=== PATIENT | female | born 1960 | race Caucasian/White ===

== ENCOUNTER → 2020-03-08 | Outpatient (CLI) | payer MEDICAID, SELFPAY | LOC: M OUTALCOH 07:59 | PROVIDERS: ATTEND Psychiatry & Neurology Addiction Medicine | DX: F10.20 Alcohol dependence, uncomplicated (principal) ==

== ENCOUNTER 2020-03-28 05:15 | Inpatient (IN) | payer MEDICAID ==
[~2020-03-28] VITALS: Ht 154.9 cm; Wt 84.1 kg
[2020-03-28] VITALS (11 sets, daily range): BP systolic 101–125; BP diastolic 59–88
[2020-03-28] MEDS ORDERED: VITA100T28 PO (05:22)
[2020-03-28] MEDS ORDERED: SPIR-10 PO (05:22)
[2020-03-28] MEDS ORDERED: MUPI2OI (05:22)
[2020-03-28] MEDS ORDERED: LACT10SO (05:22)
[2020-03-28] MEDS ORDERED: POTA20TA6 PO (05:22)
[2020-03-28] MEDS ORDERED: FOLI1TAB11 PO (05:22)
[2020-03-28] MEDS ORDERED: FURO20TA2 PO (05:22)
[2020-03-28 05:53] LABS: BASO # 0.1 10^3/uL (0.0-0.2); BASO % 1.2 % (0.0-1.0); EOS # 0.1 10^3/uL (0.0-0.5); EOS % 1.8 % (0.0-3.0); HEMATOCRIT 34.7 % (36.0-47.0); HEMOGLOBIN 12.1 g/dl (12.0-15.5); LYMPH # 1.3 10^3/uL (1.5-5.0); LYMPH % 17.2 % (24.0-44.0); MEAN CORPUSCULAR HEMOGLOBIN 35.8 pg (27.0-33.0); MEAN CORPUSCULAR HGB CONC 34.9 g/dl (32.0-36.5); MEAN CORPUSCULAR VOLUME 102.7 fl (80.0-96.0); MONO # 1.2 10^3/uL (0.0-0.8); MONO % 15.4 % (0.0-5.0); PLATELET COUNT, AUTOMATED 126 10^3/uL (150-450); RED BLOOD COUNT 3.38 10^6/uL (4.00-5.40); WHITE BLOOD COUNT 7.8 10^3/uL (4.0-10.0)
[2020-03-28 06:04] LABS: INR 1.87; PROTHROMBIN TIME 21.3 SECONDS (11.8-14.0)
[2020-03-28 06:05] LABS: PARTIAL THROMBOPLASTIN TIME 44.4 SECONDS (25.0-38.4)
--- NOTE | 2020-03-28 06:44 | REP ---
Clinical: Cough and dyspnea. Comparison: None. Findings: Very subtle right basilar atelectasis and possible small right pleural effusion require correlation with auscultation. Remainder of lung larsen are well-aerated and clear. The mediastinum and cardiac silhouette are normal. No pneumothorax. Skeletal structures are intact. Impression: Subtle right basilar atelectasis and possible small right pleural effusion suspected. Electronically Signed by Harshal Vaughn MD 03/28/2020 06:36 A
[2020-03-28 06:58] LABS: ALBUMIN 2.5 GM/DL (3.2-5.2); ALT/SGPT 43 U/L (12-78); BILIRUBIN,DIRECT 2.6 MG/DL (0.0-0.2); BILIRUBIN,TOTAL 4.8 MG/DL (0.2-1.0); BLOOD UREA NITROGEN 8 MG/DL (7-18); CALCIUM LEVEL 8.2 MG/DL (8.5-10.1); CARBON DIOXIDE LEVEL 26 MEQ/L (21-32); CHLORIDE LEVEL 102 MEQ/L (98-107); CPK CREATINE PHOSPHOKINASE 92 U/L (26-192); CREATININE FOR GFR 0.59 MG/DL (0.55-1.30); GLOMERULAR FILTRATION RATE > 60.0 (>51); GLUCOSE, FASTING 95 MG/DL (70-100); MB/CK RELATIVE INDEX 2.17 (< OR =4); NT-PRO BNP 96 PG/ML (<125); POTASSIUM SERUM 3.9 MEQ/L (3.5-5.1); SODIUM LEVEL 133 MEQ/L (136-145); TOTAL PROTEIN 7.1 GM/DL (6.4-8.2); TROPONIN I 0.04 NG/ML (< 0.10)
[2020-03-28] MEDS ORDERED: NICOTINE 14 MG/24 HR TRANSDERMAL TD ONE (07:30)
[2020-03-28] MEDS ORDERED: MAGN64TASA PO (07:37)
[2020-03-28] MEDS ORDERED: LACT20EL PO (07:37)
[2020-03-28] MEDS ORDERED: FUROSEMIDE 40MG/4ML VIAL (J1940) IV ONE (07:45)
[2020-03-28] MEDS ORDERED: PHYTONADIONE 5 MG TAB PO ONE (08:30)
--- NOTE | 2020-03-28 08:32 | ECGEPIP ---
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
--- NOTE | 2020-03-28 08:33 | REP ---
Clinical: Abnormal liver function tests. Ascites. Technique: Real time lerma scale ultrasound examination using curved array transducer. Findings: The liver demonstrates a very subtle nodular contour along with mildly dilated main portal vein at approximately 14 mm diameter with normal hepatopetal flow. Moderate ascites noted. The spleen is enlarged and measures roughly 13 x 13 x 5.8 cm. Findings are most suggestive of underlying cirrhosis with portal venous hypertension. The pancreas is incompletely evaluated due to interposed bowel gas but visualized portions appear normal. The gallbladder demonstrates mild wall thickening which may be secondary to chronic ascites and cirrhosis. No cholelithiasis or biliary ductal dilatation is appreciated and the common bile duct measures 5.3 mm diameter. The bilateral kidneys are normal in reniform shape without hydronephrosis. Right kidney measures 11.7 x 5.8 x 4.5 cm. Left kidney measures 11.5 x 4.9 x 5.1 cm. Visualized abdominal aorta appears normal. Impression: 1. Findings suggesting cirrhosis and portal venous hypertension including splenomegaly and moderate ascites. Electronically Signed by Harshal Vaughn MD 03/28/2020 08:25 A
[2020-03-28 10:08] LABS: HEPATITIS B SURFACE ANTIGEN NEGATIVE (NEGATIVE)
[2020-03-28 10:36] LABS: HEPATITIS C VIRUS ABY INDEX 0.4 INDEX (<0.8)
[2020-03-28 10:37] LABS: HEPATITIS B CORE ANTIBODY IGM NEGATIVE (NEGATIVE)
[2020-03-28] MEDS: LACTULOSE 20 GM/30 ML SYRUP UD PO SCH ×2 (11:44→22:16)
[2020-03-28] MEDS: THIAMINE 100 MG TAB PO SCH (11:44)
[2020-03-28] MEDS: FOLIC ACID 1 MG TAB PO SCH (11:44)
[2020-03-28] MEDS: SPIRONOLACTONE 50 MG TAB PO SCH (11:44)
[2020-03-28 15:22] LABS: APPEARANCE, BODY FLUID CLEAR (CLEAR); ASCITES FL COLOR YELLOW (COLORLESS); SOURCE, BODY FLUID ASCITES
--- NOTE | 2020-03-28 15:45 | HPEPDOC ---
General Date of Admission Mar 28, 2020 at 09:06 Date of Service: Mar 28, 2020 Chief Complaint The patient is a 60-year-old female admitted with a reason for visit of Decompensation Of Cirrhosis Of Liver. Source: Patient History of Present Illness 60 year old female chronic alcoholic who has not seen any Physician in years started having swelling of the legs with pain in the left knee since december 2019. went to urgent care was managed for knee pain with Ibuprofens. Then noted increasing weight from January with swelling of the abdomen ultimately became really worse 2 weeks ago so went to [place] [facility] and from there was transferred to [facility] where she was admitted for 5 days diagnosed with cirrhosis of liver and had paracentesis done with removal of 7 liters last week. Was Discharged 5 days ago. however after coming home her abdominal swelling was back again and leg swelling worsened and she gained 10 lbs since discharge so narda to urgent care here in [place] yesterday and was instructed to come to the ED. She complained of pain in the abdomen which is stretching kind all over the abdomen about 3/10 in intensity, associated with pressure upward into the chest causing difficulty in breathing. She is also having 2 to 3 loose bowel movements from the lactulose. She was admitted for decompensated cirrhosis. Home Medications Scheduled Folic Acid (Folic Acid) 1 Mg Tablet, 1 MG PO DAILY, (Reported) Furosemide (Furosemide) 20 Mg Tablet, 20 MG PO DAILY, (Reported) Lactulose (Lactulose) 10 Gm/15 Ml Solution, 30 MG PO BID, (Reported) Magnesium Chloride (Mag64) 64 Mg Tablet.dr, 64 MG PO BID, (Reported) Potassium Chloride (Potassium Chloride) 20 Meq Tab.er.prt, 20 MEQ PO DAILY, (Reported) Spironolactone (Spironolactone) 25 Mg Tablet, 25 MG PO DAILY, (Reported) Thiamine Mononitrate (Vit B1) (Vitamin B-1) 100 Mg Tablet, 100 MG PO DAILY, (Reported) Allergies Coded Allergies: No Known Allergies (Unverified , 03/28/20) Past Medical History Medical History Alcoholic cirrhosis , Heavy alcohol use for years. Family History Significant Family History: Cancer (maternal uncle), Heart disease (father) Social History * Smoker: current smoker Alcohol: sober (for 11 days. ) Drugs: denies A-FIB/CHADSVASC A-FIB History Current/History of A-Fib/PAF?: No Review of Systems Constitutional: Reports: Fatigue; Denies: Chills, Fever, Night Sweats Eyes: Denies: Pain, Vision change ENT: Denies: Head Aches, Ear Pain, Dysphagia Skin: Denies: Rash, Lesions, Breakdown Pulmonary: Reports: Dyspnea Cardiovascular: Reports: Edema; Denies: Chest Pain, Palpitations, Orthopnea, Paroxysmal Noc. Dyspnea, Lt Headedness Gastrointestinal: Reports: Abdominal Pain, Diarrhea Genitourinary: Denies: Dysuria, Frequency, Incontinence, Retention Hematologic: Denies: Bruising, Bleeding Excessively Musculoskeletal: Reports: Back Pain, Joint Pain; Denies: Neck Pain, Muscle Pain, Spasms Physical Examination General Exam: Positive: Alert, Cooperative, No Acute Distress Eye Exam: Positive: PERRLA, Conjunctiva & lids normal, EOMI; Negative: Sclera icteric ENT Exam: Positive: Atraumatic, Mucous membr. moist/pink, Pharynx Normal Neck Exam: Positive: Supple; Negative: JVD, thyromegaly Chest Exam: Positive: Clear to auscultation, Normal air movement Heart Exam: Positive: Rate Normal, Regular Rhythm, Normal S1, Normal S2; Negative: Murmurs, Rubs Abdomen Exam: Positive: Normal bowel sounds, Soft, Other (massive ascites.); Negative: Hepatospenomegaly Extremity Exam: Positive: Edema Skin Exam: Positive: Nl turgor and temperature; Negative: Breakdown, Lesion Vital Signs Vital Signs Date Time Temp Pulse Resp B/P (MAP) Pulse Ox O2 Delivery O2 Flow Rate FiO2 03/28/20 15:06 110 18 100 Room Air 03/28/20 14:11 97.6 03/28/20 14:00 109/73 Laboratory Data Labs 24H Laboratory Tests 2 03/28/20 05:44: Immature Granulocyte % (Auto) 0.4, Neutrophils (%) (Auto) 64.0, Lymphocytes (%) (Auto) 17.2L, Monocytes (%) (Auto) 15.4H, Eosinophils (%) (Auto) 1.8, Basophils (%) (Auto) 1.2H, Neutrophils # (Auto) 5.0, Lymphocytes # (Auto) 1.3L, Monocytes # (Auto) 1.2H, Eosinophils # (Auto) 0.1, Basophils # (Auto) 0.1, Nucleated Red Blood Cells % (auto) 0.0, Prothrombin Time 21.3H, Prothromb Time International Ratio 1.87, Activated Partial Thromboplast Time 44.4H, Anion Gap 5L, Glomerular Filtration Rate > 60.0, Calcium Level 8.2L, Total Bilirubin 4.8H, Direct Bilirubin 2.6H, Aspartate Amino Transf (AST/SGOT) 115H, Alanine Aminotransferase (ALT/SGPT) 43, Alkaline Phosphatase 152H, Ammonia 15, Total Creatine Kinase 92, Creatine Kinase MB 2.0, Creatine Kinase MB Relative Index 2.17, Troponin I 0.04, PZ-Dqp-F-Type Natriuretic Peptide 96, Total Protein 7.1, Albumin 2.5L, Albumin/Globulin Ratio 0.5L, Hepatitis B Surface Antigen NEGATIVE, Hepatitis B Core IgM Antibody NEGATIVE, Hepatitis C Antibody Index 0.4 03/28/20 15:00: CBC/BMP Laboratory Tests 03/28/20 05:44 Microbiology Microbiology 03/28/20 Gram Stain, Received Pending 03/28/20 Body Fluid Culture, Received Pending Assessment/Plan 60 year old female chronic alcoholic who has not seen any Physician in years started having swelling of the legs with pain in the left knee since december 2019. went to urgent care was managed for knee pain with Ibuprofens. Then noted increasing weight from January with swelling of the abdomen ultimately became really worse 2 weeks ago so went to [place] [facility] and from there was transferred to [facility] where she was admitted for 5 days diagnosed with cirrhosis of liver and had paracentesis done with removal of 7 liters last week. Was Discharged 5 days ago. however after coming home her abdominal swelling was back again and leg swelling worsened and she gained 10 lbs since discharge so narda to urgent care here in [place] yesterday and was instructed to come to the ED. She complained of pain in the abdomen which is stretching kind all over the a bdomen about 3/10 in intensity, associated with pressure upward into the chest causing difficulty in breathing. She is also having 2 to 3 loose bowel movements from the lactulose. She was admitted for decompensated cirrhosis. Decompensated Cirrhosis with ascites, portal hypertension, coagulopathy Alcoholic MELD-S score is 23. will arrange for paracentesis today. US abdomen shows portal hypertension and moderate ascites. hepatitis panel negative. received lasix this am continue with spironolactone 50 and lasix 40 mg daily. continue with lactulose GI consult Coagulopathy related to cirrhosis will give FFP and vit k. Hyponatremia due to cirrhosis. Alcohol use disorder sober for 11 days. continue thiamine and folate. Plan / VTE VTE Prophylaxis Ordered?: Yes DELL PRECIADO MD Mar 28, 2020 15:45
[2020-03-28 16:02] LABS: SOURCE, BODY FLUID ALBUMIN ASCITES; SOURCE, BODY FLUID GLUCOSE ASCITES; SOURCE, BODY FLUID TOT PROTEIN ASCITES
--- NOTE | 2020-03-28 17:19 | REP ---
Ultrasound-guided paracentesis The procedure was performed under the direct supervision of Dr. Galan. The risks and benefits of the procedure were explained to the patient and informed consent was obtained. The largest pocket of fluid was localized in the left flank using ultrasound guidance. The skin was prepped and draped in a sterile fashion. 1% lidocaine was used as a local anesthetic. An 8-Polish multi side-hole catheter was inserted using trocar technique. 10,400 ml of yellow fluid was withdrawn with a sample sent to the lab for analysis. The patient tolerated the procedure well and there were no immediate complications. After the appropriate amount of monitored convalescence the patient was discharged from the department. Electronically Signed by HECTOR Garcia 03/28/2020 04:15 P Electronically Signed by Drew Galan MD 03/28/2020 05:08 P
[2020-03-28 17:58] LABS: INR 1.73
[2020-03-28] MEDS: PERCOCET 5MG/325MG TAB PO PRN (23:44)
[2020-03-29] VITALS (10 sets, daily range): BP systolic 105–138; BP diastolic 62–78
[2020-03-29 06:31] LABS: BASO # 0.1 10^3/uL (0.0-0.2); BASO % 0.8 % (0.0-1.0); EOS # 0.3 10^3/uL (0.0-0.5); EOS % 3.4 % (0.0-3.0); HEMOGLOBIN 11.4 g/dl (12.0-15.5); LYMPH # 1.8 10^3/uL (1.5-5.0); LYMPH % 23.4 % (24.0-44.0); MEAN CORPUSCULAR HEMOGLOBIN 36.2 pg (27.0-33.0); MEAN CORPUSCULAR HGB CONC 34.5 g/dl (32.0-36.5); MEAN CORPUSCULAR VOLUME 104.8 fl (80.0-96.0); MONO # 1.1 10^3/uL (0.0-0.8); MONO % 14.5 % (0.0-5.0); NEUTROPHILS # 4.4 10^3/uL (1.5-8.5); NEUTROPHILS % 57.5 % (36.0-66.0); PLATELET COUNT, AUTOMATED 119 10^3/uL (150-450); RED BLOOD COUNT 3.15 10^6/uL (4.00-5.40); WHITE BLOOD COUNT 7.6 10^3/uL (4.0-10.0)
[2020-03-29 06:43] LABS: INR 1.82; PROTHROMBIN TIME 20.8 SECONDS (11.8-14.0)
[2020-03-29 06:57] LABS: ALBUMIN 2.5 GM/DL (3.2-5.2); ALT/SGPT 33 U/L (12-78); BILIRUBIN,TOTAL 5.2 MG/DL (0.2-1.0); BLOOD UREA NITROGEN 9 MG/DL (7-18); CALCIUM LEVEL 8.2 MG/DL (8.5-10.1); CARBON DIOXIDE LEVEL 27 MEQ/L (21-32); CHLORIDE LEVEL 104 MEQ/L (98-107); CREATININE FOR GFR 0.53 MG/DL (0.55-1.30); GLOMERULAR FILTRATION RATE > 60.0 (>51); GLUCOSE, FASTING 86 MG/DL (70-100); POTASSIUM SERUM 3.8 MEQ/L (3.5-5.1); SODIUM LEVEL 136 MEQ/L (136-145); TOTAL PROTEIN 6.3 GM/DL (6.4-8.2)
[2020-03-29] MEDS ORDERED: FUROSEMIDE 40MG/4ML VIAL (J1940) IV SCH (09:00)
[2020-03-29] MEDS: THIAMINE 100 MG TAB PO SCH (10:12)
[2020-03-29] MEDS: FOLIC ACID 1 MG TAB PO SCH (10:12)
[2020-03-29] MEDS: LACTULOSE 20 GM/30 ML SYRUP UD PO SCH ×4 (10:12→21:40)
[2020-03-29] MEDS: NICOTINE 14 MG/24 HR TRANSDERMAL TD SCH (10:13)
[2020-03-29] MEDS: SPIRONOLACTONE 50 MG TAB PO SCH (10:13)
[2020-03-29] MEDS: SENOKOT S TAB PO SCH ×2 (11:32→21:42)
--- NOTE | 2020-03-29 13:32 | IPNPDOC ---
Text Note Date of Service The patient was seen on 03/29/20. NOTE Subjective: Feeling much better today. Sob is resolved. Had paracentesis yest erday > 10 liters removed. Started on albumin after paracentesis. Physical Exam Vitals: As below General Exam: Positive: Alert, Cooperative, No Acute Distress Eye Exam: Positive: PERRLA, Conjunctiva & lids normal, EOMI; Negative: Sclera icteric ENT Exam: Positive: Atraumatic, Mucous membr. moist/pink, Pharynx Normal Neck Exam: Positive: Supple; Negative: JVD, thyromegaly Chest Exam: Positive: Clear to auscultation, Normal air movement Heart Exam: Positive: Rate Normal, Regular Rhythm, Normal S1, Normal S2; Negative: Murmurs, Rubs Abdomen Exam: Positive: Normal bowel sounds, Soft, Other (massive ascites.); Negative: Hepatospenomegaly Extremity Exam: Positive: Edema Skin Exam: Positive: Nl turgor and temperature; Negative: Breakdown, Lesion Labs and Radiology: reviewed. Assessment and Plan: 60 year old female chronic alcoholic who has not seen any Physician in years started having swelling of the legs with pain in the left knee since december 2019. went to urgent care was managed for knee pain with Ibuprofens. Then noted increasing weight from January with swelling of the abdomen ultimately became really worse 2 weeks ago so went to [place] ED and from there was transferred to [facility] where she was admitted for 5 days diagnosed with cirrhosis of liver and had paracentesis done with removal of 7 liters last week. Was Discharged 5 days ago. however after coming home her abdominal swelling was back again and leg swelling worsened and she gained 10 lbs since discharge so narda to urgent care here in [place] yesterday and was instructed to come to the ED. She complained of pain in the abdomen which is stretching kind all over the abdomen about 3/10 in intensity, associated with pressure upward into the chest causing difficulty in breathing. She is also having 2 to 3 loose bowel movements from the lactulose. She was admitted for decompensated cirrhosis. Decompensated Cirrhosis with ascites, portal hypertension, coagulopathy Alcoholic MELD-S score is 23. US abdomen shows portal hypertension and moderate ascites. hepatitis panel negative. Paracentesis with > 10 l fluid removal on 03/28/20 continue albumin 25% continue lasix with spironolactone 50 Will probably need weekly paracentesis for now. Will have to set up for outpatient paracentesis continue with lactulose GI consult Coagulopathy related to cirrhosis INR remains at 1.8 not corrected after FFP and Vit K. Hyponatremia due to cirrhosis. Alcohol use disorder sober for 12 days. continue thiamine and folate. VS,Fishbone, I+O VS, Fishbone, I+O Laboratory Tests 03/29/20 06:03 Vital Signs Date Time Temp Pulse Resp B/P (MAP) Pulse Ox O2 Delivery O2 Flow Rate FiO2 03/29/20 13:10 97.2 80 16 125/76 99 Room Air I&O- Last 24 Hours up to 6 AM 03/29/20 06:00 Intake Total 1627.0 ml Output Total 975 ml Balance 652.0 ml DELL PRECIADO MD Mar 29, 2020 13:32
[2020-03-29] MEDS: FUROSEMIDE 40MG/4ML VIAL (J1940) IV SCH (17:28)
--- NOTE | 2020-03-29 19:07 | CR.PDOC ---
General Date of Consultation: Mar 29, 2020 Referring Provider: DELL HARDEN MD Attending Physician: ZION LECHUGA MD Consultation Primary physician/ hospitalist: Dr. Harden Reason for consult: Decompensated liver cirrhosis. HPI: 60 year old female patient with chronic heavy alcohol use, liver cirrhosis, recently moved from [place] to [place], not following with any Physician in years was admitted to [facility] for worsening swelling of the abdomen and legs. Patient reports she was recently in [facility] for tense abdominal distension for which she had paracentesis with removal of 7 liters (last week). She reports since coming home her abdominal swelling was back again and leg swelling worsened and she gained 10 lbs since discharge so was admitted for decompensated cirrhosis and had another therapeutic parecentesis in [facility]. Patient reports significant improvement in abdominal distention but still more than her baseline.. Patient just quit alcohol 11 days ago. Pertinent negative GI symptoms: Patient denies fever, sick contacts, recent travel, nausea, vomiting, diarrhea, loss of appetite, early satiety or unintentional weight loss. No history of hematemesis, melena or hematochezia. Review of Systems: GI: as stated above CVS: No chest pain, No palpitations, No leg swelling. RS: No Shortness of breath, No Wheezing, no cough MACHINE SEWER: No dizziness, No motor weakness, No sensory problems Hematology: No bruising, No gum bleeding, Musculoskeletal: No joint pain, ambulating well. Skin: No rash : No hematuria, No burning sensation of the urine ENT: No ear discharge/ pain, No dysphagia. Eyes: No photophobia. Jaundice Home medications: reviewed. Antithrombotic agents - None Medical h/o: As above. Surgical h/o: None on abdomen. Social h/o: Alcohol Heavy alcohol use, quit 11 days ago. , smoking Denies, IVDA/ drugs Denies Family h/o of GI cancers - None Prior Endoscopies: None Prior GI evaluations: Used to follow with [facility] in [place]. Exam: Vitals: reviewed General: Alert and oriented x 3, Mild distress from abdominal distention. HEENT: NO pallor, no icterus. Normal oropharynx, NO cervical lymph nodes. Chest: symmetric with bilateral clear air entry, CVS: S1, S2 heard, normal, no murmurs . Abdomen: Mild to moderate distension after therapeutic paracentesis, distended, no surgical scars, soft, non-tender, no palpable masses, normal bowel sounds heard. Rectal exam: Patient refused. Extremities: 3+ pitting pedal edema, pulses palpable. MACHINE SEWER: no focal motor or sensory deficits. Moves all extremities Skin: no rash. Labs: reviewed. Imaging: reviewed. Impression: - Decompensated liver cirrhosis ( CTP , MELD- NA ) Likely etiology alcohol, with uncontrolled tense ascites s/p therapeutic paracentesis today in [facility], No prior EGD, No prior encephalopathy. Recommendations: - Patient educated about the test results, possible differential diagnoses and All questions answered. - Complete alcohol cessation. Patient is recommended rehab and other resources available. Patient said she want to do it herself and she did not drink any for 11 days. - Low sodium diet ( < 2gm per day). - Titrate the diuretics suggest Lasix 40 mg twice daily and spironolactone 100 mg twice daily for now. - Close monitoring of the renal function Chem 7, Urine lytes and UA. - Nutrition supplements Thiamine, folic acid and high protein diet. - Patient educated to take high fiber diet to avoid constipation. If developing constipation to take OTC laxatives or fiber supplements. - Elective EGD for evaluation of varices. - Upon discharge please give follow upin GI clinic in 2 weeks.. Plan of care discussed with patient and primary team. Patient verbalized understanding and agreed with the plan. Vital Signs/I&O Vital Signs Date Time Temp Pulse Resp B/P (MAP) Pulse Ox O2 Delivery O2 Flow Rate FiO2 03/29/20 17:34 96.2 92 16 125/77 100 Room Air I&O- Last 24 Hours up to 6 AM 03/29/20 06:00 Intake Total 1627.0 ml Output Total 975 ml Balance 652.0 ml Laboratory Data Labs 24H Laboratory Tests 2 03/29/20 06:03: Immature Granulocyte % (Auto) 0.4, Neutrophils (%) (Auto) 57.5, Lymphocytes (%) (Auto) 23.4L, Monocytes (%) (Auto) 14.5H, Eosinophils (%) (Auto) 3.4H, Basophils (%) (Auto) 0.8, Neutrophils # (Auto) 4.4, Lymphocytes # (Auto) 1.8, Monocytes # (Auto) 1.1H, Eosinophils # (Auto) 0.3, Basophils # (Auto) 0.1, Nucleated Red Blood Cells % (auto) 0.0, Prothrombin Time 20.8H, Prothromb Time International Ratio 1.82, Anion Gap 5L, Glomerular Filtration Rate > 60.0, Calcium Level 8.2L, Total Bilirubin 5.2H, Aspartate Amino Transf (AST/SGOT) 76H, Alanine Aminotransferase (ALT/SGPT) 33, Alkaline Phosphatase 114, Total Protein 6.3L, Albumin 2.5L, Albumin/Globulin Ratio 0.7L CBC/BMP Laboratory Tests 03/29/20 06:03 Microbiology Microbiology 03/28/20 Gram Stain - Final, Resulted 03/28/20 Body Fluid Culture, Resulted Pending Allergies Coded Allergies: No Known Allergies (Unverified , 03/28/20) Home Medications Scheduled Docusate Sodium (Colace) 100 Mg Capsule, 100 MG PO BID for 30 Days, #60 Folic Acid (Folic Acid) 1 Mg Tablet, 1 MG PO DAILY, (Reported) Furosemide (Lasix) 40 Mg Tablet, 40 MG PO BID, #60 Please take at 8 am and 4 pm. Lactulose (Lactulose) 10 Gm/15 Ml Solution, 30 MG PO BID, (Reported) Spironolactone (Aldactone) 50 Mg Tablet, 100 MG PO DAILY, #30 Thiamine Mononitrate (Vit B1) (Vitamin B-1) 100 Mg Tablet, 100 MG PO DAILY, (Rep orted) ZION LECHUGA MD Mar 29, 2020 19:07
[2020-03-29] MEDS: PERCOCET 5MG/325MG TAB PO PRN (23:13)
[2020-03-30 01:03] VITALS: BP 101/56
[2020-03-30 05:20] VITALS: BP 107/71
[2020-03-30 06:00] VITALS: BP 100/57
[2020-03-30 06:10] LABS: BASO # 0.1 10^3/uL (0.0-0.2); BASO % 0.9 % (0.0-1.0); EOS # 0.1 10^3/uL (0.0-0.5); EOS % 2.1 % (0.0-3.0); HEMATOCRIT 31.6 % (36.0-47.0); HEMOGLOBIN 10.7 g/dl (12.0-15.5); LYMPH # 1.3 10^3/uL (1.5-5.0); LYMPH % 19.6 % (24.0-44.0); MEAN CORPUSCULAR HEMOGLOBIN 35.2 pg (27.0-33.0); MEAN CORPUSCULAR HGB CONC 33.9 g/dl (32.0-36.5); MEAN CORPUSCULAR VOLUME 103.9 fl (80.0-96.0); MONO # 0.9 10^3/uL (0.0-0.8); MONO % 12.9 % (0.0-5.0); NEUTROPHILS # 4.3 10^3/uL (1.5-8.5); NEUTROPHILS % 64.1 % (36.0-66.0); PLATELET COUNT, AUTOMATED 110 10^3/uL (150-450); RED BLOOD COUNT 3.04 10^6/uL (4.00-5.40); WHITE BLOOD COUNT 6.7 10^3/uL (4.0-10.0)
[2020-03-30 06:41] LABS: ALBUMIN 2.8 GM/DL (3.2-5.2); ALT/SGPT 31 U/L (12-78); BILIRUBIN,TOTAL 5.1 MG/DL (0.2-1.0); BLOOD UREA NITROGEN 11 MG/DL (7-18); CARBON DIOXIDE LEVEL 28 MEQ/L (21-32); CHLORIDE LEVEL 101 MEQ/L (98-107); CREATININE FOR GFR 0.64 MG/DL (0.55-1.30); GLOMERULAR FILTRATION RATE > 60.0 (>51); GLUCOSE, FASTING 101 MG/DL (70-100); POTASSIUM SERUM 3.3 MEQ/L (3.5-5.1); SODIUM LEVEL 137 MEQ/L (136-145); TOTAL PROTEIN 6.2 GM/DL (6.4-8.2)
[2020-03-30 07:32] VITALS: BP 94/64
[2020-03-30] MEDS ORDERED: COLA100C5 PO (07:54)
[2020-03-30] MEDS ORDERED: LASI40TA9 PO (07:54)
[2020-03-30] MEDS ORDERED: ALDA50TA2 PO (07:54)
[2020-03-30] MEDS ORDERED: SPIRONOLACTONE 50 MG TAB PO SCH (09:00)
[2020-03-30] MEDS: NICOTINE 14 MG/24 HR TRANSDERMAL TD SCH (09:00)
[2020-03-30] MEDS: LACTULOSE 20 GM/30 ML SYRUP UD PO SCH (09:32)
[2020-03-30] MEDS: FUROSEMIDE 40MG/4ML VIAL (J1940) IV SCH (09:33)
[2020-03-30] MEDS: FOLIC ACID 1 MG TAB PO SCH (09:35)
[2020-03-30] MEDS: THIAMINE 100 MG TAB PO SCH (09:35)
[2020-03-30] MEDS: SENOKOT S TAB PO SCH (09:35)
--- NOTE | 2020-03-31 06:55 | DS.PDOC ---
Discharge Summary General Date of Admission Mar 28, 2020 at 09:06 Date of Discharge 03/30/20 Discharge Summary PROCEDURES PERFORMED DURING STAY: Paracentesis with removal of 10.3 L DISCHARGE DIAGNOSES: Decompensated Alcoholic cirrhosis Coagulopathy related to cirrhosis Hyponatremia Alcohol use disorder COMPLICATIONS/CHIEF COMPLAINT: Decompensation Of Cirrhosis Of Liver. HOSPITAL COURSE: Labs and Radiology: reviewed. Assessment and Plan: 60 year old female chronic alcoholic who has not seen any Physician in years started having swelling of the legs with pain in the left knee since december 2019. went to urgent care was managed for knee pain with Ibuprofen. Then noted increasing weight from January with swelling of the abdomen ultimately became really worse 2 weeks ago so went to [place] ED and from there was transferred to [facility] where she was admitted for 5 days diagnosed with cirrhosis of liver and had paracentesis done with removal of 7 liters last week. Was Discharged 5 days ago. however after coming home her abdominal swelling was back again and leg swelling worsened and she gained 10 lbs since discharge so narda to urgent care here in [place] yesterday and was instructed to come to the ED. She complained of pain in the abdomen which is stretching kind all over the abdomen about 3/10 in intensity, associated with pressure upward into the chest causing difficulty in breathing. She is also having 2 to 3 loose bowel movements from the lactulose. She was admitted for decompensated cirrhosis. Decompensated Cirrhosis with ascites, portal hypertension, coagulopathy Alcoholic MELD-S score is 23. US abdomen shows portal hypertension and moderate ascites. hepatitis panel negative. Paracentesis with > 10 l fluid removal on 03/28/20 continue lasix with spironolactone 100 continue with lactulose Seen by GI, follow up set up. Coagulopathy related to cirrhosis INR remains at 1.8 not corrected after FFP and Vit K. Hyponatremia due to cirrhosis. Alcohol use disorder sober for 12 days. continue thiamine and folate. DISCHARGE MEDICATIONS: Please see below. ALLERGIES: Please see below. PHYSICAL EXAMINATION ON DISCHARGE: VITAL SIGNS: Please see below. General Exam: Positive: Alert, Cooperative, No Acute Distress Eye Exam: Positive: PERRLA, Conjunctiva & lids normal, EOMI; Negative: Sclera icteric ENT Exam: Positive: Atraumatic, Mucous membr. moist/pink, Pharynx Normal Neck Exam: Positive: Supple; Negative: JVD, thyromegaly Chest Exam: Positive: Clear to auscultation, Normal air movement Heart Exam: Positive: Rate Normal, Regular Rhythm, Normal S1, Normal S2; Negative: Murmurs, Rubs Abdomen Exam: Positive: Normal bowel sounds, Soft, Other (massive ascites.); Negative: Hepatospenomegaly Extremity Exam: Positive: Edema Skin Exam: Positive: Nl turgor and temperature; Negative: Breakdown, Lesion LABORATORY DATA: Please see below. ACTIVITY: [As tolerated]. DIET: 2 gm sodium, fluid restriction 1.5 liters. DISPOSITION: 01 Home, Self-Care. DISCHARGE INSTRUCTIONS: PMD in 1 week, Dr Pedraza in 2 weeks DISCHARGE CONDITION: [Stable]. TIME SPENT ON DISCHARGE: 35 minutes. Vital Signs/I&Os Vital Signs Date Time Temp Pulse Resp B/P (MAP) Pulse Ox O2 Delivery O2 Flow Rate FiO2 03/30/20 07:32 97.8 77 18 94/64 100 Room Air I&O- Last 24 Hours up to 6 AM 03/31/20 06:00 Intake Total 290.0 ml Output Total 0 ml Balance 290.0 ml Microbiology Microbiology 03/28/20 Gram Stain - Final, Complete 03/28/20 Body Fluid Culture - Final, Complete Discharge Medications Scheduled Docusate Sodium (Colace) 100 Mg Capsule, 100 MG PO BID Folic Acid (Folic Acid) 1 Mg Tablet, 1 MG PO DAILY, (Reported) Furosemide (Lasix) 40 Mg Tablet, 40 MG PO BID Please take at 8 am and 4 pm. Lactulose (Lactulose) 10 Gm/15 Ml Solution, 30 MG PO BID, (Reported) Spironolactone (Aldactone) 50 Mg Tablet, 100 MG PO DAILY Thiamine Mononitrate (Vit B1) (Vitamin B-1) 100 Mg Tablet, 100 MG PO DAILY, (Reported) Allergies Coded Allergies: No Known Allergies (Unverified , 03/28/20) DELL PRECIADO MD Mar 31, 2020 06:55
== END 2020-03-30 11:32 | disposition home or self-care (01) | DRG 280 ==
LOC: M ED 05:15 → M ED INP 09:06 → ENRESERV 09:25 → M MSPAV 10:40
PROVIDERS: ADMIT Internal Medicine Nephrology; ATTEND Internal Medicine Nephrology
PROC: 0W9G30Z Drainage of Peritoneal Cavity with Drainage Device, Percutaneous Approach (ICD-10-PCS; principal; 2020-03-28 14:00)
DX: K70.31 Alcoholic cirrhosis of liver with ascites (principal); D68.4 Acquired coagulation factor deficiency; K76.6 Portal hypertension; E87.1 Hypo-osmolality and hyponatremia; Z79.899 Other long term (current) drug therapy

== ENCOUNTER 2020-04-05 08:00 | Emergency (ER) | payer MEDICAID ==
[~2020-04-05] VITALS: Ht 154.9 cm; Wt 81.9 kg
[~2020-04-05 08:00] MED LIST: ALDA50TA2 PO; COLA100C5 PO; FOLI1TAB11 PO; FURO20TA2 PO; LACT10SO; LACT20EL PO; LASI40TA9 PO; MAGN64TASA PO; MUPI2OI; POTA20TA6 PO; SPIR-10 PO; VITA100T28 PO
[2020-04-05 09:13] LABS: BASO # 0.1 10^3/uL (0.0-0.2); BASO % 0.9 % (0.0-1.0); EOS # 0.3 10^3/uL (0.0-0.5); EOS % 3.9 % (0.0-3.0); HEMATOCRIT 36.8 % (36.0-47.0); HEMOGLOBIN 13.1 g/dl (12.0-15.5); LYMPH # 1.1 10^3/uL (1.5-5.0); LYMPH % 14.8 % (24.0-44.0); MEAN CORPUSCULAR HGB CONC 35.6 g/dl (32.0-36.5); MEAN CORPUSCULAR VOLUME 101.1 fl (80.0-96.0); MONO # 0.8 10^3/uL (0.0-0.8); MONO % 10.7 % (0.0-5.0); NEUTROPHILS # 5.3 10^3/uL (1.5-8.5); NEUTROPHILS % 69.2 % (36.0-66.0); PLATELET COUNT, AUTOMATED 121 10^3/uL (150-450); RED BLOOD COUNT 3.64 10^6/uL (4.00-5.40); WHITE BLOOD COUNT 7.7 10^3/uL (4.0-10.0)
[2020-04-05] MEDS ORDERED: FURO40TA2 PO (09:17)
[2020-04-05] MEDS ORDERED: SPIR50TA4 PO (09:17)
[2020-04-05] MEDS ORDERED: DOCU100C16 PO (09:18)
[2020-04-05 09:21] LABS: INR 1.95; PARTIAL THROMBOPLASTIN TIME 43.3 SECONDS (25.0-38.4)
[2020-04-05 09:24] LABS: ALBUMIN 2.9 GM/DL (3.2-5.2); ALT/SGPT 33 U/L (12-78); BILIRUBIN,DIRECT 2.3 MG/DL (0.0-0.2); BILIRUBIN,TOTAL 4.7 MG/DL (0.2-1.0); BLOOD UREA NITROGEN 8 MG/DL (7-18); CALCIUM LEVEL 8.6 MG/DL (8.5-10.1); CARBON DIOXIDE LEVEL 30 MEQ/L (21-32); CHLORIDE LEVEL 96 MEQ/L (98-107); CK-MB VALUE MASS 1.9 NG/ML (<3.6); CPK CREATINE PHOSPHOKINASE 65 U/L (26-192); CREATININE FOR GFR 0.74 MG/DL (0.55-1.30); GLOMERULAR FILTRATION RATE > 60.0 (>51); GLUCOSE, FASTING 98 MG/DL (70-100); LIPASE 427 U/L (73-393); MB/CK RELATIVE INDEX 2.92 (< OR =4); NT-PRO BNP 87 PG/ML (<125); POTASSIUM SERUM 3.2 MEQ/L (3.5-5.1); SODIUM LEVEL 134 MEQ/L (136-145); TOTAL PROTEIN 7.7 GM/DL (6.4-8.2); TROPONIN I 0.03 NG/ML (< 0.10)
[2020-04-05] MEDS ORDERED: SODIUM BICARBONATE 8.4% INJ 50MEQ 50 ML VIAL As Ordered ONE (11:31)
[2020-04-05] MEDS ORDERED: POTASSIUM CHLORIDE 10 MEQ SR TABLET PO ONE (14:00)
[2020-04-05 14:02] VITALS: BP 110/84
--- NOTE | 2020-04-05 15:12 | REP ---
Ultrasound-guided paracentesis The procedure was performed by HECTOR Alfredo, under the direct supervision of Dr. Conn. The risks and benefits of the procedure were explained to the patient and informed consent was obtained both verbally and written. Directly prior to the start of the procedure, a formal timeout was completed in the procedure room. Under ultrasound guidance, the largest pocket of fluid in the left flank was localized and skin was marked. The skin was then prepped and draped in a sterile fashion. 11 ml of buffered lidocaine was used as a local anesthetic. Using ultrasound guidance, an 8-Faroese multi side-hole catheter was inserted using trocar technique. 8,000 mL of dark yellow colored fluid was withdrawn and discarded. The patient tolerated the procedure well and there were no immediate complications. After the appropriate monitored convalescence the patient was discharged from the department. Reviewed by HECTOR Kearns 04/05/2020 01:14 P Electronically Signed by James Conn MD 04/05/2020 03:04 P
--- NOTE | 2020-04-05 21:19 | ECGEPIP ---
[facility] - ED Test Date: 2020-04-05 Pat Name: SANA LE Department: Room: - Gender: Female [employer]: : 1960 Requested By: NIKHIL Contreras PA-C Order Number: [id number] Reading MD: Rodrigo Sheth Measurements Intervals [place] Rate: 120 P: -49 OK: 234 QRS: -29 QRSD: 99 T: 52 QT: 400 QTc: 567 Interpretive Statements SINUS TACHYCARDIA WITH FIRST DEGREE AV BLOCK ANTERIOR MYOCARDIAL INFARCTION, PROBABLY OLD INFERIOR MYOCARDIAL INFARCTION, PROBABLY OLD SIMILAR TO 03/28/20 Electronically Signed on 04-05-2020 21:19:18 EDT by Rodrigo Sheth
--- NOTE | 2020-04-06 11:03 | REP ---
Chest x-ray: Two views. History: Abdomen pain. Comparison chest x-ray: March 28, 2020. Findings: Heart is not enlarged. The lungs are well inflated and clear. The pleural angles are sharp. The aorta somewhat tortuous. Pulmonary vasculature is not increased. Impression: No active cardiopulmonary disease. Electronically Signed by Drew Galan MD 04/05/2020 09:17 A
== END 2020-04-05 14:05 | disposition home or self-care (01) ==
LOC: M ED 08:00
DX: K70.31 Alcoholic cirrhosis of liver with ascites (principal); R00.0 Tachycardia, unspecified; E80.6 Other disorders of bilirubin metabolism; E87.6 Hypokalemia; F17.200 Nicotine dependence, unspecified, uncomplicated; F31.9 Bipolar disorder, unspecified; F41.9 Anxiety disorder, unspecified; Z79.899 Other long term (current) drug therapy

== ENCOUNTER → 2020-04-11 | Outpatient (CLI) | payer MEDICAID ==
[~2020-04-11] MED LIST changes: +DOCU100C16 PO; +FURO40TA2 PO; +SPIR50TA4 PO
[2020-04-11 09:55] LABS: BLOOD UREA NITROGEN 11 MG/DL (7-18); CALCIUM LEVEL 8.4 MG/DL (8.5-10.1); CARBON DIOXIDE LEVEL 28 MEQ/L (21-32); CHLORIDE LEVEL 96 MEQ/L (98-107); GLOMERULAR FILTRATION RATE > 60.0 (>51); GLUCOSE, FASTING 111 MG/DL (70-100); MAGNESIUM LEVEL 1.7 MG/DL (1.8-2.4); PHOSPHORUS LEVEL 2.9 MG/DL (2.5-4.9); SODIUM LEVEL 130 MEQ/L (136-145); SODIUM,RANDOM URINE < 10 MEQ/L
== END ==
LOC: M LAB 08:48
PROVIDERS: ATTEND Internal Medicine Gastroenterology
DX: K70.31 Alcoholic cirrhosis of liver with ascites (principal)

== ENCOUNTER → 2020-04-18 | Outpatient (CLI) | payer OTHER, MEDICAID ==
[~2020-04-18] MED LIST changes: +CIPR500S PO; +GABA-843 PO; +HYDR-3363 PO; +PANT40TA29 PO; +TORS20TA2 PO; +TRAZ-252 PO
[2020-04-18 13:24] VITALS: BP 108/73
[2020-04-18 14:04] LABS: SOURCE, BODY FLUID TOT PROTEIN ASCITES; TOTAL PROTEIN, BODY FLUID 0.9 G/DL (NOT ESTABLISHED)
[2020-04-18 14:10] LABS: APPEARANCE, BODY FLUID HAZY (CLEAR); ASCITES FL COLOR YELLOW (COLORLESS); SOURCE, BODY FLUID ASCITES
--- NOTE | 2020-04-19 09:15 | REP ---
Ultrasound-guided paracentesis The procedure was performed under the direct supervision of Dr. Conn. The risks and benefits of the procedure were explained to the patient and informed consent was obtained. The largest pocket of fluid was localized in the right flank using ultrasound guidance. The skin was prepped and draped in a sterile fashion. 1% lidocaine was used as a local anesthetic. An 8-Maltese multi side-hole catheter was inserted using trocar technique. 8100 ml of cloudy yellow fluid was withdrawn with a sample sent to the lab for analysis. The patient tolerated the procedure well and there were no immediate complications. After the appropriate amount of monitored convalescence the patient was discharged from the department. Electronically Signed by HECTOR Garcia 04/18/2020 02:09 P Electronically Signed by James Conn MD 04/19/2020 09:07 A
[2020-04-20 08:01] LABS: SOURCE, BODY FLUID ALBUMIN ASCITES
== END ==
LOC: M IRPRO 11:38
PROVIDERS: ATTEND Internal Medicine Gastroenterology
DX: K70.31 Alcoholic cirrhosis of liver with ascites (principal)
CPT/HCPCS: 49083; 82042; 84157; 87070; 87077; 87205; 89051; 96365; P9047

== ENCOUNTER → 2020-04-27 | Outpatient (CLI) | payer OTHER ==
[~2020-04-27] MED LIST changes: +SODIUM BICARBONATE 8.4% INJ 50MEQ 50 ML VIAL As Ordered ONE
[2020-04-27 11:35] VITALS: BP 108/75
--- NOTE | 2020-04-30 10:10 | REP ---
Ultrasound-guided paracentesis The procedure was performed by HECTOR Alfredo, under the direct supervision of Dr. Conn. The risks and benefits of the procedure were explained to the patient and informed consent was obtained both verbally and written. Directly prior to the start of the procedure, a formal timeout was completed in the procedure room. Under ultrasound guidance, the largest pocket of fluid in the left flank was localized and skin was marked. The skin was then prepped and draped in a sterile fashion. 11 ml of buffered lidocaine was used as a local anesthetic. Using ultrasound guidance, an 8-Kiswahili multi side-hole catheter was inserted using trocar technique. 1,600 mL of orange/yellow colored fluid was withdrawn and discarded. The patient tolerated the procedure well and there were no immediate complications. After the appropriate monitored convalescence the patient was discharged from the department. Reviewed by HECTOR Kearns 04/27/2020 02:36 P Electronically Signed by James Conn MD 04/30/2020 10:01 A
== END ==
LOC: M IRPRO 09:35
PROVIDERS: ATTEND Internal Medicine Gastroenterology
DX: K70.31 Alcoholic cirrhosis of liver with ascites (principal)

== ENCOUNTER → 2020-05-01 | Outpatient (CLI) | payer OTHER ==
[~2020-05-01] MED LIST changes: -SODIUM BICARBONATE 8.4% INJ 50MEQ 50 ML VIAL As Ordered ONE
[2020-05-01 13:56] LABS: BLOOD UREA NITROGEN 11 MG/DL (7-18); CALCIUM LEVEL 8.4 MG/DL (8.5-10.1); CARBON DIOXIDE LEVEL 32 MEQ/L (21-32); CHLORIDE LEVEL 98 MEQ/L (98-107); CREATININE FOR GFR 0.76 MG/DL (0.55-1.30); GLOMERULAR FILTRATION RATE > 60.0 (>51); GLUCOSE, FASTING 110 MG/DL (70-100); POTASSIUM SERUM 4.5 MEQ/L (3.5-5.1); SODIUM LEVEL 132 MEQ/L (136-145)
== END ==
LOC: M LAB 12:52
PROVIDERS: ATTEND Internal Medicine Gastroenterology
DX: K70.31 Alcoholic cirrhosis of liver with ascites (principal)

== ENCOUNTER → 2020-05-04 | Outpatient (CLI) | payer OTHER | LOC: M IRPRO 12:30 | PROVIDERS: ATTEND Internal Medicine Gastroenterology | DX: K70.31 Alcoholic cirrhosis of liver with ascites (principal) ==

== ENCOUNTER → 2020-05-14 | Outpatient (CLI) | payer OTHER ==
[~2020-05-14] MED LIST changes: +SODIUM BICARBONATE 8.4% INJ 50MEQ 50 ML VIAL As Ordered ONE
--- NOTE | 2020-07-04 08:56 | REP ---
ULTRASOUND-GUIDED PARACENTESIS: The procedure was performed under the direct supervision of Dr. Galan. The risks and benefits of the procedure were explained to the patient and informed consent was obtained. PROCEDURE: The largest pocket of fluid was localized in the right flank using ultrasound guidance. The skin was prepped and draped in a sterile fashion. 1% lidocaine was used as a local anesthetic. An 8-Chilean multi-side holed catheter was inserted using trocar technique. 3050 cc of yellow fluid was withdrawn and discarded. The patient tolerated the procedure well and there were no immediate complications. After the appropriate amount of monitored convalescence, the patient was discharged from the department. AMANUEL
== END ==
LOC: M RAD 14:00 → M IRPRO 14:00
PROVIDERS: ATTEND Internal Medicine Gastroenterology
DX: K70.31 Alcoholic cirrhosis of liver with ascites (principal)

== ENCOUNTER → 2020-05-21 | Outpatient (CLI) | payer OTHER ==
[~2020-05-21] MED LIST changes: +LIDOCAINE 1% MDV 20ML VIAL As Ordered ONE
--- NOTE | 2020-07-04 08:59 | REP ---
ULTRASOUND-GUIDED PARACENTESIS This procedure was done by HECTOR Alfredo under the direct supervision of Dr. Conn. The risks and benefits of the procedure were explained to the patient and informed consent was obtained. Prior to the start of this procedure, a formal time-out was obtained and consent was obtained yet again verbally as well. The largest pocket of fluid was localized in the left flank using ultrasound guidance. The skin was prepped and draped in a sterile fashion. 11 mL of buffered Lidocaine was used as a local anesthetic. Using ultrasound guidance, an 8-welsh multi-side hole catheter was inserted using trocar technique. 3000 mL of yellow fluid was withdrawn and discarded. The patient tolerated the procedure well and there were no immediate complications. After the appropriate amount of monitored convalescence, the patient was discharged from the department. AMANUEL
== END ==
LOC: M IRPRO 10:52 → M RAD 10:52
PROVIDERS: ATTEND Internal Medicine Gastroenterology
DX: K70.31 Alcoholic cirrhosis of liver with ascites (principal)

== ENCOUNTER → 2020-05-25 | Outpatient (CLI) | payer OTHER ==
[~2020-05-25] MED LIST changes: -LIDOCAINE 1% MDV 20ML VIAL As Ordered ONE; -SODIUM BICARBONATE 8.4% INJ 50MEQ 50 ML VIAL As Ordered ONE
[2020-07-12 22:07] LABS: BASO # 0.1 10^3/uL (0.0-0.2); BASO % 0.6 % (0.0-1.0); EOS % 0.3 % (0.0-3.0); HEMATOCRIT 35.9 % (36.0-47.0); HEMOGLOBIN 12.7 g/dl (12.0-15.5); LYMPH # 1.1 10^3/uL (1.5-5.0); LYMPH % 8.6 % (24.0-44.0); MEAN CORPUSCULAR HEMOGLOBIN 34.5 pg (27.0-33.0); MEAN CORPUSCULAR HGB CONC 35.4 g/dl (32.0-36.5); MEAN CORPUSCULAR VOLUME 97.6 fl (80.0-96.0); MONO # 1.2 10^3/uL (0.0-0.8); MONO % 9.3 % (0.0-5.0); NEUTROPHILS # 9.8 10^3/uL (1.5-8.5); PLATELET COUNT, AUTOMATED 196 10^3/uL (150-450); RED BLOOD COUNT 3.68 10^6/uL (4.00-5.40); WHITE BLOOD COUNT 12.5 10^3/uL (4.0-10.0)
[2020-07-22 23:32] LABS: ALBUMIN 2.1 GM/DL (3.2-5.2); ALT/SGPT 45 U/L (12-78); BILIRUBIN,DIRECT 2.4 MG/DL (0.0-0.2); BILIRUBIN,TOTAL 4.6 MG/DL (0.2-1.0); BLOOD UREA NITROGEN 15 MG/DL (7-18); CALCIUM LEVEL 8.3 MG/DL (8.5-10.1); CARBON DIOXIDE LEVEL 31 MEQ/L (21-32); CHLORIDE LEVEL 94 MEQ/L (98-107); CREATININE FOR GFR 0.84 MG/DL (0.55-1.30); GLOMERULAR FILTRATION RATE > 60.0 (>51); GLUCOSE, FASTING 115 MG/DL (70-100); POTASSIUM SERUM 4.7 MEQ/L (3.5-5.1); SODIUM LEVEL 129 MEQ/L (136-145); TOTAL PROTEIN 7.6 GM/DL (6.4-8.2)
== END ==
LOC: M LAB 11:30
PROVIDERS: ATTEND Internal Medicine Gastroenterology
DX: K70.31 Alcoholic cirrhosis of liver with ascites (principal); K74.60 Unspecified cirrhosis of liver

== ENCOUNTER → 2020-05-31 | Outpatient (CLI) | payer OTHER ==
[2020-05-31 15:12] VITALS: BP 114/73
[2020-05-31 16:32] LABS: SOURCE, BODY FLUID TOT PROTEIN ASCITES; TOTAL PROTEIN, BODY FLUID 0.9 G/DL (NOT ESTABLISHED)
[2020-05-31 17:05] LABS: APPEARANCE, BODY FLUID CLOUDY (CLEAR); ASCITES FL COLOR YELLOW (COLORLESS); SOURCE, BODY FLUID ASCITES
--- NOTE | 2020-07-04 09:00 | REP ---
ULTRASOUND-GUIDED PARACENTESIS The procedure was performed under the direct supervision of Dr. Galan. The risks and benefits of the procedure were explained to the patient and informed consent was obtained. The largest pocket of fluid was localized in the right flank using ultrasound guidance. The skin was prepped and draped in a sterile fashion. 1% Lidocaine was used as a local anesthetic. An 8-Telugu multi-side hole catheter was inserted using trocar technique. 5000 mL of yellow fluid was withdrawn with a sample sent to the lab for analysis. The patient tolerated the procedure well and there were no immediate complications. After the appropriate amount of monitored convalescence, the patient was discharged from the department. AMANUEL
== END ==
LOC: M IRPRO 13:48
PROVIDERS: ATTEND Internal Medicine Gastroenterology
DX: K70.31 Alcoholic cirrhosis of liver with ascites (principal)
CPT/HCPCS: 49083; 84157; 89051; 96365; P9047

== ENCOUNTER → 2020-06-07 | Outpatient (CLI) | payer OTHER ==
[2020-06-07 15:15] VITALS: BP 112/70
[2020-06-07 15:36] LABS: SOURCE, BODY FLUID ALBUMIN ASCITES
[2020-06-07 15:41] LABS: SOURCE, BODY FLUID TOT PROTEIN ASCITES; TOTAL PROTEIN, BODY FLUID 0.9 G/DL (NOT ESTABLISHED)
[2020-06-07 16:34] LABS: APPEARANCE, BODY FLUID CLOUDY (CLEAR); ASCITES FL COLOR YELLOW (COLORLESS); SOURCE, BODY FLUID ASCITES
--- NOTE | 2020-06-18 12:55 | REP ---
ULTRASOUND-GUIDED PARACENTESIS The procedure was performed under the direct supervision of Dr. Galan. The risks and benefits of the procedure were explained to the patient and informed consent was obtained. The largest pocket of fluid was localized in the right flank using ultrasound guidance. The skin was prepped and draped in a sterile fashion. 1% Lidocaine was used as a local anesthetic. An 8-Latvian multi-side hole catheter was inserted using trocar technique. 4600 mL of yellow fluid was withdrawn and discarded. The patient tolerated the procedure well and there were no immediate complications. After the appropriate amount of monitored convalescence, the patient was discharged from the department. AMANUEL
== END ==
LOC: M IRPRO 13:20
PROVIDERS: ATTEND Internal Medicine Gastroenterology
DX: K70.31 Alcoholic cirrhosis of liver with ascites (principal)
CPT/HCPCS: 49083; 82042; 84157; 89051; 96374; P9047

== ENCOUNTER → 2020-06-12 | Outpatient (CLI) | payer OTHER ==
--- NOTE | 2020-07-10 08:02 | REP ---
COMPLETE ABDOMINAL ULTRASOUND CLINICAL: Cirrhosis. TECHNIQUE: Real-time lerma scale and color Doppler evaluation using curved array transducer. COMPARISON: 03/28/2020 FINDINGS: A small right pleural effusion is identified. Small to moderate amount of ascites is appreciated. The liver demonstrates a nodular contour with coarsened echotexture and shrunken appearance consistent with cirrhosis. No focal hepatic lesion identified. Visualized portions of the pancreas are unremarkable. Color Doppler interrogation demonstrates normal flow direction and wave patterns to the portal and hepatic veins. Spleen is upper limits of normal in size without focal splenic lesion identified and measures 11 cm in maximal length. The bilateral kidneys are normal in reniform shape without hydronephrosis. Right kidney measures 10.9 x 5.4 x 4.6 cm. Left kidney measures 11.7 x 5.8 x 4.9 cm. Gallbladder demonstrates small gallstones and mild chronic wall thickening to 4 mm. IMPRESSION: * Cirrhosis with ascites. Normal flow direction and wave patterns to the hepatic vasculature. No focal hepatic lesion. * Pleural effusions and small to moderate ascites. MTDD
== END ==
LOC: M RAD 06:52
PROVIDERS: ATTEND Internal Medicine Gastroenterology
DX: K70.31 Alcoholic cirrhosis of liver with ascites (principal); J90 Pleural effusion, not elsewhere classified

== ENCOUNTER → 2020-06-14 | Outpatient (CLI) | payer OTHER ==
[~2020-06-14] MED LIST changes: +SODIUM BICARBONATE 8.4% INJ 50MEQ 50 ML VIAL As Ordered ONE
[2020-06-14 15:11] LABS: APPEARANCE, BODY FLUID CLOUDY (CLEAR); ASCITES FL COLOR YELLOW (COLORLESS); SOURCE, BODY FLUID ASCITES
[2020-06-14 15:15] VITALS: BP 103/65
[2020-06-14 16:06] LABS: SOURCE, BODY FLUID ALBUMIN ASCITES
[2020-06-14 16:10] LABS: SOURCE, BODY FLUID TOT PROTEIN ASCITES; TOTAL PROTEIN, BODY FLUID 0.9 G/DL (NOT ESTABLISHED)
--- NOTE | 2020-07-10 08:04 | REP ---
ULTRASOUND-GUIDED PARACENTESIS The procedure was performed by Yu Santiago [facility], under the direct supervision of Dr. Conn. The risks and benefits of the procedure were explained to the patient and informed consent was obtained prior to the procedure. Directly prior to the start of the procedure, a formal time-out was obtained. The largest pocket of fluid was localized in the right flank using ultrasound guidance. The skin was prepped and draped in a sterile fashion. 11 mL of buffered Lidocaine was used as a local anesthetic. Using ultrasound guidance, an 8-Nigerien multi-side hole catheter was inserted using trocar technique. 6250 mL of yellow fluid was withdrawn and 200 mL was sent to the laboratory for further analysis and the rest was discarded. The patient tolerated the procedure well, and there were no immediate complications. After the appropriate amount of monitored convalescence, the patient was discharged from the department. AMANUEL
== END ==
LOC: M IRPRO 13:25
PROVIDERS: ATTEND Internal Medicine Gastroenterology
DX: K70.31 Alcoholic cirrhosis of liver with ascites (principal)
CPT/HCPCS: 49083; 82042; 84157; 89051; 96365; P9047

== ENCOUNTER → 2020-06-21 | Outpatient (CLI) | payer OTHER ==
[~2020-06-21] MED LIST changes: -SODIUM BICARBONATE 8.4% INJ 50MEQ 50 ML VIAL As Ordered ONE
[2020-06-21 12:50] VITALS: BP 112/72
[2020-06-21 13:43] LABS: SOURCE, BODY FLUID ASCITES
[2020-06-21 13:44] LABS: ASCITES FL COLOR YELLOW (COLORLESS)
[2020-06-21 13:46] LABS: APPEARANCE, BODY FLUID HAZY (CLEAR)
[2020-06-21 13:52] LABS: SOURCE, BODY FLUID ALBUMIN ASCITES
[2020-06-21 13:57] LABS: SOURCE, BODY FLUID TOT PROTEIN ASCITES; TOTAL PROTEIN, BODY FLUID 0.9 G/DL (NOT ESTABLISHED)
--- NOTE | 2020-07-12 07:47 | REP ---
ULTRASOUND-GUIDED PARACENTESIS The procedure was performed under the direct supervision of Dr. Conn. The risks and benefits of the procedure were explained to the patient and informed consent was obtained. The largest pocket of fluid was localized in the right flank using ultrasound guidance. The skin was prepped and draped in a sterile fashion. 1% Lidocaine was used as a local anesthetic. An 8-Japanese multi-side hole catheter was inserted using trocar technique. 5000 mL of yellow fluid was withdrawn with a sample sent to the lab for analysis. The patient tolerated the procedure well, and there were no immediate complications. After the appropriate amount of monitored convalescence, the patient was discharged from the department. AMANUEL
== END ==
LOC: M IRPRO 11:22
PROVIDERS: ATTEND Internal Medicine Gastroenterology
DX: K70.31 Alcoholic cirrhosis of liver with ascites (principal)
CPT/HCPCS: 49083; 82042; 84157; 89051; 96365; P9047

== ENCOUNTER → 2020-06-28 | Outpatient (CLI) | payer OTHER ==
[2020-06-28 13:12] LABS: BASO % 0.6 % (0.0-1.0); EOS # 0.1 10^3/uL (0.0-0.5); EOS % 1.9 % (0.0-3.0); HEMATOCRIT 32.4 % (36.0-47.0); HEMOGLOBIN 11.5 g/dl (12.0-15.5); LYMPH # 0.9 10^3/uL (1.5-5.0); LYMPH % 12.2 % (24.0-44.0); MEAN CORPUSCULAR HEMOGLOBIN 35.1 pg (27.0-33.0); MEAN CORPUSCULAR HGB CONC 35.5 g/dl (32.0-36.5); MEAN CORPUSCULAR VOLUME 98.8 fl (80.0-96.0); MONO # 0.9 10^3/uL (0.0-0.8); MONO % 12.4 % (0.0-5.0); NEUTROPHILS # 5.2 10^3/uL (1.5-8.5); NEUTROPHILS % 72.1 % (36.0-66.0); PLATELET COUNT, AUTOMATED 137 10^3/uL (150-450); RED BLOOD COUNT 3.28 10^6/uL (4.00-5.40); WHITE BLOOD COUNT 7.2 10^3/uL (4.0-10.0)
[2020-06-28 13:27] LABS: ALBUMIN 2.6 GM/DL (3.2-5.2); ALT/SGPT 29 U/L (12-78); BILIRUBIN,DIRECT 1.7 MG/DL (0.0-0.2); BILIRUBIN,TOTAL 3.9 MG/DL (0.2-1.0); BLOOD UREA NITROGEN 17 MG/DL (7-18); CALCIUM LEVEL 8.1 MG/DL (8.5-10.1); CARBON DIOXIDE LEVEL 29 MEQ/L (21-32); CHLORIDE LEVEL 99 MEQ/L (98-107); CREATININE FOR GFR 0.94 MG/DL (0.55-1.30); GLOMERULAR FILTRATION RATE > 60.0 (>51); GLUCOSE, FASTING 104 MG/DL (70-100); POTASSIUM SERUM 3.7 MEQ/L (3.5-5.1); SODIUM LEVEL 135 MEQ/L (136-145); TOTAL PROTEIN 6.5 GM/DL (6.4-8.2)
[2020-06-28 13:31] LABS: CREATININE,RANDOM URINE 85.8 MG/DL
== END ==
LOC: M LAB 11:14
PROVIDERS: ATTEND Internal Medicine Gastroenterology
DX: K70.31 Alcoholic cirrhosis of liver with ascites (principal)

== ENCOUNTER → 2020-06-28 | Outpatient (CLI) | payer OTHER ==
[2020-06-28 12:42] VITALS: BP 100/72
[2020-06-28 12:49] LABS: APPEARANCE, BODY FLUID CLOUDY (CLEAR); ASCITES FL COLOR YELLOW (COLORLESS); SOURCE, BODY FLUID ASCITES
[2020-06-28 12:51] LABS: SOURCE, BODY FLUID ALBUMIN ASCITES; SOURCE, BODY FLUID TOT PROTEIN ASCITES; TOTAL PROTEIN, BODY FLUID 1.1 G/DL (NOT ESTABLISHED)
--- NOTE | 2020-07-12 07:48 | REP ---
ULTRASOUND GUIDED PARACENTESIS: The procedure was performed under the direct supervision of Dr. Galan. The risks and benefits of the procedure were explained to the patient and informed consent was obtained. The largest pocket of fluid was localized in the right upper quadrant using ultrasound guidance. The skin was prepped and draped in a sterile fashion. 1% Lidocaine was used as a local anesthetic. An 8 Armenian multi-side hole catheter was inserted using trocar technique. 5,200cc of cloudy yellow fluid was withdrawn and discarded. The patient tolerated the procedure well and there were no immediate complications. After the appropriate amount of monitored convalescence, the patient was discharged from the department. AMANUEL
== END ==
LOC: M IRPRO 11:33
PROVIDERS: ATTEND Internal Medicine Gastroenterology
DX: K70.31 Alcoholic cirrhosis of liver with ascites (principal)
CPT/HCPCS: 49083; 82042; 84157; 89051; 96365; P9047

== ENCOUNTER → 2020-07-05 | Outpatient (CLI) | payer OTHER ==
[~2020-07-05] MED LIST changes: +SODIUM BICARBONATE 8.4% INJ 50MEQ 50 ML VIAL As Ordered ONE
[2020-07-05 12:51] VITALS: BP 105/66
[2020-07-05 14:08] LABS: APPEARANCE, BODY FLUID CLEAR (CLEAR); ASCITES FL COLOR YELLOW (COLORLESS); SOURCE, BODY FLUID ASCITES
[2020-07-05 20:22] LABS: SOURCE, BODY FLUID ALBUMIN ASCITES; SOURCE, BODY FLUID TOT PROTEIN ASCITES
--- NOTE | 2020-07-12 07:50 | REP ---
ULTRASOUND-GUIDED PARACENTESIS This procedure was performed by HECTOR Alfredo, under the direct supervision of Dr. Conn. The risks and benefits of the procedure were explained to the patient and informed consent was obtained both verbally and written. Prior to the start of the procedure, a formal time-out was done in the procedure room. Using ultrasound guidance, the largest pocket of fluid was localized in the right flank. The skin was prepped and draped in a sterile fashion. 11 mL of buffered Lidocaine was used as a local anesthetic. A small skin ashley was made and using a trocar technique, an 8-Vietnamese multi-side hole catheter was inserted. 5000 mL of yellow fluid was withdrawn, 200 mL was sent to the lab, and the rest was discarded. The patient tolerated the procedure well, and there were no immediate complications. After the appropriate amount of monitored convalescence, the patient was discharged from the department. This exam has been dictated by HECTOR Alfredo and Dr. Conn. [facility]ENTERJuan
== END ==
LOC: M IRPRO 11:30
PROVIDERS: ATTEND Internal Medicine Gastroenterology
DX: K70.31 Alcoholic cirrhosis of liver with ascites (principal)
CPT/HCPCS: 49083; 82042; 84157; 89051; 96365; P9047

== ENCOUNTER → 2020-07-12 | Outpatient (CLI) | payer OTHER ==
[2020-07-12 13:23] VITALS: BP 97/59
[2020-07-12 14:31] LABS: APPEARANCE, BODY FLUID CLEAR (CLEAR); ASCITES FL COLOR YELLOW (COLORLESS); SOURCE, BODY FLUID ASCITES
[2020-07-12 14:33] LABS: SOURCE, BODY FLUID ALBUMIN ASCITES; SOURCE, BODY FLUID TOT PROTEIN ASCITES; TOTAL PROTEIN, BODY FLUID 1.3 G/DL (NOT ESTABLISHED)
--- NOTE | 2020-07-18 16:39 | REP ---
ULTRASOUND GUIDED PARACENTESIS This procedure was performed by Yu Santiago [facility], under the direct supervision of Dr. Conn. The risks and benefits of the procedure were explained to the patient, and an informed consent was obtained both verbally and written. Directly prior to the start of the procedure, a formal time out was done in the exam room. The largest pocket of fluid was localized in the right flank using ultrasound guidance. The skin was prepped and draped in a sterile fashion. 11 cc of buffered lidocaine was used as a local anesthetic. Using ultrasound guidance, an 8-Frisian multi-sidehole catheter was inserted using trocar technique. 5,000 mL of yellow fluid was withdrawn, 200 mL of this was sent to the lab for further analysis, and the rest was discarded. The patient tolerated the procedure well, and there were no immediate complications. After the appropriate amount of monitored convalescence, the patient was discharged from the department. AMANUEL
== END ==
LOC: M IRPRO 11:25
PROVIDERS: ATTEND Internal Medicine Gastroenterology
DX: K70.31 Alcoholic cirrhosis of liver with ascites (principal)
CPT/HCPCS: 49083; 82042; 84157; 89051; 96365; P9047

== ENCOUNTER → 2020-07-19 | Outpatient (CLI) | payer OTHER ==
[2020-07-19 11:21] LABS: SOURCE, BODY FLUID ASCITES
[2020-07-19 11:22] LABS: APPEARANCE, BODY FLUID CLOUDY (CLEAR); ASCITES FL COLOR YELLOW (COLORLESS)
[2020-07-19 11:28] VITALS: BP 100/58
[2020-07-19 11:42] LABS: SOURCE, BODY FLUID ALBUMIN ASCITES; SOURCE, BODY FLUID TOT PROTEIN ASCITES; TOTAL PROTEIN, BODY FLUID 1.3 G/DL (NOT ESTABLISHED)
--- NOTE | 2020-07-24 09:54 | REP ---
ULTRASOUND-GUIDED PARACENTESIS The procedure was performed by Yu Santiago [facility], under the direct supervision of Dr. Conn. The risks and benefits of the procedure were explained to the patient and an informed consent was obtained both verbally and written. Directly prior to the start of the procedure, a formal time-out was completed in the procedure room. The largest pocket of fluid was localized in the right flank using ultrasound guidance. The skin was prepped, and draped in a sterile fashion. 10 mL of buffered Lidocaine was used as a local anesthetic. Using ultrasound guidance, an 8-Sammarinese multi-side hole catheter was inserted using trocar technique. 8050 mL of yellow fluid was withdrawn, 200 mL was sent to the laboratory for further analysis, and the rest was discarded. The patient tolerated the procedure extremely well, and there were no immediate complications. After the appropriate amount of monitored convalescence, the patient was discharged from the department. Dr. Pedraza was called after the procedure at his request and given the total amount of fluid withdrawn. AMANUEL
== END ==
LOC: M IRPRO 09:44
PROVIDERS: ATTEND Internal Medicine Gastroenterology
DX: K70.31 Alcoholic cirrhosis of liver with ascites (principal)
CPT/HCPCS: 49083; 82042; 84157; 89051; 96365; P9047

== ENCOUNTER → 2020-07-26 | Outpatient (CLI) | payer OTHER ==
[2020-07-26 13:25] VITALS: BP 97/61
[2020-07-26 13:57] LABS: SOURCE, BODY FLUID ALBUMIN ASCITES; SOURCE, BODY FLUID TOT PROTEIN ASCITES; TOTAL PROTEIN, BODY FLUID 1.1 G/DL (NOT ESTABLISHED)
[2020-07-26 14:16] LABS: APPEARANCE, BODY FLUID CLOUDY (CLEAR); ASCITES FL COLOR YELLOW (COLORLESS); SOURCE, BODY FLUID ASCITES
--- NOTE | 2020-07-26 15:46 | REP ---
INDICATION: ASCITES The patient has a history of COMPARISON: None. TECHNIQUE: The procedure was performed by HECTOR Alfredo, under the direct supervision of Dr. Galan. The risks and benefits of the procedure were explained to the patient and informed consent was obtained both verbally and written. Directly prior to the start of the procedure a formal time-out was completed in the procedure room. The largest pocket of fluid was localized in the right flank using ultrasound guidance. The skin was prepped and draped in a sterile fashion. 11 mL of buffered lidocaine was used as a local anesthetic. An 8-Arabic multi side-hole catheter was inserted using trocar technique. Five 5,000 mL of dark yellow ascites fluid was removed, 200 mL was sent to the lab for further analysis, and the rest was discarded. The patient tolerated the procedure well and there were no immediate complications. After the appropriate amount of monitored convalescence, the patient was discharged from the department. FINDINGS: Uneventful ultrasound-guided paracentesis IMPRESSION: Ultrasound-guided paracentesis. <Electronically signed by Heron Galan > 07/26/20 0140
== END ==
LOC: M IRPRO 11:37
PROVIDERS: ATTEND Internal Medicine Gastroenterology
DX: K70.31 Alcoholic cirrhosis of liver with ascites (principal)
CPT/HCPCS: 49083; 82042; 84157; 89051; 96365; P9047

== ENCOUNTER → 2020-08-02 | Outpatient (CLI) | payer OTHER ==
[~2020-08-02] MED LIST changes: -CIPR500S PO; -TORS20TA2 PO; -TRAZ-252 PO
[2020-08-02 13:17] LABS: ASCITES FL COLOR YELLOW (COLORLESS); SOURCE, BODY FLUID ASCITES
[2020-08-02 13:18] LABS: APPEARANCE, BODY FLUID CLOUDY (CLEAR)
[2020-08-02 13:41] LABS: SOURCE, BODY FLUID ALBUMIN ASCITES; SOURCE, BODY FLUID TOT PROTEIN ASCITES; TOTAL PROTEIN, BODY FLUID 1.2 G/DL (NOT ESTABLISHED)
[2020-08-02 15:15] VITALS: BP 112/62
--- NOTE | 2020-08-03 12:28 | REP ---
INDICATION: ASCITES COMPARISON: None. TECHNIQUE: The procedure was performed by HECTOR Alfredo, under the direct supervision of Dr. Conn The risks and benefits of the procedure were explained to the patient and an informed consent was obtained both verbally and written. Directly prior to the start of the procedure a formal time-out was completed in the procedure room. The largest pocket of fluid was localized in the right flank using ultrasound guidance. The skin was prepped and draped in a sterile fashion. Eleven ML of buffered lidocaine was used as a local anesthetic. An 8-Icelandic multi side-hole catheter was inserted using trocar technique. FINDINGS: 5000 mL of yellow fluid was with a removed, a 1000 mL were sent to the lab for further analysis of the rest was discarded. The patient tolerated the procedure well and there were no immediate complications. After the appropriate amount of monitored convalescence, the patient was discharged from the department. IMPRESSION: Successful ultrasound-guided paracentesis. <Electronically signed by Yu Santiago > 08/02/20 2512 <Electronically signed by James Conn > 08/03/20 1221
== END ==
LOC: M IRPRO 11:45
PROVIDERS: ATTEND Internal Medicine Gastroenterology
DX: K70.31 Alcoholic cirrhosis of liver with ascites (principal)
CPT/HCPCS: 49083; 82042; 84157; 89051; 96365; P9047

== ENCOUNTER → 2020-08-09 | Outpatient (CLI) | payer OTHER ==
[~2020-08-09] MED LIST changes: -SODIUM BICARBONATE 8.4% INJ 50MEQ 50 ML VIAL As Ordered ONE; +TRAZ-252 PO
[2020-08-09 12:54] VITALS: BP 99/54
[2020-08-09 13:02] LABS: APPEARANCE, BODY FLUID CLOUDY (CLEAR); ASCITES FL COLOR YELLOW (COLORLESS); SOURCE, BODY FLUID ASCITES
[2020-08-09 13:27] LABS: SOURCE, BODY FLUID ALBUMIN ASCITES; SOURCE, BODY FLUID TOT PROTEIN ASCITES; TOTAL PROTEIN, BODY FLUID 1.3 G/DL (NOT ESTABLISHED)
--- NOTE | 2020-08-09 17:35 | REP ---
INDICATION: ASCITES PT AT FILE ROOM. COMPARISON: None. TECHNIQUE: The procedure was performed under the direct supervision of Dr. Conn. The risks and benefits of the procedure were explained to the patient and informed consent was obtained. The largest pocket of fluid was localized in the right flank using ultrasound guidance. The skin was prepped and draped in a sterile fashion. 1% lidocaine was used as a local anesthetic. An 8-German multi side-hole catheter was inserted using trocar technique. FINDINGS: 4950 cc of light zulma fluid was withdrawn with a sample sent to the lab for analysis. IMPRESSION: Technically successful ultrasound-guided paracentesis. <Electronically signed by Nathanael Garduno > 08/09/20 1635 <Electronically signed by James Conn > 08/09/20 3454
== END ==
LOC: M IRPRO 11:41
PROVIDERS: ATTEND Internal Medicine Gastroenterology
DX: K70.31 Alcoholic cirrhosis of liver with ascites (principal)
CPT/HCPCS: 49083; 82042; 84157; 89051; 96365; P9047

== ENCOUNTER → 2020-08-10 | Outpatient (CLI) | payer OTHER ==
[2020-08-10 08:33] LABS: HEMATOCRIT 28.6 % (36.0-47.0); HEMOGLOBIN 10.1 g/dl (12.0-15.5); MEAN CORPUSCULAR HEMOGLOBIN 32.2 pg (27.0-33.0); MEAN CORPUSCULAR HGB CONC 35.3 g/dl (32.0-36.5); MEAN CORPUSCULAR VOLUME 91.1 fl (80.0-96.0); PLATELET COUNT, AUTOMATED 118 10^3/uL (150-450); RED BLOOD COUNT 3.14 10^6/uL (4.00-5.40); WHITE BLOOD COUNT 8.6 10^3/uL (4.0-10.0)
[2020-08-10 09:12] LABS: ALBUMIN 3.8 GM/DL (3.2-5.2); BILIRUBIN,DIRECT 1.6 MG/DL (0.0-0.2); BILIRUBIN,TOTAL 4.7 MG/DL (0.2-1.0); CALCIUM LEVEL 9.1 MG/DL (8.5-10.1); CREATININE FOR GFR 1.49 MG/DL (0.55-1.30); GLOMERULAR FILTRATION RATE 38.3 (>51); POTASSIUM SERUM 5.3 MEQ/L (3.5-5.1); TOTAL PROTEIN 7.1 GM/DL (6.4-8.2)
== END ==
LOC: M LAB 07:08
PROVIDERS: ATTEND Internal Medicine Gastroenterology
DX: K70.31 Alcoholic cirrhosis of liver with ascites (principal)

== ENCOUNTER 2020-08-13 05:50 | Emergency (ER) | payer OTHER ==
[~2020-08-13] VITALS: Ht 154.9 cm; Wt 69.7 kg
[2020-08-13 06:07] VITALS: BP 91/56
== END 2020-08-13 07:19 | disposition left against medical advice (07) ==
LOC: M ED 05:50
DX: Z53.21 Procedure and treatment not carried out due to patient leaving prior to being seen by health care provider (principal)

== ENCOUNTER → 2020-08-14 | Outpatient (REF) | payer OTHER, MEDICAID | LOC: M LAB REF 12:07 | PROVIDERS: ATTEND Physician Assistant | DX: M54.9 Dorsalgia, unspecified (principal) ==

== ENCOUNTER → 2020-08-14 | Outpatient (POV) | payer OTHER ==
--- NOTE | 2020-08-15 12:01 | IRCOV ---
[facility] IR Consult Office Visit IR Consult Office Visit DATE: Aug 14, 2020 Patient agreed to this telephone consultation. I spent 30 minutes reviewing patient's records, imaging and talking to the patient. REASON FOR CONSULTATION/CHIEF COMPLAINT: Liver failure. Refractory ascites. HISTORY OF PRESENT ILLNESS: 60-year-old female with 40 year-long history of heavy alcohol use, cirrhosis and now refractory ascites presents for TIPS evaluation. Patient states she has now been off alcohol for 5 months. She receives one paracentesis per week yielding at least 5 L of fluid with albumin given at the same time. She states she recently stopped taking her Lasix and spironolactone because she was suffering with back pain and could not get up to go to the bathroom. She's currently not taking any diuretics. Recent increase in diuretics was associated with worsening renal function and therefore her diuretic dose was reduced by gastroenterology. Recently she suffered with hypotension and dizzy spells. She has history of hepatic encephalopathy and is currently on lactulose with which she is compliant. She has never been evaluated for a transplant as she was not off alcohol until more recently. She denies any history of hematemesis or melena. Patient is not very ambulatory. She is not independent outside the home. She does state she is able to walk around the house. She currently lives with her mother. ALLERGIES: Please see below. HOME MEDICATIONS: Please see below. PAST MEDICAL HISTORY: Alcohol-related cirrhosis. Alcohol dependency PAST SURGICAL HISTORY: No liver surgery. FAMILY HISTORY: Noncontributory SOCIAL HISTORY: 40 year-long alcohol abuse. Alcohol free for last 5 months. Current smoker 3-4 packs a week. Denies drugs. REVIEW OF SYSTEMS: Otherwise negative. PHYSICAL EXAMINATION: No video on patient side. LABORATORY DATA: 08/10/2020 hemoglobin 10.1 hematocrit 28.6 WBC 8.6 platelets 118 sodium 127 potassium 5.3 BUN 34 creatinine 1.49 GFR 38.3 fasting glucose 130 total bilirubin 4.7 direct bilirubin 1.6 AST 51 ALT 30 ALP 136 albumin 3.8 04/05/2020 INR 1.95 03/28/2020 ammonia 15 lipase 427 Na MELD score: 29 Imaging: I personally reviewed the ultrasound hepatic Doppler performed June 2020. Severely shrunken liver which is nodular in contour with large volume ascites. Main portal vein is patent. There is splenomegaly. ASSESSMENT/PLAN: 60-year-old female with alcohol-related cirrhosis now in advanced stage with Na MELD score of 29. She is not a good candidate for TIPS as this may worsen her prognosis. However, given age and absence from alcohol, she may now be considered for transplant evaluation and listed if eligible. Otherwise, her best option is conservative management with optimization of diuretics as best possible for this patient and in conjunction with nephrology if appropriate. Thank you for this referral. CC Dr. Pedraza, Allergies Coded Allergies: No Known Allergies (Unverified , 03/28/20) Home Medications Scheduled Folic Acid (Folic Acid), 1 MG PO DAILY, (Reported) Furosemide (Furosemide), 60 MG PO BID, (Reported) Gabapentin (Gabapentin), 300 MG PO BID, (Reported) Lactulose (Lactulose), 30 ML PO BID, (Reported) Pantoprazole Sodium (Pantoprazole Sodium), 40 MG PO DAILY, (Reported) Spironolactone (Spironolactone), 50 MG PO BID, (Reported) Thiamine Mononitrate (Vit B1) (Vitamin B-1), 100 MG PO DAILY, (Reported) Scheduled PRN Trazodone HCl (Trazodone HCl), 50 MG PO QPMP PRN for INSOMNIA, (Reported) Discontinued Medications Hydroxyzine HCl (Hydroxyzine HCl), 1 TAB PO QHS, (Reported) Discontinued Reason: Pt states not taking RIGOBERTO ALDRICH MD Aug 15, 2020 12:01
== END ==
LOC: M TMIRPOV 10:17
PROVIDERS: ATTEND Radiology Diagnostic Radiology
DX: K70.31 Alcoholic cirrhosis of liver with ascites (principal); F10.20 Alcohol dependence, uncomplicated; F17.210 Nicotine dependence, cigarettes, uncomplicated; Z79.899 Other long term (current) drug therapy

== ENCOUNTER → 2020-08-16 | Outpatient (CLI) | payer OTHER ==
[2020-08-16 12:06] LABS: BASO % 0.6 % (0.0-1.0); EOS # 0.1 10^3/uL (0.0-0.5); EOS % 0.9 % (0.0-3.0); HEMATOCRIT 32.5 % (36.0-47.0); HEMOGLOBIN 11.3 g/dl (12.0-15.5); LYMPH # 0.8 10^3/uL (1.5-5.0); LYMPH % 11.3 % (24.0-44.0); MEAN CORPUSCULAR HEMOGLOBIN 32.4 pg (27.0-33.0); MEAN CORPUSCULAR HGB CONC 34.8 g/dl (32.0-36.5); MEAN CORPUSCULAR VOLUME 93.1 fl (80.0-96.0); MONO # 0.8 10^3/uL (0.0-0.8); MONO % 11.6 % (0.0-5.0); NEUTROPHILS # 5.1 10^3/uL (1.5-8.5); NEUTROPHILS % 75.2 % (36.0-66.0); PLATELET COUNT, AUTOMATED 138 10^3/uL (150-450); RED BLOOD COUNT 3.49 10^6/uL (4.00-5.40); WHITE BLOOD COUNT 6.8 10^3/uL (4.0-10.0)
[2020-08-16 12:17] LABS: INR 1.6; PARTIAL THROMBOPLASTIN TIME 39.9 SECONDS (24.2-38.5); PROTHROMBIN TIME 19.4 SECONDS (12.5-14.3)
[2020-08-16 12:33] LABS: CALCIUM LEVEL 9.5 MG/DL (8.5-10.1); CREATININE FOR GFR 1.03 MG/DL (0.55-1.30); GLOMERULAR FILTRATION RATE 58.6 (>51)
[2020-08-16 12:57] VITALS: BP 104/64
[2020-08-16 13:07] LABS: ASCITES FL COLOR YELLOW (COLORLESS); SOURCE, BODY FLUID ASCITES
[2020-08-16 13:08] LABS: APPEARANCE, BODY FLUID CLOUDY (CLEAR)
[2020-08-16 13:56] LABS: SOURCE, BODY FLUID ALBUMIN ASCITES
[2020-08-16 14:01] LABS: SOURCE, BODY FLUID TOT PROTEIN ASCITES; TOTAL PROTEIN, BODY FLUID 1.4 G/DL (NOT ESTABLISHED)
--- NOTE | 2020-08-16 16:44 | REP ---
INDICATION: ASCITES COMPARISON: None. TECHNIQUE: The procedure was performed under the direct supervision of Dr. Conn. The risks and benefits of the procedure were explained to the patient and informed consent was obtained. The largest pocket of fluid was localized in the right flank using ultrasound guidance. The skin was prepped and draped in a sterile fashion. 1% lidocaine was used as a local anesthetic. An 8-Norwegian multi side-hole catheter was inserted using trocar technique. 4250 cc of cloudy yellow fluid was withdrawn with a sample sent to lab for analysis. The patient tolerated the procedure well and there were no immediate complications. After the appropriate amount of monitored convalescence, the patient was discharged from the department. FINDINGS: None IMPRESSION: Technically successful ultrasound-guided paracentesis. <Electronically signed by Nathanael Garduno > 08/16/20 1533 <Electronically signed by James Conn > 08/16/20 1640
== END ==
LOC: M IRPRO 11:12
PROVIDERS: ATTEND Internal Medicine Gastroenterology
DX: K70.31 Alcoholic cirrhosis of liver with ascites (principal); F17.218 Nicotine dependence, cigarettes, with other nicotine-induced disorders
CPT/HCPCS: 36415; 49083; 80048; 82042; 84157; 85025; 85610; 85730; 86850; 86900; 86901; 89051; 96365; P9047

== ENCOUNTER → 2020-08-23 | Outpatient (CLI) | payer OTHER ==
[~2020-08-23] MED LIST changes: +CIPR500S PO; +LIDOCAINE 1% MDV 20ML VIAL As Ordered ONE; +SODIUM BICARBONATE 8.4% INJ 50MEQ 50 ML VIAL As Ordered ONE; +TORS20TA2 PO
[2020-08-23 13:34] VITALS: BP 113/67
--- NOTE | 2020-08-23 14:08 | REP ---
INDICATION: ASCITES COMPARISON: None. TECHNIQUE: The procedure was performed by Dr. Newton under the personal supervision of Yu Santiago, [facility], under the direct supervision of Dr. Galan The risks and benefits of the procedure were explained to the patient and an informed consent was obtained both verbally and written. Directly prior to the start of the procedure a formal time-out was completed in the procedure room. The largest pocket of fluid was localized in the right flank using ultrasound guidance. The skin was prepped and draped in a sterile fashion. Eleven ML of buffered lidocaine was used as a local anesthetic. An 8-Sammarinese multi side-hole catheter was inserted using trocar technique. FINDINGS: 3100 mL solid yellow fluid was removed in total, 500 mL were sent to the laboratory for further analysis, and the rest was discarded. The patient tolerated the procedure well and there were no immediate complications. After the appropriate amount of monitored convalescence, the patient was discharged from the department. IMPRESSION: Ultrasound-guided paracentesis with removal of 3100 mL of ascites. <Electronically signed by Yu Santiago > 08/23/20 1400 <Electronically signed by Heron Galan > 08/23/20 1406
[2020-08-23 14:17] LABS: APPEARANCE, BODY FLUID CLOUDY (CLEAR); ASCITES FL COLOR YELLOW (COLORLESS); SOURCE, BODY FLUID ASCITES
[2020-08-23 14:39] LABS: SOURCE, BODY FLUID ALBUMIN ASCITES; SOURCE, BODY FLUID TOT PROTEIN ASCITES; TOTAL PROTEIN, BODY FLUID 1.4 G/DL (NOT ESTABLISHED)
== END ==
LOC: M IRPRO 11:40
PROVIDERS: ATTEND Internal Medicine Gastroenterology
DX: K70.31 Alcoholic cirrhosis of liver with ascites (principal); F10.10 Alcohol abuse, uncomplicated
CPT/HCPCS: 49083; 82042; 84157; 89051; 96365; P9047

== ENCOUNTER → 2020-08-30 | Outpatient (CLI) | payer OTHER ==
[~2020-08-30] MED LIST changes: -LIDOCAINE 1% MDV 20ML VIAL As Ordered ONE
[2020-08-30 12:50] VITALS: BP 108/73
[2020-08-30 13:49] LABS: APPEARANCE, BODY FLUID HAZY (CLEAR); ASCITES FL COLOR YELLOW (COLORLESS); SOURCE, BODY FLUID ASCITES
[2020-08-30 14:03] LABS: SOURCE, BODY FLUID ALBUMIN ASCITES; SOURCE, BODY FLUID TOT PROTEIN ASCITES; TOTAL PROTEIN, BODY FLUID 1.4 G/DL (NOT ESTABLISHED)
--- NOTE | 2020-08-30 18:24 | REP ---
INDICATION: ASCITES PT HAVING XRAY FIRST THEN IR The patient has a history of ascites COMPARISON: None. TECHNIQUE: The procedure was performed by HECTOR Alfredo, under the direct supervision of Dr. Conn The risks and benefits of the procedure were explained to the patient and an informed consent was obtained both verbally and written. Directly prior to the start of the procedure a formal time-out was completed in the procedure room. The largest pocket of fluid was localized in the right flank using ultrasound guidance. The skin was prepped and draped in a sterile fashion. Eleven ML of buffered lidocaine was used as a local anesthetic. An 8-Guatemalan multi side-hole catheter was inserted using trocar technique. FINDINGS: 5000 mL of solid yellow ascites was removed, 500 mL was sent to the laboratory for further analysis, and the rest was discarded. The patient tolerated the procedure well and there were no immediate complications. After the appropriate amount of monitored convalescence, the patient was discharged from the department. IMPRESSION: Ultrasound-guided paracentesis with removal of 5000 mL of ascites. <Electronically signed by Yu Santiago > 08/30/20 0090 <Electronically signed by James Conn > 08/30/20 [id number]
== END ==
LOC: M IRPRO 11:14
PROVIDERS: ATTEND Internal Medicine Gastroenterology
DX: K70.31 Alcoholic cirrhosis of liver with ascites (principal); Z79.899 Other long term (current) drug therapy
CPT/HCPCS: 49083; 82042; 84157; 89051; P9047

== ENCOUNTER → 2020-08-30 | Outpatient (CLI) | payer OTHER ==
[~2020-08-30] MED LIST changes: -SODIUM BICARBONATE 8.4% INJ 50MEQ 50 ML VIAL As Ordered ONE
--- NOTE | 2020-08-30 15:04 | REP ---
INDICATION: LOW BACK PAIN PT HAS IR APPT AT 12:30 COMPARISON: None. TECHNIQUE: AP, lateral, bilateral oblique, and coned-down views of the lumbar spine. FINDINGS: Mild chronic levoconvex scoliosis along with age-related osteopenia and advanced multilevel degenerative changes including endplate sclerosis, disc space narrowing, osteophytosis, and hypertrophic facet changes are appreciated. There is mild compression deformity at L2 and to a lesser extent L3 and L1 with mild loss of superior vertebral body height. Findings are of indeterminate age and acute versus old injury cannot be excluded/differentiated. There is 2 mm of chronic anterolisthesis at the L4-5 level. IMPRESSION: 1. Osteopenia and advanced multilevel degenerative spondylosis. 2. Possible acute mild compression fractures involving L2, L1, L3 require clinical and physical correlation. No prior examinations are available for comparison. <Electronically signed by Harshal Vaughn > 08/30/20 1500
== END ==
LOC: M RAD 11:19
PROVIDERS: ATTEND Physician Assistant
DX: M25.78 Osteophyte, vertebrae (principal); M54.5 Low back pain

== ENCOUNTER → 2020-09-05 | Outpatient (CLI) | payer OTHER ==
[~2020-09-05] MED LIST changes: +SODIUM BICARBONATE 8.4% INJ 50MEQ 50 ML VIAL As Ordered ONE
[2020-09-05 12:28] LABS: BASO % 0.6 % (0.0-1.0); EOS # 0.1 10^3/uL (0.0-0.5); EOS % 1.1 % (0.0-3.0); HEMATOCRIT 30.7 % (36.0-47.0); HEMOGLOBIN 10.8 g/dl (12.0-15.5); LYMPH # 0.9 10^3/uL (1.5-5.0); LYMPH % 12.1 % (24.0-44.0); MEAN CORPUSCULAR HEMOGLOBIN 31.9 pg (27.0-33.0); MEAN CORPUSCULAR HGB CONC 35.2 g/dl (32.0-36.5); MEAN CORPUSCULAR VOLUME 90.6 fl (80.0-96.0); MONO # 1.1 10^3/uL (0.0-0.8); MONO % 14.9 % (0.0-5.0); NEUTROPHILS # 5.1 10^3/uL (1.5-8.5); NEUTROPHILS % 70.7 % (36.0-66.0); PLATELET COUNT, AUTOMATED 141 10^3/uL (150-450); RED BLOOD COUNT 3.39 10^6/uL (4.00-5.40); WHITE BLOOD COUNT 7.3 10^3/uL (4.0-10.0)
[2020-09-05 12:42] LABS: INR 1.66
[2020-09-05 12:43] LABS: PARTIAL THROMBOPLASTIN TIME 40.3 SECONDS (24.2-38.5)
[2020-09-05 13:08] VITALS: BP 98/54
[2020-09-05 13:09] LABS: ALBUMIN 3.5 GM/DL (3.2-5.2); BILIRUBIN,DIRECT 1.7 MG/DL (0.0-0.2); BILIRUBIN,TOTAL 4.3 MG/DL (0.2-1.0); CALCIUM LEVEL 9.4 MG/DL (8.5-10.1); CREATININE FOR GFR 1.52 MG/DL (0.55-1.30); GLOMERULAR FILTRATION RATE 37.4 (>51); POTASSIUM SERUM 3.9 MEQ/L (3.5-5.1); TOTAL PROTEIN 6.8 GM/DL (6.4-8.2)
--- NOTE | 2020-09-05 17:02 | REP ---
INDICATION: ASCITES The patient has a history of ascites. COMPARISON: None. TECHNIQUE: The procedure was performed by HECTOR Alfredo, under the direct supervision of Dr. Conn The risks and benefits of the procedure were explained to the patient and an informed consent was obtained both verbally and written. Directly prior to the start of the procedure a formal time-out was completed in the procedure room. The largest pocket of fluid was localized in the right flank using ultrasound guidance. The skin was prepped and draped in a sterile fashion. Eleven ML of buffered lidocaine was used as a local anesthetic. An 8-Slovenian multi side-hole catheter was inserted using trocar technique. FINDINGS: 4500 mL of solid yellow ascites was removed and discarded. The patient tolerated the procedure well and there were no immediate complications. After the appropriate amount of monitored convalescence, the patient was discharged from the department. IMPRESSION: Ultrasound-guided paracentesis with removal of 4500 mL of solid yellow ascites. <Electronically signed by Yu Santiago > 09/05/20 1625 <Electronically signed by James Conn > 09/05/20 2210
== END ==
LOC: M IRPRO 10:54
PROVIDERS: ATTEND Internal Medicine Gastroenterology
DX: K70.31 Alcoholic cirrhosis of liver with ascites (principal); Z79.899 Other long term (current) drug therapy
CPT/HCPCS: 49083; 80048; 80076; 82570; 84300; 85025; 85610; 85730; P9047

== ENCOUNTER → 2020-09-13 | Outpatient (CLI) | payer OTHER ==
[~2020-09-13] MED LIST changes: +GABA600T4 PO; +ULTR50TA8 PO
[2020-09-13 13:17] VITALS: BP 106/69
[2020-09-13 14:01] LABS: APPEARANCE, BODY FLUID HAZY (CLEAR); ASCITES FL COLOR YELLOW (COLORLESS); SOURCE, BODY FLUID ASCITES
[2020-09-13 14:26] LABS: SOURCE, BODY FLUID ALBUMIN ASCITES; SOURCE, BODY FLUID TOT PROTEIN ASCITES; TOTAL PROTEIN, BODY FLUID 1.4 G/DL (NOT ESTABLISHED)
--- NOTE | 2020-09-13 16:16 | REP ---
INDICATION: ASCITES. COMPARISON: None. TECHNIQUE: The procedure was performed under the direct supervision of Dr. Conn. The risks and benefits of the procedure were explained to the patient and informed consent was obtained. The largest pocket of fluid was localized in the right lower quadrant using ultrasound guidance. The skin was prepped and draped in a sterile fashion. 1% lidocaine was used as a local anesthetic. An 8-Kazakh multi side-hole catheter was inserted using trocar technique. 4000 cc of yellow fluid was withdrawn with a sample sent to the lab for analysis. The patient tolerated the procedure well and there were no immediate complications. After the appropriate amount of monitored convalescence, the patient was discharged from the department. FINDINGS: None IMPRESSION: Ultrasound-guided paracentesis yielding 4000 cc of yellow fluid. <Electronically signed by Nathanael Garduno > 09/13/20 1447 <Electronically signed by Heron Galan > 09/13/20 1618
== END ==
LOC: M IRPRO 11:05
PROVIDERS: ATTEND Internal Medicine Gastroenterology
DX: K70.31 Alcoholic cirrhosis of liver with ascites (principal)
CPT/HCPCS: 49083; 82042; 84157; 89051; 96365; P9047

== ENCOUNTER → 2020-09-20 | Outpatient (CLI) | payer OTHER ==
[2020-09-20 13:30] VITALS: BP 101/59
--- NOTE | 2020-09-20 15:33 | REP ---
INDICATION: CIRRHOSIS COMPARISON: None. TECHNIQUE: The procedure was performed by Yu Santiago [facility], under the direct supervision of Dr. Dr. Galan The risks and benefits of the procedure were explained to the patient and an informed consent was obtained both verbally and written. Directly prior to the start of the procedure a formal time-out was completed in the procedure room. The largest pocket of fluid was localized in the right flank using ultrasound guidance. The skin was prepped and draped in a sterile fashion. Eleven ML of buffered lidocaine was used as a local anesthetic. An 8-Italian multi side-hole catheter was inserted using trocar technique. FINDINGS: 5000 mL of solid yellow ascites was removed and discarded. The patient tolerated the procedure well and there were no immediate complications. After the appropriate amount of monitored convalescence, the patient was discharged from the department. IMPRESSION: Ultrasound-guided paracentesis with removal of 5000 mL of ascites. <Electronically signed by Yu Santiago > 09/20/20 1433 <Electronically signed by Heron Galan > 09/20/20 [id number]
== END ==
LOC: M IRPRO 11:23
PROVIDERS: ATTEND Internal Medicine Gastroenterology
DX: K70.31 Alcoholic cirrhosis of liver with ascites (principal)
CPT/HCPCS: 49083; 96365; P9047

== ENCOUNTER → 2020-09-27 | Outpatient (CLI) | payer OTHER ==
[~2020-09-27] MED LIST changes: -SODIUM BICARBONATE 8.4% INJ 50MEQ 50 ML VIAL As Ordered ONE
[2020-09-27 13:26] VITALS: BP 110/70
--- NOTE | 2020-09-27 16:57 | REP ---
INDICATION: ASCITES COMPARISON: None. TECHNIQUE: The procedure was performed by HECTOR Alfredo, under the direct supervision of Dr. Galan The risks and benefits of the procedure were explained to the patient and an informed consent was obtained both verbally and written. Directly prior to the start of the procedure a formal time-out was completed in the procedure room. Originally the largest pocket of fluid on the left flank was localized with ultrasound guidance and the skin was prepped and draped in the usual sterile fashion. This tube kept getting stuck up against bowel, as well as clogged by mucous and thick pleural fluid. The largest pocket of fluid was then localized in the right flank using ultrasound guidance. The skin was prepped and draped in a sterile fashion. An 8-Malagasy multi side-hole catheter was inserted using trocar technique. Twenty ML of buffered lidocaine was used as a local anesthetic in total. FINDINGS: 6500 mL of yellow ascites was removed and withdrawn. The patient tolerated the procedure well and there were no immediate complications. After the appropriate amount of monitored convalescence, the patient was discharged from the department. IMPRESSION: Ultrasound-guided paracentesis with removal of 6500 mL of ascites. <Electronically signed by Yu Santiago > 09/27/20 1652 <Electronically signed by Heron Galan > 09/27/20 [id number]
== END ==
LOC: M IRPRO 11:28
PROVIDERS: ATTEND Internal Medicine Gastroenterology
DX: K74.60 Unspecified cirrhosis of liver (principal)
CPT/HCPCS: 49083; 96365; P9047

== ENCOUNTER → 2020-10-03 | Outpatient (CLI) | payer OTHER ==
--- NOTE | 2020-10-03 11:32 | REP ---
INDICATION: COMPRESSION FRACTURE OF LUMBAR SPINE PT HAS INF APPT AT 1230 COMPARISON: 08/30/2020 TECHNIQUE: AP, lateral, bilateral oblique, and coned-down views of the lumbar spine. FINDINGS: Osteopenia and multilevel degenerative changes are again appreciated and unchanged. Findings include osteophytosis, endplate sclerosis and facet arthropathy primarily involving the visualized lower thoracic spine as well as the L5-S1 level. Mild compression deformities involving L1, L2, and to a lesser extent L3 are again suggested and unchanged compared to recent prior examination. Correlation with physical examination is recommended to exclude subacute injuries. IMPRESSION: Osteopenia and multilevel degenerative changes Non-specific mild compression deformity at L1, L2, and L3 unchanged from prior examination which require further investigation. <Electronically signed by Harshal Vaughn > 10/03/20 1125
== END ==
LOC: M RAD 10:43
PROVIDERS: ATTEND Physician Assistant
DX: M48.56XD Collapsed vertebra, not elsewhere classified, lumbar region, subsequent encounter for fracture with routine healing (principal)

== ENCOUNTER → 2020-10-03 | Outpatient (CLI) | payer OTHER ==
[~2020-10-03] MED LIST changes: +SODIUM BICARBONATE 8.4% INJ 50MEQ 50 ML VIAL As Ordered ONE
[2020-10-03 12:43] LABS: CALCIUM LEVEL 8.6 MG/DL (8.5-10.1); CREATININE FOR GFR 1.64 MG/DL (0.55-1.30); GLOMERULAR FILTRATION RATE 34.3 (>51); MAGNESIUM LEVEL 2.1 MG/DL (1.8-2.4); PHOSPHORUS LEVEL 3.9 MG/DL (2.5-4.9); POTASSIUM SERUM 4.4 MEQ/L (3.5-5.1)
[2020-10-03 14:31] VITALS: BP 98/54
--- NOTE | 2020-10-03 17:09 | REP ---
INDICATION: ASCITES IR WILL DO LABS The patient has a history of ascites COMPARISON: None. TECHNIQUE: The procedure was performed by HECTOR Alfredo, under the direct supervision of Dr. Conn The risks and benefits of the procedure were explained to the patient and an informed consent was obtained both verbally and written. Directly prior to the start of the procedure a formal time-out was completed in the procedure room. The largest pocket of fluid was localized in the right flank using ultrasound guidance. The skin was prepped and draped in a sterile fashion. 11 ML of buffered lidocaine was used as a local anesthetic. An 8-Danish multi side-hole catheter was inserted using trocar technique. FINDINGS: 6800 mL of yellow ascites fluid was removed and discarded. The patient tolerated the procedure well and there were no immediate complications. After the appropriate amount of monitored convalescence, the patient was discharged from the department. IMPRESSION: Ultrasound-guided paracentesis with removal of 6800 mL of yellow ascites. <Electronically signed by Yu Santiago > 10/03/20 1704 <Electronically signed by James Conn > 10/03/20 1708
== END ==
LOC: M IRPRO 10:35
PROVIDERS: ATTEND Internal Medicine Gastroenterology
DX: K70.31 Alcoholic cirrhosis of liver with ascites (principal); Z79.899 Other long term (current) drug therapy
CPT/HCPCS: 49083; 80048; 83735; 84100; P9047

== ENCOUNTER → 2020-10-10 | Outpatient (CLI) | payer OTHER ==
[~2020-10-10] MED LIST changes: -SODIUM BICARBONATE 8.4% INJ 50MEQ 50 ML VIAL As Ordered ONE
[2020-10-10 13:16] LABS: CALCIUM LEVEL 8.8 MG/DL (8.5-10.1); CREATININE FOR GFR 1.44 MG/DL (0.55-1.30); GLOMERULAR FILTRATION RATE 39.8 (>51); MAGNESIUM LEVEL 2.1 MG/DL (1.8-2.4); PHOSPHORUS LEVEL 4.2 MG/DL (2.5-4.9); POTASSIUM SERUM 4.4 MEQ/L (3.5-5.1)
[2020-10-10 13:45] VITALS: BP 110/64
--- NOTE | 2020-10-11 21:19 | REP ---
INDICATION: ASCITES LAB 1ST IR 2ND. COMPARISON: None. TECHNIQUE: The procedure was performed under the direct supervision of Dr. Galan. The risks and benefits of the procedure were explained to the patient and informed consent was obtained. The risks and benefits of the procedure were explained to the patient and informed consent was obtained. The largest pocket of fluid was localized in the right upper quadrant using ultrasound guidance. The skin was prepped and draped in a sterile fashion. 1% lidocaine was used as a local anesthetic. An 8-German multi side-hole catheter was inserted using trocar technique. 6400 cc of yellow fluid was withdrawn and discarded. The patient tolerated the procedure well and there were no immediate complications. After the appropriate amount of monitored convalescence, the patient was discharged from the department. FINDINGS: None IMPRESSION: Ultrasound-guided paracentesis yielding 6400 cc of yellow fluid. <Electronically signed by Nathanael Garduno > 10/10/20 1621 <Electronically signed by Heron Galan > 10/11/20 [id number]
== END ==
LOC: M LAB 11:46 → M IRPRO 11:46
PROVIDERS: ATTEND Internal Medicine Gastroenterology
DX: K70.31 Alcoholic cirrhosis of liver with ascites (principal)
CPT/HCPCS: 49083; 80048; 83735; 84100; 96365; P9047

== ENCOUNTER → 2020-10-18 | Outpatient (CLI) | payer OTHER ==
[~2020-10-18] MED LIST changes: +LIDOCAINE 1% MDV 20ML VIAL As Ordered ONE; +SODIUM BICARBONATE 8.4% INJ 50MEQ 50 ML VIAL As Ordered ONE
[2020-10-18 12:22] LABS: CALCIUM LEVEL 8.2 MG/DL (8.5-10.1); CREATININE FOR GFR 1.68 MG/DL (0.55-1.30); GLOMERULAR FILTRATION RATE 33.3 (>51); PHOSPHORUS LEVEL 3.6 MG/DL (2.5-4.9); POTASSIUM SERUM 3.9 MEQ/L (3.5-5.1)
[2020-10-18 13:20] VITALS: BP 95/54
--- NOTE | 2020-10-18 17:00 | REP ---
INDICATION: ASCITES DRAW LABS The patient has a history of ascites COMPARISON: None. TECHNIQUE: The procedure was performed by HECTOR Alfredo, under the direct supervision of Dr. Conn The risks and benefits of the procedure were explained to the patient and an informed consent was obtained both verbally and written. Directly prior to the start of the procedure a formal time-out was completed in the procedure room. The largest pocket of fluid was localized in the right flank using ultrasound guidance. The skin was prepped and draped in a sterile fashion. Eleven ML of buffered lidocaine was used as a local anesthetic. An 8-Occitan multi side-hole catheter was inserted using trocar technique. FINDINGS: 7100 mL of yellow ascites was with move removed and withdrawn. The patient tolerated the procedure well and there were no immediate complications. After the appropriate amount of monitored convalescence, the patient was discharged from the department. IMPRESSION: Ultrasound-guided paracentesis with removal of 7100 mL of yellow ascites. <Electronically signed by Yu Santiago > 10/18/20 1344 <Electronically signed by James Conn > 10/18/20 [id number]
== END ==
LOC: M IRPRO 11:22
PROVIDERS: ATTEND Internal Medicine Gastroenterology
DX: K70.31 Alcoholic cirrhosis of liver with ascites (principal)
CPT/HCPCS: 49083; 80048; 83735; 84100; 96365; P9047

== ENCOUNTER → 2020-10-25 | Outpatient (CLI) | payer OTHER ==
[~2020-10-25] MED LIST changes: +GABA-282 PO; -GABA-843 PO; -LIDOCAINE 1% MDV 20ML VIAL As Ordered ONE
[2020-10-25 13:40] VITALS: BP 98/58
[2020-10-25 16:17] LABS: CALCIUM LEVEL 8.7 MG/DL (8.5-10.1); CREATININE FOR GFR 1.49 MG/DL (0.55-1.30); GLOMERULAR FILTRATION RATE 38.3 (>51); MAGNESIUM LEVEL 2.1 MG/DL (1.8-2.4); PHOSPHORUS LEVEL 3.4 MG/DL (2.5-4.9); POTASSIUM SERUM 4.7 MEQ/L (3.5-5.1)
--- NOTE | 2020-10-25 17:12 | REP ---
INDICATION: UNSPECIFIED CIRRHOSIS OF LIVER The patient has a history of ascites COMPARISON: None. TECHNIQUE: The procedure was performed by HECTOR Alfredo, under the direct supervision of Dr. Conn The risks and benefits of the procedure were explained to the patient and an informed consent was obtained both verbally and written. Directly prior to the start of the procedure a formal time-out was completed in the procedure room. The largest pocket of fluid was localized in the right flank using ultrasound guidance. The skin was prepped and draped in a sterile fashion. Eleven ML of buffered lidocaine was used as a local anesthetic. An 8-East Timorese multi side-hole catheter was inserted using trocar technique. FINDINGS: 6000 mL of yellow ascites was removed and discarded. The patient tolerated the procedure well and there were no immediate complications. After the appropriate amount of monitored convalescence, the patient was discharged from the department. IMPRESSION: Ultrasound-guided paracentesis with removal of 6000 mL of ascites. <Electronically signed by Yu Santiago > 10/25/20 1401 <Electronically signed by James Conn > 10/25/20 [id number]
== END ==
LOC: M IRPRO 11:21
PROVIDERS: ATTEND Internal Medicine Gastroenterology
DX: K70.31 Alcoholic cirrhosis of liver with ascites (principal)
CPT/HCPCS: 49083; 80048; 83735; 84100; 96365; P9047

== ENCOUNTER → 2020-10-30 | Outpatient (CLI) | payer OTHER ==
[~2020-10-30] MED LIST changes: +CIPR500T3 PO; +LIDOCAINE 1% MDV 20ML VIAL As Ordered ONE; +MIDO10TA PO; +NICO21PAT TD
[2020-10-30 14:37] LABS: CALCIUM LEVEL 9.2 MG/DL (8.5-10.1); CREATININE FOR GFR 1.48 MG/DL (0.55-1.30); GLOMERULAR FILTRATION RATE 38.6 (>51); MAGNESIUM LEVEL 2.1 MG/DL (1.8-2.4); PHOSPHORUS LEVEL 3.5 MG/DL (2.5-4.9); POTASSIUM SERUM 4.2 MEQ/L (3.5-5.1)
[2020-10-30 15:03] VITALS: BP 115/66
--- NOTE | 2020-10-30 17:02 | REP ---
INDICATION: UNSPECIFIED CIRRHOSIS OF LIVER The patient has a history of ascites COMPARISON: None. TECHNIQUE: The procedure was performed by HECTOR Alfredo, under the direct supervision of Dr. Conn The risks and benefits of the procedure were explained to the patient and an informed consent was obtained both verbally and written. Directly prior to the start of the procedure a formal time-out was completed in the procedure room. The largest pocket of fluid was localized in the right flank using ultrasound guidance. The skin was prepped and draped in a sterile fashion. Eleven ML of buffered lidocaine was used as a local anesthetic. An 8-C[place] Verdean multi side-hole catheter was inserted using trocar technique. FINDINGS: 7700 mL of solid yellow ascites was removed and discarded. The patient tolerated the procedure well and there were no immediate complications. After the appropriate amount of monitored convalescence, the patient was discharged from the department. IMPRESSION: Ultrasound-guided paracentesis with removal of 7700 mL of ascites. <Electronically signed by Yu Santiago > 10/30/20 1537 <Electronically signed by James Conn > 10/30/20 4510
== END ==
LOC: M IRPRO 13:14
PROVIDERS: ATTEND Internal Medicine Gastroenterology
DX: K70.31 Alcoholic cirrhosis of liver with ascites (principal)
CPT/HCPCS: 49083; 80048; 83735; 84100; 96365; P9047

== ENCOUNTER → 2020-11-06 | Outpatient (CLI) | payer OTHER ==
[~2020-11-06] MED LIST changes: -LIDOCAINE 1% MDV 20ML VIAL As Ordered ONE
[2020-11-06 15:04] VITALS: BP 101/69
[2020-11-06 16:16] LABS: CALCIUM LEVEL 9.2 MG/DL (8.5-10.1); CREATININE FOR GFR 1.76 MG/DL (0.55-1.30); GLOMERULAR FILTRATION RATE 31.6 (>51); MAGNESIUM LEVEL 2.3 MG/DL (1.8-2.4); PHOSPHORUS LEVEL 4.1 MG/DL (2.5-4.9); POTASSIUM SERUM 4.7 MEQ/L (3.5-5.1)
--- NOTE | 2020-11-07 08:40 | REP ---
INDICATION: ASCITES The patient has a history of ascites COMPARISON: None. TECHNIQUE: The procedure was performed by HECTOR Alfredo, under the direct supervision of Dr. Galan The risks and benefits of the procedure were explained to the patient and an informed consent was obtained both verbally and written. Directly prior to the start of the procedure a formal time-out was completed in the procedure room. The largest pocket of fluid was localized in the right flank using ultrasound guidance. The skin was prepped and draped in a sterile fashion. Eleven ML of buffered lidocaine was used as a local anesthetic. An 8-Japanese multi side-hole catheter was inserted using trocar technique. FINDINGS: 7000 mL of solid yellow ascites was removed and discarded. The patient tolerated the procedure well and there were no immediate complications. After the appropriate amount of monitored convalescence, the patient was discharged from the department. IMPRESSION: Ultrasound-guided paracentesis with removal of 7000 mL of ascites. <Electronically signed by Yu Santiago > 11/06/20 1725 <Electronically signed by Heron Galan > 11/07/20 6821
== END ==
LOC: M IRPRO 13:09
PROVIDERS: ATTEND Internal Medicine Gastroenterology
DX: R18.8 Other ascites (principal)
CPT/HCPCS: 49082; 80048; 83735; 84100; P9047

== ENCOUNTER → 2020-11-12 | Outpatient (CLI) | payer OTHER ==
[~2020-11-12] MED LIST changes: -MIDO10TA PO; -NICO21PAT TD
[2020-11-12 14:01] LABS: CREATININE FOR GFR 2.04 MG/DL (0.55-1.30); GLOMERULAR FILTRATION RATE 26.6 (>51); MAGNESIUM LEVEL 2.4 MG/DL (1.8-2.4); PHOSPHORUS LEVEL 4.6 MG/DL (2.5-4.9); POTASSIUM SERUM 5.8 MEQ/L (3.5-5.1)
[2020-11-12 15:25] VITALS: BP 91/58
--- NOTE | 2020-11-12 17:06 | REP ---
INDICATION: ASCITES The patient has a history of ascites COMPARISON: None. TECHNIQUE: The procedure was performed by HECTOR Alfredo, under the direct supervision of Dr. Galan The risks and benefits of the procedure were explained to the patient and an informed consent was obtained both verbally and written. Directly prior to the start of the procedure a formal time-out was completed in the procedure room. The largest pocket of fluid was localized in the right flank using ultrasound guidance. The skin was prepped and draped in a sterile fashion. Eleven ML of buffered lidocaine was used as a local anesthetic. An 8-Hungarian multi side-hole catheter was inserted using trocar technique. FINDINGS: 9300 mL of solid yellow ascites was removed and discarded. The patient tolerated the procedure well and there were no immediate complications. After the appropriate amount of monitored convalescence, the patient was discharged from the department. IMPRESSION: Ultrasound-guided paracentesis with removal of 9300 mL of ascites. <Electronically signed by Yu Santiago > 11/12/20 1640 <Electronically signed by Heron Galan > 11/12/20 2115
== END ==
LOC: M IRPRO 12:43
PROVIDERS: ATTEND Internal Medicine Gastroenterology
DX: K70.31 Alcoholic cirrhosis of liver with ascites (principal)
CPT/HCPCS: 49083; 80048; 83735; 84100; 96365; P9047

== ENCOUNTER 2020-11-14 21:29 | Emergency (ER) | payer OTHER ==
[~2020-11-14] VITALS: Ht 154.9 cm; Wt 69.9 kg
[~2020-11-14 21:29] MED LIST changes: -CIPR500T3 PO; -SODIUM BICARBONATE 8.4% INJ 50MEQ 50 ML VIAL As Ordered ONE
--- OUTSIDE RECORDS SUMMARY | 2020-11-14 21:39 | CCD ---
Author Organization Unknown Address [address] [place] [address] Phone [phone] Care Team Providers Care Independent Distributor Name Role Phone Wai Berrios Unavailable Unavailable Allergies Code Code System Name Reaction Severity Status Onset [id number] RxNorm Ramelteon Active 05/10/2020 Vitamin D3 Vomiting Moderate to Severe Active 09/05/20 Medications Name Status Start Date Stop Date calcium carbonate 600 mg (1,500 mg)-vitamin D3 400 unit tablet A ctive Not available cephalexin 500 mg capsule TAKE ONE CAPSULE BY MOUTH THREE TIMES A DAY Completed 09/05/2020 ciprofloxacin 500 mg tablet Completed 10/12 DOK 100 mg capsule TAKE ONE CAPSULE BY MOUTH TWICE A DAY Active N ot available famotidine 40 mg tablet TAKE ONE TABLET BY MOUTH EVERY MORNING ON AN EMPTY STOMCH BEFORE BREAKFAST Active Not available fluoxetine 20 mg capsule Take 1 capsule every day by oral route. Active Not available Fluzone Quad 60 mcg (15 mcg x 4)/0.5 mL intramuscular susp. INJECT INTO THE LEFT ARM DIRECTED Completed folic acid 1 mg tablet TAKE ONE TABLET BY MOUTH ONCE DAILY AFTER A MEAL Active Not available furosemide 20 mg tablet TAKE ONE TABLET BY MOUTH EVERY DAY Completed 12/2019 furosemide 40 mg tablet TAKE 1.5 tablet QAM and 1.5 tablet QPM Completed 10/30/2020 gabapentin 300 mg capsule Active Not av ailable hydroxyzine HCl 25 mg tablet Active Not available lactulose 10 gram/15 mL (15 mL) oral jorge ution Take 15 mL twice a day by oral route. Completed 10/30/2020 lactulose 10 gram/15 mL oral solution Active Not available lactulose 20 gram/30 mL oral solution TAKE 30ML BY MOUTH TWO TIMES A DAY Completed 12/2019 Mag 64 64 mg tablet,delayed release TAKE ONE TABLET BY MOUTH TWICE A DAY Active No t available pantoprazole 40 mg tablet,delayed release Active Not available potassium chloride ER 20 mEq tablet,exte nded release(part/cryst) TAKE ONE TABLET BY MOUTH EVERY DAY Active Not available Shingrix (PF) 50 mcg/0.5 mL intramuscular suspension, kit Comple cameron 10/30/2020 spironolactone 25 mg tablet TAKE ONE TABLET BY MOUTH EVERY DAY Completed 12/2019 spironolactone 50 mg tablet Active Not available thiamine HCl (vitamin B1) 100 mg tablet TAKE ONE TABLET BY MOUTH EVERY DAY Active Not available torsemide 10 mg tablet Active Not avail able torsemide 20 mg tablet Completed tramadol 50 mg tablet TAKE 1 TABLET BY MOUTH EVERY 12 HOURS NEEDED FOR 7 DAYS MAXIMUM DAILY DOSE 2 TABLETS Active Not available trazodone 50 mg tablet Active Not avail able venlafaxine 37.5 mg tablet Completed 10/30 zaleplon 5 mg capsule TAKE ONE CAPSULE BY MOUTH AT BEDTIME MAXIMUM DAILY DOSE 1 CAPSULE Completed 08/14/2020 Problems Name Status Onset Date Source 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 03/27/20 20 History Nicotine Dependence Active 03/27/2020 History Localized Edema Active 03/27/2020 History Ascites Due to Alcoholic Cirrhosis Active 03/27/2020 History Insomnia Active 04/09/2020 History Influenza Vaccine Needed Unknown 05/10/2020 History Procedure by Method Unknown 06/11/2020 History Osteopenia Active 09/10/2020 Compression Fracture of Lumbar Spine Active 09/10/2020 Major Depressive Disorder Active 10/09/2020 Procedures Date Name Performed by 08/29/2020 XR, Thoracic Spine [facility] [address] [place] [address] ([address]) 08/29/2020 XR, Lumbosacral Spine [facility] [address] [place] [address] (Work Place) 10/01/2020 XR, Lumbar Spine [facility] [address] [place] [address] (Work Place) 10/30/2020 [facility] [address] [place] [address] (Work Place) Notes: section, tubal, lump rem viola from left breast, polyp removed from vocal cords Results Lab Results Date Name Specimen Result Interpretation Description Value Range Status Address 10/25/2020 BMP, Serum or Plasma Normal Glucose, Fastin g 95 mg/dL 70-100 mg/dL [facility]: 83 0 [facility] [place] Blood Urea Nitrogen 34 mg/dL 7-18 mg /dL [facility]: 0 [facility] High Creatinine for GFR 1.49 mg/dL 0.55-1 .30 mg/dL [facility]: [address] [place] [address] Low Glomerular Filtration Rate 38.3 >5 1 [facility]: 8[address] [facility] [place] Low Sodium Level 127 mEq/L 136-145 mEq/L [facility]: [address] [place] [address] Normal Potassium Serum 4.7 mEq/L 3.5-5.1 mE q/L [facility]: 0 [facility] Low Chloride Level 95 mEq/L 98-107 mEq/L [facility]: 0 [facility] Normal Carbon Dioxide Level 24 mEq/L 21-32 mEq/L [facility]: 830 [facility] [place] Normal Anion Gap 8 mEq/L 8-16 mEq/L [facility]: 0 [facility] [place] Normal Calcium Level 8.7 mg/dL 8.5-10.1 mg/ dL [facility]: 830 [facility] [place] 10/25/2020 Phosphorus Level Normal Phosphorus Level 3 .4 mg/dL 2.5-4.9 mg/dL [facility]: 83 0 [facility] 10/25/2020 Magnesium, Serum or Plasma Normal Magnesium Level 2.1 mg/dL 1.8-2.4 mg/dL [facility]: 83 0 [facility] [place] 10/25/2020 Albumin 25% Albumin 25% tra nsfused product: albumin 25% count: 2 [facility]: 830 [facility] 10/18/2020 BMP, Serum or Plasma High Glucose, Fastin g 101 mg/dL 70-100 mg/dL [facility]: 83 0 [facility] High Blood Urea Nitrogen 28 mg/dL 7-18 mg /dL [facility]: 830 [facility] [place] High Creatinine for GFR 1.68 mg/dL 0.55-1 .30 mg/dL [facility]: 830 [facility] [place] Low Glomerular Filtration Rate 33.3 >5 1 [facility]: 830 [facility] [place] Low Sodium Level 134 mEq/L 136-145 mEq/L [facility]: 830 [facility] [place] Normal Potassium Serum 3.9 mEq/L 3.5-5.1 mE q/L [facility]: 830 [facility] [place] Normal Chloride Level 103 mEq/L 98-107 mEq/ L [facility]: 830 [facility] [place] Normal Carbon Dioxide Level 23 mEq/L 21-32 mEq/L [facility]: 830 [facility] [place] Normal Anion Gap 8 mEq/L 8-16 mEq/L [facility]: 830 [facility] [place] Low Calcium Level 8.2 mg/dL 8.5-10.1 mg/ dL [facility]: 830 [facility] 10/18/2020 Phosphorus Level Normal Phosphorus Level 3 .6 mg/dL 2.5-4.9 mg/dL [facility]: 83 0 [facility] 10/18/2020 Magnesium, Serum or Plasma Normal Magnesium Level 2.0 mg/dL 1.8-2.4 mg/dL [facility]: 83 0 [facility] 10/18/2020 Albumin 25% Albumin 25% tra nsfused product: albumin 25% count: 4 [facility] ical Center: 830 [facility] 10/03/2020 BMP, Serum or Plasma High Glucose, Fastin g 106 mg/dL 70-100 mg/dL [facility]: 83 0 [facility] [place] High Blood Urea Nitrogen 30 mg/dL 7-18 mg /dL [facility]: 830 [facility] [place] High Creatinine for GFR 1.64 mg/dL 0.55-1 .30 mg/dL [facility]: 830 [facility] [place] Low Glomerular Filtration Rate 34.3 >5 1 [facility]: 830 [facility] Low Sodium Level 128 mEq/L 136-145 mEq/L [facility]: 830 [facility] [place] Normal Potassium Serum 4.4 mEq/L 3.5-5.1 mE q/L [facility]: 830 [facility] [place] Normal Chloride Level 98 mEq/L 98-107 mEq/L [facility]: 830 [facility] [place] Normal Carbon Dioxide Level 23 mEq/L 21-32 mEq/L [facility]: 830 [facility] [place] Low Anion Gap 7 mEq/L 8-16 mEq/L [facility]: 830 [facility] [place] Normal Calcium Level 8.6 mg/dL 8.5-10.1 mg/ dL [facility]: 830 [facility] [place] 10/03/2020 Phosphorus Level Normal Phosphorus Level 3 .9 mg/dL 2.5-4.9 mg/dL [facility]: 83 0 [facility] 10/03/2020 Magnesium, Serum or Plasma Normal Magnesium Level 2.1 mg/dL 1.8-2.4 mg/dL [facility]: 83 0 [facility] [place] 10/03/2020 Albumin 25% Albumin 25% tra nsfused product: albumin 25% count: 4 [facility]: 830 [facility] 09/27/2020 Albumin 25% Albumin 25% tra nsfused product: albumin 25% count: 4 [facility]: 830 [facility] 09/20/2020 Albumin 25% Albumin 25% tra nsfused product: albumin 25% count: 4 [facility]: 830 [facility] 09/13/2020 Cell Count Ascites Fluid Normal Source, Bod y Fluid ascites [facility]: 830 [facility] [place] Normal Ascites fL Color yellow colorless Fi nal [facility]: 830 [facility] Normal Appearance, Body Fluid hazy clear [facility]: 830 [facility] High WBC Body Fluid 108 /uL 0-10 /uL Yu l [facility]: 830 [facility] [place] Normal RBC Body Fluid < 2 10 <2 10 [facility]: 830 [facility] High Bf Mononuclear Cell % 94.5 % 0-0 % [facility]: 830 [facility] [place] High Bf Polymorphonuclear Cell % 5.5 % 0 -0 % [facility]: 830 [facility] 09/13/2020 TP Body Fluid Normal Total Protein, Body Fl uid 1.4 g/dL not established g/dL [facility]: 83 0 [facility] [place] Normal Source, Body Fluid Tot Protein ascit es [facility]: 830 [facility] 09/13/2020 Albumin, Body Fluid Normal Albumin, Body Fl uid 0.7 g/dL not established g/dL [facility]: 83 0 [facility] Normal Source, Body Fluid Albumin ascites [facility]: 830 [facility] 09/13/2020 Albumin 25% Albumin 25% tra nsfused product: albumin 25% count: 4 [facility]: 830 [facility] 09/05/2020 CBC W/ Auto Diff Normal White Blood Count 7.3 10 4.0-10.0 10 [facility]: 830 [facility] [place] Low Red Blood Count 3.39 10 4.00-5.40 10 [facility]: 830 [facility] Low Hemoglobin 10.8 g/dL 12.0-15.5 g/dL [facility]: 830 [facility] Low Hematocrit 30.7 % 36.0-47.0 % [facility]: 0 [facility] Normal Mean Corpuscular Volume 90.6 fL 80.0 -96.0 fL [facility]: 830 [facility] [place] Normal Mean Corpuscular Hemoglobin 31.9 pg 27.0-33.0 pg [facility]: 830 [facility] [place] Normal Mean Corpuscular HGB Conc 35.2 g/dL 32.0-36.5 g/dL Final [facility]: 830 [facility] High Red Cell Distribution Width 18.1 % 1 1.5-14.5 % [facility]: [address] [place] [address] Low Platelet Count, Automated 141 10 150 -450 10 [facility]: 830 [facility] High Neutrophils % 70.7 % 36.0-66.0 % [facility]: 830 [facility] Low Lymph % 12.1 % 24.0-44.0 % Final [facility]: 830 [facility] High [place] % 14.9 % 0.0-5.0 % Final [facility]: [address] [place] [address] Normal Eos % 1.1 % 0.0-3.0 % [facility]: [address] [place] [address] Normal Baso % 0.6 % 0.0-1.0 % Final [facility]: 830 [facility] Normal Immature Granulocyte % 0.6 % 0-3.0 % [facility]: [address] [place] [address] Normal Nucleated Red Blood Cell % 0.0 % 0- 0 % [facility]: 830 [facility] Normal Neutrophils # 5.1 10 1.5-8.5 10 [facility]: 830 [facility] Low Lymph # 0.9 10 1.5-5.0 10 Final [facility]: 830 [facility] High [place] # 1.1 10 0.0-0.8 10 [facility]: 0 [facility] Normal Eos # 0.1 10 0.0-0.5 10 [facility]: 830 [facility] Normal Baso # 0.0 10 0.0-0.2 10 [facility]: [address] [place] [address] 09/05/2020 PT/PTT, Plasma High Prothrombin Time 20. 0 seconds 12.5-14.3 seconds [facility]: 83 0 [facility] Normal Inr 1.66 [facility]: 830 [facility] High Partial Thromboplastin Time 40.3 sec onds 24.2-38.5 seconds [facility]: 830 [facility] 09/05/2020 Creatinine, Urine Normal Creatinine,random Urine 142.0 mg/dL [facility]: 830 [facility] 09/05/2020 Sodium, Urine Normal Sodium,random Urine 12 mE q/L [facility]: 830 [facility] 09/05/2020 Hepatic Function Panel, Serum High AST/SG OT 50 U/L 7-37 U/L [facility]: 830 [facility] Normal ALT/SGPT 26 U/L 12-78 U/L [facility]: 830 [facility] High Alkaline Phosphatase 184 U/L 45-117 U/L [facility]: 830 [facility] High Bilirubin,total 4.3 mg/dL 0.2-1.0 mg /dL [facility]: 0 [facility] High Bilirubin,direct 1.7 mg/dL 0.0-0.2 m g/dL [facility]: 830 [facility] Normal Total Protein 6.8 gm/dL 6.4-8.2 gm/d L [facility]: 830 [facility] Normal Albumin 3.5 gm/dL 3.2-5.2 gm/dL Yu l [facility]: 830 [facility] Low Albumin/globulin Ratio 1.1 1.2-2. 2 [facility]: 830 [facility] 09/05/2020 BMP, Serum or Plasma High Glucose, Fastin g 109 mg/dL 70-100 mg/dL [facility]: 83 0 [facility] High Blood Urea Nitrogen 27 mg/dL 7-18 mg /dL [facility]: 830 [facility] High Creatinine for GFR 1.52 mg/dL 0.55-1 .30 mg/dL [facility]: [address] [place] [address] Low Glomerular Filtration Rate 37.4 >5 1 [facility]: [address] [place] [address] Low Sodium Level 130 mEq/L 136-145 mEq/L [facility]: [address] [place] [address] Normal Potassium Serum 3.9 mEq/L 3.5-5.1 mE q/L [facility]: 830 [facility] Low Chloride Level 93 mEq/L 98-107 mEq/L [facility]: [address] [place] [address] Normal Carbon Dioxide Level 29 mEq/L 21-32 mEq/L [facility]: [address] [place] [address] Normal Anion Gap 8 mEq/L 8-16 mEq/L [facility]: [address] [place] [address] Normal Calcium Level 9.4 mg/dL 8.5-10.1 mg/ dL [facility]: 0 [facility] 09/05/2020 Albumin 25% Albumin 25% tra nsfused product: albumin 25% count: 4 [facility] ical Center: [address] [place] [address] 08/30/2020 Cell Count Ascites Fluid Normal Source, Bod y Fluid ascites [facility]: [address] [place] [address] Normal Ascites fL Color yellow colorless Fi nal [facility]: 0 [facility] Normal Appearance, Body Fluid hazy clear [facility]: 830 [facility] High WBC Body Fluid 98 /uL 0-10 /uL [facility]: 830 [facility] Normal RBC Body Fluid < 2 10 <2 10 [facility]: 0 [facility] High Bf Mononuclear Cell % 96.9 % 0-0 % [facility]: [address] [place] [address] High Bf Polymorphonuclear Cell % 3.1 % 0 -0 % [facility]: 0 [facility] 08/30/2020 TP Body Fluid Normal Total Protein, Body Fl uid 1.4 g/dL not established g/dL [facility]: 83 0 [facility] Normal Source, Body Fluid Tot Protein ascit es [facility]: 830 [facility] 08/30/2020 Albumin, Body Fluid Normal Albumin, Body Fl uid 0.8 g/dL not established g/dL [facility]: 83 0 [facility] Normal Source, Body Fluid Albumin ascites Final [facility]: 830 [facility] 08/30/2020 Albumin 25% Albumin 25% tra nsfused product: albumin 25% count: 4 Final [facility] ical Center: 830 [facility] 08/23/2020 Cell Count Ascites Fluid Normal Source, Bod y Fluid ascites Final [facility]: 830 [facility] Normal Ascites fL Color yellow colorless Fi nal [facility]: 830 [facility] Normal Appearance, Body Fluid cloudy clear [facility]: 830 [facility] High WBC Body Fluid 160 /uL 0-10 /uL Yu l [facility]: 830 [facility] Normal RBC Body Fluid 2 10 <2 10 [facility]: 830 [facility] High Bf Mononuclear Cell % 96.3 % 0-0 % [facility]: 830 [facility] High Bf Polymorphonuclear Cell % 3.7 % 0 -0 % [facility]: 830 [facility] 08/23/2020 TP Body Fluid Normal Total Protein, Body Fl uid 1.4 g/dL not established g/dL [facility]: 83 0 [facility] Normal Source, Body Fluid Tot Protein ascit es [facility]: 830 [facility] 08/23/2020 Albumin, Body Fluid Normal Albumin, Body Fl uid 0.9 g/dL not established g/dL [facility]: 83 0 [facility] Normal Source, Body Fluid Albumin ascites [facility]: 830 [facility] 08/23/2020 Albumin 25% Albumin 25% tra nsfused product: albumin 25% count: 4 [facility]: [address] [place] [address] 08/16/2020 CBC W/ Auto Diff Normal White Blood Count 6.8 10 4.0-10.0 10 [facility]: [address] [place] [address] Low Red Blood Count 3.49 10 4.00-5.40 10 [facility]: [address] [place] [address] Low Hemoglobin 11.3 g/dL 12.0-15.5 g/dL [facility]: [address] [place] [address] Low Hematocrit 32.5 % 36.0-47.0 % [facility]: [address] [place] [address] Normal Mean Corpuscular Volume 93.1 fL 80.0 -96.0 fL [facility]: [address] [place] [address] Normal Mean Corpuscular Hemoglobin 32.4 pg 27.0-33.0 pg [facility]: [address] [place] [address] Normal Mean Corpuscular HGB Conc 34.8 g/dL 32.0-36.5 g/dL [facility]: [address] [place] [address] High Red Cell Distribution Width 18.4 % 1 1.5-14.5 % [facility]: [address] [place] [address] Low Platelet Count, Automated 138 10 150 -450 10 [facility]: [address] [place] [address] High Neutrophils % 75.2 % 36.0-66.0 % Fin [facility]: [address] [place] [address] Low Lymph % 11.3 % 24.0-44.0 % [facility]: [address] [place] [address] High [place] % 11.6 % 0.0-5.0 % [facility]: [address] [place] [address] Normal Eos % 0.9 % 0.0-3.0 % [facility]: [address] [place] [address] Normal Baso % 0.6 % 0.0-1.0 % [facility]: [address] [place] [address] Normal Immature Granulocyte % 0.4 % 0-3.0 % [facility]: 830 [facility] Normal Nucleated Red Blood Cell % 0.0 % 0- 0 % [facility]: 830 [facility] Normal Neutrophils # 5.1 10 1.5-8.5 10 Yu [facility]: 830 [facility] Low Lymph # 0.8 10 1.5-5.0 10 [facility]: 830 [facility] Normal [place] # 0.8 10 0.0-0.8 10 [facility]: 830 [facility] Normal Eos # 0.1 10 0.0-0.5 10 [facility]: 830 [facility] Normal Baso # 0.0 10 0.0-0.2 10 [facility]: 830 [facility] 08/16/2020 PT/PTT, Plasma High Prothrombin Time 19. 4 seconds 12.5-14.3 seconds [facility]: 83 0 [facility] Normal Inr 1.60 [facility]: 0 [facility] High Partial Thromboplastin Time 39.9 sec onds 24.2-38.5 seconds [facility]: 0 [facility] 08/16/2020 BMP, Serum or Plasma High Glucose, Fastin g 110 mg/dL 70-100 mg/dL [facility]: 83 0 [facility] High Blood Urea Nitrogen 29 mg/dL 7-18 mg /dL [facility]: 830 [facility] Normal Creatinine for GFR 1.03 mg/dL 0.55-1 .30 mg/dL [facility]: 0 [facility] Normal Glomerular Filtration Rate 58.6 >5 1 [facility]: 830 [facility] Low Sodium Level 128 mEq/L 136-145 mEq/L [facility]: 830 [facility] Normal Potassium Serum 5.0 mEq/L 3.5-5.1 mE q/L [facility]: 830 [facility] Low Chloride Level 97 mEq/L 98-107 mEq/L [facility]: 830 [facility] Normal Carbon Dioxide Level 25 mEq/L 21-32 mEq/L [facility]: 830 [facility] Low Anion Gap 6 mEq/L 8-16 mEq/L [facility]: 830 [facility] Normal Calcium Level 9.5 mg/dL 8.5-10.1 mg/ dL [facility]: 830 [facility] 08/16/2020 Type + Screen, Serum Normal Blood Type A posit preethi [facility]: 830 [facility] 08/16/2020 Ab Screen Gel Manual Normal Ab Screen Gel M anual negative [facility]: 830 [facility] 08/16/2020 Albumin, Body Fluid Normal Albumin, Body Fl uid 0.7 g/dL not established g/dL [facility]: 83 0 [facility] Normal Source, Body Fluid Albumin ascites [facility]: [address] [place] [facility] 08[facility]16[facility]2020 Cell Count Ascites Fluid Normal Source, Bod y Fluid ascites [facility]: 830 [place] [facility] Normal Ascites fL Color yellow colorless Fi nal [facility]: 830 [facility] Normal Appearance, Body Fluid cloudy clear [facility]: 830 [facility] High WBC Body Fluid 163 /uL 0-10 /uL Yu l [facility]: 830 [facility] Normal RBC Body Fluid < 2 10 <2 10 [facility]: 830 [facility] High Bf Mononuclear Cell % 97.6 % 0-0 % [facility]: 830 [facility] High Bf Polymorphonuclear Cell % 2.4 % 0 -0 % [facility]: 830 [facility] 08/16/2020 TP Body Fluid Normal Total Protein, Body Fl uid 1.4 g/dL not established g/dL [facility]: 83 0 [facility] [place] Normal Source, Body Fluid Tot Protein ascit es [facility]: 830 [facility] 08/16/2020 Albumin 25% Albumin 25% tra nsfused product: albumin 25% count: 4 [facility]: 830 [facility] 08/14/2020 Culture, Urine URINE,CLEAN CATCH No observation recorded. [facility]: 0 [facility] 08/10/2020 Cbc Normal White Blood Count 8.6 10 4.0-10. 0 10 Final [facility]: 830 [facility] Low Red Blood Count 3.14 10 4.00-5.40 10 [facility]: 0 [facility] Low Hemoglobin 10.1 g/dL 12.0-15.5 g/dL [facility]: 0 [facility] Low Hematocrit 28.6 % 36.0-47.0 % [facility]: 830 [facility] Normal Mean Corpuscular Volume 91.1 fL 80.0 -96.0 fL [facility]: 830 [facility] Normal Mean Corpuscular Hemoglobin 32.2 pg 27.0-33.0 pg [facility]: 0 [facility] Normal Mean Corpuscular HGB Conc 35.3 g/dL 32.0-36.5 g/dL [facility]: 0 [facility] High Red Cell Distribution Width 17.7 % 1 1.5-14.5 % [facility]: 0 [facility] Low Platelet Count, Automated 118 10 150 -450 10 [facility]: 0 [facility] Normal Nucleated Red Blood Cell % 0.0 % 0- 0 % [facility]: 0 [facility] 08/10/2020 Creatinine, Urine Normal Creatinine,random Urine 118.0 mg/dL [facility]: 0 [facility] 08/10/2020 Sodium, Urine Normal Sodium,random Urine 16 mE q/L [facility]: 830 [facility] 08/10/2020 Hepatic Function Panel, Serum High AST/SG OT 51 U/L 7-37 U/L [facility]: 830 [facility] Normal ALT/SGPT 30 U/L 12-78 U/L [facility]: 830 [facility] High Alkaline Phosphatase 136 U/L 45-117 U/L [facility]: 830 [facility] High Bilirubin,total 4.7 mg/dL 0.2-1.0 mg /dL [facility]: 830 [facility] High Bilirubin,direct 1.6 mg/dL 0.0-0.2 m g/dL [facility]: 0 [facility] Normal Total Protein 7.1 gm/dL 6.4-8.2 gm/d L [facility]: 0 [facility] Normal Albumin 3.8 gm/dL 3.2-5.2 gm/dL Yu l [facility]: 830 [facility] Normal Albumin/globulin Ratio 1.2 1.2-2. 2 [facility]: 0 [facility] 08/10/2020 BMP, Serum or Plasma High Glucose, Fastin g 130 mg/dL 70-100 mg/dL [facility]: 83 0 [facility] High Blood Urea Nitrogen 34 mg/dL 7-18 mg /dL [facility]: 0 [facility] High Creatinine for GFR 1.49 mg/dL 0.55-1 .30 mg/dL [facility]: 0 [facility] Low Glomerular Filtration Rate 38.3 >5 1 [facility]: 0 [facility] Low Sodium Level 127 mEq/L 136-145 mEq/L [facility]: [address] [place] [address] High Potassium Serum 5.3 mEq/L 3.5-5.1 mE q/L [facility]: 0 [facility] Low Chloride Level 93 mEq/L 98-107 mEq/L [facility]: 830 [facility] Normal Carbon Dioxide Level 28 mEq/L 21-32 mEq/L [facility]: 830 [facility] Low Anion Gap 6 mEq/L 8-16 mEq/L [facility]: 830 [facility] Normal Calcium Level 9.1 mg/dL 8.5-10.1 mg/ dL [facility]: 830 [facility] 08/09/2020 Cell Count Ascites Fluid Normal Source, Bod y Fluid ascites [facility]: 830 [facility] Normal Ascites fL Color yellow colorless Fi nal [facility]: 830 [facility] Normal Appearance, Body Fluid cloudy clear [facility]: 830 [facility] High WBC Body Fluid 152 /uL 0-10 /uL Yu l [facility]: 830 [facility] Normal RBC Body Fluid 3 10 <2 10 [facility]: 830 [facility] High Bf Mononuclear Cell % 96.7 % 0-0 % [facility]: 830 [facility] High Bf Polymorphonuclear Cell % 3.3 % 0 -0 % [facility]: 830 [facility] 08/09/2020 TP Body Fluid Normal Total Protein, Body Fl uid 1.3 g/dL not established g/dL [facility]: 83 0 [facility] Normal Source, Body Fluid Tot Protein ascit es [facility]: 830 [facility] 08/09/2020 Albumin, Body Fluid Normal Albumin, Body Fl uid 0.7 g/dL not established g/dL [facility]: 83 0 [facility] Normal Source, Body Fluid Albumin ascites [facility]: 830 [facility] 08/09/2020 Albumin 25% Albumin 25% tra nsfused product: albumin 25% count: 4 [facility] ical Center: 830 [facility] [facility] 08/02/2020 Cell Count Ascites Fluid Normal Source, Bod y Fluid ascites [facility]: 830 [facility] Normal Ascites fL Color yellow colorless Fi nal [facility]: 830 [facility] Normal Appearance, Body Fluid cloudy clear Final [facility]: 830 [facility] High WBC Body Fluid 149 /uL 0-10 /uL Yu l [facility]: 830 [facility] Normal RBC Body Fluid < 2 10 <2 10 Final [facility]: 830 [facility] High Bf Mononuclear Cell % 97.3 % 0-0 % [facility]: 830 [facility] High Bf Polymorphonuclear Cell % 2.7 % 0 -0 % [facility]: 830 [facility] 08/02/2020 TP Body Fluid Normal Total Protein, Body Fl uid 1.2 g/dL not established g/dL [facility]: 83 0 [facility] Normal Source, Body Fluid Tot Protein ascit es [facility]: 830 [facility] 08/02/2020 Albumin, Body Fluid Normal Albumin, Body Fl uid 0.7 g/dL not established g/dL [facility]: 83 0 [facility] Normal Source, Body Fluid Albumin ascites [facility]: 830 [facility] 08/02/2020 Albumin 25% Albumin 25% tra nsfused product: albumin 25% count: 4 Final [facility] ical Center: 830 [facility] [facility] Past Encounters 10/30/2020 Moderate Recurrent Major Depression; Compression Fracture of Lumbar Spine; Ascites Due to Alcoholic Cirrhosis; Chronic Alcoholism in Remission KIRA KirbyC: [address] [facility] [address] [address], Ph. 10/09/2020 Compression Fracture of Lumbar Spine; Ascites Due to Alcoholic Cirrhosis; Major Depressive Disorder MARYA GarciaC: [address] [facility] [address], [place] [address], Ph. 09/10/2020 Compression Fracture of Lumbar Spine; Osteopenia; Ascites Due to Alcoholic Cirrhosis; Nondependent Alcohol Abuse in Remission Wai BerriosOLIMPIA-C: [address], [place] [address], Ph. 08/14/2020 Backache; Acute Nontraumatic Kidney Injury Wai BerriosOLIMPIA-C: [address], [place] [address], Ph. Social History Tobacco Smoking Status Light Tobacco Smoker (1 PPW) Vaccine List Vaccine Type influenza, injectable, quadrivalent 08/17/2020 Plan of Care Reminders Provider Appointments None recorded. Lab None recorded. Referral None recorded. Procedures None recorded. Surgeries None recorded. Imaging None recorded. Vitals 10/30/2020 11:30AM TELEHEALTH 20 Height 61 in 10/09/2020 10:30AM TELEHEALTH 20 Height 61 in 09/10/2020 09:10AM ESTABLISHED [id number] Height Weight BMI Blood Pressure 61 in 148 lbs 16 oz 28.2 kg/m2 113/75 mm[Hg] 08/14/2020 04:00PM SAME DAY 20 Height Weight BMI Blood Pressure 61 in 152 lbs 16 oz 28.9 kg/m2 127/80 mm[Hg] 06/11/2020 Height Weight Blood Pressure 61 in 164 lbs 3.2 oz 108/71 mm[Hg] 05/10/2020 Height Weight Blood Pressure 61 in 162 lbs 4 oz 101/70 mm[Hg] 04/09/2020 Height Weight Blood Pressure 61 in 172 lbs 121/78 mm[Hg] 03/27/2020 Height Weight Blood Pressure 61 in 205 lbs 6.08 oz 131/80 mm[Hg]
--- OUTSIDE RECORDS SUMMARY | 2020-11-14 21:39 | CCD ---
Author Organization Unknown Address [address] [place] [address] Phone [phone] Care Team Providers Care Classification And Treatment Director Name Role Phone Wai Berrios Unavailable Unavailable Allergies Code Code System Name Reaction Severity Status Onset 486147 RxNorm Ramelteon Active 05/10/2020 Vitamin D3 Vomiting Moderate to Severe Active 09/05/20 Medications Name Status Start Date Stop Date calcium carbonate 600 mg (1,500 mg)-vitamin D3 400 unit tablet A ctive Not available cephalexin 500 mg capsule TAKE ONE CAPSULE BY MOUTH THREE TIMES A DAY Completed 09/05/2020 ciprofloxacin 500 mg tablet TAKE ONE TABLET BY MOUTH EVERY DAY TAKE AFTER LUNCH Active Not available DOK 100 mg capsule TAKE ONE CAPSULE BY MOUTH TWICE A DAY Active N ot available famotidine 40 mg tablet TAKE ONE TABLET BY MOUTH EVERY MORNING ON AN EMPTY STOMCH BEFORE BREAKFAST Active Not available Fluzone Quad 60 mcg (15 mcg x 4)/0.5 mL intramuscular susp. INJECT INTO THE LEFT ARM DIRECTED Completed folic acid 1 mg tablet Active Not avail able furosemide 20 mg tablet TAKE ONE TABLET BY MOUTH EVERY DAY Completed 12/2019 furosemide 40 mg tablet TAKE 1.5 tablet QAM and 1.5 tablet QPM Active Not available gabapentin 300 mg capsule Active Not av ailable hydroxyzine HCl 25 mg tablet Active Not available lactulose 10 gram/15 mL (15 mL) oral jorge ution Take 15 mL twice a day by oral route. Active N ot available lactulose 10 gram/15 mL oral solution TAKE 15ML BY MOUTH 1 TO 2 TIMES A DAY ADJUST DOSE TO GET AT LEAST 2 SOFT STOOLS PER DAY Active Not available lactulose 20 gram/30 mL oral solution TAKE 30ML BY MOUTH TWO TIMES A DAY Completed 12/2019 Mag 64 64 mg tablet,delayed release TAKE ONE TABLET BY MOUTH TWICE A DAY Active No t available pantoprazole 40 mg tablet,delayed releas e TAKE ONE TABLET BY MOUTH EVERY DAY 30 MINUTES BEFORE BREAKFAST Active Not available potassium chloride ER 20 mEq tablet,exte nded release(part/cryst) TAKE ONE TABLET BY MOUTH EVERY DAY Active Not available Shingrix (PF) 50 mcg/0.5 mL intramuscular suspension, kit Active Not available spironolactone 25 mg tablet TAKE ONE TABLET BY MOUTH EVERY DAY Completed 12/2019 spironolactone 50 mg tablet Active Not available thiamine HCl (vitamin B1) 100 mg tablet TAKE ONE TABLET BY MOUTH EVERY DAY Active Not available torsemide 10 mg tablet TAKE ONE TABLET BY MOUTH EVERY DAY Active Not available torsemide 20 mg tablet Active Not avail able tramadol 50 mg tablet TAKE ONE TABLET BY MOUTH EVERY 8 HOURS NEEDED FOR 7 DAYS MAXIMUM DAILY DOSE THREE TABLETS Active Not available trazodone 50 mg tablet Active Not avail able venlafaxine 37.5 mg tablet Take 1 tablet every day by oral route. Active Not available zaleplon 5 mg capsule TAKE ONE CAPSULE BY MOUTH AT BEDTIME MAXIMUM DAILY DOSE 1 CAPSULE Completed 08/14/2020 Problems Name Status Onset Date Source 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 03/27/20 History Nicotine Dependence Active 03/27/2020 History Localized Edema Active 03/27/2020 History Ascites Due to Alcoholic Cirrhosis Active 03/27/2020 History Insomnia Active 04/09/2020 History Influenza Vaccine Needed Active 05/10/2020 History Procedure by Method Unknown 06/11/2020 History Osteopenia Active 09/10/2020 Compression Fracture of Lumbar Spine Active 09/10/2020 Major Depressive Disorder Active 10/09/2020 Procedures Date Name Performed by 08/29/2020 XR, Thoracic Spine [facility] [address] [place] [id number] (Work [address]) 08/29/2020 XR, Lumbosacral Spine [facility] [address] [place] [id number] (Work Place) 10/01/2020 XR, Lumbar Spine [facility] [address] [place] [address] (Work Place) Notes: section, tubal, lump rem viola from left breast, polyp removed from vocal cords Results Lab Results Date Name Specimen Result Interpretation Description Value Range Status Address 10/03/2020 BMP, Serum or Plasma High Glucose, Fastin g 106 mg/dL 70-100 mg/dL Final [facility]: [address] 0 [facility] High Blood Urea Nitrogen 30 mg/dL 7-18 mg /dL [facility]: [address]30 [facility] High Creatinine for GFR 1.64 mg/dL 0.55-1 .30 mg/dL [facility]: 830 [facility] Low Glomerular Filtration Rate 34.3 >5 1 [facility]: 830 [facility] Low Sodium Level 128 mEq/L 136-145 mEq/L [facility]: 830 [facility] Normal Potassium Serum 4.4 mEq/L 3.5-5.1 mE q/L [facility]: 830 [facility] Normal Chloride Level 98 mEq/L 98-107 mEq/L [facility]: [address]30 [facility] Normal Carbon Dioxide Level 23 mEq/L 21-32 mEq/L [facility]: [address] [facility] Low Anion Gap 7 mEq/L 8-16 mEq/L [facility]: 830 [facility] Normal Calcium Level 8.6 mg/dL 8.5-10.1 mg/ dL [facility]: 830 [facility] 10/03/2020 Phosphorus Level Normal Phosphorus Level 3 .9 mg/dL 2.5-4.9 mg/dL [facility]: 83 0 [facility] 10/03/2020 Magnesium, Serum or Plasma Normal Magnesium Level 2.1 mg/dL 1.8-2.4 mg/dL [facility]: 83 0 [facility] 10/03/2020 Albumin 25% Albumin 25% tra nsfused product: albumin 25% count: 4 [facility]: [address] [facility] 09/27/2020 Albumin 25% Albumin 25% tra nsfused product: albumin 25% count: 4 [facility]: 830 [facility] 09/20/2020 Albumin 25% Albumin 25% tra nsfused product: albumin 25% count: 4 Final [facility] ical Center: 8[address] [facility] 09/13/2020 Cell Count Ascites Fluid Normal Source, Bod y Fluid ascites Final [facility]: [address] [facility] Normal Ascites fL Color yellow colorless Fi nal [facility]: 830 [facility] Normal Appearance, Body Fluid hazy clear [facility]: 830 [facility] High WBC Body Fluid 108 /uL 0-10 /uL Yu l [facility]: [address] [facility] Normal RBC Body Fluid < 2 10 <2 10 [facility]: [address] [facility] High Bf Mononuclear Cell % 94.5 % 0-0 % [facility]: 830 [facility] High Bf Polymorphonuclear Cell % 5.5 % 0 -0 % [facility]: 830 [facility] 09/13/2020 TP Body Fluid Normal Total Protein, Body Fl uid 1.4 g/dL not established g/dL [facility]: 83 0 [facility] Normal Source, Body Fluid Tot Protein ascit es [facility]: 830 [facility] 09/13/2020 Albumin, Body Fluid Normal Albumin, Body Fl uid 0.7 g/dL not established g/dL [facility]: 83 0 [facility] Normal Source, Body Fluid Albumin ascites [facility]: 830 [facility] 09/13/2020 Albumin 25% Albumin 25% tra nsfused product: albumin 25% count: 4 [facility] ical Center: [address] [facility] 09/05/2020 CBC W/ Auto Diff Normal White Blood Count 7.3 10 4.0-10.0 10 [facility]: 830 [facility] Low Red Blood Count 3.39 10 4.00-5.40 10 [facility]: 830 [facility] Low Hemoglobin 10.8 g/dL 12.0-15.5 g/dL [facility]: 830 [facility] Low Hematocrit 30.7 % 36.0-47.0 % [facility]: 830 [facility] Normal Mean Corpuscular Volume 90.6 fL 80.0 -96.0 fL Final [facility]: 0 [facility] Normal Mean Corpuscular Hemoglobin 31.9 pg 27.0-33.0 pg Final [facility]: [address] [place] [address] Normal Mean Corpuscular HGB Conc 35.2 g/dL 32.0-36.5 g/dL Final [facility]: [address] [place] [address] High Red Cell Distribution Width 18.1 % 1 1.5-14.5 % [facility]: [address] [place] [address] Low Platelet Count, Automated 141 10 150 -450 10 [facility]: 0 [facility] High Neutrophils % 70.7 % 36.0-66.0 % [facility]: [address] [facility] Low Lymph % 12.1 % 24.0-44.0 % Final [facility]: 8[address] [facility] High [place] % 14.9 % 0.0-5.0 % Final [facility]: [address] [facility] Normal Eos % 1.1 % 0.0-3.0 % [facility]: 0 [facility] Normal Baso % 0.6 % 0.0-1.0 % [facility]: [address] [facility] Normal Immature Granulocyte % 0.6 % 0-3.0 % [facility]: 0 [facility] Normal Nucleated Red Blood Cell % 0.0 % 0- 0 % [facility]: 830 [facility] Normal Neutrophils # 5.1 10 1.5-8.5 10 [facility]: [address] [facility] Low Lymph # 0.9 10 1.5-5.0 10 Final [facility]: [address] [facility] High [place] # 1.1 10 0.0-0.8 10 [facility]: [address] [facility] Normal Eos # 0.1 10 0.0-0.5 10 [facility]: 8[address] [facility] Normal Baso # 0.0 10 0.0-0.2 10 [facility]: [address] [facility] 09/05/2020 PT/PTT, Plasma High Prothrombin Time 20. 0 seconds 12.5-14.3 seconds [facility]: 83 0 [facility] Normal Inr 1.66 [facility]: 830 [facility] High Partial Thromboplastin Time 40.3 sec onds 24.2-38.5 seconds [facility]: 830 [facility] 09/05/2020 Creatinine, Urine Normal Creatinine,random Urine 142.0 mg/dL [facility]: 830 [facility] 09/05/2020 Sodium, Urine Normal Sodium,random Urine 12 mE q/L [facility]: 8[address] [facility] 09/05/2020 Hepatic Function Panel, Serum High AST/SG OT 50 U/L 7-37 U/L [facility]: 830 [facility] Normal ALT/SGPT 26 U/L 12-78 U/L [facility]: [address] [facility] High Alkaline Phosphatase 184 U/L 45-117 U/L [facility]: 830 [facility] High Bilirubin,total 4.3 mg/dL 0.2-1.0 mg /dL [facility]: 830 [facility] High Bilirubin,direct 1.7 mg/dL 0.0-0.2 m g/dL [facility]: 830 [facility] Normal Total Protein 6.8 gm/dL 6.4-8.2 gm/d L [facility]: 830 [facility] Normal Albumin 3.5 gm/dL 3.2-5.2 gm/dL Yu l [facility]: [address] [facility] Low Albumin/globulin Ratio 1.1 1.2-2. 2 [facility]: 830 [facility] 09/05/2020 BMP, Serum or Plasma High Glucose, Fastin g 109 mg/dL 70-100 mg/dL [facility]: 83 0 [facility] High Blood Urea Nitrogen 27 mg/dL 7-18 mg /dL [facility]: [address]30 [facility] High Creatinine for GFR 1.52 mg/dL 0.55-1 .30 mg/dL [facility]: [address] [facility] Low Glomerular Filtration Rate 37.4 >5 1 [facility]: [address] [facility] Low Sodium Level 130 mEq/L 136-145 mEq/L [facility]: 0 [facility] Normal Potassium Serum 3.9 mEq/L 3.5-5.1 mE q/L [facility]: 8[address] [facility] Low Chloride Level 93 mEq/L 98-107 mEq/L [facility]: 830 [facility] Normal Carbon Dioxide Level 29 mEq/L 21-32 mEq/L [facility] 830 [facility] Normal Anion Gap 8 mEq/L 8-16 mEq/L [facility]: 0 [facility] Normal Calcium Level 9.4 mg/dL 8.5-10.1 mg/ dL [facility]: 830 [facility] 09/05/2020 Albumin 25% Albumin 25% tra nsfused product: albumin 25% count: 4 [facility] Center: [address] [facility] 08/30/2020 Cell Count Ascites Fluid Normal Source, Bod y Fluid ascites [facility]: 830 [facility] Normal Ascites fL Color yellow colorless Fi nal [facility]: 0 [facility] Normal Appearance, Body Fluid hazy clear [facility]: 830 [facility] High WBC Body Fluid 98 /uL 0-10 /uL [facility]: 0 [facility] Normal RBC Body Fluid < 2 10 <2 10 [facility]: [address] [facility] High Bf Mononuclear Cell % 96.9 % 0-0 % [facility]: 830 [facility] High Bf Polymorphonuclear Cell % 3.1 % 0 -0 % [facility]: 830 [facility] 08/30/2020 TP Body Fluid Normal Total Protein, Body Fl uid 1.4 g/dL not established g/dL [facility]: 83 0 [facility] Normal Source, Body Fluid Tot Protein ascit es [facility]: 830 [facility] 08/30/2020 Albumin, Body Fluid Normal Albumin, Body Fl uid 0.8 g/dL not established g/dL [facility]: 83 0 [facility] Normal Source, Body Fluid Albumin ascites Final [facility]: 830 [facility] 08/30/2020 Albumin 25% Albumin 25% tra nsfused product: albumin 25% count: 4 [facility] Center: 8[address] [facility] 08/23/2020 Cell Count Ascites Fluid Normal Source, Bod y Fluid ascites [facility]: 830 [facility] Normal Ascites fL Color yellow colorless Fi nal [facility]: [address] [facility] Normal Appearance, Body Fluid cloudy clear [facility]: 830 [facility] High WBC Body Fluid 160 /uL 0-10 /uL Yu l [facility]: 8[address] [facility] Normal RBC Body Fluid 2 10 <2 10 [facility]: 830 [facility] High Bf Mononuclear Cell % 96.3 % 0-0 % [facility]: 830 [facility] High Bf Polymorphonuclear Cell % 3.7 % 0 -0 % [facility]: 830 [facility] 08/23/2020 TP Body Fluid Normal Total Protein, Body Fl uid 1.4 g/dL not established g/dL [facility]: 83 0 [facility] Normal Source, Body Fluid Tot Protein ascit es [facility]: 830 [facility] 08/23/2020 Albumin, Body Fluid Normal Albumin, Body Fl uid 0.9 g/dL not established g/dL [facility]: 83 0 [facility] Normal Source, Body Fluid Albumin ascites [facility]: 830 [facility] 08/23/2020 Albumin 25% Albumin 25% tra nsfused product: albumin 25% count: 4 [facility]: 8[address] [facility] 08/16/2020 CBC W/ Auto Diff Normal White Blood Count 6.8 10 4.0-10.0 10 [facility]: 830 [facility] Low Red Blood Count 3.49 10 4.00-5.40 10 [facility]: 8[address] [facility] Low Hemoglobin 11.3 g/dL 12.0-15.5 g/dL [facility]: 0 [facility] Low Hematocrit 32.5 % 36.0-47.0 % [facility]: 830 [facility] Normal Mean Corpuscular Volume 93.1 fL 80.0 -96.0 fL [facility]: 830 [facility] Normal Mean Corpuscular Hemoglobin 32.4 pg 27.0-33.0 pg [facility]: 830 [facility] Normal Mean Corpuscular HGB Conc 34.8 g/dL 32.0-36.5 g/dL [facility]: 830 [facility] High Red Cell Distribution Width 18.4 % 1 1.5-14.5 % [facility]: [address] [facility] Low Platelet Count, Automated 138 10 150 -450 10 [facility]: [address] [facility] High Neutrophils % 75.2 % 36.0-66.0 % [facility]: [address] [facility] Low Lymph % 11.3 % 24.0-44.0 % [facility]: [address] [facility] High [place] % 11.6 % 0.0-5.0 % [facility]: [address] [facility] Normal Eos % 0.9 % 0.0-3.0 % [facility]: [address] [facility] Normal Baso % 0.6 % 0.0-1.0 % [facility]: 0 [facility] Normal Immature Granulocyte % 0.4 % 0-3.0 % [facility]: 830 [facility] Normal Nucleated Red Blood Cell % 0.0 % 0- 0 % [facility]: 830 [facility] Normal Neutrophils # 5.1 10 1.5-8.5 10 Yu l [facility]: [address] [facility] Low Lymph # 0.8 10 1.5-5.0 10 [facility]: 0 [facility] Normal [place] # 0.8 10 0.0-0.8 10 [facility]: 0 [facility] Normal Eos # 0.1 10 0.0-0.5 10 [facility]: [address] [facility] Normal Baso # 0.0 10 0.0-0.2 10 [facility]: 0 [facility] 08/16/2020 PT/PTT, Plasma High Prothrombin Time 19. 4 seconds 12.5-14.3 seconds [facility]: 83 0 [facility] Normal Inr 1.60 [facility]: 0 [facility] High Partial Thromboplastin Time 39.9 sec onds 24.2-38.5 seconds [facility]: 0 [facility] 08/16/2020 BMP, Serum or Plasma High Glucose, Fastin g 110 mg/dL 70-100 mg/dL [facility]: 83 0 [facility] High Blood Urea Nitrogen 29 mg/dL 7-18 mg /dL [facility]: 0 [facility] Normal Creatinine for GFR 1.03 mg/dL 0.55-1 .30 mg/dL [facility]: 0 [facility] Normal Glomerular Filtration Rate 58.6 >5 1 [facility]: [address] [facility] Low Sodium Level 128 mEq/L 136-145 mEq/L [facility]: 830 [facility] Normal Potassium Serum 5.0 mEq/L 3.5-5.1 mE q/L [facility]: 830 [facility] Low Chloride Level 97 mEq/L 98-107 mEq/L [facility]: 830 [facility] Normal Carbon Dioxide Level 25 mEq/L 21-32 mEq/L [facility]: 8[address] [facility] Low Anion Gap 6 mEq/L 8-16 mEq/L [facility]: 830 [facility] Normal Calcium Level 9.5 mg/dL 8.5-10.1 mg/ dL [facility]: 830 [facility] 08/16/2020 Type + Screen, Serum Normal Blood Type A posit preethi [facility]: 830 [facility] 08/16/2020 Ab Screen Gel Manual Normal Ab Screen Gel M anual negative [facility]: 830 [facility] 08/16/2020 Albumin, Body Fluid Normal Albumin, Body Fl uid 0.7 g/dL not established g/dL [facility]: 83 0 [facility] Normal Source, Body Fluid Albumin ascites [facility]: 830 [facility] 08/16/2020 Cell Count Ascites Fluid Normal Source, Bod y Fluid ascites [facility]: 830 [facility] Normal Ascites fL Color yellow colorless Fi nal [facility]: 830 [facility] Normal Appearance, Body Fluid cloudy clear [facility]: 830 [facility] High WBC Body Fluid 163 /uL 0-10 /uL Yu l [facility]: 8[address] [facility] Normal RBC Body Fluid < 2 10 <2 10 [facility]: 830 [facility] High Bf Mononuclear Cell % 97.6 % 0-0 % [facility]: 830 [facility] High Bf Polymorphonuclear Cell % 2.4 % 0 -0 % [facility]: 830 [facility] 08/16/2020 TP Body Fluid Normal Total Protein, Body Fl uid 1.4 g/dL not established g/dL [facility]: 83 0 [facility] Normal Source, Body Fluid Tot Protein ascit es [facility]: 830 [facility] 08/16/2020 Albumin 25% Albumin 25% tra nsfused product: albumin 25% count: 4 [facility]: 830 [facility] 08/14/2020 Culture, Urine URINE,CLEAN CATCH No observation recorded. [facility]: [address] [facility] 08/10/2020 Cbc Normal White Blood Count 8.6 10 4.0-10. 0 10 [facility]: 830 [facility] Low Red Blood Count 3.14 10 4.00-5.40 10 [facility]: 830 [facility] Low Hemoglobin 10.1 g/dL 12.0-15.5 g/dL [facility]: 830 [facility] Low Hematocrit 28.6 % 36.0-47.0 % [facility]: 830 [facility] Normal Mean Corpuscular Volume 91.1 fL 80.0 -96.0 fL [facility]: 830 [facility] Normal Mean Corpuscular Hemoglobin 32.2 pg 27.0-33.0 pg [facility]: 830 [facility] Normal Mean Corpuscular HGB Conc 35.3 g/dL 32.0-36.5 g/dL [facility]: 830 [facility] High Red Cell Distribution Width 17.7 % 1 1.5-14.5 % [facility]: 0 [facility] Low Platelet Count, Automated 118 10 150 -450 10 [facility]: 830 [facility] Normal Nucleated Red Blood Cell % 0.0 % 0- 0 % [facility]: 830 [facility] 08/10/2020 Creatinine, Urine Normal Creatinine,random Urine 118.0 mg/dL [facility]: 830 [facility] 08/10/2020 Sodium, Urine Normal Sodium,random Urine 16 mE q/L [facility]: 830 [facility] 08/10/2020 Hepatic Function Panel, Serum High AST/SG OT 51 U/L 7-37 U/L [facility]: 830 [facility] Normal ALT/SGPT 30 U/L 12-78 U/L [facility]: 8[address] [facility] High Alkaline Phosphatase 136 U/L 45-117 U/L [facility]: 830 [facility] High Bilirubin,total 4.7 mg/dL 0.2-1.0 mg /dL [facility]: 830 [facility] High Bilirubin,direct 1.6 mg/dL 0.0-0.2 m g/dL [facility]: 830 [facility] Normal Total Protein 7.1 gm/dL 6.4-8.2 gm/d L [facility]: 830 [facility] Normal Albumin 3.8 gm/dL 3.2-5.2 gm/dL Yu l [facility]: 0 [facility] Normal Albumin/globulin Ratio 1.2 1.2-2. 2 [facility]: 830 [facility] 08/10/2020 BMP, Serum or Plasma High Glucose, Fastin g 130 mg/dL 70-100 mg/dL [facility]: 83 0 [facility] High Blood Urea Nitrogen 34 mg/dL 7-18 mg /dL [facility]: 0 [facility] High Creatinine for GFR 1.49 mg/dL 0.55-1 .30 mg/dL [facility]: 0 [facility] Low Glomerular Filtration Rate 38.3 >5 1 [facility]: 0 [facility] Low Sodium Level 127 mEq/L 136-145 mEq/L [facility]: 830 [facility] High Potassium Serum 5.3 mEq/L 3.5-5.1 mE q/L [facility]: 830 [facility] Low Chloride Level 93 mEq/L 98-107 mEq/L [facility]: 830 [facility] Normal Carbon Dioxide Level 28 mEq/L 21-32 mEq/L [facility]: 830 [facility] Low Anion Gap 6 mEq/L 8-16 mEq/L [facility]: 830 [facility] Normal Calcium Level 9.1 mg/dL 8.5-10.1 mg/ dL [facility]: 830 [facility] 08/09/2020 Cell Count Ascites Fluid Normal Source, Bod y Fluid ascites [facility]: 830 [facility] Normal Ascites fL Color yellow colorless Fi nal [facility]: 830 [facility] Normal Appearance, Body Fluid cloudy clear [facility]: 830 [facility] High WBC Body Fluid 152 /uL 0-10 /uL Yu l [facility]: 830 [facility] Normal RBC Body Fluid 3 10 <2 10 [facility]: 830 [facility] High Bf Mononuclear Cell % 96.7 % 0-0 % [facility]: 830 [facility] High Bf Polymorphonuclear Cell % 3.3 % 0 -0 % [facility]: 830 [facility] 08/09/2020 TP Body Fluid Normal Total Protein, Body Fl uid 1.3 g/dL not established g/dL [facility]: 83 0 [facility] Normal Source, Body Fluid Tot Protein ascit es [facility]: 830 [facility] 08/09/2020 Albumin, Body Fluid Normal Albumin, Body Fl uid 0.7 g/dL not established g/dL [facility]: 83 0 [facility] Normal Source, Body Fluid Albumin ascites [facility]: 830 [facility] 08/09/2020 Albumin 25% Albumin 25% tra nsfused product: albumin 25% count: 4 Final [facility] Center: 830 [facility] 08/02/2020 Cell Count Ascites Fluid Normal Source, Bod y Fluid ascites Final [facility]: 830 [facility] Normal Ascites fL Color yellow colorless Fi nal [facility]: 830 [facility] Normal Appearance, Body Fluid cloudy clear Final [facility]: 8[address] [facility] High WBC Body Fluid 149 /uL 0-10 /uL Yu l [facility]: 8[address] [facility] Normal RBC Body Fluid < 2 10 <2 10 [facility]: 830 [facility] High Bf Mononuclear Cell % 97.3 % 0-0 % [facility]: 830 [facility] High Bf Polymorphonuclear Cell % 2.7 % 0 -0 % [facility]: 830 [facility] 08/02/2020 TP Body Fluid Normal Total Protein, Body Fl uid 1.2 g/dL not established g/dL [facility]: 83 0 [facility] Normal Source, Body Fluid Tot Protein ascit es [facility]: 830 [facility] 08/02/2020 Albumin, Body Fluid Normal Albumin, Body Fl uid 0.7 g/dL not established g/dL [facility]: 83 0 [facility] Normal Source, Body Fluid Albumin ascites Final [facility]: 830 [facility] 08/02/2020 Albumin 25% Albumin 25% tra nsfused product: albumin 25% count: 4 Final [facility] ical Center: 830 [facility] Past Encounters 10/09/2020 Compression Fracture of Lumbar Spine; Ascites Due to Alcoholic Cirrhosis; Major Depressive Disorder Wai Berrios, RPA-C: [address] [facility], [facility] [address] [address], Ph. 09/10/2020 Compression Fracture of Lumbar Spine; Osteopenia; Ascites Due to Alcoholic Cirrhosis; Nondependent Alcohol Abuse in Remission Wai Martinez OLIMPIA Berrios-C: [address], [place] [address], Ph. 08/14/2020 Backache; Acute Nontraumatic Kidney Injury Wai BerriosOLIMPIA-C: [address], [place] [address], Ph. Social History Tobacco Smoking Status Light Tobacco Smoker (1 PPW) Vaccine List Vaccine Type influenza, injectable, quadrivalent 08/17/2020 Plan of Care Reminders Provider Appointments None recorded. Lab None recorded. Referral None recorded. Procedures None recorded. Surgeries None recorded. Imaging None recorded. Vitals 10/09/2020 10:30AM TELEHEALTH 20 Height 61 in 09/10/2020 09:10AM ESTABLISHED [id number] Height Weight BMI Blood Pressure 61 in [...]
--- OUTSIDE RECORDS SUMMARY | 2020-11-14 21:40 | CCD ---
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 Active Not available DOK 100 mg capsule [...] available lactulose 10 gram/15 mL oral solution Active [...] Not avail able tramadol 50 mg tablet Active Not availa ble trazodone 50 mg tablet Active Not avail able zaleplon 5 mg capsule TAKE ONE CAPSULE [...] Compression Fracture of Lumbar Spine Active 09/10/2020 Procedures Date Name Performed by 08/29/2020 XR, Thoracic Spine [facility] [address] [place] [id number] (Work Place) 08/29/2020 XR, Lumbosacral Spine [facility] [address] [place] [id number] (Work Place) Notes: section, tubal, lump rem viola from left breast, polyp removed from vocal cords Results Lab Results Date Name Specimen Result Interpretation Description Value Range Status Address 09/05/2020 CBC W/ Auto Diff Normal White Blood Count 7.3 10 4.0-10.0 10 [facility]: 0 [facility] Low Red Blood Count 3.39 10 4.00-5.40 10 [facility]: 0 [facility] Low Hemoglobin 10.8 g/dL 12.0-15.5 g/dL [facility]: 0 [facility] Low Hematocrit 30.7 % 36.0-47.0 % [facility]: [address] [place] [address] Normal Mean Corpuscular Volume 90.6 fL 80.0 -96.0 fL [facility]: [address] [place] [address] Normal Mean Corpuscular Hemoglobin 31.9 pg 27.0-33.0 pg Final [facility]: [address] [place] [address] Normal Mean Corpuscular HGB Conc 35.2 g/dL 32.0-36.5 g/dL [facility]: [address] [place] [address] High Red Cell Distribution Width 18.1 % 1 1.5-14.5 % [facility]: [address] [place] [address] Low Platelet Count, Automated 141 10 150 -450 10 [facility]: 0 [facility] High Neutrophils % 70.7 % 36.0-66.0 % [facility]: [address] [facility] Low Lymph % 12.1 % 24.0-44.0 % [facility]: [address] [facility] High [place] % 14.9 % 0.0-5.0 % [facility]: [address] [facility] Normal Eos % 1.1 % 0.0-3.0 % [facility]: 0 [facility] Normal Baso % 0.6 % 0.0-1.0 % [facility]: [address] [place] [address] Normal Immature Granulocyte % 0.6 % 0-3.0 % [facility]: 0 [facility] Normal Nucleated Red Blood Cell % 0.0 % 0- 0 % [facility]: [address] [facility] Normal Neutrophils # 5.1 10 1.5-8.5 10 [facility]: 0 [facility] Low Lymph # 0.9 10 1.5-5.0 10 [facility]: 0 [facility] High [place] # 1.1 10 0.0-0.8 10 [facility]: [address] [facility] Normal Eos # 0.1 10 0.0-0.5 10 [facility]: [address] [facility] Normal Baso # 0.0 10 0.0-0.2 10 [facility]: [address] [facility] 09/05/2020 PT/PTT, Plasma High Prothrombin Time 20. 0 seconds 12.5-14.3 seconds [facility]: 83 0 [facility] Normal Inr 1.66 [facility]: [address] [facility] High Partial Thromboplastin Time 40.3 sec onds 24.2-38.5 seconds [facility]: [address] [facility] 09/05/2020 Creatinine, Urine Normal Creatinine,random Urine 142.0 mg/dL [facility]: 0 [facility] 09/05/2020 Sodium, Urine Normal Sodium,random Urine 12 mE q/L [facility]: [address] [facility] 09/05/2020 Hepatic Function Panel, Serum High AST/SG OT 50 U/L 7-37 U/L [facility]: [address] [facility] Normal ALT/SGPT 26 U/L 12-78 U/L [facility]: [address] [facility] High Alkaline Phosphatase 184 U/L 45-117 U/L [facility]: 0 [facility] High Bilirubin,total 4.3 mg/dL 0.2-1.0 mg /dL [facility]: 0 [facility] High Bilirubin,direct 1.7 mg/dL 0.0-0.2 m g/dL [facility]: [address] [facility] Normal Total Protein 6.8 gm/dL 6.4-8.2 gm/d L [facility]: [address] [facility] Normal Albumin 3.5 gm/dL 3.2-5.2 gm/dL Yu l [facility]: [address] [facility] Low Albumin/globulin Ratio 1.1 1.2-2. 2 [facility]: 0 [facility] 09/05/2020 BMP, Serum or Plasma High Glucose, Fastin g 109 mg/dL 70-100 mg/dL [facility]: 83 0 [facility] High Blood Urea Nitrogen 27 mg/dL 7-18 mg /dL [facility]: [address] [facility] High Creatinine for GFR 1.52 mg/dL 0.55-1 .30 mg/dL [facility]: [address] [facility] Low Glomerular Filtration Rate 37.4 >5 1 [facility]: [address] [facility] Low Sodium Level 130 mEq/L 136-145 mEq/L [facility]: [address] [facility] Normal Potassium Serum 3.9 mEq/L 3.5-5.1 mE q/L [facility]: [address] [facility] Low Chloride Level 93 mEq/L 98-107 mEq/L [facility]: [address] [facility] Normal Carbon Dioxide Level 29 mEq/L 21-32 mEq/L [facility]: [address] [facility] Normal Anion Gap 8 mEq/L 8-16 mEq/L [facility]: [address] [facility] Normal Calcium Level 9.4 mg/dL 8.5-10.1 mg/ dL [facility]: [address] [facility] 09/05/2020 Albumin 25% Albumin 25% tra nsfused product: albumin 25% count: 4 [facility] ical Center: [address] [facility] 08/30/2020 Cell Count Ascites Fluid Normal Source, Bod y Fluid ascites [facility]: [address] [facility] Normal Ascites fL Color yellow colorless Fi nal [facility]: [address] [facility] Normal Appearance, Body Fluid hazy clear [facility]: [address] [facility] High WBC Body Fluid 98 /uL 0-10 /uL [facility]: [address] [facility] Normal RBC Body Fluid < 2 10 <2 10 [facility]: 0 [facility] High Bf Mononuclear Cell % 96.9 % 0-0 % [facility]: [address] [facility] High Bf Polymorphonuclear Cell % 3.1 % 0 -0 % [facility]: [address] [facility] 08/30/2020 TP Body Fluid Normal Total Protein, Body Fl uid 1.4 g/dL not established g/dL [facility]: 83 0 [facility] Normal Source, Body Fluid Tot Protein ascit es [facility]: [address] [facility] 08/30/2020 Albumin, Body Fluid Normal Albumin, Body Fl uid 0.8 g/dL not established g/dL [facility]: 83 0 [facility] Normal Source, Body Fluid Albumin ascites Final [facility]: [address] [facility] 08/30/2020 Albumin 25% Albumin 25% tra nsfused product: albumin 25% count: [address] [facility] ical Center: [address] [facility] 08/23/2020 Cell Count Ascites Fluid Normal Source, Bod y Fluid ascites Final [facility]: [address] [facility] Normal Ascites fL Color yellow colorless Fi nal [facility]: [address] [facility] Normal Appearance, Body Fluid cloudy clear [facility]: [address] [facility] High WBC Body Fluid 160 /uL 0-10 /uL Yu l [facility]: [address] [facility] Normal RBC Body Fluid 2 10 <2 10 [facility]: [address] [facility] High Bf Mononuclear Cell % 96.3 % 0-0 % [facility]: [address] [facility] High Bf Polymorphonuclear Cell % 3.7 % 0 -0 % [facility]: [address] [facility] 08/23/2020 TP Body Fluid Normal Total Protein, Body Fl uid 1.4 g/dL not established g/dL [facility]: 83 0 [facility] Normal Source, Body Fluid Tot Protein ascit es [facility]: [address] [facility] 08/23/2020 Albumin, Body Fluid Normal Albumin, Body Fl uid 0.9 g/dL not established g/dL [facility]: 83 0 [facility] Normal Source, Body Fluid Albumin ascites [facility]: [address] [facility] 08/23/2020 Albumin 25% Albumin 25% tra nsfused product: albumin 25% count: 4 [facility] ical Center: [address] [facility] 08/16/2020 CBC W/ Auto Diff Normal White Blood Count 6.8 10 4.0-10.0 10 [facility]: [address] [facility] Low Red Blood Count 3.49 10 4.00-5.40 10 [facility]: [address] [facility] Low Hemoglobin 11.3 g/dL 12.0-15.5 g/dL [facility]: 0 [facility] Low Hematocrit 32.5 % 36.0-47.0 % [facility]: [address] [facility] Normal Mean Corpuscular Volume 93.1 fL 80.0 -96.0 fL [facility]: [address] [facility] Normal Mean Corpuscular Hemoglobin 32.4 pg 27.0-33.0 pg [facility]: [address] [facility] Normal Mean Corpuscular HGB Conc 34.8 g/dL 32.0-36.5 g/dL [facility]: [address] [facility] High Red Cell Distribution Width 18.4 % 1 1.5-14.5 % [facility]: [address] [facility] Low Platelet Count, Automated 138 10 150 -450 10 [facility]: [address] [facility] High Neutrophils % 75.2 % 36.0-66.0 % [facility]: [address] [facility] Low Lymph % 11.3 % 24.0-44.0 % [facility]: [address] [facility] High [place] % 11.6 % 0.0-5.0 % [facility]: [address] [facility] Normal Eos % 0.9 % 0.0-3.0 % [facility]: [address] [facility] Normal Baso % 0.6 % 0.0-1.0 % [facility]: [address] [facility] Normal Immature Granulocyte % 0.4 % 0-3.0 % [facility]: [address] [facility] Normal Nucleated Red Blood Cell % 0.0 % 0- 0 % [facility]: [address] [facility] Normal Neutrophils # 5.1 10 1.5-8.5 10 [facility] [address] [facility] Low Lymph # 0.8 10 1.5-5.0 10 [facility]: [address] [facility] Normal [place] # 0.8 10 0.0-0.8 10 [facility]: [address] [facility] Normal Eos # 0.1 10 0.0-0.5 10 [facility]: [address] [facility] Normal Baso # 0.0 10 0.0-0.2 10 [facility]: [address] [facility] 08/16/2020 PT/PTT, Plasma High Prothrombin Time 19. 4 seconds 12.5-14.3 seconds [facility]: 83 0 [facility] Normal Inr 1.60 [facility]: 0 [facility] High Partial Thromboplastin Time 39.9 sec onds 24.2-38.5 seconds [facility]: [address] [facility] 08/16/2020 BMP, Serum or Plasma High Glucose, Fastin g 110 mg/dL 70-100 mg/dL [facility]: 83 0 [facility] High Blood Urea Nitrogen 29 mg/dL 7-18 mg /dL [facility]: 0 [facility] Normal Creatinine for GFR 1.03 mg/dL 0.55-1 .30 mg/dL [facility]: 0 [facility] Normal Glomerular Filtration Rate 58.6 >5 1 [facility]: [address] [facility] Low Sodium Level 128 mEq/L 136-145 mEq/L [facility]: [address] [facility] Normal Potassium Serum 5.0 mEq/L 3.5-5.1 mE q/L [facility]: [address] [facility] Low Chloride Level 97 mEq/L 98-107 mEq/L [facility]: [address] [facility] Normal Carbon Dioxide Level 25 mEq/L 21-32 mEq/L [facility]: [address] [facility] Low Anion Gap 6 mEq/L 8-16 mEq/L [facility]: [address] [facility] Normal Calcium Level 9.5 mg/dL 8.5-10.1 mg/ dL [facility]: [address] [facility] 08/16/2020 Type + Screen, Serum Normal Blood Type A posit preethi [facility]: [address] [facility] 08/16/2020 Ab Screen Gel Manual Normal Ab Screen Gel M anual negative [facility]: [address] [facility] 08/16/2020 Albumin, Body Fluid Normal Albumin, Body Fl uid 0.7 g/dL not established g/dL [facility]: 83 0 [facility] Normal Source, Body Fluid Albumin ascites [facility]: [address] [facility] 08/16/2020 Cell Count Ascites Fluid Normal Source, Bod y Fluid ascites [facility]: [address] [facility] Normal Ascites fL Color yellow colorless Fi nal [facility]: [address] [facility] Normal Appearance, Body Fluid cloudy clear [facility]: [address] [facility] High WBC Body Fluid 163 /uL 0-10 /uL Yu l [facility]: [address] [facility] Normal RBC Body Fluid < 2 10 <2 10 [facility]: [address] [facility] High Bf Mononuclear Cell % 97.6 % 0-0 % [facility]: [address] [facility] High Bf Polymorphonuclear Cell % 2.4 % 0 -0 % [facility]: [address] [facility] 08/16/2020 TP Body Fluid Normal Total Protein, Body Fl uid 1.4 g/dL not established g/dL [facility]: 83 0 [facility] Normal Source, Body Fluid Tot Protein ascit es [facility]: [address] [facility] 08/16/2020 Albumin 25% Albumin 25% tra nsfused product: albumin 25% count: 4 [facility]: [address] [facility] 08/14/2020 Culture, Urine URINE,CLEAN CATCH No observation recorded. [facility]: 0 [facility] 08/10/2020 Cbc Normal White Blood Count 8.6 10 4.0-10. 0 10 [facility]: 0 [facility] Low Red Blood Count 3.14 10 4.00-5.40 10 [facility]: [address] [facility] Low Hemoglobin 10.1 g/dL 12.0-15.5 g/dL [facility]: [address] [facility] Low Hematocrit 28.6 % 36.0-47.0 % [facility]: 0 [facility] Normal Mean Corpuscular Volume 91.1 fL 80.0 -96.0 fL [facility]: [address] [facility] Normal Mean Corpuscular Hemoglobin 32.2 pg 27.0-33.0 pg [facility]: [address] [facility] Normal Mean Corpuscular HGB Conc 35.3 g/dL 32.0-36.5 g/dL [facility]: [address] [facility] High Red Cell Distribution Width 17.7 % 1 1.5-14.5 % [facility]: 0 [facility] Low Platelet Count, Automated 118 10 150 -450 10 [facility]: 0 [facility] Normal Nucleated Red Blood Cell % 0.0 % 0- 0 % [facility]: [address] [facility] 08/10/2020 Creatinine, Urine Normal Creatinine,random Urine 118.0 mg/dL [facility]: 0 [facility] 08/10/2020 Sodium, Urine Normal Sodium,random Urine 16 mE q/L [facility]: [address] [facility] 08/10/2020 Hepatic Function Panel, Serum High AST/SG OT 51 U/L 7-37 U/L [facility]: [address] [facility] Normal ALT/SGPT 30 U/L 12-78 U/L [facility]: [address] [facility] High Alkaline Phosphatase 136 U/L 45-117 U/L [facility]: 0 [facility] High Bilirubin,total 4.7 mg/dL 0.2-1.0 mg /dL [facility]: 0 [facility] High Bilirubin,direct 1.6 mg/dL 0.0-0.2 m g/dL [facility]: 0 [facility] Normal Total Protein 7.1 gm/dL 6.4-8.2 gm/d L [facility]: 0 [facility] Normal Albumin 3.8 gm/dL 3.2-5.2 gm/dL Yu l [facility]: 0 [facility] Normal Albumin/globulin Ratio 1.2 1.2-2. 2 [facility]: 0 [facility] 08/10/2020 BMP, Serum or Plasma High Glucose, Fastin g 130 mg/dL 70-100 mg/dL [facility]: 83 0 [facility] High Blood Urea Nitrogen 34 mg/dL 7-18 mg /dL [facility]: 0 [facility] High Creatinine for GFR 1.49 mg/dL 0.55-1 .30 mg/dL [facility]: 0 [facility] Low Glomerular Filtration Rate 38.3 >5 1 [facility]: 0 [facility] Low Sodium Level 127 mEq/L 136-145 mEq/L [facility]: [address] [facility] High Potassium Serum 5.3 mEq/L 3.5-5.1 mE q/L [facility]: [address] [facility] Low Chloride Level 93 mEq/L 98-107 mEq/L [facility]: [address] [facility] Normal Carbon Dioxide Level 28 mEq/L 21-32 mEq/L [facility]: [address] [facility] Low Anion Gap 6 mEq/L 8-16 mEq/L [facility]: [address] [facility] Normal Calcium Level 9.1 mg/dL 8.5-10.1 mg/ dL [facility]: [address] [facility] 08/09/2020 Cell Count Ascites Fluid Normal Source, Bod y Fluid ascites Final [facility]: [address] [facility] Normal Ascites fL Color yellow colorless Fi nal [facility]: [address] [facility] Normal Appearance, Body Fluid cloudy clear [facility]: [address] [facility] High WBC Body Fluid 152 /uL 0-10 /uL Yu l [facility]: [address] [facility] Normal RBC Body Fluid 3 10 <2 10 [facility]: [address] [facility] High Bf Mononuclear Cell % 96.7 % 0-0 % [facility]: [address] [facility] High Bf Polymorphonuclear Cell % 3.3 % 0 -0 % [facility]: [address] [facility] 08/09/2020 TP Body Fluid Normal Total Protein, Body Fl uid 1.3 g/dL not established g/dL [facility]: 83 0 [facility] Normal Source, Body Fluid Tot Protein ascit es [facility]: [address] [facility] 08/09/2020 Albumin, Body Fluid Normal Albumin, Body Fl uid 0.7 g/dL not established g/dL [facility]: 83 0 [facility] Normal Source, Body Fluid Albumin ascites [facility]: [address] [facility] 08/09/2020 Albumin 25% Albumin 25% tra nsfused product: albumin 25% count: [address] [facility] ical Center: [address] [facility] 08/02/2020 Cell Count Ascites Fluid Normal Source, Bod y Fluid ascites Final [facility]: [address] [facility] Normal Ascites fL Color yellow colorless Fi nal [facility]: [address] [facility] Normal Appearance, Body Fluid cloudy clear Final [facility]: [address] [facility] High WBC Body Fluid 149 /uL 0-10 /uL Yu l [facility]: [address] [facility] Normal RBC Body Fluid < 2 10 <2 10 [facility]: [address] [facility] High Bf Mononuclear Cell % 97.3 % 0-0 % [facility]: [address] [facility] Bf Polymorphonuclear Cell % 2.7 % 0 -0 % [facility]: [address] [facility] 08/02/2020 TP Body Fluid Normal Total Protein, Body Fl uid 1.2 g/dL not established g/dL [facility]: 83 0 [facility] Normal Source, Body Fluid Tot Protein ascit es [facility]: [address] [facility] 08/02/2020 Albumin, Body Fluid Normal Albumin, Body Fl uid 0.7 g/dL not established g/dL [facility]: 83 0 [facility] Normal Source, Body Fluid Albumin ascites Final [facility]: [address] [facility] 08/02/2020 Albumin 25% Albumin 25% tra nsfused product: albumin 25% count: [address] [facility] ical Center: [address] [facility] Urinalysis, Dipstick Leukocytes neg [facility] Medical: [address], [place] Nitrite negative [facility] M edical: [address], [place] Urobilinogen positive [facility] Medical: [address] [place] Protein 0.15 [facility] Med ical: [address], [place] Ph 5.0 [facility] Medica l: [address], [place] Blood neg [facility] Medic al: [address], [place] Specific [place] 1.025 [facility] Medical: [address], [place] Ketone 0.5 [facility] Medi hemant: [address], [place] Bilirubin neg [facility] M edical: [address], [place] Glucose neg [facility] Med ical: [address], [place] Appearance cloudy [facility] Medical: [address], [place] Color zulma [facility] Medic al: [address] [facility] [address], [place] Past Encounters 09/10/2020 Compression Fracture of Lumbar Spine; Osteopenia; Ascites Due to Alcoholic Cirrhosis; Nondependent Alcohol Abuse in Remission Wai Berrios [facility]: [address] [facility] [address], [place] [address], Ph. 08/14/2020 Backache; Acute Nontraumatic Kidney Injury Wai Berrios [facility]: [address] [facility] [address], [place] [address], Ph. Social History Tobacco Smoking Status Light Tobacco Smoker (1 PPW) Vaccine List Vaccine Type influenza, injectable, quadrivalent 08/17/2020 Plan of Care Reminders Provider Appointments None recorded. Lab None recorded. Referral None recorded. Procedures None recorded. Surgeries None recorded. Imaging None recorded. Vitals 09/10/2020 09:10AM ESTABLISHED [id number] Height Weight BMI Blood Pressure 61 in [...]
--- OUTSIDE RECORDS SUMMARY | 2020-11-14 21:40 | CCD ---
Author Organization Unknown Address [address] [place] [address] Phone [phone] Care Team Providers Care Banking Consultant Name Role Phone Wai Berrios Unavailable Unavailable Allergies Code Code System Name Reaction Severity Status Onset [id number] RxNorm Ramelteon Active 05/10/2020 Medications Name Status Start Date Stop Date cephalexin 500 mg capsule TAKE ONE CAPSULE BY MOUTH THREE TIMES A DAY Active Not available Cipro 500 mg tablet Take 1 tablet [...] susp. INJECT INTO THE LEFT ARM DIRECTED Active No t available folic acid 1 mg tablet Take 1 tablet every day by oral route. Active Not available furosemide 20 mg tablet TAKE ONE TABLET BY MOUTH EVERY DAY Completed 12/2019 furosemide 40 mg tablet TAKE 1.5 tablet QAM and 1.5 tablet QPM Active Not available gabapentin 300 mg capsule Take 2 capsules every day by oral route at bedtime. Active Not available hydroxyzine HCl 25 mg tablet Active Not [...] available pantoprazole 40 mg tablet,delayed releas e Take 1 tablet every day by oral route in the morning. Active Not available potassium chloride ER 20 mEq tablet,exte nded release(part/cryst) TAKE ONE TABLET BY MOUTH EVERY DAY Active Not available Shingrix (PF) 50 mcg/0.5 mL intramuscular suspension, kit Active Not available spironolactone 25 mg tablet TAKE ONE TABLET BY MOUTH EVERY DAY Completed 12/2019 spironolactone 50 mg tablet Take 3 tablets twice a day by oral route. Active Not available thiamine HCl (vitamin B1) 100 mg tablet TAKE ONE TABLET BY MOUTH EVERY DAY Active Not available torsemide 20 mg tablet Active Not avail able trazodone 50 mg tablet Active Not avail [...] History Procedure by Method Unknown 06/11/2020 History Procedures Notes: section, tubal, lump rem viola from left breast, polyp removed from vocal cords Results Lab Results Date Name Specimen Result Interpretation Description Value Range Status Address 08/23/2020 Cell Count Ascites Fluid Normal Source, Bod y Fluid ascites Final [facility]: [address] [facility] Normal Ascites fL Color yellow colorless Fi nal [facility]: [address] [facility] Normal Appearance, Body Fluid cloudy clear [facility]: [address] [facility] High WBC Body Fluid 160 /uL 0-10 /uL Yu l [facility]: [address] [facility] Normal RBC Body Fluid 2 10 <2 10 [facility]: [address] [facility] High Bf Mononuclear Cell % 96.3 % 0-0 % [facility]: [address] [facility] High Bf Polymorphonuclear Cell % 3.7 % 0 -0 % [facility]: [address] [facility] 08/23/2020 TP Body Fluid Normal Total Protein, Body Fl uid 1.4 g/dL not established g/dL [facility]: [address] [facility] Normal Source, Body Fluid Tot Protein ascit es [facility]: [address] [facility] 08/23/2020 Albumin, Body Fluid Normal Albumin, Body Fl uid 0.9 g/dL not established g/dL [facility]: [address] [facility] Normal Source, Body Fluid Albumin ascites Final [facility]: [address] [facility] 08/23/2020 Albumin 25% Albumin 25% tra nsfused product: albumin 25% count: 4 [facility] ical Center: [address] [facility] 08/16/2020 CBC W/ Auto Diff Normal White Blood Count 6.8 10 4.0-10.0 10 [facility]: [address] [facility] Low Red Blood Count 3.49 10 4.00-5.40 10 [facility]: [address] [facility] Low Hemoglobin 11.3 g/dL 12.0-15.5 g/dL [facility]: [address] [facility] Low Hematocrit 32.5 % 36.0-47.0 % [facility]: [address] [facility] Normal Mean Corpuscular Volume 93.1 fL 80.0 -96.0 fL [facility]: [address] [facility] Normal Mean Corpuscular Hemoglobin 32.4 pg 27.0-33.0 pg [facility]: [address] [facility] Normal Mean Corpuscular HGB Conc 34.8 g/dL 32.0-36.5 g/dL [facility]: [address] [facility] High Red Cell Distribution Width 18.4 % 1 1.5-14.5 % [facility]: [address] [facility] Low Platelet Count, Automated 138 10 150 -450 10 [facility]: [address] [facility] High Neutrophils % 75.2 % 36.0-66.0 % [facility]: [address] [facility] Low Lymph % 11.3 % 24.0-44.0 % [facility]: [address] [facility] High Sullivan % 11.6 % 0.0-5.0 % [facility]: [address] [facility] Normal Eos % 0.9 % 0.0-3.0 % [facility]: [address] [facility] Normal Baso % 0.6 % 0.0-1.0 % [facility]: [address] [facility] Normal Immature Granulocyte % 0.4 % 0-3.0 % [facility]: [address] [facility] Normal Nucleated Red Blood Cell % 0.0 % 0- 0 % [facility]: [address] [facility] Normal Neutrophils # 5.1 10 1.5-8.5 10 Yu [facility]: [address] [facility] Low Lymph # 0.8 10 1.5-5.0 10 [facility]: [address] [facility] Normal Sullivan # 0.8 10 0.0-0.8 10 [facility]: [address] [facility] Normal Eos # 0.1 10 0.0-0.5 10 [facility]: [address] [facility] Normal Baso # 0.0 10 0.0-0.2 10 [facility]: [address] [facility] 08/16/2020 PT/PTT, Plasma High Prothrombin Time 19. 4 seconds 12.5-14.3 seconds [facility]: [address] [facility] Normal Inr 1.60 [facility]: 0 [facility] High Partial Thromboplastin Time 39.9 sec onds 24.2-38.5 seconds [facility]: [address] [facility] 08/16/2020 BMP, Serum or Plasma High Glucose, Fastin g 110 mg/dL 70-100 mg/dL [facility]: [address] [facility] High Blood Urea Nitrogen 29 mg/dL 7-18 mg /dL [facility]: 0 [facility] Normal Creatinine for GFR 1.03 mg/dL 0.55-1 .30 mg/dL [facility]: 0 [facility] Normal Glomerular Filtration Rate 58.6 >5 1 [facility]: [address] [facility] Low Sodium Level 128 mEq/L 136-145 mEq/L [facility]: [address] [facility] Normal Potassium Serum 5.0 mEq/L 3.5-5.1 mE q/L [facility]: [address] [facility] Low Chloride Level 97 mEq/L 98-107 mEq/L [facility]: [address] [facility] Normal Carbon Dioxide Level 25 mEq/L 21-32 mEq/L [facility]: [address] [facility] Low Anion Gap 6 mEq/L 8-16 mEq/L [facility]: [address] [facility] Normal Calcium Level 9.5 mg/dL 8.5-10.1 mg/ dL [facility]: [address] [facility] 08/16/2020 Type + Screen, Serum Normal Blood Type A posit preethi [facility]: [address] [facility] 08/16/2020 Ab Screen Gel Manual Normal Ab Screen Gel M anual negative [facility]: [address] [facility] 08/16/2020 Albumin, Body Fluid Normal Albumin, Body Fl uid 0.7 g/dL not established g/dL [facility]: [address] [facility] Normal Source, Body Fluid Albumin ascites [facility]: [address] [facility] 08/16/2020 Cell Count Ascites Fluid Normal Source, Bod y Fluid ascites [facility]: [address] [facility] Normal Ascites fL Color yellow colorless Fi nal [facility]: [address] [facility] Normal Appearance, Body Fluid cloudy clear [facility]: [address] [facility] High WBC Body Fluid 163 /uL 0-10 /uL Yu l [facility]: [address] [facility] Normal RBC Body Fluid < 2 10 <2 10 [facility]: [address] [facility] High Bf Mononuclear Cell % 97.6 % 0-0 % [facility]: [address] [facility] High Bf Polymorphonuclear Cell % 2.4 % 0 -0 % [facility]: [address] [facility] 08/16/2020 TP Body Fluid Normal Total Protein, Body Fl uid 1.4 g/dL not established g/dL [facility]: [address] [facility] Normal Source, Body Fluid Tot Protein ascit es [facility]: [address] [facility] 08/16/2020 Albumin 25% Albumin 25% tra nsfused product: albumin 25% count: 4 [facility] ica Center: [address] [facility] 08/14/2020 Culture, Urine URINE,CLEAN CATCH No observation recorded. [facility]: 0 [facility] 08/10/2020 Cbc Normal White Blood Count 8.6 10 4.0-10. 0 10 [facility]: 0 [facility] Low Red Blood Count 3.14 10 4.00-5.40 10 [facility]: [address] [facility] Low Hemoglobin 10.1 g/dL 12.0-15.5 g/dL [facility]: [address] [facility] Low Hematocrit 28.6 % 36.0-47.0 % [facility]: 0 [facility] Normal Mean Corpuscular Volume 91.1 fL 80.0 -96.0 fL [facility]: 0 [facility] Normal Mean Corpuscular Hemoglobin 32.2 pg 27.0-33.0 pg [facility]: [address] [facility] Normal Mean Corpuscular HGB Conc 35.3 g/dL 32.0-36.5 g/dL [facility]: 0 [facility] High Red Cell Distribution Width 17.7 % 1 1.5-14.5 % [facility]: 0 [facility] Low Platelet Count, Automated 118 10 150 -450 10 [facility]: 0 [facility] Normal Nucleated Red Blood Cell % 0.0 % 0- 0 % [facility]: 0 [facility] 08/10/2020 Creatinine, Urine Normal Creatinine,random Urine 118.0 mg/dL [facility]: [address] [facility] 08/10/2020 Sodium, Urine Normal Sodium,random Urine 16 mE q/L [facility]: [address] [facility] 08/10/2020 Hepatic Function Panel, Serum High AST/SG OT 51 U/L 7-37 U/L [facility]: [address] [facility] Normal ALT/SGPT 30 U/L 12-78 U/L [facility]: [address] [facility] High Alkaline Phosphatase 136 U/L 45-117 U/L [facility]: 0 [facility] High Bilirubin,total 4.7 mg/dL 0.2-1.0 mg /dL [facility]: 0 [facility] High Bilirubin,direct 1.6 mg/dL 0.0-0.2 m g/dL [facility]: [address] [facility] Normal Total Protein 7.1 gm/dL 6.4-8.2 gm/d L [facility]: [address] [facility] Normal Albumin 3.8 gm/dL 3.2-5.2 gm/dL Yu l [facility]: 0 [facility] Normal Albumin/globulin Ratio 1.2 1.2-2. 2 [facility]: 0 [facility] 08/10/2020 BMP, Serum or Plasma High Glucose, Fastin g 130 mg/dL 70-100 mg/dL [facility]: [address] [facility] High Blood Urea Nitrogen 34 mg/dL 7-18 mg /dL [facility]: 0 [facility] High Creatinine for GFR 1.49 mg/dL 0.55-1 .30 mg/dL [facility]: 0 [facility] Low Glomerular Filtration Rate 38.3 >5 1 [facility]: 0 [facility] Low Sodium Level 127 mEq/L 136-145 mEq/L [facility]: [address] [facility] High Potassium Serum 5.3 mEq/L 3.5-5.1 mE q/L [facility]: [address] [facility] Low Chloride Level 93 mEq/L 98-107 mEq/L [facility]: [address] [facility] Normal Carbon Dioxide Level 28 mEq/L 21-32 mEq/L [facility]: [address] [facility] Low Anion Gap 6 mEq/L 8-16 mEq/L [facility]: [address] [facility] Normal Calcium Level 9.1 mg/dL 8.5-10.1 mg/ dL [facility]: [address] [facility] 08/09/2020 Cell Count Ascites Fluid Normal Source, Bod y Fluid ascites [facility]: [address] [facility] Normal Ascites fL Color yellow colorless Fi nal [facility]: [address] [facility] Normal Appearance, Body Fluid cloudy clear [facility]: [address] [facility] High WBC Body Fluid 152 /uL 0-10 /uL Yu l [facility]: [address] [facility] Normal RBC Body Fluid 3 10 <2 10 [facility]: [address] [facility] High Bf Mononuclear Cell % 96.7 % 0-0 % [facility]: [address] [facility] High Bf Polymorphonuclear Cell % 3.3 % 0 -0 % [facility]: [address] [facility] 08/09/2020 TP Body Fluid Normal Total Protein, Body Fl uid 1.3 g/dL not established g/dL [facility]: [address] [facility] Normal Source, Body Fluid Tot Protein ascit es [facility]: [address] [facility] 08/09/2020 Albumin, Body Fluid Normal Albumin, Body Fl uid 0.7 g/dL not established g/dL [facility]: [address] [facility] Normal Source, Body Fluid Albumin ascites [facility]: [address] [facility] 08/09/2020 Albumin 25% Albumin 25% tra nsfused product: albumin 25% count: 4 Final [facility] ical Center: [address] [facility] 08/02/2020 Cell Count Ascites Fluid Normal Source, Bod y Fluid ascites Final [facility]: [address] [facility] Normal Ascites fL Color yellow colorless Fi nal [facility]: [address] [facility] Normal Appearance, Body Fluid cloudy clear Final [facility]: [address] [facility] High WBC Body Fluid 149 /uL 0-10 /uL Yu l [facility]: [address] [facility] Normal RBC Body Fluid < 2 10 <2 10 [facility]: [address] [facility] High Bf Mononuclear Cell % 97.3 % 0-0 % [facility]: [address] [facility] Bf Polymorphonuclear Cell % 2.7 % 0 -0 % [facility]: [address] [facility] 08/02/2020 TP Body Fluid Normal Total Protein, Body Fl uid 1.2 g/dL not established g/dL [facility]: [address] [facility] Normal Source, Body Fluid Tot Protein ascit es [facility]: [address] [facility] 08/02/2020 Albumin, Body Fluid Normal Albumin, Body Fl uid 0.7 g/dL not established g/dL [facility]: [address] [facility] Normal Source, Body Fluid Albumin ascites Final [facility]: [address] [facility] 08/02/2020 Albumin 25% Albumin 25% tra nsfused product: albumin 25% count: 4 Final [facility] ical Center: [address] [facility] Urinalysis, Dipstick Leukocytes neg [facility] Medical: [address], [place] Nitrite negative [facility] M edical: [address], [place] Urobilinogen positive [facility] Medical: [address], [place] Protein 0.15 [facility] Med ical: [address], [place] Ph 5.0 [facility] Medica l: [address], [place] Blood neg [facility] Medic al: [address], [place] Specific [place] 1.025 [facility] Medical: [address], [place] Ketone 0.5 [facility] Medi hemant: [address], [place] Bilirubin neg [facility] M edical: [address], [place] Glucose neg [facility] Med ical: [address], [place] Appearance cloudy [facility] Medical: [address], [place] Color zulma [facility] Medic al: [address], [place] Past Encounters 08/14/2020 Backache; Acute Nontraumatic Kidney Injury Wai Berrios, RPA-C[facility] [address] [facility] [address] [place] [address], Ph. Social History Tobacco Smoking Status Never Smoker Vaccine List None recorded. Plan of Care Reminders Provider Appointments None recorded. Lab None recorded. Referral None recorded. Procedures None recorded. Surgeries None recorded. Imaging None recorded. Vitals 08/14/2020 04:00PM SAME DAY 20 Height Weight [...]
--- OUTSIDE RECORDS SUMMARY | 2020-11-14 21:42 | CCD ---
Author Author [facility] Organization [facility] Address Unknown Phone Unavailable Care Team Providers Care Supervisor Pleating Name Role Phone STEVENS, W KAILA PA Unavailable Unavailable STEVENS, W KAILA PA Unavailable Unavailable STEVENS, W KAILA PA Unavailable Unavailable STEVENS, W KAILA PA Unavailable Unavailable STEVENS, W KAILA PA Unavailable Unavailable STEVENS, W KAILA PA Unavailable Unavailable STEVENS, W KAILA PA Unavailable Unavailable STEVENS, W KAILA PA Unavailable Unavailable STEVENS, W KAILA PA Unavailable Unavailable STEVENS, W KAILA PA Unavailable Unavailable STEVENS, W KAILA PA Unavailable Unavailable STEVENS, W KAILA PA Unavailable Unavailable STEVENS, W KAILA PA Unavailable Unavailable STEVENS, W KAILA PA Unavailable Unavailable STEVENS, W KAILA PA Unavailable Unavailable STEVENS, W KAILA PA Unavailable Unavailable STEVENS, W KAILA PA Unavailable Unavailable STEVENS, W KAILA PA Unavailable Unavailable STEVENS, W KAILA PA Unavailable Unavailable STEVENS, W KAILA PA Unavailable Unavailable STEVENS, W KAILA PA Unavailable Unavailable STEVENS, W KAILA PA Unavailable Unavailable STEVENS, W KAILA PA Unavailable Unavailable STEVENS, W KAILA PA Unavailable Unavailable STEVENS, W KAILA PA Unavailable Unavailable STEVENS, W KAILA PA Unavailable Unavailable STEVENS, W KAILA PA Unavailable Unavailable STEVENS, W KAILA PA Unavailable Unavailable STEVENS, W KAILA PA Unavailable Unavailable STEVENS, W KAILA PA Unavailable Unavailable STEVENS, W KAILA PA Unavailable Unavailable STEVENS, W KAILA PA Unavailable Unavailable STEVENS, W KAILA PA Unavailable Unavailable STEVENS, W KAILA PA Unavailable Unavailable STEVENS, W KAILA PA Unavailable Unavailable STEVENS, W KAILA PA Unavailable Unavailable STEVENS, W KAILA PA Unavailable Unavailable STEVENS, W KAILA PA Unavailable Unavailable STEVENS, W KAILA PA Unavailable Unavailable STEVENS, W KAILA PA Unavailable Unavailable STEVENS, W KAILA PA Unavailable Unavailable STEVENS, W KAILA PA Unavailable Unavailable STEVENS, W KAILA PA Unavailable Unavailable STEVENS, W KAILA PA Unavailable Unavailable STEVENS, W KAILA PA Unavailable Unavailable STEVENS, W KAILA PA Unavailable Unavailable Scordo, M Mag PA Unavailable Unavailable Scordo, M Mag PA Unavailable Unavailable Scordo, M Mag PA Unavailable Unavailable Scordo, M Mag PA Unavailable Unavailable Scordo, M Mag PA Unavailable Unavailable Scordo, M Mag PA Unavailable Unavailable Scordo, M Mag PA Unavailable Unavailable Scordo, M Mag PA Unavailable Unavailable Scordo, M Mag PA Unavailable Unavailable Scordo, M Mag PA Unavailable Unavailable Scordo, M Mag PA Unavailable Unavailable Scordo, M Mag PA Unavailable Unavailable Scordo, M Mag PA Unavailable Unavailable Scordo, M Mag PA Unavailable Unavailable Scordo, M Mag PA Unavailable Unavailable Scordo, M Mag PA Unavailable Unavailable Scordo, M Mag PA Unavailable Unavailable Scordo, M Mag PA Unavailable Unavailable Scordo, M Mag PA Unavailable Unavailable Scordo, M Mag PA Unavailable Unavailable Scordo, M Mag PA Unavailable Unavailable Scordo, M Mag PA Unavailable Unavailable Scordo, M Mag PA Unavailable Unavailable Scordo, M Mag PA Unavailable Unavailable Scordo, M Mag PA Unavailable Unavailable Scordo, M Mag PA Unavailable Unavailable Scordo, M Mag PA Unavailable Unavailable Scordo, M Mag PA Unavailable Unavailable Scordo, M Mag PA Unavailable Unavailable Scordo, M Mag PA Unavailable Unavailable Scordo, M Mag PA Unavailable Unavailable Scordo, M Mag PA Unavailable Unavailable Scordo, M Mag PA Unavailable Unavailable Scordo, M Mag PA Unavailable Unavailable Scordo, M Mag PA Unavailable Unavailable Scordo, M Mag PA Unavailable Unavailable Scordo, M Mag PA Unavailable Unavailable Scordo, M Mag PA Unavailable Unavailable Scordo, M Mag PA Unavailable Unavailable Scordo, M Mag PA Unavailable Unavailable Scordo, M Mag PA Unavailable Unavailable Scordo, Crys Hathaway PA Unavailable Unavailable Cougler, S Kiel CATTLE DEALER Unavailable Unavailable Cougler, S Kiel CATTLE DEALER Unavailable Unavailable Cougler, S Kiel CATTLE DEALER Unavailable Unavailable Cougler, S Kiel CATTLE DEALER Unavailable Unavailable Cougler, S Kiel CATTLE DEALER Unavailable Unavailable Cougler, S Kiel CATTLE DEALER Unavailable Unavailable Cougler, S Kiel CATTLE DEALER Unavailable Unavailable Cougler, S Kiel CATTLE DEALER Unavailable Unavailable Cougler, S Kiel CATTLE DEALER Unavailable Unavailable Cougler, S Kiel CATTLE DEALER Unavailable Unavailable Cougler, S Kiel CATTLE DEALER Unavailable Unavailable Cougler, S Kiel CATTLE DEALER Unavailable Unavailable Cougler, S Kiel CATTLE DEALER Unavailable Unavailable Cougler, S Kiel CATTLE DEALER Unavailable Unavailable Cougler, S Kiel CATTLE DEALER Unavailable Unavailable Cougler, S Kiel CATTLE DEALER Unavailable Unavailable Cougler, S Kiel CATTLE DEALER Unavailable Unavailable Cougler, S Kiel CATTLE DEALER Unavailable Unavailable Cougler, S Kiel CATTLE DEALER Unavailable Unavailable Cougler, S Kiel CATTLE DEALER Unavailable Unavailable Cougler, S Kiel CATTLE DEALER Unavailable Unavailable Cougler, S Kiel CATTLE DEALER Unavailable Unavailable Cougler, S Kiel CATTLE DEALER Unavailable Unavailable Cougler, S Kiel CATTLE DEALER Unavailable Unavailable Cougler, S Kiel CATTLE DEALER Unavailable Unavailable Cougler, S Kiel CATTLE DEALER Unavailable Unavailable Cougler, S Kiel CATTLE DEALER Unavailable Unavailable Cougler, S Kiel CATTLE DEALER Unavailable Unavailable Cougler, S Kiel CATTLE DEALER Unavailable Unavailable Cougler, S Kiel CATTLE DEALER Unavailable Unavailable Cougler, S Kiel CATTLE DEALER Unavailable Unavailable Cougler, S Kiel CATTLE DEALER Unavailable Unavailable Cougler, S Kiel CATTLE DEALER Unavailable Unavailable Cougler, S Kiel CATTLE DEALER Unavailable Unavailable Cougler, S Kiel CATTLE DEALER Unavailable Unavailable Cougler, S Kiel CATTLE DEALER Unavailable Unavailable Cougler, S Kiel CATTLE DEALER Unavailable Unavailable Cougler, S Kiel CATTLE DEALER Unavailable Unavailable Cougler, S Kiel CATTLE DEALER Unavailable Unavailable SONIYA CHENG MD Unavailable Unavailable SONIYA CHENG MD Unavailable Unavailable SONIYA CHENG MD Unavailable Unavailable SONIYA CHENG MD Unavailable Unavailable SONIYA CHENG MD Unavailable Unavailable SONIYA CHENG MD Unavailable Unavailable SONIYA CHENG MD Unavailable Unavailable SONIYA CHENG MD Unavailable Unavailable SONIYA CHENG MD Unavailable Unavailable SONIYA CHENG MD Unavailable Unavailable SONIYA CHENG MD Unavailable Unavailable CHENG, SONIYA MD Unavailable Unavailable CHENG, SONIYA MD Unavailable Unavailable CHENG, SONIYA MD Unavailable Unavailable CHENG, SONIYA MD Unavailable Unavailable CHENG, SONIYA MD Unavailable Unavailable CHENG, SONIYA MD Unavailable Unavailable Pendleton-Trim, J Bruce PA Unavailable Unavailable Khaliq, Hector MD Unavailable Unavailable Khaliq, Mahpara MD Unavailable Unavailable Khaliq, Mahpara MD Unavailable Unavailable Khaliq, Mahpara MD Unavailable Unavailable Khaliq, Mahpara MD Unavailable Unavailable Khaliq, Mahpara MD Unavailable Unavailable BERRIOS, JACKIE JOE RPA-C Unavailable Unavailable BERRIOS, JACKIE JOE RPA-C Unavailable Unavailable BERRIOS, JACKIE JOE RPA-C Unavailable Unavailable BERRIOS, JACKIE JOE RPA-C Unavailable Unavailable BERRIOS, JACKIE JOE RPA-C Unavailable Unavailable BERRIOS, JACKIE JOE RPA-C Unavailable Unavailable BERRIOS, JACKIE JOE RPA-C Unavailable Unavailable BERRIOS, JACKIE JOE RPA-C Unavailable Unavailable BERRIOS, JACKIE JOE RPA-C Unavailable Unavailable BERRIOS, JACKIE JOE RPA-C Unavailable Unavailable BERRIOS, JACKIE JOE RPA-C Unavailable Unavailable BERRIOS, JACKIE JOE RPA-C Unavailable Unavailable BERRIOS, JACKIE JOE RPA-C Unavailable Unavailable BERRIOS, JACKIE JOE RPA-C Unavailable Unavailable BERRIOS, JACKIE JOE RPA-C Unavailable Unavailable BERRIOS, JACKIE JOE RPA-C Unavailable Unavailable BERRIOS, JACKIE JOE RPA-C Unavailable Unavailable BERRIOS, JACKIE JOE RPA-C Unavailable Unavailable BERRIOS, JACKIE JOE RPA-C Unavailable Unavailable BERRIOS, JACKIE JOE RPA-C Unavailable Unavailable BERRIOS, JACKIE JOE RPA-C Unavailable Unavailable BERIROS, JACKIE JOE RPA-C Unavailable Unavailable BERRIOS, JACKIE JOE RPA-C Unavailable Unavailable BERRIOS, JACKIE JOE RPA-C Unavailable Unavailable BERRIOS, JACKIE JOE RPA-C Unavailable Unavailable BERRIOS, JACKIE JOE RPA-C Unavailable Unavailable BERRIOS, JACKIE JOE RPA-C Unavailable Unavailable BERRIOS, JACKIE JOE RPA-C Unavailable Unavailable BERRIOS, JACKIE JOE RPA-C Unavailable Unavailable BERRIOS, JACKIE JOE RPA-C Unavailable Unavailable BERRIOS, JACKIE JOE RPA-C Unavailable Unavailable BERRIOS, JACKIE JOE RPA-C Unavailable Unavailable BERRIOS, JACKIE JOE RPA-C Unavailable Unavailable BERRIOS, JACKIE JOE RPA-C Unavailable Unavailable BERRIOS, JACKIE JOE RPA-C Unavailable Unavailable BERRIOS, JACKIE JOE RPA-C Unavailable Unavailable BERRIOS, JACKIE JOE RPA-C Unavailable Unavailable BERRIOS, JACKIE JOE RPA-C Unavailable Unavailable BERRIOS, JACKIE JOE RPA-C Unavailable Unavailable Soniya Cheng MD Unavailable Unavailable BERRIOS, JACKIE JOE RPA-C Unavailable Unavailable BERRIOS, JACKIE JOE RPA-C Unavailable Unavailable BERRIOS, JACKIE JOE RPA-C Unavailable Unavailable BERRIOS, JACKIE JOE RPA-C Unavailable Unavailable BERRIOS, JACKIE JOE RPA-C Unavailable Unavailable BERRIOS, JACKIE JOE RPA-C Unavailable Unavailable BERRIOS, JACKIE JOE RPA-C Unavailable Unavailable BERRIOS, JACKIE JOE RPA-C Unavailable Unavailable BERRIOS, JACKIE JOE RPA-C Unavailable Unavailable BERRIOS, JACKIE JOE RPA-C Unavailable Unavailable BERRIOS, JACKIE JOE RPA-C Unavailable Unavailable BERRIOS, JACKIE JOE RPA-C Unavailable Unavailable BERRIOS, JACKIE JOE RPA-C Unavailable Unavailable BERRIOS, JACKIE JOE RPA-C Unavailable Unavailable BERRIOS, JACKIE JOE RPA-C Unavailable Unavailable BERRIOS, JACKIE JOE RPA-C Unavailable Unavailable BERRIOS, JACKIE JOE RPA-C Unavailable Unavailable BERRIOS, JACKIE JOE RPA-C Unavailable Unavailable BERRIOS, JACKIE JOE RPA-C Unavailable Unavailable BERRIOS, JACKIE JOE RPA-C Unavailable Unavailable BERRIOS, JACKIE JOE RPA-C Unavailable Unavailable BERRIOS, JACKIE JOE RPA-C Unavailable Unavailable BERRIOS, JACKIE JOE RPA-C Unavailable Unavailable BERRIOS, JACKIE JOE RPA-C Unavailable Unavailable BERRIOS, JACKIE JOE RPA-C Unavailable Unavailable BERRIOS, JACKIE JOE RPA-C Unavailable Unavailable BERRIOS, JACKIE JOE RPA-C Unavailable Unavailable BERRIOS, JACKIE JOE RPA-C Unavailable Unavailable BERRIOS, JACKIE JOE RPA-C Unavailable Unavailable BERRIOS, JACKIE JOE RPA-C Unavailable Unavailable BERRIOS, JACKIE JOE RPA-C Unavailable Unavailable BERRIOS, JACKIE JOE RPA-C Unavailable Unavailable BERRIOS, JACKIE JOE RPA-C Unavailable Unavailable BERRIOS, JACKIE JOE RPA-C Unavailable Unavailable BERRIOS, JACKIE JOE RPA-C Unavailable Unavailable BERRIOS, JACKIE JOE RPA-C Unavailable Unavailable BERRIOS, JACKIE JOE RPA-C Unavailable Unavailable BERRIOS, JACKIE JOE RPA-C Unavailable Unavailable BERRIOS, JACKIE JOE RPA-C Unavailable Unavailable Moussallem, Cristino Esquivel MD Unavailable Unavailab le Moussallem, Cristino Esquivel MD Unavailable Unavailab le Moussallem, Cristino Esquivel MD Unavailable Unavailab le Moussallem, Cristino Esquivel MD Unavailable Unavailab le Moussallem, Cristino Esquivel MD Unavailable Unavailab le Moussallem, Cristino Esquivel MD Unavailable Unavailab le Moussallem, Cristino Esquivel MD Unavailable Unavailab le Moussallem, Cristino Esquivel MD Unavailable Unavailab le Moussallem, Cristino Esquivel MD Unavailable Unavailab le Moussallem, Cristino Esquivel MD Unavailable Unavailab le Moussallem, Cristino Esquivel MD Unavailable Unavailab le Moussallem, Cristino Esquivel MD Unavailable Unavailab le Moussallem, Cristino Esquivel MD Unavailable Unavailab le Moussallem, Cristino Esquivel MD Unavailable Unavailab le Moussallem, Cristino Esquivel MD Unavailable Unavailab le Moussallem, Cristino Esquivel MD Unavailable Unavailab le Moussallem, Cristino Esquivel MD Unavailable Unavailab le Moussallem, Cristino Esquivel MD Unavailable Unavailab le Moussallem, Cristino Esquivel MD Unavailable Unavailab le Moussallem, Cristino Esquivel MD Unavailable Unavailab le Moussallem, Cristino Esquivel MD Unavailable Unavailab le Moussallem, Cristino Esquivel MD Unavailable Unavailab le Moussallem, Cristino Esquivel MD Unavailable Unavailab le Moussallem, Cristino Esquivel MD Unavailable Unavailab le Moussallem, Cristino Esquivel MD Unavailable Unavailab le Moussallem, Cristino Esquivel MD Unavailable Unavailab le Moussallem, Cristino Esquivel MD Unavailable Unavailab le Moussallem, Cristino Esquivel MD Unavailable Unavailab le Moussallem, Cristino Esquivel MD Unavailable Unavailab le Moussallem, Cristino Esquivel MD Unavailable Unavailab le Moussallem, Cristino Esquivel MD Unavailable Unavailab Cristino Rosenthal MD Unavailable Unavailab le PENDLETON, BRUCE PA Unavailable Unavailable PENDLETON, BRUCE PA Unavailable Unavailable PENDLETON, BRUCE PA Unavailable Unavailable PENDLETON, BRUCE PA Unavailable Unavailable Yesika LECHUGA MD Unavailable Unavailable Yesika LECHUGA MD Unavailable Unavailable Yesika LECHUGA MD Unavailable Unavailable Yesika LECHUGA MD Unavailable Unavailable Yesika LECHUGA MD Unavailable Unavailable Yesika LECHUGA MD Unavailable Unavailable Yesika LECHUGA MD Unavailable Unavailable Yesika LECHUGA MD Unavailable Unavailable Yesika LECHUGA MD Unavailable Unavailable Yesika LECHUGA MD Unavailable Unavailable Yesika LECHUGA MD Unavailable Unavailable Yesika LECHUGA MD Unavailable Unavailable Yesika LECHUGA MD Unavailable Unavailable Yesika LECHUGA MD Unavailable Unavailable Yesika LECHUGA MD Unavailable Unavailable Yesika LECHUGA MD Unavailable Unavailable Yesika LECHUGA MD Unavailable Unavailable Yesika LECHUGA MD Unavailable Unavailable Yesika LECHUGA MD Unavailable Unavailable Yesika LECHUGA MD Unavailable Unavailable Yesika LECHUGA MD Unavailable Unavailable Yesika LECHUGA MD Unavailable Unavailable Yesika LECHUGA MD Unavailable Unavailable Yesika LECHUGA MD Unavailable Unavailable Yesika LECHUGA MD Unavailable Unavailable Yesika LECHUGA MD Unavailable Unavailable Yesika LECHUGA MD Unavailable Unavailable Yesika LECHUGA MD Unavailable Unavailable eYsika LECHUGA MD Unavailable Unavailable Yesika LECHUGA MD Unavailable Unavailable Yesika LECHUGA MD Unavailable Unavailable Yesika LECHUGA MD Unavailable Unavailable Yesika LECHUGA MD Unavailable Unavailable Shakila Tavarez MD Unavailable Unavailable Shakila Tavarez MD Unavailable Unavailable [facility], RFROST BERRIOS DENISSE DIAZ Unavailable Unavailable Re-disclosure Warning The records that you are about to access may contain information from federally-assisted alcohol or drug abuse programs. If such information is present, then the following federally mandated warning applies: This information has been disclosed to you from records protected by federal confidentiality rules (42 CFR part 2). The federal rules prohibit you from making any further disclosure of this information unless further disclosure is expressly permitted by the written consent of the person to whom it pertains or as otherwise permitted by 42 CFR part 2. A general authorization for the release of medical or other information is NOT sufficient for this purpose. The Federal rules restrict any use of the information to criminally investigate or prosecute any alcohol or drug abuse patient.The records that you are about to access may contain highly sensitive health information, the redisclosure of which is protected by Article 27-F of the [facility] Public Health law. If you continue you may have access to information: Regarding HIV / AIDS; Provided by facilities licensed or operated by the [facility] Office of Mental Health; or Provided by the [facility] Office for People With Developmental Disabilities. If such information is present, then the following [facility] mandated warning applies: This information has been disclosed to you from confidential records which are protected by state law. State law prohibits you from making any further disclosure of this information without the specific written consent of the person to whom it pertains, or as otherwise permitted by law. Any unauthorized further disclosure in violation of state law may result in a fine or skilled nursing sentence or both. A general authorization for the release of medical or other information is NOT sufficient authorization for further disc losure. Allergies and Adverse Reactions Type Description Substance Reaction Status Data Source(s ) Allergy to substance Moderate to Severe [facility] Moderate to Severe [facility] All[facility] to substance Moderate to Severe [facility] Allergy to substance Allergy to [facility] Allergy to substance Allergy to substance ramelteon [facility] ([facility]) Allergy to substance Allergy to substance ramelteon [facility] ([facility]) Drug allergy RAMELTEON RAMELTEON diarrhea U [facility] Allergy to substance Allergy to substance ramelteon [place] ([facility]) Drug allergy Drug allergy No Known Allergies [facility] Drug allergy Drug allergy No Known Allergies [facility] Encounters Encounter Providers Location Date Indications Data Source(s ) Mag Scordo, PA-C: [address], [place] [address], Ph. Attender: Mag SALCEDO [facility] Medical 10/30/2020 12:00:00 AM EST [place] ([facility]) Joe Berrios RPA-C: [address], [place] [address], Ph. Attender: JOE BERRIOS RPA-C [facility] Medical 10/09/2020 12:00:00 AM EST [place] ([facility]) Joe Berrios RPA-C: [address], [place] [address], Ph. Attender: JOE BERRIOS RPA-C [facility] Medical 10/09/2020 12:00:00 AM EST [place] ([facility]) Joe Berrios RPA-C: [address], [place] [address], Ph. Attender: JOE BERRIOS RPA-C [facility] Medical 09/10/2020 12:00:00 AM EST [place] ([facility]) Joe Berrios RPA-C: [address], [place] [address], Ph. Attender: JOE BERRIOS RPA-C [facility] Medical 09/10/2020 12:00:00 AM EST [place] ([facility]) Joe Berrios RPA-C: [address], [place] [address], Ph. Attender: JOE BERRIOS RPA-C [facility] Medical 09/10/2020 12:00:00 AM EST [place] ([facility]) Joe Berrios, RPA-C: [address], [place] [address], Ph. Attender: JOE BERRIOS RPA-C [facility] Medical 08/14/2020 12:00:00 AM EST [place] ([facility]) Joe Berrios RPA-C: [address], [place] [address], Ph. Attender: JOE BERRIOS RPA-C [facility] Medical 08/14/2020 12:00:00 AM EST [place] ([facility]) Joe Berrios RPA-C: [address], [place] [address], Ph. Attender: JOE BERRIOS RPA-C [facility] Medical 08/14/2020 12:00:00 AM EST [place] ([facility]) Joe Berrios RPA-C: [address], [place] [address], Ph. Attender: JOE BERRIOS RPA-C [facility] Medical 08/14/2020 12:00:00 AM EST [place] ([facility]) Outpatient Attender: JOE BERRIOS RPA-C ALL 07/19/2020 12:00:32 AM EDT [facility] Outpatient Attender: JOSLYN MORRISON ALL 02/2020 05:29:02 PM EDT [facility] Outpatient Attender: JOSLYN MORRISON ALL 06/13 08:57:04 AM EDT [facility] Outpatient Attender: JOE BERRIOS RPA-C ALL 07/03/2020 08:57:02 AM EDT [facility] Outpatient Attender: JOSLYN MORRISON ALL 06/12 09:22:01 AM EDT [facility] Outpatient Attender: JOE BERRIOS RPA-C ALL 06/21/2020 12:00:44 AM EDT [facility] Outpatient Attender: JOE BERRIOS RPA-C ALL 06/11/2020 10:38:01 AM EDT [facility] Outpatient Attender: JOSLYN BERRIOS DENISSE JOE MORRISON ALL 05/12 12:39:01 PM EDT [facility] Outpatient Attender: JOE BERRIOS RPA-C ALL 05/11/2020 12:00:10 AM EDT [facility] Outpatient Attender: JOE BERRIOS RPA-C ALL 05/10/2020 02:36:02 PM EDT [facility] Outpatient Attender: JOSLYN BERRIOS DENISSE JOE MORRISON ALL 04/11 08:31:02 AM EDT [facility] Outpatient Attender: ZION Orellana/Naeem/Kerwin harris/Reinfabián 04/17/2020 11:40:00 AM EDT [facility] ([facility], ) Outpatient Attender: JOSLYN MORRISON ALL 10/2019 04:12:01 PM EDT [facility] Outpatient Attender: JOE BERRIOS RPA-C ALL 04/11/2020 04:11:59 PM EDT [facility] Outpatient Attender: JOE BERRIOS RPA-C ALL 04/09/2020 10:16:02 AM EDT [facility] Outpatient Attender: JOSLYN BERRIOS DENISSE JOE MORRISON ALL 03/13 05:23:01 PM EDT [facility] Outpatient Attender: JOE BERRIOS RPA-C ALL 04/06/2020 05:22:59 PM EDT [facility] Outpatient Attender: JOSLYN BERRIOS DENISSE JOE MORRISON ALL 03/13 08:59:00 AM EDT [facility] Outpatient Attender: JOE BERRIOS RPA-C ALL 03/27/2020 02:02:02 PM EDT [facility] Inpatient Attender: Soniya Spangler DAttender: SONIYA CHENG MDAttender: Hector Mcgee MDAdmitter: SONIYA CHENG MDConsultant: Burce Pendleton-Trim PAConsultant: BRUCE SALCEDO CPSCAORT-MSU3 03/17/2020 09:06:00 PM E DT - 03/22/2020 03:09:00 PM EDT ALCOHOLISM, ASCITES [facility] ALCOHOLISM, ASCITES Patient discharged. Preadmit Attender: Gwyn Tavarez MD CPSCAORT-ED 03/17/2020 08:47:00 PM EDT [facility] Emergency Attender: Kiel Marcos CATTLE DEALER ED-ED 03/17 04:07:00 PM EDT - 03/17/2020 07:34:00 PM EDT SOB, FLUID IN ABD, SPIDER BITE RT FOOT [facility] SOB, FLUID IN ABD, SPIDER BITE RT FOOT Patient discharged. Preadmit Attender: Alvin Garber MD [id number] 03/17/2020 12:00:00 AM EDT F10.20 [facility] F10.20 Outpatient 01/17/2020 10:54:32 AM EDT [facility] ([facility]) OutpatientOFFICE/OUTPATIENT VISIT, NEW 01/17/2020 Attender: KAILA SALCEDO 01/17/2020 09:49:17 AM EDT [facility] ([facility]) Immunizations Vaccine Date Status Description Data Source(s) New in 2012. IIV4 08/17/2020 12:00:00 AM EST completed 08/17/20 [facility]) New in 2012. IIV4 08/17/2020 12:00:00 AM EST completed 08/17/20 [facility]) New in 2012. IIV4 08/17/2020 12:00:00 AM EST completed 08/17/20 [facility]) Medications Medication Brand Name Start Date Product Form Dose Route Admi nistrative Instructions Pharmacy Instructions Status Indications Reaction Description Data Source(s) gabapentin 300 MG Oral Capsule Gabapentin 05/30/2020 12:00:00 AM EDT ORAL active [facility], ) Ciprofloxacin 500 MG Oral Tablet Ciprofloxacin HCL 05/30/2020 12:00 :00 AM EDT ORAL active [facility] ([facility], ) Ensure Active High Protein 05/24/2020 12:00:00 AM EDT active [facility] ([facility], ) pantoprazole 40 MG Delayed Release Oral Tablet Pantoprazole Sodium 04/24/2020 12:00:00 AM EDT active M [facility] ([facility], ) zaleplon 5 MG Oral Capsule Zaleplon 04/20/2020 12:00:00 AM EDT ORAL completed [facility] ([facility] [place], ) Famotidine 40 MG Oral Tablet Famotidine 04/17/2020 12:00:00 AM EDT completed [facility] ([facility] [place], ) ramelteon 8 MG Oral Tablet Ramelteon 04/17/2020 12:00:00 AM EDT completed [facility] ([facility] [place], ) Spironolactone 100 MG Oral Tablet spironolactone 100 m g tablet spironolactone 100 mg tablet 01/17/2020 12:00:00 AM EDT 1 comp leted , Take 1 tablet orally Every day 01/17/2020 [facility] ([facility]) Furosemide 40 MG Oral Tablet [Lasix] Lasix 40 mg tablet Lasi x 40 mg tablet 01/17/2020 12:00:00 AM EDT 1 completed , Take 1 tablet orally Every day 01/17/2020 [facility] ([facility]) 100 mg 01/17/2020 12:00:00 AM EDT tablet 30 TAKE ONE TABLET BY MOUTH EVERY DAY TAKE ONE TABLET BY MOUTH EVERY DAY SOLD: 01/17/2020 [facility] 40 mg 01/17/2020 12:00:00 AM EDT tablet 30 TAKE ONE TABLET BY MOUTH EVERY DAY TAKE ONE TABLET BY MOUTH EVERY DAY SOLD: 01/17/2020 [facility] Lactulose 667 MG/ML Oral Solution lactul ose 10 gram/15 mL (15 mL) oral solution Take 15 mL twice a day by oral route. lactulose 10 gram/15 mL (15 mL) oral solution Take 15 mL twice a day by oral route. 15 mL completed lactulose 667 MG/ML Oral Solution [place] ([facility]) Cephalexin 500 MG Oral Capsule cephalexi n 500 mg capsule TAKE ONE CAPSULE BY MOUTH THREE TIMES A DAY cephalexin 500 mg capsule TAKE ONE CAPSU LE BY MOUTH THREE TIMES A DAY completed ceph alexin 500 MG Oral Capsule [place] ([facility]) torsemide 20 MG Oral Tablet torsemide 20 mg tablet torsemide 20 mg ta blet completed torsemide 20 MG Oral Tablet [place] ([facility]) venlafaxine 37.5 MG Oral Tablet venlafaxine 37.5 mg ta blet venlafaxine 37.5 mg tablet completed venlafaxine 37. 5 MG Oral Tablet [place] ([facility]) zaleplon 5 MG Oral Capsule zaleplon 5 mg capsule TAKE ONE CAPSULE BY MOUTH AT BEDTIME MAXIMUM DAILY DOSE 1 CAPSULE zaleplon 5 mg capsule TAKE ONE CAPSULE B Y MOUTH AT BEDTIME MAXIMUM DAILY DOSE 1 CAPSULE completed zaleplon 5 MG Oral Capsule [place] ([facility]) Shingrix (PF) 50 mcg/0.5 mL intramuscular suspension, kit [id number] completed 0.[address] virus glycoprotein E, recombinant 0.1 MG/ML Injection [Shingrix] [place] ([facility]) Ciprofloxacin 500 MG Oral Tablet ciprofloxacin 500 mg tablet ciprofloxacin 500 mg tablet completed ciprofloxaci n 500 MG Oral Tablet [place] ([facility]) Spironolactone 25 MG Oral Tablet spirono lactone 25 mg tablet TAKE ONE TABLET BY MOUTH EVERY DAY spironolactone 25 mg tablet TAKE ONE TABLET BY MOUTH E VERY DAY completed spironolactone 25 MG Oral Tablet [place] ([facility]) Furosemide 40 MG Oral Tablet furosemide 40 mg tablet TAKE 1.5 tablet QAM and 1.5 tablet QPM furosemide 40 mg tablet TAKE 1.5 tablet QAM and 1.5 tablet QPM completed furosemide 40 MG Oral Tablet [place] ([facility]) Spironolactone 25 MG Oral Tablet spirono lactone 25 mg tablet TAKE ONE TABLET BY MOUTH EVERY DAY spironolactone 25 mg tablet TAKE ONE TABLET BY MOUTH E VERY DAY completed spironolactone 25 MG Oral Tablet [place] ([facility]) Lactulose 667 MG/ML Oral Solution lactul ose 20 gram/30 mL oral solution TAKE 30ML BY MOUTH TWO TIMES A DAY lactulose 20 gram/30 mL oral solution TA KE 30ML BY MOUTH TWO TIMES A DAY completed lactulose 667 MG/ML Oral Solution [place] ([facility]) Cephalexin 500 MG Oral Capsule cephalexi n 500 mg capsule TAKE ONE CAPSULE BY MOUTH THREE TIMES A DAY cephalexin 500 mg capsule TAKE ONE CAPSU LE BY MOUTH THREE TIMES A DAY completed ceph alexin 500 MG Oral Capsule [place] ([facility]) Fluzone Quad 60 mcg (15 mcg x 4)/0.5 mL intramuscular susp. INJECT INTO THE LEFT ARM DIRECTED [id number] [facility] Fluzone Quad 60 mcg (15 mcg x 4)/0.5 mL intramuscular susp. [place] ([facility]) Furosemide 20 MG Oral Tablet furosemide 20 mg tablet TAKE ONE TABLET BY MOUTH EVERY DAY furosemide 20 mg tablet TAKE ONE TABLET BY MOUTH EVERY DAY completed furosemide 20 MG Oral Tablet [place] ([facility]) Lactulose 667 MG/ML Oral Solution lactul ose 20 gram/30 mL oral solution TAKE 30ML BY MOUTH TWO TIMES A DAY lactulose 20 gram/30 mL oral solution TA KE 30ML BY MOUTH TWO TIMES A DAY completed lactulose 667 MG/ML Oral Solution [place] ([facility]) Cephalexin 500 MG Oral Capsule cephalexi n 500 mg capsule TAKE ONE CAPSULE BY MOUTH THREE TIMES A DAY cephalexin 500 mg capsule TAKE ONE CAPSU LE BY MOUTH THREE TIMES A DAY completed ceph alexin 500 MG Oral Capsule [place] ([facility]) Spironolactone 25 MG Oral Tablet spirono lactone 25 mg tablet TAKE ONE TABLET BY MOUTH EVERY DAY spironolactone 25 mg tablet TAKE ONE TABLET BY MOUTH E VERY DAY completed spironolactone 25 MG Oral Tablet [place] ([facility]) zaleplon 5 MG Oral Capsule zaleplon 5 mg capsule TAKE ONE CAPSULE BY MOUTH AT BEDTIME MAXIMUM DAILY DOSE 1 CAPSULE zaleplon 5 mg capsule TAKE ONE CAPSULE B Y MOUTH AT BEDTIME MAXIMUM DAILY DOSE 1 CAPSULE completed zaleplon 5 MG Oral Capsule [place] ([facility]) Lactulose 667 MG/ML Oral Solution lactul ose 20 gram/30 mL oral solution TAKE 30ML BY MOUTH TWO TIMES A DAY lactulose 20 gram/30 mL oral solution TA KE 30ML BY MOUTH TWO TIMES A DAY completed lactulose 667 MG/ML Oral Solution [place] ([facility]) zaleplon 5 MG Oral Capsule zaleplon 5 mg capsule TAKE ONE CAPSULE BY MOUTH AT BEDTIME MAXIMUM DAILY DOSE 1 CAPSULE zaleplon 5 mg capsule TAKE ONE CAPSULE B Y MOUTH AT BEDTIME MAXIMUM DAILY DOSE 1 CAPSULE completed zaleplon 5 MG Oral Capsule [place] ([facility]) Furosemide 20 MG Oral Tablet furosemide 20 mg tablet TAKE ONE TABLET BY MOUTH EVERY DAY furosemide 20 mg tablet TAKE ONE TABLET BY MOUTH EVERY DAY completed furosemide 20 MG Oral Tablet [place] ([facility]) Furosemide 20 MG Oral Tablet furosemide 20 mg tablet TAKE ONE TABLET BY MOUTH EVERY DAY furosemide 20 mg tablet TAKE ONE TABLET BY MOUTH EVERY DAY completed furosemide 20 MG Oral Tablet [place] ([facility]) Lactulose 667 MG/ML Oral Solution lactul ose 20 gram/30 mL oral solution TAKE 30ML BY MOUTH TWO TIMES A DAY lactulose 20 gram/30 mL oral solution TA KE 30ML BY MOUTH TWO TIMES A DAY completed lactulose 667 MG/ML Oral Solution [place] ([facility]) Fluzone Quad 60 mcg (15 mcg x 4)/0.5 mL intramuscular susp. INJECT INTO THE LEFT ARM DIRECTED [id number] [facility] Fluzone Quad 60 mcg (15 mcg x 4)/0.5 mL intramuscular susp. [place] ([facility]) Spironolactone 25 MG Oral Tablet spirono lactone 25 mg tablet TAKE ONE TABLET BY MOUTH EVERY DAY spironolactone 25 mg tablet TAKE ONE TABLET BY MOUTH E VERY DAY completed spironolactone 25 MG Oral Tablet [place] ([facility]) Furosemide 20 MG Oral Tablet furosemide 20 mg tablet TAKE ONE TABLET BY MOUTH EVERY DAY furosemide 20 mg tablet TAKE ONE TABLET BY MOUTH EVERY DAY completed furosemide 20 MG Oral Tablet [place] ([facility]) Fluzone Quad 60 mcg (15 mcg x 4)/0.5 mL intramuscular susp. INJECT INTO THE LEFT ARM DIRECTED [id number] [facility] Fluzone Quad 60 mcg (15 mcg x 4)/0.5 mL intramuscular susp. [place] ([facility]) zaleplon 5 MG Oral Capsule zaleplon 5 mg capsule TAKE ONE CAPSULE BY MOUTH AT BEDTIME MAXIMUM DAILY DOSE 1 CAPSULE zaleplon 5 mg capsule TAKE ONE CAPSULE B Y MOUTH AT BEDTIME MAXIMUM DAILY DOSE 1 CAPSULE completed zaleplon 5 MG Oral Capsule [place] ([facility]) Insurance Providers Payer name Policy type / Coverage type Policy ID Covered alliance party ID Covered alliance party's relationship to bañuelos Policy Bañuelos Plan Information ROSEMARIE [id number] SP [id number] ROSEMARIE [id number] SP [id number] EMEDNY [id number] SP [id number] [place] [id number] S [id number] EMEDNY [id number] SP [id number] ROSEMARIE [id number] SP [id number] MEDICAID [id number] S [id number] SELF PAY S MEDICAID [id number] S [id number] MEDICAID [id number] SP [id number] SELF PAY ONLY NONE SP NONE ID IDENTIFICATION [id number] Other In surance [id number] Problems, Conditions, and Diagnoses Code Display Name Description Problem Type Effective Dates Data Source(s) 878942548 Major depressive disorder Major Depressive Disorder Pr oblem 10/09/2020 12:00:00 AM EST [place] ([facility]) [id number] Major depressive disorder Major Depressive Disorder Pr oblem 10/09/2020 12:00:00 AM EST [place] ([facility]) [id number] Compression fracture of lumbar spine Com pression Fracture of Lumbar Spine Problem 09/10/2020 12:00:00 AM EST [place] ([facility]) [id number] Osteopenia Osteopenia Problem 09/10/2020 12:00:00 AM ES T [place] ([facility]) [id number] Compression fracture of lumbar spine Com pression Fracture of Lumbar Spine Problem 09/10/2020 12:00:00 AM EST [place] ([facility]) 439541629 Osteopenia Osteopenia Problem 09/10/2020 12:00:00 AM ES T [place] ([facility]) 655119695 Compression fracture of lumbar spine Com pression Fracture of Lumbar Spine Problem 09/10/2020 12:00:00 AM EST [place] ([facility]) 187223045 Osteopenia Osteopenia Problem 09/10/2020 12:00:00 AM JULIA Reyes [place] ([facility]) V70.0 Encounter for general adult medical exam ination with abnormal findings Encounter for general adult medical examination with abnormal findings 06/11/2020 10:37:39 AM EDT [facility] [id number] Procedure by method Procedure by Method Problem 0 06/11/2020 12:00:00 AM EDT - 08/14/2020 12:00:00 AM [place] ([facility]) [id number] Procedure by method Procedure by Method Problem 0 06/11/2020 12:00:00 AM EDT - 08/14/2020 12:00:00 AM EST [place] ([facility]) [id number] Procedure by method Procedure by Method Problem 0 06/11/2020 12:00:00 AM EDT - 08/14/2020 12:00:00 AM EST [place] ([facility]) [id number] Procedure by method Procedure by Method Problem 0 06/11/2020 12:00:00 AM EDT - 08/14/2020 12:00:00 AM EST [place] ([facility]) V05.9 Encounter for immunization Encounter for immunization 05/10/2020 02:34:40 PM EDT [facility] [id number] Influenza vaccine needed Influenza Vaccine Needed Pro blem 05/10/2020 12:00:00 AM EDT - 10/30/2020 12:00:00 AM EST [place] ([facility]) [id number] Influenza vaccine needed Influenza Vaccine Needed Pro blem 05/10/2020 12:00:00 AM EDT [place] ([facility]) [id number] Influenza vaccine needed Influenza Vaccine Needed Pro blem 05/10/2020 12:00:00 AM EDT [place] ([facility]) [id number] Influenza vaccine needed Influenza Vaccine Needed Pro blem 05/10/2020 12:00:00 AM EDT [place] ([facility]) 748624932 Insomnia, unspecified Insomnia, unspecified 04/09/2020 10:15:55 AM EDT [facility] 981299982 Insomnia Insomnia Problem 04/09/2020 12:00:00 AM ED T [place] ([facility]) 528917236 Insomnia Insomnia Problem 04/09/2020 12:00:00 AM ED T [place] ([facility]) 012395631 Insomnia Insomnia Problem 04/09/2020 12:00:00 AM ED T [place] ([facility]) 400933861 Insomnia Insomnia Problem 04/09/2020 12:00:00 AM ED T [place] ([facility]) 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, in remission Alcohol abuse, in remissio n 03/27/2020 02:00:55 PM EDT [facility] 782.3 Edema of lower extremity Edema of lower extremity 03/27/2020 02:00:55 PM EDT [facility] K70.31 Alcoholic cirrhosis of liver with ascite s Alcoholic cirrhosis of liver with ascites 03/27/2020 02:00:55 PM EDT [facility] 305.1 Tobacco user Tobacco user 03/27/2020 02:00:55 P M EDT [facility] [id number] Ascites due to alcoholic cirrhosis Ascit es Due to Alcoholic Cirrhosis Problem 03/27/2020 12:00:00 AM EDT [place] ([facility]) 877342701 Localized edema Localized Edema Problem 03/27/2020 12:0 0:00 AM EDT [place] ([facility]) 34392362 Nicotine dependence Nicotine Dependence Problem 0 03/27/2020 12:00:00 AM EDT [place] ([facility]) 316757388 Nondependent alcohol abuse in remission Nondependent Alcohol Abuse in Remission Problem 03/27/2020 12:00:00 AM EDT [place] ([facility]) [id number] Ascites due to alcoholic cirrhosis Ascit es Due to Alcoholic Cirrhosis Problem 03/27/2020 12:00:00 AM EDT [place] ([facility]) 901068053 Localized edema Localized Edema Problem 03/27/2020 12:0 0:00 AM EDT [place] ([facility]) 14991804 Nicotine dependence Nicotine Dependence Problem 0 03/27/2020 12:00:00 AM EDT [place] ([facility]) 148080063 Nondependent alcohol abuse in remission Nondependent Alcohol Abuse in Remission Problem 03/27/2020 12:00:00 AM EDT [place] ([facility]) [id number] Ascites due to alcoholic cirrhosis Ascit es Due to Alcoholic Cirrhosis Problem 03/27/2020 12:00:00 AM EDT [place] ([facility]) 876896145 Localized edema Localized Edema Problem 03/27/2020 12:0 0:00 AM EDT [place] ([facility]) 27596871 Nicotine dependence Nicotine Dependence Problem 0 03/27/2020 12:00:00 AM EDT [place] ([facility]) 559516219 Nondependent alcohol abuse in remission Nondependent Alcohol Abuse in Remission Problem 03/27/2020 12:00:00 AM EDT [place] ([facility]) [id number] Ascites due to alcoholic cirrhosis Ascit es Due to Alcoholic Cirrhosis Problem 03/27/2020 12:00:00 AM EDT [place] ([facility]) 308589536 Localized edema Localized Edema Problem 03/27/2020 12:0 0:00 AM EDT [place] ([facility]) 52540633 Nicotine dependence Nicotine Dependence Problem 0 03/27/2020 12:00:00 AM EDT [place] ([facility]) 446368482 Nondependent alcohol abuse in remission Nondependent Alcohol Abuse in Remission Problem 03/27/2020 12:00:00 AM EDT [place] ([facility]) R10.9 Unspecified abdominal pain Unspecified abdominal pain (R10.9) 01/17/2020 [id number] 01/17/2020 09:49:17 AM EDT [facility] ([facility]) K70.11 Alcoholic hepatitis with ascites Alcohol ic hepatitis with ascites (K70.11) 01/17/2020 [id number] 01/17/2020 09:49:17 AM EDT [facility] ([facility]) Y92.[address] or not applicable UNSPECIFIED PLACE OR NOT APPLICABLE Diagnosis 03/17/2020 09:06:00 PM EDT [facility] W57.XXXA Bitten or stung by nonvenomo us insect and other nonvenomous arthropods, initial encounter BIT/STUNG BY NONVENOM INSECT & OTH NONVENOM ARTHROPODS , INIT Diagnosis 03/17/2020 09:06:00 PM EDT [facility] K72.00 Acute and subacute hepatic failure witho ut coma ACUTE AND SUBACUTE HEPATIC FAILURE WITHOUT COMA Diagnosis 03/17/2020 09:06:00 PM EDT [facility] 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 K76.6 Portal hypertension PORTAL HYPERTENSION Diagnosis 0 03/17/2020 09:06:[address] [facility] F17.210 Nicotine dependence, cigarettes, uncompl icated NICOTINE DEPENDENCE, CIGARETTES, UNCOMPLICATED Diagnosis 03/17/2020 09:06:[address] [facility] S90.861A Insect bite (nonvenomous), right foot, i nitial encounter INSECT BITE (NONVENOMOUS), RIGHT FOOT, INITIAL ENCOUNTER Diagnosis 0 09:06:[address] [facility] F31.9 Bipolar disorder, unspecified BIPOLAR DISORDER, UNSPEC IFIED Diagnosis 03/17/2020 09:06:[address] [facility] K70.31 Alcoholic cirrhosis of liver with ascite s ALCOHOLIC CIRRHOSIS OF LIVER WITH ASCITES Diagnosis 03/17/2020 09:06:00 PM [facility] Surgeries/Procedures Procedure Description Date Indications Data Source(s) Drainage of Peritoneal Cavity, Percutaneous Approach, Diagnostic DRAINAGE OF PERITONEAL CAVITY, PERCUTANEOUS APPROACH, DIAGN 03/18/2020 12:00:[address] [facility] XRAY ABDOMEN 2 VIEW (FLAT and UPRIGHT) 01/17/202001/16 12:00:00 AM EDT [facility] ([facility]) Collected Date 01/17/2020 1024 01/17/2020 01/17/2020 12:00 :00 AM EDT [facility] ([facility]) CBCDIFF 01/17/2020 01/17/2020 12:00:00 AM EDT [facility] ([facility]) COMPREHENSIVE METABOLIC PANEL 01/17/2020 12:00:00 AM E DT [facility] ([facility]) Results ID Date Data Source [id number] 10/25/2020 01:19:00 PM EST [place] ([facility]) Name Value Range Interpretation Code Description Data Julia rce(s) Supporting Document(s) magnesium level 2.1 mg/dL 1.8-2.4 normal Magnesium Level [facility] ([facility]) ID Date Data Source [id number] 10/25/2020 01:19:00 PM EST [place] ([facility]) Name Value Range Interpretation Code Description Data Julia rce(s) Supporting Document(s) phosphorus level 3.4 mg/dL 2.5-4.9 normal Phosphorus Level AT [facility] ([facility]) ID Date Data Source [id number] 10/25/2020 01:19:00 PM EST [place] ([facility]) Name Value Range Interpretation Code Description Data Julia rce(s) Supporting Document(s) glucose, fasting 95 mg/dL 70-100 normal Glucose, Fasting AT [facility] ([facility]) blood urea nitrogen 34 mg/dL 7-18 Above high normal Blood Ure a Nitrogen [place] ([facility]) creatinine for GFR 1.49 mg/dL 0.55-1.30 Above high normal Creatinine for GFR [place] ([facility]) glomerular filtration rate >51 Below low normal Deidra merular Filtration Rate [place] ([facility]) potassium serum 4.7 mEq/L 3.5-5.1 normal Potassium Serum [facility] ([facility]) sodium level 127 mEq/L 136-145 Below low normal Sodium Level [facility] ([facility]) carbon dioxide level 24 mEq/L 21-32 normal Carbon Dioxide Level [place] ([facility]) chloride level 95 mEq/L 98-107 Below low normal Chloride Level [place] ([facility]) anion gap 8 mEq/L 8-16 normal Anion Gap [place] ([facility]) calcium level 8.7 mg/dL 8.5-10.1 normal Calcium Level [facility]) ID Date Data Source [id number] 10/25/2020 11:00:00 AM EST [place] ([facility]) Name Value Range Interpretation Code Description Data Julia rce(s) Supporting Document(s) albumin 25% transfused product: albumin 25% count: 2 Albumin 25% [place] ([facility]) ID Date Data Source [id number] 10/18/2020 11:24:00 AM EST [place] ([facility]) Name Value Range Interpretation Code Description Data Julia rce(s) Supporting Document(s) magnesium level 2.0 mg/dL 1.8-2.4 normal Magnesium Level [facility] ([facility]) ID Date Data Source [id number] 10/18/2020 11:24:00 AM EST [place] ([facility]) Name Value Range Interpretation Code Description Data Julia rce(s) Supporting Document(s) phosphorus level 3.6 mg/dL 2.5-4.9 normal Phosphorus Level AT [facility] ([facility]) ID Date Data Source [id number] 10/18/2020 11:24:00 AM EST [place] ([facility]) Name Value Range Interpretation Code Description Data Julia rce(s) Supporting Document(s) glucose, fasting 101 mg/dL 70-100 Above high normal Glucose, Fas ting [place] ([facility]) blood urea nitrogen 28 mg/dL 7-18 Above high normal Blood Ure a Nitrogen [place] ([facility]) creatinine for GFR 1.68 mg/dL 0.55-1.30 Above high normal Creatinine for GFR [place] ([facility]) glomerular filtration rate >51 Below low normal Deidra merular Filtration Rate [place] ([facility]) sodium level 134 mEq/L 136-145 Below low normal Sodium Level [facility] ([facility]) potassium serum 3.9 mEq/L 3.5-5.1 normal Potassium Serum [facility] ([facility]) chloride level 103 mEq/L 98-107 normal Chloride Level [place] ([facility]) carbon dioxide level 23 mEq/L 21-32 normal Carbon Dioxide Level [place] ([facility]) anion gap 8 mEq/L 8-16 normal Anion Gap [place] ([facility]) calcium level 8.2 mg/dL 8.5-10.1 Below low normal Calcium Level AT [facility] ([facility]) ID Date Data Source [id number] 10/18/2020 08:26:00 AM EST [place] ([facility]) Name Value Range Interpretation Code Description Data Julia rce(s) Supporting Document(s) albumin 25% transfused product: albumin 25% count: 4 Albumin 25% [place] ([facility]) ID Date Data Source [id number] 10/03/2020 10:51:00 AM EST [place] ([facility]) Name Value Range Interpretation Code Description Data Julia rce(s) Supporting Document(s) magnesium level 2.1 mg/dL 1.8-2.4 normal [facility] Data Source [id number] 10/03/2020 10:51:00 AM EST [place] ([facility]) Name Value Range Interpretation Code Description Data Julia rce(s) Supporting Document(s) phosphorus level 3.9 mg/dL 2.5-4.9 normal Phosphorus Level AT [facility] ([facility]) ID Date Data Source [id number] 10/03/2020 10:51:00 AM EST [place] ([facility]) Name Value Range Interpretation Code Description Data Julia rce(s) Supporting Document(s) glucose, fasting 106 mg/dL 70-100 Above high normal Glucose, Fas ting [place] ([facility]) blood urea nitrogen 30 mg/dL 7-18 Above high normal Blood Ure a Nitrogen [place] ([facility]) creatinine for GFR 1.64 mg/dL 0.55-1.30 Above high normal Creatinine for GFR [place] ([facility]) glomerular filtration rate >51 Below low normal Deidra merular Filtration Rate [place] ([facility]) sodium level 128 mEq/L 136-145 Below low normal Sodium Level [facility] ([facility]) potassium serum 4.4 mEq/L 3.5-5.1 normal Potassium Serum [facility] ([facility]) chloride level 98 mEq/L 98-107 normal Chloride Level [place] ([facility]) carbon dioxide level 23 mEq/L 21-32 normal Carbon Dioxide Level [place] ([facility]) anion gap 7 mEq/L 8-16 Below low normal Anion Gap [place] ( [facility]) calcium level 8.6 mg/dL 8.5-10.1 normal Calcium Level [place] ( [facility]) ID Date Data Source [id number] 10/03/2020 10:51:00 AM EST [place] ([facility]) Name Value Range Interpretation Code Description Data Julia rce(s) Supporting Document(s) magnesium level 2.1 mg/dL 1.8-2.4 normal [facility]esium Level [facility]) ID Date Data Source [id number] 10/03/2020 10:51:00 AM EST [place] ([facility]) Name Value Range Interpretation Code Description Data Julia rce(s) Supporting Document(s) phosphorus level 3.9 mg/dL 2.5-4.9 normal Phosphorus Level AT [facility]) ID Date Data Source [id number] 10/03/2020 10:51:00 AM EST [place] ([facility]) Name Value Range Interpretation Code Description Data Julia rce(s) Supporting Document(s) blood urea nitrogen 30 mg/dL 7-18 Above high normal Blood Ure a Nitrogen [place] ([facility]) glucose, fasting 106 mg/dL 70-100 Above high normal Glucose, Fas ting [place] ([facility]) creatinine for GFR 1.64 mg/dL 0.55-1.30 Above high normal Creatinine for GFR [place] ([facility]) sodium level 128 mEq/L 136-145 Below low normal Sodium Level [facility] ([facility]) glomerular filtration rate >51 Below low normal Deidra merular Filtration Rate [place] ([facility]) chloride level 98 mEq/L 98-107 normal Chloride Level [place] ([facility]) potassium serum 4.4 mEq/L 3.5-5.1 normal Potassium Serum [facility] ([facility]) carbon dioxide level 23 mEq/L 21-32 normal Carbon Dioxide Level [place] ([facility]) anion gap 7 mEq/L 8-16 Below low normal Anion Gap [place] ( [facility]) calcium level 8.6 mg/dL 8.5-10.1 normal Calcium Level [place] ( [facility] [facility]) ID Date Data Source [id number] 10/03/2020 10:36:00 AM EST [place] ([facility]) Name Value Range Interpretation Code Description Data Julia rce(s) Supporting Document(s) albumin 25% transfused product: albumin 25% count: 4 Albumin 25% [place] ([facility]) ID Date Data Source [id number] 10/03/2020 10:36:00 AM EST [place] ([facility]) Name Value Range Interpretation Code Description Data Julia rce(s) Supporting Document(s) albumin 25% transfused product: albumin 25% count: 4 Albumin 25% [place] ([facility]) ID Date Data Source [id number] 09/27/2020 09:30:00 AM EST [place] ([facility]) Name Value Range Interpretation Code Description Data Julia rce(s) Supporting Document(s) albumin 25% transfused product: albumin 25% count: 4 Albumin 25% [place] ([facility]) ID Date Data Source [id number] 09/27/2020 09:30:00 AM EST [place] ([facility]) Name Value Range Interpretation Code Description Data Julia rce(s) Supporting Document(s) albumin 25% transfused product: albumin 25% count: 4 Albumin 25% [place] ([facility]) ID Date Data Source [id number] 09/20/2020 08:30:00 AM EST [place] ([facility]) Name Value Range Interpretation Code Description Data Julia rce(s) Supporting Document(s) albumin 25% transfused product: albumin 25% count: 4 Albumin 25% [place] ([facility]) ID Date Data Source [id number] 09/20/2020 08:30:00 AM EST [place] ([facility]) Name Value Range Interpretation Code Description Data Julia rce(s) Supporting Document(s) albumin 25% transfused product: albumin 25% count: 4 Albumin 25% [place] ([facility]) ID Date Data Source [id number] 09/13/2020 01:21:00 PM EST [place] ([facility]) Name Value Range Interpretation Code Description Data Julia rce(s) Supporting Document(s) albumin, body fluid 0.7 g/dL not established normal Albumin, Julien dy Fluid [place] ([facility]) source, body fluid albumin ascites normal Source, B jamil Fluid Albumin [place] ([facility]) ID Date Data Source [id number] 09/13/2020 01:21:00 PM EST [place] ([facility]) Name Value Range Interpretation Code Description Data Julia rce(s) Supporting Document(s) total protein, body fluid 1.4 g/dL not established normal Total Protein, Body Fluid [place] ([facility]) source, body fluid tot protein ascites normal Sourc e, Body Fluid Tot Protein [place] ([facility]) ID Date Data Source [id number] 09/13/2020 01:21:00 PM EST [place] ([facility]) Name Value Range Interpretation Code Description Data Julia rce(s) Supporting Document(s) source, body fluid ascites normal Source, Body Flui d [place] ([facility]) ascites fL color yellow colorless normal Ascites fL Color [place] ([facility]) appearance, body fluid hazy clear normal Appearance, B jamil Fluid [place] ([facility]) WBC body fluid 108 /uL 0-10 Above high normal WBC Body Fluid [place] ([facility]) bf mononuclear cell % 94.5 % 0-0 Above high normal Bf [place] nuclear Cell % [place] ([facility]) RBC body fluid < 2 <2 normal RBC Body Fluid [place] ([facility]) bf polymorphonuclear cell % 5.5 % 0-0 Above high no rmal Bf Polymorphonuclear Cell % [place] ([facility]) ID Date Data Source [id number] 09/13/2020 01:21:00 PM EST [place] ([facility]) Name Value Range Interpretation Code Description Data Julia rce(s) Supporting Document(s) source, body fluid albumin ascites normal Source, B jamil Fluid Albumin [place] ([facility]) albumin, body fluid 0.7 g/dL not established normal Albumin, Julien dy Fluid [place] ([facility]) ID Date Data Source [id number] 09/13/2020 01:21:00 PM EST [place] ([facility]) Name Value Range Interpretation Code Description Data Julia rce(s) Supporting Document(s) source, body fluid tot protein ascites normal Sourc e, Body Fluid Tot Protein [place] ([facility]) total protein, body fluid 1.4 g/dL not established normal Total Protein, Body Fluid [place] ([facility]) ID Date Data Source [id number] 09/13/2020 01:21:00 PM EST [place] ([facility]) Name Value Range Interpretation Code Description Data Julia rce(s) Supporting Document(s) source, body fluid ascites normal Source, Body Flui d [place] ([facility]) ascites fL color yellow colorless normal Ascites fL Color [place] ([facility]) appearance, body fluid hazy clear normal Appearance, B jamil Fluid [place] ([facility]) WBC body fluid 108 /uL 0-10 Above high normal WBC Body Fluid [place] ([facility]) RBC body fluid < 2 <2 normal RBC Body Fluid [place] ([facility]) bf mononuclear cell % 94.5 % 0-0 Above high normal Bf [place] nuclear Cell % [place] ([facility]) bf polymorphonuclear cell % 5.5 % 0-0 Above high no rmal Bf Polymorphonuclear Cell % [place] ([facility]) ID Date Data Source [id number] 09/13/2020 08:48:00 AM EST [place] ([facility]) Name Value Range Interpretation Code Description Data Jluia rce(s) Supporting Document(s) albumin 25% transfused product: albumin 25% count: 4 Albumin 25% [place] ([facility]) ID Date Data Source [id number] 09/13/2020 08:48:00 AM EST [place] ([facility]) Name Value Range Interpretation Code Description Data Julia rce(s) Supporting Document(s) albumin 25% transfused product: albumin 25% count: 4 Albumin 25% [place] ([facility]) ID Date Data Source [id number] 09/05/2020 11:04:00 AM EST [place] ([facility]) Name Value Range Interpretation Code Description Data Julia rce(s) Supporting Document(s) glucose, fasting 109 mg/dL 70-100 Above high normal Glucose, Fas ting [place] ([facility]) blood urea nitrogen 27 mg/dL 7-18 Above high normal Blood Ure a Nitrogen [place] ([facility]) creatinine for GFR 1.52 mg/dL 0.55-1.30 Above high normal Creatinine for GFR [place] ([facility]) sodium level 130 mEq/L 136-145 Below low normal Sodium Level [place] ([facility]) glomerular filtration rate >51 Below low normal Deidra merular Filtration Rate [place] ([facility]) potassium serum 3.9 mEq/L 3.5-5.1 normal Potassium Serum [place] ([facility]) chloride level 93 mEq/L 98-107 Below low normal Chloride Level [place] ([facility]) anion gap 8 mEq/L 8-16 normal Anion Gap [place] ([facility]) carbon dioxide level 29 mEq/L 21-32 normal Carbon Dioxide Level [place] ([facility]) calcium level 9.4 mg/dL 8.5-10.1 normal Calcium Level [place] ( [facility]) ID Date Data Source [id number] 09/05/2020 11:04:00 AM EST [place] ([facility]) Name Value Range Interpretation Code Description Data Julia rce(s) Supporting Document(s) AST/SGOT 50 U/L 7-37 Above high normal AST/SGOT [place] ([facility]) ALT/SGPT 26 U/L 12-78 normal ALT/SGPT [place] ([facility]) alkaline phosphatase 184 U/L 45-117 Above high normal Alkaline Phosphatase [place] ([facility]) bilirubin,total 4.3 mg/dL 0.2-1.0 Above high normal Bilirubin,tot al [place] ([facility]) bilirubin,direct 1.7 mg/dL 0.0-0.2 Above high normal Bilirubin,di rect [place] ([facility]) total protein 6.8 gm/dL 6.4-8.2 normal Total Protein [place] ( [facility]) albumin 3.5 gm/dL 3.2-5.2 normal Albumin [place] ([facility]) albumin/globulin ratio 1.2-2.2 Below low normal Albumin /globulin Ratio [place] ([facility]) ID Date Data Source [id number] 09/05/2020 11:04:00 AM EST [place] ([facility]) Name Value Range Interpretation Code Description Data Julia rce(s) Supporting Document(s) sodium,random urine 12 mEq/L normal Sodium,random Ur ine [place] ([facility]) ID Date Data Source [id number] 09/05/2020 11:04:00 AM EST [place] ([facility]) Name Value Range Interpretation Code Description Data Julia rce(s) Supporting Document(s) creatinine,random urine 142.0 mg/dL normal Creatinine, random Urine [place] ([facility]) ID Date Data Source [id number] 09/05/2020 11:04:00 AM EST [place] ([facility]) Name Value Range Interpretation Code Description Data Julia rce(s) Supporting Document(s) prothrombin time 20.0 seconds 12.5-14.3 Above high normal Prothrombi n Time [place] ([facility]) INR normal Inr [place] ([facility]) partial thromboplastin time 40.3 seconds 24.2-38.5 Above high no rmal Partial Thromboplastin Time [place] ([facility]) ID Date Data Source [id number] 09/05/2020 11:04:00 AM EST [place] ([facility]) Name Value Range Interpretation Code Description Data Julia rce(s) Supporting Document(s) white blood count 7.3 10 4.0-10.0 normal White Blood Count [place] ([facility]) red blood count 3.39 10 4.00-5.40 Below low normal Red Blood Coun t [place] ([facility]) hemoglobin 10.8 g/dL 12.0-15.5 Below low normal Hemoglobin [place] ( [facility]) mean corpuscular volume 90.6 fL 80.0-96.0 normal Mean Corpusc ular Volume [place] ([facility]) hematocrit 30.7 % 36.0-47.0 Below low normal Hematocrit [place] ( [facility]) mean corpuscular hemoglobin 31.9 pg 27.0-33.0 normal Mean Corpuscular Hemoglobin [place] ([facility]) mean corpuscular HGB conc 35.2 g/dL 32.0-36.5 normal Mean Corpu scular HGB Conc [place] ([facility]) red cell distribution width 18.1 % 11.5-14.5 Above high no rmal Red Cell Distribution Width [place] ([facility]) platelet count, automated 141 10 150-450 Below low denice l Platelet Count, Automated [place] ([facility]) neutrophils % 70.7 % 36.0-66.0 Above high normal Neutrophils % [place] ([facility]) lymph % 12.1 % 24.0-44.0 Below low normal Lymph % [place] ( [facility]) mono % 14.9 % 0.0-5.0 Above high normal [place] % [place] ([facility]) baso % 0.6 % 0.0-1.0 normal Baso % [place] ([facility]) eos % 1.1 % 0.0-3.0 normal Eos % [place] ([facility]) immature granulocyte % 0.6 % 0-3.0 normal Immature Gran ulocyte % [place] ([facility]) nucleated red blood cell % 0.0 % 0-0 normal Nucleated Red Blood Cell % [place] ([facility]) lymph # 0.9 10 1.5-5.0 Below low normal Lymph # [place] ( [facility]) neutrophils # 5.1 10 1.5-8.5 normal Neutrophils # [place] ( [facility]) mono # 1.1 10 0.0-0.8 Above high normal [place] # [place] ([facility]) baso # 0.0 10 0.0-0.2 normal Baso # [place] ([facility]) eos # 0.1 10 0.0-0.5 normal Eos # [place] ([facility]) ID Date Data Source [id number] 09/05/2020 11:04:00 AM EST [place] ([facility]) Name Value Range Interpretation Code Description Data Julia rce(s) Supporting Document(s) glucose, fasting 109 mg/dL 70-100 Above high normal Glucose, Fas ting [place] ([facility]) creatinine for GFR 1.52 mg/dL 0.55-1.30 Above high normal Creatinine for GFR [place] ([facility]) blood urea nitrogen 27 mg/dL 7-18 Above high normal Blood Ure a Nitrogen [place] ([facility]) sodium level 130 mEq/L 136-145 Below low normal Sodium Level [place] ([facility]) glomerular filtration rate >51 Below low normal Deidra merular Filtration Rate [place] ([facility]) potassium serum 3.9 mEq/L 3.5-5.1 normal Potassium Serum [place] ([facility]) chloride level 93 mEq/L 98-107 Below low normal Chloride Level [place] ([facility]) carbon dioxide level 29 mEq/L 21-32 normal Carbon Dioxide Level [place] ([facility]) anion gap 8 mEq/L 8-16 normal Anion Gap [place] ([facility]) calcium level 9.4 mg/dL 8.5-10.1 normal Calcium Level [place] ( [facility]) ID Date Data Source [id number] 09/05/2020 11:04:00 AM EST [place] ([facility]) Name Value Range Interpretation Code Description Data Julia rce(s) Supporting Document(s) ALT/SGPT 26 U/L 12-78 normal ALT/SGPT [place] ([facility]) AST/SGOT 50 U/L 7-37 Above high normal AST/SGOT [place] ([facility]) bilirubin,total 4.3 mg/dL 0.2-1.0 Above high normal Bilirubin,tot al [place] ([facility]) alkaline phosphatase 184 U/L 45-117 Above high normal Alkaline Phosphatase [place] ([facility]) bilirubin,direct 1.7 mg/dL 0.0-0.2 Above high normal Bilirubin,di rect [place] ([facility]) total protein 6.8 gm/dL 6.4-8.2 normal Total Protein [place] ( [facility]) albumin/globulin ratio 1.2-2.2 Below low normal Albumin /globulin Ratio [place] ([facility]) albumin 3.5 gm/dL 3.2-5.2 normal Albumin [place] ([facility]) ID Date Data Source [id number] 09/05/2020 11:04:00 AM EST [place] ([facility]) Name Value Range Interpretation Code Description Data Julia rce(s) Supporting Document(s) sodium,random urine 12 mEq/L normal Sodium,random Ur ine [place] ([facility]) ID Date Data Source [id number] 09/05/2020 11:04:00 AM EST [place] ([facility]) Name Value Range Interpretation Code Description Data Julia rce(s) Supporting Document(s) creatinine,random urine 142.0 mg/dL normal Creatinine, random Urine [place] ([facility]) ID Date Data Source [id number] 09/05/2020 11:04:00 AM EST [place] ([facility]) Name Value Range Interpretation Code Description Data Julia rce(s) Supporting Document(s) prothrombin time 20.0 seconds 12.5-14.3 Above high normal Prothrombi n Time [place] ([facility]) INR normal Inr [place] ([facility]) partial thromboplastin time 40.3 seconds 24.2-38.5 Above high no rmal Partial Thromboplastin Time [place] ([facility]) ID Date Data Source [id number] 09/05/2020 11:04:00 AM EST [place] ([facility]) Name Value Range Interpretation Code Description Data Julia rce(s) Supporting Document(s) white blood count 7.3 10 4.0-10.0 normal White Blood Count [place] ([facility]) red blood count 3.39 10 4.00-5.40 Below low normal Red Blood Coun t [place] ([facility]) hematocrit 30.7 % 36.0-47.0 Below low normal Hematocrit [place] ( [facility]) hemoglobin 10.8 g/dL 12.0-15.5 Below low normal Hemoglobin [place] ( [facility]) mean corpuscular hemoglobin 31.9 pg 27.0-33.0 normal Mean Corpuscular Hemoglobin [place] ([facility]) mean corpuscular volume 90.6 fL 80.0-96.0 normal Mean Corpusc ular Volume [place] ([facility]) red cell distribution width 18.1 % 11.5-14.5 Above high no rmal Red Cell Distribution Width [place] ([facility]) mean corpuscular HGB conc 35.2 g/dL 32.0-36.5 normal Mean Corpu scular HGB Conc [place] ([facility]) platelet count, automated 141 10 150-450 Below low denice l Platelet Count, Automated [place] ([facility]) neutrophils % 70.7 % 36.0-66.0 Above high normal Neutrophils % [place] ([facility]) lymph % 12.1 % 24.0-44.0 Below low normal Lymph % [place] ( [facility]) mono % 14.9 % 0.0-5.0 Above high normal [place] % [place] ([facility]) baso % 0.6 % 0.0-1.0 normal Baso % [place] ([facility]) eos % 1.1 % 0.0-3.0 normal Eos % [place] ([facility]) immature granulocyte % 0.6 % 0-3.0 normal Immature Gran ulocyte % [place] ([facility]) neutrophils # 5.1 10 1.5-8.5 normal Neutrophils # [place] ( [facility]) nucleated red blood cell % 0.0 % 0-0 normal Nucleated Red Blood Cell % [place] ([facility]) lymph # 0.9 10 1.5-5.0 Below low normal Lymph # [place] ( [facility]) mono # 1.1 10 0.0-0.8 Above high normal [place] # [place] ([facility]) baso # 0.0 10 0.0-0.2 normal Baso # [place] ([facility]) eos # 0.1 10 0.0-0.5 normal Eos # [place] ([facility]) ID Date Data Source [id number] 09/05/2020 11:04:00 AM EST [place] ([facility]) Name Value Range Interpretation Code Description Data Julia rce(s) Supporting Document(s) blood urea nitrogen 27 mg/dL 7-18 Above high normal Blood Ure a Nitrogen [place] ([facility]) glucose, fasting 109 mg/dL 70-100 Above high normal Glucose, Fas ting [place] ([facility]) glomerular filtration rate >51 Below low normal [place] merular Filtration Rate [place] ([facility]) creatinine for GFR 1.52 mg/dL 0.55-1.30 Above high normal Creatinine for GFR [place] ([facility]) sodium level 130 mEq/L 136-145 Below low normal Sodium Level [place] ([facility]) potassium serum 3.9 mEq/L 3.5-5.1 normal Potassium Serum [place] ([facility]) chloride level 93 mEq/L 98-107 Below low normal Chloride Level [place] ([facility]) carbon dioxide level 29 mEq/L 21-32 normal Carbon Dioxide Level [place] ([facility]) anion gap 8 mEq/L 8-16 normal Anion Gap [place] ([facility]) calcium level 9.4 mg/dL 8.5-10.1 normal Calcium Level [place] ( [facility]) ID Date Data Source [id number] 09/05/2020 11:04:00 AM EST [place] ([facility]) Name Value Range Interpretation Code Description Data Julia rce(s) Supporting Document(s) AST/SGOT 50 U/L 7-37 Above high normal AST/SGOT [place] ([facility]) ALT/SGPT 26 U/L 12-78 normal ALT/SGPT [place] ([facility]) bilirubin,total 4.3 mg/dL 0.2-1.0 Above high normal Bilirubin,tot al [place] ([facility]) alkaline phosphatase 184 U/L 45-117 Above high normal Alkaline Phosphatase [place] ([facility]) bilirubin,direct 1.7 mg/dL 0.0-0.2 Above high normal Bilirubin,di rect [place] ([facility]) total protein 6.8 gm/dL 6.4-8.2 normal Total Protein [place] ( [facility]) albumin 3.5 gm/dL 3.2-5.2 normal Albumin [place] ([facility]) albumin/globulin ratio 1.2-2.2 Below low normal Albumin /globulin Ratio [place] ([facility]) ID Date Data Source [id number] 09/05/2020 11:04:00 AM EST [place] ([facility]) Name Value Range Interpretation Code Description Data Ujlia rce(s) Supporting Document(s) sodium,random urine 12 mEq/L normal Sodium,random Ur ine [place] ([facility]) ID Date Data Source [id number] 09/05/2020 11:04:00 AM EST [place] ([facility]) Name Value Range Interpretation Code Description Data Julia rce(s) Supporting Document(s) creatinine,random urine 142.0 mg/dL normal Creatinine, random Urine [place] ([facility]) ID Date Data Source [id number] 09/05/2020 11:04:00 AM EST [place] ([facility]) Name Value Range Interpretation Code Description Data Julia rce(s) Supporting Document(s) prothrombin time 20.0 seconds 12.5-14.3 Above high normal Prothrombi n Time [place] ([facility]) INR normal Inr [place] ([facility]) partial thromboplastin time 40.3 seconds 24.2-38.5 Above high no rmal Partial Thromboplastin Time [place] ([facility]) ID Date Data Source [id number] 09/05/2020 11:04:00 AM EST [place] ([facility]) Name Value Range Interpretation Code Description Data Julia rce(s) Supporting Document(s) white blood count 7.3 10 4.0-10.0 normal White Blood Count [place] ([facility]) red blood count 3.39 10 4.00-5.40 Below low normal Red Blood Coun t [place] ([facility]) hemoglobin 10.8 g/dL 12.0-15.5 Below low normal Hemoglobin [place] ( [facility]) mean corpuscular volume 90.6 fL 80.0-96.0 normal Mean Corpusc ular Volume [place] ([facility]) hematocrit 30.7 % 36.0-47.0 Below low normal Hematocrit [place] ( [facility]) mean corpuscular hemoglobin 31.9 pg 27.0-33.0 normal Mean Corpuscular Hemoglobin [place] ([facility]) mean corpuscular HGB conc 35.2 g/dL 32.0-36.5 normal Mean Corpu scular HGB Conc [place] ([facility]) red cell distribution width 18.1 % 11.5-14.5 Above high no rmal Red Cell Distribution Width [place] ([facility]) platelet count, automated 141 10 150-450 Below low denice l Platelet Count, Automated [place] ([facility]) neutrophils % 70.7 % 36.0-66.0 Above high normal Neutrophils % [facility] [place] ([facility]) lymph % 12.1 % 24.0-44.0 Below low normal Lymph % [place] ( [facility]) mono % 14.9 % 0.0-5.0 Above high normal [place] % [place] ([facility]) eos % 1.1 % 0.0-3.0 normal Eos % [place] ([facility]) baso % 0.6 % 0.0-1.0 normal Baso % [place] ([facility]) immature granulocyte % 0.6 % 0-3.0 normal Immature Gran ulocyte % [place] ([facility]) nucleated red blood cell % 0.0 % 0-0 normal Nucleated Red Blood Cell % [place] ([facility]) neutrophils # 5.1 10 1.5-8.5 normal Neutrophils # [place] ( [facility]) lymph # 0.9 10 1.5-5.0 Below low normal Lymph # [place] ( [facility]) mono # 1.1 10 0.0-0.8 Above high normal [place] # [place] ([facility]) eos # 0.1 10 0.0-0.5 normal Eos # [place] ([facility]) baso # 0.0 10 0.0-0.2 normal Baso # [place] ([facility]) ID Date Data Source [id number] 09/05/2020 08:12:00 AM EST [place] ([facility]) Name Value Range Interpretation Code Description Data Julia rce(s) Supporting Document(s) albumin 25% transfused product: albumin 25% count: 4 Albumin 25% [place] ([facility]) ID Date Data Source [id number] 09/05/2020 08:12:00 AM EST [place] ([facility]) Name Value Range Interpretation Code Description Data Julia rce(s) Supporting Document(s) albumin 25% transfused product: albumin 25% count: 4 Albumin 25% [place] ([facility]) ID Date Data Source [id number] 09/05/2020 08:12:00 AM EST [place] ([facility]) Name Value Range Interpretation Code Description Data Julia rce(s) Supporting Document(s) albumin 25% transfused product: albumin 25% count: 4 Albumin 25% [place] ([facility]) ID Date Data Source [id number] 08/30/2020 12:20:00 PM EST [place] ([facility]) Name Value Range Interpretation Code Description Data Julia rce(s) Supporting Document(s) albumin, body fluid 0.8 g/dL not established normal Albumin, Julien dy Fluid [place] ([facility]) source, body fluid albumin ascites normal Source, B jamil Fluid Albumin [place] ([facility]) ID Date Data Source [id number] 08/30/2020 12:20:00 PM EST [place] ([facility]) Name Value Range Interpretation Code Description Data Julia rce(s) Supporting Document(s) total protein, body fluid 1.4 g/dL not established normal Total Protein, Body Fluid [place] ([facility]) source, body fluid tot protein ascites normal Sourc e, Body Fluid Tot Protein [place] ([facility]) ID Date Data Source [id number] 08/30/2020 12:20:00 PM EST [place] ([facility]) Name Value Range Interpretation Code Description Data Julia rce(s) Supporting Document(s) source, body fluid ascites normal Source, Body Flui d [place] ([facility]) ascites fL color yellow colorless normal Ascites fL Color [place] ([facility]) appearance, body fluid hazy clear normal Appearance, B jamil Fluid [place] ([facility]) WBC body fluid 98 /uL 0-10 Above high normal WBC Body Fluid [place] ([facility]) RBC body fluid < 2 <2 normal RBC Body Fluid [place] ([facility]) bf mononuclear cell % 96.9 % 0-0 Above high normal Bf [place] nuclear Cell % [place] ([facility]) bf polymorphonuclear cell % 3.1 % 0-0 Above high no rmal Bf Polymorphonuclear Cell % [place] ([facility]) ID Date Data Source [id number] 08/30/2020 12:20:00 PM EST [place] ([facility]) Name Value Range Interpretation Code Description Data Julia rce(s) Supporting Document(s) source, body fluid albumin ascites normal Source, B jamil Fluid Albumin [place] ([facility]) albumin, body fluid 0.8 g/dL not established normal Albumin, Julien dy Fluid [place] ([facility]) ID Date Data Source [id number] 08/30/2020 12:20:00 PM EST [place] ([facility]) Name Value Range Interpretation Code Description Data Julia rce(s) Supporting Document(s) total protein, body fluid 1.4 g/dL not established normal Total Protein, Body Fluid [place] ([facility]) source, body fluid tot protein ascites normal Sourc e, Body Fluid Tot Protein [place] ([facility]) ID Date Data Source [id number] 08/30/2020 12:20:00 PM EST [place] ([facility]) Name Value Range Interpretation Code Description Data Julia rce(s) Supporting Document(s) source, body fluid ascites normal Source, Body Flui d [place] ([facility]) ascites fL color yellow colorless normal Ascites fL Color [place] ([facility]) WBC body fluid 98 /uL 0-10 Above high normal WBC Body Fluid [place] ([facility]) appearance, body fluid hazy clear normal Appearance, B jamil Fluid [place] ([facility]) bf mononuclear cell % 96.9 % 0-0 Above high normal Bf [place] nuclear Cell % [place] ([facility]) RBC body fluid < 2 <2 normal RBC Body Fluid [place] ([facility]) bf polymorphonuclear cell % 3.1 % 0-0 Above high no rmal Bf Polymorphonuclear Cell % [place] ([facility]) ID Date Data Source [id number] 08/30/2020 12:20:00 PM EST [place] ([facility]) Name Value Range Interpretation Code Description Data Julia rce(s) Supporting Document(s) albumin, body fluid 0.8 g/dL not established normal Albumin, Julien dy Fluid [place] ([facility]) source, body fluid albumin ascites normal Source, B jamil Fluid Albumin [place] ([facility]) ID Date Data Source [id number] 08/30/2020 12:20:00 PM EST [place] ([facility]) Name Value Range Interpretation Code Description Data Julia rce(s) Supporting Document(s) total protein, body fluid 1.4 g/dL not established normal Total Protein, Body Fluid [place] ([facility]) source, body fluid tot protein ascites normal Sourc e, Body Fluid Tot Protein [place] ([facility]) ID Date Data Source [id number] 08/30/2020 12:20:00 PM EST [place] ([facility]) Name Value Range Interpretation Code Description Data Julia rce(s) Supporting Document(s) source, body fluid ascites normal Source, Body Flui d [place] ([facility]) ascites fL color yellow colorless normal Ascites fL Color [place] ([facility]) WBC body fluid 98 /uL 0-10 Above high normal WBC Body Fluid [place] ([facility]) appearance, body fluid hazy clear normal Appearance, B jamil Fluid [place] ([facility]) RBC body fluid < 2 <2 normal RBC Body Fluid [place] ([facility]) bf mononuclear cell % 96.9 % 0-0 Above high normal Bf [place] nuclear Cell % [place] ([facility]) bf polymorphonuclear cell % 3.1 % 0-0 Above high no rmal Bf Polymorphonuclear Cell % [place] ([facility]) ID Date Data Source [id number] 08/30/2020 09:07:00 AM EST [place] ([facility]) Name Value Range Interpretation Code Description Data Julia rce(s) Supporting Document(s) albumin 25% transfused product: albumin 25% count: 4 Albumin 25% [place] ([facility]) ID Date Data Source [id number] 08/30/2020 09:07:00 AM EST [place] ([facility]) Name Value Range Interpretation Code Description Data Julia rce(s) Supporting Document(s) albumin 25% transfused product: albumin 25% count: 4 Albumin 25% [place] ([facility]) ID Date Data Source [id number] 08/30/2020 09:07:00 AM EST [place] ([facility]) Name Value Range Interpretation Code Description Data Julia rce(s) Supporting Document(s) albumin 25% transfused product: albumin 25% count: 4 Albumin 25% [place] ([facility]) ID Date Data Source [id number] 08/23/2020 01:53:00 PM EST [place] ([facility]) Name Value Range Interpretation Code Description Data Julia rce(s) Supporting Document(s) albumin, body fluid 0.9 g/dL not established normal Albumin, Julien dy Fluid [place] ([facility]) source, body fluid albumin ascites normal Source, B jamil Fluid Albumin [place] ([facility]) ID Date Data Source [id number] 08/23/2020 01:53:00 PM EST [place] ([facility]) Name Value Range Interpretation Code Description Data Julia rce(s) Supporting Document(s) total protein, body fluid 1.4 g/dL not established normal Total Protein, Body Fluid [place] ([facility]) source, body fluid tot protein ascites normal Sourc e, Body Fluid Tot Protein [place] ([facility]) ID Date Data Source [id number] 08/23/2020 01:53:00 PM EST [place] ([facility]) Name Value Range Interpretation Code Description Data Julia rce(s) Supporting Document(s) source, body fluid ascites normal Source, Body Flui d [place] ([facility]) ascites fL color yellow colorless normal Ascites fL Color [place] ([facility]) WBC body fluid 160 /uL 0-10 Above high normal WBC Body Fluid [place] ([facility]) appearance, body fluid cloudy clear normal Appearance, B jamil Fluid [place] ([facility]) RBC body fluid 2 10 <2 normal RBC Body Fluid [place] ([facility]) bf mononuclear cell % 96.3 % 0-0 Above high normal Bf [place] nuclear Cell % [place] ([facility]) bf polymorphonuclear cell % 3.7 % 0-0 Above high no rmal Bf Polymorphonuclear Cell % [place] ([facility]) ID Date Data Source [id number] 08/23/2020 01:53:00 PM EST [place] ([facility]) Name Value Range Interpretation Code Description Data Julia rce(s) Supporting Document(s) albumin, body fluid 0.9 g/dL not established normal Albumin, Julien dy Fluid [place] ([facility]) source, body fluid albumin ascites normal Source, B jamil Fluid Albumin [place] ([facility]) ID Date Data Source [id number] 08/23/2020 01:53:00 PM EST [place] ([facility]) Name Value Range Interpretation Code Description Data Julia rce(s) Supporting Document(s) total protein, body fluid 1.4 g/dL not established normal Total Protein, Body Fluid [place] ([facility]) source, body fluid tot protein ascites normal Sourc e, Body Fluid Tot Protein [place] ([facility]) ID Date Data Source [id number] 08/23/2020 01:53:00 PM EST [place] ([facility]) Name Value Range Interpretation Code Description Data Julia rce(s) Supporting Document(s) source, body fluid ascites normal Source, Body Flui d [place] ([facility]) ascites fL color yellow colorless normal Ascites fL Color [place] ([facility]) appearance, body fluid cloudy clear normal Appearance, B jamil Fluid [place] ([facility]) WBC body fluid 160 /uL 0-10 Above high normal WBC Body Fluid [place] ([facility]) RBC body fluid 2 10 <2 normal RBC Body Fluid [place] ([facility]) bf polymorphonuclear cell % 3.7 % 0-0 Above high no rmal Bf Polymorphonuclear Cell % [place] ([facility]) bf mononuclear cell % 96.3 % 0-0 Above high normal Bf [place] nuclear Cell % [place] ([facility]) ID Date Data Source [id number] 08/23/2020 01:53:00 PM EST [place] ([facility]) Name Value Range Interpretation Code Description Data Julia rce(s) Supporting Document(s) source, body fluid albumin ascites normal Source, B jamil Fluid Albumin [place] ([facility]) albumin, body fluid 0.9 g/dL not established normal Albumin, Julien dy Fluid [place] ([facility]) ID Date Data Source [id number] 08/23/2020 01:53:00 PM EST [place] ([facility]) Name Value Range Interpretation Code Description Data Julia rce(s) Supporting Document(s) total protein, body fluid 1.4 g/dL not established normal Total Protein, Body Fluid [place] ([facility]) source, body fluid tot protein ascites normal Sourc e, Body Fluid Tot Protein [place] ([facility]) ID Date Data Source [id number] 08/23/2020 01:53:00 PM EST [place] ([facility]) Name Value Range Interpretation Code Description Data Julia rce(s) Supporting Document(s) source, body fluid ascites normal Source, Body Flui d [place] ([facility]) ascites fL color yellow colorless normal Ascites fL Color [place] ([facility]) WBC body fluid 160 /uL 0-10 Above high normal WBC Body Fluid [place] ([facility]) appearance, body fluid cloudy clear normal Appearance, B jamil Fluid [place] ([facility]) RBC body fluid 2 10 <2 normal RBC Body Fluid [place] ([facility]) bf mononuclear cell % 96.3 % 0-0 Above high normal Bf [place] nuclear Cell % [place] ([facility]) bf polymorphonuclear cell % 3.7 % 0-0 Above high no rmal Bf Polymorphonuclear Cell % [place] ([facility]) ID Date Data Source [id number] 08/23/2020 01:53:00 PM EST [place] ([facility]) Name Value Range Interpretation Code Description Data Julia rce(s) Supporting Document(s) albumin, body fluid 0.9 g/dL not established normal Albumin, Julien dy Fluid [place] ([facility]) source, body fluid albumin ascites normal Source, B jamil Fluid Albumin [place] ([facility]) ID Date Data Source [id number] 08/23/2020 01:53:00 PM EST [place] ([facility]) Name Value Range Interpretation Code Description Data Julia rce(s) Supporting Document(s) total protein, body fluid 1.4 g/dL not established normal Total Protein, Body Fluid [place] ([facility]) source, body fluid tot protein ascites normal Sourc e, Body Fluid Tot Protein [place] ([facility]) ID Date Data Source [id number] 08/23/2020 01:53:00 PM EST [place] ([facility]) Name Value Range Interpretation Code Description Data Julia rce(s) Supporting Document(s) source, body fluid ascites normal Source, Body Flui d [place] ([facility]) ascites fL color yellow colorless normal Ascites fL Color [place] ([facility]) appearance, body fluid cloudy clear normal Appearance, B jamil Fluid [place] ([facility]) WBC body fluid 160 /uL 0-10 Above high normal WBC Body Fluid [place] ([facility]) RBC body fluid 2 10 <2 normal RBC Body Fluid [place] ([facility]) bf mononuclear cell % 96.3 % 0-0 Above high normal Bf [place] nuclear Cell % [place] ([facility]) bf polymorphonuclear cell % 3.7 % 0-0 Above high no rmal Bf Polymorphonuclear Cell % [place] ([facility]) ID Date Data Source [id number] 08/23/2020 11:43:00 AM EST [place] ([facility]) Name Value Range Interpretation Code Description Data Julia rce(s) Supporting Document(s) albumin 25% transfused product: albumin 25% count: 4 Albumin 25% [place] ([facility]) ID Date Data Source [id number] 08/23/2020 11:43:00 AM EST [place] ([facility]) Name Value Range Interpretation Code Description Data Julia rce(s) Supporting Document(s) albumin 25% transfused product: albumin 25% count: 4 Albumin 25% [place] ([facility]) ID Date Data Source [id number] 08/23/2020 11:43:00 AM EST [place] ([facility]) Name Value Range Interpretation Code Description Data Julia rce(s) Supporting Document(s) albumin 25% transfused product: albumin 25% count: 4 Albumin 25% [place] ([facility]) ID Date Data Source [id number] 08/23/2020 11:43:00 AM EST [place] ([facility]) Name Value Range Interpretation Code Description Data Julia rce(s) Supporting Document(s) albumin 25% transfused product: albumin 25% count: 4 Albumin 25% [place] ([facility]) ID Date Data Source [id number] 08/16/2020 11:48:00 AM EST [place] ([facility]) Name Value Range Interpretation Code Description Data Julia rce(s) Supporting Document(s) Ab screen gel manual negative normal Ab Screen Gel M anual [place] ([facility]) ID Date Data Source [id number] 08/16/2020 11:48:00 AM EST [place] ([facility]) Name Value Range Interpretation Code Description Data Julia rce(s) Supporting Document(s) blood type A positive normal Blood Type [place] ([facility]) ID Date Data Source [id number] 08/16/2020 11:48:00 AM EST [place] ([facility]) Name Value Range Interpretation Code Description Data Julia rce(s) Supporting Document(s) glucose, fasting 110 mg/dL 70-100 Above high normal Glucose, Fas ting [place] ([facility]) blood urea nitrogen 29 mg/dL 7-18 Above high normal Blood Ure a Nitrogen [place] ([facility]) creatinine for GFR 1.03 mg/dL 0.55-1.30 normal Creatinine for GF R [place] ([facility]) glomerular filtration rate >51 normal [place] r Filtration Rate [place] ([facility]) potassium serum 5.0 mEq/L 3.5-5.1 normal Potassium Serum [place] ([facility]) sodium level 128 mEq/L 136-145 Below low normal Sodium Level [place] ([facility]) chloride level 97 mEq/L 98-107 Below low normal Chloride Level [place] ([facility]) carbon dioxide level 25 mEq/L 21-32 normal Carbon Dioxide Level [place] ([facility]) calcium level 9.5 mg/dL 8.5-10.1 normal Calcium Level [place] ( [facility]) anion gap 6 mEq/L 8-16 Below low normal Anion Gap [place] ( [facility]) ID Date Data Source [id number] 08/16/2020 11:48:00 AM EST [facility]) Name Value Range Interpretation Code Description Data Julia rce(s) Supporting Document(s) prothrombin time 19.4 seconds 12.5-14.3 Above high normal Prothrombi n Time [place] ([facility]) partial thromboplastin time 39.9 seconds 24.2-38.5 Above high no rmal Partial Thromboplastin Time [place] ([facility]) INR normal Inr [place] ([facility]) ID Date Data Source [id number] 08/16/2020 11:48:00 AM EST [place] ([facility]) Name Value Range Interpretation Code Description Data Julia rce(s) Supporting Document(s) white blood count 6.8 10 4.0-10.0 normal White Blood Count [place] ([facility]) red blood count 3.49 10 4.00-5.40 Below low normal Red Blood Coun t [place] ([facility]) hematocrit 32.5 % 36.0-47.0 Below low normal Hematocrit [place] ( [facility]) hemoglobin 11.3 g/dL 12.0-15.5 Below low normal Hemoglobin [place] ( [facility]) mean corpuscular hemoglobin 32.4 pg 27.0-33.0 normal Mean Corpuscular Hemoglobin [place] ([facility]) mean corpuscular volume 93.1 fL 80.0-96.0 normal Mean Corpusc ular Volume [place] ([facility]) red cell distribution width 18.4 % 11.5-14.5 Above high no rmal Red Cell Distribution Width [place] ([facility]) mean corpuscular HGB conc 34.8 g/dL 32.0-36.5 normal Mean Corpu scular HGB Conc [place] ([facility]) platelet count, automated 138 10 150-450 Below low denice l Platelet Count, Automated [place] ([facility]) lymph % 11.3 % 24.0-44.0 Below low normal Lymph % [place] ( [facility]) neutrophils % 75.2 % 36.0-66.0 Above high normal Neutrophils % [place] ([facility]) eos % 0.9 % 0.0-3.0 normal Eos % [place] ([facility]) mono % 11.6 % 0.0-5.0 Above high normal [place] % [place] ([facility]) nucleated red blood cell % 0.0 % 0-0 normal Nucleated Red Blood Cell % [place] ([facility]) immature granulocyte % 0.4 % 0-3.0 normal Immature Gran ulocyte % [place] ([facility]) baso % 0.6 % 0.0-1.0 normal Baso % [place] ([facility]) neutrophils # 5.1 10 1.5-8.5 normal Neutrophils # [place] ( [facility]) lymph # 0.8 10 1.5-5.0 Below low normal Lymph # [place] ( [facility]) mono # 0.8 10 0.0-0.8 normal [place] # [place] ([facility]) baso # 0.0 10 0.0-0.2 normal Baso # [place] ([facility]) eos # 0.1 10 0.0-0.5 normal Eos # [place] ([facility]) ID Date Data Source [id number] 08/16/2020 11:48:00 AM EST [place] ([facility]) Name Value Range Interpretation Code Description Data Julia rce(s) Supporting Document(s) Ab screen gel manual negative normal Ab Screen Gel M anual [place] ([facility]) ID Date Data Source [id number] 08/16/2020 11:48:00 AM EST [place] ([facility]) Name Value Range Interpretation Code Description Data Julia rce(s) Supporting Document(s) blood type A positive normal Blood Type [place] ([facility]) ID Date Data Source [id number] 08/16/2020 11:48:00 AM EST [place] ([facility]) Name Value Range Interpretation Code Description Data Julia rce(s) Supporting Document(s) glucose, fasting 110 mg/dL 70-100 Above high normal Glucose, Fas ting [place] ([facility]) creatinine for GFR 1.03 mg/dL 0.55-1.30 normal Creatinine for GF R [place] ([facility]) blood urea nitrogen 29 mg/dL 7-18 Above high normal Blood Ure a Nitrogen [place] ([facility]) glomerular filtration rate >51 normal [place] r Filtration Rate [place] ([facility]) sodium level 128 mEq/L 136-145 Below low normal Sodium Level [place] ([facility]) chloride level 97 mEq/L 98-107 Below low normal Chloride Level [place] ([facility]) potassium serum 5.0 mEq/L 3.5-5.1 normal Potassium Serum [place] ([facility]) anion gap 6 mEq/L 8-16 Below low normal Anion Gap [place] ( [facility]) carbon dioxide level 25 mEq/L 21-32 normal Carbon Dioxide Level [place] ([facility]) calcium level 9.5 mg/dL 8.5-10.1 normal Calcium Level [place] ( [facility]) ID Date Data Source [id number] 08/16/2020 11:48:00 AM EST [place] ([facility]) Name Value Range Interpretation Code Description Data Julia rce(s) Supporting Document(s) prothrombin time 19.4 seconds 12.5-14.3 Above high normal Prothrombi n Time [place] ([facility]) partial thromboplastin time 39.9 seconds 24.2-38.5 Above high no rmal Partial Thromboplastin Time [place] ([facility]) INR normal Inr [place] ([facility]) ID Date Data Source [id number] 08/16/2020 11:48:00 AM EST [place] ([facility]) Name Value Range Interpretation Code Description Data Julia rce(s) Supporting Document(s) white blood count 6.8 10 4.0-10.0 normal White Blood Count [place] ([facility]) hematocrit 32.5 % 36.0-47.0 Below low normal Hematocrit [place] ( [facility]) red blood count 3.49 10 4.00-5.40 Below low normal Red Blood Coun t [place] ([facility]) hemoglobin 11.3 g/dL 12.0-15.5 Below low normal Hemoglobin [place] ( [facility]) mean corpuscular hemoglobin 32.4 pg 27.0-33.0 normal Mean Corpuscular Hemoglobin [place] ([facility]) mean corpuscular volume 93.1 fL 80.0-96.0 normal Mean Corpusc ular Volume [place] ([facility]) mean corpuscular HGB conc 34.8 g/dL 32.0-36.5 normal Mean Corpu scular HGB Conc [place] ([facility]) red cell distribution width 18.4 % 11.5-14.5 Above high no rmal Red Cell Distribution Width [place] ([facility]) platelet count, automated 138 10 150-450 Below low denice l Platelet Count, Automated [place] ([facility]) neutrophils % 75.2 % 36.0-66.0 Above high normal Neutrophils % [place] ([facility]) lymph % 11.3 % 24.0-44.0 Below low normal Lymph % [place] ( [facility]) mono % 11.6 % 0.0-5.0 Above high normal [place] % [place] ([facility]) eos % 0.9 % 0.0-3.0 normal Eos % [place] ([facility]) baso % 0.6 % 0.0-1.0 normal Baso % [place] ([facility]) immature granulocyte % 0.4 % 0-3.0 normal Immature Gran ulocyte % [place] ([facility]) nucleated red blood cell % 0.0 % 0-0 normal Nucleated Red Blood Cell % [place] ([facility]) neutrophils # 5.1 10 1.5-8.5 normal Neutrophils # [place] ( [facility]) eos # 0.1 10 0.0-0.5 normal Eos # [place] ([facility]) mono # 0.8 10 0.0-0.8 normal [place] # [place] ([facility]) lymph # 0.8 10 1.5-5.0 Below low normal Lymph # [place] ( [facility]) baso # 0.0 10 0.0-0.2 normal Baso # [place] ([facility]) ID Date Data Source [id number] 08/16/2020 11:48:00 AM EST [place] ([facility]) Name Value Range Interpretation Code Description Data Julia rce(s) Supporting Document(s) Ab screen gel manual negative normal Ab Screen Gel M anual [place] ([facility]) ID Date Data Source [id number] 08/16/2020 11:48:00 AM EST [place] ([facility]) Name Value Range Interpretation Code Description Data Julia rce(s) Supporting Document(s) blood type A positive normal Blood Type [place] ([facility]) ID Date Data Source [id number] 08/16/2020 11:48:00 AM EST [place] ([facility]) Name Value Range Interpretation Code Description Data Julia rce(s) Supporting Document(s) glucose, fasting 110 mg/dL 70-100 Above high normal Glucose, Fas ting [place] ([facility]) blood urea nitrogen 29 mg/dL 7-18 Above high normal Blood Ure a Nitrogen [place] ([facility]) creatinine for GFR 1.03 mg/dL 0.55-1.30 normal Creatinine for GF R [place] [facility] [facility] glomerular filtration rate >51 normal Glomerula r Filtration Rate [place] ([facility]) sodium level 128 mEq/L 136-145 Below low normal Sodium Level [place] ([facility]) potassium serum 5.0 mEq/L 3.5-5.1 normal Potassium Serum [place] ([facility]) chloride level 97 mEq/L 98-107 Below low normal Chloride Level [place] ([facility]) carbon dioxide level 25 mEq/L 21-32 normal Carbon Dioxide Level [place] ([facility]) anion gap 6 mEq/L 8-16 Below low normal Anion Gap [place] ( [facility]) calcium level 9.5 mg/dL 8.5-10.1 normal Calcium Level [place] ( [facility]) ID Date Data Source [id number] 08/16/2020 11:48:00 AM EST [facility]) Name Value Range Interpretation Code Description Data Julia rce(s) Supporting Document(s) prothrombin time 19.4 seconds 12.5-14.3 Above high normal Prothrombi n Time [place] ([facility]) partial thromboplastin time 39.9 seconds 24.2-38.5 Above high no rmal Partial Thromboplastin Time [place] ([facility]) INR normal Inr [place] ([facility]) ID Date Data Source [id number] 08/16/2020 11:48:00 AM EST [place] ([facility]) Name Value Range Interpretation Code Description Data Julia rce(s) Supporting Document(s) white blood count 6.8 10 4.0-10.0 normal White Blood Count [place] ([facility]) hemoglobin 11.3 g/dL 12.0-15.5 Below low normal Hemoglobin [place] ( [facility]) red blood count 3.49 10 4.00-5.40 Below low normal Red Blood Coun t [place] ([facility]) hematocrit 32.5 % 36.0-47.0 Below low normal Hematocrit [place] ( [facility]) mean corpuscular volume 93.1 fL 80.0-96.0 normal Mean Corpusc ular Volume [place] ([facility]) mean corpuscular HGB conc 34.8 g/dL 32.0-36.5 normal Mean Corpu scular HGB Conc [place] ([facility]) mean corpuscular hemoglobin 32.4 pg 27.0-33.0 normal Mean Corpuscular Hemoglobin [place] ([facility]) red cell distribution width 18.4 % 11.5-14.5 Above high no rmal Red Cell Distribution Width [place] ([facility]) platelet count, automated 138 10 150-450 Below low denice l Platelet Count, Automated [place] ([facility]) neutrophils % 75.2 % 36.0-66.0 Above high normal Neutrophils % A [place] ([facility]) lymph % 11.3 % 24.0-44.0 Below low normal Lymph % [place] ( [facility]) eos % 0.9 % 0.0-3.0 normal Eos % [place] ([facility]) mono % 11.6 % 0.0-5.0 Above high normal [place] % [place] ([facility]) baso % 0.6 % 0.0-1.0 normal Baso % [place] ([facility]) immature granulocyte % 0.4 % 0-3.0 normal Immature Gran ulocyte % [place] ([facility]) nucleated red blood cell % 0.0 % 0-0 normal Nucleated Red Blood Cell % [place] ([facility]) neutrophils # 5.1 10 1.5-8.5 normal Neutrophils # [place] ( [facility]) lymph # 0.8 10 1.5-5.0 Below low normal Lymph # [place] ( [facility]) mono # 0.8 10 0.0-0.8 normal [place] # [place] ([facility]) eos # 0.1 10 0.0-0.5 normal Eos # [place] ([facility]) baso # 0.0 10 0.0-0.2 normal Baso # [place] ([facility]) ID Date Data Source [id number] 08/16/2020 11:48:00 AM EST [place] ([facility]) Name Value Range Interpretation Code Description Data Julia rce(s) Supporting Document(s) Ab screen gel manual negative normal Ab Screen Gel M anual [place] ([facility]) ID Date Data Source [id number] 08/16/2020 11:48:00 AM EST [place] ([facility]) Name Value Range Interpretation Code Description Data Julia rce(s) Supporting Document(s) blood type A positive normal Blood Type [place] ([facility]) ID Date Data Source [id number] 08/16/2020 11:48:00 AM EST [place] ([facility]) Name Value Range Interpretation Code Description Data Julia rce(s) Supporting Document(s) blood urea nitrogen 29 mg/dL 7-18 Above high normal Blood Ure a Nitrogen [place] ([facility]) glucose, fasting 110 mg/dL 70-100 Above high normal Glucose, Fas ting [place] ([facility]) creatinine for GFR 1.03 mg/dL 0.55-1.30 normal Creatinine for GF R [place] ([facility]) glomerular filtration rate >51 normal [place]omer[place] r Filtration Rate [place] ([facility]) potassium serum 5.0 mEq/L 3.5-5.1 normal Potassium Serum [place] ([facility]) sodium level 128 mEq/L 136-145 Below low normal Sodium Level [place] ([facility]) carbon dioxide level 25 mEq/L 21-32 normal Carbon Dioxide Level [place] ([facility]) chloride level 97 mEq/L 98-107 Below low normal Chloride Level [place] ([facility]) anion gap 6 mEq/L 8-16 Below low normal Anion Gap [place] ( [facility]) calcium level 9.5 mg/dL 8.5-10.1 normal Calcium Level [place] ( [facility]) ID Date Data Source [id number] 08/16/2020 11:48:00 AM EST [place] ([facility]) Name Value Range Interpretation Code Description Data Julia rce(s) Supporting Document(s) prothrombin time 19.4 seconds 12.5-14.3 Above high normal Prothrombi n Time [place] ([facility]) INR normal Inr [place] ([facility]) partial thromboplastin time 39.9 seconds 24.2-38.5 Above high no rmal Partial Thromboplastin Time [place] ([facility]) ID Date Data Source [id number] 08/16/2020 11:48:00 AM EST [place] ([facility]) Name Value Range Interpretation Code Description Data Julia rce(s) Supporting Document(s) white blood count 6.8 10 4.0-10.0 normal White Blood Count [place] ([facility]) red blood count 3.49 10 4.00-5.40 Below low normal Red Blood Coun t [place] ([facility]) hemoglobin 11.3 g/dL 12.0-15.5 Below low normal Hemoglobin [place] ( [facility]) hematocrit 32.5 % 36.0-47.0 Below low normal Hematocrit [place] ( [facility]) mean corpuscular volume 93.1 fL 80.0-96.0 normal Mean Corpusc ular Volume [place] ([facility]) mean corpuscular hemoglobin 32.4 pg 27.0-33.0 normal Mean Corpuscular Hemoglobin [place] ([facility]) mean corpuscular HGB conc 34.8 g/dL 32.0-36.5 normal Mean Corpu scular HGB Conc [place] ([facility]) neutrophils % 75.2 % 36.0-66.0 Above high normal Neutrophils % A [place] ([facility]) platelet count, automated 138 10 150-450 Below low denice l Platelet Count, Automated [place] ([facility]) red cell distribution width 18.4 % 11.5-14.5 Above high no rmal Red Cell Distribution Width [place] ([facility]) lymph % 11.3 % 24.0-44.0 Below low normal Lymph % [place] ( [facility]) mono % 11.6 % 0.0-5.0 Above high normal [place] % [place] ([facility]) immature granulocyte % 0.4 % 0-3.0 normal Immature Gran ulocyte % [place] ([facility]) baso % 0.6 % 0.0-1.0 normal Baso % [place] ([facility]) eos % 0.9 % 0.0-3.0 normal Eos % [place] ([facility]) nucleated red blood cell % 0.0 % 0-0 normal Nucleated Red Blood Cell % [place] ([facility]) neutrophils # 5.1 10 1.5-8.5 normal Neutrophils # [place] ( [facility]) mono # 0.8 10 0.0-0.8 normal [place] # [place] ([facility]) eos # 0.1 10 0.0-0.5 normal Eos # [place] ([facility]) lymph # 0.8 10 1.5-5.0 Below low normal Lymph # [place] ( [facility]) baso # 0.0 10 0.0-0.2 normal Baso # [place] ([facility]) ID Date Data Source [id number] 08/16/2020 09:04:00 AM EST [place] ([facility]) Name Value Range Interpretation Code Description Data Julia rce(s) Supporting Document(s) albumin 25% transfused product: albumin 25% count: 4 Albumin 25% [place] ([facility]) ID Date Data Source [id number] 08/16/2020 09:04:00 AM EST [place] ([facility]) Name Value Range Interpretation Code Description Data Julia rce(s) Supporting Document(s) total protein, body fluid 1.4 g/dL not established normal Total Protein, Body Fluid [place] ([facility]) source, body fluid tot protein ascites normal Sourc e, Body Fluid Tot Protein [place] ([facility]) ID Date Data Source [id number] 08/16/2020 09:04:00 AM EST [place] ([facility]) Name Value Range Interpretation Code Description Data Julia rce(s) Supporting Document(s) ascites fL color yellow colorless normal Ascites fL Color [place] ([facility]) source, body fluid ascites normal Source, Body Flui d [place] ([facility]) WBC body fluid 163 /uL 0-10 Above high normal WBC Body Fluid [place] ([facility]) appearance, body fluid cloudy clear normal Appearance, B jamil Fluid [place] ([facility]) bf mononuclear cell % 97.6 % 0-0 Above high normal Bf [place] nuclear Cell % [place] ([facility]) RBC body fluid < 2 <2 normal RBC Body Fluid [place] ([facility]) bf polymorphonuclear cell % 2.4 % 0-0 Above high no rmal Bf Polymorphonuclear Cell % [place] ([facility]) ID Date Data Source [id number] 08/16/2020 09:04:00 AM EST [place] ([facility]) Name Value Range Interpretation Code Description Data Julia rce(s) Supporting Document(s) albumin, body fluid 0.7 g/dL not established normal Albumin, Julien dy Fluid [place] ([facility]) source, body fluid albumin ascites normal Source, B jamil Fluid Albumin [place] ([facility]) ID Date Data Source [id number] 08/16/2020 09:04:00 AM EST [place] ([facility]) Name Value Range Interpretation Code Description Data Julia rce(s) Supporting Document(s) albumin 25% transfused product: albumin 25% count: 4 Albumin 25% [place] ([facility]) ID Date Data Source [id number] 08/16/2020 09:04:00 AM EST [place] ([facility]) Name Value Range Interpretation Code Description Data Julia rce(s) Supporting Document(s) total protein, body fluid 1.4 g/dL not established normal Total Protein, Body Fluid [place] ([facility]) source, body fluid tot protein ascites normal Sourc e, Body Fluid Tot Protein [place] ([facility]) ID Date Data Source [id number] 08/16/2020 09:04:00 AM EST [place] ([facility]) Name Value Range Interpretation Code Description Data Julia rce(s) Supporting Document(s) source, body fluid ascites normal Source, Body Flui d [place] ([facility]) ascites fL color yellow colorless normal Ascites fL Color [place] ([facility]) appearance, body fluid cloudy clear normal Appearance, B jamil Fluid [place] ([facility]) WBC body fluid 163 /uL 0-10 Above high normal WBC Body Fluid [place] ([facility]) bf mononuclear cell % 97.6 % 0-0 Above high normal Bf [place] nuclear Cell % [place] ([facility]) RBC body fluid < 2 <2 normal RBC Body Fluid [place] ([facility]) bf polymorphonuclear cell % 2.4 % 0-0 Above high no rmal Bf Polymorphonuclear Cell % [place] ([facility]) ID Date Data Source [id number] 08/16/2020 09:04:00 AM EST [place] ([facility]) Name Value Range Interpretation Code Description Data Julia rce(s) Supporting Document(s) albumin, body fluid 0.7 g/dL not established normal Albumin, Julien dy Fluid [place] ([facility]) source, body fluid albumin ascites normal Source, B jamil Fluid Albumin [place] ([facility]) ID Date Data Source [id number] 08/16/2020 09:04:00 AM EST [place] ([facility]) Name Value Range Interpretation Code Description Data Julia rce(s) Supporting Document(s) albumin 25% transfused product: albumin 25% count: 4 Albumin 25% [place] ([facility]) ID Date Data Source [id number] 08/16/2020 09:04:00 AM EST [place] ([facility]) Name Value Range Interpretation Code Description Data Julia rce(s) Supporting Document(s) total protein, body fluid 1.4 g/dL not established normal Total Protein, Body Fluid [place] ([facility]) source, body fluid tot protein ascites normal Sourc e, Body Fluid Tot Protein [place] ([facility]) ID Date Data Source [id number] 08/16/2020 09:04:00 AM EST [place] ([facility]) Name Value Range Interpretation Code Description Data Julia rce(s) Supporting Document(s) source, body fluid ascites normal Source, Body Flui d [place] ([facility]) ascites fL color yellow colorless normal Ascites fL Color [place] ([facility]) appearance, body fluid cloudy clear normal Appearance, B jamil Fluid [place] ([facility]) RBC body fluid < 2 <2 normal RBC Body Fluid [place] ([facility]) WBC body fluid 163 /uL 0-10 Above high normal WBC Body Fluid [place] ([facility]) bf polymorphonuclear cell % 2.4 % 0-0 Above high no rmal Bf Polymorphonuclear Cell % [place] ([facility]) bf mononuclear cell % 97.6 % 0-0 Above high normal Bf [place] nuclear Cell % [place] ([facility]) ID Date Data Source [id number] 08/16/2020 09:04:00 AM EST [place] ([facility]) Name Value Range Interpretation Code Description Data Julia rce(s) Supporting Document(s) albumin, body fluid 0.7 g/dL not established normal Albumin, Julien dy Fluid [place] ([facility]) source, body fluid albumin ascites normal Source, B jamil Fluid Albumin [place] ([facility]) ID Date Data Source [id number] 08/16/2020 09:04:00 AM EST [place] ([facility]) Name Value Range Interpretation Code Description Data Julia rce(s) Supporting Document(s) albumin 25% transfused product: albumin 25% count: 4 Albumin 25% [place] ([facility]) ID Date Data Source [id number] 08/16/2020 09:04:00 AM EST [place] ([facility]) Name Value Range Interpretation Code Description Data Julia rce(s) Supporting Document(s) total protein, body fluid 1.4 g/dL not established normal Total Protein, Body Fluid [place] ([facility]) source, body fluid tot protein ascites normal Sourc e, Body Fluid Tot Protein [place] ([facility]) ID Date Data Source [id number] 08/16/2020 09:04:00 AM EST [place] ([facility]) Name Value Range Interpretation Code Description Data Julia rce(s) Supporting Document(s) source, body fluid ascites normal Source, Body Flui d [place] ([facility]) ascites fL color yellow colorless normal Ascites fL Color [place] ([facility]) appearance, body fluid cloudy clear normal Appearance, B jamil Fluid [place] ([facility]) WBC body fluid 163 /uL 0-10 Above high normal WBC Body Fluid [place] ([facility]) bf mononuclear cell % 97.6 % 0-0 Above high normal Bf [place] nuclear Cell % [place] ([facility]) RBC body fluid < 2 <2 normal RBC Body Fluid [place] ([facility]) bf polymorphonuclear cell % 2.4 % 0-0 Above high no rmal Bf Polymorphonuclear Cell % [place] ([facility]) ID Date Data Source [id number] 08/16/2020 09:04:00 AM EST [place] ([facility]) Name Value Range Interpretation Code Description Data Julia rce(s) Supporting Document(s) albumin, body fluid 0.7 g/dL not established normal Albumin, Julien dy Fluid [place] ([facility]) source, body fluid albumin ascites normal Source, B jamil Fluid Albumin [place] ([facility]) ID Date Data Source [id number] 08/14/2020 04:00:00 PM EST [place] ([facility]) Name Value Range Interpretation Code Description Data Julia rce(s) Supporting Document(s) ID Date Data Source [id number] 08/14/2020 04:00:00 PM EST [place] ([facility]) Name Value Range Interpretation Code Description Data Julia rce(s) Supporting Document(s) ID Date Data Source [id number] 08/14/2020 04:00:00 PM EST [place] ([facility]) Name Value Range Interpretation Code Description Data Julia rce(s) Supporting Document(s) ID Date Data Source [id number] 08/14/2020 04:00:00 PM EST [place] ([facility]) Name Value Range Interpretation Code Description Data Julia rce(s) Supporting Document(s) ID Date Data Source [id number] 08/10/2020 07:19:00 AM EDT [place] ([facility]) Name Value Range Interpretation Code Description Data Julia rce(s) Supporting Document(s) glucose, fasting 130 mg/dL 70-100 Above high normal Glucose, Fas ting [place] ([facility]) creatinine for GFR 1.49 mg/dL 0.55-1.30 Above high normal Creatinine for GFR [place] ([facility]) blood urea nitrogen 34 mg/dL 7-18 Above high normal Blood Ure a Nitrogen [place] ([facility]) glomerular filtration rate >51 Below low normal De[place]ra merular Filtration Rate [place] ([facility]) sodium level 127 mEq/L 136-145 Below low normal Sodium Level [place] ([facility]) potassium serum 5.3 mEq/L 3.5-5.1 Above high normal Potassium Ser um [place] ([facility]) chloride level 93 mEq/L 98-107 Below low normal Chloride Level [place] ([facility]) calcium level 9.1 mg/dL 8.5-10.1 normal Calcium Level [place] ( [facility]) carbon dioxide level 28 mEq/L 21-32 normal Carbon Dioxide Level [place] ([facility]) anion gap 6 mEq/L 8-16 Below low normal Anion Gap [place] ( [facility]) ID Date Data Source [id number] 08/10/2020 07:19:00 AM EDT [place] ([facility]) Name Value Range Interpretation Code Description Data Julia rce(s) Supporting Document(s) ALT/SGPT 30 U/L 12-78 normal ALT/SGPT [place] ([facility]) AST/SGOT 51 U/L 7-37 Above high normal AST/SGOT [place] ([facility]) alkaline phosphatase 136 U/L 45-117 Above high normal Alkaline Phosphatase [place] ([facility]) total protein 7.1 gm/dL 6.4-8.2 normal Total Protein [place] ( [facility]) bilirubin,direct 1.6 mg/dL 0.0-0.2 Above high normal Bilirubin,di rect [place] ([facility]) bilirubin,total 4.7 mg/dL 0.2-1.0 Above high normal Bilirubin,tot al [place] ([facility]) albumin/globulin ratio 1.2-2.2 normal Albumin/globu adam Ratio [place] ([facility]) albumin 3.8 gm/dL 3.2-5.2 normal Albumin [place] ([facility]) ID Date Data Source [id number] 08/10/2020 07:19:00 AM EDT [place] ([facility]) Name Value Range Interpretation Code Description Data Julia rce(s) Supporting Document(s) sodium,random urine 16 mEq/L normal Sodium,random Ur ine [place] ([facility]) ID Date Data Source [id number] 08/10/2020 07:19:00 AM EDT [place] ([facility]) Name Value Range Interpretation Code Description Data Julia rce(s) Supporting Document(s) creatinine,random urine 118.0 mg/dL normal Creatinine, random Urine [place] ([facility]) ID Date Data Source [id number] 08/10/2020 07:19:00 AM EDT [place] ([facility]) Name Value Range Interpretation Code Description Data Julia rce(s) Supporting Document(s) white blood count 8.6 10 4.0-10.0 normal White Blood Count [place] ([facility]) red blood count 3.14 10 4.00-5.40 Below low normal Red Blood Coun t [place] ([facility]) hematocrit 28.6 % 36.0-47.0 Below low normal Hematocrit [place] ( [facility]) hemoglobin 10.1 g/dL 12.0-15.5 Below low normal Hemoglobin [place] ( [facility]) mean corpuscular hemoglobin 32.2 pg 27.0-33.0 normal Mean Corpuscular Hemoglobin [place] ([facility]) mean corpuscular HGB conc 35.3 g/dL 32.0-36.5 normal Mean Corpu scular HGB Conc [place] ([facility]) mean corpuscular volume 91.1 fL 80.0-96.0 normal Mean Corpusc ular Volume [place] ([facility]) nucleated red blood cell % 0.0 % 0-0 normal Nucleated Red Blood Cell % [place] ([facility]) red cell distribution width 17.7 % 11.5-14.5 Above high no rmal Red Cell Distribution Width [place] ([facility]) platelet count, automated 118 10 150-450 Below low denice l Platelet Count, Automated [place] ([facility]) ID Date Data Source [id number] 08/10/2020 07:19:00 AM EDT [facility]) Name Value Range Interpretation Code Description Data Julia rce(s) Supporting Document(s) blood urea nitrogen 34 mg/dL 7-18 Above high normal Blood Ure a Nitrogen [place] ([facility]) glucose, fasting 130 mg/dL 70-100 Above high normal Glucose, Fas ting [facility]) creatinine for GFR 1.49 mg/dL 0.55-1.30 Above high normal Creatinine for GFR [place] ([facility]) glomerular filtration rate >51 Below low normal Deidra merular Filtration Rate [place] ([facility]) sodium level 127 mEq/L 136-145 Below low normal Sodium Level [place] ([facility]) chloride level 93 mEq/L 98-107 Below low normal Chloride Level [place] ([facility]) anion gap 6 mEq/L 8-16 Below low normal Anion Gap [place] ( [facility]) potassium serum 5.3 mEq/L 3.5-5.1 Above high normal Potassium Ser um [place] ([facility]) carbon dioxide level 28 mEq/L 21-32 normal Carbon Dioxide Level [place] ([facility]) calcium level 9.1 mg/dL 8.5-10.1 normal Calcium Level [place] ( [facility]) ID Date Data Source [id number] 08/10/2020 07:19:00 AM EDT [place] ([facility]) Name Value Range Interpretation Code Description Data Julia rce(s) Supporting Document(s) AST/SGOT 51 U/L 7-37 Above high normal AST/SGOT [place] ([facility]) ALT/SGPT 30 U/L 12-78 normal ALT/SGPT [place] ([facility]) bilirubin,total 4.7 mg/dL 0.2-1.0 Above high normal Bilirubin,tot al [place] ([facility]) alkaline phosphatase 136 U/L 45-117 Above high normal Alkaline Phosphatase [place] ([facility]) albumin 3.8 gm/dL 3.2-5.2 normal Albumin [place] ([facility]) albumin/globulin ratio 1.2-2.2 normal Albumin/globu adam Ratio [place] ([facility]) bilirubin,direct 1.6 mg/dL 0.0-0.2 Above high normal Bilirubin,di rect [place] ([facility]) total protein 7.1 gm/dL 6.4-8.2 normal Total Protein [facility]) ID Date Data Source [id number] 08/10/2020 07:19:00 AM EDT [place] ([facility]) Name Value Range Interpretation Code Description Data Julia rce(s) Supporting Document(s) sodium,random urine 16 mEq/L normal Sodium,random Ur ine [place] ([facility]) ID Date Data Source [id number] 08/10/2020 07:19:00 AM EDT [place] ([facility]) Name Value Range Interpretation Code Description Data Julia rce(s) Supporting Document(s) creatinine,random urine 118.0 mg/dL normal Creatinine, random Urine [place] ([facility]) ID Date Data Source [id number] 08/10/2020 07:19:00 AM EDT [facility]) Name Value Range Interpretation Code Description Data Julia rce(s) Supporting Document(s) red blood count 3.14 10 4.00-5.40 Below low normal Red Blood Coun t [facility]) white blood count 8.6 10 4.0-10.0 normal White Blood Count [place] ([facility]) hematocrit 28.6 % 36.0-47.0 Below low normal Hematocrit [place] ( [facility]) hemoglobin 10.1 g/dL 12.0-15.5 Below low normal Hemoglobin [place] ( [facility]) mean corpuscular hemoglobin 32.2 pg 27.0-33.0 normal Mean Corpuscular Hemoglobin [place] ([facility]) mean corpuscular volume 91.1 fL 80.0-96.0 normal Mean Corpusc ular Volume [place] ([facility]) platelet count, automated 118 10 150-450 Below low denice l Platelet Count, Automated [facility]) mean corpuscular HGB conc 35.3 g/dL 32.0-36.5 normal Mean Corpu scular HGB Conc [place] ([facility]) red cell distribution width 17.7 % 11.5-14.5 Above high no rmal Red Cell Distribution Width [place] ([facility]) nucleated red blood cell % 0.0 % 0-0 normal Nucleated Red Blood Cell % [place] ([facility]) ID Date Data Source [id number] 08/10/2020 07:19:00 AM EDT [place] ([facility]) Name Value Range Interpretation Code Description Data Julia rce(s) Supporting Document(s) glucose, fasting 130 mg/dL 70-100 Above high normal Glucose, Fas ting [place] ([facility]) blood urea nitrogen 34 mg/dL 7-18 Above high normal Blood Ure a Nitrogen [place] ([facility]) creatinine for GFR 1.49 mg/dL 0.55-1.30 Above high normal Creatinine for GFR [place] ([facility]) glomerular filtration rate >51 Below low normal Deidra merular Filtration Rate [place] ([facility]) sodium level 127 mEq/L 136-145 Below low normal Sodium Level [place] ([facility]) potassium serum 5.3 mEq/L 3.5-5.1 Above high normal Potassium Ser um [place] ([facility]) chloride level 93 mEq/L 98-107 Below low normal Chloride Level [place] ([facility]) anion gap 6 mEq/L 8-16 Below low normal Anion Gap [place] ( [facility]) carbon dioxide level 28 mEq/L 21-32 normal Carbon Dioxide Level [place] ([facility]) calcium level 9.1 mg/dL 8.5-10.1 normal Calcium Level [place] ( [facility]) ID Date Data Source [id number] 08/10/2020 07:19:00 AM EDT [place] ([facility]) Name Value Range Interpretation Code Description Data Julia rce(s) Supporting Document(s) AST/SGOT 51 U/L 7-37 Above high normal AST/SGOT [place] ([facility]) alkaline phosphatase 136 U/L 45-117 Above high normal Alkaline Phosphatase [place] ([facility]) ALT/SGPT 30 U/L 12-78 normal ALT/SGPT [place] ([facility]) bilirubin,direct 1.6 mg/dL 0.0-0.2 Above high normal Bilirubin,di rect [place] ([facility]) bilirubin,total 4.7 mg/dL 0.2-1.0 Above high normal Bilirubin,tot al [place] ([facility]) total protein 7.1 gm/dL 6.4-8.2 normal Total Protein [place] ( [facility]) albumin 3.8 gm/dL 3.2-5.2 normal Albumin [place] ([facility]) albumin/globulin ratio 1.2-2.2 normal Albumin/globu adam Ratio [place] ([facility]) ID Date Data Source [id number] 08/10/2020 07:19:00 AM EDT [facility]) Name Value Range Interpretation Code Description Data Julia rce(s) Supporting Document(s) sodium,random urine 16 mEq/L normal Sodium,random Ur ine [facility]) ID Date Data Source [id number] 08/10/2020 07:19:00 AM EDT [facility]) Name Value Range Interpretation Code Description Data Julia rce(s) Supporting Document(s) creatinine,random urine 118.0 mg/dL normal Creatinine, random Urine [facility]) ID Date Data Source [id number] 08/10/2020 07:19:00 AM EDT [facility]) Name Value Range Interpretation Code Description Data Julia rce(s) Supporting Document(s) white blood count 8.6 10 4.0-10.0 normal White Blood Count [place] ([facility]) hemoglobin 10.1 g/dL 12.0-15.5 Below low normal Hemoglobin [place] ( [facility]) red blood count 3.14 10 4.00-5.40 Below low normal Red Blood Coun t [place] ([facility]) mean corpuscular volume 91.1 fL 80.0-96.0 normal Mean Corpusc ular Volume [place] ([facility]) hematocrit 28.6 % 36.0-47.0 Below low normal Hematocrit [place] ( [facility]) mean corpuscular hemoglobin 32.2 pg 27.0-33.0 normal Mean Corpuscular Hemoglobin [place] ([facility]) mean corpuscular HGB conc 35.3 g/dL 32.0-36.5 normal Mean Corpu scular HGB Conc [place] ([facility]) red cell distribution width 17.7 % 11.5-14.5 Above high no rmal Red Cell Distribution Width [place] ([facility]) platelet count, automated 118 10 150-450 Below low denice l Platelet Count, Automated [place] ([facility]) nucleated red blood cell % 0.0 % 0-0 normal Nucleated Red Blood Cell % [place] ([facility]) ID Date Data Source [id number] 08/10/2020 07:19:00 AM EDT [place] ([facility]) Name Value Range Interpretation Code Description Data Julia rce(s) Supporting Document(s) glucose, fasting 130 mg/dL 70-100 Above high normal Glucose, Fas ting [place] ([facility]) blood urea nitrogen 34 mg/dL 7-18 Above high normal Blood Ure a Nitrogen [place] ([facility]) creatinine for GFR 1.49 mg/dL 0.55-1.30 Above high normal Creatinine for GFR [place] ([facility]) glomerular filtration rate >51 Below low normal Deidra merular Filtration Rate [place] ([facility]) carbon dioxide level 28 mEq/L 21-32 normal Carbon Dioxide Level [place] ([facility]) chloride level 93 mEq/L 98-107 Below low normal Chloride Level [place] ([facility]) sodium level 127 mEq/L 136-145 Below low normal Sodium Level [place] ([facility]) potassium serum 5.3 mEq/L 3.5-5.1 Above high normal Potassium Ser um [place] ([facility]) anion gap 6 mEq/L 8-16 Below low normal Anion Gap [place] ( [facility]) calcium level 9.1 mg/dL 8.5-10.1 normal Calcium Level [place] ( [facility]) ID Date Data Source [id number] 08/10/2020 07:19:00 AM EDT [place] ([facility]) Name Value Range Interpretation Code Description Data Julia rce(s) Supporting Document(s) AST/SGOT 51 U/L 7-37 Above high normal AST/SGOT [place] ([facility]) ALT/SGPT 30 U/L 12-78 normal ALT/SGPT [place] ([facility]) bilirubin,total 4.7 mg/dL 0.2-1.0 Above high normal Bilirubin,tot al [place] ([facility]) alkaline phosphatase 136 U/L 45-117 Above high normal Alkaline Phosphatase [place] ([facility]) bilirubin,direct 1.6 mg/dL 0.0-0.2 Above high normal Bilirubin,di rect [place] ([facility]) albumin/globulin ratio 1.2-2.2 normal Albumin/globu adam Ratio [place] ([facility]) albumin 3.8 gm/dL 3.2-5.2 normal Albumin [place] ([facility]) total protein 7.1 gm/dL 6.4-8.2 normal Total Protein [place] ( [facility]) ID Date Data Source [id number] 08/10/2020 07:19:00 AM EDT [place] ([facility]) Name Value Range Interpretation Code Description Data Julia rce(s) Supporting Document(s) sodium,random urine 16 mEq/L normal Sodium,random Ur ine [place] ([facility]) ID Date Data Source [id number] 08/10/2020 07:19:00 AM EDT [place] ([facility]) Name Value Range Interpretation Code Description Data Julia rce(s) Supporting Document(s) creatinine,random urine 118.0 mg/dL normal Creatinine, random Urine [place] ([facility]) ID Date Data Source [id number] 08/10/2020 07:19:00 AM EDT [facility]) Name Value Range Interpretation Code Description Data Julia rce(s) Supporting Document(s) white blood count 8.6 10 4.0-10.0 normal White Blood Count [place] ([facility]) hemoglobin 10.1 g/dL 12.0-15.5 Below low normal Hemoglobin [place] ( [facility]) red blood count 3.14 10 4.00-5.40 Below low normal Red Blood Coun t [place] ([facility]) hematocrit 28.6 % 36.0-47.0 Below low normal Hematocrit [place] ( [facility]) mean corpuscular volume 91.1 fL 80.0-96.0 normal Mean Corpusc ular Volume [place] ([facility]) mean corpuscular hemoglobin 32.2 pg 27.0-33.0 normal Mean Corpuscular Hemoglobin [place] ([facility]) mean corpuscular HGB conc 35.3 g/dL 32.0-36.5 normal Mean Corpu scular HGB Conc [place] ([facility]) red cell distribution width 17.7 % 11.5-14.5 Above high no rmal Red Cell Distribution Width [place] ([facility]) platelet count, automated 118 10 150-450 Below low denice l Platelet Count, Automated [place] ([facility]) nucleated red blood cell % 0.0 % 0-0 normal Nucleated Red Blood Cell % [place] ([facility]) ID Date Data Source [id number] 08/09/2020 12:28:00 PM EDT [place] ([facility]) Name Value Range Interpretation Code Description Data Julia rce(s) Supporting Document(s) albumin, body fluid 0.7 g/dL not established normal Albumin, Julien dy Fluid [place] ([facility]) source, body fluid albumin ascites normal Source, B jamil Fluid Albumin [facility]) ID Date Data Source [id number] 08/09/2020 12:28:00 PM EDT [facility]) Name Value Range Interpretation Code Description Data Julia rce(s) Supporting Document(s) total protein, body fluid 1.3 g/dL not established normal Total Protein, Body Fluid [place] ([facility]) source, body fluid tot protein ascites normal Sourc e, Body Fluid Tot Protein [facility]) ID Date Data Source [id number] 08/09/2020 12:28:00 PM EDT [facility]) Name Value Range Interpretation Code Description Data Julia rce(s) Supporting Document(s) source, body fluid ascites normal Source, Body Flui d [place] ([facility]) appearance, body fluid cloudy clear normal Appearance, B jamil Fluid [place] ([facility]) ascites fL color yellow colorless normal Ascites fL Color AT [facility] ([facility]) WBC body fluid 152 /uL 0-10 Above high normal WBC Body Fluid [place] ([facility]) bf mononuclear cell % 96.7 % 0-0 Above high normal Bf [place] nuclear Cell % [place] ([facility]) RBC body fluid 3 10 <2 normal RBC Body Fluid [place] ([facility]) bf polymorphonuclear cell % 3.3 % 0-0 Above high no rmal Bf Polymorphonuclear Cell % [facility]) ID Date Data Source [id number] 08/09/2020 12:28:00 PM EDT [facility]) Name Value Range Interpretation Code Description Data Julia rce(s) Supporting Document(s) source, body fluid ascites normal Source, Body Flui d [place] ([facility]) appearance, body fluid cloudy clear normal Appearance, B jamil Fluid [place] ([facility]) ascites fL color yellow colorless normal Ascites fL Color AT [place] ([facility]) WBC body fluid 152 /uL 0-10 Above high normal WBC Body Fluid [place] ([facility]) RBC body fluid 3 10 <2 normal RBC Body Fluid [place] ([facility]) bf polymorphonuclear cell % 3.3 % 0-0 Above high no rmal Bf Polymorphonuclear Cell % [place] ([facility]) bf mononuclear cell % 96.7 % 0-0 Above high normal Bf [place] nuclear Cell % [place] ([facility]) ID Date Data Source [id number] 08/09/2020 12:28:00 PM EDT [place] ([facility]) Name Value Range Interpretation Code Description Data Julia rce(s) Supporting Document(s) source, body fluid albumin ascites normal Source, B jamil Fluid Albumin [place] ([facility]) albumin, body fluid 0.7 g/dL not established normal Albumin, Julien dy Fluid [place] ([facility]) ID Date Data Source [id number] 08/09/2020 12:28:00 PM EDT [facility]) Name Value Range Interpretation Code Description Data Julia rce(s) Supporting Document(s) source, body fluid tot protein ascites normal Sourc e, Body Fluid Tot Protein [place] ([facility]) total protein, body fluid 1.3 g/dL not established normal Total Protein, Body Fluid [place] ([facility]) ID Date Data Source [id number] 08/09/2020 12:28:00 PM EDT [place] ([facility]) Name Value Range Interpretation Code Description Data Julia rce(s) Supporting Document(s) ascites fL color yellow colorless normal Ascites fL Color AT [facility] ([facility]) source, body fluid ascites normal Source, Body Flui d [place] ([facility]) WBC body fluid 152 /uL 0-10 Above high normal WBC Body Fluid [place] ([facility]) appearance, body fluid cloudy clear normal Appearance, B jamil Fluid [place] ([facility]) RBC body fluid 3 10 <2 normal RBC Body Fluid [place] ([facility]) bf mononuclear cell % 96.7 % 0-0 Above high normal Bf [place] nuclear Cell % [place] ([facility]) bf polymorphonuclear cell % 3.3 % 0-0 Above high no rmal Bf Polymorphonuclear Cell % [place] ([facility]) ID Date Data Source [id number] 08/09/2020 12:28:00 PM EDT [place] ([facility]) Name Value Range Interpretation Code Description Data Julia rce(s) Supporting Document(s) albumin, body fluid 0.7 g/dL not established normal Albumin, Julien dy Fluid [place] ([facility]) source, body fluid albumin ascites normal Source, B jamil Fluid Albumin [place] ([facility]) ID Date Data Source [id number] 08/09/2020 12:28:00 PM EDT [place] ([facility]) Name Value Range Interpretation Code Description Data Julia rce(s) Supporting Document(s) source, body fluid tot protein ascites normal Sourc e, Body Fluid Tot Protein [place] ([facility]) total protein, body fluid 1.3 g/dL not established normal Total Protein, Body Fluid [place] ([facility]) ID Date Data Source [id number] 08/09/2020 12:28:00 PM EDT [place] ([facility]) Name Value Range Interpretation Code Description Data Julia rce(s) Supporting Document(s) ascites fL color yellow colorless normal Ascites fL Color AT [place] ([facility]) source, body fluid ascites normal Source, Body Flui d [place] ([facility]) RBC body fluid 3 10 <2 normal RBC Body Fluid [place] ([facility]) appearance, body fluid cloudy clear normal Appearance, B jamil Fluid [place] ([facility]) WBC body fluid 152 /uL 0-10 Above high normal WBC Body Fluid [place] ([facility]) bf polymorphonuclear cell % 3.3 % 0-0 Above high no rmal Bf Polymorphonuclear Cell % [place] ([facility]) bf mononuclear cell % 96.7 % 0-0 Above high normal Bf [place] nuclear Cell % [place] ([facility]) ID Date Data Source [id number] 08/09/2020 12:28:00 PM EDT [facility]) Name Value Range Interpretation Code Description Data Julia rce(s) Supporting Document(s) source, body fluid albumin ascites normal Source, B jamil Fluid Albumin [place] ([facility]) albumin, body fluid 0.7 g/dL not established normal Albumin, Julien dy Fluid [place] ([facility]) ID Date Data Source [id number] 08/09/2020 12:28:00 PM EDT [place] ([facility]) Name Value Range Interpretation Code Description Data Julia rce(s) Supporting Document(s) source, body fluid tot protein ascites normal Sourc e, Body Fluid Tot Protein [place] ([facility]) total protein, body fluid 1.3 g/dL not established normal Total Protein, Body Fluid [place] ([facility]) ID Date Data Source [id number] 08/09/2020 12:03:00 PM EDT [place] ([facility]) Name Value Range Interpretation Code Description Data Julia rce(s) Supporting Document(s) albumin 25% transfused product: albumin 25% count: 4 Albumin 25% [place] ([facility]) ID Date Data Source [id number] 08/09/2020 12:03[facility]00 [facility] Name Value Range Interpretation Code Description Data Julia rce(s) Supporting Document(s) albumin 25% transfused product: albumin 25% count: 4 Albumin 25% [place] ([facility]) ID Date Data Source [id number] 08/09/2020 12:03:00 PM EDT [place] ([facility]) Name Value Range Interpretation Code Description Data Julia rce(s) Supporting Document(s) albumin 25% transfused product: albumin 25% count: 4 Albumin 25% [place] ([facility]) ID Date Data Source [id number] 08/09/2020 12:03:00 PM EDT [place] ([facility]) Name Value Range Interpretation Code Description Data Julia rce(s) Supporting Document(s) albumin 25% transfused product: albumin 25% count: 4 Albumin 25% [place] ([facility]) ID Date Data Source [id number] 08/02/2020 12:40:00 PM EDT [place] ([facility]) Name Value Range Interpretation Code Description Data Julia rce(s) Supporting Document(s) source, body fluid albumin ascites normal Source, B jamil Fluid Albumin [place] ([facility]) albumin, body fluid 0.7 g/dL not established normal Albumin, Julien dy Fluid [place] ([facility]) ID Date Data Source [id number] 08/02/2020 12:40:00 PM EDT [place] ([facility]) Name Value Range Interpretation Code Description Data Julia rce(s) Supporting Document(s) total protein, body fluid 1.2 g/dL not established normal Total Protein, Body Fluid [place] ([facility]) source, body fluid tot protein ascites normal Sourc e, Body Fluid Tot Protein [place] ([facility]) ID Date Data Source [id number] 08/02/2020 12:40:00 PM EDT [place] ([facility]) Name Value Range Interpretation Code Description Data Julia rce(s) Supporting Document(s) source, body fluid ascites normal Source, Body Flui d [place] ([facility]) WBC body fluid 149 /uL 0-10 Above high normal WBC Body Fluid [place] ([facility]) appearance, body fluid cloudy clear normal Appearance, B jamil Fluid [place] ([facility]) ascites fL color yellow colorless normal Ascites fL Color AT [place] ([facility]) bf mononuclear cell % 97.3 % 0-0 Above high normal Bf [place] nuclear Cell % [place] ([facility]) RBC body fluid < 2 <2 normal RBC Body Fluid [place] ([facility]) bf polymorphonuclear cell % 2.7 % 0-0 Above high no rmal Bf Polymorphonuclear Cell % [place] ([facility]) ID Date Data Source [id number] 08/02/2020 12:40:00 PM EDT [facility]) Name Value Range Interpretation Code Description Data Julia rce(s) Supporting Document(s) albumin, body fluid 0.7 g/dL not established normal Albumin, Julien dy Fluid [place] ([facility]) source, body fluid albumin ascites normal Source, B jamil Fluid Albumin [facility]) ID Date Data Source [id number] 08/02/2020 12:40:00 PM EDT [facility]) Name Value Range Interpretation Code Description Data Julia rce(s) Supporting Document(s) total protein, body fluid 1.2 g/dL not established normal Total Protein, Body Fluid [facility]) source, body fluid tot protein ascites normal Sourc e, Body Fluid Tot Protein [facility]) ID Date Data Source [id number] 08/02/2020 12:40:00 PM EDT [facility]) Name Value Range Interpretation Code Description Data Julia rce(s) Supporting Document(s) source, body fluid ascites normal Source, Body Flui d [place] ([facility]) ascites fL color yellow colorless normal Ascites fL Color AT [place] ([facility]) WBC body fluid 149 /uL 0-10 Above high normal WBC Body Fluid [facility]) appearance, body fluid cloudy clear normal Appearance, B jamil Fluid [place] ([facility]) bf mononuclear cell % 97.3 % 0-0 Above high normal Bf [place] nuclear Cell % [place] ([facility]) RBC body fluid < 2 <2 normal RBC Body Fluid [place] ([facility]) bf polymorphonuclear cell % 2.7 % 0-0 Above high no rmal Bf Polymorphonuclear Cell % [facility]) ID Date Data Source [id number] 08/02/2020 12:40:00 PM EDT [place] ([facility]) Name Value Range Interpretation Code Description Data Julia rce(s) Supporting Document(s) source, body fluid albumin ascites normal Source, B jamil Fluid Albumin [place] ([facility]) albumin, body fluid 0.7 g/dL not established normal Albumin, Julien dy Fluid [place] ([facility]) ID Date Data Source [id number] 08/02/2020 12:40:00 PM EDT [place] ([facility]) Name Value Range Interpretation Code Description Data Julia rce(s) Supporting Document(s) total protein, body fluid 1.2 g/dL not established normal Total Protein, Body Fluid [place] ([facility]) source, body fluid tot protein ascites normal Sourc e, Body Fluid Tot Protein [facility]) ID Date Data Source [id number] 08/02/2020 12:40:00 PM EDT [place] ([facility]) Name Value Range Interpretation Code Description Data Julia rce(s) Supporting Document(s) source, body fluid ascites normal Source, Body Flui d [place] ([facility]) appearance, body fluid cloudy clear normal Appearance, B jamil Fluid [place] ([facility]) WBC body fluid 149 /uL 0-10 Above high normal WBC Body Fluid [place] ([facility]) ascites fL color yellow colorless normal Ascites fL Color AT [place] ([facility]) bf mononuclear cell % 97.3 % 0-0 Above high normal Bf [place] nuclear Cell % [place] ([facility]) bf polymorphonuclear cell % 2.7 % 0-0 Above high no rmal Bf Polymorphonuclear Cell % [place] ([facility]) RBC body fluid < 2 <2 normal RBC Body Fluid [facility]) ID Date Data Source [id number] 08/02/2020 12:40:00 PM EDT [facility]) Name Value Range Interpretation Code Description Data Julia rce(s) Supporting Document(s) source, body fluid albumin ascites normal Source, B jamil Fluid Albumin [place] ([facility]) albumin, body fluid 0.7 g/dL not established normal Albumin, Julien dy Fluid [place] ([facility]) ID Date Data Source [id number] 08/02/2020 12:40:00 PM EDT [place] ([facility]) Name Value Range Interpretation Code Description Data Julia rce(s) Supporting Document(s) source, body fluid tot protein ascites normal Sourc e, Body Fluid Tot Protein [place] ([facility]) total protein, body fluid 1.2 g/dL not established normal Total Protein, Body Fluid [place] ([facility]) ID Date Data Source [id number] 08/02/2020 12:40:00 PM EDT [place] ([facility]) Name Value Range Interpretation Code Description Data Julia rce(s) Supporting Document(s) appearance, body fluid cloudy clear normal Appearance, B jamil Fluid [place] ([facility]) WBC body fluid 149 /uL 0-10 Above high normal WBC Body Fluid [place] ([facility]) ascites fL color yellow colorless normal Ascites fL Color AT [facility] ([facility]) source, body fluid ascites normal Source, Body Flui d [place] ([facility]) bf mononuclear cell % 97.3 % 0-0 Above high normal Bf [place] nuclear Cell % [place] [facility]) RBC body fluid < 2 <2 normal RBC Body Fluid [place] ([facility]) bf polymorphonuclear cell % 2.7 % 0-0 Above high no rmal Bf Polymorphonuclear Cell % [place] ([facility]) ID Date Data Source [id number] 08/02/2020 08:27:00 AM EDT [place] ([facility]) Name Value Range Interpretation Code Description Data Julia rce(s) Supporting Document(s) albumin 25% transfused product: albumin 25% count: 4 Albumin 25% [place] ([facility]) ID Date Data Source [id number] 08/02/2020 08:27:00 AM EDT [place] ([facility]) Name Value Range Interpretation Code Description Data Julia rce(s) Supporting Document(s) albumin 25% transfused product: albumin 25% count: 4 Albumin 25% [place] ([facility]) ID Date Data Source [id number] 08/02/2020 08:27:00 AM EDT [place] ([facility]) Name Value Range Interpretation Code Description Data Julia rce(s) Supporting Document(s) albumin 25% transfused product: albumin 25% count: 4 Albumin 25% [place] ([facility]) ID Date Data Source [id number] 08/02/2020 08:27:00 AM EDT [place] ([facility]) Name Value Range Interpretation Code Description Data Julia rce(s) Supporting Document(s) albumin 25% transfused product: albumin 25% count: 4 Albumin 25% [place] ([facility]) ID Date Data Source [id number] 06/28/2020 11:28:00 AM EDT [facility] Name Value Range Interpretation Code Description Data Julia rce(s) Supporting Document(s) HCT 32.4 % 36.0-47.0 L [facility] HGB 11.5 g/dL 12.0-15.5 L [facility] MCH 35.5 G/DL pg 32.0-36.5 N [facility] MCHC 35.1 PG % 27.0-33.0 H [facility] PLATELETS 137 10 10*3/mm3 150-450 L [facility] RBC 3.28 10 10*6/mm3 4.00-5.40 L [facility] RDW 16.4 % 11.5-14.5 H [facility] WBC TOTAL 7.2 4.0-10.0 N [facility] ID Date Data Source [id number] 06/28/2020 11:28:00 AM EDT [facility] Name Value Range Interpretation Code Description Data Julia rce(s) Supporting Document(s) BG FASTING 104 mg/dL 70-100 H [facility] ID Date Data Source [id number] 06/11/2020 09:54:18 AM EDT [facility] Measurements & CalculationsHeight: 61 inches (5 ft. 1 in.) 154.94 cm Weight: 164.2 pounds 74.64 kg Body Mass Index (BMI): 31.14BMI Interpretation: ObeseBody Surface Area (BSA): 1.74Weight Management Education Done (Nutrition/Physical Activity)Vital SignsTemperature: 98.2F 36.78C tympanic Pulse Rate: 94 beats/minuteRespiratory Rate: 18 respirations/minuteBlood Pressure: 108/71 left arm sitting automaticO2 Saturation: 99% Vital Signs performed by: Desi Urban LPN, June 11, 2020 9:56 AMInitial Intake Information From: patientRoom #: 1Infectious Disease / Travel ScreeningRecent travel for you or any close contacts? NoHave you had any close contact with anyone diagnosed with or under investigation for COVID-19 (coronavirus)? NoFever? NoRespiratory symptoms: cough, cold, congestion, shortness of breath, difficulty breathing? NoLoss of smell? NoLoss of taste? NoSmoking, Tobacco, Vaping or Smoke Exposure StatusSmoke Status: current every day smokerTobacco Use: YesAdv to Quit: YesDo you vape? NoPassive Smoke Exposure: YesMenstrual HistoryAny possibility of ? NoComments: menopauseHealthcare HistorySince your last office visit...Have you been admitted to the hospital? NoHave you been to an emergency room (ER) or urgent care clinic? NoHave you seen another healthcare provider? YesHave you seen a dentist? NoIntake performed by: Desi Urban LPN, June 11, 2020 9:56 AMRate Your HealthIn general, would you say your health is? GoodPain AssessmentAre you currently having any pain which... You would like your provider to address? Yes Affects your activity level? YesDepression Screening - PHQ-2Over the last two weeks, have you... Had little interest or pleasure in doing things? Several days Been feeling down, depressed, or hopeless? Several days PHQ-2 Score: 2Anxiety Screening - LEILA-2Over the last two weeks, have you been... Feeling nervous, anxious, or on edge? Several days Unable to stop or control worrying? Several days LEILA-2 Score: 2Food InsecurityWithin the past year...Did you worry whether your food would run out before you got money to buy more? Never trueWas there a time when the food you bought didn't last and you didn't have money to get more? Never trueGeneralized Anxiety Disorder 7-Item Screening (LEILA-7)Answer Guide:0 = Not at all1 = Several days2 = Over half the days3 = Nearly every dayOver the last 2 weeks, how often have you been bothered by the following problems?Feeling nervous, anxious, or on edge: 1Not being able to stop or control worryinWorrying too much about different things: 1Trouble relaxinBeing so restless that it's hard to sit still: 1Becoming easily annoyed or irritable: 1Feeling afraid as if something awful might happen: 1Answer Guide:0 = Not difficult at all1 = Somewhat difficult2 = Very difficult3 = Extremely difficultHow difficult have these made it for you to do your work, take care of things at home, or get along with other people? 1GAD-7 Screening Results LEILA-2 Score: 2GAD-7 Score: 7Functional Impairment: Somewhat difficultRecommendation: Mild anxietyPHQ-9 1. Over the last 2 weeks, patient reports the following frequency of symptoms: a. Little interest or pleasure in doing things -Several days b. Feeling down, depressed, or hopeless -Several days c. Trouble falling asleep, staying asleep, or sleeping too much - Several days d. Feeling tired or having little energy -Several days e. Poor appetite or overeating -Several days f. Feeling bad about yourself, feeling that you are a failure, or feeling that you have let yourself or your family down -Several days g. Trouble concentrating on things such as reading the newspaper or watching television -Several days h. Moving or speaking so slowly that other people could have noticed. Or being so fidgety or restless that you have been moving around a lot more than usual -Several days i. Thinking that you would be better off or that you want to hurt yourself in some way -Not at all2. If you checked off any problems, how difficult have these problems made it for you to do your work, take care of things at home, or get along with other people? -Somewhat DifficultToday's PHQ-9 Results Score: 8 Severity: Mild Diagnosis Recommendation: No recommendation Functional Impairment: Somewhat DifficultToday's Follow-Up Action Depression follow-up done. Follow-Up Action: Continue To Take Medications as PrescribedPain AssessmentLocation: left kneeDuration: chronicFrequency: DailyPRAPARE Sociodemographic Characteristics Race: White Ethnicity: Not or Preferred Language: EnglishFamily and Home Address: [address] [place] [address] What is your housing situation today? I have housing Are you worried about losing your housing? NoMoney and Resources In the past year, have you or any family members you live with been unable to get any of the following when it was really needed? Denies Insecurity: food, utilities, clothing, child care centre manager, phone, legal services, otherWithin the past year did you worry whether your food would run out before you got money to buy more? Never trueWithin the past year was there a time when the food you bought didn't last and you didn't have money to get more? Never trueIn the past year, have you had trouble affording costs associated with health insurance (such as deductibles, co-payments, etc.)? NoScreening, Brief Intervention, & Referral to Treatment (SBIRT)Pre-Screening Questions How many times have you have 4 or more drinks in a day? 0How many times have you used an illegal drug or used a prescription medication for a non-medical reason? 0Performed by: Desi Urban LPN, June 11, 2020 9:58 AMPatient History Medical History:acute decompensated liver failure 2019alcohol dependence in remission 2020bipolar disordercirrhosis with ascites-Dr. Huerta dependence Surgical History: sectiontuballump removed from left breastpolyp removed from vocal cordsFamily History:Sudden cardiac (Father)Social/Personal History: Advised to Quit/Tobacco Education: YesChief Complaintannual examHistory of Present Illness (HPI)Pt is a 60 y/o female, presents for annual PE.Continues to follow with GI, having weekly paracentesis. Pt is struggling to follow her 1Liter fluid restriction, states she constantly feels thirsty despite trying the tips of using ice chips and frozen grapes. Pt feels muscles and joints are bothering her. Last mammogram was years ago. No pap in at least 10 years. But she is not interested at this time, would like to wait until her GI issues are more stablilized. Transitions of Care InboundProblem ReviewProblem List was reviewed and/or updated during this visit.Medication Reconciliation & ReviewMedication List was reviewed and/or updated during this visit, including review of any [id number] medications, herbal therapies, and/or supplements.Allergy ReviewAllergy List was reviewed and/or updated during this visit.Adult Preventive CareScreening Tobacco Screening: Smoking Status: current every day smoker (06/11/2020) Tobacco Use: Currently (06/11/2020) Advised to Quit: Yes (06/11/2020)Labs/Meds/Other Counseling-Nutrition and Physical Activity:BMI Interpretation: Obese (06/11/2020) Counseling: Done (06/11/2020) Physical Activity: Done (06/11/2020)Review of Systems General: Denies loss of appetite, dizziness, fatigue, fever, headache, feeling ill. Eyes: Denies blurring of vision, double vision. Ears/Nose/Throat: Denies earache, nasal congestion, sore throat. Cardiovascular: Denies chest pain, palpitations, feeling faint, peripheral edema. Respiratory: Denies cough, difficulty breathing, shortness of breath, wheezing. Breast: Denies discoloration, tenderness, breast changes, breast lump. Gastrointestinal: Complains of see HPI. Denies nausea, vomiting, diarrhea, pain or discomfort. Genitourinary: Denies pain with urination, burning with urination, blood in urine. Musculoskeletal: Complains of joint pain, muscle aches, stiffness. Denies recent injury. Skin: Denies rash, redness. Neurologic: Denies weakness, numbness/tingling, slurred speech, feeling faint. Psychiatric: Complains of depression, anxiety. Complains of depression, anxiety. but refuses further treatmentPhysical ExamGeneral Appearance: well nourished, well hydrated, no acute distress, femaleEyes, External: conjunctivae and lids normal, EOMIExternal Ears: normal, no lesions or deformitiesHearing: grossly intactOtoscopy: canals clear, tympanic membranes intact, no fluid, light reflex intact bilaterallyExternal Nose: normal, no lesions or deformitiesNasal: mucosa, septum, and turbinates normal, nares patentLips/Teeth/Gums: no gingival inflammation, no labial lesionsPharynx: tongue normal, posterior pharynx without erythema or exudate, no thrush/aphthous ulcerNeck: supple, no masses, trachea midline, full range of motion of neckThyroid: no nodules, masses, tenderness, or enlargementRespiratory, Auscultation: clear to auscultation bilaterally; no rales, rhonchi, or wheezesRespiratory, Effort: no intercostal retractions or use of accessory musclesCardiovascular, Auscultation: S1, S2 audible; no murmur, rub, or gallop; RRRPeripheral Circulation: no clubbing, cyanosis, edema, or varicositiesAbdomen: distended but soft ascites, unable to palpate internal organs well, no rebound or guardingGait & Station: normalSkin, Inspection: no rashes, lesions, or ulcerationsOrientation: oriented to time, place, and personMood & Affect: moderately anxious appearing, good eye contact, speech clearJudgment & Insight: intactCare Management Plan Transitions of CareInboundRate Your HealthIn general, would you say your health is? GoodAssessment & Plan Problems:Added: Encounter for general adult medical examination with abnormal findings (ICD-V70.0) (SPL89-L53.01) Assessment: Instructions: Recommend annual medical appointments. Recommend routine dental and vision care. Recommend influenza vaccines annually and tetanus boosters every 10 years. Please call when you are ready to schedule mammogram and pap smear.Assessed:Alcoholic cirrhosis of liver with ascites (ICD-571.2) (ICD10- K70.31) Assessment: Instructions: Continue per GI.Edema of lower extremity (ICD-782.3) (YAS63-M74.0) Assessment: Instructions: Stable with current medications. 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) (BAO16-G60.11) Assessment: Instructions: Continue remaining sober.Insomnia, unspecified (RYR81-Y80.00) Assessment: Instructions: Stable with hydroxyzine 2 tablets at bedtime.Assessment not SavedEncounter for immunization (VLP23-B88): Patient Instructions/Care Plan: Encounter for general adult medical examination with abnormal findings: Recommend annual medical appointments. Recommend routine dental and vision care. Recommend influenza vaccines annually and tetanus boosters every 10 years. Please call when you are ready to schedule mammogram and pap smear.Alcoholic cirrhosis of liver with ascites: Continue per GI.Edema of lower extremity: Stable with current medications. Please try to follow your fluid restriction as best as you can.Alcohol abuse- in remission: Continue remaining sober.Insomnia- unspecified: Stable with hydroxyzine 2 tablets at bedtime. Plan developed in collaboration with patient and/or familyMedications:HYDROXYZINE HCL 25 MG ORAL TABLETCIPROFLOXACIN HCL 500 MG ORAL TABLETGABAPENTIN 300 MG ORAL CAPSULESHINGRIX 50 MCG/0.5ML INTRAMUSCULAR SUSPENSION RECONSTITUTEDPANTOPRAZOLE SODIUM 40 MG ORAL TABLET DELAYED RELEASETHIAMINE HCL 100 MG ORAL TABLETFOLIC ACID 1 MG ORAL TABLETLACTULOSE 10 GM/15ML ORAL SOLUTIONFUROSEMIDE 40 MG ORAL TABLETSPIRONOLACTONE 50 MG ORAL TABLETMedication Changes:Added: GABAPENTIN 300 MG ORAL CAPSULE-one tab at bedtime for 1 week then increase to twice a day.CIPROFLOXACIN HCL 500 MG ORAL TABLET-1 tab by mouth every dayHYDROXYZINE HCL 25 MG ORAL TABLET-Take 2 tabs po qhsAllergies:RAMELTEON (RAMELTEON) (Severe)Orders:Preventive, Est, ([id number]) [CPT- 72506] Follow-Up Return to clinic: in 3 months for follow upAdditional Follow- Up: cirrhosisClinical Visit Summary Declined Name Value Range Interpretation Code Description Data Julia rce(s) Supporting Document(s) ID Date Data Source [id number] 05/10/2020 09:33:44 AM EDT [facility] Measurements & CalculationsHeight: 61 inches (5 ft. 1 in.) 154.94 cm Weight: 162 pounds 4 oz. 73.75 kg Body Mass Index (BMI): 30.77BMI Interpretation: ObeseBody Surface Area (BSA): 1.73Weight Management Education Done (Nutrition/Physical Activity)Vital SignsTemperature: 97.3F 36.28C tympanic Pulse Rate: 86 beats/minut eRespiratory Rate: 18 respirations/minuteBlood Pressure: 101/70 right arm sitting automaticO2 Saturation: 96% Vital Signs performed by: Desi Urban LPN, May 10, 2020 9:38 AMInitial Intake Information From: patientRoom #: 2Infectious Disease / Travel ScreeningRecent travel for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 reports significant itching that comes and goes on her legs and abdomen especially. No rash or skin lesions. Pt reports significant anxiety, states she is not sleeping longer then 45-1 hr. Reports she is adjusting to her new medical issues and recent move. HPI performed by: Joe SALCEDO, April 09, 2020 10:05 AMTransitions of Care InboundProblem ReviewProblem List was reviewed and/or updated during this visit.Medication Reconciliation & ReviewMedication List was reviewed and/or updated during this visit, including review of any micu-[id number] medications, herbal therapies, and/or supplements.Allergy ReviewAllergy List was reviewed and/or updated during this visit. Patient has no known allergies.Adult Preventive CareProvider Calculated and Reviewed all Clinical Protocols for patient today. Labs/Meds/Other Counseling-Nutrition and Physical Activity:BMI Interpretation: Obese (04/09/2020) Counseling: Done (04/09/2020) Physical Activity: Done (04/09/2020)Cancer Screening Mammogram Reviewed: Today's Comments: haven't had onePap Smear/HPV TestingReviewed: Today's Comments: pap smear -ColonoscopyReviewed:Today's Comments: colonscopyReview of Systems General: Denies loss of appetite, chills, dizziness, fatigue, fever, feeling ill. Cardiovascular: Complains of peripheral edema. Denies chest pain, palpitations, feeling faint, trouble breathing w/exertion, SOB upon lying down. Respiratory: Denies cough, difficulty breathing, shortness of breath. Gastrointestinal: Denies nausea, vomiting, diarrhea, constipation, pain or di scomfort, jaundice. Skin: Complains of itching. Denies rash, hives, redness, suspicious lesions. Neurologic: Denies weakness, feeling faint. Psychiatric: Complains of depression, anxiety, feeling stressed. Physical ExamGeneral Appearance: well nourished, well hydrated, no acute distress, female, appears uncomfortable due to ascitesEyes, External: conjunctivae and lids normal, EOMIRespiratory, Auscultation: clear to auscultation bilaterally; no rales, rhonchi, or wheezesRespiratory, Effort: no intercostal retractions or use of accessory musclesCardiovascular, Auscultation: S1, S2 audible; no murmur, rub, or gallop; RRRPeripheral Circulation: 2+ pitting edema of lower extremities to the kneeAbdomen: distended but soft ascites, unable to palpate internal organs well, no rebound or guardingGait & Station: normalSkin, Inspection: no rashes, lesions, or ulcerationsOrientation: oriented to time, place, and personMood & Affect: moderately anxious appearing, good eye contact, speech clearJudgment & Insight: intactCare Management Plan Transitions of CareInboundRate Your HealthIn general, would you say your health is? GoodAssessment & Plan Problems:Added: Insomnia, unspecified (ABC10-X75.00) Assessment: Instructions: Monitor. Significant life adjustments with becoming sober, identifying health concerns, and moving to this area. Keep your good social supports and open lines of communication. Call us with any concerns.Assessed:Alcoholic cirrhosis of liver with ascites (ICD-571.2) (ICD10- K70.31) Assessment: Instructions: Follow-up as scheduled this week with GI to discuss further care and possible repeated paracentesis. Continue current medications.Alcohol abuse, in remission (ICD-305.03) (ZEY86-U91.11) Assessment: Instructions: Continue remaining sober.Patient Instructions/Care Plan: Alcoholic cirrhosis of liver with ascites: Follow-up as scheduled this week with GI to discuss further care and possible repeated paracentesis. Continue current medications.Alcohol abuse- in remission: Continue remaining sober.Insomnia- unspecified: Monitor. Significant life adjustments with becoming sober, identifying health concerns, and moving to this area. Keep your good social supports and open lines of communication. Call us with any concerns. Plan developed in collaboration with patient and/or familyMedications:THIAMINE HCL 100 MG ORAL TABLETFOLIC ACID 1 MG ORAL TABLETLACTULOSE SOLUTIONFUROSEMIDE 40 MG ORAL TABLETSPIRONOLACTONE 50 MG ORAL TABLETMedication Changes:Removed:MUPIROCIN OINTMENT-bid, KLOR-CON M20 20 MEQ ORAL TABLET EXTENDED RELEASE-Take 1 tablet po daily, MAG64 TABLET DELAYED RELEASE-po bidChanged:From: ORAL SPIRONOLACTONE 25 MG ORAL TABLET Qty: [id number] To: SPIRONOLACTONE 50 MG ORAL TABLET-Take 2 tablets po dailyFrom: ORAL LASIX 20 MG ORAL TABLET Qty: [id number] To: FUROSEMIDE 40 MG ORAL TABLET-take 1 tablet po BIDAllergies:No Known Allergies (updated 04/09/2020) Orders:Adult - Ofc Vst, EST, Level III [CPT-04487] Follow-Up Return to clinic: in 2 weeks for follow upClinical Visit Summary Declined Name Value Range Interpretation Code Description Data Julia rce(s) Supporting Document(s) ID Date Data Source [id number] 04/05/2020 08:41:00 AM EDT [facility] Name Value Range Interpretation Code Description Data Julia rce(s) Supporting Document(s) HCT 36.8 % 36.0-47.0 [facility] HGB 13.1 g/dL 12.0-15.5 N [facility] MCH 35.6 G/DL pg 32.0-36.5 [facility] MCHC 36.0 PG % 27.0-33.0 H [facility] PLATELETS 121 10 10*3/mm3 150-450 L [facility] RBC 3.64 10 10*6/mm3 4.00-5.40 L [facility] RDW 14.7 % 11.5-14.5 H [facility] WBC TOTAL 7.7 4.0-10.0 [facility] ID Date Data Source [id number] 04/05/2020 08:41:00 AM EDT [facility] Name Value Range Interpretation Code Description Data Julia rce(s) Supporting Document(s) BG FASTING 98 mg/dL 70-100 [facility] ID Date Data Source [id number] 03/27/2020 01:05:02 PM EDT [facility] Measurements & CalculationsHeight: 61 inches (5 ft. 1 in.) 154.94 cm Weight: 205 pounds 6 oz. 93.35 kg Body Mass Index (BMI): 38.95BMI Interpretation: ObeseBody Surface Area (BSA): 1.91Weight Management Education Done (Nutrition/Physical Activity)Vital SignsTemperature: 97.5F tympanic Pulse Rate: 119 beats/minuteResp iratory Rate: 18 respirations/minuteBlood Pressure: 131/80 right arm sitting automaticO2 Saturation: 97% room airVital Signs performed by: Ana Kumar LPN, March 27, 2020 1:25 PMInitial Intake Information From: patientRoom #: 2Infectious Disease / Travel ScreeningRecent travel for you or any close contacts? NoHave you had any close contact with anyone diagnosed with or under investigation for COVID-19 (coronavirus)? NoFever? NoRespiratory symptoms: cough, cold, congestion, shortness of breath, difficulty breathing? NoLoss of smell? NoLoss of taste? NoSmoking, Tobacco, Vaping or Smoke Exposure StatusSmoke Status: current every day smokerTobacco Use: YesAdv to Quit: YesDo you vape? NoMenstrual HistoryAge at Menopause: 42Healthcare HistorySince your last office visit...Have you [facility]? [facility] admission date reported today: 03/22/2020Have you been to an emergency room (ER) or urgent care clinic? NoHave you seen another healthcare provider? NoHave you seen a dentist? NoRate Your HealthIn general, would you say your health is? PoorPain AssessmentAre you currently having any pain which... You would like your provider to address? No Affects your activity level? NoDepression Screening - PHQ-2Over the last two weeks, have you... Had little interest or pleasure in doing things? Not at all Been feeling down, depressed, or hopeless? Not at all PHQ-2 Score: 0Anxiety Screening - LEILA-2Over the last two weeks, have you been... Feeling nervous, anxious, or on edge? Not at all Unable to stop or control worrying? Not at all LEILA-2 Score: 0Screening, Brief Intervention, & Referral to Treatment (SBIRT)Pre-Screening Questions How many times have you have 4 or more drinks in a day? 365How many times have you used an illegal drug or used a prescription medication for a non-medical reason? 0Performed by: Ana Kumar LPN, March 27, 2020 1:14 PMPatient History Medical History:acute decompensated liver failuretense ascitesalcohol dependencebipolar disordercirrhotic appearing livertobacco dependence Surgical History: sectiontuballump removed from left breatspolyp removed from vocal cordsFamily History:Sudden cardiac (Father)Social/Personal History: Advised to Quit/Tobacco Education: YesAlcohol Use: PreviouslyYear Quit: 03/17/2020Comments: vodkaAlcohol Education: givenDrug Use: PreviouslyChief Complaintedema and liver cirrhosisHistory of Present Illness (HPI)60 yo female here for follow up for HD for liver failure due to alcohol dependence. Pt is concern with amount of water retention in her abdomen and legs. Last drink was 10 days ago.Pt states this began a few months ago with acute on chronic knee pain. She was given 800mg ibuprofen TID for pain by an urgent care in [place], then over the next few weeks noted abdominal distention. She then went to another urgent care in [place] and was given a fluid pill and another unknown medication. A few weeks went by without i mprovement, so she went to [facility] [facility]. [place] the provider was rude so she left without testing. Then she moved from [facility] to [facility]. She was seen by [facility] outpatient, then was referred to [facility] but she waited a few days. Self presented to [facility] 03/17/2020, then was transferred to [facility] due to ascites. She was admitted to [facility] 03/17/2020-03/22/2020. Pt states she had 7 liters of ascites drained while inpatient. Weighed around 195 at hospital discharge, 205 today. Feels worsening abdominal distention and lower extremity swellling despite taking discharge medications as prescribed. Reports leaking fluid from abdomen where she had the ascites drained inpatient. She also had a staph infection on right foot, discharged with Keflex, regimen complete and feels the infection is infection. HPI performed by: Joe SALCEDO, March 27, 2020 1:42 PMTransitions of Care InboundProblem ReviewProblem List was reviewed and/or updated during this visit.Medication Reconciliation & ReviewMedication List was reviewed and/or updated during this visit, including review of any jnqz-txy-qichhyr medications, herbal therapies, and/or supplements.Allergy ReviewAllergy List was reviewed and/or updated during this visit. Patient has no known allergies.Adult Preventive CareProvider Calculated and Reviewed all Clinical Protocols for patient today. Screening Tobacco Screening: Smoking Status: current every day smoker (03/27/2020) Tobacco Use: Currently (03/27/2020) Advised to Quit: Yes (03/27/2020)Labs/Meds/Other Counseling- Nutrition and Physical Activity:BMI Interpretation: Obese (03/27/2020) Counseling: Done (03/27/2020) Physical Activity: Done (03/27/2020)Review of Systems General: Denies chills, dizziness, fatigue, fever, headache, feeling ill. Cardiovascular: Complains of trouble breathing w/exertion, SOB upon lying down, peripheral edema. Denies chest pain, palpitations, feeling faint. Respiratory: Complains of shortness of breath. Denies cough, excessive sputum, wheezing. Gastrointestinal: Complains of see HPI, pain or discomfort. Denies nausea, vomiting, diarrhea, blood in stool, black or tarry stools, jaundice, heartburn. 2-3 soft stools daily since starting lactuloseSkin: Denies rash, redness, suspicious lesions. Neurologic: Denies weakness, feeling faint. Physical ExamGeneral Appearance: well nourished, well hydrated, no acute distress, female, appears uncomfortable due to ascitesEyes, External: conjunctivae and lids normal, EOMIRespiratory, Auscultation: clear to auscultation bilaterally; no rales, rhonchi, or wheezesRespiratory, Effort: no intercostal retractions or use of accessory musclesCardiovascular, Auscultation: S1, S2 audible; no murmur, rub, or gallop; RRRPeripheral Circulation: 2-3+ pitting edema of lower extremities to the kneeAbdomen: severely distended, somewhat rigid due to severe ascites, unable to palpate internal organs well, no rebound or guarding, pinpoint area on right abdomen with clear fluid drainingGait & Station: normalSkin, Inspection: no rashes, lesions, or ulcerationsOrientation: oriented to time, place, and personMood & Affect: moderately anxious appearing, good eye contact, speech clearJudgment & Insight: intactCare Management Plan Transitions of CareInboundRate Your HealthIn general, would you say your health is? PoorAssessment & Plan Problems:Added: Tobacco user (ICD-305.1) (XVH12-A11.200)Alcoholic cirrhosis of liver with ascites (ICD- 571.2) (CUP74-I84.31) Assessment: Instructions: Severe ascites today despite medications. Recommend emergency room evaluation today, patient declines but agrees to report to [facility] ER by 0600 03/28/2020. Advised waiting was not the safest recommendation. Please call an ambulance for ANY change or worsening in symptoms.Edema of lower extremity (ICD-782.3) (LTR82-D94.0) Assessment: Instructions: Secondary to above. No medication adjustments due to immediate need for ER evalation with labs and further treatment.Alcohol abuse, in remission (ICD-305.03) (VIX49-V47.11) Assessment: Instructions: Will need outpatient treatment, after her medical conditions are more stabilized.Patient Instructions/Care Plan: Alcoholic cirrhosis of liver with ascites: Severe ascites today despite medications. Recommend emergency room evaluation today, patient declines but agrees to report to [facility] ER by 0600 03/28/2020. Advised waiting was not the safest recommendation. Please call an ambulance for ANY change or worsening in symptoms.Edema of lower extremity: Secondary to above. No medication adjustments due to immediate need for ER evalation with labs and further treatment.Alcohol abuse- in remission: Will need outpatient treatment, after her medical conditions are more stabilized.-------- --Plan developed in collaboration with patient and/or familyMedications:THIAMINE HCL 100 MG ORAL TABLETFOLIC ACID 1 MG ORAL TABLETKLOR-CON M20 20 MEQ ORAL TABLET EXTENDED RELEASELACTULOSE [id number] TABLET DELAYED RELEASELASIX 20 MG ORAL TABLETSPIRONOLACTONE 25 MG ORAL TABLETMUPIROCIN OINTMENTMedication Changes:Added: MUPIROCIN OINTMENT-bidSPIRONOLACTONE 25 MG ORAL TABLET-po dailyLASIX 20 MG ORAL TABLET-po [id number] TABLET DELAYED RELEASE-po bidLACTULOSE SOLUTION-30 ml po bidKLOR-CON M20 20 MEQ ORAL TABLET EXTENDED RELEASE-Take 1 tablet po dailyFOLIC ACID 1 MG ORAL TABLET-po dailyTHIAMINE HCL 100 MG ORAL TABLET-po dailyAllergies:No Known Allergies (updated 03/27/2020) Orders:Adult - Ofc Vst, EST, Level IV [[id number]] Follow-Up Return to clinic: as needed for follow upAdditional Follow-Up: ER follow-upClinical Visit Summary Completed Name Value Range Interpretation Code Description Data Julia rce(s) Supporting Document(s) ID Date Data Source [id number] 03/22/2020 05:54:00 AM EDT [facility] Name Value Range Interpretation Code Description Data Julia rce(s) Supporting Document(s) Sodium 135 mmol/L 137-145 Below low normal [facility] Potassium 3.5-5.1 Normal (applies to non-numeric resul ts) [facility] Chloride 102 mmol/L 98-112 Normal (applies to non-numeric resul ts) [facility] Carbon Dioxide CO2 22.0-33.0 Normal (applies to non-numer ic results) [facility] Anion Gap 4.0-11.0 Normal (applies to non-numeric resul ts) [facility] BUN 9 mg/dL 7-17 Normal (applies to non-numeric resul ts) [facility] Creatinine 0.70-1.20 Below low normal [facility] GFR >60 Normal (applies to non-numeric results) [facility] Result based on MDRD formula. Glucose Level 86 mg/dL 74-99 Normal (applies to non-numeric re sults) [facility] The reference range is only applicable w hen fasting. Calcium-Uncorrected 8.4-10.2 Below low normal [facility] Corrected Calcium 8.4-10.2 Normal (applies to non-numeri c results) [facility] Bilirubin,Total 0.2-1.3 Above high normal [facility] SGOT(AST) 91 U/L 14-36 Above high normal [facility] SGPT(ALT) 32 U/L 9-52 Normal (applies to non-numeric resul ts) [facility] Alkaline Phosphatase 120 U/L 38-126 Normal (applies to non-num reynaldo results) [facility] can increase Alkaline Phosp le vels up to 2 times the normal adult value. Normal values for children and adolescents are 2 to 3 times the normal adult value. Total Protein 6.3-8.2 Normal (applies to non-numeric re sults) [facility] Albumin 3.5-5.0 Below low normal [facility] Hospital ID Date Data Source [id number] 03/22/2020 05:54:00 AM EDT [facility] Name Value Range Interpretation Code Description Data Julia rce(s) Supporting Document(s) Bilirubin,Direct 0.0-0.3 Above high normal [facility] ID Date Data Source [id number] 03/22/2020 05:22:00 AM EDT [facility] Name Value Range Interpretation Code Description Data Julia rce(s) Supporting Document(s) White Blood Count 4.8-10.8 Normal (applies to non-numeri c results) [facility] Red Blood Count 3.68-5.22 Below low normal [facility] Hemoglobin 11.2-15.7 Normal (applies to non-numeric resul ts) [facility] Hematocrit 34.1-44.9 Normal (applies to non-numeric resul ts) [facility] Mean Corpuscular Volume 81-99 Above high normal [facility] Mean Corpuscular Hemoglobin 27.0-33.0 Above high normal [facility] Mean Corpuscular HGB Conc 32.0-36.0 Normal (applies to no n-numeric results) [facility] Red Cell Distribution Width 11.5-14.5 Above high normal [facility] Platelet Count 99 X10 3/uL 130-450 Below low normal [facility] Mean Platelet Volume 9.5-12.7 Normal (applies to non-num reynaldo results) [facility] Imm Grans% (AUTO) 0 % 0-2 Normal (applies to non-numeri c results) [facility] Neutrophils % (AUTO) 64 % 40-75 Normal (applies to non-num reynaldo results) [facility] Lymphocytes % (AUTO) 19 % 21-46 Below low normal [facility] Monocytes % (AUTO) 14 % 5-12 Above high normal [facility] Eosinophils % (AUTO) 3 % 1-5 Normal (applies to non-num reynaldo results) [facility] Basophils % (AUTO) 1 % 0-1 Normal (applies to non-numer ic results) [facility] Imm Grans# (AUTO) 0.0-0.5 Normal (applies to non-numeri c results) [facility] Neutrophils # (AUTO) 1.5-8.1 Normal (applies to non-num reynaldo results) [facility] Lymphocytes # (AUTO) 1.0-3.1 Normal (applies to non-num reynaldo results) [facility] Monocytes # (AUTO) 0.2-1.3 Normal (applies to non-numer ic results) [facility] Eosinophils# (AUTO) 0.0-0.5 Normal (applies to non-nume zora results) [facility] Basophils # (AUTO) 0.0-0.1 Normal (applies to non-numer ic results) [facility] ID Date Data Source [id number] 03/21/2020 10:18:00 AM EDT [facility] Name Value Range Interpretation Code Description Data Julia rce(s) Supporting Document(s) Sodium 134 mmol/L 137-145 Below low normal [facility] Potassium 3.5-5.1 Normal (applies to non-numeric resul ts) [facility] Chloride 101 mmol/L 98-112 Normal (applies to non-numeric resul ts) [facility] Carbon Dioxide CO2 22.0-33.0 Normal (applies to non-numer ic results) [facility] Anion Gap 4.0-11.0 Below low normal [facility] BUN 9 mg/dL 7-17 Normal (applies to non-numeric resul ts) [facility] Creatinine 0.70-1.20 Below low normal [facility] GFR >60 Normal (applies to non-numeric results) [facility] Result based on MDRD formula. Glucose Level 92 mg/dL 74-99 Normal (applies to non-numeric re sults) [facility] The reference range is only applicable w hen fasting. Calcium-Uncorrected 8.4-10.2 Below low normal [facility] Corrected Calcium 8.4-10.2 Normal (applies to non-numeri c results) [facility] Bilirubin,Total 0.2-1.3 Above high normal [facility] SGOT(AST) 78 U/L 14-36 Above high normal [facility] SGPT(ALT) 24 U/L 9-52 Normal (applies to non-numeric resul ts) [facility] Alkaline Phosphatase 108 U/L 38-126 Normal (applies to non-num reynaldo results) [facility] can increase Alkaline Phosp le vels up to 2 times the normal adult value. Normal values for children and adolescents are 2 to 3 times the normal adult value. Total Protein 6.3-8.2 Below low normal [facility] Albumin 3.5-5.0 Below low normal [facility] ID Date Data Source [id number] 03/21/2020 10:18:00 AM EDT [facility] Name Value Range Interpretation Code Description Data Julia rce(s) Supporting Document(s) Bilirubin,Direct 0.0-0.3 Above high normal [facility] ID Date Data Source [id number] 03/21/2020 09:37:00 AM EDT [facility] Name Value Range Interpretation Code Description Data Julia rce(s) Supporting Document(s) White Blood Count 4.8-10.8 Normal (applies to non-numeri c results) [facility] Red Blood Count 3.68-5.22 Below low normal [facility] Hemoglobin 11.2-15.7 Normal (applies to non-numeric resul ts) [facility] Hematocrit 34.1-44.9 Below low normal [facility] Mean Corpuscular Volume 81-99 Above high normal [facility] Mean Corpuscular Hemoglobin 27.0-33.0 Above high normal [facility] Mean Corpuscular HGB Conc 32.0-36.0 Normal (applies to no n-numeric results) [facility] Red Cell Distribution Width 11.5-14.5 Above high normal [facility] Platelet Count 94 X10 3/uL 130-450 Below low normal [facility] Mean Platelet Volume 9.5-12.7 Normal (applies to non-num reynaldo results) [facility] Imm Grans% (AUTO) 1 % 0-2 Normal (applies to non-numeri c results) [facility] Neutrophils % (AUTO) 66 % 40-75 Normal (applies to non-num reynaldo results) [facility] Lymphocytes % (AUTO) 16 % 21-46 Below low normal [facility] Monocytes % (AUTO) 15 % 5-12 Above high normal [facility] Eosinophils % (AUTO) 2 % 1-5 Normal (applies to non-num reynaldo results) [facility] Basophils % (AUTO) 1 % 0-1 Normal (applies to non-numer ic results) [facility] Imm Grans# (AUTO) 0.0-0.5 Normal (applies to non-numeri c results) [facility] Neutrophils # (AUTO) 1.5-8.1 Normal (applies to non-num reynaldo results) [facility] Lymphocytes # (AUTO) 1.0-3.1 Normal (applies to non-num reynaldo results) [facility] Monocytes # (AUTO) 0.2-1.3 Normal (applies to non-numer ic results) [facility] Eosinophils# (AUTO) 0.0-0.5 Normal (applies to non-nume zora results) [facility] Basophils # (AUTO) 0.0-0.1 Normal (applies to non-numer ic results) [facility] ID Date Data Source [id number] 03/20/2020 09:34:00 AM EDT [facility] Name Value Range Interpretation Code Description Data Julia rce(s) Supporting Document(s) Sodium 137 mmol/L 137-145 Normal (applies to non-numeric resul ts) [facility] Potassium 3.5-5.1 Normal (applies to non-numeric resul ts) [facility] Chloride 103 mmol/L 98-112 Normal (applies to non-numeric resul ts) [facility] Carbon Dioxide CO2 22.0-33.0 Normal (applies to non-numer ic results) [facility] Anion Gap 4.0-11.0 Normal (applies to non-numeric resul ts) [facility] BUN 10 mg/dL 7-17 Normal (applies to non-numeric resul ts) [facility] Creatinine 0.70-1.20 Below low normal [facility] GFR >60 Normal (applies to non-numeric results) [facility] Result based on MDRD formula. Glucose Level 110 mg/dL 74-99 Above high normal [facility] The reference range is only applicable w hen fasting. Calcium-Uncorrected 8.4-10.2 Below low normal [facility] Corrected Calcium 8.4-10.2 Normal (applies to non-numeri c results) [facility] Bilirubin,Total 0.2-1.3 Above high normal [facility] SGOT(AST) 58 U/L 14-36 Above high normal [facility] SGPT(ALT) 18 U/L 9-52 Normal (applies to non-numeric resul ts) [facility] Alkaline Phosphatase 99 U/L 38-126 Normal (applies to non-num reynaldo results) [facility] can increase Alkaline Phosp le vels up to 2 times the normal adult value. Normal values for children and adolescents are 2 to 3 times the normal adult value. Total Protein 6.3-8.2 Below low normal [facility] Albumin 3.5-5.0 Below low normal [facility] Hospital ID Date Data Source [id number] 03/20/2020 09:34:00 AM EDT [facility] Name Value Range Interpretation Code Description Data Julia rce(s) Supporting Document(s) Bilirubin,Direct 0.0-0.3 Above high normal [facility] ID Date Data Source [id number] 03/20/2020 09:20:00 AM T [facility] Name Value Range Interpretation Code Description Data Julia rce(s) Supporting Document(s) Ammonia 39 umol/L 11-32 Above high normal [facility] ID Date Data Source [id number] 03/20/2020 09:06:00 AM EDT [facility] Name Value Range Interpretation Code Description Data Jluia rce(s) Supporting Document(s) White Blood Count 4.8-10.8 Normal (applies to non-numeri c results) [facility] Red Blood Count 3.68-5.22 Below low normal [facility] Hemoglobin 11.2-15.7 Below low normal [facility] Hematocrit 34.1-44.9 Below low normal [facility] Mean Corpuscular Volume 81-99 Above high normal [facility] Mean Corpuscular Hemoglobin 27.0-33.0 Above high normal [facility] Mean Corpuscular HGB Conc 32.0-36.0 Normal (applies to no n-numeric results) [facility] Red Cell Distribution Width 11.5-14.5 Above high normal [facility] Platelet Count 86 X10 3/uL 130-450 Below low normal [facility] Mean Platelet Volume 9.5-12.7 Normal (applies to non-num reynaldo results) [facility] Imm Grans% (AUTO) 0 % 0-2 Normal (applies to non-numeri c results) [facility] Neutrophils % (AUTO) 66 % 40-75 Normal (applies to non-num reynaldo results) [facility] Lymphocytes % (AUTO) 17 % 21-46 Below low normal [facility] Monocytes % (AUTO) 14 % 5-12 Above high normal [facility] Eosinophils % (AUTO) 2 % 1-5 Normal (applies to non-num reynaldo results) [facility] Basophils % (AUTO) 1 % 0-1 Normal (applies to non-numer ic results) [facility] Imm Grans# (AUTO) 0.0-0.5 Normal (applies to non-numeri c results) [facility] Neutrophils # (AUTO) 1.5-8.1 Normal (applies to non-num reynaldo results) [facility] Lymphocytes # (AUTO) 1.0-3.1 Normal (applies to non-num reynaldo results) [facility] Monocytes # (AUTO) 0.2-1.3 Normal (applies to non-numer ic results) [facility] Eosinophils# (AUTO) 0.0-0.5 Normal (applies to non-nume zora results) [facility] Basophils # (AUTO) 0.0-0.1 Normal (applies to non-numer ic results) [facility] ID Date Data Source [id number] 03/19/2020 08:03:00 AM EDT [facility] Hospital Name: SANA SU Pavan : 1960 A ge/Sex: 60F Attending Physician: Soniya Cheng MD [facility] [place] Rec #: [id number] Admission Date: 03/17/20 Room #: 304-01 Admitting Physician: Soniya Cheng MD Report Number: [id number] _ cc: Send Report To: Report Status - Signed PROGRESS NOTE EVENT NOTE Encounter Date: 03/18/20 at 7 p.m. to 03/19/20. SUBJECTIVE: A 60-year-old female who I admitted last evening with severe ascites related to cirrhosis of the liver from chronic alcohol abuse. The patient was seen today by DENISSE Kendrick. The patient underwent a paracentesis with Dr. Chiu with seven liters of fluid removed by Dr. Chiu. She had been given 50 g of albumin. I was called to see the patient as she seemed to be more confused and her blood pressure had been in the 80s systolic. OBJECTIVE: VITAL SIGNS: When I first examined the patient at around 9:30 p.m. her heart rate was in the 80s, her blood pressure I registered 90/56, respiratory rate 16,pulse oximetry was 95% on room air. GENERAL: The patient would answer questions but she appeared to be quite sleepy. She would not stay awake for more than 30 seconds although I could reawaken her just with verbal speaking. HEART: Regular rate and rhythm. ABDOMEN: Much less tense than the evening before. It was nontender. Bowel sounds were present. There was no ecchymosis noted on the surface of the abdomen. LABORATORY DATA: I ordered at 1:15 a.m. White count 5.9, hemoglobin 9.8, platelet count 76,000. Sodium 137, potassium 3.3, CO2 31, BUN 9, creatinine 0.47, lactic acid normal at 1.7, procalcitonin less than 0.05. The patient's blood pressure then dropped to 70s by the nurse shakila lthough she was taking a blood pressure on the left arm that was upright. She was on the right side. I turned her on her back, rechecked her blood pressure. It was 92/62. The patient also had been given 700 mL of a 1000 mL bolus. Previously we had given her 25 g of albumin. 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 Patient has hypotension secondary most likely to large volume paracentesis. PLAN: We gave her 25 g of additional albumin. As well she was given a liter oflactated Ringer's. Her blood pressure seems to have responded. In addition this may be related to acute blood loss as her hemoglobin did drop to 9.8. Will recheck her labs at 6 a.m. I asked the nurse to check blood pressures every hour. If they are stable may go to every two hours and will check on her labs in the morning. I reexamined her abdomen and it still was nontender. She stillremains in encephalopathic which may be due to alcohol withdrawal although we have to consider other options. I was reassured by her normal procalcitonin andlactic acid, however. Dictated Date/Time/Job.No.: 03/19/20 [id number] REPORT SIGNATURE ON FILE Dictated By: Soniya Cheng MD <Electronically signed by Soniya Cheng MD> 03/20/20 0238 Transcribed Date/Time: 03/19/20 0803/JUSTIN Name Value Range Interpretation Code Description Data Julia rce(s) Supporting Document(s) ID Date Data Source [id number] 03/19/2020 05:33:00 AM EDT [facility] Name: SANA SU : 1960 A ge/Sex: 60F Attending Physician: Soniya Cheng MD Med Rec #: [id number] Admission Date: 03/17/20 Room #: 304-01 Admitting Physician: Soniya Cheng MD Report Number: [id number] _ cc: Send Report To: Report Status - Signed CONSULTATION DATE OF CONSULTATION: March 18, 2020 Sana is a 60 year old female with a known history of alcohol abuse, cirrhosis of liver, admitted with increasing abdominal ascites. Dr. Chiu was asked to see this patient in consider abdominal paracentesis. The patient had a significant abdominal distension. The patient never had abdominal paracentesis done before. The patient abuses alcohol. The patient was admitted initially to the alcohol detox unit and the patient was transferredto the emergency room from where the patient was admitted to the medical floor. The patient had decompensated liver disease due to alcoholism. The patient is hyponatremic. The patient had a CT of abdomen and pelvis which confirmed the large ascites. Liver was lobulated, consistent with cirrhosis of liver. MEDICAL PROBLEMS: evidence of portal hypertension alcohol abuse bipolar disorder MEDICATIONS: Aldactone, the patient has discontinued medications ALLERGIES: none SURGICAL HISTORY: tubal ligation vocal cord polypectomy benign left biopsy HABITS: The patient smokes a pack a day. Significant alcohol use. PHYSICAL EXAMINATION: General: The patient is alert and awake at this time. Vital signs: Vitals are stable. HEENT: No erythema. Neck: Supple. Lungs: Decreased breath sounds bilaterally. Cardiac: Regular. Abdomen: Massive ascites present. No palpable liver or spleen. Skin: Icteric. ASSESSMENT AND PLAN: The patient has a massive ascites. We discussed with the patient the risk and benefit. Patient is agreeable. Will follow up with abdominal paracentesis. I will definitely continue the patient on Aldactone. The patient will need albumin therapy after the abdominal paracentesis. Continue both Lasix and Aldactone. We discussed with the patient. 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 REPORT SIGNATURE ON FILE Dictated By: Polina Chiu MD <Electronically signed by Marcela Chiu MD> 03/19/20 1730 Dictation Date/Time: 03/18/20 3942 Transcribed Date/Time: 03/19/20 0533/JUANA Name Value Range Interpretation Code Description Data Julia rce(s) Supporting Document(s) ID Date Data Source [id number] 03/19/2020 08:30:00 AM EDT [facility] Name: SANA SU : 1960 A ge/Sex: 60F Attending Physician: Soniya Cheng MD Med Rec #: [id number] Admission Date: 03/17/20 Room #: [facility] Admitting Physician: Soniya Cheng MD Report Number: [id number] _ cc: PCP None Send Report To: Report Status - Signed OPERATIVE NOTE DATE OF SURGERY: March 18, 2020 SURGEON: Polina Chiu MD PROCEDURES: Abdominal paracentesis. INDICATIONS: Consent was obtained from the patient. The patient had a massive ascites. Thepatient has a history of alcohol abuse. The patient has cirrhosis of liver. Rule out bacteria peritonitis. Rule out infection. Rule out malignancy. OPERATIVE PROCEDURE: After obtaining the consent and explaining the procedure risks and benefit were explained to the patient. The right mid abdominal region was marked under ultrasound guidance and cleaned with beta hexedine and infiltrated with lidocaine. A small incision made. Abdominal paracentesis needle inserted. Free-flowing fluid was coming out. Needle withdrawn. Catheter advanced. Aboutseven liters of straw colored fluid was removed. The patient tolerated the procedure well. No complications noted. I will send ascitic fluid for LDH, glucose, protein, cell count, cultures and cytology. I will also give patient IV albumin. Will follow up with the patient. REPORT SIGNATURE ON FILE Dictated By: Polina Chiu MD <Electronically signed by Polina Chiu MD> 03/19/20 1733 Dictation Date/Time: 03/18/20 1656 Transcribed Date/Time: 03/19/20 0830/ANDRESMelviHEIDI Name Value Range Interpretation Code Description Data Julia rce(s) Supporting Document(s) ID Date Data Source [id number] 03/19/2020 06:26:00 AM EDT [facility] Name Value Range Interpretation Code Description Data Julia rce(s) Supporting Document(s) Sodium 138 mmol/L 137-145 Normal (applies to non-numeric resul ts) [facility] Potassium 3.5-5.1 Below low normal [facility] Chloride 102 mmol/L 98-112 Normal (applies to non-numeric resul ts) [facility] Carbon Dioxide CO2 22.0-33.0 Normal (applies to non-numer ic results) [facility] Anion Gap 4.0-11.0 Normal (applies to non-numeric resul ts) [facility] BUN 9 mg/dL 7-17 Normal (applies to non-numeric resul ts) [facility] Creatinine 0.70-1.20 Below low normal [facility] GFR >60 Normal (applies to non-numeric results) [facility] Result based on MDRD formula. Glucose Level 87 mg/dL 74-99 Normal (applies to non-numeric re sults) [facility] The reference range is only applicable w hen fasting. Calcium-Uncorrected 8.4-10.2 Below low normal [facility] Corrected Calcium 8.4-10.2 Normal (applies to non-numeri c results) [facility] Bilirubin,Total 0.2-1.3 Above high normal [facility] SGOT(AST) 51 U/L 14-36 Above high normal [facility] SGPT(ALT) 16 U/L 9-52 Normal (applies to non-numeric resul ts) [facility] Alkaline Phosphatase 90 U/L 38-126 Normal (applies to non-num reynaldo results) [facility] can increase Alkaline Phosp le vels up to 2 times the normal adult value. Normal values for children and adolescents are 2 to 3 times the normal adult value. Total Protein 6.3-8.2 Below low normal [facility] Albumin 3.5-5.0 Below low normal [facility] ID Date Data Source [id number] 03/19/2020 06:26:00 AM EDT [facility] Name Value Range Interpretation Code Description Data Julia rce(s) Supporting Document(s) Bilirubin,Direct 0.0-0.3 Above high normal [facility] ID Date Data Source [id number] 03/19/2020 05:43:00 AM EDT [facility] Name Value Range Interpretation Code Description Data Julia rce(s) Supporting Document(s) Ammonia 68 umol/L 11-32 Above high normal [facility] ID Date Data Source [id number] 03/19/2020 05:21:00 AM EDT [facility] Name Value Range Interpretation Code Description Data Julia rce(s) Supporting Document(s) White Blood Count 4.8-10.8 Normal (applies to non-numeri c results) [facility] Red Blood Count 3.68-5.22 Below low normal [facility] Hemoglobin 11.2-15.7 Below low normal [facility] Hematocrit 34.1-44.9 Below low normal [facility] Mean Corpuscular Volume 81-99 Above high normal [facility] Mean Corpuscular Hemoglobin 27.0-33.0 Above high normal [facility] Mean Corpuscular HGB Conc 32.0-36.0 Normal (applies to no n-numeric results) [facility] Red Cell Distribution Width 11.5-14.5 Above high normal [facility] Platelet Count 77 X10 3/uL 130-450 Below low normal [facility] Mean Platelet Volume 9.5-12.7 Normal (applies to non-num reynaldo results) [facility] Imm Grans% (AUTO) 0 % 0-2 Normal (applies to non-numeri c results) [facility] Neutrophils % (AUTO) 64 % 40-75 Normal (applies to non-num reynaldo results) [facility] Lymphocytes % (AUTO) 19 % 21-46 Below low normal [facility] Monocytes % (AUTO) 16 % 5-12 Above high normal [facility] Eosinophils % (AUTO) 2 % 1-5 Normal (applies to non-num reynaldo results) [facility] Basophils % (AUTO) 1 % 0-1 Normal (applies to non-numer ic results) [facility] Imm Grans# (AUTO) 0.0-0.5 Normal (applies to non-numeri c results) [facility] Neutrophils # (AUTO) 1.5-8.1 Normal (applies to non-num reynaldo results) [facility] Lymphocytes # (AUTO) 1.0-3.1 Normal (applies to non-num reynaldo results) [facility] Monocytes # (AUTO) 0.2-1.3 Normal (applies to non-numer ic results) [facility] Eosinophils# (AUTO) 0.0-0.5 Normal (applies to non-nume zora results) [facility] Basophils # (AUTO) 0.0-0.1 Normal (applies to non-numer ic results) [facility] ID Date Data Source [id number] 03/19/2020 02:05:00 AM EDT [facility] Name Value Range Interpretation Code Description Data Julia rce(s) Supporting Document(s) Procalcitonin 0.00-0.24 Normal (applies to non-numeric re sults) [facility] 1.Risk of Progression to severe sepsis a nd septic shock: < 0.50 ng/mL Low Risk of severe sepsis and/or septic shock > 2.00 ng/mL High Risk of severe sepsis and/or septic shock 2.Decision on antibiotic discontinuation for suspected or confirmed septic patients: Antibiotic therapy may be discontinued if the current PCT is <0.50 ng/mL or if there is an 80% decrease in PCT. 3.Decision for antibiotic therapy for patients with suspected or confirmed Lower Respiratory Tract Infection (LRTI): >0.25 ng/mL - Antibiotic therapy encouraged 4.Decision on antibiotic discontinuation for patients with suspected or confirmed LRTI: Antibiotic therapy may be discontinued if the current PCT is <0.25 ng/mL or if there is an 80% decrease in PCT. NOTE: Antibiotic therapy should be considered regardless of PCT result if the patient is clinically unstable, is at high risk for adverse outcome, has strong evidence of bacterial pathogen or the clinical context indicates antibiotic therapy is warranted. ID Date Data Source [id number] 03/19/2020 01:56:00 AM EDT [facility] 3 hour post Lactic if elevated? Y Name Value Range Interpretation Code Description Data Julia rce(s) Supporting Document(s) Lactic Acid 0.4-2.0 Normal (applies to non-numeric resu lts) [facility] ID Date Data Source [id number] 03/19/2020 01:53:00 AM EDT [facility] Name Value Range Interpretation Code Description Data Julia rce(s) Supporting Document(s) Sodium 137 mmol/L 137-145 Normal (applies to non-numeric resul ts) [facility] Potassium 3.5-5.1 Below low normal [facility] Chloride 101 mmol/L 98-112 Normal (applies to non-numeric resul ts) [facility] Carbon Dioxide CO2 22.0-33.0 Normal (applies to non-numer ic results) [facility] Anion Gap 4.0-11.0 Normal (applies to non-numeric resul ts) [facility] BUN 9 mg/dL 7-17 Normal (applies to non-numeric resul ts) [facility] Creatinine 0.70-1.20 Below low normal [facility] GFR >60 Normal (applies to non-numeric results) [facility] Result based on MDRD formula. Glucose Level 108 mg/dL 74-99 Above high normal [facility] The reference range is only applicable w hen fasting. Calcium-Uncorrected 8.4-10.2 Below low normal [facility] Corrected Calcium 8.4-10.2 Normal (applies to non-numeri c results) [facility] ID Date Data Source [id number] 03/19/2020 01:30:00 AM EDT [facility] Name Value Range Interpretation Code Description Data Julia rce(s) Supporting Document(s) White Blood Count 4.8-10.8 Normal (applies to non-numeri c results) [facility] Red Blood Count 3.68-5.22 Below low normal [facility] Hemoglobin 11.2-15.7 Below low normal [facility] Hematocrit 34.1-44.9 Below low normal [facility] Mean Corpuscular Volume 81-99 Above high normal [facility] Mean Corpuscular Hemoglobin 27.0-33.0 Above high normal [facility] Mean Corpuscular HGB Conc 32.0-36.0 Normal (applies to no n-numeric results) [facility] Red Cell Distribution Width 11.5-14.5 Above high normal [facility] Platelet Count 76 X10 3/uL 130-450 Below low normal [facility] Mean Platelet Volume 9.5-12.7 Normal (applies to non-num reynaldo results) [facility] Imm Grans% (AUTO) 1 % 0-2 Normal (applies to non-numeri c results) [facility] Neutrophils % (AUTO) 66 % 40-75 Normal (applies to non-num reynaldo results) [facility] Lymphocytes % (AUTO) 16 % 21-46 Below low normal [facility] Monocytes % (AUTO) 15 % 5-12 Above high normal [facility] Eosinophils % (AUTO) 2 % 1-5 Normal (applies to non-num reynaldo results) [facility] Basophils % (AUTO) 1 % 0-1 Normal (applies to non-numer ic results) [facility] Imm Grans# (AUTO) 0.0-0.5 Normal (applies to non-numeri c results) [facility] Neutrophils # (AUTO) 1.5-8.1 Normal (applies to non-num reynaldo results) [facility] Lymphocytes # (AUTO) 1.0-3.1 Normal (applies to non-num reynaldo results) [facility] Monocytes # (AUTO) 0.2-1.3 Normal (applies to non-numer ic results) [facility] Eosinophils# (AUTO) 0.0-0.5 Normal (applies to non-nume zora results) [facility] Basophils # (AUTO) 0.0-0.1 Normal (applies to non-numer ic results) [facility] ID Date Data Source [id number] 03/18/2020 11:14:00 AM EDT [facility] Name: SANA SU : 1960 A ge/Sex: 60F Attending Physician: Soniya Cheng MD Med Rec #: [id number] Admission Date: 03/17/20 Room #: 304-01 Admitting Physician: Soniya Cheng MD Report Number: [id number] _ cc: PCP None Send Report To: Report Status - Signed HISTORY AND PHYSICAL Date of Admission: 03/17/20 CHIEF COMPLAINT: A 60-ear-old female who originally presented to [facility] Emergency Room, transferred to our facility for further management of severe ascites and decompensated liver disease. HISTORY OF PRESENT ILLNESS: Sana who does not have a primary care physician recently moved from [place] where she had lived most of her life. The patientmoved to [place] within the last month after being quarantined with her daughter in [place], [place] from the previous two and half months. She did not think that she had any major medical problems until approximately three months ago. 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 She had injured her right knee, which had been previously fractures many years ago. Thepatient was taken Ibuprofen and at that time noticed that she began having increased swelling of her lower extremities and her abdomen. To her this appearto accumulate a short period of time. She had seen someone in Urgent Care in the [place] area who had prescribed; spironolactone and furosemide. She had taken this initially which had been helpful, however, stopped in when she began experiencing weakness and muscle aches and cramps. She then resumed it, althoughit did not seem to be as affective. She did go also to [facility], Emergency Room on 03-01-2020 complaining of severe abdominal pain. I have a note from the ER visit at that time, their diagnosis was ascites related to decompensated liver disease due to alcoholism. She was mildly hyponatremic at that time with a sodium of 131 with a normal creatinine of 0.5. She was instructed to continue diuretic therapy. As mentioned, the patient thereafter has officially moved in with her mother in [place]. Arrived to the ER in [place] as she wanted to get help with her alcohol abuse. The patient has been drinking vodka daily for quite awhile. She said the longest period over thelast five years that she has gone without drinking is two days. She was drinking a half gallon of vodka every two and half days, now she has been doing a half gallon every seven days. Her last drink was this morning. Patient also had thought she had gotten bitten by a spider on her right foot, over the previous week, she has an ulceration and some erythema, although she feels it isimproving. The patient was seen in [place] by YARELI Marcos. Her lab work there, herwhite count 7.7, Hgb 12.6, platelet count 108,000. INR 1.44 which is within normal limits. Her sodium was 134, potassium 3.4, CO2 28.8, BUN 6, creatinine 0.6, glucose 102. Lactic acid normal at 1.7. Calcium 7.9 but albumin was 2.2, corrected calcium was normal. Magnesium was slightly low at 1.6. Total bilirubin was 6.2, AST 86, ALT 26, alkaline phosphatase elevated at 163, lipase was slightly elevated at 571. Amylase was normal. The patient was noted to have significant amount of ascites. She had a CT scan of the abdomen and pelvis, which showed large ascites, no evidence of any bowel pathology. The liver was lobulated on CT scan which would be consistent with cirrhosis. The gallbladder was not distended. The patient also had a duplex study of the lower extremities that failed to show a DVT. Case was discussed with the Hospitalist at [facility]. She was transferred to our facility for further evaluation and management. It should be noted as well that she had an EKG that showed sinus tachycardia with a rate of 104. There were Q waves in the anterior and septal leads. as well as the inferior leads. There was no acute ST-T wave changes consistent with acute ischemia. On arrival the patient was complaining mostly of abdominal distension. She had not had a fever at home. She has not had any contacts with any COVID patient's to her knowledge. Although [facility] She had no respiratory symptoms other than difficult breathing due toabdominal distension. MEDICAL PROBLEMS: 1. Cirrhotic appearing liver on imaging, most likely due to alcohol abuse. 2. Evidence of portal hypertension secondary to cirrhotic liver with large ascites. She has never had a paracentesis. 3. Alcohol abuse and probable dependence. 4. Bipolar disorder. The patient states at age 19 she was diagnosed with bipolar disorder. She said she had episodes of full anastasiia with inability to slee p for days and manic episodes. This will be consistent with type 1. She said she was on several medications including lithium, Wellbutrin and became quit frustrated and said this is what partially lead to her self medicating withalcohol as she started drinking heavy at age 20. She is not currently on any psychotropic treatment for her bipolar disorder. MEDICATIONS: Prescription medications, currently none. She had been on furosemide and spironolactone, unknown doses. ALLERGIES: None known. PAST SURGICAL HISTORY: 1. section X1. 2. Benign left breast biopsy. 3. Vocal cord polypectomy. 4. Tubal ligation. 5. Previous injury, left knee tibial plateau fracture. OBSTETRICAL HISTORY: 5 para 1041. HABITS: She smokes a pack a day, most of her life since the age of 20 which is approximately a 40 pack year history, although she has cut down to a pack every three days over the last few months. Alcohol, the patient as mentioned drank a half gallon of vodka every two and half days. Now drinking a a half gallon every seven days. She has been drinking since the age of 20. In the past, she used other drugs such as cocaine, but never used any IV drugs. SOCIAL HISTORY: The patient is since 1987. Her last serious relationship ended six years ago. She worked at a [employer] at a [employer] until earlier this year. 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 She [facility]. She now currently [facility] [place],she just recently moved within the last month. FAMILY HISTORY: Her mom is 76 and reasonable healthy. Her dad at 78 due to a myocardial infarction. REVIEW OF SYSTEMS: She does wear glasses. She occasionally has black stools, but this is intermittent. She normally has a bowel movement daily. She has never vomited blood. She never had a blood clot of VTE. She has had lower extremity edema about the same amount of time she had significant abdominal distension. She has never had a stroke or known coronary disease. OBJECTIVE: Vital signs: Temperature 98.4, pulse 100, BP 126/88, respiratory rate 22, SaO2 97% on room air. General: A very pleasant female. She appears to actually have good insight intoher disease process. She almost appears embarrassed that she drank so long to cause such severe injury to her liver. She seems motivated, tearful at various times, asking for help, wanting to comply with whatever treatment plan would allow her to get better. She has obvious a large amount of ascites and lower extremity edema. She does sit up with just minimal assistance. The only time she seemed to be in distress, is when she sat up and was not able to lean back due to her abdominal distension. She looks about her stated age. Ears: TMs clear with normal landmarks. Eyes: Icteric sclera noted, pupils were 2.5 mm and reactive. Nose: No discharge. Oropharynx: Is clear. Neck: Supple. No bruits. No masses. No lymphadenopathy. Lungs: Decreased at the inferior portions, I think largely due to difficulty with her diaphragm being able to move efficiently with her ascites, but I did not hear any crackles. Heart: S1, S2. Regular rate and rhythm without obvious murmurs. Abdomen: A large amount of distension, positive fluid wave. Difficult to palpate her liver due the large amount of ascites. Did not appear to be significantly enlarged. I did not palpate a spleen. She was uncomfortable, but she did not have any acute tenderness of her abdomen. She had bowel sounds that were present. SKIN:There was some icteric discoloration to the skin of her chest. I do not appreciate severe, but there was some mildly dilated abdominal veins, superficial veins. Upper extremities: No asterisks noted. No tremors at this time. Radial pulses+2. No focal motor deficits. Lower extremities: 3+ edema noted all the way up to the thigh. There were tightto palpation with some tenderness noted medially behind the right knee. Dorsalis pedis pulses were +2. Over the right foot, there was an ulceration measuring 8 cm x 8 mm over the dorsum of the foot, between the first and second metatarsal bones. There was associated erythema extending up to the base of the toes. The erythema was approximately 5 x 4 cm. The patient's peripheral pulseswas +2 on both sides. LABORATORY AND X-RAY DATA: From [place] as mentioned above. ASSESSMENT: A 60-year-old female who has probably bipolar type 1 who has not been on treatment since she was a teenager. The patient began drinking heavily in her early 20s. She was diagnosed with alcohol abuse and probable dependence also with nicotine dependence who began having abdominal distension due to ascites earlier this year approximately three months ago, along with lower extremity edema. CT scan shows a cirrhotic appearing liver. She most likely has significant portal hypertension due to decompensated liver disease due to al coholism. She has never had a blood transfusion or used IV drugs, but also need to be evaluated for hepatitis C. The patient last drink was this morning, she would be at high risk to go throughalcohol withdrawals as she has not had more then [facility] 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 The patient has hyperbilirubinemia and elevated AST consistentwith alcohol injury. The patient is not tender over her liver, was considering alcohol hepatitis. Her bilirubin in March 02 in [place] was also elevated at 5.7. PLAN: The patient will be admitted to inpatient service. Expect her to be here at least two midnights. In regards to her ascites, we will arrange for a paracentesis either tomorrow or Thursday. Would administer albumin particularly ifmore than 5 liters is removed. Would administer at least 50 grams if 5 liters or more are removed. The patient will have repeat lab work in the morning including a chemistry panel, including magnesium. Did give her a bolus of magnesium as she as hypomagnesemic in [place] and oral potassium. We will also start her on spironolactone 50 mg p.o. b.i.d and furosemide 40 mg a day. This maybe adjusted. Would need to replace both her magnesium and possibly her potassium, but should be monitored. A withdrawal protocol with Serax and Ativan were ordered. The patient appears to be quite ready to make changes in her lifeand is quite scared and ashamed of her current medical condition. Would use thisopportunity to set her up with a good support system for alcohol abstinence. The patient will also need a new primary physician and a powder line repairer to further monitor her. I did order a nicotine patch as well. TIME SPENT: 75 minutes was spent in total time with over half the time in [id number] time. ADDENDUM: The patient also has an ulceration of her right foot, this conceivablycould be from a spider bite, although we do not have brown recluse spiders. There is surrounding erythema. We will order Bactroban ointment topically b.i.d.as well as Keflex 500 mg p.o. b.i.d. for 5-7 days. The patient has not had a history of MRSA to her knowledge. We will continue to monitor this carefully forany worsening, it is exacerbated by her lower extremity edema. REPORT SIGNATURE ON FILE Dictated By: Soniya Cheng MD <Electronically signed by Soniya Cheng MD> 03/18/20 2135 Dictation Date/Time: 03/18/20 0149 Transcribed Date/Time: 03/18/20 1114/DANTE Name Value Range Interpretation Code Description Data Julia rce(s) Supporting Document(s) ID Date Data Source [id number] 03/18/2020 05:48:00 PM EDT [facility] Name Value Range Interpretation Code Description Data [facility] rce(s) Supporting Document(s) Sodium 135 mmol/L 137-145 Below low normal [facility] Potassium 3.5-5.1 Normal (applies to non-numeric resul ts) [facility] Chloride 99 mmol/L 98-112 Normal (applies to non-numeric resul ts) [facility] Carbon Dioxide CO2 22.0-33.0 Normal (applies to non-numer ic results) [facility] Anion Gap 4.0-11.0 Normal (applies to non-numeric resul ts) [facility] BUN 9 mg/dL 7-17 Normal (applies to non-numeric resul ts) [facility] Creatinine 0.70-1.20 Below low normal [facility] GFR >60 Normal (applies to non-numeric results) [facility] Result based on MDRD formula. Glucose Level 107 mg/dL 74-99 Above high normal [facility] The reference range is only applicable w hen fasting. Calcium-Uncorrected 8.4-10.2 Below low normal [facility] Corrected Calcium 8.4-10.2 Normal (applies to non-numeri c results) [facility] Bilirubin,Total 0.2-1.3 Above high normal [facility] SGOT(AST) 74 U/L 14-36 Above high normal [facility] SGPT(ALT) 23 U/L 9-52 Normal (applies to non-numeric resul ts) [facility] Alkaline Phosphatase 130 U/L 38-126 Above high normal [facility] can increase Alkaline Phosp le vels up to 2 times the normal adult value. Normal values for children and adolescents are 2 to 3 times the normal adult value. Total Protein 6.3-8.2 Normal (applies to non-numeric re sults) [facility] Albumin 3.5-5.0 Below low normal [facility] ID Date Data Source [id number] 03/18/2020 05:48:00 PM EDT [facility] Name Value Range Interpretation Code Description Data Julia rce(s) Supporting Document(s) Bilirubin,Direct 0.0-0.3 Above high normal [facility] ID Date Data Source [id number] 03/20/2020 12:36:00 PM EDT [facility] system [facility] johnson Garduno MD, Director PAGE [address] [place] [address] [place] [address] Name: SANA SU Rec #: [id number]: 1960 Age/Sex: 60/F Attending Provider: Soniya Cheng MD Date of Service: 03/17/20 Location: [facility] CC: MD Bruce Ross PA [facility] None Polina Chiu MD Specimen: [id number] Received: [id number] Status: RAJ Perez Num: [id number] Collected: Sp Type: SURGICAL Subm Doc: Soniya Cheng MD Collected By: Polina Chiu MD CLINICAL DIAGNOSIS Alcoholism; Ascites GROSS DESCRIPTION:Labeled as "Sana Su and peritoneal fluid/ascites". Submitted is 200 mL of fresh hazyamber fluid for cell block.geeta FINAL MICROSCOPIC DIAGNOSIS:Peritoneal fluid/ascites cell block: Negative for malignancy (mesothelial cells, red blood cells, and white blood cells).jeannine/jayna(1) Signed (signature on file) Eliseo Garduno MD 03/20/20 1235 END OF REPORT Name Value Range Interpretation Code Description Data Julia rce(s) Supporting Document(s) ID Date Data Source [id number] 03/20/2020 12:01:00 PM EDT [facility] Name: SANA SU : 1960 A ge/Sex: 60F Ordering Provider: Polina Chiu MD Med Rec #: [id number] Reg Status: ADM IN Room #: 312-1 Date of Service: 03/18/20 Report Number: [id number] cc:Polina Chiu MD; PCP None Send Report To: [id number] US/US Paracentesis Reason for exam: fluid build up FINDINGS: Ultrasound guidance was provided to Dr. Chiu for performing paracentesis at bedside. REPORT SIGNATURE ON FILE Reported By: Luis Haddad MD <Electronically signed by Severo Haddad MD> 03/21/20 0942 Dictation Date/Time: 03/20/20 4331 Transcribed Date/Time: 03/20/20 1201 Car Greaser: DANTE Name Value Range Interpretation Code Description Data Julia rce(s) Supporting Document(s) ID Date Data Source [id number] 03/19/2020 02:20:00 PM EDT [facility] Name Value Range Interpretation Code Description Data Julia rce(s) Supporting Document(s) Volume,(Barbi Fluid) 2 mL Normal (applies to non-nume zora results) [facility] ID Date Data Source [id number] 03/19/2020 02:20:00 PM EDT [facility] Name Value Range Interpretation Code Description Data Julia rce(s) Supporting Document(s) Appearance,(Barbi Fluid) Normal (applies to non- numeric results) [facility] Slide reviewed by Pathologist for conf irmation. 03/19/20 DR GARDUNO. This is a Corrected Result --- 03/19/20 1420 --- Appear(PeriFld) previously reported as: Clear ID Date Data Source [id number] 03/19/2020 02:20:00 PM EDT [facility] Name Value Range Interpretation Code Description Data Julia rce(s) Supporting Document(s) Color,(Barbi Fld) Normal (applies to non-numeric results) [facility] ID Date Data Source [id number] 03/19/2020 02:20:[address] [facility] Name Value Range Interpretation Code Description Data Julia rce(s) Supporting Document(s) RBC (Barbi Fld) 1000 uL Normal (applies to non-numeric r esults) [facility] No established reference values ID Date Data Source [id number] 03/19/2020 02:20:00 PM T [facility] Name Value Range Interpretation Code Description Data Julia rce(s) Supporting Document(s) WBC (Barbi Fld) 97 uL Normal (applies to non-numeric r esults) [facility] No established reference values ID Date Data Source [id number] 03/19/2020 02:20:[address] [facility] Name Value Range Interpretation Code Description Data Julia rce(s) Supporting Document(s) Mononuclear %(Barbi Fld) Normal (applies to non- numeric results) [facility] No established reference values ID Date Data Source [id number] 03/19/2020 02:20:00 PM EDT [facility] Name Value Range Interpretation Code Description Data Julia rce(s) Supporting Document(s) Polymononuclear %(Barbi Fld) Normal (applies to non-numeric results) [facility] No established reference values ID Date Data Source [id number] 03/19/2020 02:20:00 PM EDT [facility] Name Value Range Interpretation Code Description Data Julia rce(s) Supporting Document(s) Mononuclear #(Barbi Fld) 66 uL Normal (applies to non- numeric results) [facility] No established reference values ID Date Data Source [id number] 03/19/2020 02:20:[address] [facility] Name Value Range Interpretation Code Description Data Julia rce(s) Supporting Document(s) Polymononuclear #(Barbi Fld) 31 uL Normal (applies to non-numeric results) [facility] No established reference values ID Date Data Source [id number] 03/19[facility] Value [facility] Interpretation Code Description Data Julia rce(s) Supporting Document(s) Glucose,(Barbi Fld) 120 mg/dL Normal (applies to non-numer ic results) [facility] No established reference values ID Date Data Source [id number] 03/19/2020 02:20:00 PM EDT [facility] Name Value Range Interpretation Code Description Data Julia rce(s) Supporting Document(s) LDH,(Barbi Fld) 46 U/L Normal (applies to non-numeric r esults) [facility] No established reference values ID Date Data Source [id number] 03/19/2020 02:20:[address] [facility] Name Value Range Interpretation Code Description Data Julia rce(s) Supporting Document(s) Total Protein,(Barbi Fld) Normal (applies to non -numeric results) [facility] No established reference values ID Date Data Source [id number] 03/19/2020 02:20:00 PM EDT [facility] Name Value Range Interpretation Code Description Data Julia rce(s) Supporting Document(s) Albumin (Barbi Fld) Normal (applies to non-numer ic results) [facility] No established reference values ID Date Data Source [id number] 03/20/2020 04:52:00 PM EDT [facility] Name Value Range Interpretation Code Description Data Julia rce(s) Supporting Document(s) Amylase,Body Fluid result 50 U/L Normal (applies to no n-numeric results) [facility] REFERENCE VALUE------ See Comment ADDITIONAL INFORMATION Peritoneal and Drain fluid amylase activity in non-pancreatic peritoneal fluid is often less than or equal to the serum amylase activity. Ascites associated with pancreatitis typically has amylase activity at least 5-fold greater than serum. Normal pleural fluid amylase activity is typically less than the upper limit of normal serum amylase and has a ratio of pleural fluid amylase to serum amylase ratio <1.0. All other fluids refer to www.IfOnlys.com for further interpretive information. This test has been modified from the train announcer's instructions. Its performance characteristics were determined by [facility] in a manner consistent with CLIA requirements. This test has not been cleared or approved by the U.S. Food and Drug Administration. Amylase,Body Fluid Type Normal (applies to non- numeric results) [facility] Test Performed by: [address] [address] Embedded Nurse: Daniel Degroot M.D. Ph.D.; CLIA# [id number] ID Date Data Source [id number] 03/18/2020 07:14:00 AM EDT [facility] Name Value Range Interpretation Code Description Data Julia rce(s) Supporting Document(s) Hep C Ab-T Test Nonreactive Normal (applies to non-numeric results) [facility] ID Date Data Source [id number] 03/18/2020 07:14:00 AM EDT [facility] Name Value Range Interpretation Code Description Data Julia rce(s) Supporting Document(s) Hep Bs Ag Result T-Test Nonreactive Normal (applies to non -numeric results) [facility] ID Date Data Source [id number] 03/18/2020 07:14:00 AM EDT [facility] Name Value Range Interpretation Code Description Data Julia rce(s) Supporting Document(s) Hep Bs Ab Numeric result Normal (applies to non -numeric results) [facility] Reference Value Protected Immunity: >10 mIU/mL Non-Immunity : <10 mIU/mL Hep Bs Ab result T-Test [place] [facility] Reference Value Protected Immunity: Re active Non-Immunity : Nonreactive ID Date Data Source [id number] 03/18/2020 06:16:00 AM EDT [facility] Name Value Range Interpretation Code Description Data Julia rce(s) Supporting Document(s) Sodium 134 mmol/L 137-145 Below low normal [facility] Potassium 3.5-5.1 Normal (applies to non-numeric resul ts) [facility] Chloride 100 mmol/L 98-112 Normal (applies to non-numeric resul ts) [facility] Carbon Dioxide CO2 22.0-33.0 Normal (applies to non-numer ic results) [facility] Anion Gap 4.0-11.0 Normal (applies to non-numeric resul ts) [facility] BUN 8 mg/dL 7-17 Normal (applies to non-numeric resul ts) [facility] Creatinine 0.70-1.20 Below low normal [facility] GFR >60 Normal (applies to non-numeric results) [facility] Result based on MDRD formula. Glucose Level 98 mg/dL 74-99 Normal (applies to non-numeric re sults) [facility] The reference range is only applicable w hen fasting. Calcium-Uncorrected 8.4-10.2 Below low normal [facility] Corrected Calcium 8.4-10.2 Normal (applies to non-numeri c results) [facility] Bilirubin,Total 0.2-1.3 Above high normal [facility] SGOT(AST) 79 U/L 14-36 Above high normal [facility] SGPT(ALT) 22 U/L 9-52 Normal (applies to non-numeric resul ts) [facility] Alkaline Phosphatase 138 U/L 38-126 Above high normal [facility] can increase Alkaline Phosp le vels up to 2 times the normal adult value. Normal values for children and adolescents are 2 to 3 times the normal adult value. Total Protein 6.3-8.2 Normal (applies to non-numeric re sults) [facility] Albumin 3.5-5.0 Below low normal [facility] ID Date Data Source [id number] 03/18/2020 06:16:00 AM EDT [facility] Name Value Range Interpretation Code Description Data Juila rce(s) Supporting Document(s) Magnesium 1.80-2.40 Normal (applies to non-numeric resul ts) [facility] ID Date Data Source [id number] 03/18/2020 06:16:00 AM T [facility] Name Value Range Interpretation Code Description Data Julia rce(s) Supporting Document(s) Bilirubin,Direct 0.0-0.3 Above high normal [facility] ID Date Data Source [id number] 03/18/2020 05:30:00 AM EDT [facility] Name Value Range Interpretation Code Description Data Julia rce(s) Supporting Document(s) White Blood Count 4.8-10.8 Normal (applies to non-numeri c results) [facility] Red Blood Count 3.68-5.22 Below low normal [facility] Hemoglobin 11.2-15.7 Normal (applies to non-numeric resul ts) [facility] Hematocrit 34.1-44.9 Below low normal [facility] Mean Corpuscular Volume 81-99 Above high normal [facility] Mean Corpuscular Hemoglobin 27.0-33.0 Above high normal [facility] Mean Corpuscular HGB Conc 32.0-36.0 Normal (applies to no n-numeric results) [facility] Red Cell Distribution Width 11.5-14.5 Above high normal [facility] Platelet Count 93 X10 3/uL 130-450 Below low normal [facility] Mean Platelet Volume 9.5-12.7 Normal (applies to non-num reynaldo results) [facility] Imm Grans% (AUTO) 0 % 0-2 Normal (applies to non-numeri c results) [facility] Neutrophils % (AUTO) 66 % 40-75 Normal (applies to non-num reynaldo results) [facility] Lymphocytes % (AUTO) 16 % 21-46 Below low normal [facility] Monocytes % (AUTO) 15 % 5-12 Above high normal [facility] Eosinophils % (AUTO) 2 % 1-5 Normal (applies to non-num reynaldo results) [facility] Basophils % (AUTO) 1 % 0-1 Normal (applies to non-numer ic results) [facility] Imm Grans# (AUTO) 0.0-0.5 Normal (applies to non-numeri c results) [facility] Neutrophils # (AUTO) 1.5-8.1 Normal (applies to non-num reynaldo results) [facility] Lymphocytes # (AUTO) 1.0-3.1 Normal (applies to non-num reynaldo results) [facility] Monocytes # (AUTO) 0.2-1.3 Normal (applies to non-numer ic results) [facility] Eosinophils# (AUTO) 0.0-0.5 Normal (applies to non-nume zora results) [facility] Basophils # (AUTO) 0.0-0.1 Normal (applies to non-numer ic results) [facility] ID Date Data Source [id number] 03/20/2020 11:50:00 AM EDT [facility] [place] Garduno MD, Director PAGE [address] [place] [address] [place] [address] Name: SANA SU [facility] Rec #: [id number]: 1960 Age/Sex: 60/F Attending Provider: Soniya Cheng MD Date of Service: 03/17/20 Location: [facility] CC: MD Bruce Ross PA PCP None Polina Chiu MD Specimen: [id number] Received: [id number] Status: RAJ Perez Num: [id number] Collected: [id number] Type: PERITON FL Subm Doc: Soniya Cheng MD NONGYN Specimen Submitted Submitted: Peritoneal fluidLabeled: Ascites Received: ~ 1000 mLAp pearance: juli maya Clinical Hx: ETOH Clinical Dx: ascites Microscopic Description Mesothelial cells, wbc's, and rbc's Cytologic Diagnosis Negative for malignancy Signed (signature on file) Meet MAC 03/20/20 1026 (prelim) (signature on file) SKingsley Garduno MD 03/20/20 1149 END OF REPORT Name Value Range Interpretation Code Description Data Julia rce(s) Supporting Document(s) ID Date Data Source [id number] [facility] By: Nurse Initials: PASQUALE Time Collected: 1800 Name Value Range Interpretation Code Description Data Julia rce(s) Supporting Document(s) Color,Urine Colorl-Dk Y Normal (applies to non-numeric res ults) [facility] Clarity,Urine Clear Normal (applies to non-numeric re sults) [facility] Specific [place],Urine 1.005-1.030 Normal (applies to non- numeric results) [facility] pH,Urine 5.0-8.0 Normal (applies to non-numeric resul ts) [facility] Protein,Urine Negative Normal (applies to non-numeric re sults) [facility] Glucose,Urine Negative Normal (applies to non-numeric re sults) [facility] Ketones,Urine Negative [facility] Blood,Urine Negative Normal (applies to non-numeric resu lts) [facility] Bilirubin,Urine Negative [facility] Urobilinogen,Urine 0.2-1.0 [facility] Leukocyte Esterase,Urine Negative Normal (applies to non -numeric results) [facility] Nitrite,Urine Negative Normal (applies to non-numeric re sults) [facility] ID Date Data Source [id number] 03/17/2020 05:29:00 PM EDT [facility] Name Value Range Interpretation Code Description Data Julia rce(s) Supporting Document(s) Sodium 134 mmol/L 136-145 Below low normal [facility] ospital Potassium 3.5-5.1 Below low normal [facility] spital Chloride 97 mmol/L 98-107 Below low normal [facility] spital Carbon Dioxide CO2 21-32 Normal (applies to non-numer ic results) [facility] Anion Gap 5.0-16.0 Normal (applies to non-numeric resul ts) [facility] BUN 6 mg/dL 7-18 Below low normal [facility] spital Creatinine,Serum 0.7-1.2 Below low normal [facility] GFR >60 Normal (applies to non-numeric results) [facility] Glucose Level 102 mg/dL 60-99 Above high normal [facility] Reference range is only applicable when patient is fasting Note the following drug interference: Sulfasalazine Sulfapyridine Can see falsely depressed Can see falsely elevated result with up to 17% results with up to 11% decrease in measurement increase in measurement Recommend patients be collected for this test prior to administration of either drug. Calcium 8.5-10.1 Below low normal [facility] spital Bilirubin,Total 0.1-1.9 [facility] Tracy Lowe RN read back critical infor sebas 03/17/20 6204 LAB.MCNRO SGOT(AST) 86 U/L 15-37 Above high normal [facility] ospital Note the following drug interference: Sulfasalazine Sulfapyridine Can see falsely depressed Can see falsely elevated result with up to 10% results with up to 10% decrease in measurement increase in measurement Recommend patients be collected for this test prior to administration of either drug. SGPT(ALT) 26 U/L 12-78 Normal (applies to non-numeric resul ts) [facility] Note the following drug interference: Sulfasalazine Sulfapyridine Can see falsely depressed Can see falsely elevated result with up to 29% results with up to 10% decrease in measurement increase in measurement Recommend patients be collected for this test prior to administration of either drug. Alkaline Phosphatase 163 U/L 38-126 Above high normal [facility] can increase Alkaline Phosp le vels up to 2 times the normal adult value. Normal values for children and adolescents are 2 to 3 times the normal adult value. Total Protein 6.0-8.2 Normal (applies to non-numeric re sults) [facility] Albumin Level 3.4-5.0 Below low normal [facility] ID Date Data Source [id number] 03/17/2020 05:29:[address] [facility] Name Value Range Interpretation Code Description Data Julia rce(s) Supporting Document(s) Magnesium 1.8-2.4 Below low normal [facility] ID Date Data Source [id number] 03/17/2020 05:29:[address] [facility] Name Value Range Interpretation Code Description Data Julia rce(s) Supporting Document(s) Amylase 107 U/L 25-115 Normal (applies to non-numeric resul ts) [facility] ID Date Data Source [id number] 03/17/2020 05:29:[address] [facility] Name Value Range Interpretation Code Description Data Julia rce(s) Supporting Document(s) Lipase 571 U/L 73-393 Above high normal [facility] ID Date Data Source [id number] 03/17/2020 05:19:[address] [facility] Name Value Range Interpretation Code Description Data Julia rce(s) Supporting Document(s) Lactic Acid 0.4-2.0 Normal (applies to non-numeric resu lts) [facility] ID Date Data Source [id number] 03/17/2020 05:13:00 PM EDT [facility] Name Value Range Interpretation Code Description Data Julia rce(s) Supporting Document(s) PT 9.2-11.7 Above high normal [facility] ospital INR Normal (applies to non-numeric results) [facility] The use of INR is restricted to patients on stable oral anticoagulant. Therapeutic Range: 2.0 - 3.0 High Risk Range: 2.5 - 3.5 ID Date Data Source [id number] 03/17/2020 05:13:[address] [facility] Name Value Range Interpretation Code Description Data Julia rce(s) Supporting Document(s) PTT 23.8-37.9 Normal (applies to non-numeric results) [facility] ID Date Data Source [id number] 03/17/2020 04:54:[address] [facility] Name Value Range Interpretation Code Description Data Julia rce(s) Supporting Document(s) White Blood Count 3.5-10.5 Normal (applies to non-numeri c results) [facility] Red Blood Count 3.90-5.00 Below low normal [facility] Hemoglobin 12.0-15.5 Normal (applies to non-numeric resul ts) [facility] Hematocrit 34.9-44.5 Normal (applies to non-numeric resul ts) [facility] Mean Corpuscular Volume 81.2-95.1 Above high normal [facility] Mean Corpuscular Hgb 25.6-32.2 Above high normal [facility] Mean Corpuscular Hgb Conc 32.0-36.0 Normal (applies to no n-numeric results) [facility] Red Cell Distribution Width 11.9-15.5 Above high normal [facility] Platelet Count 108 x10 3/uL 150-450 Below low normal [facility] Mean Platelet Volume 9.4-12.4 Normal (applies to non-num reynaldo results) [facility] Neutrophils% (Auto) 31.0-71.0 Normal (applies to non-nume zora results) [facility] Lymphocytes% (Auto) 20.0-55.0 Below low normal [facility] Monocytes% (Auto) 4.0-12.0 Above high normal [facility] Eosinophils% (Auto) 1.0-8.0 Normal (applies to non-nume zora results) [facility] Basophils% (Auto) 0.0-2.0 Normal (applies to non-numeri c results) [facility] Immature Granulocytes% (Auto) 0.0-2.0 Normal (ivon lies to non-numeric results) [facility] Neutrophils# (Auto) 1.50-6.20 Normal (applies to non-nume zora results) [facility] Lymphocytes# (Auto) 1.20-4.00 Normal (applies to non-nume zora results) [facility] Monocytes# (Auto) 0.00-0.90 Above high normal [facility] Eosinophils# (Auto) 0.00-0.50 Normal (applies to non-nume zora results) [facility] Basophils# (Auto) 0.00-0.20 Normal (applies to non-numeri c results) [facility] Immature Granulocytes# (Auto) 0.00-7.00 No rmal (applies to non-numeric results) [facility] ID Date Data Source [id number] 03/18/2020 12:11:00 PM EDT [facility] Imaging Services Department Imaging Report [address], [place] [address] %(RAD)RES..mtdd.print.filter("line") Name: SANA SU : 1960 Age/Sex: 60F Ordering Provider: Kiel Marcos NP Med Rec #: [id number] Reg Status: [facility] ER Room #: Date of Service: 03/17/20 Report Number: [id number] cc:Kiel Marcos NP; PCP None Send Report To: [id number] US/US Duplex Lower Ext Vein Bilat Reason for exam: 4+ pedal edema Technique: Ultrasound imaging performed using color flow and spectral Doppler interrogation. FINDINGS: There is normal compressibility of the deep venous system from the external iliac through the popliteal vein with normal augmentation identified. There is a nonvascular collection in the right popliteal fossa measuring 5.6 x 1.3 x 1.7 cm consistent with a Lewis's cyst. IMPRESSION: NO EVIDENCE FOR ANY UNDERLYING DVT. RIGHT POPLITEAL LEWIS'S CYST. REPORT SIGNATURE ON FILE Reported By: Mat Villanueva DO <Electronically signed by Mat Villanueva DO> 03/19/20 1208 Dictation Date/Time: 03/17/20 1800 Transcribed Date/Time: 03/18/20 1211 Car Greaser: REMY Name Value Range Interpretation Code Description Data Julia rce(s) Supporting Document(s) ID Date Data Source [id number] 03/17/2020 04:39:00 PM EDT [facility] Imaging Services Department Imaging Report [address] [address] %(RAD)RES..mtdd.print.filter("line") Name: SANA SU : 1960 Age/Sex: 60F Ordering Provider: Kiel Marcos NP Med Rec #: [id number] Reg Status: [facility] ER Room #: Date of Service: 03/17/20 Report Number: [id number] cc:PCP None Send Report To: [id number] CT/CT Abdomen & Pelvis No Contras Reason for exam: Ascites No prior exam is available for comparison. FINDINGS: Visualized lower lungs clear of infiltrate. Cirrhotic appearing liver with lobulated contour. Gallbladder is collapsed and limitedly evaluated. Pancreas and spleen are unremarkable. Adrenal glands and kidneys unremarkable. No renal stones or hydronephrosis. Ureters unremarkable. No aneurysmal dilatation to the aorta. No significant retroperitoneal adenopathy. Moderate to large ascites. Uterus not visualized. No adnexal mass. No bowel obstruction. No free air. Edematous changes to the subcutaneous tissues of the abdominal wall. IMPRESSION: Moderate to large ascites. No bowel obstruction. Cirrhotic liver. Subcutaneous edema. While performing the above CT exam, the following dose reduction techniques wereused: *Automated exposure control *Adjustment of the mA and/or kV according to patient size *Use of iterative reconstruction technique CT Dose in mGy: Contrast Agent: Amount in ml: Method of Administration: REPORT SIGNATURE ON FILE Reported By: Mat Villanueva, <Electronically signed by Mat Villanueva DO> 03/19/20 1208 Dictation Date/Time: 03/17/20 1638 Transcribed Date/Time: 03/17/20 1639 Car Greaser: REMY Name Value Range Interpretation Code Description Data Julia rce(s) Supporting Document(s) ID Date Data Source [id number] 01/17/2020 11:14:00 AM EDT CHARTMAKER ([facility]) ABDOMEN INDICATION: Pain COMPARISON: None TECHNIQUE: AP supine views of the abdomen were obtained. FINDINGS: Moderate stool in the colon. No dilated bowel. No evidence of free air or free fluid. No abnormal soft tissue mass lesions are identified. There are no pathological calcifications. IMPRESSION: Moderate stool in the colon, no dilated bowel Professional interpretation performed by [facility] Medical Imaging at [facility] Name Value Range Interpretation Code Description Data Julia rce(s) Supporting Document(s) ID Date Data Source [id number] 01/17/2020 12:00:00 AM EDT CHARTMAKER ([facility]) Name Value Range Interpretation Code Description Data Julia rce(s) Supporting Document(s) BASO # 0.1 10*3/uL BASO #: 0.1 10*3/uL 01/16 CHARTMAKER ([facility]) ID Date Data Source [id number] 01/17/2020 12:00:00 AM EDT CHARTMAKER ([facility]) Name Value Range Interpretation Code Description Data Julia rce(s) Supporting Document(s) EOS # 0.1 10*3/uL EOS #: 0.1 10*3/uL 2019 CHARTMAKER ([facility]) ID Date Data Source [id number] 01/17/2020 12:00:00 AM EDT CHARTMAKER ([facility]) Name Value Range Interpretation Code Description Data Julia rce(s) Supporting Document(s) MONO # 0.8 10*uL MONO #: 0.8 10*3/uL 01/16 CHARTMAKER ([facility]) ID Date Data Source [id number] 01/17/2020 12:00:00 AM EDT CHARTMAKER ([facility]) Name Value Range Interpretation Code Description Data Julia rce(s) Supporting Document(s) LYMPH # 1.2 10*uL LYMPH #: 1.2 10*3/uL 01/17/2020 CHARTMAKER ([facility]) ID Date Data Source [id number] 01/17/2020 12:00:00 AM EDT [facility]ARTMAKER ([facility]) Name Value Range Interpretation Code Description Data Julia rce(s) Supporting Document(s) NEUT # 3.8 10*3uL NEUT #: 3.8 10*3/uL 01/16 CHARTMAKER ([facility]) ID Date Data Source [id number] 01/17/2020 12:00:00 AM EDT CHARTMAKER ([facility]) Name Value Range Interpretation Code Description Data Julia rce(s) Supporting Document(s) BASO % 1.3 % BASO %: 1.3 % 01/17/2020 CHARTM JOAQUIN ([facility]) ID Date Data Source [id number] 01/17/2020 12:00:00 AM EDT CHARTMAKER ([facility]) Name Value Range Interpretation Code Description Data Julia rce(s) Supporting Document(s) EOS % 1.8 % EOS %: 1.8 % 01/17/2020 CHARTMA KER ([facility]) ID Date Data Source [id number] 01/17/2020 12:00:00 AM EDT CHARTMAKER ([facility]) Name Value Range Interpretation Code Description Data Julia rce(s) Supporting Document(s) MONO % 13.4 % MONO %: 13.4 % 01/17/2020 CHART MAKER ([facility]) ID Date Data Source [id number] 01/17/2020 12:00:00 AM EDT CHARTMAKER ([facility]) Name Value Range Interpretation Code Description Data Julia rce(s) Supporting Document(s) LYMPH % 19.7 % LYMPH %: 19.7 % 01/17/2020 AURELIA TMAKER ([facility]) ID Date Data Source [id number] 01/17/2020 12:00:00 AM EDT CHARTMAKER ([facility]) Name Value Range Interpretation Code Description Data Julia rce(s) Supporting Document(s) NEUT % 63.8 % NEUT %: 63.8 % 01/17/2020 CHART MAKER ([facility]) ID Date Data Source [id number] 01/17/2020 12:00:00 AM EDT CHARTMAKER ([facility]) Name Value Range Interpretation Code Description Data Julia rce(s) Supporting Document(s) MPV 9.2 fL MPV: 9.2 fL 01/17/2020 CHARTMAK ER ([facility]) ID Date Data Source [id number] 01/17/2020 12:00:00 AM EDT CHARTMAKER ([facility]) Name Value Range Interpretation Code Description Data Julia rce(s) Supporting Document(s) PLT 119 10*3/uL PLT: 119 10*3/uL 01/17/2020 C HARTMAKER ([facility]) ID Date Data Source [id number] 01/17/2020 12:00:00 AM EDT CHARTMAKER ([facility]) Name Value Range Interpretation Code Description Data Julia rce(s) Supporting Document(s) RDW 16.7 % RDW: 16.7 % 01/17/2020 CHARTMAK ER ([facility]) ID Date Data Source [id number] 01/17/2020 12:00:00 AM EDT CHARTMAKER ([facility]) Name Value Range Interpretation Code Description Data Julia rce(s) Supporting Document(s) MCHC 34.5 g/dL MCHC: 34.5 g/dL 01/17/2020 AURELIA TMAKER ([facility]) ID Date Data Source [id number] 01/17/2020 12:00:00 AM EDT CHARTMAKER ([facility]) Name Value Range Interpretation Code Description Data Julia rce(s) Supporting Document(s) MCH 35.5 pg MCH: 35.5 pg 01/17/2020 CHARTMA KER ([facility]) ID Date Data Source [id number] 01/17/2020 12:00:00 AM EDT CHARTMAKER ([facility]) Name Value Range Interpretation Code Description Data Julia rce(s) Supporting Document(s) MCV 102.9 fL MCV: 102.9 fL 01/17/2020 CHARTM JOAQUIN ([facility]) ID Date Data Source [id number] 01/17/2020 12:00:00 AM EDT CHARTMAKER ([facility]) Name Value Range Interpretation Code Description Data Julia rce(s) Supporting Document(s) HCT 34.5 % HCT: 34.5 % 01/17/2020 CHARTMAK ER ([facility]) ID Date Data Source [id number] 01/17/2020 12:00:00 AM EDT CHARTMAKER ([facility]) Name Value Range Interpretation Code Description Data Julia rce(s) Supporting Document(s) HGB 11.9 g/dL HGB: 11.9 g/dL 01/17/2020 CHART MAKER ([facility]) ID Date Data Source [id number] 01/17/2020 12:00:00 AM EDT CHARTMAKER ([facility]) Name Value Range Interpretation Code Description Data Julia rce(s) Supporting Document(s) RBC 3.36 10*6/uL RBC: 3.36 10*6/uL 2019 CHARTMAKER ([facility]) ID Date Data Source [id number] 01/17/2020 12:00:00 AM EDT CHARTMAKER ([facility]) Name Value Range Interpretation Code Description Data Julia rce(s) Supporting Document(s) WBC 5.9 10*3/uL WBC: 5.9 10*3/uL 01/17/2020 C JAIMIEDCKER ([facility]) ID Date Data Source [id number] 01/17/2020 12:00:00 AM EDT CHARTMAKER ([facility]) Name Value Range Interpretation Code Description Data Julia rce(s) Supporting Document(s) GFR ( AMER) >60 GFR ( AMER ): >60 01/17/2020 CHARTMAKER ([facility]) ID Date Data Source [id number] 01/17/2020 12:00:00 AM EDT CHARTMAKER ([facility]) Name Value Range Interpretation Code Description Data Julia rce(s) Supporting Document(s) GFR >60 GFR : >60 01/17/2020 CHARTMAKER ([facility]) ID Date Data Source [id number] 01/17/2020 12:00:00 AM EDT CHARTMAKER ([facility]) Name Value Range Interpretation Code Description Data Julia rce(s) Supporting Document(s) ALT (SGPT) 32 U/L ALT (SGPT): 32 U/L 020 CHARTMAKER ([facility]) ID Date Data Source [id number] 01/17/2020 12:00:00 AM EDT CHARTMAKER ([facility]) Name Value Range Interpretation Code Description Data Julia rce(s) Supporting Document(s) AST (SGOT) 86 U/L AST (SGOT): 86 U/L 020 CHARTMAKER ([facility]) ID Date Data Source [id number] 01/17/2020 12:00:00 AM EDT CHARTMAKER ([facility]) Name Value Range Interpretation Code Description Data Julia rce(s) Supporting Document(s) BILIRUBIN,TOTAL 4.4 mg/dL BILIRUBIN,TOTAL: 4. 4 mg/dL 01/17/2020 CHARTMAKER ([facility]) ID Date Data Source [id number] 01/17/2020 12:00:00 AM EDT CHARTMAKER ([facility]) Name Value Range Interpretation Code Description Data Julia rce(s) Supporting Document(s) ALKALINE PHOSPHATASE 175 U/L ALKALINE PHOSPH ATASE: 175 U/L 01/17/2020 CHARTMAKER ([facility]) ID Date Data Source [id number] 01/17/2020 12:00:00 AM EDT CHARTMAKER ([facility]) Name Value Range Interpretation Code Description Data Julia rce(s) Supporting Document(s) ALB/GLOB RATIO 0.5 RATIO ALB/GLOB RATIO: 0.5 RATIO 01/17/2020 CHARTMAKER ([facility]) ID Date Data Source [id number] 01/17/2020 12:00:00 AM EDT CHARTMAKER ([facility]) Name Value Range Interpretation Code Description Data Julia rce(s) Supporting Document(s) GLOBULIN 4.6 g/dL GLOBULIN: 4.6 g/dL 020 CHARTMAKER ([facility]) ID Date Data Source [id number] 01/17/2020 12:00:00 AM EDT CHARTMAKER ([facility]) Name Value Range Interpretation Code Description Data Julia rce(s) Supporting Document(s) ALBUMIN 2.3 g/dL ALBUMIN: 2.3 g/dL 01/17/20 20 CHARTMAKER ([facility]) ID Date Data Source [id number] 01/17/2020 12:00:00 AM EDT CHARTMAKER ([facility]) Name Value Range Interpretation Code Description Data Julia rce(s) Supporting Document(s) TOTAL PROTEIN 6.9 g/dL TOTAL PROTEIN: 6.9 g/ dL 01/17/2020 CHARTMAKER ([facility]) ID Date Data Source [id number] 01/17/2020 12:00:00 AM EDT CHARTMAKER ([facility]) Name Value Range Interpretation Code Description Data Julia rce(s) Supporting Document(s) CALCIUM 8.4 mg/dL CALCIUM: 8.4 mg/dL 020 CHARTMAKER ([facility]) ID Date Data Source [id number] 01/17/2020 12:00:00 AM EDT CHARTMAKER ([facility]) Name Value Range Interpretation Code Description Data Julia rce(s) Supporting Document(s) Glucose [Mass/volume] in Serum or Plasma 97 mg/dL Glucose: 97 mg/dL 01/17/2020 CHARTMAKER ([facility]) ID Date Data Source [id number] 01/17/2020 12:00:00 AM EDT CHARTMAKER ([facility]) Name Value Range Interpretation Code Description Data Julia rce(s) Supporting Document(s) BUN/CREAT RATIO 15.4 RATIO BUN/CREAT RATIO: 15 .4 RATIO 01/17/2020 CHARTMAKER ([facility]) ID Date Data Source [id number] 01/17/2020 12:00:00 AM EDT CHARTMAKER ([facility]) Name Value Range Interpretation Code Description Data Julia rce(s) Supporting Document(s) Creatinine 0.52 mg/dL Creatinine: 0.52 mg/dL CHARTMAKER ([facility]) ID Date Data Source [id number] 01/17/2020 12:00:00 AM EDT CHARTMAKER ([facility]) Name Value Range Interpretation Code Description Data Julia rce(s) Supporting Document(s) UREA NITROGEN 8 mg/dL UREA NITROGEN: 8 mg/d L 01/17/2020 CHARTMAKER ([facility]) ID Date Data Source [id number] 01/17/2020 12:00:00 AM EDT CHARTMAKER ([facility]) Name Value Range Interpretation Code Description Data Julia rce(s) Supporting Document(s) ANION GAP 3 mmol/L ANION GAP: 3 mmol/L 2019 CHARTMAKER ([facility]) ID Date Data Source [id number] 01/17/2020 12:00:00 AM EDT CHARTMAKER ([facility]) Name Value Range Interpretation Code Description Data Julia rce(s) Supporting Document(s) CO2 33 mmol/L CO2: 33 mmol/L 01/17/2020 CHART MAKER ([facility]) ID Date Data Source [id number] 01/17/2020 12:00:00 AM EDT CHARTMAKER ([facility]) Name Value Range Interpretation Code Description Data Julia rce(s) Supporting Document(s) CHLORIDE 99 mmol/L CHLORIDE: 99 mmol/L 2019 CHARTMAKER ([facility]) ID Date Data Source [id number] 01/17/2020 12:00:00 AM EDT CHARTMAKER ([facility]) Name Value Range Interpretation Code Description Data Julia rce(s) Supporting Document(s) Potassium 3.6 mmol/L Potassium: 3.6 mmol/L 01/17/2020 CHARTMAKER ([facility]) ID Date Data Source [id number] 01/17/2020 12:00:00 AM EDT CHARTMAKER ([facility]) Name Value Range Interpretation Code Description Data Julia rce(s) Supporting Document(s) SODIUM 135 mmol/L SODIUM: 135 mmol/L 020 CHARTMAKER ([facility]) Procedure Social History Code Duration Value Status Description Data Source(s ) Smoking 01/17/2020 12:00:00 AM EDT Smoker, current status unkn own completed Smoker, current status unknown CHARTMAKER ([facility]) Vital Signs ID Date Data Source UNK Name Value Range Interpretation Code Description Data Source(s) Body height 61 [in_i] 61 [in_i] LENNOX ([facility]) Body height 61 [in_i] 61 [in_i] LENNOX ([facility]) Body height 61 [in_i] 61 [in_i] LENNOX ([facility]) Body weight 2384 [oz_av] 2384 [oz_av] LENNOX ([facility]) Systolic blood pressure 113 mm[Hg] 113 mm[Hg] A [facility] ([facility]) Body mass index (BMI) [Ratio] 28.2 kg/m2 28.2 k g/m2 LENNOX ([facility]) Body height 61 [in_i] 61 [in_i] [place] ([facility]) Diastolic blood pressure 75 mm[Hg] 75 mm[Hg] [place]X ([facility]) Body weight 2384 [oz_av] 2384 [oz_av] [facility] ([facility]) Systolic blood pressure 113 mm[Hg] 113 mm[Hg] A [facility] ([facility]) Body mass index (BMI) [Ratio] 28.2 kg/m2 28.2 k g/m2 LENNOX ([facility]) Body height 61 [in_i] 61 [in_i] [place] ([facility]) Diastolic blood pressure 75 mm[Hg] 75 mm[Hg] [place] ([facility]) Body weight 2384 [oz_av] 2384 [oz_av] [facility] ([facility]) Systolic blood pressure 113 mm[Hg] 113 mm[Hg] A [facility] ([facility]) Body mass index (BMI) [Ratio] 28.2 kg/m2 28.2 k g/m2 LEN[place]X ([facility]) Body height 61 [in_i] 61 [in_i] [place]X ([facility]) Diastolic blood pressure 75 mm[Hg] 75 mm[Hg] [place] ([facility]) Body weight 2448 [oz_av] 2448 [oz_av] [facility] ([facility]) Systolic blood pressure 127 mm[Hg] 127 mm[Hg] A [facility] ([facility]) Body mass index (BMI) [Ratio] 28.9 kg/m2 28.9 k g/m2 [place]X ([facility]) Body height 61 [in_i] 61 [in_i] [place] ([facility]) Diastolic blood pressure 80 mm[Hg] 80 mm[Hg] [place] ([facility]) Body weight 2448 [oz_av] 2448 [oz_av] [place] ([facility]) Systolic blood pressure 127 mm[Hg] 127 mm[Hg] A THENA ([facility]) Body mass index (BMI) [Ratio] 28.9 kg/m2 28.9 k g/m2 [place]X ([facility]) Body height 61 [in_i] 61 [in_i] [place] ([facility]) Diastolic blood pressure 80 mm[Hg] 80 mm[Hg] [place] ([facility]) Body weight 2448 [oz_av] 2448 [oz_av] [place] ([facility]) Systolic blood pressure 127 mm[Hg] 127 mm[Hg] A THENA ([facility]) Body mass index (BMI) [Ratio] 28.9 kg/m2 28.9 k g/m2 L[place]X ([facility]) Body height 61 [in_i] 61 [in_i] [place] ([facility]) Diastolic blood pressure 80 mm[Hg] 80 mm[Hg] [place] ([facility]) Body weight 2448 [oz_av] 2448 [oz_av] [facility] ([facility]) Systolic blood pressure 127 mm[Hg] 127 mm[Hg] [facility] Body mass index (BMI) [Ratio] 28.9 kg/m2 28.9 k g/m2 [place] ([facility]) Body height 61 [in_i] 61 [in_i] [place] ([facility]) Diastolic blood pressure 80 mm[Hg] 80 mm[Hg] [place] ([facility]) Body weight 2627.2 [oz_av] 2627.2 [oz_av] ATHEN A ([facility]) Systolic blood pressure 108 mm[Hg] 108 mm[Hg] A [facility] ([facility]) Body height 61 [in_i] 61 [in_i] LENNOX ([facility]) Diastolic blood pressure 71 mm[Hg] 71 mm[Hg] [place] ([facility]) Body weight 2627.2 [oz_av] 2627.2 [oz_av] ATHEN A ([facility]) Systolic blood pressure 108 mm[Hg] 108 mm[Hg] A [facility] ([facility]) Body height 61 [in_i] 61 [in_i] LENNOX ([facility]) Diastolic blood pressure 71 mm[Hg] 71 mm[Hg] [place] ([facility]) Body weight 2627.2 [oz_av] 2627.2 [oz_av] ATHEN A ([facility]) Systolic blood pressure 108 mm[Hg] 108 mm[Hg] [facility] Body height 61 [in_i] 61 [in_i] LENNOX ([facility]) Diastolic blood pressure 71 mm[Hg] 71 mm[Hg] [place] ([facility]) Body weight 2627.2 [oz_av] 2627.2 [oz_av] ATHEN A ([facility]) Systolic blood pressure 108 mm[Hg] 108 mm[Hg] A [facility] ([facility]) Body height 61 [in_i] 61 [in_i] LENNOX ([facility]) Diastolic blood pressure 71 mm[Hg] 71 mm[Hg] [place] ([facility]) Body weight 74.844 kg 74.844 kg [facility] ([facility], ) Body mass index (BMI) [Ratio] 31.2 kg/m2 31.2 k g/m2 [facility] ([facility]) Body weight 165.00 [lb_av] 165.00 [lb_av] JOEEN T ([facility], ) Body height 61 [in_i] 61 [in_i] DONNA ([facility], ) 5'1" Diastolic blood pressure 68 mm[Hg] 68 mm[Hg] [facility] ([facility]) Systolic blood pressure 128 mm[Hg] 128 mm[Hg] M PRISCILLA ([facility], ) Body weight 2596 [oz_av] 2596 [oz_av] LENNOX ([facility]) Systolic blood pressure 101 mm[Hg] 101 mm[Hg] A [facility] ([facility]) Body height 61 [in_i] 61 [in_i] LENNOX ([facility]) Diastolic blood pressure 70 mm[Hg] 70 mm[Hg] [place] ([facility]) Body weight 2596 [oz_av] 2596 [oz_av] [facility] ([facility]) Systolic blood pressure 101 mm[Hg] 101 mm[Hg] A [facility] ([facility]) Body height 61 [in_i] 61 [in_i] L[place]NOX ([facility]) Diastolic blood pressure 70 mm[Hg] 70 mm[Hg] [place] ([facility]) Body weight 2596 [oz_av] 2596 [oz_av] [facility] ([facility]) Systolic blood pressure 101 mm[Hg] 101 mm[Hg] A [facility] ([facility]) Body height 61 [in_i] 61 [in_i] [place]X ([facility]) Diastolic blood pressure 70 mm[Hg] 70 mm[Hg] [place] ([facility]) Body weight 2596 [oz_av] 2596 [oz_av] [facility] ([facility]) Systolic blood pressure 101 mm[Hg] 101 mm[Hg] [facility] Body height 61 [in_i] 61 [in_i] [place]X ([facility]) Diastolic blood pressure 70 mm[Hg] 70 mm[Hg] [place] ([facility]) Body weight 77.112 kg 77.112 kg [facility], [facility] Body mass index (BMI) [Ratio] 32.1 kg/m2 32.1 k g/m2 [facility] Body weight 170.00 [lb_av] 170.00 [lb_av] MEDEN T ([facility]) Body height 61 [in_i] 61 [in_i] [facility] 5'1" Body weight 81.648 kg 81.648 kg [facility] ([facility]) Body mass index (BMI) [Ratio] 34.0 kg/m2 34.0 k g/m2 [facility] ([facility]) Body weight 180.00 [lb_av] 180.00 [lb_av] MEDEN T ([facility]) Body height 61 [in_i] 61 [in_i] [facility] 5'1" Diastolic blood pressure 64 mm[Hg] 64 mm[Hg] [facility] ([facility]) Systolic blood pressure 118 mm[Hg] 118 mm[Hg] M VIVEKJEANNIE ([facility], ) Body weight 2752 [oz_av] 2752 [oz_av] LENNOX ([facility]) Systolic blood pressure 121 mm[Hg] 121 mm[Hg] A THENA ([facility]) Body height 61 [in_i] 61 [in_i] L[place]NOX ([facility]) Diastolic blood pressure 78 mm[Hg] 78 mm[Hg] [facility] ([facility]) Body weight 2752 [oz_av] 2752 [oz_av] [facility] ([facility]) Systolic blood pressure 121 mm[Hg] 121 mm[Hg] A THENA ([facility]) Body height 61 [in_i] 61 [in_i] LENNOX ([facility]) Diastolic blood pressure 78 mm[Hg] 78 mm[Hg] [facility] ([facility]) Body weight 2752 [oz_av] 2752 [oz_av] [facility] ([facility]) Systolic blood pressure 121 mm[Hg] 121 mm[Hg] [facility] Body height 61 [in_i] 61 [in_i] [place] ([facility]) Diastolic blood pressure 78 mm[Hg] 78 mm[Hg] [facility] ([facility]) Body weight 2752 [oz_av] 2752 [oz_av] [facility] ([facility]) Systolic blood pressure 121 mm[Hg] 121 mm[Hg] [facility] Body height 61 [in_i] 61 [in_i] [place]X ([facility]) Diastolic blood pressure 78 mm[Hg] 78 mm[Hg] [place] ([facility]) Body weight 3286.08 [oz_av] 3286.08 [oz_av] ATH KIM ([facility]) Systolic blood pressure 131 mm[Hg] 131 mm[Hg] [facility] Body height 61 [in_i] 61 [in_i] LENNOX ([facility]) Diastolic blood pressure 80 mm[Hg] 80 mm[Hg] [place] ([facility]) Body weight 3286.08 [oz_av] 3286.08 [oz_av] ATH KIM ([facility]) Systolic blood pressure 131 mm[Hg] 131 mm[Hg] [facility] Body height 61 [in_i] 61 [in_i] LENNOX ([facility]) Diastolic blood pressure 80 mm[Hg] 80 mm[Hg] [place] ([facility]) Body weight 3286.08 [oz_av] 3286.08 [oz_av] ATH KIM ([facility]) Systolic blood pressure 131 mm[Hg] 131 mm[Hg] [facility] Body height 61 [in_i] 61 [in_i] [place]X ([facility]) Diastolic blood pressure 80 mm[Hg] 80 mm[Hg] [place] ([facility]) Body weight 3286.08 [oz_av] 3286.08 [oz_av] ATH KIM ([facility]) Systolic blood pressure 131 mm[Hg] 131 mm[Hg] A THENA ([facility]) Body height 61 [in_i] 61 [in_i] LENNOX ([facility]) Diastolic blood pressure 80 mm[Hg] 80 mm[Hg] [place] ([facility]) Inhaled oxygen concentration 21 % 21 % CHARTMAKER ([facility]) Oxygen saturation in Arterial blood by Pulse oximetry 97 % 97 % CHARTMAKER ([facility]) Body mass index (BMI) [Ratio] 35.6977990281779 kg/m2 35.0883985480778 kg/m2 [facility] ([facility]) Body weight 189 [lb_av] 189 [lb_av] [facility] ([facility]) Body height 61 [in_i] 61 [in_i] [facility] ([facility]) Diastolic blood pressure 78 mm[Hg] 78 mm[Hg] [facility]MAK[facility] ([facility]) Systolic blood pressure 128 mm[Hg] 128 mm[Hg] C HARTMAKER ([facility]) Respiratory rate 16 /min 16 /min CHARTMAK ER ([facility]) Heart rate 95 /min 95 /min [facility] ([facility]) Body temperature 99.2 [degF] 99.2 [degF] DAMEON NUÑEZ ([facility]) ID Date Data Source [id number] 03/26/2020 03:10:00 PM EDT [facility] Name Value Range Interpretation Code Description Data Source(s) Weight Measurement Method 1 1 [facility] Weight (Calculated Kilograms) 93.44 93.44 [facility] Weight 3358.4 3358.4 [facility] Temperature Source 7 7 [facility] Temperature 99 99 [facility] Respiratory Effort 1 1 [facility] Respiratory Rate 18 18 [facility] Pulse Assessment Method 4 4 [facility] Pulse Rate 118 118 [facility] Height (Calculated Centimeters) 154.94 154. 94 [facility] Height 61 61 [facility] Blood Pressure 133/88 133/88 [facility] Body Mass Index (BMI) 38.9 38.9 [facility] Weight Measurement Method 1 1 [facility] Weight (Calculated Kilograms) 93.44 93.44 [facility] Weight 3358.4 3358.4 [facility] Temperature Source 7 7 [facility] Temperature 99 99 [facility] Respiratory Effort 1 1 [facility] Respiratory Rate 18 18 [facility] Pulse Assessment Method 4 4 [facility] Pulse Rate 118 118 [facility] Height (Calculated Centimeters) 154.94 154. 94 [facility] Height 61 61 [facility] Blood Pressure 133/88 133/88 [facility] Body Mass Index (BMI) 38.9 38.9 [facility] Weight Measurement Method 1 1 [facility] Weight (Calculated Kilograms) 93.44 93.44 [facility] Weight 3358.4 3358.4 [facility] Temperature Source 7 7 [facility] Temperature 99 99 [facility] Respiratory Effort 1 1 [facility] Respiratory Rate 18 18 [facility] Pulse Assessment Method 4 4 [facility] Pulse Rate 118 118 [facility] Height (Calculated Centimeters) 154.94 154. 94 [facility] Height 61 61 [facility] Blood Pressure 133/88 133/88 [facility] Body Mass Index (BMI) 38.9 38.9 [facility] Weight Measurement Method 1 1 [facility] Weight (Calculated Kilograms) 93.44 93.44 [facility] Weight 3152 3152 [facility] Temperature Source 7 7 [facility] Temperature 98.6 98.6 [facility] Respiratory Effort 1 1 [facility] Respiratory Rate 20 20 [facility] Pulse Assessment Method 4 4 [facility] Pulse Rate 122 122 [facility] Height (Calculated Centimeters) 154.94 154. 94 [facility] Height 61 61 [facility] Blood Pressure 97/61 97/61 [facility] Body Mass Index (BMI) 38.9 38.9 [facility] Weight Measurement Method 1 1 [facility] Weight (Calculated Kilograms) 93.44 93.44 [facility] Weight 3128 3128 [facility] Temperature Source 7 7 [facility] Temperature 98.9 98.9 [facility] Respiratory Effort 1 1 [facility] Respiratory Rate 20 20 [facility] Pulse Assessment Method 4 4 C [facility] Pulse Rate 118 118 [facility] Height (Calculated Centimeters) 154.94 154. 94 [facility] Height 61 61 [facility] Blood Pressure 88/52 88/52 [facility] Body Mass Index (BMI) 38.9 38.9 [facility] Weight Measurement Method 1 1 [facility] Weight (Calculated Kilograms) 93.44 93.44 [facility] Weight 3296 3296 [facility] Temperature Source 7 7 [facility] Temperature 98.2 98.2 [facility] Respiratory Rate 16 16 [facility] Pulse Assessment Method 4 4 C [facility] Pulse Rate 130 130 [facility] Height (Calculated Centimeters) 154.94 154. 94 [facility] Height 61 61 [facility] Blood Pressure 104/66 104/66 [facility] Body Mass Index (BMI) 38.9 38.9 [facility] ID Date Data Source [id number] 03/19/2020 12:09:00 PM EDT [facility] Name Value Range Interpretation Code Description Data Source(s) Weight Measurement Method 8 8 [facility] Weight 3360 3360 [facility] Temperature Source 1 1 [facility] Temperature 98.8 98.8 [facility] sp[facility] Respiratory Effort 1 1 [facility] Respiratory Rate 16 16 [facility] Pulse Assessment Method 4 4 G [facility] Pulse Rate 107 107 [facility] Height 61 61 [facility] Blood Pressure 136/99 136/99 [facility] Weight Measurement Method 8 8 [facility] Weight 3360 3360 [facility] pital Temperature Source 7 7 [facility] Temperature 99.0 99.0 [facility] Respiratory Effort 1 1 [facility] Respiratory Rate 18 18 [facility] Pulse Assessment Method 4 4 G [facility] Pulse Rate 105 105 [facility] pital Height 61 61 [facility] pital Blood Pressure 138/105 138/105 [facility] Patient Treatment Plan of Care Planned Activity Planned Date Details Description Data Source (s) zaleplon 5 MG Oral Capsule A THENA ([facility]) venlafaxine 37.5 MG Oral Tablet LENNOX ([facility]) torsemide 20 MG Oral Tablet LENNOX ([facility]) Spironolactone 25 MG Oral Tablet LENNOX ([facility]) Shingrix (PF) 50 mcg/0.5 mL [facility] Lactulose 667 MG/ML Oral Solution LENNOX ([facility]) Lactulose 667 MG/ML Oral Solution LENNOX ([facility]) Furosemide 40 MG Oral Tablet LENNOX ([facility]) Furosemide 20 MG Oral Tablet LENNOX ([facility]) Fluzone Quad 60 mcg (15 mcg x 4)/0.5 mL intramuscular susp. INJECT INTO THE LEFT ARM DIRECTED AT [facility]) [facility]fl[facility] 500 [facility] Cephalexin 500 MG Oral Capsule LENNOX ([facility]) zaleplon 5 MG Oral Capsule A THENA [facility]) [facility]actone 25 [facility] Lactulose 667 MG/ML Oral Solution LENNOX [facility]) Furosemide 20 MG Oral Tablet LENNOX ([facility]) Fluzone Quad 60 mcg (15 mcg x 4)/0.5 mL intramuscular susp. INJECT INTO THE LEFT ARM DIRECTED AT [facility]) [facility]phalexin 500 [facility] zaleplon 5 MG Oral Capsule A THENA [facility]) Spironolactone 25 MG Oral Tablet LENNOX ([facility]) Lactulose 667 MG/ML [facility] Fluzone Quad 60 mcg (15 mcg x 4)/0.5 mL intramuscular susp. INJECT INTO THE LEFT ARM DIRECTED AT NORY ([facility]) Cephalexin 500 MG Oral Capsule LENNOX ([facility]) zaleplon 5 MG Oral Capsule A KOJO ([facility]) Spironolactone 25 MG Oral Tablet LENNOX ([facility]) Lactulose 667 MG/ML Oral Solution LENNOX ([facility]) Furosemide 20 MG Oral Tablet LENNOX ([facility])
[2020-11-14] MEDS ORDERED: CIPR500T3 PO (21:46)
--- OUTSIDE RECORDS SUMMARY | 2020-11-14 22:45 | CCD ---
Author Author [facility] Organization [facility] Address Unknown Phone Unavailable Care Team Providers Care Assayer Name Role Phone STEVENS, W KAILA PA [...] Hathaway PA Unavailable Unavailable Cougler, S Kiel ASSURANCE SENIOR MANAGER Unavailable Unavailable Cougler, S Kiel ASSURANCE SENIOR MANAGER Unavailable Unavailable Cougler, S Kiel ASSURANCE SENIOR MANAGER Unavailable Unavailable Cougler, S Kiel ASSURANCE SENIOR MANAGER Unavailable Unavailable Cougler, S Kiel ASSURANCE SENIOR MANAGER Unavailable Unavailable Cougler, S Kiel ASSURANCE SENIOR MANAGER Unavailable Unavailable Cougler, S Kiel ASSURANCE SENIOR MANAGER Unavailable Unavailable Cougler, S Kiel ASSURANCE SENIOR MANAGER Unavailable Unavailable Cougler, S Kiel ASSURANCE SENIOR MANAGER Unavailable Unavailable Cougler, S Kiel ASSURANCE SENIOR MANAGER Unavailable Unavailable Cougler, S Kiel ASSURANCE SENIOR MANAGER Unavailable Unavailable Cougler, S Kiel ASSURANCE SENIOR MANAGER Unavailable Unavailable Cougler, S Kiel ASSURANCE SENIOR MANAGER Unavailable Unavailable Cougler, S Kiel ASSURANCE SENIOR MANAGER Unavailable Unavailable Cougler, S Kiel ASSURANCE SENIOR MANAGER Unavailable Unavailable Cougler, S Kiel ASSURANCE SENIOR MANAGER Unavailable Unavailable Cougler, S Kiel ASSURANCE SENIOR MANAGER Unavailable Unavailable Cougler, S Kiel ASSURANCE SENIOR MANAGER Unavailable Unavailable Cougler, S Kiel ASSURANCE SENIOR MANAGER Unavailable Unavailable Cougler, S Kiel ASSURANCE SENIOR MANAGER Unavailable Unavailable Cougler, S Kiel ASSURANCE SENIOR MANAGER Unavailable Unavailable Cougler, S Kiel ASSURANCE SENIOR MANAGER Unavailable Unavailable Cougler, S Kiel ASSURANCE SENIOR MANAGER Unavailable Unavailable Cougler, S Kiel ASSURANCE SENIOR MANAGER Unavailable Unavailable Cougler, S Kiel ASSURANCE SENIOR MANAGER Unavailable Unavailable Cougler, S Kiel ASSURANCE SENIOR MANAGER Unavailable Unavailable Cougler, S Kiel ASSURANCE SENIOR MANAGER Unavailable Unavailable Cougler, S Kiel ASSURANCE SENIOR MANAGER Unavailable Unavailable Cougler, S Kiel ASSURANCE SENIOR MANAGER Unavailable Unavailable Cougler, S Kiel ASSURANCE SENIOR MANAGER Unavailable Unavailable Cougler, S Kiel ASSURANCE SENIOR MANAGER Unavailable Unavailable Cougler, S Kiel ASSURANCE SENIOR MANAGER Unavailable Unavailable Cougler, S Kiel ASSURANCE SENIOR MANAGER Unavailable Unavailable Cougler, S Kiel ASSURANCE SENIOR MANAGER Unavailable Unavailable Cougler, S Kiel ASSURANCE SENIOR MANAGER Unavailable Unavailable Cougler, S Kiel ASSURANCE SENIOR MANAGER Unavailable Unavailable Cougler, S Kiel ASSURANCE SENIOR MANAGER Unavailable Unavailable Cougler, S Kiel ASSURANCE SENIOR MANAGER Unavailable Unavailable Cougler, S Kiel ASSURANCE SENIOR MANAGER Unavailable Unavailable SONIYA CHENG MD Unavailable Unavailable [...] Unavailable BERRIOS, JACKIE JOE RPA-C Unavailable Unavailable BRERIOS, JACKIE JOE RPA-C Unavailable Unavailable BERRIOS, JACKIE [...] JACKIE JOE RPA-C Unavailable Unavailable BERRIOS, JACKIE OJE RPA-C Unavailable Unavailable BERRIOS, JACKIE JOE RPA-C [...] Unavailable Unavailable Shakila Tavarez MD Unavailable Unavailable [facility] DENISSE DIAZ Unavailable Unavailable [...] is protected by Article 27-F of the [facility] Public Health law. If you continue you may have access to information: Regarding HIV / AIDS; Provided by facilities licensed or operated by the [facility] Office of Mental Health; or Provided by the [facility] Office for People With Developmental Disabilities. If such information is present, then the following [facility] mandated warning applies: This information has been [...] law may result in a fine or penitentiary sentence or both. A general authorization for the release of medical or other information is NOT sufficient authorization for further disc losure. Allergies and Adverse Reactions Type Description Substance Reaction Status Data Source(s ) Allergy to substance Moderate to Severe [facility] substance Moderate to Severe [facility] Allergy to substance Moderate to Severe [facility] Allergy to substance Allergy to substance [facility] Allergy to substance Allergy to substance ramelteon [facility]) Allergy to substance Allergy to substance ramelteon [place] ([facility]) Drug allergy RAMELTEON [facility] diarrhea U [facility] Allergy to substance Allergy to substance ramelteon [place] ([facility]) Drug allergy Drug allergy No Known Allergies [facility] Drug allergy Drug allergy No Known Allergies [facility] Encounters Encounter Providers Location Date Indications Data Source(s ) Mag Scordo, PA-C: [address], [place] [address], Ph. Attender: Mag SALCEDO [facility] Medical 10/30/2020 12:00:00 AM EST [place] ([facility]) Joe Berrios RPA-C: [address], [place] [address], Ph. Attender: JOE BERRIOS RPA-C [facility] Medical 10/09/2020 12:00:00 AM EST [place] ([facility]) Joe Berrios RPA-C: [address], [place] [address], Ph. Attender: JOE BERRIOS RPA-C [facility] Medical 10/09/2020 12:00:00 AM EST [place] ([facility]) Joe Berrios RPA-C: [address], [place] [address], Ph. Attender: JOE BERRIOS RPA-C [facility] Medical 09/10/2020 12:00:00 AM EST [place] ([facility]) Joe Berrios RPA-C: [address], [place] [address], Ph. Attender: JOE BERRIOS RPA-C [facility] Medical 09/10/2020 12:00:00 AM EST [place] ([facility]) Joe Berrios RPA-C: [address], [place] [address], Ph. Attender: JOE BERRIOS RPA-C [facility] Medical 09/10/2020 12:00:00 AM EST [place] ([facility]) Joe Berrios, RPA-C: [address], [place] [address], Ph. Attender: JOE BERRIOS RPA-C [facility] Medical 08/14/2020 12:00:00 AM EST [place] ([facility]) Joe Berrios RPA-C: [address], [place] [address], Ph. Attender: JOE BERRIOS RPA-C [facility] Medical 08/14/2020 12:00:00 AM EST [place] ([facility]) Joe Berrios RPA-C: [address], [place] [address], Ph. Attender: JOE BERRIOS RPA-C [facility] Medical 08/14/2020 12:00:00 AM EST [place] ([facility]) Joe Berrios RPA-C: [address], [place] [address], Ph. Attender: JOE BERRIOS RPA-C [facility] Medical 08/14/2020 12:00:00 AM EST [place] ([facility]) Outpatient Attender: JOE BERRIOS RPA-C ALL 07/19/2020 12:00:32 AM EDT [facility] Outpatient Attender: JOSLYN MORRISON ALL 02/2020 05:29:02 PM EDT [facility] Outpatient Attender: JOSLYN MORRISON ALL 06/13 08:57:04 AM EDT [facility] Outpatient Attender: JOE BERRIOS RPA-C ALL 07/03/2020 08:57:02 AM EDT [facility] Outpatient Attender: JOSLYN MORRISON ALL 06/12 09:22:01 AM EDT [facility] Outpatient Attender: JOE BERRIOS RPA-C ALL 06/21/2020 12:00:44 AM EDT [facility] Outpatient Attender: JOE BERRIOS RPA-C ALL 06/11/2020 10:38:01 AM EDT [facility] Outpatient Attender: JOSLYN BERRIOS DENISSE JOE MORRISON ALL 05/12 12:39:01 PM EDT [facility] Outpatient Attender: JOE BERRIOS RPA-C ALL 05/11/2020 12:00:10 AM EDT [facility] Outpatient Attender: JOE BERRIOS RPA-C ALL 05/10/2020 02:36:02 PM EDT [facility] Outpatient Attender: JOSLYN BERRIOS DENISSE JOE MORRISON ALL 04/11 08:31:02 AM EDT [facility] Outpatient Attender: ZION Orellana/Naeem/Kerwin harris/Reinfabián 04/17/2020 11:40:00 AM EDT [facility] ([facility], ) Outpatient Attender: JOSLYN MORRISON ALL 10/2019 04:12:01 PM EDT [facility] Outpatient Attender: JOE BERRIOS RPA-C ALL 04/11/2020 04:11:59 PM EDT [facility] Outpatient Attender: JOE BERRIOS RPA-C ALL 04/09/2020 10:16:02 AM EDT [facility] Outpatient Attender: JOSLYN BERRIOS DENISSE JOE MORRISON ALL 03/13 05:23:01 PM EDT [facility] Outpatient Attender: JOE BERRIOS RPA-C ALL 04/06/2020 05:22:59 PM EDT [facility] Outpatient Attender: JOSLYN BERRIOS DENISSE JOE MORRISON ALL 03/13 08:59:00 AM EDT [facility] Outpatient Attender: JOE BERRIOS RPA-C ALL 03/27/2020 02:02:02 PM EDT [facility] Inpatient Attender: Soniya Spangler DAttender: SONIYA CHENG MDAttender: Hector Mcgee MDAdmitter: SONIYA CHENG MDConsultant: Bruce Pendleton-Trim PAConsultant: BRUCE SALCEDO CPSCAORT-MSU3 03/17/2020 09:06:00 PM E DT - 03/22/2020 03:09:00 PM EDT ALCOHOLISM, ASCITES [facility] ALCOHOLISM, ASCITES Patient discharged. Preadmit Attender: Gwyn Tavarez MD CPSCAORT-ED 03/17/2020 08:47:[address] [facility] Emergency Attender: Kiel Marcos ASSURANCE SENIOR MANAGER ED-ED 03/17 04:07:00 PM EDT - 03/17/2020 07:34:00 PM EDT SOB, FLUID IN ABD, SPIDER BITE RT FOOT [facility] SOB, FLUID IN ABD, SPIDER BITE RT FOOT Patient discharged. Preadmit Attender: Alvin Garber MD [id number] 03/17/2020 12:00:00 AM EDT F10.[address] [facility] F10.20 Outpatient 01/17/2020 10:54:32 AM EDT [facility] ([facility]) OutpatientOFFICE/OUTPATIENT VISIT, NEW 01/17/2020 Attender: KAILA SALCEDO 01/17/2020 09:49:17 AM EDT [facility] ([facility]) Immunizations Vaccine Date Status Description Data Source(s) New in 2012. IIV4 08/17/2020 12:00:00 AM EST completed 08/17/20 [facility]) New in 2012. IIV4 08/17/2020 12:00:00 AM EST completed 08/17/20 [facility]) New in 2012. IIV4 08/17/2020 12:00:00 AM EST completed 08/17/20 [facility]) Medications Medication Brand Name Start Date Product Form Dose Route Admi nistrative Instructions Pharmacy Instructions Status Indications Reaction Description Data Source(s) gabapentin 300 MG Oral Capsule Gabapentin 05/30/2020 12:00:00 AM EDT ORAL active [facility] Ciprofloxacin 500 MG Oral Tablet Ciprofloxacin HCL 05/30/2020 12:00 :00 AM EDT ORAL active [facility] ([facility], ) Ensure Active High Protein 05/24/2020 12:00:00 AM EDT active [facility] ([facility], ) pantoprazole 40 MG Delayed Release Oral Tablet Pantoprazole Sodium 04/24/2020 12:00:00 AM EDT active M EDENT ([facility], ) zaleplon 5 MG Oral Capsule Zaleplon 04/20/2020 12:00:00 AM EDT ORAL completed [facility] ([facility], ) Famotidine 40 MG Oral Tablet Famotidine 04/17/2020 12:00:00 AM EDT completed [facility] ([facility], ) ramelteon 8 MG Oral Tablet Ramelteon 04/17/2020 12:00:00 AM EDT completed [facility] ([facility], ) Spironolactone 100 MG Oral Tablet spironolactone 100 m g tablet spironolactone 100 mg tablet 01/17/2020 12:00:00 AM EDT 1 comp leted , Take 1 tablet orally Every day 01/17/2020 [facility] ([facility]) Furosemide 40 MG Oral Tablet [Lasix] Lasix 40 mg tablet Lasi x 40 mg tablet 01/17/2020 12:00:00 AM EDT 1 completed , Take 1 tablet orally Every day 01/17/2020 [facility] ([facility]) 100 mg 01/17/2020 12:00:00 AM [...] completed lactulose 667 MG/ML Oral Solution [facility] ([facility]) Cephalexin 500 MG Oral Capsule cephalexi n 500 mg capsule TAKE ONE CAPSULE BY MOUTH THREE TIMES A DAY cephalexin 500 mg capsule TAKE ONE CAPSU LE BY MOUTH THREE TIMES A DAY completed ceph alexin 500 MG Oral Capsule [place] ([facility]) torsemide 20 MG Oral Tablet torsemide 20 mg tablet torsemide 20 mg ta blet completed torsemide 20 MG Oral Tablet [place] ([facility]) venlafaxine 37.5 MG Oral Tablet venlafaxine 37.5 mg ta blet venlafaxine 37.5 mg tablet completed venlafaxine 37. 5 MG Oral Tablet [place] ([facility]) zaleplon 5 MG Oral Capsule zaleplon 5 mg capsule TAKE ONE CAPSULE BY MOUTH AT BEDTIME MAXIMUM DAILY DOSE 1 CAPSULE zaleplon 5 mg capsule TAKE ONE CAPSULE B Y MOUTH AT BEDTIME MAXIMUM DAILY DOSE 1 CAPSULE completed zaleplon 5 MG Oral Capsule [place] ([facility]) Shingrix (PF) 50 mcg/0.5 mL intramuscular suspension, kit [id number] completed 0.[address] virus glycoprotein E, recombinant 0.1 MG/ML Injection [Shingrix] [place] ([facility]) Ciprofloxacin 500 MG Oral Tablet ciprofloxacin 500 mg tablet ciprofloxacin 500 mg tablet completed ciprofloxaci n 500 MG Oral Tablet [place] ([facility]) Spironolactone 25 MG Oral Tablet spirono lactone 25 mg tablet TAKE ONE TABLET BY MOUTH EVERY DAY spironolactone 25 mg tablet TAKE ONE TABLET BY MOUTH E VERY DAY completed spironolactone 25 MG Oral Tablet [place] ([facility]) Furosemide 40 MG Oral Tablet furosemide 40 mg tablet TAKE 1.5 tablet QAM and 1.5 tablet QPM furosemide 40 mg tablet TAKE 1.5 tablet QAM and 1.5 tablet QPM completed furosemide 40 MG Oral Tablet [place] ([facility]) Spironolactone 25 MG Oral Tablet spirono lactone 25 mg tablet TAKE ONE TABLET BY MOUTH EVERY DAY spironolactone 25 mg tablet TAKE ONE TABLET BY MOUTH E VERY DAY completed spironolactone 25 MG Oral Tablet [place] ([facility]) Lactulose 667 MG/ML Oral Solution lactul ose 20 gram/30 mL oral solution TAKE 30ML BY MOUTH TWO TIMES A DAY lactulose 20 gram/30 mL oral solution TA KE 30ML BY MOUTH TWO TIMES A DAY completed lactulose 667 MG/ML Oral Solution [place] ([facility]) Cephalexin 500 MG Oral Capsule cephalexi n 500 mg capsule TAKE ONE CAPSULE BY MOUTH THREE TIMES A DAY cephalexin 500 mg capsule TAKE ONE CAPSU LE BY MOUTH THREE TIMES A DAY completed ceph alexin 500 MG Oral Capsule [place] ([facility]) Fluzone Quad 60 mcg (15 mcg x 4)/0.5 mL intramuscular susp. INJECT INTO THE LEFT ARM DIRECTED [id number] [facility] ed Fluzone Quad 60 mcg (15 mcg x 4)/0.5 mL intramuscular susp. [place] ([facility]) Furosemide 20 MG Oral Tablet furosemide 20 mg tablet TAKE ONE TABLET BY MOUTH EVERY DAY furosemide 20 mg tablet TAKE ONE TABLET BY MOUTH EVERY DAY completed furosemide 20 MG Oral Tablet [place] ([facility]) Lactulose 667 MG/ML Oral Solution lactul ose 20 gram/30 mL oral solution TAKE 30ML BY MOUTH TWO TIMES A DAY lactulose 20 gram/30 mL oral solution TA KE 30ML BY MOUTH TWO TIMES A DAY completed lactulose 667 MG/ML Oral Solution [place] ([facility]) Cephalexin 500 MG Oral Capsule cephalexi n 500 mg capsule TAKE ONE CAPSULE BY MOUTH THREE TIMES A DAY cephalexin 500 mg capsule TAKE ONE CAPSU LE BY MOUTH THREE TIMES A DAY completed ceph alexin 500 MG Oral Capsule [place] ([facility]) Spironolactone 25 MG Oral Tablet spirono lactone 25 mg tablet TAKE ONE TABLET BY MOUTH EVERY DAY spironolactone 25 mg tablet TAKE ONE TABLET BY MOUTH E VERY DAY completed spironolactone 25 MG Oral Tablet [place] ([facility]) zaleplon 5 MG Oral Capsule zaleplon 5 mg capsule TAKE ONE CAPSULE BY MOUTH AT BEDTIME MAXIMUM DAILY DOSE 1 CAPSULE zaleplon 5 mg capsule TAKE ONE CAPSULE B Y MOUTH AT BEDTIME MAXIMUM DAILY DOSE 1 CAPSULE completed zaleplon 5 MG Oral Capsule [place] ([facility]) Lactulose 667 MG/ML Oral Solution lactul ose 20 gram/30 mL oral solution TAKE 30ML BY MOUTH TWO TIMES A DAY lactulose 20 gram/30 mL oral solution TA KE 30ML BY MOUTH TWO TIMES A DAY completed lactulose 667 MG/ML Oral Solution [place] ([facility]) zaleplon 5 MG Oral Capsule zaleplon 5 mg capsule TAKE ONE CAPSULE BY MOUTH AT BEDTIME MAXIMUM DAILY DOSE 1 CAPSULE zaleplon 5 mg capsule TAKE ONE CAPSULE B Y MOUTH AT BEDTIME MAXIMUM DAILY DOSE 1 CAPSULE completed zaleplon 5 MG Oral Capsule [place] ([facility]) Furosemide 20 MG Oral Tablet furosemide 20 mg tablet TAKE ONE TABLET BY MOUTH EVERY DAY furosemide 20 mg tablet TAKE ONE TABLET BY MOUTH EVERY DAY completed furosemide 20 MG Oral Tablet [place] ([facility]) Furosemide 20 MG Oral Tablet furosemide 20 mg tablet TAKE ONE TABLET BY MOUTH EVERY DAY furosemide 20 mg tablet TAKE ONE TABLET BY MOUTH EVERY DAY completed furosemide 20 MG Oral Tablet [place] ([facility]) Lactulose 667 MG/ML Oral Solution lactul ose 20 gram/30 mL oral solution TAKE 30ML BY MOUTH TWO TIMES A DAY lactulose 20 gram/30 mL oral solution TA KE 30ML BY MOUTH TWO TIMES A DAY completed lactulose 667 MG/ML Oral Solution [place] ([facility]) Fluzone Quad 60 mcg (15 mcg x 4)/0.5 mL intramuscular susp. INJECT INTO THE LEFT ARM DIRECTED [id number] [facility] Fluzone Quad 60 mcg (15 mcg x 4)/0.5 mL intramuscular susp. [place] ([facility]) Spironolactone 25 MG Oral Tablet spirono lactone 25 mg tablet TAKE ONE TABLET BY MOUTH EVERY DAY spironolactone 25 mg tablet TAKE ONE TABLET BY MOUTH E VERY DAY completed spironolactone 25 MG Oral Tablet [place] ([facility]) Furosemide 20 MG Oral Tablet furosemide 20 mg tablet TAKE ONE TABLET BY MOUTH EVERY DAY furosemide 20 mg tablet TAKE ONE TABLET BY MOUTH EVERY DAY completed furosemide 20 MG Oral Tablet [place] ([facility]) Fluzone Quad 60 mcg (15 mcg x 4)/0.5 mL intramuscular susp. INJECT INTO THE LEFT ARM DIRECTED [id number] [facility] Fluzone Quad 60 mcg (15 mcg x 4)/0.5 mL intramuscular susp. [place] ([facility]) zaleplon 5 MG Oral Capsule zaleplon 5 mg capsule TAKE ONE CAPSULE BY MOUTH AT BEDTIME MAXIMUM DAILY DOSE 1 CAPSULE zaleplon 5 mg capsule TAKE ONE CAPSULE B Y MOUTH AT BEDTIME MAXIMUM DAILY DOSE 1 CAPSULE completed zaleplon 5 MG Oral Capsule [place] ([facility]) Insurance Providers Payer name Policy type / Coverage type Policy ID Covered libertarian ID Covered libertarian's relationship to bañuelos Policy Bañuelos Plan Information ROSEMARIE [id number] SP [id number] ROSEMARIE [id number] SP [id number] EMEDNY [id number] SP [id number] ROSEMARIE V[place] O [id number] S [id number] EMEDNY [id number] SP [id number] ROSEMARIE [id number] SP [id number] MEDICAID [id number] S [id number] SELF PAY S MEDICAID [id number] S [id number] MEDICAID [id number] SP [id number] SELF PAY ONLY NONE SP NONE ID IDENTIFICATION [id number] Other In surance [id number] Problems, Conditions, and Diagnoses Code Display Name Description Problem Type Effective Dates Data Source(s) 611090390 Major depressive disorder Major Depressive Disorder Pr oblem 10/09/2020 12:00:00 AM EST [place] ([facility]) [id number] Major depressive disorder Major Depressive Disorder Pr oblem 10/09/2020 12:00:00 AM EST [place] ([facility]) [id number] Compression fracture of lumbar spine Com pression Fracture of Lumbar Spine Problem 09/10/2020 12:00:00 AM EST [place] ([facility]) 761200347 Osteopenia Osteopenia Problem 09/10/2020 12:00:00 AM ES T [place] ([facility]) 148281621 Compression fracture of lumbar spine Com pression Fracture of Lumbar Spine Problem 09/10/2020 12:00:00 AM EST [place] ([facility]) 761275589 Osteopenia Osteopenia Problem 09/10/2020 12:00:00 AM ES T [place] ([facility]) 016605015 Compression fracture of lumbar spine Com pression Fracture of Lumbar Spine Problem 09/10/2020 12:00:00 AM EST [place] ([facility]) 792210982 Osteopenia Osteopenia Problem 09/10/2020 12:00:00 AM JULIA Reyes [place] ([facility]) V70.0 Encounter for general adult medical exam ination with abnormal findings Encounter for general adult medical examination with abnormal findings 06/11/2020 10:37:39 AM EDT [facility] [id number] Procedure by method Procedure by Method Problem 0 06/11/2020 12:00:00 AM EDT - 08/14/2020 12:00:00 AM HOLDEN H[facility] ([facility]) [id number] Procedure by method Procedure by Method Problem 0 06/11/2020 12:00:00 AM EDT - 08/14/2020 12:00:00 AM EST [place] ([facility]) 283653725 Procedure by method Procedure by Method Problem 0 06/11/2020 12:00:00 AM EDT - 08/14/2020 12:00:00 AM EST [place] ([facility]) [id number] Procedure by method Procedure by Method Problem 0 06/11/2020 12:00:00 AM EDT - 08/14/2020 12:00:00 AM EST [place] ([facility]) V05.9 Encounter for immunization Encounter for immunization 05/10/2020 02:34:40 PM EDT [facility] [id number] Influenza vaccine needed Influenza Vaccine Needed Pro blem 05/10/2020 12:00:00 AM EDT - 10/30/2020 12:00:00 AM EST [place] ([facility]) [id number] Influenza vaccine needed Influenza Vaccine Needed Pro blem 05/10/2020 12:00:00 AM EDT [place] ([facility]) [id number] Influenza vaccine needed Influenza Vaccine Needed Pro blem 05/10/2020 12:00:00 AM EDT [place] ([facility]) [id number] Influenza vaccine needed Influenza Vaccine Needed Pro blem 05/10/2020 12:00:00 AM EDT [place] ([facility]) 069713280 Insomnia, unspecified Insomnia, unspecified 04/09/2020 10:15:55 AM EDT [facility] 828880007 Insomnia Insomnia Problem 04/09/2020 12:00:00 AM ED T [place] ([facility]) 860006918 Insomnia Insomnia Problem 04/09/2020 12:00:00 AM ED T [place] ([facility]) 508632512 Insomnia Insomnia Problem 04/09/2020 12:00:00 AM ED T [place] ([facility]) 790786201 Insomnia Insomnia Problem 04/09/2020 12:00:00 AM ED T [place] ([facility]) 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, in remission Alcohol abuse, in remissio n 03/27/2020 02:00:55 PM EDT [facility] 782.3 Edema of lower extremity Edema of lower extremity 03/27/2020 02:00:55 PM EDT [facility] K70.31 Alcoholic cirrhosis of liver with ascite s Alcoholic cirrhosis of liver with ascites 03/27/2020 02:00:55 PM EDT [facility] 305.1 Tobacco user Tobacco user 03/27/2020 02:00:55 P M EDT [facility] [id number] Ascites due to alcoholic cirrhosis Ascit es Due to Alcoholic Cirrhosis Problem 03/27/2020 12:00:00 AM EDT [place] ([facility]) 475520040 Localized edema Localized Edema Problem 03/27/2020 12:0 0:00 AM EDT [place] ([facility]) 45423788 Nicotine dependence Nicotine Dependence Problem 0 03/27/2020 12:00:00 AM EDT [place] ([facility]) 236961880 Nondependent alcohol abuse in remission Nondependent Alcohol Abuse in Remission Problem 03/27/2020 12:00:00 AM EDT [place] ([facility]) [id number] Ascites due to alcoholic cirrhosis Ascit es Due to Alcoholic Cirrhosis Problem 03/27/2020 12:00:00 AM EDT [place] ([facility]) 120734294 Localized edema Localized Edema Problem 03/27/2020 12:0 0:00 AM EDT [place] ([facility]) 28541297 Nicotine dependence Nicotine Dependence Problem 0 03/27/2020 12:00:00 AM EDT [place] ([facility]) 241233352 Nondependent alcohol abuse in remission Nondependent Alcohol Abuse in Remission Problem 03/27/2020 12:00:00 AM EDT [place] ([facility]) [id number] Ascites due to alcoholic cirrhosis Ascit es Due to Alcoholic Cirrhosis Problem 03/27/2020 12:00:00 AM EDT [place] ([facility]) 129390550 Localized edema Localized Edema Problem 03/27/2020 12:0 0:00 AM EDT [place] ([facility]) 03038825 Nicotine dependence Nicotine Dependence Problem 0 03/27/2020 12:00:00 AM EDT [place] ([facility]) [id number] Nondependent alcohol abuse in remission Nondependent Alcohol Abuse in Remission Problem 03/27/2020 12:00:00 AM EDT [place] ([facility]) [id number] Ascites due to alcoholic cirrhosis Ascit es Due to Alcoholic Cirrhosis Problem 03/27/2020 12:00:00 AM EDT [place] ([facility]) [id number] Localized edema Localized Edema Problem 03/27/2020 12:0 0:00 AM EDT [place] ([facility]) [id number] Nicotine dependence Nicotine Dependence Problem 0 03/27/2020 12:00:00 AM EDT [place] ([facility]) [id number] Nondependent alcohol abuse in remission Nondependent Alcohol Abuse in Remission Problem 03/27/2020 12:00:00 AM EDT [place] ([facility]) R10.9 Unspecified abdominal pain Unspecified abdominal pain (R10.9) 01/17/2020 [id number] 01/17/2020 09:49:17 AM EDT [facility] ([facility]) K70.11 Alcoholic hepatitis with ascites Alcohol ic hepatitis with ascites (K70.11) 01/17/2020 [id number] 01/17/2020 09:49:17 AM EDT [facility] ([facility]) Y92.[address] or [address] applicable UNSPECIFIED PLACE OR NOT APPLICABLE Diagnosis 03/17/2020 09:06:[address] [facility] W57.XXXA Bitten or stung by nonvenomo us insect and other nonvenomous arthropods, initial encounter BIT/STUNG BY NONVENOM INSECT & OTH NONVENOM ARTHROPODS , INIT Diagnosis 03/17/2020 09:06:[address] 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 Diagnosis 03/17/2020 09:06:00 PM [facility] F10.232 Alcohol dependence with withdrawal with perceptual disturbance ALCOHOL DEPENDENCE W WITHDRAWAL WITH PERCEPTUAL DISTURBANCE Diagnosis 09:06:00 PM [facility] K76.6 Portal hypertension PORTAL HYPERTENSION Diagnosis 0 03/17/2020 09:06:00 PM [facility] F17.210 Nicotine dependence, cigarettes, uncompl icated NICOTINE DEPENDENCE, CIGARETTES, UNCOMPLICATED Diagnosis 03/17/2020 09:06:00 PM [facility] S90.861A Insect bite (nonvenomous), right foot, i nitial encounter INSECT BITE (NONVENOMOUS), RIGHT FOOT, INITIAL ENCOUNTER Diagnosis 0 09:06:00 PM [facility] F31.9 Bipolar disorder, unspecified BIPOLAR DISORDER, UNSPEC IFIED Diagnosis 03/17/2020 09:06:00 PM [facility] K70.31 Alcoholic cirrhosis of liver with ascite s ALCOHOLIC CIRRHOSIS OF LIVER WITH ASCITES Diagnosis 03/17/2020 09:06:00 PM [facility] Surgeries/Procedures Procedure Description Date Indications Data Source(s) Drainage of Peritoneal Cavity, Percutaneous Approach, Diagnostic DRAINAGE OF PERITONEAL CAVITY, PERCUTANEOUS APPROACH, DIAGN 03/18/2020 12:00:00 AM [facility] XRAY ABDOMEN 2 VIEW (FLAT and UPRIGHT) 01/17/202001/16 12:00:00 AM EDT [facility] ([facility]) Collected Date 01/17/2020 1024 01/17/2020 01/17/2020 12:00 :00 AM EDT [facility] ([facility]) CBCDIFF 01/17/2020 01/17/2020 12:00:00 AM EDT [facility] ([facility]) COMPREHENSIVE METABOLIC PANEL 01/17/2020 12:00:00 AM E DT [facility] ([facility]) Results ID Date Data Source [id number] 10/25/2020 01:19:00 PM EST [place] ([facility]) Name Value Range Interpretation Code Description Data Julia rce(s) Supporting Document(s) magnesium level 2.1 mg/dL 1.8-2.4 normal Magnesium Level [facility] ([facility]) ID Date Data Source [id number] 10/25/2020 01:19:00 PM EST [place] ([facility]) Name Value Range Interpretation Code Description Data Julia rce(s) Supporting Document(s) phosphorus level 3.4 mg/dL 2.5-4.9 normal Phosphorus Level AT [facility] ([facility]) ID Date Data Source [id number] 10/25/2020 01:19:00 PM EST [place] ([facility]) Name Value Range Interpretation Code Description Data Julia rce(s) Supporting Document(s) glucose, fasting 95 mg/dL 70-100 normal Glucose, Fasting AT [facility] ([facility]) blood urea nitrogen 34 mg/dL 7-18 Above high normal Blood Ure a Nitrogen [place] ([facility]) creatinine for GFR 1.49 mg/dL 0.55-1.30 Above high normal Creatinine for GFR [place] ([facility]) glomerular filtration rate >51 Below low normal Deidra merular Filtration Rate [place] ([facility]) potassium serum 4.7 mEq/L 3.5-5.1 normal Potassium Serum [facility] ([facility]) sodium level 127 mEq/L 136-145 Below low normal Sodium Level [facility] ([facility]) carbon dioxide level 24 mEq/L 21-32 normal Carbon Dioxide Level [place] ([facility]) chloride level 95 mEq/L 98-107 Below low normal Chloride Level [place] ([facility]) anion gap 8 mEq/L 8-16 normal Anion Gap [place] ([facility]) calcium level 8.7 mg/dL 8.5-10.1 normal Calcium Level [facility]) ID Date Data Source [id number] 10/25/2020 11:00:00 AM EST [place] ([facility]) Name Value Range Interpretation Code Description Data Julia rce(s) Supporting Document(s) albumin 25% transfused product: albumin 25% count: 2 Albumin 25% [place] ([facility]) ID Date Data Source [id number] 10/18/2020 11:24:00 AM EST [place] ([facility]) Name Value Range Interpretation Code Description Data Julia rce(s) Supporting Document(s) magnesium level 2.0 mg/dL 1.8-2.4 normal Magnesium Level [facility] ([facility]) ID Date Data Source [id number] 10/18/2020 11:24:00 AM EST [place] ([facility]) Name Value Range Interpretation Code Description Data Julia rce(s) Supporting Document(s) phosphorus level 3.6 mg/dL 2.5-4.9 normal Phosphorus Level AT [facility] ([facility]) ID Date Data Source [id number] 10/18/2020 11:24:00 AM EST [place] ([facility]) Name Value Range Interpretation Code Description Data Julia rce(s) Supporting Document(s) glucose, fasting 101 mg/dL 70-100 Above high normal Glucose, Fas ting [place] ([facility]) blood urea nitrogen 28 mg/dL 7-18 Above high normal Blood Ure a Nitrogen [place] ([facility]) creatinine for GFR 1.68 mg/dL 0.55-1.30 Above high normal Creatinine for GFR [place] ([facility]) glomerular filtration rate >51 Below low normal Deidra merular Filtration Rate [place] ([facility]) sodium level 134 mEq/L 136-145 Below low normal Sodium Level [facility] ([facility]) potassium serum 3.9 mEq/L 3.5-5.1 normal Potassium Serum [facility] ([facility]) chloride level 103 mEq/L 98-107 normal Chloride Level [place] ([facility]) carbon dioxide level 23 mEq/L 21-32 normal Carbon Dioxide Level [place] ([facility]) anion gap 8 mEq/L 8-16 normal Anion Gap [place] ([facility]) calcium level 8.2 mg/dL 8.5-10.1 Below low normal Calcium Level AT [facility] ([facility]) ID Date Data Source [id number] 10/18/2020 08:26:00 AM EST [place] ([facility]) Name Value Range Interpretation Code Description Data Julia rce(s) Supporting Document(s) albumin 25% transfused product: albumin 25% count: 4 Albumin 25% [place] ([facility]) ID Date Data Source [id number] 10/03/2020 10:51:00 AM EST [place] ([facility]) Name Value Range Interpretation Code Description Data Julia rce(s) Supporting Document(s) magnesium level 2.1 mg/dL 1.8-2.4 normal [facility] ID Date Data Source [id number] 10/03/2020 10:51:00 AM EST [place] ([facility]) Name Value Range Interpretation Code Description Data Julia rce(s) Supporting Document(s) phosphorus level 3.9 mg/dL 2.5-4.9 normal Phosphorus Level AT [facility] ([facility]) ID Date Data Source [id number] 10/03/2020 10:51:00 AM EST [place] ([facility]) Name Value Range Interpretation Code Description Data Julia rce(s) Supporting Document(s) glucose, fasting 106 mg/dL 70-100 Above high normal Glucose, Fas ting [place] ([facility]) blood urea nitrogen 30 mg/dL 7-18 Above high normal Blood Ure a Nitrogen [place] ([facility]) creatinine for GFR 1.64 mg/dL 0.55-1.30 Above high normal Creatinine for GFR [place] ([facility]) glomerular filtration rate >51 Below low normal Deidra merular Filtration Rate [place] ([facility]) sodium level 128 mEq/L 136-145 Below low normal Sodium Level [facility] ([facility]) potassium serum 4.4 mEq/L 3.5-5.1 normal Potassium Serum [facility] ([facility]) chloride level 98 mEq/L 98-107 normal Chloride Level [place] ([facility]) carbon dioxide level 23 mEq/L 21-32 normal Carbon Dioxide Level [place] ([facility]) anion gap 7 mEq/L 8-16 Below low normal Anion Gap [place] ( [facility]) calcium level 8.6 mg/dL 8.5-10.1 normal Calcium Level [place] ( [facility]) ID Date Data Source [id number] 10/03/2020 10:51:00 AM EST [place] ([facility]) Name Value Range Interpretation Code Description Data Julia rce(s) Supporting Document(s) magnesium level 2.1 mg/dL 1.8-2.4 normal [facility] ID Date Data Source [id number] 10/03/2020 10:51:00 AM EST [place] ([facility]) Name Value Range Interpretation Code Description Data Julia rce(s) Supporting Document(s) phosphorus level 3.9 mg/dL 2.5-4.9 normal Phosphorus Level AT [facility]) ID Date Data Source [id number] 10/03/2020 10:51:00 AM EST [place] ([facility]) Name Value Range Interpretation Code Description Data Julia rce(s) Supporting Document(s) blood urea nitrogen 30 mg/dL 7-18 Above high normal Blood Ure a Nitrogen [place] ([facility]) glucose, fasting 106 mg/dL 70-100 Above high normal Glucose, Fas ting [place] ([facility]) creatinine for GFR 1.64 mg/dL 0.55-1.30 Above high normal Creatinine for GFR [place] ([facility]) sodium level 128 mEq/L 136-145 Below low normal Sodium Level [facility] ([facility]) glomerular filtration rate >51 Below low normal Deidra merular Filtration Rate [place] ([facility]) chloride level 98 mEq/L 98-107 normal Chloride Level [place] ([facility]) potassium serum 4.4 mEq/L 3.5-5.1 normal Potassium Serum [facility] ([facility]) carbon dioxide level 23 mEq/L 21-32 normal Carbon Dioxide Level [place] ([facility]) anion gap 7 mEq/L 8-16 Below low normal Anion Gap [place] ( [facility]) calcium level 8.6 mg/dL 8.5-10.1 normal Calcium Level [place] ( [facility]) ID Date Data Source [id number] 10/03/2020 10:36:00 AM EST [place] ([facility]) Name Value Range Interpretation Code Description Data Julia rce(s) Supporting Document(s) albumin 25% transfused product: albumin 25% count: 4 Albumin 25% [place] ([facility]) ID Date Data Source [id number] 10/03/2020 10:36:00 AM EST [place] ([facility]) Name Value Range Interpretation Code Description Data Julia rce(s) Supporting Document(s) albumin 25% transfused product: albumin 25% count: 4 Albumin 25% [place] ([facility]) ID Date Data Source [id number] 09/27/2020 09:30:00 AM EST [place] ([facility]) Name Value Range Interpretation Code Description Data Julia rce(s) Supporting Document(s) albumin 25% transfused product: albumin 25% count: 4 Albumin 25% [place] ([facility]) ID Date Data Source [id number] 09/27/2020 09:30:00 AM EST [place] ([facility]) Name Value Range Interpretation Code Description Data Julia rce(s) Supporting Document(s) albumin 25% transfused product: albumin 25% count: 4 Albumin 25% [place] ([facility]) ID Date Data Source [id number] 09/20/2020 08:30:00 AM EST [place] ([facility]) Name Value Range Interpretation Code Description Data Julia rce(s) Supporting Document(s) albumin 25% transfused product: albumin 25% count: 4 Albumin 25% [place] ([facility]) ID Date Data Source [id number] 09/20/2020 08:30:00 AM EST [place] ([facility]) Name Value Range Interpretation Code Description Data Julia rce(s) Supporting Document(s) albumin 25% transfused product: albumin 25% count: 4 Albumin 25% [place] ([facility]) ID Date Data Source [id number] 09/13/2020 01:21:00 PM EST [place] ([facility]) Name Value Range Interpretation Code Description Data Julia rce(s) Supporting Document(s) albumin, body fluid 0.7 g/dL not established normal Albumin, Julien dy Fluid [place] ([facility]) source, body fluid albumin ascites normal Source, B jamil Fluid Albumin [place] ([facility]) ID Date Data Source [id number] 09/13/2020 01:21:00 PM EST [place] ([facility]) Name Value Range Interpretation Code Description Data Julia rce(s) Supporting Document(s) total protein, body fluid 1.4 g/dL not established normal Total Protein, Body Fluid [place] ([facility]) source, body fluid tot protein ascites normal Sourc e, Body Fluid Tot Protein [place] ([facility]) ID Date Data Source [id number] 09/13/2020 01:21:00 PM EST [place] ([facility]) Name Value Range Interpretation Code Description Data Julia rce(s) Supporting Document(s) source, body fluid ascites normal Source, Body Flui d [place] ([facility]) ascites fL color yellow colorless normal Ascites fL Color AT [place] ([facility]) appearance, body fluid hazy clear normal Appearance, B jamil Fluid [place] ([facility]) WBC body fluid 108 /uL 0-10 Above high normal WBC Body Fluid [place] ([facility]) bf mononuclear cell % 94.5 % 0-0 Above high normal Bf [place] nuclear Cell % [place] ([facility]) RBC body fluid < 2 <2 normal RBC Body Fluid [place] ([facility]) bf polymorphonuclear cell % 5.5 % 0-0 Above high no rmal Bf Polymorphonuclear Cell % [place] ([facility]) ID Date Data Source [id number] 09/13/2020 01:21:00 PM EST [place] ([facility]) Name Value Range Interpretation Code Description Data Julia rce(s) Supporting Document(s) source, body fluid albumin ascites normal Source, B jamil Fluid Albumin [place] ([facility]) albumin, body fluid 0.7 g/dL not established normal Albumin, Julien dy Fluid [place] ([facility]) ID Date Data Source [id number] 09/13/2020 01:21:00 PM EST [place] ([facility]) Name Value Range Interpretation Code Description Data Julia rce(s) Supporting Document(s) source, body fluid tot protein ascites normal Sourc e, Body Fluid Tot Protein [place] ([facility]) total protein, body fluid 1.4 g/dL not established normal Total Protein, Body Fluid [place] ([facility]) ID Date Data Source [id number] 09/13/2020 01:21:00 PM EST [place] ([facility]) Name Value Range Interpretation Code Description Data Julia rce(s) Supporting Document(s) source, body fluid ascites normal Source, Body Flui d [place] ([facility]) ascites fL color yellow colorless normal Ascites fL Color AT [facility] ([facility]) appearance, body fluid hazy clear normal Appearance, B jamil Fluid [place] ([facility]) WBC body fluid 108 /uL 0-10 Above high normal WBC Body Fluid [place] ([facility]) RBC body fluid < 2 <2 normal RBC Body Fluid [place] ([facility]) bf mononuclear cell % 94.5 % 0-0 Above high normal Bf [place] nuclear Cell % [place] ([facility]) bf polymorphonuclear cell % 5.5 % 0-0 Above high no rmal Bf Polymorphonuclear Cell % [place] ([facility]) ID Date Data Source [id number] 09/13/2020 08:48:00 AM EST [place] ([facility]) Name Value Range Interpretation Code Description Data Julia rce(s) Supporting Document(s) albumin 25% transfused product: albumin 25% count: 4 Albumin 25% [place] ([facility]) ID Date Data Source [id number] 09/13/2020 08:48:00 AM EST [place] ([facility]) Name Value Range Interpretation Code Description Data Julia rce(s) Supporting Document(s) albumin 25% transfused product: albumin 25% count: 4 Albumin 25% [place] ([facility]) ID Date Data Source [id number] 09/05/2020 11:04:00 AM EST [place] ([facility]) Name Value Range Interpretation Code Description Data Julia rce(s) Supporting Document(s) glucose, fasting 109 mg/dL 70-100 Above high normal Glucose, Fas ting [place] ([facility]) blood urea nitrogen 27 mg/dL 7-18 Above high normal Blood Ure a Nitrogen [place] ([facility]) creatinine for GFR 1.52 mg/dL 0.55-1.30 Above high normal Creatinine for GFR [place] ([facility]) sodium level 130 mEq/L 136-145 Below low normal Sodium Level [facility] ([facility]) glomerular filtration rate >51 Below low normal Deidra merular Filtration Rate [place] ([facility]) potassium serum 3.9 mEq/L 3.5-5.1 normal Potassium Serum [facility] ([facility]) chloride level 93 mEq/L 98-107 Below low normal Chloride Level [place] ([facility]) anion gap 8 mEq/L 8-16 normal Anion Gap [place] ([facility]) carbon dioxide level 29 mEq/L 21-32 normal Carbon Dioxide Level [place] ([facility]) calcium level 9.4 mg/dL 8.5-10.1 normal Calcium Level [place] ( [facility]) ID Date Data Source [id number] 09/05/2020 11:04:00 AM EST [place] ([facility]) Name Value Range Interpretation Code Description Data Julia rce(s) Supporting Document(s) AST/SGOT 50 U/L 7-37 Above high normal AST/SGOT [place] ([facility]) ALT/SGPT 26 U/L 12-78 normal ALT/SGPT [place] ([facility]) alkaline phosphatase 184 U/L 45-117 Above high normal Alkaline Phosphatase [place] ([facility]) bilirubin,total 4.3 mg/dL 0.2-1.0 Above high normal Bilirubin,tot al [place] ([facility]) bilirubin,direct 1.7 mg/dL 0.0-0.2 Above high normal Bilirubin,di rect [place] ([facility]) total protein 6.8 gm/dL 6.4-8.2 normal Total Protein [place] ( [facility]) albumin 3.5 gm/dL 3.2-5.2 normal Albumin [place] ([facility]) albumin/globulin ratio 1.2-2.2 Below low normal Albumin /globulin Ratio [place] ([facility]) ID Date Data Source [id number] 09/05/2020 11:04:00 AM EST [place] ([facility]) Name Value Range Interpretation Code Description Data Julia rce(s) Supporting Document(s) sodium,random urine 12 mEq/L normal Sodium,random Ur ine [place] ([facility]) ID Date Data Source [id number] 09/05/2020 11:04:00 AM EST [place] ([facility]) Name Value Range Interpretation Code Description Data Julia rce(s) Supporting Document(s) creatinine,random urine 142.0 mg/dL normal Creatinine, random Urine [place] ([facility]) ID Date Data Source [id number] 09/05/2020 11:04:00 AM EST [place] ([facility]) Name Value Range Interpretation Code Description Data Julia rce(s) Supporting Document(s) prothrombin time 20.0 seconds 12.5-14.3 Above high normal Prothrombi n Time [place] ([facility]) INR normal Inr [place] ([facility]) partial thromboplastin time 40.3 seconds 24.2-38.5 Above high no rmal Partial Thromboplastin Time [place] ([facility]) ID Date Data Source [id number] 09/05/2020 11:04:00 AM EST [place] ([facility]) Name Value Range Interpretation Code Description Data Julia rce(s) Supporting Document(s) white blood count 7.3 10 4.0-10.0 normal White Blood Count [place] ([facility]) red blood count 3.39 10 4.00-5.40 Below low normal Red Blood Coun t [place] ([facility]) hemoglobin 10.8 g/dL 12.0-15.5 Below low normal Hemoglobin [place] ( [facility]) mean corpuscular volume 90.6 fL 80.0-96.0 normal Mean Corpusc ular Volume [place] ([facility]) hematocrit 30.7 % 36.0-47.0 Below low normal Hematocrit [place] ( [facility]) mean corpuscular hemoglobin 31.9 pg 27.0-33.0 normal Mean Corpuscular Hemoglobin [place] ([facility]) mean corpuscular HGB conc 35.2 g/dL 32.0-36.5 normal Mean Corpu scular HGB Conc [place] ([facility]) red cell distribution width 18.1 % 11.5-14.5 Above high no rmal Red Cell Distribution Width [place] ([facility]) platelet count, automated 141 10 150-450 Below low denice l Platelet Count, Automated [place] ([facility]) neutrophils % 70.7 % 36.0-66.0 Above high normal Neutrophils % [facility] ([facility]) lymph % 12.1 % 24.0-44.0 Below low normal Lymph % [place] ( [facility]) mono % 14.9 % 0.0-5.0 Above high normal [place] % [place] ([facility]) baso % 0.6 % 0.0-1.0 normal Baso % [place] ([facility]) eos % 1.1 % 0.0-3.0 normal Eos % [place] ([facility]) immature granulocyte % 0.6 % 0-3.0 normal Immature Gran ulocyte % [place] ([facility]) nucleated red blood cell % 0.0 % 0-0 normal Nucleated Red Blood Cell % [place] ([facility]) lymph # 0.9 10 1.5-5.0 Below low normal Lymph # [place] ( [facility]) neutrophils # 5.1 10 1.5-8.5 normal Neutrophils # [place] ( [facility]) mono # 1.1 10 0.0-0.8 Above high normal [place] # [place] ([facility]) baso # 0.0 10 0.0-0.2 normal Baso # [place] ([facility]) eos # 0.1 10 0.0-0.5 normal Eos # [place] ([facility]) ID Date Data Source [id number] 09/05/2020 11:04:00 AM EST [place] ([facility]) Name Value Range Interpretation Code Description Data Julia rce(s) Supporting Document(s) glucose, fasting 109 mg/dL 70-100 Above high normal Glucose, Fas ting [place] ([facility]) creatinine for GFR 1.52 mg/dL 0.55-1.30 Above high normal Creatinine for GFR [place] ([facility]) blood urea nitrogen 27 mg/dL 7-18 Above high normal Blood Ure a Nitrogen [place] ([facility]) sodium level 130 mEq/L 136-145 Below low normal Sodium Level [facility] ([facility]) glomerular filtration rate >51 Below low normal Deidra merular Filtration Rate [place] ([facility]) potassium serum 3.9 mEq/L 3.5-5.1 normal Potassium Serum [facility] ([facility]) chloride level 93 mEq/L 98-107 Below low normal Chloride Level [place] ([facility]) carbon dioxide level 29 mEq/L 21-32 normal Carbon Dioxide Level [place] ([facility]) anion gap 8 mEq/L 8-16 normal Anion Gap [place] ([facility]) calcium level 9.4 mg/dL 8.5-10.1 normal Calcium Level [place] ( [facility]) ID Date Data Source [id number] 09/05/2020 11:04:00 AM EST [place] ([facility]) Name Value Range Interpretation Code Description Data Julia rce(s) Supporting Document(s) ALT/SGPT 26 U/L 12-78 normal ALT/SGPT [place] ([facility]) AST/SGOT 50 U/L 7-37 Above high normal AST/SGOT [place] ([facility]) bilirubin,total 4.3 mg/dL 0.2-1.0 Above high normal Bilirubin,tot al [place] ([facility]) alkaline phosphatase 184 U/L 45-117 Above high normal Alkaline Phosphatase [place] ([facility]) bilirubin,direct 1.7 mg/dL 0.0-0.2 Above high normal Bilirubin,di rect [place] ([facility]) total protein 6.8 gm/dL 6.4-8.2 normal Total Protein [place] ( [facility]) albumin/globulin ratio 1.2-2.2 Below low normal Albumin /globulin Ratio [place] ([facility]) albumin 3.5 gm/dL 3.2-5.2 normal Albumin [place] ([facility]) ID Date Data Source [id number] 09/05/2020 11:04:00 AM EST [place] ([facility]) Name Value Range Interpretation Code Description Data Julia rce(s) Supporting Document(s) sodium,random urine 12 mEq/L normal Sodium,random Ur ine [place] ([facility]) ID Date Data Source [id number] 09/05/2020 11:04:00 AM EST [place] ([facility]) Name Value Range Interpretation Code Description Data Julia rce(s) Supporting Document(s) creatinine,random urine 142.0 mg/dL normal Creatinine, random Urine [place] ([facility]) ID Date Data Source [id number] 09/05/2020 11:04:00 AM EST [place] ([facility]) Name Value Range Interpretation Code Description Data Julia rce(s) Supporting Document(s) prothrombin time 20.0 seconds 12.5-14.3 Above high normal Prothrombi n Time [place] ([facility]) INR normal Inr [place] ([facility]) partial thromboplastin time 40.3 seconds 24.2-38.5 Above high no rmal Partial Thromboplastin Time [place] ([facility]) ID Date Data Source [id number] 09/05/2020 11:04:00 AM EST [place] ([facility]) Name Value Range Interpretation Code Description Data Julia rce(s) Supporting Document(s) white blood count 7.3 10 4.0-10.0 normal White Blood Count [place] ([facility]) red blood count 3.39 10 4.00-5.40 Below low normal Red Blood Coun t [place] ([facility]) hematocrit 30.7 % 36.0-47.0 Below low normal Hematocrit [place] ( [facility]) hemoglobin 10.8 g/dL 12.0-15.5 Below low normal Hemoglobin [place] ( [facility]) mean corpuscular hemoglobin 31.9 pg 27.0-33.0 normal Mean Corpuscular Hemoglobin [place] ([facility]) mean corpuscular volume 90.6 fL 80.0-96.0 normal Mean Corpusc ular Volume [place] ([facility]) red cell distribution width 18.1 % 11.5-14.5 Above high no rmal Red Cell Distribution Width [place] ([facility]) mean corpuscular HGB conc 35.2 g/dL 32.0-36.5 normal Mean Corpu scular HGB Conc [place] ([facility]) platelet count, automated 141 10 150-450 Below low denice l Platelet Count, Automated [place] ([facility]) neutrophils % 70.7 % 36.0-66.0 Above high normal Neutrophils % [place] ([facility]) lymph % 12.1 % 24.0-44.0 Below low normal Lymph % [place] ( [facility]) mono % 14.9 % 0.0-5.0 Above high normal [place] % [place] ([facility]) baso % 0.6 % 0.0-1.0 normal Baso % [place] ([facility]) eos % 1.1 % 0.0-3.0 normal Eos % [place] ([facility]) immature granulocyte % 0.6 % 0-3.0 normal Immature Gran ulocyte % [place] ([facility]) neutrophils # 5.1 10 1.5-8.5 normal Neutrophils # [place] ( [facility]) nucleated red blood cell % 0.0 % 0-0 normal Nucleated Red Blood Cell % [place] ([facility]) lymph # 0.9 10 1.5-5.0 Below low normal Lymph # [place] ( [facility]) mono # 1.1 10 0.0-0.8 Above high normal [place] # [place] ([facility]) baso # 0.0 10 0.0-0.2 normal Baso # [place] ([facility]) eos # 0.1 10 0.0-0.5 normal Eos # [place] ([facility]) ID Date Data Source [id number] 09/05/2020 11:04:00 AM EST [place] ([facility]) Name Value Range Interpretation Code Description Data Julia rce(s) Supporting Document(s) blood urea nitrogen 27 mg/dL 7-18 Above high normal Blood Ure a Nitrogen [place] ([facility]) glucose, fasting 109 mg/dL 70-100 Above high normal Glucose, Fas ting [place] ([facility]) glomerular filtration rate >51 Below low normal Deidra merular Filtration Rate [place] ([facility]) creatinine for GFR 1.52 mg/dL 0.55-1.30 Above high normal Creatinine for GFR [place] ([facility]) sodium level 130 mEq/L 136-145 Below low normal Sodium Level [place] ([facility]) potassium serum 3.9 mEq/L 3.5-5.1 normal Potassium Serum A[facility] ([facility]) chloride level 93 mEq/L 98-107 Below low normal Chloride Level [place] ([facility]) carbon dioxide level 29 mEq/L 21-32 normal Carbon Dioxide Level [place] ([facility]) anion gap 8 mEq/L 8-16 normal Anion Gap [place] ([facility]) calcium level 9.4 mg/dL 8.5-10.1 normal Calcium Level [place] ( [facility]) ID Date Data Source [id number] 09/05/2020 11:04:00 AM EST [place] ([facility]) Name Value Range Interpretation Code Description Data Julia rce(s) Supporting Document(s) AST/SGOT 50 U/L 7-37 Above high normal AST/SGOT [place] ([facility]) ALT/SGPT 26 U/L 12-78 normal ALT/SGPT [place] ([facility]) bilirubin,total 4.3 mg/dL 0.2-1.0 Above high normal Bilirubin,tot al [place] ([facility]) alkaline phosphatase 184 U/L 45-117 Above high normal Alkaline Phosphatase [place] ([facility]) bilirubin,direct 1.7 mg/dL 0.0-0.2 Above high normal Bilirubin,di rect [place] ([facility]) total protein 6.8 gm/dL 6.4-8.2 normal Total Protein [place] ( [facility]) albumin 3.5 gm/dL 3.2-5.2 normal Albumin [place] ([facility]) albumin/globulin ratio 1.2-2.2 Below low normal Albumin /globulin Ratio [place] ([facility]) ID Date Data Source [id number] 09/05/2020 11:04:00 AM EST [place] ([facility]) Name Value Range Interpretation Code Description Data Julia rce(s) Supporting Document(s) sodium,random urine 12 mEq/L normal Sodium,random Ur ine [place] ([facility]) ID Date Data Source [id number] 09/05/2020 11:04:00 AM EST [place] ([facility]) Name Value Range Interpretation Code Description Data Julia rce(s) Supporting Document(s) creatinine,random urine 142.0 mg/dL normal Creatinine, random Urine [place] ([facility]) ID Date Data Source [id number] 09/05/2020 11:04:00 AM EST [place] ([facility]) Name Value Range Interpretation Code Description Data Julia rce(s) Supporting Document(s) prothrombin time 20.0 seconds 12.5-14.3 Above high normal Prothrombi n Time [place] ([facility]) INR normal Inr [place] ([facility]) partial thromboplastin time 40.3 seconds 24.2-38.5 Above high no rmal Partial Thromboplastin Time [place] ([facility]) ID Date Data Source [id number] 09/05/2020 11:04:00 AM EST [place] ([facility]) Name Value Range Interpretation Code Description Data Julia rce(s) Supporting Document(s) white blood count 7.3 10 4.0-10.0 normal White Blood Count [place] ([facility]) red blood count 3.39 10 4.00-5.40 Below low normal Red Blood Coun t [place] ([facility]) hemoglobin 10.8 g/dL 12.0-15.5 Below low normal Hemoglobin [place] ( [facility]) mean corpuscular volume 90.6 fL 80.0-96.0 normal Mean Corpusc ular Volume [place] ([facility]) hematocrit 30.7 % 36.0-47.0 Below low normal Hematocrit [place] ( [facility]) mean corpuscular hemoglobin 31.9 pg 27.0-33.0 normal Mean Corpuscular Hemoglobin [place] ([facility]) mean corpuscular HGB conc 35.2 g/dL 32.0-36.5 normal Mean Corpu scular HGB Conc [place] ([facility]) red cell distribution width 18.1 % 11.5-14.5 Above high no rmal Red Cell Distribution Width [place] ([facility]) platelet count, automated 141 10 150-450 Below low denice l Platelet Count, Automated [place] ([facility]) neutrophils % 70.7 % 36.0-66.0 Above high normal Neutrophils % [place] ([facility]) lymph % 12.1 % 24.0-44.0 Below low normal Lymph % [place] ( [facility]) mono % 14.9 % 0.0-5.0 Above high normal [place] % [place] ([facility]) eos % 1.1 % 0.0-3.0 normal Eos % [place] ([facility]) baso % 0.6 % 0.0-1.0 normal Baso % [place] ([facility]) immature granulocyte % 0.6 % 0-3.0 normal Immature Gran ulocyte % [place] ([facility]) nucleated red blood cell % 0.0 % 0-0 normal Nucleated Red Blood Cell % [place] ([facility]) neutrophils # 5.1 10 1.5-8.5 normal Neutrophils # [place] ( [facility]) lymph # 0.9 10 1.5-5.0 Below low normal Lymph # [place] ( [facility]) mono # 1.1 10 0.0-0.8 Above high normal [place] # [place] ([facility]) eos # 0.1 10 0.0-0.5 normal Eos # [place] ([facility]) baso # 0.0 10 0.0-0.2 normal Baso # [place] ([facility]) ID Date Data Source [id number] 09/05/2020 08:12:00 AM EST [place] ([facility]) Name Value Range Interpretation Code Description Data Julia rce(s) Supporting Document(s) albumin 25% transfused product: albumin 25% count: 4 Albumin 25% [place] ([facility]) ID Date Data Source [id number] 09/05/2020 08:12:00 AM EST [place] ([facility]) Name Value Range Interpretation Code Description Data Julia rce(s) Supporting Document(s) albumin 25% transfused product: albumin 25% count: 4 Albumin 25% [place] ([facility]) ID Date Data Source [id number] 09/05/2020 08:12:00 AM EST [place] ([facility]) Name Value Range Interpretation Code Description Data Julia rce(s) Supporting Document(s) albumin 25% transfused product: albumin 25% count: 4 Albumin 25% [place] ([facility]) ID Date Data Source [id number] 08/30/2020 12:20:00 PM EST [place] ([facility]) Name Value Range Interpretation Code Description Data Julia rce(s) Supporting Document(s) albumin, body fluid 0.8 g/dL not established normal Albumin, Julien dy Fluid [place] ([facility]) source, body fluid albumin ascites normal Source, B jamil Fluid Albumin [place] ([facility]) ID Date Data Source [id number] 08/30/2020 12:20:00 PM EST [place] ([facility]) Name Value Range Interpretation Code Description Data Julia rce(s) Supporting Document(s) total protein, body fluid 1.4 g/dL not established normal Total Protein, Body Fluid [place] ([facility]) source, body fluid tot protein ascites normal Sourc e, Body Fluid Tot Protein [place] ([facility]) ID Date Data Source [id number] 08/30/2020 12:20:00 PM EST [place] ([facility]) Name Value Range Interpretation Code Description Data Julia rce(s) Supporting Document(s) source, body fluid ascites normal Source, Body Flui d [place] ([facility]) ascites fL color yellow colorless normal Ascites fL Color [place] ([facility]) appearance, body fluid hazy clear normal Appearance, B jamil Fluid [place] ([facility]) WBC body fluid 98 /uL 0-10 Above high normal WBC Body Fluid [place] ([facility]) RBC body fluid < 2 <2 normal RBC Body Fluid [place] ([facility]) bf mononuclear cell % 96.9 % 0-0 Above high normal Bf [place] nuclear Cell % [place] ([facility]) bf polymorphonuclear cell % 3.1 % 0-0 Above high no rmal Bf Polymorphonuclear Cell % [place] ([facility]) ID Date Data Source [id number] 08/30/2020 12:20:00 PM EST [place] ([facility]) Name Value Range Interpretation Code Description Data Julia rce(s) Supporting Document(s) source, body fluid albumin ascites normal Source, B jamil Fluid Albumin [place] ([facility]) albumin, body fluid 0.8 g/dL not established normal Albumin, Julien dy Fluid [place] ([facility]) ID Date Data Source [id number] 08/30/2020 12:20:00 PM EST [place] ([facility]) Name Value Range Interpretation Code Description Data Julia rce(s) Supporting Document(s) total protein, body fluid 1.4 g/dL not established normal Total Protein, Body Fluid [place] ([facility]) source, body fluid tot protein ascites normal Sourc e, Body Fluid Tot Protein [place] ([facility]) ID Date Data Source [id number] 08/30/2020 12:20:00 PM EST [place] ([facility]) Name Value Range Interpretation Code Description Data Julia rce(s) Supporting Document(s) source, body fluid ascites normal Source, Body Flui d [place] ([facility]) ascites fL color yellow colorless normal Ascites fL Color [place] ([facility]) WBC body fluid 98 /uL 0-10 Above high normal WBC Body Fluid [place] ([facility]) appearance, body fluid hazy clear normal Appearance, B jamil Fluid [place] ([facility]) bf mononuclear cell % 96.9 % 0-0 Above high normal Bf [place] nuclear Cell % [place] ([facility]) RBC body fluid < 2 <2 normal RBC Body Fluid [place] ([facility]) bf polymorphonuclear cell % 3.1 % 0-0 Above high no rmal Bf Polymorphonuclear Cell % [place] ([facility]) ID Date Data Source [id number] 08/30/2020 12:20:00 PM EST [place] ([facility]) Name Value Range Interpretation Code Description Data Julia rce(s) Supporting Document(s) albumin, body fluid 0.8 g/dL not established normal Albumin, Julien dy Fluid [place] ([facility]) source, body fluid albumin ascites normal Source, B jamil Fluid Albumin [place] ([facility]) ID Date Data Source [id number] 08/30/2020 12:20:00 PM EST [place] ([facility]) Name Value Range Interpretation Code Description Data Julia rce(s) Supporting Document(s) total protein, body fluid 1.4 g/dL not established normal Total Protein, Body Fluid [place] ([facility]) source, body fluid tot protein ascites normal Sourc e, Body Fluid Tot Protein [place] ([facility]) ID Date Data Source [id number] 08/30/2020 12:20:00 PM EST [place] ([facility]) Name Value Range Interpretation Code Description Data Julia rce(s) Supporting Document(s) source, body fluid ascites normal Source, Body Flui d [place] ([facility]) ascites fL color yellow colorless normal Ascites fL Color [place] ([facility]) WBC body fluid 98 /uL 0-10 Above high normal WBC Body Fluid [place] ([facility]) appearance, body fluid hazy clear normal Appearance, B jamil Fluid [place] ([facility]) RBC body fluid < 2 <2 normal RBC Body Fluid [place] ([facility]) bf mononuclear cell % 96.9 % 0-0 Above high normal Bf [place] nuclear Cell % [place] ([facility]) bf polymorphonuclear cell % 3.1 % 0-0 Above high no rmal Bf Polymorphonuclear Cell % [place] ([facility]) ID Date Data Source [id number] 08/30/2020 09:07:00 AM EST [place] ([facility]) Name Value Range Interpretation Code Description Data Julia rce(s) Supporting Document(s) albumin 25% transfused product: albumin 25% count: 4 Albumin 25% [place] ([facility]) ID Date Data Source [id number] 08/30/2020 09:07:00 AM EST [place] ([facility]) Name Value Range Interpretation Code Description Data Julia rce(s) Supporting Document(s) albumin 25% transfused product: albumin 25% count: 4 Albumin 25% [place] ([facility]) ID Date Data Source [id number] 08/30/2020 09:07:00 AM EST [place] ([facility]) Name Value Range Interpretation Code Description Data Julia rce(s) Supporting Document(s) albumin 25% transfused product: albumin 25% count: 4 Albumin 25% [place] ([facility]) ID Date Data Source [id number] 08/23/2020 01:53:00 PM EST [place] ([facility]) Name Value Range Interpretation Code Description Data Julia rce(s) Supporting Document(s) albumin, body fluid 0.9 g/dL not established normal Albumin, Julien dy Fluid [place] ([facility]) source, body fluid albumin ascites normal Source, B jamil Fluid Albumin [place] ([facility]) ID Date Data Source [id number] 08/23/2020 01:53:00 PM EST [place] ([facility]) Name Value Range Interpretation Code Description Data Julia rce(s) Supporting Document(s) total protein, body fluid 1.4 g/dL not established normal Total Protein, Body Fluid [place] ([facility]) source, body fluid tot protein ascites normal Sourc e, Body Fluid Tot Protein [place] ([facility]) ID Date Data Source [id number] 08/23/2020 01:53:00 PM EST [place] ([facility]) Name Value Range Interpretation Code Description Data Julia rce(s) Supporting Document(s) source, body fluid ascites normal Source, Body Flui d [place] ([facility]) ascites fL color yellow colorless normal Ascites fL Color [place] ([facility]) WBC body fluid 160 /uL 0-10 Above high normal WBC Body Fluid [place] ([facility]) appearance, body fluid cloudy clear normal Appearance, B jamil Fluid [place] ([facility]) RBC body fluid 2 10 <2 normal RBC Body Fluid [place] ([facility]) bf mononuclear cell % 96.3 % 0-0 Above high normal Bf [place] nuclear Cell % [place] ([facility]) bf polymorphonuclear cell % 3.7 % 0-0 Above high no rmal Bf Polymorphonuclear Cell % [place] ([facility]) ID Date Data Source [id number] 08/23/2020 01:53:00 PM EST [place] ([facility]) Name Value Range Interpretation Code Description Data Julia rce(s) Supporting Document(s) albumin, body fluid 0.9 g/dL not established normal Albumin, Julien dy Fluid [place] ([facility]) source, body fluid albumin ascites normal Source, B jamil Fluid Albumin [place] ([facility]) ID Date Data Source [id number] 08/23/2020 01:53:00 PM EST [place] ([facility]) Name Value Range Interpretation Code Description Data Julia rce(s) Supporting Document(s) total protein, body fluid 1.4 g/dL not established normal Total Protein, Body Fluid [place] ([facility]) source, body fluid tot protein ascites normal Sourc e, Body Fluid Tot Protein [place] ([facility]) ID Date Data Source [id number] 08/23/2020 01:53:00 PM EST [place] ([facility]) Name Value Range Interpretation Code Description Data Julia rce(s) Supporting Document(s) source, body fluid ascites normal Source, Body Flui d [place] ([facility]) ascites fL color yellow colorless normal Ascites fL Color [place] ([facility]) appearance, body fluid cloudy clear normal Appearance, B jamil Fluid [place] ([facility]) WBC body fluid 160 /uL 0-10 Above high normal WBC Body Fluid [place] ([facility]) RBC body fluid 2 10 <2 normal RBC Body Fluid [place] ([facility]) bf polymorphonuclear cell % 3.7 % 0-0 Above high no rmal Bf Polymorphonuclear Cell % [place] ([facility]) bf mononuclear cell % 96.3 % 0-0 Above high normal Bf [place] nuclear Cell % [place] ([facility]) ID Date Data Source [id number] 08/23/2020 01:53:00 PM EST [place] ([facility]) Name Value Range Interpretation Code Description Data Julia rce(s) Supporting Document(s) source, body fluid albumin ascites normal Source, B jamil Fluid Albumin [place] ([facility]) albumin, body fluid 0.9 g/dL not established normal Albumin, Julien dy Fluid [place] ([facility]) ID Date Data Source [id number] 08/23/2020 01:53:00 PM EST [place] ([facility]) Name Value Range Interpretation Code Description Data Julia rce(s) Supporting Document(s) total protein, body fluid 1.4 g/dL not established normal Total Protein, Body Fluid [place] ([facility]) source, body fluid tot protein ascites normal Sourc e, Body Fluid Tot Protein [place] ([facility]) ID Date Data Source [id number] 08/23/2020 01:53:00 PM EST [place] ([facility]) Name Value Range Interpretation Code Description Data Julia rce(s) Supporting Document(s) source, body fluid ascites normal Source, Body Flui d [place] ([facility]) ascites fL color yellow colorless normal Ascites fL Color [place] ([facility]) WBC body fluid 160 /uL 0-10 Above high normal WBC Body Fluid [place] ([facility]) appearance, body fluid cloudy clear normal Appearance, B jamil Fluid [place] ([facility]) RBC body fluid 2 10 <2 normal RBC Body Fluid [place] ([facility]) bf mononuclear cell % 96.3 % 0-0 Above high normal Bf [place] nuclear Cell % [place] ([facility]) bf polymorphonuclear cell % 3.7 % 0-0 Above high no rmal Bf Polymorphonuclear Cell % [place] ([facility]) ID Date Data Source [id number] 08/23/2020 01:53:00 PM EST [place] ([facility]) Name Value Range Interpretation Code Description Data Julia rce(s) Supporting Document(s) albumin, body fluid 0.9 g/dL not established normal Albumin, Julien dy Fluid [place] ([facility]) source, body fluid albumin ascites normal Source, B jamil Fluid Albumin [place] ([facility]) ID Date Data Source [id number] 08/23/2020 01:53:00 PM EST [place] ([facility]) Name Value Range Interpretation Code Description Data Julia rce(s) Supporting Document(s) total protein, body fluid 1.4 g/dL not established normal Total Protein, Body Fluid [place] ([facility]) source, body fluid tot protein ascites normal Sourc e, Body Fluid Tot Protein [place] ([facility]) ID Date Data Source [id number] 08/23/2020 01:53:00 PM EST [place] ([facility]) Name Value Range Interpretation Code Description Data Julia rce(s) Supporting Document(s) source, body fluid ascites normal Source, Body Flui d [place] ([facility]) ascites fL color yellow colorless normal Ascites fL Color [place] ([facility]) appearance, body fluid cloudy clear normal Appearance, B jamil Fluid [place] ([facility]) WBC body fluid 160 /uL 0-10 Above high normal WBC Body Fluid [place] ([facility]) RBC body fluid 2 10 <2 normal RBC Body Fluid [place] ([facility]) bf mononuclear cell % 96.3 % 0-0 Above high normal Bf [place] nuclear Cell % [place] ([facility]) bf polymorphonuclear cell % 3.7 % 0-0 Above high no rmal Bf Polymorphonuclear Cell % [place] ([facility]) ID Date Data Source [id number] 08/23/2020 11:43:00 AM EST [place] ([facility]) Name Value Range Interpretation Code Description Data Julia rce(s) Supporting Document(s) albumin 25% transfused product: albumin 25% count: 4 Albumin 25% [place] ([facility]) ID Date Data Source [id number] 08/23/2020 11:43:00 AM EST [place] ([facility]) Name Value Range Interpretation Code Description Data Julia rce(s) Supporting Document(s) albumin 25% transfused product: albumin 25% count: 4 Albumin 25% [place] ([facility]) ID Date Data Source [id number] 08/23/2020 11:43:00 AM EST [place] ([facility]) Name Value Range Interpretation Code Description Data Julia rce(s) Supporting Document(s) albumin 25% transfused product: albumin 25% count: 4 Albumin 25% [place] ([facility]) ID Date Data Source [id number] 08/23/2020 11:43:00 AM EST [place] ([facility]) Name Value Range Interpretation Code Description Data Julia rce(s) Supporting Document(s) albumin 25% transfused product: albumin 25% count: 4 Albumin 25% [place] ([facility]) ID Date Data Source [id number] 08/16/2020 11:48:00 AM EST [place] ([facility]) Name Value Range Interpretation Code Description Data Julia rce(s) Supporting Document(s) Ab screen gel manual negative normal Ab Screen Gel M anual [place] ([facility]) ID Date Data Source [id number] 08/16/2020 11:48:00 AM EST [place] ([facility]) Name Value Range Interpretation Code Description Data Julia rce(s) Supporting Document(s) blood type A positive normal Blood Type [place] ([facility]) ID Date Data Source [id number] 08/16/2020 11:48:00 AM EST [place] ([facility]) Name Value Range Interpretation Code Description Data Julia rce(s) Supporting Document(s) glucose, fasting 110 mg/dL 70-100 Above high normal Glucose, Fas ting [place] ([facility]) blood urea nitrogen 29 mg/dL 7-18 Above high normal Blood Ure a Nitrogen [place] ([facility]) creatinine for GFR 1.03 mg/dL 0.55-1.30 normal Creatinine for GF R [place] ([facility]) glomerular filtration rate >51 normal Glomerula r Filtration Rate [place] ([facility]) potassium serum 5.0 mEq/L 3.5-5.1 normal Potassium Serum ATHE NA ([facility]) sodium level 128 mEq/L 136-145 Below low normal Sodium Level AT[facility] NA ([facility]) chloride level 97 mEq/L 98-107 Below low normal Chloride Level [place] ([facility]) carbon dioxide level 25 mEq/L 21-32 normal Carbon Dioxide Level [place] ([facility]) calcium level 9.5 mg/dL 8.5-10.1 normal Calcium Level [place] ( [facility]) anion gap 6 mEq/L 8-16 Below low normal Anion Gap [place] ( [facility]) ID Date Data Source [id number] 08/16/2020 11:48:00 AM EST [facility]) Name Value Range Interpretation Code Description Data Julia rce(s) Supporting Document(s) prothrombin time 19.4 seconds 12.5-14.3 Above high normal Prothrombi n Time [place] ([facility]) partial thromboplastin time 39.9 seconds 24.2-38.5 Above high no rmal Partial Thromboplastin Time [place] ([facility]) INR normal Inr [place] ([facility]) ID Date Data Source [id number] 08/16/2020 11:48:00 AM EST [place] ([facility]) Name Value Range Interpretation Code Description Data Julia rce(s) Supporting Document(s) white blood count 6.8 10 4.0-10.0 normal White Blood Count [place] ([facility]) red blood count 3.49 10 4.00-5.40 Below low normal Red Blood Coun t [place] ([facility]) hematocrit 32.5 % 36.0-47.0 Below low normal Hematocrit [place] ( [facility]) hemoglobin 11.3 g/dL 12.0-15.5 Below low normal Hemoglobin [place] ( [facility]) mean corpuscular hemoglobin 32.4 pg 27.0-33.0 normal Mean Corpuscular Hemoglobin [place] ([facility]) mean corpuscular volume 93.1 fL 80.0-96.0 normal Mean Corpusc ular Volume [place] ([facility]) red cell distribution width 18.4 % 11.5-14.5 Above high no rmal Red Cell Distribution Width [place] ([facility]) mean corpuscular HGB conc 34.8 g/dL 32.0-36.5 normal Mean Corpu scular HGB Conc [place] ([facility]) platelet count, automated 138 10 150-450 Below low denice l Platelet Count, Automated [place] ([facility]) lymph % 11.3 % 24.0-44.0 Below low normal Lymph % [place] ( [facility]) neutrophils % 75.2 % 36.0-66.0 Above high normal Neutrophils % A [place] ([facility]) eos % 0.9 % 0.0-3.0 normal Eos % [place] ([facility]) mono % 11.6 % 0.0-5.0 Above high normal [place] % [place] ([facility]) nucleated red blood cell % 0.0 % 0-0 normal Nucleated Red Blood Cell % [place] ([facility]) immature granulocyte % 0.4 % 0-3.0 normal Immature Gran ulocyte % [place] ([facility]) baso % 0.6 % 0.0-1.0 normal Baso % [place] ([facility]) neutrophils # 5.1 10 1.5-8.5 normal Neutrophils # [place] ( [facility]) lymph # 0.8 10 1.5-5.0 Below low normal Lymph # [place] ( [facility]) mono # 0.8 10 0.0-0.8 normal [place] # [place] ([facility]) baso # 0.0 10 0.0-0.2 normal Baso # [place] ([facility]) eos # 0.1 10 0.0-0.5 normal Eos # [place] ([facility]) ID Date Data Source [id number] 08/16/2020 11:48:00 AM EST [place] ([facility]) Name Value Range Interpretation Code Description Data Julia rce(s) Supporting Document(s) Ab screen gel manual negative normal Ab Screen Gel M anual [place] ([facility]) ID Date Data Source [id number] 08/16/2020 11:48:00 AM EST [place] ([facility]) Name Value Range Interpretation Code Description Data Julia rce(s) Supporting Document(s) blood type A positive normal Blood Type [place] ([facility]) ID Date Data Source [id number] 08/16/2020 11:48:00 AM EST [place] ([facility]) Name Value Range Interpretation Code Description Data Julia rce(s) Supporting Document(s) glucose, fasting 110 mg/dL 70-100 Above high normal Glucose, Fas ting [place] ([facility]) creatinine for GFR 1.03 mg/dL 0.55-1.30 normal Creatinine for GF R [place] ([facility]) blood urea nitrogen 29 mg/dL 7-18 Above high normal Blood Ure a Nitrogen [place] ([facility]) glomerular filtration rate >51 normal Glomerula r Filtration Rate [place] ([facility]) sodium level 128 mEq/L 136-145 Below low normal Sodium Level [place] NA ([facility]) chloride level 97 mEq/L 98-107 Below low normal Chloride Level [place] ([facility]) potassium serum 5.0 mEq/L 3.5-5.1 normal Potassium Serum [place] [place] ([facility]) anion gap 6 mEq/L 8-16 Below low normal Anion Gap [place] ( [facility]) carbon dioxide level 25 mEq/L 21-32 normal Carbon Dioxide Level [place] ([facility]) calcium level 9.5 mg/dL 8.5-10.1 normal Calcium Level [place] ( [facility]) ID Date Data Source [id number] 08/16/2020 11:48:00 AM EST [place] ([facility]) Name Value Range Interpretation Code Description Data Julia rce(s) Supporting Document(s) prothrombin time 19.4 seconds 12.5-14.3 Above high normal Prothrombi n Time [place] ([facility]) partial thromboplastin time 39.9 seconds 24.2-38.5 Above high no rmal Partial Thromboplastin Time [place] ([facility]) INR normal Inr [place] ([facility]) ID Date Data Source [id number] 08/16/2020 11:48:00 AM EST [place] ([facility]) Name Value Range Interpretation Code Description Data Julia rce(s) Supporting Document(s) white blood count 6.8 10 4.0-10.0 normal White Blood Count [place] ([facility]) hematocrit 32.5 % 36.0-47.0 Below low normal Hematocrit [place] ( [facility]) red blood count 3.49 10 4.00-5.40 Below low normal Red Blood Coun t [place] ([facility]) hemoglobin 11.3 g/dL 12.0-15.5 Below low normal Hemoglobin [place] ( [facility]) mean corpuscular hemoglobin 32.4 pg 27.0-33.0 normal Mean Corpuscular Hemoglobin [place] ([facility]) mean corpuscular volume 93.1 fL 80.0-96.0 normal Mean Corpusc ular Volume [place] ([facility]) mean corpuscular HGB conc 34.8 g/dL 32.0-36.5 normal Mean Corpu scular HGB Conc [place] ([facility]) red cell distribution width 18.4 % 11.5-14.5 Above high no rmal Red Cell Distribution Width [place] ([facility]) platelet count, automated 138 10 150-450 Below low denice l Platelet Count, Automated [place] ([facility]) neutrophils % 75.2 % 36.0-66.0 Above high normal Neutrophils % A [place] ([facility]) lymph % 11.3 % 24.0-44.0 Below low normal Lymph % [place] ( [facility]) mono % 11.6 % 0.0-5.0 Above high normal [place] % [place] ([facility]) eos % 0.9 % 0.0-3.0 normal Eos % [place] ([facility]) baso % 0.6 % 0.0-1.0 normal Baso % [place] ([facility]) immature granulocyte % 0.4 % 0-3.0 normal Immature Gran ulocyte % [place] ([facility]) nucleated red blood cell % 0.0 % 0-0 normal Nucleated Red Blood Cell % [place] ([facility]) neutrophils # 5.1 10 1.5-8.5 normal Neutrophils # [place] ( [facility]) eos # 0.1 10 0.0-0.5 normal Eos # [place] ([facility]) mono # 0.8 10 0.0-0.8 normal [place] # [place] ([facility]) lymph # 0.8 10 1.5-5.0 Below low normal Lymph # [place] ( [facility]) baso # 0.0 10 0.0-0.2 normal Baso # [place] ([facility]) ID Date Data Source [id number] 08/16/2020 11:48:00 AM EST [place] ([facility]) Name Value Range Interpretation Code Description Data Julia rce(s) Supporting Document(s) Ab screen gel manual negative normal Ab Screen Gel M anual [place] ([facility]) ID Date Data Source [id number] 08/16/2020 11:48:00 AM EST [place] ([facility]) Name Value Range Interpretation Code Description Data Julia rce(s) Supporting Document(s) blood type A positive normal Blood Type [place] ([facility]) ID Date Data Source [id number] 08/16/2020 11:48:00 AM EST [place] ([facility]) Name Value Range Interpretation Code Description Data Julia rce(s) Supporting Document(s) glucose, fasting 110 mg/dL 70-100 Above high normal Glucose, Fas ting [place] ([facility]) blood urea nitrogen 29 mg/dL 7-18 Above high normal Blood Ure a Nitrogen [place] ([facility]) creatinine for GFR 1.03 mg/dL 0.55-1.30 normal Creatinine for GF R [place] ([facility]) glomerular filtration rate >51 normal [place]omer[place] r Filtration Rate [place] ([facility]) sodium level 128 mEq/L 136-145 Below low normal Sodium Level [place] [place] ([facility]) potassium serum 5.0 mEq/L 3.5-5.1 normal Potassium Serum [facility] [place] ([facility]) chloride level 97 mEq/L 98-107 Below low normal Chloride Level [place] ([facility]) carbon dioxide level 25 mEq/L 21-32 normal Carbon Dioxide Level [place] ([facility]) anion gap 6 mEq/L 8-16 Below low normal Anion Gap [place] ( [facility]) calcium level 9.5 mg/dL 8.5-10.1 normal Calcium Level [place] ( [facility]) ID Date Data Source [id number] 08/16/2020 11:48:00 AM EST [facility]) Name Value Range Interpretation Code Description Data Julia rce(s) Supporting Document(s) prothrombin time 19.4 seconds 12.5-14.3 Above high normal Prothrombi n Time [place] ([facility]) partial thromboplastin time 39.9 seconds 24.2-38.5 Above high no rmal Partial Thromboplastin Time [place] ([facility]) INR normal Inr [place] ([facility]) ID Date Data Source [id number] 08/16/2020 11:48:00 AM EST [place] ([facility]) Name Value Range Interpretation Code Description Data Julia rce(s) Supporting Document(s) white blood count 6.8 10 4.0-10.0 normal White Blood Count [place] ([facility]) hemoglobin 11.3 g/dL 12.0-15.5 Below low normal Hemoglobin [place] ( [facility]) red blood count 3.49 10 4.00-5.40 Below low normal Red Blood Coun t [place] ([facility]) hematocrit 32.5 % 36.0-47.0 Below low normal Hematocrit [place] ( [facility]) mean corpuscular volume 93.1 fL 80.0-96.0 normal Mean Corpusc ular Volume [place] ([facility]) mean corpuscular HGB conc 34.8 g/dL 32.0-36.5 normal Mean Corpu scular HGB Conc [place] ([facility]) mean corpuscular hemoglobin 32.4 pg 27.0-33.0 normal Mean Corpuscular Hemoglobin [place] ([facility]) red cell distribution width 18.4 % 11.5-14.5 Above high no rmal Red Cell Distribution Width [place] ([facility]) platelet count, automated 138 10 150-450 Below low denice l Platelet Count, Automated [place] ([facility]) neutrophils % 75.2 % 36.0-66.0 Above high normal Neutrophils % A [place] ([facility]) lymph % 11.3 % 24.0-44.0 Below low normal Lymph % [place] ( [facility]) eos % 0.9 % 0.0-3.0 normal Eos % [place] ([facility]) mono % 11.6 % 0.0-5.0 Above high normal [place] % [place] ([facility]) baso % 0.6 % 0.0-1.0 normal Baso % [place] ([facility]) immature granulocyte % 0.4 % 0-3.0 normal Immature Gran ulocyte % [place] ([facility]) nucleated red blood cell % 0.0 % 0-0 normal Nucleated Red Blood Cell % [place] ([facility]) neutrophils # 5.1 10 1.5-8.5 normal Neutrophils # [place] ( [facility]) lymph # 0.8 10 1.5-5.0 Below low normal Lymph # [place] ( [facility]) mono # 0.8 10 0.0-0.8 normal [place] # [place] ([facility]) eos # 0.1 10 0.0-0.5 normal Eos # [place] ([facility]) baso # 0.0 10 0.0-0.2 normal Baso # [place] ([facility]) ID Date Data Source [id number] 08/16/2020 11:48:00 AM EST [place] ([facility]) Name Value Range Interpretation Code Description Data Julia rce(s) Supporting Document(s) Ab screen gel manual negative normal Ab Screen Gel M anual [place] ([facility]) ID Date Data Source [id number] 08/16/2020 11:48:00 AM EST [place] ([facility]) Name Value Range Interpretation Code Description Data Julia rce(s) Supporting Document(s) blood type A positive normal Blood Type [place] ([facility]) ID Date Data Source [id number] 08/16/2020 11:48:00 AM EST [place] ([facility]) Name Value Range Interpretation Code Description Data Julia rce(s) Supporting Document(s) blood urea nitrogen 29 mg/dL 7-18 Above high normal Blood Ure a Nitrogen [place] ([facility]) glucose, fasting 110 mg/dL 70-100 Above high normal Glucose, Fas ting [place] ([facility]) creatinine for GFR 1.03 mg/dL 0.55-1.30 normal Creatinine for GF R [place] ([facility]) glomerular filtration rate >51 normal Glomer[place] r Filtration Rate [place] ([facility]) potassium serum 5.0 mEq/L 3.5-5.1 normal Potassium Serum [facility] NA ([facility]) sodium level 128 mEq/L 136-145 Below low normal Sodium Level [facility] ([facility]) carbon dioxide level 25 mEq/L 21-32 normal Carbon Dioxide Level [place] ([facility]) chloride level 97 mEq/L 98-107 Below low normal Chloride Level [place] ([facility]) anion gap 6 mEq/L 8-16 Below low normal Anion Gap [place] ( [facility]) calcium level 9.5 mg/dL 8.5-10.1 normal Calcium Level [place] ( [facility]) ID Date Data Source [id number] 08/16/2020 11:48:00 AM EST [place] ([facility]) Name Value Range Interpretation Code Description Data Julia rce(s) Supporting Document(s) prothrombin time 19.4 seconds 12.5-14.3 Above high normal Prothrombi n Time [place] ([facility]) INR normal Inr [place] ([facility]) partial thromboplastin time 39.9 seconds 24.2-38.5 Above high no rmal Partial Thromboplastin Time [place] ([facility]) ID Date Data Source [id number] 08/16/2020 11:48:00 AM EST [place] ([facility]) Name Value Range Interpretation Code Description Data Julia rce(s) Supporting Document(s) white blood count 6.8 10 4.0-10.0 normal White Blood Count [place] ([facility]) red blood count 3.49 10 4.00-5.40 Below low normal Red Blood Coun t [place] ([facility]) hemoglobin 11.3 g/dL 12.0-15.5 Below low normal Hemoglobin [place] ( [facility]) hematocrit 32.5 % 36.0-47.0 Below low normal Hematocrit [place] ( [facility]) mean corpuscular volume 93.1 fL 80.0-96.0 normal Mean Corpusc ular Volume [place] ([facility]) mean corpuscular hemoglobin 32.4 pg 27.0-33.0 normal Mean Corpuscular Hemoglobin [place] ([facility]) mean corpuscular HGB conc 34.8 g/dL 32.0-36.5 normal Mean Corpu scular HGB Conc [place] ([facility]) neutrophils % 75.2 % 36.0-66.0 Above high normal Neutrophils % A [place] ([facility]) platelet count, automated 138 10 150-450 Below low denice l Platelet Count, Automated [place] ([facility]) red cell distribution width 18.4 % 11.5-14.5 Above high no rmal Red Cell Distribution Width [place] ([facility]) lymph % 11.3 % 24.0-44.0 Below low normal Lymph % [place] ( [facility]) mono % 11.6 % 0.0-5.0 Above high normal [place] % [place] ([facility]) immature granulocyte % 0.4 % 0-3.0 normal Immature Gran ulocyte % [place] ([facility]) baso % 0.6 % 0.0-1.0 normal Baso % [place] ([facility]) eos % 0.9 % 0.0-3.0 normal Eos % [place] ([facility]) nucleated red blood cell % 0.0 % 0-0 normal Nucleated Red Blood Cell % [place] ([facility]) neutrophils # 5.1 10 1.5-8.5 normal Neutrophils # [place] ( [facility]) mono # 0.8 10 0.0-0.8 normal [place] # [place] ([facility]) eos # 0.1 10 0.0-0.5 normal Eos # [place] ([facility]) lymph # 0.8 10 1.5-5.0 Below low normal Lymph # [place] ( [facility]) baso # 0.0 10 0.0-0.2 normal Baso # [place] ([facility]) ID Date Data Source [id number] 08/16/2020 09:04:00 AM EST [place] ([facility]) Name Value Range Interpretation Code Description Data Julia rce(s) Supporting Document(s) albumin 25% transfused product: albumin 25% count: 4 Albumin 25% [place] ([facility]) ID Date Data Source [id number] 08/16/2020 09:04:00 AM EST [place] ([facility]) Name Value Range Interpretation Code Description Data Julia rce(s) Supporting Document(s) total protein, body fluid 1.4 g/dL not established normal Total Protein, Body Fluid [place] ([facility]) source, body fluid tot protein ascites normal Sourc e, Body Fluid Tot Protein [place] ([facility]) ID Date Data Source [id number] 08/16/2020 09:04:00 AM EST [place] ([facility]) Name Value Range Interpretation Code Description Data Julia rce(s) Supporting Document(s) ascites fL color yellow colorless normal Ascites fL Color AT [place] ([facility]) source, body fluid ascites normal Source, Body Flui d [place] ([facility]) WBC body fluid 163 /uL 0-10 Above high normal WBC Body Fluid [place] ([facility]) appearance, body fluid cloudy clear normal Appearance, B jamil Fluid [place] ([facility]) bf mononuclear cell % 97.6 % 0-0 Above high normal Bf [place] nuclear Cell % [place] ([facility]) RBC body fluid < 2 <2 normal RBC Body Fluid [place] ([facility]) bf polymorphonuclear cell % 2.4 % 0-0 Above high no rmal Bf Polymorphonuclear Cell % [place] ([facility]) ID Date Data Source [id number] 08/16/2020 09:04:00 AM EST [place] ([facility]) Name Value Range Interpretation Code Description Data Julia rce(s) Supporting Document(s) albumin, body fluid 0.7 g/dL not established normal Albumin, Julien dy Fluid [place] ([facility]) source, body fluid albumin ascites normal Source, B jamil Fluid Albumin [place] ([facility]) ID Date Data Source [id number] 08/16/2020 09:04:00 AM EST [place] ([facility]) Name Value Range Interpretation Code Description Data Julia rce(s) Supporting Document(s) albumin 25% transfused product: albumin 25% count: 4 Albumin 25% [place] ([facility]) ID Date Data Source [id number] 08/16/2020 09:04:00 AM EST [place] ([facility]) Name Value Range Interpretation Code Description Data Julia rce(s) Supporting Document(s) total protein, body fluid 1.4 g/dL not established normal Total Protein, Body Fluid [place] ([facility]) source, body fluid tot protein ascites normal Sourc e, Body Fluid Tot Protein [place] ([facility]) ID Date Data Source [id number] 08/16/2020 09:04:00 AM EST [place] ([facility]) Name Value Range Interpretation Code Description Data Julia rce(s) Supporting Document(s) source, body fluid ascites normal Source, Body Flui d [place] ([facility]) ascites fL color yellow colorless normal Ascites fL Color AT [place] ([facility]) appearance, body fluid cloudy clear normal Appearance, B jamil Fluid [place] ([facility]) WBC body fluid 163 /uL 0-10 Above high normal WBC Body Fluid [place] ([facility]) bf mononuclear cell % 97.6 % 0-0 Above high normal Bf [place] nuclear Cell % [place] ([facility]) RBC body fluid < 2 <2 normal RBC Body Fluid [place] ([facility]) bf polymorphonuclear cell % 2.4 % 0-0 Above high no rmal Bf Polymorphonuclear Cell % [place] ([facility]) ID Date Data Source [id number] 08/16/2020 09:04:00 AM EST [place] ([facility]) Name Value Range Interpretation Code Description Data Julia rce(s) Supporting Document(s) albumin, body fluid 0.7 g/dL not established normal Albumin, Julien dy Fluid [place] ([facility]) source, body fluid albumin ascites normal Source, B jamil Fluid Albumin [place] ([facility]) ID Date Data Source [id number] 08/16/2020 09:04:00 AM EST [place] ([facility]) Name Value Range Interpretation Code Description Data Julia rce(s) Supporting Document(s) albumin 25% transfused product: albumin 25% count: 4 Albumin 25% [place] ([facility]) ID Date Data Source [id number] 08/16/2020 09:04:00 AM EST [place] ([facility]) Name Value Range Interpretation Code Description Data Julia rce(s) Supporting Document(s) total protein, body fluid 1.4 g/dL not established normal Total Protein, Body Fluid [place] ([facility]) source, body fluid tot protein ascites normal Sourc e, Body Fluid Tot Protein [place] ([facility]) ID Date Data Source [id number] 08/16/2020 09:04:00 AM EST [place] ([facility]) Name Value Range Interpretation Code Description Data Julia rce(s) Supporting Document(s) source, body fluid ascites normal Source, Body Flui d [place] ([facility]) ascites fL color yellow colorless normal Ascites fL Color AT [place] ([facility]) appearance, body fluid cloudy clear normal Appearance, B jamil Fluid [place] ([facility]) RBC body fluid < 2 <2 normal RBC Body Fluid [place] ([facility]) WBC body fluid 163 /uL 0-10 Above high normal WBC Body Fluid [place] ([facility]) bf polymorphonuclear cell % 2.4 % 0-0 Above high no rmal Bf Polymorphonuclear Cell % [place] ([facility]) bf mononuclear cell % 97.6 % 0-0 Above high normal Bf [place] nuclear Cell % [place] ([facility]) ID Date Data Source [id number] 08/16/2020 09:04:00 AM EST [place] ([facility]) Name Value Range Interpretation Code Description Data Julia rce(s) Supporting Document(s) albumin, body fluid 0.7 g/dL not established normal Albumin, Julien dy Fluid [place] ([facility]) source, body fluid albumin ascites normal Source, B jamil Fluid Albumin [place] ([facility]) ID Date Data Source [id number] 08/16/2020 09:04:00 AM EST [place] ([facility]) Name Value Range Interpretation Code Description Data Julia rce(s) Supporting Document(s) albumin 25% transfused product: albumin 25% count: 4 Albumin 25% [place] ([facility]) ID Date Data Source [id number] 08/16/2020 09:04:00 AM EST [place] ([facility]) Name Value Range Interpretation Code Description Data Julia rce(s) Supporting Document(s) total protein, body fluid 1.4 g/dL not established normal Total Protein, Body Fluid [place] ([facility]) source, body fluid tot protein ascites normal Sourc e, Body Fluid Tot Protein [place] ([facility]) ID Date Data Source [id number] 08/16/2020 09:04:00 AM EST [place] ([facility]) Name Value Range Interpretation Code Description Data Julia rce(s) Supporting Document(s) source, body fluid ascites normal Source, Body Flui d [place] ([facility]) ascites fL color yellow colorless normal Ascites fL Color AT [place] ([facility]) appearance, body fluid cloudy clear normal Appearance, B jamil Fluid [place] ([facility]) WBC body fluid 163 /uL 0-10 Above high normal WBC Body Fluid [place] ([facility]) bf mononuclear cell % 97.6 % 0-0 Above high normal Bf [place] nuclear Cell % [place] ([facility]) RBC body fluid < 2 <2 normal RBC Body Fluid [place] ([facility]) bf polymorphonuclear cell % 2.4 % 0-0 Above high no rmal Bf Polymorphonuclear Cell % [place] ([facility]) ID Date Data Source [id number] 08/16/2020 09:04:00 AM EST [place] ([facility]) Name Value Range Interpretation Code Description Data Julia rce(s) Supporting Document(s) albumin, body fluid 0.7 g/dL not established normal Albumin, Julien dy Fluid [place] ([facility]) source, body fluid albumin ascites normal Source, B jamil Fluid Albumin [place] ([facility]) ID Date Data Source [id number] 08/14/2020 04:00:00 PM EST [place] ([facility]) Name Value Range Interpretation Code Description Data Julia rce(s) Supporting Document(s) ID Date Data Source [id number] 08/14/2020 04:00:00 PM EST [place] ([facility]) Name Value Range Interpretation Code Description Data Julia rce(s) Supporting Document(s) ID Date Data Source [id number] 08/14/2020 04:00:00 PM EST [place] ([facility]) Name Value Range Interpretation Code Description Data Julia rce(s) Supporting Document(s) ID Date Data Source [id number] 08/14/2020 04:00:00 PM EST [place] ([facility]) Name Value Range Interpretation Code Description Data Julia rce(s) Supporting Document(s) ID Date Data Source [id number] 08/10/2020 07:19:00 AM EDT [place] ([facility]) Name Value Range Interpretation Code Description Data Julia rce(s) Supporting Document(s) glucose, fasting 130 mg/dL 70-100 Above high normal Glucose, Fas ting [place] ([facility]) creatinine for GFR 1.49 mg/dL 0.55-1.30 Above high normal Creatinine for GFR [place] ([facility]) blood urea nitrogen 34 mg/dL 7-18 Above high normal Blood Ure a Nitrogen [place] ([facility]) glomerular filtration rate >51 Below low normal Deidra merular Filtration Rate [place] ([facility]) sodium level 127 mEq/L 136-145 Below low normal Sodium Level [place] ([facility]) potassium serum 5.3 mEq/L 3.5-5.1 Above high normal Potassium Ser um [place] ([facility]) chloride level 93 mEq/L 98-107 Below low normal Chloride Level [place] ([facility]) calcium level 9.1 mg/dL 8.5-10.1 normal Calcium Level [place] ( [facility]) carbon dioxide level 28 mEq/L 21-32 normal Carbon Dioxide Level [place] ([facility]) anion gap 6 mEq/L 8-16 Below low normal Anion Gap [place] ( [facility]) ID Date Data Source [id number] 08/10/2020 07:19:00 AM EDT [place] ([facility]) Name Value Range Interpretation Code Description Data Julia rce(s) Supporting Document(s) ALT/SGPT 30 U/L 12-78 normal ALT/SGPT [place] ([facility]) AST/SGOT 51 U/L 7-37 Above high normal AST/SGOT [place] ([facility]) alkaline phosphatase 136 U/L 45-117 Above high normal Alkaline Phosphatase [place] ([facility]) total protein 7.1 gm/dL 6.4-8.2 normal Total Protein [place] ( [facility]) bilirubin,direct 1.6 mg/dL 0.0-0.2 Above high normal Bilirubin,di rect [place] ([facility]) bilirubin,total 4.7 mg/dL 0.2-1.0 Above high normal Bilirubin,tot al [place] ([facility]) albumin/globulin ratio 1.2-2.2 normal Albumin/globu adam Ratio [place] ([facility]) albumin 3.8 gm/dL 3.2-5.2 normal Albumin [place] ([facility]) ID Date Data Source [id number] 08/10/2020 07:19:00 AM EDT [place] ([facility]) Name Value Range Interpretation Code Description Data Julia rce(s) Supporting Document(s) sodium,random urine 16 mEq/L normal Sodium,random Ur ine [place] ([facility]) ID Date Data Source [id number] 08/10/2020 07:19:00 AM EDT [place] ([facility]) Name Value Range Interpretation Code Description Data Julia rce(s) Supporting Document(s) creatinine,random urine 118.0 mg/dL normal Creatinine, random Urine [place] ([facility]) ID Date Data Source [id number] 08/10/2020 07:19:00 AM EDT [place] ([facility]) Name Value Range Interpretation Code Description Data Julia rce(s) Supporting Document(s) white blood count 8.6 10 4.0-10.0 normal White Blood Count [place] ([facility]) red blood count 3.14 10 4.00-5.40 Below low normal Red Blood Coun t [place] ([facility]) hematocrit 28.6 % 36.0-47.0 Below low normal Hematocrit [place] ( [facility]) hemoglobin 10.1 g/dL 12.0-15.5 Below low normal Hemoglobin [place] ( [facility]) mean corpuscular hemoglobin 32.2 pg 27.0-33.0 normal Mean Corpuscular Hemoglobin [place] ([facility]) mean corpuscular HGB conc 35.3 g/dL 32.0-36.5 normal Mean Corpu scular HGB Conc [place] ([facility]) mean corpuscular volume 91.1 fL 80.0-96.0 normal Mean Corpusc ular Volume [place] ([facility]) nucleated red blood cell % 0.0 % 0-0 normal Nucleated Red Blood Cell % [place] ([facility]) red cell distribution width 17.7 % 11.5-14.5 Above high no rmal Red Cell Distribution Width [place] ([facility]) platelet count, automated 118 10 150-450 Below low denice l Platelet Count, Automated [place] ([facility]) ID Date Data Source [id number] 08/10/2020 07:19:00 AM EDT [facility]) Name Value Range Interpretation Code Description Data Julia rce(s) Supporting Document(s) blood urea nitrogen 34 mg/dL 7-18 Above high normal Blood Ure a Nitrogen [place] ([facility]) glucose, fasting 130 mg/dL 70-100 Above high normal Glucose, Fas ting [facility]) creatinine for GFR 1.49 mg/dL 0.55-1.30 Above high normal Creatinine for GFR [place] ([facility]) glomerular filtration rate >51 Below low normal Deidra merular Filtration Rate [place] ([facility]) sodium level 127 mEq/L 136-145 Below low normal Sodium Level [place] ([facility]) chloride level 93 mEq/L 98-107 Below low normal Chloride Level [place] ([facility]) anion gap 6 mEq/L 8-16 Below low normal Anion Gap [place] ( [facility]) potassium serum 5.3 mEq/L 3.5-5.1 Above high normal Potassium Ser um [place] ([facility]) carbon dioxide level 28 mEq/L 21-32 normal Carbon Dioxide Level [place] ([facility]) calcium level 9.1 mg/dL 8.5-10.1 normal Calcium Level [place] ( [facility]) ID Date Data Source [id number] 08/10/2020 07:19:00 AM EDT [place] ([facility]) Name Value Range Interpretation Code Description Data Julia rce(s) Supporting Document(s) AST/SGOT 51 U/L 7-37 Above high normal AST/SGOT [place] ([facility]) ALT/SGPT 30 U/L 12-78 normal ALT/SGPT [place] ([facility]) bilirubin,total 4.7 mg/dL 0.2-1.0 Above high normal Bilirubin,tot al [place] ([facility]) alkaline phosphatase 136 U/L 45-117 Above high normal Alkaline Phosphatase [place] ([facility]) albumin 3.8 gm/dL 3.2-5.2 normal Albumin [place] ([facility]) albumin/globulin ratio 1.2-2.2 normal Albumin/globu adam Ratio [place] ([facility]) bilirubin,direct 1.6 mg/dL 0.0-0.2 Above high normal Bilirubin,di rect [place] ([facility]) total protein 7.1 gm/dL 6.4-8.2 normal Total Protein [facility]) ID Date Data Source [id number] 08/10/2020 07:19:00 AM EDT [place] ([facility]) Name Value Range Interpretation Code Description Data Julia rce(s) Supporting Document(s) sodium,random urine 16 mEq/L normal Sodium,random Ur ine [place] ([facility]) ID Date Data Source [id number] 08/10/2020 07:19:00 AM EDT [place] ([facility]) Name Value Range Interpretation Code Description Data Julia rce(s) Supporting Document(s) creatinine,random urine 118.0 mg/dL normal Creatinine, random Urine [place] ([facility]) ID Date Data Source [id number] 08/10/2020 07:19:00 AM EDT [facility]) Name Value Range Interpretation Code Description Data Julia rce(s) Supporting Document(s) red blood count 3.14 10 4.00-5.40 Below low normal Red Blood Coun t [facility]) white blood count 8.6 10 4.0-10.0 normal White Blood Count [place] ([facility]) hematocrit 28.6 % 36.0-47.0 Below low normal Hematocrit [place] ( [facility]) hemoglobin 10.1 g/dL 12.0-15.5 Below low normal Hemoglobin [place] ( [facility]) mean corpuscular hemoglobin 32.2 pg 27.0-33.0 normal Mean Corpuscular Hemoglobin [place] ([facility]) mean corpuscular volume 91.1 fL 80.0-96.0 normal Mean Corpusc ular Volume [place] ([facility]) platelet count, automated 118 10 150-450 Below low denice l Platelet Count, Automated [facility]) mean corpuscular HGB conc 35.3 g/dL 32.0-36.5 normal Mean Corpu scular HGB Conc [place] ([facility]) red cell distribution width 17.7 % 11.5-14.5 Above high no rmal Red Cell Distribution Width [place] ([facility]) nucleated red blood cell % 0.0 % 0-0 normal Nucleated Red Blood Cell % [place] ([facility]) ID Date Data Source [id number] 08/10/2020 07:19:00 AM EDT [place] ([facility]) Name Value Range Interpretation Code Description Data Julia rce(s) Supporting Document(s) glucose, fasting 130 mg/dL 70-100 Above high normal Glucose, Fas ting [place] ([facility]) blood urea nitrogen 34 mg/dL 7-18 Above high normal Blood Ure a Nitrogen [place] ([facility]) creatinine for GFR 1.49 mg/dL 0.55-1.30 Above high normal Creatinine for GFR [place] ([facility]) glomerular filtration rate >51 Below low normal Deidra merular Filtration Rate [place] ([facility]) sodium level 127 mEq/L 136-145 Below low normal Sodium Level [place] ([facility]) potassium serum 5.3 mEq/L 3.5-5.1 Above high normal Potassium Ser um [place] ([facility]) chloride level 93 mEq/L 98-107 Below low normal Chloride Level [place] ([facility]) anion gap 6 mEq/L 8-16 Below low normal Anion Gap [place] ( [facility]) carbon dioxide level 28 mEq/L 21-32 normal Carbon Dioxide Level [place] ([facility]) calcium level 9.1 mg/dL 8.5-10.1 normal Calcium Level [place] ( [facility]) ID Date Data Source [id number] 08/10/2020 07:19:00 AM EDT [place] ([facility]) Name Value Range Interpretation Code Description Data Julia rce(s) Supporting Document(s) AST/SGOT 51 U/L 7-37 Above high normal AST/SGOT [place] ([facility]) alkaline phosphatase 136 U/L 45-117 Above high normal Alkaline Phosphatase [place] ([facility]) ALT/SGPT 30 U/L 12-78 normal ALT/SGPT [place] ([facility]) bilirubin,direct 1.6 mg/dL 0.0-0.2 Above high normal Bilirubin,di rect [place] ([facility]) bilirubin,total 4.7 mg/dL 0.2-1.0 Above high normal Bilirubin,tot al [place] ([facility]) total protein 7.1 gm/dL 6.4-8.2 normal Total Protein [place] ( [facility]) albumin 3.8 gm/dL 3.2-5.2 normal Albumin [place] ([facility]) albumin/globulin ratio 1.2-2.2 normal Albumin/globu adam Ratio [place] ([facility]) ID Date Data Source [id number] 08/10/2020 07:19:00 AM EDT [facility]) Name Value Range Interpretation Code Description Data Julia rce(s) Supporting Document(s) sodium,random urine 16 mEq/L normal Sodium,random Ur ine [facility]) ID Date Data Source [id number] 08/10/2020 07:19:00 AM EDT [facility]) Name Value Range Interpretation Code Description Data Julia rce(s) Supporting Document(s) creatinine,random urine 118.0 mg/dL normal Creatinine, random Urine [facility]) ID Date Data Source [id number] 08/10/2020 07:19:00 AM EDT [facility]) Name Value Range Interpretation Code Description Data Julia rce(s) Supporting Document(s) white blood count 8.6 10 4.0-10.0 normal White Blood Count [place] ([facility]) hemoglobin 10.1 g/dL 12.0-15.5 Below low normal Hemoglobin [place] ( [facility]) red blood count 3.14 10 4.00-5.40 Below low normal Red Blood Coun t [place] ([facility]) mean corpuscular volume 91.1 fL 80.0-96.0 normal Mean Corpusc ular Volume [place] ([facility]) hematocrit 28.6 % 36.0-47.0 Below low normal Hematocrit [place] ( [facility]) mean corpuscular hemoglobin 32.2 pg 27.0-33.0 normal Mean Corpuscular Hemoglobin [place] ([facility]) mean corpuscular HGB conc 35.3 g/dL 32.0-36.5 normal Mean Corpu scular HGB Conc [place] ([facility]) red cell distribution width 17.7 % 11.5-14.5 Above high no rmal Red Cell Distribution Width [place] ([facility]) platelet count, automated 118 10 150-450 Below low denice l Platelet Count, Automated [place] ([facility]) nucleated red blood cell % 0.0 % 0-0 normal Nucleated Red Blood Cell % [place] ([facility]) ID Date Data Source [id number] 08/10/2020 07:19:00 AM EDT [place] ([facility]) Name Value Range Interpretation Code Description Data Julia rce(s) Supporting Document(s) glucose, fasting 130 mg/dL 70-100 Above high normal Glucose, Fas ting [place] ([facility]) blood urea nitrogen 34 mg/dL 7-18 Above high normal Blood Ure a Nitrogen [place] ([facility]) creatinine for GFR 1.49 mg/dL 0.55-1.30 Above high normal Creatinine for GFR [place] ([facility]) glomerular filtration rate >51 Below low normal Deidra merular Filtration Rate [place] ([facility]) carbon dioxide level 28 mEq/L 21-32 normal Carbon Dioxide Level [place] ([facility]) chloride level 93 mEq/L 98-107 Below low normal Chloride Level [place] ([facility]) sodium level 127 mEq/L 136-145 Below low normal Sodium Level [place] ([facility]) potassium serum 5.3 mEq/L 3.5-5.1 Above high normal Potassium Ser um [place] ([facility]) anion gap 6 mEq/L 8-16 Below low normal Anion Gap [place] ( [facility]) calcium level 9.1 mg/dL 8.5-10.1 normal Calcium Level [place] ( [facility]) ID Date Data Source [id number] 08/10/2020 07:19:00 AM EDT [place] ([facility]) Name Value Range Interpretation Code Description Data Julia rce(s) Supporting Document(s) AST/SGOT 51 U/L 7-37 Above high normal AST/SGOT [place] ([facility]) ALT/SGPT 30 U/L 12-78 normal ALT/SGPT [place] ([facility]) bilirubin,total 4.7 mg/dL 0.2-1.0 Above high normal Bilirubin,tot al [place] ([facility]) alkaline phosphatase 136 U/L 45-117 Above high normal Alkaline Phosphatase [place] ([facility]) bilirubin,direct 1.6 mg/dL 0.0-0.2 Above high normal Bilirubin,di rect [place] ([facility]) albumin/globulin ratio 1.2-2.2 normal Albumin/globu adam Ratio [place] ([facility]) albumin 3.8 gm/dL 3.2-5.2 normal Albumin [place] ([facility]) total protein 7.1 gm/dL 6.4-8.2 normal Total Protein [place] ( [facility]) ID Date Data Source [id number] 08/10/2020 07:19:00 AM EDT [place] ([facility]) Name Value Range Interpretation Code Description Data Julia rce(s) Supporting Document(s) sodium,random urine 16 mEq/L normal Sodium,random Ur ine [place] ([facility]) ID Date Data Source [id number] 08/10/2020 07:19:00 AM EDT [place] ([facility]) Name Value Range Interpretation Code Description Data Julia rce(s) Supporting Document(s) creatinine,random urine 118.0 mg/dL normal Creatinine, random Urine [place] ([facility]) ID Date Data Source [id number] 08/10/2020 07:19:00 AM EDT [facility]) Name Value Range Interpretation Code Description Data Julia rce(s) Supporting Document(s) white blood count 8.6 10 4.0-10.0 normal White Blood Count [place] ([facility]) hemoglobin 10.1 g/dL 12.0-15.5 Below low normal Hemoglobin [place] ( [facility]) red blood count 3.14 10 4.00-5.40 Below low normal Red Blood Coun t [place] ([facility]) hematocrit 28.6 % 36.0-47.0 Below low normal Hematocrit [place] ( [facility]) mean corpuscular volume 91.1 fL 80.0-96.0 normal Mean Corpusc ular Volume [place] ([facility]) mean corpuscular hemoglobin 32.2 pg 27.0-33.0 normal Mean Corpuscular Hemoglobin [place] ([facility]) mean corpuscular HGB conc 35.3 g/dL 32.0-36.5 normal Mean Corpu scular HGB Conc [place] ([facility]) red cell distribution width 17.7 % 11.5-14.5 Above high no rmal Red Cell Distribution Width [place] ([facility]) platelet count, automated 118 10 150-450 Below low denice l Platelet Count, Automated [place] ([facility]) nucleated red blood cell % 0.0 % 0-0 normal Nucleated Red Blood Cell % [place] ([facility]) ID Date Data Source [id number] 08/09/2020 12:28:00 PM EDT [place] ([facility]) Name Value Range Interpretation Code Description Data Julia rce(s) Supporting Document(s) albumin, body fluid 0.7 g/dL not established normal Albumin, Julien dy Fluid [place] ([facility]) source, body fluid albumin ascites normal Source, B jamil Fluid Albumin [facility]) ID Date Data Source [id number] 08/09/2020 12:28:00 PM EDT [facility]) Name Value Range Interpretation Code Description Data Julia rce(s) Supporting Document(s) total protein, body fluid 1.3 g/dL not established normal Total Protein, Body Fluid [place] ([facility]) source, body fluid tot protein ascites normal Sourc e, Body Fluid Tot Protein [facility]) ID Date Data Source [id number] 08/09/2020 12:28:00 PM EDT [facility]) Name Value Range Interpretation Code Description Data Julia rce(s) Supporting Document(s) source, body fluid ascites normal Source, Body Flui d [place] ([facility]) appearance, body fluid cloudy clear normal Appearance, B jamil Fluid [place] ([facility]) ascites fL color yellow colorless normal Ascites fL Color AT [facility] ([facility]) WBC body fluid 152 /uL 0-10 Above high normal WBC Body Fluid [place] ([facility]) bf mononuclear cell % 96.7 % 0-0 Above high normal Bf [place] nuclear Cell % [place] ([facility]) RBC body fluid 3 10 <2 normal RBC Body Fluid [place] ([facility]) bf polymorphonuclear cell % 3.3 % 0-0 Above high no rmal Bf Polymorphonuclear Cell % [facility]) ID Date Data Source [id number] 08/09/2020 12:28:00 PM EDT [facility]) Name Value Range Interpretation Code Description Data Julia rce(s) Supporting Document(s) source, body fluid ascites normal Source, Body Flui d [place] ([facility]) appearance, body fluid cloudy clear normal Appearance, B jamil Fluid [place] ([facility]) ascites fL color yellow colorless normal Ascites fL Color AT [place] ([facility]) WBC body fluid 152 /uL 0-10 Above high normal WBC Body Fluid [place] ([facility]) RBC body fluid 3 10 <2 normal RBC Body Fluid [place] ([facility]) bf polymorphonuclear cell % 3.3 % 0-0 Above high no rmal Bf Polymorphonuclear Cell % [place] ([facility]) bf mononuclear cell % 96.7 % 0-0 Above high normal Bf [place] nuclear Cell % [place] ([facility]) ID Date Data Source [id number] 08/09/2020 12:28:00 PM EDT [place] ([facility]) Name Value Range Interpretation Code Description Data Julia rce(s) Supporting Document(s) source, body fluid albumin ascites normal Source, B jamil Fluid Albumin [place] ([facility]) albumin, body fluid 0.7 g/dL not established normal Albumin, Julien dy Fluid [place] ([facility]) ID Date Data Source [id number] 08/09/2020 12:28:00 PM EDT [facility]) Name Value Range Interpretation Code Description Data Julia rce(s) Supporting Document(s) source, body fluid tot protein ascites normal Sourc e, Body Fluid Tot Protein [place] ([facility]) total protein, body fluid 1.3 g/dL not established normal Total Protein, Body Fluid [place] ([facility]) ID Date Data Source [id number] 08/09/2020 12:28:00 PM EDT [place] [facility] [facility]) Name Value Range Interpretation Code Description Data Julia rce(s) Supporting Document(s) ascites fL color yellow colorless normal Ascites fL Color AT [facility] ([facility]) source, body fluid ascites normal Source, Body Flui d [place] ([facility]) WBC body fluid 152 /uL 0-10 Above high normal WBC Body Fluid [place] ([facility]) appearance, body fluid cloudy clear normal Appearance, B jamil Fluid [place] ([facility]) RBC body fluid 3 10 <2 normal RBC Body Fluid [place] ([facility]) bf mononuclear cell % 96.7 % 0-0 Above high normal Bf [place] nuclear Cell % [place] ([facility]) bf polymorphonuclear cell % 3.3 % 0-0 Above high no rmal Bf Polymorphonuclear Cell % [place] ([facility]) ID Date Data Source [id number] 08/09/2020 12:28:00 PM EDT [place] ([facility]) Name Value Range Interpretation Code Description Data Julia rce(s) Supporting Document(s) albumin, body fluid 0.7 g/dL not established normal Albumin, Julien dy Fluid [place] ([facility]) source, body fluid albumin ascites normal Source, B jamil Fluid Albumin [place] ([facility]) ID Date Data Source [id number] 08/09/2020 12:28:00 PM EDT [place] ([facility]) Name Value Range Interpretation Code Description Data Julia rce(s) Supporting Document(s) source, body fluid tot protein ascites normal Sourc e, Body Fluid Tot Protein [place] ([facility]) total protein, body fluid 1.3 g/dL not established normal Total Protein, Body Fluid [place] ([facility]) ID Date Data Source [id number] 08/09/2020 12:28:00 PM EDT [place] ([facility]) Name Value Range Interpretation Code Description Data Julia rce(s) Supporting Document(s) ascites fL color yellow colorless normal Ascites fL Color [place] ([facility]) source, body fluid ascites normal Source, Body Flui d [place] ([facility]) RBC body fluid 3 10 <2 normal RBC Body Fluid [place] ([facility]) appearance, body fluid cloudy clear normal Appearance, B jamil Fluid [place] ([facility]) WBC body fluid 152 /uL 0-10 Above high normal WBC Body Fluid [place] ([facility]) bf polymorphonuclear cell % 3.3 % 0-0 Above high no rmal Bf Polymorphonuclear Cell % [place] ([facility]) bf mononuclear cell % 96.7 % 0-0 Above high normal Bf [place] nuclear Cell % [place] ([facility]) ID Date Data Source [id number] 08/09/2020 12:28:00 PM EDT [facility]) Name Value Range Interpretation Code Description Data Julia rce(s) Supporting Document(s) source, body fluid albumin ascites normal Source, B jamil Fluid Albumin [place] ([facility]) albumin, body fluid 0.7 g/dL not established normal Albumin, Julien dy Fluid [place] ([facility]) ID Date Data Source [id number] 08/09/2020 12:28:00 PM EDT [place] ([facility]) Name Value Range Interpretation Code Description Data Julia rce(s) Supporting Document(s) source, body fluid tot protein ascites normal Sourc e, Body Fluid Tot Protein [place] ([facility]) total protein, body fluid 1.3 g/dL not established normal Total Protein, Body Fluid [place] ([facility]) ID Date Data Source [id number] 08/09/2020 12:03:00 PM EDT [place] ([facility]) Name Value Range Interpretation Code Description Data Julia rce(s) Supporting Document(s) albumin 25% transfused product: albumin 25% count: 4 Albumin 25% [place] ([facility]) ID Date Data Source [id number] 08/09/2020 12:03:00 PM [facility] Name Value Range Interpretation Code Description Data Julia rce(s) Supporting Document(s) albumin 25% transfused product: albumin 25% count: 4 Albumin 25% [place] ([facility]) ID Date Data Source [id number] 08/09/2020 12:03:00 PM EDT [place] ([facility]) Name Value Range Interpretation Code Description Data Julia rce(s) Supporting Document(s) albumin 25% transfused product: albumin 25% count: 4 Albumin 25% [place] ([facility]) ID Date Data Source [id number] 08/09/2020 12:03:00 PM EDT [place] ([facility]) Name Value Range Interpretation Code Description Data Julia rce(s) Supporting Document(s) albumin 25% transfused product: albumin 25% count: 4 Albumin 25% [place] ([facility]) ID Date Data Source [id number] 08/02/2020 12:40:00 PM EDT [place] ([facility]) Name Value Range Interpretation Code Description Data Julia rce(s) Supporting Document(s) source, body fluid albumin ascites normal Source, B jamil Fluid Albumin [place] ([facility]) albumin, body fluid 0.7 g/dL not established normal Albumin, Julien dy Fluid [place] ([facility]) ID Date Data Source [id number] 08/02/2020 12:40:00 PM EDT [place] ([facility]) Name Value Range Interpretation Code Description Data Julia rce(s) Supporting Document(s) total protein, body fluid 1.2 g/dL not established normal Total Protein, Body Fluid [place] ([facility]) source, body fluid tot protein ascites normal Sourc e, Body Fluid Tot Protein [place] ([facility]) ID Date Data Source [id number] 08/02/2020 12:40:00 PM EDT [place] ([facility]) Name Value Range Interpretation Code Description Data Julia rce(s) Supporting Document(s) source, body fluid ascites normal Source, Body Flui d [place] ([facility]) WBC body fluid 149 /uL 0-10 Above high normal WBC Body Fluid [place] ([facility]) appearance, body fluid cloudy clear normal Appearance, B jamil Fluid [place] ([facility]) ascites fL color yellow colorless normal Ascites fL Color [place] ([facility]) bf mononuclear cell % 97.3 % 0-0 Above high normal Bf [place] nuclear Cell % [place] ([facility]) RBC body fluid < 2 <2 normal RBC Body Fluid [place] ([facility]) bf polymorphonuclear cell % 2.7 % 0-0 Above high no rmal Bf Polymorphonuclear Cell % [place] ([facility]) ID Date Data Source [id number] 08/02/2020 12:40:00 PM EDT [facility]) Name Value Range Interpretation Code Description Data Julia rce(s) Supporting Document(s) albumin, body fluid 0.7 g/dL not established normal Albumin, Julien dy Fluid [place] ([facility]) source, body fluid albumin ascites normal Source, B jamil Fluid Albumin [facility]) ID Date Data Source [id number] 08/02/2020 12:40:00 PM EDT [facility]) Name Value Range Interpretation Code Description Data Jluia rce(s) Supporting Document(s) total protein, body fluid 1.2 g/dL not established normal Total Protein, Body Fluid [facility]) source, body fluid tot protein ascites normal Sourc e, Body Fluid Tot Protein [facility]) ID Date Data Source [id number] 08/02/2020 12:40:00 PM EDT [facility]) Name Value Range Interpretation Code Description Data Julia rce(s) Supporting Document(s) source, body fluid ascites normal Source, Body Flui d [place] ([facility]) ascites fL color yellow colorless normal Ascites fL Color [place] ([facility]) WBC body fluid 149 /uL 0-10 Above high normal WBC Body Fluid [facility]) appearance, body fluid cloudy clear normal Appearance, B jamil Fluid [place] ([facility]) bf mononuclear cell % 97.3 % 0-0 Above high normal Bf [place] nuclear Cell % [place] ([facility]) RBC body fluid < 2 <2 normal RBC Body Fluid [place] ([facility]) bf polymorphonuclear cell % 2.7 % 0-0 Above high no rmal Bf Polymorphonuclear Cell % [facility]) ID Date Data Source [id number] 08/02/2020 12:40:00 PM EDT [place] ([facility]) Name Value Range Interpretation Code Description Data Julia rce(s) Supporting Document(s) source, body fluid albumin ascites normal Source, B jamil Fluid Albumin [place] ([facility]) albumin, body fluid 0.7 g/dL not established normal Albumin, Julien dy Fluid [place] ([facility]) ID Date Data Source [id number] 08/02/2020 12:40:00 PM EDT [place] ([facility]) Name Value Range Interpretation Code Description Data Julia rce(s) Supporting Document(s) total protein, body fluid 1.2 g/dL not established normal Total Protein, Body Fluid [place] ([facility]) source, body fluid tot protein ascites normal Sourc e, Body Fluid Tot Protein [facility]) ID Date Data Source [id number] 08/02/2020 12:40:00 PM EDT [place] ([facility]) Name Value Range Interpretation Code Description Data Julia rce(s) Supporting Document(s) source, body fluid ascites normal Source, Body Flui d [place] ([facility]) appearance, body fluid cloudy clear normal Appearance, B jamil Fluid [place] ([facility]) WBC body fluid 149 /uL 0-10 Above high normal WBC Body Fluid [place] ([facility]) ascites fL color yellow colorless normal Ascites fL Color [place] ([facility]) bf mononuclear cell % 97.3 % 0-0 Above high normal Bf [place] nuclear Cell % [place] ([facility]) bf polymorphonuclear cell % 2.7 % 0-0 Above high no rmal Bf Polymorphonuclear Cell % [place] ([facility]) RBC body fluid < 2 <2 normal RBC Body Fluid [facility]) ID Date Data Source [id number] 08/02/2020 12:40:00 PM EDT [facility]) Name Value Range Interpretation Code Description Data Julia rce(s) Supporting Document(s) source, body fluid albumin ascites normal Source, B jamil Fluid Albumin [place] ([facility]) albumin, body fluid 0.7 g/dL not established normal Albumin, Julien dy Fluid [place] ([facility]) ID Date Data Source [id number] 08/02/2020 12:40:00 PM EDT [place] ([facility]) Name Value Range Interpretation Code Description Data Julia rce(s) Supporting Document(s) source, body fluid tot protein ascites normal Sourc e, Body Fluid Tot Protein [place] ([facility]) total protein, body fluid 1.2 g/dL not established normal Total Protein, Body Fluid [place] ([facility]) ID Date Data Source [id number] 08/02/2020 12:40:00 PM EDT [place] ([facility]) Name Value Range Interpretation Code Description Data Julia rce(s) Supporting Document(s) appearance, body fluid cloudy clear normal Appearance, B jamil Fluid [place] ([facility]) WBC body fluid 149 /uL 0-10 Above high normal WBC Body Fluid [place] ([facility]) ascites fL color yellow colorless normal Ascites fL Color [place] ([facility]) source, body fluid ascites normal Source, Body Flui d [place] ([facility]) bf mononuclear cell % 97.3 % 0-0 Above high normal Bf [place] nuclear Cell % [place] ([facility]) RBC body fluid < 2 <2 normal RBC Body Fluid [place] ([facility]) bf polymorphonuclear cell % 2.7 % 0-0 Above high no rmal Bf Polymorphonuclear Cell % [place] ([facility]) ID Date Data Source [id number] 08/02/2020 08:27:00 AM EDT [place] ([facility]) Name Value Range Interpretation Code Description Data Julia rce(s) Supporting Document(s) albumin 25% transfused product: albumin 25% count: 4 Albumin 25% [place] ([facility]) ID Date Data Source [id number] 08/02/2020 08:27:00 AM EDT [place] ([facility]) Name Value Range Interpretation Code Description Data Julia rce(s) Supporting Document(s) albumin 25% transfused product: albumin 25% count: 4 Albumin 25% [place] ([facility]) ID Date Data Source [id number] 08/02/2020 08:27:00 AM EDT [place] ([facility]) Name Value Range Interpretation Code Description Data Julia rce(s) Supporting Document(s) albumin 25% transfused product: albumin 25% count: 4 Albumin 25% [place] ([facility]) ID Date Data Source [id number] 08/02/2020 08:27:00 AM EDT [place] ([facility]) Name Value Range Interpretation Code Description Data Julia rce(s) Supporting Document(s) albumin 25% transfused product: albumin 25% count: 4 Albumin 25% [place] ([facility]) ID Date Data Source [id number] 06/28/2020 11:28:00 AM EDT [facility] Name Value Range Interpretation Code Description Data Julia rce(s) Supporting Document(s) HCT 32.4 % 36.0-47.0 L [facility] HGB 11.5 g/dL 12.0-15.5 L [facility] MCH 35.5 G/DL pg 32.0-36.5 N [facility] MCHC 35.1 PG % 27.0-33.0 H [facility] PLATELETS 137 10 10*3/mm3 150-450 L [facility] RBC 3.28 10 10*6/mm3 4.00-5.40 L [facility] RDW 16.4 % 11.5-14.5 H [facility] WBC TOTAL 7.2 4.0-10.0 N [facility] ID Date Data Source [id number] 06/28/2020 11:28:00 AM EDT [facility] Name Value Range Interpretation Code Description Data Julia rce(s) Supporting Document(s) BG FASTING 104 mg/dL 70-100 H [facility] ID Date Data Source [id number] 06/11/2020 09:54:18 AM EDT [facility] Measurements & CalculationsHeight: 61 inches [...] or Preferred Language: EnglishFamily and Home Address: [address] [place] [address] What is your housing situation today? I have housing Are you worried about losing your housing? NoMoney and Resources In the past year, have you or any family members you live with been unable to get any of the following when it was really needed? Denies Insecurity: food, utilities, clothing, child center assistant, phone, legal services, otherWithin the past year [...] during this visit, including review of any rixp-gtd-fubzrhv medications, herbal therapies, and/or supplements.Allergy ReviewAllergy List [...] adult medical examination with abnormal findings (ICD-V70.0) (GAL22-G15.01) Assessment: Instructions: Recommend annual medical appointments. Recommend routine dental and vision care. Recommend influenza vaccines annually and tetanus boosters every 10 years. Please call when you are ready to schedule mammogram and pap smear.Assessed:Alcoholic cirrhosis of liver with ascites (ICD-571.2) (ICD10- K70.31) Assessment: Instructions: Continue per GI.Edema of lower extremity (ICD-782.3) (OEJ64-J43.0) Assessment: Instructions: Stable with current medications. 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) (MKB37-Z05.11) Assessment: Instructions: Continue remaining sober.Insomnia, unspecified (MVO56-E68.00) Assessment: Instructions: Stable with hydroxyzine 2 tablets at bedtime.Assessment not SavedEncounter for immunization ([id number]): Patient Instructions/Care Plan: Encounter for general adult [...] po qhsAllergies:RAMELTEON ([place]ON) (Severe)Orders:Preventive, Est, (4064) [CPT- 54307] Follow-Up Return to clinic: in 3 months for follow upAdditional Follow- Up: cirrhosisClinical Visit Summary Declined Name Value Range Interpretation Code Description Data Julia rce(s) Supporting Document(s) ID Date Data Source [id number] 05/10/2020 09:33:44 AM EDT [facility] Measurements & CalculationsHeight: 61 inches (5 ft. [...] needed [facility] through [facility], [facility]ites [facility] [...] during this visit, including review of any ciij-lnu-prkfmio medications, herbal therapies, and/or supplements.Allergy ReviewAllergy List [...] & Plan Problems:Added: Encounter for immunization (ICD-V05.9) ([id number])Assessed:Alcoholic cirrhosis of liver with ascites (ICD-571.2) (PXV79-T49.31) Assessment: Instructions: Continue per Dr. Lechuga's office.Alcohol abuse, in remission (ICD-305.03) (ICD10- F10.11) Assessment: Instructions: Continue remaining sober.Edema of lower extremity (ICD-782.3) (SIU05-E61.0) Assessment: Instructions: Resolved with current treatment.Insomnia, unspecified (SOA47-J02.00) Assessment: Adverse reaction with Ramelteon. Instructions: Start hydroxyzine as prescribed. Follow-up in 1 month. Call us with any concerns.Assessment not SavedEncounter for immunization (BSS44-T80): Instructions: Shingrix sent to pharmacy.Patient Instructions/Care Plan: [...] 1 Method: ElectronicChanged:From: ORAL LACTULOSE SOLUTION Qty: [id number] To: LACTULOSE 10 GM/15ML ORAL SOLUTION-Take 15mLs per dose, 1-2 times daily (adjust dose to get at least 2 soft stools per day)From: ORAL FUROSEMIDE 40 MG ORAL TABLET Qty: [id number] To: FUROSEMIDE 40 MG ORAL TABLET-take 1.5 tablet in the morning and 1 tablet in the eveningFrom: ORAL SPIRONOLACTONE 50 MG ORAL TABLET Qty: [id number] To: SPIRONOLACTONE 50 MG ORAL TABLET-Take 3 tablets po QAM and 2 tablets po QPM (at least 10 hrs apart) dailyFrom: ORAL FOLIC ACID 1 MG ORAL TABLET Qty: [phone] To: FOLIC ACID 1 MG ORAL TABLET-take 1 tablet po dailyAllergies:RAMELTEON (RAMELTEON) (Severe)Information on new prescriptions provided to patient.Orders:Adult - Ofc Vst, EST, Level III [CPT-27487] Follow-Up Return to clinic: in 30 days for preventive care visitAdditional Follow-Up: annual PEClinical Visit Summary Completed Name Value Range Interpretation Code Description Data Julia rce(s) Supporting Document(s) ID Date Data Source [id number] 05/01/2020 12:00:00 PM EDT [facility] ([facility], ) Name Value Range Interpretation Code Description Data Julia rce(s) Supporting Document(s) Sodium [Moles/volume] in Urine 11 meq/L N ormal (applies to non-numeric results) [facility] ([facility], ) <content>note:<nlbl:demographic_changed> </content>
<content></content> Creatinine [Mass/volume] in Urine 224.0 mg/dL Normal (applies to non-numeric results) [facility] ([facility]) <content>note:<nlbl:demographic_changed> </content>
<content></content> ID Date Data Source [id number] 05/01/2020 12:00:00 PM EDT [facility] ([facility]) Name Value Range Interpretation Code Description Data Julia rce(s) Supporting Document(s) Glucose, Fasting 110 mg/dL 70-100 Above high [facility] Blood Urea Nitrogen 11 mg/dL 7-18 Normal (applies to non-nume zora results) [facility] ([facility]) Creatinine For GFR 0.76 mg/dL 0.55-1.30 Normal (applies to non -numeric results) [facility] ([facility]) Potassium Serum 4.5 meq/L 3.5-5.1 Normal (applies to non-numeric results) [facility] ([facility]) Glomerular Filtration Rate Laboratory test result Normal (applies to non- numeric results) [facility] ([facility]) <content>Units are mL/min/1.73 m2</content>
<content></content>
<content>Chronic Kidney Disease Staging per NKF:</content>
<content></content>
<content>Stage I & II GFR >=60 Normal to Mildly Decreased</content>
<content>Stage III GFR 30- 59 Moderately Decreased</content>
<content>Stage IV GFR 15-29 Severely Decreased</content>
<content>Stage V GFR <15 Very Little GFR Left</content>
<content>ESRD GFR <15 on INSIDE SALES ACCOUNT EXECUTIVE</content>
<content></content> Sodium Level 132 meq/L 136-145 Below low normal [facility] ([facility]) Chloride Level 98 meq/L 98-107 Normal (applies to non-numeric r esults) [facility] ([facility]) Carbon Dioxide Level 32 meq/L 21-32 Normal (applies to non-num reynaldo results) [facility] ([facility]) Anion Gap 2 meq/L 8-16 Below low normal [facility] ( [facility]) Calcium Level 8.4 mg/dL 8.5-10.1 Below low normal [facility] ([facility]) ID Date Data Source [id number] 04/18/2020 12:25:00 PM EDT [facility] ([facility]) Name Value Range Interpretation Code Description Data Julia rce(s) Supporting Document(s) Gram Stain Laboratory test result Normal (applies to non-n umeric results) [facility] ([facility]) NO CELLS SEEN NO ORGANISMS SEEN Body Fluid Culture Laboratory test result Normal (applies to non-numeric results) [facility] ([facility]) FULL REPORT IN LAB NOTES ([facility] ORGANISM 1: BACILLUS SP., NOT ANTHRACIS QUANTITY OF GROWTH MODERATE The majority of Bacillus species have little or no pathogenic potential (common environmental contaminant) and are rarely associated with disease in humans. ORGANISM 1: BACILLUS SP., NOT ANTHRACIS ID Date Data Source [id number] 04/18/2020 09:57:00 AM EDT [facility] ([facility]) Name Value Range Interpretation Code Description Data Julia rce(s) Supporting Document(s) Albumin 25% Laboratory test result [facility] ([facility]) TRANSFUSED PRODUCT: ALBUMIN 25% COUNT: 4 ID Date Data Source [id number] 04/18/2020 09:51:00 AM EDT [facility] ([facility]) Name Value Range Interpretation Code Description Data Julia rce(s) Supporting Document(s) Albumin, Body Fluid 0.3 g/dL Normal (applies to non-nume zora results) [facility] ([facility]) Source, Body Fluid Albumin Laboratory test result Normal (applies to non- numeric results) [facility] ([facility]) ID Date Data Source [id number] 04/18/2020 09:51:00 AM EDT [facility] ([facility]) Name Value Range Interpretation Code Description Data Julia rce(s) Supporting Document(s) Source, Body Fluid Tot Protein Laboratory test result Normal (applies to non- numeric results) [facility] ([facility]) Total Protein, Body Fluid 0.9 g/dL Normal (applies to no n-numeric results) [facility]) ID Date Data Source [id number] 04/18/2020 09:51:00 AM EDT [facility]) Name Value Range Interpretation Code Description Data Julia rce(s) Supporting Document(s) Source, Body Fluid Laboratory test result Normal (applies to non-numeric results) [facility]) Ascites FL Color Laboratory test result Normal ( applies to non-numeric results) [facility]) WBC Body Fluid 94 /uL 0-10 Above high normal MED [facility] ([facility]) Appearance, Body Fluid Laboratory test result No rmal (applies to non-numeric results) [facility] ([facility]) BF Polymorphonuclear Cell % 10.7 % 0-0 Above high normal [facility] ([facility]) BF Mononuclear Cell % 89.3 % 0-0 Above high normal [facility] ([facility]) RBC Body Fluid Laboratory test result Normal (applies to non-numeric results) [facility]) ID Date Data Source [id number] [facility] Name Value Range Interpretation Code Description Data Julia rce(s) Supporting Document(s) Phosphate [Moles/volume] in Serum or Plasma 2.9 mg/dL 2.5- 4.9 Normal (applies to non-numeric results) [facility] ) <content>note:<nlbl:demographic_changed> </content>
<content></content> Magnesium [Mass/volume] in Serum or Plasma 1.7 mg/dL 1.8-2.4 Belo w low normal [facility] ([facility]) <content>note:<nlbl:demographic_changed> </content>
<content></content> Sodium [Moles/volume] in Urine Laboratory test result Normal (applies to non- numeric results) [facility]) <content>note:<nlbl:demographic_changed> </content>
<content></content> Creatinine [Mass/volume] in Urine 249.0 mg/dL Normal (applies to non-numeric results) [facility]) <content>note:<nlbl:demographic_changed> </content>
<content></content> ID Date Data Source [id number] 04/11/2020 09:04:00 AM EDT [facility] ([facility]) Name Value Range Interpretation Code Description Data Julia rce(s) Supporting Document(s) Glucose, Fasting 111 mg/dL 70-100 Above high normal [facility] ([facility]) Creatinine For GFR 0.80 mg/dL 0.55-1.30 Normal (applies to non -numeric results) [facility] ([facility]) Blood Urea Nitrogen 11 mg/dL 7-18 Normal (applies to non-nume zora results) [facility] ([facility]) Glomerular Filtration Rate Laboratory test result Normal (applies to non- numeric results) [facility] ([facility]) <content>Units are mL/min/1.73 m2</content>
<content></content>
<content>Chronic Kidney Disease Staging per NKF:</content>
<content></content>
<content>Stage I & II GFR >=60 Normal to Mildly Decreased</content>
<content>Stage III GFR 30- 59 Moderately Decreased</content>
<content>Stage IV GFR 15-29 Severely Decreased</content>
<content>Stage V GFR <15 Very Little GFR Left</content>
<content>ESRD GFR <15 on INSIDE SALES ACCOUNT EXECUTIVE</content>
<content></content> Sodium Level 130 meq/L 136-145 Below low normal [facility] ([facility]) Potassium Serum 4.0 meq/L 3.5-5.1 Normal (applies to non-numeric results) [facility] ([facility]) Anion Gap 6 meq/L 8-16 Below low normal [facility] ( [facility]) Carbon Dioxide Level 28 meq/L 21-32 Normal (applies to non-num reynaldo results) [facility] ([facility]) Chloride Level 96 meq/L 98-107 Below low normal [facility] ([facility]) Calcium Level 8.4 mg/dL 8.5-10.1 Below low normal [facility] ([facility]) ID Date Data Source [id number] 04/11/2020 09:04:00 AM EDT [facility] Name Value Range Interpretation Code Description Data Julia rce(s) Supporting Document(s) BG FASTING 111 mg/dL 70-100 [facility] ID Date Data Source [id number] 04/09/2020 09:33:58 AM EDT [facility] Measurements & CalculationsHeight: 61 inches 154.94 cm [...] presents for ER follow-up.Pt was seen at [facility] ER 04/05/2020 for ascites. Pt had [...] during this visit, including review of any lhth-udi-zlyybgb medications, herbal therapies, and/or supplements.Allergy ReviewAllergy List [...] is? GoodAssessment & Plan Problems:Added: Insomnia, unspecified (FUX41-H29.00) Assessment: Instructions: Monitor. Significant life adjustments with [...] Continue current medications.Alcohol abuse, in remission (ICD-305.03) (TUL27-T26.11) Assessment: Instructions: Continue remaining sober.Patient Instructions/Care Plan: [...] ORAL SPIRONOLACTONE 25 MG ORAL TABLET Qty: [id number] To: SPIRONOLACTONE 50 MG ORAL TABLET-Take 2 tablets po dailyFrom: ORAL LASIX 20 MG ORAL TABLET Qty: [id number] To: FUROSEMIDE 40 MG ORAL TABLET-take 1 tablet po BIDAllergies:No Known Allergies (updated 04/09/2020) Orders:Adult - Ofc Vst, EST, Level III [CPT-13865] Follow-Up Return to clinic: in 2 weeks for follow upClinical Visit Summary Declined Name Value Range Interpretation Code Description Data Julia rce(s) Supporting Document(s) ID Date Data Source [id number] 04/05/2020 08:41:00 AM EDT [facility] Name Value Range Interpretation Code Description Data Julia rce(s) Supporting Document(s) HCT 36.8 % 36.0-47.0 [facility] HGB 13.1 g/dL 12.0-15.5 [facility] MCH 35.6 G/DL pg 32.0-36.5 [facility] MCHC 36.0 PG % 27.0-33.0 H [facility] PLATELETS 121 10 10*3/mm3 150-450 L [facility] RBC 3.64 10 10*6/mm3 4.00-5.40 L [facility] RDW 14.7 % 11.5-14.5 H [facility] WBC TOTAL 7.7 4.0-10.0 [facility] ID Date Data Source [id number] 04/05/2020 08:41:00 AM EDT [facility] Name Value Range Interpretation Code Description Data Julia rce(s) Supporting Document(s) BG FASTING 98 mg/dL 70-100 [facility] ID Date Data Source [id number] 03/27/2020 01:05:02 PM EDT [facility] Measurements & CalculationsHeight: 61 inches (5 ft. [...] been [facility] the [facility]? [facility] date reported today: 03/22/2020Have [...] for pain by an urgent care in [place], then over the next few weeks noted abdominal distention. She then went to another urgent care in [place] and was given a fluid pill and another unknown medication. A few weeks went by without i mprovement, so she went to [place] [facility]. [place] the provider was rude so she left without testing. Then she moved from [facility] to [facility]. She was seen by [facility], then was referred to [facility] but she waited a few days. Self presented to [facility] 03/17/2020, then was transferred to [facility] due to ascites. She was admitted to [facility] 03/17/2020-03/22/2020. Pt states she had 7 [...] during this visit, including review of any rwds-acq-rrrzbke medications, herbal therapies, and/or supplements.Allergy ReviewAllergy List [...] PoorAssessment & Plan Problems:Added: Tobacco user (ICD-305.1) (ZVP84-K80.200)Alcoholic cirrhosis of liver with ascites (ICD- 571.2) (OQQ56-E48.31) Assessment: Instructions: Severe ascites today despite medications. Recommend emergency room evaluation today, patient declines but agrees to report to [facility] ER by 0600 03/28/2020. Advised waiting was not the safest recommendation. Please call an ambulance for ANY change or worsening in symptoms.Edema of lower extremity (ICD-782.3) (OWT72-T69.0) Assessment: Instructions: Secondary to above. No medication adjustments due to immediate need for ER evalation with labs and further treatment.Alcohol abuse, in remission (ICD-305.03) (QUQ15-P27.11) Assessment: Instructions: Will need outpatient treatment, after her medical conditions are more stabilized.Patient Instructions/Care Plan: Alcoholic cirrhosis of liver with ascites: Severe ascites today despite medications. Recommend emergency room evaluation today, patient declines but agrees to report to [facility] ER by 0600 03/28/2020. Advised waiting [...] M20 20 MEQ ORAL TABLET EXTENDED RELEASELACTULOSE [id number] TABLET DELAYED RELEASELASIX 20 MG ORAL TABLETSPIRONOLACTONE 25 MG ORAL TABLETMUPIROCIN OINTMENTMedication Changes:Added: MUPIROCIN OINTMENT-bidSPIRONOLACTONE 25 MG ORAL TABLET-po dailyLASIX 20 MG ORAL TABLET-po [id number] TABLET DELAYED RELEASE-po bidLACTULOSE SOLUTION-30 ml po bidKLOR-CON M20 20 MEQ ORAL TABLET EXTENDED RELEASE-Take 1 tablet po dailyFOLIC ACID 1 MG ORAL TABLET-po dailyTHIAMINE HCL 100 MG ORAL TABLET-po dailyAllergies:No Known Allergies (updated 03/27/2020) Orders:Adult - Ofc Vst, EST, Level IV [CPT-[id number]] Follow-Up Return to clinic: as needed for follow upAdditional Follow-Up: ER follow-upClinical Visit Summary Completed Name Value Range Interpretation Code Description Data Julia rce(s) Supporting Document(s) ID Date Data Source [id number] 03/22/2020 05:54:[address] [facility] Name Value Range Interpretation Code Description Data Julia rce(s) Supporting Document(s) Sodium 135 mmol/L 137-145 Below low normal [facility] Potassium 3.5-5.1 Normal (applies to non-numeric resul ts) [facility] Chloride 102 mmol/L 98-112 Normal (applies to non-numeric resul ts) [facility] Carbon Dioxide CO2 22.0-33.0 Normal (applies to non-numer ic results) [facility] Anion Gap 4.0-11.0 Normal (applies to non-numeric resul ts) [facility] BUN 9 mg/dL 7-17 Normal (applies to non-numeric resul ts) [facility] Creatinine 0.70-1.20 Below low normal [facility] GFR >60 Normal (applies to non-numeric results) [facility] Result based on MDRD formula. Glucose Level 86 mg/dL 74-99 Normal (applies to non-numeric re sults) [facility] The reference range is only applicable w hen fasting. Calcium-Uncorrected 8.4-10.2 Below low normal [facility] Corrected Calcium 8.4-10.2 Normal (applies to non-numeri c results) [facility] Bilirubin,Total 0.2-1.[address] [facility] SGOT(AST) 91 U/L 14-36 Above high normal [facility] SGPT(ALT) 32 U/L 9-52 Normal (applies to non-numeric resul ts) [facility] Alkaline Phosphatase 120 U/L 38-126 Normal (applies to non-num reynaldo results) [facility] can increase Alkaline Phosp le vels up to 2 times the normal adult value. Normal values for children and adolescents are 2 to 3 times the normal adult value. Total Protein 6.3-8.2 Normal (applies to non-numeric re sults) [facility] Albumin 3.5-5.0 Below low normal [facility] ID Date Data Source [id number] 03/22/2020 05:54:[address] [facility] Name Value Range Interpretation Code Description Data Julia rce(s) Supporting Document(s) Bilirubin,Direct 0.0-0.[address] [facility] ID Date Data Source [id number] 03/22/2020 05:22:[address] [facility] Name Value Range Interpretation Code Description Data Julia rce(s) Supporting Document(s) White Blood Count 4.8-10.8 Normal (applies to non-numeri c results) [facility] Red Blood Count 3.68-5.[address] [facility] Hemoglobin 11.2-15.7 Normal (applies to non-numeric resul ts) [facility] Hematocrit 34.1-44.9 Normal (applies to non-numeric resul ts) [facility] Mean Corpuscular Volume 81-[address] [facility] Mean Corpuscular Hemoglobin 27.0-33.[address] [facility] Mean Corpuscular HGB Conc 32.0-36.0 Normal (applies to no n-numeric results) [facility] Red Cell Distribution Width 11.5-14.[address] [facility] Platelet Count 99 X10 3/uL 130-[address] [facility] Mean Platelet Volume 9.5-12.7 Normal (applies to non-num reynaldo results) [facility] Imm Grans% (AUTO) 0 % 0-2 Normal (applies to non-numeri c results) [facility] Neutrophils % (AUTO) 64 % 40-75 Normal (applies to non-num reynaldo results) [facility] Lymphocytes % (AUTO) 19 % 21-46 Below low normal [facility] Monocytes % (AUTO) 14 % 5-12 Above high normal [facility] Eosinophils % (AUTO) 3 % 1-5 Normal (applies to non-num reynaldo results) [facility] Basophils % (AUTO) 1 % 0-1 Normal (applies to non-numer ic results) [facility] Imm Grans# (AUTO) 0.0-0.5 Normal (applies to non-numeri c results) [facility] Neutrophils # (AUTO) 1.5-8.1 Normal (applies to non-num reynaldo results) [facility] Lymphocytes # (AUTO) 1.0-3.1 Normal (applies to non-num reynaldo results) [facility] Monocytes # (AUTO) 0.2-1.3 Normal (applies to non-numer ic results) [facility] Eosinophils# (AUTO) 0.0-0.5 Normal (applies to non-nume zora results) [facility] Basophils # (AUTO) 0.0-0.1 Normal (applies to non-numer ic results) [facility] ID Date Data Source [id number] 03/21/2020 10:18:[address] [facility] Name Value Range Interpretation Code Description Data Julia rce(s) Supporting Document(s) Sodium 134 mmol/L 137-145 Below low normal [facility] Potassium 3.5-5.1 Normal (applies to non-numeric resul ts) [facility] Chloride 101 mmol/L 98-112 Normal (applies to non-numeric resul ts) [facility] Carbon Dioxide CO2 22.0-33.0 Normal (applies to non-numer ic results) [facility] Anion Gap 4.0-11.0 Below low normal [facility] BUN 9 mg/dL 7-17 Normal (applies to non-numeric resul ts) [facility] Creatinine 0.70-1.20 Below low normal [facility] GFR >60 Normal (applies to non-numeric results) [facility] Result based on MDRD formula. Glucose Level 92 mg/dL 74-99 Normal (applies to non-numeric re sults) [facility] The reference range is only applicable w hen fasting. Calcium-Uncorrected 8.4-10.2 Below low normal [facility] Corrected Calcium 8.4-10.2 Normal (applies to non-numeri c results) [facility] Bilirubin,Total 0.2-1.[address] [facility] SGOT(AST) 78 U/L 14-36 Above high normal [facility] SGPT(ALT) 24 U/L 9-52 Normal (applies to non-numeric resul ts) [facility] Alkaline Phosphatase 108 U/L 38-126 Normal (applies to non-num reynaldo results) [facility] can increase Alkaline Phosp le vels up to 2 times the normal adult value. Normal values for children and adolescents are 2 to 3 times the normal adult value. Total Protein 6.3-8.2 Below low normal [facility] Albumin 3.5-5.0 Below low normal [facility] ID Date Data Source [id number] 03/21/2020 10:18:[address] [facility] Name Value Range Interpretation Code Description Data Julia rce(s) Supporting Document(s) Bilirubin,Direct 0.0-0.[address] [facility] ID Date Data Source [id number] 03/21/2020 09:37:[address] [facility] Name Value Range Interpretation Code Description Data Julia rce(s) Supporting Document(s) White Blood Count 4.8-10.8 Normal (applies to non-numeri c results) [facility] Red Blood Count 3.68-5.[address] [facility] Hemoglobin 11.2-15.7 Normal (applies to non-numeric resul ts) [facility] Hematocrit 34.1-44.9 Below low normal [facility] Mean Corpuscular Volume 81-[address] [facility] Mean Corpuscular Hemoglobin 27.0-33.[address] [facility] Mean Corpuscular HGB Conc 32.0-36.0 Normal (applies to no n-numeric results) [facility] Red Cell Distribution Width 11.5-14.[address] [facility] Platelet Count 94 X10 3/uL 130-[address] [facility] Mean Platelet Volume 9.5-12.7 Normal (applies to non-num reynaldo results) [facility] Imm Grans% (AUTO) 1 % 0-2 Normal (applies to non-numeri c results) [facility] Neutrophils % (AUTO) 66 % 40-75 Normal (applies to non-num reynaldo results) [facility] Lymphocytes % (AUTO) 16 % 21-46 Below low normal [facility] Monocytes % (AUTO) 15 % 5-12 Above high normal [facility] Eosinophils % (AUTO) 2 % 1-5 Normal (applies to non-num reynaldo results) [facility] Basophils % (AUTO) 1 % 0-1 Normal (applies to non-numer ic results) [facility] Imm Grans# (AUTO) 0.0-0.5 Normal (applies to non-numeri c results) [facility] Neutrophils # (AUTO) 1.5-8.1 Normal (applies to non-num reynaldo results) [facility] Lymphocytes # (AUTO) 1.0-3.1 Normal (applies to non-num reynaldo results) [facility] Monocytes # (AUTO) 0.2-1.3 Normal (applies to non-numer ic results) [facility] Eosinophils# (AUTO) 0.0-0.5 Normal (applies to non-nume zora results) [facility] Basophils # (AUTO) 0.0-0.1 Normal (applies to non-numer ic results) [facility] ID Date Data Source [id number] 03/20/2020 09:34:[address] [facility] Name Value Range Interpretation Code Description Data Julia rce(s) Supporting Document(s) Sodium 137 mmol/L 137-145 Normal (applies to non-numeric resul ts) [facility] Potassium 3.5-5.1 Normal (applies to non-numeric resul ts) [facility] Chloride 103 mmol/L 98-112 Normal (applies to non-numeric resul ts) [facility] Carbon Dioxide CO2 22.0-33.0 Normal (applies to non-numer ic results) [facility] Anion Gap 4.0-11.0 Normal (applies to non-numeric resul ts) [facility] BUN 10 mg/dL 7-17 Normal (applies to non-numeric resul ts) [facility] Creatinine 0.70-1.20 Below low normal [facility] GFR >60 Normal (applies to non-numeric results) [facility] Result based on MDRD formula. Glucose Level 110 mg/dL 74-99 Above high normal [facility] The reference range is only applicable w hen fasting. Calcium-Uncorrected 8.4-10.2 Below low normal [facility] Corrected Calcium 8.4-10.2 Normal (applies to non-numeri c results) [facility] Bilirubin,Total 0.2-1.[address] [facility] SGOT(AST) 58 U/L 14-36 Above high normal [facility] SGPT(ALT) 18 U/L 9-52 Normal (applies to non-numeric resul ts) [facility] Alkaline Phosphatase 99 U/L 38-126 Normal (applies to non-num reynaldo results) [facility] can increase Alkaline Phosp le vels up to 2 times the normal adult value. Normal values for children and adolescents are 2 to 3 times the normal adult value. Total Protein 6.3-8.2 Below low normal [facility] Albumin 3.5-5.0 Below low normal [facility] ID Date Data Source [id number] 03/20/2020 09:34:[address] [facility] Name Value Range Interpretation Code Description Data Julia rce(s) Supporting Document(s) Bilirubin,Direct 0.0-0.[address] [facility] ID Date Data Source [id number] 03/20/2020 09:20:[address] [facility] Name Value Range Interpretation Code Description Data Julia rce(s) Supporting Document(s) Ammonia 39 umol/L 11-32 Above high normal [facility] ID Date Data Source [id number] 03/20/2020 09:06:[address] [facility] Name Value Range Interpretation Code Description Data Julia rce(s) Supporting Document(s) White Blood Count 4.8-10.8 Normal (applies to non-numeri c results) [facility] Red Blood Count 3.68-5.[address] [facility] Hemoglobin 11.2-15.7 Below low normal [facility] Hematocrit 34.1-44.9 Below low normal [facility] Mean Corpuscular Volume 81-[address] [facility] Mean Corpuscular Hemoglobin 27.0-33.[address] [facility] Mean Corpuscular HGB Conc 32.0-36.0 Normal (applies to no n-numeric results) [facility] Red Cell Distribution Width 11.5-14.[address] [facility] Platelet Count 86 X10 3/uL 130-[address] [facility] Mean Platelet Volume 9.5-12.7 Normal (applies to non-num reynaldo results) [facility] Imm Grans% (AUTO) 0 % 0-2 Normal (applies to non-numeri c results) [facility] Neutrophils % (AUTO) 66 % 40-75 Normal (applies to non-num reynaldo results) [facility] Lymphocytes % (AUTO) 17 % 21-46 Below low normal [facility] Monocytes % (AUTO) 14 % 5-12 Above high normal [facility] Eosinophils % (AUTO) 2 % 1-5 Normal (applies to non-num reynaldo results) [facility] Basophils % (AUTO) 1 % 0-1 Normal (applies to non-numer ic results) [facility] Imm Grans# (AUTO) 0.0-0.5 Normal (applies to non-numeri c results) [facility] Neutrophils # (AUTO) 1.5-8.1 Normal (applies to non-num reynaldo results) [facility] Lymphocytes # (AUTO) 1.0-3.1 Normal (applies to non-num reynaldo results) [facility] Monocytes # (AUTO) 0.2-1.3 Normal (applies to non-numer ic results) [facility] Eosinophils# (AUTO) 0.0-0.5 Normal (applies to non-nume zora results) [facility] Basophils # (AUTO) 0.0-0.1 Normal (applies to non-numer ic results) [facility] ID Date Data Source [id number] 03/19/2020 08:03:00 AM EDT [facility] Name: SANA SU Pavan : 1960 A ge/Sex: 60F Attending Physician: Soniya Cheng MD [facility] Rec #: [id number] Admission Date: 03/17/20 Room #: 304-01 Admitting Physician: Soniya Cheng MD Report Number: [id number] _ cc: Send Report To: Report Status [...] andlactic acid, however. Dictated Date/Time/Job.No.: 03/19/20 0340 [id number] REPORT SIGNATURE ON FILE Dictated By: Soniya Cheng MD <Electronically signed by Soniya Cheng MD> 03/20/20 0238 Transcribed Date/Time: 03/19/20 0803/JUSTIN Name Value Range Interpretation Code Description Data Julia rce(s) Supporting Document(s) ID Date Data Source [id number] 03/19/2020 05:33:00 AM EDT [facility] Name: SANA SU : 1960 A ge/Sex: 60F Attending Physician: Soniya Cheng MD Med Rec #: [id number] Admission Date: 03/17/20 Room #: 304-01 Admitting Physician: Soniya Cheng MD Report Number: [id number] _ cc: Send Report To: Report Status [...] 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 REPORT SIGNATURE ON FILE Dictated By: Polina Chiu MD <Electronically signed by Marcela Chiu MD> 03/19/20 1730 Dictation Date/Time: 03/18/20 4540 Transcribed Date/Time: 03/19/20 0533/JUANA Name Value Range Interpretation Code Description Data Julia rce(s) Supporting Document(s) ID Date Data Source [id number] 03/19/2020 08:30:00 AM EDT [facility] Name: SANA SU : 1960 A ge/Sex: 60F Attending Physician: Soniya Cheng MD Med Rec #: [id number] Admission Date: 03/17/20 Room #: [facility] Admitting Physician: Soniya Cheng MD Report Number: [id number] _ cc: PCP None Send Report To: [...] rce(s) Supporting Document(s) ID Date Data Source [id number] 03/19/2020 06:26:[address] [facility] Name Value Range Interpretation Code Description Data Julia rce(s) Supporting Document(s) Sodium 138 mmol/L 137-145 Normal (applies to non-numeric resul ts) [facility] Potassium 3.5-5.1 Below low normal [facility] Chloride 102 mmol/L 98-112 Normal (applies to non-numeric resul ts) [facility] Carbon Dioxide CO2 22.0-33.0 Normal (applies to non-numer ic results) [facility] Anion Gap 4.0-11.0 Normal (applies to non-numeric resul ts) [facility] BUN 9 mg/dL 7-17 Normal (applies to non-numeric resul ts) [facility] Creatinine 0.70-1.20 Below low normal [facility] GFR >60 Normal (applies to non-numeric results) [facility] Result based on MDRD formula. Glucose Level 87 mg/dL 74-99 Normal (applies to non-numeric re sults) [facility] The reference range is only applicable w hen fasting. Calcium-Uncorrected 8.4-10.2 Below low normal [facility] Corrected Calcium 8.4-10.2 Normal (applies to non-numeri c results) [facility] Bilirubin,Total 0.2-1.[address] [facility] SGOT(AST) 51 U/L 14-36 Above high normal [facility] SGPT(ALT) 16 U/L 9-52 Normal (applies to non-numeric resul ts) [facility] Alkaline Phosphatase 90 U/L 38-126 Normal (applies to non-num reynaldo results) [facility] can increase Alkaline Phosp le vels up to 2 times the normal adult value. Normal values for children and adolescents are 2 to 3 times the normal adult value. Total Protein 6.3-8.2 Below low normal [facility] Albumin 3.5-5.0 Below low normal [facility] ID Date Data Source [id number] 03/19/2020 06:26:00 AM EDT [facility] Name Value Range Interpretation Code Description Data Julia rce(s) Supporting Document(s) Bilirubin,Direct 0.0-0.[address] [facility] ID Date Data Source [id number] 03/19/2020 05:43:[address] [facility] Name Value Range Interpretation Code Description Data Julia rce(s) Supporting Document(s) Ammonia 68 umol/L 11-32 Above high normal [facility] ID Date Data Source [id number] 03/19/2020 05:21:[address] [facility] Name Value Range Interpretation Code Description Data Julia rce(s) Supporting Document(s) White Blood Count 4.8-10.8 Normal (applies to non-numeri c results) [facility] Red Blood Count 3.68-5.[address] [facility] Hemoglobin 11.2-15.7 Below low normal [facility] Hematocrit 34.1-44.9 Below low normal [facility] Mean Corpuscular Volume 81-[address] [facility] Mean Corpuscular Hemoglobin 27.0-33.[address] [facility] Mean Corpuscular HGB Conc 32.0-36.0 Normal (applies to no n-numeric results) [facility] Red Cell Distribution Width 11.5-14.[address] [facility] Platelet Count 77 X10 3/uL 130-[address] [facility] Mean Platelet Volume 9.5-12.7 Normal (applies to non-num reynaldo results) [facility] Imm Grans% (AUTO) 0 % 0-2 Normal (applies to non-numeri c results) [facility] Neutrophils % (AUTO) 64 % 40-75 Normal (applies to non-num reynaldo results) [facility] Lymphocytes % (AUTO) 19 % 21-46 Below low normal [facility] Monocytes % (AUTO) 16 % 5-12 Above high normal [facility] Eosinophils % (AUTO) 2 % 1-5 Normal (applies to non-num reynaldo results) [facility] Basophils % (AUTO) 1 % 0-1 Normal (applies to non-numer ic results) [facility] Imm Grans# (AUTO) 0.0-0.5 Normal (applies to non-numeri c results) [facility] Neutrophils # (AUTO) 1.5-8.1 Normal (applies to non-num reynaldo results) [facility] Lymphocytes # (AUTO) 1.0-3.1 Normal (applies to non-num reynaldo results) [facility] Monocytes # (AUTO) 0.2-1.3 Normal (applies to non-numer ic results) [facility] Eosinophils# (AUTO) 0.0-0.5 Normal (applies to non-nume zora results) [facility] Basophils # (AUTO) 0.0-0.1 Normal (applies to non-numer ic results) [facility] ID Date Data Source [id number] 03/19/2020 02:05:00 AM EDT [facility] Name Value Range Interpretation Code Description Data Julia rce(s) Supporting Document(s) Procalcitonin 0.00-0.24 Normal (applies to non-numeric re sults) [facility] 1.Risk of Progression to severe sepsis a [...] therapy is warranted. ID Date Data Source [id number] 03/19/2020 01:56:[address] [facility] 3 hour post Lactic if elevated? Y Name Value Range Interpretation Code Description Data Julia rce(s) Supporting Document(s) Lactic Acid 0.4-2.0 Normal (applies to non-numeric resu lts) [facility] ID Date Data Source [id number] 03/19/2020 01:53:[address] [facility] Name Value Range Interpretation Code Description Data Julia rce(s) Supporting Document(s) Sodium 137 mmol/L 137-145 Normal (applies to non-numeric resul ts) [facility] Potassium 3.5-5.1 Below low normal [facility] Chloride 101 mmol/L 98-112 Normal (applies to non-numeric resul ts) [facility] Carbon Dioxide CO2 22.0-33.0 Normal (applies to non-numer ic results) [facility] Anion Gap 4.0-11.0 Normal (applies to non-numeric resul ts) [facility] BUN 9 mg/dL 7-17 Normal (applies to non-numeric resul ts) [facility] Creatinine 0.70-1.20 Below low normal [facility] GFR >60 Normal (applies to non-numeric results) [facility] Result based on MDRD formula. Glucose Level 108 mg/dL 74-99 Above high normal [facility] The reference range is only applicable w hen fasting. Calcium-Uncorrected 8.4-10.2 Below low normal [facility] Corrected Calcium 8.4-10.2 Normal (applies to non-numeri c results) [facility] ID Date Data Source [id number] 03/19/2020 01:30:00 AM EDT [facility] Name Value Range Interpretation Code Description Data Julia rce(s) Supporting Document(s) White Blood Count 4.8-10.8 Normal (applies to non-numeri c results) [facility] Red Blood Count 3.68-5.[address] [facility] Hemoglobin 11.2-15.7 Below low normal [facility] Hematocrit 34.1-44.9 Below low normal [facility] Mean Corpuscular Volume 81-[address] [facility] Mean Corpuscular Hemoglobin 27.0-33.[address] [facility] Mean Corpuscular HGB Conc 32.0-36.0 Normal (applies to no n-numeric results) [facility] Red Cell Distribution Width 11.5-14.[address] [facility] Platelet Count 76 X10 3/uL 130-[address] [facility] Mean Platelet Volume 9.5-12.7 Normal (applies to non-num reynaldo results) [facility] Imm Grans% (AUTO) 1 % 0-2 Normal (applies to non-numeri c results) [facility] Neutrophils % (AUTO) 66 % 40-75 Normal (applies to non-num reynaldo results) [facility] Lymphocytes % (AUTO) 16 % 21-46 Below low normal [facility] Monocytes % (AUTO) 15 % 5-12 Above high normal [facility] Eosinophils % (AUTO) 2 % 1-5 Normal (applies to non-num reynaldo results) [facility] Basophils % (AUTO) 1 % 0-1 Normal (applies to non-numer ic results) [facility] Imm Grans# (AUTO) 0.0-0.5 Normal (applies to non-numeri c results) [facility] Neutrophils # (AUTO) 1.5-8.1 Normal (applies to non-num reynaldo results) [facility] Lymphocytes # (AUTO) 1.0-3.1 Normal (applies to non-num reynaldo results) [facility] Monocytes # (AUTO) 0.2-1.3 Normal (applies to non-numer ic results) [facility] Eosinophils# (AUTO) 0.0-0.5 Normal (applies to non-nume zora results) [facility] Basophils # (AUTO) 0.0-0.1 Normal (applies to non-numer ic results) [facility] ID Date Data Source [id number] 03/18/2020 11:14:00 AM EDT [facility] Name: SANA SU : 1960 A ge/Sex: 60F Attending Physician: Soniya Cheng MD Med Rec #: [id number] Admission Date: 03/17/20 Room #: 304-01 Admitting Physician: Soniya Cheng MD Report Number: [id number] _ cc: PCP None Send Report To: Report Status - Signed HISTORY AND PHYSICAL Date of Admission: 03/17/20 CHIEF COMPLAINT: A 60-ear-old female who originally presented to [facility] Emergency Room, transferred to our facility for further management of severe ascites and decompensated liver disease. HISTORY OF PRESENT ILLNESS: Sana who does not have a primary care physician recently moved from [place] where she had lived most of her life. The patientmoved to [place] within the last month after being quarantined with her daughter in [place], [place] from the previous two and half months. She did not think that she had any major medical problems until approximately three months ago. 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 She had injured her right knee, which had been previously fractures many years ago. Thepatient was taken Ibuprofen and at that time noticed that she began having increased swelling of her lower extremities and her abdomen. To her this appearto accumulate a short period of time. She had seen someone in Urgent Care in the [place] area who had prescribed; spironolactone and furosemide. She had taken this initially which had been helpful, however, stopped in when she began experiencing weakness and muscle aches and cramps. She then resumed it, althoughit did not seem to be as affective. She did go also to [facility], Emergency Room on 03-01-2020 complaining of [...] officially moved in with her mother in [place]. Arrived to the ER in [place] as she wanted to get help with [...] it isimproving. The patient was seen in [place] by YARELI Marcos. Her lab work there, [...] Case was discussed with the Hospitalist at [facility]. She was transferred to our facility for [...] [facility] She had no respiratory [...] six years ago. She worked at a [employer] at a [employer] until earlier this year. She had lived with her daughter in [place] for two and half months under quarantine when her restaurant closed. [facility]. She now [facility] [place],she just recently moved within the last month. [...] both sides. LABORATORY AND X-RAY DATA: From [place] as mentioned above. ASSESSMENT: A 60-year-old female [...] [facility] 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 The patient has hyperbilirubinemia and elevated AST consistentwith alcohol injury. The patient is not tender over her liver, was considering alcohol hepatitis. Her bilirubin in March 02 in [place] was also elevated at 5.7. PLAN: The [...] of magnesium as she as hypomagnesemic in [place] and oral potassium. We will also start [...] need a new primary physician and a manager respiratory to further monitor her. I did order a nicotine patch as well. TIME SPENT: 75 minutes was spent in total time with over half the time in [id number] time. ADDENDUM: The patient also has an [...] rce(s) Supporting Document(s) ID Date Data Source [id number] 03/18/2020 05:48:00 PM EDT [facility] Name Value Range Interpretation Code Description Data [facility] rce(s) Supporting Document(s) Sodium 135 mmol/L 137-145 Below low normal [facility] Potassium 3.5-5.1 Normal (applies to non-numeric resul ts) [facility] Chloride 99 mmol/L 98-112 Normal (applies to non-numeric resul ts) [facility] Carbon Dioxide CO2 22.0-33.0 Normal (applies to non-numer ic results) [facility] Anion Gap 4.0-11.0 Normal (applies to non-numeric resul ts) [facility] BUN 9 mg/dL 7-17 Normal (applies to non-numeric resul ts) [facility] Creatinine 0.70-1.20 Below low normal [facility] GFR >60 Normal (applies to non-numeric results) [facility] Result based on MDRD formula. Glucose Level 107 mg/dL 74-99 Above high normal [facility] The reference range is only applicable w hen fasting. Calcium-Uncorrected 8.4-10.2 Below low normal [facility] Corrected Calcium 8.4-10.2 Normal (applies to non-numeri c results) [facility] Bilirubin,Total 0.2-1.[address] [facility] SGOT(AST) 74 U/L 14-36 Above high normal [facility] SGPT(ALT) 23 U/L 9-52 Normal (applies to non-numeric resul ts) [facility] Alkaline Phosphatase 130 U/L 38-126 Above high normal [facility] can increase Alkaline Phosp le vels up to 2 times the normal adult value. Normal values for children and adolescents are 2 to 3 times the normal adult value. Total Protein 6.3-8.2 Normal (applies to non-numeric re sults) [facility] Albumin 3.5-5.0 Below low normal [facility] ID Date Data Source [id number] 03/18/2020 05:48:00 PM EDT [facility] Name Value Range Interpretation Code Description Data Julia rce(s) Supporting Document(s) Bilirubin,Direct 0.0-0.[address] [facility] ID Date Data Source [id number] 03/20/2020 12:36:00 PM EDT [facility] Sp johnson Garduno MD, Director PAGE [address] [place] [address] [place] [address] Name: SANA SU Rec #: [id number]: 1960 Age/Sex: 60/F Attending Provider: Soniya Cheng MD Date of Service: 03/17/20 Location: [facility] CC: MD Bruce Ross PA [facility] None Polina Chiu MD Specimen: [id number] Received: [id number] Status: RAJ Perez Num: [id number] Collected: Sp Type: SURGICAL Subm Doc: Soniya [...] rce(s) Supporting Document(s) ID Date Data Source [id number] 03/20/2020 12:01:00 PM EDT [facility] Name: SANA SU : 1960 A ge/Sex: 60F Ordering Provider: Polina Chiu MD Med Rec #: [id number] Reg Status: ADM IN Room #: 312-1 Date of Service: 03/18/20 Report Number: [id number] cc:Polina Chiu MD; PCP None Send Report To: [id number] US/US Paracentesis Reason for exam: fluid build up FINDINGS: Ultrasound guidance was provided to Dr. Chiu for performing paracentesis at bedside. REPORT SIGNATURE ON FILE Reported By: Luis Haddad MD <Electronically signed by Severo Haddad MD> 03/21/20 0942 Dictation Date/Time: 03/20/20 0638 Transcribed Date/Time: 03/20/20 12[address] [place] Operator: DANTE Name Value Range Interpretation Code Description Data Julia rce(s) Supporting Document(s) ID Date Data Source [id number] 03/19/2020 02:20:00 PM EDT [facility] Name Value Range Interpretation Code Description Data Julia rce(s) Supporting Document(s) Volume,(Barbi Fluid) 2 mL Normal (applies to non-nume zora results) [facility] ID Date Data Source [id number] 03/19/2020 02:20:00 PM EDT [facility] Name Value Range Interpretation Code Description Data Julia rce(s) Supporting Document(s) Appearance,(Barbi Fluid) Normal (applies to non- numeric results) [facility] Slide reviewed by Pathologist for conf irmation. 03/19/20 DR GARDUNO. This is a Corrected Result --- 03/19/20 1420 --- Appear(PeriFld) previously reported as: Clear ID Date Data Source [id number] 03/19/2020 02:20:00 PM EDT [facility] Name Value Range Interpretation Code Description Data Julia rce(s) Supporting Document(s) Color,(Barbi Fld) Normal (applies to non-numeric results) [facility] ID Date Data Source [id number] 03/19/2020 02:20:00 PM [facility] Name Value Range Interpretation Code Description Data Julia rce(s) Supporting Document(s) RBC (Barbi Fld) 1000 uL Normal (applies to non-numeric r esults) [facility] No established reference values ID Date Data Source [id number] 03/19/2020 02:20:00 PM T [facility] Name Value Range Interpretation Code Description Data Julia rce(s) Supporting Document(s) WBC (Barbi Fld) 97 uL Normal (applies to non-numeric r esults) [facility] No established reference values ID Date Data Source [id number] 03/19/2020 02:20:00 PM [facility] Name Value Range Interpretation Code Description Data Julia rce(s) Supporting Document(s) Mononuclear %(Barbi Fld) Normal (applies to non- numeric results) [facility] No established reference values ID Date Data Source [id number] 03/19/2020 02:20:00 PM EDT [facility] Name Value Range Interpretation Code Description Data Julia rce(s) Supporting Document(s) Polymononuclear %(Barbi Fld) Normal (applies to non-numeric results) [facility] No established reference values ID Date Data Source [id number] 03/19/2020 02:20:00 PM EDT [facility] Name Value Range Interpretation Code Description Data Julia rce(s) Supporting Document(s) Mononuclear #(Barbi Fld) 66 uL Normal (applies to non- numeric results) [facility] No established reference values ID Date Data Source [id number] 03/19/2020 02:20:00 PM [facility] Name Value Range Interpretation Code Description Data Julia rce(s) Supporting Document(s) Polymononuclear #(Barbi Fld) 31 uL Normal (applies to non-numeric results) [facility] No established reference values ID Date Data Source [id number] 03/19/2020 02:20:00 PM EDF [facility] Name Value Range Interpretation Code Description Data Julia rce(s) Supporting Document(s) Glucose,(Barbi Fld) 120 mg/dL Normal (applies to non-numer ic results) [facility] No established reference values ID Date Data Source [id number] 03/19/2020 02:20:00 PM EDT [facility] Name Value Range Interpretation Code Description Data Julia rce(s) Supporting Document(s) LDH,(Barbi Fld) 46 U/L Normal (applies to non-numeric r esults) [facility] No established reference values ID Date Data Source [id number] 03/19/2020 02:20:00 PM [facility] Name Value Range Interpretation Code Description Data Julia rce(s) Supporting Document(s) Total Protein,(Barbi Fld) Normal (applies to non -numeric results) [facility] No established reference values ID Date Data Source [id number] 03/19/2020 02:20:00 PM EDT [facility] Name Value Range Interpretation Code Description Data Julia rce(s) Supporting Document(s) Albumin (Barbi Fld) Normal (applies to non-numer ic results) [facility] No established reference values ID Date Data Source [id number] 03/20/2020 04:52:00 PM EDT [facility] Name Value Range Interpretation Code Description Data Julia rce(s) Supporting Document(s) Amylase,Body Fluid result 50 U/L Normal (applies to no n-numeric results) [facility] REFERENCE VALUE------ See Comment ADDITIONAL INFORMATION Peritoneal [...] ratio <1.0. All other fluids refer to [email or web address] for further interpretive information. This test has been modified from the railroad signal operator's instructions. Its performance characteristics were determined by [facility] in a manner consistent with CLIA requirements. This test has not been cleared or approved by the U.S. Food and Drug Administration. Amylase,Body Fluid Type Normal (applies to non- numeric results) [facility] Test Performed by: [address] [address] [employer]: Daniel Degroot M.D. Ph.D.; CLIA# [id number] ID Date Data Source [id number] 03/18/2020 07:14:[address] [facility] Name Value Range Interpretation Code Description Data Julia rce(s) Supporting Document(s) Hep C Ab-T Test Nonreactive Normal (applies to non-numeric results) [facility] ID Date Data Source [id number] 03/18/2020 07:14:[address] [facility] Name Value Range Interpretation Code Description Data Julia rce(s) Supporting Document(s) Hep Bs Ag Result T-Test Nonreactive Normal (applies to non -numeric results) [facility] ID Date Data Source [id number] 03/18/2020 07:14:[address] [facility] Name Value Range Interpretation Code Description Data Julia rce(s) Supporting Document(s) Hep Bs Ab Numeric result Normal (applies to non -numeric results) [facility] Reference Value Protected Immunity: >10 mIU/mL Non-Immunity : <10 mIU/mL Hep Bs Ab result T-Test [place] [facility] Reference Value Protected Immunity: Re active Non-Immunity : Nonreactive ID Date Data Source [id number] 03/18/2020 06:16:00 AM EDT [facility] Name Value Range Interpretation Code Description Data Julia rce(s) Supporting Document(s) Sodium 134 mmol/L 137-145 Below low normal [facility] Potassium 3.5-5.1 Normal (applies to non-numeric resul ts) [facility] Chloride 100 mmol/L 98-112 Normal (applies to non-numeric resul ts) [facility] Carbon Dioxide CO2 22.0-33.0 Normal (applies to non-numer ic results) [facility] Anion Gap 4.0-11.0 Normal (applies to non-numeric resul ts) [facility] BUN 8 mg/dL 7-17 Normal (applies to non-numeric resul ts) [facility] Creatinine 0.70-1.20 Below low normal [facility] GFR >60 Normal (applies to non-numeric results) [facility] Result based on MDRD formula. Glucose Level 98 mg/dL 74-99 Normal (applies to non-numeric re sults) [facility] The reference range is only applicable w hen fasting. Calcium-Uncorrected 8.4-10.2 Below low normal [facility] Corrected Calcium 8.4-10.2 Normal (applies to non-numeri c results) [facility] Bilirubin,Total 0.2-1.[address] [facility] SGOT(AST) 79 U/L 14-36 Above high normal [facility] SGPT(ALT) 22 U/L 9-52 Normal (applies to non-numeric resul ts) [facility] Alkaline Phosphatase 138 U/L 38-126 Above high normal [facility] can increase Alkaline Phosp le vels up to 2 times the normal adult value. Normal values for children and adolescents are 2 to 3 times the normal adult value. Total Protein 6.3-8.2 Normal (applies to non-numeric re sults) [facility] Albumin 3.5-5.0 Below low normal [facility] ID Date Data Source [id number] 03/18/2020 06:16:00 AM EDT [facility] Name Value Range Interpretation Code Description Data Julia rce(s) Supporting Document(s) Magnesium 1.80-2.40 Normal (applies to non-numeric resul ts) [facility] ID Date Data Source [id number] 03/18/2020 06:16:00 AM T [facility] Name Value Range Interpretation Code Description Data Julia rce(s) Supporting Document(s) Bilirubin,Direct 0.0-0.[address] [facility] ID Date Data Source [id number] 03/18/2020 05:30:[address] [facility] Name Value Range Interpretation Code Description Data Julia rce(s) Supporting Document(s) White Blood Count 4.8-10.8 Normal (applies to non-numeri c results) [facility] Red Blood Count 3.68-5.[address] [facility] Hemoglobin 11.2-15.7 Normal (applies to non-numeric resul ts) [facility] Hematocrit 34.1-44.9 Below low normal [facility] Mean Corpuscular Volume 81-[address] [facility] Mean Corpuscular Hemoglobin 27.0-33.[address] [facility] Mean Corpuscular HGB Conc 32.0-36.0 Normal (applies to no n-numeric results) [facility] Red Cell Distribution Width 11.5-14.[address] [facility] Platelet Count 93 X10 3/uL 130-[address] [facility] Mean Platelet Volume 9.5-12.7 Normal (applies to non-num reynaldo results) [facility] Imm Grans% (AUTO) 0 % 0-2 Normal (applies to non-numeri c results) [facility] Neutrophils % (AUTO) 66 % 40-75 Normal (applies to non-num reynaldo results) [facility] Lymphocytes % (AUTO) 16 % 21-46 Below low normal [facility] Monocytes % (AUTO) 15 % 5-12 Above high normal [facility] Eosinophils % (AUTO) 2 % 1-5 Normal (applies to non-num reynaldo results) [facility] Basophils % (AUTO) 1 % 0-1 Normal (applies to non-numer ic results) [facility] Imm Grans# (AUTO) 0.0-0.5 Normal (applies to non-numeri c results) [facility] Neutrophils # (AUTO) 1.5-8.1 Normal (applies to non-num reynaldo results) [facility] Lymphocytes # (AUTO) 1.0-3.1 Normal (applies to non-num reynaldo results) [facility] Monocytes # (AUTO) 0.2-1.3 Normal (applies to non-numer ic results) [facility] Eosinophils# (AUTO) 0.0-0.5 Normal (applies to non-nume zora results) [facility] Basophils # (AUTO) 0.0-0.1 Normal (applies to non-numer ic results) [facility] ID Date Data Source [id number] 03/20/2020 11:50:00 AM EDT [facility] [place] Garduno MD, Director PAGE [id number] [place] [address] [place] [address] Name: SANA SU [facility] Rec #: [id number]: 1960 Age/Sex: 60/F Attending Provider: Soniya Cheng MD Date of Service: 03/17/20 [place] [facility] [place]: MD Bruce Ross PA PCP None Polina Chiu MD Specimen: [id number] Received: [id number] Status: RAJ Perez Num: [id number] Collected: [id number] Type: PERITON [place] Subm Doc: Soniya [...] rce(s) Supporting Document(s) ID Date Data Source [id number] [facility] By: Nurse Initials: PASQUALE Time Collected: 1800 Name Value Range Interpretation Code Description Data Julia rce(s) Supporting Document(s) Color,Urine Colorl-Dk Y Normal (applies to non-numeric res ults) [facility] Clarity,Urine Clear Normal (applies to non-numeric re sults) [facility] Specific Amigo,Urine 1.005-1.030 Normal (applies to non- numeric results) [facility] pH,Urine 5.0-8.0 Normal (applies to non-numeric resul ts) [facility] Protein,Urine Negative Normal (applies to non-numeric re sults) [facility] Glucose,Urine Negative Normal (applies to non-numeric re sults) [facility] Ketones,Urine Negative [facility] Blood,Urine Negative Normal (applies to non-numeric resu lts) [facility] Bilirubin,Urine Negative [facility] Urobilinogen,Urine 0.2-1.0 [facility] Leukocyte Esterase,Urine Negative Normal (applies to non -numeric results) [facility] Nitrite,Urine Negative Normal (applies to non-numeric re sults) [facility] ID Date Data Source [id number] 03/17/2020 05:29:00 PM EDT [facility] Name Value Range Interpretation Code Description Data Julia rce(s) Supporting Document(s) Sodium 134 mmol/L 136-145 Below low normal [facility] ospital Potassium 3.5-5.1 Below low normal [facility] spital Chloride 97 mmol/L 98-107 Below low normal [facility] spital Carbon Dioxide CO2 21-32 Normal (applies to non-numer ic results) [facility] Anion Gap 5.0-16.0 Normal (applies to non-numeric resul ts) [facility] BUN 6 mg/dL 7-18 Below low normal [facility] spital Creatinine,Serum 0.7-1.2 Below low normal [facility] GFR >60 Normal (applies to non-numeric results) [facility] Glucose Level 102 mg/dL 60-99 Above high normal [facility] Reference range is only applicable when patient is fasting Note the following drug interference: Sulfasalazine Sulfapyridine Can see falsely depressed Can see falsely elevated result with up to 17% results with up to 11% decrease in measurement increase in measurement Recommend patients be collected for this test prior to administration of either drug. Calcium 8.5-10.1 Below low normal [facility] spital Bilirubin,Total 0.1-1.9 [facility] Tracy Lowe RN read back critical infor sebas 03/17/20 8082 LAB.MCNRO SGOT(AST) 86 U/L 15-37 Above high normal [facility] ospital Note the following drug interference: Sulfasalazine Sulfapyridine Can see falsely depressed Can see falsely elevated result with up to 10% results with up to 10% decrease in measurement increase in measurement Recommend patients be collected for this test prior to administration of either drug. SGPT(ALT) 26 U/L 12-78 Normal (applies to non-numeric resul ts) [facility] Note the following drug interference: Sulfasalazine Sulfapyridine Can see falsely depressed Can see falsely elevated result with up to 29% results with up to 10% decrease in measurement increase in measurement Recommend patients be collected for this test prior to administration of either drug. Alkaline Phosphatase 163 U/L 38-126 Above high normal [facility] can increase Alkaline Phosp le vels up to 2 times the normal adult value. Normal values for children and adolescents are 2 to 3 times the normal adult value. Total Protein 6.0-8.2 Normal (applies to non-numeric re sults) [facility] Albumin Level 3.4-5.0 Below low normal [facility] ID Date Data Source [id number] 03/17/2020 05:29:00 PM Located within [facility] Name Value Range Interpretation Code Description Data Julia rce(s) Supporting Document(s) Magnesium 1.8-2.4 Below low normal [facility] ID Date Data Source [id number] 03/17/2020 05:29:00 PM Located within [facility] Name Value Range Interpretation Code Description Data Julia rce(s) Supporting Document(s) Amylase 107 U/L 25-115 Normal (applies to non-numeric resul ts) [facility] ID Date Data Source [id number] 03/17/2020 05:29:00 PM Located within [facility] Name Value Range Interpretation Code Description Data Julia rce(s) Supporting Document(s) Lipase 571 U/L 73-393 Above high normal [facility] ID Date Data Source [id number] 03/17/2020 05:19:00 PM Located within [facility] Name Value Range Interpretation Code Description Data Julia rce(s) Supporting Document(s) Lactic Acid 0.4-2.0 Normal (applies to non-numeric resu lts) [facility] ID Date Data Source [id number] 03/17/2020 05:13:00 PM EDT [facility] Name Value Range Interpretation Code Description Data Julia rce(s) Supporting Document(s) PT 9.2-11.7 Above high normal [facility] ospital INR Normal (applies to non-numeric results) [facility] The use of INR is restricted to patients on stable oral anticoagulant. Therapeutic Range: 2.0 - 3.0 High Risk Range: 2.5 - 3.5 ID Date Data Source [id number] 03/17/2020 05:13:00 PM Located within [facility] Name Value Range Interpretation Code Description Data Julia rce(s) Supporting Document(s) PTT 23.8-37.9 Normal (applies to non-numeric results) [facility] ID Date Data Source [id number] 03/17/2020 04:54:00 PM Located within [facility] Name Value Range Interpretation Code Description Data Julia rce(s) Supporting Document(s) White Blood Count 3.5-10.5 Normal (applies to non-numeri c results) [facility] Red Blood Count 3.90-5.00 Below low normal [facility] Hemoglobin 12.0-15.5 Normal (applies to non-numeric resul ts) [facility] Hematocrit 34.9-44.5 Normal (applies to non-numeric resul ts) [facility] Mean Corpuscular Volume 81.2-95.1 Above high normal [facility] Mean Corpuscular Hgb 25.6-32.2 Above high normal [facility] Mean Corpuscular Hgb Conc 32.0-36.0 Normal (applies to no n-numeric results) [facility] Red Cell Distribution Width 11.9-15.5 Above high normal [facility] Platelet Count 108 x10 3/uL 150-450 Below low normal [facility] Mean Platelet Volume 9.4-12.4 Normal (applies to non-num reynaldo results) [facility] Neutrophils% (Auto) 31.0-71.0 Normal (applies to non-nume zora results) [facility] Lymphocytes% (Auto) 20.0-55.0 Below low normal [facility] Monocytes% (Auto) 4.0-12.0 Above high normal [facility] Eosinophils% (Auto) 1.0-8.0 Normal (applies to non-nume zora results) [facility] Basophils% (Auto) 0.0-2.0 Normal (applies to non-numeri c results) [facility] Immature Granulocytes% (Auto) 0.0-2.0 Normal (ivon lies to non-numeric results) [facility] Neutrophils# (Auto) 1.50-6.20 Normal (applies to non-nume zora results) [facility] Lymphocytes# (Auto) 1.20-4.00 Normal (applies to non-nume zora results) [facility] Monocytes# (Auto) 0.00-0.90 Above high normal [facility] Eosinophils# (Auto) 0.00-0.50 Normal (applies to non-nume zora results) [facility] Basophils# (Auto) 0.00-0.20 Normal (applies to non-numeri c results) [facility] Immature Granulocytes# (Auto) 0.00-7.00 No rmal (applies to non-numeric results) [facility] ID Date Data Source [id number] 03/18/2020 12:11:00 PM EDT [place] [facility] Department Imaging Report [address], [place] [address] %(RAD)RES..mtdd.print.filter("line") Name: SANA SU : 1960 Age/Sex: 60F Ordering Provider: Kiel Marcos NP Med Rec #: [id number] Reg Status: [facility] ER Room #: Date of Service: 03/17/20 Report Number: [id number] cc:Kiel Marcos NP; PCP None Send Report To: [id number] US/US Duplex Lower Ext Vein Bilat Reason [...] Date/Time: 03/17/20 1800 Transcribed Date/Time: 03/18/20 1211 [place] Operator: REMY Name Value Range Interpretation Code Description Data Julia rce(s) Supporting Document(s) ID Date Data Source [id number] 03/17/2020 04:39:00 PM EDT [place] [facility] Imaging Report [address] [place] [address] %(RAD)RES..mtdd.print.filter("line") Name: SANA SU : 1960 Age/Sex: 60F Ordering Provider: Kiel Marcos NP Med Rec #: [id number] Reg Status: [facility] ER Room #: Date of Service: 03/17/20 Report Number: [id number] cc:PCP None Send Report To: [id number] CT/CT Abdomen & Pelvis No Contras Reason [...] Date/Time: 03/17/20 1638 Transcribed Date/Time: 03/17/20 1639 [place] Operator: REMY Name Value Range Interpretation Code Description Data Julia rce(s) Supporting Document(s) ID Date Data Source [id number] 01/17/2020 11:14:00 AM EDT CHARTMAKER ([facility]) ABDOMEN INDICATION: Pain COMPARISON: None TECHNIQUE: AP supine views of the abdomen were obtained. FINDINGS: Moderate stool in the colon. No dilated bowel. No evidence of free air or free fluid. No abnormal soft tissue mass lesions are identified. There are no pathological calcifications. IMPRESSION: Moderate stool in the colon, no dilated bowel Professional interpretation performed by [facility] Name Value Range Interpretation Code Description Data Julia rce(s) Supporting Document(s) ID Date Data Source [id number] 01/17/2020 12:00:00 AM EDT CHARTMAKER ([facility]) Name Value Range Interpretation Code Description Data Julia rce(s) Supporting Document(s) BASO # 0.1 10*3/uL BASO #: 0.1 10*3/uL 01/16 CHARTMAKER ([facility]) ID Date Data Source [id number] 01/17/2020 12:00:00 AM EDT [facility] ([facility]) Name Value Range Interpretation Code Description Data Julia rce(s) Supporting Document(s) EOS # 0.1 10*3/uL EOS #: 0.1 10*3/uL 2019 CHARTMAKER ([facility]) ID Date Data Source [id number] 01/17/2020 12:00:00 AM EDT [facility] Name Value Range Interpretation Code Description Data Julia rce(s) Supporting Document(s) MONO # 0.8 10*uL MONO #: 0.8 10*3/uL 01/16 CHARTMAKER ([facility]) ID Date Data Source [id number] 01/17/2020 12:00:00 AM EDT [facility] ([facility]) Name Value Range Interpretation Code Description Data Julia rce(s) Supporting Document(s) LYMPH # 1.2 10*uL LYMPH #: 1.2 10*3/uL 01/17/2020 CHARTMAKER ([facility]) ID Date Data Source [id number] 01/17/2020 12:00:00 AM EDT [facility] ([facility]) Name Value Range Interpretation Code Description Data Julia rce(s) Supporting Document(s) NEUT # 3.8 10*3uL NEUT #: 3.8 10*3/uL 01/16 CHARTMAKER ([facility]) ID Date Data Source [id number] 01/17/2020 12:00:00 AM EDT [facility] ([facility]) Name Value Range Interpretation Code Description Data Julia rce(s) Supporting Document(s) BASO % 1.3 % BASO %: 1.3 % 01/17/2020 CHARTM JOAQUIN ([facility]) ID Date Data Source [id number] 01/17/2020 12:00:00 AM EDT [facility] ([facility]) Name Value Range Interpretation Code Description Data Julia rce(s) Supporting Document(s) EOS % 1.8 % EOS %: 1.8 % 01/17/2020 CHARTMA KER ([facility]) ID Date Data Source [id number] 01/17/2020 12:00:00 AM EDT [facility] ([facility]) Name Value Range Interpretation Code Description Data Julia rce(s) Supporting Document(s) MONO % 13.4 % MONO %: 13.4 % 01/17/2020 CHART MAKER ([facility]) ID Date Data Source [id number] 01/17/2020 12:00:00 AM EDT [facility] ([facility]) Name Value Range Interpretation Code Description Data Julia rce(s) Supporting Document(s) LYMPH % 19.7 % LYMPH %: 19.7 % 01/17/2020 AURELIA TMAKER ([facility]) ID Date Data Source [id number] 01/17/2020 12:00:00 AM EDT [facility] ([facility]) Name Value Range Interpretation Code Description Data Julia rce(s) Supporting Document(s) NEUT % 63.8 % NEUT %: 63.8 % 01/17/2020 CHART MAKER ([facility]) ID Date Data Source [id number] 01/17/2020 12:00:00 AM EDT [facility]MAKER ([facility]) Name Value Range Interpretation Code Description Data Julia rce(s) Supporting Document(s) MPV 9.2 fL MPV: 9.2 fL 01/17/2020 CHARTMAK ER ([facility]) ID Date Data Source [id number] 01/17/2020 12:00:00 AM EDT [facility]MAKER ([facility]) Name Value Range Interpretation Code Description Data Julia rce(s) Supporting Document(s) PLT 119 10*3/uL PLT: 119 10*3/uL 01/17/2020 C HARTMAKER ([facility]) ID Date Data Source [id number] 01/17/2020 12:00:00 AM EDT [facility]MAKER ([facility]) Name Value Range Interpretation Code Description Data Julia rce(s) Supporting Document(s) RDW 16.7 % RDW: 16.7 % 01/17/2020 CHARTMAK ER ([facility]) ID Date Data Source [id number] 01/17/2020 12:00:00 AM EDT [facility]MAKER ([facility]) Name Value Range Interpretation Code Description Data Julia rce(s) Supporting Document(s) MCHC 34.5 g/dL MCHC: 34.5 g/dL 01/17/2020 AURELIA TMAKER ([facility]) ID Date Data Source [id number] 01/17/2020 12:00:00 AM EDT CHARTMAKER ([facility]) Name Value Range Interpretation Code Description Data Julia rce(s) Supporting Document(s) MCH 35.5 pg MCH: 35.5 pg 01/17/2020 CHARTMA KER ([facility]) ID Date Data Source [id number] 01/17/2020 12:00:00 AM EDT CHARTMAKER ([facility]) Name Value Range Interpretation Code Description Data Julia rce(s) Supporting Document(s) MCV 102.9 fL MCV: 102.9 fL 01/17/2020 CHARTM JOAQUIN ([facility]) ID Date Data Source [id number] 01/17/2020 12:00:00 AM EDT CHARTMAKER ([facility]) Name Value Range Interpretation Code Description Data Julia rce(s) Supporting Document(s) HCT 34.5 % HCT: 34.5 % 01/17/2020 CHARTMAK ER ([facility]) ID Date Data Source [id number] 01/17/2020 12:00:00 AM EDT CHARTMAKER ([facility]) Name Value Range Interpretation Code Description Data Julia rce(s) Supporting Document(s) HGB 11.9 g/dL HGB: 11.9 g/dL 01/17/2020 CHART MAKER ([facility]) ID Date Data Source [id number] 01/17/2020 12:00:00 AM EDT CHARTMAKER ([facility]) Name Value Range Interpretation Code Description Data Julia rce(s) Supporting Document(s) RBC 3.36 10*6/uL RBC: 3.36 10*6/uL 2019 CHARTMAKER ([facility]) ID Date Data Source [id number] 01/17/2020 12:00:00 AM EDT CHARTMAKER ([facility]) Name Value Range Interpretation Code Description Data Julia rce(s) Supporting Document(s) WBC 5.9 10*3/uL WBC: 5.9 10*3/uL 01/17/2020 C JAIMIEIDKER ([facility]) ID Date Data Source [id number] 01/17/2020 12:00:00 AM EDT CHARTMAKER ([facility]) Name Value Range Interpretation Code Description Data Julia rce(s) Supporting Document(s) GFR ( AMER) >60 GFR ( AMER ): >60 01/17/2020 CHARTMAKER ([facility]) ID Date Data Source [id number] 01/17/2020 12:00:00 AM EDT CHARTMAKER ([facility]) Name Value Range Interpretation Code Description Data Julia rce(s) Supporting Document(s) GFR >60 GFR : >60 01/17/2020 CHARTMAKER ([facility]) ID Date Data Source [id number] 01/17/2020 12:00:00 AM EDT CHARTMAKER ([facility]) Name Value Range Interpretation Code Description Data Julia rce(s) Supporting Document(s) ALT (SGPT) 32 U/L ALT (SGPT): 32 U/L 020 CHARTMAKER ([facility]) ID Date Data Source [id number] 01/17/2020 12:00:00 AM EDT CHARTMAKER ([facility]) Name Value Range Interpretation Code Description Data Julia rce(s) Supporting Document(s) AST (SGOT) 86 U/L AST (SGOT): 86 U/L 020 CHARTMAKER ([facility]) ID Date Data Source [id number] 01/17/2020 12:00:00 AM EDT CHARTMAKER ([facility]) Name Value Range Interpretation Code Description Data Julia rce(s) Supporting Document(s) BILIRUBIN,TOTAL 4.4 mg/dL BILIRUBIN,TOTAL: 4. 4 mg/dL 01/17/2020 CHARTMAKER ([facility]) ID Date Data Source [id number] 01/17/2020 12:00:00 AM EDT CHARTMAKER ([facility]) Name Value Range Interpretation Code Description Data Julia rce(s) Supporting Document(s) ALKALINE PHOSPHATASE 175 U/L ALKALINE PHOSPH ATASE: 175 U/L 01/17/2020 CHARTMAKER ([facility]) ID Date Data Source [id number] 01/17/2020 12:00:00 AM EDT CHARTMAKER ([facility]) Name Value Range Interpretation Code Description Data Julia rce(s) Supporting Document(s) ALB/GLOB RATIO 0.5 RATIO ALB/GLOB RATIO: 0.5 RATIO 01/17/2020 CHARTMAKER ([facility]) ID Date Data Source [id number] 01/17/2020 12:00:00 AM EDT CHARTMAKER ([facility]) Name Value Range Interpretation Code Description Data Julia rce(s) Supporting Document(s) GLOBULIN 4.6 g/dL GLOBULIN: 4.6 g/dL 020 CHARTMAKER ([facility]) ID Date Data Source [id number] 01/17/2020 12:00:00 AM EDT CHARTMAKER ([facility]) Name Value Range Interpretation Code Description Data Julia rce(s) Supporting Document(s) ALBUMIN 2.3 g/dL ALBUMIN: 2.3 g/dL 01/17/20 20 CHARTMAKER ([facility]) ID Date Data Source [id number] 01/17/2020 12:00:00 AM EDT CHARTMAKER ([facility]) Name Value Range Interpretation Code Description Data Julia rce(s) Supporting Document(s) TOTAL PROTEIN 6.9 g/dL TOTAL PROTEIN: 6.9 g/ dL 01/17/2020 CHARTMAKER ([facility]) ID Date Data Source [id number] 01/17/2020 12:00:00 AM EDT CHARTMAKER ([facility]) Name Value Range Interpretation Code Description Data Julia rce(s) Supporting Document(s) CALCIUM 8.4 mg/dL CALCIUM: 8.4 mg/dL 020 CHARTMAKER ([facility]) ID Date Data Source [id number] 01/17/2020 12:00:00 AM EDT CHARTMAKER ([facility]) Name Value Range Interpretation Code Description Data Julia rce(s) Supporting Document(s) Glucose [Mass/volume] in Serum or Plasma 97 mg/dL Glucose: 97 mg/dL 01/17/2020 CHARTMAKER ([facility]) ID Date Data Source [id number] 01/17/2020 12:00:00 AM EDT CHARTMAKER ([facility]) Name Value Range Interpretation Code Description Data Julia rce(s) Supporting Document(s) BUN/CREAT RATIO 15.4 RATIO BUN/CREAT RATIO: 15 .4 RATIO 01/17/2020 CHARTMAKER ([facility]) ID Date Data Source [id number] 01/17/2020 12:00:00 AM EDT CHARTMAKER ([facility]) Name Value Range Interpretation Code Description Data Julia rce(s) Supporting Document(s) Creatinine 0.52 mg/dL Creatinine: 0.52 mg/dL CHARTMAKER ([facility]) ID Date Data Source [id number] 01/17/2020 12:00:00 AM EDT CHARTMAKER ([facility]) Name Value Range Interpretation Code Description Data Julia rce(s) Supporting Document(s) UREA NITROGEN 8 mg/dL UREA NITROGEN: 8 mg/d L 01/17/2020 CHARTMAKER ([facility]) ID Date Data Source [id number] 01/17/2020 12:00:00 AM EDT CHARTMAKER ([facility]) Name Value Range Interpretation Code Description Data Julia rce(s) Supporting Document(s) ANION GAP 3 mmol/L ANION GAP: 3 mmol/L 2019 CHARTMAKER ([facility]) ID Date Data Source [id number] 01/17/2020 12:00:00 AM EDT CHARTMAKER ([facility]) Name Value Range Interpretation Code Description Data Julia rce(s) Supporting Document(s) CO2 33 mmol/L CO2: 33 mmol/L 01/17/2020 CHART MAKER ([facility]) ID Date Data Source [id number] 01/17/2020 12:00:00 AM EDT CHARTMAKER ([facility]) Name Value Range Interpretation Code Description Data Julia rce(s) Supporting Document(s) CHLORIDE 99 mmol/L CHLORIDE: 99 mmol/L 2019 CHARTMAKER ([facility]) ID Date Data Source [id number] 01/17/2020 12:00:00 AM EDT CHARTMAKER ([facility]) Name Value Range Interpretation Code Description Data Julia rce(s) Supporting Document(s) Potassium 3.6 mmol/L Potassium: 3.6 mmol/L 01/17/2020 CHARTMAKER ([facility]) ID Date Data Source [id number] 01/17/2020 12:00:00 AM EDT CH[facility]MAKER ([facility]) Name Value Range Interpretation Code Description Data Julia rce(s) Supporting Document(s) SODIUM 135 mmol/L SODIUM: 135 mmol/L 020 [facility]MAKER ([facility]) Procedure Social History Code Duration Value Status Description Data Source(s ) Smoking 01/17/2020 12:00:00 AM EDT Smoker, current status unkn own completed Smoker, current status unknown CHARTMAKER ([facility]) Vital Signs ID Date Data Source UNK Name Value Range Interpretation Code Description Data Source(s) Body height 61 [in_i] 61 [in_i] [place] ([facility]) Body height 61 [in_i] 61 [in_i] [place] ([facility]) Body height 61 [in_i] 61 [in_i] [place] ([facility]) Body weight 2384 [oz_av] 2384 [oz_av] [place] ([facility]) Systolic blood pressure 113 mm[Hg] 113 mm[Hg] A [facility] ([facility]) Body mass index (BMI) [Ratio] 28.2 kg/m2 28.2 k g/m2 [place] ([facility]) Body height 61 [in_i] 61 [in_i] [place] ([facility]) Diastolic blood pressure 75 mm[Hg] 75 mm[Hg] [place] ([facility]) Body weight 2384 [oz_av] 2384 [oz_av] [place] ([facility]) Systolic blood pressure 113 mm[Hg] 113 mm[Hg] A [facility] ([facility]) Body mass index (BMI) [Ratio] 28.2 kg/m2 28.2 k g/m2 [place] ([facility]) Body height 61 [in_i] 61 [in_i] [place] ([facility]) Diastolic blood pressure 75 mm[Hg] 75 mm[Hg] [place] ([facility]) Body weight 2384 [oz_av] 2384 [oz_av] [place] ([facility]) Systolic blood pressure 113 mm[Hg] 113 mm[Hg] A [facility] ([facility]) Body mass index (BMI) [Ratio] 28.2 kg/m2 28.2 k g/m2 [place] ([facility]) Body height 61 [in_i] 61 [in_i] [place] ([facility]) Diastolic blood pressure 75 mm[Hg] 75 mm[Hg] [place] ([facility]) Body weight 2448 [oz_av] 2448 [oz_av] [place] ([facility]) Systolic blood pressure 127 mm[Hg] 127 mm[Hg] A [facility] ([facility]) Body mass index (BMI) [Ratio] 28.9 kg/m2 28.9 k g/m2 [place] ([facility]) Body height 61 [in_i] 61 [in_i] [place] ([facility]) Diastolic blood pressure 80 mm[Hg] 80 mm[Hg] [place] ([facility]) Body weight 2448 [oz_av] 2448 [oz_av] [place] ([facility]) Systolic blood pressure 127 mm[Hg] 127 mm[Hg] A THENA ([facility]) Body mass index (BMI) [Ratio] 28.9 kg/m2 28.9 k g/m2 [place] ([facility]) Body height 61 [in_i] 61 [in_i] [place] ([facility]) Diastolic blood pressure 80 mm[Hg] 80 mm[Hg] [place] ([facility]) Body weight 2448 [oz_av] 2448 [oz_av] [place] ([facility]) Systolic blood pressure 127 mm[Hg] 127 mm[Hg] A THENA ([facility]) Body mass index (BMI) [Ratio] 28.9 kg/m2 28.9 k g/m2 [place] ([facility]) Body height 61 [in_i] 61 [in_i] [place] ([facility]) Diastolic blood pressure 80 mm[Hg] 80 mm[Hg] [place] ([facility]) Body weight 2448 [oz_av] 2448 [oz_av] [place] ([facility]) Systolic blood pressure 127 mm[Hg] 127 mm[Hg] A [facility] ([facility]) Body mass index (BMI) [Ratio] 28.9 kg/m2 28.9 k g/m2 [place] ([facility]) Body height 61 [in_i] 61 [in_i] [place] ([facility]) Diastolic blood pressure 80 mm[Hg] 80 mm[Hg] [place] ([facility]) Body weight 2627.2 [oz_av] 2627.2 [oz_av] ATHEN A ([facility]) Systolic blood pressure 108 mm[Hg] 108 mm[Hg] A [facility] ([facility]) Body height 61 [in_i] 61 [in_i] [place] ([facility]) Diastolic blood pressure 71 mm[Hg] 71 mm[Hg] [place] ([facility]) Body weight 2627.2 [oz_av] 2627.2 [oz_av] ATHEN A ([facility]) Systolic blood pressure 108 mm[Hg] 108 mm[Hg] A [facility] ([facility]) Body height 61 [in_i] 61 [in_i] [place] ([facility]) Diastolic blood pressure 71 mm[Hg] 71 mm[Hg] [place] ([facility]) Body weight 2627.2 [oz_av] 2627.2 [oz_av] ATHEN A ([facility]) Systolic blood pressure 108 mm[Hg] 108 mm[Hg] A [facility] ([facility]) Body height 61 [in_i] 61 [in_i] [place] ([facility]) Diastolic blood pressure 71 mm[Hg] 71 mm[Hg] [place] ([facility]) Body weight 2627.2 [oz_av] 2627.2 [oz_av] ATHEN A ([facility]) Systolic blood pressure 108 mm[Hg] 108 mm[Hg] A [facility] ([facility]) Body height 61 [in_i] 61 [in_i] [place] ([facility]) Diastolic blood pressure 71 mm[Hg] 71 mm[Hg] [place] ([facility]) Body weight 74.844 kg 74.844 kg [facility] ([facility], ) Body mass index (BMI) [Ratio] 31.2 kg/m2 31.2 k g/m2 [facility] ([facility]) Body weight 165.00 [lb_av] 165.00 [lb_av] JOEEN T ([facility], ) Body height 61 [in_i] 61 [in_i] DONNA ([facility], ) 5'1" Diastolic blood pressure 68 mm[Hg] 68 mm[Hg] [facility] ([facility]) Systolic blood pressure 128 mm[Hg] 128 mm[Hg] M PRISCILLA ([facility], ) Body weight 2596 [oz_av] 2596 [oz_av] LENNOX ([facility]) Systolic blood pressure 101 mm[Hg] 101 mm[Hg] A [facility] ([facility]) Body height 61 [in_i] 61 [in_i] [place] ([facility]) Diastolic blood pressure 70 mm[Hg] 70 mm[Hg] [facility] ([facility]) Body weight 2596 [oz_av] 2596 [oz_av] [place]X ([facility]) Systolic blood pressure 101 mm[Hg] 101 mm[Hg] A [facility] ([facility]) Body height 61 [in_i] 61 [in_i] [place] ([facility]) Diastolic blood pressure 70 mm[Hg] 70 mm[Hg] [facility] ([facility]) Body weight 2596 [oz_av] 2596 [oz_av] [place]X ([facility]) Systolic blood pressure 101 mm[Hg] 101 mm[Hg] A [facility] ([facility]) Body height 61 [in_i] 61 [in_i] [place] ([facility]) Diastolic blood pressure 70 mm[Hg] 70 mm[Hg] [facility] ([facility]) Body weight 2596 [oz_av] 2596 [oz_av] [place]X ([facility]) Systolic blood pressure 101 mm[Hg] 101 mm[Hg] A [facility] ([facility]) Body height 61 [in_i] 61 [in_i] [place] ([facility]) Diastolic blood pressure 70 mm[Hg] 70 mm[Hg] [place] ([facility]) Body weight 77.112 kg 77.112 kg [facility], ) Body mass index (BMI) [Ratio] 32.1 kg/m2 32.1 k g/m2 [facility] Body weight 170.00 [lb_av] 170.00 [lb_av] MEDEN T ([facility]) Body height 61 [in_i] 61 [in_i] [facility] 5'1" Body weight 81.648 kg 81.648 kg [facility] ([facility]) Body mass index (BMI) [Ratio] 34.0 kg/m2 34.0 k g/m2 [facility] ([facility]) Body weight 180.00 [lb_av] 180.00 [lb_av] MEDEN T ([facility]) Body height 61 [in_i] 61 [in_i] [facility] 5'1" Diastolic blood pressure 64 mm[Hg] 64 mm[Hg] [facility] ([facility]) Systolic blood pressure 118 mm[Hg] 118 mm[Hg] M VIVEKJEANNIE ([facility], ) Body weight 2752 [oz_av] 2752 [oz_av] LENNOX ([facility]) Systolic blood pressure 121 mm[Hg] 121 mm[Hg] A THENA ([facility]) Body height 61 [in_i] 61 [in_i] [place]X ([facility]) Diastolic blood pressure 78 mm[Hg] 78 mm[Hg] [facility] ([facility]) Body weight 2752 [oz_av] 2752 [oz_av] [place] ([facility]) Systolic blood pressure 121 mm[Hg] 121 mm[Hg] A THENA ([facility]) Body height 61 [in_i] 61 [in_i] [place]X ([facility]) Diastolic blood pressure 78 mm[Hg] 78 mm[Hg] [place] ([facility]) Body weight 2752 [oz_av] 2752 [oz_av] [place]X ([facility]) Systolic blood pressure 121 mm[Hg] 121 mm[Hg] A [facility] ([facility]) Body height 61 [in_i] 61 [in_i] [place] ([facility]) Diastolic blood pressure 78 mm[Hg] 78 mm[Hg] [place] ([facility]) Body weight 2752 [oz_av] 2752 [oz_av] [place]X ([facility]) Systolic blood pressure 121 mm[Hg] 121 mm[Hg] A [facility] ([facility]) Body height 61 [in_i] 61 [in_i] [place]X ([facility]) Diastolic blood pressure 78 mm[Hg] 78 mm[Hg] [place] ([facility]) Body weight 3286.08 [oz_av] 3286.08 [oz_av] ATH KIM ([facility]) Systolic blood pressure 131 mm[Hg] 131 mm[Hg] A [facility] ([facility]) Body height 61 [in_i] 61 [in_i] [place]X ([facility]) Diastolic blood pressure 80 mm[Hg] 80 mm[Hg] [place] ([facility]) Body weight 3286.08 [oz_av] 3286.08 [oz_av] ATH KIM ([facility]) Systolic blood pressure 131 mm[Hg] 131 mm[Hg] A [facility] ([facility]) Body height 61 [in_i] 61 [in_i] [place] ([facility]) Diastolic blood pressure 80 mm[Hg] 80 mm[Hg] [place] ([facility]) Body weight 3286.08 [oz_av] 3286.08 [oz_av] ATH KIM ([facility]) Systolic blood pressure 131 mm[Hg] 131 mm[Hg] A [facility] ([facility]) Body height 61 [in_i] 61 [in_i] [place]X ([facility]) Diastolic blood pressure 80 mm[Hg] 80 mm[Hg] [place] ([facility]) Body weight 3286.08 [oz_av] 3286.08 [oz_av] ATH KIM ([facility]) Systolic blood pressure 131 mm[Hg] 131 mm[Hg] A THENA ([facility]) Body height 61 [in_i] 61 [in_i] LENNOX ([facility]) Diastolic blood pressure 80 mm[Hg] 80 mm[Hg] [place]X ([facility]) Inhaled oxygen concentration 21 % 21 % CHARTMAKER ([facility]) Oxygen saturation in Arterial blood by Pulse oximetry 97 % 97 % CHARTMAKER ([facility]) Body mass index (BMI) [Ratio] 35.3564110895644 kg/m2 35.3343963700059 kg/m2 CHARTMAKER ([facility]) Body weight 189 [lb_av] 189 [lb_av] CHARTMAKER ([facility]) Body height 61 [in_i] 61 [in_i] CHARTMAKER ([facility]) Diastolic blood pressure 78 mm[Hg] 78 mm[Hg] CHARTMAKER ([facility]) Systolic blood pressure 128 mm[Hg] 128 mm[Hg] C HARTMAKER ([facility]) Respiratory rate 16 /min 16 /min CHARTMAK ER ([facility]) Heart rate 95 /min 95 /min CHARTMAKER ([facility]) Body temperature 99.2 [degF] 99.2 [degF] DAMEON NUÑEZ ([facility]) ID Date Data Source [id number] 03/26/2020 03:10:00 PM EDT [facility] Name Value Range Interpretation Code Description Data Source(s) Weight Measurement Method [address] [facility] Weight (Calculated Kilograms) 93.[address] [facility] Weight 3358.[address] [facility] Temperature Source [address] [facility] Temperature 99 99 [facility] Respiratory Effort [address] [facility] Respiratory Rate 18 18 [facility] Pulse Assessment Method 4 4 [facility] Pulse Rate [address] [facility] Height (Calculated Centimeters) 154.[address] [facility] Height [address] [facility] Blood Pressure 133/88 133/88 [facility] Body Mass Index (BMI) 38.9 38.9 [facility] Weight Measurement Method [address] [facility] Weight (Calculated Kilograms) 93.[address] [facility] Weight [address] [facility] Temperature Source [address] [facility] Temperature 99 99 [facility] Respiratory Effort [address] [facility] Respiratory Rate 18 18 [facility] Pulse Assessment Method 4 4 [facility] Pulse Rate [address] [facility] Height (Calculated Centimeters) 154.[address] [facility] Height [address] [facility] Blood Pressure 133/88 133/88 [facility] Body Mass Index (BMI) 38.9 38.9 [facility] Weight Measurement Method [address] [facility] Weight (Calculated Kilograms) 93.[address] [facility] Weight [address] [facility] Temperature Source [address] [facility] Temperature 99 99 [facility] Respiratory Effort [address] [facility] Respiratory Rate 18 18 [facility] Pulse Assessment Method 4 4 [facility] Pulse Rate [address] [facility] Height (Calculated Centimeters) 154.[address] [facility] Height [address] [facility] Blood Pressure 133/88 133/88 [facility] Body Mass Index (BMI) 38.9 38.9 [facility] Weight Measurement Method [address] [facility] Weight (Calculated Kilograms) 93.[address] [facility] Weight [address] [facility] Temperature Source [address] [facility] Temperature 98.6 98.6 [facility] Respiratory Effort [address] [facility] Respiratory Rate 20 20 [facility] Pulse Assessment Method 4 4 [facility] Pulse Rate [address] [facility] Height (Calculated Centimeters) 154.[address] [facility] Height [address] [facility] Blood Pressure 97/61 97/61 [facility] Body Mass Index (BMI) 38.9 38.9 [facility] Weight Measurement Method [address] [facility] Weight (Calculated Kilograms) 93.[address] [facility] Weight [address] [facility] Temperature Source [address] [facility] Temperature 98.9 98.9 [facility] Respiratory Effort [address] [facility] Respiratory Rate 20 20 [facility] Pulse Assessment Method 4 4 [facility] Pulse Rate [address] [facility] Height (Calculated Centimeters) 154.[address] [facility] Height [address] [facility] Blood Pressure 88/52 88/52 [facility] Body Mass Index (BMI) 38.9 38.9 [facility] Weight Measurement Method [address] [facility] Weight (Calculated Kilograms) 93.[address] [facility] Weight [address] [facility] Temperature Source [address] [facility] Temperature 98.2 98.2 [facility] Respiratory Rate 16 16 [facility] Pulse Assessment Method 4 4 [facility] Pulse Rate [address] [facility] Height (Calculated Centimeters) 154.[address] [facility] Height [address] [facility] Blood Pressure 104/66 104/66 [facility] Body Mass Index (BMI) 38.9 38.9 [facility] ID Date Data Source [id number] 03/19/2020 12:09:00 PM EDT [facility] spital Name Value Range Interpretation Code Description Data Source(s) Weight Measurement Method [address] [facility] 3360 3360 [facility] Source 1 1 [facility] Temperature 98.8 98.8 [facility] Respiratory Effort 1 1 [facility] Respiratory Rate 16 16 [facility] Pulse Assessment Method 4 4 [facility] Pulse Rate 107 107 [facility] Height 61 61 [facility] Blood Pressure 136/99 136/[address] [facility] Weight Measurement Method [address] [facility] Weight 3360 3360 [facility] Temperature Source 7 7 [facility] Temperature 99.0 99.0 [facility] Respiratory Effort 1 1 [facility] Respiratory Rate 18 18 [facility] Pulse Assessment Method 4 4 [facility] Pulse Rate 105 105 [facility] Height 61 61 [facility] Blood Pressure 138/105 138/[address] [facility] Patient Treatment Plan of Care Planned Activity Planned Date Details Description Data Source (s) zaleplon 5 MG Oral Capsule A THENA ([facility]) venlafaxine 37.5 MG Oral Tablet LENNOX ([facility]) torsemide 20 MG Oral Tablet [facility] ([facility]) Spironolactone 25 MG Oral Tablet [place] ([facility]) Shingrix (PF) 50 mcg/0.5 mL [facility] Lactulose 667 MG/ML Oral Solution L[facility]X ([facility]) Lactulose 667 MG/ML Oral Solution [facility]X ([facility]) Furosemide 40 MG Oral Tablet [place] ([facility]) Furosemide 20 MG Oral Tablet [place] ([facility]) Fluzone Quad 60 mcg (15 mcg x 4)/0.5 mL intramuscular susp. INJECT INTO THE LEFT ARM DIRECTED AT [facility]) [facility]iprofl[facility] 500 [facility] Cephalexin 500 MG Oral Capsule L[place]X ([facility]) zaleplon 5 MG Oral Capsule A THENA [facility]) [facility]ironolactone 25 [facility] Lactulose 667 MG/ML Oral Solution LENNOX [facility]) Furosemide 20 MG Oral Tablet [place]X ([facility]) Fluzone Quad 60 mcg (15 mcg x 4)/0.5 mL intramuscular susp. INJECT INTO THE LEFT ARM DIRECTED AT [facility]) Cephalexin 500 [facility] zaleplon 5 MG Oral Capsule A THENA [facility]) Spironolactone 25 MG Oral Tablet [place]X ([facility]) Lactulose 667 MG/ML [facility] Fluzone Quad 60 mcg (15 mcg x 4)/0.5 mL intramuscular susp. INJECT INTO THE LEFT ARM DIRECTED AT [facility] ([facility]) Cephalexin 500 MG Oral Capsule L[place]NOX ([facility]) zaleplon 5 MG Oral Capsule A KO[place] ([facility]) Spironolactone 25 MG Oral Tablet LENNOX ([facility]) Lactulose 667 MG/ML Oral Solution L[place]NOX ([facility]) Furosemide 20 MG Oral Tablet LENNOX ([facility])
[2020-11-14 22:47] LABS: BASO # 0.1 10^3/uL (0.0-0.2); BASO % 0.6 % (0.0-1.0); EOS # 0.1 10^3/uL (0.0-0.5); EOS % 1.2 % (0.0-3.0); HEMATOCRIT 27.4 % (36.0-47.0); HEMOGLOBIN 9.7 g/dl (12.0-15.5); LYMPH # 0.9 10^3/uL (1.5-5.0); LYMPH % 9.6 % (24.0-44.0); MEAN CORPUSCULAR HEMOGLOBIN 31.5 pg (27.0-33.0); MEAN CORPUSCULAR HGB CONC 35.4 g/dl (32.0-36.5); MONO # 1.5 10^3/uL (0.0-0.8); MONO % 17.2 % (0.0-5.0); NEUTROPHILS # 6.2 10^3/uL (1.5-8.5); NEUTROPHILS % 70.3 % (36.0-66.0); PLATELET COUNT, AUTOMATED 133 10^3/uL (150-450); RED BLOOD COUNT 3.08 10^6/uL (4.00-5.40)
[2020-11-14 23:01] LABS: INR 1.64; PROTHROMBIN TIME 19.8 SECONDS (12.5-14.3)
[2020-11-14 23:06] LABS: WHITE BLOOD COUNT 8.9 10^3/uL (4.0-10.0)
[2020-11-14 23:12] LABS: ALBUMIN 3.5 GM/DL (3.2-5.2); ALT/SGPT 29 U/L (12-78); BILIRUBIN,DIRECT 1.1 MG/DL (0.0-0.2); BILIRUBIN,TOTAL 2.4 MG/DL (0.2-1.0); BLOOD UREA NITROGEN 53 MG/DL (7-18); CALCIUM LEVEL 8.7 MG/DL (8.5-10.1); CARBON DIOXIDE LEVEL 19 MEQ/L (21-32); CHLORIDE LEVEL 96 MEQ/L (98-107); CREATININE FOR GFR 1.91 MG/DL (0.55-1.30); ETHYL ALCOHOL (ETHANOL) < 0.003 % (0.000-0.010); GLOMERULAR FILTRATION RATE 28.7 (>51); GLUCOSE, FASTING 85 MG/DL (70-100); LIPASE 1222 U/L (73-393); POTASSIUM SERUM 5.1 MEQ/L (3.5-5.1); SODIUM LEVEL 124 MEQ/L (136-145); TOTAL PROTEIN 6.4 GM/DL (6.4-8.2)
[2020-11-14 23:45] VITALS: BP 94/60
--- NOTE | 2020-11-15 07:43 | ECGEPIP ---
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
[2020-11-15] MEDS ORDERED: GABA-282 PO (18:12)
== END 2020-11-15 00:18 | disposition home or self-care (01) ==
LOC: M ED 21:29
DX: N18.9 Chronic kidney disease, unspecified (principal); K70.30 Alcoholic cirrhosis of liver without ascites; Z79.899 Other long term (current) drug therapy; F17.210 Nicotine dependence, cigarettes, uncomplicated

== ENCOUNTER 2020-11-15 15:51 | Inpatient (IN) | payer OTHER ==
[~2020-11-15] VITALS: Ht 154.9 cm; Wt 73.2 kg
[~2020-11-15 15:51] MED LIST changes: +CIPR500T3 PO
--- OUTSIDE RECORDS SUMMARY | 2020-11-15 16:04 | CCD ---
Author Author [facility] Organization [facility] Address Unknown Phone Unavailable Care Team Providers Care Mailing Clerk Name Role Phone STEVENS, W KAILA PA [...] Unavailable STEVENS, W KAILA PA Unavailable Unavailable TSEVENS, W KAILA PA Unavailable Unavailable STEVENS, W [...] Hathaway PA Unavailable Unavailable Cougler, S Kiel DIECAST MACHINE OPERATOR Unavailable Unavailable Cougler, S Kiel DIECAST MACHINE OPERATOR Unavailable Unavailable Cougler, S Kiel DIECAST MACHINE OPERATOR Unavailable Unavailable Cougler, S Kiel DIECAST MACHINE OPERATOR Unavailable Unavailable Cougler, S Kiel DIECAST MACHINE OPERATOR Unavailable Unavailable Cougler, S Kiel DIECAST MACHINE OPERATOR Unavailable Unavailable Cougler, S Kiel DIECAST MACHINE OPERATOR Unavailable Unavailable Cougler, S Kiel DIECAST MACHINE OPERATOR Unavailable Unavailable Cougler, S Kiel DIECAST MACHINE OPERATOR Unavailable Unavailable Cougler, S Kiel DIECAST MACHINE OPERATOR Unavailable Unavailable Cougler, S Kiel DIECAST MACHINE OPERATOR Unavailable Unavailable Cougler, S Kiel DIECAST MACHINE OPERATOR Unavailable Unavailable Cougler, S Kiel DIECAST MACHINE OPERATOR Unavailable Unavailable Cougler, S Kiel DIECAST MACHINE OPERATOR Unavailable Unavailable Cougler, S Kiel DIECAST MACHINE OPERATOR Unavailable Unavailable Cougler, S Kiel DIECAST MACHINE OPERATOR Unavailable Unavailable Cougler, S Kiel DIECAST MACHINE OPERATOR Unavailable Unavailable Cougler, S Kiel DIECAST MACHINE OPERATOR Unavailable Unavailable Cougler, S Kiel DIECAST MACHINE OPERATOR Unavailable Unavailable Cougler, S Kiel DIECAST MACHINE OPERATOR Unavailable Unavailable Cougler, S Kiel DIECAST MACHINE OPERATOR Unavailable Unavailable Cougler, S Kiel DIECAST MACHINE OPERATOR Unavailable Unavailable Cougler, S Kiel DIECAST MACHINE OPERATOR Unavailable Unavailable Cougler, S Kiel DIECAST MACHINE OPERATOR Unavailable Unavailable Cougler, S Kiel DIECAST MACHINE OPERATOR Unavailable Unavailable Cougler, S Kiel DIECAST MACHINE OPERATOR Unavailable Unavailable Cougler, S Kiel DIECAST MACHINE OPERATOR Unavailable Unavailable Cougler, S Kiel DIECAST MACHINE OPERATOR Unavailable Unavailable Cougler, S Kiel DIECAST MACHINE OPERATOR Unavailable Unavailable Cougler, S Kiel DIECAST MACHINE OPERATOR Unavailable Unavailable Cougler, S Kiel DIECAST MACHINE OPERATOR Unavailable Unavailable Cougler, S Kiel DIECAST MACHINE OPERATOR Unavailable Unavailable Cougler, S Kiel DIECAST MACHINE OPERATOR Unavailable Unavailable Cougler, S Kiel DIECAST MACHINE OPERATOR Unavailable Unavailable Cougler, S Kiel DIECAST MACHINE OPERATOR Unavailable Unavailable Cougler, S Kiel DIECAST MACHINE OPERATOR Unavailable Unavailable Cougler, S Kiel DIECAST MACHINE OPERATOR Unavailable Unavailable Cougler, S Kiel DIECAST MACHINE OPERATOR Unavailable Unavailable Cougler, S Kiel DIECAST MACHINE OPERATOR Unavailable Unavailable SONIYA CHENG MD Unavailable Unavailable [...] Unavailable BERRIOS, JACKIE JOE RPA-C Unavailable Unavailable BERROIS, JACKIE JOE RPA-C Unavailable Unavailable BERRIOS, JACKIE [...] JACKIE JOE RPA-C Unavailable Unavailable BERRIOS, JACKIE JEO RPA-C Unavailable Unavailable BERRIOS, JACKIE JOE RPA-C [...] JACKIE JOE RPA-C Unavailable Unavailable BERRIOS, JACKIE JEO RPA-C Unavailable Unavailable BERRIOS, JACKIE JOE RPA-C [...] Cristino Esquivel MD Unavailable Unavailab le Moussallem, Cristion Esquivel MD Unavailable Unavailab le Moussallem, Cristino [...] Cristino Esquivel MD Unavailable Unavailab le Moussallem, rCistino Esquivel MD Unavailable Unavailab le Moussallem, Cristino Esquivel MD Unavailable Unavailab le Moussallem, Cristino Esquivel MD Unavailable Unavailab le Moussallem, Cristino Esquivel MD Unavailable Unavailab le Moussallem, Cristino Esquivel MD Unavailable Unavailab le Moussallem, Cristino Esquivel MD Unavailable Unavailab Cristino Rosenthal MD Unavailable Unavailab le PEDNLETON, BRUCE PA Unavailable Unavailable PENDLETON, BRUCE PA [...] Unavailable Unavailable Shakila Tavarez MD Unavailable Unavailable [facility] RFROST BERRIOS DENISSE DIAZ Unavailable Unavailable Re-disclosure [...] is protected by Article 27-F of the [facility] Public Health law. If you continue you may have access to information: Regarding HIV / AIDS; Provided by facilities licensed or operated by the [facility] Office of Mental Health; or Provided by the [facility] Office for People With Developmental Disabilities. If such information is present, then the following [facility] mandated warning applies: This information [...] law may result in a fine or snf sentence or both. A general authorization for the release of medical or other information is NOT sufficient authorization for further disc losure. Allergies and Adverse Reactions Type Description Substance Reaction Status Data Source(s ) Allergy to substance Moderate to Severe [facility] All[facility] to substance Moderate to Severe [facility] Allergy to substance Moderate to Severe [facility] Allergy to substance Allergy to substance [facility] Allergy [facility] substance Allergy to substance ramelteon [facility] ([facility]) Allergy to substance Allergy to substance ramelteon [place] ([facility]) Drug allergy RAMELTEON RAM[facility]ON diarrhea U [facility] Allergy to substance Allergy to substance ramelteon [place] ([facility]) Drug allergy Drug allergy No Known Allergies [facility] Drug allergy Drug allergy No Known Allergies [facility] Encounters Encounter Providers Location Date Indications Data Source(s ) Mag Scordo, PA-C: [address], [place] [address], Ph. Attender: aMg SALCEDO [facility] Medical 10/30/2020 12:00:00 AM EST [place] ([facility]) Joe Berrios RPA-C: [address], [place] [address], Ph. Attender: JOE BERRIOS RPA-C [facility] Medical 10/09/2020 12:00:00 AM EST [place] ([facility]) Joe Berrios RPA-C: [address], [place] [address], Ph. Attender: JOE BERRIOS RPA-C [facility] Medical 10/09/2020 12:00:00 AM EST [place] ([facility]) Joe Berrios RPA-C: [address], [place] [address], Ph. Attender: JOE BERROIS RPA-C [facility] Medical 09/10/2020 12:00:00 AM EST [place] ([facility]) Joe Berrios RPA-C: [address], [place] [address], Ph. Attender: JOE BERRIOS RPA-C [facility] Medical 09/10/2020 12:00:00 AM EST [place] ([facility]) Joe Berrios RPA-C: [address], [place] [address], Ph. Attender: JOE BERRIOS RPA-C [facility] Medical 09/10/2020 12:00:00 AM EST [place] ([facility]) Joe Berrios, RPA-C: [address], [place] [address], Ph. Attender: JOE BERRIOS RPA-C [facility] Medical 08/14/2020 12:00:00 AM EST [place] ([facility]) Joe Berrios RPA-C: [address], [place] [address], Ph. Attender: JOE BERRIOS RPA-C [facility] Medical 08/14/2020 12:00:00 AM EST [place] ([facility]) Joe Berrios RPA-C: [address], [place] [address], Ph. Attender: JOE BERRIOS RPA-C [facility] Medical 08/14/2020 12:00:00 AM EST [place] ([facility]) Joe Berrios RPA-C: [address], [place] [address], Ph. Attender: JOE BERRIOS RPA-C [facility] Medical 08/14/2020 12:00:00 AM EST [place] ([facility]) Outpatient Attender: JOE BERRIOS RPA-C ALL 07/19/2020 12:00:32 AM EDT [facility] Outpatient Attender: JOSLYN MORRISON ALL 02/2020 05:29:02 PM EDT [facility] Outpatient Attender: JOSLYN MORRISON ALL 06/13 08:57:04 AM EDT [facility] Outpatient Attender: JOE BERRIOS RPA-C ALL 07/03/2020 08:57:02 AM EDT [facility] Outpatient Attender: JOSLYN MORRISON ALL 06/12 09:22:01 AM EDT [facility] Outpatient Attender: JOE BERRIOS RPA-C ALL 06/21/2020 12:00:44 AM EDT [facility] Outpatient Attender: OJE BERRIOS RPA-C ALL 06/11/2020 10:38:01 AM EDT [facility] Outpatient Attender: JOSLYN BERRIOS DENISSE JOE MORRISON ALL 05/12 12:39:01 PM EDT [facility] Outpatient Attender: JOE BERRIOS RPA-C ALL 05/11/2020 12:00:10 AM EDT [facility] Outpatient Attender: JOE BERRIOS RPA-C ALL 05/10/2020 02:36:02 PM EDT [facility] Outpatient Attender: JOSLYN BERRIOS DENISSE JOE MORRISON ALL 04/11 08:31:02 AM EDT [facility] Outpatient Attender: ZION Orellana/Naeem/Kerwin harris/Reinfabián 04/17/2020 11:40:00 AM EDT [facility] Outpatient Attender: JOSLYN MORRISON ALL 10/2019 04:12:01 PM EDT [facility] Outpatient Attender: JOE BERRIOS RPA-C ALL 04/11/2020 04:11:59 PM EDT [facility] Outpatient Attender: JOE BERRIOS RPA-C ALL 04/09/2020 10:16:02 AM EDT [facility] Outpatient Attender: JOSLYN BERRIOS DENISSE JOE MORRISON ALL 03/13 05:23:01 PM EDT [facility] Outpatient Attender: JOE BERRIOS RPA-C ALL 04/06/2020 05:22:59 PM EDT [facility] Outpatient Attender: JOSLYN BERRIOS DENISSE JOE MORRISON ALL 03/13 08:59:00 AM EDT [facility] Outpatient Attender: JOE BERRIOS RPA-C ALL 03/27/2020 02:02:02 PM EDT [facility] Inpatient Attender: Soniya Spangler DAttender: SONIYA CHENG MDAttender: Hector Mcgee MDAdmitter: SONIYA CHENG MDConsultant: Bruce Pendleton-Trim PAConsultant: BRUCE SALCEDO CPSCAORT-MSU3 03/17/2020 09:06:00 PM E DT - 03/22/2020 03:09:00 PM EDT ALCOHOLISM, ASCITES [facility] ALCOHOLISM, ASCITES Patient discharged. Preadmit Attender: Gwyn Tavarez MD CPSCAORT-ED 03/17/2020 08:47:00 PM EDT [facility] Emergency Attender: Kiel Marcos DIECAST MACHINE OPERATOR ED-ED 03/17 04:07:00 PM EDT - 03/17/2020 07:34:00 PM EDT SOB, FLUID IN ABD, SPIDER BITE RT FOOT [facility] SOB, FLUID IN ABD, SPIDER BITE RT FOOT Patient discharged. Preadmit Attender: Alvin Garber MD [id number] 03/17/2020 12:00:00 AM EDT F10.20 [facility] F10.20 Outpatient 01/17/2020 10:54:32 AM EDT [facility] ([facility]) OutpatientOFFICE/OUTPATIENT VISIT, NEW 01/17/2020 Attender: KAILA SALCEDO 01/17/2020 09:49:17 AM EDT [facility] ([facility]) Immunizations Vaccine Date Status Description Data Source(s) New in 2012. IIV4 08/17/2020 12:00:00 AM EST completed 08/17/20 [facility]) New in 2012. IIV4 08/17/2020 12:00:00 AM EST completed 08/17/20 [facility]) New in 2012. IIV4 08/17/2020 12:00:00 AM EST completed 08/17/20 [facility]) Medications Medication Brand Name Start Date Product Form Dose Route Admi nistrative Instructions Pharmacy Instructions Status Indications Reaction Description Data Source(s) gabapentin 300 MG Oral Capsule Gabapentin 05/30/2020 12:00:00 AM EDT ORAL active [facility] Ciprofloxacin 500 MG Oral Tablet Ciprofloxacin HCL 05/30/2020 12:00 :00 AM EDT ORAL active [facility] ([facility], ) Ensure Active High Protein 05/24/2020 12:00:00 AM EDT active [facility] ([facility], ) pantoprazole 40 MG Delayed Release Oral Tablet Pantoprazole Sodium 04/24/2020 12:00:00 AM EDT active M EDENT ([facility], ) zaleplon 5 MG Oral Capsule Zaleplon 04/20/2020 12:00:00 AM EDT ORAL completed [facility] ([facility], ) Famotidine 40 MG Oral Tablet Famotidine 04/17/2020 12:00:00 AM EDT completed [facility] ([facility], ) ramelteon 8 MG Oral Tablet Ramelteon 04/17/2020 12:00:00 AM EDT completed [facility] ([facility], ) Spironolactone 100 MG Oral Tablet spironolactone 100 m g tablet spironolactone 100 mg tablet 01/17/2020 12:00:00 AM EDT 1 comp leted , Take 1 tablet orally Every day 01/17/2020 [facility] ([facility]) Furosemide 40 MG Oral Tablet [Lasix] Lasix 40 mg tablet Lasi x 40 mg tablet 01/17/2020 12:00:00 AM EDT 1 completed , Take 1 tablet orally Every day 01/17/2020 [facility] ([facility]) 100 mg 01/17/2020 12:00:00 AM [...] completed lactulose 667 MG/ML Oral Solution [facility] ([facility]) Cephalexin 500 MG Oral Capsule cephalexi n 500 mg capsule TAKE ONE CAPSULE BY MOUTH THREE TIMES A DAY cephalexin 500 mg capsule TAKE ONE CAPSU LE BY MOUTH THREE TIMES A DAY completed ceph alexin 500 MG Oral Capsule [place] ([facility]) torsemide 20 MG Oral Tablet torsemide 20 mg tablet torsemide 20 mg ta blet completed torsemide 20 MG Oral Tablet [place]) venlafaxine 37.5 MG Oral Tablet venlafaxine 37.5 mg ta blet venlafaxine 37.5 mg tablet completed venlafaxine 37. 5 MG Oral Tablet [place] ([facility]) zaleplon 5 MG Oral Capsule zaleplon 5 mg capsule TAKE ONE CAPSULE BY MOUTH AT BEDTIME MAXIMUM DAILY DOSE 1 CAPSULE zaleplon 5 mg capsule TAKE ONE CAPSULE B Y MOUTH AT BEDTIME MAXIMUM DAILY DOSE 1 CAPSULE completed zaleplon 5 MG Oral Capsule [place] ([facility]) Shingrix (PF) 50 mcg/0.5 mL intramuscular suspension, kit [id number] completed 0.[address] virus glycoprotein E, recombinant 0.1 MG/ML Injection [Shingrix] [place] ([facility]) Ciprofloxacin 500 MG Oral Tablet ciprofloxacin 500 mg tablet ciprofloxacin 500 mg tablet completed ciprofloxaci n 500 MG Oral Tablet [place] ([facility]) Spironolactone 25 MG Oral Tablet spirono lactone 25 mg tablet TAKE ONE TABLET BY MOUTH EVERY DAY spironolactone 25 mg tablet TAKE ONE TABLET BY MOUTH E VERY DAY completed spironolactone 25 MG Oral Tablet [place] ([facility]) Furosemide 40 MG Oral Tablet furosemide 40 mg tablet TAKE 1.5 tablet QAM and 1.5 tablet QPM furosemide 40 mg tablet TAKE 1.5 tablet QAM and 1.5 tablet QPM completed furosemide 40 MG Oral Tablet [place] ([facility]) Spironolactone 25 MG Oral Tablet spirono lactone 25 mg tablet TAKE ONE TABLET BY MOUTH EVERY DAY spironolactone 25 mg tablet TAKE ONE TABLET BY MOUTH E VERY DAY completed spironolactone 25 MG Oral Tablet [place] ([facility]) Lactulose 667 MG/ML Oral Solution lactul ose 20 gram/30 mL oral solution TAKE 30ML BY MOUTH TWO TIMES A DAY lactulose 20 gram/30 mL oral solution TA KE 30ML BY MOUTH TWO TIMES A DAY completed lactulose 667 MG/ML Oral Solution [place] ([facility]) Cephalexin 500 MG Oral Capsule cephalexi n 500 mg capsule TAKE ONE CAPSULE BY MOUTH THREE TIMES A DAY cephalexin 500 mg capsule TAKE ONE CAPSU LE BY MOUTH THREE TIMES A DAY completed ceph alexin 500 MG Oral Capsule [place] ([facility]) Fluzone Quad 60 mcg (15 mcg x 4)/0.5 mL intramuscular susp. INJECT INTO THE LEFT ARM DIRECTED [id number] [facility] ed Fluzone Quad 60 mcg (15 mcg x 4)/0.5 mL intramuscular susp. [place] ([facility]) Furosemide 20 MG Oral Tablet furosemide 20 mg tablet TAKE ONE TABLET BY MOUTH EVERY DAY furosemide 20 mg tablet TAKE ONE TABLET BY MOUTH EVERY DAY completed furosemide 20 MG Oral Tablet [place] ([facility]) Lactulose 667 MG/ML Oral Solution lactul ose 20 gram/30 mL oral solution TAKE 30ML BY MOUTH TWO TIMES A DAY lactulose 20 gram/30 mL oral solution TA KE 30ML BY MOUTH TWO TIMES A DAY completed lactulose 667 MG/ML Oral Solution [place] ([facility]) Cephalexin 500 MG Oral Capsule cephalexi n 500 mg capsule TAKE ONE CAPSULE BY MOUTH THREE TIMES A DAY cephalexin 500 mg capsule TAKE ONE CAPSU LE BY MOUTH THREE TIMES A DAY completed ceph alexin 500 MG Oral Capsule [place] ([facility]) Spironolactone 25 MG Oral Tablet spirono lactone 25 mg tablet TAKE ONE TABLET BY MOUTH EVERY DAY spironolactone 25 mg tablet TAKE ONE TABLET BY MOUTH E VERY DAY completed spironolactone 25 MG Oral Tablet [place] ([facility]) zaleplon 5 MG Oral Capsule zaleplon 5 mg capsule TAKE ONE CAPSULE BY MOUTH AT BEDTIME MAXIMUM DAILY DOSE 1 CAPSULE zaleplon 5 mg capsule TAKE ONE CAPSULE B Y MOUTH AT BEDTIME MAXIMUM DAILY DOSE 1 CAPSULE completed zaleplon 5 MG Oral Capsule [place] ([facility]) Lactulose 667 MG/ML Oral Solution lactul ose 20 gram/30 mL oral solution TAKE 30ML BY MOUTH TWO TIMES A DAY lactulose 20 gram/30 mL oral solution TA KE 30ML BY MOUTH TWO TIMES A DAY completed lactulose 667 MG/ML Oral Solution [place] ([facility]) zaleplon 5 MG Oral Capsule zaleplon 5 mg capsule TAKE ONE CAPSULE BY MOUTH AT BEDTIME MAXIMUM DAILY DOSE 1 CAPSULE zaleplon 5 mg capsule TAKE ONE CAPSULE B Y MOUTH AT BEDTIME MAXIMUM DAILY DOSE 1 CAPSULE completed zaleplon 5 MG Oral Capsule [place] ([facility]) Furosemide 20 MG Oral Tablet furosemide 20 mg tablet TAKE ONE TABLET BY MOUTH EVERY DAY furosemide 20 mg tablet TAKE ONE TABLET BY MOUTH EVERY DAY completed furosemide 20 MG Oral Tablet [place] ([facility]) Furosemide 20 MG Oral Tablet furosemide 20 mg tablet TAKE ONE TABLET BY MOUTH EVERY DAY furosemide 20 mg tablet TAKE ONE TABLET BY MOUTH EVERY DAY completed furosemide 20 MG Oral Tablet [place] ([facility]) Lactulose 667 MG/ML Oral Solution lactul ose 20 gram/30 mL oral solution TAKE 30ML BY MOUTH TWO TIMES A DAY lactulose 20 gram/30 mL oral solution TA KE 30ML BY MOUTH TWO TIMES A DAY completed lactulose 667 MG/ML Oral Solution [place] ([facility]) Fluzone Quad 60 mcg (15 mcg x 4)/0.5 mL intramuscular susp. INJECT INTO THE LEFT ARM DIRECTED [id number] [facility] Fluzone Quad 60 mcg (15 mcg x 4)/0.5 mL intramuscular susp. [place] ([facility]) Spironolactone 25 MG Oral Tablet spirono lactone 25 mg tablet TAKE ONE TABLET BY MOUTH EVERY DAY spironolactone 25 mg tablet TAKE ONE TABLET BY MOUTH E VERY DAY completed spironolactone 25 MG Oral Tablet [place] ([facility]) Furosemide 20 MG Oral Tablet furosemide 20 mg tablet TAKE ONE TABLET BY MOUTH EVERY DAY furosemide 20 mg tablet TAKE ONE TABLET BY MOUTH EVERY DAY completed furosemide 20 MG Oral Tablet [place] ([facility]) Fluzone Quad 60 mcg (15 mcg x 4)/0.5 mL intramuscular susp. INJECT INTO THE LEFT ARM DIRECTED [id number] [facility] Fluzone Quad 60 mcg (15 mcg x 4)/0.5 mL intramuscular susp. [place] ([facility]) zaleplon 5 MG Oral Capsule zaleplon 5 mg capsule TAKE ONE CAPSULE BY MOUTH AT BEDTIME MAXIMUM DAILY DOSE 1 CAPSULE zaleplon 5 mg capsule TAKE ONE CAPSULE B Y MOUTH AT BEDTIME MAXIMUM DAILY DOSE 1 CAPSULE completed zaleplon 5 MG Oral Capsule [place] ([facility]) Insurance Providers Payer name Policy type / Coverage type Policy ID Covered democrat ID Covered democrat's relationship to bañuelos Policy Bañuelos Plan Information ROSEMARIE [id number] SP [id number] ROSEMARIE [id number] SP [id number] EMEDNY [id number] SP [id number] RO[place]ARIE [place] [id number] S [id number] EMEDNY [id number] SP [id number] ROSEMARIE [id number] SP [id number] MEDICAID [id number] S [id number] SELF PAY S MEDICAID [id number] S [id number] MEDICAID [id number] SP [id number] SELF PAY ONLY NONE SP NONE ID IDENTIFICATION [id number] Other In surance [id number] Problems, Conditions, and Diagnoses Code Display Name Description Problem Type Effective Dates Data Source(s) 801234651 Major depressive disorder Major Depressive Disorder Pr oblem 10/09/2020 12:00:00 AM EST [place] ([facility]) 256676009 Major depressive disorder Major Depressive Disorder Pr oblem 10/09/2020 12:00:00 AM EST [place] ([facility]) 801353546 Compression fracture of lumbar spine Com pression Fracture of Lumbar Spine Problem 09/10/2020 12:00:00 AM EST [place] ([facility]) 419906766 Osteopenia Osteopenia Problem 09/10/2020 12:00:00 AM ES T [place] ([facility]) 055532253 Compression fracture of lumbar spine Com pression Fracture of Lumbar Spine Problem 09/10/2020 12:00:00 AM EST [place] ([facility]) 047421715 Osteopenia Osteopenia Problem 09/10/2020 12:00:00 AM ES T [place] ([facility]) 812771945 Compression fracture of lumbar spine Com pression Fracture of Lumbar Spine Problem 09/10/2020 12:00:00 AM EST [place] ([facility]) 145160542 Osteopenia Osteopenia Problem 09/10/2020 12:00:00 AM JULIA Reyes [place] ([facility]) V70.0 Encounter for general adult medical exam ination with abnormal findings Encounter for general adult medical examination with abnormal findings 06/11/2020 10:37:39 AM EDT [facility] [id number] Procedure by method Procedure by Method Problem 0 06/11/2020 12:00:00 AM EDT - 08/14/2020 12:00:00 AM [place] ([facility]) [id number] Procedure by method Procedure by Method Problem 0 06/11/2020 12:00:00 AM EDT - 08/14/2020 12:00:00 AM EST [place] ([facility]) 639820563 Procedure by method Procedure by Method Problem 0 06/11/2020 12:00:00 AM EDT - 08/14/2020 12:00:00 AM EST [place] ([facility]) [id number] Procedure by method Procedure by Method Problem 0 06/11/2020 12:00:00 AM EDT - 08/14/2020 12:00:00 AM EST [place] ([facility]) V05.9 Encounter for immunization Encounter for immunization 05/10/2020 02:34:40 PM EDT [facility] [id number] Influenza vaccine needed Influenza Vaccine Needed Pro blem 05/10/2020 12:00:00 AM EDT - 10/30/2020 12:00:00 AM EST [place] ([facility]) [id number] Influenza vaccine needed Influenza Vaccine Needed Pro blem 05/10/2020 12:00:00 AM EDT [place] ([facility]) [id number] Influenza vaccine needed Influenza Vaccine Needed Pro blem 05/10/2020 12:00:00 AM EDT [place] ([facility]) [id number] Influenza vaccine needed Influenza Vaccine Needed Pro blem 05/10/2020 12:00:00 AM EDT [place] ([facility]) 456833859 Insomnia, unspecified Insomnia, unspecified 04/09/2020 10:15:55 AM EDT [facility] 408920856 Insomnia Insomnia Problem 04/09/2020 12:00:00 AM ED T [place] ([facility]) 086629765 Insomnia Insomnia Problem 04/09/2020 12:00:00 AM ED T [place] ([facility]) 037748933 Insomnia Insomnia Problem 04/09/2020 12:00:00 AM ED T [place] ([facility]) 898235219 Insomnia Insomnia Problem 04/09/2020 12:00:00 AM ED T [place] ([facility]) 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, in remission Alcohol abuse, in remissio n 03/27/2020 02:00:55 PM EDT [facility] 782.3 Edema of lower extremity Edema of lower extremity 03/27/2020 02:00:55 PM EDT [facility] K70.31 Alcoholic cirrhosis of liver with ascite s Alcoholic cirrhosis of liver with ascites 03/27/2020 02:00:55 PM EDT [facility] 305.1 Tobacco user Tobacco user 03/27/2020 02:00:55 P M EDT [facility] [id number] Ascites due to alcoholic cirrhosis Ascit es Due to Alcoholic Cirrhosis Problem 03/27/2020 12:00:00 AM EDT [place] ([facility]) 278436451 Localized edema Localized Edema Problem 03/27/2020 12:0 0:00 AM EDT [place] ([facility]) [id number] Nicotine dependence Nicotine Dependence Problem 0 03/27/2020 12:00:00 AM EDT [place] ([facility]) [id number] Nondependent alcohol abuse in remission Nondependent Alcohol Abuse in Remission Problem 03/27/2020 12:00:00 AM EDT [place] ([facility]) [id number] Ascites due to alcoholic cirrhosis Ascit es Due to Alcoholic Cirrhosis Problem 03/27/2020 12:00:00 AM EDT [place] ([facility]) [id number] Localized edema Localized Edema Problem 03/27/2020 12:0 0:00 AM EDT [place] ([facility]) [id number] Nicotine dependence Nicotine Dependence Problem 0 03/27/2020 12:00:00 AM EDT [place] ([facility]) [id number] Nondependent alcohol abuse in remission Nondependent Alcohol Abuse in Remission Problem 03/27/2020 12:00:00 AM EDT [place] ([facility]) [id number] Ascites due to alcoholic cirrhosis Ascit es Due to Alcoholic Cirrhosis Problem 03/27/2020 12:00:00 AM EDT [place] ([facility]) [id number] Localized edema Localized Edema Problem 03/27/2020 12:0 0:00 AM EDT [place] ([facility]) [id number] Nicotine dependence Nicotine Dependence Problem 0 03/27/2020 12:00:00 AM EDT [place] ([facility]) [id number] Nondependent alcohol abuse in remission Nondependent Alcohol Abuse in Remission Problem 03/27/2020 12:00:00 AM EDT [place] ([facility]) [id number] Ascites due to alcoholic cirrhosis Ascit es Due to Alcoholic Cirrhosis Problem 03/27/2020 12:00:00 AM EDT [place] ([facility]) [id number] Localized edema Localized Edema Problem 03/27/2020 12:0 0:00 AM EDT [place] ([facility]) 08006674 Nicotine dependence Nicotine Dependence Problem 0 03/27/2020 12:00:00 AM EDT [place] ([facility]) [id number] Nondependent alcohol abuse in remission Nondependent Alcohol Abuse in Remission Problem 03/27/2020 12:00:00 AM EDT [place] ([facility]) R10.9 Unspecified abdominal pain Unspecified abdominal pain (R10.9) 01/17/2020 [id number] 01/17/2020 09:49:17 AM EDT [place] ([facility]) K70.11 Alcoholic hepatitis with ascites Alcohol ic hepatitis with ascites (K70.11) 01/17/2020 [id number] 01/17/2020 09:49:17 AM EDT [place] ([facility]) Y92.[address] or not applicable UNSPECIFIED PLACE OR NOT APPLICABLE Diagnosis 03/17/2020 09:06:00 PM EDT [facility] W57.XXXA Bitten or stung by nonvenomo us insect and other nonvenomous arthropods, initial encounter BIT/STUNG BY NONVENOM INSECT & OTH NONVENOM ARTHROPODS , INIT Diagnosis 03/17/2020 09:06:00 PM EDT [facility] K72.00 Acute and subacute hepatic failure witho ut coma ACUTE AND SUBACUTE HEPATIC FAILURE WITHOUT COMA Diagnosis 03/17/2020 09:06:00 PM EDT [facility] 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 Diagnosis 03/17/2020 09:06:00 PM [facility] F10.232 Alcohol dependence with withdrawal with perceptual disturbance ALCOHOL DEPENDENCE W WITHDRAWAL WITH PERCEPTUAL DISTURBANCE Diagnosis 09:06:00 PM [facility] K76.6 Portal hypertension PORTAL HYPERTENSION Diagnosis 0 03/17/2020 09:06:00 PM [facility] F17.210 Nicotine dependence, cigarettes, uncompl icated NICOTINE DEPENDENCE, CIGARETTES, UNCOMPLICATED Diagnosis 03/17/2020 09:06:00 PM [facility] S90.861A Insect bite (nonvenomous), right foot, i nitial encounter INSECT BITE (NONVENOMOUS), RIGHT FOOT, INITIAL ENCOUNTER Diagnosis 0 09:06:00 PM [facility] F31.9 Bipolar disorder, unspecified BIPOLAR DISORDER, UNSPEC IFIED Diagnosis 03/17/2020 09:06:00 PM [facility] K70.31 Alcoholic cirrhosis of liver with ascite s ALCOHOLIC CIRRHOSIS OF LIVER WITH ASCITES Diagnosis 03/17/2020 09:06:00 PM [facility] Surgeries/Procedures Procedure Description Date Indications Data Source(s) Drainage of Peritoneal Cavity, Percutaneous Approach, Diagnostic DRAINAGE OF PERITONEAL CAVITY, PERCUTANEOUS APPROACH, DIAGN 03/18/2020 12:00:00 AM [facility] XRAY ABDOMEN 2 VIEW (FLAT and UPRIGHT) 01/17/202001/16 12:00:00 AM EDT [facility] ([facility]) Collected Date 01/17/2020 1024 01/17/2020 01/17/2020 12:00 :00 AM EDT [facility] ([facility]) CBCDIFF 01/17/2020 01/17/2020 12:00:00 AM EDT [place] ([facility]) COMPREHENSIVE METABOLIC PANEL 01/17/2020 12:00:00 AM E DT [place] ([facility]) Results ID Date Data Source [id number] 10/25/2020 01:19:00 PM EST [place] ([facility]) Name Value Range Interpretation Code Description Data Julia rce(s) Supporting Document(s) magnesium level 2.1 mg/dL 1.8-2.4 normal Magnesium Level [place] ([facility]) ID Date Data Source [id number] 10/25/2020 01:19:00 PM EST [place] ([facility]) Name Value Range Interpretation Code Description Data Julia rce(s) Supporting Document(s) phosphorus level 3.4 mg/dL 2.5-4.9 normal Phosphorus Level AT [facility] ([facility]) ID Date Data Source [id number] 10/25/2020 01:19:00 PM EST [place] ([facility]) Name Value Range Interpretation Code Description Data Julia rce(s) Supporting Document(s) glucose, fasting 95 mg/dL 70-100 normal Glucose, Fasting AT [facility] ([facility]) blood urea nitrogen 34 mg/dL 7-18 Above high normal Blood Ure a Nitrogen [place] ([facility]) creatinine for GFR 1.49 mg/dL 0.55-1.30 Above high normal Creatinine for GFR [place] ([facility]) glomerular filtration rate >51 Below low normal Deidra merular Filtration Rate [place] ([facility]) potassium serum 4.7 mEq/L 3.5-5.1 normal Potassium Serum [place] ([facility]) sodium level 127 mEq/L 136-145 Below low normal Sodium Level [place] ([facility]) carbon dioxide level 24 mEq/L 21-32 normal Carbon Dioxide Level [place] ([facility]) chloride level 95 mEq/L 98-107 Below low normal Chloride Level [place] ([facility]) anion gap 8 mEq/L 8-16 normal Anion Gap [place] ([facility]) calcium level 8.7 mg/dL 8.5-10.1 normal Calcium Level [facility]) ID Date Data Source [id number] 10/25/2020 11:00:00 AM EST [place] ([facility]) Name Value Range Interpretation Code Description Data Julia rce(s) Supporting Document(s) albumin 25% transfused product: albumin 25% count: 2 Albumin 25% [place] ([facility]) ID Date Data Source [id number] 10/18/2020 11:24:00 AM EST [place] ([facility]) Name Value Range Interpretation Code Description Data Julia rce(s) Supporting Document(s) magnesium level 2.0 mg/dL 1.8-2.4 normal Magnesium Level [place] ([facility]) ID Date Data Source [id number] 10/18/2020 11:24:00 AM EST [place] ([facility]) Name Value Range Interpretation Code Description Data Juila rce(s) Supporting Document(s) phosphorus level 3.6 mg/dL 2.5-4.9 normal Phosphorus Level AT [facility] ([facility]) ID Date Data Source [id number] 10/18/2020 11:24:00 AM EST [place] ([facility]) Name Value Range Interpretation Code Description Data Julia rce(s) Supporting Document(s) glucose, fasting 101 mg/dL 70-100 Above high normal Glucose, Fas ting [place] ([facility]) blood urea nitrogen 28 mg/dL 7-18 Above high normal Blood Ure a Nitrogen [place] ([facility]) creatinine for GFR 1.68 mg/dL 0.55-1.30 Above high normal Creatinine for GFR [place] ([facility]) glomerular filtration rate >51 Below low normal Deidra merular Filtration Rate [place] ([facility]) sodium level 134 mEq/L 136-145 Below low normal Sodium Level [place] ([facility]) potassium serum 3.9 mEq/L 3.5-5.1 normal Potassium Serum [place] ([facility]) chloride level 103 mEq/L 98-107 normal Chloride Level [place] ([facility]) carbon dioxide level 23 mEq/L 21-32 normal Carbon Dioxide Level [place] ([facility]) anion gap 8 mEq/L 8-16 normal Anion Gap [place] ([facility]) calcium level 8.2 mg/dL 8.5-10.1 Below low normal Calcium Level AT [facility] ([facility]) ID Date Data Source [id number] 10/18/2020 08:26:00 AM EST [place] ([facility]) Name Value Range Interpretation Code Description Data Julia rce(s) Supporting Document(s) albumin 25% transfused product: albumin 25% count: 4 Albumin 25% [place] ([facility]) ID Date Data Source [id number] 10/03/2020 10:51:00 AM EST [place] ([facility]) Name Value Range Interpretation Code Description Data Julia rce(s) Supporting Document(s) magnesium level 2.1 mg/dL 1.8-2.4 normal [facility] ID Date Data Source [id number] 10/03/2020 10:51:00 AM EST [place] ([facility]) Name Value Range Interpretation Code Description Data Julia rce(s) Supporting Document(s) phosphorus level 3.9 mg/dL 2.5-4.9 normal Phosphorus Level AT [facility] ([facility]) ID Date Data Source [id number] 10/03/2020 10:51:00 AM EST [place] ([facility]) Name Value Range Interpretation Code Description Data Julia rce(s) Supporting Document(s) glucose, fasting 106 mg/dL 70-100 Above high normal Glucose, Fas ting [place] ([facility]) blood urea nitrogen 30 mg/dL 7-18 Above high normal Blood Ure a Nitrogen [place] ([facility]) creatinine for GFR 1.64 mg/dL 0.55-1.30 Above high normal Creatinine for GFR [place] ([facility]) glomerular filtration rate >51 Below low normal Deidra merular Filtration Rate [place] ([facility]) sodium level 128 mEq/L 136-145 Below low normal Sodium Level [place] ([facility]) potassium serum 4.4 mEq/L 3.5-5.1 normal Potassium Serum [place] ([facility]) chloride level 98 mEq/L 98-107 normal Chloride Level [place] ([facility]) carbon dioxide level 23 mEq/L 21-32 normal Carbon Dioxide Level [place] ([facility]) anion gap 7 mEq/L 8-16 Below low normal Anion Gap [place] ( [facility]) calcium level 8.6 mg/dL 8.5-10.1 normal Calcium Level [place] ( [facility]) ID Date Data Source [id number] 10/03/2020 10:51:00 AM EST [place] ([facility]) Name Value Range Interpretation Code Description Data Julia rce(s) Supporting Document(s) magnesium level 2.1 mg/dL 1.8-2.4 normal [facility] ID Date Data Source [id number] 10/03/2020 10:51:00 AM EST [place] ([facility]) Name Value Range Interpretation Code Description Data Julia rce(s) Supporting Document(s) phosphorus level 3.9 mg/dL 2.5-4.9 normal Phosphorus Level AT [facility]) ID Date Data Source [id number] 10/03/2020 10:51:00 AM EST [place] ([facility]) Name Value Range Interpretation Code Description Data Julia rce(s) Supporting Document(s) blood urea nitrogen 30 mg/dL 7-18 Above high normal Blood Ure a Nitrogen [place] ([facility]) glucose, fasting 106 mg/dL 70-100 Above high normal Glucose, Fas ting [place] ([facility]) creatinine for GFR 1.64 mg/dL 0.55-1.30 Above high normal Creatinine for GFR [place] ([facility]) sodium level 128 mEq/L 136-145 Below low normal Sodium Level [place] ([facility]) glomerular filtration rate >51 Below low normal Deidra merular Filtration Rate [place] ([facility]) chloride level 98 mEq/L 98-107 normal Chloride Level [place] ([facility]) potassium serum 4.4 mEq/L 3.5-5.1 normal Potassium Serum [place] ([facility]) carbon dioxide level 23 mEq/L 21-32 normal Carbon Dioxide Level [place] ([facility]) anion gap 7 mEq/L 8-16 Below low normal Anion Gap [place] ( [facility]) calcium level 8.6 mg/dL 8.5-10.1 normal Calcium Level [place] ( [facility]) ID Date Data Source [id number] 10/03/2020 10:36:00 AM EST [place] ([facility]) Name Value Range Interpretation Code Description Data Julia rce(s) Supporting Document(s) albumin 25% transfused product: albumin 25% count: 4 Albumin 25% [place] ([facility]) ID Date Data Source [id number] 10/03/2020 10:36:00 AM EST [place] ([facility]) Name Value Range Interpretation Code Description Data Julia rce(s) Supporting Document(s) albumin 25% transfused product: albumin 25% count: 4 Albumin 25% [place] ([facility]) ID Date Data Source [id number] 09/27/2020 09:30:00 AM EST [place] ([facility]) Name Value Range Interpretation Code Description Data Julia rce(s) Supporting Document(s) albumin 25% transfused product: albumin 25% count: 4 Albumin 25% [place] ([facility]) ID Date Data Source [id number] 09/27/2020 09:30:00 AM EST [place] ([facility]) Name Value Range Interpretation Code Description Data Julia rce(s) Supporting Document(s) albumin 25% transfused product: albumin 25% count: 4 Albumin 25% [place] ([facility]) ID Date Data Source [id number] 09/20/2020 08:30:00 AM EST [place] ([facility]) Name Value Range Interpretation Code Description Data Julia rce(s) Supporting Document(s) albumin 25% transfused product: albumin 25% count: 4 Albumin 25% [place] ([facility]) ID Date Data Source [id number] 09/20/2020 08:30:00 AM EST [place] ([facility]) Name Value Range Interpretation Code Description Data Julia rce(s) Supporting Document(s) albumin 25% transfused product: albumin 25% count: 4 Albumin 25% [place] ([facility]) ID Date Data Source [id number] 09/13/2020 01:21:00 PM EST [place] ([facility]) Name Value Range Interpretation Code Description Data Julia rce(s) Supporting Document(s) albumin, body fluid 0.7 g/dL not established normal Albumin, Julien dy Fluid [place] ([facility]) source, body fluid albumin ascites normal Source, B jamil Fluid Albumin [place] ([facility]) ID Date Data Source [id number] 09/13/2020 01:21:00 PM EST [place] ([facility]) Name Value Range Interpretation Code Description Data Julia rce(s) Supporting Document(s) total protein, body fluid 1.4 g/dL not established normal Total Protein, Body Fluid [place] ([facility]) source, body fluid tot protein ascites normal Sourc e, Body Fluid Tot Protein [place] ([facility]) ID Date Data Source [id number] 09/13/2020 01:21:00 PM EST [place] ([facility]) Name Value Range Interpretation Code Description Data Julia rce(s) Supporting Document(s) source, body fluid ascites normal Source, Body Flui d [place] ([facility]) ascites fL color yellow colorless normal Ascites fL Color AT [place] ([facility]) appearance, body fluid hazy clear normal Appearance, B jamil Fluid [place] ([facility]) WBC body fluid 108 /uL 0-10 Above high normal WBC Body Fluid [place] ([facility]) bf mononuclear cell % 94.5 % 0-0 Above high normal Bf [place] nuclear Cell % [place] ([facility]) RBC body fluid < 2 <2 normal RBC Body Fluid [place] ([facility]) bf polymorphonuclear cell % 5.5 % 0-0 Above high no rmal Bf Polymorphonuclear Cell % [place] ([facility]) ID Date Data Source [id number] 09/13/2020 01:21:00 PM EST [place] ([facility]) Name Value Range Interpretation Code Description Data Julia rce(s) Supporting Document(s) source, body fluid albumin ascites normal Source, B jamil Fluid Albumin [place] ([facility]) albumin, body fluid 0.7 g/dL not established normal Albumin, Julien dy Fluid [place] ([facility]) ID Date Data Source [id number] 09/13/2020 01:21:00 PM EST [place] ([facility]) Name Value Range Interpretation Code Description Data Julia rce(s) Supporting Document(s) source, body fluid tot protein ascites normal Sourc e, Body Fluid Tot Protein [place] ([facility]) total protein, body fluid 1.4 g/dL not established normal Total Protein, Body Fluid [place] ([facility]) ID Date Data Source [id number] 09/13/2020 01:21:00 PM EST [place] ([facility]) Name Value Range Interpretation Code Description Data Julia rce(s) Supporting Document(s) source, body fluid ascites normal Source, Body Flui d [place] ([facility]) ascites fL color yellow colorless normal Ascites fL Color AT [place] ([facility]) appearance, body fluid hazy clear normal Appearance, B jamil Fluid [place] ([facility]) WBC body fluid 108 /uL 0-10 Above high normal WBC Body Fluid [place] ([facility]) RBC body fluid < 2 <2 normal RBC Body Fluid [place] ([facility]) bf mononuclear cell % 94.5 % 0-0 Above high normal Bf [place] nuclear Cell % [place] ([facility]) bf polymorphonuclear cell % 5.5 % 0-0 Above high no rmal Bf Polymorphonuclear Cell % [place] ([facility]) ID Date Data Source [id number] 09/13/2020 08:48:00 AM EST [place] ([facility]) Name Value Range Interpretation Code Description Data Julia rce(s) Supporting Document(s) albumin 25% transfused product: albumin 25% count: 4 Albumin 25% [place] ([facility]) ID Date Data Source [id number] 09/13/2020 08:48:00 AM EST [place] ([facility]) Name Value Range Interpretation Code Description Data Julia rce(s) Supporting Document(s) albumin 25% transfused product: albumin 25% count: 4 Albumin 25% [place] ([facility]) ID Date Data Source [id number] 09/05/2020 11:04:00 AM EST [place] ([facility]) Name Value Range Interpretation Code Description Data Julia rce(s) Supporting Document(s) glucose, fasting 109 mg/dL 70-100 Above high normal Glucose, Fas ting [place] ([facility]) blood urea nitrogen 27 mg/dL 7-18 Above high normal Blood Ure a Nitrogen [place] ([facility]) creatinine for GFR 1.52 mg/dL 0.55-1.30 Above high normal Creatinine for GFR [place] ([facility]) sodium level 130 mEq/L 136-145 Below low normal Sodium Level [facility] [place] ([facility]) glomerular filtration rate >51 Below low normal Deidra merular Filtration Rate [place] ([facility]) potassium serum 3.9 mEq/L 3.5-5.1 normal Potassium Serum [facility] [place] ([facility]) chloride level 93 mEq/L 98-107 Below low normal Chloride Level [place] ([facility]) anion gap 8 mEq/L 8-16 normal Anion Gap [place] ([facility]) carbon dioxide level 29 mEq/L 21-32 normal Carbon Dioxide Level [place] ([facility]) calcium level 9.4 mg/dL 8.5-10.1 normal Calcium Level [place] ( [facility]) ID Date Data Source [id number] 09/05/2020 11:04:00 AM EST [place] ([facility]) Name Value Range Interpretation Code Description Data Julia rce(s) Supporting Document(s) AST/SGOT 50 U/L 7-37 Above high normal AST/SGOT [place] ([facility]) ALT/SGPT 26 U/L 12-78 normal ALT/SGPT [place] ([facility]) alkaline phosphatase 184 U/L 45-117 Above high normal Alkaline Phosphatase [place] ([facility]) bilirubin,total 4.3 mg/dL 0.2-1.0 Above high normal Bilirubin,tot al [place] ([facility]) bilirubin,direct 1.7 mg/dL 0.0-0.2 Above high normal Bilirubin,di rect [place] ([facility]) total protein 6.8 gm/dL 6.4-8.2 normal Total Protein [place] ( [facility]) albumin 3.5 gm/dL 3.2-5.2 normal Albumin [place] ([facility]) albumin/globulin ratio 1.2-2.2 Below low normal Albumin /globulin Ratio [place] ([facility]) ID Date Data Source [id number] 09/05/2020 11:04:00 AM EST [place] ([facility]) Name Value Range Interpretation Code Description Data Julia rce(s) Supporting Document(s) sodium,random urine 12 mEq/L normal Sodium,random Ur ine [place] ([facility]) ID Date Data Source [id number] 09/05/2020 11:04:00 AM EST [place] ([facility]) Name Value Range Interpretation Code Description Data Julia rce(s) Supporting Document(s) creatinine,random urine 142.0 mg/dL normal Creatinine, random Urine [place] ([facility]) ID Date Data Source [id number] 09/05/2020 11:04:00 AM EST [place] ([facility]) Name Value Range Interpretation Code Description Data Julia rce(s) Supporting Document(s) prothrombin time 20.0 seconds 12.5-14.3 Above high normal Prothrombi n Time [place] ([facility]) INR normal Inr [place] ([facility]) partial thromboplastin time 40.3 seconds 24.2-38.5 Above high no rmal Partial Thromboplastin Time [place] ([facility]) ID Date Data Source [id number] 09/05/2020 11:04:00 AM EST [place] ([facility]) Name Value Range Interpretation Code Description Data Julia rce(s) Supporting Document(s) white blood count 7.3 10 4.0-10.0 normal White Blood Count [place] ([facility]) red blood count 3.39 10 4.00-5.40 Below low normal Red Blood Coun t [place] ([facility]) hemoglobin 10.8 g/dL 12.0-15.5 Below low normal Hemoglobin [place] ( [facility]) mean corpuscular volume 90.6 fL 80.0-96.0 normal Mean Corpusc ular Volume [place] ([facility]) hematocrit 30.7 % 36.0-47.0 Below low normal Hematocrit [place] ( [facility]) mean corpuscular hemoglobin 31.9 pg 27.0-33.0 normal Mean Corpuscular Hemoglobin [place] ([facility]) mean corpuscular HGB conc 35.2 g/dL 32.0-36.5 normal Mean Corpu scular HGB Conc [place] ([facility]) red cell distribution width 18.1 % 11.5-14.5 Above high no rmal Red Cell Distribution Width [place] ([facility]) platelet count, automated 141 10 150-450 Below low denice l Platelet Count, Automated [place] ([facility]) neutrophils % 70.7 % 36.0-66.0 Above high normal Neutrophils % [place] ([facility]) lymph % 12.1 % 24.0-44.0 Below low normal Lymph % [place] ( [facility]) mono % 14.9 % 0.0-5.0 Above high normal [place] % [place] ([facility]) baso % 0.6 % 0.0-1.0 normal Baso % [place] ([facility]) eos % 1.1 % 0.0-3.0 normal Eos % [place] ([facility]) immature granulocyte % 0.6 % 0-3.0 normal Immature Gran ulocyte % [place] ([facility]) nucleated red blood cell % 0.0 % 0-0 normal Nucleated Red Blood Cell % [place] ([facility]) lymph # 0.9 10 1.5-5.0 Below low normal Lymph # [place] ( [facility]) neutrophils # 5.1 10 1.5-8.5 normal Neutrophils # [place] ( [facility]) mono # 1.1 10 0.0-0.8 Above high normal [place] # [place] ([facility]) baso # 0.0 10 0.0-0.2 normal Baso # [place] ([facility]) eos # 0.1 10 0.0-0.5 normal Eos # [place] ([facility]) ID Date Data Source [id number] 09/05/2020 11:04:00 AM EST [place] ([facility]) Name Value Range Interpretation Code Description Data Julia rce(s) Supporting Document(s) glucose, fasting 109 mg/dL 70-100 Above high normal Glucose, Fas ting [place] ([facility]) creatinine for GFR 1.52 mg/dL 0.55-1.30 Above high normal Creatinine for GFR [place] ([facility]) blood urea nitrogen 27 mg/dL 7-18 Above high normal Blood Ure a Nitrogen [place] ([facility]) sodium level 130 mEq/L 136-145 Below low normal Sodium Level [place] ([facility]) glomerular filtration rate >51 Below low normal Deidra merular Filtration Rate [place] ([facility]) potassium serum 3.9 mEq/L 3.5-5.1 normal Potassium Serum [place] ([facility]) chloride level 93 mEq/L 98-107 Below low normal Chloride Level [place] ([facility]) carbon dioxide level 29 mEq/L 21-32 normal Carbon Dioxide Level [place] ([facility]) anion gap 8 mEq/L 8-16 normal Anion Gap [place] ([facility]) calcium level 9.4 mg/dL 8.5-10.1 normal Calcium Level [place] ( [facility]) ID Date Data Source [id number] 09/05/2020 11:04:00 AM EST [place] ([facility]) Name Value Range Interpretation Code Description Data Julia rce(s) Supporting Document(s) ALT/SGPT 26 U/L 12-78 normal ALT/SGPT [place] ([facility]) AST/SGOT 50 U/L 7-37 Above high normal AST/SGOT [place] ([facility]) bilirubin,total 4.3 mg/dL 0.2-1.0 Above high normal Bilirubin,tot al [place] ([facility]) alkaline phosphatase 184 U/L 45-117 Above high normal Alkaline Phosphatase [place] ([facility]) bilirubin,direct 1.7 mg/dL 0.0-0.2 Above high normal Bilirubin,di rect [place] ([facility]) total protein 6.8 gm/dL 6.4-8.2 normal Total Protein [place] ( [facility]) albumin/globulin ratio 1.2-2.2 Below low normal Albumin /globulin Ratio [place] ([facility]) albumin 3.5 gm/dL 3.2-5.2 normal Albumin [place] ([facility]) ID Date Data Source [id number] 09/05/2020 11:04:00 AM EST [place] ([facility]) Name Value Range Interpretation Code Description Data Julia rce(s) Supporting Document(s) sodium,random urine 12 mEq/L normal Sodium,random Ur ine [place] ([facility]) ID Date Data Source [id number] 09/05/2020 11:04:00 AM EST [place] ([facility]) Name Value Range Interpretation Code Description Data Julia rce(s) Supporting Document(s) creatinine,random urine 142.0 mg/dL normal Creatinine, random Urine [place] ([facility]) ID Date Data Source [id number] 09/05/2020 11:04:00 AM EST [place] ([facility]) Name Value Range Interpretation Code Description Data Julia rce(s) Supporting Document(s) prothrombin time 20.0 seconds 12.5-14.3 Above high normal Prothrombi n Time [place] ([facility]) INR normal Inr [place] ([facility]) partial thromboplastin time 40.3 seconds 24.2-38.5 Above high no rmal Partial Thromboplastin Time [place] ([facility]) ID Date Data Source [id number] 09/05/2020 11:04:00 AM EST [place] ([facility]) Name Value Range Interpretation Code Description Data Julia rce(s) Supporting Document(s) white blood count 7.3 10 4.0-10.0 normal White Blood Count [place] ([facility]) red blood count 3.39 10 4.00-5.40 Below low normal Red Blood Coun t [place] ([facility]) hematocrit 30.7 % 36.0-47.0 Below low normal Hematocrit [place] ( [facility]) hemoglobin 10.8 g/dL 12.0-15.5 Below low normal Hemoglobin [place] ( [facility]) mean corpuscular hemoglobin 31.9 pg 27.0-33.0 normal Mean Corpuscular Hemoglobin [place] ([facility]) mean corpuscular volume 90.6 fL 80.0-96.0 normal Mean Corpusc ular Volume [place] ([facility]) red cell distribution width 18.1 % 11.5-14.5 Above high no rmal Red Cell Distribution Width [place] ([facility]) mean corpuscular HGB conc 35.2 g/dL 32.0-36.5 normal Mean Corpu scular HGB Conc [place] ([facility]) platelet count, automated 141 10 150-450 Below low denice l Platelet Count, Automated [place] ([facility]) neutrophils % 70.7 % 36.0-66.0 Above high normal Neutrophils % [place] ([facility]) lymph % 12.1 % 24.0-44.0 Below low normal Lymph % [place] ( [facility]) mono % 14.9 % 0.0-5.0 Above high normal [place] % [place] ([facility]) baso % 0.6 % 0.0-1.0 normal Baso % [place] ([facility]) eos % 1.1 % 0.0-3.0 normal Eos % [place] ([facility]) immature granulocyte % 0.6 % 0-3.0 normal Immature Gran ulocyte % [place] ([facility]) neutrophils # 5.1 10 1.5-8.5 normal Neutrophils # [place] ( [facility]) nucleated red blood cell % 0.0 % 0-0 normal Nucleated Red Blood Cell % [place] ([facility]) lymph # 0.9 10 1.5-5.0 Below low normal Lymph # [place] ( [facility]) mono # 1.1 10 0.0-0.8 Above high normal [place] # [place] ([facility]) baso # 0.0 10 0.0-0.2 normal Baso # [place] ([facility]) eos # 0.1 10 0.0-0.5 normal Eos # [place] ([facility]) ID Date Data Source [id number] 09/05/2020 11:04:00 AM EST [place] ([facility]) Name Value Range Interpretation Code Description Data Julia rce(s) Supporting Document(s) blood urea nitrogen 27 mg/dL 7-18 Above high normal Blood Ure a Nitrogen [place] ([facility]) glucose, fasting 109 mg/dL 70-100 Above high normal Glucose, Fas ting [place] ([facility]) glomerular filtration rate >51 Below low normal Deidra merular Filtration Rate [place] ([facility]) creatinine for GFR 1.52 mg/dL 0.55-1.30 Above high normal Creatinine for GFR [place] ([facility]) sodium level 130 mEq/L 136-145 Below low normal Sodium Level [place] ([facility]) potassium serum 3.9 mEq/L 3.5-5.1 normal Potassium Serum [place] ([facility]) chloride level 93 mEq/L 98-107 Below low normal Chloride Level [place] ([facility]) carbon dioxide level 29 mEq/L 21-32 normal Carbon Dioxide Level [place] ([facility]) anion gap 8 mEq/L 8-16 normal Anion Gap [place] ([facility]) calcium level 9.4 mg/dL 8.5-10.1 normal Calcium Level [place] ( [facility]) ID Date Data Source [id number] 09/05/2020 11:04:00 AM EST [place] ([facility]) Name Value Range Interpretation Code Description Data Julia rce(s) Supporting Document(s) AST/SGOT 50 U/L 7-37 Above high normal AST/SGOT [place] ([facility]) ALT/SGPT 26 U/L 12-78 normal ALT/SGPT [place] ([facility]) bilirubin,total 4.3 mg/dL 0.2-1.0 Above high normal Bilirubin,tot al [place] ([facility]) alkaline phosphatase 184 U/L 45-117 Above high normal Alkaline Phosphatase [place] ([facility]) bilirubin,direct 1.7 mg/dL 0.0-0.2 Above high normal Bilirubin,di rect [place] ([facility]) total protein 6.8 gm/dL 6.4-8.2 normal Total Protein [place] ( [facility]) albumin 3.5 gm/dL 3.2-5.2 normal Albumin [place] ([facility]) albumin/globulin ratio 1.2-2.2 Below low normal Albumin /globulin Ratio [place] ([facility]) ID Date Data Source [id number] 09/05/2020 11:04:00 AM EST [place] ([facility]) Name Value Range Interpretation Code Description Data Julia rce(s) Supporting Document(s) sodium,random urine 12 mEq/L normal Sodium,random Ur ine [place] ([facility]) ID Date Data Source [id number] 09/05/2020 11:04:00 AM EST [place] ([facility]) Name Value Range Interpretation Code Description Data Julia rce(s) Supporting Document(s) creatinine,random urine 142.0 mg/dL normal Creatinine, random Urine [place] ([facility]) ID Date Data Source [id number] 09/05/2020 11:04:00 AM EST [place] ([facility]) Name Value Range Interpretation Code Description Data Julia rce(s) Supporting Document(s) prothrombin time 20.0 seconds 12.5-14.3 Above high normal Prothrombi n Time [place] ([facility]) INR normal Inr [place] ([facility]) partial thromboplastin time 40.3 seconds 24.2-38.5 Above high no rmal Partial Thromboplastin Time [place] ([facility]) ID Date Data Source [id number] 09/05/2020 11:04:00 AM EST [place] ([facility]) Name Value Range Interpretation Code Description Data Julia rce(s) Supporting Document(s) white blood count 7.3 10 4.0-10.0 normal White Blood Count [place] ([facility]) red blood count 3.39 10 4.00-5.40 Below low normal Red Blood Coun t [place] ([facility]) hemoglobin 10.8 g/dL 12.0-15.5 Below low normal Hemoglobin [place] ( [facility]) mean corpuscular volume 90.6 fL 80.0-96.0 normal Mean Corpusc ular Volume [place] ([facility]) hematocrit 30.7 % 36.0-47.0 Below low normal Hematocrit [place] ( [facility]) mean corpuscular hemoglobin 31.9 pg 27.0-33.0 normal Mean Corpuscular Hemoglobin [place] ([facility]) mean corpuscular HGB conc 35.2 g/dL 32.0-36.5 normal Mean Corpu scular HGB Conc [place] ([facility]) red cell distribution width 18.1 % 11.5-14.5 Above high no rmal Red Cell Distribution Width [place] ([facility]) platelet count, automated 141 10 150-450 Below low [place] l Platelet Count, Automated [place] ([facility]) neutrophils % 70.7 % 36.0-66.0 Above high normal Neutrophils % [place] ([facility]) lymph % 12.1 % 24.0-44.0 Below low normal Lymph % [place] ( [facility]) mono % 14.9 % 0.0-5.0 Above high normal [place] % [place] ([facility]) eos % 1.1 % 0.0-3.0 normal Eos % [place] ([facility]) baso % 0.6 % 0.0-1.0 normal Baso % [place] ([facility]) immature granulocyte % 0.6 % 0-3.0 normal Immature Gran ulocyte % [place] ([facility]) nucleated red blood cell % 0.0 % 0-0 normal Nucleated Red Blood Cell % [place] ([facility]) neutrophils # 5.1 10 1.5-8.5 normal Neutrophils # [place] ( [facility]) lymph # 0.9 10 1.5-5.0 Below low normal Lymph # [place] ( [facility]) mono # 1.1 10 0.0-0.8 Above high normal [place] # [place] ([facility]) eos # 0.1 10 0.0-0.5 normal Eos # [place] ([facility]) baso # 0.0 10 0.0-0.2 normal Baso # [place] ([facility]) ID Date Data Source [id number] 09/05/2020 08:12:00 AM EST [place] ([facility]) Name Value Range Interpretation Code Description Data Julia rce(s) Supporting Document(s) albumin 25% transfused product: albumin 25% count: 4 Albumin 25% [place] ([facility]) ID Date Data Source [id number] 09/05/2020 08:12:00 AM EST [place] ([facility]) Name Value Range Interpretation Code Description Data Julia rce(s) Supporting Document(s) albumin 25% transfused product: albumin 25% count: 4 Albumin 25% [place] ([facility]) ID Date Data Source [id number] 09/05/2020 08:12:00 AM EST [place] ([facility]) Name Value Range Interpretation Code Description Data Julia rce(s) Supporting Document(s) albumin 25% transfused product: albumin 25% count: 4 Albumin 25% [place] ([facility]) ID Date Data Source [id number] 08/30/2020 12:20:00 PM EST [place] ([facility]) Name Value Range Interpretation Code Description Data Julia rce(s) Supporting Document(s) albumin, body fluid 0.8 g/dL not established normal Albumin, Julien dy Fluid [place] ([facility]) source, body fluid albumin ascites normal Source, B jamil Fluid Albumin [place] ([facility]) ID Date Data Source [id number] 08/30/2020 12:20:00 PM EST [place] ([facility]) Name Value Range Interpretation Code Description Data Julia rce(s) Supporting Document(s) total protein, body fluid 1.4 g/dL not established normal Total Protein, Body Fluid [place] ([facility]) source, body fluid tot protein ascites normal Sourc e, Body Fluid Tot Protein [place] ([facility]) ID Date Data Source [id number] 08/30/2020 12:20:00 PM EST [place] ([facility]) Name Value Range Interpretation Code Description Data Julia rce(s) Supporting Document(s) source, body fluid ascites normal Source, Body Flui d [place] ([facility]) ascites fL color yellow colorless normal Ascites fL Color [place] ([facility]) appearance, body fluid hazy clear normal Appearance, B jamil Fluid [place] ([facility]) WBC body fluid 98 /uL 0-10 Above high normal WBC Body Fluid [place] ([facility]) RBC body fluid < 2 <2 normal RBC Body Fluid [place] ([facility]) bf mononuclear cell % 96.9 % 0-0 Above high normal Bf [place] nuclear Cell % [place] ([facility]) bf polymorphonuclear cell % 3.1 % 0-0 Above high no rmal Bf Polymorphonuclear Cell % [place] ([facility]) ID Date Data Source [id number] 08/30/2020 12:20:00 PM EST [place] ([facility]) Name Value Range Interpretation Code Description Data Julia rce(s) Supporting Document(s) source, body fluid albumin ascites normal Source, B jamil Fluid Albumin [place] ([facility]) albumin, body fluid 0.8 g/dL not established normal Albumin, Julien dy Fluid [place] ([facility]) ID Date Data Source [id number] 08/30/2020 12:20:00 PM EST [place] ([facility]) Name Value Range Interpretation Code Description Data Julia rce(s) Supporting Document(s) total protein, body fluid 1.4 g/dL not established normal Total Protein, Body Fluid [place] ([facility]) source, body fluid tot protein ascites normal Sourc e, Body Fluid Tot Protein [place] ([facility]) ID Date Data Source [id number] 08/30/2020 12:20:00 PM EST [place] ([facility]) Name Value Range Interpretation Code Description Data Julia rce(s) Supporting Document(s) source, body fluid ascites normal Source, Body Flui d [place] ([facility]) ascites fL color yellow colorless normal Ascites fL Color [place] ([facility]) WBC body fluid 98 /uL 0-10 Above high normal WBC Body Fluid [place] ([facility]) appearance, body fluid hazy clear normal Appearance, B jamil Fluid [place] ([facility]) bf mononuclear cell % 96.9 % 0-0 Above high normal Bf [place] nuclear Cell % [place] ([facility]) RBC body fluid < 2 <2 normal RBC Body Fluid [place] ([facility]) bf polymorphonuclear cell % 3.1 % 0-0 Above high no rmal Bf Polymorphonuclear Cell % [place] ([facility]) ID Date Data Source [id number] 08/30/2020 12:20:00 PM EST [place] ([facility]) Name Value Range Interpretation Code Description Data Julia rce(s) Supporting Document(s) albumin, body fluid 0.8 g/dL not established normal Albumin, Julien dy Fluid [place] ([facility]) source, body fluid albumin ascites normal Source, B jamil Fluid Albumin [place] ([facility]) ID Date Data Source [id number] 08/30/2020 12:20:00 PM EST [place] ([facility]) Name Value Range Interpretation Code Description Data Julia rce(s) Supporting Document(s) total protein, body fluid 1.4 g/dL not established normal Total Protein, Body Fluid [place] ([facility]) source, body fluid tot protein ascites normal Sourc e, Body Fluid Tot Protein [place] ([facility]) ID Date Data Source [id number] 08/30/2020 12:20:00 PM EST [place] ([facility]) Name Value Range Interpretation Code Description Data Julia rce(s) Supporting Document(s) source, body fluid ascites normal Source, Body Flui d [place] ([facility]) ascites fL color yellow colorless normal Ascites fL Color [place] ([facility]) WBC body fluid 98 /uL 0-10 Above high normal WBC Body Fluid [place] ([facility]) appearance, body fluid hazy clear normal Appearance, B jamil Fluid [place] ([facility]) RBC body fluid < 2 <2 normal RBC Body Fluid [place] ([facility]) bf mononuclear cell % 96.9 % 0-0 Above high normal Bf [place] nuclear Cell % [place] ([facility]) bf polymorphonuclear cell % 3.1 % 0-0 Above high no rmal Bf Polymorphonuclear Cell % [place] ([facility]) ID Date Data Source [id number] 08/30/2020 09:07:00 AM EST [place] ([facility]) Name Value Range Interpretation Code Description Data Julia rce(s) Supporting Document(s) albumin 25% transfused product: albumin 25% count: 4 Albumin 25% [place] ([facility]) ID Date Data Source [id number] 08/30/2020 09:07:00 AM EST [place] ([facility]) Name Value Range Interpretation Code Description Data Julia rce(s) Supporting Document(s) albumin 25% transfused product: albumin 25% count: 4 Albumin 25% [place] ([facility]) ID Date Data Source [id number] 08/30/2020 09:07:00 AM EST [place] ([facility]) Name Value Range Interpretation Code Description Data Julia rce(s) Supporting Document(s) albumin 25% transfused product: albumin 25% count: 4 Albumin 25% [place] ([facility]) ID Date Data Source [id number] 08/23/2020 01:53:00 PM EST [place] ([facility]) Name Value Range Interpretation Code Description Data Julia rce(s) Supporting Document(s) albumin, body fluid 0.9 g/dL not established normal Albumin, Julien dy Fluid [place] ([facility]) source, body fluid albumin ascites normal Source, B jamil Fluid Albumin [place] ([facility]) ID Date Data Source [id number] 08/23/2020 01:53:00 PM EST [place] ([facility]) Name Value Range Interpretation Code Description Data Julia rce(s) Supporting Document(s) total protein, body fluid 1.4 g/dL not established normal Total Protein, Body Fluid [place] ([facility]) source, body fluid tot protein ascites normal Sourc e, Body Fluid Tot Protein [place] ([facility]) ID Date Data Source [id number] 08/23/2020 01:53:00 PM EST [place] ([facility]) Name Value Range Interpretation Code Description Data Julia rce(s) Supporting Document(s) source, body fluid ascites normal Source, Body Flui d [place] ([facility]) ascites fL color yellow colorless normal Ascites fL Color [place] ([facility]) WBC body fluid 160 /uL 0-10 Above high normal WBC Body Fluid [place] ([facility]) appearance, body fluid cloudy clear normal Appearance, B jamil Fluid [place] ([facility]) RBC body fluid 2 10 <2 normal RBC Body Fluid [place] ([facility]) bf mononuclear cell % 96.3 % 0-0 Above high normal Bf [place] nuclear Cell % [place] ([facility]) bf polymorphonuclear cell % 3.7 % 0-0 Above high no rmal Bf Polymorphonuclear Cell % [place] ([facility]) ID Date Data Source [id number] 08/23/2020 01:53:00 PM EST [place] ([facility]) Name Value Range Interpretation Code Description Data Julia rce(s) Supporting Document(s) albumin, body fluid 0.9 g/dL not established normal Albumin, Julien dy Fluid [place] ([facility]) source, body fluid albumin ascites normal Source, B jamil Fluid Albumin [place] ([facility]) ID Date Data Source [id number] 08/23/2020 01:53:00 PM EST [place] ([facility]) Name Value Range Interpretation Code Description Data Julia rce(s) Supporting Document(s) total protein, body fluid 1.4 g/dL not established normal Total Protein, Body Fluid [place] ([facility]) source, body fluid tot protein ascites normal Sourc e, Body Fluid Tot Protein [place] ([facility]) ID Date Data Source [id number] 08/23/2020 01:53:00 PM EST [place] ([facility]) Name Value Range Interpretation Code Description Data Julia rce(s) Supporting Document(s) source, body fluid ascites normal Source, Body Flui d [place] ([facility]) ascites fL color yellow colorless normal Ascites fL Color AT [place] ([facility]) appearance, body fluid cloudy clear normal Appearance, B jamil Fluid [place] ([facility]) WBC body fluid 160 /uL 0-10 Above high normal WBC Body Fluid [place] ([facility]) RBC body fluid 2 10 <2 normal RBC Body Fluid [place] ([facility]) bf polymorphonuclear cell % 3.7 % 0-0 Above high no rmal Bf Polymorphonuclear Cell % [place] ([facility]) bf mononuclear cell % 96.3 % 0-0 Above high normal Bf [place] nuclear Cell % [place] ([facility]) ID Date Data Source [id number] 08/23/2020 01:53:00 PM EST [place] ([facility]) Name Value Range Interpretation Code Description Data Julia rce(s) Supporting Document(s) source, body fluid albumin ascites normal Source, B jamil Fluid Albumin [place] ([facility]) albumin, body fluid 0.9 g/dL not established normal Albumin, Julien dy Fluid [place] ([facility]) ID Date Data Source [id number] 08/23/2020 01:53:00 PM EST [place] ([facility]) Name Value Range Interpretation Code Description Data Julia rce(s) Supporting Document(s) total protein, body fluid 1.4 g/dL not established normal Total Protein, Body Fluid [place] ([facility]) source, body fluid tot protein ascites normal Sourc e, Body Fluid Tot Protein [place] ([facility]) ID Date Data Source [id number] 08/23/2020 01:53:00 PM EST [place] ([facility]) Name Value Range Interpretation Code Description Data Julia rce(s) Supporting Document(s) source, body fluid ascites normal Source, Body Flui d [place] ([facility]) ascites fL color yellow colorless normal Ascites fL Color [place] ([facility]) WBC body fluid 160 /uL 0-10 Above high normal WBC Body Fluid [place] ([facility]) appearance, body fluid cloudy clear normal Appearance, B jamil Fluid [place] ([facility]) RBC body fluid 2 10 <2 normal RBC Body Fluid [place] ([facility]) bf mononuclear cell % 96.3 % 0-0 Above high normal Bf [place] nuclear Cell % [place] ([facility]) bf polymorphonuclear cell % 3.7 % 0-0 Above high no rmal Bf Polymorphonuclear Cell % [place] ([facility]) ID Date Data Source [id number] 08/23/2020 01:53:00 PM EST [place] ([facility]) Name Value Range Interpretation Code Description Data Julia rce(s) Supporting Document(s) albumin, body fluid 0.9 g/dL not established normal Albumin, Julien dy Fluid [place] ([facility]) source, body fluid albumin ascites normal Source, B jamil Fluid Albumin [place] ([facility]) ID Date Data Source [id number] 08/23/2020 01:53:00 PM EST [place] ([facility]) Name Value Range Interpretation Code Description Data Julia rce(s) Supporting Document(s) total protein, body fluid 1.4 g/dL not established normal Total Protein, Body Fluid [place] ([facility]) source, body fluid tot protein ascites normal Sourc e, Body Fluid Tot Protein [place] ([facility]) ID Date Data Source [id number] 08/23/2020 01:53:00 PM EST [place] ([facility]) Name Value Range Interpretation Code Description Data Julia rce(s) Supporting Document(s) source, body fluid ascites normal Source, Body Flui d [place] ([facility]) ascites fL color yellow colorless normal Ascites fL Color [place] ([facility]) appearance, body fluid cloudy clear normal Appearance, B jamil Fluid [place] ([facility]) WBC body fluid 160 /uL 0-10 Above high normal WBC Body Fluid [place] ([facility]) RBC body fluid 2 10 <2 normal RBC Body Fluid [place] ([facility]) bf mononuclear cell % 96.3 % 0-0 Above high normal Bf [place] nuclear Cell % [place] ([facility]) bf polymorphonuclear cell % 3.7 % 0-0 Above high no rmal Bf Polymorphonuclear Cell % [place] ([facility]) ID Date Data Source [id number] 08/23/2020 11:43:00 AM EST [place] ([facility]) Name Value Range Interpretation Code Description Data Julia rce(s) Supporting Document(s) albumin 25% transfused product: albumin 25% count: 4 Albumin 25% [place] ([facility]) ID Date Data Source [id number] 08/23/2020 11:43:00 AM EST [place] ([facility]) Name Value Range Interpretation Code Description Data Julia rce(s) Supporting Document(s) albumin 25% transfused product: albumin 25% count: 4 Albumin 25% [place] ([facility]) ID Date Data Source [id number] 08/23/2020 11:43:00 AM EST [place] ([facility]) Name Value Range Interpretation Code Description Data Julia rce(s) Supporting Document(s) albumin 25% transfused product: albumin 25% count: 4 Albumin 25% [place] ([facility]) ID Date Data Source [id number] 08/23/2020 11:43:00 AM EST [place] ([facility]) Name Value Range Interpretation Code Description Data Julia rce(s) Supporting Document(s) albumin 25% transfused product: albumin 25% count: 4 Albumin 25% [place] ([facility]) ID Date Data Source [id number] 08/16/2020 11:48:00 AM EST [place] ([facility]) Name Value Range Interpretation Code Description Data Julia rce(s) Supporting Document(s) Ab screen gel manual negative normal Ab Screen Gel M anual [place] ([facility]) ID Date Data Source [id number] 08/16/2020 11:48:00 AM EST [place] ([facility]) Name Value Range Interpretation Code Description Data Julia rce(s) Supporting Document(s) blood type A positive normal Blood Type [place] ([facility]) ID Date Data Source [id number] 08/16/2020 11:48:00 AM EST [place] ([facility]) Name Value Range Interpretation Code Description Data Julia rce(s) Supporting Document(s) glucose, fasting 110 mg/dL 70-100 Above high normal Glucose, Fas ting [place] ([facility]) blood urea nitrogen 29 mg/dL 7-18 Above high normal Blood Ure a Nitrogen [place] ([facility]) creatinine for GFR 1.03 mg/dL 0.55-1.30 normal Creatinine for GF R [place] ([facility]) glomerular filtration rate >51 normal Glomerula r Filtration Rate [place] ([facility]) potassium serum 5.0 mEq/L 3.5-5.1 normal Potassium Serum [place] ([facility]) sodium level 128 mEq/L 136-145 Below low normal Sodium Level [place] ([facility]) chloride level 97 mEq/L 98-107 Below low normal Chloride Level [place] ([facility]) carbon dioxide level 25 mEq/L 21-32 normal Carbon Dioxide Level [place] ([facility]) calcium level 9.5 mg/dL 8.5-10.1 normal Calcium Level [place] ( [facility]) anion gap 6 mEq/L 8-16 Below low normal Anion Gap [place] ( [facility]) ID Date Data Source [id number] 08/16/2020 11:48:00 AM EST [facility]) Name Value Range Interpretation Code Description Data Julia rce(s) Supporting Document(s) prothrombin time 19.4 seconds 12.5-14.3 Above high normal Prothrombi n Time [place] ([facility]) partial thromboplastin time 39.9 seconds 24.2-38.5 Above high no rmal Partial Thromboplastin Time [place] ([facility]) INR normal Inr [place] ([facility]) ID Date Data Source [id number] 08/16/2020 11:48:00 AM EST [place] ([facility]) Name Value Range Interpretation Code Description Data Julia rce(s) Supporting Document(s) white blood count 6.8 10 4.0-10.0 normal White Blood Count [place] ([facility]) red blood count 3.49 10 4.00-5.40 Below low normal Red Blood Coun t [place] ([facility]) hematocrit 32.5 % 36.0-47.0 Below low normal Hematocrit [place] ( [facility]) hemoglobin 11.3 g/dL 12.0-15.5 Below low normal Hemoglobin [place] ( [facility]) mean corpuscular hemoglobin 32.4 pg 27.0-33.0 normal Mean Corpuscular Hemoglobin [place] ([facility]) mean corpuscular volume 93.1 fL 80.0-96.0 normal Mean Corpusc ular Volume [place] ([facility]) red cell distribution width 18.4 % 11.5-14.5 Above high no rmal Red Cell Distribution Width [place] ([facility]) mean corpuscular HGB conc 34.8 g/dL 32.0-36.5 normal Mean Corpu scular HGB Conc [place] ([facility]) platelet count, automated 138 10 150-450 Below low denice l Platelet Count, Automated [place] ([facility]) lymph % 11.3 % 24.0-44.0 Below low normal Lymph % [place] ( [facility]) neutrophils % 75.2 % 36.0-66.0 Above high normal Neutrophils % [place] ([facility]) eos % 0.9 % 0.0-3.0 normal Eos % [place] ([facility]) mono % 11.6 % 0.0-5.0 Above high normal [place] % [place] ([facility]) nucleated red blood cell % 0.0 % 0-0 normal Nucleated Red Blood Cell % [place] ([facility]) immature granulocyte % 0.4 % 0-3.0 normal Immature Gran ulocyte % [place] ([facility]) baso % 0.6 % 0.0-1.0 normal Baso % [place] ([facility]) neutrophils # 5.1 10 1.5-8.5 normal Neutrophils # [place] ( [facility]) lymph # 0.8 10 1.5-5.0 Below low normal Lymph # [place] ( [facility]) mono # 0.8 10 0.0-0.8 normal [place] # [place] ([facility]) baso # 0.0 10 0.0-0.2 normal Baso # [place] ([facility]) eos # 0.1 10 0.0-0.5 normal Eos # [place] ([facility]) ID Date Data Source [id number] 08/16/2020 11:48:00 AM EST [place] ([facility]) Name Value Range Interpretation Code Description Data Julia rce(s) Supporting Document(s) Ab screen gel manual negative normal Ab Screen Gel M anual [place] ([facility]) ID Date Data Source [id number] 08/16/2020 11:48:00 AM EST [place] ([facility]) Name Value Range Interpretation Code Description Data Julia rce(s) Supporting Document(s) blood type A positive normal Blood Type [place] ([facility]) ID Date Data Source [id number] 08/16/2020 11:48:00 AM EST [place] ([facility]) Name Value Range Interpretation Code Description Data Julia rce(s) Supporting Document(s) glucose, fasting 110 mg/dL 70-100 Above high normal Glucose, Fas ting [place] ([facility]) creatinine for GFR 1.03 mg/dL 0.55-1.30 normal Creatinine for GF R [place] ([facility]) blood urea nitrogen 29 mg/dL 7-18 Above high normal Blood Ure a Nitrogen [place] ([facility]) glomerular filtration rate >51 normal Glomerula r Filtration Rate [place] ([facility]) sodium level 128 mEq/L 136-145 Below low normal Sodium Level [place] ([facility]) chloride level 97 mEq/L 98-107 Below low normal Chloride Level [place] ([facility]) potassium serum 5.0 mEq/L 3.5-5.1 normal Potassium Serum [place] ([facility]) anion gap 6 mEq/L 8-16 Below low normal Anion Gap [place] ( [facility]) carbon dioxide level 25 mEq/L 21-32 normal Carbon Dioxide Level [place] ([facility]) calcium level 9.5 mg/dL 8.5-10.1 normal Calcium Level [place] ( [facility]) ID Date Data Source [id number] 08/16/2020 11:48:00 AM EST [place] ([facility]) Name Value Range Interpretation Code Description Data Julia rce(s) Supporting Document(s) prothrombin time 19.4 seconds 12.5-14.3 Above high normal Prothrombi n Time [place] ([facility]) partial thromboplastin time 39.9 seconds 24.2-38.5 Above high no rmal Partial Thromboplastin Time [place] ([facility]) INR normal Inr [place] ([facility]) ID Date Data Source [id number] 08/16/2020 11:48:00 AM EST [place] ([facility]) Name Value Range Interpretation Code Description Data Julia rce(s) Supporting Document(s) white blood count 6.8 10 4.0-10.0 normal White Blood Count [place] ([facility]) hematocrit 32.5 % 36.0-47.0 Below low normal Hematocrit [place] ( [facility]) red blood count 3.49 10 4.00-5.40 Below low normal Red Blood Coun t [place] ([facility]) hemoglobin 11.3 g/dL 12.0-15.5 Below low normal Hemoglobin [place] ( [facility]) mean corpuscular hemoglobin 32.4 pg 27.0-33.0 normal Mean Corpuscular Hemoglobin [place] ([facility]) mean corpuscular volume 93.1 fL 80.0-96.0 normal Mean Corpusc ular Volume [place] ([facility]) mean corpuscular HGB conc 34.8 g/dL 32.0-36.5 normal Mean Corpu scular HGB Conc [place] ([facility]) red cell distribution width 18.4 % 11.5-14.5 Above high no rmal Red Cell Distribution Width [place] ([facility]) platelet count, automated 138 10 150-450 Below low denice l Platelet Count, Automated [place] ([facility]) neutrophils % 75.2 % 36.0-66.0 Above high normal Neutrophils % [place] ([facility]) lymph % 11.3 % 24.0-44.0 Below low normal Lymph % [place] ( [facility]) mono % 11.6 % 0.0-5.0 Above high normal [place] % [place] ([facility]) eos % 0.9 % 0.0-3.0 normal Eos % [place] ([facility]) baso % 0.6 % 0.0-1.0 normal Baso % [place] ([facility]) immature granulocyte % 0.4 % 0-3.0 normal Immature Gran ulocyte % [place] ([facility]) nucleated red blood cell % 0.0 % 0-0 normal Nucleated Red Blood Cell % [place] ([facility]) neutrophils # 5.1 10 1.5-8.5 normal Neutrophils # [place] ( [facility]) eos # 0.1 10 0.0-0.5 normal Eos # [place] ([facility]) mono # 0.8 10 0.0-0.8 normal [place] # [place] ([facility]) lymph # 0.8 10 1.5-5.0 Below low normal Lymph # [place] ( [facility]) baso # 0.0 10 0.0-0.2 normal Baso # [place] ([facility]) ID Date Data Source [id number] 08/16/2020 11:48:00 AM EST [place] ([facility]) Name Value Range Interpretation Code Description Data Julia rce(s) Supporting Document(s) Ab screen gel manual negative normal Ab Screen Gel M anual [place] ([facility]) ID Date Data Source [id number] 08/16/2020 11:48:00 AM EST [place] ([facility]) Name Value Range Interpretation Code Description Data Julia rce(s) Supporting Document(s) blood type A positive normal Blood Type [place] ([facility]) ID Date Data Source [id number] 08/16/2020 11:48:00 AM EST [place] ([facility]) Name Value Range Interpretation Code Description Data Julia rce(s) Supporting Document(s) glucose, fasting 110 mg/dL 70-100 Above high normal Glucose, Fas ting [place] ([facility]) blood urea nitrogen 29 mg/dL 7-18 Above high normal Blood Ure a Nitrogen [place] ([facility]) creatinine for GFR 1.03 mg/dL 0.55-1.30 normal Creatinine for GF R [place] ([facility]) glomerular filtration rate >51 normal Glomerula r Filtration Rate [place] ([facility]) sodium level 128 mEq/L 136-145 Below low normal Sodium Level [place] ([facility]) potassium serum 5.0 mEq/L 3.5-5.1 normal Potassium Serum [place] ([facility]) chloride level 97 mEq/L 98-107 Below low normal Chloride Level [place] ([facility]) carbon dioxide level 25 mEq/L 21-32 normal Carbon Dioxide Level [place] ([facility]) anion gap 6 mEq/L 8-16 Below low normal Anion Gap [place] ( [facility]) calcium level 9.5 mg/dL 8.5-10.1 normal Calcium Level [place] ( [facility]) ID Date Data Source [id number] 08/16/2020 11:48:00 AM EST [facility]) Name Value Range Interpretation Code Description Data Julia rce(s) Supporting Document(s) prothrombin time 19.4 seconds 12.5-14.3 Above high normal Prothrombi n Time [place] ([facility]) partial thromboplastin time 39.9 seconds 24.2-38.5 Above high no rmal Partial Thromboplastin Time [place] ([facility]) INR normal Inr [place] ([facility]) ID Date Data Source [id number] 08/16/2020 11:48:00 AM EST [place] ([facility]) Name Value Range Interpretation Code Description Data Julia rce(s) Supporting Document(s) white blood count 6.8 10 4.0-10.0 normal White Blood Count [place] ([facility]) hemoglobin 11.3 g/dL 12.0-15.5 Below low normal Hemoglobin [place] ( [facility]) red blood count 3.49 10 4.00-5.40 Below low normal Red Blood Coun t [place] ([facility]) hematocrit 32.5 % 36.0-47.0 Below low normal Hematocrit [place] ( [facility]) mean corpuscular volume 93.1 fL 80.0-96.0 normal Mean Corpusc ular Volume [place] ([facility]) mean corpuscular HGB conc 34.8 g/dL 32.0-36.5 normal Mean Corpu scular HGB Conc [place] ([facility]) mean corpuscular hemoglobin 32.4 pg 27.0-33.0 normal Mean Corpuscular Hemoglobin [place] ([facility]) red cell distribution width 18.4 % 11.5-14.5 Above high no rmal Red Cell Distribution Width [place] ([facility]) platelet count, automated 138 10 150-450 Below low denice l Platelet Count, Automated [place] ([facility]) neutrophils % 75.2 % 36.0-66.0 Above high normal Neutrophils % [place] ([facility]) lymph % 11.3 % 24.0-44.0 Below low normal Lymph % [place] ( [facility]) eos % 0.9 % 0.0-3.0 normal Eos % [place] ([facility]) mono % 11.6 % 0.0-5.0 Above high normal [place] % [place] ([facility]) baso % 0.6 % 0.0-1.0 normal Baso % [place] ([facility]) immature granulocyte % 0.4 % 0-3.0 normal Immature Gran ulocyte % [place] ([facility]) nucleated red blood cell % 0.0 % 0-0 normal Nucleated Red Blood Cell % [place] ([facility]) neutrophils # 5.1 10 1.5-8.5 normal Neutrophils # [place] ( [facility]) lymph # 0.8 10 1.5-5.0 Below low normal Lymph # [place] ( [facility]) mono # 0.8 10 0.0-0.8 normal [place] # [place] ([facility]) eos # 0.1 10 0.0-0.5 normal Eos # [place] ([facility]) baso # 0.0 10 0.0-0.2 normal Baso # [place] ([facility]) ID Date Data Source [id number] 08/16/2020 11:48:00 AM EST [place] ([facility]) Name Value Range Interpretation Code Description Data Julia rce(s) Supporting Document(s) Ab screen gel manual negative normal Ab Screen Gel M anual [place] ([facility]) ID Date Data Source [id number] 08/16/2020 11:48:00 AM EST [place] ([facility]) Name Value Range Interpretation Code Description Data Julia rce(s) Supporting Document(s) blood type A positive normal Blood Type [place] ([facility]) ID Date Data Source [id number] 08/16/2020 11:48:00 AM EST [place] ([facility]) Name Value Range Interpretation Code Description Data Julia rce(s) Supporting Document(s) blood urea nitrogen 29 mg/dL 7-18 Above high normal Blood Ure a Nitrogen [place] ([facility]) glucose, fasting 110 mg/dL 70-100 Above high normal Glucose, Fas ting [place] ([facility]) creatinine for GFR 1.03 mg/dL 0.55-1.30 normal Creatinine for GF R [place] ([facility]) glomerular filtration rate >51 normal Glomerula r Filtration Rate [place] ([facility]) potassium serum 5.0 mEq/L 3.5-5.1 normal Potassium Serum [place] [place] ([facility]) sodium level 128 mEq/L 136-145 Below low normal Sodium Level [place] [place] ([facility]) carbon dioxide level 25 mEq/L 21-32 normal Carbon Dioxide Level [place] ([facility]) chloride level 97 mEq/L 98-107 Below low normal Chloride Level [place] ([facility]) anion gap 6 mEq/L 8-16 Below low normal Anion Gap [place] ( [facility]) calcium level 9.5 mg/dL 8.5-10.1 normal Calcium Level [place] ( [facility]) ID Date Data Source [id number] 08/16/2020 11:48:00 AM EST [place] ([facility]) Name Value Range Interpretation Code Description Data Julia rce(s) Supporting Document(s) prothrombin time 19.4 seconds 12.5-14.3 Above high normal Prothrombi n Time [place] ([facility]) INR normal Inr [place] ([facility]) partial thromboplastin time 39.9 seconds 24.2-38.5 Above high no rmal Partial Thromboplastin Time [place] ([facility]) ID Date Data Source [id number] 08/16/2020 11:48:00 AM EST [place] ([facility]) Name Value Range Interpretation Code Description Data Julia rce(s) Supporting Document(s) white blood count 6.8 10 4.0-10.0 normal White Blood Count [place] ([facility]) red blood count 3.49 10 4.00-5.40 Below low normal Red Blood Coun t [place] ([facility]) hemoglobin 11.3 g/dL 12.0-15.5 Below low normal Hemoglobin [place] ( [facility]) hematocrit 32.5 % 36.0-47.0 Below low normal Hematocrit [place] ( [facility]) mean corpuscular volume 93.1 fL 80.0-96.0 normal Mean Corpusc ular Volume [place] ([facility]) mean corpuscular hemoglobin 32.4 pg 27.0-33.0 normal Mean Corpuscular Hemoglobin [place] ([facility]) mean corpuscular HGB conc 34.8 g/dL 32.0-36.5 normal Mean Corpu scular HGB Conc [place] ([facility]) neutrophils % 75.2 % 36.0-66.0 Above high normal Neutrophils % [place] ([facility]) platelet count, automated 138 10 150-450 Below low denice l Platelet Count, Automated [place] ([facility]) red cell distribution width 18.4 % 11.5-14.5 Above high no rmal Red Cell Distribution Width [place] ([facility]) lymph % 11.3 % 24.0-44.0 Below low normal Lymph % [place] ( [facility]) mono % 11.6 % 0.0-5.0 Above high normal [place] % [place] ([facility]) immature granulocyte % 0.4 % 0-3.0 normal Immature Gran ulocyte % [place] ([facility]) baso % 0.6 % 0.0-1.0 normal Baso % [place] ([facility]) eos % 0.9 % 0.0-3.0 normal Eos % [place] ([facility]) nucleated red blood cell % 0.0 % 0-0 normal Nucleated Red Blood Cell % [place] ([facility]) neutrophils # 5.1 10 1.5-8.5 normal Neutrophils # [place] ( [facility]) mono # 0.8 10 0.0-0.8 normal [place] # [place] ([facility]) eos # 0.1 10 0.0-0.5 normal Eos # [place] ([facility]) lymph # 0.8 10 1.5-5.0 Below low normal Lymph # [place] ( [facility]) baso # 0.0 10 0.0-0.2 normal Baso # [place] ([facility]) ID Date Data Source [id number] 08/16/2020 09:04:00 AM EST [place] ([facility]) Name Value Range Interpretation Code Description Data Julia rce(s) Supporting Document(s) albumin 25% transfused product: albumin 25% count: 4 Albumin 25% [place] ([facility]) ID Date Data Source [id number] 08/16/2020 09:04:00 AM EST [place] ([facility]) Name Value Range Interpretation Code Description Data Julia rce(s) Supporting Document(s) total protein, body fluid 1.4 g/dL not established normal Total Protein, Body Fluid [place] ([facility]) source, body fluid tot protein ascites normal Sourc e, Body Fluid Tot Protein [place] ([facility]) ID Date Data Source [id number] 08/16/2020 09:04:00 AM EST [place] ([facility]) Name Value Range Interpretation Code Description Data Julia rce(s) Supporting Document(s) ascites fL color yellow colorless normal Ascites fL Color AT [place] ([facility]) source, body fluid ascites normal Source, Body Flui d [place] ([facility]) WBC body fluid 163 /uL 0-10 Above high normal WBC Body Fluid [place] ([facility]) appearance, body fluid cloudy clear normal Appearance, B jamil Fluid [place] ([facility]) bf mononuclear cell % 97.6 % 0-0 Above high normal Bf [place] nuclear Cell % [place] ([facility]) RBC body fluid < 2 <2 normal RBC Body Fluid [place] ([facility]) bf polymorphonuclear cell % 2.4 % 0-0 Above high no rmal Bf Polymorphonuclear Cell % [place] ([facility]) ID Date Data Source [id number] 08/16/2020 09:04:00 AM EST [place] ([facility]) Name Value Range Interpretation Code Description Data Julia rce(s) Supporting Document(s) albumin, body fluid 0.7 g/dL not established normal Albumin, Julien dy Fluid [place] ([facility]) source, body fluid albumin ascites normal Source, B jamil Fluid Albumin [place] ([facility]) ID Date Data Source [id number] 08/16/2020 09:04:00 AM EST [place] ([facility]) Name Value Range Interpretation Code Description Data Julia rce(s) Supporting Document(s) albumin 25% transfused product: albumin 25% count: 4 Albumin 25% [place] ([facility]) ID Date Data Source [id number] 08/16/2020 09:04:00 AM EST [place] ([facility]) Name Value Range Interpretation Code Description Data Julia rce(s) Supporting Document(s) total protein, body fluid 1.4 g/dL not established normal Total Protein, Body Fluid [place] ([facility]) source, body fluid tot protein ascites normal Sourc e, Body Fluid Tot Protein [place] ([facility]) ID Date Data Source [id number] 08/16/2020 09:04:00 AM EST [place] ([facility]) Name Value Range Interpretation Code Description Data Julia rce(s) Supporting Document(s) source, body fluid ascites normal Source, Body Flui d [place] ([facility]) ascites fL color yellow colorless normal Ascites fL Color [place] ([facility]) appearance, body fluid cloudy clear normal Appearance, B jamil Fluid [place] ([facility]) WBC body fluid 163 /uL 0-10 Above high normal WBC Body Fluid [place] ([facility]) bf mononuclear cell % 97.6 % 0-0 Above high normal Bf [place] nuclear Cell % [place] ([facility]) RBC body fluid < 2 <2 normal RBC Body Fluid [place] ([facility]) bf polymorphonuclear cell % 2.4 % 0-0 Above high no rmal Bf Polymorphonuclear Cell % [place] ([facility]) ID Date Data Source [id number] 08/16/2020 09:04:00 AM EST [place] ([facility]) Name Value Range Interpretation Code Description Data Julia rce(s) Supporting Document(s) albumin, body fluid 0.7 g/dL not established normal Albumin, Julien dy Fluid [place] ([facility]) source, body fluid albumin ascites normal Source, B jmail Fluid Albumin [place] ([facility]) ID Date Data Source [id number] 08/16/2020 09:04:00 AM EST [place] ([facility]) Name Value Range Interpretation Code Description Data Julia rce(s) Supporting Document(s) albumin 25% transfused product: albumin 25% count: 4 Albumin 25% [place] ([facility]) ID Date Data Source [id number] 08/16/2020 09:04:00 AM EST [place] ([facility]) Name Value Range Interpretation Code Description Data Julia rce(s) Supporting Document(s) total protein, body fluid 1.4 g/dL not established normal Total Protein, Body Fluid [place] ([facility]) source, body fluid tot protein ascites normal Sourc e, Body Fluid Tot Protein [place] ([facility]) ID Date Data Source [id number] 08/16/2020 09:04:00 AM EST [place] ([facility]) Name Value Range Interpretation Code Description Data Julia rce(s) Supporting Document(s) source, body fluid ascites normal Source, Body Flui d [place] ([facility]) ascites fL color yellow colorless normal Ascites fL Color [place] ([facility]) appearance, body fluid cloudy clear normal Appearance, B jamil Fluid [place] ([facility]) RBC body fluid < 2 <2 normal RBC Body Fluid [place] ([facility]) WBC body fluid 163 /uL 0-10 Above high normal WBC Body Fluid [place] ([facility]) bf polymorphonuclear cell % 2.4 % 0-0 Above high no rmal Bf Polymorphonuclear Cell % [place] ([facility]) bf mononuclear cell % 97.6 % 0-0 Above high normal Bf [place] nuclear Cell % [place] ([facility]) ID Date Data Source [id number] 08/16/2020 09:04:00 AM EST [place] ([facility]) Name Value Range Interpretation Code Description Data Julia rce(s) Supporting Document(s) albumin, body fluid 0.7 g/dL not established normal Albumin, Julien dy Fluid [place] ([facility]) source, body fluid albumin ascites normal Source, B jamil Fluid Albumin [place] ([facility]) ID Date Data Source [id number] 08/16/2020 09:04:00 AM EST [place] ([facility]) Name Value Range Interpretation Code Description Data Julia rce(s) Supporting Document(s) albumin 25% transfused product: albumin 25% count: 4 Albumin 25% [place] ([facility]) ID Date Data Source [id number] 08/16/2020 09:04:00 AM EST [place] ([facility]) Name Value Range Interpretation Code Description Data Julia rce(s) Supporting Document(s) total protein, body fluid 1.4 g/dL not established normal Total Protein, Body Fluid [place] ([facility]) source, body fluid tot protein ascites normal Sourc e, Body Fluid Tot Protein [place] ([facility]) ID Date Data Source [id number] 08/16/2020 09:04:00 AM EST [place] ([facility]) Name Value Range Interpretation Code Description Data Julia rce(s) Supporting Document(s) source, body fluid ascites normal Source, Body Flui d [place] ([facility]) ascites fL color yellow colorless normal Ascites fL Color [place] ([facility]) appearance, body fluid cloudy clear normal Appearance, B jamil Fluid [place] ([facility]) WBC body fluid 163 /uL 0-10 Above high normal WBC Body Fluid [place] ([facility]) bf mononuclear cell % 97.6 % 0-0 Above high normal Bf [place] nuclear Cell % [place] ([facility]) RBC body fluid < 2 <2 normal RBC Body Fluid [place] ([facility]) bf polymorphonuclear cell % 2.4 % 0-0 Above high no rmal Bf Polymorphonuclear Cell % [place] ([facility]) ID Date Data Source [id number] 08/16/2020 09:04:00 AM EST [place] ([facility]) Name Value Range Interpretation Code Description Data Julia rce(s) Supporting Document(s) albumin, body fluid 0.7 g/dL not established normal Albumin, Julien dy Fluid [place] ([facility]) source, body fluid albumin ascites normal Source, B jamil Fluid Albumin [place] ([facility]) ID Date Data Source [id number] 08/14/2020 04:00:00 PM EST [place] ([facility]) Name Value Range Interpretation Code Description Data Julia rce(s) Supporting Document(s) ID Date Data Source [id number] 08/14/2020 04:00:00 PM EST [place] ([facility]) Name Value Range Interpretation Code Description Data Julia rce(s) Supporting Document(s) ID Date Data Source [id number] 08/14/2020 04:00:00 PM EST [place] ([facility]) Name Value Range Interpretation Code Description Data Julia rce(s) Supporting Document(s) ID Date Data Source [id number] 08/14/2020 04:00:00 PM EST [place] ([facility]) Name Value Range Interpretation Code Description Data Julia rce(s) Supporting Document(s) ID Date Data Source [id number] 08/10/2020 07:19:00 AM EDT [place] ([facility]) Name Value Range Interpretation Code Description Data Julia rce(s) Supporting Document(s) glucose, fasting 130 mg/dL 70-100 Above high normal Glucose, Fas ting [place] ([facility]) creatinine for GFR 1.49 mg/dL 0.55-1.30 Above high normal Creatinine for GFR [place] ([facility]) blood urea nitrogen 34 mg/dL 7-18 Above high normal Blood Ure a Nitrogen [place] ([facility]) glomerular filtration rate >51 Below low normal [place]ra merular Filtration Rate [place] ([facility]) sodium level 127 mEq/L 136-145 Below low normal Sodium Level [place] ([facility]) potassium serum 5.3 mEq/L 3.5-5.1 Above high normal Potassium Ser um [place] ([facility]) chloride level 93 mEq/L 98-107 Below low normal Chloride Level [place] ([facility]) calcium level 9.1 mg/dL 8.5-10.1 normal Calcium Level [place] ( [facility]) carbon dioxide level 28 mEq/L 21-32 normal Carbon Dioxide Level [place] ([facility]) anion gap 6 mEq/L 8-16 Below low normal Anion Gap [place] ( [facility]) ID Date Data Source [id number] 08/10/2020 07:19:00 AM EDT [place] ([facility]) Name Value Range Interpretation Code Description Data Julia rce(s) Supporting Document(s) ALT/SGPT 30 U/L 12-78 normal ALT/SGPT [place] ([facility]) AST/SGOT 51 U/L 7-37 Above high normal AST/SGOT [place] ([facility]) alkaline phosphatase 136 U/L 45-117 Above high normal Alkaline Phosphatase [place] ([facility]) total protein 7.1 gm/dL 6.4-8.2 normal Total Protein [place] ( [facility]) bilirubin,direct 1.6 mg/dL 0.0-0.2 Above high normal Bilirubin,di rect [place] ([facility]) bilirubin,total 4.7 mg/dL 0.2-1.0 Above high normal Bilirubin,tot al [place] ([facility]) albumin/globulin ratio 1.2-2.2 normal Albumin/globu adam Ratio [place] ([facility]) albumin 3.8 gm/dL 3.2-5.2 normal Albumin [place] ([facility]) ID Date Data Source [id number] 08/10/2020 07:19:00 AM EDT [place] ([facility]) Name Value Range Interpretation Code Description Data Julia rce(s) Supporting Document(s) sodium,random urine 16 mEq/L normal Sodium,random Ur ine [place] ([facility]) ID Date Data Source [id number] 08/10/2020 07:19:00 AM EDT [place] ([facility]) Name Value Range Interpretation Code Description Data Julia rce(s) Supporting Document(s) creatinine,random urine 118.0 mg/dL normal Creatinine, random Urine [place] ([facility]) ID Date Data Source [id number] 08/10/2020 07:19:00 AM EDT [place] ([facility]) Name Value Range Interpretation Code Description Data Julia rce(s) Supporting Document(s) white blood count 8.6 10 4.0-10.0 normal White Blood Count [place] ([facility]) red blood count 3.14 10 4.00-5.40 Below low normal Red Blood Coun t [place] ([facility]) hematocrit 28.6 % 36.0-47.0 Below low normal Hematocrit [place] ( [facility]) hemoglobin 10.1 g/dL 12.0-15.5 Below low normal Hemoglobin [place] ( [facility]) mean corpuscular hemoglobin 32.2 pg 27.0-33.0 normal Mean Corpuscular Hemoglobin [place] ([facility]) mean corpuscular HGB conc 35.3 g/dL 32.0-36.5 normal Mean Corpu scular HGB Conc [place] ([facility]) mean corpuscular volume 91.1 fL 80.0-96.0 normal Mean Corpusc ular Volume [place] ([facility]) nucleated red blood cell % 0.0 % 0-0 normal Nucleated Red Blood Cell % [place] ([facility]) red cell distribution width 17.7 % 11.5-14.5 Above high no rmal Red Cell Distribution Width [place] ([facility]) platelet count, automated 118 10 150-450 Below low denice l Platelet Count, Automated [place] ([facility]) ID Date Data Source [id number] 08/10/2020 07:19:00 AM EDT [facility]) Name Value Range Interpretation Code Description Data Julia rce(s) Supporting Document(s) blood urea nitrogen 34 mg/dL 7-18 Above high normal Blood Ure a Nitrogen [place] ([facility]) glucose, fasting 130 mg/dL 70-100 Above high normal Glucose, Fas ting [facility]) creatinine for GFR 1.49 mg/dL 0.55-1.30 Above high normal Creatinine for GFR [place] ([facility]) glomerular filtration rate >51 Below low normal Deidra merular Filtration Rate [place] ([facility]) sodium level 127 mEq/L 136-145 Below low normal Sodium Level [place] ([facility]) chloride level 93 mEq/L 98-107 Below low normal Chloride Level [place] ([facility]) anion gap 6 mEq/L 8-16 Below low normal Anion Gap [place] ( [facility]) potassium serum 5.3 mEq/L 3.5-5.1 Above high normal Potassium Ser um [place] ([facility]) carbon dioxide level 28 mEq/L 21-32 normal Carbon Dioxide Level [place] ([facility]) calcium level 9.1 mg/dL 8.5-10.1 normal Calcium Level [place] ( [facility]) ID Date Data Source [id number] 08/10/2020 07:19:00 AM EDT [place] ([facility]) Name Value Range Interpretation Code Description Data Julia rce(s) Supporting Document(s) AST/SGOT 51 U/L 7-37 Above high normal AST/SGOT [place] ([facility]) ALT/SGPT 30 U/L 12-78 normal ALT/SGPT [place] ([facility]) bilirubin,total 4.7 mg/dL 0.2-1.0 Above high normal Bilirubin,tot al [place] ([facility]) alkaline phosphatase 136 U/L 45-117 Above high normal Alkaline Phosphatase [place] ([facility]) albumin 3.8 gm/dL 3.2-5.2 normal Albumin [place] ([facility]) albumin/globulin ratio 1.2-2.2 normal Albumin/globu adam Ratio [place] ([facility]) bilirubin,direct 1.6 mg/dL 0.0-0.2 Above high normal Bilirubin,di rect [place] ([facility]) total protein 7.1 gm/dL 6.4-8.2 normal Total Protein [facility]) ID Date Data Source [id number] 08/10/2020 07:19:00 AM EDT [place] ([facility]) Name Value Range Interpretation Code Description Data Julia rce(s) Supporting Document(s) sodium,random urine 16 mEq/L normal Sodium,random Ur ine [place] ([facility]) ID Date Data Source [id number] 08/10/2020 07:19:00 AM EDT [place] ([facility]) Name Value Range Interpretation Code Description Data Julia rce(s) Supporting Document(s) creatinine,random urine 118.0 mg/dL normal Creatinine, random Urine [place] ([facility]) ID Date Data Source [id number] 08/10/2020 07:19:00 AM EDT [facility]) Name Value Range Interpretation Code Description Data Julia rce(s) Supporting Document(s) red blood count 3.14 10 4.00-5.40 Below low normal Red Blood Coun t [facility]) white blood count 8.6 10 4.0-10.0 normal White Blood Count [place] ([facility]) hematocrit 28.6 % 36.0-47.0 Below low normal Hematocrit [place] ( [facility]) hemoglobin 10.1 g/dL 12.0-15.5 Below low normal Hemoglobin [place] ( [facility]) mean corpuscular hemoglobin 32.2 pg 27.0-33.0 normal Mean Corpuscular Hemoglobin [place] ([facility]) mean corpuscular volume 91.1 fL 80.0-96.0 normal Mean Corpusc ular Volume [place] ([facility]) platelet count, automated 118 10 150-450 Below low [place] l Platelet Count, Automated [facility]) mean corpuscular HGB conc 35.3 g/dL 32.0-36.5 normal Mean Corpu scular HGB Conc [place] ([facility]) red cell distribution width 17.7 % 11.5-14.5 Above high no rmal Red Cell Distribution Width [place] ([facility]) nucleated red blood cell % 0.0 % 0-0 normal Nucleated Red Blood Cell % [place] ([facility]) ID Date Data Source [id number] 08/10/2020 07:19:00 AM EDT [place] ([facility]) Name Value Range Interpretation Code Description Data Julia rce(s) Supporting Document(s) glucose, fasting 130 mg/dL 70-100 Above high normal Glucose, Fas ting [place] ([facility]) blood urea nitrogen 34 mg/dL 7-18 Above high normal Blood Ure a Nitrogen [place] ([facility]) creatinine for GFR 1.49 mg/dL 0.55-1.30 Above high normal Creatinine for GFR [place] ([facility]) glomerular filtration rate >51 Below low normal Deidra merular Filtration Rate [place] ([facility]) sodium level 127 mEq/L 136-145 Below low normal Sodium Level [place] ([facility]) potassium serum 5.3 mEq/L 3.5-5.1 Above high normal Potassium Ser um [place] ([facility]) chloride level 93 mEq/L 98-107 Below low normal Chloride Level [place] ([facility]) anion gap 6 mEq/L 8-16 Below low normal Anion Gap [place] ( [facility]) carbon dioxide level 28 mEq/L 21-32 normal Carbon Dioxide Level [place] ([facility]) calcium level 9.1 mg/dL 8.5-10.1 normal Calcium Level [place] ( [facility]) ID Date Data Source [id number] 08/10/2020 07:19:00 AM EDT [place] ([facility]) Name Value Range Interpretation Code Description Data Julia rce(s) Supporting Document(s) AST/SGOT 51 U/L 7-37 Above high normal AST/SGOT [place] ([facility]) alkaline phosphatase 136 U/L 45-117 Above high normal Alkaline Phosphatase [place] ([facility]) ALT/SGPT 30 U/L 12-78 normal ALT/SGPT [place] ([facility]) bilirubin,direct 1.6 mg/dL 0.0-0.2 Above high normal Bilirubin,di rect [place] ([facility]) bilirubin,total 4.7 mg/dL 0.2-1.0 Above high normal Bilirubin,tot al [place] ([facility]) total protein 7.1 gm/dL 6.4-8.2 normal Total Protein [place] ( [facility]) albumin 3.8 gm/dL 3.2-5.2 normal Albumin [place] ([facility]) albumin/globulin ratio 1.2-2.2 normal Albumin/globu adam Ratio [place] ([facility]) ID Date Data Source [id number] 08/10/2020 07:19:00 AM EDT [facility]) Name Value Range Interpretation Code Description Data Julia rce(s) Supporting Document(s) sodium,random urine 16 mEq/L normal Sodium,random Ur ine [facility]) ID Date Data Source [id number] 08/10/2020 07:19:00 AM EDT [facility]) Name Value Range Interpretation Code Description Data Julia rce(s) Supporting Document(s) creatinine,random urine 118.0 mg/dL normal Creatinine, random Urine [facility]) ID Date Data Source [id number] 08/10/2020 07:19:00 AM EDT [facility]) Name Value Range Interpretation Code Description Data Julia rce(s) Supporting Document(s) white blood count 8.6 10 4.0-10.0 normal White Blood Count [place] ([facility]) hemoglobin 10.1 g/dL 12.0-15.5 Below low normal Hemoglobin [place] ( [facility]) red blood count 3.14 10 4.00-5.40 Below low normal Red Blood Coun t [place] ([facility]) mean corpuscular volume 91.1 fL 80.0-96.0 normal Mean Corpusc ular Volume [place] ([facility]) hematocrit 28.6 % 36.0-47.0 Below low normal Hematocrit [place] ( [facility]) mean corpuscular hemoglobin 32.2 pg 27.0-33.0 normal Mean Corpuscular Hemoglobin [place] ([facility]) mean corpuscular HGB conc 35.3 g/dL 32.0-36.5 normal Mean Corpu scular HGB Conc [place] ([facility]) red cell distribution width 17.7 % 11.5-14.5 Above high no rmal Red Cell Distribution Width [place] ([facility]) platelet count, automated 118 10 150-450 Below low denice l Platelet Count, Automated [place] ([facility]) nucleated red blood cell % 0.0 % 0-0 normal Nucleated Red Blood Cell % [place] ([facility]) ID Date Data Source [id number] 08/10/2020 07:19:00 AM EDT [place] ([facility]) Name Value Range Interpretation Code Description Data Julia rce(s) Supporting Document(s) glucose, fasting 130 mg/dL 70-100 Above high normal Glucose, Fas ting [place] ([facility]) blood urea nitrogen 34 mg/dL 7-18 Above high normal Blood Ure a Nitrogen [place] ([facility]) creatinine for GFR 1.49 mg/dL 0.55-1.30 Above high normal Creatinine for GFR [place] ([facility]) glomerular filtration rate >51 Below low normal Deidra merular Filtration Rate [place] ([facility]) carbon dioxide level 28 mEq/L 21-32 normal Carbon Dioxide Level [place] ([facility]) chloride level 93 mEq/L 98-107 Below low normal Chloride Level [place] ([facility]) sodium level 127 mEq/L 136-145 Below low normal Sodium Level [place] ([facility]) potassium serum 5.3 mEq/L 3.5-5.1 Above high normal Potassium Ser um [place] ([facility]) anion gap 6 mEq/L 8-16 Below low normal Anion Gap [place] ( [facility]) calcium level 9.1 mg/dL 8.5-10.1 normal Calcium Level [place] ( [facility]) ID Date Data Source [id number] 08/10/2020 07:19:00 AM EDT [place] ([facility]) Name Value Range Interpretation Code Description Data Julia rce(s) Supporting Document(s) AST/SGOT 51 U/L 7-37 Above high normal AST/SGOT [place] ([facility]) ALT/SGPT 30 U/L 12-78 normal ALT/SGPT [place] ([facility]) bilirubin,total 4.7 mg/dL 0.2-1.0 Above high normal Bilirubin,tot al [place] ([facility]) alkaline phosphatase 136 U/L 45-117 Above high normal Alkaline Phosphatase [place] ([facility]) bilirubin,direct 1.6 mg/dL 0.0-0.2 Above high normal Bilirubin,di rect [place] ([facility]) albumin/globulin ratio 1.2-2.2 normal Albumin/globu adam Ratio [place] ([facility]) albumin 3.8 gm/dL 3.2-5.2 normal Albumin [place] ([facility]) total protein 7.1 gm/dL 6.4-8.2 normal Total Protein [place] ( [facility]) ID Date Data Source [id number] 08/10/2020 07:19:00 AM EDT [place] ([facility]) Name Value Range Interpretation Code Description Data Julia rce(s) Supporting Document(s) sodium,random urine 16 mEq/L normal Sodium,random Ur ine [place] ([facility]) ID Date Data Source [id number] 08/10/2020 07:19:00 AM EDT [place] ([facility]) Name Value Range Interpretation Code Description Data Julia rce(s) Supporting Document(s) creatinine,random urine 118.0 mg/dL normal Creatinine, random Urine [place] ([facility]) ID Date Data Source [id number] 08/10/2020 07:19:00 AM EDT [facility]) Name Value Range Interpretation Code Description Data Julia rce(s) Supporting Document(s) white blood count 8.6 10 4.0-10.0 normal White Blood Count [place] ([facility]) hemoglobin 10.1 g/dL 12.0-15.5 Below low normal Hemoglobin [place] ( [facility]) red blood count 3.14 10 4.00-5.40 Below low normal Red Blood Coun t [place] ([facility]) hematocrit 28.6 % 36.0-47.0 Below low normal Hematocrit [place] ( [facility]) mean corpuscular volume 91.1 fL 80.0-96.0 normal Mean Corpusc ular Volume [place] ([facility]) mean corpuscular hemoglobin 32.2 pg 27.0-33.0 normal Mean Corpuscular Hemoglobin [place] ([facility]) mean corpuscular HGB conc 35.3 g/dL 32.0-36.5 normal Mean Corpu scular HGB Conc [place] ([facility]) red cell distribution width 17.7 % 11.5-14.5 Above high no rmal Red Cell Distribution Width [place] ([facility]) platelet count, automated 118 10 150-450 Below low denice l Platelet Count, Automated [place] ([facility]) nucleated red blood cell % 0.0 % 0-0 normal Nucleated Red Blood Cell % [place] ([facility]) ID Date Data Source [id number] 08/09/2020 12:28:00 PM EDT [place] ([facility]) Name Value Range Interpretation Code Description Data Julia rce(s) Supporting Document(s) albumin, body fluid 0.7 g/dL not established normal Albumin, Julien dy Fluid [place] ([facility]) source, body fluid albumin ascites normal Source, B jamil Fluid Albumin [facility]) ID Date Data Source [id number] 08/09/2020 12:28:00 PM EDT [facility]) Name Value Range Interpretation Code Description Data Julia rce(s) Supporting Document(s) total protein, body fluid 1.3 g/dL not established normal Total Protein, Body Fluid [place] ([facility]) source, body fluid tot protein ascites normal Sourc e, Body Fluid Tot Protein [facility]) ID Date Data Source [id number] 08/09/2020 12:28:00 PM EDT [facility]) Name Value Range Interpretation Code Description Data Julia rce(s) Supporting Document(s) source, body fluid ascites normal Source, Body Flui d [place] ([facility]) appearance, body fluid cloudy clear normal Appearance, B jamil Fluid [place] ([facility]) ascites fL color yellow colorless normal Ascites fL Color AT [facility] ([facility]) WBC body fluid 152 /uL 0-10 Above high normal WBC Body Fluid [place] ([facility]) bf mononuclear cell % 96.7 % 0-0 Above high normal Bf [place] nuclear Cell % [place] ([facility]) RBC body fluid 3 10 <2 normal RBC Body Fluid [place] ([facility]) bf polymorphonuclear cell % 3.3 % 0-0 Above high no rmal Bf Polymorphonuclear Cell % [facility]) ID Date Data Source [id number] 08/09/2020 12:28:00 PM EDT [facility]) Name Value Range Interpretation Code Description Data Julia rce(s) Supporting Document(s) source, body fluid ascites normal Source, Body Flui d [place] ([facility]) appearance, body fluid cloudy clear normal Appearance, B jamil Fluid [place] ([facility]) ascites fL color yellow colorless normal Ascites fL Color [place] ([facility]) WBC body fluid 152 /uL 0-10 Above high normal WBC Body Fluid [place] ([facility]) RBC body fluid 3 10 <2 normal RBC Body Fluid [place] ([facility]) bf polymorphonuclear cell % 3.3 % 0-0 Above high no rmal Bf Polymorphonuclear Cell % [place] ([facility]) bf mononuclear cell % 96.7 % 0-0 Above high normal Bf [place] nuclear Cell % [place] ([facility]) ID Date Data Source [id number] 08/09/2020 12:28:00 PM EDT [place] ([facility]) Name Value Range Interpretation Code Description Data Julia rce(s) Supporting Document(s) source, body fluid albumin ascites normal Source, B jamil Fluid Albumin [place] ([facility]) albumin, body fluid 0.7 g/dL not established normal Albumin, Julien dy Fluid [place] ([facility]) ID Date Data Source [id number] 08/09/2020 12:28:00 PM EDT [facility]) Name Value Range Interpretation Code Description Data Julia rce(s) Supporting Document(s) source, body fluid tot protein ascites normal Sourc e, Body Fluid Tot Protein [place] ([facility]) total protein, body fluid 1.3 g/dL not established normal Total Protein, Body Fluid [place] ([facility]) ID Date Data Source [id number] 08/09/2020 12:28:00 PM EDT [place] ([facility]) Name Value Range Interpretation Code Description Data Julia rce(s) Supporting Document(s) ascites fL color yellow colorless normal Ascites fL Color AT [facility] ([facility]) source, body fluid ascites normal Source, Body Flui d [place] ([facility]) WBC body fluid 152 /uL 0-10 Above high normal WBC Body Fluid [place] ([facility]) appearance, body fluid cloudy clear normal Appearance, B jamil Fluid [place] ([facility]) RBC body fluid 3 10 <2 normal RBC Body Fluid [place] ([facility]) bf mononuclear cell % 96.7 % 0-0 Above high normal Bf [place] nuclear Cell % [place] ([facility]) bf polymorphonuclear cell % 3.3 % 0-0 Above high no rmal Bf Polymorphonuclear Cell % [place] ([facility]) ID Date Data Source [id number] 08/09/2020 12:28:00 PM EDT [place] ([facility]) Name Value Range Interpretation Code Description Data Julia rce(s) Supporting Document(s) albumin, body fluid 0.7 g/dL not established normal Albumin, Julien dy Fluid [place] ([facility]) source, body fluid albumin ascites normal Source, B jamil Fluid Albumin [place] ([facility]) ID Date Data Source [id number] 08/09/2020 12:28:00 PM EDT [place] ([facility]) Name Value Range Interpretation Code Description Data Julia rce(s) Supporting Document(s) source, body fluid tot protein ascites normal Sourc e, Body Fluid Tot Protein [place] ([facility]) total protein, body fluid 1.3 g/dL not established normal Total Protein, Body Fluid [place] ([facility]) ID Date Data Source [id number] 08/09/2020 12:28:00 PM EDT [place] ([facility]) Name Value Range Interpretation Code Description Data Julia rce(s) Supporting Document(s) ascites fL color yellow colorless normal Ascites fL Color AT [place] ([facility]) source, body fluid ascites normal Source, Body Flui d [place] ([facility]) RBC body fluid 3 10 <2 normal RBC Body Fluid [place] ([facility]) appearance, body fluid cloudy clear normal Appearance, B jamil Fluid [place] ([facility]) WBC body fluid 152 /uL 0-10 Above high normal WBC Body Fluid [place] ([facility]) bf polymorphonuclear cell % 3.3 % 0-0 Above high no rmal Bf Polymorphonuclear Cell % [place] ([facility]) bf mononuclear cell % 96.7 % 0-0 Above high normal Bf [place] nuclear Cell % [place] ([facility]) ID Date Data Source [id number] 08/09/2020 12:28:00 PM EDT [facility]) Name Value Range Interpretation Code Description Data Julia rce(s) Supporting Document(s) source, body fluid albumin ascites normal Source, B jamil Fluid Albumin [place] ([facility]) albumin, body fluid 0.7 g/dL not established normal Albumin, Julien dy Fluid [place] ([facility]) ID Date Data Source [id number] 08/09/2020 12:28:00 PM EDT [place] ([facility]) Name Value Range Interpretation Code Description Data Julia rce(s) Supporting Document(s) source, body fluid tot protein ascites normal Sourc e, Body Fluid Tot Protein [place] ([facility]) total protein, body fluid 1.3 g/dL not established normal Total Protein, Body Fluid [place] ([facility]) ID Date Data Source [id number] 08/09/2020 12:03:00 PM EDT [place] ([facility]) Name Value Range Interpretation Code Description Data Julia rce(s) Supporting Document(s) albumin 25% transfused product: albumin 25% count: 4 Albumin 25% [place] ([facility]) ID Date Data Source [id number] 08/09/2020 12:03:00 [facility] Name Value Range Interpretation Code Description Data Julia rce(s) Supporting Document(s) albumin 25% transfused product: albumin 25% count: 4 Albumin 25% [place] ([facility]) ID Date Data Source [id number] 08/09/2020 12:03:00 PM EDT [place] ([facility]) Name Value Range Interpretation Code Description Data Julia rce(s) Supporting Document(s) albumin 25% transfused product: albumin 25% count: 4 Albumin 25% [place] ([facility]) ID Date Data Source [id number] 08/09/2020 12:03:00 PM EDT [place] ([facility]) Name Value Range Interpretation Code Description Data Julia rce(s) Supporting Document(s) albumin 25% transfused product: albumin 25% count: 4 Albumin 25% [place] ([facility]) ID Date Data Source [id number] 08/02/2020 12:40:00 PM EDT [place] ([facility]) Name Value Range Interpretation Code Description Data Julia rce(s) Supporting Document(s) source, body fluid albumin ascites normal Source, B jamil Fluid Albumin [place] ([facility]) albumin, body fluid 0.7 g/dL not established normal Albumin, Julien dy Fluid [place] ([facility]) ID Date Data Source [id number] 08/02/2020 12:40:00 PM EDT [place] ([facility]) Name Value Range Interpretation Code Description Data Julia rce(s) Supporting Document(s) total protein, body fluid 1.2 g/dL not established normal Total Protein, Body Fluid [place] ([facility]) source, body fluid tot protein ascites normal Sourc e, Body Fluid Tot Protein [place] ([facility]) ID Date Data Source [id number] 08/02/2020 12:40:00 PM EDT [place] ([facility]) Name Value Range Interpretation Code Description Data Julia rce(s) Supporting Document(s) source, body fluid ascites normal Source, Body Flui d [place] ([facility]) WBC body fluid 149 /uL 0-10 Above high normal WBC Body Fluid [place] ([facility]) appearance, body fluid cloudy clear normal Appearance, B jamil Fluid [place] ([facility]) ascites fL color yellow colorless normal Ascites fL Color [place] ([facility]) bf mononuclear cell % 97.3 % 0-0 Above high normal Bf [place] nuclear Cell % [place] ([facility]) RBC body fluid < 2 <2 normal RBC Body Fluid [place] ([facility]) bf polymorphonuclear cell % 2.7 % 0-0 Above high no rmal Bf Polymorphonuclear Cell % [place] ([facility]) ID Date Data Source [id number] 08/02/2020 12:40:00 PM EDT [facility]) Name Value Range Interpretation Code Description Data Julia rce(s) Supporting Document(s) albumin, body fluid 0.7 g/dL not established normal Albumin, Julien dy Fluid [place] ([facility]) source, body fluid albumin ascites normal Source, B jamil Fluid Albumin [facility]) ID Date Data Source [id number] 08/02/2020 12:40:00 PM EDT [facility]) Name Value Range Interpretation Code Description Data Julia rce(s) Supporting Document(s) total protein, body fluid 1.2 g/dL not established normal Total Protein, Body Fluid [facility]) source, body fluid tot protein ascites normal Sourc e, Body Fluid Tot Protein [facility]) ID Date Data Source [id number] 08/02/2020 12:40:00 PM EDT [facility]) Name Value Range Interpretation Code Description Data Julia rce(s) Supporting Document(s) source, body fluid ascites normal Source, Body Flui d [place] ([facility]) ascites fL color yellow colorless normal Ascites fL Color [place] ([facility]) WBC body fluid 149 /uL 0-10 Above high normal WBC Body Fluid [facility]) appearance, body fluid cloudy clear normal Appearance, B jamil Fluid [place] ([facility]) bf mononuclear cell % 97.3 % 0-0 Above high normal Bf [place] nuclear Cell % [place] ([facility]) RBC body fluid < 2 <2 normal RBC Body Fluid [place] ([facility]) bf polymorphonuclear cell % 2.7 % 0-0 Above high no rmal Bf Polymorphonuclear Cell % [facility]) ID Date Data Source [id number] 08/02/2020 12:40:00 PM EDT [place] ([facility]) Name Value Range Interpretation Code Description Data Julia rce(s) Supporting Document(s) source, body fluid albumin ascites normal Source, B jamil Fluid Albumin [place] ([facility]) albumin, body fluid 0.7 g/dL not established normal Albumin, Julien dy Fluid [place] ([facility]) ID Date Data Source [id number] 08/02/2020 12:40:00 PM EDT [place] ([facility]) Name Value Range Interpretation Code Description Data Julia rce(s) Supporting Document(s) total protein, body fluid 1.2 g/dL not established normal Total Protein, Body Fluid [place] ([facility]) source, body fluid tot protein ascites normal Sourc e, Body Fluid Tot Protein [facility]) ID Date Data Source [id number] 08/02/2020 12:40:00 PM EDT [place] ([facility]) Name Value Range Interpretation Code Description Data Julia rce(s) Supporting Document(s) source, body fluid ascites normal Source, Body Flui d [place] ([facility]) appearance, body fluid cloudy clear normal Appearance, B jamil Fluid [place] ([facility]) WBC body fluid 149 /uL 0-10 Above high normal WBC Body Fluid [place] ([facility]) ascites fL color yellow colorless normal Ascites fL Color [place] ([facility]) bf mononuclear cell % 97.3 % 0-0 Above high normal Bf [place] nuclear Cell % [place] ([facility]) bf polymorphonuclear cell % 2.7 % 0-0 Above high no rmal Bf Polymorphonuclear Cell % [place] ([facility]) RBC body fluid < 2 <2 normal RBC Body Fluid [facility]) ID Date Data Source [id number] 08/02/2020 12:40:00 PM EDT [facility]) Name Value Range Interpretation Code Description Data Julia rce(s) Supporting Document(s) source, body fluid albumin ascites normal Source, B jamil Fluid Albumin [place] ([facility]) albumin, body fluid 0.7 g/dL not established normal Albumin, Julien dy Fluid [place] ([facility]) ID Date Data Source [id number] 08/02/2020 12:40:00 PM EDT [place] ([facility]) Name Value Range Interpretation Code Description Data Julia rce(s) Supporting Document(s) source, body fluid tot protein ascites normal Sourc e, Body Fluid Tot Protein [place] ([facility]) total protein, body fluid 1.2 g/dL not established normal Total Protein, Body Fluid [place] ([facility]) ID Date Data Source [id number] 08/02/2020 12:40:00 PM EDT [place] ([facility]) Name Value Range Interpretation Code Description Data Julia rce(s) Supporting Document(s) appearance, body fluid cloudy clear normal Appearance, B jamil Fluid [place] ([facility]) WBC body fluid 149 /uL 0-10 Above high normal WBC Body Fluid [place] ([facility]) ascites fL color yellow colorless normal Ascites fL Color [place] ([facility]) source, body fluid ascites normal Source, Body Flui d [place] ([facility]) bf mononuclear cell % 97.3 % 0-0 Above high normal Bf [place] nuclear Cell % [place] ([facility]) RBC body fluid < 2 <2 normal RBC Body Fluid [place] ([facility]) bf polymorphonuclear cell % 2.7 % 0-0 Above high no rmal Bf Polymorphonuclear Cell % [place] ([facility]) ID Date Data Source [id number] 08/02/2020 08:27:00 AM EDT [place] ([facility]) Name Value Range Interpretation Code Description Data Julia rce(s) Supporting Document(s) albumin 25% transfused product: albumin 25% count: 4 Albumin 25% [place] ([facility]) ID Date Data Source [id number] 08/02/2020 08:27:00 AM EDT [place] ([facility]) Name Value Range Interpretation Code Description Data Julia rce(s) Supporting Document(s) albumin 25% transfused product: albumin 25% count: 4 Albumin 25% [place] ([facility]) ID Date Data Source [id number] 08/02/2020 08:27:00 AM EDT [place] ([facility]) Name Value Range Interpretation Code Description Data Julia rce(s) Supporting Document(s) albumin 25% transfused product: albumin 25% count: 4 Albumin 25% [place] ([facility]) ID Date Data Source [id number] 08/02/2020 08:27:00 AM EDT [place] ([facility]) Name Value Range Interpretation Code Description Data Julia rce(s) Supporting Document(s) albumin 25% transfused product: albumin 25% count: 4 Albumin 25% [place] [facility] [facility] er) ID Date Data Source [id number] 06/28/2020 11:28:00 AM EDT [facility] Name Value Range Interpretation Code Description Data Julia rce(s) Supporting Document(s) HCT 32.4 % 36.0-47.0 L [facility] HGB 11.5 g/dL 12.0-15.5 L [facility] MCH 35.5 G/DL pg 32.0-36.5 N [facility] MCHC 35.1 PG % 27.0-33.0 H [facility] PLATELETS 137 10 10*3/mm3 150-450 L [facility] RBC 3.28 10 10*6/mm3 4.00-5.40 L [facility] RDW 16.4 % 11.5-14.5 H [facility] WBC TOTAL 7.2 4.0-10.0 N [facility] ID Date Data Source [id number] 06/28/2020 11:28:00 AM EDT [facility] Name Value Range Interpretation Code Description Data Julia rce(s) Supporting Document(s) BG FASTING 104 mg/dL 70-100 H [facility] ID Date Data Source [id number] 06/11/2020 09:54:18 AM EDT [facility] Measurements & CalculationsHeight: 61 inches (5 [...] or Preferred Language: EnglishFamily and Home Address: [address] [place] [address] What is your housing situation today? I have housing Are you worried about losing your housing? NoMoney and Resources In the past year, have you or any family members you live with been unable to get any of the following when it was really needed? Denies Insecurity: food, utilities, clothing, child welfare social worker, phone, legal services, otherWithin the past year [...] during this visit, including review of any aedk-lav-qrzhyep medications, herbal therapies, and/or supplements.Allergy ReviewAllergy List [...] adult medical examination with abnormal findings (ICD-V70.0) (CFC82-K74.01) Assessment: Instructions: Recommend annual medical appointments. Recommend routine dental and vision care. Recommend influenza vaccines annually and tetanus boosters every 10 years. Please call when you are ready to schedule mammogram and pap smear.Assessed:Alcoholic cirrhosis of liver with ascites (ICD-571.2) (ICD10- K70.31) Assessment: Instructions: Continue per GI.Edema of lower extremity (ICD-782.3) (DMG11-G51.0) Assessment: Instructions: Stable with current medications. 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) (GKL48-G64.11) Assessment: Instructions: Continue remaining sober.Insomnia, unspecified (ZLG23-Q18.00) Assessment: Instructions: Stable with hydroxyzine 2 tablets at bedtime.Assessment not SavedEncounter for immunization (FSN14-H15): Patient Instructions/Care Plan: Encounter for general adult [...] po qhsAllergies:RAMELTEON (RAMELTEON) (Severe)Orders:Preventive, Est, (4064) [CPT- 95260] Follow-Up Return to clinic: in 3 months for follow upAdditional Follow- Up: cirrhosisClinical Visit Summary Declined Name Value Range Interpretation Code Description Data Julia rce(s) Supporting Document(s) ID Date Data Source [id number] 05/10/2020 09:33:44 AM EDT [facility] Measurements & CalculationsHeight: 61 inches (5 [...] needed paracentesis through GI, states she calls [facility] when she feels her ascites is [...] during this visit, including review of any zaoa-xlo-ykftupb medications, herbal therapies, and/or supplements.Allergy ReviewAllergy List [...] & Plan Problems:Added: Encounter for immunization (ICD-V05.9) (MUM83-S20)Assessed:Alcoholic cirrhosis of liver with ascites (ICD-571.2) (FOD51-B52.31) Assessment: Instructions: Continue per Dr. Lechuga's office.Alcohol abuse, in remission (ICD-305.03) (ICD10- F10.11) Assessment: Instructions: Continue remaining sober.Edema of lower extremity (ICD-782.3) (KPL40-Q71.0) Assessment: Instructions: Resolved with current treatment.Insomnia, unspecified (XYR31-I73.00) Assessment: Adverse reaction with Ramelteon. Instructions: Start hydroxyzine as prescribed. Follow-up in 1 month. Call us with any concerns.Assessment not SavedEncounter for immunization (MEU46-R89): Instructions: Shingrix sent to pharmacy.Patient Instructions/Care Plan: [...] 1 Method: ElectronicChanged:From: ORAL LACTULOSE SOLUTION Qty: [id number] To: LACTULOSE 10 GM/15ML ORAL SOLUTION-Take 15mLs per dose, 1-2 times daily (adjust dose to get at least 2 soft stools per day)From: ORAL FUROSEMIDE 40 MG ORAL TABLET Qty: [id number] To: FUROSEMIDE 40 MG ORAL TABLET-take 1.5 tablet in the morning and 1 tablet in the eveningFrom: ORAL SPIRONOLACTONE 50 MG ORAL TABLET Qty: [id number] To: SPIRONOLACTONE 50 MG ORAL TABLET-Take 3 tablets po QAM and 2 tablets po QPM (at least 10 hrs apart) dailyFrom: ORAL FOLIC ACID 1 MG ORAL TABLET Qty: [id number] To: FOLIC ACID 1 MG ORAL TABLET-take 1 tablet po dailyAllergies:RAMELTEON (RAMELTEON) (Severe)Information on new prescriptions provided to patient.Orders:Adult - Ofc Vst, EST, Level III [CPT-68100] Follow-Up Return to clinic: in 30 days for preventive care visitAdditional Follow-Up: annual PEClinical Visit Summary Completed Name Value Range Interpretation Code Description Data Julia rce(s) Supporting Document(s) ID Date Data Source [id number] 05/01/2020 12:00:00 PM EDT [facility] ([facility], ) Name Value Range Interpretation Code Description Data Julia rce(s) Supporting Document(s) Sodium [Moles/volume] in Urine 11 meq/L N ormal (applies to non-numeric results) [facility] ([facility], ) <content>note:<nlbl:demographic_changed> </content>
<content></content> Creatinine [Mass/volume] in Urine 224.0 mg/dL Normal (applies to non-numeric results) [facility] ([facility]) <content>note:<nlbl:demographic_changed> </content>
<content></content> ID Date Data Source [id number] 05/01/2020 12:00:00 PM EDT [facility] ([facility]) Name Value Range Interpretation Code Description Data Julia rce(s) Supporting Document(s) Glucose, Fasting 110 mg/dL 70-100 Above high normal [facility] Blood Urea Nitrogen 11 mg/dL 7-18 Normal (applies to non-nume zora results) [facility] ([facility]) Creatinine For GFR 0.76 mg/dL 0.55-1.30 Normal (applies to non -numeric results) [facility] ([facility]) Potassium Serum 4.5 meq/L 3.5-5.1 Normal (applies to non-numeric results) [facility] ([facility]) Glomerular Filtration Rate Laboratory test result Normal (applies to non- numeric results) [facility] ([facility]) <content>Units are mL/min/1.73 m2</content>
<content></content>
<content>Chronic Kidney Disease Staging per NKF:</content>
<content></content>
<content>Stage I & II GFR >=60 Normal to Mildly Decreased</content>
<content>Stage III GFR 30- 59 Moderately Decreased</content>
<content>Stage IV GFR 15-29 Severely Decreased</content>
<content>Stage V GFR <15 Very Little GFR Left</content>
<content>ESRD GFR <15 on HEALTH PSYCHOLOGIST</content>
<content></content> Sodium Level 132 meq/L 136-145 Below low normal [facility] ([facility]) Chloride Level 98 meq/L 98-107 Normal (applies to non-numeric r esults) [facility] ([facility]) Carbon Dioxide Level 32 meq/L 21-32 Normal (applies to non-num reynaldo results) [facility] ([facility]) Anion Gap 2 meq/L 8-16 Below low normal [facility] ( [facility]) Calcium Level 8.4 mg/dL 8.5-10.1 Below low normal [facility] ([facility]) ID Date Data Source [id number] 04/18/2020 12:25:00 PM EDT [facility] ([facility]) Name Value Range Interpretation Code Description Data Julia rce(s) Supporting Document(s) Gram Stain Laboratory test result Normal (applies to non-n umeric results) [facility] ([facility]) NO CELLS SEEN NO ORGANISMS SEEN Body Fluid Culture Laboratory test result Normal (applies to non-numeric results) [facility] ([facility]) FULL REPORT IN LAB NOTES ([facility] ). ORGANISM 1: BACILLUS SP., NOT ANTHRACIS QUANTITY OF GROWTH MODERATE The majority of Bacillus species have little or no pathogenic potential (common environmental contaminant) and are rarely associated with disease in humans. ORGANISM 1: BACILLUS SP., NOT ANTHRACIS ID Date Data Source [id number] 04/18/2020 09:57:00 AM EDT [facility] ([facility]) Name Value Range Interpretation Code Description Data Julia rce(s) Supporting Document(s) Albumin 25% Laboratory test result M [facility] ([facility]) TRANSFUSED PRODUCT: ALBUMIN 25% COUNT: 4 ID Date Data Source [id number] 04/18/2020 09:51:00 AM EDT [facility] ([facility]) Name Value Range Interpretation Code Description Data Julia rce(s) Supporting Document(s) Albumin, Body Fluid 0.3 g/dL Normal (applies to non-nume zora results) [facility] ([facility]) Source, Body Fluid Albumin Laboratory test result Normal (applies to non- numeric results) [facility] ([facility]) ID Date Data Source [id number] 04/18/2020 09:51:00 AM EDT [facility] ([facility]) Name Value Range Interpretation Code Description Data Julia rce(s) Supporting Document(s) Source, Body Fluid Tot Protein Laboratory test result Normal (applies to non- numeric results) [facility] ([facility]) Total Protein, Body Fluid 0.9 g/dL Normal (applies to no n-numeric results) [facility]) ID Date Data Source [id number] 04/18/2020 09:51:00 AM EDT [facility]) Name Value Range Interpretation Code Description Data Julia rce(s) Supporting Document(s) Source, Body Fluid Laboratory test result Normal (applies to non-numeric results) [facility]) Ascites FL Color Laboratory test result Normal ( applies to non-numeric results) [facility]) WBC Body Fluid 94 /uL 0-10 Above high normal [facility]) Appearance, Body Fluid Laboratory test result No rmal (applies to non-numeric results) [facility] ([facility]) BF Polymorphonuclear Cell % 10.7 % 0-0 Above high normal [facility] ([facility]) BF Mononuclear Cell % 89.3 % 0-0 Above high normal [facility] ([facility]) RBC Body Fluid Laboratory test result Normal (applies to non-numeric results) [facility]) ID Date Data Source [id number] 04/11/2020 09:04:[facility] Name Value Range Interpretation Code Description Data Julia rce(s) Supporting Document(s) Phosphate [Moles/volume] in Serum or Plasma 2.9 mg/dL 2.5- 4.9 Normal (applies to non-numeric results) [facility] ) <content>note:<nlbl:demographic_changed> </content>
<content></content> Magnesium [Mass/volume] in Serum or Plasma 1.7 mg/dL 1.8-2.4 Belo w low normal [facility] ([facility]) <content>note:<nlbl:demographic_changed> </content>
<content></content> Sodium [Moles/volume] in Urine Laboratory test result Normal (applies to non- numeric results) [facility]) <content>note:<nlbl:demographic_changed> </content>
<content></content> Creatinine [Mass/volume] in Urine 249.0 mg/dL Normal (applies to non-numeric results) [facility]) <content>note:<nlbl:demographic_changed> </content>
<content></content> ID Date Data Source [id number] 04/11/2020 09:04:00 AM EDT [facility] ([facility]) Name Value Range Interpretation Code Description Data Julia rce(s) Supporting Document(s) Glucose, Fasting 111 mg/dL 70-100 Above high normal M [facility] ([facility]) Creatinine For GFR 0.80 mg/dL 0.55-1.30 Normal (applies to non -numeric results) [facility] ([facility]) Blood Urea Nitrogen 11 mg/dL 7-18 Normal (applies to non-nume zora results) [facility] ([facility]) Glomerular Filtration Rate Laboratory test result Normal (applies to non- numeric results) [facility] ([facility]) <content>Units are mL/min/1.73 m2</content>
<content></content>
<content>Chronic Kidney Disease Staging per NKF:</content>
<content></content>
<content>Stage I & II GFR >=60 Normal to Mildly Decreased</content>
<content>Stage III GFR 30- 59 Moderately Decreased</content>
<content>Stage IV GFR 15-29 Severely Decreased</content>
<content>Stage V GFR <15 Very Little GFR Left</content>
<content>ESRD GFR <15 on HEALTH PSYCHOLOGIST</content>
<content></content> Sodium Level 130 meq/L 136-145 Below low normal [facility] ([facility]) Potassium Serum 4.0 meq/L 3.5-5.1 Normal (applies to non-numeric results) [facility] ([facility]) Anion Gap 6 meq/L 8-16 Below low normal [facility] ( [facility]) Carbon Dioxide Level 28 meq/L 21-32 Normal (applies to non-num reynaldo results) [facility] ([facility]) Chloride Level 96 meq/L 98-107 Below low normal [facility] ([facility]) Calcium Level 8.4 mg/dL 8.5-10.1 Below low normal [facility] ([facility]) ID Date Data Source [id number] 04/11/2020 09:04:00 AM EDT [facility] Name Value Range Interpretation Code Description Data Julia rce(s) Supporting Document(s) BG FASTING 111 mg/dL 70-100 H [facility] ID Date Data Source [id number] 04/09/2020 09:33:58 AM EDT [facility] Measurements & CalculationsHeight: 61 inches 154.94 [...] presents for ER follow-up.Pt was seen at [facility] ER 04/05/2020 for ascites. Pt had [...] during this visit, including review of any xqsd-qkx-fqcxcsi medications, herbal therapies, and/or supplements.Allergy ReviewAllergy List [...] is? GoodAssessment & Plan Problems:Added: Insomnia, unspecified (JBG94-Y31.00) Assessment: Instructions: Monitor. Significant life adjustments with [...] Continue current medications.Alcohol abuse, in remission (ICD-305.03) (PSR31-L39.11) Assessment: Instructions: Continue remaining sober.Patient Instructions/Care Plan: [...] ORAL SPIRONOLACTONE 25 MG ORAL TABLET Qty: [id number] To: SPIRONOLACTONE 50 MG ORAL TABLET-Take 2 tablets po dailyFrom: ORAL LASIX 20 MG ORAL TABLET Qty: [id number] To: FUROSEMIDE 40 MG ORAL TABLET-take 1 tablet po BIDAllergies:No Known Allergies (updated 04/09/2020) Orders:Adult - Ofc Vst, EST, Level III [CPT-38427] Follow-Up Return to clinic: in 2 weeks for follow upClinical Visit Summary Declined Name Value Range Interpretation Code Description Data Julia rce(s) Supporting Document(s) ID Date Data Source [id number] 04/05/2020 08:41:00 AM EDT [facility] Name Value Range Interpretation Code Description Data Julia rce(s) Supporting Document(s) HCT 36.8 % 36.0-47.0 N [facility] HGB 13.1 g/dL 12.0-15.5 N [facility] MCH 35.6 G/DL pg 32.0-36.5 [facility] MCHC 36.0 PG % 27.0-33.0 H [facility] PLATELETS 121 10 10*3/mm3 150-450 L [facility] RBC 3.64 10 10*6/mm3 4.00-5.40 L [facility] RDW 14.7 % 11.5-14.5 H [facility] WBC TOTAL 7.7 4.0-10.0 N [facility] ID Date Data Source [id number] 04/05/2020 08:41:00 AM EDT [facility] Name Value Range Interpretation Code Description Data Julia rce(s) Supporting Document(s) BG FASTING 98 mg/dL 70-100 N [facility] ID Date Data Source [id number] 03/27/2020 01:05:02 PM EDT [facility] Measurements & CalculationsHeight: 61 inches (5 [...] been [facility] the [facility] date reported today: 03/22/2020Have [...] for pain by an urgent care in [place], then over the next few weeks noted abdominal distention. She then went to another urgent care in [place] and was given a fluid pill and another unknown medication. A few weeks went by without i mprovement, so she went to [place] [facility]. [place] the provider was rude so she left without testing. Then she moved from [facility] to [facility]. She was seen by [facility] outpatient, then was referred to [facility] but she waited a few days. Self presented to [facility] 03/17/2020, then was transferred to [facility] due to ascites. She was admitted to [facility] 03/17/2020-03/22/2020. Pt states she had 7 liters [...] during this visit, including review of any pmfx-wxe-wfbtbxv medications, herbal therapies, and/or supplements.Allergy ReviewAllergy List [...] PoorAssessment & Plan Problems:Added: Tobacco user (ICD-305.1) (GBU59-W88.200)Alcoholic cirrhosis of liver with ascites (ICD- 571.2) (GBK97-P36.31) Assessment: Instructions: Severe ascites today despite medications. Recommend emergency room evaluation today, patient declines but agrees to report to [facility] ER by 0600 03/28/2020. Advised waiting was not the safest recommendation. Please call an ambulance for ANY change or worsening in symptoms.Edema of lower extremity (ICD-782.3) (DSM65-M76.0) Assessment: Instructions: Secondary to above. No medication adjustments due to immediate need for ER evalation with labs and further treatment.Alcohol abuse, in remission (ICD-305.03) (POG11-L72.11) Assessment: Instructions: Will need outpatient treatment, after her medical conditions are more stabilized.Patient Instructions/Care Plan: Alcoholic cirrhosis of liver with ascites: Severe ascites today despite medications. Recommend emergency room evaluation today, patient declines but agrees to report to [facility] ER by 0600 03/28/2020. Advised waiting [...] M20 20 MEQ ORAL TABLET EXTENDED RELEASELACTULOSE [id number] TABLET DELAYED RELEASELASIX 20 MG ORAL TABLETSPIRONOLACTONE 25 MG ORAL TABLETMUPIROCIN OINTMENTMedication Changes:Added: MUPIROCIN OINTMENT-bidSPIRONOLACTONE 25 MG ORAL TABLET-po dailyLASIX 20 MG ORAL TABLET-po [id number] TABLET DELAYED RELEASE-po bidLACTULOSE SOLUTION-30 ml po bidKLOR-CON M20 20 MEQ ORAL TABLET EXTENDED RELEASE-Take 1 tablet po dailyFOLIC ACID 1 MG ORAL TABLET-po dailyTHIAMINE HCL 100 MG ORAL TABLET-po dailyAllergies:No Known Allergies (updated 03/27/2020) Orders:Adult - Ofc Vst, EST, Level IV [CPT-05229] Follow-Up Return to clinic: as needed for follow upAdditional Follow-Up: ER follow-upClinical Visit Summary Completed Name Value Range Interpretation Code Description Data Julia rce(s) Supporting Document(s) ID Date Data Source [id number] 03/22/2020 05:54:00 AM EDT [facility] Name Value Range Interpretation Code Description Data Julia rce(s) Supporting Document(s) Sodium 135 mmol/L 137-145 Below low normal [facility] Potassium 3.5-5.1 Normal (applies to non-numeric resul ts) [facility] Chloride 102 mmol/L 98-112 Normal (applies to non-numeric resul ts) [facility] Carbon Dioxide CO2 22.0-33.0 Normal (applies to non-numer ic results) [facility] Anion Gap 4.0-11.0 Normal (applies to non-numeric resul ts) [facility] BUN 9 mg/dL 7-17 Normal (applies to non-numeric resul ts) [facility] Creatinine 0.70-1.20 Below low normal [facility] GFR >60 Normal (applies to non-numeric results) [facility] Result based on MDRD formula. Glucose Level 86 mg/dL 74-99 Normal (applies to non-numeric re sults) [facility] The reference range is only applicable w hen fasting. Calcium-Uncorrected 8.4-10.2 Below low normal [facility] Corrected Calcium 8.4-10.2 Normal (applies to non-numeri c results) [facility] Bilirubin,Total 0.2-1.3 Above high normal [facility] SGOT(AST) 91 U/L 14-36 Above high normal [facility] SGPT(ALT) 32 U/L 9-52 Normal (applies to non-numeric resul ts) [facility] Alkaline Phosphatase 120 U/L 38-126 Normal (applies to non-num reynaldo results) [facility] can increase Alkaline Phosp le vels up to 2 times the normal adult value. Normal values for children and adolescents are 2 to 3 times the normal adult value. Total Protein 6.3-8.2 Normal (applies to non-numeric re sults) [facility] Albumin 3.5-5.0 Below low normal [facility] ID Date Data Source [id number] 03/22/2020 05:54:00 AM EDT [facility] Name Value Range Interpretation Code Description Data Julia rce(s) Supporting Document(s) Bilirubin,Direct 0.0-0.3 Above high normal [facility] ID Date Data Source [id number] 03/22/2020 05:22:00 AM EDT [facility] Name Value Range Interpretation Code Description Data Julia rce(s) Supporting Document(s) White Blood Count 4.8-10.8 Normal (applies to non-numeri c results) [facility] Red Blood Count 3.68-5.22 Below low normal [facility] Hemoglobin 11.2-15.7 Normal (applies to non-numeric resul ts) [facility] Hematocrit 34.1-44.9 Normal (applies to non-numeric resul ts) [facility] Mean Corpuscular Volume 81-99 Above high normal [facility] Mean Corpuscular Hemoglobin 27.0-33.0 Above high normal [facility] Mean Corpuscular HGB Conc 32.0-36.0 Normal (applies to no n-numeric results) [facility] Red Cell Distribution Width 11.5-14.5 Above high normal [facility] Platelet Count 99 X10 3/uL 130-450 Below low normal [facility] Mean Platelet Volume 9.5-12.7 Normal (applies to non-num reynaldo results) [facility] Imm Grans% (AUTO) 0 % 0-2 Normal (applies to non-numeri c results) [facility] Neutrophils % (AUTO) 64 % 40-75 Normal (applies to non-num reynaldo results) [facility] Lymphocytes % (AUTO) 19 % 21-46 Below low normal [facility] Monocytes % (AUTO) 14 % 5-12 Above high normal [facility] Eosinophils % (AUTO) 3 % 1-5 Normal (applies to non-num reynaldo results) [facility] Basophils % (AUTO) 1 % 0-1 Normal (applies to non-numer ic results) [facility] Imm Grans# (AUTO) 0.0-0.5 Normal (applies to non-numeri c results) [facility] Neutrophils # (AUTO) 1.5-8.1 Normal (applies to non-num reynaldo results) [facility] Lymphocytes # (AUTO) 1.0-3.1 Normal (applies to non-num reynaldo results) [facility] Monocytes # (AUTO) 0.2-1.3 Normal (applies to non-numer ic results) [facility] Eosinophils# (AUTO) 0.0-0.5 Normal (applies to non-nume zora results) [facility] Basophils # (AUTO) 0.0-0.1 Normal (applies to non-numer ic results) [facility] ID Date Data Source [id number] 03/21/2020 10:18:00 AM EDT [facility] Name Value Range Interpretation Code Description Data Julia rce(s) Supporting Document(s) Sodium 134 mmol/L 137-145 Below low normal [facility] Potassium 3.5-5.1 Normal (applies to non-numeric resul ts) [facility] Chloride 101 mmol/L 98-112 Normal (applies to non-numeric resul ts) [facility] Carbon Dioxide CO2 22.0-33.0 Normal (applies to non-numer ic results) [facility] Anion Gap 4.0-11.[address] [facility] BUN 9 mg/dL 7-17 Normal (applies to non-numeric resul ts) [facility] Creatinine 0.70-1.20 Below low normal [facility] GFR >60 Normal (applies to non-numeric results) [facility] Result based on MDRD formula. Glucose Level 92 mg/dL 74-99 Normal (applies to non-numeric re sults) [facility] The reference range is only applicable w hen fasting. Calcium-Uncorrected 8.4-10.2 Below low normal [facility] Corrected Calcium 8.4-10.2 Normal (applies to non-numeri c results) [facility] Bilirubin,Total 0.2-1.3 Above high normal [facility] SGOT(AST) 78 U/L 14-36 Above high normal [facility] SGPT(ALT) 24 U/L 9-52 Normal (applies to non-numeric resul ts) [facility] Alkaline Phosphatase 108 U/L 38-126 Normal (applies to non-num reynaldo results) [facility] can increase Alkaline Phosp le vels up to 2 times the normal adult value. Normal values for children and adolescents are 2 to 3 times the normal adult value. Total Protein 6.3-8.2 Below low normal [facility] Albumin 3.5-5.[address] [facility] ID Date Data Source [id number] 03/21/2020 10:18:00 AM EDT [facility] Name Value Range Interpretation Code Description Data Julai rce(s) Supporting Document(s) Bilirubin,Direct 0.0-0.3 Above high normal [facility] ID Date Data Source [id number] 03/21/2020 09:37:00 AM EDT [facility] Name Value Range Interpretation Code Description Data Julia rce(s) Supporting Document(s) White Blood Count 4.8-10.8 Normal (applies to non-numeri c results) [facility] Red Blood Count 3.68-5.22 Below low normal [facility] Hemoglobin 11.2-15.7 Normal (applies to non-numeric resul ts) [facility] Hematocrit 34.1-44.9 Below low normal [facility] Mean Corpuscular Volume 81-99 Above high normal [facility] Mean Corpuscular Hemoglobin 27.0-33.0 Above high normal [facility] Mean Corpuscular HGB Conc 32.0-36.0 Normal (applies to no n-numeric results) [facility] Red Cell Distribution Width 11.5-14.5 Above high normal [facility] Platelet Count 94 X10 3/uL 130-450 Below low normal [facility] Mean Platelet Volume 9.5-12.7 Normal (applies to non-num reynaldo results) [facility] Imm Grans% (AUTO) 1 % 0-2 Normal (applies to non-numeri c results) [facility] Neutrophils % (AUTO) 66 % 40-75 Normal (applies to non-num reynaldo results) [facility] Lymphocytes % (AUTO) 16 % 21-46 Below low normal [facility] Monocytes % (AUTO) 15 % 5-12 Above high normal [facility] Eosinophils % (AUTO) 2 % 1-5 Normal (applies to non-num reynaldo results) [facility] Basophils % (AUTO) 1 % 0-1 Normal (applies to non-numer ic results) [facility] Imm Grans# (AUTO) 0.0-0.5 Normal (applies to non-numeri c results) [facility] Neutrophils # (AUTO) 1.5-8.1 Normal (applies to non-num reynaldo results) [facility] Lymphocytes # (AUTO) 1.0-3.1 Normal (applies to non-num reynaldo results) [facility] Monocytes # (AUTO) 0.2-1.3 Normal (applies to non-numer ic results) [facility] Eosinophils# (AUTO) 0.0-0.5 Normal (applies to non-nume zora results) [facility] Basophils # (AUTO) 0.0-0.1 Normal (applies to non-numer ic results) [facility] ID Date Data Source [id number] 03/20/2020 09:34:00 AM EDT [facility] Name Value Range Interpretation Code Description Data Julia rce(s) Supporting Document(s) Sodium 137 mmol/L 137-145 Normal (applies to non-numeric resul ts) [facility] Potassium 3.5-5.1 Normal (applies to non-numeric resul ts) [facility] Chloride 103 mmol/L 98-112 Normal (applies to non-numeric resul ts) [facility] Carbon Dioxide CO2 22.0-33.0 Normal (applies to non-numer ic results) [facility] Anion Gap 4.0-11.0 Normal (applies to non-numeric resul ts) [facility] BUN 10 mg/dL 7-17 Normal (applies to non-numeric resul ts) [facility] Creatinine 0.70-1.20 Below low normal [facility] GFR >60 Normal (applies to non-numeric results) [facility] Result based on MDRD formula. Glucose Level 110 mg/dL 74-99 Above high normal [facility] The reference range is only applicable w hen fasting. Calcium-Uncorrected 8.4-10.2 Below low normal [facility] Corrected Calcium 8.4-10.2 Normal (applies to non-numeri c results) [facility] Bilirubin,Total 0.2-1.3 Above high normal [facility] SGOT(AST) 58 U/L 14-36 Above high normal [facility] SGPT(ALT) 18 U/L 9-52 Normal (applies to non-numeric resul ts) [facility] Alkaline Phosphatase 99 U/L 38-126 Normal (applies to non-num reynaldo results) [facility] can increase Alkaline Phosp le vels up to 2 times the normal adult value. Normal values for children and adolescents are 2 to 3 times the normal adult value. Total Protein 6.3-8.2 Below low normal [facility] Albumin 3.5-5.0 Below low normal [facility] ID Date Data Source [id number] 03/20/2020 09:34:00 AM EDT [facility] Name Value Range Interpretation Code Description Data Julia rce(s) Supporting Document(s) Bilirubin,Direct 0.0-0.3 Above high normal [facility] ID Date Data Source [id number] 03/20/2020 09:20:00 AM T [facility] Name Value Range Interpretation Code Description Data Julia rce(s) Supporting Document(s) Ammonia 39 umol/L 11-32 Above high normal [facility] ID Date Data Source [id number] 03/20/2020 09:06:00 AM EDT [facility] Name Value Range Interpretation Code Description Data Julia rce(s) Supporting Document(s) White Blood Count 4.8-10.8 Normal (applies to non-numeri c results) [facility] Red Blood Count 3.68-5.22 Below low normal [facility] Hemoglobin 11.2-15.7 Below low normal [facility] Hematocrit 34.1-44.9 Below low normal [facility] Mean Corpuscular Volume 81-99 Above high normal [facility] Mean Corpuscular Hemoglobin 27.0-33.0 Above high normal [facility] Mean Corpuscular HGB Conc 32.0-36.0 Normal (applies to no n-numeric results) [facility] Red Cell Distribution Width 11.5-14.5 Above high normal [facility] Platelet Count 86 X10 3/uL 130-450 Below low normal [facility] Mean Platelet Volume 9.5-12.7 Normal (applies to non-num reynaldo results) [facility] Imm Grans% (AUTO) 0 % 0-2 Normal (applies to non-numeri c results) [facility] Neutrophils % (AUTO) 66 % 40-75 Normal (applies to non-num reynaldo results) [facility] Lymphocytes % (AUTO) 17 % 21-46 Below low normal [facility] Monocytes % (AUTO) 14 % 5-12 Above high normal [facility] Eosinophils % (AUTO) 2 % 1-5 Normal (applies to non-num reynaldo results) [facility] Basophils % (AUTO) 1 % 0-1 Normal (applies to non-numer ic results) [facility] Imm Grans# (AUTO) 0.0-0.5 Normal (applies to non-numeri c results) [facility] Neutrophils # (AUTO) 1.5-8.1 Normal (applies to non-num reynaldo results) [facility] Lymphocytes # (AUTO) 1.0-3.1 Normal (applies to non-num reynaldo results) [facility] Monocytes # (AUTO) 0.2-1.3 Normal (applies to non-numer ic results) [facility] Eosinophils# (AUTO) 0.0-0.5 Normal (applies to non-nume zora results) [facility] Basophils # (AUTO) 0.0-0.1 Normal (applies to non-numer ic results) [facility] ID Date Data Source [id number] 03/19/2020 08:03:00 AM EDT [facility] Name: SANA SU Pavan : 1960 A ge/Sex: 60F Attending Physician: Soniya Cheng MD [facility] Rec #: [id number] Admission Date: 03/17/20 Room #: 304-01 Admitting Physician: Soniya Cheng MD Report Number: [id number] _ cc: Send Report To: Report Status [...] andlactic acid, however. Dictated Date/Time/Job.No.: 03/19/20 0340 [id number] REPORT SIGNATURE ON FILE Dictated By: Soniya Cheng MD <Electronically signed by Soniya Cheng MD> 03/20/20 0238 Transcribed Date/Time: 03/19/20 0803/JUSTIN Name Value Range Interpretation Code Description Data Julia rce(s) Supporting Document(s) ID Date Data Source [id number] 03/19/2020 05:33:[address] 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 REPORT SIGNATURE ON FILE Dictated By: Polina Chiu MD <Electronically signed by Marcela Chiu MD> 03/19/20 1730 Dictation Date/Time: 03/18/20 7875 Transcribed Date/Time: 03/19/20 0533/JUANA Name Value Range Interpretation Code Description Data Julia rce(s) Supporting Document(s) ID Date Data Source [id number] 03/19/2020 08:30:[address] [facility] Name: SANA SU : 1960 A ge/Sex: 60F Attending Physician: Soniya Cheng MD Med Rec #: [id number] Admission Date: 03/17/20 Room #: [facility] Admitting Physician: Soniya Cheng MD Report Number: [id number] _ cc: PCP None Send Report To: [...] rce(s) Supporting Document(s) ID Date Data Source [id number] 03/19/2020 06:26:00 AM EDT [facility] Name Value Range Interpretation Code Description Data Julia rce(s) Supporting Document(s) Sodium 138 mmol/L 137-145 Normal (applies to non-numeric resul ts) [facility] Potassium 3.5-5.[address] [facility] Chloride 102 mmol/L 98-112 Normal (applies to non-numeric resul ts) [facility] Carbon Dioxide CO2 22.0-33.0 Normal (applies to non-numer ic results) [facility] Anion Gap 4.0-11.0 Normal (applies to non-numeric resul ts) [facility] BUN 9 mg/dL 7-17 Normal (applies to non-numeric resul ts) [facility] Creatinine 0.70-1.20 Below low normal [facility] GFR >60 Normal (applies to non-numeric results) [facility] Result based on MDRD formula. Glucose Level 87 mg/dL 74-99 Normal (applies to non-numeric re sults) [facility] The reference range is only applicable w hen fasting. Calcium-Uncorrected 8.4-10.2 Below low normal [facility] Corrected Calcium 8.4-10.2 Normal (applies to non-numeri c results) [facility] Bilirubin,Total 0.2-1.3 Above high normal [facility] SGOT(AST) 51 U/L 14-36 Above high normal [facility] SGPT(ALT) 16 U/L 9-52 Normal (applies to non-numeric resul ts) [facility] Alkaline Phosphatase 90 U/L 38-126 Normal (applies to non-num reynaldo results) [facility] can increase Alkaline Phosp le vels up to 2 times the normal adult value. Normal values for children and adolescents are 2 to 3 times the normal adult value. Total Protein 6.3-8.2 Below low normal [facility] Albumin 3.5-5.[address] [facility] ID Date Data Source [id number] 03/19/2020 06:26:00 AM EDT [facility] Name Value Range Interpretation Code Description Data Julia rce(s) Supporting Document(s) Bilirubin,Direct 0.0-0.3 Above high normal [facility] ID Date Data Source [id number] 03/19/2020 05:43:00 AM EDT [facility] Name Value Range Interpretation Code Description Data Julia rce(s) Supporting Document(s) Ammonia 68 umol/L 11-32 Above high normal [facility] ID Date Data Source [id number] 03/19/2020 05:21:00 AM EDT [facility] Name Value Range Interpretation Code Description Data Julia rce(s) Supporting Document(s) White Blood Count 4.8-10.8 Normal (applies to non-numeri c results) [facility] Red Blood Count 3.68-5.22 Below low normal [facility] Hemoglobin 11.2-15.7 Below low normal [facility] Hematocrit 34.1-44.9 Below low normal [facility] Mean Corpuscular Volume 81-99 Above high normal [facility] Mean Corpuscular Hemoglobin 27.0-33.0 Above high normal [facility] Mean Corpuscular HGB Conc 32.0-36.0 Normal (applies to no n-numeric results) [facility] Red Cell Distribution Width 11.5-14.5 Above high normal [facility] Platelet Count 77 X10 3/uL 130-450 Below low normal [facility] Mean Platelet Volume 9.5-12.7 Normal (applies to non-num reynaldo results) [facility] Imm Grans% (AUTO) 0 % 0-2 Normal (applies to non-numeri c results) [facility] Neutrophils % (AUTO) 64 % 40-75 Normal (applies to non-num reynaldo results) [facility] Lymphocytes % (AUTO) 19 % 21-46 Below low normal [facility] Monocytes % (AUTO) 16 % 5-12 Above high normal [facility] Eosinophils % (AUTO) 2 % 1-5 Normal (applies to non-num reynaldo results) [facility] Basophils % (AUTO) 1 % 0-1 Normal (applies to non-numer ic results) [facility] Imm Grans# (AUTO) 0.0-0.5 Normal (applies to non-numeri c results) [facility] Neutrophils # (AUTO) 1.5-8.1 Normal (applies to non-num reynaldo results) [facility] Lymphocytes # (AUTO) 1.0-3.1 Normal (applies to non-num reynaldo results) [facility] Monocytes # (AUTO) 0.2-1.3 Normal (applies to non-numer ic results) [facility] Eosinophils# (AUTO) 0.0-0.5 Normal (applies to non-nume zora results) [facility] Basophils # (AUTO) 0.0-0.1 Normal (applies to non-numer ic results) [facility] ID Date Data Source [id number] 03/19/2020 02:05:00 AM EDT [facility] Name Value Range Interpretation Code Description Data Julia rce(s) Supporting Document(s) Procalcitonin 0.00-0.24 Normal (applies to non-numeric re sults) [facility] 1.Risk of Progression to severe sepsis a [...] therapy is warranted. ID Date Data Source [id number] 03/19/2020 01:56:00 AM EDT [facility] 3 hour post Lactic if elevated? Y Name Value Range Interpretation Code Description Data Julia rce(s) Supporting Document(s) Lactic Acid 0.4-2.0 Normal (applies to non-numeric resu lts) [facility] ID Date Data Source [id number] 03/19/2020 01:53:00 AM EDT [facility] Name Value Range Interpretation Code Description Data Julia rce(s) Supporting Document(s) Sodium 137 mmol/L 137-145 Normal (applies to non-numeric resul ts) [facility] Potassium 3.5-5.[address] [facility] Chloride 101 mmol/L 98-112 Normal (applies to non-numeric resul ts) [facility] Carbon Dioxide CO2 22.0-33.0 Normal (applies to non-numer ic results) [facility] Anion Gap 4.0-11.0 Normal (applies to non-numeric resul ts) [facility] BUN 9 mg/dL 7-17 Normal (applies to non-numeric resul ts) [facility] Creatinine 0.70-1.20 Below low normal [facility] GFR >60 Normal (applies to non-numeric results) [facility] Result based on MDRD formula. Glucose Level 108 mg/dL 74-99 Above high normal [facility] The reference range is only applicable w hen fasting. Calcium-Uncorrected 8.4-10.2 Below low normal [facility] Corrected Calcium 8.4-10.2 Normal (applies to non-numeri c results) [facility] ID Date Data Source [id number] 03/19/2020 01:30:00 AM EDT [facility] Name Value Range Interpretation Code Description Data Julia rce(s) Supporting Document(s) White Blood Count 4.8-10.8 Normal (applies to non-numeri c results) [facility] Red Blood Count 3.68-5.22 Below low normal [facility] Hemoglobin 11.2-15.7 Below low normal [facility] Hematocrit 34.1-44.9 Below low normal [facility] Mean Corpuscular Volume 81-99 Above high normal [facility] Mean Corpuscular Hemoglobin 27.0-33.0 Above high normal [facility] Mean Corpuscular HGB Conc 32.0-36.0 Normal (applies to no n-numeric results) [facility] Red Cell Distribution Width 11.5-14.5 Above high normal [facility] Platelet Count 76 X10 3/uL 130-450 Below low normal [facility] Mean Platelet Volume 9.5-12.7 Normal (applies to non-num reynaldo results) [facility] Imm Grans% (AUTO) 1 % 0-2 Normal (applies to non-numeri c results) [facility] Neutrophils % (AUTO) 66 % 40-75 Normal (applies to non-num reynaldo results) [facility] Lymphocytes % (AUTO) 16 % 21-46 Below low normal [facility] Monocytes % (AUTO) 15 % 5-12 Above high normal [facility] Eosinophils % (AUTO) 2 % 1-5 Normal (applies to non-num reynaldo results) [facility] Basophils % (AUTO) 1 % 0-1 Normal (applies to non-numer ic results) [facility] Imm Grans# (AUTO) 0.0-0.5 Normal (applies to non-numeri c results) [facility] Neutrophils # (AUTO) 1.5-8.1 Normal (applies to non-num reynaldo results) [facility] Lymphocytes # (AUTO) 1.0-3.1 Normal (applies to non-num reynaldo results) [facility] Monocytes # (AUTO) 0.2-1.3 Normal (applies to non-numer ic results) [facility] Eosinophils# (AUTO) 0.0-0.5 Normal (applies to non-nume zora results) [facility] Basophils # (AUTO) 0.0-0.1 Normal (applies to non-numer ic results) [facility] ID Date Data Source [id number] 03/18/2020 11:14:00 AM EDT [facility] Name: SANA SU : 1960 A ge/Sex: 60F Attending Physician: Soniya Cheng MD Med Rec #: [id number] Admission Date: 03/17/20 Room #: 304-01 Admitting Physician: Soniya Cheng MD Report Number: [id number] _ cc: PCP None Send Report To: Report Status - Signed HISTORY AND PHYSICAL Date of Admission: 03/17/20 CHIEF COMPLAINT: A 60-ear-old female who originally presented to [facility] Emergency Room, transferred to our facility for further management of severe ascites and decompensated liver disease. HISTORY OF PRESENT ILLNESS: Sana who does not have a primary care physician recently moved from [place] where she had lived most of her life. The patientmoved to [place] within the last month after being quarantined with her daughter in [place], [place] from the previous two and half months. She did not think that she had any major medical problems until approximately three months ago. 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 She had injured her right knee, which had been previously fractures many years ago. Thepatient was taken Ibuprofen and at that time noticed that she began having increased swelling of her lower extremities and her abdomen. To her this appearto accumulate a short period of time. She had seen someone in Urgent Care in the [place] area who had prescribed; spironolactone and furosemide. She had taken this initially which had been helpful, however, stopped in when she began experiencing weakness and muscle aches and cramps. She then resumed it, althoughit did not seem to be as affective. She did go also to [facility], Emergency Room on 03-01-2020 complaining of severe [...] officially moved in with her mother in [place]. Arrived to the ER in [place] as she wanted to get help with [...] it isimproving. The patient was seen in [place] by AYRELI Marcos. Her lab work there, herwhite count [...] Case was discussed with the Hospitalist at [facility]. She was transferred to our facility for [...] [facility] She had no respiratory symptoms [...] six years ago. 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 She had lived with her daughter in [place] for two and half months under quarantine when her restaurant closed. [place] [facility]. She now currently [place] [facility] [place] [facility] [place],she just recently moved within the last month. [...] both sides. LABORATORY AND X-RAY DATA: From [place] as mentioned above. ASSESSMENT: A 60-year-old female [...] [facility] 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 The patient has hyperbilirubinemia and elevated AST consistentwith alcohol injury. The patient is not tender over her liver, was considering alcohol hepatitis. Her bilirubin in March 02 in [place] was also elevated at 5.7. PLAN: The [...] of magnesium as she as hypomagnesemic in [place] and oral potassium. We will also start [...] need a new primary physician and a forest fire equipment operator to further monitor her. I did order a nicotine patch as well. TIME SPENT: 75 minutes was spent in total time with over half the time in neme-ob-yuzs time. ADDENDUM: The patient also has an [...] rce(s) Supporting Document(s) ID Date Data Source [id number] 03/18/2020 05:48:00 PM EDT [facility] Name Value Range Interpretation Code Description Data [facility] rce(s) Supporting Document(s) Sodium 135 mmol/L 137-145 Below low normal [facility] Potassium 3.5-5.1 Normal (applies to non-numeric resul ts) [facility] Chloride 99 mmol/L 98-112 Normal (applies to non-numeric resul ts) [facility] Carbon Dioxide CO2 22.0-33.0 Normal (applies to non-numer ic results) [facility] Anion Gap 4.0-11.0 Normal (applies to non-numeric resul ts) [facility] BUN 9 mg/dL 7-17 Normal (applies to non-numeric resul ts) [facility] Creatinine 0.70-1.20 Below low normal [facility] GFR >60 Normal (applies to non-numeric results) [facility] Result based on MDRD formula. Glucose Level 107 mg/dL 74-99 Above high normal [facility] The reference range is only applicable w hen fasting. Calcium-Uncorrected 8.4-10.2 Below low normal [facility] Corrected Calcium 8.4-10.2 Normal (applies to non-numeri c results) [facility] Bilirubin,Total 0.2-1.3 Above high normal [facility] SGOT(AST) 74 U/L 14-36 Above high normal [facility] SGPT(ALT) 23 U/L 9-52 Normal (applies to non-numeric resul ts) [facility] Alkaline Phosphatase 130 U/L 38-126 Above high normal [facility] can increase Alkaline Phosp le vels up to 2 times the normal adult value. Normal values for children and adolescents are 2 to 3 times the normal adult value. Total Protein 6.3-8.2 Normal (applies to non-numeric re sults) [facility] Albumin 3.5-5.[address] [facility] ID Date Data Source [id number] 03/18/2020 05:48:00 PM EDT [facility] Name Value Range Interpretation Code Description Data Julia rce(s) Supporting Document(s) Bilirubin,Direct 0.0-0.3 Above high normal [facility] ID Date Data Source [id number] 03/20/2020 12:36:00 PM EDT [facility] Sp johnson Garduno MD, Director PAGE [address] [place] [address] [place] [address] Name: SANA SU Rec #: [id number]: 1960 Age/Sex: 60/F Attending Provider: Soniya Cheng MD Date of Service: 03/17/20 Location: [facility] CC: MD Bruce Ross PA [facility] None Polina Chiu MD Specimen: [id number] Received: [id number] Status: RAJ Perez Num: [id number] Collected: Sp Type: SURGICAL Subm Doc: Soniya [...] rce(s) Supporting Document(s) ID Date Data Source [id number] 03/20/2020 12:01:[address] [facility] Name: SANA SU : 1960 A ge/Sex: 60F Ordering Provider: Polina Chiu MD Med Rec #: [id number] Reg Status: ADM IN Room #: 312-1 Date of Service: 03/18/20 Report Number: [id number] cc:Polina Chiu MD; PCP None Send Report To: [id number] US/US Paracentesis Reason for exam: fluid build up FINDINGS: Ultrasound guidance was provided to Dr. Chiu for performing paracentesis at bedside. REPORT SIGNATURE ON FILE Reported By: Luis Haddad MD <Electronically signed by Severo Haddad MD> 03/21/20 0942 Dictation Date/Time: 03/20/20 2393 Transcribed Date/Time: 03/20/20 1201 Wire Stripping Machine Operator: DANTE Name Value Range Interpretation Code Description Data Julia rce(s) Supporting Document(s) ID Date Data Source [id number] 03/19/2020 02:20:00 PM EDT [facility] Name Value Range Interpretation Code Description Data Julia rce(s) Supporting Document(s) Volume,(Barbi Fluid) 2 mL Normal (applies to non-nume zora results) [facility] ID Date Data Source [id number] 03/19/2020 02:20:00 PM EDT [facility] Name Value Range Interpretation Code Description Data Julia rce(s) Supporting Document(s) Appearance,(Barbi Fluid) Normal (applies to non- numeric results) [facility] Slide reviewed by Pathologist for conf irmation. 03/19/20 DR GARDUNO. This is a Corrected Result --- 03/19/20 1420 --- Appear(PeriFld) previously reported as: Clear ID Date Data Source [id number] 03/19/2020 02:20:00 PM EDT [facility] Name Value Range Interpretation Code Description Data Julia rce(s) Supporting Document(s) Color,(Barbi Fld) Normal (applies to non-numeric results) [facility] ID Date Data Source [id number] 03/19/2020 02:20:00 PM [facility] Name Value Range Interpretation Code Description Data Julia rce(s) Supporting Document(s) RBC (Barbi Fld) 1000 uL Normal (applies to non-numeric r esults) [facility] No established reference values ID Date Data Source [id number] 03/19/2020 02:20:00 PM T [facility] Name Value Range Interpretation Code Description Data Julia rce(s) Supporting Document(s) WBC (Barbi Fld) 97 uL Normal (applies to non-numeric r esults) [facility] No established reference values ID Date Data Source [id number] 03/19/2020 02:20:00 PM [facility] Name Value Range Interpretation Code Description Data Julia rce(s) Supporting Document(s) Mononuclear %(Barbi Fld) Normal (applies to non- numeric results) [facility] No established reference values ID Date Data Source [id number] 03/19/2020 02:20:00 PM EDT [facility] Name Value Range Interpretation Code Description Data Julia rce(s) Supporting Document(s) Polymononuclear %(Barbi Fld) Normal (applies to non-numeric results) [facility] No established reference values ID Date Data Source [id number] 03/19/2020 02:20:00 PM EDT [facility] Name Value Range Interpretation Code Description Data Julia rce(s) Supporting Document(s) Mononuclear #(Barbi Fld) 66 uL Normal (applies to non- numeric results) [facility] No established reference values ID Date Data Source [id number] 03/19/2020 02:20:00 PM [facility] Name Value Range Interpretation Code Description Data Julia rce(s) Supporting Document(s) Polymononuclear #(Barbi Fld) 31 uL Normal (applies to non-numeric results) [facility] No established reference values ID Date Data Source [id number] 03/19[facility]2020 [facility] Value [facility] Interpretation Code Description Data Julia rce(s) Supporting Document(s) Glucose,(Barbi Fld) 120 mg/dL Normal (applies to non-numer ic results) [facility] No established reference values ID Date Data Source [id number] 03/19/2020 02:20:00 PM EDT [facility] Name Value Range Interpretation Code Description Data Julia rce(s) Supporting Document(s) LDH,(Barbi Fld) 46 U/L Normal (applies to non-numeric r esults) [facility] No established reference values ID Date Data Source [id number] 03/19/2020 02:20:00 PM [facility] Name Value Range Interpretation Code Description Data Julia rce(s) Supporting Document(s) Total Protein,(Barbi Fld) Normal (applies to non -numeric results) [facility] No established reference values ID Date Data Source [id number] 03/19/2020 02:20:00 PM EDT [facility] Name Value Range Interpretation Code Description Data Julia rce(s) Supporting Document(s) Albumin (Barbi Fld) Normal (applies to non-numer ic results) [facility] No established reference values ID Date Data Source [id number] 03/20/2020 04:52:00 PM EDT [facility] Name Value Range Interpretation Code Description Data Julia rce(s) Supporting Document(s) Amylase,Body Fluid result 50 U/L Normal (applies to no n-numeric results) [facility] REFERENCE VALUE------ See Comment ADDITIONAL INFORMATION Peritoneal [...] ratio <1.0. All other fluids refer to [email or web address] for further interpretive information. This test has been modified from the engineering geologist's instructions. Its performance characteristics were determined by [facility] in a manner consistent with CLIA requirements. This test has not been cleared or approved by the U.S. Food and Drug Administration. Amylase,Body Fluid Type Normal (applies to non- numeric results) [facility] Test Performed by: [address] [address] [employer] Machine: Daniel Degroot M.D. Ph.D.; CLIA# [id number] ID Date Data Source [id number] 03/18/2020 07:14:00 AM EDT [facility] Name Value Range Interpretation Code Description Data Julia rce(s) Supporting Document(s) Hep C Ab-T Test Nonreactive Normal (applies to non-numeric results) [facility] ID Date Data Source [id number] 03/18/2020 07:14:00 AM EDT [facility] Name Value Range Interpretation Code Description Data Jluia rce(s) Supporting Document(s) Hep Bs Ag Result T-Test Nonreactive Normal (applies to non -numeric results) [facility] ID Date Data Source [id number] 03/18/2020 07:14:00 AM EDT [facility] Name Value Range Interpretation Code Description Data Julia rce(s) Supporting Document(s) Hep Bs Ab Numeric result Normal (applies to non -numeric results) [facility] Reference Value Protected Immunity: >10 mIU/mL Non-Immunity : <10 mIU/mL Hep Bs Ab result T-Test La [facility] Reference Value Protected Immunity: Re active Non-Immunity : Nonreactive ID Date Data Source [id number] 03/18/2020 06:16:00 AM EDT [facility] Name Value Range Interpretation Code Description Data Julia rce(s) Supporting Document(s) Sodium 134 mmol/L 137-145 Below low normal [facility] Potassium 3.5-5.1 Normal (applies to non-numeric resul ts) [facility] Chloride 100 mmol/L 98-112 Normal (applies to non-numeric resul ts) [facility] Carbon Dioxide CO2 22.0-33.0 Normal (applies to non-numer ic results) [facility] Anion Gap 4.0-11.0 Normal (applies to non-numeric resul ts) [facility] BUN 8 mg/dL 7-17 Normal (applies to non-numeric resul ts) [facility] Creatinine 0.70-1.20 Below low normal [facility] GFR >60 Normal (applies to non-numeric results) [facility] Result based on MDRD formula. Glucose Level 98 mg/dL 74-99 Normal (applies to non-numeric re sults) [facility] The reference range is only applicable w hen fasting. Calcium-Uncorrected 8.4-10.2 Below low normal [facility] Corrected Calcium 8.4-10.2 Normal (applies to non-numeri c results) [facility] Bilirubin,Total 0.2-1.3 Above high normal [facility] SGOT(AST) 79 U/L 14-36 Above high normal [facility] SGPT(ALT) 22 U/L 9-52 Normal (applies to non-numeric resul ts) [facility] Alkaline Phosphatase 138 U/L 38-126 Above high normal [facility] can increase Alkaline Phosp le vels up to 2 times the normal adult value. Normal values for children and adolescents are 2 to 3 times the normal adult value. Total Protein 6.3-8.2 Normal (applies to non-numeric re sults) [facility] Albumin 3.5-5.[address] [facility] ID Date Data Source [id number] 03/18/2020 06:16:00 AM EDT [facility] Name Value Range Interpretation Code Description Data Julia rce(s) Supporting Document(s) Magnesium 1.80-2.40 Normal (applies to non-numeric resul ts) [facility] ID Date Data Source [id number] 03/18/2020 06:16:00 AM T [facility] Name Value Range Interpretation Code Description Data Julia rce(s) Supporting Document(s) Bilirubin,Direct 0.0-0.3 Above high normal [facility] ID Date Data Source [id number] 03/18/2020 05:30:00 AM EDT [facility] Name Value Range Interpretation Code Description Data Julia rce(s) Supporting Document(s) White Blood Count 4.8-10.8 Normal (applies to non-numeri c results) [facility] Red Blood Count 3.68-5.22 Below low normal [facility] Hemoglobin 11.2-15.7 Normal (applies to non-numeric resul ts) [facility] Hematocrit 34.1-44.9 Below low normal [facility] Mean Corpuscular Volume 81-99 Above high normal [facility] Mean Corpuscular Hemoglobin 27.0-33.0 Above high normal [facility] Mean Corpuscular HGB Conc 32.0-36.0 Normal (applies to no n-numeric results) [facility] Red Cell Distribution Width 11.5-14.5 Above high normal [facility] Platelet Count 93 X10 3/uL 130-450 Below low normal [facility] Mean Platelet Volume 9.5-12.7 Normal (applies to non-num reynaldo results) [facility] Imm Grans% (AUTO) 0 % 0-2 Normal (applies to non-numeri c results) [facility] Neutrophils % (AUTO) 66 % 40-75 Normal (applies to non-num reynaldo results) [facility] Lymphocytes % (AUTO) 16 % 21-46 Below low normal [facility] Monocytes % (AUTO) 15 % 5-12 Above high normal [facility] Eosinophils % (AUTO) 2 % 1-5 Normal (applies to non-num reynaldo results) [facility] Basophils % (AUTO) 1 % 0-1 Normal (applies to non-numer ic results) [facility] Imm Grans# (AUTO) 0.0-0.5 Normal (applies to non-numeri c results) [facility] Neutrophils # (AUTO) 1.5-8.1 Normal (applies to non-num reynaldo results) [facility] Lymphocytes # (AUTO) 1.0-3.1 Normal (applies to non-num reynaldo results) [facility] Monocytes # (AUTO) 0.2-1.3 Normal (applies to non-numer ic results) [facility] Eosinophils# (AUTO) 0.0-0.5 Normal (applies to non-nume zora results) [facility] Basophils # (AUTO) 0.0-0.1 Normal (applies to non-numer ic results) [facility] ID Date Data Source [id number] 03/20/2020 11:50:00 AM EDT [facility] [place] Garduno MD, Director PAGE [address] [place] [address] [place] [address] Name: SANA SU [facility] Rec #: [id number]: 1960 Age/Sex: 60/F Attending Provider: Soniya Cheng MD Date of Service: 03/17/20 Location: [facility] CC: MD Bruce Ross PA PCP None Polina Chiu MD Specimen: [id number] Received: [id number] Status: RAJ Perez Num: [id number] Collected: [id number] Type: PERITON [place] Subm Doc: Soniya [...] rce(s) Supporting Document(s) ID Date Data Source [id number] [facility] By: Nurse Initials: PASQUALE Time Collected: 1800 Name Value Range Interpretation Code Description Data Julia rce(s) Supporting Document(s) Color,Urine Colorl-Dk Y Normal (applies to non-numeric res ults) [facility] Clarity,Urine Clear Normal (applies to non-numeric re sults) [facility] Specific [place],Urine 1.005-1.030 Normal (applies to non- numeric results) [facility] pH,Urine 5.0-8.0 Normal (applies to non-numeric resul ts) [facility] Protein,Urine Negative Normal (applies to non-numeric re sults) [facility] Glucose,Urine Negative Normal (applies to non-numeric re sults) [facility] Ketones,Urine Negative [facility] Blood,Urine Negative Normal (applies to non-numeric resu lts) [facility] Bilirubin,Urine Negative [facility] Urobilinogen,Urine 0.2-1.0 [facility] Leukocyte Esterase,Urine Negative Normal (applies to non -numeric results) [facility] Nitrite,Urine Negative Normal (applies to non-numeric re sults) [facility] ID Date Data Source [id number] 03/17/2020 05:29:00 PM EDT [facility] Name Value Range Interpretation Code Description Data Julia rce(s) Supporting Document(s) Sodium 134 mmol/L 136-145 Below low normal [facility] Potassium 3.5-5.[address] [facility] Chloride 97 mmol/L 98-[address] [facility] Carbon Dioxide CO2 21-32 Normal (applies to non-numer ic results) [facility] Anion Gap 5.0-16.0 Normal (applies to non-numeric resul ts) [facility] BUN 6 mg/dL 7-[address] [facility] Creatinine,Serum 0.7-1.2 Below low normal [facility] GFR >60 Normal (applies to non-numeric results) [facility] Glucose Level 102 mg/dL 60-99 Above high normal [facility] Reference range is only applicable when patient is fasting Note the following drug interference: Sulfasalazine Sulfapyridine Can see falsely depressed Can see falsely elevated result with up to 17% results with up to 11% decrease in measurement increase in measurement Recommend patients be collected for this test prior to administration of either drug. Calcium 8.5-10.[address] [facility] Bilirubin,Total 0.1-1.9 [facility] RN read back critical infor sebas 03/17/20 6345 LAB.MCNRO SGOT(AST) 86 U/L 15-37 Above high normal [facility] o[facility]ital Note the following drug interference: Sulfasalazine Sulfapyridine Can see falsely depressed Can see falsely elevated result with up to 10% results with up to 10% decrease in measurement increase in measurement Recommend patients be collected for this test prior to administration of either drug. SGPT(ALT) 26 U/L 12-78 Normal (applies to non-numeric resul ts) [facility] Note the following drug interference: Sulfasalazine Sulfapyridine Can see falsely depressed Can see falsely elevated result with up to 29% results with up to 10% decrease in measurement increase in measurement Recommend patients be collected for this test prior to administration of either drug. Alkaline Phosphatase 163 U/L 38-126 Above high normal [facility] can increase Alkaline Phosp le vels up to 2 times the normal adult value. Normal values for children and adolescents are 2 to 3 times the normal adult value. Total Protein 6.0-8.2 Normal (applies to non-numeric re sults) [facility] Albumin Level 3.4-5.0 Below low normal [facility] ID Date Data Source [id number] 03/17/2020 05:29:00 PM [facility] Name Value Range Interpretation Code Description Data Julia rce(s) Supporting Document(s) Magnesium 1.8-2.4 Below low normal [facility] ID Date Data Source [id number] 03/17/2020 05:29:00 PM [facility] Name Value Range Interpretation Code Description Data Julia rce(s) Supporting Document(s) Amylase 107 U/L 25-115 Normal (applies to non-numeric resul ts) [facility] ID Date Data Source [id number] 03/17/2020 05:29:00 PM [facility] Name Value Range Interpretation Code Description Data Julia rce(s) Supporting Document(s) Lipase 571 U/L 73-393 Above high normal [facility] ID Date Data Source [id number] 03/17/2020 05:19:00 PM [facility] Name Value Range Interpretation Code Description Data Julia rce(s) Supporting Document(s) Lactic Acid 0.4-2.0 Normal (applies to non-numeric resu lts) [facility] ID Date Data Source [id number] 03/17/2020 05:13:00 PM EDT [facility] Name Value Range Interpretation Code Description Data Julia rce(s) Supporting Document(s) PT 9.2-11.7 Above high normal [facility] ospital INR Normal (applies to non-numeric results) [facility] The use of INR is restricted to patients on stable oral anticoagulant. Therapeutic Range: 2.0 - 3.0 High Risk Range: 2.5 - 3.5 ID Date Data Source [id number] 03/17/2020 05:13:00 PM [facility] Name Value Range Interpretation Code Description Data Julia rce(s) Supporting Document(s) PTT 23.8-37.9 Normal (applies to non-numeric results) [facility] ID Date Data Source [id number] 03/17/2020 04:54:00 PM [facility] Name Value Range Interpretation Code Description Data Julia rce(s) Supporting Document(s) White Blood Count 3.5-10.5 Normal (applies to non-numeri c results) [facility] Red Blood Count 3.90-5.00 Below low normal [facility] Hemoglobin 12.0-15.5 Normal (applies to non-numeric resul ts) [facility] Hematocrit 34.9-44.5 Normal (applies to non-numeric resul ts) [facility] Mean Corpuscular Volume 81.2-95.1 Above high normal [facility] Mean Corpuscular Hgb 25.6-32.2 Above high normal [facility] Mean Corpuscular Hgb Conc 32.0-36.0 Normal (applies to no n-numeric results) [facility] Red Cell Distribution Width 11.9-15.5 Above high normal [facility] Platelet Count 108 x10 3/uL 150-450 Below low normal [facility] Mean Platelet Volume 9.4-12.4 Normal (applies to non-num reynaldo results) [facility] Neutrophils% (Auto) 31.0-71.0 Normal (applies to non-nume zora results) [facility] Lymphocytes% (Auto) 20.0-55.0 Below low normal [facility] Monocytes% (Auto) 4.0-12.0 Above high normal [facility] Eosinophils% (Auto) 1.0-8.0 Normal (applies to non-nume zora results) [facility] Basophils% (Auto) 0.0-2.0 Normal (applies to non-numeri c results) [facility] Immature Granulocytes% (Auto) 0.0-2.0 Normal (ivon lies to non-numeric results) [facility] Neutrophils# (Auto) 1.50-6.20 Normal (applies to non-nume zora results) [facility] Lymphocytes# (Auto) 1.20-4.00 Normal (applies to non-nume zora results) [facility] Monocytes# (Auto) 0.00-0.90 Above high normal [facility] Eosinophils# (Auto) 0.00-0.50 Normal (applies to non-nume zora results) [facility] Basophils# (Auto) 0.00-0.20 Normal (applies to non-numeri c results) [facility] Immature Granulocytes# (Auto) 0.00-7.00 No rmal (applies to non-numeric results) [facility] ID Date Data Source [id number] 03/18/2020 12:11:00 PM EDT [facility] Imaging Services Department Imaging Report [address], [place] [address] %(RAD)RES..mtdd.print.filter("line") Name: SANA SU : 1960 Age/Sex: 60F Ordering Provider: Kiel Marcos NP Med Rec #: [id number] Reg Status: [facility] ER Room #: Date of Service: 03/17/20 Report Number: [id number] cc:Kiel Marcos NP; PCP None Send Report To: [id number] US/US Duplex Lower Ext Vein Bilat Reason [...] Date/Time: 03/17/20 1800 Transcribed Date/Time: 03/18/20 1211 Wire Stripping Machine Operator: REMY Name Value Range Interpretation Code Description Data Julia rce(s) Supporting Document(s) ID Date Data Source [id number] 03/17/2020 04:39:00 PM EDT [facility] Imaging Services Department Imaging Report [address] [place] [address] %(RAD)RES..mtdd.print.filter("line") Name: SANA SU : 1960 Age/Sex: 60F Ordering Provider: Kiel Marcos NP Med Rec #: [id number] Reg Status: [facility] ER Room #: Date of Service: 03/17/20 Report Number: [id number] cc:PCP None Send Report To: [id number] CT/CT Abdomen & Pelvis No Contras Reason [...] Date/Time: 03/17/20 1638 Transcribed Date/Time: 03/17/20 1639 Wire Stripping Machine Operator: REMY Name Value Range Interpretation Code Description Data Julia rce(s) Supporting Document(s) ID Date Data Source [id number] 01/17/2020 11:14:00 AM EDT [facility] ([facility]) ABDOMEN INDICATION: Pain COMPARISON: None TECHNIQUE: AP supine views of the abdomen were obtained. FINDINGS: Moderate stool in the colon. No dilated bowel. No evidence of free air or free fluid. No abnormal soft tissue mass lesions are identified. There are no pathological calcifications. IMPRESSION: Moderate stool in the colon, no dilated bowel Professional interpretation performed by [facility] Medical [facility] at [facility] Name Value Range Interpretation Code Description Data Julia rce(s) Supporting Document(s) ID Date Data Source [id number] 01/17/2020 12:00:00 AM EDT CHARTMAKER ([facility]) Name Value Range Interpretation Code Description Data Julia rce(s) Supporting Document(s) BASO # 0.1 10*3/uL BASO #: 0.1 10*3/uL 01/16 CHARTMAKER ([facility]) ID Date Data Source [id number] 01/17/2020 12:00:00 AM EDT CHARTMAKER ([facility]) Name Value Range Interpretation Code Description Data Julia rce(s) Supporting Document(s) EOS # 0.1 10*3/uL EOS #: 0.1 10*3/uL 2019 CHARTMAKER ([facility]) ID Date Data Source [id number] 01/17/2020 12:00:00 AM EDT CHARTMAKER ([facility] Name Value Range Interpretation Code Description Data Julia rce(s) Supporting Document(s) MONO # 0.8 10*uL MONO #: 0.8 10*3/uL 01/16 CHARTMAKER ([facility]) ID Date Data Source [id number] 01/17/2020 12:00:00 AM EDT CHARTMAKER ([facility]) Name Value Range Interpretation Code Description Data Julia rce(s) Supporting Document(s) LYMPH # 1.2 10*uL LYMPH #: 1.2 10*3/uL 01/17/2020 CHARTMAKER ([facility]) ID Date Data Source [id number] 01/17/2020 12:00:00 AM EDT [facility]MAKER ([facility]) Name Value Range Interpretation Code Description Data Julia rce(s) Supporting Document(s) NEUT # 3.8 10*3uL NEUT #: 3.8 10*3/uL 01/16 CHARTMAKER ([facility]) ID Date Data Source [id number] 01/17/2020 12:00:00 AM EDT CHARTMAKER ([facility]) Name Value Range Interpretation Code Description Data Julia rce(s) Supporting Document(s) BASO % 1.3 % BASO %: 1.3 % 01/17/2020 CHARTM JOAQUIN ([facility]) ID Date Data Source [id number] 01/17/2020 12:00:00 AM EDT CHARTMAKER ([facility]) Name Value Range Interpretation Code Description Data Julia rce(s) Supporting Document(s) EOS % 1.8 % EOS %: 1.8 % 01/17/2020 CHARTMA KER ([facility]) ID Date Data Source [id number] 01/17/2020 12:00:00 AM EDT CHARTMAKER ([facility]) Name Value Range Interpretation Code Description Data Julia rce(s) Supporting Document(s) MONO % 13.4 % MONO %: 13.4 % 01/17/2020 CHART MAKER ([facility]) ID Date Data Source [id number] 01/17/2020 12:00:00 AM EDT CHARTMAKER ([facility]) Name Value Range Interpretation Code Description Data Julia rce(s) Supporting Document(s) LYMPH % 19.7 % LYMPH %: 19.7 % 01/17/2020 AURELIA TMAKER ([facility]) ID Date Data Source [id number] 01/17/2020 12:00:00 AM EDT CHARTMAKER ([facility]) Name Value Range Interpretation Code Description Data Julia rce(s) Supporting Document(s) NEUT % 63.8 % NEUT %: 63.8 % 01/17/2020 CHART MAKER ([facility]) ID Date Data Source [id number] 01/17/2020 12:00:00 AM EDT CHARTMAKER ([facility]) Name Value Range Interpretation Code Description Data Julia rce(s) Supporting Document(s) MPV 9.2 fL MPV: 9.2 fL 01/17/2020 CHARTMAK ER ([facility]) ID Date Data Source [id number] 01/17/2020 12:00:00 AM EDT CHARTMAKER ([facility]) Name Value Range Interpretation Code Description Data Julia rce(s) Supporting Document(s) PLT 119 10*3/uL PLT: 119 10*3/uL 01/17/2020 C HARTMAKER ([facility]) ID Date Data Source [id number] 01/17/2020 12:00:00 AM EDT CHARTMAKER ([facility]) Name Value Range Interpretation Code Description Data Julia rce(s) Supporting Document(s) RDW 16.7 % RDW: 16.7 % 01/17/2020 CHARTMAK ER ([facility]) ID Date Data Source [id number] 01/17/2020 12:00:00 AM EDT CHARTMAKER ([facility]) Name Value Range Interpretation Code Description Data Julia rce(s) Supporting Document(s) MCHC 34.5 g/dL MCHC: 34.5 g/dL 01/17/2020 AURELIA TMAKER ([facility]) ID Date Data Source [id number] 01/17/2020 12:00:00 AM EDT CHARTMAKER ([facility]) Name Value Range Interpretation Code Description Data Julia rce(s) Supporting Document(s) MCH 35.5 pg MCH: 35.5 pg 01/17/2020 CHARTMA KER ([facility]) ID Date Data Source [id number] 01/17/2020 12:00:00 AM EDT CHARTMAKER ([facility]) Name Value Range Interpretation Code Description Data Julia rce(s) Supporting Document(s) MCV 102.9 fL MCV: 102.9 fL 01/17/2020 CHARTM JOAQUIN ([facility]) ID Date Data Source [id number] 01/17/2020 12:00:00 AM EDT CHARTMAKER ([facility]) Name Value Range Interpretation Code Description Data Julia rce(s) Supporting Document(s) HCT 34.5 % HCT: 34.5 % 01/17/2020 CHARTMAK ER ([facility]) ID Date Data Source [id number] 01/17/2020 12:00:00 AM EDT CHARTMAKER ([facility]) Name Value Range Interpretation Code Description Data Julia rce(s) Supporting Document(s) HGB 11.9 g/dL HGB: 11.9 g/dL 01/17/2020 CHART MAKER ([facility]) ID Date Data Source [id number] 01/17/2020 12:00:00 AM EDT CHARTMAKER ([facility]) Name Value Range Interpretation Code Description Data Julia rce(s) Supporting Document(s) RBC 3.36 10*6/uL RBC: 3.36 10*6/uL 2019 CHARTMAKER ([facility]) ID Date Data Source [id number] 01/17/2020 12:00:00 AM EDT CHARTMAKER ([facility]) Name Value Range Interpretation Code Description Data Julia rce(s) Supporting Document(s) WBC 5.9 10*3/uL WBC: 5.9 10*3/uL 01/17/2020 C JAIMIENCKER ([facility]) ID Date Data Source [id number] 01/17/2020 12:00:00 AM EDT CHARTMAKER ([facility]) Name Value Range Interpretation Code Description Data Julia rce(s) Supporting Document(s) GFR ( AMER) >60 GFR ( AMER ): >60 01/17/2020 CHARTMAKER ([facility]) ID Date Data Source [id number] 01/17/2020 12:00:00 AM EDT CHARTMAKER ([facility]) Name Value Range Interpretation Code Description Data Julia rce(s) Supporting Document(s) GFR >60 GFR : >60 01/17/2020 CHARTMAKER ([facility]) ID Date Data Source [id number] 01/17/2020 12:00:00 AM EDT CHARTMAKER ([facility]) Name Value Range Interpretation Code Description Data Julia rce(s) Supporting Document(s) ALT (SGPT) 32 U/L ALT (SGPT): 32 U/L 020 CHARTMAKER ([facility]) ID Date Data Source [id number] 01/17/2020 12:00:00 AM EDT CHARTMAKER ([facility]) Name Value Range Interpretation Code Description Data Julia rce(s) Supporting Document(s) AST (SGOT) 86 U/L AST (SGOT): 86 U/L 020 CHARTMAKER ([facility]) ID Date Data Source [id number] 01/17/2020 12:00:00 AM EDT CHARTMAKER ([facility]) Name Value Range Interpretation Code Description Data Julia rce(s) Supporting Document(s) BILIRUBIN,TOTAL 4.4 mg/dL BILIRUBIN,TOTAL: 4. 4 mg/dL 01/17/2020 CHARTMAKER ([facility]) ID Date Data Source [id number] 01/17/2020 12:00:00 AM EDT CHARTMAKER ([facility]) Name Value Range Interpretation Code Description Data Julia rce(s) Supporting Document(s) ALKALINE PHOSPHATASE 175 U/L ALKALINE PHOSPH ATASE: 175 U/L 01/17/2020 CHARTMAKER ([facility]) ID Date Data Source [id number] 01/17/2020 12:00:00 AM EDT CHARTMAKER ([facility]) Name Value Range Interpretation Code Description Data Julia rce(s) Supporting Document(s) ALB/GLOB RATIO 0.5 RATIO ALB/GLOB RATIO: 0.5 RATIO 01/17/2020 CHARTMAKER ([facility]) ID Date Data Source [id number] 01/17/2020 12:00:00 AM EDT CHARTMAKER ([facility]) Name Value Range Interpretation Code Description Data Julia rce(s) Supporting Document(s) GLOBULIN 4.6 g/dL GLOBULIN: 4.6 g/dL 020 CHARTMAKER ([facility]) ID Date Data Source [id number] 01/17/2020 12:00:00 AM EDT CHARTMAKER ([facility]) Name Value Range Interpretation Code Description Data Julia rce(s) Supporting Document(s) ALBUMIN 2.3 g/dL ALBUMIN: 2.3 g/dL 01/17/20 20 CHARTMAKER ([facility]) ID Date Data Source [id number] 01/17/2020 12:00:00 AM EDT CHARTMAKER ([facility]) Name Value Range Interpretation Code Description Data Julia rce(s) Supporting Document(s) TOTAL PROTEIN 6.9 g/dL TOTAL PROTEIN: 6.9 g/ dL 01/17/2020 CHARTMAKER ([facility]) ID Date Data Source [id number] 01/17/2020 12:00:00 AM EDT CHARTMAKER ([facility]) Name Value Range Interpretation Code Description Data Julia rce(s) Supporting Document(s) CALCIUM 8.4 mg/dL CALCIUM: 8.4 mg/dL 020 CHARTMAKER ([facility]) ID Date Data Source [id number] 01/17/2020 12:00:00 AM EDT CHARTMAKER ([facility]) Name Value Range Interpretation Code Description Data Julia rce(s) Supporting Document(s) Glucose [Mass/volume] in Serum or Plasma 97 mg/dL Glucose: 97 mg/dL 01/17/2020 CHARTMAKER ([facility]) ID Date Data Source [id number] 01/17/2020 12:00:00 AM EDT CHARTMAKER ([facility]) Name Value Range Interpretation Code Description Data Julia rce(s) Supporting Document(s) BUN/CREAT RATIO 15.4 RATIO BUN/CREAT RATIO: 15 .4 RATIO 01/17/2020 CHARTMAKER ([facility]) ID Date Data Source [id number] 01/17/2020 12:00:00 AM EDT CHARTMAKER ([facility]) Name Value Range Interpretation Code Description Data Julia rce(s) Supporting Document(s) Creatinine 0.52 mg/dL Creatinine: 0.52 mg/dL CHARTMAKER ([facility]) ID Date Data Source [id number] 01/17/2020 12:00:00 AM EDT CHARTMAKER ([facility]) Name Value Range Interpretation Code Description Data Julia rce(s) Supporting Document(s) UREA NITROGEN 8 mg/dL UREA NITROGEN: 8 mg/d L 01/17/2020 CHARTMAKER ([facility]) ID Date Data Source [id number] 01/17/2020 12:00:00 AM EDT CHARTMAKER ([facility]) Name Value Range Interpretation Code Description Data Julia rce(s) Supporting Document(s) ANION GAP 3 mmol/L ANION GAP: 3 mmol/L 2019 CHARTMAKER ([facility]) ID Date Data Source [id number] 01/17/2020 12:00:00 AM EDT CHARTMAKER ([facility]) Name Value Range Interpretation Code Description Data Julia rce(s) Supporting Document(s) CO2 33 mmol/L CO2: 33 mmol/L 01/17/2020 CHART MAKER ([facility]) ID Date Data Source [id number] 01/17/2020 12:00:00 AM EDT CHARTMAKER ([facility]) Name Value Range Interpretation Code Description Data Julia rce(s) Supporting Document(s) CHLORIDE 99 mmol/L CHLORIDE: 99 mmol/L 2019 CHARTMAKER ([facility]) ID Date Data Source [id number] 01/17/2020 12:00:00 AM EDT CHARTMAKER ([facility]) Name Value Range Interpretation Code Description Data Julia rce(s) Supporting Document(s) Potassium 3.6 mmol/L Potassium: 3.6 mmol/L 01/17/2020 CHARTMAKER ([facility]) ID Date Data Source [id number] 01/17/2020 12:00:00 AM EDT CHARTMAKER ([facility]) Name Value Range Interpretation Code Description Data Julia rce(s) Supporting Document(s) SODIUM 135 mmol/L SODIUM: 135 mmol/L 020 CHARTMAKER ([facility] [place]) Procedure Social History Code Duration Value Status Description Data Source(s ) Smoking 01/17/2020 12:00:00 AM EDT Smoker, current status unkn own completed Smoker, current status unknown CHARTMAKER ([facility] [place]) Vital Signs ID Date Data Source UNK Name Value Range Interpretation Code Description Data Source(s) Body height 61 [in_i] 61 [in_i] LENNOX ([facility]) Body height 61 [in_i] 61 [in_i] LENNOX ([facility]) Body height 61 [in_i] 61 [in_i] LENNOX ([facility]) Body weight 2384 [oz_av] 2384 [oz_av] LENNOX ([facility]) Systolic blood pressure 113 mm[Hg] 113 mm[Hg] A [facility] ([facility]) Body mass index (BMI) [Ratio] 28.2 kg/m2 28.2 k g/m2 LENNOX ([facility]) Body height 61 [in_i] 61 [in_i] LENNOX ([facility]) Diastolic blood pressure 75 mm[Hg] 75 mm[Hg] LENNOX ([facility]) Body weight 2384 [oz_av] 2384 [oz_av] LENNOX ([facility]) Systolic blood pressure 113 mm[Hg] 113 mm[Hg] A [facility] ([facility]) Body mass index (BMI) [Ratio] 28.2 kg/m2 28.2 k g/m2 LENNOX ([facility]) Body height 61 [in_i] 61 [in_i] LENNOX ([facility]) Diastolic blood pressure 75 mm[Hg] 75 mm[Hg] LENNOX ([facility]) Body weight 2384 [oz_av] 2384 [oz_av] LENNOX ([facility]) Systolic blood pressure 113 mm[Hg] 113 mm[Hg] A [facility] ([facility]) Body mass index (BMI) [Ratio] 28.2 kg/m2 28.2 k g/m2 LENNOX ([facility]) Body height 61 [in_i] 61 [in_i] LENNOX ([facility]) Diastolic blood pressure 75 mm[Hg] 75 mm[Hg] LENNOX ([facility]) Body weight 2448 [oz_av] 2448 [oz_av] LENNOX ([facility]) Systolic blood pressure 127 mm[Hg] 127 mm[Hg] A [facility] ([facility]) Body mass index (BMI) [Ratio] 28.9 kg/m2 28.9 k g/m2 LENNOX ([facility]) Body height 61 [in_i] 61 [in_i] LENNOX ([facility]) Diastolic blood pressure 80 mm[Hg] 80 mm[Hg] LENNOX ([facility]) Body weight 2448 [oz_av] 2448 [oz_av] LENNOX ([facility]) Systolic blood pressure 127 mm[Hg] 127 mm[Hg] A THENA ([facility]) Body mass index (BMI) [Ratio] 28.9 kg/m2 28.9 k g/m2 LENNOX ([facility]) Body height 61 [in_i] 61 [in_i] LENNOX ([facility]) Diastolic blood pressure 80 mm[Hg] 80 mm[Hg] LENNOX ([facility]) Body weight 2448 [oz_av] 2448 [oz_av] LENNOX ([facility]) Systolic blood pressure 127 mm[Hg] 127 mm[Hg] A THENA ([facility]) Body mass index (BMI) [Ratio] 28.9 kg/m2 28.9 k g/m2 LENNOX ([facility]) Body height 61 [in_i] 61 [in_i] LENNOX ([facility]) Diastolic blood pressure 80 mm[Hg] 80 mm[Hg] LENNOX ([facility]) Body weight 2448 [oz_av] 2448 [oz_av] LENNOX ([facility]) Systolic blood pressure 127 mm[Hg] 127 mm[Hg] A [facility] ([facility]) Body mass index (BMI) [Ratio] 28.9 kg/m2 28.9 k g/m2 LENNOX ([facility]) Body height 61 [in_i] 61 [in_i] LENNOX ([facility]) Diastolic blood pressure 80 mm[Hg] 80 mm[Hg] LENNOX ([facility]) Body weight 2627.2 [oz_av] 2627.2 [oz_av] ATHEN A ([facility]) Systolic blood pressure 108 mm[Hg] 108 mm[Hg] A [facility] ([facility]) Body height 61 [in_i] 61 [in_i] LENNOX ([facility]) Diastolic blood pressure 71 mm[Hg] 71 mm[Hg] LENNOX ([facility]) Body weight 2627.2 [oz_av] 2627.2 [oz_av] ATHEN A ([facility]) Systolic blood pressure 108 mm[Hg] 108 mm[Hg] A [facility] ([facility]) Body height 61 [in_i] 61 [in_i] LENNOX ([facility]) Diastolic blood pressure 71 mm[Hg] 71 mm[Hg] LENNOX ([facility]) Body weight 2627.2 [oz_av] 2627.2 [oz_av] ATHEN A ([facility]) Systolic blood pressure 108 mm[Hg] 108 mm[Hg] A [facility] ([facility]) Body height 61 [in_i] 61 [in_i] LENNOX ([facility]) Diastolic blood pressure 71 mm[Hg] 71 mm[Hg] LENNOX ([facility]) Body weight 2627.2 [oz_av] 2627.2 [oz_av] ATHEN A ([facility]) Systolic blood pressure 108 mm[Hg] 108 mm[Hg] A [facility] ([facility]) Body height 61 [in_i] 61 [in_i] LENNOX ([facility]) Diastolic blood pressure 71 mm[Hg] 71 mm[Hg] LENNOX ([facility]) Body weight 74.844 kg 74.844 kg [facility] ([facility], ) Body mass index (BMI) [Ratio] 31.2 kg/m2 31.2 k g/m2 [facility] ([facility]) Body weight 165.00 [lb_av] 165.00 [lb_av] JOEEN T ([facility], ) Body height 61 [in_i] 61 [in_i] DONNA ([facility], ) 5'1" Diastolic blood pressure 68 mm[Hg] 68 mm[Hg] [facility] ([facility]) Systolic blood pressure 128 mm[Hg] 128 mm[Hg] M PRISCILLA ([facility], ) Body weight 2596 [oz_av] 2596 [oz_av] LENNOX ([facility]) Systolic blood pressure 101 mm[Hg] 101 mm[Hg] A [facility] ([facility]) Body height 61 [in_i] 61 [in_i] LENNOX ([facility]) Diastolic blood pressure 70 mm[Hg] 70 mm[Hg] LENNOX ([facility]) Body weight 2596 [oz_av] 2596 [oz_av] LENNOX ([facility]) Systolic blood pressure 101 mm[Hg] 101 mm[Hg] A [facility] ([facility]) Body height 61 [in_i] 61 [in_i] LENNOX ([facility]) Diastolic blood pressure 70 mm[Hg] 70 mm[Hg] LENNOX ([facility]) Body weight 2596 [oz_av] 2596 [oz_av] LENNOX ([facility]) Systolic blood pressure 101 mm[Hg] 101 mm[Hg] A [facility] ([facility]) Body height 61 [in_i] 61 [in_i] LENNOX ([facility]) Diastolic blood pressure 70 mm[Hg] 70 mm[Hg] LENNOX ([facility]) Body weight 2596 [oz_av] 2596 [oz_av] LENNOX ([facility]) Systolic blood pressure 101 mm[Hg] 101 mm[Hg] A [facility] ([facility]) Body height 61 [in_i] 61 [in_i] LENNOX ([facility]) Diastolic blood pressure 70 mm[Hg] 70 mm[Hg] LENNOX ([facility]) Body weight 77.112 kg 77.112 kg [facility], ) Body mass index (BMI) [Ratio] 32.1 kg/m2 32.1 k g/m2 [facility] ([facility]) Body weight 170.00 [lb_av] 170.00 [lb_av] MEDEN T ([facility]) Body height 61 [in_i] 61 [in_i] [facility] 5'1" Body weight 81.648 kg 81.648 kg [facility] ([facility]) Body mass index (BMI) [Ratio] 34.0 kg/m2 34.0 k g/m2 [facility] ([facility]) Body weight 180.00 [lb_av] 180.00 [lb_av] MEDEN T ([facility]) Body height 61 [in_i] 61 [in_i] [facility] 5'1" Diastolic blood pressure 64 mm[Hg] 64 mm[Hg] [facility] ([facility]) Systolic blood pressure 118 mm[Hg] 118 mm[Hg] M VIVEKJEANNIE ([facility], ) Body weight 2752 [oz_av] 2752 [oz_av] LENNOX ([facility]) Systolic blood pressure 121 mm[Hg] 121 mm[Hg] A THENA ([facility]) Body height 61 [in_i] 61 [in_i] LENNOX ([facility]) Diastolic blood pressure 78 mm[Hg] 78 mm[Hg] LENNOX ([facility]) Body weight 2752 [oz_av] 2752 [oz_av] LENNOX ([facility]) Systolic blood pressure 121 mm[Hg] 121 mm[Hg] A THENA ([facility]) Body height 61 [in_i] 61 [in_i] LENNOX ([facility]) Diastolic blood pressure 78 mm[Hg] 78 mm[Hg] LENNOX ([facility]) Body weight 2752 [oz_av] 2752 [oz_av] LENNOX ([facility]) Systolic blood pressure 121 mm[Hg] 121 mm[Hg] A [facility] ([facility]) Body height 61 [in_i] 61 [in_i] LENNOX ([facility]) Diastolic blood pressure 78 mm[Hg] 78 mm[Hg] LENNOX ([facility]) Body weight 2752 [oz_av] 2752 [oz_av] LENNOX ([facility]) Systolic blood pressure 121 mm[Hg] 121 mm[Hg] A [facility] ([facility]) Body height 61 [in_i] 61 [in_i] LENNOX ([facility]) Diastolic blood pressure 78 mm[Hg] 78 mm[Hg] LENNOX ([facility]) Body weight 3286.08 [oz_av] 3286.08 [oz_av] ATH KIM ([facility]) Systolic blood pressure 131 mm[Hg] 131 mm[Hg] A [facility] ([facility]) Body height 61 [in_i] 61 [in_i] LENNOX ([facility]) Diastolic blood pressure 80 mm[Hg] 80 mm[Hg] LENNOX ([facility]) Body weight 3286.08 [oz_av] 3286.08 [oz_av] ATH KIM ([facility]) Systolic blood pressure 131 mm[Hg] 131 mm[Hg] A [facility] ([facility]) Body height 61 [in_i] 61 [in_i] LENNOX ([facility]) Diastolic blood pressure 80 mm[Hg] 80 mm[Hg] LENNOX ([facility]) Body weight 3286.08 [oz_av] 3286.08 [oz_av] ATH KIM ([facility]) Systolic blood pressure 131 mm[Hg] 131 mm[Hg] A [facility] ([facility]) Body height 61 [in_i] 61 [in_i] LENNOX ([facility]) Diastolic blood pressure 80 mm[Hg] 80 mm[Hg] LENNOX ([facility]) Body weight 3286.08 [oz_av] 3286.08 [oz_av] ATH KIM ([facility]) Systolic blood pressure 131 mm[Hg] 131 mm[Hg] A THENA ([facility]) Body height 61 [in_i] 61 [in_i] LENNOX ([facility]) Diastolic blood pressure 80 mm[Hg] 80 mm[Hg] LENNOX ([facility]) Inhaled oxygen concentration 21 % 21 % CHARTMAKER ([facility]) Oxygen saturation in Arterial blood by Pulse oximetry 97 % 97 % CHARTMAKER ([facility]) Body mass index (BMI) [Ratio] 35.1674185492247 kg/m2 35.6830829959578 kg/m2 CHARTMAKER ([facility]) Body weight 189 [lb_av] 189 [lb_av] CHARTMAKER ([facility]) Body height 61 [in_i] 61 [in_i] CHARTMAKER ([facility]) Diastolic blood pressure 78 mm[Hg] 78 mm[Hg] CHARTMAKER ([facility]) Systolic blood pressure 128 mm[Hg] 128 mm[Hg] C HARTMAKER ([facility]) Respiratory rate 16 /min 16 /min CHARTMAK ER ([facility]) Heart rate 95 /min 95 /min CHARTMAKER ([facility]) Body temperature 99.2 [degF] 99.2 [degF] DAMEON NUÑEZ ([facility]) ID Date Data Source [id number] 03/26/2020 03:10:[address] [facility] Name Value Range Interpretation Code Description Data Source(s) Weight Measurement Method 1 1 [facility] Weight (Calculated Kilograms) 93.44 93.44 [facility] Weight 3358.4 3358.4 [facility] Temperature Source 7 7 [facility] Temperature [address] [facility] Respiratory Effort 1 1 [facility] Respiratory Rate 18 18 [facility] Pulse Assessment Method 4 4 [facility] Pulse Rate 118 118 [facility] Height (Calculated Centimeters) 154.94 154. 94 [facility] Height 61 61 [facility] Blood Pressure 133/88 133/88 [facility] Body Mass Index (BMI) 38.9 38.9 [place] [facility] Method 1 1 [facility] Weight (Calculated Kilograms) 93.44 93.44 [facility] Weight 3358.4 3358.4 [facility] Temperature Source 7 7 [facility] Temperature [address] [facility] Respiratory Effort 1 1 [facility] Respiratory Rate 18 18 [facility] Pulse Assessment Method 4 4 [facility] Pulse Rate 118 118 [facility] Height (Calculated Centimeters) 154.94 154. 94 [facility] Height 61 61 [facility] Blood Pressure 133/88 133/88 [facility] Body Mass Index (BMI) 38.9 38.9 [facility] Weight Measurement Method 1 1 [facility] Weight (Calculated Kilograms) 93.44 93.44 [facility] Weight 3358.4 3358.4 [facility] Temperature Source 7 7 [facility] Temperature [address] [facility] Respiratory Effort 1 1 [facility] Respiratory Rate 18 18 [facility] Pulse Assessment Method 4 4 [facility] Pulse Rate 118 118 [facility] Height (Calculated Centimeters) 154.94 154. 94 [facility] Height 61 61 [facility] Blood Pressure 133/88 133/88 [facility] Body Mass Index (BMI) 38.9 38.9 [facility] Weight Measurement Method 1 1 [facility] Weight (Calculated Kilograms) 93.44 93.44 [facility] Weight 3152 3152 [facility] Temperature Source 7 7 [facility] Temperature 98.[address] [facility] Respiratory Effort 1 1 [facility] Respiratory Rate 20 20 [facility] Pulse Assessment Method 4 4 [facility] Pulse Rate 122 122 [facility] Height (Calculated Centimeters) 154.94 154. 94 [facility] Height 61 61 [facility] Blood Pressure 97/61 97/61 [facility] Body Mass Index (BMI) 38.9 38.9 [facility] Weight Measurement Method 1 1 [facility] Weight (Calculated Kilograms) 93.44 93.44 [facility] Weight 3128 3128 [facility] Temperature Source 7 7 [facility] Temperature 98.[address] [facility] Respiratory Effort 1 1 [facility] Respiratory Rate 20 20 [facility] Pulse Assessment Method 4 4 [facility] Pulse Rate 118 118 [facility] Height (Calculated Centimeters) 154.94 154. 94 [facility] Height 61 61 [facility] Blood Pressure 88/52 88/52 [facility] Body Mass Index (BMI) 38.9 38.9 [facility] Weight Measurement Method 1 1 [facility] Weight (Calculated Kilograms) 93.44 93.44 [facility] Weight 3296 3296 [facility] Temperature Source 7 7 [facility] Temperature 98.[address] [facility] Respiratory Rate 16 16 [facility] Pulse Assessment Method 4 4 [facility] Pulse Rate 130 130 [facility] Height (Calculated Centimeters) 154.94 154. 94 [facility] Height 61 61 [facility] Blood Pressure 104/66 104/66 [facility] Body Mass Index (BMI) 38.9 38.9 [facility] ID Date Data Source [id number] 03/19/2020 12:09:[address] [facility] Name Value Range Interpretation Code Description Data Source(s) Weight Measurement Method 8 8 [facility] Weight 3360 3360 [facility] 1 1 [facility] Temperature 98.[address] [facility] Respiratory Effort 1 1 [facility] Respiratory Rate 16 16 [facility] Pulse Assessment Method 4 4 [facility] Pulse Rate 107 107 [facility] Height 61 61 [facility] Blood Pressure 136/99 136/99 [facility] Weight Measurement Method 8 8 [facility] Weight 3360 3360 [facility] Temperature Source 7 7 [facility] Temperature 99.0 99.0 [facility] Respiratory Effort 1 1 [facility] Respiratory Rate 18 18 [facility] Pulse Assessment Method 4 4 [facility] Pulse Rate 105 105 [facility] Height 61 61 [facility] Blood Pressure 138/105 138/105 [facility] Patient Treatment Plan of Care Planned Activity Planned Date Details Description Data Source (s) zaleplon 5 MG Oral Capsule A THENA ([facility]) venlafaxine 37.5 MG Oral Tablet LENNOX ([facility]) torsemide 20 MG Oral Tablet L[facility]NOX ([facility]) Spironolactone 25 MG Oral Tablet [facility]X ([facility]) Shingrix (PF) 50 mcg/0.5 mL [facility] Lactulose 667 MG/ML Oral Solution LENNOX ([facility]) Lactulose 667 MG/ML Oral Solution LENNOX ([facility]) Furosemide 40 MG Oral Tablet L[facility]X ([facility]) Furosemide 20 MG Oral Tablet [facility]X ([facility]) Fluzone Quad 60 mcg (15 mcg x 4)/0.5 mL intramuscular susp. INJECT INTO THE LEFT ARM DIRECTED AT [facility]) [facility]fl[facility] 500 [facility] Cephalexin 500 MG Oral Capsule LENNOX ([facility]) zaleplon 5 MG Oral Capsule A THENA [facility]) Spiron[facility]actone 25 [facility] Lactulose 667 MG/ML Oral Solution LENNOX [facility]) Furosemide 20 MG Oral Tablet L[facility]X ([facility]) Fluzone Quad 60 mcg (15 mcg x 4)/0.5 mL intramuscular susp. INJECT INTO THE LEFT ARM DIRECTED AT [facility]) [facility]phalexin 500 [facility] zaleplon 5 MG Oral Capsule A THENA [facility]) Spironolactone 25 MG Oral Tablet LENNOX ([facility]) Lactulose 667 MG/ML [facility] Fluzone Quad 60 mcg (15 mcg x 4)/0.5 mL intramuscular susp. INJECT INTO THE LEFT ARM DIRECTED AT NORY ([facility]) Cephalexin 500 MG Oral Capsule LENNOX ([facility]) zaleplon 5 MG Oral Capsule A KOJO ([facility]) Spironolactone 25 MG Oral Tablet LENNOX ([facility]) Lactulose 667 MG/ML Oral Solution LENNOX ([facility]) Furosemide 20 MG Oral Tablet [facility]X ([facility])
[2020-11-15 16:52] LABS: BASO % 0.4 % (0.0-1.0); EOS # 0.1 10^3/uL (0.0-0.5); EOS % 1.1 % (0.0-3.0); HEMOGLOBIN 9.4 g/dl (12.0-15.5); LYMPH # 0.7 10^3/uL (1.5-5.0); LYMPH % 9.1 % (24.0-44.0); MEAN CORPUSCULAR HEMOGLOBIN 31.8 pg (27.0-33.0); MEAN CORPUSCULAR HGB CONC 36.2 g/dl (32.0-36.5); MEAN CORPUSCULAR VOLUME 87.8 fl (80.0-96.0); MONO # 1.1 10^3/uL (0.0-0.8); MONO % 13.8 % (0.0-5.0); NEUTROPHILS % 75.1 % (36.0-66.0); PLATELET COUNT, AUTOMATED 120 10^3/uL (150-450); RED BLOOD COUNT 2.96 10^6/uL (4.00-5.40)
--- OUTSIDE RECORDS SUMMARY | 2020-11-15 17:17 | CCD ---
Author Author [facility] Organization [facility] Address Unknown Phone Unavailable Care Team Providers Care Transportation Driver Name Role Phone STEVENS, W KAILA PA [...] W KAILA PA Unavailable Unavailable STEVENS, W AKILA PA Unavailable Unavailable STEVENS, W KAILA PA [...] Hathaway PA Unavailable Unavailable Cougler, S Kiel ELECTRICAL TECH Unavailable Unavailable Cougler, S Kiel ELECTRICAL TECH Unavailable Unavailable Cougler, S Kiel ELECTRICAL TECH Unavailable Unavailable Cougler, S Kiel ELECTRICAL TECH Unavailable Unavailable Cougler, S Kiel ELECTRICAL TECH Unavailable Unavailable Cougler, S Kiel ELECTRICAL TECH Unavailable Unavailable Cougler, S Kiel ELECTRICAL TECH Unavailable Unavailable Cougler, S Kiel ELECTRICAL TECH Unavailable Unavailable Cougler, S Kiel ELECTRICAL TECH Unavailable Unavailable Cougler, S Kiel ELECTRICAL TECH Unavailable Unavailable Cougler, S Kiel ELECTRICAL TECH Unavailable Unavailable Cougler, S Kiel ELECTRICAL TECH Unavailable Unavailable Cougler, S Kiel ELECTRICAL TECH Unavailable Unavailable Cougler, S Kiel ELECTRICAL TECH Unavailable Unavailable Cougler, S Kiel ELECTRICAL TECH Unavailable Unavailable Cougler, S Kiel ELECTRICAL TECH Unavailable Unavailable Cougler, S Kiel ELECTRICAL TECH Unavailable Unavailable Cougler, S Kiel ELECTRICAL TECH Unavailable Unavailable Cougler, S Kiel ELECTRICAL TECH Unavailable Unavailable Cougler, S Kiel ELECTRICAL TECH Unavailable Unavailable Cougler, S Kiel ELECTRICAL TECH Unavailable Unavailable Cougler, S Kiel ELECTRICAL TECH Unavailable Unavailable Cougler, S Kiel ELECTRICAL TECH Unavailable Unavailable Cougler, S Kiel ELECTRICAL TECH Unavailable Unavailable Cougler, S Kiel ELECTRICAL TECH Unavailable Unavailable Cougler, S Kiel ELECTRICAL TECH Unavailable Unavailable Cougler, S Kiel ELECTRICAL TECH Unavailable Unavailable Cougler, S Kiel ELECTRICAL TECH Unavailable Unavailable Cougler, S Kiel ELECTRICAL TECH Unavailable Unavailable Cougler, S Kiel ELECTRICAL TECH Unavailable Unavailable Cougler, S Kiel ELECTRICAL TECH Unavailable Unavailable Cougler, S Kiel ELECTRICAL TECH Unavailable Unavailable Cougler, S Kiel ELECTRICAL TECH Unavailable Unavailable Cougler, S Kiel ELECTRICAL TECH Unavailable Unavailable Cougler, S Kiel ELECTRICAL TECH Unavailable Unavailable Cougler, S Kiel ELECTRICAL TECH Unavailable Unavailable Cougler, S Kiel ELECTRICAL TECH Unavailable Unavailable Cougler, S Kiel ELECTRICAL TECH Unavailable Unavailable Cougler, S Kiel ELECTRICAL TECH Unavailable Unavailable SONIYA CHENG MD Unavailable Unavailable [...] Unavailable BRERIOS, JACKIE JOE RPA-C Unavailable Unavailable Moussallem, Cristino [...] Unavailable PENDLETON, BRUCE PA Unavailable Unavailable Yesika LEHCUGA MD Unavailable Unavailable Yesika LECHUGA MD Unavailable [...] is protected by Article 27-F of the [facility] Public Health law. If you continue you may have access to information: Regarding HIV / AIDS; Provided by facilities licensed or operated by the [facility] Office of Mental Health; or Provided by the [facility] Office for People With Developmental Disabilities. If such information is present, then the following [facility] mandated warning applies: This information has been [...] law may result in a fine or half-way sentence or both. A general authorization for the release of medical or other information is NOT sufficient authorization for further disc losure. Allergies and Adverse Reactions Type Description Substance Reaction Status Data Source(s ) Allergy to substance Moderate to Severe [facility] to substance Moderate to Severe [facility] Allergy to substance Moderate to Severe [facility] Allergy to substance Allergy to [facility] Allergy to substance Allergy to substance ramelteon [place] ([facility]) Allergy to substance Allergy to substance ramelteon [place] ([facility]) Drug allergy RAMELTEON RAM[facility] diarrhea [facility] Allergy to substance Allergy to substance ramelteon [place] ([facility]) Drug allergy Drug allergy No Known Allergies [facility] Drug allergy Drug allergy No Known Allergies [facility] Encounters Encounter Providers Location Date Indications Data Source(s ) Mag Scordo, PA-C: [address], [place] [address], Ph. Attender: Mag SALCEDO [facility] 10/30/2020 12:00:00 AM EST [place] ([facility]) Joe Berrios RPA-C: [address], [place] [address], Ph. Attender: JOE BERRIOS RPA-C [facility] 10/09/2020 12:00:00 AM EST [place] ([facility]) Joe Berrios RPA-C: [address], [place] [address], Ph. Attender: JOE BERRIOS RPA-C [facility] 10/09/2020 12:00:00 AM EST [place] ([facility]) Joe Berrios RPA-C: [address], [place] [address], Ph. Attender: JOE BERRIOS RPA-C [facility] 09/10/2020 12:00:00 AM EST [place] ([facility]) Joe Berrios RPA-C: [address], [place] [address], Ph. Attender: JOE BERRIOS RPA-C [facility] 09/10/2020 12:00:00 AM EST [place] ([facility]) Joe Berrios RPA-C: [address], [place] [address], Ph. Attender: JOE BERRIOS RPA-C [facility] 09/10/2020 12:00:00 AM EST [place] ([facility]) Joe Berrios, RPA-C: [address], [place] [address], Ph. Attender: JOE BERRIOS RPA-C [facility] 08/14/2020 12:00:00 AM EST [place] ([facility]) Joe Berrios RPA-C: [address], [place] [address], Ph. Attender: JOE BERRIOS RPA-C [facility] 08/14/2020 12:00:00 AM EST [place] ([facility]) Joe Berrios RPA-C: [address], [place] [address], Ph. Attender: JOE BERRIOS RPA-C [facility] 08/14/2020 12:00:00 AM EST [place] ([facility]) Joe Berrios RPA-C: [address], [place] [address], Ph. Attender: JOE BERRIOS RPA-C [facility] 08/14/2020 12:00:00 AM EST [place] ([facility]) Outpatient Attender: JOE BERRIOS RPA-C ALL 07/19/2020 12:00:32 AM EDT [facility] Outpatient Attender: JOSLYN MORRISON ALL 02/2020 05:29:02 PM EDT [facility] Outpatient Attender: JOSLYN MORRISON ALL 06/13 08:57:04 AM EDT [facility] Outpatient Attender: JOE BERRIOS RPA-C ALL 07/03/2020 08:57:02 AM EDT [facility] Outpatient Attender: JOSLYN MORRISON ALL 06/12 09:22:01 AM EDT [facility] Outpatient Attender: JOE BERRIOS RPA-C ALL 06/21/2020 12:00:44 AM EDT [facility] Outpatient Attender: JOE BERRIOS RPA-C ALL 06/11/2020 10:38:01 AM EDT [facility] Outpatient Attender: JOSLYN BERRIOS DENISSE JOE MORRISON ALL 05/12 12:39:01 PM EDT [facility] Outpatient Attender: JOE BERRIOS RPA-C ALL 05/11/2020 12:00:10 AM EDT [facility] Outpatient Attender: JOE BERRIOS RPA-C ALL 05/10/2020 02:36:02 PM EDT [facility] Outpatient Attender: JOSLYN BERRIOS DENISSE JOE MORRISON ALL 04/11 08:31:02 AM EDT [facility] Outpatient Attender: ZION Orellana/Naeem/Kerwin harris/Reinfabián 04/17/2020 11:40:00 AM EDT [facility] Out[facility] Attender: JOSLYN MORRISON ALL 10/2019 04:12:01 PM EDT [facility] Outpatient Attender: JOE BERRIOS RPA-C ALL 04/11/2020 04:11:59 PM EDT [facility] Outpatient Attender: JOE BERRIOS RPA-C ALL 04/09/2020 10:16:02 AM EDT [facility] Outpatient Attender: JOSLYN BERRIOS DENISSE JOE MORRISON ALL 03/13 05:23:01 PM EDT [facility] Outpatient Attender: JOE BERRIOS RPA-C ALL 04/06/2020 05:22:59 PM EDT [facility] Outpatient Attender: JOSLYN BERRIOS DENISSE JOE MORRISON ALL 03/13 08:59:00 AM EDT [facility] Outpatient Attender: JOE BERRIOS RPA-C ALL 03/27/2020 02:02:02 PM EDT [facility] Inpatient Attender: Soniya Spangler DAttender: SONIYA CHENG MDAttender: Hector Mcgee MDAdmitter: SONIYA CEHNG MDConsultant: Bruce Pendleton-Trim PAConsultant: BRUCE SALCEDO CPSCAORT-MSU3 03/17/2020 09:06:00 PM E DT - 03/22/2020 03:09:00 PM EDT ALCOHOLISM, ASCITES [facility] ALCOHOLISM, ASCITES Patient discharged. Preadmit Attender: Gwyn Tavarez MD CPSCAORT-ED 03/17/2020 08:47:00 PM EDT [facility] Emergency Attender: Kiel Marcos ELECTRICAL TECH ED-ED 03/17 04:07:00 PM EDT - 03/17/2020 07:34:00 PM EDT SOB, FLUID IN ABD, SPIDER BITE RT FOOT [facility] SOB, FLUID IN ABD, SPIDER BITE RT FOOT Patient discharged. Preadmit Attender: Alvin Garber MD [id number] 03/17/2020 12:00:00 AM EDT F10.20 [facility] F10.20 Outpatient 01/17/2020 10:54:32 AM EDT [facility] ([facility]) OutpatientOFFICE/OUTPATIENT VISIT, NEW 01/17/2020 Attender: KAILA SALCEDO 01/17/2020 09:49:17 AM EDT [facility] ([facility]) Immunizations Vaccine Date Status Description Data Source(s) New in 2012. IIV4 08/17/2020 12:00:00 AM EST completed 08/17/20 [facility]) New in 2012. IIV4 08/17/2020 12:00:00 AM EST completed 08/17/20 [facility]) New in 2012. IIV4 08/17/2020 12:00:00 AM EST completed 08/17/20 [facility]) Medications Medication Brand Name Start Date Product Form Dose Route Admi nistrative Instructions Pharmacy Instructions Status Indications Reaction Description Data Source(s) gabapentin 300 MG Oral Capsule Gabapentin 05/30/2020 12:00:00 AM EDT ORAL active [facility], [facility] Ciprofloxacin 500 MG Oral Tablet Ciprofloxacin HCL 05/30/2020 12:00 :00 AM EDT ORAL active [facility] ([facility], ) Ensure Active High Protein 05/24/2020 12:00:00 AM EDT active [facility] ([facility], ) pantoprazole 40 MG Delayed Release Oral Tablet Pantoprazole Sodium 04/24/2020 12:00:00 AM EDT active M EDENT ([facility], ) zaleplon 5 MG Oral Capsule Zaleplon 04/20/2020 12:00:00 AM EDT ORAL completed [facility] ([facility], ) Famotidine 40 MG Oral Tablet Famotidine 04/17/2020 12:00:00 AM EDT completed [facility] ([facility], ) ramelteon 8 MG Oral Tablet Ramelteon 04/17/2020 12:00:00 AM EDT completed [facility] ([facility], ) Spironolactone 100 MG Oral Tablet spironolactone 100 m g tablet spironolactone 100 mg tablet 01/17/2020 12:00:00 AM EDT 1 comp leted , Take 1 tablet orally Every day 01/17/2020 [facility] ([facility]) Furosemide 40 MG Oral Tablet [Lasix] Lasix 40 mg tablet Lasi x 40 mg tablet 01/17/2020 12:00:00 AM EDT 1 completed , Take 1 tablet orally Every day 01/17/2020 [facility] ([facility]) 100 mg 01/17/2020 12:00:00 AM [...] completed lactulose 667 MG/ML Oral Solution [place] ([facility]) Cephalexin 500 MG Oral Capsule cephalexi n 500 mg capsule TAKE ONE CAPSULE BY MOUTH THREE TIMES A DAY cephalexin 500 mg capsule TAKE ONE CAPSU LE BY MOUTH THREE TIMES A DAY completed ceph alexin 500 MG Oral Capsule [place] ([facility]) torsemide 20 MG Oral Tablet torsemide 20 mg tablet torsemide 20 mg ta blet completed torsemide 20 MG Oral Tablet [place]) venlafaxine 37.5 MG Oral Tablet venlafaxine 37.5 mg ta blet venlafaxine 37.5 mg tablet completed venlafaxine 37. 5 MG Oral Tablet [place]) zaleplon 5 MG Oral Capsule zaleplon 5 mg capsule TAKE ONE CAPSULE BY MOUTH AT BEDTIME MAXIMUM DAILY DOSE 1 CAPSULE zaleplon 5 mg capsule TAKE ONE CAPSULE B Y MOUTH AT BEDTIME MAXIMUM DAILY DOSE 1 CAPSULE completed zaleplon 5 MG Oral Capsule [place]) Shingrix (PF) 50 mcg/0.5 mL intramuscular suspension, kit [id number] completed 0.[address] virus glycoprotein E, recombinant 0.1 MG/ML Injection [Shingrix] [place] ([facility]) Ciprofloxacin 500 MG Oral Tablet ciprofloxacin 500 mg tablet ciprofloxacin 500 mg tablet completed ciprofloxaci n 500 MG Oral Tablet [place] ([facility]) Spironolactone 25 MG Oral Tablet spirono lactone 25 mg tablet TAKE ONE TABLET BY MOUTH EVERY DAY spironolactone 25 mg tablet TAKE ONE TABLET BY MOUTH E VERY DAY completed spironolactone 25 MG Oral Tablet [place]) Furosemide 40 MG Oral Tablet furosemide 40 mg tablet TAKE 1.5 tablet QAM and 1.5 tablet QPM furosemide 40 mg tablet TAKE 1.5 tablet QAM and 1.5 tablet QPM completed furosemide 40 MG Oral Tablet [place]) Spironolactone 25 MG Oral Tablet spirono lactone 25 mg tablet TAKE ONE TABLET BY MOUTH EVERY DAY spironolactone 25 mg tablet TAKE ONE TABLET BY MOUTH E VERY DAY completed spironolactone 25 MG Oral Tablet [place]) Lactulose 667 MG/ML Oral Solution lactul ose 20 gram/30 mL oral solution TAKE 30ML BY MOUTH TWO TIMES A DAY lactulose 20 gram/30 mL oral solution TA KE 30ML BY MOUTH TWO TIMES A DAY completed lactulose 667 MG/ML Oral Solution [place] ([facility]) Cephalexin 500 MG Oral Capsule cephalexi n 500 mg capsule TAKE ONE CAPSULE BY MOUTH THREE TIMES A DAY cephalexin 500 mg capsule TAKE ONE CAPSU LE BY MOUTH THREE TIMES A DAY completed ceph alexin 500 MG Oral Capsule [place] ([facility]) Fluzone Quad 60 mcg (15 mcg x 4)/0.5 mL intramuscular susp. INJECT INTO THE LEFT ARM DIRECTED [id number] [facility] ed Fluzone Quad 60 mcg (15 mcg x 4)/0.5 mL intramuscular susp. [place] ([facility]) Furosemide 20 MG Oral Tablet furosemide 20 mg tablet TAKE ONE TABLET BY MOUTH EVERY DAY furosemide 20 mg tablet TAKE ONE TABLET BY MOUTH EVERY DAY completed furosemide 20 MG Oral Tablet [place] ([facility]) Lactulose 667 MG/ML Oral Solution lactul ose 20 gram/30 mL oral solution TAKE 30ML BY MOUTH TWO TIMES A DAY lactulose 20 gram/30 mL oral solution TA KE 30ML BY MOUTH TWO TIMES A DAY completed lactulose 667 MG/ML Oral Solution [place] ([facility]) Cephalexin 500 MG Oral Capsule cephalexi n 500 mg capsule TAKE ONE CAPSULE BY MOUTH THREE TIMES A DAY cephalexin 500 mg capsule TAKE ONE CAPSU LE BY MOUTH THREE TIMES A DAY completed ceph alexin 500 MG Oral Capsule [place] ([facility]) Spironolactone 25 MG Oral Tablet spirono lactone 25 mg tablet TAKE ONE TABLET BY MOUTH EVERY DAY spironolactone 25 mg tablet TAKE ONE TABLET BY MOUTH E VERY DAY completed spironolactone 25 MG Oral Tablet [place] ([facility]) zaleplon 5 MG Oral Capsule zaleplon 5 mg capsule TAKE ONE CAPSULE BY MOUTH AT BEDTIME MAXIMUM DAILY DOSE 1 CAPSULE zaleplon 5 mg capsule TAKE ONE CAPSULE B Y MOUTH AT BEDTIME MAXIMUM DAILY DOSE 1 CAPSULE completed zaleplon 5 MG Oral Capsule [place] ([facility]) Lactulose 667 MG/ML Oral Solution lactul ose 20 gram/30 mL oral solution TAKE 30ML BY MOUTH TWO TIMES A DAY lactulose 20 gram/30 mL oral solution TA KE 30ML BY MOUTH TWO TIMES A DAY completed lactulose 667 MG/ML Oral Solution [place] ([facility]) zaleplon 5 MG Oral Capsule zaleplon 5 mg capsule TAKE ONE CAPSULE BY MOUTH AT BEDTIME MAXIMUM DAILY DOSE 1 CAPSULE zaleplon 5 mg capsule TAKE ONE CAPSULE B Y MOUTH AT BEDTIME MAXIMUM DAILY DOSE 1 CAPSULE completed zaleplon 5 MG Oral Capsule [place] ([facility]) Furosemide 20 MG Oral Tablet furosemide 20 mg tablet TAKE ONE TABLET BY MOUTH EVERY DAY furosemide 20 mg tablet TAKE ONE TABLET BY MOUTH EVERY DAY completed furosemide 20 MG Oral Tablet [place] ([facility]) Furosemide 20 MG Oral Tablet furosemide 20 mg tablet TAKE ONE TABLET BY MOUTH EVERY DAY furosemide 20 mg tablet TAKE ONE TABLET BY MOUTH EVERY DAY completed furosemide 20 MG Oral Tablet [place] ([facility]) Lactulose 667 MG/ML Oral Solution lactul ose 20 gram/30 mL oral solution TAKE 30ML BY MOUTH TWO TIMES A DAY lactulose 20 gram/30 mL oral solution TA KE 30ML BY MOUTH TWO TIMES A DAY completed lactulose 667 MG/ML Oral Solution [place] ([facility]) Fluzone Quad 60 mcg (15 mcg x 4)/0.5 mL intramuscular susp. INJECT INTO THE LEFT ARM DIRECTED [id number] [facility] ed Fluzone Quad 60 mcg (15 mcg x 4)/0.5 mL intramuscular susp. [place] ([facility]) Spironolactone 25 MG Oral Tablet spirono lactone 25 mg tablet TAKE ONE TABLET BY MOUTH EVERY DAY spironolactone 25 mg tablet TAKE ONE TABLET BY MOUTH E VERY DAY completed spironolactone 25 MG Oral Tablet [place] ([facility]) Furosemide 20 MG Oral Tablet furosemide 20 mg tablet TAKE ONE TABLET BY MOUTH EVERY DAY furosemide 20 mg tablet TAKE ONE TABLET BY MOUTH EVERY DAY completed furosemide 20 MG Oral Tablet [place] ([facility]) Fluzone Quad 60 mcg (15 mcg x 4)/0.5 mL intramuscular susp. INJECT INTO THE LEFT ARM DIRECTED [id number] [facility] ed Fluzone Quad 60 mcg (15 mcg x 4)/0.5 mL intramuscular susp. [place] ([facility]) zaleplon 5 MG Oral Capsule zaleplon 5 mg capsule TAKE ONE CAPSULE BY MOUTH AT BEDTIME MAXIMUM DAILY DOSE 1 CAPSULE zaleplon 5 mg capsule TAKE ONE CAPSULE B Y MOUTH AT BEDTIME MAXIMUM DAILY DOSE 1 CAPSULE completed zaleplon 5 MG Oral Capsule [place] ([facility]) Insurance Providers Payer name Policy type / Coverage type Policy ID Covered republican ID Covered republican's relationship to bañuelos Policy Bañuelos Plan Information ROSEMARIE [id number] SP [id number] ROSEMARIE [id number] SP [id number] EMEDNY [id number] SP [id number] ROSEMARIE V[place] O [id number] S [id number] EMEDNY [id number] SP [id number] ROSEMARIE [id number] SP [id number] MEDICAID [id number] SELF PAY S MEDICAID [id number] MEDICAID [id number] SP [id number] SELF PAY ONLY NONE SP NONE ID IDENTIFICATION [id number] Other In surance [id number] Problems, Conditions, and Diagnoses Code Display Name Description Problem Type Effective Dates Data Source(s) 482463817 Major depressive disorder Major Depressive Disorder Pr oblem 10/09/2020 12:00:00 AM EST [place] ([facility]) 474843841 Major depressive disorder Major Depressive Disorder Pr oblem 10/09/2020 12:00:00 AM EST [place] ([facility]) 308278818 Compression fracture of lumbar spine Com pression Fracture of Lumbar Spine Problem 09/10/2020 12:00:00 AM EST [place] ([facility]) 142214539 Osteopenia Osteopenia Problem 09/10/2020 12:00:00 AM ES T [place] ([facility]) 352114881 Compression fracture of lumbar spine Com pression Fracture of Lumbar Spine Problem 09/10/2020 12:00:00 AM EST [place] ([facility]) 949422123 Osteopenia Osteopenia Problem 09/10/2020 12:00:00 AM ES T [place] ([facility]) 468916118 Compression fracture of lumbar spine Com pression Fracture of Lumbar Spine Problem 09/10/2020 12:00:00 AM EST [place] ([facility]) 784844703 Osteopenia Osteopenia Problem 09/10/2020 12:00:00 AM JULIA Reyes [place] ([facility]) V70.0 Encounter for general adult medical exam ination with abnormal findings Encounter for general adult medical examination with abnormal findings 06/11/2020 10:37:39 AM EDT [facility] [id number] Procedure by method Procedure by Method Problem 0 06/11/2020 12:00:00 AM EDT - 08/14/2020 12:00:00 AM [place] ([facility]) [id number] Procedure by method Procedure by Method Problem 0 06/11/2020 12:00:00 AM EDT - 08/14/2020 12:00:00 AM EST [place] ([facility]) 899415905 Procedure by method Procedure by Method Problem 0 06/11/2020 12:00:00 AM EDT - 08/14/2020 12:00:00 AM EST [place] ([facility]) 629002936 Procedure by method Procedure by Method Problem 0 06/11/2020 12:00:00 AM EDT - 08/14/2020 12:00:00 AM EST [place] ([facility]) V05.9 Encounter for immunization Encounter for immunization 05/10/2020 02:34:40 PM EDT [facility] [id number] Influenza vaccine needed Influenza Vaccine Needed Pro blem 05/10/2020 12:00:00 AM EDT - 10/30/2020 12:00:00 AM EST [place] ([facility]) [id number] Influenza vaccine needed Influenza Vaccine Needed Pro blem 05/10/2020 12:00:00 AM EDT [place] ([facility]) [id number] Influenza vaccine needed Influenza Vaccine Needed Pro blem 05/10/2020 12:00:00 AM EDT [place] ([facility]) [id number] Influenza vaccine needed Influenza Vaccine Needed Pro blem 05/10/2020 12:00:00 AM EDT [place] ([facility]) 316686010 Insomnia, unspecified Insomnia, unspecified 04/09/2020 10:15:55 AM EDT [facility] 563334940 Insomnia Insomnia Problem 04/09/2020 12:00:00 AM ED T [place] ([facility]) 809444792 Insomnia Insomnia Problem 04/09/2020 12:00:00 AM ED T [place] ([facility]) 444945091 Insomnia Insomnia Problem 04/09/2020 12:00:00 AM ED T [place] ([facility]) 752828005 Insomnia Insomnia Problem 04/09/2020 12:00:00 AM ED T [place] ([facility]) 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, in remission Alcohol abuse, in remissio n 03/27/2020 02:00:55 PM EDT [facility] 782.3 Edema of lower extremity Edema of lower extremity 03/27/2020 02:00:55 PM EDT [facility] K70.31 Alcoholic cirrhosis of liver with ascite s Alcoholic cirrhosis of liver with ascites 03/27/2020 02:00:55 PM EDT [facility] 305.1 Tobacco user Tobacco user 03/27/2020 02:00:55 P M EDT [facility] [id number] Ascites due to alcoholic cirrhosis Ascit es Due to Alcoholic Cirrhosis Problem 03/27/2020 12:00:00 AM EDT [place] ([facility]) 309165022 Localized edema Localized Edema Problem 03/27/2020 12:0 0:00 AM EDT [place] ([facility]) 29444997 Nicotine dependence Nicotine Dependence Problem 0 03/27/2020 12:00:00 AM EDT [place] ([facility]) 618605503 Nondependent alcohol abuse in remission Nondependent Alcohol Abuse in Remission Problem 03/27/2020 12:00:00 AM EDT [place] ([facility]) [id number] Ascites due to alcoholic cirrhosis Ascit es Due to Alcoholic Cirrhosis Problem 03/27/2020 12:00:00 AM EDT [place] ([facility]) 499706142 Localized edema Localized Edema Problem 03/27/2020 12:0 0:00 AM EDT [place] ([facility]) 33117338 Nicotine dependence Nicotine Dependence Problem 0 03/27/2020 12:00:00 AM EDT [place] ([facility]) 295664541 Nondependent alcohol abuse in remission Nondependent Alcohol Abuse in Remission Problem 03/27/2020 12:00:00 AM EDT [place] ([facility]) [id number] Ascites due to alcoholic cirrhosis Ascit es Due to Alcoholic Cirrhosis Problem 03/27/2020 12:00:00 AM EDT [place] ([facility]) 228113555 Localized edema Localized Edema Problem 03/27/2020 12:0 0:00 AM EDT [place] ([facility]) [id number] Nicotine dependence Nicotine Dependence Problem 0 03/27/2020 12:00:00 AM EDT [place] ([facility]) [id number] Nondependent alcohol abuse in remission Nondependent Alcohol Abuse in Remission Problem 03/27/2020 12:00:00 AM EDT [place] ([facility]) [id number] Ascites due to alcoholic cirrhosis Ascit es Due to Alcoholic Cirrhosis Problem 03/27/2020 12:00:00 AM EDT [place] ([facility]) [id number] Localized edema Localized Edema Problem 03/27/2020 12:0 0:00 AM EDT [place] ([facility]) [id number] Nicotine dependence Nicotine Dependence Problem 0 03/27/2020 12:00:00 AM EDT [place] ([facility]) [id number] Nondependent alcohol abuse in remission Nondependent Alcohol Abuse in Remission Problem 03/27/2020 12:00:00 AM EDT [place] ([facility]) R10.9 Unspecified abdominal pain Unspecified abdominal pain (R10.9) 01/17/2020 [id number] 01/17/2020 09:49:17 AM EDT [place] ([facility]) K70.11 Alcoholic hepatitis with ascites Alcohol ic hepatitis with ascites (K70.11) 01/17/2020 [id number] 01/17/2020 09:49:17 AM EDT [facility] ([facility]) Y92.[address] or not applicable UNSPECIFIED PLACE OR NOT APPLICABLE Diagnosis 03/17/2020 09:06:00 PM EDT [facility] W57.XXXA Bitten or stung by nonvenomo us insect and other nonvenomous arthropods, initial encounter BIT/STUNG BY NONVENOM INSECT & OTH NONVENOM ARTHROPODS , INIT Diagnosis 03/17/2020 09:06:00 PM EDT [facility] K72.00 Acute and subacute hepatic failure witho ut coma ACUTE AND SUBACUTE HEPATIC FAILURE WITHOUT COMA Diagnosis 03/17/2020 09:06:00 PM EDT [facility] 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 Diagnosis 03/17/2020 09:06:00 PM [facility] F10.232 Alcohol dependence with withdrawal with perceptual disturbance ALCOHOL DEPENDENCE W WITHDRAWAL WITH PERCEPTUAL DISTURBANCE Diagnosis 09:06:00 PM [facility] K76.6 Portal hypertension PORTAL HYPERTENSION Diagnosis 0 03/17/2020 09:06:00 PM [facility] F17.210 Nicotine dependence, cigarettes, uncompl icated NICOTINE DEPENDENCE, CIGARETTES, UNCOMPLICATED Diagnosis 03/17/2020 09:06:00 PM [facility] S90.861A Insect bite (nonvenomous), right foot, i nitial encounter INSECT BITE (NONVENOMOUS), RIGHT FOOT, INITIAL ENCOUNTER Diagnosis 0 09:06:00 PM [facility] F31.9 Bipolar disorder, unspecified BIPOLAR DISORDER, UNSPEC IFIED Diagnosis 03/17/2020 09:06:00 PM [facility] K70.31 Alcoholic cirrhosis of liver with ascite s ALCOHOLIC CIRRHOSIS OF LIVER WITH ASCITES Diagnosis 03/17/2020 09:06:00 PM [facility] Surgeries/Procedures Procedure Description Date Indications Data Source(s) Drainage of Peritoneal Cavity, Percutaneous Approach, Diagnostic DRAINAGE OF PERITONEAL CAVITY, PERCUTANEOUS APPROACH, DIAGN 03/18/2020 12:00:00 AM [facility] XRAY ABDOMEN 2 VIEW (FLAT and UPRIGHT) 01/17/202001/16 12:00:00 AM EDT [facility] ([facility]) Collected Date 01/17/2020 1024 01/17/2020 01/17/2020 12:00 :00 AM EDT [facility] ([facility]) CBCDIFF 01/17/2020 01/17/2020 12:00:00 AM EDT [facility] ([facility]) COMPREHENSIVE METABOLIC PANEL 01/17/2020 12:00:00 AM E DT [facility] ([facility]) Results ID Date Data Source [id number] 10/25/2020 01:19:00 PM EST [place] ([facility]) Name Value Range Interpretation Code Description Data Julia rce(s) Supporting Document(s) magnesium level 2.1 mg/dL 1.8-2.4 normal Magnesium Level [place] ([facility]) ID Date Data Source [id number] 10/25/2020 01:19:00 PM EST [place] ([facility]) Name Value Range Interpretation Code Description Data Julia rce(s) Supporting Document(s) phosphorus level 3.4 mg/dL 2.5-4.9 normal Phosphorus Level AT [facility] ([facility]) ID Date Data Source [id number] 10/25/2020 01:19:00 PM EST [place] ([facility]) Name Value Range Interpretation Code Description Data Julia rce(s) Supporting Document(s) glucose, fasting 95 mg/dL 70-100 normal Glucose, Fasting [facility] ([facility]) blood urea nitrogen 34 mg/dL 7-18 Above high normal Blood Ure a Nitrogen [place] ([facility]) creatinine for GFR 1.49 mg/dL 0.55-1.30 Above high normal Creatinine for GFR [place] ([facility]) glomerular filtration rate >51 Below low normal Deidra merular Filtration Rate [place] ([facility]) potassium serum 4.7 mEq/L 3.5-5.1 normal Potassium Serum [place] ([facility]) sodium level 127 mEq/L 136-145 Below low normal Sodium Level [place] ([facility]) carbon dioxide level 24 mEq/L 21-32 normal Carbon Dioxide Level [place] ([facility]) chloride level 95 mEq/L 98-107 Below low normal Chloride Level [place] ([facility]) anion gap 8 mEq/L 8-16 normal Anion Gap [place] ([facility]) calcium level 8.7 mg/dL 8.5-10.1 normal Calcium Level [facility]) ID Date Data Source [id number] 10/25/2020 11:00:00 AM EST [place] ([facility]) Name Value Range Interpretation Code Description Data Julia rce(s) Supporting Document(s) albumin 25% transfused product: albumin 25% count: 2 Albumin 25% [place] ([facility]) ID Date Data Source [id number] 10/18/2020 11:24:00 AM EST [place] ([facility]) Name Value Range Interpretation Code Description Data Julia rce(s) Supporting Document(s) magnesium level 2.0 mg/dL 1.8-2.4 normal Magnesium Level [place] ([facility]) ID Date Data Source [id number] 10/18/2020 11:24:00 AM EST [place] ([facility]) Name Value Range Interpretation Code Description Data Julia rce(s) Supporting Document(s) phosphorus level 3.6 mg/dL 2.5-4.9 normal Phosphorus Level AT [facility] ([facility]) ID Date Data Source [id number] 10/18/2020 11:24:00 AM EST [place] ([facility]) Name Value Range Interpretation Code Description Data Julia rce(s) Supporting Document(s) glucose, fasting 101 mg/dL 70-100 Above high normal Glucose, Fas ting [place] ([facility]) blood urea nitrogen 28 mg/dL 7-18 Above high normal Blood Ure a Nitrogen [place] ([facility]) creatinine for GFR 1.68 mg/dL 0.55-1.30 Above high normal Creatinine for GFR [place] ([facility]) glomerular filtration rate >51 Below low normal Deidra merular Filtration Rate [place] ([facility]) sodium level 134 mEq/L 136-145 Below low normal Sodium Level [place] ([facility]) potassium serum 3.9 mEq/L 3.5-5.1 normal Potassium Serum [place] ([facility]) chloride level 103 mEq/L 98-107 normal Chloride Level [place] ([facility]) carbon dioxide level 23 mEq/L 21-32 normal Carbon Dioxide Level [place] ([facility]) anion gap 8 mEq/L 8-16 normal Anion Gap [place] ([facility]) calcium level 8.2 mg/dL 8.5-10.1 Below low normal Calcium Level [facility] ([facility]) ID Date Data Source [id number] 10/18/2020 08:26:00 AM EST [place] ([facility]) Name Value Range Interpretation Code Description Data Julia rce(s) Supporting Document(s) albumin 25% transfused product: albumin 25% count: 4 Albumin 25% [place] ([facility]) ID Date Data Source [id number] 10/03/2020 10:51:00 AM EST [place] ([facility]) Name Value Range Interpretation Code Description Data Julia rce(s) Supporting Document(s) magnesium level 2.1 mg/dL 1.8-2.4 normal [facility] ID Date Data Source [id number] 10/03/2020 10:51:00 AM EST [place] ([facility]) Name Value Range Interpretation Code Description Data Julia rce(s) Supporting Document(s) phosphorus level 3.9 mg/dL 2.5-4.9 normal Phosphorus Level AT [facility] ([facility]) ID Date Data Source [id number] 10/03/2020 10:51:00 AM EST [place] ([facility]) Name Value Range Interpretation Code Description Data Julia rce(s) Supporting Document(s) glucose, fasting 106 mg/dL 70-100 Above high normal Glucose, Fas ting [place] ([facility]) blood urea nitrogen 30 mg/dL 7-18 Above high normal Blood Ure a Nitrogen [place] ([facility]) creatinine for GFR 1.64 mg/dL 0.55-1.30 Above high normal Creatinine for GFR [place] ([facility]) glomerular filtration rate >51 Below low normal Deidra merular Filtration Rate [place] ([facility]) sodium level 128 mEq/L 136-145 Below low normal Sodium Level [place] ([facility]) potassium serum 4.4 mEq/L 3.5-5.1 normal Potassium Serum [place] ([facility]) chloride level 98 mEq/L 98-107 normal Chloride Level [place] ([facility]) carbon dioxide level 23 mEq/L 21-32 normal Carbon Dioxide Level [place] ([facility]) anion gap 7 mEq/L 8-16 Below low normal Anion Gap [place] ( [facility]) calcium level 8.6 mg/dL 8.5-10.1 normal Calcium Level [place] ( [facility]) ID Date Data Source [id number] 10/03/2020 10:51:00 AM EST [place] ([facility]) Name Value Range Interpretation Code Description Data Julia rce(s) Supporting Document(s) magnesium level 2.1 mg/dL 1.8-2.4 normal [facility] ID Date Data Source [id number] 10/03/2020 10:51:00 AM EST [place] ([facility]) Name Value Range Interpretation Code Description Data Julia rce(s) Supporting Document(s) phosphorus level 3.9 mg/dL 2.5-4.9 normal Phosphorus Level AT [facility]) ID Date Data Source [id number] 10/03/2020 10:51:00 AM EST [place] ([facility]) Name Value Range Interpretation Code Description Data Julia rce(s) Supporting Document(s) blood urea nitrogen 30 mg/dL 7-18 Above high normal Blood Ure a Nitrogen [place] ([facility]) glucose, fasting 106 mg/dL 70-100 Above high normal Glucose, Fas ting [place] ([facility]) creatinine for GFR 1.64 mg/dL 0.55-1.30 Above high normal Creatinine for GFR [place] ([facility]) sodium level 128 mEq/L 136-145 Below low normal Sodium Level [place] ([facility]) glomerular filtration rate >51 Below low normal Deidra merular Filtration Rate [place] ([facility]) chloride level 98 mEq/L 98-107 normal Chloride Level [place] ([facility]) potassium serum 4.4 mEq/L 3.5-5.1 normal Potassium Serum [place] ([facility]) carbon dioxide level 23 mEq/L 21-32 normal Carbon Dioxide Level [place] ([facility]) anion gap 7 mEq/L 8-16 Below low normal Anion Gap [place] ( [facility]) calcium level 8.6 mg/dL 8.5-10.1 normal Calcium Level [place] ( [facility]) ID Date Data Source [id number] 10/03/2020 10:36:00 AM EST [place] ([facility]) Name Value Range Interpretation Code Description Data Julia rce(s) Supporting Document(s) albumin 25% transfused product: albumin 25% count: 4 Albumin 25% [place] ([facility]) ID Date Data Source [id number] 10/03/2020 10:36:00 AM EST [place] ([facility]) Name Value Range Interpretation Code Description Data Julia rce(s) Supporting Document(s) albumin 25% transfused product: albumin 25% count: 4 Albumin 25% [place] ([facility]) ID Date Data Source [id number] 09/27/2020 09:30:00 AM EST [place] ([facility]) Name Value Range Interpretation Code Description Data Julia rce(s) Supporting Document(s) albumin 25% transfused product: albumin 25% count: 4 Albumin 25% [place] ([facility]) ID Date Data Source [id number] 09/27/2020 09:30:00 AM EST [place] ([facility]) Name Value Range Interpretation Code Description Data Julia rce(s) Supporting Document(s) albumin 25% transfused product: albumin 25% count: 4 Albumin 25% [place] ([facility]) ID Date Data Source [id number] 09/20/2020 08:30:00 AM EST [place] ([facility]) Name Value Range Interpretation Code Description Data Julia rce(s) Supporting Document(s) albumin 25% transfused product: albumin 25% count: 4 Albumin 25% [place] ([facility]) ID Date Data Source [id number] 09/20/2020 08:30:00 AM EST [place] ([facility]) Name Value Range Interpretation Code Description Data Julia rce(s) Supporting Document(s) albumin 25% transfused product: albumin 25% count: 4 Albumin 25% [place] ([facility]) ID Date Data Source [id number] 09/13/2020 01:21:00 PM EST [place] ([facility]) Name Value Range Interpretation Code Description Data Julia rce(s) Supporting Document(s) albumin, body fluid 0.7 g/dL not established normal Albumin, Julien dy Fluid [place] ([facility]) source, body fluid albumin ascites normal Source, B jamil Fluid Albumin [place] ([facility]) ID Date Data Source [id number] 09/13/2020 01:21:00 PM EST [place] ([facility]) Name Value Range Interpretation Code Description Data Julia rce(s) Supporting Document(s) total protein, body fluid 1.4 g/dL not established normal Total Protein, Body Fluid [place] ([facility]) source, body fluid tot protein ascites normal Sourc e, Body Fluid Tot Protein [place] ([facility]) ID Date Data Source [id number] 09/13/2020 01:21:00 PM EST [place] ([facility]) Name Value Range Interpretation Code Description Data Julia rce(s) Supporting Document(s) source, body fluid ascites normal Source, Body Flui d [place] ([facility]) ascites fL color yellow colorless normal Ascites fL Color [place] ([facility]) appearance, body fluid hazy clear normal Appearance, B jamil Fluid [place] ([facility]) WBC body fluid 108 /uL 0-10 Above high normal WBC Body Fluid [place] ([facility]) bf mononuclear cell % 94.5 % 0-0 Above high normal Bf [place] nuclear Cell % [place] ([facility]) RBC body fluid < 2 <2 normal RBC Body Fluid [place] ([facility]) bf polymorphonuclear cell % 5.5 % 0-0 Above high no rmal Bf Polymorphonuclear Cell % [place] ([facility]) ID Date Data Source [id number] 09/13/2020 01:21:00 PM EST [place] ([facility]) Name Value Range Interpretation Code Description Data Julia rce(s) Supporting Document(s) source, body fluid albumin ascites normal Source, B jamil Fluid Albumin [place] ([facility]) albumin, body fluid 0.7 g/dL not established normal Albumin, Julien dy Fluid [place] ([facility]) ID Date Data Source [id number] 09/13/2020 01:21:00 PM EST [place] ([facility]) Name Value Range Interpretation Code Description Data Julia rce(s) Supporting Document(s) source, body fluid tot protein ascites normal Sourc e, Body Fluid Tot Protein [place] ([facility]) total protein, body fluid 1.4 g/dL not established normal Total Protein, Body Fluid [place] ([facility]) ID Date Data Source [id number] 09/13/2020 01:21:00 PM EST [place] ([facility]) Name Value Range Interpretation Code Description Data Julia rce(s) Supporting Document(s) source, body fluid ascites normal Source, Body Flui d [place] ([facility]) ascites fL color yellow colorless normal Ascites fL Color [place] ([facility]) appearance, body fluid hazy clear normal Appearance, B jamil Fluid [place] ([facility]) WBC body fluid 108 /uL 0-10 Above high normal WBC Body Fluid [place] ([facility]) RBC body fluid < 2 <2 normal RBC Body Fluid [place] ([facility]) bf mononuclear cell % 94.5 % 0-0 Above high normal Bf [place] nuclear Cell % [place] ([facility]) bf polymorphonuclear cell % 5.5 % 0-0 Above high no rmal Bf Polymorphonuclear Cell % [place] ([facility]) ID Date Data Source [id number] 09/13/2020 08:48:00 AM EST [place] ([facility]) Name Value Range Interpretation Code Description Data Julia rce(s) Supporting Document(s) albumin 25% transfused product: albumin 25% count: 4 Albumin 25% [place] ([facility]) ID Date Data Source [id number] 09/13/2020 08:48:00 AM EST [place] ([facility]) Name Value Range Interpretation Code Description Data Julia rce(s) Supporting Document(s) albumin 25% transfused product: albumin 25% count: 4 Albumin 25% [place] ([facility]) ID Date Data Source [id number] 09/05/2020 11:04:00 AM EST [place] ([facility]) Name Value Range Interpretation Code Description Data Julia rce(s) Supporting Document(s) glucose, fasting 109 mg/dL 70-100 Above high normal Glucose, Fas ting [place] ([facility]) blood urea nitrogen 27 mg/dL 7-18 Above high normal Blood Ure a Nitrogen [place] ([facility]) creatinine for GFR 1.52 mg/dL 0.55-1.30 Above high normal Creatinine for GFR [place] ([facility]) sodium level 130 mEq/L 136-145 Below low normal Sodium Level [place] ([facility]) glomerular filtration rate >51 Below low normal Deidra merular Filtration Rate [place] ([facility]) potassium serum 3.9 mEq/L 3.5-5.1 normal Potassium Serum [place] [place] ([facility]) chloride level 93 mEq/L 98-107 Below low normal Chloride Level [place] ([facility]) anion gap 8 mEq/L 8-16 normal Anion Gap [place] ([facility]) carbon dioxide level 29 mEq/L 21-32 normal Carbon Dioxide Level [place] ([facility]) calcium level 9.4 mg/dL 8.5-10.1 normal Calcium Level [place] ( [facility]) ID Date Data Source [id number] 09/05/2020 11:04:00 AM EST [place] ([facility]) Name Value Range Interpretation Code Description Data Julia rce(s) Supporting Document(s) AST/SGOT 50 U/L 7-37 Above high normal AST/SGOT [place] ([facility]) ALT/SGPT 26 U/L 12-78 normal ALT/SGPT [place] ([facility]) alkaline phosphatase 184 U/L 45-117 Above high normal Alkaline Phosphatase [place] ([facility]) bilirubin,total 4.3 mg/dL 0.2-1.0 Above high normal Bilirubin,tot al [place] ([facility]) bilirubin,direct 1.7 mg/dL 0.0-0.2 Above high normal Bilirubin,di rect [place] ([facility]) total protein 6.8 gm/dL 6.4-8.2 normal Total Protein [place] ( [facility]) albumin 3.5 gm/dL 3.2-5.2 normal Albumin [place] ([facility]) albumin/globulin ratio 1.2-2.2 Below low normal Albumin /globulin Ratio [place] ([facility]) ID Date Data Source [id number] 09/05/2020 11:04:00 AM EST [place] ([facility]) Name Value Range Interpretation Code Description Data Julia rce(s) Supporting Document(s) sodium,random urine 12 mEq/L normal Sodium,random Ur ine [place] ([facility]) ID Date Data Source [id number] 09/05/2020 11:04:00 AM EST [place] ([facility]) Name Value Range Interpretation Code Description Data Julia rce(s) Supporting Document(s) creatinine,random urine 142.0 mg/dL normal Creatinine, random Urine [place] ([facility]) ID Date Data Source [id number] 09/05/2020 11:04:00 AM EST [place] ([facility]) Name Value Range Interpretation Code Description Data Julia rce(s) Supporting Document(s) prothrombin time 20.0 seconds 12.5-14.3 Above high normal Prothrombi n Time [place] ([facility]) INR normal Inr [place] ([facility]) partial thromboplastin time 40.3 seconds 24.2-38.5 Above high no rmal Partial Thromboplastin Time [place] ([facility]) ID Date Data Source [id number] 09/05/2020 11:04:00 AM EST [place] ([facility]) Name Value Range Interpretation Code Description Data Julia rce(s) Supporting Document(s) white blood count 7.3 10 4.0-10.0 normal White Blood Count [place] ([facility]) red blood count 3.39 10 4.00-5.40 Below low normal Red Blood Coun t [place] ([facility]) hemoglobin 10.8 g/dL 12.0-15.5 Below low normal Hemoglobin [place] ( [facility]) mean corpuscular volume 90.6 fL 80.0-96.0 normal Mean Corpusc ular Volume [place] ([facility]) hematocrit 30.7 % 36.0-47.0 Below low normal Hematocrit [place] ( [facility]) mean corpuscular hemoglobin 31.9 pg 27.0-33.0 normal Mean Corpuscular Hemoglobin [place] ([facility]) mean corpuscular HGB conc 35.2 g/dL 32.0-36.5 normal Mean Corpu scular HGB Conc [place] ([facility]) red cell distribution width 18.1 % 11.5-14.5 Above high no rmal Red Cell Distribution Width [place] ([facility]) platelet count, automated 141 10 150-450 Below low denice l Platelet Count, Automated [place] ([facility]) neutrophils % 70.7 % 36.0-66.0 Above high normal Neutrophils % [place] ([facility]) lymph % 12.1 % 24.0-44.0 Below low normal Lymph % [place] ( [facility]) mono % 14.9 % 0.0-5.0 Above high normal [place] % [place] ([facility]) baso % 0.6 % 0.0-1.0 normal Baso % [place] ([facility]) eos % 1.1 % 0.0-3.0 normal Eos % [place] ([facility]) immature granulocyte % 0.6 % 0-3.0 normal Immature Gran ulocyte % [place] ([facility]) nucleated red blood cell % 0.0 % 0-0 normal Nucleated Red Blood Cell % [place] ([facility]) lymph # 0.9 10 1.5-5.0 Below low normal Lymph # [place] ( [facility]) neutrophils # 5.1 10 1.5-8.5 normal Neutrophils # [place] ( [facility]) mono # 1.1 10 0.0-0.8 Above high normal [place] # [place] ([facility]) baso # 0.0 10 0.0-0.2 normal Baso # [place] ([facility]) eos # 0.1 10 0.0-0.5 normal Eos # [place] ([facility]) ID Date Data Source [id number] 09/05/2020 11:04:00 AM EST [place] ([facility]) Name Value Range Interpretation Code Description Data Julia rce(s) Supporting Document(s) glucose, fasting 109 mg/dL 70-100 Above high normal Glucose, Fas ting [place] ([facility]) creatinine for GFR 1.52 mg/dL 0.55-1.30 Above high normal Creatinine for GFR [place] ([facility]) blood urea nitrogen 27 mg/dL 7-18 Above high normal Blood Ure a Nitrogen [place] ([facility]) sodium level 130 mEq/L 136-145 Below low normal Sodium Level [place] ([facility]) glomerular filtration rate >51 Below low normal [place]ra merular Filtration Rate [place] ([facility]) potassium serum 3.9 mEq/L 3.5-5.1 normal Potassium Serum [place] ([facility]) chloride level 93 mEq/L 98-107 Below low normal Chloride Level [place] ([facility]) carbon dioxide level 29 mEq/L 21-32 normal Carbon Dioxide Level [place] ([facility]) anion gap 8 mEq/L 8-16 normal Anion Gap [place] ([facility]) calcium level 9.4 mg/dL 8.5-10.1 normal Calcium Level [place] ( [facility]) ID Date Data Source [id number] 09/05/2020 11:04:00 AM EST [place] ([facility]) Name Value Range Interpretation Code Description Data Julia rce(s) Supporting Document(s) ALT/SGPT 26 U/L 12-78 normal ALT/SGPT [place] ([facility]) AST/SGOT 50 U/L 7-37 Above high normal AST/SGOT [place] ([facility]) bilirubin,total 4.3 mg/dL 0.2-1.0 Above high normal Bilirubin,tot al [place] ([facility]) alkaline phosphatase 184 U/L 45-117 Above high normal Alkaline Phosphatase [place] ([facility]) bilirubin,direct 1.7 mg/dL 0.0-0.2 Above high normal Bilirubin,di rect [place] ([facility]) total protein 6.8 gm/dL 6.4-8.2 normal Total Protein [place] ( [facility]) albumin/globulin ratio 1.2-2.2 Below low normal Albumin /globulin Ratio [place] ([facility]) albumin 3.5 gm/dL 3.2-5.2 normal Albumin [place] ([facility]) ID Date Data Source [id number] 09/05/2020 11:04:00 AM EST [place] ([facility]) Name Value Range Interpretation Code Description Data Julia rce(s) Supporting Document(s) sodium,random urine 12 mEq/L normal Sodium,random Ur ine [place] ([facility]) ID Date Data Source [id number] 09/05/2020 11:04:00 AM EST [place] ([facility]) Name Value Range Interpretation Code Description Data Julia rce(s) Supporting Document(s) creatinine,random urine 142.0 mg/dL normal Creatinine, random Urine [place] ([facility]) ID Date Data Source [id number] 09/05/2020 11:04:00 AM EST [place] ([facility]) Name Value Range Interpretation Code Description Data Julia rce(s) Supporting Document(s) prothrombin time 20.0 seconds 12.5-14.3 Above high normal Prothrombi n Time [place] ([facility]) INR normal Inr [place] ([facility]) partial thromboplastin time 40.3 seconds 24.2-38.5 Above high no rmal Partial Thromboplastin Time [place] ([facility]) ID Date Data Source [id number] 09/05/2020 11:04:00 AM EST [place] ([facility]) Name Value Range Interpretation Code Description Data Julia rce(s) Supporting Document(s) white blood count 7.3 10 4.0-10.0 normal White Blood Count [place] ([facility]) red blood count 3.39 10 4.00-5.40 Below low normal Red Blood Coun t [place] ([facility]) hematocrit 30.7 % 36.0-47.0 Below low normal Hematocrit [place] ( [facility]) hemoglobin 10.8 g/dL 12.0-15.5 Below low normal Hemoglobin [place] ( [facility]) mean corpuscular hemoglobin 31.9 pg 27.0-33.0 normal Mean Corpuscular Hemoglobin [place] ([facility]) mean corpuscular volume 90.6 fL 80.0-96.0 normal Mean Corpusc ular Volume [place] ([facility]) red cell distribution width 18.1 % 11.5-14.5 Above high no rmal Red Cell Distribution Width [place] ([facility]) mean corpuscular HGB conc 35.2 g/dL 32.0-36.5 normal Mean Corpu scular HGB Conc [place] ([facility]) platelet count, automated 141 10 150-450 Below low denice l Platelet Count, Automated [place] ([facility]) neutrophils % 70.7 % 36.0-66.0 Above high normal Neutrophils % [place] ([facility]) lymph % 12.1 % 24.0-44.0 Below low normal Lymph % [place] ( [facility]) mono % 14.9 % 0.0-5.0 Above high normal [place] % [place] ([facility]) baso % 0.6 % 0.0-1.0 normal Baso % [place] ([facility]) eos % 1.1 % 0.0-3.0 normal Eos % [place] ([facility]) immature granulocyte % 0.6 % 0-3.0 normal Immature Gran ulocyte % [place] ([facility]) neutrophils # 5.1 10 1.5-8.5 normal Neutrophils # [place] ( [facility]) nucleated red blood cell % 0.0 % 0-0 normal Nucleated Red Blood Cell % [place] ([facility]) lymph # 0.9 10 1.5-5.0 Below low normal Lymph # [place] ( [facility]) mono # 1.1 10 0.0-0.8 Above high normal [place] # [place] ([facility]) baso # 0.0 10 0.0-0.2 normal Baso # [place] ([facility]) eos # 0.1 10 0.0-0.5 normal Eos # [place] ([facility]) ID Date Data Source [id number] 09/05/2020 11:04:00 AM EST [place] ([facility]) Name Value Range Interpretation Code Description Data Julia rce(s) Supporting Document(s) blood urea nitrogen 27 mg/dL 7-18 Above high normal Blood Ure a Nitrogen [place] ([facility]) glucose, fasting 109 mg/dL 70-100 Above high normal Glucose, Fas ting [place] ([facility]) glomerular filtration rate >51 Below low normal Deidra merular Filtration Rate [place] ([facility]) creatinine for GFR 1.52 mg/dL 0.55-1.30 Above high normal Creatinine for GFR [place] ([facility]) sodium level 130 mEq/L 136-145 Below low normal Sodium Level [place] ([facility]) potassium serum 3.9 mEq/L 3.5-5.1 normal Potassium Serum [place] ([facility]) chloride level 93 mEq/L 98-107 Below low normal Chloride Level [place] ([facility]) carbon dioxide level 29 mEq/L 21-32 normal Carbon Dioxide Level [place] ([facility]) anion gap 8 mEq/L 8-16 normal Anion Gap [place] ([facility]) calcium level 9.4 mg/dL 8.5-10.1 normal Calcium Level [place] ( [facility]) ID Date Data Source [id number] 09/05/2020 11:04:00 AM EST [place] ([facility]) Name Value Range Interpretation Code Description Data Julia rce(s) Supporting Document(s) AST/SGOT 50 U/L 7-37 Above high normal AST/SGOT [place] ([facility]) ALT/SGPT 26 U/L 12-78 normal ALT/SGPT [place] ([facility]) bilirubin,total 4.3 mg/dL 0.2-1.0 Above high normal Bilirubin,tot al [place] ([facility]) alkaline phosphatase 184 U/L 45-117 Above high normal Alkaline Phosphatase [place] ([facility]) bilirubin,direct 1.7 mg/dL 0.0-0.2 Above high normal Bilirubin,di rect [place] ([facility]) total protein 6.8 gm/dL 6.4-8.2 normal Total Protein [place] ( [facility]) albumin 3.5 gm/dL 3.2-5.2 normal Albumin [place] ([facility]) albumin/globulin ratio 1.2-2.2 Below low normal Albumin /globulin Ratio [place] ([facility]) ID Date Data Source [id number] 09/05/2020 11:04:00 AM EST [place] ([facility]) Name Value Range Interpretation Code Description Data Julia rce(s) Supporting Document(s) sodium,random urine 12 mEq/L normal Sodium,random Ur ine [place] ([facility]) ID Date Data Source [id number] 09/05/2020 11:04:00 AM EST [place] ([facility]) Name Value Range Interpretation Code Description Data Julia rce(s) Supporting Document(s) creatinine,random urine 142.0 mg/dL normal Creatinine, random Urine [place] ([facility]) ID Date Data Source [id number] 09/05/2020 11:04:00 AM EST [place] ([facility]) Name Value Range Interpretation Code Description Data Julia rce(s) Supporting Document(s) prothrombin time 20.0 seconds 12.5-14.3 Above high normal Prothrombi n Time [place] ([facility]) INR normal Inr [place] ([facility]) partial thromboplastin time 40.3 seconds 24.2-38.5 Above high no rmal Partial Thromboplastin Time [place] ([facility]) ID Date Data Source [id number] 09/05/2020 11:04:00 AM EST [place] ([facility]) Name Value Range Interpretation Code Description Data Julia rce(s) Supporting Document(s) white blood count 7.3 10 4.0-10.0 normal White Blood Count [place] ([facility]) red blood count 3.39 10 4.00-5.40 Below low normal Red Blood Coun t [place] ([facility]) hemoglobin 10.8 g/dL 12.0-15.5 Below low normal Hemoglobin [place] ( [facility]) mean corpuscular volume 90.6 fL 80.0-96.0 normal Mean Corpusc ular Volume [place] ([facility]) hematocrit 30.7 % 36.0-47.0 Below low normal Hematocrit [place] ( [facility]) mean corpuscular hemoglobin 31.9 pg 27.0-33.0 normal Mean Corpuscular Hemoglobin [place] ([facility]) mean corpuscular HGB conc 35.2 g/dL 32.0-36.5 normal Mean Corpu scular HGB Conc [place] ([facility]) red cell distribution width 18.1 % 11.5-14.5 Above high no rmal Red Cell Distribution Width [place] ([facility]) platelet count, automated 141 10 150-450 Below low denice l Platelet Count, Automated [place] ([facility]) neutrophils % 70.7 % 36.0-66.0 Above high normal Neutrophils % [place] ([facility]) lymph % 12.1 % 24.0-44.0 Below low normal Lymph % [place] ( [facility]) mono % 14.9 % 0.0-5.0 Above high normal [place] % [place] ([facility]) eos % 1.1 % 0.0-3.0 normal Eos % [place] ([facility]) baso % 0.6 % 0.0-1.0 normal Baso % [place] ([facility]) immature granulocyte % 0.6 % 0-3.0 normal Immature Gran ulocyte % [place] ([facility]) nucleated red blood cell % 0.0 % 0-0 normal Nucleated Red Blood Cell % [place] ([facility]) neutrophils # 5.1 10 1.5-8.5 normal Neutrophils # [place] ( [facility]) lymph # 0.9 10 1.5-5.0 Below low normal Lymph # [place] ( [facility]) mono # 1.1 10 0.0-0.8 Above high normal [place] # [place] ([facility]) eos # 0.1 10 0.0-0.5 normal Eos # [place] ([facility]) baso # 0.0 10 0.0-0.2 normal [place] # [place] ([facility]) ID Date Data Source [id number] 09/05/2020 08:12:00 AM EST [place] ([facility]) Name Value Range Interpretation Code Description Data Julia rce(s) Supporting Document(s) albumin 25% transfused product: albumin 25% count: 4 Albumin 25% [place] ([facility]) ID Date Data Source [id number] 09/05/2020 08:12:00 AM EST [place] ([facility]) Name Value Range Interpretation Code Description Data Julia rce(s) Supporting Document(s) albumin 25% transfused product: albumin 25% count: 4 Albumin 25% [place] ([facility]) ID Date Data Source [id number] 09/05/2020 08:12:00 AM EST [place] ([facility]) Name Value Range Interpretation Code Description Data Julia rce(s) Supporting Document(s) albumin 25% transfused product: albumin 25% count: 4 Albumin 25% [place] ([facility]) ID Date Data Source [id number] 08/30/2020 12:20:00 PM EST [place] ([facility]) Name Value Range Interpretation Code Description Data Julia rce(s) Supporting Document(s) albumin, body fluid 0.8 g/dL not established normal Albumin, Julien dy Fluid [place] ([facility]) source, body fluid albumin ascites normal Source, B jamil Fluid Albumin [place] ([facility]) ID Date Data Source [id number] 08/30/2020 12:20:00 PM EST [place] ([facility]) Name Value Range Interpretation Code Description Data Julia rce(s) Supporting Document(s) total protein, body fluid 1.4 g/dL not established normal Total Protein, Body Fluid [place] ([facility]) source, body fluid tot protein ascites normal Sourc e, Body Fluid Tot Protein [place] ([facility]) ID Date Data Source [id number] 08/30/2020 12:20:00 PM EST [place] ([facility]) Name Value Range Interpretation Code Description Data Julia rce(s) Supporting Document(s) source, body fluid ascites normal Source, Body Flui d [place] ([facility]) ascites fL color yellow colorless normal Ascites fL Color [place] ([facility]) appearance, body fluid hazy clear normal Appearance, B jamil Fluid [place] ([facility]) WBC body fluid 98 /uL 0-10 Above high normal WBC Body Fluid [place] ([facility]) RBC body fluid < 2 <2 normal RBC Body Fluid [place] ([facility]) bf mononuclear cell % 96.9 % 0-0 Above high normal Bf [place] nuclear Cell % [place] ([facility]) bf polymorphonuclear cell % 3.1 % 0-0 Above high no rmal Bf Polymorphonuclear Cell % [place] ([facility]) ID Date Data Source [id number] 08/30/2020 12:20:00 PM EST [place] ([facility]) Name Value Range Interpretation Code Description Data Julia rce(s) Supporting Document(s) source, body fluid albumin ascites normal Source, B jamil Fluid Albumin [place] ([facility]) albumin, body fluid 0.8 g/dL not established normal Albumin, Julien dy Fluid [place] ([facility]) ID Date Data Source [id number] 08/30/2020 12:20:00 PM EST [place] ([facility]) Name Value Range Interpretation Code Description Data Julia rce(s) Supporting Document(s) total protein, body fluid 1.4 g/dL not established normal Total Protein, Body Fluid [place] ([facility]) source, body fluid tot protein ascites normal Sourc e, Body Fluid Tot Protein [place] ([facility]) ID Date Data Source [id number] 08/30/2020 12:20:00 PM EST [place] ([facility]) Name Value Range Interpretation Code Description Data Julia rce(s) Supporting Document(s) source, body fluid ascites normal Source, Body Flui d [place] ([facility]) ascites fL color yellow colorless normal Ascites fL Color [place] ([facility]) WBC body fluid 98 /uL 0-10 Above high normal WBC Body Fluid [place] ([facility]) appearance, body fluid hazy clear normal Appearance, B jamil Fluid [place] ([facility]) bf mononuclear cell % 96.9 % 0-0 Above high normal Bf [place] nuclear Cell % [place] ([facility]) RBC body fluid < 2 <2 normal RBC Body Fluid [place] ([facility]) bf polymorphonuclear cell % 3.1 % 0-0 Above high no rmal Bf Polymorphonuclear Cell % [place] ([facility]) ID Date Data Source [id number] 08/30/2020 12:20:00 PM EST [place] ([facility]) Name Value Range Interpretation Code Description Data Julia rce(s) Supporting Document(s) albumin, body fluid 0.8 g/dL not established normal Albumin, Julien dy Fluid [place] ([facility]) source, body fluid albumin ascites normal Source, B jamil Fluid Albumin [place] ([facility]) ID Date Data Source [id number] 08/30/2020 12:20:00 PM EST [place] ([facility]) Name Value Range Interpretation Code Description Data Julia rce(s) Supporting Document(s) total protein, body fluid 1.4 g/dL not established normal Total Protein, Body Fluid [place] ([facility]) source, body fluid tot protein ascites normal Sourc e, Body Fluid Tot Protein [place] ([facility]) ID Date Data Source [id number] 08/30/2020 12:20:00 PM EST [place] ([facility]) Name Value Range Interpretation Code Description Data Julia rce(s) Supporting Document(s) source, body fluid ascites normal Source, Body Flui d [place] ([facility]) ascites fL color yellow colorless normal Ascites fL Color [place] ([facility]) WBC body fluid 98 /uL 0-10 Above high normal WBC Body Fluid [place] ([facility]) appearance, body fluid hazy clear normal Appearance, B jamil Fluid [place] ([facility]) RBC body fluid < 2 <2 normal RBC Body Fluid [place] ([facility]) bf mononuclear cell % 96.9 % 0-0 Above high normal Bf [place] nuclear Cell % [place] ([facility]) bf polymorphonuclear cell % 3.1 % 0-0 Above high no rmal Bf Polymorphonuclear Cell % [place] ([facility]) ID Date Data Source [id number] 08/30/2020 09:07:00 AM EST [place] ([facility]) Name Value Range Interpretation Code Description Data Julia rce(s) Supporting Document(s) albumin 25% transfused product: albumin 25% count: 4 Albumin 25% [place] ([facility]) ID Date Data Source [id number] 08/30/2020 09:07:00 AM EST [place] ([facility]) Name Value Range Interpretation Code Description Data Julia rce(s) Supporting Document(s) albumin 25% transfused product: albumin 25% count: 4 Albumin 25% [place] ([facility]) ID Date Data Source [id number] 08/30/2020 09:07:00 AM EST [place] ([facility]) Name Value Range Interpretation Code Description Data Julia rce(s) Supporting Document(s) albumin 25% transfused product: albumin 25% count: 4 Albumin 25% [place] ([facility]) ID Date Data Source [id number] 08/23/2020 01:53:00 PM EST [place] ([facility]) Name Value Range Interpretation Code Description Data Julia rce(s) Supporting Document(s) albumin, body fluid 0.9 g/dL not established normal Albumin, Julien dy Fluid [place] ([facility]) source, body fluid albumin ascites normal Source, B jamil Fluid Albumin [place] ([facility]) ID Date Data Source [id number] 08/23/2020 01:53:00 PM EST [place] ([facility]) Name Value Range Interpretation Code Description Data Julia rce(s) Supporting Document(s) total protein, body fluid 1.4 g/dL not established normal Total Protein, Body Fluid [place] ([facility]) source, body fluid tot protein ascites normal Sourc e, Body Fluid Tot Protein [place] ([facility]) ID Date Data Source [id number] 08/23/2020 01:53:00 PM EST [place] ([facility]) Name Value Range Interpretation Code Description Data Julia rce(s) Supporting Document(s) source, body fluid ascites normal Source, Body Flui d [place] ([facility]) ascites fL color yellow colorless normal Ascites fL Color [place] ([facility]) WBC body fluid 160 /uL 0-10 Above high normal WBC Body Fluid [place] ([facility]) appearance, body fluid cloudy clear normal Appearance, B jamil Fluid [place] ([facility]) RBC body fluid 2 10 <2 normal RBC Body Fluid [place] ([facility]) bf mononuclear cell % 96.3 % 0-0 Above high normal Bf [place] nuclear Cell % [place] ([facility]) bf polymorphonuclear cell % 3.7 % 0-0 Above high no rmal Bf Polymorphonuclear Cell % [place] ([facility]) ID Date Data Source [id number] 08/23/2020 01:53:00 PM EST [place] ([facility]) Name Value Range Interpretation Code Description Data Julia rce(s) Supporting Document(s) albumin, body fluid 0.9 g/dL not established normal Albumin, Julien dy Fluid [place] ([facility]) source, body fluid albumin ascites normal Source, B jamil Fluid Albumin [place] ([facility]) ID Date Data Source [id number] 08/23/2020 01:53:00 PM EST [place] ([facility]) Name Value Range Interpretation Code Description Data Julia rce(s) Supporting Document(s) total protein, body fluid 1.4 g/dL not established normal Total Protein, Body Fluid [place] ([facility]) source, body fluid tot protein ascites normal Sourc e, Body Fluid Tot Protein [place] ([facility]) ID Date Data Source [id number] 08/23/2020 01:53:00 PM EST [place] ([facility]) Name Value Range Interpretation Code Description Data Julia rce(s) Supporting Document(s) source, body fluid ascites normal Source, Body Flui d [place] ([facility]) ascites fL color yellow colorless normal Ascites fL Color [place] ([facility]) appearance, body fluid cloudy clear normal Appearance, B jamil Fluid [place] ([facility]) WBC body fluid 160 /uL 0-10 Above high normal WBC Body Fluid [place] ([facility]) RBC body fluid 2 10 <2 normal RBC Body Fluid [place] ([facility]) bf polymorphonuclear cell % 3.7 % 0-0 Above high no rmal Bf Polymorphonuclear Cell % [place] ([facility]) bf mononuclear cell % 96.3 % 0-0 Above high normal Bf [place] nuclear Cell % [place] ([facility]) ID Date Data Source [id number] 08/23/2020 01:53:00 PM EST [place] ([facility]) Name Value Range Interpretation Code Description Data Julia rce(s) Supporting Document(s) source, body fluid albumin ascites normal Source, B jamil Fluid Albumin [place] ([facility]) albumin, body fluid 0.9 g/dL not established normal Albumin, Julien dy Fluid [place] [facility] [facility]) ID Date Data Source [id number] 08/23/2020 01:53:00 PM EST [place] ([facility]) Name Value Range Interpretation Code Description Data Julia rce(s) Supporting Document(s) total protein, body fluid 1.4 g/dL not established normal Total Protein, Body Fluid [place] ([facility]) source, body fluid tot protein ascites normal Sourc e, Body Fluid Tot Protein [place] ([facility]) ID Date Data Source [id number] 08/23/2020 01:53:00 PM EST [place] ([facility]) Name Value Range Interpretation Code Description Data Julia rce(s) Supporting Document(s) source, body fluid ascites normal Source, Body Flui d [place] ([facility]) ascites fL color yellow colorless normal Ascites fL Color [place] ([facility]) WBC body fluid 160 /uL 0-10 Above high normal WBC Body Fluid [place] ([facility]) appearance, body fluid cloudy clear normal Appearance, B jamil Fluid [place] ([facility]) RBC body fluid 2 10 <2 normal RBC Body Fluid [place] ([facility]) bf mononuclear cell % 96.3 % 0-0 Above high normal Bf [place] nuclear Cell % [place] ([facility]) bf polymorphonuclear cell % 3.7 % 0-0 Above high no rmal Bf Polymorphonuclear Cell % [place] ([facility]) ID Date Data Source [id number] 08/23/2020 01:53:00 PM EST [place] ([facility]) Name Value Range Interpretation Code Description Data Julia rce(s) Supporting Document(s) albumin, body fluid 0.9 g/dL not established normal Albumin, Julien dy Fluid [place] ([facility]) source, body fluid albumin ascites normal Source, B jamil Fluid Albumin [place] ([facility]) ID Date Data Source [id number] 08/23/2020 01:53:00 PM EST [place] ([facility]) Name Value Range Interpretation Code Description Data Julia rce(s) Supporting Document(s) total protein, body fluid 1.4 g/dL not established normal Total Protein, Body Fluid [place] ([facility]) source, body fluid tot protein ascites normal Sourc e, Body Fluid Tot Protein [place] ([facility]) ID Date Data Source [id number] 08/23/2020 01:53:00 PM EST [place] ([facility]) Name Value Range Interpretation Code Description Data Julia rce(s) Supporting Document(s) source, body fluid ascites normal Source, Body Flui d [place] ([facility]) ascites fL color yellow colorless normal Ascites fL Color [place] ([facility]) appearance, body fluid cloudy clear normal Appearance, B jamil Fluid [place] ([facility]) WBC body fluid 160 /uL 0-10 Above high normal WBC Body Fluid [place] ([facility]) RBC body fluid 2 10 <2 normal RBC Body Fluid [place] ([facility]) bf mononuclear cell % 96.3 % 0-0 Above high normal Bf [place] nuclear Cell % [place] ([facility]) bf polymorphonuclear cell % 3.7 % 0-0 Above high no rmal Bf Polymorphonuclear Cell % [place] ([facility]) ID Date Data Source [id number] 08/23/2020 11:43:00 AM EST [place] ([facility]) Name Value Range Interpretation Code Description Data Julia rce(s) Supporting Document(s) albumin 25% transfused product: albumin 25% count: 4 Albumin 25% [place] ([facility]) ID Date Data Source [id number] 08/23/2020 11:43:00 AM EST [place] ([facility]) Name Value Range Interpretation Code Description Data Julia rce(s) Supporting Document(s) albumin 25% transfused product: albumin 25% count: 4 Albumin 25% [place] ([facility]) ID Date Data Source [id number] 08/23/2020 11:43:00 AM EST [place] ([facility]) Name Value Range Interpretation Code Description Data Julia rce(s) Supporting Document(s) albumin 25% transfused product: albumin 25% count: 4 Albumin 25% [place] ([facility]) ID Date Data Source [id number] 08/23/2020 11:43:00 AM EST [place] ([facility]) Name Value Range Interpretation Code Description Data Julia rce(s) Supporting Document(s) albumin 25% transfused product: albumin 25% count: 4 Albumin 25% [place] ([facility]) ID Date Data Source [id number] 08/16/2020 11:48:00 AM EST [place] ([facility]) Name Value Range Interpretation Code Description Data Julia rce(s) Supporting Document(s) Ab screen gel manual negative normal Ab Screen Gel M anual [place] ([facility]) ID Date Data Source [id number] 08/16/2020 11:48:00 AM EST [place] ([facility]) Name Value Range Interpretation Code Description Data Julia rce(s) Supporting Document(s) blood type A positive normal Blood Type [place] ([facility]) ID Date Data Source [id number] 08/16/2020 11:48:00 AM EST [place] ([facility]) Name Value Range Interpretation Code Description Data Julia rce(s) Supporting Document(s) glucose, fasting 110 mg/dL 70-100 Above high normal Glucose, Fas ting [place] ([facility]) blood urea nitrogen 29 mg/dL 7-18 Above high normal Blood Ure a Nitrogen [place] ([facility]) creatinine for GFR 1.03 mg/dL 0.55-1.30 normal Creatinine for GF R [place] ([facility]) glomerular filtration rate >51 normal Glomerula r Filtration Rate [place] ([facility]) potassium serum 5.0 mEq/L 3.5-5.1 normal Potassium Serum [place] ([facility]) sodium level 128 mEq/L 136-145 Below low normal Sodium Level [place] ([facility]) chloride level 97 mEq/L 98-107 Below low normal Chloride Level [place] ([facility]) carbon dioxide level 25 mEq/L 21-32 normal Carbon Dioxide Level [place] ([facility]) calcium level 9.5 mg/dL 8.5-10.1 normal Calcium Level [place] ( [facility]) anion gap 6 mEq/L 8-16 Below low normal Anion Gap [place] ( [facility]) ID Date Data Source [id number] 08/16/2020 11:48:00 AM EST [facility]) Name Value Range Interpretation Code Description Data Julia rce(s) Supporting Document(s) prothrombin time 19.4 seconds 12.5-14.3 Above high normal Prothrombi n Time [place] ([facility]) partial thromboplastin time 39.9 seconds 24.2-38.5 Above high no rmal Partial Thromboplastin Time [place] ([facility]) INR normal Inr [place] ([facility]) ID Date Data Source [id number] 08/16/2020 11:48:00 AM EST [place] ([facility]) Name Value Range Interpretation Code Description Data Julia rce(s) Supporting Document(s) white blood count 6.8 10 4.0-10.0 normal White Blood Count [place] ([facility]) red blood count 3.49 10 4.00-5.40 Below low normal Red Blood Coun t [place] ([facility]) hematocrit 32.5 % 36.0-47.0 Below low normal Hematocrit [place] ( [facility]) hemoglobin 11.3 g/dL 12.0-15.5 Below low normal Hemoglobin [place] ( [facility]) mean corpuscular hemoglobin 32.4 pg 27.0-33.0 normal Mean Corpuscular Hemoglobin [place] ([facility]) mean corpuscular volume 93.1 fL 80.0-96.0 normal Mean Corpusc ular Volume [place] ([facility]) red cell distribution width 18.4 % 11.5-14.5 Above high no rmal Red Cell Distribution Width [place] ([facility]) mean corpuscular HGB conc 34.8 g/dL 32.0-36.5 normal Mean Corpu scular HGB Conc [place] ([facility]) platelet count, automated 138 10 150-450 Below low denice l Platelet Count, Automated [place] ([facility]) lymph % 11.3 % 24.0-44.0 Below low normal Lymph % [place] ( [facility]) neutrophils % 75.2 % 36.0-66.0 Above high normal Neutrophils % [place] ([facility]) eos % 0.9 % 0.0-3.0 normal Eos % [place] ([facility]) mono % 11.6 % 0.0-5.0 Above high normal [place] % [place] ([facility]) nucleated red blood cell % 0.0 % 0-0 normal Nucleated Red Blood Cell % [place] ([facility]) immature granulocyte % 0.4 % 0-3.0 normal Immature Gran ulocyte % [place] ([facility]) baso % 0.6 % 0.0-1.0 normal Baso % [place] ([facility]) neutrophils # 5.1 10 1.5-8.5 normal Neutrophils # [place] ( [facility]) lymph # 0.8 10 1.5-5.0 Below low normal Lymph # [place] ( [facility]) mono # 0.8 10 0.0-0.8 normal [place] # [place] ([facility]) baso # 0.0 10 0.0-0.2 normal Baso # [place] ([facility]) eos # 0.1 10 0.0-0.5 normal Eos # [place] ([facility]) ID Date Data Source [id number] 08/16/2020 11:48:00 AM EST [place] ([facility]) Name Value Range Interpretation Code Description Data Julia rce(s) Supporting Document(s) Ab screen gel manual negative normal Ab Screen Gel M anual [place] ([facility]) ID Date Data Source [id number] 08/16/2020 11:48:00 AM EST [place] ([facility]) Name Value Range Interpretation Code Description Data Julia rce(s) Supporting Document(s) blood type A positive normal Blood Type [place] ([facility]) ID Date Data Source [id number] 08/16/2020 11:48:00 AM EST [place] ([facility]) Name Value Range Interpretation Code Description Data Julia rce(s) Supporting Document(s) glucose, fasting 110 mg/dL 70-100 Above high normal Glucose, Fas ting [place] ([facility]) creatinine for GFR 1.03 mg/dL 0.55-1.30 normal Creatinine for GF R [place] ([facility]) blood urea nitrogen 29 mg/dL 7-18 Above high normal Blood Ure a Nitrogen [place] ([facility]) glomerular filtration rate >51 normal Glomerula r Filtration Rate [place] ([facility]) sodium level 128 mEq/L 136-145 Below low normal Sodium Level [place] ([facility]) chloride level 97 mEq/L 98-107 Below low normal Chloride Level [place] ([facility]) potassium serum 5.0 mEq/L 3.5-5.1 normal Potassium Serum [place] ([facility]) anion gap 6 mEq/L 8-16 Below low normal Anion Gap [place] ( [facility]) carbon dioxide level 25 mEq/L 21-32 normal Carbon Dioxide Level [place] ([facility]) calcium level 9.5 mg/dL 8.5-10.1 normal Calcium Level [place] ( [facility]) ID Date Data Source [id number] 08/16/2020 11:48:00 AM EST [place] ([facility]) Name Value Range Interpretation Code Description Data Julia rce(s) Supporting Document(s) prothrombin time 19.4 seconds 12.5-14.3 Above high normal Prothrombi n Time [place] ([facility]) partial thromboplastin time 39.9 seconds 24.2-38.5 Above high no rmal Partial Thromboplastin Time [place] ([facility]) INR normal Inr [place] ([facility]) ID Date Data Source [id number] 08/16/2020 11:48:00 AM EST [place] ([facility]) Name Value Range Interpretation Code Description Data Julia rce(s) Supporting Document(s) white blood count 6.8 10 4.0-10.0 normal White Blood Count [place] ([facility]) hematocrit 32.5 % 36.0-47.0 Below low normal Hematocrit [place] ( [facility]) red blood count 3.49 10 4.00-5.40 Below low normal Red Blood Coun t [place] ([facility]) hemoglobin 11.3 g/dL 12.0-15.5 Below low normal Hemoglobin [place] ( [facility]) mean corpuscular hemoglobin 32.4 pg 27.0-33.0 normal Mean Corpuscular Hemoglobin [place] ([facility]) mean corpuscular volume 93.1 fL 80.0-96.0 normal Mean Corpusc ular Volume [place] ([facility]) mean corpuscular HGB conc 34.8 g/dL 32.0-36.5 normal Mean Corpu scular HGB Conc [place] ([facility]) red cell distribution width 18.4 % 11.5-14.5 Above high no rmal Red Cell Distribution Width [place] ([facility]) platelet count, automated 138 10 150-450 Below low denice l Platelet Count, Automated [place] ([facility]) neutrophils % 75.2 % 36.0-66.0 Above high normal Neutrophils % [place] ([facility]) lymph % 11.3 % 24.0-44.0 Below low normal Lymph % [place] ( [facility]) mono % 11.6 % 0.0-5.0 Above high normal [place] % [place] ([facility]) eos % 0.9 % 0.0-3.0 normal Eos % [place] ([facility]) baso % 0.6 % 0.0-1.0 normal Baso % [place] ([facility]) immature granulocyte % 0.4 % 0-3.0 normal Immature Gran ulocyte % [place] ([facility]) nucleated red blood cell % 0.0 % 0-0 normal Nucleated Red Blood Cell % [place] ([facility]) neutrophils # 5.1 10 1.5-8.5 normal Neutrophils # [place] ( [facility]) eos # 0.1 10 0.0-0.5 normal Eos # [place] ([facility]) mono # 0.8 10 0.0-0.8 normal [place] # [place] ([facility]) lymph # 0.8 10 1.5-5.0 Below low normal Lymph # [place] ( [facility]) baso # 0.0 10 0.0-0.2 normal Baso # [place] ([facility]) ID Date Data Source [id number] 08/16/2020 11:48:00 AM EST [place] ([facility]) Name Value Range Interpretation Code Description Data Julia rce(s) Supporting Document(s) Ab screen gel manual negative normal Ab Screen Gel M anual [place] ([facility]) ID Date Data Source [id number] 08/16/2020 11:48:00 AM EST [place] ([facility]) Name Value Range Interpretation Code Description Data Julia rce(s) Supporting Document(s) blood type A positive normal Blood Type [place] ([facility]) ID Date Data Source [id number] 08/16/2020 11:48:00 AM EST [place] ([facility]) Name Value Range Interpretation Code Description Data Julia rce(s) Supporting Document(s) glucose, fasting 110 mg/dL 70-100 Above high normal Glucose, Fas ting [place] ([facility]) blood urea nitrogen 29 mg/dL 7-18 Above high normal Blood Ure a Nitrogen [place] ([facility]) creatinine for GFR 1.03 mg/dL 0.55-1.30 normal Creatinine for GF R [place] ([facility]) glomerular filtration rate >51 normal Glomerula r Filtration Rate [place] ([facility]) sodium level 128 mEq/L 136-145 Below low normal Sodium Level [place] ([facility]) potassium serum 5.0 mEq/L 3.5-5.1 normal Potassium Serum [place] ([facility]) chloride level 97 mEq/L 98-107 Below low normal Chloride Level [place] ([facility]) carbon dioxide level 25 mEq/L 21-32 normal Carbon Dioxide Level [place] ([facility]) anion gap 6 mEq/L 8-16 Below low normal Anion Gap [place] ( [facility]) calcium level 9.5 mg/dL 8.5-10.1 normal Calcium Level [place] ( [facility]) ID Date Data Source [id number] 08/16/2020 11:48:00 AM EST [facility]) Name Value Range Interpretation Code Description Data Julia rce(s) Supporting Document(s) prothrombin time 19.4 seconds 12.5-14.3 Above high normal Prothrombi n Time [place] ([facility]) partial thromboplastin time 39.9 seconds 24.2-38.5 Above high no rmal Partial Thromboplastin Time [place] ([facility]) INR normal Inr [place] ([facility]) ID Date Data Source [id number] 08/16/2020 11:48:00 AM EST [place] ([facility]) Name Value Range Interpretation Code Description Data Julia rce(s) Supporting Document(s) white blood count 6.8 10 4.0-10.0 normal White Blood Count [place] ([facility]) hemoglobin 11.3 g/dL 12.0-15.5 Below low normal Hemoglobin [place] ( [facility]) red blood count 3.49 10 4.00-5.40 Below low normal Red Blood Coun t [place] ([facility]) hematocrit 32.5 % 36.0-47.0 Below low normal Hematocrit [place] ( [facility]) mean corpuscular volume 93.1 fL 80.0-96.0 normal Mean Corpusc ular Volume [place] ([facility]) mean corpuscular HGB conc 34.8 g/dL 32.0-36.5 normal Mean Corpu scular HGB Conc [place] ([facility]) mean corpuscular hemoglobin 32.4 pg 27.0-33.0 normal Mean Corpuscular Hemoglobin [place] ([facility]) red cell distribution width 18.4 % 11.5-14.5 Above high no rmal Red Cell Distribution Width [place] ([facility]) platelet count, automated 138 10 150-450 Below low denice l Platelet Count, Automated [place] ([facility]) neutrophils % 75.2 % 36.0-66.0 Above high normal Neutrophils % [place] ([facility]) lymph % 11.3 % 24.0-44.0 Below low normal Lymph % [place] ( [facility]) eos % 0.9 % 0.0-3.0 normal Eos % [place] ([facility]) mono % 11.6 % 0.0-5.0 Above high normal [place] % [place] ([facility]) baso % 0.6 % 0.0-1.0 normal Baso % [place] ([facility]) immature granulocyte % 0.4 % 0-3.0 normal Immature Gran ulocyte % [place] ([facility]) nucleated red blood cell % 0.0 % 0-0 normal Nucleated Red Blood Cell % [place] ([facility]) neutrophils # 5.1 10 1.5-8.5 normal Neutrophils # [place] ( [facility]) lymph # 0.8 10 1.5-5.0 Below low normal Lymph # [place] ( [facility]) mono # 0.8 10 0.0-0.8 normal [place] # [place] ([facility]) eos # 0.1 10 0.0-0.5 normal Eos # [place] ([facility]) baso # 0.0 10 0.0-0.2 normal Baso # [place] ([facility]) ID Date Data Source [id number] 08/16/2020 11:48:00 AM EST [place] ([facility]) Name Value Range Interpretation Code Description Data Julia rce(s) Supporting Document(s) Ab screen gel manual negative normal Ab Screen Gel M anual [place] ([facility]) ID Date Data Source [id number] 08/16/2020 11:48:00 AM EST [place] ([facility]) Name Value Range Interpretation Code Description Data Julia rce(s) Supporting Document(s) blood type A positive normal Blood Type [place] ([facility]) ID Date Data Source [id number] 08/16/2020 11:48:00 AM EST [place] ([facility]) Name Value Range Interpretation Code Description Data Julia rce(s) Supporting Document(s) blood urea nitrogen 29 mg/dL 7-18 Above high normal Blood Ure a Nitrogen [place] ([facility]) glucose, fasting 110 mg/dL 70-100 Above high normal Glucose, Fas ting [place] ([facility]) creatinine for GFR 1.03 mg/dL 0.55-1.30 normal Creatinine for GF R [place] ([facility]) glomerular filtration rate >51 normal Glomerula r Filtration Rate [place] ([facility]) potassium serum 5.0 mEq/L 3.5-5.1 normal Potassium Serum [place] ([facility]) sodium level 128 mEq/L 136-145 Below low normal Sodium Level [place] ([facility]) carbon dioxide level 25 mEq/L 21-32 normal Carbon Dioxide Level [place] ([facility]) chloride level 97 mEq/L 98-107 Below low normal Chloride Level [place] ([facility]) anion gap 6 mEq/L 8-16 Below low normal Anion Gap [place] ( [facility]) calcium level 9.5 mg/dL 8.5-10.1 normal Calcium Level [place] ( [facility]) ID Date Data Source [id number] 08/16/2020 11:48:00 AM EST [place] ([facility]) Name Value Range Interpretation Code Description Data Julia rce(s) Supporting Document(s) prothrombin time 19.4 seconds 12.5-14.3 Above high normal Prothrombi n Time [place] ([facility]) INR normal Inr [place] ([facility]) partial thromboplastin time 39.9 seconds 24.2-38.5 Above high no rmal Partial Thromboplastin Time [place] ([facility]) ID Date Data Source [id number] 08/16/2020 11:48:00 AM EST [place] ([facility]) Name Value Range Interpretation Code Description Data Julia rce(s) Supporting Document(s) white blood count 6.8 10 4.0-10.0 normal White Blood Count [place] ([facility]) red blood count 3.49 10 4.00-5.40 Below low normal Red Blood Coun t [place] ([facility]) hemoglobin 11.3 g/dL 12.0-15.5 Below low normal Hemoglobin [place] ( [facility]) hematocrit 32.5 % 36.0-47.0 Below low normal Hematocrit [place] ( [facility]) mean corpuscular volume 93.1 fL 80.0-96.0 normal Mean Corpusc ular Volume [place] ([facility]) mean corpuscular hemoglobin 32.4 pg 27.0-33.0 normal Mean Corpuscular Hemoglobin [place] ([facility]) mean corpuscular HGB conc 34.8 g/dL 32.0-36.5 normal Mean Corpu scular HGB Conc [place] ([facility]) neutrophils % 75.2 % 36.0-66.0 Above high normal Neutrophils % [place] ([facility]) platelet count, automated 138 10 150-450 Below low denice l Platelet Count, Automated [place] ([facility]) red cell distribution width 18.4 % 11.5-14.5 Above high no rmal Red Cell Distribution Width [place] ([facility]) lymph % 11.3 % 24.0-44.0 Below low normal Lymph % [place] ( [facility]) mono % 11.6 % 0.0-5.0 Above high normal [place] % [place] ([facility]) immature granulocyte % 0.4 % 0-3.0 normal Immature Gran ulocyte % [place] ([facility]) baso % 0.6 % 0.0-1.0 normal Baso % [place] ([facility]) eos % 0.9 % 0.0-3.0 normal Eos % [place] ([facility]) nucleated red blood cell % 0.0 % 0-0 normal Nucleated Red Blood Cell % [place] ([facility]) neutrophils # 5.1 10 1.5-8.5 normal Neutrophils # [place] ( [facility]) mono # 0.8 10 0.0-0.8 normal [place] # [place] ([facility]) eos # 0.1 10 0.0-0.5 normal Eos # [place] ([facility]) lymph # 0.8 10 1.5-5.0 Below low normal Lymph # [place] ( [facility]) baso # 0.0 10 0.0-0.2 normal Baso # [place] ([facility]) ID Date Data Source [id number] 08/16/2020 09:04:00 AM EST [place] ([facility]) Name Value Range Interpretation Code Description Data Julia rce(s) Supporting Document(s) albumin 25% transfused product: albumin 25% count: 4 Albumin 25% [place] ([facility]) ID Date Data Source [id number] 08/16/2020 09:04:00 AM EST [place] ([facility]) Name Value Range Interpretation Code Description Data Julia rce(s) Supporting Document(s) total protein, body fluid 1.4 g/dL not established normal Total Protein, Body Fluid [place] ([facility]) source, body fluid tot protein ascites normal Sourc e, Body Fluid Tot Protein [place] ([facility]) ID Date Data Source [id number] 08/16/2020 09:04:00 AM EST [place] ([facility]) Name Value Range Interpretation Code Description Data Julia rce(s) Supporting Document(s) ascites fL color yellow colorless normal Ascites fL Color [place] ([facility]) source, body fluid ascites normal Source, Body Flui d [place] ([facility]) WBC body fluid 163 /uL 0-10 Above high normal WBC Body Fluid [place] ([facility]) appearance, body fluid cloudy clear normal Appearance, B jamil Fluid [place] ([facility]) bf mononuclear cell % 97.6 % 0-0 Above high normal Bf [place] nuclear Cell % [place] ([facility]) RBC body fluid < 2 <2 normal RBC Body Fluid [place] ([facility]) bf polymorphonuclear cell % 2.4 % 0-0 Above high no rmal Bf Polymorphonuclear Cell % [place] ([facility]) ID Date Data Source [id number] 08/16/2020 09:04:00 AM EST [place] ([facility]) Name Value Range Interpretation Code Description Data Julia rce(s) Supporting Document(s) albumin, body fluid 0.7 g/dL not established normal Albumin, Julien dy Fluid [place] ([facility]) source, body fluid albumin ascites normal Source, B jamil Fluid Albumin [place] ([facility]) ID Date Data Source [id number] 08/16/2020 09:04:00 AM EST [place] ([facility]) Name Value Range Interpretation Code Description Data Julia rce(s) Supporting Document(s) albumin 25% transfused product: albumin 25% count: 4 Albumin 25% [place] ([facility]) ID Date Data Source [id number] 08/16/2020 09:04:00 AM EST [place] ([facility]) Name Value Range Interpretation Code Description Data Julia rce(s) Supporting Document(s) total protein, body fluid 1.4 g/dL not established normal Total Protein, Body Fluid [place] ([facility]) source, body fluid tot protein ascites normal Sourc e, Body Fluid Tot Protein [place] ([facility]) ID Date Data Source [id number] 08/16/2020 09:04:00 AM EST [place] ([facility]) Name Value Range Interpretation Code Description Data Julia rce(s) Supporting Document(s) source, body fluid ascites normal Source, Body Flui d [place] ([facility]) ascites fL color yellow colorless normal Ascites fL Color [place] ([facility]) appearance, body fluid cloudy clear normal Appearance, B jamil Fluid [place] ([facility]) WBC body fluid 163 /uL 0-10 Above high normal WBC Body Fluid [place] ([facility]) bf mononuclear cell % 97.6 % 0-0 Above high normal Bf [place] nuclear Cell % [place] ([facility]) RBC body fluid < 2 <2 normal RBC Body Fluid [place] ([facility]) bf polymorphonuclear cell % 2.4 % 0-0 Above high no rmal Bf Polymorphonuclear Cell % [place] ([facility]) ID Date Data Source [id number] 08/16/2020 09:04:00 AM EST [place] ([facility]) Name Value Range Interpretation Code Description Data Julia rce(s) Supporting Document(s) albumin, body fluid 0.7 g/dL not established normal Albumin, Julien dy Fluid [place] ([facility]) source, body fluid albumin ascites normal Source, B jamil Fluid Albumin [place] ([facility]) ID Date Data Source [id number] 08/16/2020 09:04:00 AM EST [place] ([facility]) Name Value Range Interpretation Code Description Data Julia rce(s) Supporting Document(s) albumin 25% transfused product: albumin 25% count: 4 Albumin 25% [place] ([facility]) ID Date Data Source [id number] 08/16/2020 09:04:00 AM EST [place] ([facility]) Name Value Range Interpretation Code Description Data Julia rce(s) Supporting Document(s) total protein, body fluid 1.4 g/dL not established normal Total Protein, Body Fluid [place] ([facility]) source, body fluid tot protein ascites normal Sourc e, Body Fluid Tot Protein [place] ([facility]) ID Date Data Source [id number] 08/16/2020 09:04:00 AM EST [place] ([facility]) Name Value Range Interpretation Code Description Data Julia rce(s) Supporting Document(s) source, body fluid ascites normal Source, Body Flui d [place] ([facility]) ascites fL color yellow colorless normal Ascites fL Color [place] ([facility]) appearance, body fluid cloudy clear normal Appearance, B jamil Fluid [place] ([facility]) RBC body fluid < 2 <2 normal RBC Body Fluid [place] ([facility]) WBC body fluid 163 /uL 0-10 Above high normal WBC Body Fluid [place] ([facility]) bf polymorphonuclear cell % 2.4 % 0-0 Above high no rmal Bf Polymorphonuclear Cell % [place] ([facility]) bf mononuclear cell % 97.6 % 0-0 Above high normal Bf [place] nuclear Cell % [place] ([facility]) ID Date Data Source [id number] 08/16/2020 09:04:00 AM EST [place] ([facility]) Name Value Range Interpretation Code Description Data Julia rce(s) Supporting Document(s) albumin, body fluid 0.7 g/dL not established normal Albumin, Julien dy Fluid [place] ([facility]) source, body fluid albumin ascites normal Source, B jamil Fluid Albumin [place] ([facility]) ID Date Data Source [id number] 08/16/2020 09:04:00 AM EST [place] ([facility]) Name Value Range Interpretation Code Description Data Julia rce(s) Supporting Document(s) albumin 25% transfused product: albumin 25% count: 4 Albumin 25% [place] ([facility]) ID Date Data Source [id number] 08/16/2020 09:04:00 AM EST [place] ([facility]) Name Value Range Interpretation Code Description Data Julia rce(s) Supporting Document(s) total protein, body fluid 1.4 g/dL not established normal Total Protein, Body Fluid [place] ([facility]) source, body fluid tot protein ascites normal Sourc e, Body Fluid Tot Protein [place] ([facility]) ID Date Data Source [id number] 08/16/2020 09:04:00 AM EST [place] ([facility]) Name Value Range Interpretation Code Description Data Julia rce(s) Supporting Document(s) source, body fluid ascites normal Source, Body Flui d [place] ([facility]) ascites fL color yellow colorless normal Ascites fL Color [place] ([facility]) appearance, body fluid cloudy clear normal Appearance, B jamil Fluid [place] ([facility]) WBC body fluid 163 /uL 0-10 Above high normal WBC Body Fluid [place] ([facility]) bf mononuclear cell % 97.6 % 0-0 Above high normal Bf [place] nuclear Cell % [place] ([facility]) RBC body fluid < 2 <2 normal RBC Body Fluid [place] ([facility]) bf polymorphonuclear cell % 2.4 % 0-0 Above high no rmal Bf Polymorphonuclear Cell % [place] ([facility]) ID Date Data Source [id number] 08/16/2020 09:04:00 AM EST [place] ([facility]) Name Value Range Interpretation Code Description Data Julia rce(s) Supporting Document(s) albumin, body fluid 0.7 g/dL not established normal Albumin, Julien dy Fluid [place] ([facility]) source, body fluid albumin ascites normal Source, B jamil Fluid Albumin [place] ([facility]) ID Date Data Source [id number] 08/14/2020 04:00:00 PM EST [place] ([facility]) Name Value Range Interpretation Code Description Data Julia rce(s) Supporting Document(s) ID Date Data Source [id number] 08/14/2020 04:00:00 PM EST [place] ([facility]) Name Value Range Interpretation Code Description Data Julia rce(s) Supporting Document(s) ID Date Data Source [id number] 08/14/2020 04:00:00 PM EST [place] ([facility]) Name Value Range Interpretation Code Description Data Julia rce(s) Supporting Document(s) ID Date Data Source [id number] 08/14/2020 04:00:00 PM EST [place] ([facility]) Name Value Range Interpretation Code Description Data Julia rce(s) Supporting Document(s) ID Date Data Source [id number] 08/10/2020 07:19:00 AM EDT [place] ([facility]) Name Value Range Interpretation Code Description Data Julia rce(s) Supporting Document(s) glucose, fasting 130 mg/dL 70-100 Above high normal Glucose, Fas ting [place] ([facility]) creatinine for GFR 1.49 mg/dL 0.55-1.30 Above high normal Creatinine for GFR [place] ([facility]) blood urea nitrogen 34 mg/dL 7-18 Above high normal Blood Ure a Nitrogen [place] ([facility]) glomerular filtration rate >51 Below low normal De[place]ra merular Filtration Rate [place] ([facility]) sodium level 127 mEq/L 136-145 Below low normal Sodium Level [place] ([facility]) potassium serum 5.3 mEq/L 3.5-5.1 Above high normal Potassium Ser um [place] ([facility]) chloride level 93 mEq/L 98-107 Below low normal Chloride Level [place] ([facility]) calcium level 9.1 mg/dL 8.5-10.1 normal Calcium Level [place] ( [facility]) carbon dioxide level 28 mEq/L 21-32 normal Carbon Dioxide Level [place] ([facility]) anion gap 6 mEq/L 8-16 Below low normal Anion Gap [place] ( [facility]) ID Date Data Source [id number] 08/10/2020 07:19:00 AM EDT [place] ([facility]) Name Value Range Interpretation Code Description Data Julia rce(s) Supporting Document(s) ALT/SGPT 30 U/L 12-78 normal ALT/SGPT [place] ([facility]) AST/SGOT 51 U/L 7-37 Above high normal AST/SGOT [place] ([facility]) alkaline phosphatase 136 U/L 45-117 Above high normal Alkaline Phosphatase [place] ([facility]) total protein 7.1 gm/dL 6.4-8.2 normal Total Protein [place] ( [facility]) bilirubin,direct 1.6 mg/dL 0.0-0.2 Above high normal Bilirubin,di rect [place] ([facility]) bilirubin,total 4.7 mg/dL 0.2-1.0 Above high normal Bilirubin,tot al [place] ([facility]) albumin/globulin ratio 1.2-2.2 normal Albumin/globu adam Ratio [place] ([facility]) albumin 3.8 gm/dL 3.2-5.2 normal Albumin [place] ([facility]) ID Date Data Source [id number] 08/10/2020 07:19:00 AM EDT [place] ([facility]) Name Value Range Interpretation Code Description Data Julia rce(s) Supporting Document(s) sodium,random urine 16 mEq/L normal Sodium,random Ur ine [place] ([facility]) ID Date Data Source [id number] 08/10/2020 07:19:00 AM EDT [place] ([facility]) Name Value Range Interpretation Code Description Data Julia rce(s) Supporting Document(s) creatinine,random urine 118.0 mg/dL normal Creatinine, random Urine [place] ([facility]) ID Date Data Source [id number] 08/10/2020 07:19:00 AM EDT [place] ([facility]) Name Value Range Interpretation Code Description Data Julia rce(s) Supporting Document(s) white blood count 8.6 10 4.0-10.0 normal White Blood Count [place] ([facility]) red blood count 3.14 10 4.00-5.40 Below low normal Red Blood Coun t [place] ([facility]) hematocrit 28.6 % 36.0-47.0 Below low normal Hematocrit [place] ( [facility]) hemoglobin 10.1 g/dL 12.0-15.5 Below low normal Hemoglobin [place] ( [facility]) mean corpuscular hemoglobin 32.2 pg 27.0-33.0 normal Mean Corpuscular Hemoglobin [place] ([facility]) mean corpuscular HGB conc 35.3 g/dL 32.0-36.5 normal Mean Corpu scular HGB Conc [place] ([facility]) mean corpuscular volume 91.1 fL 80.0-96.0 normal Mean Corpusc ular Volume [place] ([facility]) nucleated red blood cell % 0.0 % 0-0 normal Nucleated Red Blood Cell % [place] ([facility]) red cell distribution width 17.7 % 11.5-14.5 Above high no rmal Red Cell Distribution Width [place] ([facility]) platelet count, automated 118 10 150-450 Below low denice l Platelet Count, Automated [place] ([facility]) ID Date Data Source [id number] 08/10/2020 07:19:00 AM EDT [facility]) Name Value Range Interpretation Code Description Data Julia rce(s) Supporting Document(s) blood urea nitrogen 34 mg/dL 7-18 Above high normal Blood Ure a Nitrogen [place] ([facility]) glucose, fasting 130 mg/dL 70-100 Above high normal Glucose, Fas ting [facility]) creatinine for GFR 1.49 mg/dL 0.55-1.30 Above high normal Creatinine for GFR [place] ([facility]) glomerular filtration rate >51 Below low normal Deidra merular Filtration Rate [place] ([facility]) sodium level 127 mEq/L 136-145 Below low normal Sodium Level [place] ([facility]) chloride level 93 mEq/L 98-107 Below low normal Chloride Level [place] ([facility]) anion gap 6 mEq/L 8-16 Below low normal Anion Gap [place] ( [facility]) potassium serum 5.3 mEq/L 3.5-5.1 Above high normal Potassium Ser um [place] ([facility]) carbon dioxide level 28 mEq/L 21-32 normal Carbon Dioxide Level [place] ([facility]) calcium level 9.1 mg/dL 8.5-10.1 normal Calcium Level [place] ( [facility]) ID Date Data Source [id number] 08/10/2020 07:19:00 AM EDT [place] ([facility]) Name Value Range Interpretation Code Description Data Julia rce(s) Supporting Document(s) AST/SGOT 51 U/L 7-37 Above high normal AST/SGOT [place] ([facility]) ALT/SGPT 30 U/L 12-78 normal ALT/SGPT [place] ([facility]) bilirubin,total 4.7 mg/dL 0.2-1.0 Above high normal Bilirubin,tot al [place] ([facility]) alkaline phosphatase 136 U/L 45-117 Above high normal Alkaline Phosphatase [place] ([facility]) albumin 3.8 gm/dL 3.2-5.2 normal Albumin [place] ([facility]) albumin/globulin ratio 1.2-2.2 normal Albumin/globu adam Ratio [place] ([facility]) bilirubin,direct 1.6 mg/dL 0.0-0.2 Above high normal Bilirubin,di rect [place] ([facility]) total protein 7.1 gm/dL 6.4-8.2 normal Total Protein [facility]) ID Date Data Source [id number] 08/10/2020 07:19:00 AM EDT [place] ([facility]) Name Value Range Interpretation Code Description Data Julia rce(s) Supporting Document(s) sodium,random urine 16 mEq/L normal Sodium,random Ur ine [place] ([facility]) ID Date Data Source [id number] 08/10/2020 07:19:00 AM EDT [place] ([facility]) Name Value Range Interpretation Code Description Data Julia rce(s) Supporting Document(s) creatinine,random urine 118.0 mg/dL normal Creatinine, random Urine [place] ([facility]) ID Date Data Source [id number] 08/10/2020 07:19:00 AM EDT [facility]) Name Value Range Interpretation Code Description Data Julia rce(s) Supporting Document(s) red blood count 3.14 10 4.00-5.40 Below low normal Red Blood Coun t [facility]) white blood count 8.6 10 4.0-10.0 normal White Blood Count [place] ([facility]) hematocrit 28.6 % 36.0-47.0 Below low normal Hematocrit [place] ( [facility]) hemoglobin 10.1 g/dL 12.0-15.5 Below low normal Hemoglobin [place] ( [facility]) mean corpuscular hemoglobin 32.2 pg 27.0-33.0 normal Mean Corpuscular Hemoglobin [place] ([facility]) mean corpuscular volume 91.1 fL 80.0-96.0 normal Mean Corpusc ular Volume [place] ([facility]) platelet count, automated 118 10 150-450 Below low denice l Platelet Count, Automated [facility]) mean corpuscular HGB conc 35.3 g/dL 32.0-36.5 normal Mean Corpu scular HGB Conc [place] ([facility]) red cell distribution width 17.7 % 11.5-14.5 Above high no rmal Red Cell Distribution Width [place] ([facility]) nucleated red blood cell % 0.0 % 0-0 normal Nucleated Red Blood Cell % [place] ([facility]) ID Date Data Source [id number] 08/10/2020 07:19:00 AM EDT [place] ([facility]) Name Value Range Interpretation Code Description Data Julia rce(s) Supporting Document(s) glucose, fasting 130 mg/dL 70-100 Above high normal Glucose, Fas ting [place] ([facility]) blood urea nitrogen 34 mg/dL 7-18 Above high normal Blood Ure a Nitrogen [place] ([facility]) creatinine for GFR 1.49 mg/dL 0.55-1.30 Above high normal Creatinine for GFR [place] ([facility]) glomerular filtration rate >51 Below low normal Deidra merular Filtration Rate [place] ([facility]) sodium level 127 mEq/L 136-145 Below low normal Sodium Level [place] ([facility]) potassium serum 5.3 mEq/L 3.5-5.1 Above high normal Potassium Ser um [place] ([facility]) chloride level 93 mEq/L 98-107 Below low normal Chloride Level [place] ([facility]) anion gap 6 mEq/L 8-16 Below low normal Anion Gap [place] ( [facility]) carbon dioxide level 28 mEq/L 21-32 normal Carbon Dioxide Level [place] ([facility]) calcium level 9.1 mg/dL 8.5-10.1 normal Calcium Level [place] ( [facility]) ID Date Data Source [id number] 08/10/2020 07:19:00 AM EDT [place] ([facility]) Name Value Range Interpretation Code Description Data Julia rce(s) Supporting Document(s) AST/SGOT 51 U/L 7-37 Above high normal AST/SGOT [place] ([facility]) alkaline phosphatase 136 U/L 45-117 Above high normal Alkaline Phosphatase [place] ([facility]) ALT/SGPT 30 U/L 12-78 normal ALT/SGPT [place] ([facility]) bilirubin,direct 1.6 mg/dL 0.0-0.2 Above high normal Bilirubin,di rect [place] ([facility]) bilirubin,total 4.7 mg/dL 0.2-1.0 Above high normal Bilirubin,tot al [place] ([facility]) total protein 7.1 gm/dL 6.4-8.2 normal Total Protein [place] ( [facility]) albumin 3.8 gm/dL 3.2-5.2 normal Albumin [place] ([facility]) albumin/globulin ratio 1.2-2.2 normal Albumin/globu adam Ratio [place] ([facility]) ID Date Data Source [id number] 08/10/2020 07:19:00 AM EDT [facility]) Name Value Range Interpretation Code Description Data Julia rce(s) Supporting Document(s) sodium,random urine 16 mEq/L normal Sodium,random Ur ine [facility]) ID Date Data Source [id number] 08/10/2020 07:19:00 AM EDT [facility]) Name Value Range Interpretation Code Description Data Julia rce(s) Supporting Document(s) creatinine,random urine 118.0 mg/dL normal Creatinine, random Urine [facility]) ID Date Data Source [id number] 08/10/2020 07:19:00 AM EDT [facility]) Name Value Range Interpretation Code Description Data Julia rce(s) Supporting Document(s) white blood count 8.6 10 4.0-10.0 normal White Blood Count [place] ([facility]) hemoglobin 10.1 g/dL 12.0-15.5 Below low normal Hemoglobin [place] ( [facility]) red blood count 3.14 10 4.00-5.40 Below low normal Red Blood Coun t [place] ([facility]) mean corpuscular volume 91.1 fL 80.0-96.0 normal Mean Corpusc ular Volume [place] ([facility]) hematocrit 28.6 % 36.0-47.0 Below low normal Hematocrit [place] ( [facility]) mean corpuscular hemoglobin 32.2 pg 27.0-33.0 normal Mean Corpuscular Hemoglobin [place] ([facility]) mean corpuscular HGB conc 35.3 g/dL 32.0-36.5 normal Mean Corpu scular HGB Conc [place] ([facility]) red cell distribution width 17.7 % 11.5-14.5 Above high no rmal Red Cell Distribution Width [place] ([facility]) platelet count, automated 118 10 150-450 Below low denice l Platelet Count, Automated [place] ([facility]) nucleated red blood cell % 0.0 % 0-0 normal Nucleated Red Blood Cell % [place] ([facility]) ID Date Data Source [id number] 08/10/2020 07:19:00 AM EDT [place] ([facility]) Name Value Range Interpretation Code Description Data Julia rce(s) Supporting Document(s) glucose, fasting 130 mg/dL 70-100 Above high normal Glucose, Fas ting [place] ([facility]) blood urea nitrogen 34 mg/dL 7-18 Above high normal Blood Ure a Nitrogen [place] ([facility]) creatinine for GFR 1.49 mg/dL 0.55-1.30 Above high normal Creatinine for GFR [place] ([facility]) glomerular filtration rate >51 Below low normal Deidra merular Filtration Rate [place] ([facility]) carbon dioxide level 28 mEq/L 21-32 normal Carbon Dioxide Level [place] ([facility]) chloride level 93 mEq/L 98-107 Below low normal Chloride Level [place] ([facility]) sodium level 127 mEq/L 136-145 Below low normal Sodium Level [place] [place] ([facility]) potassium serum 5.3 mEq/L 3.5-5.1 Above high normal Potassium Ser um [place] ([facility]) anion gap 6 mEq/L 8-16 Below low normal Anion Gap [place] ( [facility]) calcium level 9.1 mg/dL 8.5-10.1 normal Calcium Level [place] ( [facility]) ID Date Data Source [id number] 08/10/2020 07:19:00 AM EDT [place] ([facility]) Name Value Range Interpretation Code Description Data Julia rce(s) Supporting Document(s) AST/SGOT 51 U/L 7-37 Above high normal AST/SGOT [place] ([facility]) ALT/SGPT 30 U/L 12-78 normal ALT/SGPT [place] ([facility]) bilirubin,total 4.7 mg/dL 0.2-1.0 Above high normal Bilirubin,tot al [place] ([facility]) alkaline phosphatase 136 U/L 45-117 Above high normal Alkaline Phosphatase [place] ([facility]) bilirubin,direct 1.6 mg/dL 0.0-0.2 Above high normal Bilirubin,di rect [place] ([facility]) albumin/globulin ratio 1.2-2.2 normal Albumin/globu adam Ratio [place] ([facility]) albumin 3.8 gm/dL 3.2-5.2 normal Albumin [place] ([facility]) total protein 7.1 gm/dL 6.4-8.2 normal Total Protein [place] ( [facility]) ID Date Data Source [id number] 08/10/2020 07:19:00 AM EDT [place] ([facility]) Name Value Range Interpretation Code Description Data Julia rce(s) Supporting Document(s) sodium,random urine 16 mEq/L normal Sodium,random Ur ine [place] ([facility]) ID Date Data Source [id number] 08/10/2020 07:19:00 AM EDT [place] ([facility]) Name Value Range Interpretation Code Description Data Julia rce(s) Supporting Document(s) creatinine,random urine 118.0 mg/dL normal Creatinine, random Urine [place] ([facility]) ID Date Data Source [id number] 08/10/2020 07:19:00 AM EDT [facility]) Name Value Range Interpretation Code Description Data Julia rce(s) Supporting Document(s) white blood count 8.6 10 4.0-10.0 normal White Blood Count [place] ([facility]) hemoglobin 10.1 g/dL 12.0-15.5 Below low normal Hemoglobin [place] ( [facility]) red blood count 3.14 10 4.00-5.40 Below low normal Red Blood Coun t [place] ([facility]) hematocrit 28.6 % 36.0-47.0 Below low normal Hematocrit [place] ( [facility]) mean corpuscular volume 91.1 fL 80.0-96.0 normal Mean Corpusc ular Volume [place] ([facility]) mean corpuscular hemoglobin 32.2 pg 27.0-33.0 normal Mean Corpuscular Hemoglobin [place] ([facility]) mean corpuscular HGB conc 35.3 g/dL 32.0-36.5 normal Mean Corpu scular HGB Conc [place] ([facility]) red cell distribution width 17.7 % 11.5-14.5 Above high no rmal Red Cell Distribution Width [place] ([facility]) platelet count, automated 118 10 150-450 Below low denice l Platelet Count, Automated [place] ([facility]) nucleated red blood cell % 0.0 % 0-0 normal Nucleated Red Blood Cell % [place] ([facility]) ID Date Data Source [id number] 08/09/2020 12:28:00 PM EDT [place] ([facility]) Name Value Range Interpretation Code Description Data Julia rce(s) Supporting Document(s) albumin, body fluid 0.7 g/dL not established normal Albumin, Julien dy Fluid [place] ([facility]) source, body fluid albumin ascites normal Source, B jamil Fluid Albumin [facility]) ID Date Data Source [id number] 08/09/2020 12:28:00 PM EDT [facility]) Name Value Range Interpretation Code Description Data Julia rce(s) Supporting Document(s) total protein, body fluid 1.3 g/dL not established normal Total Protein, Body Fluid [place] ([facility]) source, body fluid tot protein ascites normal Sourc e, Body Fluid Tot Protein [facility]) ID Date Data Source [id number] 08/09/2020 12:28:00 PM EDT [facility]) Name Value Range Interpretation Code Description Data Julia rce(s) Supporting Document(s) source, body fluid ascites normal Source, Body Flui d [place] ([facility]) appearance, body fluid cloudy clear normal Appearance, B jamil Fluid [place] ([facility]) ascites fL color yellow colorless normal Ascites fL Color AT [facility] ([facility]) WBC body fluid 152 /uL 0-10 Above high normal WBC Body Fluid [place] ([facility]) bf mononuclear cell % 96.7 % 0-0 Above high normal Bf [place] nuclear Cell % [place] ([facility]) RBC body fluid 3 10 <2 normal RBC Body Fluid [place] ([facility]) bf polymorphonuclear cell % 3.3 % 0-0 Above high no rmal Bf Polymorphonuclear Cell % [facility]) ID Date Data Source [id number] 08/09/2020 12:28:00 PM EDT [facility]) Name Value Range Interpretation Code Description Data Julia rce(s) Supporting Document(s) source, body fluid ascites normal Source, Body Flui d [place] ([facility]) appearance, body fluid cloudy clear normal Appearance, B jamil Fluid [place] ([facility]) ascites fL color yellow colorless normal Ascites fL Color [place] ([facility]) WBC body fluid 152 /uL 0-10 Above high normal WBC Body Fluid [place] ([facility]) RBC body fluid 3 10 <2 normal RBC Body Fluid [place] ([facility]) bf polymorphonuclear cell % 3.3 % 0-0 Above high no rmal Bf Polymorphonuclear Cell % [place] ([facility]) bf mononuclear cell % 96.7 % 0-0 Above high normal Bf [place] nuclear Cell % [place] ([facility]) ID Date Data Source [id number] 08/09/2020 12:28:00 PM EDT [place] ([facility]) Name Value Range Interpretation Code Description Data Julia rce(s) Supporting Document(s) source, body fluid albumin ascites normal Source, B jamil Fluid Albumin [place] ([facility]) albumin, body fluid 0.7 g/dL not established normal Albumin, Julien dy Fluid [place] ([facility]) ID Date Data Source [id number] 08/09/2020 12:28:00 PM EDT [facility]) Name Value Range Interpretation Code Description Data Julia rce(s) Supporting Document(s) source, body fluid tot protein ascites normal Sourc e, Body Fluid Tot Protein [place] ([facility]) total protein, body fluid 1.3 g/dL not established normal Total Protein, Body Fluid [place] ([facility]) ID Date Data Source [id number] 08/09/2020 12:28:00 PM EDT [place] ([facility]) Name Value Range Interpretation Code Description Data Julia rce(s) Supporting Document(s) ascites fL color yellow colorless normal Ascites fL Color AT [facility] ([facility]) source, body fluid ascites normal Source, Body Flui d [place] ([facility]) WBC body fluid 152 /uL 0-10 Above high normal WBC Body Fluid [place] ([facility]) appearance, body fluid cloudy clear normal Appearance, B jamil Fluid [place] ([facility]) RBC body fluid 3 10 <2 normal RBC Body Fluid [place] ([facility]) bf mononuclear cell % 96.7 % 0-0 Above high normal Bf [place] nuclear Cell % [place] ([facility]) bf polymorphonuclear cell % 3.3 % 0-0 Above high no rmal Bf Polymorphonuclear Cell % [place] ([facility]) ID Date Data Source [id number] 08/09/2020 12:28:00 PM EDT [place] ([facility]) Name Value Range Interpretation Code Description Data Julia rce(s) Supporting Document(s) albumin, body fluid 0.7 g/dL not established normal Albumin, Julien dy Fluid [place] ([facility]) source, body fluid albumin ascites normal Source, B jamil Fluid Albumin [place] ([facility]) ID Date Data Source [id number] 08/09/2020 12:28:00 PM EDT [place] ([facility]) Name Value Range Interpretation Code Description Data Julia rce(s) Supporting Document(s) source, body fluid tot protein ascites normal Sourc e, Body Fluid Tot Protein [place] ([facility]) total protein, body fluid 1.3 g/dL not established normal Total Protein, Body Fluid [place] ([facility]) ID Date Data Source [id number] 08/09/2020 12:28:00 PM EDT [place] ([facility]) Name Value Range Interpretation Code Description Data Julia rce(s) Supporting Document(s) ascites fL color yellow colorless normal Ascites fL Color [place] ([facility]) source, body fluid ascites normal Source, Body Flui d [place] ([facility]) RBC body fluid 3 10 <2 normal RBC Body Fluid [place] ([facility]) appearance, body fluid cloudy clear normal Appearance, B jamil Fluid [place] ([facility]) WBC body fluid 152 /uL 0-10 Above high normal WBC Body Fluid [place] ([facility]) bf polymorphonuclear cell % 3.3 % 0-0 Above high no rmal Bf Polymorphonuclear Cell % [place] ([facility]) bf mononuclear cell % 96.7 % 0-0 Above high normal Bf [place] nuclear Cell % [place] ([facility]) ID Date Data Source [id number] 08/09/2020 12:28:00 PM EDT [facility]) Name Value Range Interpretation Code Description Data Julia rce(s) Supporting Document(s) source, body fluid albumin ascites normal Source, B jamil Fluid Albumin [place] ([facility]) albumin, body fluid 0.7 g/dL not established normal Albumin, Julien dy Fluid [place] ([facility]) ID Date Data Source [id number] 08/09/2020 12:28:00 PM EDT [place] ([facility]) Name Value Range Interpretation Code Description Data Julia rce(s) Supporting Document(s) source, body fluid tot protein ascites normal Sourc e, Body Fluid Tot Protein [place] ([facility]) total protein, body fluid 1.3 g/dL not established normal Total Protein, Body Fluid [place] ([facility]) ID Date Data Source [id number] 08/09/2020 12:03:00 PM EDT [place] ([facility]) Name Value Range Interpretation Code Description Data Julia rce(s) Supporting Document(s) albumin 25% transfused product: albumin 25% count: 4 Albumin 25% [place] ([facility]) ID Date Data Source [id number] 08/09/2020 12[facility]03[facility] Name Value Range Interpretation Code Description Data Julia rce(s) Supporting Document(s) albumin 25% transfused product: albumin 25% count: 4 Albumin 25% [place] ([facility]) ID Date Data Source [id number] 08/09/2020 12:03:00 PM EDT [place] ([facility]) Name Value Range Interpretation Code Description Data Julia rce(s) Supporting Document(s) albumin 25% transfused product: albumin 25% count: 4 Albumin 25% [place] ([facility]) ID Date Data Source [id number] 08/09/2020 12:03:00 PM EDT [place] ([facility]) Name Value Range Interpretation Code Description Data Julia rce(s) Supporting Document(s) albumin 25% transfused product: albumin 25% count: 4 Albumin 25% [place] ([facility]) ID Date Data Source [id number] 08/02/2020 12:40:00 PM EDT [place] ([facility]) Name Value Range Interpretation Code Description Data Julia rce(s) Supporting Document(s) source, body fluid albumin ascites normal Source, B jamil Fluid Albumin [place] ([facility]) albumin, body fluid 0.7 g/dL not established normal Albumin, Julien dy Fluid [place] ([facility]) ID Date Data Source [id number] 08/02/2020 12:40:00 PM EDT [place] ([facility]) Name Value Range Interpretation Code Description Data Julia rce(s) Supporting Document(s) total protein, body fluid 1.2 g/dL not established normal Total Protein, Body Fluid [place] ([facility]) source, body fluid tot protein ascites normal Sourc e, Body Fluid Tot Protein [place] ([facility]) ID Date Data Source [id number] 08/02/2020 12:40:00 PM EDT [place] ([facility]) Name Value Range Interpretation Code Description Data Julia rce(s) Supporting Document(s) source, body fluid ascites normal Source, Body Flui d [place] ([facility]) WBC body fluid 149 /uL 0-10 Above high normal WBC Body Fluid [place] ([facility]) appearance, body fluid cloudy clear normal Appearance, B jamil Fluid [place] ([facility]) ascites fL color yellow colorless normal Ascites fL Color [place] ([facility]) bf mononuclear cell % 97.3 % 0-0 Above high normal Bf [place] nuclear Cell % [place] ([facility]) RBC body fluid < 2 <2 normal RBC Body Fluid [place] ([facility]) bf polymorphonuclear cell % 2.7 % 0-0 Above high no rmal Bf Polymorphonuclear Cell % [place] ([facility]) ID Date Data Source [id number] 08/02/2020 12:40:00 PM EDT [facility]) Name Value Range Interpretation Code Description Data Julia rce(s) Supporting Document(s) albumin, body fluid 0.7 g/dL not established normal Albumin, Julien dy Fluid [place] ([facility]) source, body fluid albumin ascites normal Source, B jamil Fluid Albumin [facility]) ID Date Data Source [id number] 08/02/2020 12:40:00 PM EDT [facility]) Name Value Range Interpretation Code Description Data Julia rce(s) Supporting Document(s) total protein, body fluid 1.2 g/dL not established normal Total Protein, Body Fluid [facility]) source, body fluid tot protein ascites normal Sourc e, Body Fluid Tot Protein [facility]) ID Date Data Source [id number] 08/02/2020 12:40:00 PM EDT [facility]) Name Value Range Interpretation Code Description Data Julia rce(s) Supporting Document(s) source, body fluid ascites normal Source, Body Flui d [place] ([facility]) ascites fL color yellow colorless normal Ascites fL [place] ([facility]) WBC body fluid 149 /uL 0-10 Above high normal WBC Body Fluid [facility]) appearance, body fluid cloudy clear normal Appearance, B jamil Fluid [place] ([facility]) bf mononuclear cell % 97.3 % 0-0 Above high normal Bf [place] nuclear Cell % [place] ([facility]) RBC body fluid < 2 <2 normal RBC Body Fluid [place] ([facility]) bf polymorphonuclear cell % 2.7 % 0-0 Above high no rmal Bf Polymorphonuclear Cell % [facility]) ID Date Data Source [id number] 08/02/2020 12:40:00 PM EDT [place] ([facility]) Name Value Range Interpretation Code Description Data Julia rce(s) Supporting Document(s) source, body fluid albumin ascites normal Source, B jamil Fluid Albumin [place] ([facility]) albumin, body fluid 0.7 g/dL not established normal Albumin, Julien dy Fluid [place] ([facility]) ID Date Data Source [id number] 08/02/2020 12:40:00 PM EDT [place] ([facility]) Name Value Range Interpretation Code Description Data Julia rce(s) Supporting Document(s) total protein, body fluid 1.2 g/dL not established normal Total Protein, Body Fluid [place] ([facility]) source, body fluid tot protein ascites normal Sourc e, Body Fluid Tot Protein [facility]) ID Date Data Source [id number] 08/02/2020 12:40:00 PM EDT [place] ([facility]) Name Value Range Interpretation Code Description Data Julia rce(s) Supporting Document(s) source, body fluid ascites normal Source, Body Flui d [place] ([facility]) appearance, body fluid cloudy clear normal Appearance, B jamil Fluid [place] ([facility]) WBC body fluid 149 /uL 0-10 Above high normal WBC Body Fluid [place] ([facility]) ascites fL color yellow colorless normal Ascites fL Color [place] ([facility]) bf mononuclear cell % 97.3 % 0-0 Above high normal Bf [place] nuclear Cell % [place] ([facility]) bf polymorphonuclear cell % 2.7 % 0-0 Above high no rmal Bf Polymorphonuclear Cell % [place] ([facility]) RBC body fluid < 2 <2 normal RBC Body Fluid [facility]) ID Date Data Source [id number] 08/02/2020 12:40:00 PM EDT [facility]) Name Value Range Interpretation Code Description Data Julia rce(s) Supporting Document(s) source, body fluid albumin ascites normal Source, B jamil Fluid Albumin [place] ([facility]) albumin, body fluid 0.7 g/dL not established normal Albumin, Julien dy Fluid [place] ([facility]) ID Date Data Source [id number] 08/02/2020 12:40:00 PM EDT [place] ([facility]) Name Value Range Interpretation Code Description Data Julia rce(s) Supporting Document(s) source, body fluid tot protein ascites normal Sourc e, Body Fluid Tot Protein [place] ([facility]) total protein, body fluid 1.2 g/dL not established normal Total Protein, Body Fluid [place] ([facility]) ID Date Data Source [id number] 08/02/2020 12:40:00 PM EDT [place] ([facility]) Name Value Range Interpretation Code Description Data Julia rce(s) Supporting Document(s) appearance, body fluid cloudy clear normal Appearance, B jamil Fluid [place] ([facility]) WBC body fluid 149 /uL 0-10 Above high normal WBC Body Fluid [place] ([facility]) ascites fL color yellow colorless normal Ascites fL [place] ([facility]) source, body fluid ascites normal Source, Body Flui d [place] ([facility]) bf mononuclear cell % 97.3 % 0-0 Above high normal Bf [place] nuclear Cell % [place] ([facility]) RBC body fluid < 2 <2 normal RBC Body Fluid [place] ([facility]) bf polymorphonuclear cell % 2.7 % 0-0 Above high no rmal Bf Polymorphonuclear Cell % [place] ([facility]) ID Date Data Source [id number] 08/02/2020 08:27:00 AM EDT [place] ([facility]) Name Value Range Interpretation Code Description Data Julia rce(s) Supporting Document(s) albumin 25% transfused product: albumin 25% count: 4 Albumin 25% [place] ([facility]) ID Date Data Source [id number] 08/02/2020 08:27:00 AM EDT [place] ([facility]) Name Value Range Interpretation Code Description Data Julia rce(s) Supporting Document(s) albumin 25% transfused product: albumin 25% count: 4 Albumin 25% [place] ([facility]) ID Date Data Source [id number] 08/02/2020 08:27:00 AM EDT [place] ([facility]) Name Value Range Interpretation Code Description Data Julia rce(s) Supporting Document(s) albumin 25% transfused product: albumin 25% count: 4 Albumin 25% [place] ([facility]) ID Date Data Source [id number] 08/02/2020 08:27:00 AM EDT [place] ([facility]) Name Value Range Interpretation Code Description Data Julia rce(s) Supporting Document(s) albumin 25% transfused product: albumin 25% count: 4 Albumin 25% [place] ([facility]) ID Date Data Source [id number] 06/28/2020 11:28:00 AM EDT [facility] Name Value Range Interpretation Code Description Data Julia rce(s) Supporting Document(s) HCT 32.4 % 36.0-47.0 L [facility] HGB 11.5 g/dL 12.0-15.5 L [facility] MCH 35.5 G/DL pg 32.0-36.5 N [facility] MCHC 35.1 PG % 27.0-33.0 H [facility] PLATELETS 137 10 10*3/mm3 150-450 L [facility] RBC 3.28 10 10*6/mm3 4.00-5.40 L [facility] RDW 16.4 % 11.5-14.5 H [facility] WBC TOTAL 7.2 4.0-10.0 N [facility] ID Date Data Source [id number] 06/28/2020 11:28:00 AM EDT [facility] Name Value Range Interpretation Code Description Data Julia rce(s) Supporting Document(s) BG FASTING 104 mg/dL 70-100 H [facility] ID Date Data Source [id number] 06/11/2020 09:54:18 AM EDT [facility] [...] or Preferred Language: EnglishFamily and Home Address: [address] [place] [address] What is your housing situation today? I have housing Are you worried about losing your housing? NoMoney and Resources In the past year, have you or any family members you live with been unable to get any of the following when it was really needed? Denies Insecurity: food, utilities, clothing, children's aide, phone, legal services, otherWithin the past year [...] during this visit, including review of any [id number]-[id number] medications, herbal therapies, and/or supplements.Allergy ReviewAllergy List [...] adult medical examination with abnormal findings (ICD-V70.0) (PML89-O33.01) Assessment: Instructions: Recommend annual medical appointments. Recommend routine dental and vision care. Recommend influenza vaccines annually and tetanus boosters every 10 years. Please call when you are ready to schedule mammogram and pap smear.Assessed:Alcoholic cirrhosis of liver with ascites (ICD-571.2) (ICD10- K70.31) Assessment: Instructions: Continue per GI.Edema of lower extremity (ICD-782.3) (SCT00-O43.0) Assessment: Instructions: Stable with current medications. 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) (OWE54-M20.11) Assessment: Instructions: Continue remaining sober.Insomnia, unspecified (OSO80-H89.00) Assessment: Instructions: Stable with hydroxyzine 2 tablets at bedtime.Assessment not SavedEncounter for immunization ([id number]): Patient Instructions/Care Plan: Encounter for general adult [...] po qhsAllergies:RAMELTEON (RAMELTEON) (Severe)Orders:Preventive, Est, (4064) [CPT- 55334] Follow-Up Return to clinic: in 3 months for follow upAdditional Follow- Up: cirrhosisClinical Visit Summary Declined Name Value Range Interpretation Code Description Data Julia rce(s) Supporting Document(s) ID Date Data Source [id number] 05/10/2020 09:33:44 AM EDT [facility] Measurements & CalculationsHeight: 61 inches (5 [...] needed paracentesis through GI, states she calls [facility] when she feels her ascites is worsening. [...] during this visit, including review of any mhop-xfj-oxktdyi medications, herbal therapies, and/or supplements.Allergy ReviewAllergy List [...] & Plan Problems:Added: Encounter for immunization (ICD-V05.9) (BWJ35-I59)Assessed:Alcoholic cirrhosis of liver with ascites (ICD-571.2) (LQH67-G89.31) Assessment: Instructions: Continue per Dr. Lechuga's office.Alcohol abuse, in remission (ICD-305.03) (ICD10- F10.11) Assessment: Instructions: Continue remaining sober.Edema of lower extremity (ICD-782.3) (JEB43-J37.0) Assessment: Instructions: Resolved with current treatment.Insomnia, unspecified (MNQ83-Q69.00) Assessment: Adverse reaction with Ramelteon. Instructions: Start hydroxyzine as prescribed. Follow-up in 1 month. Call us with any concerns.Assessment not SavedEncounter for immunization ([id number]): Instructions: Shingrix sent to pharmacy.Patient Instructions/Care Plan: [...] 1 Method: ElectronicChanged:From: ORAL LACTULOSE SOLUTION Qty: [id number] To: LACTULOSE 10 GM/15ML ORAL SOLUTION-Take 15mLs per dose, 1-2 times daily (adjust dose to get at least 2 soft stools per day)From: ORAL FUROSEMIDE 40 MG ORAL TABLET Qty: [id number] To: FUROSEMIDE 40 MG ORAL TABLET-take 1.5 tablet in the morning and 1 tablet in the eveningFrom: ORAL SPIRONOLACTONE 50 MG ORAL TABLET Qty: [id number] To: SPIRONOLACTONE 50 MG ORAL TABLET-Take 3 tablets po QAM and 2 tablets po QPM (at least 10 hrs apart) dailyFrom: ORAL FOLIC ACID 1 MG ORAL TABLET Qty: [id number] To: FOLIC ACID 1 MG ORAL TABLET-take 1 tablet po dailyAllergies:RAMELTEON (RAMELTEON) (Severe)Information on new prescriptions provided to patient.Orders:Adult - Ofc Vst, EST, Level III [CPT-[id number]] Follow-Up Return to clinic: in 30 days for preventive care visitAdditional Follow-Up: annual PEClinical Visit Summary Completed Name Value Range Interpretation Code Description Data Julia rce(s) Supporting Document(s) ID Date Data Source [id number] 05/01/2020 12:00:00 PM EDT [facility] ([facility], ) Name Value Range Interpretation Code Description Data Julia rce(s) Supporting Document(s) Sodium [Moles/volume] in Urine 11 meq/L N ormal (applies to non-numeric results) [facility] ([facility], ) <content>note:<nlbl:demographic_changed> </content>
<content></content> Creatinine [Mass/volume] in Urine 224.0 mg/dL Normal (applies to non-numeric results) [facility] ([facility]) <content>note:<nlbl:demographic_changed> </content>
<content></content> ID Date Data Source [id number] 05/01/2020 12:00:00 PM EDT [facility] ([facility]) Name Value Range Interpretation Code Description Data Julia rce(s) Supporting Document(s) Glucose, Fasting 110 mg/dL 70-100 Above high [facility] Blood Urea Nitrogen 11 mg/dL 7-18 Normal (applies to non-nume zora results) [facility] ([facility]) Creatinine For GFR 0.76 mg/dL 0.55-1.30 Normal (applies to non -numeric results) [facility] ([facility]) Potassium Serum 4.5 meq/L 3.5-5.1 Normal (applies to non-numeric results) [facility] ([facility]) Glomerular Filtration Rate Laboratory test result Normal (applies to non- numeric results) [facility] ([facility]) <content>Units are mL/min/1.73 m2</content>
<content></content>
<content>Chronic Kidney Disease Staging per NKF:</content>
<content></content>
<content>Stage I & II GFR >=60 Normal to Mildly Decreased</content>
<content>Stage III GFR 30- 59 Moderately Decreased</content>
<content>Stage IV GFR 15-29 Severely Decreased</content>
<content>Stage V GFR <15 Very Little GFR Left</content>
<content>ESRD GFR <15 on RAIL TRACK LAYER</content>
<content></content> Sodium Level 132 meq/L 136-145 Below low normal [facility] ([facility]) Chloride Level 98 meq/L 98-107 Normal (applies to non-numeric r esults) [facility] ([facility]) Carbon Dioxide Level 32 meq/L 21-32 Normal (applies to non-num reynaldo results) [facility] ([facility]) Anion Gap 2 meq/L 8-16 Below low normal [facility] ( [facility]) Calcium Level 8.4 mg/dL 8.5-10.1 Below low normal [facility] ([facility]) ID Date Data Source [id number] 04/18/2020 12:25:00 PM EDT [facility] ([facility]) Name Value Range Interpretation Code Description Data Julia rce(s) Supporting Document(s) Gram Stain Laboratory test result Normal (applies to non-n umeric results) [facility] ([facility]) NO CELLS SEEN NO ORGANISMS SEEN Body Fluid Culture Laboratory test result Normal (applies to non-numeric results) [facility] ([facility]) FULL REPORT IN LAB NOTES ([facility] and [facility] ). ORGANISM 1: BACILLUS SP., NOT ANTHRACIS QUANTITY OF GROWTH MODERATE The majority of Bacillus species have little or no pathogenic potential (common environmental contaminant) and are rarely associated with disease in humans. ORGANISM 1: BACILLUS SP., NOT ANTHRACIS ID Date Data Source [id number] 04/18/2020 09:57:00 AM EDT [facility] ([facility]) Name Value Range Interpretation Code Description Data Julia rce(s) Supporting Document(s) Albumin 25% Laboratory test result M PENDING SALE TO [facility] ([facility]) TRANSFUSED PRODUCT: ALBUMIN 25% COUNT: 4 ID Date Data Source [id number] 04/18/2020 09:51:00 AM EDT [facility] ([facility]) Name Value Range Interpretation Code Description Data Julia rce(s) Supporting Document(s) Albumin, Body Fluid 0.3 g/dL Normal (applies to non-nume zora results) [facility] ([facility]) Source, Body Fluid Albumin Laboratory test result Normal (applies to non- numeric results) [facility] ([facility]) ID Date Data Source [id number] 04/18/2020 09:51:00 AM EDT [facility] ([facility]) Name Value Range Interpretation Code Description Data Julia rce(s) Supporting Document(s) Source, Body Fluid Tot Protein Laboratory test result Normal (applies to non- numeric results) [facility] ([facility]) Total Protein, Body Fluid 0.9 g/dL Normal (applies to no n-numeric results) [facility]) ID Date Data Source [id number] 04/18/2020 09:51:00 AM EDT [facility]) Name Value Range Interpretation Code Description Data Julia rce(s) Supporting Document(s) Source, Body Fluid Laboratory test result Normal (applies to non-numeric results) [facility]) Ascites FL Color Laboratory test result Normal ( applies to non-numeric results) [facility]) WBC Body Fluid 94 /uL 0-10 Above high normal [facility] ([facility]) Appearance, Body Fluid Laboratory test result No rmal (applies to non-numeric results) [facility] ([facility]) BF Polymorphonuclear Cell % 10.7 % 0-0 Above high normal [facility] ([facility]) BF Mononuclear Cell % 89.3 % 0-0 Above high normal [facility] ([facility]) RBC Body Fluid Laboratory test result Normal (applies to non-numeric results) [facility]) ID Date Data Source [id number] [facility] Name Value Range Interpretation Code Description Data Julia rce(s) Supporting Document(s) Phosphate [Moles/volume] in Serum or Plasma 2.9 mg/dL 2.5- 4.9 Normal (applies to non-numeric results) [facility] ) <content>note:<nlbl:demographic_changed> </content>
<content></content> Magnesium [Mass/volume] in Serum or Plasma 1.7 mg/dL 1.8-2.4 Belo w low normal [facility] ([facility]) <content>note:<nlbl:demographic_changed> </content>
<content></content> Sodium [Moles/volume] in Urine Laboratory test result Normal (applies to non- numeric results) [facility]) <content>note:<nlbl:demographic_changed> </content>
<content></content> Creatinine [Mass/volume] in Urine 249.0 mg/dL Normal (applies to non-numeric results) [facility]) <content>note:<nlbl:demographic_changed> </content>
<content></content> ID Date Data Source [id number] 04/11/2020 09:04:00 AM EDT [facility] ([facility]) Name Value Range Interpretation Code Description Data Julia rce(s) Supporting Document(s) Glucose, Fasting 111 mg/dL 70-100 Above high normal M PENDING SALE TO [facility] ([facility]) Creatinine For GFR 0.80 mg/dL 0.55-1.30 Normal (applies to non -numeric results) [facility] ([facility]) Blood Urea Nitrogen 11 mg/dL 7-18 Normal (applies to non-nume zora results) [facility] ([facility]) Glomerular Filtration Rate Laboratory test result Normal (applies to non- numeric results) [facility] ([facility]) <content>Units are mL/min/1.73 m2</content>
<content></content>
<content>Chronic Kidney Disease Staging per NKF:</content>
<content></content>
<content>Stage I & II GFR >=60 Normal to Mildly Decreased</content>
<content>Stage III GFR 30- 59 Moderately Decreased</content>
<content>Stage IV GFR 15-29 Severely Decreased</content>
<content>Stage V GFR <15 Very Little GFR Left</content>
<content>ESRD GFR <15 on RAIL TRACK LAYER</content>
<content></content> Sodium Level 130 meq/L 136-145 Below low normal [facility] ([facility]) Potassium Serum 4.0 meq/L 3.5-5.1 Normal (applies to non-numeric results) [facility] ([facility]) Anion Gap 6 meq/L 8-16 Below low normal [facility] ( [facility]) Carbon Dioxide Level 28 meq/L 21-32 Normal (applies to non-num reynaldo results) [facility] ([facility]) Chloride Level 96 meq/L 98-107 Below low normal [facility] ([facility]) Calcium Level 8.4 mg/dL 8.5-10.1 Below low normal [facility] ([facility]) ID Date Data Source [id number] 04/11/2020 09:04:00 AM EDT [facility] Name Value Range Interpretation Code Description Data Julia rce(s) Supporting Document(s) BG FASTING 111 mg/dL 70-100 H [facility] ID Date Data Source [id number] 04/09/2020 09:33:58 AM EDT [facility] Measurements & CalculationsHeight: 61 inches 154.94 [...] presents for ER follow-up.Pt was seen at [facility] ER 04/05/2020 for ascites. Pt had a [...] during this visit, including review of any fjmo-lms-djlwrje medications, herbal therapies, and/or supplements.Allergy ReviewAllergy List [...] is? GoodAssessment & Plan Problems:Added: Insomnia, unspecified (EZR44-C30.00) Assessment: Instructions: Monitor. Significant life adjustments with [...] Continue current medications.Alcohol abuse, in remission (ICD-305.03) (KBL28-Z73.11) Assessment: Instructions: Continue remaining sober.Patient Instructions/Care Plan: [...] ORAL SPIRONOLACTONE 25 MG ORAL TABLET Qty: [id number] To: SPIRONOLACTONE 50 MG ORAL TABLET-Take 2 tablets po dailyFrom: ORAL LASIX 20 MG ORAL TABLET Qty: [id number] To: FUROSEMIDE 40 MG ORAL TABLET-take 1 tablet po BIDAllergies:No Known Allergies (updated 04/09/2020) Orders:Adult - Ofc Vst, EST, Level III [CPT-[id number]] Follow-Up Return to clinic: in 2 weeks for follow upClinical Visit Summary Declined Name Value Range Interpretation Code Description Data Julia rce(s) Supporting Document(s) ID Date Data Source [id number] 04/05/2020 08:41:00 AM EDT [facility] Name Value Range Interpretation Code Description Data Julia rce(s) Supporting Document(s) HCT 36.8 % 36.0-47.0 N [facility] HGB 13.1 g/dL 12.0-15.5 N [facility] MCH 35.6 G/DL pg 32.0-36.5 [facility] MCHC 36.0 PG % 27.0-33.0 H [facility] PLATELETS 121 10 10*3/mm3 150-450 L [facility] RBC 3.64 10 10*6/mm3 4.00-5.40 L [facility] RDW 14.7 % 11.5-14.5 H [facility] WBC TOTAL 7.7 4.0-10.0 N [facility] ID Date Data Source [id number] 04/05/2020 08:41:00 AM EDT [facility] Name Value Range Interpretation Code Description Data Julia rce(s) Supporting Document(s) BG FASTING 98 mg/dL 70-100 N [facility] ID Date Data Source [id number] 03/27/2020 01:05:02 PM EDT [facility] Measurements & CalculationsHeight: 61 inches (5 [...] been admitted to the hospital? [facility] [place] [facility] admission date reported today: 03/22/2020Have [...] for pain by an urgent care in [place], then over the next few weeks noted abdominal distention. She then went to another urgent care in [place] and was given a fluid pill and another unknown medication. A few weeks went by without i mprovement, so she went to [facility] [facility]. [place] the provider was rude so she left without testing. Then she moved from [facility] to [facility]. She was seen by [facility] outpatient, then was referred to [facility] but she waited a few days. Self presented to [facility] 03/17/2020, then was transferred to [facility] due to ascites. She was admitted to [facility] 03/17/2020-03/22/2020. Pt states she had 7 [...] during this visit, including review of any kszm-chg-flrkzar medications, herbal therapies, and/or supplements.Allergy ReviewAllergy List [...] PoorAssessment & Plan Problems:Added: Tobacco user (ICD-305.1) (GGZ12-C54.200)Alcoholic cirrhosis of liver with ascites (ICD- 571.2) (MMT54-B94.31) Assessment: Instructions: Severe ascites today despite medications. Recommend emergency room evaluation today, patient declines but agrees to report to [facility] ER by 0600 03/28/2020. Advised waiting was not the safest recommendation. Please call an ambulance for ANY change or worsening in symptoms.Edema of lower extremity (ICD-782.3) (DUG25-M21.0) Assessment: Instructions: Secondary to above. No medication adjustments due to immediate need for ER evalation with labs and further treatment.Alcohol abuse, in remission (ICD-305.03) (DVZ88-C77.11) Assessment: Instructions: Will need outpatient treatment, after her medical conditions are more stabilized.Patient Instructions/Care Plan: Alcoholic cirrhosis of liver with ascites: Severe ascites today despite medications. Recommend emergency room evaluation today, patient declines but agrees to report to [facility] ER by 0600 03/28/2020. Advised waiting was [...] M20 20 MEQ ORAL TABLET EXTENDED RELEASELACTULOSE [id number] TABLET DELAYED RELEASELASIX 20 MG ORAL TABLETSPIRONOLACTONE 25 MG ORAL TABLETMUPIROCIN OINTMENTMedication Changes:Added: MUPIROCIN OINTMENT-bidSPIRONOLACTONE 25 MG ORAL TABLET-po dailyLASIX 20 MG ORAL TABLET-po [id number] TABLET DELAYED RELEASE-po bidLACTULOSE SOLUTION-30 ml po bidKLOR-CON M20 20 MEQ ORAL TABLET EXTENDED RELEASE-Take 1 tablet po dailyFOLIC ACID 1 MG ORAL TABLET-po dailyTHIAMINE HCL 100 MG ORAL TABLET-po dailyAllergies:No Known Allergies (updated 03/27/2020) Orders:Adult - Ofc Vst, EST, Level IV [CPT-[id number]] Follow-Up Return to clinic: as needed for follow upAdditional Follow-Up: ER follow-upClinical Visit Summary Completed Name Value Range Interpretation Code Description Data Julia rce(s) Supporting Document(s) ID Date Data Source [id number] 03/22/2020 05:54:00 AM EDT [facility] Name Value Range Interpretation Code Description Data Julia rce(s) Supporting Document(s) Sodium 135 mmol/L 137-145 Below low normal [facility] Potassium 3.5-5.1 Normal (applies to non-numeric resul ts) [facility] Chloride 102 mmol/L 98-112 Normal (applies to non-numeric resul ts) [facility] Carbon Dioxide CO2 22.0-33.0 Normal (applies to non-numer ic results) [facility] Anion Gap 4.0-11.0 Normal (applies to non-numeric resul ts) [facility] BUN 9 mg/dL 7-17 Normal (applies to non-numeric resul ts) [facility] Creatinine 0.70-1.20 Below low normal [facility] GFR >60 Normal (applies to non-numeric results) [facility] Result based on MDRD formula. Glucose Level 86 mg/dL 74-99 Normal (applies to non-numeric re sults) [facility] The reference range is only applicable w hen fasting. Calcium-Uncorrected 8.4-10.2 Below low normal [facility] Corrected Calcium 8.4-10.2 Normal (applies to non-numeri c results) [facility] Bilirubin,Total 0.2-1.3 Above high normal [facility] SGOT(AST) 91 U/L 14-36 Above high normal [facility] SGPT(ALT) 32 U/L 9-52 Normal (applies to non-numeric resul ts) [facility] Alkaline Phosphatase 120 U/L 38-126 Normal (applies to non-num reynaldo results) [facility] can increase Alkaline Phosp le vels up to 2 times the normal adult value. Normal values for children and adolescents are 2 to 3 times the normal adult value. Total Protein 6.3-8.2 Normal (applies to non-numeric re sults) [facility] Albumin 3.5-5.0 Below low normal [facility] ID Date Data Source [id number] 03/22/2020 05:54:00 AM EDT [facility] Name Value Range Interpretation Code Description Data Julia rce(s) Supporting Document(s) Bilirubin,Direct 0.0-0.3 Above high normal [facility] ID Date Data Source [id number] 03/22/2020 05:22:00 AM EDT [facility] Name Value Range Interpretation Code Description Data Julia rce(s) Supporting Document(s) White Blood Count 4.8-10.8 Normal (applies to non-numeri c results) [facility] Red Blood Count 3.68-5.22 Below low normal [facility] Hemoglobin 11.2-15.7 Normal (applies to non-numeric resul ts) [facility] Hematocrit 34.1-44.9 Normal (applies to non-numeric resul ts) [facility] Mean Corpuscular Volume 81-99 Above high normal [facility] Mean Corpuscular Hemoglobin 27.0-33.0 Above high normal [facility] Mean Corpuscular HGB Conc 32.0-36.0 Normal (applies to no n-numeric results) [facility] Red Cell Distribution Width 11.5-14.5 Above high normal [facility] Platelet Count 99 X10 3/uL 130-450 Below low normal [facility] Mean Platelet Volume 9.5-12.7 Normal (applies to non-num reynaldo results) [facility] Imm Grans% (AUTO) 0 % 0-2 Normal (applies to non-numeri c results) [facility] Neutrophils % (AUTO) 64 % 40-75 Normal (applies to non-num reynaldo results) [facility] Lymphocytes % (AUTO) 19 % 21-46 Below low normal [facility] Monocytes % (AUTO) 14 % 5-12 Above high normal [facility] Eosinophils % (AUTO) 3 % 1-5 Normal (applies to non-num reynaldo results) [facility] Basophils % (AUTO) 1 % 0-1 Normal (applies to non-numer ic results) [facility] Imm Grans# (AUTO) 0.0-0.5 Normal (applies to non-numeri c results) [facility] Neutrophils # (AUTO) 1.5-8.1 Normal (applies to non-num reynaldo results) [facility] Lymphocytes # (AUTO) 1.0-3.1 Normal (applies to non-num reynaldo results) [facility] Monocytes # (AUTO) 0.2-1.3 Normal (applies to non-numer ic results) [facility] Eosinophils# (AUTO) 0.0-0.5 Normal (applies to non-nume zora results) [facility] Basophils # (AUTO) 0.0-0.1 Normal (applies to non-numer ic results) [facility] ID Date Data Source [id number] 03/21/2020 10:18:00 AM EDT [facility] Name Value Range Interpretation Code Description Data Julia rce(s) Supporting Document(s) Sodium 134 mmol/L 137-145 Below low normal [facility] Potassium 3.5-5.1 Normal (applies to non-numeric resul ts) [facility] Chloride 101 mmol/L 98-112 Normal (applies to non-numeric resul ts) [facility] Carbon Dioxide CO2 22.0-33.0 Normal (applies to non-numer ic results) [facility] Anion Gap 4.0-11.0 Below low normal [facility] BUN 9 mg/dL 7-17 Normal (applies to non-numeric resul ts) [facility] Creatinine 0.70-1.20 Below low normal [facility] GFR >60 Normal (applies to non-numeric results) [facility] Result based on MDRD formula. Glucose Level 92 mg/dL 74-99 Normal (applies to non-numeric re sults) [facility] The reference range is only applicable w hen fasting. Calcium-Uncorrected 8.4-10.2 Below low normal [facility] Corrected Calcium 8.4-10.2 Normal (applies to non-numeri c results) [facility] Bilirubin,Total 0.2-1.3 Above high normal [facility] SGOT(AST) 78 U/L 14-36 Above high normal [facility] SGPT(ALT) 24 U/L 9-52 Normal (applies to non-numeric resul ts) [facility] Alkaline Phosphatase 108 U/L 38-126 Normal (applies to non-num reynaldo results) [facility] can increase Alkaline Phosp le vels up to 2 times the normal adult value. Normal values for children and adolescents are 2 to 3 times the normal adult value. Total Protein 6.3-8.2 Below low normal [facility] Albumin 3.5-5.0 Below low normal [facility] ID Date Data Source [id number] 03/21/2020 10:18:00 AM EDT [facility] Name Value Range Interpretation Code Description Data Julia rce(s) Supporting Document(s) Bilirubin,Direct 0.0-0.3 Above high normal [facility] ID Date Data Source [id number] 03/21/2020 09:37:00 AM EDT [facility] Name Value Range Interpretation Code Description Data Julia rce(s) Supporting Document(s) White Blood Count 4.8-10.8 Normal (applies to non-numeri c results) [facility] Red Blood Count 3.68-5.22 Below low normal [facility] Hemoglobin 11.2-15.7 Normal (applies to non-numeric resul ts) [facility] Hematocrit 34.1-44.9 Below low normal [facility] Mean Corpuscular Volume 81-99 Above high normal [facility] Mean Corpuscular Hemoglobin 27.0-33.0 Above high normal [facility] Mean Corpuscular HGB Conc 32.0-36.0 Normal (applies to no n-numeric results) [facility] Red Cell Distribution Width 11.5-14.5 Above high normal [facility] Platelet Count 94 X10 3/uL 130-450 Below low normal [facility] Mean Platelet Volume 9.5-12.7 Normal (applies to non-num reynaldo results) [facility] Imm Grans% (AUTO) 1 % 0-2 Normal (applies to non-numeri c results) [facility] Neutrophils % (AUTO) 66 % 40-75 Normal (applies to non-num reynaldo results) [facility] Lymphocytes % (AUTO) 16 % 21-46 Below low normal [facility] Monocytes % (AUTO) 15 % 5-12 Above high normal [facility] Eosinophils % (AUTO) 2 % 1-5 Normal (applies to non-num reynaldo results) [facility] Basophils % (AUTO) 1 % 0-1 Normal (applies to non-numer ic results) [facility] Imm Grans# (AUTO) 0.0-0.5 Normal (applies to non-numeri c results) [facility] Neutrophils # (AUTO) 1.5-8.1 Normal (applies to non-num reynaldo results) [facility] Lymphocytes # (AUTO) 1.0-3.1 Normal (applies to non-num reynaldo results) [facility] Monocytes # (AUTO) 0.2-1.3 Normal (applies to non-numer ic results) [facility] Eosinophils# (AUTO) 0.0-0.5 Normal (applies to non-nume zora results) [facility] Basophils # (AUTO) 0.0-0.1 Normal (applies to non-numer ic results) [facility] ID Date Data Source [id number] 03/20/2020 09:34:00 AM EDT [facility] Name Value Range Interpretation Code Description Data Julia rce(s) Supporting Document(s) Sodium 137 mmol/L 137-145 Normal (applies to non-numeric resul ts) [facility] Potassium 3.5-5.1 Normal (applies to non-numeric resul ts) [facility] Chloride 103 mmol/L 98-112 Normal (applies to non-numeric resul ts) [facility] Carbon Dioxide CO2 22.0-33.0 Normal (applies to non-numer ic results) [facility] Anion Gap 4.0-11.0 Normal (applies to non-numeric resul ts) [facility] BUN 10 mg/dL 7-17 Normal (applies to non-numeric resul ts) [facility] Creatinine 0.70-1.20 Below low normal [facility] GFR >60 Normal (applies to non-numeric results) [facility] Result based on MDRD formula. Glucose Level 110 mg/dL 74-99 Above high normal [facility] The reference range is only applicable w hen fasting. Calcium-Uncorrected 8.4-10.2 Below low normal [facility] Corrected Calcium 8.4-10.2 Normal (applies to non-numeri c results) [facility] Bilirubin,Total 0.2-1.3 Above high normal [facility] SGOT(AST) 58 U/L 14-36 Above high normal [facility] SGPT(ALT) 18 U/L 9-52 Normal (applies to non-numeric resul ts) [facility] Alkaline Phosphatase 99 U/L 38-126 Normal (applies to non-num reynaldo results) [facility] can increase Alkaline Phosp le vels up to 2 times the normal adult value. Normal values for children and adolescents are 2 to 3 times the normal adult value. Total Protein 6.3-8.2 Below low normal [facility] Albumin 3.5-5.0 Below low normal [facility] Hospital ID Date Data Source [id number] 03/20/2020 09:34:00 AM EDT [facility] Name Value Range Interpretation Code Description Data Julia rce(s) Supporting Document(s) Bilirubin,Direct 0.0-0.3 Above high normal [facility] ID Date Data Source [id number] 03/20/2020 09:20:00 AM T [facility] Name Value Range Interpretation Code Description Data Julia rce(s) Supporting Document(s) Ammonia 39 umol/L 11-32 Above high normal [facility] ID Date Data Source [id number] 03/20/2020 09:06:00 AM EDT [facility] Name Value Range Interpretation Code Description Data Julia rce(s) Supporting Document(s) White Blood Count 4.8-10.8 Normal (applies to non-numeri c results) [facility] Red Blood Count 3.68-5.22 Below low normal [facility] Hemoglobin 11.2-15.7 Below low normal [facility] Hematocrit 34.1-44.9 Below low normal [facility] Mean Corpuscular Volume 81-99 Above high normal [facility] Mean Corpuscular Hemoglobin 27.0-33.0 Above high normal [facility] Mean Corpuscular HGB Conc 32.0-36.0 Normal (applies to no n-numeric results) [facility] Red Cell Distribution Width 11.5-14.5 Above high normal [facility] Platelet Count 86 X10 3/uL 130-450 Below low normal [facility] Mean Platelet Volume 9.5-12.7 Normal (applies to non-num reynaldo results) [facility] Imm Grans% (AUTO) 0 % 0-2 Normal (applies to non-numeri c results) [facility] Neutrophils % (AUTO) 66 % 40-75 Normal (applies to non-num reynaldo results) [facility] Lymphocytes % (AUTO) 17 % 21-46 Below low normal [facility] Monocytes % (AUTO) 14 % 5-12 Above high normal [facility] Eosinophils % (AUTO) 2 % 1-5 Normal (applies to non-num reynaldo results) [facility] Basophils % (AUTO) 1 % 0-1 Normal (applies to non-numer ic results) [facility] Imm Grans# (AUTO) 0.0-0.5 Normal (applies to non-numeri c results) [facility] Neutrophils # (AUTO) 1.5-8.1 Normal (applies to non-num reynaldo results) [facility] Lymphocytes # (AUTO) 1.0-3.1 Normal (applies to non-num reynaldo results) [facility] Monocytes # (AUTO) 0.2-1.3 Normal (applies to non-numer ic results) [facility] Eosinophils# (AUTO) 0.0-0.5 Normal (applies to non-nume zora results) [facility] Basophils # (AUTO) 0.0-0.1 Normal (applies to non-numer ic results) [facility] ID Date Data Source [id number] 03/19/2020 08:03:00 AM EDT [facility] Hospital Name: SANA SU Pavan : 1960 A ge/Sex: 60F Attending Physician: Soniya Cheng MD [facility] Rec #: [id number] Admission Date: 03/17/20 Room #: 304-01 Admitting Physician: Soniya Cheng MD Report Number: [id number] _ cc: Send Report To: Report Status [...] andlactic acid, however. Dictated Date/Time/Job.No.: 03/19/20 0340 [id number] REPORT SIGNATURE ON FILE Dictated By: Soniya Cheng MD <Electronically signed by Soniya Cheng MD> 03/20/20 0238 Transcribed Date/Time: 03/19/20 0803/JUSTIN Name Value Range Interpretation Code Description Data Julia rce(s) Supporting Document(s) ID Date Data Source [id number] 03/19/2020 05:33:00 AM EDT [facility] Name: SANA US : 1960 A ge/Sex: 60F Attending Physician: Soniya Cheng MD Med Rec #: [id number] Admission Date: 03/17/20 Room #: 304-01 Admitting Physician: Soniya Cheng MD Report Number: [id number] _ cc: Send Report To: Report Status [...] will need to see as an outpatient clinical assessment manager. REPORT SIGNATURE ON FILE Dictated By: Polina Chiu MD <Electronically signed by Marcela Chiu MD> 03/19/20 1737 Dictation Date/Time: 03/18/20 8551 Transcribed Date/Time: 03/19/20 0533/JUANA Name Value Range Interpretation Code Description Data Julia rce(s) Supporting Document(s) ID Date Data Source [id number] 03/19/2020 08:30:00 AM EDT [facility] Name: SANA SU : 1960 A ge/Sex: 60F Attending Physician: Soniya Cheng MD Med Rec #: [id number] Admission Date: 03/17/20 Room #: [facility] Admitting Physician: Soniya Cheng MD Report Number: [id number] _ cc: PCP None Send Report To: [...] rce(s) Supporting Document(s) ID Date Data Source [id number] 03/19/2020 06:26:00 AM EDT [facility] Name Value Range Interpretation Code Description Data Julia rce(s) Supporting Document(s) Sodium 138 mmol/L 137-145 Normal (applies to non-numeric resul ts) [facility] Potassium 3.5-5.1 Below low normal [facility] Chloride 102 mmol/L 98-112 Normal (applies to non-numeric resul ts) [facility] Carbon Dioxide CO2 22.0-33.0 Normal (applies to non-numer ic results) [facility] Anion Gap 4.0-11.0 Normal (applies to non-numeric resul ts) [facility] BUN 9 mg/dL 7-17 Normal (applies to non-numeric resul ts) [facility] Creatinine 0.70-1.20 Below low normal [facility] GFR >60 Normal (applies to non-numeric results) [facility] Result based on MDRD formula. Glucose Level 87 mg/dL 74-99 Normal (applies to non-numeric re sults) [facility] The reference range is only applicable w hen fasting. Calcium-Uncorrected 8.4-10.2 Below low normal [facility] Corrected Calcium 8.4-10.2 Normal (applies to non-numeri c results) [facility] Bilirubin,Total 0.2-1.3 Above high normal [facility] SGOT(AST) 51 U/L 14-36 Above high normal [facility] SGPT(ALT) 16 U/L 9-52 Normal (applies to non-numeric resul ts) [facility] Alkaline Phosphatase 90 U/L 38-126 Normal (applies to non-num reynaldo results) [facility] can increase Alkaline Phosp le vels up to 2 times the normal adult value. Normal values for children and adolescents are 2 to 3 times the normal adult value. Total Protein 6.3-8.2 Below low normal [facility] Albumin 3.5-5.0 Below low normal [facility] ID Date Data Source [id number] 03/19/2020 06:26:00 AM EDT [facility] Name Value Range Interpretation Code Description Data Julia rce(s) Supporting Document(s) Bilirubin,Direct 0.0-0.3 Above high normal [facility] ID Date Data Source [id number] 03/19/2020 05:43:00 AM EDT [facility] Name Value Range Interpretation Code Description Data Julia rce(s) Supporting Document(s) Ammonia 68 umol/L 11-32 Above high normal [facility] ID Date Data Source [id number] 03/19/2020 05:21:00 AM EDT [facility] Name Value Range Interpretation Code Description Data Julia rce(s) Supporting Document(s) White Blood Count 4.8-10.8 Normal (applies to non-numeri c results) [facility] Red Blood Count 3.68-5.22 Below low normal [facility] Hemoglobin 11.2-15.7 Below low normal [facility] Hematocrit 34.1-44.9 Below low normal [facility] Mean Corpuscular Volume 81-99 Above high normal [facility] Mean Corpuscular Hemoglobin 27.0-33.0 Above high normal [facility] Mean Corpuscular HGB Conc 32.0-36.0 Normal (applies to no n-numeric results) [facility] Red Cell Distribution Width 11.5-14.5 Above high normal [facility] Platelet Count 77 X10 3/uL 130-450 Below low normal [facility] Mean Platelet Volume 9.5-12.7 Normal (applies to non-num reynaldo results) [facility] Imm Grans% (AUTO) 0 % 0-2 Normal (applies to non-numeri c results) [facility] Neutrophils % (AUTO) 64 % 40-75 Normal (applies to non-num reynaldo results) [facility] Lymphocytes % (AUTO) 19 % 21-46 Below low normal [facility] Monocytes % (AUTO) 16 % 5-12 Above high normal [facility] Eosinophils % (AUTO) 2 % 1-5 Normal (applies to non-num reynaldo results) [facility] Basophils % (AUTO) 1 % 0-1 Normal (applies to non-numer ic results) [facility] Imm Grans# (AUTO) 0.0-0.5 Normal (applies to non-numeri c results) [facility] Neutrophils # (AUTO) 1.5-8.1 Normal (applies to non-num reynaldo results) [facility] Lymphocytes # (AUTO) 1.0-3.1 Normal (applies to non-num reynaldo results) [facility] Monocytes # (AUTO) 0.2-1.3 Normal (applies to non-numer ic results) [facility] Eosinophils# (AUTO) 0.0-0.5 Normal (applies to non-nume zora results) [facility] Basophils # (AUTO) 0.0-0.1 Normal (applies to non-numer ic results) [facility] ID Date Data Source [id number] 03/19/2020 02:05:00 AM EDT [facility] Name Value Range Interpretation Code Description Data Julia rce(s) Supporting Document(s) Procalcitonin 0.00-0.24 Normal (applies to non-numeric re sults) [facility] 1.Risk of Progression to severe sepsis [...] therapy is warranted. ID Date Data Source [id number] 03/19/2020 01:56:00 AM EDT [facility] 3 hour post Lactic if elevated? Y Name Value Range Interpretation Code Description Data Julia rce(s) Supporting Document(s) Lactic Acid 0.4-2.0 Normal (applies to non-numeric resu lts) [facility] ID Date Data Source [id number] 03/19/2020 01:53:00 AM EDT [facility] Name Value Range Interpretation Code Description Data Julia rce(s) Supporting Document(s) Sodium 137 mmol/L 137-145 Normal (applies to non-numeric resul ts) [facility] Potassium 3.5-5.1 Below low normal [facility] Chloride 101 mmol/L 98-112 Normal (applies to non-numeric resul ts) [facility] Carbon Dioxide CO2 22.0-33.0 Normal (applies to non-numer ic results) [facility] Anion Gap 4.0-11.0 Normal (applies to non-numeric resul ts) [facility] BUN 9 mg/dL 7-17 Normal (applies to non-numeric resul ts) [facility] Creatinine 0.70-1.20 Below low normal [facility] GFR >60 Normal (applies to non-numeric results) [facility] Result based on MDRD formula. Glucose Level 108 mg/dL 74-99 Above high normal [facility] The reference range is only applicable w hen fasting. Calcium-Uncorrected 8.4-10.2 Below low normal [facility] Corrected Calcium 8.4-10.2 Normal (applies to non-numeri c results) [facility] ID Date Data Source [id number] 03/19/2020 01:30:00 AM EDT [facility] Name Value Range Interpretation Code Description Data Julia rce(s) Supporting Document(s) White Blood Count 4.8-10.8 Normal (applies to non-numeri c results) [facility] Red Blood Count 3.68-5.22 Below low normal [facility] Hemoglobin 11.2-15.7 Below low normal [facility] Hematocrit 34.1-44.9 Below low normal [facility] Mean Corpuscular Volume 81-99 Above high normal [facility] Mean Corpuscular Hemoglobin 27.0-33.0 Above high normal [facility] Mean Corpuscular HGB Conc 32.0-36.0 Normal (applies to no n-numeric results) [facility] Red Cell Distribution Width 11.5-14.5 Above high normal [facility] Platelet Count 76 X10 3/uL 130-450 Below low normal [facility] Mean Platelet Volume 9.5-12.7 Normal (applies to non-num reynaldo results) [facility] Imm Grans% (AUTO) 1 % 0-2 Normal (applies to non-numeri c results) [facility] Neutrophils % (AUTO) 66 % 40-75 Normal (applies to non-num reynaldo results) [facility] Lymphocytes % (AUTO) 16 % 21-46 Below low normal [facility] Monocytes % (AUTO) 15 % 5-12 Above high normal [facility] Eosinophils % (AUTO) 2 % 1-5 Normal (applies to non-num reynaldo results) [facility] Basophils % (AUTO) 1 % 0-1 Normal (applies to non-numer ic results) [facility] Imm Grans# (AUTO) 0.0-0.5 Normal (applies to non-numeri c results) [facility] Neutrophils # (AUTO) 1.5-8.1 Normal (applies to non-num reynaldo results) [facility] Lymphocytes # (AUTO) 1.0-3.1 Normal (applies to non-num reynaldo results) [facility] Monocytes # (AUTO) 0.2-1.3 Normal (applies to non-numer ic results) [facility] Eosinophils# (AUTO) 0.0-0.5 Normal (applies to non-nume zora results) [facility] Basophils # (AUTO) 0.0-0.1 Normal (applies to non-numer ic results) [facility] ID Date Data Source [id number] 03/18/2020 11:14:00 AM EDT [facility] Hospital Name: SANA SU : 1960 A ge/Sex: 60F Attending Physician: Soniya Cheng MD Med Rec #: [id number] Admission Date: 03/17/20 Room #: 304-01 Admitting Physician: Soniya Cheng MD Report Number: [id number] _ cc: PCP None Send Report To: Report Status - Signed HISTORY AND PHYSICAL Date of Admission: 03/17/20 CHIEF COMPLAINT: A 60-ear-old female who originally presented to [facility] Emergency Room, transferred to our facility for further management of severe ascites and decompensated liver disease. HISTORY OF PRESENT ILLNESS: Sana who does not have a primary care physician recently moved from [place] where she had lived most of her life. The patientmoved to [place] within the last month after being quarantined with her daughter in [place], [place] from the previous two and half months. She did not think that she had any major medical problems until approximately three months ago. 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 She had injured her right knee, which had been previously fractures many years ago. Thepatient was taken Ibuprofen and at that time noticed that she began having increased swelling of her lower extremities and her abdomen. To her this appearto accumulate a short period of time. She had seen someone in Urgent Care in the [place] area who had prescribed; spironolactone and furosemide. She had taken this initially which had been helpful, however, stopped in when she began experiencing weakness and muscle aches and cramps. She then resumed it, althoughit did not seem to be as affective. She did go also to [facility], Emergency Room on 03-01-2020 complaining of [...] officially moved in with her mother in [place]. Arrived to the ER in [place] as she wanted to get help with [...] it isimproving. The patient was seen in [place] by YARELI Marcos. Her lab work there, [...] Case was discussed with the Hospitalist at [facility]. She was transferred to our facility [...] [facility]. She had no respiratory [...] six years ago. She worked at a [employer] at a [employer] until earlier this year. She had lived with her daughter in [place] for two and half months under quarantine when her restaurant closed. She [facility] She now [place] [facility] [place] [facility] [place] just recently moved within the last month. [...] both sides. LABORATORY AND X-RAY DATA: From [place] as mentioned above. ASSESSMENT: A 60-year-old female [...] more then two days [facility]. 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 The patient has hyperbilirubinemia and elevated AST consistentwith alcohol injury. The patient is not tender over her liver, was considering alcohol hepatitis. Her bilirubin in March 02 in [place] was also elevated at 5.7. PLAN: The [...] of magnesium as she as hypomagnesemic in [place] and oral potassium. We will also start [...] need a new primary physician and a blender conveyor operator to further monitor her. I did order a nicotine patch as well. TIME SPENT: 75 minutes was spent in total time with over half the time in [id number] time. ADDENDUM: The patient also has an [...] rce(s) Supporting Document(s) ID Date Data Source [id number] 03/18/2020 05:48:00 PM EDT [facility] Name Value Range Interpretation Code Description Data [facility] rce(s) Supporting Document(s) Sodium 135 mmol/L 137-145 Below low normal [facility] Potassium 3.5-5.1 Normal (applies to non-numeric resul ts) [facility] Chloride 99 mmol/L 98-112 Normal (applies to non-numeric resul ts) [facility] Carbon Dioxide CO2 22.0-33.0 Normal (applies to non-numer ic results) [facility] Anion Gap 4.0-11.0 Normal (applies to non-numeric resul ts) [facility] BUN 9 mg/dL 7-17 Normal (applies to non-numeric resul ts) [facility] Creatinine 0.70-1.20 Below low normal [facility] GFR >60 Normal (applies to non-numeric results) [facility] Result based on MDRD formula. Glucose Level 107 mg/dL 74-99 Above high normal [facility] The reference range is only applicable w hen fasting. Calcium-Uncorrected 8.4-10.2 Below low normal [facility] Corrected Calcium 8.4-10.2 Normal (applies to non-numeri c results) [facility] Bilirubin,Total 0.2-1.3 Above high normal [facility] SGOT(AST) 74 U/L 14-36 Above high normal [facility] SGPT(ALT) 23 U/L 9-52 Normal (applies to non-numeric resul ts) [facility] Alkaline Phosphatase 130 U/L 38-126 Above high normal [facility] can increase Alkaline Phosp le vels up to 2 times the normal adult value. Normal values for children and adolescents are 2 to 3 times the normal adult value. Total Protein 6.3-8.2 Normal (applies to non-numeric re sults) [facility] Albumin 3.5-5.0 Below low normal [facility] ID Date Data Source [id number] 03/18/2020 05:48:00 PM EDT [facility] Name Value Range Interpretation Code Description Data Julia rce(s) Supporting Document(s) Bilirubin,Direct 0.0-0.3 Above high normal [facility] ID Date Data Source [id number] 03/20/2020 12:36:00 PM EDT [facility] Sp johnson Garduno MD, Director [id number] [place] [address] [place] [address] Name: SANA SU Rec #: [id number]: 1960 Age/Sex: 60/F Attending Provider: Soniya Cheng MD Date of Service: 03/17/20 Location: [id number] CC: MD Bruce Ross PA [facility] None Polina Chiu MD Specimen: [id number] Received: [id number] Status: RAJ Perez Num: [id number] Collected: Sp Type: SURGICAL Subm Doc: Soniya [...] rce(s) Supporting Document(s) ID Date Data Source [id number] 03/20/2020 12:01:00 PM EDT [facility] Name: SANA SU : 1960 A ge/Sex: 60F Ordering Provider: Polina Chiu MD Med Rec #: [id number] Reg Status: ADM IN Room #: 312-1 Date of Service: 03/18/20 Report Number: [id number] cc:Polina Chiu MD; PCP None Send Report To: [id number] US/US Paracentesis Reason for exam: fluid build up FINDINGS: Ultrasound guidance was provided to Dr. Chiu for performing paracentesis at bedside. REPORT SIGNATURE ON FILE Reported By: Luis Haddad MD <Electronically signed by Severo Haddad MD> 03/21/20 0942 Dictation Date/Time: 03/20/20 2737 Transcribed Date/Time: 03/20/20 1201 Mailroom Personnel: DANTE Name Value Range Interpretation Code Description Data Julia rce(s) Supporting Document(s) ID Date Data Source [id number] 03/19/2020 02:20:00 PM EDT [facility] Name Value Range Interpretation Code Description Data Julia rce(s) Supporting Document(s) Volume,(Barbi Fluid) 2 mL Normal (applies to non-nume zora results) [facility] ID Date Data Source [id number] 03/19/2020 02:20:00 PM EDT [facility] Name Value Range Interpretation Code Description Data Julia rce(s) Supporting Document(s) Appearance,(Barbi Fluid) Normal (applies to non- numeric results) [facility] Slide reviewed by Pathologist for conf irmation. 03/19/20 DR GARDUNO. This is a Corrected Result --- 03/19/20 1420 --- Appear(PeriFld) previously reported as: Clear ID Date Data Source [id number] 03/19/2020 02:20:00 PM EDT [facility] Name Value Range Interpretation Code Description Data Julia rce(s) Supporting Document(s) Color,(Barbi Fld) Normal (applies to non-numeric results) [facility] ID Date Data Source [id number] 03/19/2020 02:20:00 PM [facility] Name Value Range Interpretation Code Description Data Julia rce(s) Supporting Document(s) RBC (Barbi Fld) 1000 uL Normal (applies to non-numeric r esults) [facility] No established reference values ID Date Data Source [id number] 03/19/2020 02:20:00 PM T [facility] Name Value Range Interpretation Code Description Data Julia rce(s) Supporting Document(s) WBC (Barbi Fld) 97 uL Normal (applies to non-numeric r esults) [facility] No established reference values ID Date Data Source [id number] 03/19/2020 02:20:00 PM [facility] Name Value Range Interpretation Code Description Data Julia rce(s) Supporting Document(s) Mononuclear %(Barbi Fld) Normal (applies to non- numeric results) [facility] No established reference values ID Date Data Source [id number] 03/19/2020 02:20:00 PM EDT [facility] Name Value Range Interpretation Code Description Data Julia rce(s) Supporting Document(s) Polymononuclear %(Barbi Fld) Normal (applies to non-numeric results) [facility] No established reference values ID Date Data Source [id number] 03/19/2020 02:20:00 PM EDT [facility] Name Value Range Interpretation Code Description Data Julia rce(s) Supporting Document(s) Mononuclear #(Barbi Fld) 66 uL Normal (applies to non- numeric results) [facility] No established reference values ID Date Data Source [id number] 03/19/2020 02:20:00 PM [facility] Name Value Range Interpretation Code Description Data Julia rce(s) Supporting Document(s) Polymononuclear #(Barbi Fld) 31 uL Normal (applies to non-numeric results) [facility] No established reference values ID Date Data Source [id number] [facility] Name Value [facility] Interpretation Code Description Data Julia rce(s) Supporting Document(s) Glucose,(Barbi Fld) 120 mg/dL Normal (applies to non-numer ic results) [facility] No established reference values ID Date Data Source [id number] 03/19/2020 02:20:00 PM EDT [facility] Name Value Range Interpretation Code Description Data Julia rce(s) Supporting Document(s) LDH,(Barbi Fld) 46 U/L Normal (applies to non-numeric r esults) [facility] No established reference values ID Date Data Source [id number] 03/19/2020 02:20:00 PM [facility] Name Value Range Interpretation Code Description Data Julia rce(s) Supporting Document(s) Total Protein,(Barbi Fld) Normal (applies to non -numeric results) [facility] No established reference values ID Date Data Source [id number] 03/19/2020 02:20:00 PM EDT [facility] Name Value Range Interpretation Code Description Data Julia rce(s) Supporting Document(s) Albumin (Barbi Fld) Normal (applies to non-numer ic results) [facility] No established reference values ID Date Data Source [id number] 03/20/2020 04:52:00 PM EDT [facility] Name Value Range Interpretation Code Description Data Julia rce(s) Supporting Document(s) Amylase,Body Fluid result 50 U/L Normal (applies to no n-numeric results) [facility] REFERENCE VALUE------ See Comment ADDITIONAL INFORMATION [...] ratio <1.0. All other fluids refer to [email or web address] for further interpretive information. This test has been modified from the wood [employer] wood [employer] labourer's instructions. Its performance characteristics were determined by [facility] in a manner consistent with CLIA requirements. This test has not been cleared or approved by the U.S. Food and Drug Administration. Amylase,Body Fluid Type Normal (applies to non- numeric results) [facility] Test Performed by: [address] [address] [employer] Operator: Daniel Degroot M.D. Ph.D.; CLIA# [id number] ID Date Data Source [id number] 03/18/2020 07:14:00 AM EDT [facility] Name Value Range Interpretation Code Description Data Julia rce(s) Supporting Document(s) Hep C Ab-T Test Nonreactive Normal (applies to non-numeric results) [facility] ID Date Data Source [id number] 03/18/2020 07:14:00 AM EDT [facility] Name Value Range Interpretation Code Description Data Julia rce(s) Supporting Document(s) Hep Bs Ag Result T-Test Nonreactive Normal (applies to non -numeric results) [facility] ID Date Data Source [id number] 03/18/2020 07:14:00 AM EDT [facility] Name Value Range Interpretation Code Description Data Julia rce(s) Supporting Document(s) Hep Bs Ab Numeric result Normal (applies to non -numeric results) [facility] Reference Value Protected Immunity: >10 mIU/mL Non-Immunity : <10 mIU/mL Hep Bs Ab result T-Test La [facility] Reference Value Protected Immunity: Re active Non-Immunity : Nonreactive ID Date Data Source [id number] 03/18/2020 06:16:00 AM EDT [facility] Name Value Range Interpretation Code Description Data Julia rce(s) Supporting Document(s) Sodium 134 mmol/L 137-145 Below low normal [facility] Potassium 3.5-5.1 Normal (applies to non-numeric resul ts) [facility] Chloride 100 mmol/L 98-112 Normal (applies to non-numeric resul ts) [facility] Carbon Dioxide CO2 22.0-33.0 Normal (applies to non-numer ic results) [facility] Anion Gap 4.0-11.0 Normal (applies to non-numeric resul ts) [facility] BUN 8 mg/dL 7-17 Normal (applies to non-numeric resul ts) [facility] Creatinine 0.70-1.20 Below low normal [facility] GFR >60 Normal (applies to non-numeric results) [facility] Result based on MDRD formula. Glucose Level 98 mg/dL 74-99 Normal (applies to non-numeric re sults) [facility] The reference range is only applicable w hen fasting. Calcium-Uncorrected 8.4-10.2 Below low normal [facility] Corrected Calcium 8.4-10.2 Normal (applies to non-numeri c results) [facility] Bilirubin,Total 0.2-1.3 Above high normal [facility] SGOT(AST) 79 U/L 14-36 Above high normal [facility] SGPT(ALT) 22 U/L 9-52 Normal (applies to non-numeric resul ts) [facility] Alkaline Phosphatase 138 U/L 38-126 Above high normal [facility] can increase Alkaline Phosp le vels up to 2 times the normal adult value. Normal values for children and adolescents are 2 to 3 times the normal adult value. Total Protein 6.3-8.2 Normal (applies to non-numeric re sults) [facility] Albumin 3.5-5.0 Below low normal [facility] ID Date Data Source [id number] 03/18/2020 06:16:00 AM EDT [facility] Name Value Range Interpretation Code Description Data Julia rce(s) Supporting Document(s) Magnesium 1.80-2.40 Normal (applies to non-numeric resul ts) [facility] ID Date Data Source [id number] 03/18/2020 06:16:00 AM T [facility] Name Value Range Interpretation Code Description Data Julia rce(s) Supporting Document(s) Bilirubin,Direct 0.0-0.3 Above high normal [facility] ID Date Data Source [id number] 03/18/2020 05:30:00 AM EDT [facility] Name Value Range Interpretation Code Description Data Julia rce(s) Supporting Document(s) White Blood Count 4.8-10.8 Normal (applies to non-numeri c results) [facility] Red Blood Count 3.68-5.22 Below low normal [facility] Hemoglobin 11.2-15.7 Normal (applies to non-numeric resul ts) [facility] Hematocrit 34.1-44.9 Below low normal [facility] Mean Corpuscular Volume 81-99 Above high normal [facility] Mean Corpuscular Hemoglobin 27.0-33.0 Above high normal [facility] Mean Corpuscular HGB Conc 32.0-36.0 Normal (applies to no n-numeric results) [facility] Red Cell Distribution Width 11.5-14.5 Above high normal [facility] Platelet Count 93 X10 3/uL 130-450 Below low normal [facility] Mean Platelet Volume 9.5-12.7 Normal (applies to non-num reynaldo results) [facility] Imm Grans% (AUTO) 0 % 0-2 Normal (applies to non-numeri c results) [facility] Neutrophils % (AUTO) 66 % 40-75 Normal (applies to non-num reynaldo results) [facility] Lymphocytes % (AUTO) 16 % 21-46 Below low normal [facility] Monocytes % (AUTO) 15 % 5-12 Above high normal [facility] Eosinophils % (AUTO) 2 % 1-5 Normal (applies to non-num reynaldo results) [facility] Basophils % (AUTO) 1 % 0-1 Normal (applies to non-numer ic results) [facility] Imm Grans# (AUTO) 0.0-0.5 Normal (applies to non-numeri c results) [facility] Neutrophils # (AUTO) 1.5-8.1 Normal (applies to non-num reynaldo results) [facility] Lymphocytes # (AUTO) 1.0-3.1 Normal (applies to non-num reynaldo results) [facility] Monocytes # (AUTO) 0.2-1.3 Normal (applies to non-numer ic results) [facility] Eosinophils# (AUTO) 0.0-0.5 Normal (applies to non-nume zora results) [facility] Basophils # (AUTO) 0.0-0.1 Normal (applies to non-numer ic results) [facility] ID Date Data Source [id number] 03/20/2020 11:50:00 AM EDT [facility] [place] Garduno MD, Director [address] [place] [address] [place] [address] Name: SANA SU [facility] Rec #: [id number]: 1960 Age/Sex: 60/F Attending Provider: Soniya Cheng MD Date of Service: 03/17/20 [place] [facility] [place] MD Bruce Ross PA PCP None Polina Chiu MD Specimen: [id number] Received: [id number] Status: RAJ Perez Num: [id number] Collected: [id number] Type: [place] Subm Doc: Soniya [...] rce(s) Supporting Document(s) ID Date Data Source [id number] [facility]: Nurse Initials: PASQUALE Time Collected: 1800 Name Value Range Interpretation Code Description Data Julia rce(s) Supporting Document(s) Color,Urine Colorl-Dk Y Normal (applies to non-numeric res ults) [facility] Clarity,Urine Clear Normal (applies to non-numeric re sults) [facility] Specific [place],Urine 1.005-1.030 Normal (applies to non- numeric results) [facility] pH,Urine 5.0-8.0 Normal (applies to non-numeric resul ts) [facility] Protein,Urine Negative Normal (applies to non-numeric re sults) [facility] Glucose,Urine Negative Normal (applies to non-numeric re sults) [facility] Ketones,Urine Negative [facility] Blood,Urine Negative Normal (applies to non-numeric resu lts) [facility] Bilirubin,Urine Negative [facility] Urobilinogen,Urine 0.2-1.0 [facility] Leukocyte Esterase,Urine Negative Normal (applies to non -numeric results) [facility] Nitrite,Urine Negative Normal (applies to non-numeric re sults) [facility] ID Date Data Source [id number] 03/17/2020 05:29:00 PM EDT [facility] Name Value Range Interpretation Code Description Data Julia rce(s) Supporting Document(s) Sodium 134 mmol/L 136-145 Below low normal [facility] Potassium 3.5-5.1 Below low normal [facility] sp[facility] Chloride 97 mmol/L 98-107 Below low normal [facility] Carbon Dioxide CO2 21-32 Normal (applies to non-numer ic results) [facility] Anion Gap 5.0-16.0 Normal (applies to non-numeric resul ts) [facility] BUN 6 mg/dL 7-18 Below low normal [facility] sp[facility] Creatinine,Serum 0.7-1.2 Below low normal [facility] GFR >60 Normal (applies to non-numeric results) [facility] Glucose Level 102 mg/dL 60-99 Above high normal [facility] Reference range is only applicable when patient is fasting Note the following drug interference: Sulfasalazine Sulfapyridine Can see falsely depressed Can see falsely elevated result with up to 17% results with up to 11% decrease in measurement increase in measurement Recommend patients be collected for this test prior to administration of either drug. Calcium 8.5-10.1 Below low normal [facility] Bilirubin,Total 0.1-1.9 [facility] RN read back critical infor sebas 03/17/20 0730 LAB.[facility] SGOT(AST) 86 U/L 15-37 Above high normal [facility] Note the following drug interference: Sulfasalazine Sulfapyridine Can see falsely depressed Can see falsely elevated result with up to 10% results with up to 10% decrease in measurement increase in measurement Recommend patients be collected for this test prior to administration of either drug. SGPT(ALT) 26 U/L 12-78 Normal (applies to non-numeric resul ts) [facility] Note the following drug interference: Sulfasalazine Sulfapyridine Can see falsely depressed Can see falsely elevated result with up to 29% results with up to 10% decrease in measurement increase in measurement Recommend patients be collected for this test prior to administration of either drug. Alkaline Phosphatase 163 U/L 38-[address] [facility] can increase Alkaline Phosp le vels up to 2 times the normal adult value. Normal values for children and adolescents are 2 to 3 times the normal adult value. Total Protein 6.0-8.2 Normal (applies to non-numeric re sults) [facility] Albumin Level 3.4-5.0 Below low normal [facility] ID Date Data Source [id number] 03/17/2020 05:29:00 PM [facility] Name Value Range Interpretation Code Description Data Julia rce(s) Supporting Document(s) Magnesium 1.8-2.4 Below low normal [facility] ID Date Data Source [id number] 03/17/2020 05:29:00 PM [facility] Name Value Range Interpretation Code Description Data Julia rce(s) Supporting Document(s) Amylase 107 U/L 25-115 Normal (applies to non-numeric resul ts) [facility] ID Date Data Source [id number] 03/17/2020 05:29:00 PM [facility] Name Value Range Interpretation Code Description Data Julia rce(s) Supporting Document(s) Lipase 571 U/L 73-393 Above high normal [facility] ID Date Data Source [id number] 03/17/2020 05:19:00 PM [facility] Name Value Range Interpretation Code Description Data Julia rce(s) Supporting Document(s) Lactic Acid 0.4-2.0 Normal (applies to non-numeric resu lts) [facility] ID Date Data Source [id number] 03/17/2020 05:13:00 PM EDT [facility] Name Value Range Interpretation Code Description Data Julia rce(s) Supporting Document(s) PT 9.2-11.7 Above high normal [facility] INR Normal (applies to non-numeric results) [facility] The use of INR is restricted to patients on stable oral anticoagulant. Therapeutic Range: 2.0 - 3.0 High Risk Range: 2.5 - 3.5 ID Date Data Source [id number] 03/17/2020 05:13:00 PM [facility] Name Value Range Interpretation Code Description Data Julia rce(s) Supporting Document(s) PTT 23.8-37.9 Normal (applies to non-numeric results) [facility] ID Date Data Source [id number] 03/17/2020 04:54:00 PM [facility] Name Value Range Interpretation Code Description Data Julia rce(s) Supporting Document(s) White Blood Count 3.5-10.5 Normal (applies to non-numeri c results) [facility] Red Blood Count 3.90-5.00 Below low normal [facility] Hemoglobin 12.0-15.5 Normal (applies to non-numeric resul ts) [facility] Hematocrit 34.9-44.5 Normal (applies to non-numeric resul ts) [facility] Mean Corpuscular Volume 81.2-95.1 Above high normal [facility] Mean Corpuscular Hgb 25.6-32.[address] [facility] Mean Corpuscular Hgb Conc 32.0-36.0 Normal (applies to no n-numeric results) [facility] Red Cell Distribution Width 11.9-15.5 Above high normal [facility] Platelet Count 108 x10 3/uL 150-450 Below low normal [facility] Mean Platelet Volume 9.4-12.4 Normal (applies to non-num reynaldo results) [facility] Neutrophils% (Auto) 31.0-71.0 Normal (applies to non-nume zora results) [facility] Lymphocytes% (Auto) 20.0-55.0 Below low normal [facility] Monocytes% (Auto) 4.0-12.0 Above high normal [facility] Eosinophils% (Auto) 1.0-8.0 Normal (applies to non-nume zora results) [facility] Basophils% (Auto) 0.0-2.0 Normal (applies to non-numeri c results) [facility] Immature Granulocytes% (Auto) 0.0-2.0 Normal (ivon lies to non-numeric results) [facility] Neutrophils# (Auto) 1.50-6.20 Normal (applies to non-nume zora results) [facility] Lymphocytes# (Auto) 1.20-4.00 Normal (applies to non-nume zora results) [facility] Monocytes# (Auto) 0.00-0.90 Above high normal [facility] Eosinophils# (Auto) 0.00-0.50 Normal (applies to non-nume zora results) [facility] Basophils# (Auto) 0.00-0.20 Normal (applies to non-numeri c results) [facility] Immature Granulocytes# (Auto) 0.00-7.00 No rmal (applies to non-numeric results) [facility] ID Date Data Source [id number] 03/18/2020 12:11:00 PM EDT [facility] Imaging Services Department Imaging Report [address], [place] [address] %(RAD)RES..mtdd.print.filter("line") Name: SANA SU : 1960 Age/Sex: 60F Ordering Provider: Kiel Marcos NP Med Rec #: [id number] Reg Status: [facility] ER Room #: Date of Service: 03/17/20 Report Number: [id number] cc:Kiel Marcos NP; PCP None Send Report To: [id number] US/US Duplex Lower Ext Vein Bilat Reason [...] Date/Time: 03/17/20 1800 Transcribed Date/Time: 03/18/20 1211 Mailroom Personnel: REMY Name Value Range Interpretation Code Description Data Julia rce(s) Supporting Document(s) ID Date Data Source [id number] 03/17/2020 04:39:00 PM EDT [facility] Imaging Services Department Imaging Report [address] [address] %(RAD)RES..mtdd.print.filter("line") Name: SANA SU : 1960 Age/Sex: 60F Ordering Provider: Kiel Marcos NP Med Rec #: [id number] Reg Status: [facility] ER Room #: Date of Service: 03/17/20 Report Number: [id number] cc:PCP None Send Report To: [id number] CT/CT Abdomen & Pelvis No Contras Reason [...] Date/Time: 03/17/20 1638 Transcribed Date/Time: 03/17/20 1639 Mailroom Personnel: REMY Name Value Range Interpretation Code Description Data Julia rce(s) Supporting Document(s) ID Date Data Source [id number] 01/17/2020 11:14:00 AM EDT [facility]MAKER ([facility]) ABDOMEN INDICATION: Pain COMPARISON: None TECHNIQUE: AP supine views of the abdomen were obtained. FINDINGS: Moderate stool in the colon. No dilated bowel. No evidence of free air or free fluid. No abnormal soft tissue mass lesions are identified. There are no pathological calcifications. IMPRESSION: Moderate stool in the colon, no dilated bowel Professional interpretation performed by [facility] Medical Imaging at [facility] Name Value Range Interpretation Code Description Data Julia rce(s) Supporting Document(s) ID Date Data Source [id number] 01/17/2020 12:00:00 AM EDT [facility] ([facility]) Name Value Range Interpretation Code Description Data Julia rce(s) Supporting Document(s) BASO # 0.1 10*3/uL BASO #: 0.1 10*3/uL 01/16 [facility] ([facility]) ID Date Data Source [id number] 01/17/2020 12:00:00 AM EDT [facility] ([facility]) Name Value Range Interpretation Code Description Data Julia rce(s) Supporting Document(s) EOS # 0.1 10*3/uL EOS #: 0.1 10*3/uL 2019 CHARTMAKER ([facility]) ID Date Data Source [id number] 01/17/2020 12:00:00 AM EDT [facility] ([facility]) Name Value Range Interpretation Code Description Data Julia rce(s) Supporting Document(s) MONO # 0.8 10*uL MONO #: 0.8 10*3/uL 01/16 CH[facility]MAKER ([facility]) ID Date Data Source [id number] 01/17/2020 12:00:00 AM EDT [facility] ([facility]) Name Value Range Interpretation Code Description Data Julia rce(s) Supporting Document(s) LYMPH # 1.2 10*uL LYMPH #: 1.2 10*3/uL 01/17/2020 CH[facility]MAKER ([facility]) ID Date Data Source [id number] 01/17/2020 12:00:00 AM EDT [facility] ([facility]) Name Value Range Interpretation Code Description Data Julia rce(s) Supporting Document(s) NEUT # 3.8 10*3uL NEUT #: 3.8 10*3/uL 01/16 CH[facility]MAK[facility] ([facility]) ID Date Data Source [id number] 01/17/2020 12:00:00 AM EDT [facility] ([facility]) Name Value Range Interpretation Code Description Data Julia rce(s) Supporting Document(s) BASO % 1.3 % BASO %: 1.3 % 01/17/2020 CHARTM JOAQUIN ([facility]) ID Date Data Source [id number] 01/17/2020 12:00:00 AM EDT [facility] ([facility]) Name Value Range Interpretation Code Description Data Julia rce(s) Supporting Document(s) EOS % 1.8 % EOS %: 1.8 % 01/17/2020 CHARTMA KER ([facility]) ID Date Data Source [id number] 01/17/2020 12:00:00 AM EDT [facility] ([facility]) Name Value Range Interpretation Code Description Data Julia rce(s) Supporting Document(s) MONO % 13.4 % MONO %: 13.4 % 01/17/2020 CHART MAKER ([facility]) ID Date Data Source [id number] 01/17/2020 12:00:00 AM EDT [facility] ([facility]) Name Value Range Interpretation Code Description Data Julia rce(s) Supporting Document(s) LYMPH % 19.7 % LYMPH %: 19.7 % 01/17/2020 AURELIA TMAKER ([facility]) ID Date Data Source [id number] 01/17/2020 12:00:00 AM EDT [facility] ([facility]) Name Value Range Interpretation Code Description Data Julia rce(s) Supporting Document(s) NEUT % 63.8 % NEUT %: 63.8 % 01/17/2020 CHART MAKER ([facility]) ID Date Data Source [id number] 01/17/2020 12:00:00 AM EDT [facility] ([facility]) Name Value Range Interpretation Code Description Data Julia rce(s) Supporting Document(s) MPV 9.2 fL MPV: 9.2 fL 01/17/2020 CHARTMAK ER ([facility]) ID Date Data Source [id number] 01/17/2020 12:00:00 AM EDT [facility] ([facility]) Name Value Range Interpretation Code Description Data Julia rce(s) Supporting Document(s) PLT 119 10*3/uL PLT: 119 10*3/uL 01/17/2020 C HARTMAKER ([facility]) ID Date Data Source [id number] 01/17/2020 12:00:00 AM EDT [facility] ([facility]) Name Value Range Interpretation Code Description Data Julia rce(s) Supporting Document(s) RDW 16.7 % RDW: 16.7 % 01/17/2020 CHARTMAK ER ([facility]) ID Date Data Source [id number] 01/17/2020 12:00:00 AM EDT [facility] ([facility]) Name Value Range Interpretation Code Description Data Julia rce(s) Supporting Document(s) MCHC 34.5 g/dL MCHC: 34.5 g/dL 01/17/2020 AURELIA TMAKER ([facility]) ID Date Data Source [id number] 01/17/2020 12:00:00 AM EDT CH[facility]MAKER ([facility]) Name Value Range Interpretation Code Description Data Julia rce(s) Supporting Document(s) MCH 35.5 pg MCH: 35.5 pg 01/17/2020 CHARTMA KER ([facility]) ID Date Data Source [id number] 01/17/2020 12:00:00 AM EDT CH[facility]MAKER ([facility]) Name Value Range Interpretation Code Description Data Julia rce(s) Supporting Document(s) MCV 102.9 fL MCV: 102.9 fL 01/17/2020 CHARTM JOAQUIN ([facility]) ID Date Data Source [id number] 01/17/2020 12:00:00 AM EDT CH[facility]MAKER ([facility]) Name Value Range Interpretation Code Description Data Julia rce(s) Supporting Document(s) HCT 34.5 % HCT: 34.5 % 01/17/2020 CHARTMAK ER ([facility]) ID Date Data Source [id number] 01/17/2020 12:00:00 AM EDT CH[facility]MAKER ([facility]) Name Value Range Interpretation Code Description Data Julia rce(s) Supporting Document(s) HGB 11.9 g/dL HGB: 11.9 g/dL 01/17/2020 CHART MAKER ([facility]) ID Date Data Source [id number] 01/17/2020 12:00:00 AM EDT CH[facility]MAKER ([facility]) Name Value Range Interpretation Code Description Data Julia rce(s) Supporting Document(s) RBC 3.36 10*6/uL RBC: 3.36 10*6/uL 2019 CHARTMAKER ([facility]) ID Date Data Source [id number] 01/17/2020 12:00:00 AM EDT CHARTMAKER ([facility]) Name Value Range Interpretation Code Description Data Julia rce(s) Supporting Document(s) WBC 5.9 10*3/uL WBC: 5.9 10*3/uL 01/17/2020 C JAIMIENJKER ([facility]) ID Date Data Source [id number] 01/17/2020 12:00:00 AM EDT CHARTMAKER ([facility]) Name Value Range Interpretation Code Description Data Julia rce(s) Supporting Document(s) GFR ( AMER) >60 GFR ( AMER ): >60 01/17/2020 CHARTMAKER ([facility]) ID Date Data Source [id number] 01/17/2020 12:00:00 AM EDT CHARTMAKER ([facility]) Name Value Range Interpretation Code Description Data Julia rce(s) Supporting Document(s) GFR >60 GFR : >60 01/17/2020 CHARTMAKER ([facility]) ID Date Data Source [id number] 01/17/2020 12:00:00 AM EDT CHARTMAKER ([facility]) Name Value Range Interpretation Code Description Data Julia rce(s) Supporting Document(s) ALT (SGPT) 32 U/L ALT (SGPT): 32 U/L 020 CHARTMAKER ([facility]) ID Date Data Source [id number] 01/17/2020 12:00:00 AM EDT CHARTMAKER ([facility]) Name Value Range Interpretation Code Description Data Julia rce(s) Supporting Document(s) AST (SGOT) 86 U/L AST (SGOT): 86 U/L 020 CHARTMAKER ([facility]) ID Date Data Source [id number] 01/17/2020 12:00:00 AM EDT CHARTMAKER ([facility]) Name Value Range Interpretation Code Description Data Julia rce(s) Supporting Document(s) BILIRUBIN,TOTAL 4.4 mg/dL BILIRUBIN,TOTAL: 4. 4 mg/dL 01/17/2020 CHARTMAKER ([facility]) ID Date Data Source [id number] 01/17/2020 12:00:00 AM EDT CHARTMAKER ([facility]) Name Value Range Interpretation Code Description Data Jluia rce(s) Supporting Document(s) ALKALINE PHOSPHATASE 175 U/L ALKALINE PHOSPH ATASE: 175 U/L 01/17/2020 CHARTMAKER ([facility]) ID Date Data Source [id number] 01/17/2020 12:00:00 AM EDT CHARTMAKER ([facility]) Name Value Range Interpretation Code Description Data Julia rce(s) Supporting Document(s) ALB/GLOB RATIO 0.5 RATIO ALB/GLOB RATIO: 0.5 RATIO 01/17/2020 CHARTMAKER ([facility]) ID Date Data Source [id number] 01/17/2020 12:00:00 AM EDT CHARTMAKER ([facility]) Name Value Range Interpretation Code Description Data Julia rce(s) Supporting Document(s) GLOBULIN 4.6 g/dL GLOBULIN: 4.6 g/dL 020 CHARTMAKER ([facility]) ID Date Data Source [id number] 01/17/2020 12:00:00 AM EDT CHARTMAKER ([facility]) Name Value Range Interpretation Code Description Data Julia rce(s) Supporting Document(s) ALBUMIN 2.3 g/dL ALBUMIN: 2.3 g/dL 01/17/20 20 CHARTMAKER ([facility]) ID Date Data Source [id number] 01/17/2020 12:00:00 AM EDT CHARTMAKER ([facility]) Name Value Range Interpretation Code Description Data Julia rce(s) Supporting Document(s) TOTAL PROTEIN 6.9 g/dL TOTAL PROTEIN: 6.9 g/ dL 01/17/2020 CHARTMAKER ([facility]) ID Date Data Source [id number] 01/17/2020 12:00:00 AM EDT CHARTMAKER ([facility]) Name Value Range Interpretation Code Description Data Julia rce(s) Supporting Document(s) CALCIUM 8.4 mg/dL CALCIUM: 8.4 mg/dL 020 CHARTMAKER ([facility]) ID Date Data Source [id number] 01/17/2020 12:00:00 AM EDT CHARTMAKER ([facility]) Name Value Range Interpretation Code Description Data Julia rce(s) Supporting Document(s) Glucose [Mass/volume] in Serum or Plasma 97 mg/dL Glucose: 97 mg/dL 01/17/2020 CHARTMAKER ([facility]) ID Date Data Source [id number] 01/17/2020 12:00:00 AM EDT CHARTMAKER ([facility]) Name Value Range Interpretation Code Description Data Julia rce(s) Supporting Document(s) BUN/CREAT RATIO 15.4 RATIO BUN/CREAT RATIO: 15 .4 RATIO 01/17/2020 CHARTMAKER ([facility]) ID Date Data Source [id number] 01/17/2020 12:00:00 AM EDT CHARTMAKER ([facility]) Name Value Range Interpretation Code Description Data Julia rce(s) Supporting Document(s) Creatinine 0.52 mg/dL Creatinine: 0.52 mg/dL CHARTMAKER ([facility]) ID Date Data Source [id number] 01/17/2020 12:00:00 AM EDT CHARTMAKER ([facility]) Name Value Range Interpretation Code Description Data Julia rce(s) Supporting Document(s) UREA NITROGEN 8 mg/dL UREA NITROGEN: 8 mg/d L 01/17/2020 CHARTMAKER ([facility]) ID Date Data Source [id number] 01/17/2020 12:00:00 AM EDT CHARTMAKER ([facility]) Name Value Range Interpretation Code Description Data Julia rce(s) Supporting Document(s) ANION GAP 3 mmol/L ANION GAP: 3 mmol/L 2019 CHARTMAKER ([facility]) ID Date Data Source [id number] 01/17/2020 12:00:00 AM EDT CHARTMAKER ([facility]) Name Value Range Interpretation Code Description Data Julia rce(s) Supporting Document(s) CO2 33 mmol/L CO2: 33 mmol/L 01/17/2020 CHART MAKER ([facility]) ID Date Data Source [id number] 01/17/2020 12:00:00 AM EDT CHARTMAKER ([facility]) Name Value Range Interpretation Code Description Data Julia rce(s) Supporting Document(s) CHLORIDE 99 mmol/L CHLORIDE: 99 mmol/L 2019 CHARTMAKER ([facility]) ID Date Data Source [id number] 01/17/2020 12:00:00 AM EDT CHARTMAKER ([facility]) Name Value Range Interpretation Code Description Data Julia rce(s) Supporting Document(s) Potassium 3.6 mmol/L Potassium: 3.6 mmol/L 01/17/2020 CHARTMAKER ([facility]) ID Date Data Source [id number] 01/17/2020 12:00:00 AM EDT CHARTMAKER ([facility]) Name Value Range Interpretation Code Description Data Julia rce(s) Supporting Document(s) SODIUM 135 mmol/L SODIUM: 135 mmol/L 020 CHARTMAKER ([facility]) Procedure Social History Code Duration Value Status Description Data Source(s ) Smoking 01/17/2020 12:00:00 AM EDT Smoker, current status unkn own completed Smoker, current status unknown CHARTMAKER ([facility]) Vital Signs ID Date Data Source UNK Name Value Range Interpretation Code Description Data Source(s) Body height 61 [in_i] 61 [in_i] LENNOX ([facility]) Body height 61 [in_i] 61 [in_i] LENNOX ([facility]) Body height 61 [in_i] 61 [in_i] LENNOX ([facility]) Body weight 2384 [oz_av] 2384 [oz_av] LENNOX ([facility]) Systolic blood pressure 113 mm[Hg] 113 mm[Hg] A [facility] ([facility]) Body mass index (BMI) [Ratio] 28.2 kg/m2 28.2 k g/m2 LENNOX ([facility]) Body height 61 [in_i] 61 [in_i] L[facility]NOX ([facility]) Diastolic blood pressure 75 mm[Hg] 75 mm[Hg] L[facility]NOX ([facility]) Body weight 2384 [oz_av] 2384 [oz_av] L[facility]NOX ([facility]) Systolic blood pressure 113 mm[Hg] 113 mm[Hg] A [facility] ([facility]) Body mass index (BMI) [Ratio] 28.2 kg/m2 28.2 k g/m2 LENNOX ([facility]) Body height 61 [in_i] 61 [in_i] [facility]X ([facility]) Diastolic blood pressure 75 mm[Hg] 75 mm[Hg] L[facility]NOX ([facility]) Body weight 2384 [oz_av] 2384 [oz_av] [facility]X ([facility]) Systolic blood pressure 113 mm[Hg] 113 mm[Hg] A [facility] ([facility]) Body mass index (BMI) [Ratio] 28.2 kg/m2 28.2 k g/m2 LENNOX ([facility]) Body height 61 [in_i] 61 [in_i] [facility]X ([facility]) Diastolic blood pressure 75 mm[Hg] 75 mm[Hg] [facility]X ([facility]) Body weight 2448 [oz_av] 2448 [oz_av] L[facility]NOX ([facility]) Systolic blood pressure 127 mm[Hg] 127 mm[Hg] A [facility] ([facility]) Body mass index (BMI) [Ratio] 28.9 kg/m2 28.9 k g/m2 LENNOX ([facility]) Body height 61 [in_i] 61 [in_i] [facility]X ([facility]) Diastolic blood pressure 80 mm[Hg] 80 mm[Hg] L[facility]X ([facility]) Body weight 2448 [oz_av] 2448 [oz_av] LENNOX ([facility]) Systolic blood pressure 127 mm[Hg] 127 mm[Hg] A THENA ([facility]) Body mass index (BMI) [Ratio] 28.9 kg/m2 28.9 k g/m2 LENNOX ([facility]) Body height 61 [in_i] 61 [in_i] LENNOX ([facility]) Diastolic blood pressure 80 mm[Hg] 80 mm[Hg] LENNOX ([facility]) Body weight 2448 [oz_av] 2448 [oz_av] LENNOX ([facility]) Systolic blood pressure 127 mm[Hg] 127 mm[Hg] A THENA ([facility]) Body mass index (BMI) [Ratio] 28.9 kg/m2 28.9 k g/m2 LENNOX ([facility]) Body height 61 [in_i] 61 [in_i] LENNOX ([facility]) Diastolic blood pressure 80 mm[Hg] 80 mm[Hg] L[facility]X ([facility]) Body weight 2448 [oz_av] 2448 [oz_av] LENNOX ([facility]) Systolic blood pressure 127 mm[Hg] 127 mm[Hg] A [facility] ([facility]) Body mass index (BMI) [Ratio] 28.9 kg/m2 28.9 k g/m2 LENNOX ([facility]) Body height 61 [in_i] 61 [in_i] LENNOX ([facility]) Diastolic blood pressure 80 mm[Hg] 80 mm[Hg] L[facility]NOX ([facility]) Body weight 2627.2 [oz_av] 2627.2 [oz_av] ATHEN A ([facility]) Systolic blood pressure 108 mm[Hg] 108 mm[Hg] A [facility] ([facility]) Body height 61 [in_i] 61 [in_i] LENNOX ([facility]) Diastolic blood pressure 71 mm[Hg] 71 mm[Hg] [facility]X ([facility]) Body weight 2627.2 [oz_av] 2627.2 [oz_av] ATHEN A ([facility]) Systolic blood pressure 108 mm[Hg] 108 mm[Hg] A [facility] ([facility]) Body height 61 [in_i] 61 [in_i] LENNOX ([facility]) Diastolic blood pressure 71 mm[Hg] 71 mm[Hg] [facility]X ([facility]) Body weight 2627.2 [oz_av] 2627.2 [oz_av] ATHEN A ([facility]) Systolic blood pressure 108 mm[Hg] 108 mm[Hg] A [facility] ([facility]) Body height 61 [in_i] 61 [in_i] LENNOX ([facility]) Diastolic blood pressure 71 mm[Hg] 71 mm[Hg] L[facility]NOX ([facility]) Body weight 2627.2 [oz_av] 2627.2 [oz_av] ATHEN A ([facility]) Systolic blood pressure 108 mm[Hg] 108 mm[Hg] A [facility] ([facility]) Body height 61 [in_i] 61 [in_i] LENNOX ([facility]) Diastolic blood pressure 71 mm[Hg] 71 mm[Hg] LENNOX ([facility]) Body weight 74.844 kg 74.844 kg [facility] ([facility], ) Body mass index (BMI) [Ratio] 31.2 kg/m2 31.2 k g/m2 [facility] ([facility]) Body weight 165.00 [lb_av] 165.00 [lb_av] JOEEN T ([facility], ) Body height 61 [in_i] 61 [in_i] DONNA ([facility], ) 5'1" Diastolic blood pressure 68 mm[Hg] 68 mm[Hg] [facility] ([facility]) Systolic blood pressure 128 mm[Hg] 128 mm[Hg] M PRISCILLA ([facility], ) Body weight 2596 [oz_av] 2596 [oz_av] LENNOX ([facility]) Systolic blood pressure 101 mm[Hg] 101 mm[Hg] A [facility] ([facility]) Body height 61 [in_i] 61 [in_i] LENNOX ([facility]) Diastolic blood pressure 70 mm[Hg] 70 mm[Hg] LENNOX ([facility]) Body weight 2596 [oz_av] 2596 [oz_av] LENNOX ([facility]) Systolic blood pressure 101 mm[Hg] 101 mm[Hg] A [facility] ([facility]) Body height 61 [in_i] 61 [in_i] LENNOX ([facility]) Diastolic blood pressure 70 mm[Hg] 70 mm[Hg] LENNOX ([facility]) Body weight 2596 [oz_av] 2596 [oz_av] LENNOX ([facility]) Systolic blood pressure 101 mm[Hg] 101 mm[Hg] A [facility] ([facility]) Body height 61 [in_i] 61 [in_i] LENNOX ([facility]) Diastolic blood pressure 70 mm[Hg] 70 mm[Hg] LENNOX ([facility]) Body weight 2596 [oz_av] 2596 [oz_av] LENNOX ([facility]) Systolic blood pressure 101 mm[Hg] 101 mm[Hg] A [facility] ([facility]) Body height 61 [in_i] 61 [in_i] LENNOX ([facility]) Diastolic blood pressure 70 mm[Hg] 70 mm[Hg] LENNOX ([facility]) Body weight 77.112 kg 77.112 kg [facility] ([facility], ) Body mass index (BMI) [Ratio] 32.1 kg/m2 32.1 k g/m2 [facility] ([facility]) Body weight 170.00 [lb_av] 170.00 [lb_av] MEDEN T ([facility]) Body height 61 [in_i] 61 [in_i] [facility] ([facility]) 5'1" Body weight 81.648 kg 81.648 kg [facility] ([facility]) Body mass index (BMI) [Ratio] 34.0 kg/m2 34.0 k g/m2 [facility] ([facility]) Body weight 180.00 [lb_av] 180.00 [lb_av] MEDEN T ([facility]) Body height 61 [in_i] 61 [in_i] [facility] ([facility]) 5'1" Diastolic blood pressure 64 mm[Hg] 64 mm[Hg] [facility] ([facility]) Systolic blood pressure 118 mm[Hg] 118 mm[Hg] M VIVEKJEANNIE ([facility], ) Body weight 2752 [oz_av] 2752 [oz_av] LENNOX ([facility]) Systolic blood pressure 121 mm[Hg] 121 mm[Hg] A THENA ([facility]) Body height 61 [in_i] 61 [in_i] LENNOX ([facility]) Diastolic blood pressure 78 mm[Hg] 78 mm[Hg] LENNOX ([facility]) Body weight 2752 [oz_av] 2752 [oz_av] LENNOX ([facility]) Systolic blood pressure 121 mm[Hg] 121 mm[Hg] A THENA ([facility]) Body height 61 [in_i] 61 [in_i] LENNOX ([facility]) Diastolic blood pressure 78 mm[Hg] 78 mm[Hg] L[facility]NOX ([facility]) Body weight 2752 [oz_av] 2752 [oz_av] LENNOX ([facility]) Systolic blood pressure 121 mm[Hg] 121 mm[Hg] A [facility] ([facility]) Body height 61 [in_i] 61 [in_i] LENNOX ([facility]) Diastolic blood pressure 78 mm[Hg] 78 mm[Hg] [facility]NOX ([facility]) Body weight 2752 [oz_av] 2752 [oz_av] L[facility]NOX ([facility]) Systolic blood pressure 121 mm[Hg] 121 mm[Hg] A [facility] ([facility]) Body height 61 [in_i] 61 [in_i] LENNOX ([facility]) Diastolic blood pressure 78 mm[Hg] 78 mm[Hg] L[facility]NOX ([facility]) Body weight 3286.08 [oz_av] 3286.08 [oz_av] ATH KIM ([facility]) Systolic blood pressure 131 mm[Hg] 131 mm[Hg] A [facility] ([facility]) Body height 61 [in_i] 61 [in_i] LENNOX ([facility]) Diastolic blood pressure 80 mm[Hg] 80 mm[Hg] L[facility]NOX ([facility]) Body weight 3286.08 [oz_av] 3286.08 [oz_av] ATH KIM ([facility]) Systolic blood pressure 131 mm[Hg] 131 mm[Hg] A [facility] ([facility]) Body height 61 [in_i] 61 [in_i] LENNOX ([facility]) Diastolic blood pressure 80 mm[Hg] 80 mm[Hg] L[facility]NOX ([facility]) Body weight 3286.08 [oz_av] 3286.08 [oz_av] ATH KIM ([facility]) Systolic blood pressure 131 mm[Hg] 131 mm[Hg] A [facility] ([facility]) Body height 61 [in_i] 61 [in_i] LENNOX ([facility]) Diastolic blood pressure 80 mm[Hg] 80 mm[Hg] LENNOX ([facility]) Body weight 3286.08 [oz_av] 3286.08 [oz_av] ATH KIM ([facility]) Systolic blood pressure 131 mm[Hg] 131 mm[Hg] A THENA ([facility]) Body height 61 [in_i] 61 [in_i] LENNOX ([facility]) Diastolic blood pressure 80 mm[Hg] 80 mm[Hg] LENNOX ([facility]) Inhaled oxygen concentration 21 % 21 % CHARTMAKER ([facility]) Oxygen saturation in Arterial blood by Pulse oximetry 97 % 97 % CHARTMAKER ([facility]) Body mass index (BMI) [Ratio] 35.4640778482800 kg/m2 35.2401475471191 kg/m2 CHARTMAKER ([facility]) Body weight 189 [lb_av] 189 [lb_av] CHARTMAKER ([facility]) Body height 61 [in_i] 61 [in_i] CHARTMAKER ([facility]) Diastolic blood pressure 78 mm[Hg] 78 mm[Hg] CHARTMAKER ([facility]) Systolic blood pressure 128 mm[Hg] 128 mm[Hg] C HARTMAKER ([facility]) Respiratory rate 16 /min 16 /min CHARTMAK ER ([facility]) Heart rate 95 /min 95 /min CHARTMAKER ([facility]) Body temperature 99.2 [degF] 99.2 [degF] DAMEON NUÑEZ ([facility]) ID Date Data Source [id number] 03/26/2020 03:10:00 PM EDT [facility] Name Value Range Interpretation Code Description Data Source(s) Weight Measurement Method 1 1 [facility] Weight (Calculated Kilograms) 93.44 93.44 [facility] Weight 3358.4 3358.4 [facility] Temperature Source 7 7 [facility] Temperature 99 99 [facility] Respiratory Effort 1 1 [facility] Respiratory Rate 18 18 [facility] Pulse Assessment Method 4 4 [facility] Pulse Rate 118 118 [facility] Height (Calculated Centimeters) 154.94 154. 94 [facility] Height 61 61 [facility] Blood Pressure 133/88 133/88 [facility] Body Mass Index (BMI) 38.9 38.9 [facility] Weight Measurement Method 1 1 [facility] Weight (Calculated Kilograms) 93.44 93.44 [facility] Weight 3358.4 3358.4 [facility] Temperature Source 7 7 [facility] Temperature 99 99 [facility] Respiratory Effort 1 1 [facility] Respiratory Rate 18 18 [facility] Pulse Assessment Method 4 4 [facility] Pulse Rate 118 118 [facility] Height (Calculated Centimeters) 154.94 154. 94 [facility] Height 61 61 [facility] Blood Pressure 133/88 133/88 [facility] Body Mass Index (BMI) 38.9 38.9 [facility] Weight Measurement Method 1 1 [facility] Weight (Calculated Kilograms) 93.44 93.44 [facility] Weight 3358.4 3358.4 [facility] Temperature Source 7 7 [facility] Temperature 99 99 [facility] Respiratory Effort 1 1 [facility] Respiratory Rate 18 18 [facility] Pulse Assessment Method 4 4 [facility] Pulse Rate 118 118 [facility] Height (Calculated Centimeters) 154.94 154. 94 [facility] Height 61 61 [facility] Blood Pressure 133/88 133/88 [facility] Body Mass Index (BMI) 38.9 38.9 [facility] Weight Measurement Method 1 1 [facility] Weight (Calculated Kilograms) 93.44 93.44 [facility] Weight 3152 3152 [facility] Temperature Source 7 7 [facility] Temperature 98.6 98.6 [facility] Respiratory Effort 1 1 [facility] Respiratory Rate 20 20 [facility] Pulse Assessment Method 4 4 [facility] Pulse Rate 122 122 [facility] Height (Calculated Centimeters) 154.94 154. 94 [facility] Height 61 61 [facility] Blood Pressure 97/61 97/61 [facility] Body Mass Index (BMI) 38.9 38.9 [facility] Weight Measurement Method 1 1 [facility] Weight (Calculated Kilograms) 93.44 93.44 [facility] Weight 3128 3128 [facility] Temperature Source 7 7 [facility] Temperature 98.9 98.9 [facility] Respiratory Effort 1 1 [facility] Respiratory Rate 20 20 [facility] Pulse Assessment Method 4 4 [facility] Pulse Rate 118 118 [facility] Height (Calculated Centimeters) 154.94 154. 94 [facility] Height 61 61 [facility] Blood Pressure 88/52 88/52 [facility] Body Mass Index (BMI) 38.9 38.9 [facility] Weight Measurement Method 1 1 [facility] Weight (Calculated Kilograms) 93.44 93.44 [facility] Weight 3296 3296 [facility] Temperature Source 7 7 [facility] Temperature 98.2 98.2 [facility] Respiratory Rate 16 16 [facility] Pulse Assessment Method 4 4 [facility] Pulse Rate 130 130 [facility] Height (Calculated Centimeters) 154.94 154. 94 [facility] Height 61 61 [facility] Blood Pressure 104/66 104/66 [facility] Body Mass Index (BMI) 38.9 38.9 [facility] ID Date Data Source [id number] 03/19/2020 12:09:00 PM EDT [facility] Name Value Range Interpretation Code Description Data Source(s) Weight Measurement Method 8 8 [facility] 3360 [facility]60 [facility] 1 1 [facility] Temperature 98.8 98.8 [facility] Respiratory Effort 1 1 [facility] Respiratory Rate 16 16 [facility] Pulse Assessment Method 4 4 G [facility] Pulse Rate 107 107 [facility] Height 61 61 [facility] Blood Pressure 136/99 136/99 [facility] Weight Measurement Method 8 8 [facility] Weight 3360 3360 [facility] pital Temperature Source 7 7 [facility] Temperature 99.0 99.0 [facility] Respiratory Effort 1 1 [facility] Respiratory Rate 18 18 [facility] Pulse Assessment Method 4 4 G [facility] Pulse Rate 105 105 [facility] pital Height 61 61 [facility] Blood Pressure 138/105 138/105 [facility] Patient Treatment Plan of Care Planned Activity Planned Date Details Description Data Source (s) zaleplon 5 MG Oral Capsule A THENA ([facility]) venlafaxine 37.5 MG Oral Tablet LENNOX ([facility]) torsemide 20 MG Oral Tablet L[facility]NOX ([facility]) Spironolactone 25 MG Oral Tablet [facility]X ([facility]) Shingrix (PF) 50 mcg/0.5 mL [facility] Lactulose 667 MG/ML Oral Solution LENNOX ([facility]) Lactulose 667 MG/ML Oral Solution [facility]NOX ([facility]) Furosemide 40 MG Oral Tablet [facility]X ([facility]) Furosemide 20 MG Oral Tablet [facility]X ([facility]) Fluzone Quad 60 mcg (15 mcg x 4)/0.5 mL intramuscular susp. INJECT INTO THE LEFT ARM DIRECTED AT [facility]) C[facility]fl[facility] Cephalexin 500 MG Oral Capsule LENNOX ([facility]) zaleplon 5 MG Oral Capsule A THENA [facility]) Spironolactone 25 MG [facility] Lact[facility] 667 [facility]/ML Oral Solution LENNOX [facility]) Furosemide 20 MG Oral Tablet LENNOX ([facility]) Fluzone Quad 60 mcg (15 mcg x 4)/0.5 mL intramuscular susp. INJECT INTO THE LEFT ARM DIRECTED AT [facility]) [facility] 500 [facility] zaleplon 5 MG Oral Capsule A THENA [facility]) Spironolactone 25 MG Oral Tablet L[facility]X ([facility]) Lactulose 667 MG[facility] Fluzone Quad 60 mcg (15 mcg x 4)/0.5 mL intramuscular susp. INJECT INTO THE LEFT ARM DIRECTED AT NORY ([facility]) Cephalexin 500 MG Oral Capsule LENNOX ([facility]) zaleplon 5 MG Oral Capsule A KOJO ([facility]) Spironolactone 25 MG Oral Tablet LENNOX ([facility]) Lactulose 667 MG/ML Oral Solution LENNOX ([facility]) Furosemide 20 MG Oral Tablet LENNOX ([facility])
[2020-11-15 17:20] LABS: ALBUMIN 3.3 GM/DL (3.2-5.2); BILIRUBIN,DIRECT 1.2 MG/DL (0.0-0.2); BILIRUBIN,TOTAL 2.7 MG/DL (0.2-1.0); CALCIUM LEVEL 8.7 MG/DL (8.5-10.1); CREATININE FOR GFR 2.08 MG/DL (0.55-1.30); POTASSIUM SERUM 5.3 MEQ/L (3.5-5.1); TOTAL PROTEIN 6.1 GM/DL (6.4-8.2)
[2020-11-15] MEDS ORDERED: GABA-282 PO (18:12)
[2020-11-15] MEDS ORDERED: SOD POLYSTYRENE SULFONATE SUSP 15 GM/60 ML UD PO ONE (18:15)
[2020-11-15] MEDS ORDERED: CALCIUM GLUCONATE 1,000 MG in D5W MINI-BAG PLUS 100 ML IV ONE (18:15)
[2020-11-15 18:22] LABS: RSV AMPLIFICATION NEGATIVE (NEGATIVE)
--- OUTSIDE RECORDS SUMMARY | 2020-11-15 18:37 | CCD ---
Author Author [facility] Organization [facility] Address Unknown Phone Unavailable Care Team Providers Care Guest Services Associate Name Role Phone STEVENS, W KAILA PA [...] Unavailable Scordo, M Mag PA Unavailable Unavailable Cougler, S Kiel TRAFFIC MAINTENANCE SUPERVISOR Unavailable Unavailable Cougler, S Kiel TRAFFIC MAINTENANCE SUPERVISOR Unavailable Unavailable Cougler, S Kiel TRAFFIC MAINTENANCE SUPERVISOR Unavailable Unavailable Cougler, S Kiel TRAFFIC MAINTENANCE SUPERVISOR Unavailable Unavailable Cougler, S Kiel TRAFFIC MAINTENANCE SUPERVISOR Unavailable Unavailable Cougler, S Kiel TRAFFIC MAINTENANCE SUPERVISOR Unavailable Unavailable Cougler, S Kiel TRAFFIC MAINTENANCE SUPERVISOR Unavailable Unavailable Cougler, S Kiel TRAFFIC MAINTENANCE SUPERVISOR Unavailable Unavailable Cougler, S Kiel TRAFFIC MAINTENANCE SUPERVISOR Unavailable Unavailable Cougler, S Kiel TRAFFIC MAINTENANCE SUPERVISOR Unavailable Unavailable Cougler, S Kiel TRAFFIC MAINTENANCE SUPERVISOR Unavailable Unavailable Cougler, S Kiel TRAFFIC MAINTENANCE SUPERVISOR Unavailable Unavailable Cougler, S Kiel TRAFFIC MAINTENANCE SUPERVISOR Unavailable Unavailable Cougler, S Kiel TRAFFIC MAINTENANCE SUPERVISOR Unavailable Unavailable Cougler, S Kiel TRAFFIC MAINTENANCE SUPERVISOR Unavailable Unavailable Cougler, S Kiel TRAFFIC MAINTENANCE SUPERVISOR Unavailable Unavailable Cougler, S Kiel TRAFFIC MAINTENANCE SUPERVISOR Unavailable Unavailable Cougler, S Kiel TRAFFIC MAINTENANCE SUPERVISOR Unavailable Unavailable Cougler, S Kiel TRAFFIC MAINTENANCE SUPERVISOR Unavailable Unavailable Cougler, S Kiel TRAFFIC MAINTENANCE SUPERVISOR Unavailable Unavailable Cougler, S Kiel TRAFFIC MAINTENANCE SUPERVISOR Unavailable Unavailable Cougler, S Kiel TRAFFIC MAINTENANCE SUPERVISOR Unavailable Unavailable Cougler, S Kiel TRAFFIC MAINTENANCE SUPERVISOR Unavailable Unavailable Cougler, S Kiel TRAFFIC MAINTENANCE SUPERVISOR Unavailable Unavailable Cougler, S Kiel TRAFFIC MAINTENANCE SUPERVISOR Unavailable Unavailable Cougler, S Kiel TRAFFIC MAINTENANCE SUPERVISOR Unavailable Unavailable Cougler, S Kiel TRAFFIC MAINTENANCE SUPERVISOR Unavailable Unavailable Cougler, S Kiel TRAFFIC MAINTENANCE SUPERVISOR Unavailable Unavailable Cougler, S Kiel TRAFFIC MAINTENANCE SUPERVISOR Unavailable Unavailable Cougler, S Kiel TRAFFIC MAINTENANCE SUPERVISOR Unavailable Unavailable Cougler, S Kiel TRAFFIC MAINTENANCE SUPERVISOR Unavailable Unavailable Cougler, S Kiel TRAFFIC MAINTENANCE SUPERVISOR Unavailable Unavailable Cougler, S Kiel TRAFFIC MAINTENANCE SUPERVISOR Unavailable Unavailable Cougler, S Kiel TRAFFIC MAINTENANCE SUPERVISOR Unavailable Unavailable Cougler, S Kiel TRAFFIC MAINTENANCE SUPERVISOR Unavailable Unavailable Cougler, S Kiel TRAFFIC MAINTENANCE SUPERVISOR Unavailable Unavailable Cougler, S Kiel TRAFFIC MAINTENANCE SUPERVISOR Unavailable Unavailable Cougler, S Kiel TRAFFIC MAINTENANCE SUPERVISOR Unavailable Unavailable Cougler, S Kiel TRAFFIC MAINTENANCE SUPERVISOR Unavailable Unavailable SONIYA CHENG MD Unavailable Unavailable [...] Pendleton-Trim, J Bruce PA Unavailable Unavailable Khaliq, Mahpara MD Unavailable Unavailable [...] Unavailable BERRIOS, JACKIE JOE RPA-C Unavailable Unavailable ChengSoniya harp MD Unavailable Unavailable BERRIOS, JACKIE JOE RPA-C Unavailable Unavailable BERRIOS, JACKIE JOE RPA-C Unavailable Unavailable BERRIOS, JACKIE JOE RPA-C Unavailable Unavailable BERRIOS, JACKIE JOE RPA-C Unavailable Unavailable BERRIOS, JACKIE JOE RPA-C Unavailable Unavailable BERRIOS, JACKIE JOE RPA-C Unavailable Unavailable BERRIOS, JACKIE JOE RPA-C Unavailable Unavailable BERRIOS, JACKIE JOE RPA-C Unavailable Unavailable BERRIOS, JACIKE JOE RPA-C Unavailable Unavailable BERRIOS, JACKIE JOE [...] Esquivel MD Unavailable Unavailab le Moussallem, Cristino sEquivel MD Unavailable Unavailab le Moussallem, Cristino Esquivel [...] Unavailable Unavailab Cristino Rosenthal MD Unavailable Unavailab Cristino Rosenthal MD Unavailable Unavailab Cristino Rosenthal MD Unavailable [...] Unavailable Unavailable Yesika LECHUGA MD Unavailable Unavailable Yeiska LECHUGA MD Unavailable Unavailable Yesika LECHUGA MD Unavailable Unavailable Yesika LECHUGA MD Unavailable Unavailable Yesika LECHUGA MD Unavailable Unavailable Yesika LECHUGA MD Unavailable Unavailable Shakila Tavarez MD Unavailable Unavailable Shakila Tavarez MD Unavailable Unavailable [facility], RFROST BERRIOS DENISSE DIAZ Unavailable Unavailable Re-disclosure [...] is protected by Article 27-F of the [facility] Public Health law. If you continue you may have access to information: Regarding HIV / AIDS; Provided by facilities licensed or operated by the [facility] Office of Mental Health; or Provided by the [facility] Office for People With Developmental Disabilities. If such information is present, then the following [facility] mandated warning applies: This information has [...] substance Moderate to Severe [facility] Allergy to substance Moderate to Severe [facility] Allergy to substance Moderate to Severe Vitamin D3 [facility] Allergy to substance Allergy to substance [facility]te[facility] Allergy to substance Allergy to substance [facility] Allergy to substance Allergy to substance ramelteon [place] ([facility]) Drug allergy RAMELTEON RAMELTEON diarrhea [facility] Allergy to substance Allergy to substance ramelteon [place] ([facility]) Drug allergy Drug allergy No Known Allergies [facility] Drug allergy Drug allergy No Known Allergies [facility] Encounters Encounter Providers Location Date Indications Data Source(s ) Mag Dhillon PA-C: [address], [place] [address], Ph. Attender: Mag SALCEDO [facility] Medical 10/30/2020 12:00:00 AM EST [place] ([facility]) Joe Berrios RPA-C: [address], [place] [address], Ph. Attender: JOE MALHOTRAC [facility] Medical 10/09/2020 12:00:00 AM EST [place] ([facility]) Joe Berrios RPA-C: [address], [place] [address], Ph. Attender: JOE MALHOTRAC [facility] Medical 10/09/2020 12:00:00 AM EST [place] ([facility]) Joe Berrios RPA-C: [address], [place] [address], Ph. Attender: JOE MALHOTRAC [facility] Medical 09/10/2020 12:00:00 AM EST [place] ([facility]) Joe Berrios RPA-C: [address], [place] [address], Ph. Attender: JOE MALHOTRAC [facility] Medical 09/10/2020 12:00:00 AM EST [place] ([facility]) Joe Berrios RPA-C: [address], [place] [address], Ph. Attender: JOE BERRIOS RPA-C [facility] Medical 09/10/2020 12:00:00 AM EST [place] ([facility]) Joe Berrios RPA-C: [address], [place] [address], Ph. Attender: JOE BERRIOS RPA-C [facility] Medical 08/14/2020 12:00:00 AM EST [place] ([facility]) Joe Berrios RPA-C: [address], [place] [address], Ph. Attender: JOE BERRIOS RPA-C [facility] Medical 08/14/2020 12:00:00 AM EST [place] ([facility]) Joe Berrios RPA-C: [address], [place] [address], Ph. Attender: JOE BERRIOS RPA-C [facility] Medical 08/14/2020 12:00:00 AM EST [place] ([facility]) Joe Berrios, RPA-C: [address], [place] [address], Ph. Attender: JOE BERRIOS RPA-C [facility] Medical 08/14/2020 12:00:00 AM EST [place] ([facility]) Outpatient Attender: JOE BERRIOS RPA-C ALL [facility] JOSLYN MORRISON ALL 02/2020 05:29:02 PM EDT [facility] Outpatient Attender: JOSLYN MORRISON ALL 06/13 08:57:04 AM EDT [facility] Outpatient Attender: JOE BERRIOS RPA-C ALL 07/03/2020 08:57:02 AM EDT [facility] Outpatient Attender: JOSLYN MADDENST DENISSE LOTTIN NCCOLTEN ALL 06/12 09:22:01 AM EDT [facility] Outpatient Attender: JOE BERRIOS RPA-C ALL 06/21/2020 12:00:44 AM EDT [facility] Outpatient Attender: JOE BERRIOS RPA-C ALL 06/11/2020 10:38:01 AM EDT [facility] Outpatient Attender: JOSLYN BERRIOS DENISSE JOE NCCOLTEN ALL 05/12 12:39:01 PM EDT [facility] Outpatient Attender: JOE BERRIOS RPA-C ALL 05/11/2020 12:00:10 AM EDT [facility] Outpatient Attender: JOE BERRIOS RPA-C ALL 05/10/2020 02:36:02 PM EDT [facility] Outpatient Attender: JOSLYN MADDENST SALCEDO JOE NCCOLTEN ALL 04/11 08:31:02 AM EDT [facility] Outpatient Attender: ZION Orellana/Naeem/Kerwin harris/Reindl 04/17/2020 11:40:00 AM EDT [facility] ([facility], ) Outpatient Attender: JOSLYN MADDENST DENISSE LOTTIN LACIECOLTEN ALL 10/2019 04:12:01 PM EDT [facility] Outpatient Attender: JOE BERRIOS RPA-C ALL 04/11/2020 04:11:59 PM EDT [facility] Outpatient Attender: JOE BERRIOS RPA-C ALL 04/09/2020 10:16:02 AM EDT [facility] Outpatient Attender: JOSLYN BERRIOS DENISSE JOE NCCOLTEN ALL 03/13 05:23:01 PM EDT [facility] Outpatient Attender: JOE BERRIOS RPA-C ALL 04/06/2020 05:22:59 PM EDT [facility] Outpatient Attender: JOSLYN MADDENST DENISSE DIAZ [facility] ALL 03/13 08:59:00 AM EDT [facility] Outpatient Attender: JOE BERRIOS RPA-C ALL 03/27/2020 02:02:02 PM EDT [facility] Inpatient Attender: Soniya Spangler DAttender: SONIYA Amezquitaender: Hector Mcgee MDAdmitter: SONIYA CHENG MDConsultant: Bruce Pendleton-Trim PAConsultant: BRUCE [facility]ED[facility] 03/17/2020 09:06:00 PM E DT - 03/22/2020 03:09:00 PM EDT ALCOHOLISM, ASCITES [facility] ALCOHOLISM, ASCITES Patient discharged. Preadmit Attender: [facility] 03/17/2020 08:47:00 PM EDT [facility] Emergency Attender: Kiel Marcos NP ED-ED 03/17 04:07:00 PM EDT - 03/17/2020 07:34:00 PM EDT SOB, FLUID IN ABD, SPIDER BITE RT FOOT [facility] SOB, FLUID IN ABD, SPIDER BITE RT FOOT Patient discharged. Preadmit Attender: Alvin Garber MD [id number] 03/17/2020 12:00:00 AM EDT F10.20 [facility] F10.20 Outpatient 01/17/2020 10:54:32 AM EDT [facility] ([facility]) OutpatientOFFICE/OUTPATIENT VISIT, NEW 01/17/2020 Attender: KAILA SALCEDO 01/17/2020 09:49:17 AM EDT [facility] ([facility]) Immunizations Vaccine Date Status Description Data Source(s) New in 2012. IIV4 08/17/2020 12:00:00 AM EST completed 08/17/20 [facility]) New in 2012. IIV4 08/17/2020 12:00:00 AM EST completed 08/17/20 [facility]) New in 2012. IIV4 08/17/2020 12:00:00 AM EST completed 08/17/20 [facility]) Medications Medication Brand Name Start Date Product Form Dose Route Admi nistrative Instructions Pharmacy Instructions Status Indications Reaction Description Data Source(s) gabapentin 300 MG Oral Capsule Gabapentin 05/30/2020 12:00:00 AM EDT ORAL active [facility] Ciprofloxacin 500 MG Oral Tablet Ciprofloxacin HCL 05/30/2020 12:00 :00 AM EDT ORAL active [facility] ([facility], ) Ensure Active High Protein 05/24/2020 12:00:00 AM EDT active [facility] ([facility], ) pantoprazole 40 MG Delayed Release Oral Tablet Pantoprazole Sodium 04/24/2020 12:00:00 AM EDT active M EDENT ([facility], ) zaleplon 5 MG Oral Capsule Zaleplon 04/20/2020 12:00:00 AM EDT ORAL completed [facility] ([facility], ) Famotidine 40 MG Oral Tablet Famotidine 04/17/2020 12:00:00 AM EDT completed [facility] ([facility], ) ramelteon 8 MG Oral Tablet Ramelteon 04/17/2020 12:00:00 AM EDT completed [facility] ([facility], ) Spironolactone 100 MG Oral Tablet spironolactone [...] mL completed lactulose 667 MG/ML Oral Solution [place] ([facility]) Cephalexin 500 MG Oral Capsule cephalexi n 500 mg capsule TAKE ONE CAPSULE BY MOUTH THREE TIMES A DAY cephalexin 500 mg capsule TAKE ONE CAPSU LE BY MOUTH THREE TIMES A DAY completed ceph alexin 500 MG Oral Capsule [place] ([facility]) torsemide 20 MG Oral Tablet torsemide 20 mg tablet torsemide 20 mg ta blet completed torsemide 20 MG Oral Tablet [place] ([facility]) venlafaxine 37.5 MG Oral Tablet venlafaxine 37.5 mg ta blet venlafaxine 37.5 mg tablet completed venlafaxine 37. 5 MG Oral Tablet [place] ([facility]) zaleplon 5 MG Oral Capsule zaleplon 5 mg capsule TAKE ONE CAPSULE BY MOUTH AT BEDTIME MAXIMUM DAILY DOSE 1 CAPSULE zaleplon 5 mg capsule TAKE ONE CAPSULE B Y MOUTH AT BEDTIME MAXIMUM DAILY DOSE 1 CAPSULE completed zaleplon 5 MG Oral Capsule [place] ([facility]) Shingrix (PF) 50 mcg/0.5 mL intramuscular suspension, kit [id number] completed 0.[address] virus glycoprotein E, recombinant 0.1 MG/ML Injection [Shingrix] [place] ([facility]) Ciprofloxacin 500 MG Oral Tablet ciprofloxacin 500 mg tablet ciprofloxacin 500 mg tablet completed ciprofloxaci n 500 MG Oral Tablet [place] ([facility]) Spironolactone 25 MG Oral Tablet spirono lactone 25 mg tablet TAKE ONE TABLET BY MOUTH EVERY DAY spironolactone 25 mg tablet TAKE ONE TABLET BY MOUTH E VERY DAY completed spironolactone 25 MG Oral Tablet [place] ([facility]) Furosemide 40 MG Oral Tablet furosemide 40 mg tablet TAKE 1.5 tablet QAM and 1.5 tablet QPM furosemide 40 mg tablet TAKE 1.5 tablet QAM and 1.5 tablet QPM completed furosemide 40 MG Oral Tablet [place] ([facility]) Spironolactone 25 MG Oral Tablet spirono lactone 25 mg tablet TAKE ONE TABLET BY MOUTH EVERY DAY spironolactone 25 mg tablet TAKE ONE TABLET BY MOUTH E VERY DAY completed spironolactone 25 MG Oral Tablet [place] ([facility]) Lactulose 667 MG/ML Oral Solution lactul ose 20 gram/30 mL oral solution TAKE 30ML BY MOUTH TWO TIMES A DAY lactulose 20 gram/30 mL oral solution TA KE 30ML BY MOUTH TWO TIMES A DAY completed lactulose 667 MG/ML Oral Solution [place] ([facility]) Cephalexin 500 MG Oral Capsule cephalexi n 500 mg capsule TAKE ONE CAPSULE BY MOUTH THREE TIMES A DAY cephalexin 500 mg capsule TAKE ONE CAPSU LE BY MOUTH THREE TIMES A DAY completed ceph alexin 500 MG Oral Capsule [place] ([facility]) Fluzone Quad 60 mcg (15 mcg x 4)/0.5 mL intramuscular susp. INJECT INTO THE LEFT ARM DIRECTED [id number] [facility] ed Fluzone Quad 60 mcg (15 mcg x 4)/0.5 mL intramuscular susp. [place] ([facility]) Furosemide 20 MG Oral Tablet furosemide 20 mg tablet TAKE ONE TABLET BY MOUTH EVERY DAY furosemide 20 mg tablet TAKE ONE TABLET BY MOUTH EVERY DAY completed furosemide 20 MG Oral Tablet [place] ([facility]) Lactulose 667 MG/ML Oral Solution lactul ose 20 gram/30 mL oral solution TAKE 30ML BY MOUTH TWO TIMES A DAY lactulose 20 gram/30 mL oral solution TA KE 30ML BY MOUTH TWO TIMES A DAY completed lactulose 667 MG/ML Oral Solution [place] ([facility]) Cephalexin 500 MG Oral Capsule cephalexi n 500 mg capsule TAKE ONE CAPSULE BY MOUTH THREE TIMES A DAY cephalexin 500 mg capsule TAKE ONE CAPSU LE BY MOUTH THREE TIMES A DAY completed ceph alexin 500 MG Oral Capsule [place] ([facility]) Spironolactone 25 MG Oral Tablet spirono lactone 25 mg tablet TAKE ONE TABLET BY MOUTH EVERY DAY spironolactone 25 mg tablet TAKE ONE TABLET BY MOUTH E completed spironolactone 25 MG Oral Tablet [place] ([facility]) zaleplon 5 MG Oral Capsule zaleplon 5 mg capsule TAKE ONE CAPSULE BY MOUTH AT BEDTIME MAXIMUM DAILY DOSE 1 CAPSULE zaleplon 5 mg capsule TAKE ONE CAPSULE B Y MOUTH AT BEDTIME MAXIMUM DAILY DOSE 1 CAPSULE completed zaleplon 5 MG Oral Capsule [place] ([facility]) Lactulose 667 MG/ML Oral Solution lactul ose 20 gram/30 mL oral solution TAKE 30ML BY MOUTH TWO TIMES A DAY lactulose 20 gram/30 mL oral solution TA KE 30ML BY MOUTH TWO TIMES A DAY completed lactulose 667 MG/ML Oral Solution [place] ([facility]) zaleplon 5 MG Oral Capsule zaleplon 5 mg capsule TAKE ONE CAPSULE BY MOUTH AT BEDTIME MAXIMUM DAILY DOSE 1 CAPSULE zaleplon 5 mg capsule TAKE ONE CAPSULE B Y MOUTH AT BEDTIME MAXIMUM DAILY DOSE 1 CAPSULE completed zaleplon 5 MG Oral Capsule [place] ([facility]) Furosemide 20 MG Oral Tablet furosemide 20 mg tablet TAKE ONE TABLET BY MOUTH EVERY DAY furosemide 20 mg tablet TAKE ONE TABLET BY MOUTH EVERY DAY completed furosemide 20 MG Oral Tablet [place] ([facility]) Furosemide 20 MG Oral Tablet furosemide 20 mg tablet TAKE ONE TABLET BY MOUTH EVERY DAY furosemide 20 mg tablet TAKE ONE TABLET BY MOUTH EVERY DAY completed furosemide 20 MG Oral Tablet [place] ([facility]) Lactulose 667 MG/ML Oral Solution lactul ose 20 gram/30 mL oral solution TAKE 30ML BY MOUTH TWO TIMES A DAY lactulose 20 gram/30 mL oral solution TA KE 30ML BY MOUTH TWO TIMES A DAY completed lactulose 667 MG/ML Oral Solution [place] ([facility]) Fluzone Quad 60 mcg (15 mcg x 4)/0.5 mL intramuscular susp. INJECT INTO THE LEFT ARM DIRECTED [id number] complet ed Fluzone Quad 60 mcg (15 mcg x 4)/0.5 mL intramuscular susp. [place] ([facility]) Spironolactone 25 MG Oral Tablet spirono lactone 25 mg tablet TAKE ONE TABLET BY MOUTH EVERY DAY spironolactone 25 mg tablet TAKE ONE TABLET BY MOUTH E VERY DAY completed spironolactone 25 MG Oral Tablet [place] ([facility]) Furosemide 20 MG Oral Tablet furosemide 20 mg tablet TAKE ONE TABLET BY MOUTH EVERY DAY furosemide 20 mg tablet TAKE ONE TABLET BY MOUTH EVERY DAY completed furosemide 20 MG Oral Tablet [place] ([facility]) Fluzone Quad 60 mcg (15 mcg x 4)/0.5 mL intramuscular susp. INJECT INTO THE LEFT ARM DIRECTED [id number] complet ed Fluzone Quad 60 mcg (15 mcg x 4)/0.5 mL intramuscular susp. [place] ([facility]) zaleplon 5 MG Oral Capsule zaleplon 5 mg capsule TAKE ONE CAPSULE BY MOUTH AT BEDTIME MAXIMUM DAILY DOSE 1 CAPSULE zaleplon 5 mg capsule TAKE ONE CAPSULE B Y MOUTH AT BEDTIME MAXIMUM DAILY DOSE 1 CAPSULE completed zaleplon 5 MG Oral Capsule [place] ([facility]) Insurance Providers Payer name Policy type / Coverage type Policy ID Covered libertarian ID Covered libertarian's relationship to bañuelos Policy Bañuelos Plan Information ROSEMARIE [id number] SP [id number] ROSEMARIE [id number] SP [id number] EMEDNY [id number] SP [id number] [place] [id number] S [id number] EMEDNY [id number] SP [id number] ROSEMARIE [id number] SP [id number] MEDICAID [id number] S [id number] SELF PAY S MEDICAID [id number] S [id number] MEDICAID [id number] SP [id number] SELF PAY ONLY NONE SP NONE ID IDENTIFICATION [id number] Other In surance [id number] Problems, Conditions, and Diagnoses Code Display Name Description Problem Type Effective Dates Data Source(s) 856384319 Major depressive disorder Major Depressive Disorder Pr oblem 10/09/2020 12:00:00 AM HOLDEN [place] ([facility]) 880797656 Major depressive disorder Major Depressive Disorder Pr oblem 10/09/2020 12:00:00 AM HOLDEN [place] ([facility]) 892172312 Compression fracture of lumbar spine Com pression Fracture of Lumbar Spine Problem 09/10/2020 12:00:00 AM HOLDEN [place] ([facility]) 406295967 Osteopenia Osteopenia Problem 09/10/2020 12:00:00 AM JULIA [facility] ([facility]) 080665103 Compression fracture of lumbar spine Com pression Fracture of Lumbar Spine Problem 09/10/2020 12:00:00 AM HOLDEN [place] ([facility]) 850925453 Osteopenia Osteopenia Problem 09/10/2020 12:00:00 AM JULIA [facility] ([facility]) 754474959 Compression fracture of lumbar spine Com pression Fracture of Lumbar Spine Problem 09/10/2020 12:00:00 AM HOLDEN [facility] ([facility]) 251433618 Osteopenia Osteopenia Problem 09/10/2020 12:00:00 AM ES Aida [facility] ([facility]) V70.0 Encounter for general adult medical exam ination with abnormal findings Encounter for general adult medical examination with abnormal findings 06/11/2020 10:37:39 AM EDT [facility] [id number] Procedure by method Procedure by Method Problem 0 06/11/2020 12:00:00 AM EDT - 08/14/2020 12:00:00 AM EST [place] ([facility]) 770347006 Procedure by method Procedure by Method Problem 0 06/11/2020 12:00:00 AM EDT - 08/14/2020 12:00:00 AM EST [place] ([facility]) 798491560 Procedure by method Procedure by Method Problem 0 06/11/2020 12:00:00 AM EDT - 08/14/2020 12:00:00 AM EST [place] ([facility]) [id number] Procedure by method Procedure by Method Problem 0 06/11/2020 12:00:00 AM EDT - 08/14/2020 12:00:00 AM EST [place] ([facility]) V05.9 Encounter for immunization Encounter for immunization 05/10/2020 02:34:40 PM EDT [facility] [id number] Influenza vaccine needed Influenza Vaccine Needed Pro blem 05/10/2020 12:00:00 AM EDT - 10/30/2020 12:00:00 AM EST [place] ([facility]) [id number] Influenza vaccine needed Influenza Vaccine Needed Pro blem 05/10/2020 12:00:00 AM EDT [place] ([facility]) [id number] Influenza vaccine needed Influenza Vaccine Needed Pro blem 05/10/2020 12:00:00 AM EDT [place] ([facility]) [id number] Influenza vaccine needed Influenza Vaccine Needed Pro blem 05/10/2020 12:00:00 AM EDT [place] ([facility]) 270529080 Insomnia, unspecified Insomnia, unspecified 04/09/2020 10:15:55 AM EDT [facility] 253556474 Insomnia Insomnia Problem 04/09/2020 12:00:00 AM ED T [place] ([facility]) 947574705 Insomnia Insomnia Problem 04/09/2020 12:00:00 AM ED T [place] ([facility]) 748634363 Insomnia Insomnia Problem 04/09/2020 12:00:00 AM ED T [place] ([facility]) 378557164 Insomnia Insomnia Problem 04/09/2020 12:00:00 AM ED T [place] ([facility]) 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, in remission Alcohol abuse, in remissio n 03/27/2020 02:00:55 PM EDT [facility] 782.3 Edema of lower extremity Edema of lower extremity 03/27/2020 02:00:55 PM EDT [facility] K70.31 Alcoholic cirrhosis of liver with ascite s Alcoholic cirrhosis of liver with ascites 03/27/2020 02:00:55 PM EDT [facility] 305.1 Tobacco user Tobacco user 03/27/2020 02:00:55 P M EDT [facility] [id number] Ascites due to alcoholic cirrhosis Ascit es Due to Alcoholic Cirrhosis Problem 03/27/2020 12:00:00 AM EDT [place] ([facility]) 798328973 Localized edema Localized Edema Problem 03/27/2020 12:0 0:00 AM EDT [place] ([facility]) 70290814 Nicotine dependence Nicotine Dependence Problem 0 03/27/2020 12:00:00 AM EDT [place] ([facility]) 401905386 Nondependent alcohol abuse in remission Nondependent Alcohol Abuse in Remission Problem 03/27/2020 12:00:00 AM EDT [place] ([facility]) [id number] Ascites due to alcoholic cirrhosis Ascit es Due to Alcoholic Cirrhosis Problem 03/27/2020 12:00:00 AM EDT [place] ([facility]) 981580297 Localized edema Localized Edema Problem 03/27/2020 12:0 0:00 AM EDT [place] ([facility]) [id number] Nicotine dependence Nicotine Dependence Problem 0 03/27/2020 12:00:00 AM EDT [place] ([facility]) [id number] Nondependent alcohol abuse in remission Nondependent Alcohol Abuse in Remission Problem 03/27/2020 12:00:00 AM EDT [place] ([facility]) [id number] Ascites due to alcoholic cirrhosis Ascit es Due to Alcoholic Cirrhosis Problem 03/27/2020 12:00:00 AM EDT [place] ([facility]) [id number] Localized edema Localized Edema Problem 03/27/2020 12:0 0:00 AM EDT [place] ([facility]) [id number] Nicotine dependence Nicotine Dependence Problem 0 03/27/2020 12:00:00 AM EDT [place] ([facility]) [id number] Nondependent alcohol abuse in remission Nondependent Alcohol Abuse in Remission Problem 03/27/2020 12:00:00 AM EDT [place] ([facility]) [id number] Ascites due to alcoholic cirrhosis Ascit es Due to Alcoholic Cirrhosis Problem 03/27/2020 12:00:00 AM EDT [place] ([facility]) [id number] Localized edema Localized Edema Problem 03/27/2020 12:0 0:00 AM EDT [place] ([facility]) [id number] Nicotine dependence Nicotine Dependence Problem 0 03/27/2020 12:00:00 AM EDT [place] ([facility]) [id number] Nondependent alcohol abuse in remission Nondependent Alcohol Abuse in Remission Problem 03/27/2020 12:00:00 AM EDT [place] ([facility]) R10.9 Unspecified abdominal pain Unspecified abdominal pain (R10.9) 01/17/2020 [id number] 01/17/2020 09:49:17 AM EDT [facility] ([facility]) K70.11 Alcoholic hepatitis with ascites Alcohol ic hepatitis with ascites (K70.11) 01/17/2020 [id number] 01/17/2020 09:49:17 AM EDT [facility] ([facility]) Y92.[address] or not applicable UNSPECIFIED PLACE OR NOT APPLICABLE Diagnosis 03/17/2020 09:06:00 PM EDT [facility] W57.XXXA Bitten or stung by nonvenomo us insect and other nonvenomous arthropods, initial encounter BIT/STUNG BY NONVENOM INSECT & OTH NONVENOM ARTHROPODS , INIT Diagnosis 03/17/2020 09:06:00 PM EDT [facility] K72.00 Acute and subacute hepatic failure witho ut coma ACUTE AND SUBACUTE HEPATIC FAILURE WITHOUT COMA Diagnosis 03/17/2020 09:06:00 PM EDT [facility] 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 Diagnosis 03/17/2020 09:06:00 PM [facility] F10.232 Alcohol dependence with withdrawal with perceptual disturbance ALCOHOL DEPENDENCE W WITHDRAWAL WITH PERCEPTUAL DISTURBANCE Diagnosis 09:06:00 PM [facility] K76.6 Portal hypertension PORTAL HYPERTENSION Diagnosis 0 03/17/2020 09:06:00 PM [facility] F17.210 Nicotine dependence, cigarettes, uncompl icated NICOTINE DEPENDENCE, CIGARETTES, UNCOMPLICATED Diagnosis 03/17/2020 09:06:00 PM [facility] S90.861A Insect bite (nonvenomous), right foot, i nitial encounter INSECT BITE (NONVENOMOUS), RIGHT FOOT, INITIAL ENCOUNTER Diagnosis 0 09:06:00 PM [facility] F31.9 Bipolar disorder, unspecified BIPOLAR DISORDER, UNSPEC IFIED Diagnosis 03/17/2020 09:06:00 PM [facility] K70.31 Alcoholic cirrhosis of liver with ascite s ALCOHOLIC CIRRHOSIS OF LIVER WITH ASCITES Diagnosis 03/17/2020 09:06:00 PM [facility] Surgeries/Procedures Procedure Description Date Indications Data Source(s) Drainage of Peritoneal Cavity, Percutaneous Approach, Diagnostic DRAINAGE OF PERITONEAL CAVITY, PERCUTANEOUS APPROACH, DIAGN 03/18/2020 12:00:00 AM [facility] XRAY ABDOMEN 2 VIEW (FLAT and UPRIGHT) 01/17/202001/16 12:00:00 AM EDT [facility] ([facility]) Collected Date 01/17/2020 1024 01/17/2020 01/17/2020 12:00 :00 AM EDT [facility] ([facility]) CBCDIFF 01/17/2020 01/17/2020 12:00:00 AM EDT [facility] ([facility]) COMPREHENSIVE METABOLIC PANEL 01/17/2020 12:00:00 AM E DT [facility] ([facility]) Results ID Date Data Source [id number] 10/25/2020 01:19:00 PM EST [place] ([facility]) Name Value Range Interpretation Code Description Data Julia rce(s) Supporting Document(s) magnesium level 2.1 mg/dL 1.8-2.4 normal Magnesium Level [place] ([facility]) ID Date Data Source [id number] 10/25/2020 01:19:00 PM EST [place] ([facility]) Name Value Range Interpretation Code Description Data Julia rce(s) Supporting Document(s) phosphorus level 3.4 mg/dL 2.5-4.9 normal Phosphorus Level AT [facility]) ID Date Data Source [id number] 10/25/2020 01:19:00 PM EST [place] ([facility]) Name Value Range Interpretation Code Description Data Julia rce(s) Supporting Document(s) glucose, fasting 95 mg/dL 70-100 normal Glucose, Fasting AT [facility] ([facility]) blood urea nitrogen 34 mg/dL 7-18 Above high normal Blood Ure a Nitrogen [place] ([facility]) creatinine for GFR 1.49 mg/dL 0.55-1.30 Above high normal Creatinine for GFR [place] ([facility]) glomerular filtration rate >51 Below low normal Deidra merular Filtration Rate [place] ([facility]) potassium serum 4.7 mEq/L 3.5-5.1 normal Potassium Serum [facility] ([facility]) sodium level 127 mEq/L 136-145 Below low normal Sodium Level [facility] ([facility]) carbon dioxide level 24 mEq/L 21-32 normal Carbon Dioxide Level [place] ([facility]) chloride level 95 mEq/L 98-107 Below low normal Chloride Level [place] ([facility]) anion gap 8 mEq/L 8-16 normal Anion Gap [place] ([facility]) calcium level 8.7 mg/dL 8.5-10.1 normal Calcium Level [place] ( [facility]) ID Date Data Source [id number] 10/25/2020 11:00:00 AM EST [place] ([facility]) Name Value Range Interpretation Code Description Data Julia rce(s) Supporting Document(s) albumin 25% transfused product: albumin 25% count: 2 Albumin 25% [place] ([facility]) ID Date Data Source [id number] 10/18/2020 11:24:00 AM EST [place] ([facility]) Name Value Range Interpretation Code Description Data Julia rce(s) Supporting Document(s) magnesium level 2.0 mg/dL 1.8-2.4 normal [facility] ID Date Data Source [id number] 10/18/2020 11:24:00 AM EST [place] ([facility]) Name Value Range Interpretation Code Description Data Julia rce(s) Supporting Document(s) phosphorus level 3.6 mg/dL 2.5-4.9 normal Phosphorus Level AT [facility] ([facility]) ID Date Data Source [id number] 10/18/2020 11:24:00 AM EST [place] ([facility]) Name Value Range Interpretation Code Description Data Julia rce(s) Supporting Document(s) glucose, fasting 101 mg/dL 70-100 Above high normal Glucose, Fas ting [place] ([facility]) blood urea nitrogen 28 mg/dL 7-18 Above high normal Blood Ure a Nitrogen [place] ([facility]) creatinine for GFR 1.68 mg/dL 0.55-1.30 Above high normal Creatinine for GFR [place] ([facility]) glomerular filtration rate >51 Below low normal Deidra merular Filtration Rate [place] ([facility]) sodium level 134 mEq/L 136-145 Below low normal Sodium Level [facility] NA ([facility]) potassium serum 3.9 mEq/L 3.5-5.1 normal Potassium Serum [facility] ([facility]) chloride level 103 mEq/L 98-107 normal Chloride Level [place] ([facility]) carbon dioxide level 23 mEq/L 21-32 normal Carbon Dioxide Level [place] ([facility]) anion gap 8 mEq/L 8-16 normal Anion Gap [place] ([facility]) calcium level 8.2 mg/dL 8.5-10.1 Below low normal Calcium Level AT [facility] ([facility]) ID Date Data Source [id number] 10/18/2020 08:26:00 AM EST [place] ([facility]) Name Value Range Interpretation Code Description Data Julia rce(s) Supporting Document(s) albumin 25% transfused product: albumin 25% count: 4 Albumin 25% [place] ([facility]) ID Date Data Source [id number] 10/03/2020 10:51:00 AM EST [place] ([facility]) Name Value Range Interpretation Code Description Data Julia rce(s) Supporting Document(s) magnesium level 2.1 mg/dL 1.8-2.4 normal [facility]esium [facility] ID Date Data Source [id number] 10/03/2020 10:51:00 AM EST [place] ([facility]) Name Value Range Interpretation Code Description Data Julia rce(s) Supporting Document(s) phosphorus level 3.9 mg/dL 2.5-4.9 normal Phosphorus Level AT [facility] ([facility]) ID Date Data Source [id number] 10/03/2020 10:51:00 AM EST [place] ([facility]) Name Value Range Interpretation Code Description Data Julia rce(s) Supporting Document(s) glucose, fasting 106 mg/dL 70-100 Above high normal Glucose, Fas ting [place] ([facility]) blood urea nitrogen 30 mg/dL 7-18 Above high normal Blood Ure a Nitrogen [place] ([facility]) creatinine for GFR 1.64 mg/dL 0.55-1.30 Above high normal Creatinine for GFR [place] ([facility]) glomerular filtration rate >51 Below low normal Deidra merular Filtration Rate [place] ([facility]) sodium level 128 mEq/L 136-145 Below low normal Sodium Level [facility] [place] ([facility]) potassium serum 4.4 mEq/L 3.5-5.1 normal Potassium Serum [facility] [place] ([facility]) chloride level 98 mEq/L 98-107 normal Chloride Level [place] ([facility]) carbon dioxide level 23 mEq/L 21-32 normal Carbon Dioxide Level [place] ([facility]) anion gap 7 mEq/L 8-16 Below low normal Anion Gap [place] ( [facility]) calcium level 8.6 mg/dL 8.5-10.1 normal Calcium Level [place] ( [facility]) ID Date Data Source [id number] 10/03/2020 10:51:00 AM EST [place] ([facility]) Name Value Range Interpretation Code Description Data Julia rce(s) Supporting Document(s) magnesium level 2.1 mg/dL 1.8-2.4 normal Magnesium Level [facility] ([facility]) ID Date Data Source [id number] 10/03/2020 10:51:00 AM EST [place] ([facility]) Name Value Range Interpretation Code Description Data Julia rce(s) Supporting Document(s) phosphorus level 3.9 mg/dL 2.5-4.9 normal Phosphorus Level AT [facility] ([facility]) ID Date Data Source [id number] 10/03/2020 10:51:00 AM EST [place] ([facility]) Name Value Range Interpretation Code Description Data Julia rce(s) Supporting Document(s) blood urea nitrogen 30 mg/dL 7-18 Above high normal Blood Ure a Nitrogen [place] ([facility]) glucose, fasting 106 mg/dL 70-100 Above high normal Glucose, Fas ting [place] ([facility]) creatinine for GFR 1.64 mg/dL 0.55-1.30 Above high normal Creatinine for GFR [place] ([facility]) sodium level 128 mEq/L 136-145 Below low normal Sodium Level [facility] [place] ([facility]) glomerular filtration rate >51 Below low normal Deidra merular Filtration Rate [place] ([facility]) chloride level 98 mEq/L 98-107 normal Chloride Level [place] ([facility]) potassium serum 4.4 mEq/L 3.5-5.1 normal Potassium Serum [facility] [place] ([facility]) carbon dioxide level 23 mEq/L 21-32 normal Carbon Dioxide Level [place] ([facility]) anion gap 7 mEq/L 8-16 Below low normal Anion Gap [place] ( [facility]) calcium level 8.6 mg/dL 8.5-10.1 normal Calcium Level [place] ( [facility]) ID Date Data Source [id number] 10/03/2020 10:36:00 AM EST [place] ([facility]) Name Value Range Interpretation Code Description Data Julia rce(s) Supporting Document(s) albumin 25% transfused product: albumin 25% count: 4 Albumin 25% [place] ([facility]) ID Date Data Source [id number] 10/03/2020 10:36:00 AM EST [place] ([facility]) Name Value Range Interpretation Code Description Data Julia rce(s) Supporting Document(s) albumin 25% transfused product: albumin 25% count: 4 Albumin 25% [place] ([facility]) ID Date Data Source [id number] 09/27/2020 09:30:00 AM EST [place] ([facility]) Name Value Range Interpretation Code Description Data Julia rce(s) Supporting Document(s) albumin 25% transfused product: albumin 25% count: 4 Albumin 25% [place] ([facility]) ID Date Data Source [id number] 09/27/2020 09:30:00 AM EST [place] ([facility]) Name Value Range Interpretation Code Description Data Julia rce(s) Supporting Document(s) albumin 25% transfused product: albumin 25% count: 4 Albumin 25% [place] ([facility]) ID Date Data Source [id number] 09/20/2020 08:30:00 AM EST [place] ([facility]) Name Value Range Interpretation Code Description Data Julia rce(s) Supporting Document(s) albumin 25% transfused product: albumin 25% count: 4 Albumin 25% [place] ([facility]) ID Date Data Source [id number] 09/20/2020 08:30:00 AM EST [place] ([facility]) Name Value Range Interpretation Code Description Data Julia rce(s) Supporting Document(s) albumin 25% transfused product: albumin 25% count: 4 Albumin 25% [place] ([facility]) ID Date Data Source [id number] 09/13/2020 01:21:00 PM EST [place] ([facility]) Name Value Range Interpretation Code Description Data Julia rce(s) Supporting Document(s) albumin, body fluid 0.7 g/dL not established normal Albumin, Julien dy Fluid [place] ([facility]) source, body fluid albumin ascites normal Source, B jamil Fluid Albumin [place] ([facility]) ID Date Data Source [id number] 09/13/2020 01:21:00 PM EST [place] ([facility]) Name Value Range Interpretation Code Description Data Julia rce(s) Supporting Document(s) total protein, body fluid 1.4 g/dL not established normal Total Protein, Body Fluid [place] ([facility]) source, body fluid tot protein ascites normal Sourc e, Body Fluid Tot Protein [place] ([facility]) ID Date Data Source [id number] 09/13/2020 01:21:00 PM EST [place] ([facility]) Name Value Range Interpretation Code Description Data Julia rce(s) Supporting Document(s) source, body fluid ascites normal Source, Body Flui d [place] ([facility]) ascites fL color yellow colorless normal Ascites fL Color AT [place] ([facility]) appearance, body fluid hazy clear normal Appearance, B jamil Fluid [place] ([facility]) WBC body fluid 108 /uL 0-10 Above high normal WBC Body Fluid [place] ([facility]) bf mononuclear cell % 94.5 % 0-0 Above high normal Bf [place] nuclear Cell % [place] ([facility]) RBC body fluid < 2 <2 normal RBC Body Fluid [place] ([facility]) bf polymorphonuclear cell % 5.5 % 0-0 Above high no rmal Bf Polymorphonuclear Cell % [place] ([facility]) ID Date Data Source [id number] 09/13/2020 01:21:00 PM EST [place] ([facility]) Name Value Range Interpretation Code Description Data Julia rce(s) Supporting Document(s) source, body fluid albumin ascites normal Source, B jamil Fluid Albumin [place] ([facility]) albumin, body fluid 0.7 g/dL not established normal Albumin, Julien dy Fluid [place] ([facility]) ID Date Data Source [id number] 09/13/2020 01:21:00 PM EST [place] ([facility]) Name Value Range Interpretation Code Description Data Julia rce(s) Supporting Document(s) source, body fluid tot protein ascites normal Sourc e, Body Fluid Tot Protein [place] ([facility]) total protein, body fluid 1.4 g/dL not established normal Total Protein, Body Fluid [place] ([facility]) ID Date Data Source [id number] 09/13/2020 01:21:00 PM EST [place] ([facility]) Name Value Range Interpretation Code Description Data Julia rce(s) Supporting Document(s) source, body fluid ascites normal Source, Body Flui d [place] ([facility]) ascites fL color yellow colorless normal Ascites fL Color AT [place] ([facility]) appearance, body fluid hazy clear normal Appearance, B jamil Fluid [place] ([facility]) WBC body fluid 108 /uL 0-10 Above high normal WBC Body Fluid [place] ([facility]) RBC body fluid < 2 <2 normal RBC Body Fluid [place] ([facility]) bf mononuclear cell % 94.5 % 0-0 Above high normal Bf [place] nuclear Cell % [place] ([facility]) bf polymorphonuclear cell % 5.5 % 0-0 Above high no rmal Bf Polymorphonuclear Cell % [place] ([facility]) ID Date Data Source [id number] 09/13/2020 08:48:00 AM EST [place] ([facility]) Name Value Range Interpretation Code Description Data Julia rce(s) Supporting Document(s) albumin 25% transfused product: albumin 25% count: 4 Albumin 25% [place] ([facility]) ID Date Data Source [id number] 09/13/2020 08:48:00 AM EST [place] ([facility]) Name Value Range Interpretation Code Description Data Julia rce(s) Supporting Document(s) albumin 25% transfused product: albumin 25% count: 4 Albumin 25% [place] ([facility]) ID Date Data Source [id number] 09/05/2020 11:04:00 AM EST [facility]) Name Value Range Interpretation Code Description Data Julia rce(s) Supporting Document(s) glucose, fasting 109 mg/dL 70-100 Above high normal Glucose, Fas ting [place] ([facility]) blood urea nitrogen 27 mg/dL 7-18 Above high normal Blood Ure a Nitrogen [place] ([facility]) creatinine for GFR 1.52 mg/dL 0.55-1.30 Above high normal Creatinine for GFR [place] ([facility]) sodium level 130 mEq/L 136-145 Below low normal Sodium Level [facility] [place] ([facility]) glomerular filtration rate >51 Below low normal Deidra merular Filtration Rate [place] ([facility]) potassium serum 3.9 mEq/L 3.5-5.1 normal Potassium Serum [facility] [place] ([facility]) chloride level 93 mEq/L 98-107 Below low normal Chloride Level [place] ([facility]) anion gap 8 mEq/L 8-16 normal Anion Gap [place] ([facility]) carbon dioxide level 29 mEq/L 21-32 normal Carbon Dioxide Level [place] ([facility]) calcium level 9.4 mg/dL 8.5-10.1 normal Calcium Level [place] ( [facility]) ID Date Data Source [id number] 09/05/2020 11:04:00 AM EST [place] ([facility]) Name Value Range Interpretation Code Description Data Julia rce(s) Supporting Document(s) AST/SGOT 50 U/L 7-37 Above high normal AST/SGOT [place] ([facility]) ALT/SGPT 26 U/L 12-78 normal ALT/SGPT [place] ([facility]) alkaline phosphatase 184 U/L 45-117 Above high normal Alkaline Phosphatase [place] ([facility]) bilirubin,total 4.3 mg/dL 0.2-1.0 Above high normal Bilirubin,tot al [place] ([facility]) bilirubin,direct 1.7 mg/dL 0.0-0.2 Above high normal Bilirubin,di rect [place] ([facility]) total protein 6.8 gm/dL 6.4-8.2 normal Total Protein [place] ( [facility]) albumin 3.5 gm/dL 3.2-5.2 normal Albumin [place] ([facility]) albumin/globulin ratio 1.2-2.2 Below low normal Albumin /globulin Ratio [place] ([facility]) ID Date Data Source [id number] 09/05/2020 11:04:00 AM EST [place] ([facility]) Name Value Range Interpretation Code Description Data Julia rce(s) Supporting Document(s) sodium,random urine 12 mEq/L normal Sodium,random Ur ine [place] ([facility]) ID Date Data Source [id number] 09/05/2020 11:04:00 AM EST [place] ([facility]) Name Value Range Interpretation Code Description Data Julia rce(s) Supporting Document(s) creatinine,random urine 142.0 mg/dL normal Creatinine, random Urine [place] ([facility]) ID Date Data Source [id number] 09/05/2020 11:04:00 AM EST [place] ([facility]) Name Value Range Interpretation Code Description Data Julia rce(s) Supporting Document(s) prothrombin time 20.0 seconds 12.5-14.3 Above high normal Prothrombi n Time [place] ([facility]) INR normal Inr [place] ([facility]) partial thromboplastin time 40.3 seconds 24.2-38.5 Above high no rmal Partial Thromboplastin Time [place] ([facility]) ID Date Data Source [id number] 09/05/2020 11:04:00 AM EST [place] ([facility]) Name Value Range Interpretation Code Description Data Julia rce(s) Supporting Document(s) white blood count 7.3 10 4.0-10.0 normal White Blood Count [place] ([facility]) red blood count 3.39 10 4.00-5.40 Below low normal Red Blood Coun t [place] ([facility]) hemoglobin 10.8 g/dL 12.0-15.5 Below low normal Hemoglobin [place] ( [facility]) mean corpuscular volume 90.6 fL 80.0-96.0 normal Mean Corpusc ular Volume [place] ([facility]) hematocrit 30.7 % 36.0-47.0 Below low normal Hematocrit [place] ( [facility]) mean corpuscular hemoglobin 31.9 pg 27.0-33.0 normal Mean Corpuscular Hemoglobin [place] ([facility]) mean corpuscular HGB conc 35.2 g/dL 32.0-36.5 normal Mean Corpu scular HGB Conc [place] ([facility]) red cell distribution width 18.1 % 11.5-14.5 Above high no rmal Red Cell Distribution Width [place] ([facility]) platelet count, automated 141 10 150-450 Below low denice l Platelet Count, Automated [place] ([facility]) neutrophils % 70.7 % 36.0-66.0 Above high normal Neutrophils % A [place] ([facility]) lymph % 12.1 % 24.0-44.0 Below low normal Lymph % [place] ( [facility]) mono % 14.9 % 0.0-5.0 Above high normal [place] % [place] ([facility]) baso % 0.6 % 0.0-1.0 normal Baso % [place] ([facility]) eos % 1.1 % 0.0-3.0 normal Eos % [place] ([facility]) immature granulocyte % 0.6 % 0-3.0 normal Immature Gran ulocyte % [place] ([facility]) nucleated red blood cell % 0.0 % 0-0 normal Nucleated Red Blood Cell % [place] ([facility]) lymph # 0.9 10 1.5-5.0 Below low normal Lymph # [place] ( [facility]) neutrophils # 5.1 10 1.5-8.5 normal Neutrophils # [place] ( [facility]) mono # 1.1 10 0.0-0.8 Above high normal [place] # [place] ([facility]) baso # 0.0 10 0.0-0.2 normal Baso # [place] ([facility]) eos # 0.1 10 0.0-0.5 normal Eos # [place] ([facility]) ID Date Data Source [id number] 09/05/2020 11:04:00 AM EST [place] ([facility]) Name Value Range Interpretation Code Description Data Julia rce(s) Supporting Document(s) glucose, fasting 109 mg/dL 70-100 Above high normal Glucose, Fas ting [place] ([facility]) creatinine for GFR 1.52 mg/dL 0.55-1.30 Above high normal Creatinine for GFR [place] ([facility]) blood urea nitrogen 27 mg/dL 7-18 Above high normal Blood Ure a Nitrogen [place] ([facility]) sodium level 130 mEq/L 136-145 Below low normal Sodium Level ATHE NA ([facility]) glomerular filtration rate >51 Below low normal Deidra merular Filtration Rate [place] ([facility]) potassium serum 3.9 mEq/L 3.5-5.1 normal Potassium Serum ATHE NA ([facility]) chloride level 93 mEq/L 98-107 Below low normal Chloride Level [place] ([facility]) carbon dioxide level 29 mEq/L 21-32 normal Carbon Dioxide Level [place] ([facility]) anion gap 8 mEq/L 8-16 normal Anion Gap [place] ([facility]) calcium level 9.4 mg/dL 8.5-10.1 normal Calcium Level [place] ( [facility]) ID Date Data Source [id number] 09/05/2020 11:04:00 AM EST [place] ([facility]) Name Value Range Interpretation Code Description Data Julia rce(s) Supporting Document(s) ALT/SGPT 26 U/L 12-78 normal ALT/SGPT [place] ([facility]) AST/SGOT 50 U/L 7-37 Above high normal AST/SGOT [place] ([facility]) bilirubin,total 4.3 mg/dL 0.2-1.0 Above high normal Bilirubin,tot al [place] ([facility]) alkaline phosphatase 184 U/L 45-117 Above high normal Alkaline Phosphatase [place] ([facility]) bilirubin,direct 1.7 mg/dL 0.0-0.2 Above high normal Bilirubin,di rect [place] ([facility]) total protein 6.8 gm/dL 6.4-8.2 normal Total Protein [place] ( [facility]) albumin/globulin ratio 1.2-2.2 Below low normal Albumin /globulin Ratio [place] ([facility]) albumin 3.5 gm/dL 3.2-5.2 normal Albumin [place] ([facility]) ID Date Data Source [id number] 09/05/2020 11:04:00 AM EST [place] ([facility]) Name Value Range Interpretation Code Description Data Julia rce(s) Supporting Document(s) sodium,random urine 12 mEq/L normal Sodium,random Ur ine [place] ([facility]) ID Date Data Source [id number] 09/05/2020 11:04:00 AM EST [place] ([facility]) Name Value Range Interpretation Code Description Data Julia rce(s) Supporting Document(s) creatinine,random urine 142.0 mg/dL normal Creatinine, random Urine [place] ([facility]) ID Date Data Source [id number] 09/05/2020 11:04:00 AM EST [place] ([facility]) Name Value Range Interpretation Code Description Data Julia rce(s) Supporting Document(s) prothrombin time 20.0 seconds 12.5-14.3 Above high normal Prothrombi n Time [place] ([facility]) INR normal Inr [place] ([facility]) partial thromboplastin time 40.3 seconds 24.2-38.5 Above high no rmal Partial Thromboplastin Time [place] ([facility]) ID Date Data Source [id number] 09/05/2020 11:04:00 AM EST [place] ([facility]) Name Value Range Interpretation Code Description Data Julia rce(s) Supporting Document(s) white blood count 7.3 10 4.0-10.0 normal White Blood Count [place] ([facility]) red blood count 3.39 10 4.00-5.40 Below low normal Red Blood Coun t [place] ([facility]) hematocrit 30.7 % 36.0-47.0 Below low normal Hematocrit [place] ( [facility]) hemoglobin 10.8 g/dL 12.0-15.5 Below low normal Hemoglobin [place] ( [facility]) mean corpuscular hemoglobin 31.9 pg 27.0-33.0 normal Mean Corpuscular Hemoglobin [place] ([facility]) mean corpuscular volume 90.6 fL 80.0-96.0 normal Mean Corpusc ular Volume [place] ([facility]) red cell distribution width 18.1 % 11.5-14.5 Above high no rmal Red Cell Distribution Width [place] ([facility]) mean corpuscular HGB conc 35.2 g/dL 32.0-36.5 normal Mean Corpu scular HGB Conc [place] ([facility]) platelet count, automated 141 10 150-450 Below low denice l Platelet Count, Automated [place] ([facility]) neutrophils % 70.7 % 36.0-66.0 Above high normal Neutrophils % A [place] ([facility]) lymph % 12.1 % 24.0-44.0 Below low normal Lymph % [place] ( [facility]) mono % 14.9 % 0.0-5.0 Above high normal [place] % [place] ([facility]) baso % 0.6 % 0.0-1.0 normal Baso % [place] ([facility]) eos % 1.1 % 0.0-3.0 normal Eos % [place] ([facility]) immature granulocyte % 0.6 % 0-3.0 normal Immature Gran ulocyte % [place] ([facility]) neutrophils # 5.1 10 1.5-8.5 normal Neutrophils # [place] ( [facility]) nucleated red blood cell % 0.0 % 0-0 normal Nucleated Red Blood Cell % [place] ([facility]) lymph # 0.9 10 1.5-5.0 Below low normal Lymph # [place] ( [facility]) mono # 1.1 10 0.0-0.8 Above high normal [place] # [place] ([facility]) baso # 0.0 10 0.0-0.2 normal Baso # [place] ([facility]) eos # 0.1 10 0.0-0.5 normal Eos # [place] ([facility]) ID Date Data Source [id number] 09/05/2020 11:04:00 AM EST [place] ([facility]) Name Value Range Interpretation Code Description Data Julia rce(s) Supporting Document(s) blood urea nitrogen 27 mg/dL 7-18 Above high normal Blood Ure a Nitrogen [place] ([facility]) glucose, fasting 109 mg/dL 70-100 Above high normal Glucose, Fas ting [place] ([facility]) glomerular filtration rate >51 Below low normal [place] merular Filtration Rate [place] ([facility]) creatinine for GFR 1.52 mg/dL 0.55-1.30 Above high normal Creatinine for GFR [place] ([facility]) sodium level 130 mEq/L 136-145 Below low normal Sodium Level ATHE NA ([facility]) potassium serum 3.9 mEq/L 3.5-5.1 normal Potassium Serum ATH NA ([facility]) chloride level 93 mEq/L 98-107 Below low normal Chloride Level [place] ([facility]) carbon dioxide level 29 mEq/L 21-32 normal Carbon Dioxide Level [place] ([facility]) anion gap 8 mEq/L 8-16 normal Anion Gap [place] ([facility]) calcium level 9.4 mg/dL 8.5-10.1 normal Calcium Level [place] ( [facility]) ID Date Data Source [id number] 09/05/2020 11:04:00 AM EST [place] ([facility]) Name Value Range Interpretation Code Description Data Julia rce(s) Supporting Document(s) AST/SGOT 50 U/L 7-37 Above high normal AST/SGOT [place] ([facility]) ALT/SGPT 26 U/L 12-78 normal ALT/SGPT [place] ([facility]) bilirubin,total 4.3 mg/dL 0.2-1.0 Above high normal Bilirubin,tot al [place] ([facility]) alkaline phosphatase 184 U/L 45-117 Above high normal Alkaline Phosphatase [place] ([facility]) bilirubin,direct 1.7 mg/dL 0.0-0.2 Above high normal Bilirubin,di rect [place] ([facility]) total protein 6.8 gm/dL 6.4-8.2 normal Total Protein [place] ( [facility]) albumin 3.5 gm/dL 3.2-5.2 normal Albumin [place] ([facility]) albumin/globulin ratio 1.2-2.2 Below low normal Albumin /globulin Ratio [place] ([facility]) ID Date Data Source [id number] 09/05/2020 11:04:00 AM EST [place] ([facility]) Name Value Range Interpretation Code Description Data Julia rce(s) Supporting Document(s) sodium,random urine 12 mEq/L normal Sodium,random Ur ine [place] ([facility]) ID Date Data Source [id number] 09/05/2020 11:04:00 AM EST [place] ([facility]) Name Value Range Interpretation Code Description Data Julia rce(s) Supporting Document(s) creatinine,random urine 142.0 mg/dL normal Creatinine, random Urine [place] ([facility]) ID Date Data Source [id number] 09/05/2020 11:04:00 AM EST [place] ([facility]) Name Value Range Interpretation Code Description Data Julia rce(s) Supporting Document(s) prothrombin time 20.0 seconds 12.5-14.3 Above high normal Prothrombi n Time [place] ([facility]) INR normal Inr [place] ([facility]) partial thromboplastin time 40.3 seconds 24.2-38.5 Above high no rmal Partial Thromboplastin Time [place] ([facility]) ID Date Data Source [id number] 09/05/2020 11:04:00 AM EST [place] ([facility]) Name Value Range Interpretation Code Description Data Julia rce(s) Supporting Document(s) white blood count 7.3 10 4.0-10.0 normal White Blood Count [place] ([facility]) red blood count 3.39 10 4.00-5.40 Below low normal Red Blood Coun t [place] ([facility]) hemoglobin 10.8 g/dL 12.0-15.5 Below low normal Hemoglobin [place] ( [facility]) mean corpuscular volume 90.6 fL 80.0-96.0 normal Mean Corpusc ular Volume [place] ([facility]) hematocrit 30.7 % 36.0-47.0 Below low normal Hematocrit [place] ( [facility]) mean corpuscular hemoglobin 31.9 pg 27.0-33.0 normal Mean Corpuscular Hemoglobin [place] ([facility]) mean corpuscular HGB conc 35.2 g/dL 32.0-36.5 normal Mean Corpu scular HGB Conc [place] ([facility]) red cell distribution width 18.1 % 11.5-14.5 Above high no rmal Red Cell Distribution Width [place] ([facility]) platelet count, automated 141 10 150-450 Below low denice l Platelet Count, Automated [place] ([facility]) neutrophils % 70.7 % 36.0-66.0 Above high normal Neutrophils % A [place] ([facility]) lymph % 12.1 % 24.0-44.0 Below low normal Lymph % [place] ( [facility]) mono % 14.9 % 0.0-5.0 Above high normal [place] % [place] ([facility]) eos % 1.1 % 0.0-3.0 normal Eos % [place] ([facility]) baso % 0.6 % 0.0-1.0 normal Baso % [place] ([facility]) immature granulocyte % 0.6 % 0-3.0 normal Immature Gran ulocyte % [place] ([facility]) nucleated red blood cell % 0.0 % 0-0 normal Nucleated Red Blood Cell % [place] ([facility]) neutrophils # 5.1 10 1.5-8.5 normal Neutrophils # [place] ( [facility]) lymph # 0.9 10 1.5-5.0 Below low normal Lymph # [place] ( [facility]) mono # 1.1 10 0.0-0.8 Above high normal [place] # [place] ([facility]) eos # 0.1 10 0.0-0.5 normal Eos # [place] ([facility]) baso # 0.0 10 0.0-0.2 normal Baso # [place] ([facility]) ID Date Data Source [id number] 09/05/2020 08:12:00 AM EST [place] ([facility]) Name Value Range Interpretation Code Description Data Julia rce(s) Supporting Document(s) albumin 25% transfused product: albumin 25% count: 4 Albumin 25% [place] ([facility]) ID Date Data Source [id number] 09/05/2020 08:12:00 AM EST [place] ([facility]) Name Value Range Interpretation Code Description Data Julia rce(s) Supporting Document(s) albumin 25% transfused product: albumin 25% count: 4 Albumin 25% [place] ([facility]) ID Date Data Source [id number] 09/05/2020 08:12:00 AM EST [place] ([facility]) Name Value Range Interpretation Code Description Data Julia rce(s) Supporting Document(s) albumin 25% transfused product: albumin 25% count: 4 Albumin 25% [place] ([facility]) ID Date Data Source [id number] 08/30/2020 12:20:00 PM EST [place] ([facility]) Name Value Range Interpretation Code Description Data Julia rce(s) Supporting Document(s) albumin, body fluid 0.8 g/dL not established normal Albumin, Julien dy Fluid [place] ([facility]) source, body fluid albumin ascites normal Source, B jamil Fluid Albumin [place] ([facility]) ID Date Data Source [id number] 08/30/2020 12:20:00 PM EST [place] ([facility]) Name Value Range Interpretation Code Description Data Julia rce(s) Supporting Document(s) total protein, body fluid 1.4 g/dL not established normal Total Protein, Body Fluid [place] ([facility]) source, body fluid tot protein ascites normal Sourc e, Body Fluid Tot Protein [place] ([facility]) ID Date Data Source [id number] 08/30/2020 12:20:00 PM EST [place] ([facility]) Name Value Range Interpretation Code Description Data Julia rce(s) Supporting Document(s) source, body fluid ascites normal Source, Body Flui d [place] ([facility]) ascites fL color yellow colorless normal Ascites fL Color AT [place] ([facility]) appearance, body fluid hazy clear normal Appearance, B jamil Fluid [place] ([facility]) WBC body fluid 98 /uL 0-10 Above high normal WBC Body Fluid [place] ([facility]) RBC body fluid < 2 <2 normal RBC Body Fluid [place] ([facility]) bf mononuclear cell % 96.9 % 0-0 Above high normal Bf [place] nuclear Cell % [place] ([facility]) bf polymorphonuclear cell % 3.1 % 0-0 Above high no rmal Bf Polymorphonuclear Cell % [place] ([facility]) ID Date Data Source [id number] 08/30/2020 12:20:00 PM EST [place] ([facility]) Name Value Range Interpretation Code Description Data Julia rce(s) Supporting Document(s) source, body fluid albumin ascites normal Source, B jamil Fluid Albumin [place] ([facility]) albumin, body fluid 0.8 g/dL not established normal Albumin, Julien dy Fluid [place] ([facility]) ID Date Data Source [id number] 08/30/2020 12:20:00 PM EST [place] ([facility]) Name Value Range Interpretation Code Description Data Julia rce(s) Supporting Document(s) total protein, body fluid 1.4 g/dL not established normal Total Protein, Body Fluid [place] ([facility]) source, body fluid tot protein ascites normal Sourc e, Body Fluid Tot Protein [place] ([facility]) ID Date Data Source [id number] 08/30/2020 12:20:00 PM EST [place] ([facility]) Name Value Range Interpretation Code Description Data Julia rce(s) Supporting Document(s) source, body fluid ascites normal Source, Body Flui d [place] ([facility]) ascites fL color yellow colorless normal Ascites fL Color AT [place] ([facility]) WBC body fluid 98 /uL 0-10 Above high normal WBC Body Fluid [place] ([facility]) appearance, body fluid hazy clear normal Appearance, B jamil Fluid [place] ([facility]) bf mononuclear cell % 96.9 % 0-0 Above high normal Bf [place] nuclear Cell % [place] ([facility]) RBC body fluid < 2 <2 normal RBC Body Fluid [place] ([facility]) bf polymorphonuclear cell % 3.1 % 0-0 Above high no rmal Bf Polymorphonuclear Cell % [place] ([facility]) ID Date Data Source [id number] 08/30/2020 12:20:00 PM EST [place] ([facility]) Name Value Range Interpretation Code Description Data Julia rce(s) Supporting Document(s) albumin, body fluid 0.8 g/dL not established normal Albumin, Julien dy Fluid [place] ([facility]) source, body fluid albumin ascites normal Source, B jamil Fluid Albumin [place] ([facility]) ID Date Data Source [id number] 08/30/2020 12:20:00 PM EST [place] ([facility]) Name Value Range Interpretation Code Description Data Julia rce(s) Supporting Document(s) total protein, body fluid 1.4 g/dL not established normal Total Protein, Body Fluid [place] ([facility]) source, body fluid tot protein ascites normal Sourc e, Body Fluid Tot Protein [place] ([facility]) ID Date Data Source [id number] 08/30/2020 12:20:00 PM EST [place] ([facility]) Name Value Range Interpretation Code Description Data Julia rce(s) Supporting Document(s) source, body fluid ascites normal Source, Body Flui d [place] ([facility]) ascites fL color yellow colorless normal Ascites fL Color AT [place] ([facility]) WBC body fluid 98 /uL 0-10 Above high normal WBC Body Fluid [place] ([facility]) appearance, body fluid hazy clear normal Appearance, B jamil Fluid [place] ([facility]) RBC body fluid < 2 <2 normal RBC Body Fluid [place] ([facility]) bf mononuclear cell % 96.9 % 0-0 Above high normal Bf [place] nuclear Cell % [place] ([facility]) bf polymorphonuclear cell % 3.1 % 0-0 Above high no rmal Bf Polymorphonuclear Cell % [place] ([facility]) ID Date Data Source [id number] 08/30/2020 09:07:00 AM EST [place] ([facility]) Name Value Range Interpretation Code Description Data Julia rce(s) Supporting Document(s) albumin 25% transfused product: albumin 25% count: 4 Albumin 25% [place] ([facility]) ID Date Data Source [id number] 08/30/2020 09:07:00 AM EST [place] ([facility]) Name Value Range Interpretation Code Description Data Julia rce(s) Supporting Document(s) albumin 25% transfused product: albumin 25% count: 4 Albumin 25% [place] ([facility]) ID Date Data Source [id number] 08/30/2020 09:07:00 AM EST [place] ([facility]) Name Value Range Interpretation Code Description Data Julia rce(s) Supporting Document(s) albumin 25% transfused product: albumin 25% count: 4 Albumin 25% [place] ([facility]) ID Date Data Source [id number] 08/23/2020 01:53:00 PM EST [place] ([facility]) Name Value Range Interpretation Code Description Data Julia rce(s) Supporting Document(s) albumin, body fluid 0.9 g/dL not established normal Albumin, Julien dy Fluid [place] ([facility]) source, body fluid albumin ascites normal Source, B jamil Fluid Albumin [place] ([facility]) ID Date Data Source [id number] 08/23/2020 01:53:00 PM EST [place] ([facility]) Name Value Range Interpretation Code Description Data Julia rce(s) Supporting Document(s) total protein, body fluid 1.4 g/dL not established normal Total Protein, Body Fluid [place] ([facility]) source, body fluid tot protein ascites normal Sourc e, Body Fluid Tot Protein [place] ([facility]) ID Date Data Source [id number] 08/23/2020 01:53:00 PM EST [place] ([facility]) Name Value Range Interpretation Code Description Data Julia rce(s) Supporting Document(s) source, body fluid ascites normal Source, Body Flui d [place] ([facility]) ascites fL color yellow colorless normal Ascites fL Color AT [place] ([facility]) WBC body fluid 160 /uL 0-10 Above high normal WBC Body Fluid [place] ([facility]) appearance, body fluid cloudy clear normal Appearance, B jamil Fluid [place] ([facility]) RBC body fluid 2 10 <2 normal RBC Body Fluid [place] ([facility]) bf mononuclear cell % 96.3 % 0-0 Above high normal Bf [place] nuclear Cell % [place] ([facility]) bf polymorphonuclear cell % 3.7 % 0-0 Above high no rmal Bf Polymorphonuclear Cell % [place] ([facility]) ID Date Data Source [id number] 08/23/2020 01:53:00 PM EST [facility]) Name Value Range Interpretation Code Description Data Julia rce(s) Supporting Document(s) albumin, body fluid 0.9 g/dL not established normal Albumin, Julien dy Fluid [place] ([facility]) source, body fluid albumin ascites normal Source, B jamil Fluid Albumin [place] ([facility]) ID Date Data Source [id number] 08/23/2020 01:53:00 PM EST [place] ([facility]) Name Value Range Interpretation Code Description Data Julia rce(s) Supporting Document(s) total protein, body fluid 1.4 g/dL not established normal Total Protein, Body Fluid [place] ([facility]) source, body fluid tot protein ascites normal Sourc e, Body Fluid Tot Protein [place] ([facility]) ID Date Data Source [id number] 08/23/2020 01:53:00 PM EST [place] ([facility]) Name Value Range Interpretation Code Description Data Julia rce(s) Supporting Document(s) source, body fluid ascites normal Source, Body Flui d [place] ([facility]) ascites fL color yellow colorless normal Ascites fL Color AT [place] ([facility]) appearance, body fluid cloudy clear normal Appearance, B jamil Fluid [place] ([facility]) WBC body fluid 160 /uL 0-10 Above high normal WBC Body Fluid [place] ([facility]) RBC body fluid 2 10 <2 normal RBC Body Fluid [place] ([facility]) bf polymorphonuclear cell % 3.7 % 0-0 Above high no rmal Bf Polymorphonuclear Cell % [place] ([facility]) bf mononuclear cell % 96.3 % 0-0 Above high normal Bf [place] nuclear Cell % [place] ([facility]) ID Date Data Source [id number] 08/23/2020 01:53:00 PM EST [place] ([facility]) Name Value Range Interpretation Code Description Data Julia rce(s) Supporting Document(s) source, body fluid albumin ascites normal Source, B jamil Fluid Albumin [place] ([facility]) albumin, body fluid 0.9 g/dL not established normal Albumin, Julien dy Fluid [place] ([facility]) ID Date Data Source [id number] 08/23/2020 01:53:00 PM EST [place] ([facility]) Name Value Range Interpretation Code Description Data Julia rce(s) Supporting Document(s) total protein, body fluid 1.4 g/dL not established normal Total Protein, Body Fluid [place] ([facility]) source, body fluid tot protein ascites normal Sourc e, Body Fluid Tot Protein [place] ([facility]) ID Date Data Source [id number] 08/23/2020 01:53:00 PM EST [place] ([facility]) Name Value Range Interpretation Code Description Data Julia rce(s) Supporting Document(s) source, body fluid ascites normal Source, Body Flui d [place] ([facility]) ascites fL color yellow colorless normal Ascites fL Color AT [place] ([facility]) WBC body fluid 160 /uL 0-10 Above high normal WBC Body Fluid [place] ([facility]) appearance, body fluid cloudy clear normal Appearance, B jamil Fluid [place] ([facility]) RBC body fluid 2 10 <2 normal RBC Body Fluid [place] ([facility]) bf mononuclear cell % 96.3 % 0-0 Above high normal Bf [place] nuclear Cell % [place] ([facility]) bf polymorphonuclear cell % 3.7 % 0-0 Above high no rmal Bf Polymorphonuclear Cell % [place] ([facility]) ID Date Data Source [id number] 08/23/2020 01:53:00 PM EST [place] ([facility]) Name Value Range Interpretation Code Description Data Julia rce(s) Supporting Document(s) albumin, body fluid 0.9 g/dL not established normal Albumin, Julien dy Fluid [place] ([facility]) source, body fluid albumin ascites normal Source, B jamil Fluid Albumin [place] ([facility]) ID Date Data Source [id number] 08/23/2020 01:53:00 PM EST [place] ([facility]) Name Value Range Interpretation Code Description Data Julia rce(s) Supporting Document(s) total protein, body fluid 1.4 g/dL not established normal Total Protein, Body Fluid [place] ([facility]) source, body fluid tot protein ascites normal Sourc e, Body Fluid Tot Protein [place] ([facility]) ID Date Data Source [id number] 08/23/2020 01:53:00 PM EST [place] ([facility]) Name Value Range Interpretation Code Description Data Julia rce(s) Supporting Document(s) source, body fluid ascites normal Source, Body Flui d [place] ([facility]) ascites fL color yellow colorless normal Ascites fL Color AT [place] ([facility]) appearance, body fluid cloudy clear normal Appearance, B jamil Fluid [place] ([facility]) WBC body fluid 160 /uL 0-10 Above high normal WBC Body Fluid [place] ([facility]) RBC body fluid 2 10 <2 normal RBC Body Fluid [place] ([facility]) bf mononuclear cell % 96.3 % 0-0 Above high normal Bf [place] nuclear Cell % [place] ([facility]) bf polymorphonuclear cell % 3.7 % 0-0 Above high no rmal Bf Polymorphonuclear Cell % [place] ([facility]) ID Date Data Source [id number] 08/23/2020 11:43:00 AM EST [place] ([facility]) Name Value Range Interpretation Code Description Data Julia rce(s) Supporting Document(s) albumin 25% transfused product: albumin 25% count: 4 Albumin 25% [place] ([facility]) ID Date Data Source [id number] 08/23/2020 11:43:00 AM EST [place] ([facility]) Name Value Range Interpretation Code Description Data Julia rce(s) Supporting Document(s) albumin 25% transfused product: albumin 25% count: 4 Albumin 25% [place] ([facility]) ID Date Data Source [id number] 08/23/2020 11:43:00 AM EST [place] ([facility]) Name Value Range Interpretation Code Description Data Julia rce(s) Supporting Document(s) albumin 25% transfused product: albumin 25% count: 4 Albumin 25% [place] ([facility]) ID Date Data Source [id number] 08/23/2020 11:43:00 AM EST [place] ([facility]) Name Value Range Interpretation Code Description Data Julia rce(s) Supporting Document(s) albumin 25% transfused product: albumin 25% count: 4 Albumin 25% [place] ([facility]) ID Date Data Source [id number] 08/16/2020 11:48:00 AM EST [place] ([facility]) Name Value Range Interpretation Code Description Data Julia rce(s) Supporting Document(s) Ab screen gel manual negative normal Ab Screen Gel M anual [place] ([facility]) ID Date Data Source [id number] 08/16/2020 11:48:00 AM EST [place] ([facility]) Name Value Range Interpretation Code Description Data Julia rce(s) Supporting Document(s) blood type A positive normal Blood Type [place] ([facility]) ID Date Data Source [id number] 08/16/2020 11:48:00 AM EST [place] ([facility]) Name Value Range Interpretation Code Description Data Julia rce(s) Supporting Document(s) glucose, fasting 110 mg/dL 70-100 Above high normal Glucose, Fas ting [place] ([facility]) blood urea nitrogen 29 mg/dL 7-18 Above high normal Blood Ure a Nitrogen [place] ([facility]) creatinine for GFR 1.03 mg/dL 0.55-1.30 normal Creatinine for GF R [place] ([facility]) glomerular filtration rate >51 normal Glomerula r Filtration Rate [place] ([facility]) potassium serum 5.0 mEq/L 3.5-5.1 normal Potassium Serum ATHE NA ([facility]) sodium level 128 mEq/L 136-145 Below low normal Sodium Level [place] NA ([facility]) chloride level 97 mEq/L 98-107 Below low normal Chloride Level [place] ([facility]) carbon dioxide level 25 mEq/L 21-32 normal Carbon Dioxide Level [place] ([facility]) calcium level 9.5 mg/dL 8.5-10.1 normal Calcium Level [place] ( [facility]) anion gap 6 mEq/L 8-16 Below low normal Anion Gap [place] ( [facility]) ID Date Data Source [id number] 08/16/2020 11:48:00 AM EST [place] ([facility]) Name Value Range Interpretation Code Description Data Julia rce(s) Supporting Document(s) prothrombin time 19.4 seconds 12.5-14.3 Above high normal Prothrombi n Time [place] ([facility]) partial thromboplastin time 39.9 seconds 24.2-38.5 Above high no rmal Partial Thromboplastin Time [place] ([facility]) INR normal Inr [place] ([facility]) ID Date Data Source [id number] 08/16/2020 11:48:00 AM EST [place] ([facility]) Name Value Range Interpretation Code Description Data Julia rce(s) Supporting Document(s) white blood count 6.8 10 4.0-10.0 normal White Blood Count [place] ([facility]) red blood count 3.49 10 4.00-5.40 Below low normal Red Blood Coun t [place] ([facility]) hematocrit 32.5 % 36.0-47.0 Below low normal Hematocrit [place] ( [facility]) hemoglobin 11.3 g/dL 12.0-15.5 Below low normal Hemoglobin [place] ( [facility]) mean corpuscular hemoglobin 32.4 pg 27.0-33.0 normal Mean Corpuscular Hemoglobin [place] ([facility]) mean corpuscular volume 93.1 fL 80.0-96.0 normal Mean Corpusc ular Volume [place] ([facility]) red cell distribution width 18.4 % 11.5-14.5 Above high no rmal Red Cell Distribution Width [place] ([facility]) mean corpuscular HGB conc 34.8 g/dL 32.0-36.5 normal Mean Corpu scular HGB Conc [place] ([facility]) platelet count, automated 138 10 150-450 Below low denice l Platelet Count, Automated [place] ([facility]) lymph % 11.3 % 24.0-44.0 Below low normal Lymph % [place] ( [facility]) neutrophils % 75.2 % 36.0-66.0 Above high normal Neutrophils % A [place] ([facility]) eos % 0.9 % 0.0-3.0 normal Eos % [place] ([facility]) mono % 11.6 % 0.0-5.0 Above high normal [place] % [place] ([facility]) nucleated red blood cell % 0.0 % 0-0 normal Nucleated Red Blood Cell % [place] ([facility]) immature granulocyte % 0.4 % 0-3.0 normal Immature Gran ulocyte % [place] ([facility]) baso % 0.6 % 0.0-1.0 normal Baso % [place] ([facility]) neutrophils # 5.1 10 1.5-8.5 normal Neutrophils # [place] ( [facility]) lymph # 0.8 10 1.5-5.0 Below low normal Lymph # [place] ( [facility]) mono # 0.8 10 0.0-0.8 normal [place] # [place] ([facility]) baso # 0.0 10 0.0-0.2 normal Baso # [place] ([facility]) eos # 0.1 10 0.0-0.5 normal Eos # [place] ([facility]) ID Date Data Source [id number] 08/16/2020 11:48:00 AM EST [place] ([facility]) Name Value Range Interpretation Code Description Data Julia rce(s) Supporting Document(s) Ab screen gel manual negative normal Ab Screen Gel M anual [place] ([facility]) ID Date Data Source [id number] 08/16/2020 11:48:00 AM EST [place] ([facility]) Name Value Range Interpretation Code Description Data Julia rce(s) Supporting Document(s) blood type A positive normal Blood Type [place] ([facility]) ID Date Data Source [id number] 08/16/2020 11:48:00 AM EST [place] ([facility]) Name Value Range Interpretation Code Description Data Julia rce(s) Supporting Document(s) glucose, fasting 110 mg/dL 70-100 Above high normal Glucose, Fas ting [place] ([facility]) creatinine for GFR 1.03 mg/dL 0.55-1.30 normal Creatinine for GF R [place] ([facility]) blood urea nitrogen 29 mg/dL 7-18 Above high normal Blood Ure a Nitrogen [place] ([facility]) glomerular filtration rate >51 normal Glomerula r Filtration Rate [place] ([facility]) sodium level 128 mEq/L 136-145 Below low normal Sodium Level ATHE NA ([facility]) chloride level 97 mEq/L 98-107 Below low normal Chloride Level [place] ([facility]) potassium serum 5.0 mEq/L 3.5-5.1 normal Potassium Serum [place] ([facility]) anion gap 6 mEq/L 8-16 Below low normal Anion Gap [place] ( [facility]) carbon dioxide level 25 mEq/L 21-32 normal Carbon Dioxide Level [place] ([facility]) calcium level 9.5 mg/dL 8.5-10.1 normal Calcium Level [place] ( [facility]) ID Date Data Source [id number] 08/16/2020 11:48:00 AM EST [place] ([facility]) Name Value Range Interpretation Code Description Data Julia rce(s) Supporting Document(s) prothrombin time 19.4 seconds 12.5-14.3 Above high normal Prothrombi n Time [place] ([facility]) partial thromboplastin time 39.9 seconds 24.2-38.5 Above high no rmal Partial Thromboplastin Time [place] ([facility]) INR normal Inr [place] ([facility]) ID Date Data Source [id number] 08/16/2020 11:48:00 AM EST [place] ([facility]) Name Value Range Interpretation Code Description Data Julia rce(s) Supporting Document(s) white blood count 6.8 10 4.0-10.0 normal White Blood Count [place] ([facility]) hematocrit 32.5 % 36.0-47.0 Below low normal Hematocrit [place] ( [facility]) red blood count 3.49 10 4.00-5.40 Below low normal Red Blood Coun t [place] ([facility]) hemoglobin 11.3 g/dL 12.0-15.5 Below low normal Hemoglobin [place] ( [facility]) mean corpuscular hemoglobin 32.4 pg 27.0-33.0 normal Mean Corpuscular Hemoglobin [place] ([facility]) mean corpuscular volume 93.1 fL 80.0-96.0 normal Mean Corpusc ular Volume [place] ([facility]) mean corpuscular HGB conc 34.8 g/dL 32.0-36.5 normal Mean Corpu scular HGB Conc [place] ([facility]) red cell distribution width 18.4 % 11.5-14.5 Above high no rmal Red Cell Distribution Width [place] ([facility]) platelet count, automated 138 10 150-450 Below low denice l Platelet [facility], [facility] neutrophils % 75.2 % 36.0-66.0 Above high normal Neutrophils % A THENA [facility]) lymph % 11.3 % 24.0-44.0 Below low normal Lymph % [facility]) mono % 11.6 % 0.0-5.0 Above high normal [place] % [facility] eos % 0.9 % 0.0-3.0 normal Eos % [place] ([facility]) baso % 0.6 % 0.0-1.0 normal Baso % [place] ([facility]) immature granulocyte % 0.4 % 0-3.0 normal Immature Gran ulocyte % [place] ([facility]) nucleated red blood cell % 0.0 % 0-0 normal Nucleated Red Blood Cell % [place] ([facility]) neutrophils # 5.1 10 1.5-8.5 normal Neutrophils # [place] ( [facility]) eos # 0.1 10 0.0-0.5 normal Eos # [place] ([facility]) mono # 0.8 10 0.0-0.8 normal [place] # [place] ([facility]) lymph # 0.8 10 1.5-5.0 Below low normal Lymph # [place] ( [facility]) baso # 0.0 10 0.0-0.2 normal Baso # [place] ([facility]) ID Date Data Source [id number] 08/16/2020 11:48:00 AM EST [place] ([facility]) Name Value Range Interpretation Code Description Data Julia rce(s) Supporting Document(s) Ab screen gel manual negative normal Ab Screen Gel M anual [place] ([facility]) ID Date Data Source [id number] 08/16/2020 11:48:00 AM EST [place] ([facility]) Name Value Range Interpretation Code Description Data Julia rce(s) Supporting Document(s) blood type A positive normal Blood Type [place] ([facility]) ID Date Data Source [id number] 08/16/2020 11:48:00 AM EST [place] ([facility]) Name Value Range Interpretation Code Description Data Julia rce(s) Supporting Document(s) glucose, fasting 110 mg/dL 70-100 Above high normal Glucose, Fas ting [place] ([facility]) blood urea nitrogen 29 mg/dL 7-18 Above high normal Blood Ure a Nitrogen [place] ([facility]) creatinine for GFR 1.03 mg/dL 0.55-1.30 normal Creatinine for GF R [place] ([facility]) glomerular filtration rate >51 normal Glomerula r Filtration Rate [place] ([facility]) sodium level 128 mEq/L 136-145 Below low normal Sodium Level ATHE [place] ([facility]) potassium serum 5.0 mEq/L 3.5-5.1 normal Potassium Serum [place] NA ([facility]) chloride level 97 mEq/L 98-107 Below low normal Chloride Level [place] ([facility]) carbon dioxide level 25 mEq/L 21-32 normal Carbon Dioxide Level [place] ([facility]) anion gap 6 mEq/L 8-16 Below low normal Anion Gap [place] ( [facility]) calcium level 9.5 mg/dL 8.5-10.1 normal Calcium Level [place] ( [facility]) ID Date Data Source [id number] 08/16/2020 11:48:00 AM EST [place] ([facility]) Name Value Range Interpretation Code Description Data Julia rce(s) Supporting Document(s) prothrombin time 19.4 seconds 12.5-14.3 Above high normal Prothrombi n Time [place] ([facility]) partial thromboplastin time 39.9 seconds 24.2-38.5 Above high no rmal Partial Thromboplastin Time [place] ([facility]) INR normal Inr [place] ([facility]) ID Date Data Source [id number] 08/16/2020 11:48:00 AM EST [place] ([facility]) Name Value Range Interpretation Code Description Data Julia rce(s) Supporting Document(s) white blood count 6.8 10 4.0-10.0 normal White Blood Count [place] ([facility]) hemoglobin 11.3 g/dL 12.0-15.5 Below low normal Hemoglobin [place] ( [facility]) red blood count 3.49 10 4.00-5.40 Below low normal Red Blood Coun t [place] ([facility]) hematocrit 32.5 % 36.0-47.0 Below low normal Hematocrit [place] ( [facility]) mean corpuscular volume 93.1 fL 80.0-96.0 normal Mean Corpusc ular Volume [place] ([facility]) mean corpuscular HGB conc 34.8 g/dL 32.0-36.5 normal Mean Corpu scular HGB Conc [place] ([facility]) mean corpuscular hemoglobin 32.4 pg 27.0-33.0 normal Mean Corpuscular Hemoglobin [place] ([facility]) red cell distribution width 18.4 % 11.5-14.5 Above high no rmal Red Cell Distribution Width [place] ([facility]) platelet count, automated 138 10 150-450 Below low denice l Platelet Count, Automated [place] ([facility]) neutrophils % 75.2 % 36.0-66.0 Above high normal Neutrophils % A THENA ([facility]) lymph % 11.3 % 24.0-44.0 Below low normal Lymph % [place] ( [facility]) eos % 0.9 % 0.0-3.0 normal Eos % [place] ([facility]) mono % 11.6 % 0.0-5.0 Above high normal [place] % [place] ([facility]) baso % 0.6 % 0.0-1.0 normal Baso % [place] ([facility]) immature granulocyte % 0.4 % 0-3.0 normal Immature Gran ulocyte % [place] ([facility]) nucleated red blood cell % 0.0 % 0-0 normal Nucleated Red Blood Cell % [place] ([facility]) neutrophils # 5.1 10 1.5-8.5 normal Neutrophils # [place] ( [facility]) lymph # 0.8 10 1.5-5.0 Below low normal Lymph # [place] ( [facility]) mono # 0.8 10 0.0-0.8 normal [place] # [place] ([facility]) eos # 0.1 10 0.0-0.5 normal Eos # [place] ([facility]) baso # 0.0 10 0.0-0.2 normal Baso # [place] ([facility]) ID Date Data Source [id number] 08/16/2020 11:48:00 AM EST [place] ([facility]) Name Value Range Interpretation Code Description Data Julia rce(s) Supporting Document(s) Ab screen gel manual negative normal Ab Screen Gel M anual [place] ([facility]) ID Date Data Source [id number] 08/16/2020 11:48:00 AM EST [place] ([facility]) Name Value Range Interpretation Code Description Data Julia rce(s) Supporting Document(s) blood type A positive normal Blood Type [place] ([facility]) ID Date Data Source [id number] 08/16/2020 11:48:00 AM EST [place] ([facility]) Name Value Range Interpretation Code Description Data Julia rce(s) Supporting Document(s) blood urea nitrogen 29 mg/dL 7-18 Above high normal Blood Ure a Nitrogen [place] ([facility]) glucose, fasting 110 mg/dL 70-100 Above high normal Glucose, Fas ting [place] ([facility]) creatinine for GFR 1.03 mg/dL 0.55-1.30 normal Creatinine for GF R [place] ([facility]) glomerular filtration rate >51 normal Glomerula r Filtration Rate [place] ([facility]) potassium serum 5.0 mEq/L 3.5-5.1 normal Potassium Serum ATH NA ([facility]) sodium level 128 mEq/L 136-145 Below low normal Sodium Level ATHE NA ([facility]) carbon dioxide level 25 mEq/L 21-32 normal Carbon Dioxide Level [place] ([facility]) chloride level 97 mEq/L 98-107 Below low normal Chloride Level [place] ([facility]) anion gap 6 mEq/L 8-16 Below low normal Anion Gap [place] ( [facility]) calcium level 9.5 mg/dL 8.5-10.1 normal Calcium Level [facility]) ID Date Data Source [id number] 08/16/2020 11:48:00 AM EST [place] ([facility]) Name Value Range Interpretation Code Description Data Julia rce(s) Supporting Document(s) prothrombin time 19.4 seconds 12.5-14.3 Above high normal Prothrombi n Time [place] ([facility]) INR normal Inr [place] ([facility]) partial thromboplastin time 39.9 seconds 24.2-38.5 Above high no rmal Partial Thromboplastin Time [place] ([facility]) ID Date Data Source [id number] 08/16/2020 11:48:00 AM EST [place] ([facility]) Name Value Range Interpretation Code Description Data Julia rce(s) Supporting Document(s) white blood count 6.8 10 4.0-10.0 normal White Blood Count [place] ([facility]) red blood count 3.49 10 4.00-5.40 Below low normal Red Blood Coun t [facility]) hemoglobin 11.3 g/dL 12.0-15.5 Below low normal Hemoglobin [place] ( [facility]) hematocrit 32.5 % 36.0-47.0 Below low normal Hematocrit [place] ( [facility]) mean corpuscular volume 93.1 fL 80.0-96.0 normal Mean Corpusc ular Volume [place] ([facility]) mean corpuscular hemoglobin 32.4 pg 27.0-33.0 normal Mean Corpuscular Hemoglobin [place] ([facility]) mean corpuscular HGB conc 34.8 g/dL 32.0-36.5 normal Mean Corpu scular HGB Conc [place] ([facility]) neutrophils % 75.2 % 36.0-66.0 Above high normal Neutrophils % A THENA ([facility]) platelet count, automated 138 10 150-450 Below low denice l Platelet Count, Automated [facility]) red cell distribution width 18.4 % 11.5-14.5 Above high no rmal Red Cell Distribution Width [place] ([facility]) lymph % 11.3 % 24.0-44.0 Below low normal Lymph % [place] ( [facility]) mono % 11.6 % 0.0-5.0 Above high normal [place] % [place] ([facility]) immature granulocyte % 0.4 % 0-3.0 normal Immature Gran ulocyte % [place] ([facility]) baso % 0.6 % 0.0-1.0 normal Baso % [place] ([facility]) eos % 0.9 % 0.0-3.0 normal Eos % [place] ([facility]) nucleated red blood cell % 0.0 % 0-0 normal Nucleated Red Blood Cell % [place] ([facility]) neutrophils # 5.1 10 1.5-8.5 normal Neutrophils # [place] ( [facility]) mono # 0.8 10 0.0-0.8 normal [place] # [place] ([facility]) eos # 0.1 10 0.0-0.5 normal Eos # [place] ([facility]) lymph # 0.8 10 1.5-5.0 Below low normal Lymph # [place] ( [facility]) baso # 0.0 10 0.0-0.2 normal Baso # [place] ([facility]) ID Date Data Source [id number] 08/16/2020 09:04:00 AM EST [place] ([facility]) Name Value Range Interpretation Code Description Data Julia rce(s) Supporting Document(s) albumin 25% transfused product: albumin 25% count: 4 Albumin 25% [place] ([facility]) ID Date Data Source [id number] 08/16/2020 09:04:00 AM EST [place] ([facility]) Name Value Range Interpretation Code Description Data Julia rce(s) Supporting Document(s) total protein, body fluid 1.4 g/dL not established normal Total Protein, Body Fluid [place] ([facility]) source, body fluid tot protein ascites normal Sourc e, Body Fluid Tot Protein [place] ([facility]) ID Date Data Source [id number] 08/16/2020 09:04:00 AM EST [place] ([facility]) Name Value Range Interpretation Code Description Data Julia rce(s) Supporting Document(s) ascites fL color yellow colorless normal Ascites fL Color AT NORY ([facility]) source, body fluid ascites normal Source, Body Flui d [place] ([facility]) WBC body fluid 163 /uL 0-10 Above high normal WBC Body Fluid [place] ([facility]) appearance, body fluid cloudy clear normal Appearance, B jamil Fluid [place] ([facility]) bf mononuclear cell % 97.6 % 0-0 Above high normal Bf [place] nuclear Cell % [place] ([facility]) RBC body fluid < 2 <2 normal RBC Body Fluid [place] ([facility]) bf polymorphonuclear cell % 2.4 % 0-0 Above high no rmal Bf Polymorphonuclear Cell % [place] ([facility]) ID Date Data Source [id number] 08/16/2020 09:04:00 AM EST [place] ([facility]) Name Value Range Interpretation Code Description Data Julia rce(s) Supporting Document(s) albumin, body fluid 0.7 g/dL not established normal Albumin, Julien dy Fluid [place] ([facility]) source, body fluid albumin ascites normal Source, B jamil Fluid Albumin [place] ([facility]) ID Date Data Source [id number] 08/16/2020 09:04:00 AM EST [place] ([facility]) Name Value Range Interpretation Code Description Data Julia rce(s) Supporting Document(s) albumin 25% transfused product: albumin 25% count: 4 Albumin 25% [place] ([facility]) ID Date Data Source [id number] 08/16/2020 09:04:00 AM EST [place] ([facility]) Name Value Range Interpretation Code Description Data Julia rce(s) Supporting Document(s) total protein, body fluid 1.4 g/dL not established normal Total Protein, Body Fluid [place] ([facility]) source, body fluid tot protein ascites normal Sourc e, Body Fluid Tot Protein [place] ([facility]) ID Date Data Source [id number] 08/16/2020 09:04:00 AM EST [place] ([facility]) Name Value Range Interpretation Code Description Data Julia rce(s) Supporting Document(s) source, body fluid ascites normal Source, Body Flui d [place] ([facility]) ascites fL color yellow colorless normal Ascites fL Color AT N[place] ([facility]) appearance, body fluid cloudy clear normal Appearance, B jamil Fluid [place] ([facility]) WBC body fluid 163 /uL 0-10 Above high normal WBC Body Fluid [place] ([facility]) bf mononuclear cell % 97.6 % 0-0 Above high normal Bf [place] nuclear Cell % [place] ([facility]) RBC body fluid < 2 <2 normal RBC Body Fluid [place] ([facility]) bf polymorphonuclear cell % 2.4 % 0-0 Above high no rmal Bf Polymorphonuclear Cell % [place] ([facility]) ID Date Data Source [id number] 08/16/2020 09:04:00 AM EST [place] ([facility]) Name Value Range Interpretation Code Description Data Julia rce(s) Supporting Document(s) albumin, body fluid 0.7 g/dL not established normal Albumin, Julien dy Fluid [place] ([facility]) source, body fluid albumin ascites normal Source, B jamil Fluid Albumin [place] ([facility]) ID Date Data Source [id number] 08/16/2020 09:04:00 AM EST [place] ([facility]) Name Value Range Interpretation Code Description Data Julia rce(s) Supporting Document(s) albumin 25% transfused product: albumin 25% count: 4 Albumin 25% [place] ([facility]) ID Date Data Source [id number] 08/16/2020 09:04:00 AM [place] ([facility]) Name Value Range Interpretation Code Description Data Julia rce(s) Supporting Document(s) total protein, body fluid 1.4 g/dL not established normal Total Protein, Body Fluid [place] ([facility]) source, body fluid tot protein ascites normal Sourc e, Body Fluid Tot Protein [place] ([facility]) ID Date Data Source [id number] 08/16/2020 09:04:00 AM EST [place] ([facility]) Name Value Range Interpretation Code Description Data Julia rce(s) Supporting Document(s) source, body fluid ascites normal Source, Body Flui d [place] ([facility]) ascites fL color yellow colorless normal Ascites fL Color AT [place] ([facility]) appearance, body fluid cloudy clear normal Appearance, B jamil Fluid [place] ([facility]) RBC body fluid < 2 <2 normal RBC Body Fluid [place] ([facility]) WBC body fluid 163 /uL 0-10 Above high normal WBC Body Fluid [place] ([facility]) bf polymorphonuclear cell % 2.4 % 0-0 Above high no rmal Bf Polymorphonuclear Cell % [place] ([facility]) bf mononuclear cell % 97.6 % 0-0 Above high normal Bf [place] nuclear Cell % [place] ([facility]) ID Date Data Source [id number] 08/16/2020 09:04:00 AM EST [place] ([facility]) Name Value Range Interpretation Code Description Data Julia rce(s) Supporting Document(s) albumin, body fluid 0.7 g/dL not established normal Albumin, Julien dy Fluid [place] ([facility]) source, body fluid albumin ascites normal Source, B [facility] Date Data Source [id number] 08/16/2020 09:04:00 AM EST [place] ([facility]) Name Value Range Interpretation Code Description Data Julia rce(s) Supporting Document(s) albumin 25% transfused product: albumin 25% count: 4 Albumin 25% [place] ([facility]) ID Date Data Source [id number] 08/16/2020 09:04:00 AM EST [place] ([facility]) Name Value Range Interpretation Code Description Data Julia rce(s) Supporting Document(s) total protein, body fluid 1.4 g/dL not established normal Total Protein, Body Fluid [place] ([facility]) source, body fluid tot protein ascites normal Sourc e, Body Fluid Tot Protein [place] ([facility]) ID Date Data Source [id number] 08/16/2020 09:04:00 AM EST [place] ([facility]) Name Value Range Interpretation Code Description Data Julia rce(s) Supporting Document(s) source, body fluid ascites normal Source, Body Flui d [place] ([facility]) ascites fL color yellow colorless normal Ascites fL Color AT [place] ([facility]) appearance, body fluid cloudy clear normal Appearance, B jamil Fluid [place] ([facility]) WBC body fluid 163 /uL 0-10 Above high normal WBC Body Fluid [place] ([facility]) bf mononuclear cell % 97.6 % 0-0 Above high normal Bf [place] nuclear Cell % [place] ([facility]) RBC body fluid < 2 <2 normal RBC Body Fluid [place] ([facility]) bf polymorphonuclear cell % 2.4 % 0-0 Above high no rmal Bf Polymorphonuclear Cell % [place] ([facility]) ID Date Data Source [id number] 08/16/2020 09:04:00 AM EST [place] ([facility]) Name Value Range Interpretation Code Description Data Julia rce(s) Supporting Document(s) albumin, body fluid 0.7 g/dL not established normal Albumin, Julien dy Fluid [place] ([facility]) source, body fluid albumin ascites normal Source, B jamil Fluid Albumin [place] ([facility]) ID Date Data Source [id number] 08/14/2020 04:00:00 PM EST [place] ([facility]) Name Value Range Interpretation Code Description Data Julia rce(s) Supporting Document(s) ID Date Data Source [id number] 08/14/2020 04:00:00 PM EST [place] ([facility]) Name Value Range Interpretation Code Description Data Julia rce(s) Supporting Document(s) ID Date Data Source [id number] 08/14/2020 04:00:00 PM EST [place] ([facility]) Name Value Range Interpretation Code Description Data Julia rce(s) Supporting Document(s) ID Date Data Source [id number] 08/14/2020 04:00:00 PM EST [place] ([facility]) Name Value Range Interpretation Code Description Data Julia rce(s) Supporting Document(s) ID Date Data Source [id number] 08/10/2020 07:19:00 AM EDT [facility]) Name Value Range Interpretation Code Description Data Julia rce(s) Supporting Document(s) glucose, fasting 130 mg/dL 70-100 Above high normal Glucose, Fas ting [place] ([facility]) creatinine for GFR 1.49 mg/dL 0.55-1.30 Above high normal Creatinine for GFR [place] ([facility]) blood urea nitrogen 34 mg/dL 7-18 Above high normal Blood Ure a Nitrogen [place] ([facility]) glomerular filtration rate >51 Below low normal Deidra merular Filtration Rate [place] ([facility]) sodium level 127 mEq/L 136-145 Below low normal Sodium Level ATHE NA ([facility]) potassium serum 5.3 mEq/L 3.5-5.1 Above high normal Potassium Ser um [place] ([facility]) chloride level 93 mEq/L 98-107 Below low normal Chloride Level [place] ([facility]) calcium level 9.1 mg/dL 8.5-10.1 normal Calcium Level [place] ( [facility]) carbon dioxide level 28 mEq/L 21-32 normal Carbon Dioxide Level [place] ([facility]) anion gap 6 mEq/L 8-16 Below low normal Anion Gap [place] ( [facility]) ID Date Data Source [id number] 08/10/2020 07:19:00 AM EDT [place] ([facility]) Name Value Range Interpretation Code Description Data Julia rce(s) Supporting Document(s) ALT/SGPT 30 U/L 12-78 normal ALT/SGPT [place] ([facility]) AST/SGOT 51 U/L 7-37 Above high normal AST/SGOT [place] ([facility]) alkaline phosphatase 136 U/L 45-117 Above high normal Alkaline Phosphatase [place] ([facility]) total protein 7.1 gm/dL 6.4-8.2 normal Total Protein [place] ( [facility]) bilirubin,direct 1.6 mg/dL 0.0-0.2 Above high normal Bilirubin,di rect [place] ([facility]) bilirubin,total 4.7 mg/dL 0.2-1.0 Above high normal Bilirubin,tot al [place] ([facility]) albumin/globulin ratio 1.2-2.2 normal Albumin/globu adam Ratio [place] ([facility]) albumin 3.8 gm/dL 3.2-5.2 normal Albumin [place] ([facility]) ID Date Data Source [id number] 08/10/2020 07:19:00 AM EDT [place] ([facility]) Name Value Range Interpretation Code Description Data Julia rce(s) Supporting Document(s) sodium,random urine 16 mEq/L normal Sodium,random Ur ine [place] ([facility]) ID Date Data Source [id number] 08/10/2020 07:19:00 AM EDT [place] ([facility]) Name Value Range Interpretation Code Description Data Julia rce(s) Supporting Document(s) creatinine,random urine 118.0 mg/dL normal Creatinine, random Urine [place] ([facility]) ID Date Data Source [id number] 08/10/2020 07:19:00 AM EDT [place] ([facility]) Name Value Range Interpretation Code Description Data Julia rce(s) Supporting Document(s) white blood count 8.6 10 4.0-10.0 normal White Blood Count [place] ([facility]) red blood count 3.14 10 4.00-5.40 Below low normal Red Blood Coun t [place] ([facility]) hematocrit 28.6 % 36.0-47.0 Below low normal Hematocrit [place] ( [facility]) hemoglobin 10.1 g/dL 12.0-15.5 Below low normal Hemoglobin [place] ( [facility]) mean corpuscular hemoglobin 32.2 pg 27.0-33.0 normal Mean Corpuscular Hemoglobin [place] ([facility]) mean corpuscular HGB conc 35.3 g/dL 32.0-36.5 normal Mean Corpu scular HGB Conc [place] ([facility]) mean corpuscular volume 91.1 fL 80.0-96.0 normal Mean Corpusc ular Volume [place] ([facility]) nucleated red blood cell % 0.0 % 0-0 normal Nucleated Red Blood Cell % [place] ([facility]) red cell distribution width 17.7 % 11.5-14.5 Above high no rmal Red Cell Distribution Width [place] ([facility]) platelet count, automated 118 10 150-450 Below low denice l Platelet Count, Automated [place] ([facility]) ID Date Data Source [id number] 08/10/2020 07:19:00 AM EDT [facility]) Name Value Range Interpretation Code Description Data Julia rce(s) Supporting Document(s) blood urea nitrogen 34 mg/dL 7-18 Above high normal Blood Ure a Nitrogen [place] ([facility]) glucose, fasting 130 mg/dL 70-100 Above high normal Glucose, Fas ting [place] ([facility]) creatinine for GFR 1.49 mg/dL 0.55-1.30 Above high normal Creatinine for GFR [place] ([facility]) glomerular filtration rate >51 Below low normal Deidra merular Filtration Rate [place] ([facility]) sodium level 127 mEq/L 136-145 Below low normal Sodium Level ATHE NA ([facility]) chloride level 93 mEq/L 98-107 Below low normal Chloride Level [place] ([facility]) anion gap 6 mEq/L 8-16 Below low normal Anion Gap [place] ( [facility]) potassium serum 5.3 mEq/L 3.5-5.1 Above high normal Potassium Ser um [place] ([facility]) carbon dioxide level 28 mEq/L 21-32 normal Carbon Dioxide Level [place] ([facility]) calcium level 9.1 mg/dL 8.5-10.1 normal Calcium Level [place] ( [facility]) ID Date Data Source [id number] 08/10/2020 07:19:00 AM EDT [place] ([facility]) Name Value Range Interpretation Code Description Data Julia rce(s) Supporting Document(s) AST/SGOT 51 U/L 7-37 Above high normal AST/SGOT [place] ([facility]) ALT/SGPT 30 U/L 12-78 normal ALT/SGPT [place] ([facility]) bilirubin,total 4.7 mg/dL 0.2-1.0 Above high normal Bilirubin,tot al [place] ([facility]) alkaline phosphatase 136 U/L 45-117 Above high normal Alkaline Phosphatase [place] ([facility]) albumin 3.8 gm/dL 3.2-5.2 normal Albumin [place] ([facility]) albumin/globulin ratio 1.2-2.2 normal Albumin/globu adam Ratio [place] ([facility]) bilirubin,direct 1.6 mg/dL 0.0-0.2 Above high normal Bilirubin,di rect [place] ([facility]) total protein 7.1 gm/dL 6.4-8.2 normal Total Protein [place] ( [facility]) ID Date Data Source [id number] 08/10/2020 07:19:00 AM EDT [place] ([facility]) Name Value Range Interpretation Code Description Data Julia rce(s) Supporting Document(s) sodium,random urine 16 mEq/L normal Sodium,random Ur ine [place] ([facility]) ID Date Data Source [id number] 08/10/2020 07:19:00 AM EDT [place] ([facility]) Name Value Range Interpretation Code Description Data Julia rce(s) Supporting Document(s) creatinine,random urine 118.0 mg/dL normal Creatinine, random Urine [place] ([facility]) ID Date Data Source [id number] 08/10/2020 07:19:00 AM EDT [place] ([facility]) Name Value Range Interpretation Code Description Data Julia rce(s) Supporting Document(s) red blood count 3.14 10 4.00-5.40 Below low normal Red Blood Coun t [place] ([facility]) white blood count 8.6 10 4.0-10.0 normal White Blood Count [facility]) hematocrit 28.6 % 36.0-47.0 Below low normal Hematocrit [place] ( [facility]) hemoglobin 10.1 g/dL 12.0-15.5 Below low normal Hemoglobin [place] ( [facility]) mean corpuscular hemoglobin 32.2 pg 27.0-33.0 normal Mean Corpuscular Hemoglobin [place] ([facility]) mean corpuscular volume 91.1 fL 80.0-96.0 normal Mean Corpusc ular Volume [place] ([facility]) platelet count, automated 118 10 150-450 Below low denice l Platelet Count, [facility]ated [facility] mean corpuscular HGB conc 35.3 g/dL 32.0-36.5 normal Mean Corpu scular HGB Conc [place] ([facility]) red cell distribution width 17.7 % 11.5-14.5 Above high no rmal Red Cell Distribution Width [place] ([facility]) nucleated red blood cell % 0.0 % 0-0 normal Nucleated Red Blood Cell % [place] ([facility]) ID Date Data Source [id number] 08/10/2020 07:19:00 AM EDT [place] ([facility]) Name Value Range Interpretation Code Description Data Julia rce(s) Supporting Document(s) glucose, fasting 130 mg/dL 70-100 Above high normal Glucose, Fas ting [place] ([facility]) blood urea nitrogen 34 mg/dL 7-18 Above high normal Blood Ure a Nitrogen [place] ([facility]) creatinine for GFR 1.49 mg/dL 0.55-1.30 Above high normal Creatinine for GFR [place] ([facility]) glomerular filtration rate >51 Below low normal Deidra merular Filtration Rate [place] ([facility]) sodium level 127 mEq/L 136-145 Below low normal Sodium Level ATHE NA ([facility]) potassium serum 5.3 mEq/L 3.5-5.1 Above high normal Potassium Ser um [place] ([facility]) chloride level 93 mEq/L 98-107 Below low normal Chloride Level [place] ([facility]) anion gap 6 mEq/L 8-16 Below low normal Anion Gap [place] ( [facility]) carbon dioxide level 28 mEq/L 21-32 normal Carbon Dioxide Level [place] ([facility]) calcium level 9.1 mg/dL 8.5-10.1 normal Calcium Level [place] ( [facility]) ID Date Data Source [id number] 08/10/2020 07:19:00 AM EDT [facility]) Name Value Range Interpretation Code Description Data Julia rce(s) Supporting Document(s) AST/SGOT 51 U/L 7-37 Above high normal AST/SGOT [facility] alkaline phosphatase 136 U/L 45-117 Above high normal Alkaline Phosphatase [place] ([facility]) ALT/SGPT 30 U/L 12-78 normal ALT/SGPT [place] ([facility]) bilirubin,direct 1.6 mg/dL 0.0-0.2 Above high normal Bilirubin,di rect [place] ([facility]) bilirubin,total 4.7 mg/dL 0.2-1.0 Above high normal Bilirubin,tot al [place] ([facility]) total protein 7.1 gm/dL 6.4-8.2 normal Total Protein [place] ( [facility]) albumin 3.8 gm/dL 3.2-5.2 normal Albumin [place] ([facility]) albumin/globulin ratio 1.2-2.2 normal Albumin/globu adam Ratio [place] ([facility]) ID Date Data Source [id number] 08/10/2020 07:19:00 AM EDT [facility]) Name Value Range Interpretation Code Description Data Julia rce(s) Supporting Document(s) sodium,random urine 16 mEq/L normal Sodium,random Ur ine [place] ([facility]) ID Date Data Source [id number] 08/10/2020 07:19:00 AM EDT [facility]) Name Value Range Interpretation Code Description Data Julia rce(s) Supporting Document(s) creatinine,random urine 118.0 mg/dL normal Creatinine, random Urine [place] ([facility]) ID Date Data Source [id number] 08/10/2020 07:19:00 AM EDT [facility]) Name Value Range Interpretation Code Description Data Julia rce(s) Supporting Document(s) white blood count 8.6 10 4.0-10.0 normal White Blood Count [place] ([facility]) hemoglobin 10.1 g/dL 12.0-15.5 Below low normal Hemoglobin [place] ( [facility]) red blood count 3.14 10 4.00-5.40 Below low normal Red Blood Coun t [place] ([facility]) mean corpuscular volume 91.1 fL 80.0-96.0 normal Mean Corpusc ular Volume [place] ([facility]) hematocrit 28.6 % 36.0-47.0 Below low normal Hematocrit [place] ( [facility]) mean corpuscular hemoglobin 32.2 pg 27.0-33.0 normal Mean Corpuscular Hemoglobin [place] ([facility]) mean corpuscular HGB conc 35.3 g/dL 32.0-36.5 normal Mean Corpu scular HGB Conc [place] ([facility]) red cell distribution width 17.7 % 11.5-14.5 Above high no rmal Red Cell Distribution Width [place] ([facility]) platelet count, automated 118 10 150-450 Below low denice l Platelet Count, Automated [place] ([facility]) nucleated red blood cell % 0.0 % 0-0 normal Nucleated Red Blood Cell % [place] ([facility]) ID Date Data Source [id number] 08/10/2020 07:19:00 AM EDT [place] ([facility]) Name Value Range Interpretation Code Description Data Julia rce(s) Supporting Document(s) glucose, fasting 130 mg/dL 70-100 Above high normal Glucose, Fas ting [place] ([facility]) blood urea nitrogen 34 mg/dL 7-18 Above high normal Blood Ure a Nitrogen [place] ([facility]) creatinine for GFR 1.49 mg/dL 0.55-1.30 Above high normal Creatinine for GFR [place] ([facility]) glomerular filtration rate >51 Below low normal Deidra merular Filtration Rate [place] ([facility]) carbon dioxide level 28 mEq/L 21-32 normal Carbon Dioxide Level [place] ([facility]) chloride level 93 mEq/L 98-107 Below low normal Chloride Level [place] ([facility]) sodium level 127 mEq/L 136-145 Below low normal Sodium Level ATHE NA ([facility]) potassium serum 5.3 mEq/L 3.5-5.1 Above high normal Potassium Ser um [place] ([facility]) anion gap 6 mEq/L 8-16 Below low normal Anion Gap [place] ( [facility]) calcium level 9.1 mg/dL 8.5-10.1 normal Calcium Level [place] ( [facility]) ID Date Data Source [id number] 08/10/2020 07:19:00 AM EDT [place] ([facility]) Name Value Range Interpretation Code Description Data Julia rce(s) Supporting Document(s) AST/SGOT 51 U/L 7-37 Above high normal AST/SGOT [place] ([facility]) ALT/SGPT 30 U/L 12-78 normal ALT/SGPT [place] ([facility]) bilirubin,total 4.7 mg/dL 0.2-1.0 Above high normal Bilirubin,tot al [place] ([facility]) alkaline phosphatase 136 U/L 45-117 Above high normal Alkaline Phosphatase [place] ([facility]) bilirubin,direct 1.6 mg/dL 0.0-0.2 Above high normal Bilirubin,di rect [place] ([facility]) albumin/globulin ratio 1.2-2.2 normal Albumin/globu adam Ratio [place] ([facility]) albumin 3.8 gm/dL 3.2-5.2 normal Albumin [place] ([facility]) total protein 7.1 gm/dL 6.4-8.2 normal Total Protein [place] ( [facility]) ID Date Data Source [id number] 08/10/2020 07:19:00 AM EDT [place] ([facility]) Name Value Range Interpretation Code Description Data Julia rce(s) Supporting Document(s) sodium,random urine 16 mEq/L normal Sodium,random Ur ine [place] ([facility]) ID Date Data Source [id number] 08/10/2020 07:19:00 AM EDT [place] ([facility]) Name Value Range Interpretation Code Description Data Julia rce(s) Supporting Document(s) creatinine,random urine 118.0 mg/dL normal Creatinine, random Urine [place] ([facility]) ID Date Data Source [id number] 08/10/2020 07:19:00 AM EDT [place] ([facility]) Name Value Range Interpretation Code Description Data Julia rce(s) Supporting Document(s) white blood count 8.6 10 4.0-10.0 normal White Blood Count [place] ([facility]) hemoglobin 10.1 g/dL 12.0-15.5 Below low normal Hemoglobin [place] ( [facility]) red blood count 3.14 10 4.00-5.40 Below low normal Red Blood Coun t [place] ([facility]) hematocrit 28.6 % 36.0-47.0 Below low normal Hematocrit [place] ( [facility]) mean corpuscular volume 91.1 fL 80.0-96.0 normal Mean Corpusc ular Volume [place] ([facility]) mean corpuscular hemoglobin 32.2 pg 27.0-33.0 normal Mean Corpuscular Hemoglobin [place] ([facility]) mean corpuscular HGB conc 35.3 g/dL 32.0-36.5 normal Mean Corpu scular HGB Conc [place] ([facility]) red cell distribution width 17.7 % 11.5-14.5 Above high no rmal Red Cell Distribution Width [place] ([facility]) platelet count, automated 118 10 150-450 Below low denice l Platelet Count, Automated [place] ([facility]) nucleated red blood cell % 0.0 % 0-0 normal Nucleated Red Blood Cell % [place] ([facility]) ID Date Data Source [id number] 08/09/2020 12:28:00 PM EDT [place] ([facility]) Name Value Range Interpretation Code Description Data Julia rce(s) Supporting Document(s) albumin, body fluid 0.7 g/dL not established normal Albumin, Julien dy Fluid [place] ([facility]) source, body fluid albumin ascites normal Source, B jamil Fluid Albumin [place] ([facility]) ID Date Data Source [id number] 08/09/2020 12:28:00 PM EDT [place] ([facility]) Name Value Range Interpretation Code Description Data Julia rce(s) Supporting Document(s) total protein, body fluid 1.3 g/dL not established normal Total Protein, Body Fluid [place] ([facility]) source, body fluid tot protein ascites normal Sourc e, Body Fluid Tot Protein [facility]) ID Date Data Source [id number] 08/09/2020 12:28:00 PM EDT [place] ([facility]) Name Value Range Interpretation Code Description Data Julia rce(s) Supporting Document(s) source, body fluid ascites normal Source, Body Flui d [facility]) appearance, body fluid cloudy clear normal Appearance, B jamil Fluid [place] ([facility]) ascites fL color yellow colorless normal Ascites fL Color AT [place] ([facility]) WBC body fluid 152 /uL 0-10 Above high normal WBC Body Fluid [place] ([facility]) bf mononuclear cell % 96.7 % 0-0 Above high normal Bf [place] nuclear Cell % [place] ([facility]) RBC body fluid 3 10 <2 normal RBC Body Fluid [place] ([facility]) bf polymorphonuclear cell % 3.3 % 0-0 Above high no rmal Bf Polymorphonuclear Cell % [place] ([facility]) ID Date Data Source [id number] 08/09/2020 12:28:00 PM EDT [place] ([facility]) Name Value Range Interpretation Code Description Data Julia rce(s) Supporting Document(s) source, body fluid ascites normal Source, Body Flui d [place] ([facility]) appearance, body fluid cloudy clear normal Appearance, B jamil Fluid [place] ([facility]) ascites fL color yellow colorless normal Ascites fL Color AT [place] ([facility]) WBC body fluid 152 /uL 0-10 Above high normal WBC Body Fluid [place] ([facility]) RBC body fluid 3 10 <2 normal RBC Body Fluid [place] ([facility]) bf polymorphonuclear cell % 3.3 % 0-0 Above high no rmal Bf Polymorphonuclear Cell % [place] ([facility]) bf mononuclear cell % 96.7 % 0-0 Above high normal Bf [place] nuclear Cell % [place] ([facility]) ID Date Data Source [id number] 08/09/2020 12:28:00 PM EDT [place] ([facility]) Name Value Range Interpretation Code Description Data Julia rce(s) Supporting Document(s) source, body fluid albumin ascites normal Source, B jamil Fluid Albumin [place] ([facility]) albumin, body fluid 0.7 g/dL not established normal Albumin, Julien dy Fluid [place] ([facility]) ID Date Data Source [id number] 08/09/2020 12:28:00 PM EDT [place] ([facility]) Name Value Range Interpretation Code Description Data Julia rce(s) Supporting Document(s) source, body fluid tot protein ascites normal Sourc e, Body Fluid Tot Protein [place] ([facility]) total protein, body fluid 1.3 g/dL not established normal Total Protein, Body Fluid [place] ([facility]) ID Date Data Source [id number] 08/09/2020 12:28:00 PM EDT [place] ([facility]) Name Value Range Interpretation Code Description Data Julia rce(s) Supporting Document(s) ascites fL color yellow colorless normal Ascites fL Color AT [place] ([facility]) source, body fluid ascites normal Source, Body Flui d [place] ([facility]) WBC body fluid 152 /uL 0-10 Above high normal WBC Body Fluid [place] ([facility]) appearance, body fluid cloudy clear normal Appearance, B jamil Fluid [place] ([facility]) RBC body fluid 3 10 <2 normal RBC Body Fluid [place] ([facility]) bf mononuclear cell % 96.7 % 0-0 Above high normal Bf [place] nuclear Cell % [place] ([facility]) bf polymorphonuclear cell % 3.3 % 0-0 Above high no rmal Bf Polymorphonuclear Cell % [place] ([facility]) ID Date Data Source [id number] 08/09/2020 12:28:00 PM EDT [facility]) Name Value Range Interpretation Code Description Data Julia rce(s) Supporting Document(s) albumin, body fluid 0.7 g/dL not established normal Albumin, Julien dy Fluid [place] ([facility]) source, body fluid albumin ascites normal Source, B jamil Fluid Albumin [facility]) ID Date Data Source [id number] 08/09/2020 12:28:00 PM EDT [facility]) Name Value Range Interpretation Code Description Data Julia rce(s) Supporting Document(s) source, body fluid tot protein ascites normal Sourc e, Body Fluid Tot Protein [place] ([facility]) total protein, body fluid 1.3 g/dL not established normal Total Protein, Body Fluid [facility]) ID Date Data Source [id number] 08/09/2020 12:28:00 PM EDT [facility]) Name Value Range Interpretation Code Description Data Julia rce(s) Supporting Document(s) ascites fL color yellow colorless normal Ascites fL Color AT [place] ([facility]) source, body fluid ascites normal Source, Body Flui d [place] ([facility]) RBC body fluid 3 10 <2 normal RBC Body Fluid [facility]) appearance, body fluid cloudy clear normal Appearance, B jamil Fluid [place] ([facility]) WBC body fluid 152 /uL 0-10 Above high normal WBC Body Fluid [place] ([facility]) bf polymorphonuclear cell % 3.3 % 0-0 Above high no rmal Bf Polymorphonuclear Cell % [place] ([facility]) bf mononuclear cell % 96.7 % 0-0 Above high normal Bf [place] nuclear Cell % [facility]) ID Date Data Source [id number] 08/09/2020 12:28:00 PM EDT [place] ([facility]) Name Value Range Interpretation Code Description Data Julia rce(s) Supporting Document(s) source, body fluid albumin ascites normal Source, B jamil Fluid Albumin [place] ([facility]) albumin, body fluid 0.7 g/dL not established normal Albumin, Julien dy Fluid [place] ([facility]) ID Date Data Source [id number] 08/09/2020 12:28:00 PM EDT [place] ([facility]) Name Value Range Interpretation Code Description Data Julia rce(s) Supporting Document(s) source, body fluid tot protein ascites normal Sourc e, Body Fluid Tot Protein [place] ([facility]) total protein, body fluid 1.3 g/dL not established normal Total Protein, Body Fluid [place] ([facility]) ID Date Data Source [id number] 08/09/2020 12:03:00 PM EDT [place] ([facility]) Name Value Range Interpretation Code Description Data Julia rce(s) Supporting Document(s) albumin 25% transfused product: albumin 25% count: 4 Albumin 25% [place] ([facility]) ID Date Data Source [id number] 08/09/2020 12:03:00 PM EDT [place] ([facility]) Name Value Range Interpretation Code Description Data Julia rce(s) Supporting Document(s) albumin 25% transfused product: albumin 25% count: 4 Albumin 25% [place] ([facility]) ID Date Data Source [id number] 08/09/2020 12:03:00 PM EDT [place] ([facility]) Name Value Range Interpretation Code Description Data Julia rce(s) Supporting Document(s) albumin 25% transfused product: albumin 25% count: 4 Albumin 25% [place] ([facility]) ID Date Data Source [id number] 08/09/2020 12:03:00 PM EDT [place] ([facility]) Name Value Range Interpretation Code Description Data Julia rce(s) Supporting Document(s) albumin 25% transfused product: albumin 25% count: 4 Albumin 25% [place] ([facility]) ID Date Data Source [id number] 08/02/2020 12:40:00 PM EDT [place] ([facility]) Name Value Range Interpretation Code Description Data Julia rce(s) Supporting Document(s) source, body fluid albumin ascites normal Source, B jamil Fluid Albumin [place] ([facility]) albumin, body fluid 0.7 g/dL not established normal Albumin, Julien dy Fluid [place] ([facility]) ID Date Data Source [id number] 08/02/2020 12:40:00 PM EDT [place] ([facility]) Name Value Range Interpretation Code Description Data Julia rce(s) Supporting Document(s) total protein, body fluid 1.2 g/dL not established normal Total Protein, Body Fluid [place] ([facility]) source, body fluid tot protein ascites normal Sourc e, Body Fluid Tot Protein [facility]) ID Date Data Source [id number] 08/02/2020 12:40:00 PM EDT [place] ([facility]) Name Value Range Interpretation Code Description Data Julia rce(s) Supporting Document(s) source, body fluid ascites normal Source, Body Flui d [place] ([facility]) WBC body fluid 149 /uL 0-10 Above high normal WBC Body Fluid [place] ([facility]) appearance, body fluid cloudy clear normal Appearance, B jamil Fluid [place] ([facility]) ascites fL color yellow colorless normal Ascites fL Color AT [place] ([facility]) bf mononuclear cell % 97.3 % 0-0 Above high normal Bf [place] nuclear Cell % [place] ([facility]) RBC body fluid < 2 <2 normal RBC Body Fluid [place] ([facility]) bf polymorphonuclear cell % 2.7 % 0-0 Above high no rmal Bf Polymorphonuclear Cell % [place] ([facility]) ID Date Data Source [id number] 08/02/2020 12:40:00 PM EDT [facility]) Name Value Range Interpretation Code Description Data Julia rce(s) Supporting Document(s) albumin, body fluid 0.7 g/dL not established normal Albumin, Julien dy Fluid [place] ([facility]) source, body fluid albumin ascites normal Source, B jamil Fluid Albumin [facility]) ID Date Data Source [id number] 08/02/2020 12:40:00 PM EDT [facility]) Name Value Range Interpretation Code Description Data Julia rce(s) Supporting Document(s) total protein, body fluid 1.2 g/dL not established normal Total Protein, Body Fluid [facility]) source, body fluid tot protein ascites normal Sourc e, Body Fluid Tot Protein [facility]) ID Date Data Source [id number] 08/02/2020 12:40:00 PM EDT [facility]) Name Value Range Interpretation Code Description Data Julia rce(s) Supporting Document(s) source, body fluid ascites normal Source, Body Flui d [place] ([facility]) ascites fL color yellow colorless normal Ascites fL Color [place] ([facility]) WBC body fluid 149 /uL 0-10 Above high normal WBC Body Fluid [facility]) appearance, body fluid cloudy clear normal Appearance, B jamil Fluid [place] ([facility]) bf mononuclear cell % 97.3 % 0-0 Above high normal Bf [place] nuclear Cell % [place] ([facility]) RBC body fluid < 2 <2 normal RBC Body Fluid [place] ([facility]) bf polymorphonuclear cell % 2.7 % 0-0 Above high no rmal Bf Polymorphonuclear Cell % [place] ([facility]) ID Date Data Source [id number] 08/02/2020 12:40:00 PM EDT [place] ([facility]) Name Value Range Interpretation Code Description Data Julia rce(s) Supporting Document(s) source, body fluid albumin ascites normal Source, B jamil Fluid Albumin [place] ([facility]) albumin, body fluid 0.7 g/dL not established normal Albumin, Julien dy Fluid [place] ([facility]) ID Date Data Source [id number] 08/02/2020 12:40:00 PM EDT [place] ([facility]) Name Value Range Interpretation Code Description Data Julia rce(s) Supporting Document(s) total protein, body fluid 1.2 g/dL not established normal Total Protein, Body Fluid [place] ([facility]) source, body fluid tot protein ascites normal Sourc e, Body Fluid Tot Protein [place] ([facility]) ID Date Data Source [id number] 08/02/2020 12:40:00 PM EDT [place] ([facility]) Name Value Range Interpretation Code Description Data Julia rce(s) Supporting Document(s) source, body fluid ascites normal Source, Body Flui d [place] ([facility]) appearance, body fluid cloudy clear normal Appearance, B jamil Fluid [place] ([facility]) WBC body fluid 149 /uL 0-10 Above high normal WBC Body Fluid [place] ([facility]) ascites fL color yellow colorless normal Ascites fL Color AT [place] ([facility]) bf mononuclear cell % 97.3 % 0-0 Above high normal Bf [place] nuclear Cell % [place] ([facility]) bf polymorphonuclear cell % 2.7 % 0-0 Above high no rmal Bf Polymorphonuclear Cell % [place] ([facility]) RBC body fluid < 2 <2 normal RBC Body Fluid [place] ([facility]) ID Date Data Source [id number] 08/02/2020 12:40:00 PM EDT [place] ([facility]) Name Value Range Interpretation Code Description Data Julia rce(s) Supporting Document(s) source, body fluid albumin ascites normal Source, B jamil Fluid Albumin [place] ([facility]) albumin, body fluid 0.7 g/dL not established normal Albumin, Julien dy Fluid [place] ([facility]) ID Date Data Source [id number] 08/02/2020 12:40:00 PM EDT [place] ([facility]) Name Value Range Interpretation Code Description Data Julia rce(s) Supporting Document(s) source, body fluid tot protein ascites normal Sourc e, Body Fluid Tot Protein [place] ([facility]) total protein, body fluid 1.2 g/dL not established normal Total Protein, Body Fluid [place] ([facility]) ID Date Data Source [id number] 08/02/2020 12:40:00 PM EDT [facility]) Name Value Range Interpretation Code Description Data Julia rce(s) Supporting Document(s) appearance, body fluid cloudy clear normal Appearance, B jamil Fluid [place] ([facility]) WBC body fluid 149 /uL 0-10 Above high normal WBC Body Fluid [place] ([facility]) ascites fL color yellow colorless normal Ascites fL Color [place] ([facility]) source, body fluid ascites normal Source, Body Flui d [place] ([facility]) bf mononuclear cell % 97.3 % 0-0 Above high normal Bf [place] nuclear Cell % [place] ([facility]) RBC body fluid < 2 <2 normal RBC Body Fluid [place] ([facility]) bf polymorphonuclear cell % 2.7 % 0-0 Above high no rmal Bf Polymorphonuclear Cell % [place] ([facility]) ID Date Data Source [id number] 08/02/2020 08:27:00 AM EDT [facility]) Name Value Range Interpretation Code Description Data Julia rce(s) Supporting Document(s) albumin 25% transfused product: albumin 25% count: 4 Albumin 25% [place] ([facility]) ID Date Data Source [id number] 08/02/2020 08:27:00 AM EDT [place] ([facility]) Name Value Range Interpretation Code Description Data Julia rce(s) Supporting Document(s) albumin 25% transfused product: albumin 25% count: 4 Albumin 25% [place] ([facility]) ID Date Data Source [id number] 08/02/2020 08:27:00 AM EDT [place] ([facility]) Name Value Range Interpretation Code Description Data Julia rce(s) Supporting Document(s) albumin 25% transfused product: albumin 25% count: 4 Albumin 25% [place] ([facility]) ID Date Data Source [id number] 08/02/2020 08:27:00 AM EDT [place] ([facility]) Name Value Range Interpretation Code Description Data Julia rce(s) Supporting Document(s) albumin 25% transfused product: albumin 25% count: 4 Albumin 25% [place] ([facility]) ID Date Data Source [id number] 06/28/2020 11:28:00 AM EDT [facility] Name Value Range Interpretation Code Description Data Julia rce(s) Supporting Document(s) HCT 32.4 % 36.0-47.0 L [facility] HGB 11.5 g/dL 12.0-15.5 L [facility] MCH 35.5 G/DL pg 32.0-36.5 N [facility] MCHC 35.1 PG % 27.0-33.0 H [facility] PLATELETS 137 10 10*3/mm3 150-450 L [facility] RBC 3.28 10 10*6/mm3 4.00-5.40 L [facility] RDW 16.4 % 11.5-14.5 H [facility] WBC TOTAL 7.2 4.0-10.0 N [facility] ID Date Data Source [id number] 06/28/2020 11:28:00 AM EDT [facility] Name Value Range Interpretation Code Description Data Julia rce(s) Supporting Document(s) BG FASTING 104 mg/dL 70-100 H [facility] ID Date Data Source [id number] 06/11/2020 09:54:18 AM EDT [facility] Measurements & CalculationsHeight: 61 inches (5 [...] or Preferred Language: EnglishFamily and Home Address: [address] [place] [address] What is your housing situation today? I have housing Are you worried about losing your housing? NoMoney and Resources In the past year, have you or any family members you live with been unable to get any of the following when it was really needed? Denies Insecurity: food, utilities, clothing, child welfare worker, phone, legal services, otherWithin the past [...] during this visit, including review of any ixfp-rzl-xoasmdk medications, herbal therapies, and/or supplements.Allergy ReviewAllergy List [...] adult medical examination with abnormal findings (ICD-V70.0) (TMR58-M83.01) Assessment: Instructions: Recommend annual medical appointments. Recommend routine dental and vision care. Recommend influenza vaccines annually and tetanus boosters every 10 years. Please call when you are ready to schedule mammogram and pap smear.Assessed:Alcoholic cirrhosis of liver with ascites (ICD-571.2) (ICD10- K70.31) Assessment: Instructions: Continue per GI.Edema of lower extremity (ICD-782.3) (WQQ55-M40.0) Assessment: Instructions: Stable with current medications. 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) (ODV33-I15.11) Assessment: Instructions: Continue remaining sober.Insomnia, unspecified (BRZ29-Y00.00) Assessment: Instructions: Stable with hydroxyzine 2 tablets at bedtime.Assessment not SavedEncounter for immunization ([id number]): Patient Instructions/Care Plan: Encounter for general adult [...] 2 tabs po qhsAllergies:RAMELTEON (RAMELTEON) (Severe)Orders:Preventive, Est, (40-64) [CPT- [id number]] Follow-Up Return to clinic: in 3 months for follow upAdditional Follow- Up: cirrhosisClinical Visit Summary Declined Name Value Range Interpretation Code Description Data Julia rce(s) Supporting Document(s) ID Date Data Source [id number] 05/10/2020 09:33:44 AM EDT [facility] Measurements & CalculationsHeight: 61 inches (5 [...] Diagnosis Recommendation: Major Depression Functional Impairment: Very DifficultToday's Follow-Up Action Depression follow-up done. Follow-Up [...] needed paracentesis through GI, states she calls [facility] when she feels her ascites [...] during this visit, including review of any ezxz-nce-zcnnyew medications, herbal therapies, and/or supplements.Allergy ReviewAllergy List [...] & Plan Problems:Added: Encounter for immunization (ICD-V05.9) ([id number])Assessed:Alcoholic cirrhosis of liver with ascites (ICD-571.2) (LPJ88-B26.31) Assessment: Instructions: Continue per Dr. Lechuga's office.Alcohol abuse, in remission (ICD-305.03) (ICD10- F10.11) Assessment: Instructions: Continue remaining sober.Edema of lower extremity (ICD-782.3) (IHZ14-J47.0) Assessment: Instructions: Resolved with current treatment.Insomnia, unspecified (GJC69-M83.00) Assessment: Adverse reaction with Ramelteon. Instructions: Start hydroxyzine as prescribed. Follow-up in 1 month. Call us with any concerns.Assessment not SavedEncounter for immunization ([id number]): Instructions: Shingrix sent to pharmacy.Patient Instructions/Care Plan: [...] 1 Method: ElectronicChanged:From: ORAL LACTULOSE SOLUTION Qty: [id number] To: LACTULOSE 10 GM/15ML ORAL SOLUTION-Take 15mLs per dose, 1-2 times daily (adjust dose to get at least 2 soft stools per day)From: ORAL FUROSEMIDE 40 MG ORAL TABLET Qty: [id number] To: FUROSEMIDE 40 MG ORAL TABLET-take 1.5 tablet in the morning and 1 tablet in the eveningFrom: ORAL SPIRONOLACTONE 50 MG ORAL TABLET Qty: [id number] To: SPIRONOLACTONE 50 MG ORAL TABLET-Take 3 tablets po QAM and 2 tablets po QPM (at least 10 hrs apart) dailyFrom: ORAL FOLIC ACID 1 MG ORAL TABLET Qty: [id number] To: FOLIC ACID 1 MG ORAL TABLET-take 1 tablet po dailyAllergies:RAMELTEON (RAMELTEON) (Severe)Information on new prescriptions provided to patient.Orders:Adult - Ofc Vst, EST, Level III [CPT-64635] Follow-Up Return to clinic: in 30 days for preventive care visitAdditional Follow-Up: annual PEClinical Visit Summary Completed Name Value Range Interpretation Code Description Data Julia rce(s) Supporting Document(s) ID Date Data Source [id number] 05/01/2020 12:00:00 PM JANETH THOMPSON ([facility], ) Name Value Range Interpretation Code Description Data Julia rce(s) Supporting Document(s) Sodium [Moles/volume] in Urine 11 meq/L N ormal (applies to non-numeric results) DONNA ([facility], ) <content>note:<nlbl:demographic_changed> </content>
<content></content> Creatinine [Mass/volume] in Urine 224.0 mg/dL Normal (applies to non-numeric results) [facility] ([facility]) <content>note:<nlbl:demographic_changed> </content>
<content></content> ID Date Data Source [id number] 05/01/2020 12:00:00 PM EDT [facility] ([facility]) Name Value Range Interpretation Code Description Data Julia rce(s) Supporting Document(s) Glucose, Fasting 110 mg/dL 70-100 Above high normal [facility] ([facility]) Blood Urea Nitrogen 11 mg/dL 7-18 Normal (applies to non-nume zora results) [facility] ([facility]) Creatinine For GFR 0.76 mg/dL 0.55-1.30 Normal (applies to non -numeric results) [facility] ([facility]) Potassium Serum 4.5 meq/L 3.5-5.1 Normal (applies to non-numeric results) [facility] ([facility]) Glomerular Filtration Rate Laboratory test result Normal (applies to non- numeric results) [facility]) <content>Units are mL/min/1.73 m2</content>
<content></content>
<content>Chronic Kidney Disease Staging per NKF:</content>
<content></content>
<content>Stage I & II GFR >=60 Normal to Mildly Decreased</content>
<content>Stage III GFR 30- 59 Moderately Decreased</content>
<content>Stage IV GFR 15-29 Severely Decreased</content>
<content>Stage V GFR <15 Very Little GFR Left</content>
<content>ESRD GFR <15 on [facility] [employer] [employer]</content>
<content></content> Sodium Level 132 meq/L 136-145 Below low normal [facility] ([facility]) Chloride Level 98 meq/L 98-107 Normal (applies to non-numeric r esults) [facility] ([facility]) Carbon Dioxide Level 32 meq/L 21-32 Normal (applies to non-num reynaldo results) [facility] ([facility]) Anion Gap 2 meq/L 8-16 Below low normal [facility] ( [facility]) Calcium Level 8.4 mg/dL 8.5-10.1 Below low normal [facility] ([facility]) ID Date Data Source [id number] 04/18/2020 12:25:00 PM EDT [facility] ([facility]) Name Value Range Interpretation Code Description Data Julia rce(s) Supporting Document(s) Gram Stain Laboratory test result Normal (applies to non-n umeric results) [facility] ([facility]) NO CELLS SEEN NO ORGANISMS SEEN Body Fluid Culture Laboratory test result Normal (applies to non-numeric results) [facility] ([facility]) FULL REPORT IN LAB NOTES ([facility] and [facility] ). ORGANISM 1: BACILLUS SP., NOT ANTHRACIS QUANTITY OF GROWTH MODERATE The majority of Bacillus species have little or no pathogenic potential (common environmental contaminant) and are rarely associated with disease in humans. ORGANISM 1: BACILLUS SP., NOT ANTHRACIS ID Date Data Source [id number] 04/18/2020 09:57:00 AM EDT [facility] ([facility]) Name Value Range Interpretation Code Description Data Julia rce(s) Supporting Document(s) Albumin 25% Laboratory test result [facility] ([facility]) TRANSFUSED PRODUCT: ALBUMIN 25% COUNT: 4 ID Date Data Source [id number] 04/18/2020 09:51:00 AM EDT [facility] ([facility]) Name Value Range Interpretation Code Description Data Julia rce(s) Supporting Document(s) Albumin, Body Fluid 0.3 g/dL Normal (applies to non-nume zora results) [facility] ([facility]) Source, Body Fluid Albumin Laboratory test result Normal (applies to non- numeric results) [facility] ([facility]) ID Date Data Source [id number] 04/18/2020 09:51:00 AM EDT [facility]) Name Value Range Interpretation Code Description Data Julia rce(s) Supporting Document(s) Source, Body Fluid Tot Protein Laboratory test result Normal (applies to non- numeric results) [facility] ([facility]) Total Protein, Body Fluid 0.9 g/dL Normal (applies to no n-numeric results) [facility] ([facility]) ID Date Data Source [id number] 04/18/2020 09:51:00 AM EDT [facility] ([facility]) Name Value Range Interpretation Code Description Data Julia rce(s) Supporting Document(s) Source, Body Fluid Laboratory test result Normal (applies to non-numeric results) [facility] ([facility]) Ascites FL Color Laboratory test result Normal ( applies to non-numeric results) [facility] ([facility]) WBC Body Fluid 94 /uL 0-10 Above high normal [facility] ([facility]) Appearance, Body Fluid Laboratory test result No rmal (applies to non-numeric results) [facility] ([facility]) BF Polymorphonuclear Cell % 10.7 % 0-0 Above high normal [facility] ([facility]) BF Mononuclear Cell % 89.3 % 0-0 Above high normal [facility] ([facility]) RBC Body Fluid Laboratory test result Normal (applies to non-numeric results) [facility] ([facility]) ID Date Data Source [id number] 04/11/2020 09:04:00 AM EDT [facility] ([facility]) Name Value Range Interpretation Code Description Data Julia rce(s) Supporting Document(s) Phosphate [Moles/volume] in Serum or Plasma 2.9 mg/dL 2.5- 4.9 Normal (applies to non-numeric results) [facility] ([facility] ) <content>note:<nlbl:demographic_changed> </content>
<content></content> Magnesium [Mass/volume] in Serum or Plasma 1.7 mg/dL 1.8-2.4 Belo w low normal [facility] ([facility]) <content>note:<nlbl:demographic_changed> </content>
<content></content> Sodium [Moles/volume] in Urine Laboratory test result Normal (applies to non- numeric results) [facility] ([facility]) <content>note:<nlbl:demographic_changed> </content>
<content></content> Creatinine [Mass/volume] in Urine 249.0 mg/dL Normal (applies to non-numeric results) [facility] ([facility]) <content>note:<nlbl:demographic_changed> </content>
<content></content> ID Date Data Source [id number] 04/11/2020 09:04:00 AM EDT [facility] ([facility]) Name Value Range Interpretation Code Description Data Julia rce(s) Supporting Document(s) Glucose, Fasting 111 mg/dL 70-100 Above high normal M [facility] ([facility]) Creatinine For GFR 0.80 mg/dL 0.55-1.30 Normal (applies to non -numeric results) [facility] ([facility]) Blood Urea Nitrogen 11 mg/dL 7-18 Normal (applies to non-nume zora results) [facility] ([facility]) Glomerular Filtration Rate Laboratory test result Normal (applies to non- numeric results) [facility]) <content>Units are mL/min/1.73 m2</content>
<content></content>
<content>Chronic Kidney Disease Staging per NKF:</content>
<content></content>
<content>Stage I & II GFR >=60 Normal to Mildly Decreased</content>
<content>Stage III GFR 30- 59 Moderately Decreased</content>
<content>Stage IV GFR 15-29 Severely Decreased</content>
<content>Stage V GFR <15 Very Little GFR Left</content>
<content>ESRD GFR <15 on [facility] [employer] [employer]</content>
<content></content> Sodium Level 130 meq/L 136-145 Below low normal [facility] ([facility]) Potassium Serum 4.0 meq/L 3.5-5.1 Normal (applies to non-numeric results) [facility] ([facility]) Anion Gap 6 meq/L 8-16 Below low normal [facility] ( [facility]) Carbon Dioxide Level 28 meq/L 21-32 Normal (applies to non-num reynaldo results) [facility] ([facility]) Chloride Level 96 meq/L 98-107 Below low normal [facility] ([facility]) Calcium Level 8.4 mg/dL 8.5-10.1 Below low normal [facility] ([facility]) ID Date Data Source [id number] 04/11/2020 09:04:00 AM EDT [facility] Name Value Range Interpretation Code Description Data Julia rce(s) Supporting Document(s) BG FASTING 111 mg/dL 70-100 [facility] ID Date Data Source [id number] 04/09/2020 09:33:58 AM EDT [facility] Measurements & CalculationsHeight: 61 inches 154.94 [...] presents for ER follow-up.Pt was seen at [facility] ER 04/05/2020 for ascites. Pt [...] during this visit, including review of any rvwb-wov-mviicyc medications, herbal therapies, and/or supplements.Allergy ReviewAllergy List [...] is? GoodAssessment & Plan Problems:Added: Insomnia, unspecified (GQJ82-B02.00) Assessment: Instructions: Monitor. Significant life adjustments with [...] Continue current medications.Alcohol abuse, in remission (ICD-305.03) (TGP33-A18.11) Assessment: Instructions: Continue remaining sober.Patient Instructions/Care Plan: [...] ORAL SPIRONOLACTONE 25 MG ORAL TABLET Qty: [id number] To: SPIRONOLACTONE 50 MG ORAL TABLET-Take 2 tablets po dailyFrom: ORAL LASIX 20 MG ORAL TABLET Qty: [id number] To: FUROSEMIDE 40 MG ORAL TABLET-take 1 tablet po BIDAllergies:No Known Allergies (updated 04/09/2020) Orders:Adult - Ofc Vst, EST, Level III [CPT-[id number]] Follow-Up Return to clinic: in 2 weeks for follow upClinical Visit Summary Declined Name Value Range Interpretation Code Description Data Julia rce(s) Supporting Document(s) ID Date Data Source [id number] 04/05/2020 08:41:00 AM EDT [facility] Name Value Range Interpretation Code Description Data Julia rce(s) Supporting Document(s) HCT 36.8 % 36.0-47.0 N [facility] HGB 13.1 g/dL 12.0-15.5 N [facility] MCH 35.6 G/DL pg 32.0-36.5 N [facility] MCHC 36.0 PG % 27.0-33.0 H [facility] PLATELETS 121 10 10*3/mm3 150-450 L [facility] RBC 3.64 10 10*6/mm3 4.00-5.40 L [facility] RDW 14.7 % 11.5-14.5 H [facility] WBC TOTAL 7.7 4.0-10.0 N [facility] ID Date Data Source [id number] 04/05/2020 08:41:00 AM EDT [facility] Name Value Range Interpretation Code Description Data Julia rce(s) Supporting Document(s) BG FASTING 98 mg/dL 70-100 N [facility] ID Date Data Source [id number] 03/27/2020 01:05:02 PM EDT [facility] Measurements & CalculationsHeight: 61 inches (5 [...] been [facility] to the hospital? [facility] liver failureHospital admission date reported today: 03/22/2020Have [...] for pain by an urgent care in [place], then over the next few weeks noted abdominal distention. She then went to another urgent care in [place] and was given a fluid pill and another unknown medication. A few weeks went by without i mprovement, so she went to [facility]. [place] the provider was rude so she left without testing. Then she moved from [facility] to [facility]. She was seen by [facility] outpatient, then was referred to [facility] but she waited a few days. Self presented to [facility] 03/17/2020, then was transferred to [facility] due to ascites. She was admitted to [facility] 03/17/2020-03/22/2020. Pt states she had [...] during this visit, including review of any qoek-wlv-ugxvyzo medications, herbal therapies, and/or supplements.Allergy ReviewAllergy List [...] PoorAssessment & Plan Problems:Added: Tobacco user (ICD-305.1) (MRR21-A81.200)Alcoholic cirrhosis of liver with ascites (ICD- 571.2) (MJQ63-I92.31) Assessment: Instructions: Severe ascites today despite medications. Recommend emergency room evaluation today, patient declines but agrees to report to [facility] ER by 0600 03/28/2020. Advised waiting was not the safest recommendation. Please call an ambulance for ANY change or worsening in symptoms.Edema of lower extremity (ICD-782.3) (QDM15-U06.0) Assessment: Instructions: Secondary to above. No medication adjustments due to immediate need for ER evalation with labs and further treatment.Alcohol abuse, in remission (ICD-305.03) (AAF64-S74.11) Assessment: Instructions: Will need outpatient treatment, after her medical conditions are more stabilized.Patient Instructions/Care Plan: Alcoholic cirrhosis of liver with ascites: Severe ascites today despite medications. Recommend emergency room evaluation today, patient declines but agrees to report to [facility] ER by 0600 03/28/2020. Advised [...] M20 20 MEQ ORAL TABLET EXTENDED RELEASELACTULOSE [id number] TABLET DELAYED RELEASELASIX 20 MG ORAL TABLETSPIRONOLACTONE 25 MG ORAL TABLETMUPIROCIN OINTMENTMedication Changes:Added: MUPIROCIN OINTMENT-bidSPIRONOLACTONE 25 MG ORAL TABLET-po dailyLASIX 20 MG ORAL TABLET-po [id number] TABLET DELAYED RELEASE-po bidLACTULOSE SOLUTION-30 ml po bidKLOR-CON M20 20 MEQ ORAL TABLET EXTENDED RELEASE-Take 1 tablet po dailyFOLIC ACID 1 MG ORAL TABLET-po dailyTHIAMINE HCL 100 MG ORAL TABLET-po dailyAllergies:No Known Allergies (updated 03/27/2020) Orders:Adult - Ofc Vst, EST, Level IV [[id number]] Follow-Up Return to clinic: as needed for follow upAdditional Follow-Up: ER follow-upClinical Visit Summary Completed Name Value Range Interpretation Code Description Data Julia rce(s) Supporting Document(s) ID Date Data Source [id number] 03/22/2020 05:54:00 AM EDT [facility] Name Value Range Interpretation Code Description Data Julia rce(s) Supporting Document(s) Sodium 135 mmol/L 137-145 Below low normal [facility] Potassium 3.5-5.1 Normal (applies to non-numeric resul ts) [facility] Chloride 102 mmol/L 98-112 Normal (applies to non-numeric resul ts) [facility] Carbon Dioxide CO2 22.0-33.0 Normal (applies to non-numer ic results) [facility] Anion Gap 4.0-11.0 Normal (applies to non-numeric resul ts) [facility] BUN 9 mg/dL 7-17 Normal (applies to non-numeric resul ts) [facility] Creatinine 0.70-1.20 Below low normal [facility] GFR >60 Normal (applies to non-numeric results) [facility] Result based on MDRD formula. Glucose Level 86 mg/dL 74-99 Normal (applies to non-numeric re sults) [facility] The reference range is only applicable w hen fasting. Calcium-Uncorrected 8.4-10.2 Below low normal [facility] Corrected Calcium 8.4-10.2 Normal (applies to non-numeri c results) [facility] Bilirubin,Total 0.2-1.3 Above high normal [facility] SGOT(AST) 91 U/L 14-36 Above high normal [facility] SGPT(ALT) 32 U/L 9-52 Normal (applies to non-numeric resul ts) [facility] Alkaline Phosphatase 120 U/L 38-126 Normal (applies to non-num reynaldo results) [facility] can increase Alkaline Phosp le vels up to 2 times the normal adult value. Normal values for children and adolescents are 2 to 3 times the normal adult value. Total Protein 6.3-8.2 Normal (applies to non-numeric re sults) [facility] Albumin 3.5-5.0 Below low normal [facility] ID Date Data Source [id number] 03/22/2020 05:54:00 AM EDT [facility] Name Value Range Interpretation Code Description Data Julia rce(s) Supporting Document(s) Bilirubin,Direct 0.0-0.3 Above high normal [facility] ID Date Data Source [id number] 03/22/2020 05:22:00 AM EDT [facility] Name Value Range Interpretation Code Description Data Julia rce(s) Supporting Document(s) White Blood Count 4.8-10.8 Normal (applies to non-numeri c results) [facility] Red Blood Count 3.68-5.22 Below low normal [facility] Hemoglobin 11.2-15.7 Normal (applies to non-numeric resul ts) [facility] Hematocrit 34.1-44.9 Normal (applies to non-numeric resul ts) [facility] Mean Corpuscular Volume 81-99 Above high normal [facility] Mean Corpuscular Hemoglobin 27.0-33.0 Above high normal [facility] Mean Corpuscular HGB Conc 32.0-36.0 Normal (applies to no n-numeric results) [facility] Red Cell Distribution Width 11.5-14.5 Above high normal [facility] Platelet Count 99 X10 3/uL 130-450 Below low normal [facility] Mean Platelet Volume 9.5-12.7 Normal (applies to non-num reynaldo results) [facility] Imm Grans% (AUTO) 0 % 0-2 Normal (applies to non-numeri c results) [facility] Neutrophils % (AUTO) 64 % 40-75 Normal (applies to non-num reynaldo results) [facility] Lymphocytes % (AUTO) 19 % 21-46 Below low normal [facility] Monocytes % (AUTO) 14 % 5-12 Above high normal [facility] Eosinophils % (AUTO) 3 % 1-5 Normal (applies to non-num reynaldo results) [facility] Basophils % (AUTO) 1 % 0-1 Normal (applies to non-numer ic results) [facility] Imm Grans# (AUTO) 0.0-0.5 Normal (applies to non-numeri c results) [facility] Neutrophils # (AUTO) 1.5-8.1 Normal (applies to non-num reynaldo results) [facility] Lymphocytes # (AUTO) 1.0-3.1 Normal (applies to non-num reynaldo results) [facility] Monocytes # (AUTO) 0.2-1.3 Normal (applies to non-numer ic results) [facility] Eosinophils# (AUTO) 0.0-0.5 Normal (applies to non-nume zora results) [facility] Basophils # (AUTO) 0.0-0.1 Normal (applies to non-numer ic results) [facility] ID Date Data Source [id number] 03/21/2020 10:18:00 AM EDT [facility] Name Value Range Interpretation Code Description Data Julia rce(s) Supporting Document(s) Sodium 134 mmol/L 137-145 Below low normal [facility] Potassium 3.5-5.1 Normal (applies to non-numeric resul ts) [facility] Chloride 101 mmol/L 98-112 Normal (applies to non-numeric resul ts) [facility] Carbon Dioxide CO2 22.0-33.0 Normal (applies to non-numer ic results) [facility] Anion Gap 4.0-11.0 Below low normal [facility] BUN 9 mg/dL 7-17 Normal (applies to non-numeric resul ts) [facility] Creatinine 0.70-1.20 Below low normal [facility] GFR >60 Normal (applies to non-numeric results) [facility] Result based on MDRD formula. Glucose Level 92 mg/dL 74-99 Normal (applies to non-numeric re sults) [facility] The reference range is only applicable w hen fasting. Calcium-Uncorrected 8.4-10.2 Below low normal [facility] Corrected Calcium 8.4-10.2 Normal (applies to non-numeri c results) [facility] Bilirubin,Total 0.2-1.3 Above high normal [facility] SGOT(AST) 78 U/L 14-36 Above high normal [facility] SGPT(ALT) 24 U/L 9-52 Normal (applies to non-numeric resul ts) [facility] Alkaline Phosphatase 108 U/L 38-126 Normal (applies to non-num reynaldo results) [facility] can increase Alkaline Phosp le vels up to 2 times the normal adult value. Normal values for children and adolescents are 2 to 3 times the normal adult value. Total Protein 6.3-8.2 Below low normal [facility] Albumin 3.5-5.0 Below low normal [facility] ID Date Data Source [id number] 03/21/2020 10:18:00 AM EDT [facility] Name Value Range Interpretation Code Description Data Julia rce(s) Supporting Document(s) Bilirubin,Direct 0.0-0.3 Above high normal [facility] ID Date Data Source [id number] 03/21/2020 09:37:00 AM EDT [facility] Name Value Range Interpretation Code Description Data Julia rce(s) Supporting Document(s) White Blood Count 4.8-10.8 Normal (applies to non-numeri c results) [facility] Red Blood Count 3.68-5.22 Below low normal [facility] Hemoglobin 11.2-15.7 Normal (applies to non-numeric resul ts) [facility] Hematocrit 34.1-44.9 Below low normal [facility] Mean Corpuscular Volume 81-99 Above high normal [facility] Mean Corpuscular Hemoglobin 27.0-33.0 Above high normal [facility] Mean Corpuscular HGB Conc 32.0-36.0 Normal (applies to no n-numeric results) [facility] Red Cell Distribution Width 11.5-14.5 Above high normal [facility] Platelet Count 94 X10 3/uL 130-450 Below low normal [facility] Mean Platelet Volume 9.5-12.7 Normal (applies to non-num reynaldo results) [facility] Imm Grans% (AUTO) 1 % 0-2 Normal (applies to non-numeri c results) [facility] Neutrophils % (AUTO) 66 % 40-75 Normal (applies to non-num reynaldo results) [facility] Lymphocytes % (AUTO) 16 % 21-46 Below low normal [facility] Monocytes % (AUTO) 15 % 5-12 Above high normal [facility] [facility] E[facility] % (AUTO) 2 % 1-5 Normal (applies to non-num reynaldo results) [facility] Basophils % (AUTO) 1 % 0-1 Normal (applies to non-numer ic results) [facility] Imm Grans# (AUTO) 0.0-0.5 Normal (applies to non-numeri c results) [facility] Neutrophils # (AUTO) 1.5-8.1 Normal (applies to non-num reynaldo results) [facility] Lymphocytes # (AUTO) 1.0-3.1 Normal (applies to non-num reynaldo results) [facility] Monocytes # (AUTO) 0.2-1.3 Normal (applies to non-numer ic results) [facility] Eosinophils# (AUTO) 0.0-0.5 Normal (applies to non-nume zora results) [facility] Basophils # (AUTO) 0.0-0.1 Normal (applies to non-numer ic results) [facility] ID Date Data Source [id number] 03/20/2020 09:34:00 AM EDT [facility] Name Value Range Interpretation Code Description Data Julia rce(s) Supporting Document(s) Sodium 137 mmol/L 137-145 Normal (applies to non-numeric resul ts) [facility] Potassium 3.5-5.1 Normal (applies to non-numeric resul ts) [facility] Chloride 103 mmol/L 98-112 Normal (applies to non-numeric resul ts) [facility] Carbon Dioxide CO2 22.0-33.0 Normal (applies to non-numer ic results) [facility] Anion Gap 4.0-11.0 Normal (applies to non-numeric resul ts) [facility] BUN 10 mg/dL 7-17 Normal (applies to non-numeric resul ts) [facility] Creatinine 0.70-1.20 Below low normal [facility] GFR >60 Normal (applies to non-numeric results) [facility] Result based on MDRD formula. Glucose Level 110 mg/dL 74-[address] [facility] The reference range is only applicable w hen fasting. Calcium-Uncorrected 8.4-10.2 Below low normal [facility] Corrected Calcium 8.4-10.2 Normal (applies to non-numeri c results) [facility] Bilirubin,Total 0.2-1.3 Above high normal [facility] SGOT(AST) 58 U/L 14-36 Above high normal [facility] SGPT(ALT) 18 U/L 9-52 Normal (applies to non-numeric resul ts) [facility] Alkaline Phosphatase 99 U/L 38-126 Normal (applies to non-num reynaldo results) [facility] can increase Alkaline Phosp le vels up to 2 times the normal adult value. Normal values for children and adolescents are 2 to 3 times the normal adult value. Total Protein 6.3-8.2 Below low normal [facility] Albumin 3.5-5.0 Below low normal [facility] ID Date Data Source [id number] 03/20/2020 09:34:00 AM EDT [facility] Name Value Range Interpretation Code Description Data Julia rce(s) Supporting Document(s) Bilirubin,Direct 0.0-0.3 Above high normal [facility] ID Date Data Source [id number] 03/20/2020 09:20:00 AM EDT [facility] Name Value Range Interpretation Code Description Data Julia rce(s) Supporting Document(s) Ammonia 39 umol/L 11-32 Above high normal [facility] ID Date Data Source [id number] 03/20/2020 09:06:00 AM T [facility] Name Value Range Interpretation Code Description Data Julia rce(s) Supporting Document(s) White Blood Count 4.8-10.8 Normal (applies to non-numeri c results) [facility] Red Blood Count 3.68-5.22 Below low normal [facility] Hemoglobin 11.2-15.7 Below low normal [facility] Hematocrit 34.1-44.9 Below low normal [facility] Mean Corpuscular Volume 81-99 Above high normal [facility] Mean Corpuscular Hemoglobin 27.0-33.0 Above high normal [facility] Mean Corpuscular HGB Conc 32.0-36.0 Normal (applies to no n-numeric results) [facility] Red Cell Distribution Width 11.5-14.5 Above high normal [facility] Platelet Count 86 X10 3/uL 130-450 Below low normal [facility] Mean Platelet Volume 9.5-12.7 Normal (applies to non-num reynaldo results) [facility] Imm Grans% (AUTO) 0 % 0-2 Normal (applies to non-numeri c results) [facility] Neutrophils % (AUTO) 66 % 40-75 Normal (applies to non-num reynaldo results) [facility] Lymphocytes % (AUTO) 17 % 21-46 Below low normal [facility] Monocytes % (AUTO) 14 % 5-12 Above high normal [facility] Eosinophils % (AUTO) 2 % 1-5 Normal (applies to non-num reynaldo results) [facility] Basophils % (AUTO) 1 % 0-1 Normal (applies to non-numer ic results) [facility] Imm Grans# (AUTO) 0.0-0.5 Normal (applies to non-numeri c results) [facility] Neutrophils # (AUTO) 1.5-8.1 Normal (applies to non-num reynaldo results) [facility] Lymphocytes # (AUTO) 1.0-3.1 Normal (applies to non-num reynaldo results) [facility] Monocytes # (AUTO) 0.2-1.3 Normal (applies to non-numer ic results) [facility] Eosinophils# (AUTO) 0.0-0.5 Normal (applies to non-nume zora results) [facility] Basophils # (AUTO) 0.0-0.1 Normal (applies to non-numer ic results) [facility] ID Date Data Source [id number] 03/19/2020 08:03:00 AM EDT [facility] Name: SANA SU : 1960 A ge/Sex: 60F Attending Physician: Soniya Cheng MD Med Rec #: [id number] Admission Date: 03/17/20 Room #: 304-01 Admitting Physician: Soniya Cheng MD Report Number: [id number] _ cc: Send Report To: Report Status [...] andlactic acid, however. Dictated Date/Time/Job.No.: 03/19/20 0340 [id number] REPORT SIGNATURE ON FILE Dictated By: Soniya Cheng MD <Electronically signed by Soniya Cheng MD> 03/20/20 0238 Transcribed Date/Time: 03/19/20 0803/JUSTIN Name Value Range Interpretation Code Description Data Julia rce(s) Supporting Document(s) ID Date Data Source [id number] 03/19/2020 05:33:00 AM EDT [facility] Name: SANA SU : 1960 A ge/Sex: 60F Attending Physician: Soniya Cheng MD Med Rec #: [id number] Admission Date: 03/17/20 Room #: [facility] Admitting Physician: Soniya Cheng MD Report Number: [id number] _ cc: Send Report To: Report Status [...] 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 REPORT SIGNATURE ON FILE Dictated By: Polina Chiu MD <Electronically signed by Marcela Chiu MD> 03/19/20 1730 Dictation Date/Time: 03/18/20 1710 Transcribed Date/Time: 03/19/20 0533/JUANA Name Value Range Interpretation Code Description Data Julia rce(s) Supporting Document(s) ID Date Data Source [id number] 03/19/2020 08:30:00 AM EDT [facility] Name: SANA SU : 1960 A ge/Sex: 60F Attending Physician: Soniya Cheng MD Med Rec #: [id number] Admission Date: 03/17/20 Room #: 304-01 Admitting Physician: Soniya Cheng MD Report Number: [id number] _ cc: PCP None Send Report To: [...] Dictation Date/Time: 03/18/20 1656 Transcribed Date/Time: 03/19/20 0830/JUANA Name Value Range Interpretation Code Description Data Julia rce(s) Supporting Document(s) ID Date Data Source [id number] 03/19/2020 06:26:00 AM EDT [facility] Name Value Range Interpretation Code Description Data [facility] rce(s) Supporting Document(s) Sodium 138 mmol/L 137-145 Normal (applies to non-numeric resul ts) [facility] Potassium 3.5-5.1 Below low normal [facility] Chloride 102 mmol/L 98-112 Normal (applies to non-numeric resul ts) [facility] Carbon Dioxide CO2 22.0-33.0 Normal (applies to non-numer ic results) [facility] Anion Gap 4.0-11.0 Normal (applies to non-numeric resul ts) [facility] BUN 9 mg/dL 7-17 Normal (applies to non-numeric resul ts) [facility] Creatinine 0.70-1.20 Below low normal [facility] GFR >60 Normal (applies to non-numeric results) [facility] Result based on MDRD formula. Glucose Level 87 mg/dL 74-99 Normal (applies to non-numeric re sults) [facility] The reference range is only applicable w hen fasting. Calcium-Uncorrected 8.4-10.2 Below low normal [facility] Corrected Calcium 8.4-10.2 Normal (applies to non-numeri c results) [facility] Bilirubin,Total 0.2-1.3 Above high normal [facility] SGOT(AST) 51 U/L 14-36 Above high normal [facility] SGPT(ALT) 16 U/L 9-52 Normal (applies to non-numeric resul ts) [facility] Alkaline Phosphatase 90 U/L 38-126 Normal (applies to non-num reynaldo results) [facility] can increase Alkaline Phosp le vels up to 2 times the normal adult value. Normal values for children and adolescents are 2 to 3 times the normal adult value. Total Protein 6.3-8.2 Below low normal [facility] Albumin 3.5-5.0 Below low normal [facility] ID Date Data Source [id number] 03/19/2020 06:26:00 AM EDT [facility] Name Value Range Interpretation Code Description Data Julia rce(s) Supporting Document(s) Bilirubin,Direct 0.0-0.3 Above high normal [facility] ID Date Data Source [id number] 03/19/2020 05:43:00 AM EDT [facility] Name Value Range Interpretation Code Description Data Julia rce(s) Supporting Document(s) Ammonia 68 umol/L 11-32 Above high normal [facility] ID Date Data Source [id number] 03/19/2020 05:21:00 AM EDT [facility] Name Value Range Interpretation Code Description Data Julia rce(s) Supporting Document(s) White Blood Count 4.8-10.8 Normal (applies to non-numeri c results) [facility] Red Blood Count 3.68-5.22 Below low normal [facility] Hemoglobin 11.2-15.7 Below low normal [facility] Hematocrit 34.1-44.9 Below low normal [facility] Mean Corpuscular Volume 81-99 Above high normal [facility] Mean Corpuscular Hemoglobin 27.0-33.0 Above high normal [facility] Mean Corpuscular HGB Conc 32.0-36.0 Normal (applies to no n-numeric results) [facility] Red Cell Distribution Width 11.5-14.5 Above high normal [facility] Platelet Count 77 X10 3/uL 130-450 Below low normal [facility] Mean Platelet Volume 9.5-12.7 Normal (applies to non-num reynaldo results) [facility] Imm Grans% (AUTO) 0 % 0-2 Normal (applies to non-numeri c results) [facility] Neutrophils % (AUTO) 64 % 40-75 Normal (applies to non-num reynaldo results) [facility] Lymphocytes % (AUTO) 19 % 21-46 Below low normal [facility] Monocytes % (AUTO) 16 % 5-12 Above high normal [facility] Eosinophils % (AUTO) 2 % 1-5 Normal (applies to non-num reynaldo results) [facility] Basophils % (AUTO) 1 % 0-1 Normal (applies to non-numer ic results) [facility] Imm Grans# (AUTO) 0.0-0.5 Normal (applies to non-numeri c results) [facility] Neutrophils # (AUTO) 1.5-8.1 Normal (applies to non-num reynaldo results) [facility] Lymphocytes # (AUTO) 1.0-3.1 Normal (applies to non-num reynaldo results) [facility] Monocytes # (AUTO) 0.2-1.3 Normal (applies to non-numer ic results) [facility] Eosinophils# (AUTO) 0.0-0.5 Normal (applies to non-nume zora results) [facility] Basophils # (AUTO) 0.0-0.1 Normal (applies to non-numer ic results) [facility] ID Date Data Source [id number] 03/19/2020 02:05:00 AM EDT [facility] Name Value Range Interpretation Code Description Data Julia rce(s) Supporting Document(s) Procalcitonin 0.00-0.24 Normal (applies to non-numeric re sults) [facility] 1.Risk of Progression to severe sepsis [...] therapy is warranted. ID Date Data Source [id number] 03/19/2020 01:56:00 AM EDT [facility] 3 hour post Lactic if elevated? Y Name Value Range Interpretation Code Description Data Julia rce(s) Supporting Document(s) Lactic Acid 0.4-2.0 Normal (applies to non-numeric resu lts) [facility] ID Date Data Source [id number] 03/19/2020 01:53:00 AM EDT [facility] Name Value Range Interpretation Code Description Data Julia rce(s) Supporting Document(s) Sodium 137 mmol/L 137-145 Normal (applies to non-numeric resul ts) [facility] Potassium 3.5-5.1 Below low normal [facility] Chloride 101 mmol/L 98-112 Normal (applies to non-numeric resul ts) [facility] Carbon Dioxide CO2 22.0-33.0 Normal (applies to non-numer ic results) [facility] Anion Gap 4.0-11.0 Normal (applies to non-numeric resul ts) [facility] BUN 9 mg/dL 7-17 Normal (applies to non-numeric resul ts) [facility] Creatinine 0.70-1.20 Below low normal [facility] GFR >60 Normal (applies to non-numeric results) [facility] Result based on MDRD formula. Glucose Level 108 mg/dL 74-[address] [facility] The reference range is only applicable w hen fasting. Calcium-Uncorrected 8.4-10.2 Below low normal [facility] Corrected Calcium 8.4-10.2 Normal (applies to non-numeri c results) [facility] ID Date Data Source [id number] 03/19/2020 01:30:00 AM EDT [facility] Name Value Range Interpretation Code Description Data Julia rce(s) Supporting Document(s) White Blood Count 4.8-10.8 Normal (applies to non-numeri c results) [facility] Red Blood Count 3.68-5.22 Below low normal [facility] Hemoglobin 11.2-15.7 Below low normal [facility] Hematocrit 34.1-44.9 Below low normal [facility] Mean Corpuscular Volume 81-99 Above high normal [facility] Mean Corpuscular Hemoglobin 27.0-33.0 Above high normal [facility] Mean Corpuscular HGB Conc 32.0-36.0 Normal (applies to no n-numeric results) [facility] Red Cell Distribution Width 11.5-14.5 Above high normal [facility] Platelet Count 76 X10 3/uL 130-450 Below low normal [facility] Mean Platelet Volume 9.5-12.7 Normal (applies to non-num reynaldo results) [facility] Imm Grans% (AUTO) 1 % 0-2 Normal (applies to non-numeri c results) [facility] Neutrophils % (AUTO) 66 % 40-75 Normal (applies to non-num reynaldo results) [facility] Lymphocytes % (AUTO) 16 % 21-46 Below low normal [facility] Monocytes % (AUTO) 15 % 5-12 Above high normal [facility] Eosinophils % (AUTO) 2 % 1-5 Normal (applies to non-num reynaldo results) [facility] Basophils % (AUTO) 1 % 0-1 Normal (applies to non-numer ic results) [facility] Imm Grans# (AUTO) 0.0-0.5 Normal (applies to non-numeri c results) [facility] Neutrophils # (AUTO) 1.5-8.1 Normal (applies to non-num reynaldo results) [facility] Lymphocytes # (AUTO) 1.0-3.1 Normal (applies to non-num renyaldo results) [facility] Monocytes # (AUTO) 0.2-1.3 Normal (applies to non-numer ic results) [facility] Eosinophils# (AUTO) 0.0-0.5 Normal (applies to non-nume zora results) [facility] Basophils # (AUTO) 0.0-0.1 Normal (applies to non-numer ic results) [facility] ID Date Data Source [id number] 03/18/2020 11:14:00 AM EDT [facility] Name: SANA SU Pavan : 1960 A ge/Sex: 60F Attending Physician: Soniya Cheng MD Med Rec #: [id number] Admission Date: 03/17/20 Room #: 304-01 Admitting Physician: Soniya Cheng MD Report Number: [id number] _ cc: PCP None Send Report To: Report Status - Signed HISTORY AND PHYSICAL Date of Admission: 03/17/20 CHIEF COMPLAINT: A 60-ear-old female who originally presented to [facility] Emergency Room, transferred to our facility for further management of severe ascites and decompensated liver disease. HISTORY OF PRESENT ILLNESS: Sana who does not have a primary care physician recently moved from [place] where she had lived most of her life. The patientmoved to [place] within the last month after being quarantined with her daughter in [place], [place] from the previous two and half months. She did not think that she had any major medical problems until approximately three months ago. 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 She had injured her right knee, which [...] as affective. She did go also to [facility], Emergency Room on 03-01-2020 complaining of [...] officially moved in with her mother in [place]. Arrived to the ER in [place] as she wanted to get help with [...] it isimproving. The patient was seen in [place] by YARELI Marcos. Her lab work there, [...] Case was discussed with the Hospitalist at [facility]. She was transferred to our facility for [...] [facility] She had no respiratory [...] six years ago. She worked at a [employer] [place]. She had lived with her daughter in [place] for two and half months under quarantine when her restaurant closed. [facility]. She now currently [facility] [place],she just recently moved within the last month. [...] both sides. LABORATORY AND X-RAY DATA: From [place] as mentioned above. ASSESSMENT: A 60-year-old female [...] [facility] 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 The patient has hyperbilirubinemia and elevated AST consistentwith alcohol injury. The patient is not tender over her liver, was considering alcohol hepatitis. Her bilirubin in March 02 in [place] was also elevated at 5.7. PLAN: The [...] of magnesium as she as hypomagnesemic in [place] and oral potassium. We will also start [...] need a new primary physician and a wrister to further monitor her. I did order a nicotine patch as well. TIME SPENT: 75 minutes was spent in total time with over half the time in tvei-fu-wscl time. ADDENDUM: The patient also has an [...] rce(s) Supporting Document(s) ID Date Data Source [id number] 03/18/2020 05:48:00 PM EDT [facility] Name Value Range Interpretation Code Description Data Julia rce(s) Supporting Document(s) Sodium 135 mmol/L 137-145 Below low normal [facility] Potassium 3.5-5.1 Normal (applies to non-numeric resul ts) [facility] Chloride 99 mmol/L 98-112 Normal (applies to non-numeric resul ts) [facility] Carbon Dioxide CO2 22.0-33.0 Normal (applies to non-numer ic results) [facility] Anion Gap 4.0-11.0 Normal (applies to non-numeric resul ts) [facility] BUN 9 mg/dL 7-17 Normal (applies to non-numeric resul ts) [facility] Creatinine 0.70-1.20 Below low normal [facility] GFR >60 Normal (applies to non-numeric results) [facility] Result based on MDRD formula. Glucose Level 107 mg/dL 74-[address] [facility] The reference range is only applicable w hen fasting. Calcium-Uncorrected 8.4-10.2 Below low normal [facility] Corrected Calcium 8.4-10.2 Normal (applies to non-numeri c results) [facility] Bilirubin,Total 0.2-1.3 Above high normal [facility] SGOT(AST) 74 U/L 14-36 Above high normal [facility] SGPT(ALT) 23 U/L 9-52 Normal (applies to non-numeric resul ts) [facility] Alkaline Phosphatase 130 U/L 38-126 Above high normal [facility] can increase Alkaline Phosp le vels up to 2 times the normal adult value. Normal values for children and adolescents are 2 to 3 times the normal adult value. Total Protein 6.3-8.2 Normal (applies to non-numeric re sults) [facility] Albumin 3.5-5.0 Below low normal [facility] ID Date Data Source [id number] 03/18/2020 05:48:00 PM EDT [facility] Name Value Range Interpretation Code Description Data Julia rce(s) Supporting Document(s) Bilirubin,Direct 0.0-0.3 Above high normal [facility] ID Date Data Source [id number] 03/20/2020 12:36:[address] [facility] Sp johnson Garduno MD, Director PAGE [address] [place] [address] [place] [address] Name: SANA SU [facility] Rec #: [id number]: 1960 Age/Sex: 60/F Attending Provider: Soniya Cheng MD Date of Service: 03/17/20 Location: [facility] CC: MD Bruce Ross PA PCP None Polina Chiu MD Specimen: [id number] Received: [id number] Status: ARJ Hindsrachell Num: [id number] Collected: Sp Type: SURGICAL Subm Doc: Soniya Cheng MD Collected By: Polina Chiu MD CLINICAL DIAGNOSIS Alcoholism; Ascites GROSS DESCRIPTION:Labeled as "Sana Su and peritoneal fluid/ascites". Submitted is 200 mL of fresh hazyamber fluid for cell block.geeta FINAL MICROSCOPIC DIAGNOSIS:Peritoneal fluid/ascites cell block: Negative for malignancy (mesothelial cells, red blood cells, and white blood cells).ss/sl(1) Signed (signature on file) SKingsley Garduno MD 03/20/20 1235 END OF REPORT Name Value Range Interpretation Code Description Data Julia rce(s) Supporting Document(s) ID Date Data Source [id number] 03/20/2020 12:01:00 PM EDT [facility] Name: SANA SU : 1960 A ge/Sex: 60F Ordering Provider: Polina Chiu MD Med Rec #: [id number] Reg Status: ADM IN Room #: 312-1 Date of Service: 03/18/20 Report Number: [id number] cc:Polina Chiu MD; PCP None Send Report To: [id number] US/US Paracentesis Reason for exam: fluid build up FINDINGS: Ultrasound guidance was provided to Dr. Chiu for performing paracentesis at bedside. REPORT SIGNATURE ON FILE Reported By: Luis Haddad MD <Electronically signed by Severo Haddad MD> 03/21/20 0942 Dictation Date/Time: 03/20/20 0757 Transcribed Date/Time: 03/20/20 1201 Pool Finisher: DANTE Name Value Range Interpretation Code Description Data Julia rce(s) Supporting Document(s) ID Date Data Source [id number] 03/19/2020 02:20:00 PM EDT [facility] Name Value Range Interpretation Code Description Data Julia rce(s) Supporting Document(s) Volume,(Barbi Fluid) 2 mL Normal (applies to non-nume zora results) [facility] ID Date Data Source [id number] 03/19/2020 02:20:00 PM EDT [facility] Name Value Range Interpretation Code Description Data Julia rce(s) Supporting Document(s) Appearance,(Barbi Fluid) Normal (applies to non- numeric results) [facility] Slide reviewed by Pathologist for conf irmation. 03/19/20 DR GARDUNO. This is a Corrected Result --- 03/19/20 1420 --- Appear(PeriFld) previously reported as: Clear ID Date Data Source [id number] 03/19/2020 02:20:00 PM EDT [facility] Name Value Range Interpretation Code Description Data Julia rce(s) Supporting Document(s) Color,(Barbi Fld) Normal (applies to non-numeric results) [facility] ID Date Data Source [id number] 03/19/2020 02:20:00 PM EDT [facility] Name Value Range Interpretation Code Description Data Julia rce(s) Supporting Document(s) RBC (Barbi Fld) 1000 uL Normal (applies to non-numeric r esults) [facility] No established reference values ID Date Data Source [id number] 03/19/2020 02:20:00 PM EDT [facility] Name Value Range Interpretation Code Description Data Julia rce(s) Supporting Document(s) WBC (Barbi Fld) 97 uL Normal (applies to non-numeric r esults) [facility] No established reference values ID Date Data Source [id number] 03/19/2020 02:20:00 PM EDT [facility] Name Value Range Interpretation Code Description Data Julia rce(s) Supporting Document(s) Mononuclear %(Barbi Fld) Normal (applies to non- numeric results) [facility] No established reference values ID Date Data Source [id number] 03/19/2020 02:20:00 PM EDT [facility] Name Value Range Interpretation Code Description Data Julia rce(s) Supporting Document(s) Polymononuclear %(Barbi Fld) Normal (applies to non-numeric results) [facility] No established reference values ID Date Data Source [id number] 03/19/2020 02:20:00 PM EDT [facility] Name Value Range Interpretation Code Description Data Julia rce(s) Supporting Document(s) Mononuclear #(Barbi Fld) 66 uL Normal (applies to non- numeric results) [facility] No established reference values ID Date Data Source [id number] 03/19/2020 02:20:00 PM EDT [facility] Name Value Range Interpretation Code Description Data Julia rce(s) Supporting Document(s) Polymononuclear #(Barbi Fld) 31 uL Normal (applies to non-numeric results) [facility] No established reference values ID Date Data Source [id number] 03/19/2020 02:20:00 PM EDT [facility] Name Value Range Interpretation Code Description Data Julia rce(s) Supporting Document(s) Glucose,(Barbi Fld) 120 mg/dL Normal (applies to non-numer ic results) [facility] No established reference values ID Date Data Source [id number] 03/19/2020 02:20:00 PM EDT [facility] Name Value Range Interpretation Code Description Data Julia rce(s) Supporting Document(s) LDH,(Barbi Fld) 46 U/L Normal (applies to non-numeric r esults) [facility] No established reference values ID Date Data Source [id number] 03/19/2020 02:20:00 PM EDT [facility] Name Value Range Interpretation Code Description Data Julia rce(s) Supporting Document(s) Total Protein,(Barbi Fld) Normal (applies to non -numeric results) [facility] No established reference values ID Date Data Source [id number] 03/19/2020 02:20:00 PM EDT [facility] Name Value Range Interpretation Code Description Data Julia rce(s) Supporting Document(s) Albumin (Barbi Fld) Normal (applies to non-numer ic results) [facility] No established reference values ID Date Data Source [id number] 03/20/2020 04:52:00 PM EDT [facility] Name Value Range Interpretation Code Description Data Julia rce(s) Supporting Document(s) Amylase,Body Fluid result 50 U/L Normal (applies to no n-numeric results) [facility] REFERENCE VALUE------ See Comment ADDITIONAL INFORMATION [...] ratio <1.0. All other fluids refer to [email or web address].com for further interpretive information. This test has been modified from the dowel sander operator's instructions. Its performance characteristics were determined by [facility] in a manner consistent with CLIA requirements. This test has not been cleared or approved by the U.S. Food and Drug Administration. Amylase,Body Fluid Type Normal (applies to non- numeric results) [facility] Test Performed by: [place] [address] Compliance Attorney: Daniel Degroot M.D. Ph.D.; CLIA# [id number] ID Date Data Source [id number] 03/18/2020 07:14:00 AM EDT [facility] Name Value Range Interpretation Code Description Data Ujlia rce(s) Supporting Document(s) Hep C Ab-T Test Nonreactive Normal (applies to non-numeric results) [facility] ID Date Data Source [id number] 03/18/2020 07:14:00 AM EDT [facility] Name Value Range Interpretation Code Description Data Julia rce(s) Supporting Document(s) Hep Bs Ag Result T-Test Nonreactive Normal (applies to non -numeric results) [facility] ID Date Data Source [id number] 03/18/2020 07:14:00 AM EDT [facility] Name Value Range Interpretation Code Description Data Julia rce(s) Supporting Document(s) Hep Bs Ab Numeric result Normal (applies to non -numeric results) [facility] Reference Value Protected Immunity: >10 mIU/mL Non-Immunity : <10 mIU/mL Hep Bs Ab result T-Test [place] [facility] Reference Value Protected Immunity: Re active Non-Immunity : Nonreactive ID Date Data Source [id number] 03/18/2020 06:16:00 AM EDT [facility] Name Value Range Interpretation Code Description Data Julia rce(s) Supporting Document(s) Sodium 134 mmol/L 137-145 Below low normal [facility] Potassium 3.5-5.1 Normal (applies to non-numeric resul ts) [facility] Chloride 100 mmol/L 98-112 Normal (applies to non-numeric resul ts) [facility] Carbon Dioxide CO2 22.0-33.0 Normal (applies to non-numer ic results) [facility] Anion Gap 4.0-11.0 Normal (applies to non-numeric resul ts) [facility] BUN 8 mg/dL 7-17 Normal (applies to non-numeric resul ts) [facility] Creatinine 0.70-1.20 Below low normal [facility] GFR >60 Normal (applies to non-numeric results) [facility] Result based on MDRD formula. Glucose Level 98 mg/dL 74-99 Normal (applies to non-numeric re sults) [facility] The reference range is only applicable w hen fasting. Calcium-Uncorrected 8.4-10.2 Below low normal [facility] Corrected Calcium 8.4-10.2 Normal (applies to non-numeri c results) [facility] Bilirubin,Total 0.2-1.3 Above high normal [facility] SGOT(AST) 79 U/L 14-36 Above high normal [facility] SGPT(ALT) 22 U/L 9-52 Normal (applies to non-numeric resul ts) [facility] Alkaline Phosphatase 138 U/L 38-126 Above high normal [facility] can increase Alkaline Phosp le vels up to 2 times the normal adult value. Normal values for children and adolescents are 2 to 3 times the normal adult value. Total Protein 6.3-8.2 Normal (applies to non-numeric re sults) [facility] Albumin 3.5-5.0 Below low normal [facility] ID Date Data Source [id number] 03/18/2020 06:16:00 AM EDT [facility] Name Value Range Interpretation Code Description Data Julia rce(s) Supporting Document(s) Magnesium 1.80-2.40 Normal (applies to non-numeric resul ts) [facility] ID Date Data Source [id number] 03/18/2020 06:16:00 AM EDT [facility] Name Value Range Interpretation Code Description Data Julia rce(s) Supporting Document(s) Bilirubin,Direct 0.0-0.3 Above high normal [facility] ID Date Data Source [id number] 03/18/2020 05:30:00 AM EDT [facility] Name Value Range Interpretation Code Description Data Julia rce(s) Supporting Document(s) White Blood Count 4.8-10.8 Normal (applies to non-numeri c results) [facility] Red Blood Count 3.68-5.22 Below low normal [facility] Hemoglobin 11.2-15.7 Normal (applies to non-numeric resul ts) [facility] Hematocrit 34.1-44.9 Below low normal [facility] Mean Corpuscular Volume 81-99 Above high normal [facility] Mean Corpuscular Hemoglobin 27.0-33.0 Above high normal [facility] Mean Corpuscular HGB Conc 32.0-36.0 Normal (applies to no n-numeric results) [facility] Red Cell Distribution Width 11.5-14.5 Above high normal [facility] Platelet Count 93 X10 3/uL 130-450 Below low normal [facility] Mean Platelet Volume 9.5-12.7 Normal (applies to non-num reynaldo results) [facility] Imm Grans% (AUTO) 0 % 0-2 Normal (applies to non-numeri c results) [facility] Neutrophils % (AUTO) 66 % 40-75 Normal (applies to non-num reynaldo results) [facility] Lymphocytes % (AUTO) 16 % 21-46 Below low normal [facility] Monocytes % (AUTO) 15 % 5-12 Above high normal [facility] Eosinophils % (AUTO) 2 % 1-5 Normal (applies to non-num reynaldo results) [facility] Basophils % (AUTO) 1 % 0-1 Normal (applies to non-numer ic results) [facility] Imm Grans# (AUTO) 0.0-0.5 Normal (applies to non-numeri c results) [facility] Neutrophils # (AUTO) 1.5-8.1 Normal (applies to non-num reynaldo results) [facility] Lymphocytes # (AUTO) 1.0-3.1 Normal (applies to non-num reynaldo results) [facility] Monocytes # (AUTO) 0.2-1.3 Normal (applies to non-numer ic results) [facility] Eosinophils# (AUTO) 0.0-0.5 Normal (applies to non-nume zora results) [facility] Basophils # (AUTO) 0.0-0.1 Normal (applies to non-numer ic results) [facility] ID Date Data Source [id number] 03/20/2020 11:50:[address] [facility] Sp johnson Garduno MD, Director PAGE [id number] [place] [address] [place] [id number] Name: SANA SU [facility] Rec #: [id number]: 1960 Age/Sex: 60/F Attending Provider: Soniya Cheng MD Date of Service: 03/17/20 Location: [facility]3 CC: MD Bruce Ross PA [facility] None Polina Chiu MD Specimen: [id number] Received: [id number] Status: RAJ Perez Num: [id number] Collected: [id number] Type: PERITON FL Subm Doc: Soniya Cheng MD NONGYN Specimen Submitted Submitted: Peritoneal fluidLabeled: Ascites Received: ~ 1000 mLAp pearance: juli maya Clinical Hx: ETOH Clinical Dx: ascites Microscopic Description Mesothelial cells, wbc's, and rbc's Cytologic Diagnosis Negative for malignancy Signed (signature on file) Meet Hart CT 03/20/20 1026 (prelim) (signature on file) Eliseo Garduno MD 03/20/20 1149 END OF REPORT Name Value Range Interpretation Code Description Data Julia rce(s) Supporting Document(s) ID Date Data Source [id number] [facility]lected By: Nurse Initials: ZB Time Collected: 1800 Name Value Range Interpretation Code Description Data Julia rce(s) Supporting Document(s) Color,Urine Colorl-Dk Y Normal (applies to non-numeric res ults) [facility] Clarity,Urine Clear Normal (applies to non-numeric re sults) [facility] Specific Leon,Urine 1.005-1.030 Normal (applies to non- numeric results) [facility] pH,Urine 5.0-8.0 Normal (applies to non-numeric resul ts) [facility] Protein,Urine Negative Normal (applies to non-numeric re sults) [facility] Glucose,Urine Negative Normal (applies to non-numeric re sults) [facility] Ketones,Urine Negative [facility] Blood,Urine Negative Normal (applies to non-numeric resu lts) [facility] Bilirubin,Urine Negative [facility] Urobilinogen,Urine 0.2-1.0 [facility] Leukocyte Esterase,Urine Negative Normal (applies to non -numeric results) [facility] Nitrite,Urine Negative Normal (applies to non-numeric re sults) [facility] ID Date Data Source [id number] 03/17/2020 05:29:00 PM EDT [facility] Name Value Range Interpretation Code Description Data Julia rce(s) Supporting Document(s) Sodium 134 mmol/L 136-145 Below low normal [facility] Potassium 3.5-5.1 Below low normal [facility] sp[facility] Chloride 97 mmol/L 98-107 Below low normal [facility] sp[facility] Carbon Dioxide CO2 21-32 Normal (applies to non-numer ic results) [facility] Anion Gap 5.0-16.0 Normal (applies to non-numeric resul ts) [facility] BUN 6 mg/dL 7-18 Below low normal [facility] sp[facility] Creatinine,Serum 0.7-1.2 Below low normal [facility] GFR >60 Normal (applies to non-numeric results) [facility] Glucose Level 102 mg/dL 60-99 Above high normal [facility] Reference range is only applicable when patient is fasting Note the following drug interference: Sulfasalazine Sulfapyridine Can see falsely depressed Can see falsely elevated result with up to 17% results with up to 11% decrease in measurement increase in measurement Recommend patients be collected for this test prior to administration of either drug. Calcium 8.5-10.1 Below low normal [facility] spital Bilirubin,Total 0.1-1.[address] [facility] Tracy Lowe RN read back critical infor sebas 03/17/20 7491 LAB.MCNRO SGOT(AST) 86 U/L 15-37 Above high normal [facility] Note the following drug interference: Sulfasalazine Sulfapyridine Can see falsely depressed Can see falsely elevated result with up to 10% results with up to 10% decrease in measurement increase in measurement Recommend patients be collected for this test prior to administration of either drug. SGPT(ALT) 26 U/L 12-78 Normal (applies to non-numeric resul ts) [facility] Note the following drug interference: Sulfasalazine Sulfapyridine Can see falsely depressed Can see falsely elevated result with up to 29% results with up to 10% decrease in measurement increase in measurement Recommend patients be collected for this test prior to administration of either drug. Alkaline Phosphatase 163 U/L 38-126 Above high normal [facility] can increase Alkaline Phosp le vels up to 2 times the normal adult value. Normal values for children and adolescents are 2 to 3 times the normal adult value. Total Protein 6.0-8.2 Normal (applies to non-numeric [facility]ults[facility] Albumin Level 3.4-5.0 Below low normal [facility] ID Date Data Source [id number] 03/17[facility]2020 [facility]:29[facility] Name Value Range Interpretation Code Description Data Julia rce(s) Supporting Document(s) Magnesium 1.8-2.4 Below low normal [facility] ID Date Data Source [id number] 03/17/2020 05:29:00 PM [facility] Value Range Interpretation Code Description Data Julia rce(s) Supporting Document(s) Amylase 107 U/L 25-115 Normal (applies to non-numeric resul ts) [facility] ID Date Data Source [id number] 03/17/2020 05:29:00 PM [facility] Name Value Range Interpretation Code Description Data Julia rce(s) Supporting Document(s) Lipase 571 U/L 73-393 Above high normal [facility] ID Date Data Source [id number] 03/17/2020 05:19:00 PM [facility] Name Value Range Interpretation Code Description Data Julia rce(s) Supporting Document(s) Lactic Acid 0.4-2.0 Normal (applies to non-numeric resu lts) [facility] ID Date Data Source [id number] 03/17/2020 05:13:00 PM EDT [facility] Name Value Range Interpretation Code Description Data Julia rce(s) Supporting Document(s) PT 9.2-11.7 Above high normal [facility] INR Normal (applies to non-numeric results) [facility] The use of INR is restricted to patients on stable oral anticoagulant. Therapeutic Range: 2.0 - 3.0 High Risk Range: 2.5 - 3.5 ID Date Data Source [id number] 03/17/2020 05:13:00 PM EDT [facility] Name Value Range Interpretation Code Description Data Julia rce(s) Supporting Document(s) PTT 23.8-37.9 Normal (applies to non-numeric results) [facility] ID Date Data Source [id number] 03/17/2020 04:54:00 PM EDT [facility] Name Value Range Interpretation Code Description Data Julia rce(s) Supporting Document(s) White Blood Count 3.5-10.5 Normal (applies to non-numeri c results) [facility] Red Blood Count 3.90-5.00 Below low normal [facility] Hemoglobin 12.0-15.5 Normal (applies to non-numeric resul ts) [facility] Hematocrit 34.9-44.5 Normal (applies to non-numeric resul ts) [facility] Mean Corpuscular Volume 81.2-95.1 Above high normal [facility] Mean Corpuscular Hgb 25.6-32.2 Above high normal [facility] Mean Corpuscular Hgb Conc 32.0-36.0 Normal (applies to no n-numeric results) [facility] Red Cell Distribution Width 11.9-15.5 Above high normal [facility] Platelet Count 108 x10 3/uL 150-450 Below low normal [facility] Mean Platelet Volume 9.4-12.4 Normal (applies to non-num reynaldo results) [facility] Neutrophils% (Auto) 31.0-71.0 Normal (applies to non-nume zora results) [facility] Lymphocytes% (Auto) 20.0-55.0 Below low normal [facility] Monocytes% (Auto) 4.0-12.0 Above high normal [facility] Eosinophils% (Auto) 1.0-8.0 Normal (applies to non-nume zora results) [facility] Basophils% (Auto) 0.0-2.0 Normal (applies to non-numeri c results) [facility] Immature Granulocytes% (Auto) 0.0-2.0 Normal (ivon lies to non-numeric results) [facility] Neutrophils# (Auto) 1.50-6.20 Normal (applies to non-nume zora results) [facility] Lymphocytes# (Auto) 1.20-4.00 Normal (applies to non-nume zora results) [facility] Monocytes# (Auto) 0.00-0.90 Above high normal [facility] Eosinophils# (Auto) 0.00-0.50 Normal (applies to non-nume zora results) [facility] Basophils# (Auto) 0.00-0.20 Normal (applies to non-numeri c results) [facility] Immature Granulocytes# (Auto) 0.00-7.00 No rmal (applies to non-numeric results) [facility] ID Date Data Source [id number] 03/18/2020 12:11:00 PM EDT [facility] Imaging Services Department Imaging Report [address], [place] [address] %(RAD)RES..mtdd.print.filter("line") Name: SANA SU : 1960 Age/Sex: 60F Ordering Provider: Kiel Marcos NP Med Rec #: [id number] Reg Status: DEP ER Room #: Date of Service: 03/17/20 Report Number: [id number] cc:Kiel Marcos NP; PCP None Send Report To: [id number] US/US Duplex Lower Ext Vein Bilat Reason [...] Date/Time: 03/17/20 1800 Transcribed Date/Time: 03/18/20 1211 Pool Finisher: REMY Name Value Range Interpretation Code Description Data Julia rce(s) Supporting Document(s) ID Date Data Source [id number] 03/17/2020 04:39:00 PM EDT [facility] Imaging Services Department Imaging Report [address] [place] [address] %(RAD)RES..mtdd.print.filter("line") Name: SANA SU : 1960 Age/Sex: 60F Ordering Provider: Kiel Marcos NP Med Rec #: [id number] Reg Status: [facility] ER Room #: Date of Service: 03/17/20 Report Number: [id number] cc:PCP None Send Report To: [id number] CT/CT Abdomen & Pelvis No Contras Reason [...] Date/Time: 03/17/20 1638 Transcribed Date/Time: 03/17/20 1639 Pool Finisher: REMY Name Value Range Interpretation Code Description [facility] Document(s) ID Date Data Source [id number] 01/17/2020 11:14:00 AM EDT [facility] ([facility]) ABDOMEN INDICATION: Pain COMPARISON: None TECHNIQUE: AP supine views of the abdomen were obtained. FINDINGS: Moderate stool in the colon. No dilated bowel. No evidence of free air or free fluid. No abnormal soft tissue mass lesions are identified. There are no pathological calcifications. IMPRESSION: Moderate stool in the colon, no dilated bowel Professional interpretation performed by [facility] Medical Imaging at [facility] Name Value Range Interpretation Code Description Data [facility] rce(s) Supporting Document(s) ID Date Data Source [id number] 01/17/2020 12:00:00 AM EDT [facility] ([facility]) Name Value Range Interpretation Code Description Data [facility] rce(s) Supporting Document(s) BASO # 0.1 10*3/uL BASO #: 0.1 10*3/uL 01/16 [facility] ([facility]) ID Date Data Source [id number] 01/17/2020 12:00:00 AM EDT [facility] ([facility]) Name Value Range Interpretation Code Description Data Julia rce(s) Supporting Document(s) EOS # 0.1 10*3/uL EOS #: 0.1 10*3/uL 2019 CH[facility]MAK[facility] ([facility]) ID Date Data Source [id number] 01/17/2020 12:00:00 AM EDT [facility] ([facility]) Name Value Range Interpretation Code Description Data Julia rce(s) Supporting Document(s) MONO # 0.8 10*uL MONO #: 0.8 10*/uL 01/16 [facility] ([facility]) ID Date Data Source [id number] 01/17/2020 12:00:00 AM EDT [facility] ([facility]) Name Value Range Interpretation Code Description Data Julia rce(s) Supporting Document(s) LYMPH # 1.2 10*uL LYMPH #: 1.2 10*/uL 01/17/2020 [facility] ([facility]) ID Date Data Source [id number] 01/17/2020 12:00:00 AM EDT [facility] ([facility]) Name Value Range Interpretation Code Description Data Julia rce(s) Supporting Document(s) NEUT # 3.8 10*uL NEUT #: 3.8 10*/uL 01/16 [facility] ([facility]) ID Date Data Source [id number] 01/17/2020 12:00:00 AM EDT [facility] ([facility]) Name Value Range Interpretation Code Description Data Julia rce(s) Supporting Document(s) BASO % 1.3 % BASO %: 1.3 % 01/17/2020 CHARTM JOAQUIN ([facility]) ID Date Data Source [id number] 01/17/2020 12:00:00 AM EDT [facility] ([facility]) Name Value Range Interpretation Code Description Data Julia rce(s) Supporting Document(s) EOS % 1.8 % EOS %: 1.8 % 01/17/2020 CHARTMA KER ([facility]) ID Date Data Source [id number] 01/17/2020 12:00:00 AM EDT [facility] ([facility]) Name Value Range Interpretation Code Description Data Julia rce(s) Supporting Document(s) MONO % 13.4 % MONO %: 13.4 % 01/17/2020 CHART MAKER ([facility]) ID Date Data Source [id number] 01/17/2020 12:00:00 AM EDT [facility] ([facility]) Name Value Range Interpretation Code Description Data Julia rce(s) Supporting Document(s) LYMPH % 19.7 % LYMPH %: 19.7 % 01/17/2020 AURELIA TMAKER ([facility]) ID Date Data Source [id number] 01/17/2020 12:00:00 AM EDT [facility] ([facility]) Name Value Range Interpretation Code Description Data Julia rce(s) Supporting Document(s) NEUT % 63.8 % NEUT %: 63.8 % 01/17/2020 CHART MAKER ([facility]) ID Date Data Source [id number] 01/17/2020 12:00:00 AM EDT [facility] ([facility]) Name Value Range Interpretation Code Description Data Julia rce(s) Supporting Document(s) MPV 9.2 fL MPV: 9.2 fL 01/17/2020 CHARTMAK ER ([facility]) ID Date Data Source [id number] 01/17/2020 12:00:00 AM EDT [facility]MAK[facility] ([facility]) Name Value Range Interpretation Code Description Data Julia rce(s) Supporting Document(s) PLT 119 10*3/uL PLT: 119 10*3/uL 01/17/2020 C HARTMAKER ([facility]) ID Date Data Source [id number] 01/17/2020 12:00:00 AM EDT CH[facility]MAK[facility] ([facility]) Name Value Range Interpretation Code Description Data Julia rce(s) Supporting Document(s) RDW 16.7 % RDW: 16.7 % 01/17/2020 CHARTMAK ER ([facility]) ID Date Data Source [id number] 01/17/2020 12:00:00 AM EDT [facility]MA[facility] ([facility]) Name Value Range Interpretation Code Description Data Julia rce(s) Supporting Document(s) MCHC 34.5 g/dL MCHC: 34.5 g/dL 01/17/2020 AURELIA TMAKER ([facility]) ID Date Data Source [id number] 01/17/2020 12:00:00 AM EDT [facility] ([facility] [facility] Name Value Range Interpretation Code Description Data Julia rce(s) Supporting Document(s) MCH 35.5 pg MCH: 35.5 pg 01/17/2020 CHARTMA KER ([facility]) ID Date Data Source [id number] 01/17/2020 12:00:00 AM EDT CHARTMAKER ([facility]) Name Value Range Interpretation Code Description Data Julia rce(s) Supporting Document(s) MCV 102.9 fL MCV: 102.9 fL 01/17/2020 CHARTM JOAQUIN ([facility]) ID Date Data Source [id number] 01/17/2020 12:00:00 AM EDT CHARTMAKER ([facility]) Name Value Range Interpretation Code Description Data Julia rce(s) Supporting Document(s) HCT 34.5 % HCT: 34.5 % 01/17/2020 CHARTMAK ER ([facility]) ID Date Data Source [id number] 01/17/2020 12:00:00 AM EDT CHARTMAKER ([facility]) Name Value Range Interpretation Code Description Data Julia rce(s) Supporting Document(s) HGB 11.9 g/dL HGB: 11.9 g/dL 01/17/2020 CHART MAKER ([facility]) ID Date Data Source [id number] 01/17/2020 12:00:00 AM EDT CHARTMAKER ([facility]) Name Value Range Interpretation Code Description Data Julia rce(s) Supporting Document(s) RBC 3.36 10*6/uL RBC: 3.36 10*6/uL 2019 CHARTMAKER ([facility]) ID Date Data Source [id number] 01/17/2020 12:00:00 AM EDT CHARTMAKER ([facility]) Name Value Range Interpretation Code Description Data Julia rce(s) Supporting Document(s) WBC 5.9 10*3/uL WBC: 5.9 10*3/uL 01/17/2020 C JAIMIEWYKER ([facility]) ID Date Data Source [id number] 01/17/2020 12:00:00 AM EDT CHARTMAKER ([facility]) Name Value Range Interpretation Code Description Data Julia rce(s) Supporting Document(s) GFR ( AMER) >60 GFR ( AMER ): >60 01/17/2020 CHARTMAKER ([facility]) ID Date Data Source [id number] 01/17/2020 12:00:00 AM EDT CHARTMAKER ([facility]) Name Value Range Interpretation Code Description Data Julai rce(s) Supporting Document(s) GFR >60 GFR : >60 01/17/2020 CHARTMAKER ([facility]) ID Date Data Source [id number] 01/17/2020 12:00:00 AM EDT CHARTMAKER ([facility]) Name Value Range Interpretation Code Description Data Julia rce(s) Supporting Document(s) ALT (SGPT) 32 U/L ALT (SGPT): 32 U/L 020 CHARTMAKER ([facility]) ID Date Data Source [id number] 01/17/2020 12:00:00 AM EDT CHARTMAKER ([facility]) Name Value Range Interpretation Code Description Data Julia rce(s) Supporting Document(s) AST (SGOT) 86 U/L AST (SGOT): 86 U/L 020 CHARTMAKER ([facility]) ID Date Data Source [id number] 01/17/2020 12:00:00 AM EDT CHARTMAKER ([facility]) Name Value Range Interpretation Code Description Data Julia rce(s) Supporting Document(s) BILIRUBIN,TOTAL 4.4 mg/dL BILIRUBIN,TOTAL: 4. 4 mg/dL 01/17/2020 CHARTMAKER ([facility]) ID Date Data Source [id number] 01/17/2020 12:00:00 AM EDT CHARTMAKER ([facility]) Name Value Range Interpretation Code Description Data Julia rce(s) Supporting Document(s) ALKALINE PHOSPHATASE 175 U/L ALKALINE PHOSPH ATASE: 175 U/L 01/17/2020 CHARTMAKER ([facility]) ID Date Data Source [id number] 01/17/2020 12:00:00 AM EDT CHARTMAKER ([facility]) Name Value Range Interpretation Code Description Data Julia rce(s) Supporting Document(s) ALB/GLOB RATIO 0.5 RATIO ALB/GLOB RATIO: 0.5 RATIO 01/17/2020 CHARTMAKER ([facility]) ID Date Data Source [id number] 01/17/2020 12:00:00 AM EDT CHARTMAKER ([facility]) Name Value Range Interpretation Code Description Data Julia rce(s) Supporting Document(s) GLOBULIN 4.6 g/dL GLOBULIN: 4.6 g/dL 020 CHARTMAKER ([facility]) ID Date Data Source [id number] 01/17/2020 12:00:00 AM EDT CHARTMAKER ([facility]) Name Value Range Interpretation Code Description Data Julia rce(s) Supporting Document(s) ALBUMIN 2.3 g/dL ALBUMIN: 2.3 g/dL 01/17/20 20 CHARTMAKER ([facility]) ID Date Data Source [id number] 01/17/2020 12:00:00 AM EDT CHARTMAKER ([facility]) Name Value Range Interpretation Code Description Data Julia rce(s) Supporting Document(s) TOTAL PROTEIN 6.9 g/dL TOTAL PROTEIN: 6.9 g/ dL 01/17/2020 CHARTMAKER ([facility]) ID Date Data Source [id number] 01/17/2020 12:00:00 AM EDT CHARTMAKER ([facility]) Name Value Range Interpretation Code Description Data Julia rce(s) Supporting Document(s) CALCIUM 8.4 mg/dL CALCIUM: 8.4 mg/dL CHARTMAKER ([facility]) ID Date Data Source [id number] 01/17/2020 12:00:00 AM EDT CHARTMAKER ([facility]) Name Value Range Interpretation Code Description Data Julai rce(s) Supporting Document(s) Glucose [Mass/volume] in Serum or Plasma 97 mg/dL Glucose: 97 mg/dL 01/17/2020 CHARTMAKER ([facility]) ID Date Data Source [id number] 01/17/2020 12:00:00 AM EDT CHARTMAKER ([facility]) Name Value Range Interpretation Code Description Data Julia rce(s) Supporting Document(s) BUN/CREAT RATIO 15.4 RATIO BUN/CREAT RATIO: 15 .4 RATIO 01/17/2020 CHARTMAKER ([facility]) ID Date Data Source [id number] 01/17/2020 12:00:00 AM EDT CHARTMAKER ([facility]) Name Value Range Interpretation Code Description Data Julia rce(s) Supporting Document(s) Creatinine 0.52 mg/dL Creatinine: 0.52 mg/dL CHARTMAKER ([facility]) ID Date Data Source [id number] 01/17/2020 12:00:00 AM EDT CHARTMAKER ([facility]) Name Value Range Interpretation Code Description Data Julia rce(s) Supporting Document(s) UREA NITROGEN 8 mg/dL UREA NITROGEN: 8 mg/d L 01/17/2020 CHARTMAKER ([facility]) ID Date Data Source [id number] 01/17/2020 12:00:00 AM EDT CHARTMAKER ([facility]) Name Value Range Interpretation Code Description Data Julia rce(s) Supporting Document(s) ANION GAP 3 mmol/L ANION GAP: 3 mmol/L 2019 CHARTMAKER ([facility]) ID Date Data Source [id number] 01/17/2020 12:00:00 AM EDT CHARTMAKER ([facility]) Name Value Range Interpretation Code Description Data Julia rce(s) Supporting Document(s) CO2 33 mmol/L CO2: 33 mmol/L 01/17/2020 CHART MAKER ([facility]) ID Date Data Source [id number] 01/17/2020 12:00:00 AM EDT CHARTMAKER ([facility]) Name Value Range Interpretation Code Description Data Julia rce(s) Supporting Document(s) CHLORIDE 99 mmol/L CHLORIDE: 99 mmol/L 2019 CHARTMAKER ([facility]) ID Date Data Source [id number] 01/17/2020 12:00:00 AM EDT CHARTMAKER ([facility]) Name Value Range Interpretation Code Description Data Julia rce(s) Supporting Document(s) Potassium 3.6 mmol/L Potassium: 3.6 mmol/L 01/17/2020 CHARTMAKER ([facility]) ID Date Data Source [id number] 01/17/2020 12:00:00 AM EDT [facility]MAKER [facility] Name Value Range Interpretation Code Description Data Julia rce(s) Supporting Document(s) SODIUM 135 mmol/L SODIUM: 135 mmol/L 020 CHARTMAKER ([facility]) Procedure Social History Code Duration Value Status Description Data Source(s ) Smoking 01/17/2020 12:00:00 AM EDT Smoker, current status unkn own completed Smoker, current status unknown CHARTMAKER ([facility]) Vital Signs ID Date Data Source UNK Name Value Range Interpretation Code Description Data Source(s) Body height 61 [in_i] 61 [in_i] LENNOX ([facility]) Body height 61 [in_i] 61 [in_i] LENNOX ([facility]) Body height 61 [in_i] 61 [in_i] LENNOX ([facility]) Body weight 2384 [oz_av] 2384 [oz_av] LENNOX ([facility]) Systolic blood pressure 113 mm[Hg] 113 mm[Hg] A [facility] ([facility]) Body mass index (BMI) [Ratio] 28.2 kg/m2 28.2 k g/m2 LENNOX ([facility]) Body height 61 [in_i] 61 [in_i] LENNOX ([facility]) Diastolic blood pressure 75 mm[Hg] 75 mm[Hg] LENNOX ([facility]) Body weight 2384 [oz_av] 2384 [oz_av] LENNOX ([facility]) Systolic blood pressure 113 mm[Hg] 113 mm[Hg] A [facility] ([facility]) Body mass index (BMI) [Ratio] 28.2 kg/m2 28.2 k g/m2 LENNOX ([facility]) Body height 61 [in_i] 61 [in_i] LENNOX ([facility]) Diastolic blood pressure 75 mm[Hg] 75 mm[Hg] LENNOX ([facility]) Body weight 2384 [oz_av] 2384 [oz_av] LENNOX ([facility]) Systolic blood pressure 113 mm[Hg] 113 mm[Hg] A THENA ([facility]) Body mass index (BMI) [Ratio] 28.2 kg/m2 28.2 k g/m2 LENNOX ([facility]) Body height 61 [in_i] 61 [in_i] LENNOX ([facility]) Diastolic blood pressure 75 mm[Hg] 75 mm[Hg] LENNOX ([facility]) Body weight 2448 [oz_av] 2448 [oz_av] LENNOX ([facility]) Systolic blood pressure 127 mm[Hg] 127 mm[Hg] [facility] Body mass index (BMI) [Ratio] 28.9 kg/m2 28.9 k g/m2 LENNOX ([facility]) Body height 61 [in_i] 61 [in_i] LENNOX ([facility]) Diastolic blood pressure 80 mm[Hg] 80 mm[Hg] LENNOX ([facility]) Body weight 2448 [oz_av] 2448 [oz_av] LENNOX ([facility]) Systolic blood pressure 127 mm[Hg] 127 mm[Hg] A THENA ([facility]) Body mass index (BMI) [Ratio] 28.9 kg/m2 28.9 k g/m2 LENNOX ([facility]) Body height 61 [in_i] 61 [in_i] LENNOX ([facility]) Diastolic blood pressure 80 mm[Hg] 80 mm[Hg] LENNOX ([facility]) Body weight 2448 [oz_av] 2448 [oz_av] LENNOX ([facility]) Systolic blood pressure 127 mm[Hg] 127 mm[Hg] [facility] Body mass index (BMI) [Ratio] 28.9 kg/m2 28.9 k g/m2 LENNOX ([facility]) Body height 61 [in_i] 61 [in_i] LENNOX ([facility]) Diastolic blood pressure 80 mm[Hg] 80 mm[Hg] LENNOX ([facility]) Body weight 2448 [oz_av] 2448 [oz_av] LENNOX ([facility]) Systolic blood pressure 127 mm[Hg] 127 mm[Hg] [facility] Body mass index (BMI) [Ratio] 28.9 kg/m2 28.9 k g/m2 LENNOX ([facility]) Body height 61 [in_i] 61 [in_i] LENNOX ([facility]) Diastolic blood pressure 80 mm[Hg] 80 mm[Hg] LENNOX ([facility]) Body weight 2627.2 [oz_av] 2627.2 [oz_av] ATHEN A ([facility]) Systolic blood pressure 108 mm[Hg] 108 mm[Hg] A [facility] ([facility]) Body height 61 [in_i] 61 [in_i] LENNOX ([facility]) Diastolic blood pressure 71 mm[Hg] 71 mm[Hg] LENNOX ([facility]) Body weight 2627.2 [oz_av] 2627.2 [oz_av] ATHEN A ([facility]) Systolic blood pressure 108 mm[Hg] 108 mm[Hg] [facility] Body height 61 [in_i] 61 [in_i] LENNOX ([facility]) Diastolic blood pressure 71 mm[Hg] 71 mm[Hg] LENNOX ([facility]) Body weight 2627.2 [oz_av] 2627.2 [oz_av] ATHEN A ([facility]) Systolic blood pressure 108 mm[Hg] 108 mm[Hg] [facility] Body height 61 [in_i] 61 [in_i] LENNOX ([facility]) Diastolic blood pressure 71 mm[Hg] 71 mm[Hg] LENNOX ([facility]) Body weight 2627.2 [oz_av] 2627.2 [oz_av] ATHEN A ([facility]) Systolic blood pressure 108 mm[Hg] 108 mm[Hg] [facility] Body height 61 [in_i] 61 [in_i] LENNOX ([facility]) Diastolic blood pressure 71 mm[Hg] 71 mm[Hg] LENNOX ([facility]) Body weight 74.844 kg 74.844 kg [facility] ([facility], ) Body mass index (BMI) [Ratio] 31.2 kg/m2 31.2 k g/m2 MEDJEANNIE ([facility], ) Body weight 165.00 [lb_av] 165.00 [lb_av] JOEEN T ([facility], ) Body height 61 [in_i] 61 [in_i] DONNA ([facility], ) 5'1" Diastolic blood pressure 68 mm[Hg] 68 mm[Hg] [facility] Systolic blood pressure 128 mm[Hg] 128 mm[Hg] M PRISCILLA ([facility], ) Body weight 2596 [oz_av] 2596 [oz_av] LENNOX ([facility]) Systolic blood pressure 101 mm[Hg] 101 mm[Hg] A [facility] ([facility]) Body height 61 [in_i] 61 [in_i] LENNOX ([facility]) Diastolic blood pressure 70 mm[Hg] 70 mm[Hg] LENNOX ([facility]) Body weight 2596 [oz_av] 2596 [oz_av] LENNOX ([facility]) Systolic blood pressure 101 mm[Hg] 101 mm[Hg] [facility] ([facility]) Body height 61 [in_i] 61 [in_i] LENNOX ([facility]) Diastolic blood pressure 70 mm[Hg] 70 mm[Hg] LENNOX ([facility]) Body weight 2596 [oz_av] 2596 [oz_av] LENNOX ([facility]) Systolic blood pressure 101 mm[Hg] 101 mm[Hg] [facility] ([facility]) Body height 61 [in_i] 61 [in_i] LENNOX ([facility]) Diastolic blood pressure 70 mm[Hg] 70 mm[Hg] LENNOX ([facility]) Body weight 2596 [oz_av] 2596 [oz_av] LENNOX ([facility]) Systolic blood pressure 101 mm[Hg] 101 mm[Hg] A THEN ([facility]) Body height 61 [in_i] 61 [in_i] LENNOX ([facility]) Diastolic blood pressure 70 mm[Hg] 70 mm[Hg] LENNOX ([facility]) Body weight 77.112 kg 77.112 kg [facility] ([facility], ) Body mass index (BMI) [Ratio] 32.1 kg/m2 32.1 k g/m2 [facility] ([facility]) Body weight 170.00 [lb_av] 170.00 [lb_av] [facility] Body height 61 [in_i] 61 [in_i] [facility] ([facility]) 5'1" Body weight 81.648 kg 81.648 kg [facility] ([facility]) Body mass index (BMI) [Ratio] 34.0 kg/m2 34.0 k g/m2 [facility] ([facility]) Body weight 180.00 [lb_av] 180.00 [lb_av] [facility] Body height 61 [in_i] 61 [in_i] [facility] ([facility]) 5'1" Diastolic blood pressure 64 mm[Hg] 64 mm[Hg] [facility] ([facility]) Systolic blood pressure 118 mm[Hg] 118 mm[Hg] M PRISCILLA ([facility], ) Body weight 2752 [oz_av] 2752 [oz_av] LENNOX ([facility]) Systolic blood pressure 121 mm[Hg] 121 mm[Hg] A THEN ([facility]) Body height 61 [in_i] 61 [in_i] LENNOX ([facility]) Diastolic blood pressure 78 mm[Hg] 78 mm[Hg] LENNOX ([facility]) Body weight 2752 [oz_av] 2752 [oz_av] LENNOX ([facility]) Systolic blood pressure 121 mm[Hg] 121 mm[Hg] A THENA ([facility]) Body height 61 [in_i] 61 [in_i] LENNOX ([facility]) Diastolic blood pressure 78 mm[Hg] 78 mm[Hg] LENNOX ([facility]) Body weight 2752 [oz_av] 2752 [oz_av] LENNOX ([facility]) Systolic blood pressure 121 mm[Hg] 121 mm[Hg] A THENA ([facility]) Body height 61 [in_i] 61 [in_i] LENNOX ([facility]) Diastolic blood pressure 78 mm[Hg] 78 mm[Hg] LENNOX ([facility]) Body weight 2752 [oz_av] 2752 [oz_av] LENNOX ([facility]) Systolic blood pressure 121 mm[Hg] 121 mm[Hg] [facility] ([facility]) Body height 61 [in_i] 61 [in_i] LENNOX ([facility]) Diastolic blood pressure 78 mm[Hg] 78 mm[Hg] LENNOX ([facility]) Body weight 3286.08 [oz_av] 3286.08 [oz_av] ATH KIM ([facility]) Systolic blood pressure 131 mm[Hg] 131 mm[Hg] [facility] Body height 61 [in_i] 61 [in_i] LENNOX ([facility]) Diastolic blood pressure 80 mm[Hg] 80 mm[Hg] LENNOX ([facility]) Body weight 3286.08 [oz_av] 3286.08 [oz_av] ATH KIM ([facility]) Systolic blood pressure 131 mm[Hg] 131 mm[Hg] [facility] Body height 61 [in_i] 61 [in_i] LENNOX ([facility]) Diastolic blood pressure 80 mm[Hg] 80 mm[Hg] LENNOX ([facility]) Body weight 3286.08 [oz_av] 3286.08 [oz_av] ATH KIM ([facility]) Systolic blood pressure 131 mm[Hg] 131 mm[Hg] [facility] Body height 61 [in_i] 61 [in_i] LENNOX ([facility]) Diastolic blood pressure 80 mm[Hg] 80 mm[Hg] LENNOX ([facility]) Body weight 3286.08 [oz_av] 3286.08 [oz_av] ATH KIM ([facility]) Systolic blood pressure 131 mm[Hg] 131 mm[Hg] A THENA ([facility]) Body height 61 [in_i] 61 [in_i] LENNOX ([facility]) Diastolic blood pressure 80 mm[Hg] 80 mm[Hg] LENNOX ([facility]) Inhaled oxygen concentration 21 % 21 % CHARTMAKER ([facility]) Oxygen saturation in Arterial blood by Pulse oximetry 97 % 97 % CHARTMAKER ([facility]) Body mass index (BMI) [Ratio] 35.6819961971207 kg/m2 35.3295636518302 kg/m2 CHARTMAKER ([facility]) Body weight [...] Care) Body temperature 99.2 [degF] 99.2 [degF] PIERRECrys JOAQUIN ([facility]) ID Date Data Source [id number] 03/26/2020 03:10:00 PM EDT [facility] Name Value Range Interpretation Code Description Data Source(s) Weight Measurement Method 1 1 [facility] Weight (Calculated Kilograms) 93.44 93.44 [facility] Weight 3358.4 3358.4 [facility] Temperature Source 7 7 [facility] Temperature 99 99 [facility] Respiratory Effort 1 1 [facility] Respiratory Rate [address] [facility] Pulse Assessment Method 4 4 [facility] Pulse Rate 118 118 [facility] Height (Calculated Centimeters) 154.94 154. 94 [facility] Height 61 61 [facility] Blood Pressure 133/88 133/88 [facility] Body Mass Index (BMI) 38.9 38.9 [facility] Weight Measurement Method 1 1 [facility] Weight (Calculated Kilograms) 93.44 93.44 [facility] Weight 3358.4 3358.4 [facility] Temperature Source 7 7 [facility] Temperature 99 99 [facility] Respiratory Effort 1 1 [facility] Respiratory Rate [address] [facility] Pulse Assessment Method 4 4 [facility] Pulse Rate 118 118 [facility] Height (Calculated Centimeters) 154.94 154. 94 [facility] Height 61 61 [facility] Blood Pressure 133/88 133/88 [facility] Body Mass Index (BMI) 38.9 38.9 [facility] Weight Measurement Method 1 1 [facility] Weight (Calculated Kilograms) 93.44 93.44 [facility] Weight 3358.4 3358.4 [facility] Temperature Source 7 7 [facility] Temperature 99 99 [facility] Respiratory Effort 1 1 [facility] Respiratory Rate [address] [facility] Pulse Assessment Method 4 4 [facility] Pulse Rate 118 118 [facility] Height (Calculated Centimeters) 154.94 154. 94 [facility] Height 61 61 [facility] Blood Pressure 133/88 133/88 [facility] Body Mass Index (BMI) 38.9 38.9 [facility] Weight Measurement Method 1 1 [facility] Weight (Calculated Kilograms) 93.44 93.44 [facility] Weight 3152 3152 [facility] Temperature Source 7 7 [facility] Temperature 98.6 98.6 [facility] Respiratory Effort 1 1 [facility] Respiratory Rate [address] [facility] Pulse Assessment Method 4 4 [facility] Pulse Rate 122 122 [facility] Height (Calculated Centimeters) 154.94 154. 94 [facility] Height 61 61 [facility] Blood Pressure 97/61 97/61 [facility] Body Mass Index (BMI) 38.9 38.9 [facility] Weight Measurement Method 1 1 [facility] Weight (Calculated Kilograms) 93.44 93.44 [facility] Weight 3128 3128 [facility] Temperature Source 7 7 [facility] Temperature 98.9 98.9 [facility] Respiratory Effort 1 1 [facility] Respiratory Rate [address] [facility] Pulse Assessment Method 4 4 [facility] Pulse Rate 118 118 [facility] Height (Calculated Centimeters) 154.94 154. 94 [facility] Height 61 61 [facility] Blood Pressure 88/52 88/52 [facility] Body Mass Index (BMI) 38.9 38.9 [facility] Weight Measurement Method 1 1 [facility] Weight (Calculated Kilograms) 93.44 93.44 [facility] Weight 3296 3296 [facility] Temperature Source 7 7 [facility] Temperature 98.2 98.2 [facility] Respiratory Rate [address] [facility] Pulse Assessment Method 4 4 [facility] Pulse Rate 130 130 [facility] Height (Calculated Centimeters) 154.94 154. 94 [facility] Height 61 61 [facility] Blood Pressure 104/66 104/66 [facility] Body Mass Index (BMI) 38.9 38.9 [facility] ID Date Data Source [id number] 03/19/2020 12:09:00 PM EDT [facility] Name Value Range Interpretation Code Description Data Source(s) Weight Measurement Method 8 8 [facility] Weight [address] [facility] Temperature Source 1 1 [facility] Temperature 98.8 98.8 [facility] Respiratory Effort 1 1 [facility] Respiratory Rate 16 16 [facility] Pulse Assessment Method 4 4 [facility] 107 107 [facility] [address] [facility] Blood Pressure 136/99 136/99 [facility] Weight Measurement Method 8 8 [facility] Weight 3360 3360 [facility] Temperature Source 7 7 [facility] Temperature 99.0 99.0 [facility] Respiratory Effort 1 1 [facility] Respiratory Rate 18 18 [facility] Pulse Assessment Method 4 4 G [facility] Pulse Rate 105 105 [facility] pital Height 61 61 [facility] Blood Pressure 138/105 138/105 [facility] Patient Treatment Plan of Care Planned Activity Planned Date Details Description Data Source (s) zaleplon 5 MG Oral Capsule A THENA ([facility]) venlafaxine 37.5 MG Oral Tablet LENNOX ([facility]) torsemide 20 MG Oral Tablet L[facility]NOX ([facility]) Spironolactone 25 MG Oral Tablet [facility] ([facility]) Shingrix (PF) 50 mcg/0.5 mL [facility]uscular suspension, [facility] Lactulose 667 MG/ML Oral Solution [facility]X ([facility]) Lactulose 667 MG/ML [facility] Furosemide 40 MG Oral Tablet L[facility]X ([facility]) Furosemide 20 MG Oral Tablet LENNOX ([facility]) Fluzone Quad 60 mcg (15 mcg x 4)/0.5 mL intramuscular susp. INJECT INTO THE LEFT ARM DIRECTED AT [facility]) Ciprofloxacin 500 MG Oral Tablet LENNOX ([facility]) Cephalexin 500 MG Oral Capsule LENNOX ([facility]) zaleplon 5 MG Oral Capsule A THENA [facility]) Spironolactone 25 MG Oral Tablet LENNOX ([facility]) Lactulose 667 MG/ML Oral Solution LENNOX ([facility]) Furosemide 20 MG Oral Tablet [facility]X ([facility]) Fluzone Quad 60 mcg (15 mcg x 4)/0.5 mL intramuscular susp. INJECT INTO THE LEFT ARM DIRECTED AT [facility]) Cephalexin 500 MG Oral Capsule LENNOX ([facility]) zaleplon 5 MG Oral Capsule A THENA [facility]) Spironolactone 25 MG Oral Tablet LENNOX ([facility]) Lactulose 667 MG/ML Oral Solution LENNOX ([facility]) Furosemide 20 MG Oral Tablet LENNOX ([facility]) Fluzone Quad 60 mcg (15 mcg x 4)/0.5 mL intramuscular susp. INJECT INTO THE LEFT ARM DIRECTED AT [facility] ([facility]) Cephalexin 500 MG Oral Capsule LENNOX ([facility]) zaleplon 5 MG Oral Capsule A ANNIA ([facility]) Spironolactone 25 MG Oral Tablet LENNOX ([facility]) Lactulose 667 MG/ML Oral Solution LENNOX ([facility]) Furosemide 20 MG Oral Tablet LENNOX ([facility])
--- NOTE | 2020-11-15 19:00 | HPEPDOC ---
[facility] Medical History & Physical Date of Admission Nov 15, 2020 Date of Service: Nov 15, 2020 History and Physical CHIEF COMPLAIN: abd distention, 20lb weight gain, leg swelling HISTORY OF PRESENT ILLNESS: 60 y/o F w h/o ETOH liver cirrhosis, recurrent ascites, portal htn not a candidate for TIPS, on liver transplant list,quit EOTH >6months ago was sent by Dr. Keila FLEMING for admission due to decompensated liver disease with recurrent ascites. She c/o 20lb weight gain, increasing LE edema, fatigue, sob w exertion, and abd pain due to increasing abdominal distention. she denies cough fever chills hematemesis coffee ground emesis brbpr black tarry stools, and has a scheduled paracentesis tomorrow at 11am. In the ER, pt had a creatinine of 2, and hospitalist was asked to admit for ascites, acute kidney injury, hyponatremia from liver cirrhosis. no fever but admits to nausea. She denies confusion, headache, changes in vision despite hyponatremia. no NSAID use. PAST MEDICAL HISTORY: ETOH liver cirrhosis w portal htn ,recurrent ascites not a candidate for TIPS PAST SURGICAL HISTORY: paracentesis HOME MEDICATIONS: SEE BELOW ALLERGY: SEE BELOW FAMILY HISTORY: FATHER CAD MATERNAL UNCLE cancer ROS : 12POINT ROS NEG ASIDE FROM +FINDINGS ON HPI PHYSICAL EXAMINATION: VITAL SIGNS: SEE BELOW GENERAL APPEARANCE:No jaundice no distress HEENT: anicteric PERRL EOMI no jvd dry mm CARDIOVASCULAR: s1s2 rrr ABDOMEN: distended +fluid wave reducible umbilical hernia w erythema +bs tense no rebound or guarding EXTREMITIES: 2+ pitting edema LABORATORY DATA: See below. MICROBIOLOGY: Please see below. ASSESSMENT: 60 y/o F w h/o ETOH liver cirrhosis, recurrent ascites, portal htn not a candidate for TIPS, on liver transplant list,quit EOTH >6months ago was sent by Dr. Keila FLEMING for admission due to decompensated liver disease with recurrent ascites. She c/o 20lb weight gain, increasing LE edema, fatigue, sob w exertion, and abd pain due to increasing abdominal distention. she denies cough fever chills hematemesis coffee ground emesis brbpr black tarry stools, and has a scheduled paracentesis tomorrow at 11am. In the ER, pt had a creatinine of 2, and hospitalist was asked to admit for ascites, acute kidney injury, hyponatremia from liver cirrhosis. no fever but admits to nausea. She denies con fusion, headache, changes in vision despite hyponatremia. no NSAID use. Acute Decompensated liver cirrhosis with recurrent ascites ETOH Liver cirrhosis portal hypertension Hyponatremia Acute Kidney injury Reducible nonincarcerated umbilical hernia Chronic thrombocytopenia chronic anemia Plan: paracentesis, albumin infusion 25%, lasix, kayexalate with repeat serum potassium level, serial mp for hyponatremia. sodium tabs and diuresis.keep MAP>70 trial of low dose midodrine 2.5mg tid. strict i/o daily weights and nephrology consult in am if sodium<120. seizure precautions from hyponatremia. fluid restriction. compression stockings. regular diet. PLAN: Vital Signs Vital Signs Date Time Temp Pulse Resp B/P (MAP) Pulse Ox O2 Delivery O2 Flow Rate FiO2 11/15/20 16:46 11/15/20 15:51 97.8 90 20 100 Room Air Laboratory Data Labs 24H Laboratory Tests 2 11/15/20 16:34: Immature Granulocyte % (Auto) 0.5, Neutrophils (%) (Auto) 75.1H, Lymphocytes (%) (Auto) 9.1L, Monocytes (%) (Auto) 13.8H, Eosinophils (%) (Auto) 1.1, Basophils (%) (Auto) 0.4, Neutrophils # (Auto) 6.0, Lymphocytes # (Auto) 0.7L, Monocytes # (Auto) 1.1H, Eosinophils # (Auto) 0.1, Basophils # (Auto) 0.0, Nucleated Red Blood Cells % (auto) 0.0, Anion Gap 8, Glomerular Filtration Rate 26.0L, Calcium Level 8.7, Total Bilirubin 2.7H, Direct Bilirubin 1.2H, Aspartate Amino Transf (AST/SGOT) 45H, Alanine Aminotransferase (ALT/SGPT) 28, Alkaline Phosphatase 145H, Total Protein 6.1L, Albumin 3.3, Albumin/Globulin Ratio 1.2, Lipase 1109H 11/15/20 16:45: Coronavirus (COVID-19)(PCR) NEGATIVE, Influenza Type A (RT-PCR) NEGATIVE, Influenza Type B (RT-PCR) NEGATIVE, Respiratory Syncytial Virus (PCR) NEGATIVE CBC/BMP Laboratory Tests 11/15/20 16:34 Home Medications Scheduled Ciprofloxacin HCl (Ciprofloxacin HCl) 500 Mg Tablet, 500 MG PO DAILY TAKES AFTER LUNCH Folic Acid (Folic Acid) 1 Mg Tablet, 1 MG PO DAILY TAKES AFTER LUNCH Gabapentin (Gabapentin) 300 Mg Capsule, 300 MG PO QAM Gabapentin (Gabapentin) 300 Mg Capsule, 600 MG PO QHS Lactulose (Lactulose) 10 Gm/15 Ml Solution, 15 ML PO BID Pantoprazole Sodium (Pantoprazole Sodium) 40 Mg Tablet.dr, 40 MG PO DAILY Spironolactone (Spironolactone) 50 Mg Tablet, 50 MG PO BID Scheduled PRN Trazodone HCl (Trazodone HCl) 50 Mg Tablet, 50 MG PO QHS PRN for INSOMNIA Allergies Coded Allergies: No Known Allergies (Unverified , 03/28/20) A-FIB/CHADSVASC A-FIB History Current/History of A-Fib/PAF?: No Current PO Anticoag Therapy: No Age/Risk Factor Scoring CHADSVASC: CHADSVASC Response (Comments) Value Age Risk Factor Age < 65 years old 0 Gender Risk Factor Female 1 Hx of CHF No 0 Hx of HTN No 0 Hx of Stroke/TIA/or VTE No 0 Hx of Diabetes No 0 Hx of Vascular Disease No 0 Total 1 Treatment Treatment ordered: NONE HANK FONTANA MD Nov 15, 2020 18:56
[2020-11-15 19:13] LABS: FREE T4 0.84 NG/DL (0.76-1.46); THYROID STIMULATING HORMONE 2.54 uIU/ML (0.358-3.740)
[2020-11-15 20:17] VITALS: BP 109/70
[2020-11-15] MEDS ORDERED: SPIRONOLACTONE 50 MG TAB PO SCH (21:00)
[2020-11-15] MEDS ORDERED: NICOTINE 14 MG/24 HR TRANSDERMAL TD SCH (22:00)
[2020-11-15] MEDS: metroNIDAZOLE (FLAGYL) 500MG TABLET PO SCH (22:01)
[2020-11-15] MEDS: LACTULOSE 20 GM/30 ML SYRUP UD PO SCH (22:01)
[2020-11-16] VITALS (11 sets, daily range): BP systolic 73–107; BP diastolic 33–73
[2020-11-16] MEDS: metroNIDAZOLE (FLAGYL) 500MG TABLET PO SCH ×3 (05:05→21:12)
[2020-11-16] MEDS ORDERED: metOLazone 5 MG TAB PO ONE (07:15)
[2020-11-16] MEDS ORDERED: FUROSEMIDE 40MG/4ML VIAL (J1940) IV ONE (07:45)
--- NOTE | 2020-11-16 07:46 | REP ---
INDICATION: sob COMPARISON: 04/05/2020 TECHNIQUE: Portable AP view of the chest FINDINGS: The mediastinum and cardiac silhouette are stable and within normal limits for portable technique. The lung larsen are clear without acute consolidation, effusion, or pneumothorax. Skeletal structures are intact. IMPRESSION: No acute cardiopulmonary process appreciated. <Electronically signed by Harshal Vaughn > 11/16/20 0731
[2020-11-16] MEDS ORDERED: MIDODRINE 5 MG TAB PO SCH (08:00)
[2020-11-16] MEDS ORDERED: SODIUM CHLORIDE 1 GM TAB PO SCH (08:00)
[2020-11-16 08:30] LABS: BASO % 0.6 % (0.0-1.0); EOS # 0.1 10^3/uL (0.0-0.5); EOS % 1.6 % (0.0-3.0); HEMATOCRIT 25.9 % (36.0-47.0); HEMOGLOBIN 9.2 g/dl (12.0-15.5); LYMPH # 0.9 10^3/uL (1.5-5.0); LYMPH % 13.3 % (24.0-44.0); MEAN CORPUSCULAR HEMOGLOBIN 31.5 pg (27.0-33.0); MEAN CORPUSCULAR HGB CONC 35.5 g/dl (32.0-36.5); MEAN CORPUSCULAR VOLUME 88.7 fl (80.0-96.0); MONO # 0.6 10^3/uL (0.0-0.8); MONO % 8.6 % (0.0-5.0); NEUTROPHILS # 4.8 10^3/uL (1.5-8.5); NEUTROPHILS % 75.1 % (36.0-66.0); PLATELET COUNT, AUTOMATED 116 10^3/uL (150-450); RED BLOOD COUNT 2.92 10^6/uL (4.00-5.40); WHITE BLOOD COUNT 6.4 10^3/uL (4.0-10.0)
[2020-11-16] MEDS ORDERED: FUROSEMIDE 40MG/4ML VIAL (J1940) IV SCH (09:00)
[2020-11-16] MEDS ORDERED: NICOTINE 14 MG/24 HR TRANSDERMAL TD SCH (09:00)
[2020-11-16 09:01] LABS: ALBUMIN 3.3 GM/DL (3.2-5.2); BILIRUBIN,TOTAL 2.7 MG/DL (0.2-1.0); CALCIUM LEVEL 8.5 MG/DL (8.5-10.1); CREATININE FOR GFR 1.92 MG/DL (0.55-1.30); GLOMERULAR FILTRATION RATE 28.6 (>51); MAGNESIUM LEVEL 2.6 MG/DL (1.8-2.4); POTASSIUM SERUM 4.9 MEQ/L (3.5-5.1); TOTAL PROTEIN 5.8 GM/DL (6.4-8.2)
[2020-11-16] MEDS: LACTULOSE 20 GM/30 ML SYRUP UD PO SCH ×2 (09:42→21:12)
[2020-11-16] MEDS: MIDODRINE 5 MG TAB PO SCH ×3 (09:43→16:28)
[2020-11-16] MEDS: PANTOPRAZOLE 40MG TAB (PROTONIX) PO SCH (09:43)
--- NOTE | 2020-11-16 10:06 | IPNPDOC ---
Date Seen The patient was seen on 11/16/20. Progress Note SUBJECTIVE: Complains of diffuse abdominal discomfort with persistent abdominal distention, Without nausea, vomiting, diarrhea, fever or chills. PHYSICAL EXAMINATION: VITAL SIGNS: SEE BELOW GENERAL APPEARANCE:No jaundice no distress. Speaks in full sentences HEENT: anicteric PERRL EOMI no jvd. Moist mm. No stridor. No carotid bruit CARDIOVASCULAR: s1s2 rrr ABDOMEN: distended +fluid wave reducible umbilical hernia w erythema +bs tense no rebound or guarding. Unable to assess for hepatosplenomegaly due to distention EXTREMITIES: 2+ pitting edema LABORATORY DATA: See below. IMAGING STUDIES: CHEST XRAY: INDICATION: sob COMPARISON: 04/05/2020 TECHNIQUE: Portable AP view of the chest FINDINGS: The mediastinum and cardiac silhouette are stable and within normal limits for portable technique. The lung larsen are clear without acute consolidation, effusion, or pneumothorax. Skeletal structures are intact. IMPRESSION: No acute cardiopulmonary process appreciated. <Electronically signed by Harshal Vaughn > 11/16/20 0742 MICROBIOLOGY: Please see below. ASSESSMENT: 60 y/o F w h/o ETOH liver cirrhosis, recurrent ascites, portal htn not a candidate for TIPS, on liver transplant list,quit EOTH >6months ago was sent by GIDr. Pedraza for admission due to decompensated liver disease with recurrent ascites. She c/o 20lb weight gain, increasing LE edema, fatigue, sob w exertion, and abd pain due to increasing abdominal distention. she denies cough fever chills hematemesis coffee ground emesis brbpr black tarry stools, and has a scheduled paracentesis tomorrow at 11am. In the ER, pt had a creatinine of 2, and hospitalist was asked to admit for ascites, acute kidney injury, hyp onatremia from liver cirrhosis. no fever but admits to nausea. She denies confusion, headache, changes in vision despite hyponatremia. no NSAID use. Acute Decompensated liver cirrhosis with recurrent ascites -Therapeutic paracentesis -Strict I's and O's, daily weights -IV Lasix diuresis, IV albumin After paracentesis -Maintain mean arterial pressure greater 65-70 -Trial of midodrine Acute Kidney injury -Due to decreased circulating arterial volume from decompensated liver cirrhosis with ascites and third spacing -Patient will need to increase arterial volume by using intravenous albumin tra nsfusions -Avoid hypotension -keep mean arterial pressure at 65-70 by using midodrine and IV albumin transfusions -Monitor for electrolytes and metabolic acidosis had corrected as needed -Avoid nephrotoxins and renally dose all medications. -Monitor serial basic metabolic panel while on Lasix Hypotonic hypervolemic hyponatremia -Due to decompensated liver cirrhosis -No acute mental status changes and denies symptoms of hyponatremia including headache, changes in vision, poor concentration, seizure activity -Sodium tablets with meals -Diuresis with IV Lasix combined with IV albumin to prevent third spacing and anasarca ETOH Liver cirrhosis with portal hypertension -Quit alcohol 6 months ago -On liver transplant list -Lining Inserter, Dr. Pedraza consulted -On Xifaxan, lactulose Hyperkalemia, resolved -Due to acute kidney injury Reducible non-incarcerated umbilical hernia -Outpatient surgical referral Chronic thrombocytopenia -No active signs of bleeding -Due to alcoholic liver cirrhosis chronic anemia -No signs of active GI bleed DVT prophylaxis. Compression stockings Diet renal diet Fluid restriction 1.5 L CODE STATUS full code VS, I&O, 24H, [facility] Vital Signs/I&O Vital Signs Date Time Temp Pulse Resp B/P (MAP) Pulse Ox O2 Delivery O2 Flow Rate FiO2 11/16/20 09:39 96.8 78 18 88/46 Room Air 11/16/20 07:45 100 I&O- Last 24 Hours up to 6 AM 11/16/20 06:00 Intake Total 410 ml Output Total 0 ml Balance 410 ml Laboratory Data 24H LABS Laboratory Tests 2 11/15/20 16:34: Immature Granulocyte % (Auto) 0.5, Neutrophils (%) (Auto) 75.1H, Lymphocytes (%) (Auto) 9.1L, Monocytes (%) (Auto) 13.8H, Eosinophils (%) (Auto) 1.1, Basophils (%) (Auto) 0.4, Neutrophils # (Auto) 6.0, Lymphocytes # (Auto) 0.7L, Monocytes # (Auto) 1.1H, Eosinophils # (Auto) 0.1, Basophils # (Auto) 0.0, Nucleated Red Blood Cells % (auto) 0.0, Anion Gap 8, Glomerular Filtration Rate 26.0L, Osmolality 271L, Calcium Level 8.7, Total Bilirubin 2.7H, Direct Bilirubin 1.2H, Aspartate Amino Transf (AST/SGOT) 45H, Alanine Aminotransferase (ALT/SGPT) 28, Alkaline Phosphatase 145H, Total Protein 6.1L, Albumin 3.3, Albumin/Globulin Ratio 1.2, Lipase 1109H, Thyroid Stimulating Hormone (TSH) 2.540, Free Thyroxine 0.84 11/15/20 16:45: Coronavirus (COVID-19)(PCR) NEGATIVE, Influenza Type A (RT-PCR) NEGATIVE, In fluenza Type B (RT-PCR) NEGATIVE, Respiratory Syncytial Virus (PCR) NEGATIVE 11/16/20 08:06: Immature Granulocyte % (Auto) 0.8, Neutrophils (%) (Auto) 75.1H, Lymphocytes (%) (Auto) 13.3L, Monocytes (%) (Auto) 8.6H, Eosinophils (%) (Auto) 1.6, Basophils (%) (Auto) 0.6, Neutrophils # (Auto) 4.8, Lymphocytes # (Auto) 0.9L, Monocytes # (Auto) 0.6, Eosinophils # (Auto) 0.1, Basophils # (Auto) 0.0, Nucleated Red Blood Cells % (auto) 0.0, Anion Gap 10, Glomerular Filtration Rate 28.6L, Calcium Level 8.5, Total Bilirubin 2.7H, Aspartate Amino Transf (AST/SGOT) 44H, Alanine Aminotransferase (ALT/SGPT) 29, Alkaline Phosphatase 133H, Total Protein 5.8L, Albumin 3.3, Albumin/Globulin Ratio 1.3, Magnesium Level 2.6H CBC/BMP Laboratory Tests 11/15/20 16:34 11/16/20 08:06 HANK FONTANA MD Nov 16, 2020 10:06
[2020-11-16] MEDS: FOLIC ACID 1 MG TAB PO SCH (13:25)
[2020-11-16] MEDS: CIPROFLOXACIN 500MG TABLET PO SCH (13:25)
[2020-11-16 15:54] LABS: APPEARANCE, URINE CLEAR (CLEAR); BACTERIA, URINE AUTO NEGATIVE (NEGATIVE); BILIRUBIN, URINE AUTO NEGATIVE (NEGATIVE); BLOOD, URINE BLOOD NEGATIVE (NEGATIVE); COLOR, URINE YELLOW (YELLOW); GLUCOSE, URINE (UA) AUTO NEGATIVE (NEGATIVE); KETONE, URINE AUTO NEGATIVE (NEGATIVE); LEUKOCYTE ESTERASE, URINE AUTO NEGATIVE (NEGATIVE); MUCUS, URINE SMALL (NEGATIVE); NITRITE, URINE AUTO NEGATIVE (NEGATIVE); PROTEIN, URINE AUTO NEGATIVE (NEGATIVE); RBC, URINE AUTO 0 /HPF (0-3); SPECIFIC GRAVITY URINE AUTO 1.013 (1.002-1.035); SQUAMOUS EPITHELIAL CELL UR AU 1 /HPF (0-6); UROBILINOGEN, URINE AUTO 0.2 mg/dL (0.0-2.0); WBC, URINE AUTO 1 /HPF (0-3)
[2020-11-16 16:24] LABS: CHLORIDE,RANDOM URINE < 10 MEQ/L; CREATININE,RANDOM URINE 90.3 MG/DL; POTASSIUM RANDOM URINE 13.8 MEQ/L; SODIUM,RANDOM URINE < 10 MEQ/L
--- NOTE | 2020-11-16 17:17 | REP ---
INDICATION: ascites. COMPARISON: None. TECHNIQUE: The procedure was performed under the direct supervision of Dr. Galan. The risks and benefits of the procedure were explained to the patient and informed consent was obtained. The risks and benefits of the procedure were explained to the patient and informed consent was obtained. The largest pocket of fluid was localized in the right flank using ultrasound guidance. The skin was prepped and draped in a sterile fashion. 1% lidocaine was used as a local anesthetic. An 8-Uzbek multi side-hole catheter was inserted using trocar technique. 6500 cc of yellow fluid was withdrawn and discarded. The patient tolerated the procedure well and there were no immediate complications. After the appropriate amount of monitored convalescence, the patient was discharged from the department. FINDINGS: None IMPRESSION: Ultrasound-guided paracentesis yielding 6500 cc of yellow fluid. <Electronically signed by Nathanael Garduno > 11/16/20 1044 <Electronically signed by Heron Galan > 11/16/20 [id number]
[2020-11-16] MEDS: OCTREOTIDE ACETATE 1,200 MCG in NS 238.8 ML IV SCH (17:51)
--- NOTE | 2020-11-16 18:10 | CR ---
NEPHROLOGY CONSULTATION DATE: 11/16/2020 REQUESTING PHYSICIAN: Dr. Zee Richard CONSULTING PHYSICIAN: Dr. Parker REASON FOR CONSULTATION: Management of acute kidney injury in the setting of decompensated cirrhosis. CHIEF COMPLAINT: The patient presented to the hospital yesterday because of abdominal distention and weight gain. HISTORY OF PRESENT ILLNESS: The patient is a 60-year-old female with a past medical history of alcoholic cirrhosis with portal hypertension, recurrent ascites, requiring paracentesis almost once a week. She follows up with GI as an outpatient. She presented to the hospital with fatigue, 20-pound weight gain, abdominal distention and swelling, shortness of breath, and it was difficult to manage the patient as an outpatient with diuretics, so she was admitted under the Hospitalist Service last night. Her creatinine on arrival was 2. Last baseline creatinine as per previous records is 1 as of August 2020. Nephrology Service was called for further help in the management of this patient with recurrent ascites and adjustment of diuretics in the setting of worsening renal function. I saw and evaluated the patient at the bedside today morning. She was awake and alert and she was able to provide me with a history. The patient reports that she is sober since March 2020 and apparently she has been listed for transplant at [place] as well. PAST MEDICAL HISTORY: The patient's past medical history is significant for: 1. Alcoholic cirrhosis. 2. Portal hypertension. 3. Recurrent ascites. 4. As mentioned in the documentation, she is not a candidate for TIPS procedure. She is active on the transplant list. PAST SURGICAL HISTORY: The patient's past surgical history is significant for: 1. She gets per paracentesis done. 2. She had a in the past. 3. No other significant procedures recently. ALLERGIES: No known drug allergies. FAMILY HISTORY: No significant family history of end-stage renal disease requiring hemodialysis. SOCIAL HISTORY: The patient lives at home. She reports that she is not drinking alcohol since March 2020. She denies any additional drug abuse. REVIEW OF SYSTEMS: Constitutional: She reports fatigue but she denies any fevers or chills. Eyes: She denies any blurry vision, double vision. ENT: She denies any dysphagia or odynophagia. Cardiovascular: She denies any chest pain or palpitations. Respiratory: She reports shortness of breath. GI: She reports abdominal distention, recurrent ascites and cirrhosis. Genitourinary: She reports decreased urine output. Musculoskeletal: She denies any aches and pains. Skin: She denies any rashes or ulcers. Hematological/Oncological: She denies any easy bleeding or bruising. KNOT PICKER CLOTH: She denies any strokes or seizures. All other review of systems is negative. PHYSICAL EXAMINATION: GENERAL APPEARANCE: The patient is awake, alert, oriented x3. VITAL SIGNS: Temperature is 98.4 degrees Fahrenheit, blood pressure 104/41, pulse of 73, respiratory rate of 19, saturating 100% on room air. HEAD AND NECK: Extraocular muscles intact. Pupils are equally round and reactive to light. Mucous membranes are moist. Neck is supple. She has mild jaundice in the sclerae. CARDIOVASCULAR: S1, S2, regular rate. EXTREMITIES: No edema of the bilateral lower extremities. RESPIRATORY: Mildly decreased breath sounds at the bases, otherwise no active rales or rhonchi. ABDOMEN: Significantly distended. She has large volume ascites. Her umbilicus has an umbilical hernia because of large volume ascites. GENITOURINARY: Bladder is not palpable. MUSCULOSKELETAL: No clubbing, no cyanosis. Pulses are 2+. KNOT PICKER CLOTH: No focal deficits. No asterixis was noted. LAB REVIEW: CBC showed a white blood cell count of 6.4, hemoglobin is 9.2, platelet count 116. Urinalysis showed negative protein, negative nitrites. Urine random creatinine is 90.3, urine random sodium is less than 10, potassium is 13.8, chloride is less than 10. BMP showed sodium 125, potassium 4.9, chloride 94, bicarbonate 21, BUN 55, creatinine is 1.9. Calcium is 8.5, magnesium is 2.6, total bilirubin is 2.7, AST is 44, alkaline phosphatase is 133, total protein is 5.8. IMAGING: A chest x-ray was done which showed no acute cardiopulmonary process. CURRENT INPATIENT MEDICATIONS: The patient's medications were all reviewed by myself. She was given IV one dose of calcium gluconate. She is currently on Ciprofloxacin 500 mg p.o. daily, folic acid one mg p.o. daily. She was getting Lasix 40 mg IV twice daily which I have stopped now and she is on Lactulose 15 mL p.o. twice daily, Flagyl 500 mg p.o. q. 8 hourly, Midodrine has been started by the Medical Team at 10 mg p.o. three times daily. Protonix 40 mg p.o. daily. She was given a dose of Kayexalate 15 grams p.o. times one dose yesterday. She was also on Spironolactone 50 mg twice daily which has been stopped and she is on Trazodone 50 mg q. h.s. ASSESSMENT AND PLAN: 1. Acute renal failure - The patient has oliguric renal failure. Urinalysis showed no proteinuria or hematuria. Urine random sodium is less than 10 which tells us about inadequate renal perfusion. Very low urine sodium levels are either because of her decompensated cirrhosis with tense ascites or hepatorenal syndrome. However at this point clinically I would treat the patient as hepatorenal syndrome. She is already on albumin. Midodrine dose has been increased to 10 mg p.o. three times daily. I have also started the patient on Sandostatin infusion. It is okay to get the paracentesis done today. Diuretics have been stopped. 2. Hyponatremia - The patient has hypervolemic hyponatremia. Sodium levels should get better with IV albumin infusions and paracentesis. 3. Hyperkalemia It is secondary to acute renal failure and metabolic acidosis. Potassium level is better at 4.9 today. She was already given a dose of Kayexalate as well. 4. Decompensated alcoholic cirrhosis with ascites the patient gets frequent ascitic taps, almost one ascitic tap a week. She reports that she gets at least 9-10 kg of fluid removed. Once her renal function improves, the patient's diuretic regimen will be optimized. She is not a candidate for TIPS procedure, and the patient reports that she is listed for transplant at [place]. 5. Portal hypertension - The patient's blood pressure is low. She cannot tolerate beta blockers for portal hypertension. 6. Prevention of hepatic encephalopathy - The patient is currently on Lactulose. Thank you for involving me in the care of this patient. I should be happy to follow the patient along with you tomorrow morning. Plan of care was discussed with the Automobile Assembler, Dr. Pedraza as well.
[2020-11-16] MEDS: NICOTINE 21MG/24HR 1 EA TRANSDERMAL TD SCH (21:11)
[2020-11-16] MEDS: traZODone 50 MG TAB PO PRN ×2 (21:15→22:38)
[2020-11-17] VITALS (10 sets, daily range): BP systolic 80–102; BP diastolic 35–54
[2020-11-17] MEDS ORDERED: ONDANSETRON 4 MG ORAL DISINTEGRATING TAB PO PRN (01:00)
[2020-11-17] MEDS: metroNIDAZOLE (FLAGYL) 500MG TABLET PO SCH ×3 (05:50→22:51)
--- NOTE | 2020-11-17 08:12 | IPNPDOC ---
Date Seen The patient was seen on 11/17/20. Progress Note S: c/o weakness when walked to bathroom unable to use her arms b/c fatigue c/o nausea despite zofran unable to eat her eggs and almost threw up crying "am I dying?" no c/o sob, cp, pressure, dizziness, or lightheadedness no hematemesis, coffee ground emesis, brbpr , black stools. PHYSICAL EXAMINATION: VITAL SIGNS: SEE BELOW GENERAL APPEARANCE:crying slight jaundice HEENT: no jvd. Moist mm. No stridor. No carotid bruit CARDIOVASCULAR: s1s2 rrr ABDOMEN: obese less distended reducible umbilical hernia w erythema +bs tense no rebound or guarding. EXTREMITIES: 2+ pitting edema LABORATORY DATA: See below. IMAGING STUDIES: CHEST XRAY: INDICATION: sob COMPARISON: 04/05/2020 TECHNIQUE: Portable AP view of the chest FINDINGS: The mediastinum and cardiac silhouette are stable and within normal limits for portable technique. The lung larsen are clear without acute consolidation, effusion, or pneumothorax. Skeletal structures are intact. IMPRESSION: No acute cardiopulmonary process appreciated. <Electronically signed by Harshal Vaughn > 11/16/20 0742 MICROBIOLOGY: Please see below. ASSESSMENT: 60 y/o F w h/o ETOH liver cirrhosis, recurrent ascites, portal htn not a candidate for TIPS, on liver transplant list,quit EOTH >6months ago was sent by GIDr. Pedraza for admission due to decompensated liver disease with recurrent ascites. She c/o 20lb weight gain, increasing LE edema, fatigue, sob w exertion, and abd pain due to increasing abdominal distention. she denies cough fever chills hematemesis coffee ground emesis brbpr black tarry stools, and has a scheduled paracentesis tomorrow at 11am. In the ER, pt had a creatinine of 2, and hospitalist was asked to admit for ascites, acute kidney injury, hyponatremia from liver cirrhosis. no fever but admits to nausea. She denies confusion, headache, changes in vision despite hyponatremia. no NSAID use. Acute Decompensated liver cirrhosis with recurrent ascites -s/p paracentesis -nephrology consulted for fluid balance -hypotensive-s/p albumin transfusion, and midodrine Acute Kidney injury -nephrology consulted -hypotensive on midodrine Hyponatremia -no mental status changes ETOH Liver cirrhosis with portal hypertension -Quit alcohol 6 months ago -On liver transplant list -Project Planner, Dr. Pedraza consulted -On Xifaxan, lactulose, octreotide Hyperkalemia, resolved -Due to acute kidney injury Reducible non-incarcerated umbilical hernia -Outpatient surgical referral Chronic thrombocytopenia -No active signs of bleeding -Due to alcoholic liver cirrhosis chronic anemia -No signs of active GI bleed DVT prophylaxis. Compression stockings Diet renal diet Fluid restriction 1.5 L CODE STATUS full code VS, I&O, 24H, Fishbone Vital Signs/I&O Vital Signs Date Time Temp Pulse Resp B/P (MAP) Pulse Ox O2 Delivery O2 Flow Rate FiO2 11/17/20 06:05 80/50 (60) 11/17/20 06:00 98.0 70 18 100 Room Air I&O- Last 24 Hours up to 6 AM 11/17/20 06:00 Intake Total 1755.0 ml Output Total 900 ml Balance 855.0 ml Laboratory Data 24H LABS Laboratory Tests 2 11/16/20 15:32: Urine Color YELLOW, Urine Appearance CLEAR, Urine pH 6.0, Urine Specific [place] 1.013, Urine Protein NEGATIVE, Urine Glucose (Auto)(UA) NEGATIVE, Urine Ketones (Auto) NEGATIVE, Urine Blood NEGATIVE, Urine Nitrite NEGATIVE, Urine Bilirubin NEGATIVE, Urine Urobilinogen 0.2, Urine Leukocyte Esterase (Auto) NEGATIVE, Urine WBC (Auto) 1, Urine RBC (Auto) 0, Urine Hyaline Casts (Auto) 3, Urine Bacteria (Auto) NEGATIVE, Urine Squamous Epithelial Cells 1, Urine Mucus (Auto) SMALL, Urine Sperm (Auto) , Urine Random Creatinine 90.3, Urine Random Sodium < 10, Urine Random Potassium 13.8, Urine Random Chloride < 10 HANK FONTANA MD Nov 17, 2020 08:12
[2020-11-17] MEDS: LACTULOSE 20 GM/30 ML SYRUP UD PO SCH ×2 (08:22→22:52)
[2020-11-17] MEDS: MIDODRINE 5 MG TAB PO SCH ×3 (08:22→15:39)
[2020-11-17] MEDS: PANTOPRAZOLE 40MG TAB (PROTONIX) PO SCH (08:22)
[2020-11-17] MEDS: PROMETHAZINE INJ 25 MG/ML VIAL (J2550) IV SCH ×3 (08:32→23:19)
[2020-11-17 09:30] LABS: BASO % 0.5 % (0.0-1.0); EOS # 0.1 10^3/uL (0.0-0.5); EOS % 1.6 % (0.0-3.0); HEMATOCRIT 22.6 % (36.0-47.0); HEMOGLOBIN 7.9 g/dl (12.0-15.5); LYMPH # 0.7 10^3/uL (1.5-5.0); LYMPH % 14.7 % (24.0-44.0); MEAN CORPUSCULAR HEMOGLOBIN 31.1 pg (27.0-33.0); MONO # 0.7 10^3/uL (0.0-0.8); MONO % 16.6 % (0.0-5.0); NEUTROPHILS # 2.9 10^3/uL (1.5-8.5); NEUTROPHILS % 66.1 % (36.0-66.0); RED BLOOD COUNT 2.54 10^6/uL (4.00-5.40); WHITE BLOOD COUNT 4.4 10^3/uL (4.0-10.0)
[2020-11-17 09:55] LABS: PLATELET COUNT, AUTOMATED 86 10^3/uL (150-450)
[2020-11-17 10:15] LABS: ALBUMIN 3.3 GM/DL (3.2-5.2); BILIRUBIN,TOTAL 3.3 MG/DL (0.2-1.0); CALCIUM LEVEL 8.4 MG/DL (8.5-10.1); CREATININE FOR GFR 1.89 MG/DL (0.55-1.30); GLOMERULAR FILTRATION RATE 29.1 (>51); MAGNESIUM LEVEL 2.4 MG/DL (1.8-2.4); POTASSIUM SERUM 5.1 MEQ/L (3.5-5.1); TOTAL PROTEIN 5.2 GM/DL (6.4-8.2)
[2020-11-17] MEDS: CIPROFLOXACIN 500MG TABLET PO SCH (12:26)
[2020-11-17] MEDS: FOLIC ACID 1 MG TAB PO SCH (12:26)
[2020-11-17] MEDS: OCTREOTIDE ACETATE 1,200 MCG in NS 238.8 ML IV SCH (15:39)
[2020-11-17] MEDS ORDERED: GASTROGRAFIN SOLUTION 30ML (Q9963) As Ordered ONE (16:35)
[2020-11-17] MEDS: GASTROGRAFIN SOLUTION 30ML PO SCH ×2 (16:43→17:23)
--- NOTE | 2020-11-17 17:05 | CR.PDOC ---
General Date of Consultation: Nov 17, 2020 Referring Provider: HANK FONTANA MD Attending Physician: ZION LECHUGA MD Consultation Primary physician/ hospitalist: -Dr. Cadet/Dr. Duron Reason for consult: -Decompensated liver cirrhosis with NAS. HPI: 60-year-old female patient with alcoholic liver cirrhosis (CTP C, MELD-Na - 30, re-calculated with recent labs), quit alcohol in March 2020, refractory ascites requiring frequent therapeutic paracentesis, not a candidate for TIPSS due high MELD score, ( evaluated by IR in past), referred to liver transplant center (being evaluated for possible transplant), is noted to have worsening renal function and was admitted for the same. Patient is noted to have progressive deterioration of the renal function with hyponatremia and could not be treated with outpatient diuretic therapy. Patient reported tense ascites and umbilical hernia with skin abrasion on the umbilical hernia site. Patient also feeling dizzy was very weak. Patient underwent therapeutic paracentesis yesterday but the fluid was not sent for analysis. Today on examination patient complains of unable to tolerate oral diet with nausea and two episodes of vomiting when she tried to eat. She also reports abdominal pain- moderate, at the umbilical hernia site. Patient reports no bowel movements yesterday and today, even after taking lactulose. Patient rpeorts passing Patient denies any overt external bleeding and no black stools. Pertinent negative GI symptoms: Patient denies fever, sick contacts, recent travel, diarrhea, loss of appetite, early satiety or unintentional weight loss. No history of hematemesis, melena or hematochezia. Review of Systems: GI: as stated above CVS: No chest pain, No palpitations, No leg swelling. RS: No Shortness of breath, No Wheezing, no cough [employer]NAGER: generalized weakness with dizziness, No focal motor or sensory loss. Hematology: No bruising, No gum bleeding, Musculoskeletal: No joint pain, moves all axtremities. Skin: No rash : No hematuria, No burning sensation of the urine ENT: No ear discharge/ pain, No dysphagia. Eyes: No photophobia. Jaundice Home medications: reviewed. Antithrombotic agents: - none. Medical h/o: As above. Surgical h/o: None on abdomen. Social h/o: Alcohol: heavy use in past but completely quit in March 2021, smoking: Active smoker, IVDA/ drugs: Denies. . Family h/o of GI cancers - None Prior Endoscopies: No Prior EGD.. Prior GI evaluations: - Started following in [facility] GI clinic since her hospitalization in [facility] in March 2020. Exam: Vitals: reviewed General: Alert and oriented x 3, moderate distress from ascites and generalized weakness. HEENT: NO pallor, no icterus. Normal oropharynx, NO cervical lymph nodes. Chest: symmetric with bilateral clear air entry, CVS: S1, S2 heard, normal, no murmurs . Abdomen: moderately distended, ublical hernia soft, but not completely redugin, with wound scab, soft abdomen but noted aretha-umbilical crepitus, no palpable masses, slightly decreased bowel sounds. Rectal exam: Patient refused. Extremities: Mild pedal edema, pulses palpable. [employer] MANAGER: no focal motor or sensory deficits. Moves all extremities Skin: no rash. Labs: reviewed. Imaging: reviewed. Impression: - Decompensated liver cirrhosis ( CTp C, MELD -Na: 30), with refractory ascites and complicated by hepato-renal syndrome and hyponatremia. - Umbilical hernia with mild periumbilical crepitus -- needs further evaluation. - Worsening anemia from baseline without overt external bleeding -- DDx-- ruleout intra -abdominal bleeding vs dilutional ( from Albumin infusions). Unlikely Variceal bleeding as there is no overt external bleeding. Recommendations: - Patient educated about the test results, possible differential diagnoses and All questions answered. - Monitor hemoglobin and hematocript and transfuse if needed to keep hemoglobin around 7-8. - Follow renal recommendations for management of hepatorenal syndrome. - Conitnue with albumin 1g/kg/ Day in divided doses for total 2 days. - Consider oral free fluid restriction to 1- 1.5 liters per day for now and adjust based on the serum sodium levels. - Hold off on diuretics for now. Follow nephrology recommendations. - Patient will require ascitic fluid analysis ( the therapeutic paracentesis fluid was not sent for analysis, consider repeat with diagnostic analysis on thursday and also consider Ultrasound with doppler on thursday.). - In view of the abdominal wall crepitus, drop in hemoglobin, consider urgent CT abdomen with oral contrast for further evaluation. - Surgery evaluation. - If continued drop in hemoglobin levels, consider correcting coagulopathy. Due to decompensated liver cirrhosis and no overt external bleeding, less likely variceal bleeding and risk of EGD outweigh benefits at this time. Discussed with patient. - I called the liver transplant center where patient was evaluated ( [facility]) and updated the patient's change in status. Awaiting final recommendations from them. - Patient is educated on the plan of care and all questions answered. - Due to advanced liver cirrhosis and hepatorenal syndrome, patient has poor prognosis. Plan of care discussed with patient and primary team. Patient verbalized understanding and agreed with the plan. Vital Signs/I&O Vital Signs Date Time Temp Pulse Resp B/P (MAP) Pulse Ox O2 Delivery O2 Flow Rate FiO2 11/17/20 16:01 98.5 44 16 86/50 11/17/20 14:00 98 Room Air I&O- Last 24 Hours up to 6 AM 11/17/20 05:59 Intake Total 1755.0 ml Output Total 900 ml Balance 855.0 ml Laboratory Data Labs 24H Laboratory Tests 2 11/17/20 09:11: Immature Granulocyte % (Auto) 0.5, Neutrophils (%) (Auto) 66.1H, Lymphocytes (%) (Auto) 14.7L, Monocytes (%) (Auto) 16.6H, Eosinophils (%) (Auto) 1.6, Basophils (%) (Auto) 0.5, Neutrophils # (Auto) 2.9, Lymphocytes # (Auto) 0.7L, Monocytes # (Auto) 0.7, Eosinophils # (Auto) 0.1, Basophils # (Auto) 0.0, Nucleated Red Blood Cells % (auto) 0.0, Immature Platelet Fraction 1.5, Anion Gap 8, Glomerular Filtration Rate 29.1L, Calcium Level 8.4L, Magnesium Level 2.4, Total Bilirubin 3.3H, Aspartate Amino Transf (AST/SGOT) 35, Alanine Aminotransferase (ALT/SGPT) 22, Alkaline Phosphatase 94, Total Protein 5.2L, Albumin 3.3, Albumin/Globulin Ratio 1.7 11/17/20 13:35: Urine Random Creatinine 117.0 11/17/20 16:20: C-Reactive Protein, Quantitative 0.49H CBC/BMP Laboratory Tests 11/17/20 09:11 Allergies Coded Allergies: No Known Allergies (Unverified , 03/28/20) Home Medications Scheduled Ciprofloxacin HCl (Ciprofloxacin HCl) 500 Mg Tablet, 500 MG PO DAILY, (Reported) TAKES AFTER LUNCH Folic Acid (Folic Acid) 1 Mg Tablet, 1 MG PO DAILY, (Reported) TAKES AFTER LUNCH Gabapentin (Gabapentin) 300 Mg Capsule, 300 MG PO QAM, (Reported) Gabapentin (Gabapentin) 300 Mg Capsule, 600 MG PO QHS, (Reported) Lactulose (Lactulose) 10 Gm/15 Ml Solution, 15 ML PO BID, (Reported) Pantoprazole Sodium (Pantoprazole Sodium) 40 Mg Tablet.dr, 40 MG PO DAILY, (Reported) Spironolactone (Spironolactone) 50 Mg Tablet, 50 MG PO BID, (Reported) Scheduled PRN Trazodone HCl (Trazodone HCl) 50 Mg Tablet, 50 MG PO QHS PRN for INSOMNIA, (Reported) ZION LECHUGA MD Nov 17, 2020 17:05
[2020-11-17 19:17] LABS: CHLORIDE,RANDOM URINE < 10 MEQ/L; SODIUM,RANDOM URINE < 10 MEQ/L
--- NOTE | 2020-11-17 19:20 | REPVR ---
PROCEDURE INFORMATION: Exam: CT Abdomen And Pelvis Without Contrast Exam date and time: 11/17/2020 6:38 PM Age: 60 years old Clinical indication: Other: Hypotension R/O intraabdominal infection; Additional info: Hypotension R/O intraabdominal infection , umbilical hernia TECHNIQUE: Imaging protocol: Computed tomography of the abdomen and pelvis without contrast. Radiation optimization: All CT scans at this facility use at least one of these dose optimization techniques: automated exposure control; mA and/or kV adjustment per patient size (includes targeted exams where dose is matched to clinical indication); or iterative reconstruction. COMPARISON: [facility] US 11/16/2020 1:20 PM FINDINGS: Liver: Examination of the liver demonstrates a lobular surface contour, and enlargement of the left and caudate lobes, with overall reduction in hepatic volume findings consistent with end-stage cirrhosis. Gallbladder and bile ducts: There are gallstones present. No evidence of cholecystitis demonstrated. Pancreas: Normal. No ductal dilation. Spleen: There is mild splenomegaly with a maximum span of 13.5 centimeters. No focal abnormalities demonstrated. Adrenal glands: Normal. No mass. Kidneys and ureters: Normal. No hydronephrosis. Stomach and bowel: Multiple mildly dilated small bowel loops demonstrating thickening of the valvulae conniventes, findings suggesting bowel wall edema likely secondary to hypoproteinemia. Clinical correlation to exclude bowel obstruction suggested. There is increased feces throughout the colon consistent with constipation. Appendix: No evidence of appendicitis. Intraperitoneal space: There is a moderate amount of free intraperitoneal fluid present. Vasculature: The aortoiliac vessels demonstrate mild atherosclerotic calcification. Lymph nodes: Unremarkable. No enlarged lymph nodes. Urinary bladder: Unremarkable as visualized. Reproductive: Unremarkable as visualized. Bones/joints: Multiple age-indeterminate compression fractures from T10 and 11, and L1 through L5. [id number] central spinal stenosis L3-L4, severe central spinal stenosis L4-L5. Bulging annulus L5-S1 with bilateral facet joint arthropathy. Soft tissues: There is a moderate to large fluid-filled umbilical hernia. There is no evidence of incarceration. Other findings: Osteoporosis. IMPRESSION: 1. Examination of the liver demonstrates a lobular surface contour, and enlargement of the left and caudate lobes, with overall reduction in hepatic volume findings consistent with end-stage cirrhosis. 2. There is mild splenomegaly. No focal abnormalities demonstrated. 3. There are gallstones present. No evidence of cholecystitis demonstrated. 4. There is a moderate amount of free intraperitoneal fluid present. 5. Multiple mildly dilated small bowel loops demonstrating thickening of the valvulae conniventes, findings suggesting bowel wall edema likely secondary to hypoproteinemia. Clinical correlation to exclude bowel obstruction suggested. 6. There is increased feces throughout the colon consistent with constipation. Electronically signed by: Matthew Dover On 11/17/2020 19:20:49 PM
[2020-11-17 20:09] LABS: HEMATOCRIT 27.3 % (36.0-47.0); HEMOGLOBIN 9.6 g/dl (12.0-15.5)
[2020-11-17 20:26] LABS: CALCIUM LEVEL 8.1 MG/DL (8.5-10.1); CREATININE FOR GFR 2.01 MG/DL (0.55-1.30); GLOMERULAR FILTRATION RATE 27.1 (>51); MAGNESIUM LEVEL 2.6 MG/DL (1.8-2.4); POTASSIUM SERUM 5.7 MEQ/L (3.5-5.1)
[2020-11-17] MEDS ORDERED: HumuLIN R (REGULAR) INSULIN (NovoLIN R) **100U/ML** PER UNIT IV STA (20:26)
[2020-11-17] MEDS ORDERED: DEXTROSE 50% 50 ML SYRINGE IV STA (20:26)
[2020-11-17] MEDS ORDERED: SOD POLYSTYRENE SULFONATE SUSP 15 GM/60 ML UD PO ONE (20:30)
[2020-11-17] MEDS ORDERED: CALCIUM GLUCONATE 1,000 MG in D5W MINI-BAG PLUS 100 ML IV ONE (20:30)
[2020-11-17] MEDS: NICOTINE 21MG/24HR 1 EA TRANSDERMAL TD SCH (22:54)
[2020-11-17 23:42] LABS: CALCIUM LEVEL 8.3 MG/DL (8.5-10.1); CREATININE FOR GFR 1.98 MG/DL (0.55-1.30); GLOMERULAR FILTRATION RATE 27.6 (>51); POTASSIUM SERUM 5.3 MEQ/L (3.5-5.1)
[2020-11-18] VITALS (51 sets, daily range): BP systolic 80–141; BP diastolic 48–81
[2020-11-18 02:21] LABS: BASO % 0.6 % (0.0-1.0); EOS # 0.1 10^3/uL (0.0-0.5); EOS % 1.5 % (0.0-3.0); HEMATOCRIT 29.3 % (36.0-47.0); HEMOGLOBIN 10.3 g/dl (12.0-15.5); LYMPH # 0.5 10^3/uL (1.5-5.0); LYMPH % 11.1 % (24.0-44.0); MEAN CORPUSCULAR HEMOGLOBIN 31.2 pg (27.0-33.0); MEAN CORPUSCULAR HGB CONC 35.2 g/dl (32.0-36.5); MEAN CORPUSCULAR VOLUME 88.8 fl (80.0-96.0); MONO # 0.8 10^3/uL (0.0-0.8); MONO % 17.9 % (0.0-5.0); NEUTROPHILS # 3.2 10^3/uL (1.5-8.5); NEUTROPHILS % 68.3 % (36.0-66.0); WHITE BLOOD COUNT 4.7 10^3/uL (4.0-10.0)
[2020-11-18 02:25] LABS: PLATELET COUNT, AUTOMATED 83 10^3/uL (150-450)
[2020-11-18 02:50] LABS: ABG BASE EXCESS -7.2 (-2.0-2.0); ABG HCO3 16.8 MEQ/L (22.0-26.0); ABG O2 SATURATION 97.6 % (95.0-99.0); ABG PARTIAL PRESSURE CO2 29.1 mmHg (35.0-45.0); ABG PARTIAL PRESSURE O2 102.3 mmHg (75.0-100.0); ABG STANDARD HCO3 18.6 MEQ/L (22.0-26.0); ABG TOTAL CO2 17.7 MEQ/L (22.0-29.0); ABG pH (ARTERIAL) 7.379 UNITS (7.350-7.450)
[2020-11-18 02:57] LABS: ALBUMIN 3.6 GM/DL (3.2-5.2); BILIRUBIN,TOTAL 6.2 MG/DL (0.2-1.0); CALCIUM LEVEL 8.8 MG/DL (8.5-10.1); CREATININE FOR GFR 1.97 MG/DL (0.55-1.30); GLOMERULAR FILTRATION RATE 27.7 (>51); PHOSPHORUS LEVEL 3.8 MG/DL (2.5-4.9); POTASSIUM SERUM 4.8 MEQ/L (3.5-5.1); TOTAL PROTEIN 5.6 GM/DL (6.4-8.2)
[2020-11-18] MEDS: PROMETHAZINE INJ 25 MG/ML VIAL (J2550) IV SCH ×4 (03:00→21:24)
[2020-11-18] MEDS ORDERED: LACTULOSE 20 GM/30 ML SYRUP UD PO ONE ×2 (03:15→03:30)
--- NOTE | 2020-11-18 03:41 | IPNPDOC ---
Date Seen The patient was seen on 11/18/20. Progress Note Called overnight to evaluate patient with bradycardia and lightheadedness. Patient was evaluated at bedside and noted to have a HR of 30. She was complaining of lightheadedness at the time. BP was soft although not different from her average. The patients chart was reviewed. A BMP and Mg level were ordered. The patient was noted to have an elevated potassium of 5.7. EKG obtained did demonstrate a sinus bradycardia without pauses. Telemetry monitoring did note a junctional rhythm. Patient was therefore treated with calcium gluconate, IV insulin, dextrose, and Kayexalate. Repeat potassium was improved to 4.8 as was her HR. Additionally, the patient was noted to be slightly confused and tired appearing at times. An ammonia level was ordered which was 92. The patient was given lactulose at that time. OBJECTIVE PHYSICAL EXAMINATION: VITAL SIGNS: Please see below. GENERAL: Tired appearing. Arousable. Oriented although falling asleep and intermittently answering questions CARDIOVASCULAR: Normal S1, S2. Bradycardic. Regular rhythm RESPIRATORY: Clear bilaterally. Good respiratory effort. No wheezes, rhonchi, or rales ABDOMINAL: Soft. Nondistended. Nontender. Umbilical hernia noted EXTREMITIES: No edema. Full and equal pulses bilaterally NEUROLOGICAL: No focal neurological deficits although patient did appear tired and intermittently confused/zoned out LABORATORY DATA, IMAGING STUDIES, MICROBIOLOGY: Please see below. PROBLEMS: 1. Bradycardia -Possibly secondary to hyperkalemia although her potassium was not much significantly elevated compared to previous days. Junctional rhythm was noted on telemetry. EKG demonstrating sinus bradycardia without pauses. -She was given calcium gluconate, insulin, dextrose and Kayexalate. Potassium did come down and patients bradycardia did resolve. 2. Lethargy/confusion possibly 2/2 hepatic encephalopathy -Patient noted to be more lethargic and slightly confused. She was arousable and answered questions appropriately however would zone out frequently. Review of her chart noted that she only has had one bowel movement since admission. Ammonia level was obtained which was elevated at 92. Patient was given a dose of lactulose VS, I&O, 24H, Fishbone Vital Signs/I&O Vital Signs Date Time Temp Pulse Resp B/P (MAP) Pulse Ox O2 Delivery O2 Flow Rate FiO2 11/18/20 02:59 96.1 20 106/63 96 Room Air 2/7/21 00:00 75 I&O- Last 24 Hours up to 6 AM 11/18/20 06:00 Intake Total 1190.0 ml Output Total 650 ml Balance 540.0 ml Laboratory Data 24H LABS Laboratory Tests 2 11/17/20 09:11: Immature Granulocyte % (Auto) 0.5, Neutrophils (%) (Auto) 66.1H, Lymphocytes (%) (Auto) 14.7L, Monocytes (%) (Auto) 16.6H, Eosinophils (%) (Auto) 1.6, Basophils (%) (Auto) 0.5, Neutrophils # (Auto) 2.9, Lymphocytes # (Auto) 0.7L, Monocytes # (Auto) 0.7, Eosinophils # (Auto) 0.1, Basophils # (Auto) 0.0, Nucleated Red Blood Cells % (auto) 0.0, Immature Platelet Fraction 1.5, Anion Gap 8, Glomerular Filtration Rate 29.1L, Calcium Level 8.4L, Magnesium Level 2.4, Total Bilirubin 3.3H, Aspartate Amino Transf (AST/SGOT) 35, Alanine Aminotransferase (ALT/SGPT) 22, Alkaline Phosphatase 94, Total Protein 5.2L, Albumin 3.3, Albumin/Globulin Ratio 1.7 11/17/20 13:35: Urine Random Creatinine 117.0, Urine Random Sodium < 10, Urine Random Chloride < 10 11/17/20 16:20: Erythrocyte Sedimentation Rate 14, Lactic Acid Level 2.1*H, C-Reactive Protein, Quantitative 0.49H, Procalcitonin 0.14 11/17/20 19:46: Anion Gap 8, Glomerular Filtration Rate 27.1L, Calcium Level 8.1L, Magnesium Level 2.6H 11/17/20 20:47: Lactic Acid Followup at 4 Hours 1.8 11/17/20 23:06: Anion Gap 9, Glomerular Filtration Rate 27.6L, Calcium Level 8.3L 11/18/20 01:18: Bedside Glucose (Misc Panel) 74 11/18/20 02:10: Anion Gap 9, Glomerular Filtration Rate 27.7L, Calcium Level 8.8, Immature Granulocyte % (Auto) 0.6, Neutrophils (%) (Auto) 68.3H, Lymphocytes (%) (Auto) 11.1L, Monocytes (%) (Auto) 17.9H, Eosinophils (%) (Auto) 1.5, Basophils (%) (Auto) 0.6, Neutrophils # (Auto) 3.2, Lymphocytes # (Auto) 0.5L, Monocytes # (Auto) 0.8, Eosinophils # (Auto) 0.1, Basophils # (Auto) 0.0, Nucleated Red Blood Cells % (auto) 0.0, Phosphorus Level 3.8, Total Bilirubin 6.2#H, Aspartate Amino Transf (AST/SGOT) 37, Alanine Aminotransferase (ALT/SGPT) 24, Alkaline Phosphatase 102, Ammonia 92H, Lactate Dehydrogenase 163, Total Creatine Kinase 41, Total Protein 5.6L, Albumin 3.6, Albumin/Globulin Ratio 1.8, Triglycerides Level 75, Cholesterol Level 62 11/18/20 02:34: Blood Gas Bicarbonate Standard 18.6L, Arterial Blood pH 7.379, Arterial Blood Partial Pressure CO2 29.1L, Arterial Blood Partial Pressure O2 102.3H, Arterial Blood Total CO2 17.7L, Arterial Blood HCO3 16.8L, Arterial Blood Base Excess - 7.2L, Arterial Blood Oxygen Saturation 97.6 CBC/BMP Laboratory Tests 11/17/20 09:11 11/17/20 19:46 11/17/20 23:06 11/18/20 02:10 LANEY TOURE DO Nov 18, 2020 03:41
[2020-11-18] MEDS: metroNIDAZOLE (FLAGYL) 500MG TABLET PO SCH ×3 (05:22→22:39)
[2020-11-18 06:05] LABS: BASO % 0.7 % (0.0-1.0); EOS % 0.2 % (0.0-3.0); HEMOGLOBIN 10.8 g/dl (12.0-15.5); LYMPH # 0.3 10^3/uL (1.5-5.0); LYMPH % 6.1 % (24.0-44.0); MEAN CORPUSCULAR HGB CONC 34.8 g/dl (32.0-36.5); MEAN CORPUSCULAR VOLUME 89.1 fl (80.0-96.0); MONO # 0.7 10^3/uL (0.0-0.8); MONO % 14.3 % (0.0-5.0); NEUTROPHILS # 3.6 10^3/uL (1.5-8.5); RED BLOOD COUNT 3.48 10^6/uL (4.00-5.40); WHITE BLOOD COUNT 4.6 10^3/uL (4.0-10.0)
[2020-11-18 06:08] LABS: PLATELET COUNT, AUTOMATED 80 10^3/uL (150-450)
[2020-11-18 06:14] LABS: BILIRUBIN,TOTAL 6.5 MG/DL (0.2-1.0); CREATININE FOR GFR 2.02 MG/DL (0.55-1.30); GLOMERULAR FILTRATION RATE 26.9 (>51); MAGNESIUM LEVEL 2.6 MG/DL (1.8-2.4); POTASSIUM SERUM 5.4 MEQ/L (3.5-5.1); TOTAL PROTEIN 6.1 GM/DL (6.4-8.2)
[2020-11-18] MEDS: LACTULOSE 20 GM/30 ML SYRUP UD PO SCH ×2 (09:00→21:24)
[2020-11-18] MEDS: PANTOPRAZOLE 40MG TAB (PROTONIX) PO SCH (09:00)
[2020-11-18] MEDS ORDERED: NOREPINEPHRINE BITARTRATE 8 MG in D5W 492 ML IV SCH ×2 (09:30→10:00)
--- NOTE | 2020-11-18 10:37 | IPNPDOC ---
Date Seen The patient was seen on 11/18/20. Progress Note S: oliguric, transferred to icu for levophed iv gtt and lasix diuresis per nephrology recommendations. no c/o sob, increasing abd distention, or le edema. no fever, chills, cough, n/v. +abd discomfort and reducible umbilical hernia. CT abd: no acute intraabd pathology. chronic cirrhosis, ascites, constipation.c/o weakness w/o lightheadedness or dizziness. PHYSICAL EXAMINATION: VITAL SIGNS: SEE BELOW GENERAL APPEARANCE:jaundice aaox 3 no respiratory distress HEENT:icteric no jvd. dry mm. No stridor. No carotid bruit CARDIOVASCULAR: s1s2 rrr ABDOMEN: obese less distended reducible umbilical hernia w erythema +bs tense no rebound or guarding. EXTREMITIES: 2+ pitting edema LABORATORY DATA: See below. IMAGING STUDIES: CHEST XRAY: INDICATION: sob COMPARISON: 04/05/2020 TECHNIQUE: Portable AP view of the chest FINDINGS: The mediastinum and cardiac silhouette are stable and within normal limits for portable technique. The lung larsen are clear without acute consolidation, effusion, or pneumothorax. Skeletal structures are intact. IMPRESSION: No acute cardiopulmonary process appreciated. <Electronically signed by Harshal Vaughn > 11/16/20 0742 MICROBIOLOGY: Please see below. ASSESSMENT: 60 y/o F w h/o ETOH liver cirrhosis, recurrent ascites, portal htn not a candidate for TIPS, on liver transplant list,quit EOTH >6months ago was sent by Dr. Keila FLEMING for admission due to decompensated liver disease with recurrent ascites. She c/o 20lb weight gain, increasing LE edema, fatigue, sob w exertion, and abd pain due to increasing abdominal distention. she denies cough fever chills hematemesis coffee ground emesis brbpr black tarry stools, and has a scheduled paracentesis tomorrow at 11am. In the ER, pt had a creatinine of 2, and hospitalist was asked to admit for ascites, acute kidney injury, hyponatremia from liver cirrhosis. no fever but admits to nausea. She denies confusion, headache, changes in vision despite hyponatremia. no NSAID use. Acute Decompensated liver cirrhosis with recurrent ascites -s/p paracentesis -nephrology consulted for fluid balance -hypotensive-s/p albumin transfusion, and s/p midodrine -oliguric and requires increased renal perfusion for better diuresis -transferred to icu for iv levophed gtt, continuous albumin 25% transfusion, and lasix managed by nephrology. -goal mean arterial pressure for diuresis to be 10 higher than baseline. midodrine discontinued -on octreotide, lactulose, lasix managed by nephrology, abx,ppi -GI recommended transfer to [facility] liver transplant [place], awaiting bed availability. -surgical consult for triple lumen catheter line placement for vasopressor therapy. Dr. Hernandez aware. Hepatorenal syndrome -due to decompensated renal failure -nephrology consulted -hypotensive on midodrine Hyponatremia -no mental status changes -due to decompensated liver cirrhosis -fluid and electrolyte management by nephrology ETOH Liver cirrhosis with portal hypertension -Quit alcohol 6 months ago -On liver transplant list -[employer] [employer] [facility], Dr. Pedraza consulted -On Xifaxan, lactulose, octreotide Hyperkalemia, resolved -Due to acute kidney injury Reducible non-incarcerated umbilical hernia -Outpatient surgical referral Chronic thrombocytopenia -No active signs of bleeding -Due to alcoholic liver cirrhosis chronic anemia -No signs of active GI bleed -s/p 1 urbc transfusion DVT prophylaxis. Compression stockings Diet renal diet Fluid restriction 1.5 L CODE STATUS full code prognosis: guarded disposition: awaiting transfer to [facility] [place]. [facility] Vital Signs Date Time Temp Pulse Resp B/P (MAP) Pulse Ox O2 Delivery O2 Flow Rate FiO2 11/18/20 08:12 98.2 63 18 93/54 (67) 100 Room Air I&O- Last 24 Hours up to 6 AM 11/18/20 06:00 Intake Total 1540.0 ml Output Total 650 ml Balance 890.0 ml Laboratory Data 24H LABS Laboratory Tests 2 11/17/20 13:35: Urine Random Creatinine 117.0, Urine Random Sodium < 10, Urine Random Chloride < 10 11/17/20 16:20: Erythrocyte Sedimentation Rate 14, Lactic Acid Level 2.1*H, C-Reactive Protein, Quantitative 0.49H, Procalcitonin 0.14 11/17/20 19:46: Anion Gap 8, Glomerular Filtration Rate 27.1L, Calcium Level 8.1L, Magnesium Level 2.6H 11/17/20 20:47: Lactic Acid Followup at 4 Hours 1.8 11/17/20 23:06: Anion Gap 9, Glomerular Filtration Rate 27.6L, Calcium Level 8.3L 11/18/20 01:18: Bedside Glucose (Misc Panel) 74 11/18/20 02:10: Anion Gap 9, Glomerular Filtration Rate 27.7L, Calcium Level 8.8, Immature Granulocyte % (Auto) 0.6, Neutrophils (%) (Auto) 68.3H, Lymphocytes (%) (Auto) 11.1L, Monocytes (%) (Auto) 17.9H, Eosinophils (%) (Auto) 1.5, Basophils (%) (Auto) 0.6, Neutrophils # (Auto) 3.2, Lymphocytes # (Auto) 0.5L, Monocytes # (Auto) 0.8, Eosinophils # (Auto) 0.1, Basophils # (Auto) 0.0, Nucleated Red Blood Cells % (auto) 0.0, Phosphorus Level 3.8, Total Bilirubin 6.2#H, Aspartate Amino Transf (AST/SGOT) 37, Alanine Aminotransferase (ALT/SGPT) 24, Alkaline Phosphatase 102, Ammonia 92H, Lactate Dehydrogenase 163, Total Creatine Kinase 41, Total Protein 5.6L, Albumin 3.6, Albumin/Globulin Ratio 1.8, Triglycerides Level 75, Cholesterol Level 62 11/18/20 02:34: Blood Gas Bicarbonate Standard 18.6L, Arterial Blood pH 7.379, Arterial Blood Partial Pressure CO2 29.1L, Arterial Blood Partial Pressure O2 102.3H, Arterial Blood Total CO2 17.7L, Arterial Blood HCO3 16.8L, Arterial Blood Base Excess - 7.2L, Arterial Blood Oxygen Saturation 97.6 11/18/20 05:21: Immature Granulocyte % (Auto) 0.7, Neutrophils (%) (Auto) 78.0H, Lymphocytes (%) (Auto) 6.1L, Monocytes (%) (Auto) 14.3H, Eosinophils (%) (Auto) 0.2, Basophils (%) (Auto) 0.7, Neutrophils # (Auto) 3.6, Lymphocytes # (Auto) 0.3L, Monocytes # (Auto) 0.7, Eosinophils # (Auto) 0.0, Basophils # (Auto) 0.0, Nucleated Red Blood Cells % (auto) 0.0, Anion Gap 9, Glomerular Filtration Rate 26.9L, Calcium Level 9.0, Magnesium Level 2.6H, Total Bilirubin 6.5H, Aspartate Amino Transf (AST/SGOT) 37, Alanine Aminotransferase (ALT/SGPT) 25, Alkaline Phosphatase 104, Total Protein 6.1L, Albumin 4.0, Albumin/Globulin Ratio 1.9 CBC/BMP Laboratory Tests 11/17/20 19:46 11/17/20 23:06 11/18/20 02:10 11/18/20 05:21 11/18/20 07:28 HANK FONTANA MD Nov 18, 2020 10:37
--- NOTE | 2020-11-18 11:43 | RO ---
OPERATIVE NOTE DATE OF OPERATION: 11/18/2020 PREOPERATIVE DIAGNOSIS: Hypotension. POSTOPERATIVE DIAGNOSIS: Hypotension. PROCEDURE: Right IJ central lumen catheter. SURGEON: James Hernandez DO STEAM SHOVEL RUNNER: ANESTHESIA: 3 mL 1% Lidocaine local. COMPLICATIONS: None. INDICATIONS FOR PROCEDURE: The patient is a 60-year-old female currently with liver failure, hepatorenal syndrome, fluid overload, being treated in the ICU with diuresis and possible hypotension. I was asked to place a central line for access. Risks and benefits of the procedure not limited to but including bleeding, infection, damage to surrounding structures, need for further surgery and pneumothorax were discussed in detail with the patient, informed consent was obtained and procedure was planned. DESCRIPTION OF PROCEDURE: The patient is in the ICU; at the bedside right neck was sterilely prepped and draped with Chlorhexidine. Time out was done with the nursing staff in the room to confirm proper patient, proper procedure. Following that an ultrasound was used to evaluate the right neck. Internal jugular vein was easily identified, was very large in diameter. The local was injected into the skin overlying the vessel followed by cannulation with needle. Once the needle was in place and dark red non-pulsatile blood was identified the guidewire was passed through the needle into the vessel. Needle was then removed. 11-blade scalpel was used to make a small skin incision at the base of the guidewire. The dilator was then passed over top of the wire into the vessel with minimal resistance. Dilator was then removed and central line was passed over top of the guidewire into the vessel and the guidewire was removed. Catheter was flushed all three ports and catheter was sutured in place with silk suture. Postprocedure x-ray was completed confirming proper placement and no signs of any obvious pneumothorax on the portable machine. Final x-ray results from radiologist are pending. Catheter is in place, ready to be used at this point. The patient tolerated the procedure well. Sterile dressing was applied.
--- NOTE | 2020-11-18 11:44 | REP ---
INDICATION: line placement. COMPARISON: 11/16/2020. TECHNIQUE: SINGLE PORTABLE AP VIEW OF THE CHEST WAS PERFORMED. FINDINGS: THERE IS NO ACUTE INFILTRATE OR PULMONARY EDEMA. LUNGS ARE CLEAR. HEART IS NOT SIGNIFICANTLY ENLARGED. MEDIASTINAL SILHOUETTE IS UNREMARKABLE. THE VISUALIZED OSSEOUS STRUCTURES ARE INTACT.There is a right central venous catheter. The tip is in the right atrium. There is no pneumothorax. IMPRESSION: NO ACUTE PULMONARY DISEASE.Right central venous catheter with tip in right atrium. No pneumothorax. <Electronically signed by James Conn > 11/18/20 [id number]
--- NOTE | 2020-11-18 11:47 | ECGEPIP ---
[facility] Test Date: 2020-11-17 Pat Name: SANA LE Department: Room: [place] [address] Gender: Female Electoral Officer: KULWINDER : 1960 Requested By: LANEY TOURE Order Number: [id number] Reading MD: Aristeo Oakley Measurements Intervals Drummond Rate: 38 P: NH: 0 QRS: 9 QRSD: 100 T: 45 QT: 547 QTc: 437 Interpretive Statements Marked sinus bradycardia/sinus arrhythmia Low limb voltages with QS pattern in V1 and V2; body habitus versus pulmonary d disease. Could not rule out prior septal infarction. Slower rate but otherwise not significant a change from 11/14/20 Electronically Signed on 11-18-2020 11:47:27 EST by Aristeo Oakley
[2020-11-18] MEDS: FOLIC ACID 1 MG TAB PO SCH (13:22)
[2020-11-18] MEDS: CIPROFLOXACIN 500MG TABLET PO SCH (13:23)
[2020-11-18] MEDS: NOREPINEPHRINE BITARTRATE 16 MG in D5W 484 ML IV SCH (15:25)
[2020-11-18 18:49] LABS: CHLORIDE,RANDOM URINE < 10 MEQ/L; SODIUM,RANDOM URINE < 10 MEQ/L
[2020-11-18 19:08] LABS: ALBUMIN 4.5 GM/DL (3.2-5.2); CALCIUM LEVEL 9.1 MG/DL (8.5-10.1); CREATININE FOR GFR 2.01 MG/DL (0.55-1.30); GLOMERULAR FILTRATION RATE 27.1 (>51); PHOSPHORUS LEVEL 3.3 MG/DL (2.5-4.9); POTASSIUM SERUM 4.5 MEQ/L (3.5-5.1)
[2020-11-18] MEDS: VITAMIN B COMPLEX/VIT C CAP PO SCH (21:25)
[2020-11-18] MEDS: VITAMIN E 400 INTERNATIONAL UNITS CAP PO SCH (21:25)
[2020-11-18] MEDS: NICOTINE 21MG/24HR 1 EA TRANSDERMAL TD SCH (21:31)
[2020-11-18] MEDS: ALPRAZolam 0.5 MG TAB PO PRN (23:24)
[2020-11-19] VITALS (87 sets, daily range): BP systolic 90–146; BP diastolic 52–84
[2020-11-19] MEDS: PROMETHAZINE INJ 25 MG/ML VIAL (J2550) IV SCH ×2 (03:44→08:23)
[2020-11-19 05:05] LABS: CREATININE,RANDOM URINE 79.6 MG/DL
[2020-11-19] MEDS: metroNIDAZOLE (FLAGYL) 500MG TABLET PO SCH ×3 (06:04→21:11)
[2020-11-19 06:19] LABS: BASO % 0.5 % (0.0-1.0); EOS % 0.9 % (0.0-3.0); HEMATOCRIT 27.5 % (36.0-47.0); HEMOGLOBIN 9.7 g/dl (12.0-15.5); LYMPH # 0.7 10^3/uL (1.5-5.0); LYMPH % 16.4 % (24.0-44.0); MEAN CORPUSCULAR HEMOGLOBIN 31.2 pg (27.0-33.0); MEAN CORPUSCULAR HGB CONC 35.3 g/dl (32.0-36.5); MEAN CORPUSCULAR VOLUME 88.4 fl (80.0-96.0); MONO # 0.7 10^3/uL (0.0-0.8); MONO % 16.7 % (0.0-5.0); NEUTROPHILS # 2.9 10^3/uL (1.5-8.5); RED BLOOD COUNT 3.11 10^6/uL (4.00-5.40); WHITE BLOOD COUNT 4.4 10^3/uL (4.0-10.0)
[2020-11-19 06:28] LABS: PLATELET COUNT, AUTOMATED 63 10^3/uL (150-450)
[2020-11-19 06:46] LABS: ALBUMIN 4.6 GM/DL (3.2-5.2); BILIRUBIN,TOTAL 5.7 MG/DL (0.2-1.0); CALCIUM LEVEL 8.9 MG/DL (8.5-10.1); CREATININE FOR GFR 1.82 MG/DL (0.55-1.30); GLOMERULAR FILTRATION RATE 30.4 (>51); MAGNESIUM LEVEL 2.3 MG/DL (1.8-2.4); POTASSIUM SERUM 4.2 MEQ/L (3.5-5.1); TOTAL PROTEIN 6.3 GM/DL (6.4-8.2)
--- NOTE | 2020-11-19 07:39 | IPN ---
PROGRESS NOTE DATE: 11/18/2020 SUBJECTIVE: The patient was seen and examined at the bedside today morning in the Medical Unit. The patient is slightly more obtunded today as compared with yesterday. There is no improvement in the renal function. Creatinine is actually worse today as compared with yesterday. Her urine output was 650 ml yesterday, 400 ml so far today since overnight. The patient's renal function is not improving. Her creatinine is still staying at 2. She had to be transferred to the ICU and she got a line placed by the Surgical Service and she was started on a Levophed infusion. OBJECTIVE: VITAL SIGNS: When I saw her in the morning, her temperature was 98.9 degrees Fahrenheit, blood pressure 101/63, pulse is 69, respiratory rate of 18, saturating 100% on room air. INTAKE AND OUTPUT: Urine output recorded as 650 ml yesterday and 400 ml by the time I saw her. PHYSICAL EXAMINATION: GENERAL: The patient is awake, alert and oriented x2, laying in bed. She looks more lethargic today as compared with yesterday. HEAD AND NECK: Pupils are equally, round and reactive to light. She has scleral icterus. Mucous membranes are moist. NECK: Supple. There is no JVD. CARDIOVASCULAR: S1 and S2, regular rate. EXTREMITIES: No edema of the bilateral lower extremities. RESPIRATORY: Chest is clear to auscultation bilaterally, bilateral equal air entry. No rales or rhonchi. ABDOMEN: Soft and distended with ascites. She has an umbilical hernia. The liver is palpable. GENITOURINARY: The bladder is not palpable. MUSCULOSKELETAL: No clubbing or cyanosis. Pulses are 2+. CUSTOMER ACCOUNT MANAGER: The patient has mild asterixis, otherwise she follows commands and moves extremities. LABORATORY DATA: CBC showed a WBC of 4.6, hemoglobin 10.8, platelets are 80,000. Urine random creatinine is 117, sodium is less than 10, chloride is less than 10. BMP done today morning showed a sodium of 132, potassium of 5.4, chloride 102, bicarbonate 21, BUN 49 and creatinine is 2. Calcium is 9. Magnesium is 2.6. Total bilateral is 6.5. AST 37, ALT 25, alkaline phosphatase is 104. Albumin is 4. IMAGING: A chest x-ray was done today which showed no acute pulmonary disease. Right sided central line in place. CURRENT INPATIENT MEDICATION: The patient's medications were all reviewed by myself. She was started on a Levophed infusion with an aim to increase the mean arterial pressure above 75. Sandostatin drip has been stopped. She continues to be on IV albumin. Midodrine has been stopped. She has no other significant change in the medications today as compared with yesterday. ASSESSMENT AND PLAN: 1. Acute renal failure. Patient has non-oliguric renal failure and looking at the urine electrolytes with clinical evaluation with no evidence of active infection going on, the patient is in hepatorenal syndrome. She has failed out of ICU treatment with albumin, Midodrine and Octreotide. Patient has been transferred to the ICU, a central line has been placed. She has been started on a Levophed infusion with a goal to increase mean arterial pressure more than 10. Hopefully, that could help increase the perfusion of the kidneys and improve urine output. 2. Hyperkalemia. Patient was given a dose of Kayexalate. Potassium level should improve with improvement of the urine output. No need of Kayexalate at this time. 3. Hyponatremia. It is secondary to decompensated liver cirrhosis. Continue Albumin at this time. Sodium level is stable and improving. 4. Decompensated liver cirrhosis with a history of alcohol abuse. Patient has been referred to [facility]. I called the [facility] in [place] and informed them the patient has been transferred to the ICU now requiring Levophed infusion. They are ready to accept the patient, however there are no beds available and as soon as there is a bed available the patient will be transferred to [place] and as reported by Transplant Center, the patient has been referred for transplant evaluation, she is not active on the list for transplant. 5. Disposition: The patient is in hepatorenal syndrome. She has decompensated liver cirrhosis with recurrent ascites resistant to diuretics. She is currently not listed for transplant. I would not offer hemodialysis to this patient. I would try to manage her with medications only, hemodialysis would not improve the overall prognosis and mortality in this patient.
[2020-11-19] MEDS: PANTOPRAZOLE 40MG TAB (PROTONIX) PO SCH (08:23)
[2020-11-19] MEDS: LACTULOSE 20 GM/30 ML SYRUP UD PO SCH ×2 (08:23→20:34)
--- NOTE | 2020-11-19 09:38 | IPNPDOC ---
Date Seen The patient was seen on 11/19/20. Progress Note S: pt had 1.1 liters urine output on levophed iv gtt. she c/o generalized weakness and malaise. no sob, chest pain. c/o chronic abdominal discomfort denies brbpr, melena, black stools, hematemesis. still awaiting bed from [facility] PHYSICAL EXAMINATION: VITAL SIGNS: SEE BELOW GENERAL APPEARANCE:jaundice aaox 3 speaks in full sentences no respiratory distress HEENT:icteric no jvd. dry mm. No stridor. No carotid bruit CARDIOVASCULAR: s1s2 rrr LUNGS: diminished no rales ABDOMEN: obese less distended reducible umbilical hernia w erythema +bs tense no rebound or guarding. EXTREMITIES: 2+ pitting edema LABORATORY DATA: See below. IMAGING STUDIES: CHEST XRAY: INDICATION: sob COMPARISON: 04/05/2020 TECHNIQUE: Portable AP view of the chest FINDINGS: The mediastinum and cardiac silhouette are stable and within normal limits for portable technique. The lung larsen are clear without acute consolidation, effusion, or pneumothorax. Skeletal structures are intact. IMPRESSION: No acute cardiopulmonary process appreciated. <Electronically signed by Harshal Vaughn > 11/16/20 0742 MICROBIOLOGY: Please see below. ASSESSMENT: 60 y/o F w h/o ETOH liver cirrhosis, recurrent ascites, portal htn not a candidate for TIPS, on liver transplant list,quit EOTH >6months ago was sent by GIDr. Pedraza for admission due to decompensated liver disease with recurrent ascites. She c/o 20lb weight gain, increasing LE edema, fatigue, sob w exertion, and abd pain due to increasing abdominal distention. she denies cough fever chills hematemesis coffee ground emesis brbpr black tarry stools, and has a scheduled paracentesis tomorrow at 11am. In the ER, pt had a creatinine of 2, and hospitalist was asked to admit for ascites, acute kidney injury, hyponatremia from liver cirrhosis. no fever but admits to nausea. She denies confusion, headache, changes in vision despite hyponatremia. no NSAID use. Acute Decompensated liver cirrhosis with recurrent ascites -s/p paracentesis -nephrology consulted for fluid balance and recommended levophed iv gtt for better renal perfusion and urine output -hypotensive-s/p albumin transfusion, and s/p midodrine -transferred to icu for iv levophed gtt, continuous albumin 25% transfusion, managed by nephrology. -goal mean arterial pressure for diuresis to be 10 higher than baseline. midodrine discontinued -on octreotide, lactulose, lasix managed by nephrology, abx,ppi -GI recommended transfer to [facility] liver transplant center, awaiting bed availability. -surgical consult for triple lumen catheter line placement for vasopressor therapy. Dr. Hernandez aware. Hepatorenal syndrome -due to decompensated renal failure -nephrology consulted -hypotensive on midodrine -started on iv lasix gtt 11/18/20 by nephrology -s/p triple lumen catheter right IJ by Dr. Hernandez 11/18/20 for vasopressor Hyponatremia -no mental status changes -due to decompensated liver cirrhosis -fluid and electrolyte management by nephrology ETOH Liver cirrhosis with portal hypertension -Quit alcohol 6 months ago -On liver transplant list -[employer], Dr. Pedraza consulted -On Xifaxan, lactulose, octreotide Hyperkalemia, resolved -Due to acute kidney injury Reducible non-incarcerated umbilical hernia -Outpatient surgical referral Chronic thrombocytopenia -No active signs of bleeding -Due to alcoholic liver cirrhosis chronic anemia -No signs of active GI bleed -s/p 1 urbc transfusion -awaiting hemoccult stool DVT prophylaxis. Compression stockings Diet renal diet Fluid restriction 1.5 L CODE STATUS full code prognosis: guarded disposition: awaiting transfer to [facility] liver transplant center. VS, I&O, 24H, Fishbone Vital Signs/I&O Vital Signs Date Time Temp Pulse Resp B/P (MAP) Pulse Ox O2 Delivery O2 Flow Rate FiO2 11/19/20 08:52 97.9 88 22 104/64 99 Room Air I&O- Last 24 Hours up to 6 AM 11/19/20 06:00 Intake Total 1870.0 ml Output Total 1410 ml Balance 460.0 ml Laboratory Data 24H LABS Laboratory Tests 2 11/18/20 18:10: Urine Random Creatinine 90.0, Urine Random Sodium < 10, Urine Random Chloride < 10 11/18/20 18:26: Anion Gap 9, Glomerular Filtration Rate 27.1L, Calcium Level 9.1, Phosphorus Level 3.3, Albumin 4.5 11/19/20 04:17: Urine Random Creatinine 79.6, Urine Random Sodium 16, Urine Random Chloride 14 11/19/20 05:57: Anion Gap 8, Glomerular Filtration Rate 30.4L, Calcium Level 8.9, Albumin 4.6, Immature Granulocyte % (Auto) 0.5, Neutrophils (%) (Auto) 65.0, Lymphocytes (%) (Auto) 16.4L, Monocytes (%) (Auto) 16.7H, Eosinophils (%) (Auto) 0.9, Basophils (%) (Auto) 0.5, Neutrophils # (Auto) 2.9, Lymphocytes # (Auto) 0.7L, Monocytes # (Auto) 0.7, Eosinophils # (Auto) 0.0, Basophils # (Auto) 0.0, Nucleated Red Blood Cells % (auto) 0.0, Immature Platelet Fraction 1.0, Magnesium Level 2.3, Total Bilirubin 5.7H, Aspartate Amino Transf (AST/SGOT) 33, Alanine Aminotransferase (ALT/SGPT) 20, Alkaline Phosphatase 81, Total Protein 6.3L, Albumin/Globulin Ratio 2.7H CBC/BMP Laboratory Tests 11/18/20 18:26 11/19/20 05:57 HANK FONTANA MD Nov 19, 2020 09:38
[2020-11-19 10:34] LABS: INR 2.6; PROTHROMBIN TIME 28.4 SECONDS (12.5-14.3)
[2020-11-19 10:35] LABS: PARTIAL THROMBOPLASTIN TIME 51.9 SECONDS (24.2-38.5)
[2020-11-19] MEDS ORDERED: rOPINIRole 0.25 MG TAB(REQUIP) PO ONE (11:00)
[2020-11-19] MEDS: CIPROFLOXACIN 500MG TABLET PO SCH (11:18)
[2020-11-19] MEDS: FOLIC ACID 1 MG TAB PO SCH (11:18)
[2020-11-19] MEDS: NOREPINEPHRINE BITARTRATE 16 MG in D5W 484 ML IV SCH (14:07)
[2020-11-19] MEDS ORDERED: NICO21PAT TD (15:24)
[2020-11-19] MEDS ORDERED: MIDO10TA PO (15:25)
[2020-11-19] MEDS ORDERED: diphenhydrAMINE 50MG CAP PO PRN (18:30)
[2020-11-19] MEDS: VITAMIN B COMPLEX/VIT C CAP PO SCH (20:34)
[2020-11-19] MEDS: NICOTINE 21MG/24HR 1 EA TRANSDERMAL TD SCH (20:35)
[2020-11-19] MEDS: VITAMIN E 400 INTERNATIONAL UNITS CAP PO SCH (20:35)
[2020-11-20] VITALS (60 sets, daily range): BP systolic 88–130; BP diastolic 53–79
[2020-11-20 04:53] LABS: BASO # 0.1 10^3/uL (0.0-0.2); BASO % 0.7 % (0.0-1.0); EOS # 0.1 10^3/uL (0.0-0.5); EOS % 1.1 % (0.0-3.0); HEMATOCRIT 28.4 % (36.0-47.0); HEMOGLOBIN 9.8 g/dl (12.0-15.5); LYMPH # 1.1 10^3/uL (1.5-5.0); MEAN CORPUSCULAR HEMOGLOBIN 30.7 pg (27.0-33.0); MEAN CORPUSCULAR HGB CONC 34.5 g/dl (32.0-36.5); MONO # 1.3 10^3/uL (0.0-0.8); MONO % 17.4 % (0.0-5.0); NEUTROPHILS # 4.9 10^3/uL (1.5-8.5); NEUTROPHILS % 65.5 % (36.0-66.0); PLATELET COUNT, AUTOMATED 67 10^3/uL (150-450); RED BLOOD COUNT 3.19 10^6/uL (4.00-5.40); WHITE BLOOD COUNT 7.4 10^3/uL (4.0-10.0)
[2020-11-20 05:04] LABS: INR 2.46; PARTIAL THROMBOPLASTIN TIME 48.7 SECONDS (24.2-38.5); PROTHROMBIN TIME 27.2 SECONDS (12.5-14.3)
[2020-11-20 05:15] LABS: CALCIUM LEVEL 8.5 MG/DL (8.5-10.1); CREATININE FOR GFR 1.54 MG/DL (0.55-1.30); GLOMERULAR FILTRATION RATE 36.8 (>51); POTASSIUM SERUM 4.2 MEQ/L (3.5-5.1)
[2020-11-20 05:16] LABS: BILIRUBIN,TOTAL 4.1 MG/DL (0.2-1.0); MAGNESIUM LEVEL 2.2 MG/DL (1.8-2.4); TOTAL PROTEIN 5.9 GM/DL (6.4-8.2)
[2020-11-20] MEDS: metroNIDAZOLE (FLAGYL) 500MG TABLET PO SCH ×2 (06:32→13:58)
[2020-11-20] MEDS: LACTULOSE 20 GM/30 ML SYRUP UD PO SCH ×2 (08:18→20:08)
[2020-11-20] MEDS: PANTOPRAZOLE 40MG TAB (PROTONIX) PO SCH (08:18)
[2020-11-20] MEDS: MEGESTROL 400MG 10ML SUSP ORAL SYRINGE *DRAW UP EXACT DOSE PO SCH (08:18)
--- NOTE | 2020-11-20 08:46 | IPN ---
PROGRESS NOTE DATE: 11/19/2020 SUBJECTIVE: Jyotsna is seen and examined this morning at the bedside in the Intensive Care Unit. Her urine output has improved since Levophed pressure support was started and laboratory studies show improvement in GFR as well. The nursing staff reports that the patient has been very drowsy and falling asleep in the middle of a sentence although she continues to be oriented x3 and I found a similar state when the patient was examined by myself. PHYSICAL EXAMINATION: VITAL SIGNS: Temperature 98.9, pulse 73, respiratory rate 19, blood pressure 114/69, saturating 100% on room air. INTAKE AND OUTPUT: Intake yesterday was 1860. Urine output yesterday was 1 liter. Weight on the bed scale today was not recorded. GENERAL APPEARANCE: Patient is seen lying in bed in the Intensive Care Unit. She is frankly drowsy but when I prompt her with questioning and with tactile stimulus she answers questions appropriately but promptly nods off again to sleep until she is again stimulated. She is oriented x3. There is jaundice. She makes short-term eye contact. NECK: Supple. There is no JVD. HEART: Heart sounds are regular S1 and S2. There is trace leg edema. There is an indwelling Wetzel catheter with urine. LUNGS: Symmetric air entry. She is comfortable on room air. No accessory muscle use nor tachypnea. ABDOMEN: Soft and distended. There is some ascites. There is also a significant umbilical hernia and appreciable hepatomegaly. NEUROLOGIC: The patient is not alert. She is requiring verbal and tactile stimulus. She is oriented x3 but continues to nod off during the examination. SKIN: Jaundiced. LABORATORY DATA: Hemoglobin 9.7, platelets 63,000, sodium 135, potassium 4.2, bicarbonate 23, BUN 44, creatinine 1.8. Total bilirubin 5.7, pneumonia 37, albumin is 4.6. Stool occult blood is negative. INPATIENT MEDICATIONS: She continues on Levophed titrate for a MAP of 75. I discontinued her trazodone. Primary Team discontinued her Phenergan. She was started on Megace 800 mg p.o. daily by the primary service along with a one time dose of Ropinirole 1.25 mg. The remainder of medications are unchanged as compared with yesterday. PROBLEMS: 1. Type 2 hepatorenal syndrome. The patient did fail treatment with combination of Midodrine, Octreotide and albumin. She was subsequently transferred to the Intensive Care Unit and started on Levophed pressor support for maintenance of MAP of 75 for improved renal perfusion and indeed her urine output has improved over the past 24 hours along with improvement in serum creatinine. I would continue her at this time on Levophed. Further albumin can be discontinued now that her serum albumin is up to 4.6. I note that there is some improvement in her urine electrolytes as well with urine sodium now up to 16 whereas previously it was less than 10. 2. Metabolic encephalopathy. The patient was oriented x3 but was falling asleep again and again during the exam. Ammonia level was ordered and was acceptable at 37. Medications were discussed with Dr. Richard and trazodone and Phenergan were discontinued. 3. Hyponatremia, it is mild, it is secondary to hepatorenal syndrome and it is expected to improve as her urine output and renal function improve. 4. Decompensated liver cirrhosis with history of alcohol abuse. Primary team is in contact with [facility] in [place]. We will continue to try and stabilize her from a renal perspective.
[2020-11-20] MEDS: CIPROFLOXACIN 500MG TABLET PO SCH ×2 (12:00→16:23)
[2020-11-20] MEDS: FOLIC ACID 1 MG TAB PO SCH (12:25)
--- NOTE | 2020-11-20 14:58 | IPNPDOC ---
Date Seen The patient was seen on 11/20/20. Progress Note SUBJECTIVE: Continued improved urine o/p with levophed gtt, to continue until Cr near normal/normal per nephrology. [facility] called, can likely take patient faster if off levophed to med/surg floor- if off levophed next 24-48 hours may be able to transfer sooner. Otherwise, no acute complaints. OBJECTIVE: PHYSICAL EXAMINATION: VITAL SIGNS: Please see below GENERAL APPEARANCE: NAD, resting in bed, AAOx 3 HEENT:icteric, PERRLA, EOM intact, moist oral mm NECK: No JVD CARDIOVASCULAR: S1S2 +, RRR, No M/R/G LUNGS: Diminished air sounds bilaterally; however, no W/R/R ABDOMEN: obese abd, distended with umbilical hernia, scabbed area on umbilical hernia- slightly reddened. BS + in 4 quad, tense no rebound or guarding. EXTREMITIES: 2+ pitting edema NEURO: CN 2-12 intact, no sensory or motor deficits, no focal deficits PSYCH: Frustrated today LABORATORY DATA: See below. IMAGING STUDIES: CHEST XRAY: No acute cardiopulmonary process appreciated. MICROBIOLOGY: F/u paracentesis GS, Cx ASSESSMENT: 60 y/o F w h/o ETOH liver cirrhosis, recurrent ascites, portal htn not a candidate for TIPS, on liver transplant list,quit EOTH >6months ago was sent by GI, Dr. Pedraza for admission due to decompensated liver disease with recurrent ascites. PLAN: Acute decompensated liver cirrhosis with recurrent ascites -AST/ALT wnl, ammonia improving, INR elevated at 2.4-2.6 -S/p albumin -Initial paracentesis done after admission; however, no fluid studies were sent -Ordering another US paracentesis and US doppler to r/o portal vein thrombosis -Currently not on midodrine, octreotide currently. Remains on lactulose. When off levophed, can resume midodrine. -C/w ciprofloxacin daily for SBP px. -F/u paracentesis fluid cx, gram stain,etc -GI sent her to hospital, Dr. Pedraza, seen by him inpatient on 11/17/20- Patient will require ascitic fluid analysis since the therapeutic paracentesis fluid was not sent for analysis, consider repeat with diagnostic analysis on 11/19/20 and also consider Ultrasound with doppler 11/19/20. -GI recommended transfer to [facility] liver transplant center. Currently in ICU there are no beds available, if can get off levophed gtt can likely get to med/surg bed. Will be goal in next 24-48 hours. Hepatorenal syndrome with fluid overload -Cr improving to 1.54 from 1.8, AST/ALT wnl, ammonia better controlled with lactulose -Hypotensive on midodrine, on levophed due to poor U/O previously on lasix gtt- showing improvement -C/w levophed until Cr near or at normal then can likely d/c -Daily labs -Nephrology following Chronic hyponatremia 2/2 to liver cirrhosis -Na wnl today, monitoring with daily labs. ETOH Liver cirrhosis with portal hypertension -Quit alcohol 6 months ago -On liver transplant list -[facility], Dr. Pedraza consulted -C/w Xifaxan, lactulose. Not on octreotide -See above Reducible non-incarcerated umbilical hernia -Outpatient surgical referral Chronic thrombocytopenia -No active signs of bleeding -Due to alcoholic liver cirrhosis Elevated INR 2/2 to cirrhosis/liver disease -INR 2.4 today -No s/s of bleeding -Coags daily Chronic anemia -No signs of active GI bleed -s/p 1 PRBC transfusion -Occult neg GI px -PPI DVT prophylaxis -TEDs, SCD DISPOSITION: Remains in ICU on levophed with improved u/o. Once off levophed, can likely get med/surg bed easier at [facility] in [place] to be further assessed for liver transplant. GI and nephrology following. TOTAL AMOUNT OF ICU TIME SPENT CARING FOR PATIENT (nonprocedural): 60 mins VS, I&O, 24H, [facility] Vital Signs/I&O Vital Signs Date Time Temp Pulse Resp B/P (MAP) Pulse Ox O2 Delivery O2 Flow Rate FiO2 11/20/20 14:00 81 116/68 (84) 11/20/20 13:30 16 98 Room Air 11/20/20 12:00 98.0 I&O- Last 24 Hours up to 6 AM 11/20/20 06:00 Intake Total 1264.8 ml Output Total 1285 ml Balance -20.2 ml Laboratory Data 24H LABS Laboratory Tests 2 11/20/20 04:25: Immature Granulocyte % (Auto) 0.3, Neutrophils (%) (Auto) 65.5, Lymphocytes (%) (Auto) 15.0L, Monocytes (%) (Auto) 17.4H, Eosinophils (%) (Auto) 1.1, Basophils (%) (Auto) 0.7, Neutrophils # (Auto) 4.9, Lymphocytes # (Auto) 1.1L, Monocytes # (Auto) 1.3H, Eosinophils # (Auto) 0.1, Basophils # (Auto) 0.1, Nucleated Red Blood Cells % (auto) 0.0, Prothrombin Time 27.2H, Prothromb Time International Ratio 2.46, Activated Partial Thromboplast Time 48.7H, Anion Gap 9, Glomerular Filtration Rate 36.8L, Calcium Level 8.5, Magnesium Level 2.2, Total Bilirubin 4.1H, Aspartate Amino Transf (AST/SGOT) 27, Alanine Aminotransferase (ALT/SGPT) 18, Alkaline Phosphatase 80, Total Protein 5.9L, Albumin 4.0, Albumin/Globulin Ratio 2.1 CBC/BMP Laboratory Tests 11/20/20 04:25 Microbiology Microbiology 11/19/20 Stool Occult Blood (JENNIFER) - Final, Complete Current Medications Current Medications Medications (Trade) Dose Ordered Sig/Merle Route PRN Reason Start Time Stop Time Status Last Admin Dose Admin Alprazolam (Xanax) 0.5 mg Q12HP PRN PO ANXIETY 11/18/20 23:15 11/18/20 23:24 Ciprofloxacin (Cipro) 500 mg DAILY@1200 PO 11/16/20 12:00 11/20/20 14:33 DC 11/19/20 11:18 Dextrose (Dextrose 50%) 50 ml STAT STAT IV 11/17/20 20:26 11/17/20 20:40 DC 11/17/20 20:31 Diatrizoate Meglum/ Diatrizoate Sod (Gastrografin) 10 ml Q30M PO 11/17/20 17:00 11/17/20 17:31 DC 11/17/20 17:23 Diphenhydramine HCl (Benadryl) 50 mg QHSP PRN PO INSOMNIA 11/19/20 18:30 Folic Acid (Folic Acid) 1 mg DAILY@1200 PO 11/16/20 12:00 11/20/20 12:25 Furosemide (LASIX injection) 40 mg BID@09,17 IV 11/16/20 09:00 11/16/20 07:15 DC Home Med (Med Rec Complete!) ASDIRECTED XX 11/15/20 18:15 11/15/20 18:17 DC Insulin Human Regular (HumuLIN R INSULIN) 10 units STAT STAT IV 11/17/20 20:26 11/17/20 20:40 DC 11/17/20 22:51 Lactulose (Cephulac) 15 ml BID PO 11/15/20 21:00 11/20/20 08:18 Megestrol Acetate (Megace Acetate Suspension) 800 mg DAILY PO 11/20/20 09:00 11/20/20 08:18 Metronidazole (Flagyl) 500 mg Q8H PO 11/15/20 22:00 11/20/20 14:33 DC 11/20/20 06:32 Midodrine (Proamatine) 5 mg 08,12,16 PO 11/16/20 08:00 11/16/20 07:15 DC Midodrine (Proamatine) 10 mg 08,12,16 PO 11/16/20 08:00 11/18/20 09:38 DC 11/17/20 15:39 Nicotine (Nicoderm Cq 14mg) 1 patch DAILY TD 11/16/20 09:00 11/15/20 22:00 DC Nicotine (Nicoderm Cq 14mg) 1 patch QHS TD 11/15/20 22:00 11/16/20 13:47 DC 11/15/20 22:13 Nicotine (Nicoderm Cq 21mg) 1 patch QHS TD 11/16/20 21:00 11/19/20 20:35 Norepinephrine Bitartrate 16 mg/ Dextrose 500 ml @ 13.1 mls/hr Q24H IV 11/18/20 13:00 11/19/20 14:07 Norepinephrine Bitartrate 8 mg/ Dextrose 500 ml @ 22.5 mls/hr [id number] IV 11/18/20 10:00 11/18/20 12:42 DC Norepinephrine Bitartrate 8 mg/ Dextrose 500 ml @ 37.5 mls/hr [id number] IV 11/18/20 09:30 11/18/20 09:46 DC Octreotide Acetate 1200 mcg/ Sodium Chloride 240 ml @ 10 mls/hr Q24H IV 11/16/20 14:00 11/18/20 09:38 DC 11/17/20 15:39 Ondansetron HCl (Zofran Odt) 4 mg Q6HP PRN PO NAUSEA OR VOMITING 11/17/20 01:00 11/17/20 01:23 Pantoprazole Sodium (Protonix) 40 mg DAILY PO 11/16/20 09:00 11/20/20 08:18 Promethazine HCl (PHENERGAN INJection) 25 mg Q6H IV 11/17/20 09:00 11/19/20 13:00 DC 11/19/20 08:23 Sodium Chloride (Sodium Chloride) 1 gm WM PO 11/16/20 08:00 11/16/20 12:21 DC 11/16/20 09:42 Spironolactone (Aldactone) 50 mg BID PO 11/15/20 21:00 11/16/20 08:55 DC 11/15/20 22:01 Trazodone HCl (Desyrel) 50 mg QHSP PRN PO INSOMNIA 11/16/20 13:45 11/19/20 13:00 DC 11/16/20 22:38 Vitamin B Complex/ Vitamin C (Therapeutic B Complex w/C) 1 cap QHS PO 11/18/20 21:00 11/19/20 20:34 Vitamin E (Vitamin E) 800 units QHS PO 11/18/20 21:00 11/19/20 20:35 Allergies Coded Allergies: No Known Allergies (Unverified , 03/28/20) Rosa Barnett MD Nov 20, 2020 14:58
[2020-11-20] MEDS: NOREPINEPHRINE BITARTRATE 16 MG in D5W 484 ML IV SCH (15:56)
[2020-11-20] MEDS: rifAXIMin 550 MG TAB (XIFAXAN) PO SCH (20:07)
[2020-11-20] MEDS: VITAMIN E 400 INTERNATIONAL UNITS CAP PO SCH (20:08)
[2020-11-20] MEDS: VITAMIN B COMPLEX/VIT C CAP PO SCH (20:08)
[2020-11-20] MEDS: NICOTINE 21MG/24HR 1 EA TRANSDERMAL TD SCH (20:09)
[2020-11-20] MEDS ORDERED: DICYCLOMINE 10 MG CAP PO ONE (22:30)
[2020-11-20] MEDS: ALPRAZolam 0.5 MG TAB PO PRN (23:25)
[2020-11-21] VITALS (53 sets, daily range): BP systolic 83–145; BP diastolic 53–95
[2020-11-21 05:50] LABS: BASO % 0.5 % (0.0-1.0); EOS # 0.1 10^3/uL (0.0-0.5); EOS % 1.2 % (0.0-3.0); HEMATOCRIT 29.6 % (36.0-47.0); HEMOGLOBIN 10.1 g/dl (12.0-15.5); LYMPH # 1.1 10^3/uL (1.5-5.0); LYMPH % 14.5 % (24.0-44.0); MEAN CORPUSCULAR HEMOGLOBIN 30.3 pg (27.0-33.0); MEAN CORPUSCULAR HGB CONC 34.1 g/dl (32.0-36.5); MEAN CORPUSCULAR VOLUME 88.9 fl (80.0-96.0); MONO # 1.1 10^3/uL (0.0-0.8); MONO % 13.9 % (0.0-5.0); NEUTROPHILS # 5.4 10^3/uL (1.5-8.5); NEUTROPHILS % 69.6 % (36.0-66.0); RED BLOOD COUNT 3.33 10^6/uL (4.00-5.40)
[2020-11-21 05:52] LABS: PLATELET COUNT, AUTOMATED 65 10^3/uL (150-450); WHITE BLOOD COUNT 7.8 10^3/uL (4.0-10.0)
[2020-11-21 06:04] LABS: INR 2.63; PROTHROMBIN TIME 28.7 SECONDS (12.5-14.3)
[2020-11-21 06:05] LABS: PARTIAL THROMBOPLASTIN TIME 50.6 SECONDS (24.2-38.5)
[2020-11-21 06:11] LABS: ALBUMIN 4.1 GM/DL (3.2-5.2); BILIRUBIN,TOTAL 3.9 MG/DL (0.2-1.0); CALCIUM LEVEL 8.5 MG/DL (8.5-10.1); CREATININE FOR GFR 1.34 MG/DL (0.55-1.30); GLOMERULAR FILTRATION RATE 43.2 (>51); TOTAL PROTEIN 5.9 GM/DL (6.4-8.2)
[2020-11-21] MEDS ORDERED: SODIUM BICARBONATE 8.4% INJ 50MEQ 50 ML VIAL As Ordered ONE (08:48)
--- NOTE | 2020-11-21 09:27 | IPN ---
PROGRESS NOTE DATE: 11/20/2020 SUBJECTIVE: The patient is seen and examined this morning at the bedside in the Intensive Care Unit. She reports she feels much better and I found her to be much more awake, alert and interactive today as compared to my visit yesterday. She continues on Levophed infusion. Her renal function and urine output have both improved. She wants the Wetzel catheter to be discontinued. PHYSICAL EXAMINATION: VITAL SIGNS: Temperature 98.0, pulse 77, respiratory rate 18, blood pressure 94/54, saturating 99 to 100% on room air. INTAKE AND OUTPUT: Intake yesterday was 1 liter, urine output yesterday was 1210. Weight on the bed scale today is not recorded. GENERAL: Patient is seen awake, alert and oriented x3, lying lateral and recumbent in bed. HEENT: Extraocular muscles are intact. Tongue is moist. NECK: Supple. Jugular veins are elevated. HEART: Heart sounds are regular, S1 and S2. LUNGS: Symmetric air entry which is diminished at the bases. ABDOMEN: Very distended and there is an umbilical hernia. There is hepatomegaly and ascites. EXTREMITIES: No edema. NEUROLOGIC: She is awake, alert and oriented x3. GENITOURINARY: Indwelling Wetzel catheter. LABORATORY DATA: Today's laboratory studies: White count 7.4, hemoglobin 9.8, platelets 67,000, sodium 139, potassium 4.2, BUN 35, creatinine 1.5. T-bilirubin 4.1. INPATIENT MEDICATIONS: She continues on Levophed infusion. She is on Ciprofloxacin as per the primary service and the primary team also gave one time dose of Bentyl and also started her on Rifaximin 500 mg p.o. b.i.d. The remainder of medications are unchanged from prior. PROBLEMS: 1. Type 2 hepatorenal syndrome. The patient is clinically improving with Levophed pressor support for maintenance MAP of 70 to 75 for improved renal perfusion. Her creatinine is down to 1.5. I would like to continue her Levophed for another 24 hours. Her Wetzel catheter can be discontinued at this time. Her serum albumin is still excellent at 4.0 and we can hold off on further albumin at this time. She had already gotten very aggressive albumin supplementation. 2. Hyponatremia. It is secondary to hepatorenal syndrome and it has significantly improved with improvement in renal function and increased urine output. There is no further specific intervention necessary. She should continue with a low salt diet with moderate fluid restriction. 3. Metabolic encephalopathy. It has resolved. Her interfering medications were discontinued yesterday. Her ammonia level is acceptable. 4. Decompensated liver cirrhosis with ascites and a history of alcohol abuse. The primary team is in contact with [facility] in [place]. The patient is on Ciprofloxacin as per primary service and I note was also started on Rifaximin. She continues on Lactulose with stable ammonia levels. If any further paracentesis is done, she should receive albumin as a large volume paracentesis will be a risk factor for worsening renal function.
[2020-11-21 10:00] LABS: SPEC. GRAVITY BODY FLUIDS 1.013 (NOT ESTABLISHED)
[2020-11-21 10:03] LABS: APPEARANCE, BODY FLUID CLOUDY (CLEAR); ASCITES FL COLOR YELLOW (COLORLESS); SOURCE, BODY FLUID ASCITES
[2020-11-21 10:29] LABS: SOURCE, BODY FLUID ALBUMIN ASCITES; SOURCE, BODY FLUID GLUCOSE ASCITES; SOURCE, BODY FLUID TOT PROTEIN ASCITES; TOTAL PROTEIN, BODY FLUID 1.7 G/DL (NOT ESTABLISHED)
[2020-11-21] MEDS: MIDODRINE 5 MG TAB PO SCH ×3 (10:31→16:13)
[2020-11-21] MEDS: PANTOPRAZOLE 40MG TAB (PROTONIX) PO SCH (10:32)
[2020-11-21] MEDS: MEGESTROL 400MG 10ML SUSP ORAL SYRINGE *DRAW UP EXACT DOSE PO SCH (10:32)
[2020-11-21] MEDS: LACTULOSE 20 GM/30 ML SYRUP UD PO SCH ×2 (10:32→20:02)
[2020-11-21] MEDS: rifAXIMin 550 MG TAB (XIFAXAN) PO SCH ×2 (10:32→20:02)
--- NOTE | 2020-11-21 10:46 | REP ---
INDICATION: r/o portal vein thrombosis on abd US with doppler COMPARISON: None. TECHNIQUE: Real time lerma scale B-mode and color Doppler ultrasound examination using curved array transducer. FINDINGS: Liver demonstrates coarsened echotexture with nodular contour consistent with cirrhosis. No focal hepatic lesion identified. Doppler interrogation of the hepatic vasculature demonstrates normal flow direction and velocities with portalized monophasic wave pattern to the hepatic veins consistent with cirrhosis. There is no evidence for portal vein thrombosis and the main portal vein measures 13.7 mm diameter. Main portal vein: 16 cm/sec Splenic vein: 36 cm/sec Hepatic artery PSV: 39 cm/sec (RI 0.62) Gallbladder demonstrates layering sludge and stones without wall thickening or pericholecystic fluid. No obvious biliary ductal dilatation is appreciated. The pancreas is incompletely evaluated due to interposed bowel gas but visualized portions appear normal. Spleen is normal in appearance and measures 8.8 x 7.7 x 4.7 cm without focal splenic lesion identified. The bilateral kidneys are normal in reniform shape without hydronephrosis. Right kidney measures 10.8 x 5.1 x 4.2 cm. Left kidney measures 10.5 x 5.4 x 4.7 cm. Moderate amount of ascites noted throughout the abdomen. IMPRESSION: 1. Cirrhosis with moderate amount of ascites. 2. No evidence for portal vein thrombosis. 3. Cholelithiasis. <Electronically signed by Harshal Vaughn > 11/21/20 1045
[2020-11-21] MEDS: CIPROFLOXACIN 500MG TABLET PO SCH (12:22)
[2020-11-21] MEDS: FOLIC ACID 1 MG TAB PO SCH (12:22)
[2020-11-21] MEDS: NOREPINEPHRINE BITARTRATE 16 MG in D5W 484 ML IV SCH (15:00)
--- NOTE | 2020-11-21 15:07 | IPNPDOC ---
Date Seen The patient was seen on 11/21/20. Progress Note SUBJECTIVE: Stopped levophed this AM, monitoring U/O with midodrine alone. D/shahram shah catheter 11/20/20. No acute complaints overnight. OBJECTIVE: PHYSICAL EXAMINATION: VITAL SIGNS: Please see below GENERAL APPEARANCE: NAD, resting in bed, AAOx 3 HEENT:icteric, PERRLA, EOM intact, moist oral mm NECK: No JVD CARDIOVASCULAR: S1S2 +, RRR, No M/R/G LUNGS: Diminished air sounds bilaterally; however, no W/R/R ABDOMEN: obese abd, distended with umbilical hernia, scabbed area on umbilical hernia- slightly reddened. BS + in 4 quad, tense no rebound or guarding. EXTREMITIES: 2+ pitting edema NEURO: CN 2-12 intact, no sensory or motor deficits, no focal deficits PSYCH: Frustrated today LABORATORY DATA: See below. IMAGING STUDIES: Abd US 11/21/20: Neg for PVT, mod ascites CHEST XRAY: No acute cardiopulmonary process appreciated. MICROBIOLOGY: Ascites fluid GS: no organisms seen Ascites fluid Cx: pending Ascites fluid fungal cx: pending ASSESSMENT: 60 y/o F w h/o ETOH liver cirrhosis, recurrent ascites, portal HTN not a candidate for TIPS, on liver transplant list,quit EOTH >6months ago was sent by GI, Dr. Pedraza for admission due to decompensated liver disease with recurrent ascites. PLAN: Acute decompensated alcoholic liver cirrhosis with recurrent ascites -AST/ALT wnl, ammonia improving, INR elevated but improving slowly -S/p albumin, levels are remaining elevated -Last drink 03/2020 -Initial paracentesis done after admission, 6500 mL taken off, no fluid studies were sent -Repeat paracentesis done 11/21/20, 200 mL taken off but mostly done for diagnostic fluid studies -Restarted midodrine. C/w rifaximin, ciprofloxacin daily for SBP px, lactulose. -F/u paracentesis fluid cx, gram stain,etc -GI recommended transfer to [facility] liver transplant center. Hypotension likely 2/2 to decompensated liver disease -Restarted midodrine as we attempt to wean off levophed (not on for BP support but mainly for u/o although it has been helping) -Monitor BP closely Hepatorenal syndrome with fluid overload -Cr improved further to 1.34, AST/ALT wnl, ammonia better controlled with lactulose -Stopped levophed today as she has been having good u/o and Cr improving -Daily labs -Nephrology following -Currently in ICU there are no beds available, if can get off/stay off levophed gtt can likely get to med/surg bed. Will be goal in next 24hours. Chronic hyponatremia 2/2 to liver cirrhosis -Na wnl today, monitoring with daily labs. Reducible non-incarcerated umbilical hernia -Outpatient surgical referral Chronic thrombocytopenia -No active signs of bleeding -Due to alcoholic liver cirrhosis Elevated INR 2/2 to cirrhosis/liver disease -INR 2.63 today -No s/s of bleeding -Coags daily Chronic anemia -No signs of active GI bleed -s/p 1 PRBC transfusion -Occult neg GI px -PPI DVT prophylaxis -TEDs, SCD DISPOSITION: Stopping levophed today, monitoring u/o. Once off levophed and if u/o continues to be good, can likely get med/surg bed easier at [facility] in [place] to be further assessed for liver transplant. GI and nephrology following. TOTAL AMOUNT OF ICU TIME SPENT CARING FOR PATIENT (nonprocedural): 50 mins VS, I&O, 24H, Fishbone Vital Signs/I&O Vital Signs Date Time Temp Pulse Resp B/P (MAP) Pulse Ox O2 Delivery O2 Flow Rate FiO2 11/21/20 13:04 85 108/69 (82) 11/21/20 12:00 98.0 16 100 Room Air I&O- Last 24 Hours up to 6 AM 11/21/20 06:00 Intake Total 1188.2 ml Output Total 880 ml Balance 308.2 ml Laboratory Data 24H LABS Laboratory Tests 2 11/21/20 05:24: Immature Granulocyte % (Auto) 0.3, Neutrophils (%) (Auto) 69.6H, Lymphocytes (%) (Auto) 14.5L, Monocytes (%) (Auto) 13.9H, Eosinophils (%) (Auto) 1.2, Basophils (%) (Auto) 0.5, Neutrophils # (Auto) 5.4, Lymphocytes # (Auto) 1.1L, Monocytes # (Auto) 1.1H, Eosinophils # (Auto) 0.1, Basophils # (Auto) 0.0, Nucleated Red Blood Cells % (auto) 0.0, Immature Platelet Fraction 0.7, Prothrombin Time 28.7H, Prothromb Time International Ratio 2.63, Activated Partial Thromboplast Time 50.6H, Anion Gap 7L, Glomerular Filtration Rate 43.2L, Calcium Level 8.5, Magnesium Level 2.0, Total Bilirubin 3.9H, Aspartate Amino Transf (AST/SGOT) 28, Alanine Aminotransferase (ALT/SGPT) 17, Alkaline Phosphatase 89, Ammonia 21, Total Protein 5.9L, Albumin 4.1, Albumin/Globulin Ratio 2.3H 11/21/20 09:30: Body Fluid Source ASCITES, Body Fluid Color YELLOW, Body Fluid Appearance CLOUDY, Body Fluid Specific [place] 1.013, Body Fluid WBC (Auto) 124H, Body Fluid RBC (Auto) < 2, Body Fluid Mononuclear Cells % Auto 97.5H, Fluid Polymorphonuclear Cell % Auto 2.5H, Body Fluid Glucose Source ASCITES, Body Fluid Glucose 132, Body Fluid Protein Source ASCITES, Body Fluid Total Protein 1.7, Body Fluid Albumin Source ASCITES, Body Fluid Albumin 1.2 CBC/BMP Laboratory Tests 11/21/20 05:24 Microbiology Microbiology 11/21/20 Acid Fast Stain, Received Pending 11/21/20 Mycobacterial Culture, Received Pending 11/21/20 Fungal Smear, Received Pending 11/21/20 Fungal Culture, Received Pending 11/21/20 Gram Stain - Final, Resulted 11/21/20 Body Fluid Culture, Resulted Pending 11/19/20 Stool Occult Blood (JENNIFER) - Final, Complete Current Medications Current Medications Medications (Trade) Dose Ordered Sig/Merle Route PRN Reason Start Time Stop Time Status Last Admin Dose Admin Alprazolam (Xanax) 0.5 mg Q12HP PRN PO ANXIETY 11/18/20 23:15 11/20/20 23:25 Ciprofloxacin (Cipro) 500 mg DAILY@1200 PO 11/16/20 12:00 11/20/20 14:33 DC 11/19/20 11:18 Ciprofloxacin (Cipro) 500 mg DAILY@1200 PO 11/20/20 16:00 11/21/20 12:22 Dextrose (Dextrose 50%) 50 ml STAT STAT IV 11/17/20 20:26 11/17/20 20:40 DC 11/17/20 20:31 Diatrizoate Meglum/ Diatrizoate Sod (Gastrografin) 10 ml Q30M PO 11/17/20 17:00 11/17/20 17:31 DC 11/17/20 17:23 Diphenhydramine HCl (Benadryl) 50 mg QHSP PRN PO INSOMNIA 11/19/20 18:30 Folic Acid (Folic Acid) 1 mg DAILY@1200 PO 11/16/20 12:00 11/21/20 12:22 Furosemide (LASIX injection) 40 mg BID@09,17 IV 11/16/20 09:00 11/16/20 07:15 DC Home Med (Med Rec Complete!) ASDIRECTED XX 11/15/20 18:15 11/15/20 18:17 DC Insulin Human Regular (HumuLIN R INSULIN) 10 units STAT STAT IV 11/17/20 20:26 11/17/20 20:40 DC 11/17/20 22:51 Lactulose (Cephulac) 15 ml BID PO 11/15/20 21:00 11/21/20 10:32 Megestrol Acetate (Megace Acetate Suspension) 800 mg DAILY PO 11/20/20 09:00 11/21/20 10:32 Metronidazole (Flagyl) 500 mg Q8H PO 11/15/20 22:00 11/20/20 14:33 DC 11/20/20 06:32 Midodrine (Proamatine) 5 mg 08,12,16 PO 11/16/20 08:00 11/16/20 07:15 DC Midodrine (Proamatine) 10 mg 08,12,16 PO 11/21/20 08:00 11/21/20 12:22 Midodrine (Proamatine) 10 mg 08,12,16 PO 11/16/20 08:00 11/18/20 09:38 DC 11/17/20 15:39 Nicotine (Nicoderm Cq 14mg) 1 patch DAILY TD 11/16/20 09:00 11/15/20 22:00 DC Nicotine (Nicoderm Cq 14mg) 1 patch QHS TD 11/15/20 22:00 11/16/20 13:47 DC 11/15/20 22:13 Nicotine (Nicoderm Cq 21mg) 1 patch QHS TD 11/16/20 21:00 11/20/20 20:09 Norepinephrine Bitartrate 16 mg/ Dextrose 500 ml @ 13.1 mls/hr Q24H IV 11/18/20 13:00 11/20/20 15:56 Norepinephrine Bitartrate 8 mg/ Dextrose 500 ml @ 22.5 mls/hr [id number] IV 11/18/20 10:00 11/18/20 12:42 DC Norepinephrine Bitartrate 8 mg/ Dextrose 500 ml @ 37.5 mls/hr [id number] IV 11/18/20 09:30 11/18/20 09:46 DC Octreotide Acetate 1200 mcg/ Sodium Chloride 240 ml @ 10 mls/hr Q24H IV 11/16/20 14:00 11/18/20 09:38 DC 11/17/20 15:39 Ondansetron HCl (Zofran Odt) 4 mg Q6HP PRN PO NAUSEA OR VOMITING 11/17/20 01:00 11/17/20 01:23 Pantoprazole Sodium (Protonix) 40 mg DAILY PO 11/16/20 09:00 11/21/20 10:32 Promethazine HCl (PHENERGAN INJection) 25 mg Q6H IV 11/17/20 09:00 11/19/20 13:00 DC 11/19/20 08:23 Rifaximin (Xifaxan) 550 mg BID PO 11/20/20 21:00 11/21/20 10:32 Sodium Chloride (Sodium Chloride) 1 gm WM PO 11/16/20 08:00 11/16/20 12:21 DC 11/16/20 09:42 Spironolactone (Aldactone) 50 mg BID PO 11/15/20 21:00 11/16/20 08:55 DC 11/15/20 22:01 Trazodone HCl (Desyrel) 50 mg QHSP PRN PO INSOMNIA 11/16/20 13:45 11/19/20 13:00 DC 11/16/20 22:38 Vitamin B Complex/ Vitamin C (Therapeutic B Complex w/C) 1 cap QHS PO 11/18/20 21:00 11/20/20 20:08 Vitamin E (Vitamin E) 800 units QHS PO 11/18/20 21:00 11/20/20 20:08 Allergies Coded Allergies: No Known Allergies (Unverified , 03/28/20) Rosa Barnett MD Nov 21, 2020 15:07
--- NOTE | 2020-11-21 16:31 | REP ---
INDICATION: diagnostic paracentesis, recurrent ascities, r/o SBP The patient has a history of ascites COMPARISON: None. TECHNIQUE: The procedure was performed by HECTOR Alfredo, under the direct supervision of Dr. Galan The risks and benefits of the procedure were explained to the patient and an informed consent was obtained both verbally and written. Directly prior to the start of the procedure a formal time-out was completed in the procedure room. The largest pocket of fluid was localized in the right flank using ultrasound guidance. The skin was prepped and draped in a sterile fashion. Eleven ML of buffered lidocaine was used as a local anesthetic. An 8-[place] multi side-hole catheter was inserted using trocar technique. FINDINGS: 200 mL of yellow ascites was removed and sent to the laboratory for further analysis. The patient tolerated the procedure well and there were no immediate complications. After the appropriate amount of monitored convalescence, the patient was discharged from the department. IMPRESSION: Ultrasound-guided diagnostic paracentesis with removal of 200 mL of fluid. <Electronically signed by Yu Santiago > 11/21/20 1103 <Electronically signed by Heron Galan > 11/21/20 2882
[2020-11-21] MEDS: NICOTINE 21MG/24HR 1 EA TRANSDERMAL TD SCH (20:02)
[2020-11-21] MEDS: VITAMIN B COMPLEX/VIT C CAP PO SCH (20:02)
[2020-11-21] MEDS: VITAMIN E 400 INTERNATIONAL UNITS CAP PO SCH (20:02)
[2020-11-21] MEDS: OCTREOTIDE ACETATE 100MCG/ML VIAL (J2354 PER 25MCG) SC SCH (22:29)
[2020-11-21] MEDS: ALPRAZolam 0.5 MG TAB PO PRN (23:52)
[2020-11-22] VITALS (56 sets, daily range): BP systolic 77–130; BP diastolic 49–78
[2020-11-22] MEDS ORDERED: NS 500 ML IV ONE ×2 (01:00→04:15)
[2020-11-22 05:55] LABS: BASO % 0.3 % (0.0-1.0); EOS # 0.2 10^3/uL (0.0-0.5); EOS % 2.2 % (0.0-3.0); HEMATOCRIT 26.8 % (36.0-47.0); HEMOGLOBIN 9.2 g/dl (12.0-15.5); LYMPH # 0.9 10^3/uL (1.5-5.0); MEAN CORPUSCULAR HEMOGLOBIN 30.9 pg (27.0-33.0); MEAN CORPUSCULAR HGB CONC 34.3 g/dl (32.0-36.5); MEAN CORPUSCULAR VOLUME 89.9 fl (80.0-96.0); MONO # 0.9 10^3/uL (0.0-0.8); MONO % 13.8 % (0.0-5.0); NEUTROPHILS # 4.8 10^3/uL (1.5-8.5); NEUTROPHILS % 70.4 % (36.0-66.0); RED BLOOD COUNT 2.98 10^6/uL (4.00-5.40); WHITE BLOOD COUNT 6.8 10^3/uL (4.0-10.0)
[2020-11-22 05:57] LABS: PLATELET COUNT, AUTOMATED 53 10^3/uL (150-450)
[2020-11-22] MEDS: NOREPINEPHRINE BITARTRATE 16 MG in D5W 484 ML IV SCH (06:00)
[2020-11-22 06:05] LABS: INR 2.63; PROTHROMBIN TIME 28.7 SECONDS (12.5-14.3)
[2020-11-22 06:07] LABS: PARTIAL THROMBOPLASTIN TIME 50.6 SECONDS (24.2-38.5)
[2020-11-22 06:18] LABS: ALBUMIN 3.5 GM/DL (3.2-5.2); BILIRUBIN,TOTAL 3.1 MG/DL (0.2-1.0); CALCIUM LEVEL 7.8 MG/DL (8.5-10.1); CREATININE FOR GFR 2.19 MG/DL (0.55-1.30); GLOMERULAR FILTRATION RATE 24.5 (>51); MAGNESIUM LEVEL 1.9 MG/DL (1.8-2.4); POTASSIUM SERUM 4.2 MEQ/L (3.5-5.1); TOTAL PROTEIN 5.1 GM/DL (6.4-8.2)
[2020-11-22] MEDS: OCTREOTIDE ACETATE 100MCG/ML VIAL (J2354 PER 25MCG) SC SCH (06:55)
[2020-11-22] MEDS: rifAXIMin 550 MG TAB (XIFAXAN) PO SCH ×2 (08:17→20:59)
[2020-11-22] MEDS: MIDODRINE 5 MG TAB PO SCH (08:17)
[2020-11-22] MEDS: PANTOPRAZOLE 40MG TAB (PROTONIX) PO SCH (08:17)
[2020-11-22] MEDS: LACTULOSE 20 GM/30 ML SYRUP UD PO SCH ×2 (08:18→21:00)
[2020-11-22] MEDS: MEGESTROL 400MG 10ML SUSP ORAL SYRINGE *DRAW UP EXACT DOSE PO SCH (08:19)
[2020-11-22] MEDS ORDERED: NOREPINEPHRINE BITARTRATE 16 MG in D5W 484 ML IV SCH (10:21)
[2020-11-22] MEDS: CIPROFLOXACIN 500MG TABLET PO SCH (12:04)
[2020-11-22] MEDS: FOLIC ACID 1 MG TAB PO SCH (12:04)
--- NOTE | 2020-11-22 13:18 | IPN ---
PROGRESS NOTE DATE: 11/22/2020 SUBJECTIVE: The patient is seen and examined this morning at the bedside in the Intensive Care Unit. She did very poorly without Levophed. Her urine output drastically decreased and her systolic blood pressures were mostly in the 70s and 80s. Her Levophed infusion was restarted and she was also bolused 1 liter of normal saline overnight. Laboratory studies today show deterioration in renal function. I explained to the patient that she will need to stay in the ICU on Levophed pressor support until an ICU bed is available for her in [place]. Patient offers no complaints today. PHYSICAL EXAMINATION: VITAL SIGNS: Temperature is 97.1, pulse is 52, respiratory rate 15, blood pressure on Levophed is 101/59, saturating 94% on room air. INTAKE AND OUTPUT: Intake yesterday was 1.2 liters, urine output yesterday was 570 ml, weight on the bed scale today is 64.9 kg. GENERAL: Patient is seen awake, alert and lying in bed in no distress. Appears older than stated age, chronically ill, frail, bitemporal wasting. HEENT: Extraocular muscles are intact. Tongue is moist. NECK: Jugular veins are elevated. HEART: Heart sounds are bradycardic. S1 and S2. There is no leg edema. ABDOMEN: Very distended. There is ascites and there is a prominent umbilical hernia as well. There is no tenderness to palpation. EXTREMITIES: Significant muscle wasting but no significant edema. NEUROLOGIC: She is oriented x3 and conversational. LABORATORY DATA: Sodium 136, potassium 4.2, bicarbonate 22, BUN 35, creatinine 2.1. Albumin 3.5. Ammonia 28. Hemoglobin 9.2, platelets 53,000. INPATIENT MEDICATIONS: I discontinued the Midodrine and she is back on Levophed to titrate for a MAP of 75. She received 1 liter of Normal Saline overnight because of persistent hypotension. She is ordered for five more doses of albumin. The remainder of medications are unchanged as compared to yesterday. PROBLEMS: 1. Hepatorenal syndrome. Patient deteriorated very quickly without Levophed pressor support. Her urine output is oliguric again and her creatinine increased again to 2.1. She is back on Levophed for a MAP of 75 and five doses of albumin 25%, 25 grams q. 6 hourly are ordered as well. There is a very real chance that she may develop dialysis needs, however given her decompensated liver failure I would not start dialysis unless the [facility] in [place] is in agreement. For now, we will continue with the supportive care outlined above. 2. Hypotension. She had a paracentesis yesterday. There was no sign of peritonitis. There is no leukocytosis either and she is also afebrile, most likely hypotension is related to decompensated liver cirrhosis. She is back on Levophed in the setting of hepatorenal syndrome. I discontinued her Midodrine. She will need to stay on Levophed until a transfer is arranged for her. 3. Acute decompensated alcoholic liver cirrhosis with recurrent ascites. Ascitic cell count from yesterday is noted. Would advise against doing large volume paracentesis as it can further the hepatorenal syndrome at this time. She continues on IV Levophed. Her ammonia levels are acceptable. She is also on Lactulose and Rifaximin. The primary team is in conversation with [facility] in [place]. She is being ordered for albumin infusion in the setting of worsening renal function and her albumin level is also decreased as compared to the last couple of days. 4. Chronic thrombocytopenia, chronic anemia, coagulopathy all complicates her care.
--- NOTE | 2020-11-22 16:54 | IPNPDOC ---
Date Seen The patient was seen on 11/22/20. Progress Note SUBJECTIVE: U/O poor, restarted levophed overnight. Cr increased today. Per nephrology, will keep on levophed and will need to be transferred to [place] with it. [facility] called today and no beds available yet. No acute complaints overnight. OBJECTIVE: PHYSICAL EXAMINATION: VITAL SIGNS: Please see below GENERAL APPEARANCE: NAD, resting in bed, AAOx 3 HEENT:icteric, PERRLA, EOM intact, moist oral mm NECK: No JVD CARDIOVASCULAR: S1S2 +, RRR, No M/R/G LUNGS: Diminished air sounds bilaterally; however, no W/R/R ABDOMEN: mild diffuse discomfort on palpation, obese abd, distended with umbilical hernia, scabbed area on umbilical hernia- slightly reddened. BS + in 4 quad, tense no rebound or guarding. EXTREMITIES: 2+ pitting edema NEURO: CN 2-12 intact, no sensory or motor deficits, no focal deficits PSYCH: Frustrated today LABORATORY DATA: See below. IMAGING STUDIES: Abd US 11/21/20: Neg for PVT, mod ascites CHEST XRAY: No acute cardiopulmonary process appreciated. MICROBIOLOGY: Ascites fluid GS: no organisms seen Ascites fluid Cx: pending Ascites fluid fungal cx: pending ASSESSMENT: 60 y/o F w h/o ETOH liver cirrhosis, recurrent ascites, portal HTN not a candidate for TIPS, on liver transplant list,quit EOTH >6months ago was sent by GI, Dr. Pedraza for admission due to decompensated liver disease with recurrent ascites. PLAN: Acute decompensated alcoholic liver cirrhosis with recurrent ascites -AST/ALT wnl, ammonia improved, INR 2.63 -Restarted albumin -Initial paracentesis done after admission, 6500 mL taken off, no fluid studies were sent -Repeat paracentesis done 11/21/20, 200 mL taken off but mostly done for diagnostic fluid studies -Stopped midodrine as levophed was restarted. C/w rifaximin, ciprofloxacin daily for SBP px, lactulose. -F/u paracentesis fluid cx, gram stain,etc -GI recommended transfer to [facility] liver transplant center ICU as she is unable to come off levophed due to low BP. Hypotension likely 2/2 to decompensated liver disease -C/w levophed with goal MAP 75 -No sign of SBP or other infection as WBC is wnl, afebrile -Monitor BP closely Hepatorenal syndrome -Cr increased, deteriorated after cessation of levophed on 11/21/20 and poor U/O -AST/ALT wnl, ammonia wnl -Per nephrology will give albumin Q6H -There is a chance she may develop dialysis needs but given decompensated liver failure would not start this unless [facility] is in agreement -For now, f/u daily labs -Nephrology following Chronic hyponatremia 2/2 to liver cirrhosis -Na wnl today, monitoring with daily labs. Reducible non-incarcerated umbilical hernia -Outpatient surgical referral Chronic thrombocytopenia -No active signs of bleeding -Due to alcoholic liver cirrhosis Elevated INR 2/2 to cirrhosis/liver disease -INR 2.63 today -No s/s of bleeding -Coags daily Chronic anemia -No signs of active GI bleed -s/p 1 PRBC transfusion -Occult neg GI px -PPI DVT prophylaxis -TEDs, SCD DISPOSITION: Restarted levophed due to low U/o and low BP. Can be transferred to [facility] in [place] ICU when bed becomes available. They called earlier and no bed is yet offered, they said perhaps in next several days there may be one. GI and nephrology following. TOTAL AMOUNT OF ICU TIME SPENT CARING FOR PATIENT (nonprocedural): 50 mins VS, I&O, 24H, [facility] Vital Signs/I&O Vital Signs Date Time Temp Pulse Resp B/P (MAP) Pulse Ox O2 Delivery O2 Flow Rate FiO2 11/22/20 16:00 98.7 50 15 109/70 (83) 100 Room Air 11/22/20 12:49 99 I&O- Last 24 Hours up to 6 AM 11/22/20 06:00 Intake Total 2117.4 ml Output Total 340 ml Balance 1777.4 ml Laboratory Data 24H LABS Laboratory Tests 2 11/22/20 05:34: Immature Granulocyte % (Auto) 0.3, Neutrophils (%) (Auto) 70.4H, Lymphocytes (%) (Auto) 13.0L, Monocytes (%) (Auto) 13.8H, Eosinophils (%) (Auto) 2.2, Basophils (%) (Auto) 0.3, Neutrophils # (Auto) 4.8, Lymphocytes # (Auto) 0.9L, Monocytes # (Auto) 0.9H, Eosinophils # (Auto) 0.2, Basophils # (Auto) 0.0, Nucleated Red Blood Cells % (auto) 0.0, Immature Platelet Fraction 2.5 11/22/20 05:35: Prothrombin Time 28.7H, Prothromb Time International Ratio 2.63, Activated Partial Thromboplast Time 50.6H, Anion Gap 9, Glomerular Filtration Rate 24.5L, Calcium Level 7.8L, Magnesium Level 1.9, Total Bilirubin 3.1H, Aspartate Amino Transf (AST/SGOT) 25, Alanine Aminotransferase (ALT/SGPT) 15, Alkaline Phosphatase 78, Ammonia 28, Total Protein 5.1L, Albumin 3.5, Albumin/Globulin Ratio 2.2 CBC/BMP Laboratory Tests 11/22/20 05:34 11/22/20 05:35 Microbiology Microbiology 11/21/20 Acid Fast Stain, Received Pending 11/21/20 Mycobacterial Culture, Received Pending 11/21/20 Fungal Smear, Received Pending 11/21/20 Fungal Culture, Received Pending 11/21/20 Gram Stain - Final, Resulted 11/21/20 Body Fluid Culture, Resulted Pending 11/19/20 Stool Occult Blood (JENNIFER) - Final, Complete Current Medications Current Medications Medications (Trade) Dose Ordered Sig/Merle Route PRN Reason Start Time Stop Time Status Last Admin Dose Admin Alprazolam (Xanax) 0.5 mg Q12HP PRN PO ANXIETY 11/18/20 23:15 11/21/20 23:52 Ciprofloxacin (Cipro) 500 mg DAILY@1200 PO 11/16/20 12:00 11/20/20 14:33 DC 11/19/20 11:18 Ciprofloxacin (Cipro) 500 mg DAILY@1200 PO 11/20/20 16:00 11/22/20 12:04 Dextrose (Dextrose 50%) 50 ml STAT STAT IV 11/17/20 20:26 11/17/20 20:40 DC 11/17/20 20:31 Diatrizoate Meglum/ Diatrizoate Sod (Gastrografin) 10 ml Q30M PO 11/17/20 17:00 11/17/20 17:31 DC 11/17/20 17:23 Diphenhydramine HCl (Benadryl) 50 mg QHSP PRN PO INSOMNIA 11/19/20 18:30 Folic Acid (Folic Acid) 1 mg DAILY@1200 PO 11/16/20 12:00 11/22/20 12:04 Furosemide (LASIX injection) 40 mg BID@09,17 IV 11/16/20 09:00 11/16/20 07:15 DC Home Med (Med Rec Complete!) ASDIRECTED XX 11/15/20 18:15 11/15/20 18:17 DC Insulin Human Regular (HumuLIN R INSULIN) 10 units STAT STAT IV 11/17/20 20:26 11/17/20 20:40 DC 11/17/20 22:51 Lactulose (Cephulac) 15 ml BID PO 11/15/20 21:00 11/22/20 08:18 Megestrol Acetate (Megace Acetate Suspension) 800 mg DAILY PO 11/20/20 09:00 11/22/20 08:19 Metronidazole (Flagyl) 500 mg Q8H PO 11/15/20 22:00 11/20/20 14:33 DC 11/20/20 06:32 Midodrine (Proamatine) 5 mg 08,12,16 PO 11/16/20 08:00 11/16/20 07:15 DC Midodrine (Proamatine) 10 mg 08,12,16 PO 11/21/20 08:00 11/22/20 10:23 DC 11/22/20 08:17 Midodrine (Proamatine) 10 mg 08,12,16 PO 11/16/20 08:00 11/18/20 09:38 DC 11/17/20 15:39 Nicotine (Nicoderm Cq 14mg) 1 patch DAILY TD 11/16/20 09:00 11/15/20 22:00 DC Nicotine (Nicoderm Cq 14mg) 1 patch QHS TD 11/15/20 22:00 11/16/20 13:47 DC 11/15/20 22:13 Nicotine (Nicoderm Cq 21mg) 1 patch QHS TD 11/16/20 21:00 11/21/20 20:02 Norepinephrine Bitartrate 16 mg/ Dextrose 500 ml @ 13.1 mls/hr Q24H IV 11/22/20 05:07 11/22/20 06:00 Norepinephrine Bitartrate 16 mg/ Dextrose 500 ml @ 13.1 mls/hr Q24H IV 11/22/20 10:21 11/22/20 10:27 DC Norepinephrine Bitartrate 16 mg/ Dextrose 500 ml @ 13.1 mls/hr Q24H IV 11/18/20 13:00 11/22/20 05:13 DC 11/20/20 15:56 Norepinephrine Bitartrate 8 mg/ Dextrose 500 ml @ 22.5 mls/hr [id number] IV 11/18/20 10:00 11/18/20 12:42 DC Norepinephrine Bitartrate 8 mg/ Dextrose 500 ml @ 37.5 mls/hr [id number] IV 11/18/20 09:30 11/18/20 09:46 DC Octreotide Acetate 1200 mcg/ Sodium Chloride 240 ml @ 10 mls/hr Q24H IV 11/16/20 14:00 11/18/20 09:38 DC 11/17/20 15:39 Octreotide Acetate (SandoSTATIN) 100 mcg Q8H SC 11/21/20 22:00 11/22/20 10:23 DC 11/22/20 06:55 Ondansetron HCl (Zofran Odt) 4 mg Q6HP PRN PO NAUSEA OR VOMITING 11/17/20 01:00 11/17/20 01:23 Pantoprazole Sodium (Protonix) 40 mg DAILY PO 11/16/20 09:00 11/22/20 08:17 Promethazine HCl (PHENERGAN INJection) 25 mg Q6H IV 11/17/20 09:00 11/19/20 13:00 DC 11/19/20 08:23 Rifaximin (Xifaxan) 550 mg BID PO 11/20/20 21:00 11/22/20 08:17 Sodium Chloride (Sodium Chloride) 1 gm WM PO 11/16/20 08:00 11/16/20 12:21 DC 11/16/20 09:42 Spironolactone (Aldactone) 50 mg BID PO 11/15/20 21:00 11/16/20 08:55 DC 11/15/20 22:01 Trazodone HCl (Desyrel) 50 mg QHSP PRN PO INSOMNIA 11/16/20 13:45 11/19/20 13:00 DC 11/16/20 22:38 Vitamin B Complex/ Vitamin C (Therapeutic B Complex w/C) 1 cap QHS PO 11/18/20 21:00 11/21/20 20:02 Vitamin E (Vitamin E) 800 units QHS PO 11/18/20 21:00 11/21/20 20:02 Allergies Coded Allergies: No Known Allergies (Unverified , 03/28/20) Rosa Barnett MD Nov 22, 2020 16:54
[2020-11-22] MEDS: VITAMIN B COMPLEX/VIT C CAP PO SCH (20:59)
[2020-11-22] MEDS: NICOTINE 21MG/24HR 1 EA TRANSDERMAL TD SCH (21:00)
[2020-11-22] MEDS: VITAMIN E 400 INTERNATIONAL UNITS CAP PO SCH (21:03)
[2020-11-23] VITALS (49 sets, daily range): BP systolic 82–128; BP diastolic 51–79
[2020-11-23] MEDS: ALPRAZolam 0.5 MG TAB PO PRN (00:18)
[2020-11-23 05:36] LABS: BASO % 0.6 % (0.0-1.0); EOS # 0.1 10^3/uL (0.0-0.5); HEMATOCRIT 25.9 % (36.0-47.0); HEMOGLOBIN 9.1 g/dl (12.0-15.5); LYMPH # 0.8 10^3/uL (1.5-5.0); LYMPH % 10.8 % (24.0-44.0); MEAN CORPUSCULAR HEMOGLOBIN 31.1 pg (27.0-33.0); MEAN CORPUSCULAR HGB CONC 35.1 g/dl (32.0-36.5); MEAN CORPUSCULAR VOLUME 88.4 fl (80.0-96.0); MONO # 0.9 10^3/uL (0.0-0.8); MONO % 12.6 % (0.0-5.0); NEUTROPHILS # 5.2 10^3/uL (1.5-8.5); NEUTROPHILS % 73.6 % (36.0-66.0); RED BLOOD COUNT 2.93 10^6/uL (4.00-5.40)
[2020-11-23 05:37] LABS: PLATELET COUNT, AUTOMATED 61 10^3/uL (150-450)
[2020-11-23 05:47] LABS: INR 2.49; PARTIAL THROMBOPLASTIN TIME 51.5 SECONDS (24.2-38.5); PROTHROMBIN TIME 27.5 SECONDS (12.5-14.3)
[2020-11-23 06:00] LABS: ALBUMIN 3.8 GM/DL (3.2-5.2); CREATININE FOR GFR 3.03 MG/DL (0.55-1.30); GLOMERULAR FILTRATION RATE 16.9 (>51); TOTAL PROTEIN 5.6 GM/DL (6.4-8.2)
[2020-11-23] MEDS: PANTOPRAZOLE 40MG TAB (PROTONIX) PO SCH (08:13)
[2020-11-23] MEDS: LACTULOSE 20 GM/30 ML SYRUP UD PO SCH (08:13)
[2020-11-23] MEDS: NOREPINEPHRINE BITARTRATE 16 MG in D5W 484 ML IV SCH (08:14)
[2020-11-23] MEDS: rifAXIMin 550 MG TAB (XIFAXAN) PO SCH (08:14)
[2020-11-23] MEDS: MEGESTROL 400MG 10ML SUSP ORAL SYRINGE *DRAW UP EXACT DOSE PO SCH (08:15)
[2020-11-23] MEDS: FOLIC ACID 1 MG TAB PO SCH (11:47)
[2020-11-23] MEDS: CIPROFLOXACIN 500MG TABLET PO SCH (11:47)
[2020-11-23] MEDS: MIDODRINE 5 MG TAB PO SCH ×2 (12:22→15:11)
--- NOTE | 2020-11-23 15:25 | DS.PDOC ---
Discharge Summary General Date of Admission Nov 15, 2020 at 18:04 Date of Discharge 11/23/20 Attending Physician: oRsa Barnett MD Discharge Summary HISTORY OF PRESENT ILLNESS: Patient is a 60 y/o F w h/o ETOH liver cirrhosis, recurrent ascites, portal htn not a candidate for TIPS (awaiting liver transplant evaluation) quit EOTH >6months ago was sent by GI ( Dr. Pedraza) on 11/15/20 for direct admission due to decompensated liver disease with recurrent ascites. She c/o 20lb weight gain, increasing LE edema, fatigue, sob w exertion, and abd pain due to increasing abdominal distention. She denies cough fever chills hematemesis coffee ground emesis brbpr black tarry stools. In the ER, pt had a creatinine of 2. She denied fever , confusion, headache, changes in vision despite hyponatremia. Admits to nausea. No NSAID use. Hospitalist was asked to admit for ascites, acute kidney injury, hyponatremia from liver cirrhosis. HOPSITAL COURSE: The patient was treated for acute decompensated alcoholic liver cirrhosis with recurrent ascites in our ICU. AST/ALT remained wnl, ammonia incr slightly and patient was started on laculose BID. INR remained slightly elevated at 2.49, MELD most recently 32. Patient has received a total of 21 doses of albumin since admission for worsening renal fx, hypotension, poor u/o. She had significant abdominal distention and discomfort on admission, initial paracentesis done after admission, 6500 mL taken off, no fluid studies were sent. Repeat paracentesis done 11/21/20, 200 mL taken off but mostly done for diagnostic fluid studies which were not suspicious for SBP. GI followed closely. Due to elevated Cr, nephrology was involved and she was diagnosed with hepatorenal syndrome. Initially patient's Cr improved on levophed; however, when attempted to trial off of it, Cr increased and has not recovered. She was restarted on levophed; however, Cr continues to increase despite levophed, albumin. This AM incr from 2.19 to 3.03. She continues to have very poor U/O even while on levophed, approx 5-20/hr. Per nephrology on 11/23/20: expecting dialysis within next several days if continues as above. H/H found to be low, received one unit PRBC this admission, occult blood neg. Hypotension is likely 2/2 to decompensated liver disease. When trialed off levophed the second time this admission (levophed stopped at 12:30 PM on 11/23/20) she is maintaining systolic >90 mmHg, MAP >70 for several hours with midodrine and albumin. When discussed with Dr. Orona in [place], he was happy with goal systolic >70 mmHg and for patient to be asymptomatic before transfer to non-ICU bed. Hypotension is not suspected to be from anything else, infection ruled out. Other chronic issues were stable. Bed was received and transfer initiated on 11/23/20, accepting physician at [facility] is Dr. Orona. At time of t ransfer, patient denied lightheadedness, dizziness, chest pain, shortness of breath, n/v/d, fevers, chills. PAST MEDICAL HISTORY: ETOH abuse hx liver cirrhosis w portal htn Recurrent ascites, not a candidate for TIPS PAST SURGICAL HISTORY: Abdominal paracentesis SOCIAL HX: Hx of alcohol abuse, quit >6 months ago. Prior smoker >1 PPD for >20 years, also quit several months ago. Lives alone in local area. GI provider- Dr. Pedraza FAMILY HISTORY: FATHER CAD MATERNAL UNCLE cancer ALLERGIES: Please see below. DISCHARGE MEDICATIONS: Please see below. PHYSICAL EXAMINATION: VITAL SIGNS: Please see below GENERAL APPEARANCE: NAD, resting in bed, AAOx 3 HEENT:icteric, PERRLA, EOM intact, moist oral mm NECK: No JVD CARDIOVASCULAR: S1S2 +, RRR, No M/R/G LUNGS: Diminished air sounds bilaterally; however, no W/R/R ABDOMEN: mild diffuse discomfort on palpation, obese abd, distended with umbilical hernia, scabbed area on umbilical hernia- slightly reddened. BS + in 4 quad, tense no rebound or guarding. EXTREMITIES: 1-2+ pitting edema NEURO: CN 2-12 intact, no sensory or motor deficits, no focal deficits PSYCH: Frustrated today LABORATORY DATA: See below. IMAGING STUDIES: Abd US 11/21/20: Neg for PVT, mod ascites CHEST XRAY: No acute cardiopulmonary process appreciated. MICROBIOLOGY: Ascites fluid GS: no organisms seen Ascites fluid Cx: NG Ascites fluid fungal cx: pending ASSESSMENT: 60 y/o F w h/o ETOH liver cirrhosis, recurrent ascites, portal HTN not a candidate for TIPS, on liver transplant list,quit EOTH >6months ago was sent by GI, Dr. Pedraza for admission due to decompensated liver disease with recurrent ascites. Transferring to [facility] today for further evaluation for liver transplant, treatment of worsening hepatorenal syndrome, decompensated liver disease. PLAN: Acute decompensated alcoholic liver cirrhosis with recurrent ascites -AST/ALT wnl, ammonia incr slightly, INR 2.49, MELD 32 -Restarted albumin 11/22/20, worsening renal fx (see below) -Initial paracentesis done after admission, 6500 mL taken off, no fluid studies were sent -Repeat paracentesis done 11/21/20, 200 mL taken off but mostly done for sai gnostic fluid studies -Levophed stopped this afternoon. Restarted on midodrine, c/w rifaximin, cipr ofloxacin daily for SBP px, lactulose. -Paracentesis micro above, fungal studies pending -GI recommended transfer to [facility] liver transplant center ICU as she is unable to come off levophed due to low BP. Hepatorenal syndrome -Cr continues to increase despite levophed, albumin. This AM incr from 2.19 to 3.03 -Very poor U/O even while on levophed, approx 5-20/hr -AST/ALT wnl, ammonia slightly incr -Started back on albumin 11/22/20 -Per nephrology: expecting dialysis within next several days if continues as above -Discussed with accepting physician, please refer to nephrology notes Hypotension likely 2/2 to decompensated liver disease -Levophed stopped at 12:30 PM on 11/23/20, maintaining systolic >90 mmHg, MAP >70 for several hours -No sign of SBP or other infection as WBC is wnl, afebrile -Discussed case with Dr. Orona- goal systolic is >70 mmHg and for patient to be asymptomatic before transfer. -Restarted midodrine TID Chronic hyponatremia 2/2 to liver cirrhosis -Na 134 -Monitoring with daily labs. Reducible non-incarcerated umbilical hernia -Outpatient surgical referral Chronic thrombocytopenia -No active signs of bleeding -Due to alcoholic liver cirrhosis Elevated INR 2/2 to cirrhosis/liver disease -INR 2.49 today -No s/s of bleeding -Coags daily Chronic anemia -H/H as been stable -No signs of active GI bleed -s/p 1 PRBC transfusion this admission -Occult neg GI px -PPI DVT prophylaxis -TEDs, SCD DISPOSITION: Transferring to [facility] in [place], [place]. Accepting physician Dr. Dudley Orona. TIME SPENT ON DISCHARGE: 70 minutes. Vital Signs/I&Os Vital Signs Date Time Temp Pulse Resp B/P (MAP) Pulse Ox O2 Delivery O2 Flow Rate FiO2 11/23/20 14:13 98.1 98 23 107/72 99 Room Air 11/22/20 12:49 99 I&O- Last 24 Hours up to 6 AM 11/23/20 06:00 Intake Total 1041.0 ml Output Total 300 ml Balance 741.0 ml Laboratory Data Labs 24H Laboratory Tests 2 11/23/20 05:22: Immature Granulocyte % (Auto) 0.4, Neutrophils (%) (Auto) 73.6H, Lymphocytes (%) (Auto) 10.8L, Monocytes (%) (Auto) 12.6H, Eosinophils (%) (Auto) 2.0, Basophils (%) (Auto) 0.6, Neutrophils # (Auto) 5.2, Lymphocytes # (Auto) 0.8L, Monocytes # (Auto) 0.9H, Eosinophils # (Auto) 0.1, Basophils # (Auto) 0.0, Nucleated Red Blood Cells % (auto) 0.0, Prothrombin Time 27.5H, Prothromb Time International Ratio 2.49, Activated Partial Thromboplast Time 51.5H, Anion Gap 9, Glomerular Filtration Rate 16.9L, Calcium Level 8.0L, Magnesium Level 2.0, Total Bilirubin 3.0H, Aspartate Amino Transf (AST/SGOT) 19, Alanine Aminotransferase (ALT/SGPT) 15, Alkaline Phosphatase 74, Ammonia 40H, Total Protein 5.6L, Albumin 3.8, Albumin/Globulin Ratio 2.1 CBC/BMP Laboratory Tests 11/23/20 05:22 Microbiology Microbiology 11/21/20 Acid Fast Stain, Received Pending 11/21/20 Mycobacterial Culture, Received Pending 11/21/20 Fungal Smear, Received Pending 11/21/20 Fungal Culture, Received Pending 11/21/20 Gram Stain - Final, Complete 11/21/20 Body Fluid Culture - Final, Complete 11/19/20 Stool Occult Blood (JENNIFER) - Final, Complete Discharge Medications Scheduled Ciprofloxacin HCl (Ciprofloxacin HCl) 500 Mg Tablet, 500 MG PO DAILY, (Reported) TAKES AFTER LUNCH Folic Acid (Folic Acid) 1 Mg Tablet, 1 MG PO DAILY, (Reported) TAKES AFTER LUNCH Gabapentin (Gabapentin) 300 Mg Capsule, 300 MG PO QAM, (Reported) Gabapentin (Gabapentin) 300 Mg Capsule, 600 MG PO QHS, (Reported) Lactulose (Lactulose) 10 Gm/15 Ml Solution, 15 ML PO BID, (Reported) Midodrine HCl (Midodrine HCl) 10 Mg Tablet, 10 MG PO TID Nicotine (Nicotine Patch) 21 Mg Patch.td24, 1 PATCH TD QHS Pantoprazole Sodium (Pantoprazole Sodium) 40 Mg Tablet.dr, 40 MG PO DAILY, (Reported) Scheduled PRN Trazodone HCl (Trazodone HCl) 50 Mg Tablet, 50 MG PO QHS PRN for INSOMNIA, (Reported) Allergies Coded Allergies: No Known Allergies (Unverified , 03/28/20) Rosa Barnett MD Nov 23, 2020 15:25
[2020-11-23] MEDS ORDERED: CIPR-249 PO (15:56)
[2020-11-23] MEDS ORDERED: B-CO1TAB12 PO (15:56)
[2020-11-23] MEDS ORDERED: MIDO5TA PO (15:56)
[2020-11-23] MEDS ORDERED: DIPH50CA PO (15:56)
[2020-11-23] MEDS ORDERED: MEGE40SU5 PO (15:56)
[2020-11-23] MEDS ORDERED: ALPR0.5T3 PO (15:56)
[2020-11-23] MEDS ORDERED: XIFA550T PO (15:56)
[2020-11-23] MEDS ORDERED: ONDA4TAB6 PO (15:56)
== END 2020-11-23 18:35 | disposition short-term general hospital (02) | DRG 280 ==
LOC: M ED 15:51 → M ED INP 18:04 → ENRESERV 18:46 → M MS5PR 20:17 → M PCU 11-17 18:40
PROVIDERS: ADMIT General Practice; ATTEND Internal Medicine
PROC: 0W9F3ZZ Drainage of Abdominal Wall, Percutaneous Approach (ICD-10-PCS; 2020-11-16)
PROC: 30233N1 Transfusion of Nonautologous Red Blood Cells into Peripheral Vein, Percutaneous Approach (ICD-10-PCS; principal; 2020-11-17)
PROC: 0W9F3ZZ Drainage of Abdominal Wall, Percutaneous Approach (ICD-10-PCS; 2020-11-21)
DX: K70.31 Alcoholic cirrhosis of liver with ascites (principal); K76.7 Hepatorenal syndrome; N17.9 Acute kidney failure, unspecified; I95.9 Hypotension, unspecified; D69.6 Thrombocytopenia, unspecified; K76.6 Portal hypertension; E87.1 Hypo-osmolality and hyponatremia; D64.9 Anemia, unspecified; E87.5 Hyperkalemia; K42.9 Umbilical hernia without obstruction or gangrene; Z79.899 Other long term (current) drug therapy

== ENCOUNTER → 2020-12-04 | Outpatient (CLI) | payer OTHER ==
[~2020-12-04] MED LIST changes: +ALPR0.5T3 PO; +B-CO1TAB12 PO; +CHAN1PAK11; +CIPR-249 PO; +DIPH50CA PO; +MEGE40SU5 PO; +MIDO10TA PO; +MIDO5TA PO; +NICO21PAT TD; +ONDA4TAB6 PO; +SERT25TA85 PO; +THIA100T7 PO; +XIFA550T PO
[2020-12-04 11:37] LABS: BASO % 0.5 % (0.0-1.0); EOS # 0.1 10^3/uL (0.0-0.5); EOS % 1.8 % (0.0-3.0); HEMATOCRIT 29.9 % (36.0-47.0); HEMOGLOBIN 10.5 g/dl (12.0-15.5); LYMPH # 0.8 10^3/uL (1.5-5.0); LYMPH % 11.5 % (24.0-44.0); MEAN CORPUSCULAR HEMOGLOBIN 31.4 pg (27.0-33.0); MEAN CORPUSCULAR HGB CONC 35.1 g/dl (32.0-36.5); MEAN CORPUSCULAR VOLUME 89.5 fl (80.0-96.0); MONO % 13.5 % (2.0-8.0); NEUTROPHILS # 5.3 10^3/uL (1.5-8.5); PLATELET COUNT, AUTOMATED 105 10^3/uL (150-450); RED BLOOD COUNT 3.34 10^6/uL (4.00-5.40); WHITE BLOOD COUNT 7.3 10^3/uL (4.0-10.0)
[2020-12-04 11:47] LABS: INR 1.93; PROTHROMBIN TIME 22.5 SECONDS (12.5-14.3)
[2020-12-04 12:09] LABS: ALBUMIN 3.4 GM/DL (3.2-5.2); BILIRUBIN,DIRECT 1.2 MG/DL (0.0-0.2); BILIRUBIN,TOTAL 3.3 MG/DL (0.2-1.0); CALCIUM LEVEL 8.5 MG/DL (8.5-10.1); CREATININE FOR GFR 2.22 MG/DL (0.55-1.30); GLOMERULAR FILTRATION RATE 24.2 (>51); MAGNESIUM LEVEL 1.6 MG/DL (1.8-2.4); PHOSPHORUS LEVEL 3.2 MG/DL (2.5-4.9); POTASSIUM SERUM 3.1 MEQ/L (3.5-5.1); TOTAL PROTEIN 6.4 GM/DL (6.4-8.2)
[2020-12-04 12:25] VITALS: BP 106/66
--- NOTE | 2020-12-04 14:01 | REP ---
INDICATION: ASCITES, DRAW LABS IN IRPRO WELL The patient has a history of ascites COMPARISON: None. TECHNIQUE: The procedure was performed by HECTOR Alfredo, under the direct supervision of Dr. Galan The risks and benefits of the procedure were explained to the patient and an informed consent was obtained both verbally and written. Directly prior to the start of the procedure a formal time-out was completed in the procedure room. The largest pocket of fluid was localized in the right flank using ultrasound guidance. The skin was prepped and draped in a sterile fashion. Eleven ML of buffered lidocaine was used as a local anesthetic. An 8-Maori multi side-hole catheter was inserted using trocar technique. FINDINGS: 6200 mL of yellow ascites was removed and discarded. The patient tolerated the procedure well and there were no immediate complications. After the appropriate amount of monitored convalescence, the patient was discharged from the department. IMPRESSION: Ultrasound-guided paracentesis with removal of 6200 mL of yellow ascites. <Electronically signed by Yu Santiago > 12/04/20 [id number] <Electronically signed by Heron Galan > 12/04/20 [id number]
== END ==
LOC: M IRPRO 10:25
PROVIDERS: ATTEND Internal Medicine Gastroenterology
DX: K74.60 Unspecified cirrhosis of liver (principal); R18.8 Other ascites
CPT/HCPCS: 49083; 80048; 80076; 83735; 84100; 85025; 85610; 96365; P9047

== ENCOUNTER → 2020-12-07 | Outpatient (CLI) | payer OTHER ==
[~2020-12-07] MED LIST changes: -CHAN1PAK11
[2020-12-07 12:15] LABS: BASO % 0.5 % (0.0-1.0); EOS # 0.1 10^3/uL (0.0-0.5); EOS % 1.4 % (0.0-3.0); HEMATOCRIT 29.3 % (36.0-47.0); HEMOGLOBIN 10.1 g/dl (12.0-15.5); LYMPH % 13.6 % (24.0-44.0); MEAN CORPUSCULAR HEMOGLOBIN 31.2 pg (27.0-33.0); MEAN CORPUSCULAR HGB CONC 34.5 g/dl (32.0-36.5); MEAN CORPUSCULAR VOLUME 90.4 fl (80.0-96.0); MONO # 1.1 10^3/uL (0.0-0.8); MONO % 14.7 % (2.0-8.0); NEUTROPHILS # 5.1 10^3/uL (1.5-8.5); PLATELET COUNT, AUTOMATED 127 10^3/uL (150-450); RED BLOOD COUNT 3.24 10^6/uL (4.00-5.40); WHITE BLOOD COUNT 7.4 10^3/uL (4.0-10.0)
[2020-12-07 12:36] LABS: PROTHROMBIN TIME 23.1 SECONDS (12.5-14.3)
[2020-12-07 12:52] LABS: ALBUMIN 3.7 GM/DL (3.2-5.2); BILIRUBIN,TOTAL 2.8 MG/DL (0.2-1.0); CALCIUM LEVEL 8.6 MG/DL (8.5-10.1); CREATININE FOR GFR 1.91 MG/DL (0.55-1.30); GLOMERULAR FILTRATION RATE 28.7 (>51); MAGNESIUM LEVEL 1.6 MG/DL (1.8-2.4); PHOSPHORUS LEVEL 2.8 MG/DL (2.5-4.9); POTASSIUM SERUM 3.5 MEQ/L (3.5-5.1); TOTAL PROTEIN 6.2 GM/DL (6.4-8.2)
== END ==
LOC: M LAB 11:22
PROVIDERS: ATTEND Internal Medicine Gastroenterology
DX: K70.31 Alcoholic cirrhosis of liver with ascites (principal)

== ENCOUNTER → 2020-12-10 | Outpatient (CLI) | payer OTHER ==
[~2020-12-10] MED LIST changes: +CHAN1PAK11; +LIDOCAINE 1% MDV 20ML VIAL As Ordered ONE; +SODIUM BICARBONATE 8.4% INJ 50MEQ 50 ML VIAL As Ordered ONE
[2020-12-10 14:25] VITALS: BP 109/61
--- NOTE | 2020-12-10 16:46 | REP ---
INDICATION: ASCITES The patient has a history of ascites COMPARISON: None. TECHNIQUE: The procedure was performed by HECTOR Alfredo, under the direct supervision of Dr. Conn The risks and benefits of the procedure were explained to the patient and an informed consent was obtained both verbally and written. Directly prior to the start of the procedure a formal time-out was completed in the procedure room. The largest pocket of fluid was localized in the right flank using ultrasound guidance. The skin was prepped and draped in a sterile fashion. Eleven ML of buffered lidocaine was used as a local anesthetic. An 8-Hungarian multi side-hole catheter was inserted using trocar technique. FINDINGS: 5600 mL of yellow ascites fluid was removed and discarded. The patient tolerated the procedure well and there were no immediate complications. After the appropriate amount of monitored convalescence, the patient was discharged from the department. IMPRESSION: Ultrasound-guided paracentesis with removal of 5600 mL of ascites. <Electronically signed by Yu Santiago > 12/10/20 [id number] <Electronically signed by James Conn > 12/10/20 [id number]
== END ==
LOC: M IRPRO 12:26
PROVIDERS: ATTEND Internal Medicine Gastroenterology
DX: K70.31 Alcoholic cirrhosis of liver with ascites (principal)
CPT/HCPCS: 49083; 96365; P9047

== ENCOUNTER → 2020-12-14 | Outpatient (CLI) | payer OTHER ==
[~2020-12-14] MED LIST changes: -CHAN1PAK11; -LIDOCAINE 1% MDV 20ML VIAL As Ordered ONE; -SODIUM BICARBONATE 8.4% INJ 50MEQ 50 ML VIAL As Ordered ONE
[2020-12-14 14:06] LABS: BASO % 0.5 % (0.0-1.0); EOS # 0.1 10^3/uL (0.0-0.5); EOS % 0.9 % (0.0-3.0); HEMATOCRIT 27.8 % (36.0-47.0); HEMOGLOBIN 9.5 g/dl (12.0-15.5); LYMPH # 0.8 10^3/uL (1.5-5.0); LYMPH % 9.5 % (24.0-44.0); MEAN CORPUSCULAR HEMOGLOBIN 30.4 pg (27.0-33.0); MEAN CORPUSCULAR HGB CONC 34.2 g/dl (32.0-36.5); MEAN CORPUSCULAR VOLUME 89.1 fl (80.0-96.0); MONO % 11.8 % (2.0-8.0); NEUTROPHILS # 6.3 10^3/uL (1.5-8.5); NEUTROPHILS % 76.7 % (36.0-66.0); RED BLOOD COUNT 3.12 10^6/uL (4.00-5.40); WHITE BLOOD COUNT 8.2 10^3/uL (4.0-10.0)
[2020-12-14 14:20] LABS: INR 1.65; PROTHROMBIN TIME 19.9 SECONDS (12.5-14.3)
[2020-12-14 14:21] LABS: PARTIAL THROMBOPLASTIN TIME 28.6 SECONDS (24.2-38.5)
[2020-12-14 15:04] LABS: ALBUMIN 3.8 GM/DL (3.2-5.2); BILIRUBIN,DIRECT 0.7 MG/DL (0.0-0.2); CALCIUM LEVEL 8.8 MG/DL (8.5-10.1); CREATININE FOR GFR 1.68 MG/DL (0.55-1.30); GLOMERULAR FILTRATION RATE 33.3 (>51); TOTAL PROTEIN 6.5 GM/DL (6.4-8.2)
== END ==
LOC: M LAB 13:22
PROVIDERS: ATTEND Internal Medicine Gastroenterology
DX: K70.31 Alcoholic cirrhosis of liver with ascites (principal)

== ENCOUNTER → 2020-12-17 | Outpatient (CLI) | payer OTHER ==
[~2020-12-17] MED LIST changes: +CHAN1PAK11; +LIDOCAINE 1% MDV 20ML VIAL As Ordered ONE
[2020-12-17 13:01] LABS: BASO # 0.1 10^3/uL (0.0-0.2); BASO % 0.5 % (0.0-1.0); EOS # 0.1 10^3/uL (0.0-0.5); EOS % 0.9 % (0.0-3.0); HEMATOCRIT 29.8 % (36.0-47.0); HEMOGLOBIN 10.1 g/dl (12.0-15.5); LYMPH # 0.7 10^3/uL (1.5-5.0); LYMPH % 7.2 % (24.0-44.0); MEAN CORPUSCULAR HEMOGLOBIN 30.8 pg (27.0-33.0); MEAN CORPUSCULAR HGB CONC 33.9 g/dl (32.0-36.5); MEAN CORPUSCULAR VOLUME 90.9 fl (80.0-96.0); MONO # 1.1 10^3/uL (0.0-0.8); NEUTROPHILS # 8.1 10^3/uL (1.5-8.5); NEUTROPHILS % 79.2 % (36.0-66.0); PLATELET COUNT, AUTOMATED 134 10^3/uL (150-450); RED BLOOD COUNT 3.28 10^6/uL (4.00-5.40); WHITE BLOOD COUNT 10.2 10^3/uL (4.0-10.0)
[2020-12-17 13:14] LABS: INR 1.73; PROTHROMBIN TIME 20.6 SECONDS (12.5-14.3)
[2020-12-17 13:15] LABS: PARTIAL THROMBOPLASTIN TIME 37.3 SECONDS (24.2-38.5)
[2020-12-17 13:31] LABS: ALBUMIN 3.7 GM/DL (3.2-5.2); BILIRUBIN,DIRECT 1.2 MG/DL (0.0-0.2); BILIRUBIN,TOTAL 2.8 MG/DL (0.2-1.0); CALCIUM LEVEL 8.7 MG/DL (8.5-10.1); CREATININE FOR GFR 1.6 MG/DL (0.55-1.30); GLOMERULAR FILTRATION RATE 35.2 (>51); MAGNESIUM LEVEL 1.7 MG/DL (1.8-2.4); PHOSPHORUS LEVEL 3.4 MG/DL (2.5-4.9); POTASSIUM SERUM 3.9 MEQ/L (3.5-5.1); TOTAL PROTEIN 6.7 GM/DL (6.4-8.2)
[2020-12-17 14:06] VITALS: BP 118/57
--- NOTE | 2020-12-17 15:45 | REP ---
INDICATION: ASCITES- LABS FIRST. COMPARISON: None. TECHNIQUE: The procedure was performed under the direct supervision of Dr. Conn. The risks and benefits of the procedure were explained to the patient and informed consent was obtained. The risks and benefits of the procedure were explained to the patient and informed consent was obtained. The largest pocket of fluid was localized in the left flank using ultrasound guidance. The skin was prepped and draped in a sterile fashion. 1% lidocaine was used as a local anesthetic. Using ultrasound guidance an 8-German multi side-hole catheter was inserted using trocar technique. 5150 cc of yellow fluid was withdrawn and discarded. The patient tolerated the procedure well and there were no immediate complications. After the appropriate amount of monitored convalescence, the patient was discharged from the department. FINDINGS: None IMPRESSION: Ultrasound-guided paracentesis yielding 5150 cc of yellow fluid. <Electronically signed by Nathanael Garduno > 12/17/20 1532 <Electronically signed by James Conn > 12/17/20 [id number]
== END ==
LOC: M IRPRO 11:59
PROVIDERS: ATTEND Internal Medicine Gastroenterology
DX: K70.31 Alcoholic cirrhosis of liver with ascites (principal)
CPT/HCPCS: 49083; 80048; 80076; 83735; 84100; 85025; 85610; 85730; 96365; P9047

== ENCOUNTER → 2020-12-24 | Outpatient (CLI) | payer OTHER ==
[~2020-12-24] MED LIST changes: -LIDOCAINE 1% MDV 20ML VIAL As Ordered ONE; +SODIUM BICARBONATE 8.4% INJ 50MEQ 50 ML VIAL As Ordered ONE
[2020-12-24 11:14] LABS: BASO # 0.1 10^3/uL (0.0-0.2); BASO % 0.7 % (0.0-1.0); EOS # 0.1 10^3/uL (0.0-0.5); EOS % 1.1 % (0.0-3.0); HEMATOCRIT 29.4 % (36.0-47.0); LYMPH # 0.9 10^3/uL (1.5-5.0); LYMPH % 10.2 % (24.0-44.0); MEAN CORPUSCULAR HEMOGLOBIN 31.2 pg (27.0-33.0); MEAN CORPUSCULAR VOLUME 91.6 fl (80.0-96.0); MONO % 11.5 % (2.0-8.0); NEUTROPHILS # 6.8 10^3/uL (1.5-8.5); NEUTROPHILS % 75.1 % (36.0-66.0); PLATELET COUNT, AUTOMATED 138 10^3/uL (150-450); RED BLOOD COUNT 3.21 10^6/uL (4.00-5.40); WHITE BLOOD COUNT 9.1 10^3/uL (4.0-10.0)
[2020-12-24 11:22] LABS: INR 1.71; PARTIAL THROMBOPLASTIN TIME 37.3 SECONDS (24.2-38.5); PROTHROMBIN TIME 20.4 SECONDS (12.5-14.3)
[2020-12-24 11:35] LABS: ALBUMIN 3.7 GM/DL (3.2-5.2); BILIRUBIN,DIRECT 1.2 MG/DL (0.0-0.2); CALCIUM LEVEL 8.7 MG/DL (8.5-10.1); CREATININE FOR GFR 1.73 MG/DL (0.55-1.30); GLOMERULAR FILTRATION RATE 32.2 (>51); POTASSIUM SERUM 3.9 MEQ/L (3.5-5.1); TOTAL PROTEIN 6.9 GM/DL (6.4-8.2)
[2020-12-24 12:24] VITALS: BP 102/70
--- NOTE | 2020-12-24 17:33 | REP ---
INDICATION: ASCITES The patient has a history of ascites COMPARISON: None. TECHNIQUE: The procedure was performed by HECTOR Alfredo, under the direct supervision of Dr. Galan The risks and benefits of the procedure were explained to the patient and an informed consent was obtained both verbally and written. Directly prior to the start of the procedure a formal time-out was completed in the procedure room. The largest pocket of fluid was localized in the right flank using ultrasound guidance. The skin was prepped and draped in a sterile fashion. Eleven ML of buffered lidocaine was used as a local anesthetic. An 8-Latvian multi side-hole catheter was inserted using trocar technique. FINDINGS: 4200 mL of yellow ascites was removed and discarded. The patient tolerated the procedure well and there were no immediate complications. After the appropriate amount of monitored convalescence, the patient was discharged from the department. IMPRESSION: Ultrasound-guided paracentesis with removal of 4200 mL of yellow ascites. <Electronically signed by Yu Santiago > 12/24/20 1601 <Electronically signed by Heron Galan > 12/24/20 [id number]
== END ==
LOC: M IRPRO 10:34
PROVIDERS: ATTEND Internal Medicine Gastroenterology
DX: K70.31 Alcoholic cirrhosis of liver with ascites (principal)
CPT/HCPCS: 49083; 80048; 80076; 85025; 85610; 85730; P9047

== ENCOUNTER → 2020-12-25 | Outpatient (REF) | payer OTHER ==
[~2020-12-25] MED LIST changes: -SODIUM BICARBONATE 8.4% INJ 50MEQ 50 ML VIAL As Ordered ONE
[2020-12-25 17:16] LABS: FOLLICLE STIMULATING HORMONE 0.5 mIU/mL; THYROID STIMULATING HORMONE 2.2 uIU/ML (0.358-3.740)
== END ==
LOC: M LAB REF 16:04
PROVIDERS: ATTEND Pediatrics
DX: N93.9 Abnormal uterine and vaginal bleeding, unspecified (principal)

== ENCOUNTER → 2020-12-26 | Outpatient (CLI) | payer OTHER ==
[2020-12-26 15:09] LABS: BASO % 0.6 % (0.0-1.0); EOS # 0.1 10^3/uL (0.0-0.5); HEMATOCRIT 27.3 % (36.0-47.0); HEMOGLOBIN 9.2 g/dl (12.0-15.5); LYMPH # 0.7 10^3/uL (1.5-5.0); LYMPH % 10.3 % (24.0-44.0); MEAN CORPUSCULAR HGB CONC 33.7 g/dl (32.0-36.5); MEAN CORPUSCULAR VOLUME 91.9 fl (80.0-96.0); MONO # 0.5 10^3/uL (0.0-0.8); MONO % 7.6 % (2.0-8.0); NEUTROPHILS # 5.5 10^3/uL (1.5-8.5); NEUTROPHILS % 79.5 % (36.0-66.0); PLATELET COUNT, AUTOMATED 110 10^3/uL (150-450); RED BLOOD COUNT 2.97 10^6/uL (4.00-5.40); WHITE BLOOD COUNT 6.9 10^3/uL (4.0-10.0)
[2020-12-26 15:26] LABS: INR 1.84; PROTHROMBIN TIME 21.6 SECONDS (12.5-14.3)
[2020-12-26 15:27] LABS: PARTIAL THROMBOPLASTIN TIME 38.1 SECONDS (24.2-38.5)
[2020-12-26 15:48] LABS: ALBUMIN 3.9 GM/DL (3.2-5.2); CALCIUM LEVEL 8.8 MG/DL (8.5-10.1); CREATININE FOR GFR 1.86 MG/DL (0.55-1.30); GLOMERULAR FILTRATION RATE 29.6 (>51); POTASSIUM SERUM 4.3 MEQ/L (3.5-5.1); TOTAL PROTEIN 6.3 GM/DL (6.4-8.2)
== END ==
LOC: M LAB 14:28
PROVIDERS: ATTEND Internal Medicine Gastroenterology
DX: K70.31 Alcoholic cirrhosis of liver with ascites (principal)

== ENCOUNTER → 2020-12-31 | Outpatient (CLI) | payer OTHER ==
[2020-12-31 11:45] LABS: BASO % 0.4 % (0.0-1.0); EOS # 0.1 10^3/uL (0.0-0.5); EOS % 0.8 % (0.0-3.0); HEMOGLOBIN 9.7 g/dl (12.0-15.5); LYMPH # 0.6 10^3/uL (1.5-5.0); LYMPH % 7.4 % (24.0-44.0); MEAN CORPUSCULAR HEMOGLOBIN 31.4 pg (27.0-33.0); MEAN CORPUSCULAR HGB CONC 34.6 g/dl (32.0-36.5); MEAN CORPUSCULAR VOLUME 90.6 fl (80.0-96.0); MONO # 0.8 10^3/uL (0.0-0.8); MONO % 9.1 % (2.0-8.0); NEUTROPHILS # 6.7 10^3/uL (1.5-8.5); NEUTROPHILS % 81.8 % (36.0-66.0); PLATELET COUNT, AUTOMATED 110 10^3/uL (150-450); RED BLOOD COUNT 3.09 10^6/uL (4.00-5.40); WHITE BLOOD COUNT 8.2 10^3/uL (4.0-10.0)
[2020-12-31 12:02] LABS: INR 1.62; PARTIAL THROMBOPLASTIN TIME 38.1 SECONDS (24.2-38.5); PROTHROMBIN TIME 19.5 SECONDS (12.5-14.3)
[2020-12-31 12:11] LABS: ALBUMIN 3.5 GM/DL (3.2-5.2); BILIRUBIN,DIRECT 1.1 MG/DL (0.0-0.2); BILIRUBIN,TOTAL 2.8 MG/DL (0.2-1.0); CALCIUM LEVEL 8.4 MG/DL (8.5-10.1); CREATININE FOR GFR 1.55 MG/DL (0.55-1.30); GLOMERULAR FILTRATION RATE 36.6 (>51); POTASSIUM SERUM 4.4 MEQ/L (3.5-5.1); TOTAL PROTEIN 6.7 GM/DL (6.4-8.2)
[2020-12-31 12:40] VITALS: BP 107/70
--- NOTE | 2020-12-31 18:42 | REP ---
INDICATION: ALCOHOLIC CIRRHOSIS OF LIVER WITH ASCITES. COMPARISON: None. TECHNIQUE: The procedure was performed under the direct supervision of Dr. Conn. The risks and benefits of the procedure were explained to the patient and informed consent was obtained. The largest pocket of fluid was localized in the right flank using ultrasound guidance. The skin was prepped and draped in a sterile fashion. 1% lidocaine was used as a local anesthetic. Using ultrasound guidance an 8-Amharic multi side-hole catheter was inserted using trocar technique.6000 cc of yellow fluid was withdrawn with a sample sent to the lab for analysis. The patient tolerated the procedure well and there were no immediate complications. After the appropriate amount of monitored convalescence, the patient was discharged from the department. FINDINGS: None IMPRESSION: Ultrasound-guided paracentesis [id number] cc of yellow fluid. <Electronically signed by Nathanael Garduno > 12/31/20 1549 <Electronically signed by James Conn > 12/31/20 [id number]
== END ==
LOC: M IRPRO 10:31
PROVIDERS: ATTEND Internal Medicine Gastroenterology
DX: K70.31 Alcoholic cirrhosis of liver with ascites (principal)
CPT/HCPCS: 49083; 80048; 80076; 85025; 85610; 85730; 87070; 87075; 87205; P9047

== ENCOUNTER → 2021-01-03 | Outpatient (CLI) | payer OTHER ==
[2021-01-03 11:09] LABS: BASO # 0.1 10^3/uL (0.0-0.2); BASO % 0.7 % (0.0-1.0); EOS # 0.1 10^3/uL (0.0-0.5); EOS % 1.3 % (0.0-3.0); HEMATOCRIT 26.9 % (36.0-47.0); HEMOGLOBIN 9.3 g/dl (12.0-15.5); LYMPH # 0.6 10^3/uL (1.5-5.0); LYMPH % 7.7 % (24.0-44.0); MEAN CORPUSCULAR HEMOGLOBIN 31.8 pg (27.0-33.0); MEAN CORPUSCULAR HGB CONC 34.6 g/dl (32.0-36.5); MEAN CORPUSCULAR VOLUME 92.1 fl (80.0-96.0); MONO # 0.9 10^3/uL (0.0-0.8); MONO % 11.6 % (2.0-8.0); NEUTROPHILS % 78.2 % (36.0-66.0); PLATELET COUNT, AUTOMATED 125 10^3/uL (150-450); RED BLOOD COUNT 2.92 10^6/uL (4.00-5.40); WHITE BLOOD COUNT 7.7 10^3/uL (4.0-10.0)
[2021-01-03 11:20] LABS: INR 1.71; PROTHROMBIN TIME 20.4 SECONDS (12.5-14.3)
[2021-01-03 11:21] LABS: PARTIAL THROMBOPLASTIN TIME 38.1 SECONDS (24.2-38.5)
[2021-01-03 11:37] LABS: ALBUMIN 3.8 GM/DL (3.2-5.2); BILIRUBIN,TOTAL 3.2 MG/DL (0.2-1.0); CALCIUM LEVEL 8.7 MG/DL (8.5-10.1); CREATININE FOR GFR 1.51 MG/DL (0.55-1.30); GLOMERULAR FILTRATION RATE 37.7 (>51); MAGNESIUM LEVEL 2.2 MG/DL (1.8-2.4); POTASSIUM SERUM 4.2 MEQ/L (3.5-5.1); TOTAL PROTEIN 6.4 GM/DL (6.4-8.2)
== END ==
LOC: M LAB 10:13
PROVIDERS: ATTEND Internal Medicine Gastroenterology
DX: K70.31 Alcoholic cirrhosis of liver with ascites (principal)

== ENCOUNTER → 2021-01-07 | Outpatient (CLI) | payer OTHER ==
[~2021-01-07] MED LIST changes: +SODIUM BICARBONATE 8.4% INJ 50MEQ 50 ML VIAL As Ordered ONE
[2021-01-07 13:35] LABS: BASO % 0.7 % (0.0-1.0); EOS # 0.1 10^3/uL (0.0-0.5); EOS % 1.1 % (0.0-3.0); HEMATOCRIT 25.8 % (36.0-47.0); HEMOGLOBIN 8.7 g/dl (12.0-15.5); LYMPH # 0.6 10^3/uL (1.5-5.0); LYMPH % 10.3 % (24.0-44.0); MEAN CORPUSCULAR HEMOGLOBIN 30.9 pg (27.0-33.0); MEAN CORPUSCULAR HGB CONC 33.7 g/dl (32.0-36.5); MEAN CORPUSCULAR VOLUME 91.5 fl (80.0-96.0); MONO # 0.7 10^3/uL (0.0-0.8); MONO % 12.5 % (2.0-8.0); NEUTROPHILS # 4.2 10^3/uL (1.5-8.5); NEUTROPHILS % 74.9 % (36.0-66.0); PLATELET COUNT, AUTOMATED 116 10^3/uL (150-450); RED BLOOD COUNT 2.82 10^6/uL (4.00-5.40); WHITE BLOOD COUNT 5.6 10^3/uL (4.0-10.0)
[2021-01-07 13:40] VITALS: BP 106/65
[2021-01-07 13:52] LABS: INR 1.77
[2021-01-07 13:53] LABS: PARTIAL THROMBOPLASTIN TIME 35.6 SECONDS (24.2-38.5)
[2021-01-07 14:00] LABS: ALBUMIN 3.9 GM/DL (3.2-5.2); CALCIUM LEVEL 8.8 MG/DL (8.5-10.1); CREATININE FOR GFR 1.66 MG/DL (0.55-1.30); GLOMERULAR FILTRATION RATE 33.8 (>51); POTASSIUM SERUM 3.9 MEQ/L (3.5-5.1); TOTAL PROTEIN 6.5 GM/DL (6.4-8.2)
--- NOTE | 2021-01-07 18:14 | REP ---
INDICATION: ASCITES The patient has a history of ascites COMPARISON: None. TECHNIQUE: The procedure was performed by HECTOR Alfredo, under the direct supervision of Dr. Galan The risks and benefits of the procedure were explained to the patient and an informed consent was obtained both verbally and written. Directly prior to the start of the procedure a formal time-out was completed in the procedure room. The largest pocket of fluid was localized in the right flank using ultrasound guidance. The skin was prepped and draped in a sterile fashion. Ten ML of buffered lidocaine was used as a local anesthetic. An 8-[place] Citizen multi side-hole catheter was inserted using trocar technique. FINDINGS: 6000 mL of solid yellow ascites was removed and discarded. The patient tolerated the procedure well and there were no immediate complications. After the appropriate amount of monitored convalescence, the patient was discharged from the department. IMPRESSION: Ultrasound-guided paracentesis with removal of 6000 mL of solid yellow ascites. <Electronically signed by Yu Santiago > 01/07/21 1656 <Electronically signed by Heron Galan > 01/07/21 0880
== END ==
LOC: M IRPRO 11:49
PROVIDERS: ATTEND Internal Medicine Gastroenterology
DX: K70.31 Alcoholic cirrhosis of liver with ascites (principal); K74.60 Unspecified cirrhosis of liver
CPT/HCPCS: 36415; 49083; 80048; 80076; 85025; 85610; 85730; 96365; 96366; 96375; P9047

== ENCOUNTER → 2021-01-11 | Outpatient (CLI) | payer OTHER ==
[~2021-01-11] MED LIST changes: -SODIUM BICARBONATE 8.4% INJ 50MEQ 50 ML VIAL As Ordered ONE
[2021-01-11 10:44] LABS: BASO # 0.1 10^3/uL (0.0-0.2); BASO % 0.8 % (0.0-1.0); EOS # 0.2 10^3/uL (0.0-0.5); EOS % 2.7 % (0.0-3.0); HEMATOCRIT 30.1 % (36.0-47.0); HEMOGLOBIN 10.1 g/dl (12.0-15.5); LYMPH # 0.6 10^3/uL (1.5-5.0); LYMPH % 8.6 % (24.0-44.0); MEAN CORPUSCULAR HGB CONC 33.6 g/dl (32.0-36.5); MEAN CORPUSCULAR VOLUME 92.3 fl (80.0-96.0); MONO # 0.7 10^3/uL (0.0-0.8); MONO % 10.8 % (2.0-8.0); NEUTROPHILS # 5.1 10^3/uL (1.5-8.5); NEUTROPHILS % 76.5 % (36.0-66.0); PLATELET COUNT, AUTOMATED 113 10^3/uL (150-450); RED BLOOD COUNT 3.26 10^6/uL (4.00-5.40); WHITE BLOOD COUNT 6.6 10^3/uL (4.0-10.0)
[2021-01-11 10:52] LABS: INR 1.61; PROTHROMBIN TIME 19.5 SECONDS (12.5-14.3)
[2021-01-11 10:53] LABS: PARTIAL THROMBOPLASTIN TIME 37.1 SECONDS (24.2-38.5)
[2021-01-11 11:11] LABS: CREATININE FOR GFR 2.06 MG/DL (0.55-1.30); GLOMERULAR FILTRATION RATE 26.3 (>51); POTASSIUM SERUM 4.6 MEQ/L (3.5-5.1)
[2021-01-11 11:12] LABS: ALBUMIN 3.8 GM/DL (3.2-5.2); BILIRUBIN,TOTAL 2.3 MG/DL (0.2-1.0); TOTAL PROTEIN 6.6 GM/DL (6.4-8.2)
== END ==
LOC: M LAB 09:48
PROVIDERS: ATTEND Internal Medicine Gastroenterology
DX: K70.31 Alcoholic cirrhosis of liver with ascites (principal)

== ENCOUNTER → 2021-01-14 | Outpatient (CLI) | payer OTHER ==
[~2021-01-14] MED LIST changes: +LIDOCAINE 1% MDV 20ML VIAL As Ordered ONE; +SODIUM BICARBONATE 8.4% INJ 50MEQ 50 ML VIAL As Ordered ONE
[2021-01-14 12:42] LABS: BASO % 0.4 % (0.0-1.0); EOS # 0.1 10^3/uL (0.0-0.5); HEMATOCRIT 28.3 % (36.0-47.0); HEMOGLOBIN 9.6 g/dl (12.0-15.5); LYMPH # 0.5 10^3/uL (1.5-5.0); LYMPH % 7.1 % (24.0-44.0); MEAN CORPUSCULAR HEMOGLOBIN 31.2 pg (27.0-33.0); MEAN CORPUSCULAR HGB CONC 33.9 g/dl (32.0-36.5); MEAN CORPUSCULAR VOLUME 91.9 fl (80.0-96.0); MONO # 0.9 10^3/uL (0.0-0.8); MONO % 12.6 % (2.0-8.0); NEUTROPHILS # 5.5 10^3/uL (1.5-8.5); NEUTROPHILS % 78.2 % (36.0-66.0); PLATELET COUNT, AUTOMATED 124 10^3/uL (150-450); RED BLOOD COUNT 3.08 10^6/uL (4.00-5.40)
[2021-01-14 13:00] LABS: ALBUMIN 3.6 GM/DL (3.2-5.2); BILIRUBIN,DIRECT 0.8 MG/DL (0.0-0.2); BILIRUBIN,TOTAL 2.4 MG/DL (0.2-1.0); CALCIUM LEVEL 8.8 MG/DL (8.5-10.1); CREATININE FOR GFR 1.56 MG/DL (0.55-1.30); GLOMERULAR FILTRATION RATE 36.3 (>51); POTASSIUM SERUM 4.8 MEQ/L (3.5-5.1); TOTAL PROTEIN 6.5 GM/DL (6.4-8.2)
[2021-01-14 13:24] VITALS: BP 122/72
[2021-01-14 13:56] LABS: INR 1.97; PROTHROMBIN TIME 22.9 SECONDS (12.5-14.3)
[2021-01-14 13:57] LABS: PARTIAL THROMBOPLASTIN TIME 42.8 SECONDS (24.2-38.5)
--- NOTE | 2021-01-14 19:07 | REP ---
INDICATION: ASCITES US 1ST. COMPARISON: None. TECHNIQUE: The procedure was performed under the direct supervision of Dr. Conn. The risks and benefits of the procedure were explained to the patient and informed consent was obtained. The largest pocket of fluid was localized in the right flank using ultrasound guidance. The skin was prepped and draped in a sterile fashion. 1% lidocaine was used as a local anesthetic. Using ultrasound guidance an 8-Faroese multi side-hole catheter was inserted using trocar technique.3500 cc of yellow fluid was withdrawn and discarded. The patient tolerated the procedure well and there were no immediate complications. After the appropriate amount of monitored convalescence, the patient was discharged from the department. FINDINGS: None IMPRESSION: Ultrasound-guided paracentesis [id number] cc of yellow fluid. <Electronically signed by Nathanael Garduno > 01/14/21 [id number] <Electronically signed by James Conn > 01/14/21 [id number]
== END ==
LOC: M IRPRO 11:12
PROVIDERS: ATTEND Internal Medicine Gastroenterology
DX: K70.31 Alcoholic cirrhosis of liver with ascites (principal)
CPT/HCPCS: 36415; 49083; 80048; 80076; 85025; 85610; 85730; P9047

== ENCOUNTER → 2021-01-14 | Outpatient (CLI) | payer OTHER ==
[~2021-01-14] MED LIST changes: -LIDOCAINE 1% MDV 20ML VIAL As Ordered ONE; -SODIUM BICARBONATE 8.4% INJ 50MEQ 50 ML VIAL As Ordered ONE
--- NOTE | 2021-01-15 10:51 | REP ---
INDICATION: ABN UTERINE / VAGINAL BLEEDING COMPARISON: None. TECHNIQUE: Transabdominal pelvic ultrasound followed by transvaginal examination for better evaluation of the endometrium and adnexa. FINDINGS: Bladder is incompletely evaluated. A significant amount of ascites is noted throughout the visualized abdomen and pelvis. Normal anteverted uterus measures 7.7 x 3.8 x 5.0 cm. The endometrial complex measures 6.2 mm thickness. No discrete uterine or endometrial abnormalities are appreciated. The ovaries are not visualized. IMPRESSION: Significant amount of ascites. Relatively normal appearance to the uterus. Ovaries not visualized. <Electronically signed by Harshal Vaughn > 01/15/21 1046
== END ==
LOC: M RAD 11:08
PROVIDERS: ATTEND Pediatrics
DX: N93.9 Abnormal uterine and vaginal bleeding, unspecified (principal); R18.8 Other ascites

== ENCOUNTER → 2021-01-15 | Outpatient (CLI) | payer OTHER | LOC: M OUTALCOH 10:15 | PROVIDERS: ATTEND Psychiatry & Neurology Psychiatry | DX: Z13.9 Encounter for screening, unspecified (principal) ==

== ENCOUNTER → 2021-01-18 | Outpatient (CLI) | payer OTHER ==
[2021-01-18 12:09] LABS: BASO % 0.5 % (0.0-1.0); EOS # 0.1 10^3/uL (0.0-0.5); EOS % 1.2 % (0.0-3.0); HEMATOCRIT 26.4 % (36.0-47.0); LYMPH # 0.7 10^3/uL (1.5-5.0); LYMPH % 10.2 % (24.0-44.0); MEAN CORPUSCULAR HEMOGLOBIN 30.7 pg (27.0-33.0); MEAN CORPUSCULAR HGB CONC 34.1 g/dl (32.0-36.5); MEAN CORPUSCULAR VOLUME 90.1 fl (80.0-96.0); MONO % 14.1 % (2.0-8.0); NEUTROPHILS # 5.3 10^3/uL (1.5-8.5); NEUTROPHILS % 73.2 % (36.0-66.0); PLATELET COUNT, AUTOMATED 115 10^3/uL (150-450); RED BLOOD COUNT 2.93 10^6/uL (4.00-5.40); WHITE BLOOD COUNT 7.3 10^3/uL (4.0-10.0)
[2021-01-18 12:20] LABS: INR 1.74; PROTHROMBIN TIME 20.7 SECONDS (12.5-14.3)
[2021-01-18 12:21] LABS: PARTIAL THROMBOPLASTIN TIME 39.8 SECONDS (24.2-38.5)
[2021-01-18 12:31] LABS: ALBUMIN 3.5 GM/DL (3.2-5.2); BILIRUBIN,DIRECT 1.1 MG/DL (0.0-0.2); BILIRUBIN,TOTAL 2.7 MG/DL (0.2-1.0); CALCIUM LEVEL 8.5 MG/DL (8.5-10.1); CREATININE FOR GFR 1.7 MG/DL (0.55-1.30); GLOMERULAR FILTRATION RATE 32.7 (>51); POTASSIUM SERUM 3.7 MEQ/L (3.5-5.1); TOTAL PROTEIN 6.2 GM/DL (6.4-8.2)
== END ==
LOC: M LAB 11:11
PROVIDERS: ATTEND Internal Medicine Gastroenterology
DX: K70.31 Alcoholic cirrhosis of liver with ascites (principal)

== ENCOUNTER → 2021-01-21 | Outpatient (CLI) | payer OTHER ==
[2021-01-21 12:13] LABS: BASO # 0.1 10^3/uL (0.0-0.2); BASO % 0.6 % (0.0-1.0); EOS # 0.1 10^3/uL (0.0-0.5); EOS % 0.8 % (0.0-3.0); HEMATOCRIT 28.3 % (36.0-47.0); HEMOGLOBIN 9.7 g/dl (12.0-15.5); LYMPH # 0.7 10^3/uL (1.5-5.0); LYMPH % 7.9 % (24.0-44.0); MEAN CORPUSCULAR HEMOGLOBIN 30.6 pg (27.0-33.0); MEAN CORPUSCULAR HGB CONC 34.3 g/dl (32.0-36.5); MEAN CORPUSCULAR VOLUME 89.3 fl (80.0-96.0); MONO % 11.1 % (2.0-8.0); NEUTROPHILS # 6.9 10^3/uL (1.5-8.5); NEUTROPHILS % 78.9 % (36.0-66.0); PLATELET COUNT, AUTOMATED 133 10^3/uL (150-450); RED BLOOD COUNT 3.17 10^6/uL (4.00-5.40); WHITE BLOOD COUNT 8.7 10^3/uL (4.0-10.0)
[2021-01-21 12:25] LABS: INR 1.65; PROTHROMBIN TIME 19.8 SECONDS (12.5-14.3)
[2021-01-21 12:26] LABS: PARTIAL THROMBOPLASTIN TIME 37.2 SECONDS (24.2-38.5)
[2021-01-21 12:48] LABS: ALBUMIN 3.6 GM/DL (3.2-5.2); BILIRUBIN,DIRECT 1.1 MG/DL (0.0-0.2); BILIRUBIN,TOTAL 3.1 MG/DL (0.2-1.0); CREATININE FOR GFR 1.82 MG/DL (0.55-1.30); GLOMERULAR FILTRATION RATE 30.3 (>51); POTASSIUM SERUM 3.4 MEQ/L (3.5-5.1); TOTAL PROTEIN 6.3 GM/DL (6.4-8.2)
[2021-01-21 13:20] VITALS: BP 104/63
--- NOTE | 2021-01-21 16:30 | REP ---
INDICATION: ASCITES. COMPARISON: None. TECHNIQUE: The procedure was performed under the direct supervision of Dr. Conn. The risks and benefits of the procedure were explained to the patient and informed consent was obtained. The largest pocket of fluid was localized in the right flank using ultrasound guidance. The skin was prepped and draped in a sterile fashion. 1% lidocaine was used as a local anesthetic. Using ultrasound guidance an 8-[place] multi side-hole catheter was inserted using trocar technique.6 L of yellow fluid was withdrawn and discarded. The patient tolerated the procedure well and there were no immediate complications. After the appropriate amount of monitored convalescence, the patient was discharged from the department. FINDINGS: None IMPRESSION: Ultrasound-guided paracentesis yielding6 L of yellow fluid. <Electronically signed by Nathanael Garduno > 01/21/21 1626 <Electronically signed by James Conn > 01/21/21 [id number]
== END ==
LOC: M IRPRO 11:23
PROVIDERS: ATTEND Internal Medicine Gastroenterology
DX: K70.31 Alcoholic cirrhosis of liver with ascites (principal); K74.60 Unspecified cirrhosis of liver
CPT/HCPCS: 49083; 80048; 80076; 85025; 85610; 85730; P9047

== ENCOUNTER → 2021-01-28 | Outpatient (CLI) | payer OTHER ==
[2021-01-28 12:02] LABS: BASO % 0.5 % (0.0-1.0); EOS # 0.1 10^3/uL (0.0-0.5); EOS % 1.2 % (0.0-3.0); HEMATOCRIT 29.3 % (36.0-47.0); HEMOGLOBIN 9.8 g/dl (12.0-15.5); LYMPH # 0.7 10^3/uL (1.5-5.0); LYMPH % 9.7 % (24.0-44.0); MEAN CORPUSCULAR HGB CONC 33.4 g/dl (32.0-36.5); MEAN CORPUSCULAR VOLUME 89.6 fl (80.0-96.0); MONO # 0.4 10^3/uL (0.0-0.8); MONO % 5.9 % (2.0-8.0); NEUTROPHILS % 81.9 % (36.0-66.0); PLATELET COUNT, AUTOMATED 125 10^3/uL (150-450); RED BLOOD COUNT 3.27 10^6/uL (4.00-5.40); WHITE BLOOD COUNT 7.3 10^3/uL (4.0-10.0)
[2021-01-28 12:11] LABS: INR 1.67; PROTHROMBIN TIME 20.1 SECONDS (12.5-14.3)
[2021-01-28 12:29] LABS: ALBUMIN 3.6 GM/DL (3.2-5.2); BILIRUBIN,DIRECT 1.4 MG/DL (0.0-0.2); BILIRUBIN,TOTAL 3.3 MG/DL (0.2-1.0); CALCIUM LEVEL 9.3 MG/DL (8.5-10.1); CREATININE FOR GFR 2.1 MG/DL (0.55-1.30); GLOMERULAR FILTRATION RATE 25.7 (>51); POTASSIUM SERUM 3.6 MEQ/L (3.5-5.1); TOTAL PROTEIN 6.8 GM/DL (6.4-8.2)
[2021-01-28 12:50] VITALS: BP 114/57
--- NOTE | 2021-01-29 06:55 | REP ---
INDICATION: ASCITES. COMPARISON: None. TECHNIQUE: The procedure was performed under the direct supervision of Dr. Galan. The risks and benefits of the procedure were explained to the patient and informed consent was obtained. The largest pocket of fluid was localized in the right lower quadrant using ultrasound guidance. The skin was prepped and draped in a sterile fashion. 1% lidocaine was used as a local anesthetic. Using ultrasound guidance an 8-Polish multi side-hole catheter was inserted using trocar technique.6000 cc of yellow fluid was withdrawn and discarded. The patient tolerated the procedure well and there were no immediate complications. After the appropriate amount of monitored convalescence, the patient was discharged from the department. FINDINGS: None IMPRESSION: Ultrasound-guided paracentesis [id number] cc of yellow fluid. <Electronically signed by Nathanael Garduno > 01/28/21 1551 <Electronically signed by Heron Galan > 01/29/21 0654
== END ==
LOC: M IRPRO 11:21
PROVIDERS: ATTEND Internal Medicine Gastroenterology
DX: K70.31 Alcoholic cirrhosis of liver with ascites (principal); K74.60 Unspecified cirrhosis of liver
CPT/HCPCS: 32555; 80048; 80076; 85025; 85610; 85730; P9047

== ENCOUNTER → 2021-02-04 | Outpatient (CLI) | payer OTHER ==
[~2021-02-04] MED LIST changes: +SODIUM BICARBONATE 8.4% INJ 50MEQ 50 ML VIAL As Ordered ONE
[2021-02-04 11:53] LABS: BASO % 0.5 % (0.0-1.0); EOS # 0.1 10^3/uL (0.0-0.5); EOS % 0.8 % (0.0-3.0); HEMATOCRIT 29.4 % (36.0-47.0); LYMPH # 0.4 10^3/uL (1.5-5.0); LYMPH % 5.5 % (24.0-44.0); MEAN CORPUSCULAR HEMOGLOBIN 30.9 pg (27.0-33.0); MEAN CORPUSCULAR VOLUME 90.7 fl (80.0-96.0); MONO # 0.6 10^3/uL (0.0-0.8); MONO % 7.6 % (2.0-8.0); NEUTROPHILS # 6.4 10^3/uL (1.5-8.5); NEUTROPHILS % 85.1 % (36.0-66.0); PLATELET COUNT, AUTOMATED 109 10^3/uL (150-450); RED BLOOD COUNT 3.24 10^6/uL (4.00-5.40); WHITE BLOOD COUNT 7.5 10^3/uL (4.0-10.0)
[2021-02-04 12:04] LABS: INR 1.77
[2021-02-04 12:05] LABS: PARTIAL THROMBOPLASTIN TIME 37.6 SECONDS (24.2-38.5)
[2021-02-04 12:39] LABS: ALBUMIN 3.6 GM/DL (3.2-5.2); BILIRUBIN,DIRECT 1.2 MG/DL (0.0-0.2); BILIRUBIN,TOTAL 3.5 MG/DL (0.2-1.0); CREATININE FOR GFR 1.75 MG/DL (0.55-1.30); GLOMERULAR FILTRATION RATE 31.7 (>51); POTASSIUM SERUM 3.8 MEQ/L (3.5-5.1); TOTAL PROTEIN 6.8 GM/DL (6.4-8.2)
[2021-02-04 13:00] VITALS: BP 103/66
--- NOTE | 2021-02-04 17:23 | REP ---
INDICATION: ASCITES The patient has a history of ascites COMPARISON: None. TECHNIQUE: The procedure was performed by HECTOR Alfredo, under the direct supervision of Dr. Galan The risks and benefits of the procedure were explained to the patient and an informed consent was obtained both verbally and written. Directly prior to the start of the procedure a formal time-out was completed in the procedure room. The largest pocket of fluid was localized in the left flank using ultrasound guidance. The skin was prepped and draped in a sterile fashion. Eleven ML of buffered lidocaine was used as a local anesthetic. An 8-Tajik multi side-hole catheter was inserted using trocar technique. FINDINGS: 3600 mL of dark yellow ascites was removed and discarded. The patient tolerated the procedure well and there were no immediate complications. After the appropriate amount of monitored convalescence, the patient was discharged from the department. IMPRESSION: Ultrasound-guided paracentesis with removal of 3600 mL of ascites. <Electronically signed by Yu Santiago > 02/04/21 1503 <Electronically signed by Heron Galan > 02/04/21 7070
== END ==
LOC: M IRPRO 10:58
PROVIDERS: ATTEND Internal Medicine Gastroenterology
DX: K70.31 Alcoholic cirrhosis of liver with ascites (principal)
CPT/HCPCS: 49083; 80048; 80076; 85025; 85610; 85730; P9047

== ENCOUNTER → 2021-02-05 | Outpatient (CLI) | payer OTHER ==
[2021-02-05 15:24] VITALS: BP 97/63
--- NOTE | 2021-02-05 17:57 | REP ---
INDICATION: ACITES The patient has a history of ascites COMPARISON: None. TECHNIQUE: The procedure was performed by HECTOR Aflredo, under the direct supervision of Dr. Galan The risks and benefits of the procedure were explained to the patient and an informed consent was obtained both verbally and written. Directly prior to the start of the procedure a formal time-out was completed in the procedure room. The largest pocket of fluid was localized in the right flank using ultrasound guidance. The skin was prepped and draped in a sterile fashion. Eleven ML of buffered lidocaine was used as a local anesthetic. An 8-Yemeni multi side-hole catheter was inserted using trocar technique. FINDINGS: 4050 mL of solid yellow ascites was removed and discarded. The patient tolerated the procedure well and there were no immediate complications. After the appropriate amount of monitored convalescence, the patient was discharged from the department. IMPRESSION: Ultrasound-guided paracentesis with removal of 4050 mL of ascites. <Electronically signed by Yu Santiago > 02/05/21 1528 <Electronically signed by Heron Galan > 02/05/21 9229
== END ==
LOC: M IRPRO 13:36
PROVIDERS: ATTEND Internal Medicine Gastroenterology
DX: R18.8 Other ascites (principal)

== ENCOUNTER 2021-02-07 10:00 | Outpatient (RCR) | payer OTHER ==
[~2021-02-07 10:00] MED LIST changes: -SODIUM BICARBONATE 8.4% INJ 50MEQ 50 ML VIAL As Ordered ONE
== END 2021-02-08 ==
LOC: M OUTALCOH 10:00
PROVIDERS: ATTEND Psychiatry & Neurology Psychiatry
DX: F10.20 Alcohol dependence, uncomplicated (principal); F17.200 Nicotine dependence, unspecified, uncomplicated

== ENCOUNTER → 2021-02-08 | Outpatient (CLI) | payer OTHER ==
[2021-02-08 10:38] LABS: BASO % 0.5 % (0.0-1.0); EOS # 0.1 10^3/uL (0.0-0.5); EOS % 0.9 % (0.0-3.0); HEMATOCRIT 30.3 % (36.0-47.0); HEMOGLOBIN 10.4 g/dl (12.0-15.5); LYMPH # 0.7 10^3/uL (1.5-5.0); LYMPH % 10.2 % (24.0-44.0); MEAN CORPUSCULAR HEMOGLOBIN 30.3 pg (27.0-33.0); MEAN CORPUSCULAR HGB CONC 34.3 g/dl (32.0-36.5); MEAN CORPUSCULAR VOLUME 88.3 fl (80.0-96.0); MONO # 0.6 10^3/uL (0.0-0.8); NEUTROPHILS # 5.1 10^3/uL (1.5-8.5); NEUTROPHILS % 78.8 % (36.0-66.0); PLATELET COUNT, AUTOMATED 102 10^3/uL (150-450); RED BLOOD COUNT 3.43 10^6/uL (4.00-5.40); WHITE BLOOD COUNT 6.5 10^3/uL (4.0-10.0)
[2021-02-08 10:48] LABS: INR 1.69; PROTHROMBIN TIME 20.3 SECONDS (12.5-14.3)
[2021-02-08 11:03] LABS: ALBUMIN 3.7 GM/DL (3.2-5.2); BILIRUBIN,DIRECT 1.3 MG/DL (0.0-0.2); BILIRUBIN,TOTAL 3.5 MG/DL (0.2-1.0); CALCIUM LEVEL 8.8 MG/DL (8.5-10.1); CREATININE FOR GFR 1.71 MG/DL (0.55-1.30); GLOMERULAR FILTRATION RATE 32.5 (>51); POTASSIUM SERUM 3.8 MEQ/L (3.5-5.1); TOTAL PROTEIN 6.7 GM/DL (6.4-8.2)
== END ==
LOC: M LAB 09:46
PROVIDERS: ATTEND Internal Medicine Gastroenterology
DX: K74.60 Unspecified cirrhosis of liver (principal)

== ENCOUNTER → 2021-02-11 | Outpatient (CLI) | payer OTHER ==
[2021-02-11 12:07] LABS: BASO # 0.1 10^3/uL (0.0-0.2); BASO % 0.7 % (0.0-1.0); EOS # 0.1 10^3/uL (0.0-0.5); EOS % 1.3 % (0.0-3.0); HEMATOCRIT 30.8 % (36.0-47.0); HEMOGLOBIN 10.6 g/dl (12.0-15.5); LYMPH # 0.6 10^3/uL (1.5-5.0); LYMPH % 7.9 % (24.0-44.0); MEAN CORPUSCULAR HEMOGLOBIN 30.5 pg (27.0-33.0); MEAN CORPUSCULAR HGB CONC 34.4 g/dl (32.0-36.5); MEAN CORPUSCULAR VOLUME 88.5 fl (80.0-96.0); MONO % 13.3 % (2.0-8.0); NEUTROPHILS # 5.8 10^3/uL (1.5-8.5); PLATELET COUNT, AUTOMATED 128 10^3/uL (150-450); RED BLOOD COUNT 3.48 10^6/uL (4.00-5.40); WHITE BLOOD COUNT 7.6 10^3/uL (4.0-10.0)
[2021-02-11 12:22] LABS: INR 1.67; PROTHROMBIN TIME 20.1 SECONDS (12.5-14.3)
[2021-02-11 12:23] LABS: PARTIAL THROMBOPLASTIN TIME 39.7 SECONDS (24.2-38.5)
[2021-02-11 12:39] LABS: ALBUMIN 3.4 GM/DL (3.2-5.2); BILIRUBIN,DIRECT 1.2 MG/DL (0.0-0.2); BILIRUBIN,TOTAL 2.8 MG/DL (0.2-1.0); CREATININE FOR GFR 1.86 MG/DL (0.55-1.30); GLOMERULAR FILTRATION RATE 29.5 (>51); POTASSIUM SERUM 3.4 MEQ/L (3.5-5.1); TOTAL PROTEIN 6.9 GM/DL (6.4-8.2)
[2021-02-11 12:40] VITALS: BP 123/79
--- NOTE | 2021-02-11 16:22 | REP ---
INDICATION: ASCITES. COMPARISON: None. TECHNIQUE: The procedure was performed under the direct supervision of Dr. Conn. The risks and benefits of the procedure were explained to the patient and informed consent was obtained. The largest pocket of fluid was localized in the right flank using ultrasound guidance. The skin was prepped and draped in a sterile fashion. 1% lidocaine was used as a local anesthetic. Using ultrasound guidance an 8-North Korean multi side-hole catheter was inserted using trocar technique.4000 cc of yellow fluid was withdrawn and discarded. The patient tolerated the procedure well and there were no immediate complications. After the appropriate amount of monitored convalescence, the patient was discharged from the department. FINDINGS: None IMPRESSION: Ultrasound-guided paracentesis [id number] cc of yellow fluid. <Electronically signed by Nathanael Garduno > 02/11/21 2597 <Electronically signed by James Conn > 02/11/21 9970
== END ==
LOC: M IRPRO 11:29
PROVIDERS: ATTEND Internal Medicine Gastroenterology
DX: K70.31 Alcoholic cirrhosis of liver with ascites (principal); K74.60 Unspecified cirrhosis of liver
CPT/HCPCS: 49083; 80048; 80076; 85025; 85610; 85730; P9047

== ENCOUNTER 2021-02-22 11:18 | Inpatient (IN) | payer OTHER ==
[~2021-02-22] VITALS: Ht 147.3 cm; Wt 57.1 kg
[2021-02-22] MEDS ORDERED: NS 1,000 ML IV SCH (12:00)
[2021-02-22 12:28] LABS: BASO # 0.1 10^3/uL (0.0-0.2); BASO % 0.8 % (0.0-1.0); EOS # 0.2 10^3/uL (0.0-0.5); EOS % 2.5 % (0.0-3.0); HEMATOCRIT 28.1 % (36.0-47.0); HEMOGLOBIN 9.6 g/dl (12.0-15.5); LYMPH # 0.6 10^3/uL (1.5-5.0); MEAN CORPUSCULAR HEMOGLOBIN 30.6 pg (27.0-33.0); MEAN CORPUSCULAR HGB CONC 34.2 g/dl (32.0-36.5); MEAN CORPUSCULAR VOLUME 89.5 fl (80.0-96.0); MONO # 0.8 10^3/uL (0.0-0.8); MONO % 13.1 % (2.0-8.0); NEUTROPHILS # 4.7 10^3/uL (1.5-8.5); NEUTROPHILS % 73.8 % (36.0-66.0); RED BLOOD COUNT 3.14 10^6/uL (4.00-5.40); WHITE BLOOD COUNT 6.4 10^3/uL (4.0-10.0)
[2021-02-22 12:29] LABS: PLATELET COUNT, AUTOMATED 82 10^3/uL (150-450)
[2021-02-22 12:39] LABS: INR 1.65; PARTIAL THROMBOPLASTIN TIME 38.3 SECONDS (24.2-38.5); PROTHROMBIN TIME 19.9 SECONDS (12.5-14.3)
[2021-02-22 12:58] LABS: ALBUMIN 3.4 GM/DL (3.2-5.2); BILIRUBIN,TOTAL 2.3 MG/DL (0.2-1.0); CALCIUM LEVEL 8.7 MG/DL (8.5-10.1); CREATININE FOR GFR 1.68 MG/DL (0.55-1.30); GLOMERULAR FILTRATION RATE 33.2 (>51); POTASSIUM SERUM 3.9 MEQ/L (3.5-5.1); TOTAL PROTEIN 6.1 GM/DL (6.4-8.2)
[2021-02-22] MEDS: NS 1,000 ML IV SCH ×2 (13:32→18:23)
--- NOTE | 2021-02-22 14:19 | REP ---
INDICATION: abd pain COMPARISON: 11/17/2020. TECHNIQUE: CT Scan of the abdomen and pelvis was performed without intravenous contrast. Sagittal and coronal reconstruction images performed. FINDINGS: Lung bases: Unremarkable. Liver: The liver has a cirrhotic appearance. Gallbladder: There are small gallstones in the fundus of the gallbladder. Spleen: The spleen is mildly enlarged with a length of 13.5 cm. Adrenals: Left adrenal gland is thickened and contains a coarse calcification, unchanged in appearance. Right adrenal gland is unremarkable. Pancreas: Grossly unremarkable.. Kidneys: No hydronephrosis or nephrolithiasis. Ureters demonstrate no dilatation or calculus. Small and large bowel: Grossly unremarkable. No free air or obstruction. Free fluid: Moderate diffuse abdominal and pelvic ascites is essentially unchanged. Fluid extends into an umbilical hernia. Abdominal aorta: No aneurysm. Adenopathy: None. Appendix: Not inflamed. Osseous structures: There are multiple compression deformities of the visualized spine unchanged with degenerative changes. Pelvis: No mass. No bladder calculus seen. IMPRESSION: Moderate diffuse abdominal and pelvic ascites similar to the prior study. No free air or obstruction. Cirrhosis, mild splenomegaly and small gallstones seen in the gallbladder. <Electronically signed by James Conn > 02/22/21 7204
[2021-02-22] MEDS ORDERED: GABA-282 PO (15:14)
[2021-02-22] MEDS ORDERED: CIPR500T39 PO (15:14)
[2021-02-22] MEDS ORDERED: MIDO10TA PO (15:14)
[2021-02-22] MEDS ORDERED: SERT50TA29 PO (15:14)
[2021-02-22 17:18] VITALS: BP 117/57
--- NOTE | 2021-02-22 17:25 | REP ---
INDICATION: ASCITES The patient has a history of ascites COMPARISON: None. TECHNIQUE: The procedure was performed by HECTOR Alfredo, under the direct supervision of Dr. Conn The risks and benefits of the procedure were explained to the patient and an informed consent was obtained both verbally and written. Directly prior to the start of the procedure a formal time-out was completed in the procedure room. The largest pocket of fluid was localized in the right flank using ultrasound guidance. The skin was prepped and draped in a sterile fashion. Eleven ML of buffered lidocaine was used as a local anesthetic. An 8-Setswana multi side-hole catheter was inserted using trocar technique. FINDINGS: 4400 mL of yellow ascites was removed and discarded. The patient tolerated the procedure well and there were no immediate complications. After the appropriate amount of monitored convalescence, the patient was discharged from the department. IMPRESSION: Ultrasound-guided paracentesis with removal of 4400 mL of yellow ascites. <Electronically signed by Yu Santiago > 02/22/21 1635 <Electronically signed by James Conn > 02/22/21 [id number]
[2021-02-22] MEDS: LACTULOSE 20 GM/30 ML SYRUP UD PO SCH ×2 (17:44→20:52)
[2021-02-22] MEDS: METOCLOPRAMIDE INJ 10MG/2ML VIAL (J2765 PER 1) IV SCH (17:44)
[2021-02-22] MEDS: MIDODRINE 5 MG TAB PO SCH (17:44)
[2021-02-22] MEDS: ONDANSETRON 4MG/2ML VIAL IV SCH ×2 (17:45→23:00)
--- NOTE | 2021-02-22 19:02 | HPEPDOC ---
[facility] Medical History & Physical Date of Admission February 22, 2021 Date of Service: February 22, 2021 History and Physical CHIEF COMPLAINT: Intractable nausea, vomiting, abdominal distention HISTORY OF PRESENT ILLNESS: 61-year-old female with history of alcoholic liver cirrhosis, last drink was a year ago, chronic kidney disease stage III, recurrent ascites, portal hypertension, adequate candidate for TIPS procedure awaiting liver transplant at [facility] in [place] with prior admission and discharge 11/23/2020 to [facility] with hepatorenal syndrome requiring Levophed drip and expecting dialysis presents to the emergency room today with complaints of intractable nausea, vomiting at home, un able to keep her lactulose down with increasing abdominal distention, slight weight gain and persistent abdominal pain which is diffuse. She denies any fever bright red blood per rectum, melena, black tarry stools, confusion, headache, changes in vision. No recent nonsteroidal anti-inflammatory use. In the emergency room she was found to have decompensated liver cirrhosis with significant ascites sent for paracentesis with 4.4 L removed . Hospitalist was asked to admit the patient for recurrent ascites and intractable nausea, vomiting, unable to keep her lactulose down with elevated ammonia level. PAST MEDICAL HISTORY: Type I hepatorenal syndrome, alcoholic liver cirrhosis with recurrent ascites, portal hypertension, chronic hyponatremia secondary to liver cirrhosis reducible nonincarcerated umbilical hernia, chronic thrombocytopenia, coagulopathy due to decompensated liver cirrhosis, anemia of chronic disease, hypotension requiring Levophed drip during previous admission in November 2020 PAST SURGICAL HISTORY: Multiple paracentesis SOCIAL HISTORY: Last drink was one year ago. Prior smoker, more than a pack a day for 20 years, quit several months ago. Lives in the area GI locally is Dr. valenzuela FAMILY HISTORY: Father CAD. Maternal uncle, cancer ALLERGIES: Please see below. REVIEW OF SYSTEMS: 10 point review of systems negative aside from positive findings in HPI HOME MEDICATIONS: Please see below. PHYSICAL EXAMINATION: VITAL SIGNS: See below GENERAL APPEARANCE: Anicteric, no jaundice, emaciated, darkened skin color appears older than her stated age, disheveled HEENT: Dry mucous membranes cachectic bitemporal wasting. No JVD, thyromegaly or cervical lymphadenopathy CARDIOVASCULAR: S1, S2, regular rate and rhythm. No murmurs, rubs or gallops LUNGS: Diminished but clear to auscultation. No wheezing, rales or rhonchi ABDOMEN: Distended, positive fluid wave, positive bowel sounds 4 quadrants. No rebound, no guarding EXTREMITIES: 1-2+ pitting edema bilateral lower extremities NEUROLOGICAL: Awake, alert, oriented times answering questions appropriately. F sally is symmetric. Tongue is midline. Speech is fluent. No dysmetria on finger to nose testing. Gait was not tested. Motor function is 5 out of 54 extremities. No sensory disturbance. Negative Babinski bilaterally LABORATORY DATA: See below. IMAGING: See below MICROBIOLOGY: Please see below. ASSESSMENT: 61-year-old female with history of alcoholic liver cirrhosis, last drink was a year ago, recurrent ascites, portal hypertension, adequate candidate for TIPS procedure awaiting liver transplant at [facility] in [place] with prior admission and discharge 11/23/2020 to [facility] with hepatorenal syndrome requiring Levophed drip and expecting dialysis presents to the emergency room today with complaints of intractable nausea, vomiting at home, unable to keep her lactulose down with increasing abdominal distention, slight weight gain and persistent abdominal pain which is diffuse. She denies any fever bright red blood per rectum, melena, black tarry stools, confusion, headache, changes in vision. No recent nonsteroidal anti-inflammatory use. In the emergency room she was found to have decompensated liver cirrhosis with significant ascites sent for paracentesis with 4.4 L removed . Hospitalist was asked to admit the patient for recurrent ascites and intractable nausea, vomiting, unable to keep her lactulose down with elevated ammonia level. Decompensated alcoholic liver cirrhosis with recurrent ascites status post paracentesis today with 4.4 L removed Thrombocytopenia and coagulopathy secondary to end-stage alcoholic liver cirrhosis Chronic kidney disease stage III at baseline Anemia of chronic disease Alcohol abuse Portal hypertension History of hepatorenal syndrome Alcoholic hepatitis with elevated bilirubin Acute hepatic encephalopathy with elevated ammonia level Plan: Patient will be admitted as an inpatient for 2 midnights. Status post paracentesis today. Rifaximin twice a day, lactulose until my note level and confusion improves, albumin 1 g/kg every 6 hourly over the next 2 days. Monitor I's and O's, daily weights, fluid restriction. Supportive care. No signs of active GI bleed. , Prednisone 40 mg daily and monitor patient's bilirubin. compression stockings for DVT prophylaxis. Vital Signs Vital Signs Date Time Temp Pulse Resp B/P (MAP) Pulse Ox O2 Delivery O2 Flow Rate FiO2 02/22/21 17:18 96.9 76 18 117/57 (77) 100 Room Air Laboratory Data Labs 24H Laboratory Tests 2 02/22/21 12:00: Immature Granulocyte % (Auto) 0.8, Neutrophils (%) (Auto) 73.8H, Lymphocytes (%) (Auto) 9.0L, Monocytes (%) (Auto) 13.1H, Eosinophils (%) (Auto) 2.5, Basophils (%) (Auto) 0.8, Neutrophils # (Auto) 4.7, Lymphocytes # (Auto) 0.6L, Monocytes # (Auto) 0.8, Eosinophils # (Auto) 0.2, Basophils # (Auto) 0.1, Nucleated Red Blood Cells % (auto) 0.0, Immature Platelet Fraction 1.4, Prothrombin Time 19.9H, Prothromb Time International Ratio 1.65, Activated Partial Thromboplast Time 38.3, Anion Gap 9, Glomerular Filtration Rate 33.2L, Calcium Level 8.7, Total Bilirubin 2.3H, Direct Bilirubin 1.0H, Aspartate Amino Transf (AST/SGOT) 56H, Alanine Aminotransferase (ALT/SGPT) 28, Alkaline Phosphatase 130H, Ammonia 90H, Lactate Dehydrogenase 204, Total Protein 6.1L, Albumin 3.4, Albumin/Globulin Ratio 1.3, Lipase 1105H CBC/BMP Laboratory Tests 02/22/21 12:00 Microbiology Microbiology 02/22/21 Respiratory Virus Panel (PCR) (JENNIFER) - Final, Complete Home Medications Scheduled Ciprofloxacin HCl (Ciprofloxacin HCl) 500 Mg Tablet, 500 MG PO DAILY TAKE AFTER LUNCH Folic Acid (Folic Acid) 1 Mg Tablet, 1 MG PO DAILY TAKES AFTER LUNCH Gabapentin (Gabapentin) 300 Mg Capsule, 300 MG PO QAM Gabapentin (Gabapentin) 300 Mg Capsule, 600 MG PO QHS Lactulose (Lactulose) 10 Gm/15 Ml Solution, 15 ML PO TID Midodrine HCl (Midodrine HCl) 10 Mg Tablet, 10 MG PO TID Pantoprazole Sodium (Pantoprazole Sodium) 40 Mg Tablet.dr, 40 MG PO DAILY Sertraline HCl (Sertraline HCl) 50 Mg Tablet, 50 MG PO DAILY Thiamine HCl (Thiamine HCl) 100 Mg Tablet, 100 MG PO DAILY Trazodone HCl (Trazodone HCl) 50 Mg Tablet, 50 MG PO QHS Allergies Coded Allergies: No Known Allergies (Unverified , 03/28/20) A-FIB/CHADSVASC A-FIB History Current/History of A-Fib/PAF?: No Current PO Anticoag Therapy: No Age/Risk Factor Scoring CHADSVASC: CHADSVASC Response (Comments) Value Age Risk Factor Age < 65 years old 0 Gender Risk Factor Female 1 Hx of CHF No 0 Hx of HTN No 0 Hx of Stroke/TIA/or VTE No 0 Hx of Diabetes No 0 Hx of Vascular Disease No 0 Total 1 Treatment Treatment ordered: NONE HANK FONTANA MD February 22, 2021 19:02
[2021-02-22] MEDS ORDERED: predniSONE 20 MG TAB PO ONE (20:00)
[2021-02-22 20:38] VITALS: BP 106/69
[2021-02-22 22:00] VITALS: BP 111/59
[2021-02-22 22:35] VITALS: BP 92/58
[2021-02-22] MEDS: FUROSEMIDE 40MG/4ML VIAL (J1940) IV SCH (23:00)
[2021-02-22] MEDS: traZODone 50 MG TAB PO SCH (23:00)
[2021-02-22] MEDS: PANTOPRAZOLE 40MG VIAL (C9113 PER 1) IV SCH (23:00)
[2021-02-23] MEDS: METOCLOPRAMIDE INJ 10MG/2ML VIAL (J2765 PER 1) IV SCH ×5 (00:25→21:15)
[2021-02-23] MEDS: LACTULOSE 20 GM/30 ML SYRUP UD PO SCH ×5 (00:25→13:13)
[2021-02-23] MEDS: NS 1,000 ML IV SCH (02:54)
[2021-02-23] MEDS: ONDANSETRON 4MG/2ML VIAL IV SCH (03:00)
[2021-02-23 03:08] VITALS: BP 96/63
[2021-02-23 04:57] VITALS: BP 95/54
[2021-02-23 06:34] LABS: HEMOGLOBIN 9.1 g/dl (12.0-15.5); MEAN CORPUSCULAR HGB CONC 33.7 g/dl (32.0-36.5); MEAN CORPUSCULAR VOLUME 89.1 fl (80.0-96.0); RED BLOOD COUNT 3.03 10^6/uL (4.00-5.40); WHITE BLOOD COUNT 4.3 10^3/uL (4.0-10.0)
[2021-02-23 06:40] LABS: PLATELET COUNT, AUTOMATED 81 10^3/uL (150-450)
[2021-02-23 07:08] LABS: ALBUMIN 3.5 GM/DL (3.2-5.2); BILIRUBIN,TOTAL 2.9 MG/DL (0.2-1.0); CALCIUM LEVEL 8.4 MG/DL (8.5-10.1); CREATININE FOR GFR 1.45 MG/DL (0.55-1.30); GLOMERULAR FILTRATION RATE 39.3 (>51); POTASSIUM SERUM 3.4 MEQ/L (3.5-5.1); TOTAL PROTEIN 6.2 GM/DL (6.4-8.2)
[2021-02-23] MEDS ORDERED: ONDANSETRON 4MG/2ML VIAL IV PRN (08:00)
[2021-02-23 08:13] LABS: LYMPHOCYTES 3 % (16-44); NEUTROPHILS 95 % (28-66)
[2021-02-23 08:15] LABS: OVALOCYTES 1+
[2021-02-23 08:16] LABS: SCHISTOCYTES 2+
[2021-02-23 08:17] LABS: PLATELET ESTIMATE DECREASED (NORMAL)
[2021-02-23] MEDS ORDERED: POTASSIUM CHLORIDE 10 MEQ SR TABLET PO ONE (09:00)
[2021-02-23] MEDS: FUROSEMIDE 40MG/4ML VIAL (J1940) IV SCH ×2 (09:35→16:41)
[2021-02-23] MEDS: SODIUM BICARBONATE 325 MG TAB PO SCH ×2 (09:36→21:15)
[2021-02-23] MEDS: THIAMINE 100 MG TAB PO SCH (09:36)
[2021-02-23] MEDS: MIDODRINE 5 MG TAB PO SCH ×3 (09:36→16:41)
[2021-02-23] MEDS: GABAPENTIN 300 MG CAP PO SCH (09:36)
[2021-02-23] MEDS: SERTRALINE HCL 50 MG TAB PO SCH (09:36)
[2021-02-23] MEDS: predniSONE 20 MG TAB PO SCH (09:36)
[2021-02-23] MEDS: PANTOPRAZOLE 40MG VIAL (C9113 PER 1) IV SCH ×2 (09:36→21:15)
--- NOTE | 2021-02-23 09:48 | IPN ---
PROGRESS NOTE DATE: 02/23/2021 SUBJECTIVE: Patient complains of generalized weakness. No nausea or vomiting and has been comfortable overnight. She has received albumin infusions and is status post paracentesis with 4.4 liters removed. She denies any abdominal distention, nausea, vomiting. Tolerating her diet well. Complains of generalized weakness and fatigue without fever or chills. She is maintaining her saturations well despite low blood pressure of 95/54. Patient denies any lightheadedness, dizziness or near syncopal episodes. OBJECTIVE: Vital signs: Temperature 97.6, pulse 113, respiratory rate 18, blood pressure 95/54, 100% on room air. General: Patient is cachectic, hyperpigmented skin. No pallor, icterus, jaundice. No use of respiratory accessory muscles. HEENT: Dry mucous membranes. Neck: No JVD, thyromegaly. Lungs: Diminished, but clear to auscultation without wheezing. Heart: S1 and S2 sinus tachycardia. Abdomen: Soft, nontender, nondistended, positive bowel sounds. Extremities: 1+ pitting edema bilaterally, LABORATORY DATA: CBC and metabolic panel have been reviewed, notable for anemia, hemoglobin 9.1, hematocrit 27. Potassium 3.4, creatinine 1.45 from previous creatinine of 1.68. IMAGING STUDIES: Paracentesis 02/22/2021: 4.4 liters fluid removed. ASSESSMENT: This is a 61-year-old with decompensated alcoholic liver cirrhosis with portal hypertension, last drink was a year ago, chronic kidney disease stage 3, prior type 1 hepatorenal syndrome, chronic hyponatremia, reducible non-incarcerated umbilical hernia, coagulopathy due to decompensated liver cirrhosis, anemia of chronic disease and hypotension secondary to third spacing previously required Levophed and currently on midodrine admitted due to intractable nausea, vomiting, abdominal distention found to have decompensated alcoholic liver cirrhosis with recurrent ascites status post paracentesis on 02/22/2021 with 4.4 liters removed. ACTIVE ISSUES: 1. Decompensated alcoholic liver cirrhosis with recurrent ascites status post paracentesis 02/22/2021 with 4.4 liters of ascites removed. No signs of SBP. 2. Acute hepatic encephalopathy with elevated ammonia level improving on lactulose. 3. Intractable nausea, vomiting due to significant amount of ascites improved on antiemetics and paracentesis. 4. Thrombocytopenia and coagulopathy secondary to end-stage alcoholic liver cirrhosis. 5. Chronic kidney disease stage 3 at baseline. 6. Anemia of chronic disease. 7. History of alcohol abuse. 8. Portal hypertension. 9. History of hepatorenal syndrome type 1. 10. Alcoholic hepatitis with elevated bilirubin. 11. Hypokalemia. 12. Metabolic acidosis. PLAN: Patient is maintained on full supportive care. She has received 2 units of 25% albumin given yesterday q6h, status post 4.4 liters removed. She is to have albumin 1 gm/kg q6h over the next 2 days. Lactulose is given until patient's mentation is back to baseline and ammonia level is normal. She is on rifaximin and was previously on prophylactic ciprofloxacin for intra-abdominal ascites. Started on prednisone yesterday and PPI. Compression stockings for DVT prophylaxis. No active signs of GI bleed, fever or chills. MTDD
[2021-02-23 10:15] VITALS: BP 114/78
[2021-02-23 12:12] VITALS: BP 116/80
[2021-02-23] MEDS ORDERED: CIPROFLOXACIN 500MG TABLET PO SCH (13:00)
[2021-02-23] MEDS ORDERED: FOLIC ACID 1 MG TAB PO SCH (13:00)
--- NOTE | 2021-02-23 13:42 | ECGEPIP ---
[facility] - ED Test Date: 2021-02-22 Pat Name: SANA LE Department: Room: - Gender: Female Worm Sorter: kimberly : 1960 Requested By: Marium Gaines Order Number: [id number] Reading MD: Marium Gaines Measurements Intervals [place] Rate: 78 P: 35 TN: 180 QRS: -16 QRSD: 88 T: 29 QT: 422 QTc: 481 Interpretive Statements Normal sinus rhythm Possible Anterior infarct , age undetermined possible old inferior infarct increased rate 11/17/20 Electronically Signed on 02-23-2021 13:42:22 EDT by Marium Gaines
[2021-02-23 14:00] VITALS: BP 107/67
[2021-02-23] MEDS: traZODone 50 MG TAB PO SCH (21:15)
[2021-02-23 22:00] VITALS: BP 106/59
[2021-02-24 06:00] VITALS: BP 119/64
[2021-02-24 06:09] LABS: BASO % 0.1 % (0.0-1.0); HEMATOCRIT 27.1 % (36.0-47.0); HEMOGLOBIN 9.1 g/dl (12.0-15.5); LYMPH # 0.5 10^3/uL (1.5-5.0); LYMPH % 5.9 % (24.0-44.0); MEAN CORPUSCULAR HEMOGLOBIN 29.9 pg (27.0-33.0); MEAN CORPUSCULAR HGB CONC 33.6 g/dl (32.0-36.5); MEAN CORPUSCULAR VOLUME 89.1 fl (80.0-96.0); MONO # 0.4 10^3/uL (0.0-0.8); MONO % 4.1 % (2.0-8.0); NEUTROPHILS % 89.1 % (36.0-66.0); RED BLOOD COUNT 3.04 10^6/uL (4.00-5.40)
[2021-02-24 06:10] LABS: PLATELET COUNT, AUTOMATED 77 10^3/uL (150-450)
[2021-02-24 06:39] LABS: ALBUMIN 3.2 GM/DL (3.2-5.2); BILIRUBIN,TOTAL 2.3 MG/DL (0.2-1.0); CALCIUM LEVEL 8.3 MG/DL (8.5-10.1); CREATININE FOR GFR 1.59 MG/DL (0.55-1.30); GLOMERULAR FILTRATION RATE 35.4 (>51); POTASSIUM SERUM 3.4 MEQ/L (3.5-5.1); TOTAL PROTEIN 5.8 GM/DL (6.4-8.2)
[2021-02-24] MEDS: MIDODRINE 5 MG TAB PO SCH (07:10)
[2021-02-24] MEDS: METOCLOPRAMIDE INJ 10MG/2ML VIAL (J2765 PER 1) IV SCH (07:10)
[2021-02-24] MEDS ORDERED: POTASSIUM CHLORIDE 10% LIQ 20 MEQ/15 ML UDC PO SCH (09:00)
[2021-02-24] MEDS ORDERED: FUROSEMIDE 20MG/2ML VIAL (J1940) IV SCH (09:00)
[2021-02-24] MEDS: GABAPENTIN 300 MG CAP PO SCH (09:17)
[2021-02-24] MEDS: THIAMINE 100 MG TAB PO SCH (09:17)
[2021-02-24] MEDS: SERTRALINE HCL 50 MG TAB PO SCH (09:17)
[2021-02-24] MEDS: SODIUM BICARBONATE 325 MG TAB PO SCH (09:17)
[2021-02-24] MEDS: predniSONE 20 MG TAB PO SCH (09:17)
[2021-02-24] MEDS: PANTOPRAZOLE 40MG VIAL (C9113 PER 1) IV SCH (09:17)
--- NOTE | 2021-02-24 09:37 | DS.PDOC ---
Discharge Summary General Date of Admission February 22, 2021 at 15:04 Date of Discharge 02/24/21 Discharge Summary DISCHARGE DIAGNOSES: 1. Decompensated alcoholic liver cirrhosis with recurrent ascites status post paracentesis 02/22/2021 with 4.4 liters of ascites removed. No signs of SBP. 2. Acute hepatic encephalopathy with elevated ammonia level improving on lactulose. 3. Intractable nausea, vomiting due to significant amount of ascites improved on antiemetics and paracentesis. 4. Thrombocytopenia and coagulopathy secondary to end-stage alcoholic liver cirrhosis. 5. Chronic kidney disease stage 3 at baseline. 6. Anemia of chronic disease. 7. History of alcohol abuse. 8. Portal hypertension. 9. History of hepatorenal syndrome type 1. 10. Alcoholic hepatitis with elevated bilirubin. 11. Hypokalemia. 12. Metabolic acidosis. DISCHARGE MEDICATIONS: SEE BELOW DISCHARGE INSTRUCTIONS: 2LITER FLUID RESTRICTION. PCP AND GI DR ALEXANDREA CONTRERAS IN 5 DAYS. HOSPITAL COURSE: This is a 61-year-old with decompensated alcoholic liver cirrhosis with portal hypertension, last drink was a year ago, chronic kidney disease stage 3, prior type 1 hepatorenal syndrome, chronic hyponatremia, reducible non-incarcerated umbilical hernia, coagulopathy due to decompensated liver cirrhosis, anemia of chronic disease and hypotension secondary to third spacing previously required Levophed and currently on midodrine admitted due to intractable nausea, vomiting, abdominal distention found to have decompensated alcoholic liver cirrhosis with recurrent ascites status post paracentesis on 02/22/2021 with 4.4 liters removed. Patient was maintained on full supportive care. She has received 2 units of 25% albumin given yesterday q6h, status post 4.4 liters removed. She was to have albumin 1 gm/kg q6h over the next 2 days. Lactulose was given until patient's mentation is back to baseline and ammonia level is normal. She is on rifaximin and was previously on prophylactic ciprofloxacin for intra-abdominal ascites. was on prednisone yesterday for etoh hepatitis with improvement in her bilirubin and aminotransferases and PPI. Compression stockings for DVT prophylaxis. No active signs of GI bleed, fever or chills. Her stage 3CKD is at baseline. DISCHARGE PE: VITALS: SEE BELOW General: Patient is cachectic, hyperpigmented skin. No pallor, icterus, jaundice. No use of respiratory accessory muscles. HEENT: Dry mucous membranes. Neck: No JVD, thyromegaly. Lungs: Diminished, but clear to auscultation without wheezing. Heart: S1 and S2 sinus tachycardia. Abdomen: Soft, nontender, nondistended, positive bowel sounds. Extremities: 1+ pitting edema bilaterally, LABORATORY DATA:SEE BELOW IMAGING STUDIES: Paracentesis 02/22/2021: 4.4 liters fluid removed.SEE BELOW Vital Signs/I&Os Vital Signs Date Time Temp Pulse Resp B/P (MAP) Pulse Ox O2 Delivery O2 Flow Rate FiO2 02/24/21 06:00 97.3 61 18 119/64 (82) 100 Room Air I&O- Last 24 Hours up to 6 AM 02/24/21 06:00 Intake Total 1650.0 ml Output Total 1150 ml Balance 500.0 ml Laboratory Data Labs 24H Laboratory Tests 2 02/24/21 05:53: Immature Granulocyte % (Auto) 0.8, Neutrophils (%) (Auto) 89.1H, Lymphocytes (%) (Auto) 5.9L, Monocytes (%) (Auto) 4.1, Eosinophils (%) (Auto) 0.0, Basophils (%) (Auto) 0.1, Neutrophils # (Auto) 8.0, Lymphocytes # (Auto) 0.5L, Monocytes # (Auto) 0.4, Eosinophils # (Auto) 0.0, Basophils # (Auto) 0.0, Nucleated Red Blood Cells % (auto) 0.0, Immature Platelet Fraction 1.4, Anion Gap 9, Glomerular Filtration Rate 35.4L, Calcium Level 8.3L, Total Bilirubin 2.3H, Aspartate Amino Transf (AST/SGOT) 41H, Alanine Aminotransferase (ALT/SGPT) 25, Alkaline Phosphatase 101, Ammonia 32, Total Protein 5.8L, Albumin 3.2, Albumin/ Globulin Ratio 1.2 CBC/BMP Laboratory Tests 02/24/21 05:53 Microbiology Microbiology 02/22/21 Respiratory Virus Panel (PCR) (JENNIFER) - Final, Complete Discharge Medications Scheduled Ciprofloxacin HCl (Ciprofloxacin HCl) 500 Mg Tablet, 500 MG PO DAILY, (Reported) TAKE AFTER LUNCH Folic Acid (Folic Acid) 1 Mg Tablet, 1 MG PO DAILY, (Reported) TAKES AFTER LUNCH Gabapentin (Gabapentin) 300 Mg Capsule, 300 MG PO QAM, (Reported) Gabapentin (Gabapentin) 300 Mg Capsule, 600 MG PO QHS, (Reported) Lactulose (Lactulose) 10 Gm/15 Ml Solution, 15 ML PO TID, (Reported) Midodrine HCl (Midodrine HCl) 10 Mg Tablet, 10 MG PO TID, (Reported) Pantoprazole Sodium (Pantoprazole Sodium) 40 Mg Tablet.dr, 40 MG PO DAILY, (Reported) Sertraline HCl (Sertraline HCl) 50 Mg Tablet, 50 MG PO DAILY, (Reported) Thiamine HCl (Thiamine HCl) 100 Mg Tablet, 100 MG PO DAILY, (Reported) Trazodone HCl (Trazodone HCl) 50 Mg Tablet, 50 MG PO QHS, (Reported) Allergies Coded Allergies: No Known Allergies (Unverified , 03/28/20) HANK FONTANA MD February 24, 2021 09:37
== END 2021-02-24 11:15 | disposition home or self-care (01) | DRG 280 ==
LOC: M ED 11:18 → M ED INP 15:04 → ENRESERV 15:52 → M MSPAV 17:21
PROVIDERS: ADMIT General Practice; ATTEND General Practice
PROC: 0W9F3ZZ Drainage of Abdominal Wall, Percutaneous Approach (ICD-10-PCS; principal; 2021-02-22 15:30)
DX: K70.31 Alcoholic cirrhosis of liver with ascites (principal); E87.2 Acidosis; D69.6 Thrombocytopenia, unspecified; K76.6 Portal hypertension; N18.30 Chronic kidney disease, stage 3 unspecified; K70.11 Alcoholic hepatitis with ascites; E87.6 Hypokalemia; K42.9 Umbilical hernia without obstruction or gangrene; Z79.899 Other long term (current) drug therapy; D63.8 Anemia in other chronic diseases classified elsewhere; Z87.891 Personal history of nicotine dependence; K70.40 Alcoholic hepatic failure without coma

== ENCOUNTER → 2021-02-27 | Outpatient (CLI) | payer OTHER ==
[~2021-02-27] MED LIST changes: +CIPR500T39 PO; +SERT50TA29 PO
[2021-02-27 13:17] VITALS: BP 102/58
--- NOTE | 2021-02-27 17:56 | REP ---
INDICATION: ASCITES. COMPARISON: None. TECHNIQUE: The procedure was performed under the direct supervision of Dr. Conn. The risks and benefits of the procedure were explained to the patient and informed consent was obtained. The largest pocket of fluid was localized in the right flank using ultrasound guidance. The skin was prepped and draped in a sterile fashion. 1% lidocaine was used as a local anesthetic. Using ultrasound guidance, an 8-Sinhala multi side-hole catheter was inserted using trocar technique.4700 mL of cloudy yellow fluid was withdrawn and discarded. The patient tolerated the procedure well and there were no immediate complications. After the appropriate amount of monitored convalescence, the patient was discharged from the department. FINDINGS: None IMPRESSION: Ultrasound-guided paracentesis [id number] mL of cloudy yellow fluid. <Electronically signed by Nathanael Garduno > 02/27/21 1520 <Electronically signed by James Conn > 02/27/21 [id number]
== END ==
LOC: M IRPRO 12:15
PROVIDERS: ATTEND Internal Medicine Gastroenterology
DX: K70.31 Alcoholic cirrhosis of liver with ascites (principal)

== ENCOUNTER → 2021-03-04 | Outpatient (CLI) | payer OTHER ==
[~2021-03-04] MED LIST changes: +SODIUM BICARBONATE 8.4% INJ 50MEQ 50 ML VIAL As Ordered ONE
[2021-03-04 12:43] LABS: BASO # 0.1 10^3/uL (0.0-0.2); BASO % 0.5 % (0.0-1.0); EOS # 0.1 10^3/uL (0.0-0.5); EOS % 0.6 % (0.0-3.0); HEMATOCRIT 31.9 % (36.0-47.0); HEMOGLOBIN 10.5 g/dl (12.0-15.5); LYMPH # 0.6 10^3/uL (1.5-5.0); LYMPH % 6.3 % (24.0-44.0); MEAN CORPUSCULAR HEMOGLOBIN 29.6 pg (27.0-33.0); MEAN CORPUSCULAR HGB CONC 32.9 g/dl (32.0-36.5); MEAN CORPUSCULAR VOLUME 89.9 fl (80.0-96.0); MONO # 1.5 10^3/uL (0.0-0.8); MONO % 14.5 % (2.0-8.0); NEUTROPHILS # 7.8 10^3/uL (1.5-8.5); NEUTROPHILS % 76.4 % (36.0-66.0); PLATELET COUNT, AUTOMATED 109 10^3/uL (150-450); RED BLOOD COUNT 3.55 10^6/uL (4.00-5.40)
[2021-03-04 12:44] LABS: WHITE BLOOD COUNT 10.2 10^3/uL (4.0-10.0)
[2021-03-04 12:52] LABS: INR 1.62; PROTHROMBIN TIME 19.6 SECONDS (12.5-14.3)
[2021-03-04 12:53] LABS: PARTIAL THROMBOPLASTIN TIME 41.3 SECONDS (24.2-38.5)
[2021-03-04 13:11] LABS: BILIRUBIN,DIRECT 1.4 MG/DL (0.0-0.2); CALCIUM LEVEL 8.3 MG/DL (8.5-10.1); CREATININE FOR GFR 1.79 MG/DL (0.55-1.30); GLOMERULAR FILTRATION RATE 30.9 (>51); POTASSIUM SERUM 3.8 MEQ/L (3.5-5.1); TOTAL PROTEIN 6.6 GM/DL (6.4-8.2)
[2021-03-04 13:30] VITALS: BP 103/69
--- NOTE | 2021-03-05 09:54 | REP ---
INDICATION: ASCITES The patient has a history of ascites COMPARISON: None. TECHNIQUE: The procedure was performed by HECTOR Alfredo, under the direct supervision of Dr. Galan The risks and benefits of the procedure were explained to the patient and an informed consent was obtained both verbally and written. Directly prior to the start of the procedure a formal time-out was completed in the procedure room. The largest pocket of fluid was localized in the left flank using ultrasound guidance. The skin was prepped and draped in a sterile fashion. Eleven ML of buffered lidocaine was used as a local anesthetic. An 8-Omani multi side-hole catheter was inserted using trocar technique. Approximately 3000 mL of ascites fluid was removed when the bowel pushed the catheter out. The abdomen was re-evaluated using ultrasound guidance and another large fluid pocket in the right flank was localized. The skin was prepped and draped in a sterile fashion. 10 mL of 1% lidocaine 10 milligrams/milliliter was used as a local anesthetic. An 8 Omani multi sidehole catheter was inserted using trocar technique. Another 2800 mL of ascites fluid was removed and discarded. FINDINGS: Ultrasound-guided paracentesis with removal in total of approximately 5800 mL of ascites. The patient tolerated the procedure well and there were no immediate complications. After the appropriate amount of monitored convalescence, the patient was discharged from the department. IMPRESSION: Ultrasound-guided paracentesis with removal of 5800 mL of cloudy yellow ascites. <Electronically signed by Yu Santiago > 03/04/21 1724 <Electronically signed by Heron Galan > 03/05/21 [id number]
== END ==
LOC: M IRPRO 12:09
PROVIDERS: ATTEND Internal Medicine Gastroenterology
DX: K70.31 Alcoholic cirrhosis of liver with ascites (principal)
CPT/HCPCS: 49083; 80048; 80076; 85025; 85610; 85730; 96365; P9047

== ENCOUNTER 2021-03-07 10:00 | Outpatient (RCR) | payer OTHER ==
[~2021-03-07 10:00] MED LIST changes: -SODIUM BICARBONATE 8.4% INJ 50MEQ 50 ML VIAL As Ordered ONE
== END 2021-03-11 ==
LOC: M OUTALCOH 10:00
PROVIDERS: ATTEND Psychiatry & Neurology Psychiatry
DX: F10.20 Alcohol dependence, uncomplicated (principal); F17.200 Nicotine dependence, unspecified, uncomplicated

== ENCOUNTER → 2021-03-08 | Outpatient (CLI) | payer OTHER ==
[~2021-03-08] MED LIST changes: +VENL37.598 PO
[2021-03-08 14:16] LABS: BASO # 0.1 10^3/uL (0.0-0.2); BASO % 0.6 % (0.0-1.0); EOS # 0.2 10^3/uL (0.0-0.5); EOS % 1.8 % (0.0-3.0); HEMATOCRIT 27.8 % (36.0-47.0); HEMOGLOBIN 9.3 g/dl (12.0-15.5); LYMPH % 10.8 % (24.0-44.0); MEAN CORPUSCULAR HEMOGLOBIN 29.5 pg (27.0-33.0); MEAN CORPUSCULAR HGB CONC 33.5 g/dl (32.0-36.5); MEAN CORPUSCULAR VOLUME 88.3 fl (80.0-96.0); MONO # 0.9 10^3/uL (0.0-0.8); MONO % 10.3 % (2.0-8.0); NEUTROPHILS # 6.7 10^3/uL (1.5-8.5); NEUTROPHILS % 75.2 % (36.0-66.0); PLATELET COUNT, AUTOMATED 120 10^3/uL (150-450); RED BLOOD COUNT 3.15 10^6/uL (4.00-5.40); WHITE BLOOD COUNT 8.9 10^3/uL (4.0-10.0)
[2021-03-08 14:27] LABS: INR 1.5; PROTHROMBIN TIME 18.4 SECONDS (12.5-14.3)
[2021-03-08 14:28] LABS: PARTIAL THROMBOPLASTIN TIME 39.5 SECONDS (24.2-38.5)
[2021-03-08 14:41] LABS: ALBUMIN 3.1 GM/DL (3.2-5.2); BILIRUBIN,DIRECT 1.2 MG/DL (0.0-0.2); BILIRUBIN,TOTAL 2.9 MG/DL (0.2-1.0); CALCIUM LEVEL 8.7 MG/DL (8.5-10.1); CREATININE FOR GFR 1.48 MG/DL (0.55-1.30); GLOMERULAR FILTRATION RATE 38.4 (>51); POTASSIUM SERUM 3.8 MEQ/L (3.5-5.1); TOTAL PROTEIN 6.4 GM/DL (6.4-8.2)
[2021-03-08 15:27] VITALS: BP 103/56
--- NOTE | 2021-03-09 09:20 | REP ---
INDICATION: ASCITES. COMPARISON: None. TECHNIQUE: The procedure was performed under the direct supervision of Dr. Galan. The risks and benefits of the procedure were explained to the patient and informed consent was obtained. The largest pocket of fluid was localized in the left flank using ultrasound guidance. The skin was prepped and draped in a sterile fashion. 1% lidocaine was used as a local anesthetic. Using ultrasound guidance, an 8-Croatian multi side-hole catheter was inserted using trocar technique.5700 cc of yellow fluid was withdrawn and discarded. The patient tolerated the procedure well and there were no immediate complications. After the appropriate amount of monitored convalescence, the patient was discharged from the department. FINDINGS: None IMPRESSION: Ultrasound-guided paracentesis [id number] cc of yellow fluid. <Electronically signed by Nathanael Garduno > 03/08/21 1702 <Electronically signed by Heron Galan > 03/09/21 [id number]
== END ==
LOC: M IRPRO 13:18
PROVIDERS: ATTEND Internal Medicine Gastroenterology
DX: K70.31 Alcoholic cirrhosis of liver with ascites (principal)
CPT/HCPCS: 49083; 80048; 80076; 85025; 85610; 85730; 96365; P9047

== ENCOUNTER 2021-03-13 12:00 | Inpatient (IN) | payer OTHER ==
[~2021-03-13] VITALS: Ht 154.9 cm; Wt 61.5 kg
[~2021-03-13 12:00] MED LIST changes: -SODI325T9 PO; -VENL37.598 PO
[2021-03-13 13:12] LABS: BASO % 0.5 % (0.0-1.0); EOS # 0.2 10^3/uL (0.0-0.5); HEMOGLOBIN 8.4 g/dl (12.0-15.5); LYMPH # 1.1 10^3/uL (1.5-5.0); LYMPH % 17.4 % (24.0-44.0); MEAN CORPUSCULAR HEMOGLOBIN 30.1 pg (27.0-33.0); MEAN CORPUSCULAR HGB CONC 33.6 g/dl (32.0-36.5); MEAN CORPUSCULAR VOLUME 89.6 fl (80.0-96.0); MONO # 0.9 10^3/uL (0.0-0.8); MONO % 14.6 % (2.0-8.0); NEUTROPHILS # 4.1 10^3/uL (1.5-8.5); NEUTROPHILS % 63.7 % (36.0-66.0); PLATELET COUNT, AUTOMATED 96 10^3/uL (150-450); RED BLOOD COUNT 2.79 10^6/uL (4.00-5.40); WHITE BLOOD COUNT 6.4 10^3/uL (4.0-10.0)
[2021-03-13 13:41] LABS: ALBUMIN 4.4 GM/DL (3.2-5.2); ALT/SGPT 27 U/L (12-78); BILIRUBIN,TOTAL 2.6 MG/DL (0.2-1.0); BLOOD UREA NITROGEN 45 MG/DL (7-18); CALCIUM LEVEL 9.1 MG/DL (8.5-10.1); CARBON DIOXIDE LEVEL 20 MEQ/L (21-32); CHLORIDE LEVEL 106 MEQ/L (98-107); CK-MB VALUE MASS 1.2 NG/ML (<3.6); CPK CREATINE PHOSPHOKINASE 44 U/L (26-192); GLOMERULAR FILTRATION RATE 28.8 (>51); GLUCOSE, FASTING 75 MG/DL (70-100); LIPASE 868 U/L (73-393); MB/CK RELATIVE INDEX 2.73 (< OR =4); POTASSIUM SERUM 4.1 MEQ/L (3.5-5.1); SODIUM LEVEL 135 MEQ/L (136-145); TROPONIN I < 0.02 NG/ML (< 0.10)
[2021-03-13 13:46] LABS: RSV AMPLIFICATION NEGATIVE (NEGATIVE)
[2021-03-13 14:02] LABS: INR 1.83; PROTHROMBIN TIME 21.6 SECONDS (12.5-14.3)
[2021-03-13 14:03] LABS: PARTIAL THROMBOPLASTIN TIME 42.2 SECONDS (24.2-38.5)
--- NOTE | 2021-03-13 14:15 | REP ---
INDICATION: Abdominal Pain COMPARISON: None. TECHNIQUE: Upright view of the chest with supine and upright views of the abdomen and pelvis. FINDINGS: Frontal upright view of the chest demonstrates no acute cardiopulmonary process or free air below the diaphragm to suspect pneumoperitoneum. Supine and upright views of the abdomen and pelvis demonstrate nonspecific bowel gas pattern without obstruction or perforation. No organomegaly. No abnormal calcifications. Skeletal structures normal for age. IMPRESSION: Nonspecific bowel gas pattern. <Electronically signed by Harshal Vaughn > 03/13/21 [id number]
[2021-03-13] MEDS ORDERED: VENL37.598 PO (14:51)
[2021-03-13 15:09] VITALS: BP 110/57
[2021-03-13 15:16] VITALS: BP 100/62
[2021-03-13] MEDS ORDERED: PANTOPRAZOLE 40MG VIAL (C9113 PER 1) IV ONE (15:35)
[2021-03-13 16:09] VITALS: BP 119/70
[2021-03-13] MEDS ORDERED: OCTREOTIDE ACETATE 1,200 MCG in NS 238.8 ML IV SCH (16:10)
[2021-03-13] MEDS ORDERED: SODIUM CHLORIDE 0.9% 1000ML IV ONE ×2 (16:20→17:35)
[2021-03-13 17:11] VITALS: BP 121/73
[2021-03-13 17:47] VITALS: BP 115/70
--- NOTE | 2021-03-13 17:55 | HPEPDOC ---
General Date of Admission 03/13/21 Date of Service: Mar 13, 2021 Chief Complaint The patient is a 61-year-old female admitted with a reason for visit of Weakness. Source: Patient, Family, RN/MD History of Present Illness 61 year old female with decompensated alcoholic cirrhosis of liver was at IR today for her scheduled paracentesis which she gets every week where she was acc ompanied by her mother as she was confused and very sleepy. She usually comes in for her paracentesis alone. However, mother reported that she has been very sleepy, sleeping almost 20 hours a day for the past 3 days has been confused and lethargic so mother accompanied the patient today. She hasn't been able to prepare her own meals and this morning she couldn't even dress herself. Mother reports that she had to call the patient's daughter to come in and get her dressed. Mother also reported that for the past 2-3 days she hasn't been able to get much food or liquids down into her because she has been very sleepy. She had her paracentesis done with removal of 2000 ml of clear yellow fluid and was sent to the ED for evaluation. In the ED her Hb was 8.4 down from 9.9 earlier in the morning. She also had guaiac positive dark green stools. She was admitted for evaluation of metabolic encephalopathy Home Medications Scheduled Ciprofloxacin HCl (Ciprofloxacin HCl) 500 Mg Tablet, 500 MG PO DAILY, (Reported) TAKE AFTER LUNCH Folic Acid (Folic Acid) 1 Mg Tablet, 1 MG PO DAILY, (Reported) TAKES AFTER LUNCH Gabapentin (Gabapentin) 300 Mg Capsule, 300 MG PO QAM, (Reported) Gabapentin (Gabapentin) 300 Mg Capsule, 600 MG PO QHS, (Reported) Lactulose (Lactulose) 10 Gm/15 Ml Solution, 15 ML PO TID, (Reported) Midodrine HCl (Midodrine HCl) 10 Mg Tablet, 10 MG PO TID, (Reported) Pantoprazole Sodium (Pantoprazole Sodium) 40 Mg Tablet.dr, 40 MG PO DAILY, (Reported) Sertraline HCl (Sertraline HCl) 50 Mg Tablet, 50 MG PO DAILY, (Reported) Thiamine HCl (Thiamine HCl) 100 Mg Tablet, 100 MG PO DAILY, (Reported) Trazodone HCl (Trazodone HCl) 50 Mg Tablet, 50 MG PO QHS, (Reported) Venlafaxine HCl (Venlafaxine HCl ER) 37.5 Mg Cap.er.24h, 37.5 MG PO QHS, (Reported) Allergies Coded Allergies: No Known Allergies (Unverified , 03/28/20) Past Medical History Medical History Decompensated alcoholic liver cirrhosis with ascites, portal hypertension, coagulopathy, thrombocytopenia, chronic hyponatremia CKD stage III , Hepatorenal syndrome, Anxiety and depression Reducible non incarcerated umbilical hernia, Anemia of chronic disease, hypotension requiring Levophed drip during admission in November 2020 Surgical History Multiple paracenteses EGD and colonoscopy at [place] Family History Father CAD. Maternal uncle, cancer Social History * Smoker: quit less than 1 year Alcohol: sober Last drink was one year ago. Prior smoker, more than a pack a day for 20 years, quit several months ago. A-FIB/CHADSVASC A-FIB History Current/History of A-Fib/PAF?: No Review of Systems Constitutional: Reports: Weakness, Fatigue, Lethargy; Denies: Chills, Fever, Night Sweats Eyes: Denies: Pain, Vision change ENT: Denies: Head Aches, Ear Pain, Dysphagia Skin: Denies: Rash, Lesions, Breakdown Pulmonary: Denies: Dyspnea, Cough Cardiovascular: Denies: Chest Pain, Palpitations, Edema Gastrointestinal: Denies: Nausea, Vomiting, Abdominal Pain, Diarrhea Genitourinary: Denies: Dysuria, Frequency, Incontinence, Retention Hematologic: Denies: Bruising, Bleeding Excessively Psych: Reports: Memory Issues Physical Examination General Exam: Positive: Cooperative, No Acute Distress, Other (somnolent but easily arousable) Eye Exam: Positive: PERRLA, Conjunctiva & lids normal, EOMI, Sclera icteric ENT Exam: Positive: Atraumatic, Other ENT (. Dry mucous membrane) Neck Exam: Positive: Supple; Negative: JVD, thyromegaly Chest Exam: Positive: Clear to auscultation, Normal air movement Heart Exam: Positive: Rate Normal, Regular Rhythm, Normal S1, Normal S2; Negative: Murmurs, Rubs Abdomen Exam: Positive: Normal bowel sounds, Soft; Negative: Tenderness Extremity Exam: Negative: Clubbing, Cyanosis, Edema Neuro Exam: Positive: Normal Speech, Normal Tone, Other (Moves all 4 extremities) Psych Exam: Positive: Other (oriented 2) Vital Signs Vital Signs Date Time Temp Pulse Resp B/P (MAP) Pulse Ox O2 Delivery O2 Flow Rate FiO2 03/13/21 12:01 97.4 71 18 121/73 (89) 100 Room Air Laboratory Data Labs 24H Laboratory Tests 2 03/13/21 12:27: Immature Granulocyte % (Auto) 0.8, Neutrophils (%) (Auto) 63.7, Lymphocytes (%) (Auto) 17.4L, Monocytes (%) (Auto) 14.6H, Eosinophils (%) (Auto) 3.0, Basophils (%) (Auto) 0.5, Neutrophils # (Auto) 4.1, Lymphocytes # (Auto) 1.1L, Monocytes # (Auto) 0.9H, Eosinophils # (Auto) 0.2, Basophils # (Auto) 0.0, Nucleated Red Blood Cells % (auto) 0.0, Immature Platelet Fraction 1.0, Prothrombin Time 21.6H, Prothromb Time International Ratio 1.83, Activated Partial Thromboplast Time 42.2H, Anion Gap 9, Glomerular Filtration Rate 28.8L, Calcium Level 9.1, Total Bilirubin 2.6H, Direct Bilirubin 1.0H, Aspartate Amino Transf (AST/SGOT) 58H, Alanine Aminotransferase (ALT/SGPT) 27, Alkaline Phosphatase 118H, Ammonia 30, Total Creatine Kinase 44, Creatine Kinase MB 1.2, Creatine Kinase MB Relative Index 2.73, Troponin I < 0.02, Total Protein 7.0, Albumin 4.4#, Albumin/Globulin Ratio 1.7, Lipase 868H, Coronavirus (COVID-19)(PCR) NEGATIVE, Influenza Type A (RT-PCR) NEGATIVE, Influenza Type B (RT-PCR) NEGATIVE, Respiratory Syncytial Virus (PCR) NEGATIVE CBC/BMP Laboratory Tests 03/13/21 12:27 Assessment/Plan 61 year old female with decompensated alcoholic cirrhosis of liver, CKD stage 3, anemia of chronic disease, anxiety and depression was at IR for her scheduled paracentesis which she gets every week where she was accompanied by her mother as she was confused and very sleepy. Mother reported that she has been very sleepy, sleeping almost 20 hours a day for the past 3 days has been confused and forgetful. She hasn't been able to prepare her own meals and she couldn't even dress herself. She also hasn't eaten much as she has been mostly sleeping. She had her paracentesis done with removal of 2000 ml of clear yellow fluid and was sent to the ED for evaluation. In the ED her Hb was 8.4 down from 9.9 earlier in the morning. She also had guaiac positive dark green stools. She was admitted for evaluation of metabolic encephalopathy and to evaluate for gastrointestinal bleeding Acute metabolic encephalopathy Ammonia is only 30 so she doesn't have hepatic encephalopathy There is no focal neuro deficits to explain acute stroke. , But will get a CT head or brain to make sure there is not bleeding with her elevated INR. No elevation in white count, no fever , so unlikely Infection. However, will get 2 Sets of Blood Cultures. Her abdomen is soft, nontender, so my suspicion for SBP is low. Unfortunately, her peritoneal fluid with was not sent for any testing today from IR Patient's albumin is some higher than baseline and also her creatinine is higher than baseline with a history of not being able to eat for the past 3 days. She may be mildly dehydrated Mother does say that she was recently started on venlafaxine on 07 of March. Her sertraline was stopped is also on trazodone and gabapentin. I think the reason for her acute metabolic encephalopathy is medications and dehydration Will give him normal saline 1 L Stop trazodone, venlafaxine and gabapentin from now Will give ceftriaxone to empirically cover for SBP Possible GI bleed guaiac was positive in the ED, however, her hemoglobin is close to her baseline She does have anemia of chronic disease She got 1 unit of PRBC in the ED I am not convinced that she is having an acute GIB at this time. Will Monitor CBC If she starts having dodie melena or hematemesis the GI Dr Pedraza will do an EGD. If there is no dodie bleeding, then we'll hold off on any procedures during this admission. This was discussed with Dr. Pedraza. will give pantoprazole IV Decompensated cirrhosis of liver with ascites, thrombocytopenia, coagulopathy, portal hypertension and as per Dr Pedraza has small varices seen in the EGD from [place] [facility] [place] done earlier this year. Had paracentesis done today Her platelet count and INR remains close to baseline NAS on CKD stage III At present. She is also mildly dehydrated She has hepatorenal syndrome Will give IV fluid 1 L Consult nephrology Anemia of chronic disease Will transfuse if hemoglobin less than 8 Will check iron profile Plan / VTE VTE Prophylaxis Ordered?: Yes DELL PRECIADO MD Mar 13, 2021 15:18
[2021-03-13] MEDS: cefTRIAXone SOD 1 GM in D5W MINI-BAG PLUS 50 ML IV SCH (18:44)
--- NOTE | 2021-03-13 19:56 | REPVR ---
PROCEDURE INFORMATION: Exam: CT Head Without Contrast Exam date and time: 03/13/2021 7:17 PM Age: 61 years old Clinical indication: Other: AMS; Additional info: Altered mental status TECHNIQUE: Imaging protocol: Computed tomography of the head without contrast. Radiation optimization: All CT scans at this facility use at least one of these dose optimization techniques: automated exposure control; mA and/or kV adjustment per patient size (includes targeted exams where dose is matched to clinical indication); or iterative reconstruction. COMPARISON: No relevant prior studies available. FINDINGS: Brain: [id number] generalized cerebral and cerebellar volume loss, advanced for age. No hemorrhage or edema seen. Cerebral ventricles: The ventricles are mildly enlarged in keeping with volume loss. Paranasal sinuses: Visualized sinuses are unremarkable. No fluid levels. Mastoid air cells: Visualized mastoid air cells are well aerated. Bones/joints: Small lucent right parietal calvarial lesion, probably benign. No acute fracture. Soft tissues: Unremarkable. IMPRESSION: No acute intracranial abnormality seen. Electronically signed by: April Wray On 03/13/2021 19:56:26 PM
[2021-03-13] MEDS: LACTULOSE 20 GM/30 ML SYRUP UD PO SCH (20:03)
--- NOTE | 2021-03-13 20:55 | ECGEPIP ---
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
[2021-03-13] MEDS ORDERED: VENLAFAXINE **XR** 37.5 MG CAPSULE PO SCH (21:00)
[2021-03-13 22:00] VITALS: BP 101/59
[2021-03-13] MEDS ORDERED: HYDROmorphone 2 MG TAB PO ONE (22:00)
[2021-03-13] MEDS ORDERED: traZODone 50 MG TAB PO ONE (22:00)
[2021-03-13 22:28] LABS: HEMATOCRIT 29.8 % (36.0-47.0); MEAN CORPUSCULAR HEMOGLOBIN 29.9 pg (27.0-33.0); MEAN CORPUSCULAR HGB CONC 33.6 g/dl (32.0-36.5); MEAN CORPUSCULAR VOLUME 89.2 fl (80.0-96.0); RED BLOOD COUNT 3.34 10^6/uL (4.00-5.40); WHITE BLOOD COUNT 6.6 10^3/uL (4.0-10.0)
[2021-03-13 22:40] LABS: PLATELET COUNT, AUTOMATED 95 10^3/uL (150-450)
[2021-03-13 22:59] LABS: FERRITIN 680 NG/ML (8-252); IRON (FE) 107 UG/DL (50-170); PERCENT SATURATION 113.8 % (13.2-45.0); TOTAL IRON BINDING CAPACITY 94 UG/DL (250-450)
[2021-03-13 23:07] LABS: FOLATE 17.7 NG/ML (>5.4); VITAMIN B12 LEVEL > 2000 PG/ML (247-911)
[2021-03-13 23:25] LABS: AMPHETAMINES LEVEL URINE NEGATIVE (NEGATIVE); BARBITURATES URINE NEGATIVE (NEGATIVE); BENZODIAZEPINES URINE NEGATIVE (NEGATIVE); CANNABINOIDS URINE POSITIVE (NEGATIVE); COCAINE METABOLITE URINE NEGATIVE (NEGATIVE); METHADONE URINE NEGATIVE (NEGATIVE); OPIATES URINE NEGATIVE (NEGATIVE); PHENCYCLIDINE URINE NEGATIVE (NEGATIVE)
[2021-03-14] MEDS: PANTOPRAZOLE 40MG VIAL (C9113 PER 1) IV SCH ×2 (05:14→17:21)
[2021-03-14 06:00] VITALS: BP 104/71
[2021-03-14 06:41] LABS: BASO % 0.7 % (0.0-1.0); EOS # 0.2 10^3/uL (0.0-0.5); EOS % 3.9 % (0.0-3.0); HEMOGLOBIN 8.9 g/dl (12.0-15.5); LYMPH # 1.2 10^3/uL (1.5-5.0); LYMPH % 21.7 % (24.0-44.0); MEAN CORPUSCULAR HEMOGLOBIN 30.3 pg (27.0-33.0); MEAN CORPUSCULAR HGB CONC 34.2 g/dl (32.0-36.5); MEAN CORPUSCULAR VOLUME 88.4 fl (80.0-96.0); MONO # 0.8 10^3/uL (0.0-0.8); MONO % 14.6 % (2.0-8.0); NEUTROPHILS # 3.1 10^3/uL (1.5-8.5); NEUTROPHILS % 58.4 % (36.0-66.0); RED BLOOD COUNT 2.94 10^6/uL (4.00-5.40); WHITE BLOOD COUNT 5.3 10^3/uL (4.0-10.0)
[2021-03-14 06:48] LABS: PLATELET COUNT, AUTOMATED 79 10^3/uL (150-450)
[2021-03-14 07:12] LABS: BILIRUBIN,TOTAL 4.4 MG/DL (0.2-1.0); CALCIUM LEVEL 8.3 MG/DL (8.5-10.1); CREATININE FOR GFR 1.37 MG/DL (0.55-1.30); POTASSIUM SERUM 4.1 MEQ/L (3.5-5.1); TOTAL PROTEIN 5.6 GM/DL (6.4-8.2)
[2021-03-14] MEDS: THIAMINE 100 MG TAB PO SCH (08:10)
[2021-03-14] MEDS: MIDODRINE 5 MG TAB PO SCH ×3 (08:11→17:22)
[2021-03-14] MEDS: LACTULOSE 20 GM/30 ML SYRUP UD PO SCH ×3 (08:11→20:09)
[2021-03-14] MEDS ORDERED: SERTRALINE HCL 25 MG TABLET PO SCH (09:00)
--- NOTE | 2021-03-14 12:28 | IPNPDOC ---
Subjective Date Seen The patient was seen on 03/14/21. Subjective Chief Complaint/HPI Patient remains confused this morning. Though pleasant and able to have a conversation. Does not remember that she had the paracentesis yesterday. She received trazodone and hydromorphone last night. had 1 soft bowel movement last night. Objective Physical Examination General Exam: Positive: Cooperative, No Acute Distress, Other (confused about recent events ) Eye Exam: Positive: PERRLA, Conjunctiva & lids normal, EOMI, Sclera icteric ENT Exam: Positive: Atraumatic, Other ENT (. Dry mucous membrane) Neck Exam: Positive: Supple; Negative: JVD, thyromegaly Chest Exam: Positive: Clear to auscultation, Normal air movement Heart Exam: Positive: Rate Normal, Regular Rhythm, Normal S1, Normal S2; Negative: Murmurs, Rubs Abdomen Exam: Positive: Normal bowel sounds, Soft; Negative: Tenderness Extremity Exam: Negative: Clubbing, Cyanosis, Edema Neuro Exam: Positive: Normal Speech, Normal Tone, Other (Moves all 4 ex tremities) Psych Exam: Positive: Other (oriented 2) Assessment /Plan Assessment 61 year old female with decompensated alcoholic cirrhosis of liver, CKD stage 3, anemia of chronic disease, anxiety and depression was at IR for her scheduled pa racentesis which she gets every week where she was accompanied by her mother as she was confused and very sleepy. Mother reported that she has been very sleepy, sleeping almost 20 hours a day for the past 3 days has been confused and forgetful. She hasn't been able to prepare her own meals and she couldn't even dress herself. She also hasn't eaten much as she has been mostly sleeping. She had her paracentesis done with removal of 2000 ml of clear yellow fluid and was sent to the ED for evaluation. In the ED her Hb was 8.4 down from 9.9 earlier in the morning. She also had guaiac positive dark green stools. She was admitted for evaluation of metabolic encephalopathy and to evaluate for gastrointestinal bleeding Acute metabolic encephalopathy Ammonia is only 30 so she doesn't have hepatic encephalopathy CT head no acute events though does show diffuse atrophy more than expected for age. No signs of infection. Procalcitonin< 0.5 Likely medication related. Stopped venlafaxine and sertraline. Will only give trazodone prn. Possible chronic GI bleed guaiac was positive in the ED, Also stool for occult blood positive. However, her hemoglobin is close to her baseline She does have anemia of chronic disease also. She got 1 unit of PRBC Will Monitor CBC If she starts having dodie melena or hematemesis the GI Dr Pedraza will do an EGD. If there is no dodie bleeding, then we'll hold off on any procedures during this admission. This was discussed with Dr. Pedraza. pantoprazole IV Decompensated cirrhosis of liver with ascites, thrombocytopenia, coagulopathy, portal hypertension and as per Dr Pedraza has small varices seen in the EGD from [place] done earlier this year. Had paracentesis done today Her platelet count and INR remains close to baseline NAS on CKD stage III Resolved At present. She is also mildly dehydrated She has hepatorenal syndrome appretiate nephrology consult. Anemia of chronic disease Will transfuse if hemoglobin less than 8 Will check iron profile Plan/VTE VTE Prophylaxis Ordered?: Yes VS, I&O, 24H, Delgadobone Vital Signs/I&O Vital Signs Date Time Temp Pulse Resp B/P (MAP) Pulse Ox O2 Delivery O2 Flow Rate FiO2 03/14/21 06:00 97.3 94 16 104/71 (82) 96 Room Air I&O- Last 24 Hours up to 6 AM 03/14/21 06:00 Intake Total 1360 ml Output Total 595 ml Balance 765 ml Laboratory Data 24H LABS Laboratory Tests 2 03/13/21 12:27: Immature Granulocyte % (Auto) 0.8, Neutrophils (%) (Auto) 63.7, Lymphocytes (%) (Auto) 17.4L, Monocytes (%) (Auto) 14.6H, Eosinophils (%) (Auto) 3.0, Basophils (%) (Auto) 0.5, Neutrophils # (Auto) 4.1, Lymphocytes # (Auto) 1.1L, Monocytes # (Auto) 0.9H, Eosinophils # (Auto) 0.2, Basophils # (Auto) 0.0, Nucleated Red Blood Cells % (auto) 0.0, Immature Platelet Fraction 1.0, Prothrombin Time 21.6H, Prothromb Time International Ratio 1.83, Activated Partial Thromboplast Time 42.2H, Anion Gap 9, Glomerular Filtration Rate 28.8L, Calcium Level 9.1, Total Bilirubin 2.6H, Direct Bilirubin 1.0H, Aspartate Amino Transf (AST/SGOT) 58H, Alanine Aminotransferase (ALT/SGPT) 27, Alkaline Phosphatase 118H, Ammonia 30, Total Creatine Kinase 44, Creatine Kinase MB 1.2, Creatine Kinase MB Relative Index 2.73, Troponin I < 0.02, Total Protein 7.0, Albumin 4.4#, Albumin/Globulin Ratio 1.7, Lipase 868H, Coronavirus (COVID-19)(PCR) NEGATIVE, Influenza Type A (RT-PCR) NEGATIVE, Influenza Type B (RT-PCR) NEGATIVE, Respiratory Syncytial Virus (PCR) NEGATIVE 03/13/21 16:06: Procalcitonin 0.39 03/13/21 22:12: Nucleated Red Blood Cells % (auto) 0.0, Iron Level 107, Total Iron Binding Capacity 94L, Transferrin % Saturation 113.8H, Ferritin 680H, Vitamin B12 Level > 2000H, Folate 17.7 03/13/21 23:08: Urine Opiates Screen NEGATIVE, Urine Methadone Screen NEGATIVE, Urine Mehreen iturates Screen NEGATIVE, Urine Phencyclidine Screen NEGATIVE, Urine Amphetamines Screen NEGATIVE, Urine Benzodiazepines Screen NEGATIVE, Urine Cocaine Metabolite Screen NEGATIVE, Urine Cannabinoids Screen POSITIVEH 03/14/21 06:00: Immature Granulocyte % (Auto) 0.7, Neutrophils (%) (Auto) 58.4, Lymphocytes (%) (Auto) 21.7L, Monocytes (%) (Auto) 14.6H, Eosinophils (%) (Auto) 3.9H, Basophils (%) (Auto) 0.7, Neutrophils # (Auto) 3.1, Lymphocytes # (Auto) 1.2L, Monocytes # (Auto) 0.8, Eosinophils # (Auto) 0.2, Basophils # (Auto) 0.0, Nucleated Red Blood Cells % (auto) 0.0, Anion Gap 6L, Glomerular Filtration Rate 42.0L, Calcium Level 8.3L, Total Bilirubin 4.4#H, Aspartate Amino Transf (AST/SGOT) 50H, Alanine Aminotransferase (ALT/SGPT) 25, Alkaline Phosphatase 94, Total Pro tein 5.6L, Albumin 3.0#L, Albumin/Globulin Ratio 1.2 CBC/BMP Laboratory Tests 03/13/21 12:27 03/13/21 22:12 6/3/21 06:00 Microbiology Microbiology 03/13/21 Blood Culture, Received Pending 03/13/21 Blood Culture, Received Pending 03/13/21 Stool Occult Blood (JENNIFER) - Final, Complete DELL PRECIADO MD Mar 14, 2021 12:28
[2021-03-14] MEDS ORDERED: traZODone 25MG PER 1/2 TABLET PO PRN (12:30)
[2021-03-14] MEDS: FOLIC ACID 1 MG TAB PO SCH (12:30)
--- NOTE | 2021-03-14 12:52 | CR ---
CONSULTATION DATE: 03/14/2021 REASON FOR CONSULTATION: Acute kidney injury and anemia in this lady with a history of cirrhosis and altered mentation. HISTORY OF PRESENT ILLNESS: Jyotsna is a 61-year-old female who was admitted yesterday due to altered mentation following a paracentesis. Apparently, she has been more lethargic at home even for a couple of days prior to paracentesis and was worse yesterday due to which she was sent to the Emergency Room after paracentesis of 2 liters of fluid. She was found to be anemic with a hemoglobin down to 8.4 and was given 1 unit of packed RBCs. She was also found to have worsening kidney function which was felt to be due to poor oral intake for a couple of days. Patient did receive Normal Saline 1 liter yesterday. A Nephrology consultation was requested and the patient is seen this morning. PAST MEDICAL HISTORY: Significant for: 1. History of alcoholic cirrhosis with recurrent ascites and portal hypertension. She also has a history of coagulopathy, thrombocytopenia and chronic hyponatremia as a complication of her cirrhosis. 2. Stage III chronic kidney disease. 3. History of hepatorenal syndrome. 4. Anxiety and depression. 5. Umbilical hernia. 6. Anemia. 7. Hypotension. PAST SURGICAL HISTORY: 1. Frequent paracentesis once a week. 2. History of EGD and colonoscopy. PERSONAL AND SOCIAL HISTORY: Patient quit smoking less than a year ago. She has a history of alcohol use in the past, however currently she is sober. Last drink was about one year ago. Denies any recreational drug use. FAMILY HISTORY: Significant for coronary artery disease and cancer. HOME MEDICATIONS: 1. Ciprofloxacin 500 mg daily. 2. Folic acid 1 mg daily. 3. Gabapentin 300 mg in the a.m. and 600 mg at bedtime. 4. Lactulose 15 ml t.i.d. 5. Midodrine 10 mg t.i.d. 6. Pantoprazole 40 mg daily. 7. Sertraline 50 mg daily. 8. Thiamine 100 mg daily. 9. Trazodone 50 mg at bedtime. 10.Venlafaxine ER 37.5 mg at bedtime which was added recently. ALLERGIES: Patient has no known drug allergies. REVIEW OF SYSTEMS: Patient is still not fully oriented and she was unable to tell the day correctly. She was able to tell me the month correctly though. She does feel confused at times. Denies any fever or chills. Ears, nose and throat are unremarkable. Cardiovascular system is negative for dyspnea, chest pain or leg edema. Respiratory system is negative for cough or hemoptysis. GI system is significant for heme positive stool yesterday in the Emergency Room and history of cirrhosis with recurrent ascites. She had paracentesis yesterday. system is negative for dysuria or hematuria. Musculoskeletal system is negative for any leg edema or significant arthritis. Hematological system is significant for coagulopathy and thrombocytopenia which is chronic. Psychosocial system is significant for depression and anxiety for which she has been on multiple medications and Venlafaxine was added recently. Neurologic systems is significant for a prior history of hepatic encephalopathy. No history of stroke or seizures known. Skin is negative for rash or ulcers. Endocrine system is negative for diabetes or thyroid problems. PHYSICAL EXAMINATION: GENERAL: A middle-aged female laying in bed. The patient looks jaundiced but not in any acute distress. VITAL SIGNS: Temperature is 97.3 degrees Fahrenheit, heart rate is 92 per minute and respiratory rate 16 per minute. Blood pressure 104/70 mmHg and oxygen saturation 96% on room air. HEAD AND NECK: Head is atraumatic. Neck is supple and JVD is not elevated. Pupils are equal and reactive to light, sclera are icteric. She has no oral thrush or ulcers. HEART: Heart sounds are regular. LUNGS: Clear to auscultation. ABDOMEN: Soft with mild to moderate amount of ascites. There is a dressing on the right side of the abdomen where she had paracentesis done yesterday. Bowel sounds are normal. EXTREMITIES: Without any cyanosis or clubbing. NEUROLOGIC: She is awake and able to answer questions, however she is not fully oriented. LABORATORY DATA: On admission, her labs showed a sodium of 135 and potassium 4.1, CO2 was 20, BUN 45 and creatinine 1.9, glucose 75 and calcium 9.1. Iron level was 107, saturation 113.8% and ferritin 680. Total bilirubin was 2.6 yesterday and ammonia level was 30. Albumin was 4.4. Today's labs shows BUN 40 and creatinine 1.37. Sodium 140 and potassium 4.1. CO2 is 19 and calcium 8.3. Her bilirubin is up to 4.4 today. Total protein is 5.6 and albumin is 3.0. Hemoglobin was 8.4 yesterday and it improved to 10.0 after 1 unit of packed RBC. Today, her hemoglobin is 8.9 and hematocrit 26.0. WBC count 5.3 and platelets 79,000. PROBLEMS: 1. Acute kidney injury superimposed on chronic kidney disease. Most likely as a result of volume depletion as the patient has not been fully alert and had decreased oral intake for the last 2-3 days. She did receive 1 liter of IV Normal Saline and 1 unit of packed RBCs yesterday with some improvement in her kidney function. She seems to be more alert today and able to get her nutrition by mouth. I do not feel at this point IV fluid is needed. 2. Metabolic acidosis, she does have mild metabolic acidosis and will need to watch her. If it gets any worse, then I will consider to start on sodium bicarbonate. 3. Anemia, she seems to have anemia which is probably mostly chronic but does not have any iron deficiency. She did receive 1 unit of packed RBCs and will recheck her CBC tomorrow. 4. Encephalopathy, probably toxic metabolic encephalopathy. She does not seem to have hepatic encephalopathy as ammonia level is only 30. She seems to be better today and it is probably a result of all of her medications as she has been taking for anxiety and depression. 5. Alcoholic cirrhosis with recurrent ascites. Patient already had a paracentesis done yesterday and ascites is now only mild to moderate and does not need any urgent intervention. Thank you for involving me in the care of Ms. Su. I will follow her along with you.
[2021-03-14 14:00] VITALS: BP 124/76
[2021-03-14] MEDS: cefTRIAXone SOD 1 GM in D5W MINI-BAG PLUS 50 ML IV SCH (17:22)
[2021-03-14 22:00] VITALS: BP 121/75
[2021-03-15] MEDS: PANTOPRAZOLE 40MG VIAL (C9113 PER 1) IV SCH (05:13)
[2021-03-15 06:00] VITALS: BP 112/65
[2021-03-15 06:41] LABS: BASO % 0.5 % (0.0-1.0); EOS # 0.3 10^3/uL (0.0-0.5); EOS % 5.1 % (0.0-3.0); HEMATOCRIT 26.7 % (36.0-47.0); LYMPH # 0.9 10^3/uL (1.5-5.0); LYMPH % 15.2 % (24.0-44.0); MEAN CORPUSCULAR HEMOGLOBIN 29.6 pg (27.0-33.0); MEAN CORPUSCULAR HGB CONC 33.7 g/dl (32.0-36.5); MEAN CORPUSCULAR VOLUME 87.8 fl (80.0-96.0); MONO # 0.7 10^3/uL (0.0-0.8); MONO % 12.3 % (2.0-8.0); NEUTROPHILS # 3.8 10^3/uL (1.5-8.5); NEUTROPHILS % 66.2 % (36.0-66.0); RED BLOOD COUNT 3.04 10^6/uL (4.00-5.40); WHITE BLOOD COUNT 5.7 10^3/uL (4.0-10.0)
[2021-03-15 06:43] LABS: PLATELET COUNT, AUTOMATED 86 10^3/uL (150-450)
[2021-03-15 07:04] LABS: ALBUMIN 3.2 GM/DL (3.2-5.2); BILIRUBIN,TOTAL 2.6 MG/DL (0.2-1.0); CALCIUM LEVEL 8.4 MG/DL (8.5-10.1); CREATININE FOR GFR 1.14 MG/DL (0.55-1.30); GLOMERULAR FILTRATION RATE 51.9 (>51); POTASSIUM SERUM 4.1 MEQ/L (3.5-5.1); TOTAL PROTEIN 5.6 GM/DL (6.4-8.2)
[2021-03-15] MEDS: MIDODRINE 5 MG TAB PO SCH ×3 (08:43→16:00)
[2021-03-15] MEDS: THIAMINE 100 MG TAB PO SCH (08:43)
[2021-03-15] MEDS: LACTULOSE 20 GM/30 ML SYRUP UD PO SCH ×2 (08:44→16:00)
[2021-03-15] MEDS: SODIUM BICARBONATE 325 MG TAB PO SCH ×2 (08:49→12:15)
--- NOTE | 2021-03-15 11:23 | IPN ---
PROGRESS NOTE DATE: 03/15/2021 SUBJECTIVE: Ms. Su is seen this morning on her bedside. She is feeling much better and continues to have some abdominal discomfort. She denies any nausea or vomiting. She has no dyspnea or chest pain. She seems to be slightly more alert today compared to yesterday. She was able to tell me the day and month correctly. OBJECTIVE: GENERAL: She is awake and alert. VITAL SIGNS: Temperature 97.9 degrees Fahrenheit, heart rate 85 per minute, and respiratory rate 18 per minute. Blood pressure 112/65 mmHg and oxygen saturation 96% on room air. HEAD: Atraumatic. She looks jaundiced, but not in any acute distress. NECK: Supple and without JVD or thyroid enlargement. HEART: Sounds are regular. LUNGS: Clear to auscultation. ABDOMEN: Soft and moderate amount of ascites is present. Bowel sounds are normal. EXTREMITIES: Without any cyanosis or clubbing. She has no peripheral edema. NEUROLOGIC: She is awake and able to answer questions mostly appropriately. LABORATORY DATA: Today's labs show WBC count 5.7, hemoglobin 9.0, hematocrit 26.7, platelets 86,000. Sodium 137, potassium 4.1, CO2 of 17, BUN 35, creatinine 1.14, glucose 92, and calcium 8.4. Bilirubin is down to 2.6. PROBLEMS: 1. Acute kidney injury superimposed on chronic kidney disease. Kidney function has improved significantly since admission. At this point, her oral intake seems to be adequate and she is not requiring any intravenous fluid. 2. Metabolic acidosis. Her metabolic acidosis did get worse despite improvement in kidney function. I am going to start her on oral sodium bicarbonate supplement with 325 mg q.i.d. 3. Hepatic encephalopathy. Her symptoms have improved and bilirubin is also improving. She has been on chronic lactulose therapy. 4. Anemia. Her anemia is stable at present. She was transfused with one unit of packed RBCs on admission. Since then, no active blood loss noted. 5. Disposition. The patient wants to go home; however, she will need follow-up as an outpatient for her metabolic acidosis and chronic kidney disease. She can either follow-up with her primary care physician or follow-up in our office next week.
[2021-03-15] MEDS: FOLIC ACID 1 MG TAB PO SCH (12:15)
[2021-03-15] MEDS ORDERED: SODI325T9 PO (12:29)
[2021-03-15] MEDS ORDERED: TRAZ-252 PO (12:29)
[2021-03-15] MEDS ORDERED: cefTRIAXone SOD 1 GM in D5W MINI-BAG PLUS 50 ML IV SCH (13:00)
[2021-03-15] MEDS ORDERED: GABA-282 PO (13:18)
--- NOTE | 2021-03-15 13:27 | DS.PDOC ---
Discharge Summary General Date of Admission Mar 13, 2021 at 16:06 Date of Discharge 03/15/21 Discharge Summary PROCEDURES PERFORMED DURING STAY: [None]. DISCHARGE DIAGNOSES: Acute metabolic encephalopathy due to medications NAS on CKD due to poor oral intake due to above. Metabolic acidosis. Anemia of chronic disease SECONDARY DIAGNOSIS: Decompensated alcoholic liver cirrhosis with ascites, portal hypertension, coagulopathy, thrombocytopenia, chronic hyponatremia CKD stage III , Chronic hypotension Hepatorenal syndrome, Anxiety and depression Reducible non incarcerated umbilical hernia, Anemia of chronic disease COMPLICATIONS/CHIEF COMPLAINT: Decompensation Of Cirrhosis Of Liver,Gib. HOSPITAL COURSE: 61 year old female with decompensated alcoholic cirrhosis of liver, CKD stage 3, anemia of chronic disease, anxiety and depression was at IR for her scheduled paracentesis which she gets every week where she was accompanied by her mother as she was confused and very sleepy. Mother reported t hat she has been very sleepy, sleeping almost 20 hours a day for the past 3 days has been confused and forgetful. She hasn't been able to prepare her own meals and she couldn't even dress herself. She also hasn't eaten much as she has been mostly sleeping. She had her paracentesis done with removal of 2000 ml of clear yellow fluid and was sent to the ED for evaluation. In the ED her Hb was 8.4 do wn from 9.9 earlier in the morning. She also had guaiac positive dark green stools. She was admitted for evaluation of metabolic encephalopathy and to evaluate for gastrointestinal bleeding Acute metabolic encephalopathy Due to medications likely venlafaxine in combination with trazodone and gabape ntin. Sertraline and venlafaxine was also stopped. Gabapentin dose reduced and trazodone reduced Ammonia only 30 so no hepatic encephalopathy CT head no acute events though does show diffuse atrophy more than expected for age. No signs of infection. Procalcitonin< 0.5 Possible chronic GI bleed guaiac was positive in the ED, Also stool for occult blood positive. However, her hemoglobin is close to her baseline She does have anemia of chronic disease also. She got 1 unit of PRBC Continue pantoprazole Follow up Dr Pedraza. Decompensated cirrhosis of liver with ascites, thrombocytopenia, coagulopathy, portal hypertension and as per Dr Pedraza has small varices seen in the EGD from [place] done earlier this year. Had paracentesis done today Her platelet count and INR remains close to baseline NAS on CKD stage III with chronic metabolic acidosis Resolved likely due to dehydration resolved with IVF. She has h/o hepatorenal syndrome appreciate nephrology consult. Started on bicarb tabs. Follow up with nephrology in 1 week Anemia of chronic disease Will transfuse if hemoglobin less than 8 iron profile, vit B12 and folate normal. DISCHARGE MEDICATIONS: Please see below. ALLERGIES: Please see below. PHYSICAL EXAMINATION ON DISCHARGE: VITAL SIGNS: Please see below. General Exam: Positive: Cooperative, No Acute Distress, Other (confused about recent events ) Eye Exam: Positive: PERRLA, Conjunctiva & lids normal, EOMI, Sclera icteric ENT Exam: Positive: Atraumatic, Other ENT (. Dry mucous membrane) Neck Exam: Positive: Supple; Negative: JVD, thyromegaly Chest Exam: Positive: Clear to auscultation, Normal air movement Heart Exam: Positive: Rate Normal, Regular Rhythm, Normal S1, Normal S2; Negative: Murmurs, Rubs Abdomen Exam: Positive: Normal bowel sounds, Soft; Negative: Tenderness Extremity Exam: Negative: Clubbing, Cyanosis, Edema Neuro Exam: Positive: Normal Speech, Normal Tone, Other (Moves all 4 extremities) Psych Exam: Positive: Other (oriented 2) LABORATORY DATA: Please see below. ACTIVITY: [As tolerated]. DIET: 2 gm Sodium diet, Fluid restriction 1.8 liters. DISCHARGE PLAN: Home DISPOSITION: . DISCHARGE INSTRUCTIONS: Dr Strange in [address] Ramirez 1 to 2 weeks DISCHARGE CONDITION: [Stable]. TIME SPENT ON DISCHARGE: 35 minutes. Vital Signs/I&Os Vital Signs Date Time Temp Pulse Resp B/P (MAP) Pulse Ox O2 Delivery O2 Flow Rate FiO2 03/15/21 06:00 97.9 85 18 112/65 (81) 96 Room Air I&O- Last 24 Hours up to 6 AM 03/15/21 05:59 Intake Total 1920 ml Output Total 1280 ml Balance 640 ml Laboratory Data Labs 24H Laboratory Tests 2 03/15/21 06:16: Immature Granulocyte % (Auto) 0.7, Neutrophils (%) (Auto) 66.2H, Lymphocytes (%) (Auto) 15.2L, Monocytes (%) (Auto) 12.3H, Eosinophils (%) (Auto) 5.1H, Basophils (%) (Auto) 0.5, Neutrophils # (Auto) 3.8, Lymphocytes # (Auto) 0.9L, Monocytes # (Auto) 0.7, Eosinophils # (Auto) 0.3, Basophils # (Auto) 0.0, Nucleated Red Blood Cells % (auto) 0.0, Immature Platelet Fraction 0.5, Anion Gap 9, Glomerular Filtration Rate 51.9, Calcium Level 8.4L, Total Bilirubin 2.6H, Aspartate Amino Transf (AST/SGOT) 50H, Alanine Aminotransferase (ALT/SGPT) 25, Alkaline Phosphatase 111, Total Protein 5.6L, Albumin 3.2, Albumin/Globulin Ratio 1.3 CBC/BMP Laboratory Tests 03/15/21 06:16 Microbiology Microbiology 03/13/21 Blood Culture - Preliminary, Resulted No growth after 24 hours . All specim... 03/13/21 Blood Culture - Preliminary, Resulted No growth after 24 hours . All specim... 03/13/21 Stool Occult Blood (JENNIFER) - Final, Complete Discharge Medications Scheduled Ciprofloxacin HCl (Ciprofloxacin HCl) 500 Mg Tablet, 500 MG PO DAILY, (Reported) TAKE AFTER LUNCH Folic Acid (Folic Acid) 1 Mg Tablet, 1 MG PO DAILY, (Reported) TAKES AFTER LUNCH Gabapentin (Gabapentin) 300 Mg Capsule, 300 MG PO QAM, (Reported) Gabapentin (Gabapentin) 300 Mg Capsule, 600 MG PO QHS, (Reported) Lactulose (Lactulose) 10 Gm/15 Ml Solution, 15 ML PO TID, (Reported) Midodrine HCl (Midodrine HCl) 10 Mg Tablet, 10 MG PO TID, (Reported) Pantoprazole Sodium (Pantoprazole Sodium) 40 Mg Tablet.dr, 40 MG PO DAILY, (Reported) Sodium Bicarbonate (Sodium Bicarbonate) 325 Mg Tablet, 325 MG PO QID Thiamine HCl (Thiamine HCl) 100 Mg Tablet, 100 MG PO DAILY, (Reported) Scheduled PRN Trazodone HCl (Trazodone HCl) 50 Mg Tablet, 25 MG PO QHSP PRN for SLEEP Allergies Coded Allergies: No Known Allergies (Unverified , 03/28/20) DELL PRECIADO MD Mar 15, 2021 13:27
== END 2021-03-15 16:31 | disposition home or self-care (01) | DRG 52 ==
LOC: M ED 12:00 → M ED INP 16:06 → ENRESERV 16:28 → M MSPAV 17:46
PROVIDERS: ADMIT Internal Medicine Nephrology; ATTEND Internal Medicine Nephrology
PROC: 30233N1 Transfusion of Nonautologous Red Blood Cells into Peripheral Vein, Percutaneous Approach (ICD-10-PCS; principal; 2021-03-13)
DX: G92 Toxic encephalopathy (principal); K76.7 Hepatorenal syndrome; I95.89 Other hypotension; E87.2 Acidosis; D68.9 Coagulation defect, unspecified; N17.9 Acute kidney failure, unspecified; N18.30 Chronic kidney disease, stage 3 unspecified; D69.59 Other secondary thrombocytopenia; K76.6 Portal hypertension; E87.1 Hypo-osmolality and hyponatremia; K70.31 Alcoholic cirrhosis of liver with ascites; D63.8 Anemia in other chronic diseases classified elsewhere; F41.9 Anxiety disorder, unspecified; F32.9 Major depressive disorder, single episode, unspecified; K42.9 Umbilical hernia without obstruction or gangrene; Z79.899 Other long term (current) drug therapy; Z87.891 Personal history of nicotine dependence

== ENCOUNTER → 2021-03-13 | Outpatient (CLI) | payer OTHER ==
[~2021-03-13] MED LIST changes: +SODI325T9 PO
[2021-03-13 11:06] LABS: BASO # 0.1 10^3/uL (0.0-0.2); BASO % 0.8 % (0.0-1.0); EOS # 0.2 10^3/uL (0.0-0.5); EOS % 2.3 % (0.0-3.0); HEMATOCRIT 29.4 % (36.0-47.0); HEMOGLOBIN 9.9 g/dl (12.0-15.5); LYMPH # 1.1 10^3/uL (1.5-5.0); LYMPH % 16.5 % (24.0-44.0); MEAN CORPUSCULAR HEMOGLOBIN 30.5 pg (27.0-33.0); MEAN CORPUSCULAR HGB CONC 33.7 g/dl (32.0-36.5); MEAN CORPUSCULAR VOLUME 90.5 fl (80.0-96.0); MONO # 0.7 10^3/uL (0.0-0.8); MONO % 10.1 % (2.0-8.0); NEUTROPHILS # 4.5 10^3/uL (1.5-8.5); NEUTROPHILS % 69.5 % (36.0-66.0); PLATELET COUNT, AUTOMATED 107 10^3/uL (150-450); RED BLOOD COUNT 3.25 10^6/uL (4.00-5.40); WHITE BLOOD COUNT 6.4 10^3/uL (4.0-10.0)
[2021-03-13 11:16] LABS: INR 1.65; PROTHROMBIN TIME 19.9 SECONDS (12.5-14.3)
[2021-03-13 11:17] LABS: PARTIAL THROMBOPLASTIN TIME 38.5 SECONDS (24.2-38.5)
[2021-03-13 11:20] VITALS: BP 117/67
[2021-03-13 11:32] LABS: ALBUMIN 3.2 GM/DL (3.2-5.2); BILIRUBIN,DIRECT 1.1 MG/DL (0.0-0.2); BILIRUBIN,TOTAL 2.6 MG/DL (0.2-1.0); CALCIUM LEVEL 8.7 MG/DL (8.5-10.1); CREATININE FOR GFR 1.98 MG/DL (0.55-1.30); GLOMERULAR FILTRATION RATE 27.5 (>51); POTASSIUM SERUM 4.1 MEQ/L (3.5-5.1); TOTAL PROTEIN 6.7 GM/DL (6.4-8.2)
--- NOTE | 2021-03-13 15:25 | REP ---
INDICATION: ASCITES. COMPARISON: None. TECHNIQUE: The procedure was performed under the direct supervision of Dr. Conn. The risks and benefits of the procedure were explained to the patient and informed consent was obtained. The largest pocket of fluid was localized in the right flank using ultrasound guidance. The skin was prepped and draped in a sterile fashion. 1% lidocaine was used as a local anesthetic. Using ultrasound guidance an 8-Lithuanian multi side-hole catheter was inserted using trocar technique.4100 cc of yellow fluid was withdrawn and discarded. The patient tolerated the procedure well and there were no immediate complications. After the appropriate amount of monitored convalescence, the patient was discharged from the department. FINDINGS: None IMPRESSION: Ultrasound-guided paracentesis [id number] mL of yellow fluid. <Electronically signed by Nathanael Garduno > 03/13/21 1520 <Electronically signed by James Conn > 03/13/21 1521
== END ==
LOC: M IRPRO 10:02
PROVIDERS: ATTEND Internal Medicine Gastroenterology
DX: K70.31 Alcoholic cirrhosis of liver with ascites (principal)
CPT/HCPCS: 49083; 80048; 80076; 85025; 85610; 85730; 96365; P9047

== ENCOUNTER → 2021-03-18 | Outpatient (CLI) | payer OTHER ==
[~2021-03-18] MED LIST changes: +SODI325T9 PO; +SODIUM BICARBONATE 8.4% INJ 50MEQ 50 ML VIAL As Ordered ONE; +VENL37.598 PO
[2021-03-18 12:35] VITALS: BP 118/75
[2021-03-18 12:45] LABS: BASO # 0.1 10^3/uL (0.0-0.2); BASO % 0.8 % (0.0-1.0); EOS # 0.3 10^3/uL (0.0-0.5); EOS % 3.3 % (0.0-3.0); HEMATOCRIT 28.4 % (36.0-47.0); HEMOGLOBIN 9.6 g/dl (12.0-15.5); LYMPH % 13.3 % (24.0-44.0); MEAN CORPUSCULAR HEMOGLOBIN 30.1 pg (27.0-33.0); MEAN CORPUSCULAR HGB CONC 33.8 g/dl (32.0-36.5); MONO # 1.1 10^3/uL (0.0-0.8); MONO % 14.7 % (2.0-8.0); PLATELET COUNT, AUTOMATED 115 10^3/uL (150-450); RED BLOOD COUNT 3.19 10^6/uL (4.00-5.40); WHITE BLOOD COUNT 7.5 10^3/uL (4.0-10.0)
[2021-03-18 12:50] VITALS: BP 118/75
[2021-03-18 12:59] LABS: INR 1.72; PROTHROMBIN TIME 20.5 SECONDS (12.5-14.3)
[2021-03-18 13:00] LABS: PARTIAL THROMBOPLASTIN TIME 40.4 SECONDS (24.2-38.5)
[2021-03-18 13:06] VITALS: BP 104/67
[2021-03-18 13:11] LABS: ALBUMIN 3.2 GM/DL (3.2-5.2); BILIRUBIN,TOTAL 2.1 MG/DL (0.2-1.0); CALCIUM LEVEL 8.4 MG/DL (8.5-10.1); CREATININE FOR GFR 1.23 MG/DL (0.55-1.30); GLOMERULAR FILTRATION RATE 47.6 (>51); POTASSIUM SERUM 3.6 MEQ/L (3.5-5.1); TOTAL PROTEIN 6.2 GM/DL (6.4-8.2)
[2021-03-18 13:21] VITALS: BP 102/68
[2021-03-18 13:28] VITALS: BP 99/68
[2021-03-18 13:35] VITALS: BP 96/51
--- NOTE | 2021-03-18 18:04 | REP ---
INDICATION: ASCITES The patient has a history of ascites COMPARISON: None. TECHNIQUE: The procedure was performed by HECTOR Alfredo, under the direct supervision of Dr. Conn The risks and benefits of the procedure were explained to the patient and an informed consent was obtained both verbally and written. Directly prior to the start of the procedure a formal time-out was completed in the procedure room. The largest pocket of fluid was localized in the right flank using ultrasound guidance. The skin was prepped and draped in a sterile fashion. Eleven ML of buffered lidocaine was used as a local anesthetic. An 8-Lux[place]bourg[place] multi side-hole catheter was inserted using trocar technique. FINDINGS: 1900 mL of yellow ascites was removed and discarded. The patient tolerated the procedure well and there were no immediate complications. After the appropriate amount of monitored convalescence, the patient was discharged from the department. IMPRESSION: Ultrasound-guided paracentesis with removal of 1900 mL of ascites. <Electronically signed by Yu Santiago > 03/18/21 1621 <Electronically signed by James Conn > 03/18/21 [id number]
== END ==
LOC: M IRPRO 12:02
PROVIDERS: ATTEND Internal Medicine Gastroenterology
DX: K70.31 Alcoholic cirrhosis of liver with ascites (principal)
CPT/HCPCS: 49083; 80048; 80076; 85025; 85610; 85730; 96365; P9047

== ENCOUNTER → 2021-03-21 | Outpatient (REF) | payer OTHER ==
[~2021-03-21] MED LIST changes: +BACTDSTA PO; +CEPH500C PO; +COMMENTS; -SODIUM BICARBONATE 8.4% INJ 50MEQ 50 ML VIAL As Ordered ONE
[2021-03-22 09:53] LABS: APPEARANCE, URINE CLEAR (CLEAR); BACTERIA, URINE AUTO 1+ (NEGATIVE); BILIRUBIN, URINE AUTO NEGATIVE (NEGATIVE); BLOOD, URINE BLOOD 1+ (NEGATIVE); COLOR, URINE YELLOW (YELLOW); GLUCOSE, URINE (UA) AUTO NEGATIVE (NEGATIVE); KETONE, URINE AUTO NEGATIVE (NEGATIVE); LEUKOCYTE ESTERASE, URINE AUTO 2+ (NEGATIVE); NITRITE, URINE AUTO NEGATIVE (NEGATIVE); PROTEIN, URINE AUTO NEGATIVE (NEGATIVE); RBC, URINE AUTO 1 /HPF (0-3); SPECIFIC GRAVITY URINE AUTO 1.013 (1.002-1.035); SQUAMOUS EPITHELIAL CELL UR AU 2 /HPF (0-6); UROBILINOGEN, URINE AUTO 0.2 mg/dL (0.0-2.0); WBC, URINE AUTO 25 /HPF (0-3)
== END ==
LOC: M LAB REF 08:25
PROVIDERS: ATTEND Pediatrics
DX: R30.9 Painful micturition, unspecified (principal)

== ENCOUNTER → 2021-03-26 | Outpatient (CLI) | payer OTHER ==
--- NOTE | 2021-03-27 03:20 | REP ---
INDICATION: PAIN IN LEFT FOOT COMPARISON: None. TECHNIQUE: AP, lateral, bilateral oblique views left foot. FINDINGS: Flattening with erosive changes noted at the head of the 2nd metatarsal with associated joint space irregularity including cortical irregularity at the base of the proximal phalanx and possible small periarticular calcifications. Broad-based osteophyte noted along the medial distal aspect of the 1st metatarsal bone with underlying periarticular sclerosis and joint space narrowing. Remainder of the examination is relatively age-appropriate and within normal limits. IMPRESSION: Changes at the 1st and 2nd metatarsophalangeal joints may represent old injuries and or arthritic deformities. <Electronically signed by Harshal Vaughn > 03/27/21 [id number]
--- NOTE | 2021-03-27 03:29 | REP ---
INDICATION: PAIN IN LEFT FOOT COMPARISON: None. TECHNIQUE: AP, lateral, bilateral oblique views. FINDINGS: Generalized soft tissue swelling is suggested. No acute fracture or dislocation. Ankle mortise appears intact. IMPRESSION: Generalized soft tissue swelling. No obvious acute fracture or dislocation. <Electronically signed by Harshal Vaughn > 03/27/21 [id number]
--- NOTE | 2021-03-27 03:32 | REP ---
INDICATION: PAIN IN LEFT FOOT COMPARISON: None. TECHNIQUE: Frontal view of the chest with multiple views of the left hemithorax. Five total views. FINDINGS: Frontal view of the chest demonstrates no acute cardiopulmonary process, contusion, effusion, or pneumothorax. Multiple views of the left hemithorax demonstrates no acute rib fracture/injury or pathology. IMPRESSION: No obvious acute rib fracture or pathology appreciated. <Electronically signed by Harshal Vaughn > 03/27/21 [id number]
== END ==
LOC: M RAD 15:14
PROVIDERS: ATTEND Pediatrics
DX: M79.672 Pain in left foot (principal); W19.XXXA Unspecified fall, initial encounter

== ENCOUNTER 2021-04-01 12:08 | Inpatient (IN) | payer OTHER ==
[~2021-04-01] VITALS: Ht 154.9 cm; Wt 63.6 kg
[~2021-04-01 12:08] MED LIST changes: -BACTDSTA PO; -CEPH500C PO; -COMMENTS
[2021-04-01 13:26] LABS: BASO # 0.1 10^3/uL (0.0-0.2); BASO % 0.8 % (0.0-1.0); EOS # 0.3 10^3/uL (0.0-0.5); EOS % 4.1 % (0.0-3.0); HEMATOCRIT 27.1 % (36.0-47.0); LYMPH # 0.6 10^3/uL (1.5-5.0); MEAN CORPUSCULAR HEMOGLOBIN 30.1 pg (27.0-33.0); MEAN CORPUSCULAR HGB CONC 33.2 g/dl (32.0-36.5); MEAN CORPUSCULAR VOLUME 90.6 fl (80.0-96.0); MONO # 0.7 10^3/uL (0.0-0.8); MONO % 9.4 % (2.0-8.0); NEUTROPHILS % 77.1 % (36.0-66.0); PLATELET COUNT, AUTOMATED 112 10^3/uL (150-450); RED BLOOD COUNT 2.99 10^6/uL (4.00-5.40); WHITE BLOOD COUNT 7.7 10^3/uL (4.0-10.0)
[2021-04-01 13:38] LABS: INR 1.57; PARTIAL THROMBOPLASTIN TIME 36.9 SECONDS (24.2-38.5); PROTHROMBIN TIME 19.1 SECONDS (12.5-14.3)
[2021-04-01 13:55] LABS: ALBUMIN 3.5 GM/DL (3.2-5.2); BILIRUBIN,DIRECT 1.2 MG/DL (0.0-0.2); BILIRUBIN,TOTAL 3.7 MG/DL (0.2-1.0); CK-MB VALUE MASS 3.3 NG/ML (<3.6); CREATININE FOR GFR 1.85 MG/DL (0.55-1.30); GLOMERULAR FILTRATION RATE 29.7 (>51); MB/CK RELATIVE INDEX 4.52 (< OR =4); POTASSIUM SERUM 3.3 MEQ/L (3.5-5.1); THYROID STIMULATING HORMONE 2.8 uIU/ML (0.358-3.740); TOTAL PROTEIN 6.7 GM/DL (6.4-8.2); TROPONIN I 0.03 NG/ML (< 0.10)
[2021-04-01] MEDS ORDERED: LACTULOSE 20 GM/30 ML SYRUP UD PO ONE (14:05)
--- NOTE | 2021-04-01 14:34 | REP ---
INDICATION: AMS. COMPARISON: 03/26/2021. TECHNIQUE: Single portable AP view of the chest was performed. FINDINGS: There is no acute infiltrate or pulmonary edema. Lungs are clear. The heart is not significantly enlarged. The mediastinal silhouette is unremarkable. The visualized osseous structures are intact. IMPRESSION: No acute pulmonary disease. <Electronically signed by James Conn > 04/01/21 [id number]
[2021-04-01] MEDS ORDERED: NS 1,000 ML IV ONE (15:15)
--- NOTE | 2021-04-01 15:51 | ECGEPIP ---
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
[2021-04-01 16:43] LABS: RSV AMPLIFICATION NEGATIVE (NEGATIVE)
[2021-04-01] MEDS ORDERED: KCL 10MEQ/100ML SWI (KRUN) 10 MEQ in IV 1 EA IV ONE (17:00)
[2021-04-01] MEDS ORDERED: LACTULOSE 20 GM/30 ML SYRUP UD PO SCH (17:00)
[2021-04-01] MEDS ORDERED: cefTRIAXone SOD 1 GM in D5W MINI-BAG PLUS 50 ML IV SCH (18:00)
[2021-04-01] MEDS ORDERED: SODI325T9 PO (18:09)
[2021-04-01] MEDS ORDERED: TRAZ-252 PO (18:09)
[2021-04-01] MEDS ORDERED: GABA-282 PO (18:09)
[2021-04-01] MEDS ORDERED: CEPH500C PO (18:24)
[2021-04-01] MEDS ORDERED: COMMENTS (18:24)
[2021-04-01] MEDS ORDERED: BACTDSTA PO (18:24)
[2021-04-01 21:15] VITALS: BP 141/89
== END 2021-04-01 21:37 | disposition left against medical advice (07) | DRG 280 ==
LOC: M ED 12:08 → M ED INP 16:36
PROVIDERS: ADMIT Internal Medicine Nephrology; ATTEND Internal Medicine Nephrology
DX: K70.31 Alcoholic cirrhosis of liver with ascites (principal); N17.9 Acute kidney failure, unspecified; F31.9 Bipolar disorder, unspecified; I10 Essential (primary) hypertension

== ENCOUNTER → 2021-04-02 | Outpatient (CLI) | payer OTHER ==
[~2021-04-02] MED LIST changes: +BACTDSTA PO; +BOOSLIQ77 PO; +CEPH500C PO; +COMMENTS; +DOXY100T PO; +SODIUM BICARBONATE 8.4% INJ 50MEQ 50 ML VIAL As Ordered ONE
[2021-04-02 11:47] VITALS: BP 106/67
--- NOTE | 2021-04-02 16:22 | REP ---
INDICATION: ASCITES The patient has a history of ascites COMPARISON: None. TECHNIQUE: The procedure was performed by HECTOR Alfredo, under the direct supervision of Dr. Conn The risks and benefits of the procedure were explained to the patient and an informed consent was obtained both verbally and written. Directly prior to the start of the procedure a formal time-out was completed in the procedure room. The largest pocket of fluid was localized in the left flank using ultrasound guidance. The skin was prepped and draped in a sterile fashion. Eleven ML of buffered lidocaine was used as a local anesthetic. An 8-Persian multi side-hole catheter was inserted using trocar technique. FINDINGS: 6000 mL of salmon colored ascites was removed and discarded. The patient tolerated the procedure well and there were no immediate complications. After the appropriate amount of monitored convalescence, the patient was discharged from the department. IMPRESSION: Ultrasound-guided paracentesis with removal of 6000 mL of ascites. <Electronically signed by Yu Santiago > 04/02/21 1995 <Electronically signed by James Conn > 04/02/21 [id number]
== END ==
LOC: M IRPRO 10:15
PROVIDERS: ATTEND Internal Medicine Gastroenterology
DX: K70.31 Alcoholic cirrhosis of liver with ascites (principal)
CPT/HCPCS: 49083; 96365; P9047

== ENCOUNTER → 2021-04-05 | Outpatient (CLI) | payer OTHER ==
[~2021-04-05] MED LIST changes: -DOXY100T PO; -SODIUM BICARBONATE 8.4% INJ 50MEQ 50 ML VIAL As Ordered ONE
[2021-04-05 13:05] VITALS: BP 131/68
--- NOTE | 2021-04-05 15:42 | REP ---
INDICATION: ASCITES. COMPARISON: None. TECHNIQUE: The procedure was performed under the direct supervision of Dr. Conn. The risks and benefits of the procedure were explained to the patient and informed consent was obtained. The largest pocket of fluid was localized in the right flank using ultrasound guidance. The skin was prepped and draped in a sterile fashion. 1% lidocaine was used as a local anesthetic. Using ultrasound guidance, an 8-Amharic multi side-hole catheter was inserted using trocar technique.5000 cc of cloudy yellow fluid was withdrawn and discarded. The patient tolerated the procedure well and there were no immediate complications. After the appropriate amount of monitored convalescence, the patient was discharged from the department. FINDINGS: None IMPRESSION: Ultrasound-guided paracentesis [id number] cc of cloudy yellow fluid. <Electronically signed by Nathanael Garduno > 04/05/21 1519 <Electronically signed by James Conn > 04/05/21 1539
== END ==
LOC: M IRPRO 10:11
PROVIDERS: ATTEND Internal Medicine Gastroenterology
DX: K74.60 Unspecified cirrhosis of liver (principal); R18.8 Other ascites

== ENCOUNTER 2021-04-08 14:27 | Observation (INO) | payer OTHER ==
[2021-04-08] VITALS (11 sets, daily range): BP systolic 78–91; BP diastolic 39–84
[~2021-04-08] VITALS: Ht 154.9 cm; Wt 69.7 kg
[~2021-04-08 14:27] MED LIST changes: -BOOSLIQ77 PO; -DOXY100T PO; -LIDOCAINE 1% MDV 20ML VIAL As Ordered ONE; -SODIUM BICARBONATE 8.4% INJ 50MEQ 50 ML VIAL As Ordered ONE
[2021-04-08] MEDS ORDERED: FURO40TA2 PO (15:10)
[2021-04-08] MEDS ORDERED: BOOSLIQ77 PO (15:10)
[2021-04-08 16:01] LABS: RSV AMPLIFICATION NEGATIVE (NEGATIVE)
[2021-04-08] MEDS ORDERED: ACETAMINOPHEN TAB 650MG DOSE (2X325MG) PO PRN (16:05)
--- NOTE | 2021-04-08 16:56 | HPEPDOC ---
General Date of Admission 04/08/21 Date of Service: Apr 08, 2021 Chief Complaint The patient is a 61-year-old female admitted with a reason for visit of Weakness/Abnormal Labs. Source: Patient Exam Limitations: No limitations Timing/Duration: Day(s) History of Present Illness Patient is 61 years old female with past medical history of decompensated alcoholic cirrhosis of liver was at IR today for her scheduled paracentesis. After paracentesis patient was found to have hemoglobin 6.8. After paracentesis patient received 50 g of albumin. Patient stated that she did not notice any blo od in the stool, but reported intermittent black stool. She stated that she was compliant with her medications, and takes lactulose daily. In ER patient was found to have blood pressure of 95/65, hemoglobin 6.8, no leukocytosis, sodium level 129, potassium 3, creatinine 2.1, bilirubin 2.2, AST 92. Stool for occult blood was negative Home Medications Scheduled Ciprofloxacin HCl (Ciprofloxacin HCl) 500 Mg Tablet, 500 MG PO DAILY, (Reported) TAKE AFTER LUNCH Folic Acid (Folic Acid) 1 Mg Tablet, 1 MG PO DAILY, (Reported) Furosemide (Furosemide) 40 Mg Tablet, 40 MG PO BID, (Reported) Gabapentin (Gabapentin) 300 Mg Capsule, 300 MG PO BID, (Reported) Lactose-Reduced Food (Boost Plus) 237 Ml Liquid, 237 ML PO DAILY, (Reported) Lactulose (Lactulose) 10 Gm/15 Ml Solution, 15 ML PO TID, (Reported) Midodrine HCl (Midodrine HCl) 10 Mg Tablet, 10 MG PO TID, (Reported) Pantoprazole Sodium (Pantoprazole Sodium) 40 Mg Tablet.dr, 40 MG PO DAILY, (Reported) Sodium Bicarbonate (Sodium Bicarbonate) 325 Mg Tablet, 325 MG PO QID, (Reported) Thiamine HCl (Thiamine HCl) 100 Mg Tablet, 100 MG PO DAILY, (Reported) Trazodone HCl (Trazodone HCl) 50 Mg Tablet, 25 MG PO QHS, (Reported) Allergies Coded Allergies: No Known Allergies (Unverified , 03/28/20) Past Medical History Medical History Decompensated alcoholic liver cirrhosis with ascites, portal hypertension, coagulopathy, thrombocytopenia, chronic hyponatremia CKD stage III , Hepatorenal syndrome, Anxiety and depression Reducible non incarcerated umbilical hernia, Anemia of chronic disease, hypotension requiring Levophed drip during admission in November 2020 Surgical History Multiple paracenteses EGD and colonoscopy at [place] Surgical History Multiple paracenteses EGD and colonoscopy at [place] Family History Father CAD. Maternal uncle, cancer Social History * Smoker: former Smoker Alcohol: sober Drugs: denies A-FIB/CHADSVASC A-FIB History Current/History of A-Fib/PAF?: No Current PO Anticoag Therapy: No Review of Systems Constitutional: Reports: Weakness, Fatigue; Denies: Chills, Fever Eyes: Denies: Pain ENT: Denies: Head Aches Skin: Denies: Rash, Lesions Pulmonary: Denies: Dyspnea, Cough Cardiovascular: Denies: Chest Pain Gastrointestinal: Denies: Nausea Genitourinary: Denies: Dysuria Hematologic: Denies: Bruising Endocrine: Denies: Polydipsia Musculoskeletal: Denies: Neck Pain Neurological: Denies: Weakness Psych: Reports: Mood Normal Physical Examination General Exam: Positive: Alert, Cooperative Eye Exam: Positive: PERRLA ENT Exam: Positive: Atraumatic Neck Exam: Positive: Supple, JVD Chest Exam: Positive: Clear to auscultation Heart Exam: Positive: Rate Normal Telemetry: Positive: No significant arrhythmia Abdomen Exam: Positive: Normal bowel sounds Extremity Exam: Positive: Swelling Skin Exam: Positive: Nl turgor and temperature Neuro Exam: Positive: Cranial Nerves 3-12 NL Psych Exam: Positive: Mental status NL Vital Signs Vital Signs Date Time Temp Pulse Resp B/P (MAP) Pulse Ox O2 Delivery O2 Flow Rate FiO2 04/08/21 14:40 98.7 74 22 96/52 (67) 99 Laboratory Data Labs 24H Laboratory Tests 2 04/08/21 14:42: Coronavirus (COVID-19)(PCR) NEGATIVE, Influenza Type A (RT-PCR) NEGATIVE, Influenza Type B (RT-PCR) NEGATIVE, Respiratory Syncytial Virus (PCR) NEGATIVE Assessment/Plan Patient is 61 years old female with past medical history of decompensated alcoholic cirrhosis of liver was at IR today for her scheduled paracentesis. After paracentesis patient was found to have hemoglobin 6.8. Patient stated that she did not notice any blood in the stool, but reported intermittent black stool. She stated that she was compliant with her medications, and takes lactulose daily. In ER patient was found to have blood pressure of 95/65, hemoglobin 6.8, no leukocytosis, sodium level 129, potassium 3, creatinine 2.1, bilirubin 2.2, AST 92 Problems (1) Anemia Status: Acute Problem Text: Multifactorial, iron deficient anemia combined with anemia of chronic diseases secondary to decompensated liver cirrhosis and myelosuppression Stool for blood was negative, will repeat stool for occult blood 2 units of blood was ordered by ER physician H&H every 6 hours Iron supplements We'll check B12 and folate (2) Ascites due to alcoholic cirrhosis Status: Chronic Problem Text: Patient had elective paracentesis today Continue ciprofloxacin as a prophylaxis of SBP Patient has significant leg swelling Will check BNP, added spironolactone to the medical regimen, continue Lasix IV (3) Weakness Status: Chronic Problem Text: Most likely secondary to decompensated liver cirrhosis and anemia PT/OT (4) Decompensation of cirrhosis of liver Status: Chronic Problem Text: Follow-up with GI team in the outpatient settings Lasix IV, started spironolactone Continue lactulose (5) Hyponatremia Status: Chronic Problem Text: Most likely secondary to decompensated liver cirrhosis and ascites Fluid restriction to 1500 mL We'll check urine lites, plasma osmolality and urine osmolality (6) Acute kidney injury superimposed on CKD Status: Acute Problem Text: Most likely secondary to intravascular depletion superimposed with anemia Continue to monitor Plan / VTE VTE Prophylaxis Ordered?: No VTE Exclusion Pharmacological: Bleeding Risk AYAAN KLEIN DO Apr 08, 2021 16:56
[2021-04-08] MEDS ORDERED: POTASSIUM CHLORIDE 10 MEQ SR TABLET PO ONE (17:00)
[2021-04-08] MEDS: LACTULOSE 20 GM/30 ML SYRUP UD PO SCH ×2 (18:04→21:16)
[2021-04-08] MEDS: MIDODRINE 5 MG TAB PO SCH (18:05)
[2021-04-08] MEDS: FUROSEMIDE 40MG/4ML VIAL (J1940) IV SCH ×2 (18:05→18:35)
[2021-04-08] MEDS ORDERED: traMADol 50 MG TAB PO PRN (18:35)
[2021-04-08] MEDS ORDERED: NS 500 ML IV ONE (19:40)
[2021-04-08 20:23] LABS: HEMATOCRIT 23.6 % (36.0-47.0); HEMOGLOBIN 7.8 g/dl (12.0-15.5)
[2021-04-08] MEDS: traZODone 25MG PER 1/2 TABLET PO SCH (21:17)
[2021-04-08] MEDS: GABAPENTIN 300 MG CAP PO SCH (21:17)
[2021-04-08] MEDS: IRON POLYSAC (NIFEREX) 150 MG CAP PO SCH (21:17)
[2021-04-08] MEDS: SODIUM BICARBONATE 325 MG TAB PO SCH (21:17)
--- NOTE | 2021-04-08 22:40 | ECGEPIP ---
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
[2021-04-09] VITALS (21 sets, daily range): BP systolic 78–92; BP diastolic 46–60
[2021-04-09] MEDS ORDERED: NS 500 ML IV ONE (03:00)
[2021-04-09 03:02] LABS: HEMATOCRIT 27.5 % (36.0-47.0); HEMOGLOBIN 9.2 g/dl (12.0-15.5)
[2021-04-09 06:22] LABS: HEMATOCRIT 25.4 % (36.0-47.0); HEMOGLOBIN 8.6 g/dl (12.0-15.5); MEAN CORPUSCULAR HEMOGLOBIN 30.6 pg (27.0-33.0); MEAN CORPUSCULAR HGB CONC 33.9 g/dl (32.0-36.5); MEAN CORPUSCULAR VOLUME 90.4 fl (80.0-96.0); RED BLOOD COUNT 2.81 10^6/uL (4.00-5.40); WHITE BLOOD COUNT 6.6 10^3/uL (4.0-10.0)
[2021-04-09 06:47] LABS: ALBUMIN 3.1 GM/DL (3.2-5.2); BILIRUBIN,TOTAL 3.1 MG/DL (0.2-1.0); CALCIUM LEVEL 7.6 MG/DL (8.5-10.1); CREATININE FOR GFR 1.8 MG/DL (0.55-1.30); GLOMERULAR FILTRATION RATE 30.7 (>51); MAGNESIUM LEVEL 1.9 MG/DL (1.8-2.4); PLATELET COUNT, AUTOMATED 69 10^3/uL (150-450); POTASSIUM SERUM 3.1 MEQ/L (3.5-5.1); TOTAL PROTEIN 5.1 GM/DL (6.4-8.2)
[2021-04-09] MEDS ORDERED: POTASSIUM CHLORIDE 10 MEQ SR TABLET PO ONE (08:00)
[2021-04-09] MEDS: FUROSEMIDE 40MG/4ML VIAL (J1940) IV SCH ×2 (08:00)
[2021-04-09] MEDS: SODIUM BICARBONATE 325 MG TAB PO SCH ×4 (08:47→20:55)
[2021-04-09] MEDS: PANTOPRAZOLE 40MG TAB (PROTONIX) PO SCH (08:48)
[2021-04-09] MEDS: IRON POLYSAC (NIFEREX) 150 MG CAP PO SCH ×2 (08:48→20:56)
[2021-04-09] MEDS: GABAPENTIN 300 MG CAP PO SCH ×2 (08:48→20:55)
[2021-04-09] MEDS: MIDODRINE 5 MG TAB PO SCH ×3 (08:48→16:20)
[2021-04-09] MEDS: THIAMINE 100 MG TAB PO SCH (08:48)
[2021-04-09] MEDS: FOLIC ACID 1 MG TAB PO SCH (08:48)
[2021-04-09] MEDS: LACTULOSE 20 GM/30 ML SYRUP UD PO SCH ×3 (08:49→20:55)
[2021-04-09] MEDS ORDERED: DOXYCYCLINE HYCLATE 100MG TABLET PO SCH (09:00)
[2021-04-09] MEDS ORDERED: SPIRONOLACTONE 50 MG TAB PO SCH (09:00)
[2021-04-09 09:39] LABS: FOLATE > 24.0 NG/ML (>5.4); VITAMIN B12 LEVEL 1511 PG/ML (247-911)
[2021-04-09] MEDS: DOXYCYCLINE HYCLATE 100MG TABLET PO SCH ×2 (09:48→17:57)
--- NOTE | 2021-04-09 12:17 | IPNPDOC ---
Text Note Date of Service The patient was seen on 04/09/21. NOTE Subjective: Patient is 61 year old female with a PMHx of Alcoholic cirrhosis (received weekly paracentesis; Ascites, Portal HTN, Coagulopathy, Thrombocyt openia, Chronic Hyponatremia), Chronic Hypotension (on Midodrine), CKD3 (Hx of Hepatorenal syndrome), AOCD, Anxiety / Depression, who had scheduled paracentesis on 04/08. Patient had become hypotensive after the procedure. Hospitalist service was called for further evaluation and treatment. Of note, patient typically gets albumin infusions during her paracentesis procedures, however, did not receive any albumin this time. Patient was seen and examined at the bedside. Patient was seen ambulating in the room. Denies any lightheadedness or dizziness. Patient was advised to sit back down in bed was found to still be hypotensive with systolic blood pressures in the 80s. Patient denies any chest pain, shortness breath, palpitations. Denies any abdominal pain. Does report lower extremity swelling. Denies any nausea, vomiting, abdominal pain, diarrhea, or urinary discomfort. Objective: Vitals (See below) General: Patient was ambulating in the room, appeared comfortable, AAOx3 HEENT: NC, AT CVS: +S1S2 Lungs: Fair air entry b/l, -w/r/r Abdomen: Soft, mildly distended, nontender Extremities: 2-3+ pitting edema bilaterally, - Calf tenderness Skin: Left lower extremity with erythema, warmth and mild tenderness Imaging: Paracentesis US 04/02: Ultrasound-guided paracentesis with removal of 6000 mL of ascites. Paracentesis US 04/05: Ultrasound-guided paracentesis [id number] cc of cloudy yellow fluid. Paracentesis US 04/08: Ultrasound-guided paracentesis with removal of 4700 mL of cloudy yellow ascites. Assessment and plan: Anemia - likely 2/2 AOCD / Iron deficiency, myelosuppression, - Patient does not experience any evidence of bleeding - Hg has improved appropriately - s/p 2 unit PRBC - Will continue to follow trend Ascites - likely 2/2 decompensated liver cirrhosis - Patient has received 3 Paracentesis procedures over the last 7 days; continue to fluid removal of approximately 16 L - c/w Fluid restriction - c/w Ciprofloxacin for SBP prophylaxis - Will hold Furosemide / Spironolactone for 24 hours (re: Still hypotensive) Alcoholic liver cirrhosis - c/w Lactulose - c/w Thiamine, Folate Chronic hypotension - c/w Midodrine 10 TID - Will continue with Albumin infusion Chronic weakness - Will order PT / OT Chronic hyponatremia - Patient has hyponatremia dating back to 2019 - Improving currently with fluids; diuresis was not administered since arrival - c/w Fluid restrictions NAS on CKD - likely 2/2 pre-renal etiology 2/2 decompensated cirrhosis - Kidney function has improved from yesterday after diuresis and albumin infusion - Will continue to follow - Will hold diuretics for < 24 hours Chronic metabolic acidosis - c/w Sodium bicarbonate (based on outpatient regimen) SSTI of LLE - No leukocytosis - No evidence of fevers - Left lower extremity with erythema, warmth and tenderness - Will add Doxycycline for coverage of MRSA GI prophylaxis - c/w Protonix DVT prophylaxis - c/w TEDs / Sequentials Disposition: - Awaiting clinical improvement VSTopher, I+O VSTopher I+O Laboratory Tests 04/08/21 20:06 04/09/21 02:57 04/09/21 05:46 Vital Signs Date Time Temp Pulse Resp B/P (MAP) Pulse Ox O2 Delivery O2 Flow Rate FiO2 04/09/21 11:08 97.2 56 18 82/54 100 Room Air I&O- Last 24 Hours up to 6 AM0 04/09/21 06:00 Intake Total 1370 ml Output Total 900 ml Balance 470 ml СЕРГЕЙ FAULKNER MD Apr 09, 2021 12:17
[2021-04-09] MEDS: CIPROFLOXACIN 500MG TABLET PO SCH (12:27)
[2021-04-09 13:12] LABS: HEMATOCRIT 23.9 % (36.0-47.0); HEMOGLOBIN 8.1 g/dl (12.0-15.5)
[2021-04-09 13:45] LABS: CALCIUM LEVEL 7.7 MG/DL (8.5-10.1); CREATININE FOR GFR 1.74 MG/DL (0.55-1.30); GLOMERULAR FILTRATION RATE 31.9 (>51); MAGNESIUM LEVEL 2.1 MG/DL (1.8-2.4); POTASSIUM SERUM 3.4 MEQ/L (3.5-5.1)
[2021-04-09 18:01] LABS: HEMATOCRIT 25.4 % (36.0-47.0); HEMOGLOBIN 8.6 g/dl (12.0-15.5)
[2021-04-09] MEDS: traZODone 25MG PER 1/2 TABLET PO SCH (20:56)
[2021-04-10] VITALS (9 sets, daily range): BP systolic 89–113; BP diastolic 46–65
[2021-04-10 00:20] LABS: HEMATOCRIT 22.7 % (36.0-47.0); HEMOGLOBIN 7.9 g/dl (12.0-15.5)
[2021-04-10] MEDS: DOXYCYCLINE HYCLATE 100MG TABLET PO SCH ×2 (05:26→18:09)
[2021-04-10 06:11] LABS: BASO % 0.4 % (0.0-1.0); EOS # 0.5 10^3/uL (0.0-0.5); EOS % 10.2 % (0.0-3.0); HEMATOCRIT 23.2 % (36.0-47.0); LYMPH # 0.7 10^3/uL (1.5-5.0); MEAN CORPUSCULAR HGB CONC 34.5 g/dl (32.0-36.5); MEAN CORPUSCULAR VOLUME 89.9 fl (80.0-96.0); MONO # 0.7 10^3/uL (0.0-0.8); MONO % 13.8 % (2.0-8.0); NEUTROPHILS # 3.1 10^3/uL (1.5-8.5); NEUTROPHILS % 61.2 % (36.0-66.0); RED BLOOD COUNT 2.58 10^6/uL (4.00-5.40)
[2021-04-10 06:24] LABS: PLATELET COUNT, AUTOMATED 67 10^3/uL (150-450)
[2021-04-10 06:36] LABS: ALBUMIN 3.4 GM/DL (3.2-5.2); BILIRUBIN,TOTAL 3.8 MG/DL (0.2-1.0); CALCIUM LEVEL 7.5 MG/DL (8.5-10.1); CREATININE FOR GFR 1.68 MG/DL (0.55-1.30); GLOMERULAR FILTRATION RATE 33.2 (>51); POTASSIUM SERUM 3.5 MEQ/L (3.5-5.1); TOTAL PROTEIN 5.1 GM/DL (6.4-8.2)
[2021-04-10] MEDS: SODIUM BICARBONATE 325 MG TAB PO SCH ×4 (08:56→20:54)
[2021-04-10] MEDS: IRON POLYSAC (NIFEREX) 150 MG CAP PO SCH ×2 (08:56→20:54)
[2021-04-10] MEDS: LACTULOSE 20 GM/30 ML SYRUP UD PO SCH ×3 (08:56→20:54)
[2021-04-10] MEDS: FOLIC ACID 1 MG TAB PO SCH (08:57)
[2021-04-10] MEDS: MIDODRINE 5 MG TAB PO SCH ×3 (08:57→16:32)
[2021-04-10] MEDS: THIAMINE 100 MG TAB PO SCH (08:57)
[2021-04-10] MEDS: PANTOPRAZOLE 40MG TAB (PROTONIX) PO SCH (08:57)
[2021-04-10] MEDS: GABAPENTIN 300 MG CAP PO SCH ×2 (08:57→20:54)
[2021-04-10] MEDS ORDERED: FUROSEMIDE 40 MG TAB PO SCH (09:00)
[2021-04-10] MEDS: FUROSEMIDE 40 MG TAB PO SCH ×2 (10:47→17:00)
[2021-04-10 11:07] LABS: HEMATOCRIT 24.5 % (36.0-47.0); HEMOGLOBIN 8.4 g/dl (12.0-15.5)
[2021-04-10] MEDS: CIPROFLOXACIN 500MG TABLET PO SCH (13:00)
--- NOTE | 2021-04-10 13:06 | IPNPDOC ---
Text Note Date of Service The patient was seen on 04/10/21. NOTE Subjective: Patient is 61 year old female with a PMHx of Alcoholic cirrhosis (received weekly paracentesis; Ascites, Portal HTN, Coagulopathy, Thrombocyt openia, Chronic Hyponatremia), Chronic Hypotension (on Midodrine), CKD3 (Hx of Hepatorenal syndrome), AOCD, Anxiety / Depression, who had scheduled paracentesis on 04/08. Patient had become hypotensive after the procedure. Hospitalist service was called for further evaluation and treatment. Of note, patient typically gets albumin infusions during her paracentesis procedures, however, did not receive any albumin this time. Patient was seen and examined at the bedside. Patient was seen ambulating in the room. Denies any chest pain, shortness breath, palpitations, nausea, vomiting or abdominal discomfort. Patient reports normal bowel movements without any dark colored stool or blood in her stool. Patient has worked with physical therapy for discharge today. Objective: Vitals (See below) General: Patient was seen ambulating the room working with physical therapy, a ppears comfortable, not in any acute distress, awake, alert, oriented 3 HEENT: NC, AT CVS: +S1S2 Lungs: Fair air entry b/l, no wheezing, rales or rhonchi Abdomen: Again is soft without distention, remains non-tender Extremities: There is still 2+ pitting edema bilaterally Skin: Left lower extremity with erythema with slight improvement compared to yesterday Imaging: Paracentesis US 04/02: Ultrasound-guided paracentesis with removal of 6000 mL of ascites. Paracentesis US 04/05: Ultrasound-guided paracentesis [id number] cc of cloudy yellow fluid. Paracentesis US 04/08: Ultrasound-guided paracentesis with removal of 4700 mL of cloudy yellow ascites. Assessment and plan: Anemia - likely 2/2 AOCD / Iron deficiency, myelosuppression, - Again patient has not experience any bleeding episodes - Hg has improved appropriately and remained stable over the last 24 hours - s/p 2 unit PRBC - H&H remains stable - Will continue to monitor Ascites - likely 2/2 decompensated liver cirrhosis - Patient has received 3 Paracentesis procedures over the last 7 days; continue to fluid removal of approximately 16 L - c/w Fluid restriction - c/w Ciprofloxacin for SBP prophylaxis - Will resume Furosemide Alcoholic liver cirrhosis - c/w Lactulose - c/w Thiamine, Folate Chronic hypotension - c/w Midodrine; dose adjusted - s/p Albumin infusion Chronic weakness - c/w PT; cleared for discharge home Chronic hyponatremia - Patient has hyponatremia dating back to 2019 - Improving currently with fluids; diuresis was not administered since arrival - c/w Fluid restrictions CKD3 - Renal function appears to be at baseline; 1.3-1.9 - Will resume diuretics Chronic metabolic acidosis - c/w Sodium bicarbonate (based on outpatient regimen) SSTI of LLE - No leukocytosis - No evidence of fevers - Left lower extremity with erythema, warmth and tenderness - MRSA pending - ASO negative - Will get duplex US LE bilaterally - c/w Doxycycline for coverage of MRSA GI prophylaxis - c/w Protonix DVT prophylaxis - c/w TEDs / Sequentials Disposition: - Awaiting clinical improvement VS,Topher, I+O VS, Topher, I+O Laboratory Tests 04/09/21 17:47 04/10/21 00:10 04/10/21 05:46 04/10/21 10:56 Vital Signs Date Time Temp Pulse Resp B/P (MAP) Pulse Ox O2 Delivery O2 Flow Rate FiO2 04/10/21 10:40 113/65 (81) 04/10/21 06:00 98.3 77 16 99 Room Air I&O- Last 24 Hours up to 6 AM 04/10/21 06:00 Intake Total 1550.0 ml Output Total 650 ml Balance 900.0 ml СЕРГЕЙ FAULKNER MD Apr 10, 2021 13:06
--- NOTE | 2021-04-10 16:03 | REP ---
INDICATION: LE edema COMPARISON: None. TECHNIQUE: Conn scale and color Doppler evaluation using linear high frequency transducer. FINDINGS: Ultrasound examination of the right and left lower extremity deep venous structures from the common femoral vein through the calf/ankle to include the peroneal, and tibial veins demonstrates normal compressibility flow and wave patterns in response to respiration and augmentation. There is no evidence for deep venous thrombosis. Distal lower extremities demonstrate significant edema and overlying erythema. IMPRESSION: No evidence for deep venous thrombosis. <Electronically signed by Harshal Vaughn > 04/10/21 6440
[2021-04-10 18:09] LABS: HEMATOCRIT 25.5 % (36.0-47.0); HEMOGLOBIN 8.6 g/dl (12.0-15.5)
[2021-04-10] MEDS: traZODone 25MG PER 1/2 TABLET PO SCH (20:54)
[2021-04-11 00:14] LABS: HEMATOCRIT 27.2 % (36.0-47.0)
[2021-04-11] MEDS: DOXYCYCLINE HYCLATE 100MG TABLET PO SCH (05:20)
[2021-04-11 05:54] LABS: BASO # 0.1 10^3/uL (0.0-0.2); BASO % 0.8 % (0.0-1.0); EOS # 0.7 10^3/uL (0.0-0.5); EOS % 10.7 % (0.0-3.0); HEMATOCRIT 24.2 % (36.0-47.0); HEMOGLOBIN 8.2 g/dl (12.0-15.5); LYMPH # 0.8 10^3/uL (1.5-5.0); MEAN CORPUSCULAR HEMOGLOBIN 30.8 pg (27.0-33.0); MEAN CORPUSCULAR HGB CONC 33.9 g/dl (32.0-36.5); MONO % 15.4 % (2.0-8.0); NEUTROPHILS # 3.9 10^3/uL (1.5-8.5); NEUTROPHILS % 59.9 % (36.0-66.0); RED BLOOD COUNT 2.66 10^6/uL (4.00-5.40); WHITE BLOOD COUNT 6.6 10^3/uL (4.0-10.0)
[2021-04-11 05:56] LABS: PLATELET COUNT, AUTOMATED 73 10^3/uL (150-450)
[2021-04-11 06:00] VITALS: BP 108/61
[2021-04-11 06:18] LABS: ALBUMIN 3.3 GM/DL (3.2-5.2); BILIRUBIN,TOTAL 3.9 MG/DL (0.2-1.0); CALCIUM LEVEL 8.3 MG/DL (8.5-10.1); CREATININE FOR GFR 1.75 MG/DL (0.55-1.30); GLOMERULAR FILTRATION RATE 31.7 (>51); MAGNESIUM LEVEL 1.9 MG/DL (1.8-2.4); POTASSIUM SERUM 3.4 MEQ/L (3.5-5.1); TOTAL PROTEIN 5.4 GM/DL (6.4-8.2)
[2021-04-11] MEDS ORDERED: POTASSIUM CHLORIDE 10 MEQ SR TABLET PO ONE (08:00)
[2021-04-11] MEDS: GABAPENTIN 300 MG CAP PO SCH (09:46)
[2021-04-11] MEDS: LACTULOSE 20 GM/30 ML SYRUP UD PO SCH (09:47)
[2021-04-11] MEDS: IRON POLYSAC (NIFEREX) 150 MG CAP PO SCH (09:47)
[2021-04-11] MEDS: FOLIC ACID 1 MG TAB PO SCH (09:47)
[2021-04-11] MEDS: PANTOPRAZOLE 40MG TAB (PROTONIX) PO SCH (09:47)
[2021-04-11] MEDS: THIAMINE 100 MG TAB PO SCH (09:47)
[2021-04-11] MEDS: SODIUM BICARBONATE 325 MG TAB PO SCH (09:47)
[2021-04-11] MEDS: FUROSEMIDE 40 MG TAB PO SCH (09:47)
[2021-04-11] MEDS: MIDODRINE 5 MG TAB PO SCH (09:47)
[2021-04-11] MEDS ORDERED: MIDO5TA PO (09:59)
[2021-04-11] MEDS ORDERED: DOXY100T PO (09:59)
--- NOTE | 2021-04-11 11:45 | DS.PDOC ---
Discharge Summary General Date of Admission Apr 08, 2021 at 14:28 Date of Discharge 04/11/2021 Discharge Summary PROCEDURES PERFORMED DURING STAY: [None]. ADMITTING DIAGNOSES / DISCHARGE DIAGNOSES: Anemia - likely 2/2 AOCD / Iron deficiency, myelosuppression, Ascites - likely 2/2 decompensated liver cirrhosis Alcoholic liver cirrhosis Chronic hypotension Chronic weakness Chronic hyponatremia CKD3 Chronic metabolic acidosis SSTI of LLE GI prophylaxis DVT prophylaxis COMPLICATIONS/CHIEF COMPLAINT: Hypotension / Anemia HISTORY OF PRESENT ILLNESS: Patient is 61 year old female with a PMHx of Alcoholic cirrhosis (received weekly paracentesis; Ascites, Portal HTN, Coagulopathy, Thrombocyt openia, Chronic Hyponatremia), Chronic Hypotension (on Midodrine), CKD3 (Hx of Hepatorenal syndrome), AOCD, Anxiety / Depression, who had scheduled paracentesis on 04/08. Patient had become hypotensive after the procedure. Hospitalist service was called for further evaluation and treatment. Of note, patient typically gets albumin infusions during her paracentesis procedures, however, did not receive any albumin this time. Patient was seen and examined at the bedside currently reports that she is feeling relatively fine. Denies any nausea, vomiting, chest pain, shortness breath, palpitations, abdominal pain. Patient has had regular bowel movements that were brown. HOSPITAL COURSE: Anemia - likely 2/2 AOCD / Iron deficiency, myelosuppression, - Patient has had regular bowel movements without any evidence of dark stools - Hg has remained stable over the last 48 hours - s/p 2 unit PRBC - H&H remains stable - Will continue to monitor Ascites - likely 2/2 decompensated liver cirrhosis - Patient has received 3 Paracentesis procedures over the last 7 days; continue to fluid removal of approximately 16 L - c/w Fluid restriction - c/w Ciprofloxacin for SBP prophylaxis; patient takes this chronically as an outpatient - c/w Furosemide based on outpatient regimen Alcoholic liver cirrhosis - c/w Lactulose - c/w Thiamine, Folate Chronic hypotension - c/w Midodrine; dose adjusted - s/p Albumin infusion Chronic weakness - c/w PT; cleared for discharge home s/p Chronic hyponatremia - Patient has hyponatremia dating back to 2019 - Improving currently with fluids - c/w Fluid restrictions and Furosemide has been resumed CKD3 - Renal function appears to be at baseline; 1.3-1.9 - c/w diuretics Chronic metabolic acidosis - c/w Sodium bicarbonate; based on outpatient regimen SSTI of LLE - No leukocytosis - Patient remains afebrile - Left lower extremity with improvement of erythema - MRSA / ASO negative - Duplex US LE bilaterally is negative for DVT - c/w Doxycycline as an outpatient for completion of course GI prophylaxis - c/w Protonix DVT prophylaxis - c/w TEDs / Sequentials DISCHARGE MEDICATIONS: Please see below. ALLERGIES: Please see below. PHYSICAL EXAMINATION ON DISCHARGE: Vitals (See below) General: Lying in bed, no acute distress, comfortable, AAOx3 HEENT: NC, AT CVS: +S1S2 Lungs: Fair air entry b/l, no wheezing, rales or rhonchi Abdomen: Soft, nondistended, nontender, Extremities: 2+ pitting edema Skin: Left lower extremity with improvement of erythema. No significant warmth. Some tenderness appreciated bilaterally LABORATORY DATA: Please see below. IMAGING: Vascular US 04/10: No evidence for deep venous thrombosis. ACTIVITY: [As tolerated]. DISCHARGE PLAN: Follow-up with primary care provider within the next 7 days Follow-up with gastroenterology within the next 7 days Remain compliant with treatment plan and medications Return to the ER if you experience any problems DISPOSITION: Home with services DISCHARGE CONDITION: [Stable]. TIME SPENT ON DISCHARGE: 35 minutes. Vital Signs/I&Os Vital Signs Date Time Temp Pulse Resp B/P (MAP) Pulse Ox O2 Delivery O2 Flow Rate FiO2 04/11/21 06:00 97.7 65 16 108/61 (77) 99 Room Air I&O- Last 24 Hours up to 6 AM 04/11/21 06:00 Intake Total 1430 ml Output Total 1100 ml Balance 330 ml Laboratory Data Labs 24H Laboratory Tests 2 04/11/21 05:30: Immature Granulocyte % (Auto) 1.2, Neutrophils (%) (Auto) 59.9, Lymphocytes (%) (Auto) 12.0L, Monocytes (%) (Auto) 15.4H, Eosinophils (%) (Auto) 10.7H, Basophils (%) (Auto) 0.8, Neutrophils # (Auto) 3.9, Lymphocytes # (Auto) 0.8L, Monocytes # (Auto) 1.0H, Eosinophils # (Auto) 0.7H, Basophils # (Auto) 0.1, Nucleated Red Blood Cells % (auto) 0.0, Immature Platelet Fraction 1.3, Anion Gap 9, Glomerular Filtration Rate 31.7L, Calcium Level 8.3L, Magnesium Level 1.9 , Total Bilirubin 3.9H, Aspartate Amino Transf (AST/SGOT) 63H, Alanine Aminotransferase (ALT/SGPT) 25, Alkaline Phosphatase 92, Total Protein 5.4L, Albumin 3.3, Albumin/Globulin Ratio 1.6 CBC/BMP Laboratory Tests 04/10/21 17:55 04/10/21 23:41 04/11/21 05:30 Discharge Medications Scheduled Ciprofloxacin HCl (Ciprofloxacin HCl) 500 Mg Tablet, 500 MG PO DAILY, (Reported) TAKE AFTER LUNCH Doxycycline Hyclate (Doxycycline Hyclate) 100 Mg Tablet, 100 MG PO BID@0600,1800 Folic Acid (Folic Acid) 1 Mg Tablet, 1 MG PO DAILY, (Reported) Furosemide (Furosemide) 40 Mg Tablet, 40 MG PO BID, (Reported) Gabapentin (Gabapentin) 300 Mg Capsule, 300 MG PO BID, (Reported) Lactose-Reduced Food (Boost Plus) 237 Ml Liquid, 237 ML PO DAILY, (Reported) Lactulose (Lactulose) 10 Gm/15 Ml Solution, 15 ML PO TID, (Reported) Midodrine HCl (Midodrine HCl) 5 Mg Tablet, 3 TAB PO TID Pantoprazole Sodium (Pantoprazole Sodium) 40 Mg Tablet.dr, 40 MG PO DAILY, (Reported) Sodium Bicarbonate (Sodium Bicarbonate) 325 Mg Tablet, 325 MG PO QID, (Reported) Thiamine HCl (Thiamine HCl) 100 Mg Tablet, 100 MG PO DAILY, (Reported) Trazodone HCl (Trazodone HCl) 50 Mg Tablet, 25 MG PO QHS, (Reported) Allergies Coded Allergies: No Known Allergies (Unverified , 03/28/20) СЕРГЕЙ FAULKNER MD Apr 11, 2021 11:45
== END 2021-04-11 11:53 | disposition home health service (06) ==
LOC: M ED 14:27 → M ED INP 14:28 → ENRESERV 16:38 → M MSPAV 17:52
PROVIDERS: ADMIT Internal Medicine; ATTEND Internal Medicine
DX: D64.9 Anemia, unspecified (principal); D46.9 Myelodysplastic syndrome, unspecified; R18.8 Other ascites; I12.9 Hypertensive chronic kidney disease with stage 1 through stage 4 chronic kidney disease, or unspecified chronic kidney disease; N18.30 Chronic kidney disease, stage 3 unspecified; R53.1 Weakness; E87.1 Hypo-osmolality and hyponatremia; E87.2 Acidosis; D69.6 Thrombocytopenia, unspecified; F41.9 Anxiety disorder, unspecified; F32.9 Major depressive disorder, single episode, unspecified; Z87.891 Personal history of nicotine dependence; Z79.899 Other long term (current) drug therapy
CPT/HCPCS: 36415; 36430; 80053; 82607; 82746; 83735; 83880; 83930; 84145; 85014; 85018; 85025; 85027; 85049; 85055; 86063; 86850; 86900; 86901; 86920; 87631; 87641; 93005; 93970; 96374; 96376; 97116; 97161; 97165; 97530; 99285; P9016; P9047

== ENCOUNTER → 2021-04-08 | Outpatient (CLI) | payer OTHER ==
[~2021-04-08] MED LIST changes: +DOXY100T PO; +LIDOCAINE 1% MDV 20ML VIAL As Ordered ONE; +SODIUM BICARBONATE 8.4% INJ 50MEQ 50 ML VIAL As Ordered ONE
[2021-04-08 13:19] LABS: BASO % 0.5 % (0.0-1.0); EOS # 0.7 10^3/uL (0.0-0.5); EOS % 8.6 % (0.0-3.0); HEMATOCRIT 20.6 % (36.0-47.0); LYMPH # 0.7 10^3/uL (1.5-5.0); LYMPH % 7.7 % (24.0-44.0); MEAN CORPUSCULAR VOLUME 90.7 fl (80.0-96.0); MONO # 1.1 10^3/uL (0.0-0.8); MONO % 12.8 % (2.0-8.0); NEUTROPHILS # 5.8 10^3/uL (1.5-8.5); NEUTROPHILS % 68.3 % (36.0-66.0); PLATELET COUNT, AUTOMATED 100 10^3/uL (150-450); RED BLOOD COUNT 2.27 10^6/uL (4.00-5.40); WHITE BLOOD COUNT 8.4 10^3/uL (4.0-10.0)
[2021-04-08 13:21] LABS: HEMOGLOBIN 6.8 g/dl (12.0-15.5)
[2021-04-08 13:28] LABS: INR 1.78; PROTHROMBIN TIME 21.1 SECONDS (12.5-14.3)
[2021-04-08 13:29] LABS: PARTIAL THROMBOPLASTIN TIME 40.5 SECONDS (24.2-38.5)
[2021-04-08 13:54] LABS: ALBUMIN 2.9 GM/DL (3.2-5.2); BILIRUBIN,DIRECT 1.1 MG/DL (0.0-0.2); BILIRUBIN,TOTAL 2.2 MG/DL (0.2-1.0); CALCIUM LEVEL 7.9 MG/DL (8.5-10.1); CREATININE FOR GFR 2.19 MG/DL (0.55-1.30); GLOMERULAR FILTRATION RATE 24.4 (>51); TOTAL PROTEIN 5.9 GM/DL (6.4-8.2)
[2021-04-08 14:20] VITALS: BP 96/50
--- NOTE | 2021-04-08 16:25 | REP ---
INDICATION: ASCITES The patient has a history of ascites COMPARISON: None. TECHNIQUE: The procedure was performed by Yu Santiago [facility], under the direct supervision of Dr. Galan The risks and benefits of the procedure were explained to the patient and an informed consent was obtained both verbally and written. Directly prior to the start of the procedure a formal time-out was completed in the procedure room. The largest pocket of fluid was localized in the right flank using ultrasound guidance. The skin was prepped and draped in a sterile fashion. Eleven ML of buffered lidocaine was used as a local anesthetic. An 8-Portuguese multi side-hole catheter was inserted using trocar technique. FINDINGS: 4700 mL of cloudy yellow ascites was removed, 100 mL was sent to the laboratory for further analysis due to its appearance, and the rest was discarded. The patient tolerated the procedure well and there were no immediate complications. After the procedure the patient's blood pressure was low the patient was lethargic. It was decided that the best course of action would be to send the patient to the ER.. IMPRESSION: Ultrasound-guided paracentesis with removal of 4700 mL of cloudy yellow ascites. <Electronically signed by Yu Santiago > 04/08/21 1615 <Electronically signed by Heron Galan > 04/08/21 1621
== END ==
LOC: M IRPRO 12:33
PROVIDERS: ATTEND Internal Medicine Gastroenterology
DX: K70.30 Alcoholic cirrhosis of liver without ascites (principal); R18.8 Other ascites
CPT/HCPCS: 49083; 80048; 80076; 85025; 85610; 85730; 87070; 87075; 87205; 96365; P9047

== ENCOUNTER → 2021-04-12 | Outpatient (CLI) | payer OTHER ==
[~2021-04-12] MED LIST changes: +BOOSLIQ77 PO; +DOXY100T PO; +SODIUM BICARBONATE 8.4% INJ 50MEQ 50 ML VIAL As Ordered ONE
[2021-04-12 15:05] VITALS: BP 101/52
--- NOTE | 2021-04-12 16:32 | REP ---
INDICATION: ASCITES The patient has a history of ascites COMPARISON: None. TECHNIQUE: The procedure was performed by HECTOR Alfredo, under the direct supervision of Dr. Galan The risks and benefits of the procedure were explained to the patient and an informed consent was obtained both verbally and written. Directly prior to the start of the procedure a formal time-out was completed in the procedure room. The largest pocket of fluid was localized in the right flank using ultrasound guidance. The skin was prepped and draped in a sterile fashion. Eleven ML of buffered lidocaine was used as a local anesthetic. An 8-Slovak multi side-hole catheter was inserted using trocar technique. FINDINGS: 5100 mL of yellow ascites was removed and discarded. The patient tolerated the procedure well and there were no immediate complications. After the appropriate amount of monitored convalescence, the patient was discharged from the department. IMPRESSION: Ultrasound-guided paracentesis with removal of 5100 mL of yellow ascites. <Electronically signed by Yu Santiago > 04/12/21 1608 <Electronically signed by Heron Galan > 04/12/21 1627
== END ==
LOC: M IRPRO 14:07
PROVIDERS: ATTEND Internal Medicine Gastroenterology
DX: K70.31 Alcoholic cirrhosis of liver with ascites (principal)

== ENCOUNTER → 2021-04-16 | Outpatient (CLI) | payer OTHER ==
[~2021-04-16] MED LIST changes: -SODIUM BICARBONATE 8.4% INJ 50MEQ 50 ML VIAL As Ordered ONE
[2021-04-16 13:35] LABS: BASO # 0.1 10^3/uL (0.0-0.2); BASO % 0.7 % (0.0-1.0); EOS # 0.8 10^3/uL (0.0-0.5); EOS % 7.4 % (0.0-3.0); HEMATOCRIT 26.6 % (36.0-47.0); HEMOGLOBIN 9.1 g/dl (12.0-15.5); LYMPH # 0.9 10^3/uL (1.5-5.0); LYMPH % 8.1 % (24.0-44.0); MEAN CORPUSCULAR HEMOGLOBIN 31.4 pg (27.0-33.0); MEAN CORPUSCULAR HGB CONC 34.2 g/dl (32.0-36.5); MEAN CORPUSCULAR VOLUME 91.7 fl (80.0-96.0); MONO # 1.4 10^3/uL (0.0-0.8); MONO % 12.5 % (2.0-8.0); NEUTROPHILS # 8.1 10^3/uL (1.5-8.5); NEUTROPHILS % 70.7 % (36.0-66.0); PLATELET COUNT, AUTOMATED 110 10^3/uL (150-450); WHITE BLOOD COUNT 11.4 10^3/uL (4.0-10.0)
[2021-04-16 13:47] LABS: INR 1.89; PROTHROMBIN TIME 22.1 SECONDS (12.5-14.3)
[2021-04-16 14:03] LABS: CALCIUM LEVEL 8.3 MG/DL (8.5-10.1); CREATININE FOR GFR 1.73 MG/DL (0.55-1.30); GLOMERULAR FILTRATION RATE 32.1 (>51); POTASSIUM SERUM 4.2 MEQ/L (3.5-5.1)
[2021-04-16 14:04] LABS: ALBUMIN 3.3 GM/DL (3.2-5.2); BILIRUBIN,DIRECT 0.8 MG/DL (0.0-0.2); BILIRUBIN,TOTAL 3.4 MG/DL (0.2-1.0); TOTAL PROTEIN 6.4 GM/DL (6.4-8.2)
[2021-04-16 14:30] VITALS: BP 112/62
--- NOTE | 2021-04-16 17:02 | REP ---
INDICATION: ASCITES. COMPARISON: None. TECHNIQUE: The procedure was performed under the direct supervision of Dr. Conn. The risks and benefits of the procedure were explained to the patient and informed consent was obtained. The largest pocket of fluid was localized in the left flank using ultrasound guidance. The skin was prepped and draped in a sterile fashion. 1% lidocaine was used as a local anesthetic. Using ultrasound guidance, an 8-Mozambican multi side-hole catheter was inserted using trocar technique.6000 cc of cloudy yellow fluid was withdrawn and discarded. The patient tolerated the procedure well and there were no immediate complications. After the appropriate amount of monitored convalescence, the patient was discharged from the department. FINDINGS: None IMPRESSION: Ultrasound-guided paracentesis [id number] cc of cloudy yellow fluid. <Electronically signed by Nathanael Garduno > 04/16/21 1635 <Electronically signed by James Conn > 04/16/21 [id number]
== END ==
LOC: M IRPRO 12:39
PROVIDERS: ATTEND Internal Medicine Gastroenterology
DX: K70.31 Alcoholic cirrhosis of liver with ascites (principal)
CPT/HCPCS: 49083; 80048; 80076; 85025; 85610; 85730; 96365; P9047

== ENCOUNTER → 2021-04-19 | Outpatient (CLI) | payer OTHER ==
[2021-04-19 15:25] VITALS: BP 102/63
--- NOTE | 2021-04-19 16:46 | REP ---
INDICATION: ASCITES. COMPARISON: None. TECHNIQUE: The procedure was performed under the direct supervision of Dr. Conn. The risks and benefits of the procedure were explained to the patient and informed consent was obtained. The largest pocket of fluid was localized in the right lower quadrant using ultrasound guidance. The skin was prepped and draped in a sterile fashion. 5 mL of 1% lidocaine was used as a local anesthetic. Using ultrasound guidance, an 8-Lao multi side-hole catheter was inserted using trocar technique.5200 cc of cloudy yellow fluid was withdrawn and discarded. Estimated blood loss: Less than 1 cc The patient tolerated the procedure well and there were no immediate complications. After the appropriate amount of monitored convalescence, the patient was discharged from the department. FINDINGS: None IMPRESSION: Ultrasound-guided paracentesis [id number] cc of cloudy yellow fluid. <Electronically signed by Nathanael Garduno > 04/19/21 1632 <Electronically signed by James Conn > 04/19/21 1648
== END ==
LOC: M IRPRO 14:16
PROVIDERS: ATTEND Internal Medicine Gastroenterology
DX: R18.8 Other ascites (principal); K74.60 Unspecified cirrhosis of liver

== ENCOUNTER 2021-04-22 14:19 | Outpatient (CLI) | payer OTHER ==
[~2021-04-22] VITALS: Ht 154.9 cm; Wt 64.0 kg
[~2021-04-22 14:19] MED LIST changes: +POTA-151 PO; -POTA20TA6 PO
[2021-04-22 14:25] VITALS: BP 111/61
[2021-04-22 16:00] VITALS: BP 98/56
[2021-04-22 17:00] VITALS: BP 91/51
[2021-04-22 17:39] LABS: MEAN CORPUSCULAR HEMOGLOBIN 30.9 pg (27.0-33.0); RED BLOOD COUNT 2.23 10^6/uL (4.00-5.40); WHITE BLOOD COUNT 8.1 10^3/uL (4.0-10.0)
[2021-04-22 17:41] LABS: HEMATOCRIT 20.3 % (36.0-47.0); HEMOGLOBIN 6.9 g/dl (12.0-15.5); PLATELET COUNT, AUTOMATED 82 10^3/uL (150-450)
[2021-04-22 18:00] LABS: CREATININE FOR GFR 1.84 MG/DL (0.55-1.30); GLOMERULAR FILTRATION RATE 29.9 (>51)
[2021-04-22 18:15] VITALS: BP 102/54
== END 2021-04-22 18:15 | disposition home or self-care (01) ==
LOC: M INFU 14:19
PROVIDERS: ATTEND Internal Medicine Gastroenterology
DX: D64.9 Anemia, unspecified (principal)
CPT/HCPCS: 36430; 82565; 84520; 85027; 85049; 85055; P9016

== ENCOUNTER → 2021-04-22 | Outpatient (CLI) | payer OTHER ==
[2021-04-22 12:30] LABS: BASO % 0.4 % (0.0-1.0); EOS # 0.3 10^3/uL (0.0-0.5); EOS % 3.4 % (0.0-3.0); LYMPH # 0.7 10^3/uL (1.5-5.0); LYMPH % 6.9 % (24.0-44.0); MEAN CORPUSCULAR HGB CONC 34.2 g/dl (32.0-36.5); MEAN CORPUSCULAR VOLUME 90.7 fl (80.0-96.0); MONO # 1.1 10^3/uL (0.0-0.8); MONO % 11.5 % (2.0-8.0); NEUTROPHILS # 7.4 10^3/uL (1.5-8.5); PLATELET COUNT, AUTOMATED 108 10^3/uL (150-450); RED BLOOD COUNT 2.16 10^6/uL (4.00-5.40); WHITE BLOOD COUNT 9.8 10^3/uL (4.0-10.0)
[2021-04-22 12:34] LABS: HEMATOCRIT 19.6 % (36.0-47.0); HEMOGLOBIN 6.7 g/dl (12.0-15.5)
[2021-04-22 12:41] LABS: INR 1.92; PROTHROMBIN TIME 22.4 SECONDS (12.5-14.3)
[2021-04-22 12:42] LABS: PARTIAL THROMBOPLASTIN TIME 42.5 SECONDS (24.2-38.5)
[2021-04-22 12:48] LABS: ALBUMIN 3.2 GM/DL (3.2-5.2); BILIRUBIN,DIRECT 1.2 MG/DL (0.0-0.2); BILIRUBIN,TOTAL 3.1 MG/DL (0.2-1.0); CALCIUM LEVEL 8.1 MG/DL (8.5-10.1); CREATININE FOR GFR 2.04 MG/DL (0.55-1.30); GLOMERULAR FILTRATION RATE 26.5 (>51); POTASSIUM SERUM 3.4 MEQ/L (3.5-5.1); TOTAL PROTEIN 6.1 GM/DL (6.4-8.2)
[2021-04-22 13:30] VITALS: BP 95/54
--- NOTE | 2021-04-23 07:55 | REP ---
INDICATION: ASCITES. COMPARISON: None. TECHNIQUE: The procedure was performed under the direct supervision of Dr. Galan. The risks and benefits of the procedure were explained to the patient and informed consent was obtained. The largest pocket of fluid was localized in the left flank using ultrasound guidance. The skin was prepped and draped in a sterile fashion. 6 mL of 1% lidocaine was used as a local anesthetic. Using ultrasound guidance an 8-Yoruba multi side-hole catheter was inserted using trocar technique.5000 cc of low viscosity red colored fluid was withdrawn with a sample sent to the lab for analysis. Estimated blood loss: Less than 1 cc The patient tolerated the procedure well and there were no immediate complications. After the appropriate amount of monitored convalescence, the patient was discharged from the department. FINDINGS: None IMPRESSION: Ultrasound-guided paracentesis [id number] cc of low viscosity red colored fluid. <Electronically signed by Nathanael Garduno > 04/22/21 [id number] <Electronically signed by Heron Galan > 04/23/21 [id number]
== END ==
LOC: M IRPRO 11:52
PROVIDERS: ATTEND Internal Medicine Gastroenterology
DX: K70.31 Alcoholic cirrhosis of liver with ascites (principal)
CPT/HCPCS: 36415; 49083; 80048; 80076; 85025; 85610; 85730; 86850; 86900; 86901; 86920; 87070; 87075; 87205; 96365; P9047

== ENCOUNTER → 2021-04-29 | Outpatient (CLI) | payer OTHER ==
[~2021-04-29] MED LIST changes: -POTA-151 PO; +POTA20TA6 PO; +SODIUM BICARBONATE 8.4% INJ 50MEQ 50 ML VIAL As Ordered ONE
[2021-04-29 11:37] LABS: BASO # 0.1 10^3/uL (0.0-0.2); BASO % 0.7 % (0.0-1.0); EOS # 0.2 10^3/uL (0.0-0.5); EOS % 2.4 % (0.0-3.0); HEMATOCRIT 23.8 % (36.0-47.0); HEMOGLOBIN 8.1 g/dl (12.0-15.5); LYMPH # 0.5 10^3/uL (1.5-5.0); LYMPH % 7.7 % (24.0-44.0); MEAN CORPUSCULAR HEMOGLOBIN 31.3 pg (27.0-33.0); MEAN CORPUSCULAR VOLUME 91.9 fl (80.0-96.0); MONO # 0.7 10^3/uL (0.0-0.8); MONO % 10.2 % (2.0-8.0); NEUTROPHILS # 5.5 10^3/uL (1.5-8.5); NEUTROPHILS % 78.4 % (36.0-66.0); RED BLOOD COUNT 2.59 10^6/uL (4.00-5.40)
[2021-04-29 11:43] LABS: PLATELET COUNT, AUTOMATED 96 10^3/uL (150-450)
[2021-04-29 11:47] LABS: INR 1.77
[2021-04-29 11:48] LABS: PARTIAL THROMBOPLASTIN TIME 39.7 SECONDS (24.2-38.5)
[2021-04-29 12:05] LABS: ALBUMIN 3.3 GM/DL (3.2-5.2); BILIRUBIN,DIRECT 1.2 MG/DL (0.0-0.2); BILIRUBIN,TOTAL 2.5 MG/DL (0.2-1.0); CREATININE FOR GFR 1.21 MG/DL (0.55-1.30); GLOMERULAR FILTRATION RATE 48.5 (>51); TOTAL PROTEIN 6.6 GM/DL (6.4-8.2)
[2021-04-29 12:42] VITALS: BP 104/67
--- NOTE | 2021-04-29 17:32 | REP ---
INDICATION: ASCITES The patient has a history of ascites COMPARISON: None. TECHNIQUE: The procedure was performed by HECTOR Alfredo, under the direct supervision of Dr. Conn The risks and benefits of the procedure were explained to the patient and an informed consent was obtained both verbally and written. Directly prior to the start of the procedure a formal time-out was completed in the procedure room. The largest pocket of fluid was localized in the right flank using ultrasound guidance. The skin was prepped and draped in a sterile fashion. Eleven ML of buffered lidocaine was used as a local anesthetic. An 8-Yi multi side-hole catheter was inserted using trocar technique. FINDINGS: 5000 mL of cloudy red tinged fluid was removed and discarded. The patient tolerated the procedure well and there were no immediate complications. After the appropriate amount of monitored convalescence, the patient was discharged from the department. IMPRESSION: Ultrasound-guided paracentesis with removal of 5000 mL of fluid. <Electronically signed by Yu Santiago > 04/29/21 1300 <Electronically signed by James Conn > 04/29/21 2004
== END ==
LOC: M IRPRO 11:05
PROVIDERS: ATTEND Internal Medicine Gastroenterology
DX: K70.31 Alcoholic cirrhosis of liver with ascites (principal)
CPT/HCPCS: 49083; 80048; 80076; 85025; 85049; 85055; 85610; 85730; 96365; P9047

== ENCOUNTER 2021-05-05 15:38 | Emergency (ER) | payer OTHER ==
[~2021-05-05] VITALS: Ht 154.9 cm; Wt 65.9 kg
[~2021-05-05 15:38] MED LIST changes: -SODIUM BICARBONATE 8.4% INJ 50MEQ 50 ML VIAL As Ordered ONE
[2021-05-05 15:42] VITALS: BP 101/67
--- NOTE | 2021-05-05 16:59 | REP ---
INDICATION: Altered Mental Status. COMPARISON: Comparison chest x-ray April 01, 2021. TECHNIQUE: Portable upright AP chest radiograph. FINDINGS: The lungs are well inflated and free of infiltrate. Pleural angles are sharp. Heart size is normal. Pulmonary vasculature is not increased. IMPRESSION: No active disease. <Electronically signed by Heron Galan > 05/05/21 [id number]
[2021-05-05 17:10] LABS: BASO % 0.7 % (0.0-1.0); EOS # 0.3 10^3/uL (0.0-0.5); EOS % 4.8 % (0.0-3.0); LYMPH # 0.7 10^3/uL (1.5-5.0); LYMPH % 11.6 % (24.0-44.0); MEAN CORPUSCULAR HEMOGLOBIN 31.8 pg (27.0-33.0); MEAN CORPUSCULAR HGB CONC 33.3 g/dl (32.0-36.5); MEAN CORPUSCULAR VOLUME 95.5 fl (80.0-96.0); MONO # 0.7 10^3/uL (0.0-0.8); MONO % 11.8 % (2.0-8.0); NEUTROPHILS # 4.1 10^3/uL (1.5-8.5); NEUTROPHILS % 70.4 % (36.0-66.0); PLATELET COUNT, AUTOMATED 104 10^3/uL (150-450); WHITE BLOOD COUNT 5.9 10^3/uL (4.0-10.0)
[2021-05-05 17:22] LABS: INR 1.84; PROTHROMBIN TIME 21.7 SECONDS (12.5-14.3)
[2021-05-05 17:23] LABS: PARTIAL THROMBOPLASTIN TIME 40.9 SECONDS (24.2-38.5)
[2021-05-05 17:37] LABS: AMPHETAMINES LEVEL URINE NEGATIVE (NEGATIVE); BARBITURATES URINE NEGATIVE (NEGATIVE); BENZODIAZEPINES URINE NEGATIVE (NEGATIVE); CANNABINOIDS URINE POSITIVE (NEGATIVE); COCAINE METABOLITE URINE NEGATIVE (NEGATIVE); METHADONE URINE NEGATIVE (NEGATIVE); OPIATES URINE POSITIVE (NEGATIVE); PHENCYCLIDINE URINE NEGATIVE (NEGATIVE)
[2021-05-05 17:42] LABS: RSV AMPLIFICATION NEGATIVE (NEGATIVE)
[2021-05-05 17:49] LABS: ACETAMINOPHEN LEVEL < 2.0 UG/ML (10.0-30.0); ALBUMIN 3.2 GM/DL (3.2-5.2); ALT/SGPT 29 U/L (12-78); AMYLASE 212 U/L (25-115); BILIRUBIN,DIRECT 1.5 MG/DL (0.0-0.2); BLOOD UREA NITROGEN 44 MG/DL (7-18); CALCIUM LEVEL 8.1 MG/DL (8.5-10.1); CARBON DIOXIDE LEVEL 16 MEQ/L (21-32); CHLORIDE LEVEL 107 MEQ/L (98-107); CK-MB VALUE MASS 5.1 NG/ML (<3.6); CPK CREATINE PHOSPHOKINASE 96 U/L (26-192); CREATININE FOR GFR 1.57 MG/DL (0.55-1.30); ETHYL ALCOHOL (ETHANOL) < 0.003 % (0.000-0.010); GLOMERULAR FILTRATION RATE 35.9 (>51); GLUCOSE, FASTING 111 MG/DL (70-100); LIPASE 1245 U/L (73-393); MB/CK RELATIVE INDEX 5.31 (< OR =4); POTASSIUM SERUM 3.2 MEQ/L (3.5-5.1); SALICYLATE LEVEL < 1.7 MG/DL (5.0-30.0); SODIUM LEVEL 134 MEQ/L (136-145); TOTAL PROTEIN 6.3 GM/DL (6.4-8.2); TROPONIN I 0.03 NG/ML (< 0.10)
--- NOTE | 2021-05-06 20:29 | ECGEPIP ---
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
== END 2021-05-05 17:45 | disposition left against medical advice (07) ==
LOC: M ED 15:38
DX: R10.9 Unspecified abdominal pain (principal); K74.60 Unspecified cirrhosis of liver; K85.90 Acute pancreatitis without necrosis or infection, unspecified; D64.9 Anemia, unspecified; F10.10 Alcohol abuse, uncomplicated; Z87.891 Personal history of nicotine dependence; Z53.20 Procedure and treatment not carried out because of patient's decision for unspecified reasons

== ENCOUNTER 2021-05-10 13:52 | Emergency (ER) | payer OTHER ==
[~2021-05-10] VITALS: Ht 154.9 cm; Wt 63.4 kg
[~2021-05-10 13:52] MED LIST changes: -ATIV1TAB7 PO; -POTA-151 PO; +POTA20TA6 PO
[2021-05-10 13:53] VITALS: BP 89/54
== END 2021-05-10 14:23 | disposition left against medical advice (07) ==
LOC: M ED 13:52
DX: Z53.21 Procedure and treatment not carried out due to patient leaving prior to being seen by health care provider (principal)

== ENCOUNTER → 2021-05-10 | Outpatient (CLI) | payer OTHER ==
[~2021-05-10] MED LIST changes: +ATIV1TAB7 PO; +POTA-151 PO; -POTA20TA6 PO
[2021-05-10 11:28] LABS: BASO % 0.7 % (0.0-1.0); EOS # 0.3 10^3/uL (0.0-0.5); EOS % 5.9 % (0.0-3.0); LYMPH # 0.7 10^3/uL (1.5-5.0); LYMPH % 15.9 % (24.0-44.0); MEAN CORPUSCULAR HEMOGLOBIN 31.6 pg (27.0-33.0); MEAN CORPUSCULAR HGB CONC 33.5 g/dl (32.0-36.5); MEAN CORPUSCULAR VOLUME 94.3 fl (80.0-96.0); MONO # 0.6 10^3/uL (0.0-0.8); MONO % 13.6 % (2.0-8.0); NEUTROPHILS # 2.8 10^3/uL (1.5-8.5); NEUTROPHILS % 63.4 % (36.0-66.0); RED BLOOD COUNT 2.12 10^6/uL (4.00-5.40); WHITE BLOOD COUNT 4.4 10^3/uL (4.0-10.0)
[2021-05-10 11:38] LABS: HEMOGLOBIN 6.7 g/dl (12.0-15.5); PLATELET COUNT, AUTOMATED 88 10^3/uL (150-450)
[2021-05-10 11:45] LABS: INR 2.06; PROTHROMBIN TIME 23.6 SECONDS (12.7-14.5)
[2021-05-10 11:46] LABS: PARTIAL THROMBOPLASTIN TIME 43.8 SECONDS (25.9-37.0)
[2021-05-10 11:58] LABS: ALBUMIN 2.8 GM/DL (3.2-5.2); BILIRUBIN,TOTAL 1.7 MG/DL (0.2-1.0); CREATININE FOR GFR 2.21 MG/DL (0.55-1.30); GLOMERULAR FILTRATION RATE 24.2 (>51); TOTAL PROTEIN 5.5 GM/DL (6.4-8.2)
[2021-05-10 13:00] VITALS: BP 93/55
== END ==
LOC: M IRPRO 10:36
PROVIDERS: ATTEND Internal Medicine Gastroenterology
DX: K70.31 Alcoholic cirrhosis of liver with ascites (principal)

== ENCOUNTER 2021-05-26 05:37 | Inpatient (IN) | payer OTHER ==
[~2021-05-26] VITALS: Ht 154.9 cm; Wt 73.8 kg
[2021-05-26 06:53] LABS: BASO % 0.5 % (0.0-1.0); EOS # 0.1 10^3/uL (0.0-0.5); EOS % 3.3 % (0.0-3.0); HEMATOCRIT 25.8 % (36.0-47.0); HEMOGLOBIN 8.3 g/dl (12.0-15.5); LYMPH # 0.5 10^3/uL (1.5-5.0); LYMPH % 13.6 % (24.0-44.0); MEAN CORPUSCULAR HEMOGLOBIN 30.9 pg (27.0-33.0); MEAN CORPUSCULAR HGB CONC 32.2 g/dl (32.0-36.5); MEAN CORPUSCULAR VOLUME 95.9 fl (80.0-96.0); MONO # 0.5 10^3/uL (0.0-0.8); MONO % 11.6 % (2.0-8.0); NEUTROPHILS # 2.7 10^3/uL (1.5-8.5); NEUTROPHILS % 70.5 % (36.0-66.0); RED BLOOD COUNT 2.69 10^6/uL (4.00-5.40); WHITE BLOOD COUNT 3.9 10^3/uL (4.0-10.0)
[2021-05-26 06:57] LABS: PLATELET COUNT, AUTOMATED 87 10^3/uL (150-450)
[2021-05-26 07:20] LABS: ALT/SGPT 31 U/L (12-78); BILIRUBIN,DIRECT 1.7 MG/DL (0.0-0.2); BILIRUBIN,TOTAL 3.6 MG/DL (0.2-1.0); CPK CREATINE PHOSPHOKINASE 124 U/L (26-192); LIPASE 727 U/L (73-393); MB/CK RELATIVE INDEX 4.84 (< OR =4); TOTAL PROTEIN 6.1 GM/DL (6.4-8.2); TROPONIN I 0.03 NG/ML (< 0.10)
[2021-05-26 07:20] LABS: INR 1.86; PROTHROMBIN TIME 21.9 SECONDS (12.7-14.5)
[2021-05-26 07:21] LABS: PARTIAL THROMBOPLASTIN TIME 44.9 SECONDS (25.9-37.0)
[2021-05-26 07:36] LABS: ETHYL ALCOHOL (ETHANOL) < 0.003 % (0.000-0.010)
[2021-05-26] MEDS ORDERED: ISOVUE-370 76% 100ML VIAL As Ordered ONE (07:49)
[2021-05-26] MEDS ORDERED: POTASSIUM CHLORIDE 10 MEQ SR TABLET PO ONE (08:00)
--- NOTE | 2021-05-26 08:28 | REP ---
INDICATION: abd pain, vomiting. COMPARISON: None. TECHNIQUE: Axial scans obtained during contrast administration. FINDINGS: The lower lungs are clear. The heart is not enlarged. There is severe ascites. Ascitic fluid is noted in umbilical hernia as well. The large small bowel are displaced centrally due to the extent of fluid. The liver is cirrhotic and small. There is no mass. The bile ducts are not dilated. There are several small gallstones. The gallbladder is not distended. The pancreas shows normal size and attenuation. The spleen is not enlarged. Aortic normal caliber. Kidneys unremarkable. Right adrenal gland unremarkable. Left adrenal gland contains a small nodule. Uterus and ovaries unremarkable. IMPRESSION: Several small gallstones. Gross ascites. Umbilical hernia which contains ascitic fluid. Cirrhotic liver <Electronically signed by Bin Hunter > 05/26/21 0117
[2021-05-26] MEDS: SPIRONOLACTONE 25 MG TAB PO SCH ×2 (09:00→16:34)
[2021-05-26] MEDS: LACTULOSE 20 GM/30 ML SYRUP UD PO SCH ×3 (09:00→19:47)
--- NOTE | 2021-05-26 09:08 | ECGEPIP ---
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
[2021-05-26] MEDS ORDERED: HEPARIN SOD (PORCINE) 5000UNITS/ML 1ML VIAL/SYRINGE SC SCH (09:30)
--- NOTE | 2021-05-26 09:54 | HPEPDOC ---
General Date of Admission 05/26/21 Date of Service: May 26, 2021 Chief Complaint The patient is a 61-year-old female admitted with a reason for visit of Abd Pain. Source: Patient Exam Limitations: No limitations History of Present Illness Patient is 61 years old female with past medical history of decompensated alcoholic cirrhosis of liver presented to hospital with increased abdominal distention. Patient has regular paracentesis. Patient stated that she is on the list for liver transplantation. Patient denied fever, chills, abdominal pain diarrhea or dysuria. In ER patient was found to have no leukocytosis, hemoglobin 8.3, platelet count 87, ammonia level 45 lipase 727, total bilirubin 3.6, ALT 70, ALT 31. CT showed Several small gallstones. Gross ascites. Umbilical hernia which contains ascitic fluid. Cirrhotic liver. Allergies Coded Allergies: No Known Allergies (Unverified , 05/26/21) Past Medical History Medical History Decompensated alcoholic liver cirrhosis with ascites, portal hypertension, coagulopathy, thrombocytopenia, chronic hyponatremia CKD stage III , Hepatorenal syndrome, Anxiety and depression Reducible non incarcerated umbilical hernia, Anemia of chronic disease, hypotension requiring Levophed drip during admission in November 2020 Surgical History Multiple paracenteses EGD and colonoscopy at [place] Surgical History Multiple paracenteses EGD and colonoscopy at [place] Family History Father CAD. Maternal uncle, cancer Social History * Smoker: former Smoker Alcohol: sober Drugs: denies A-FIB/CHADSVASC A-FIB History Current/History of A-Fib/PAF?: No Current PO Anticoag Therapy: No Review of Systems Constitutional: Denies: Chills, Fever Eyes: Denies: Pain ENT: Denies: Head Aches Skin: Denies: Rash, Lesions Pulmonary: Denies: Dyspnea Cardiovascular: Denies: Palpitations Gastrointestinal: Reports: Other Symptoms (Abdominal distention); Denies: Nausea, Vomiting Genitourinary: Denies: Dysuria Hematologic: Denies: Bruising Endocrine: Denies: Polydipsia, Polyphagia Musculoskeletal: Denies: Neck Pain Neurological: Denies: Weakness Psych: Reports: Mood Normal Physical Examination General Exam: Positive: Alert, Cooperative Eye Exam: Positive: PERRLA ENT Exam: Positive: Atraumatic Neck Exam: Positive: Supple, JVD Chest Exam: Positive: Clear to auscultation Heart Exam: Positive: Rate Normal Telemetry: Positive: No significant arrhythmia Abdomen Exam: Positive: Hepatospenomegaly Extremity Exam: Negative: Clubbing Skin Exam: Positive: Nl turgor and temperature Neuro Exam: Positive: Strength at 5/5 X4 ext, Cranial Nerves 3-12 NL Psych Exam: Positive: Oriented x 3 Vital Signs Vital Signs Date Time Temp Pulse Resp B/P (MAP) Pulse Ox O2 Delivery O2 Flow Rate FiO2 05/26/21 07:37 96.1 91 20 123/83 (96) 100 Room Air Laboratory Data Labs 24H Laboratory Tests 2 05/26/21 06:13: Total Bilirubin 3.6H, Direct Bilirubin 1.7H, Aspartate Amino Transf (AST/SGOT) 70H, Alanine Aminotransferase (ALT/SGPT) 31, Alkaline Phosphatase 166H, Total Creatine Kinase 124, Creatine Kinase MB 6.0H, Creatine Kinase MB Relative Index 4.84H, Troponin I 0.03, Total Protein 6.1L, Albumin 3.0L, Albumin/Globulin Ratio 1.0L, Lipase 727H, Ethyl Alcohol Level < 0.003 05/26/21 06:23: Immature Granulocyte % (Auto) 0.5, Neutrophils (%) (Auto) 70.5H, Lymphocytes (%) (Auto) 13.6L, Monocytes (%) (Auto) 11.6H, Eosinophils (%) (Auto) 3.3H, Basophils (%) (Auto) 0.5, Neutrophils # (Auto) 2.7, Lymphocytes # (Auto) 0.5L, Monocytes # (Auto) 0.5, Eosinophils # (Auto) 0.1, Basophils # (Auto) 0.0, Nucleated Red Blood Cells % (auto) 0.0, Immature Platelet Fraction 1.2, Prothrombin Time 21.9H, Prothromb Time International Ratio 1.86, Activated Partial Thromboplast Time 44.9H, Lactic Acid Level 1.9, Ammonia 45H 05/26/21 06:45: POC Glucose (Misc Panel) 114H, POC Sodium (Misc Panel) 138, POC Potassium (Misc Panel) 3.2L, POC Chloride (Misc Panel) 105, POC Total CO2 (Misc Panel) 16.0L, POC Blood Urea Nitrogen (Misc Panel 32H, POC Ionized Calcium (Misc Panel) 4.8, POC Creatinine (Misc Panel) 1.4H, POC Hematocrit (Misc Panel) 28.0L CBC/BMP Laboratory Tests 05/26/21 06:23 Assessment/Plan Patient is 61 years old female with past medical history of decompensated alcoholic cirrhosis of liver presented to hospital with increased abdominal distention. Patient has regular paracentesis. Patient stated that she is on the list for liver transplantation. Patient denied fever, chills, abdominal pain diarrhea or dysuria. In ER patient was found to have no leukocytosis, hemoglobin 8.3, platelet count 87, ammonia level 45 lipase 727, total bilirubin 3.6, ALT 70, ALT 31. CT showed Several small gallstones. Gross ascites. Umbilical hernia which contains ascitic fluid. Cirrhotic liver. Problems (1) Ascites due to alcoholic cirrhosis Status: Acute Problem Text: Paracentesis on Thursday Lasix IV, spironolactone p.o. (2) Pancytopenia Status: Chronic Problem Text: Secondary to decompensated liver cirrhosis No indication for blood transfusion for now Continue iron supplementation H&H every 6 hours We will check stool for occult blood, iron panel, B12 and folate (3) Cirrhosis Status: Acute Problem Text: Lactulose, rifaximin Child Braun class C, life expectancy [address] scan negative for acute pancreatitis, patient does not have abdominal pain, elevation of lipase most likely related to cirrhosis (4) Hyperammonemia Status: Chronic Problem Text: Continue lactulose I will start rifaximin (5) Hyperbilirubinemia Status: Chronic Problem Text: Secondary to liver cirrhosis Continue to monitor Plan / VTE VTE Prophylaxis Ordered?: No VTE Exclusion Pharmacological: Thrombocytopenia AYAAN KLEIN DO May 26, 2021 09:54
[2021-05-26 10:00] LABS: IRON (FE) 129 UG/DL (50-170); PERCENT SATURATION 86.6 % (13.2-45.0); TOTAL IRON BINDING CAPACITY 149 UG/DL (250-450)
[2021-05-26] MEDS ORDERED: FURO20TA2 PO (10:07)
[2021-05-26] MEDS ORDERED: CIPR500T39 PO (10:07)
[2021-05-26] MEDS ORDERED: MIDO5TA PO (10:07)
[2021-05-26] MEDS ORDERED: HOME MED LIST COMPLETE! XX SCH (10:10)
[2021-05-26 10:42] LABS: RSV AMPLIFICATION NEGATIVE (NEGATIVE)
[2021-05-26] MEDS ORDERED: CIPROFLOXACIN 500MG TABLET PO ONE (11:00)
[2021-05-26 11:45] LABS: HEMATOCRIT 26.8 % (36.0-47.0); HEMOGLOBIN 8.8 g/dl (12.0-15.5)
[2021-05-26 13:00] VITALS: BP 122/86
[2021-05-26] MEDS: rifAXIMin 550 MG TAB (XIFAXAN) PO SCH ×2 (13:02→19:47)
[2021-05-26] MEDS: FUROSEMIDE 40MG/4ML VIAL (J1940) IV SCH ×2 (13:02→19:00)
[2021-05-26] MEDS ORDERED: traZODone 50 MG TAB PO PRN (15:50)
[2021-05-26] MEDS: MIDODRINE 5 MG TAB PO SCH (16:34)
[2021-05-26] MEDS: HALOPERIDOL 5MG/ML VIAL (J1630 PER 1) IV PRN (16:34)
[2021-05-26] MEDS: SODIUM BICARBONATE 325 MG TAB PO SCH ×2 (16:34→19:47)
[2021-05-26 18:47] LABS: HEMATOCRIT 25.1 % (36.0-47.0); HEMOGLOBIN 8.1 g/dl (12.0-15.5)
[2021-05-26 21:00] VITALS: BP 100/55
[2021-05-27 00:21] LABS: HEMATOCRIT 23.4 % (36.0-47.0); HEMOGLOBIN 7.7 g/dl (12.0-15.5)
[2021-05-27] MEDS: FUROSEMIDE 40MG/4ML VIAL (J1940) IV SCH (03:01)
[2021-05-27 06:00] VITALS: BP 109/73
[2021-05-27 06:39] LABS: HEMATOCRIT 23.8 % (36.0-47.0); HEMOGLOBIN 7.6 g/dl (12.0-15.5); MEAN CORPUSCULAR HEMOGLOBIN 30.4 pg (27.0-33.0); MEAN CORPUSCULAR HGB CONC 31.9 g/dl (32.0-36.5); MEAN CORPUSCULAR VOLUME 95.2 fl (80.0-96.0); WHITE BLOOD COUNT 5.5 10^3/uL (4.0-10.0)
[2021-05-27 06:40] LABS: PLATELET COUNT, AUTOMATED 87 10^3/uL (150-450)
[2021-05-27 06:53] LABS: ALBUMIN 2.9 GM/DL (3.2-5.2); BILIRUBIN,TOTAL 2.9 MG/DL (0.2-1.0); CALCIUM LEVEL 7.8 MG/DL (8.5-10.1); CREATININE FOR GFR 1.5 MG/DL (0.55-1.30); GLOMERULAR FILTRATION RATE 37.8 (>51); MAGNESIUM LEVEL 1.8 MG/DL (1.8-2.4); POTASSIUM SERUM 3.5 MEQ/L (3.5-5.1); TOTAL PROTEIN 5.8 GM/DL (6.4-8.2)
[2021-05-27] MEDS: SPIRONOLACTONE 25 MG TAB PO SCH (08:23)
[2021-05-27] MEDS: SODIUM BICARBONATE 325 MG TAB PO SCH (08:23)
[2021-05-27] MEDS: LACTULOSE 20 GM/30 ML SYRUP UD PO SCH (08:23)
[2021-05-27] MEDS: rifAXIMin 550 MG TAB (XIFAXAN) PO SCH (08:23)
[2021-05-27] MEDS: HALOPERIDOL 5MG/ML VIAL (J1630 PER 1) IV PRN (08:23)
[2021-05-27] MEDS: MIDODRINE 5 MG TAB PO SCH (08:24)
[2021-05-27] MEDS ORDERED: PANTOPRAZOLE 40MG TAB (PROTONIX) PO SCH (09:00)
[2021-05-27] MEDS ORDERED: THIAMINE 100 MG TAB PO SCH (09:00)
[2021-05-27 11:17] LABS: VITAMIN B12 LEVEL > 2000 PG/ML (247-911)
[2021-05-27 11:18] LABS: FOLATE 11.3 NG/ML (>5.4)
[2021-05-27] MEDS ORDERED: ONDANSETRON 4 MG ORAL DISINTEGRATING TAB PO PRN (11:25)
[2021-05-27] MEDS ORDERED: BISACODYL 10 MG SUPP PR PRN (11:25)
[2021-05-27] MEDS ORDERED: LORazepam 1 MG TAB PO PRN (11:25)
[2021-05-27] MEDS ORDERED: ONDANSETRON 4MG/2ML VIAL IV PRN (11:25)
[2021-05-27] MEDS ORDERED: MORPHINE 2 MG/ML 1ML VIAL (J2270) IV PRN (11:25)
[2021-05-27] MEDS ORDERED: FLEET ENEMA PR PRN (11:25)
[2021-05-27] MEDS ORDERED: SCOPOLAMINE 1MG TRANSDERMAL PATCH TOP PRN (11:25)
[2021-05-27] MEDS ORDERED: LORazepam 2 MG/ML VIAL IV PRN (11:25)
[2021-05-27] MEDS ORDERED: HYOSCYAMINE SULFATE 0.125 MG SUBL TABLET PO PRN (11:25)
[2021-05-27] MEDS ORDERED: ATROPINE SULFATE 1% OP SOLN 2 ML BTL SL PRN (11:25)
[2021-05-27] MEDS ORDERED: ACETAMINOPHEN TAB 650MG DOSE (2X325MG) PO PRN (11:25)
[2021-05-27] MEDS ORDERED: MORPHINE 10MG/0.5ML ORAL CONCENTRATE SOLUTION U/D SL PRN (11:25)
--- NOTE | 2021-05-27 14:11 | IPNPDOC ---
Text Note Date of Service The patient was seen on 05/27/21. NOTE Subjective: Patient was confused in the morning, disoriented. I talked to her daughter who is a power of workers compensation attorney, patient was transferred to [facility] status Objective: GENERAL APPEARANCE: Confused female HEENT: icterus, plus JVD, EOMI CARDIOVASCULAR: S1S2 LUNGS: CTA ABDOMEN: soft & significant ascites MUSCULOSKELETAL: no cyanosis, no swelling INTEGUMENT: no generalized pallor NEUROLOGICAL: cranial nerve function from 2-12 intact, follows commands, speech not dysarthric Assessment and plan Patient is 61 years old female with past medical history of decompensated alcoholic cirrhosis of liver presented to hospital with increased abdominal distention. Patient has regular paracentesis. Patient stated that she is on the list for liver transplantation. Patient denied fever, chills, abdominal pain diarrhea or dysuria. In ER patient was found to have no leukocytosis, hemoglobin 8.3, platelet count 87, ammonia level 45 lipase 727, total bilirubin 3.6, ALT 70, ALT 31. CT showed Several small gallstones. Gross ascites. Umbilical hernia which contains ascitic fluid. Cirrhotic liver. On 05/27/2021 patient was transferred to [facility] status Ascites due to alcoholic cirrhosis Pancytopenia Cirrhosis Hyperammonemia Hyperbilirubinemia VS,Fishbone, I+O VS, Fishbone, I+O Laboratory Tests 05/26/21 18:22 05/27/21 00:06 05/27/21 06:13 Vital Signs Date Time Temp Pulse Resp B/P (MAP) Pulse Ox O2 Delivery O2 Flow Rate FiO2 05/27/21 06:00 98.1 87 19 109/73 (85) 100 Room Air I&O- Last 24 Hours up to 6 AM 05/27/21 05:59 Intake Total 1240 ml Output Total 350 ml Balance 890 ml AYAAN KLEIN DO May 27, 2021 14:11
[2021-05-27] MEDS ORDERED: ATIV1TAB7 PO (14:38)
--- NOTE | 2021-05-27 18:02 | DS.PDOC ---
Discharge Summary General Date of Admission May 26, 2021 at 09:28 Date of Discharge 05/27/21 Discharge Summary PROCEDURES PERFORMED DURING STAY: [None]. ADMITTING DIAGNOSES: Ascites due to alcoholic cirrhosis Pancytopenia Cirrhosis Hyperbilirubinemia Hyperammonemia DISCHARGE DIAGNOSES: Ascites due to alcoholic cirrhosis Pancytopenia Cirrhosis Hyperbilirubinemia Hyperammonemia COMPLICATIONS/CHIEF COMPLAINT: Ascites Due To Alcoholic Cirrhosis. HISTORY OF PRESENT ILLNESS: Patient is 61 years old female with past medical history of decompensated alcoholic cirrhosis of liver presented to hospital with increased abdominal distention. Patient has regular paracentesis. Patient stated that she is on the list for liver transplantation. Patient denied fever, chills, abdominal pain diarrhea or dysuria. In ER patient was found to have no leukocytosis, hemoglobin 8.3, platelet count 87, ammonia level 45 lipase 727, total bilirubin 3.6, ALT 70, ALT 31. CT showed Several small gallstones. Gross ascites. Umbilical hernia which contains ascitic fluid. Cirrhotic liver. On 05/27/2021 patient was transferred to [facility] status DISCHARGE MEDICATIONS: Please see below. ALLERGIES: Please see below. PHYSICAL EXAMINATION ON DISCHARGE: VITAL SIGNS: Please see below. GENERAL APPEARANCE: Confused female HEENT: icterus, plus JVD, EOMI CARDIOVASCULAR: S1S2 LUNGS: CTA ABDOMEN: soft & significant ascites MUSCULOSKELETAL: no cyanosis, no swelling INTEGUMENT: no generalized pallor NEUROLOGICAL: cranial nerve function from 2-12 intact, follows commands, speech not dysarthric LABORATORY DATA: Please see below. PROGNOSIS: Poor ACTIVITY: [As tolerated]. DIET: Regular DISPOSITION: 01 Home, Self-Care. DISCHARGE INSTRUCTIONS: Follow-up with hospice care DISCHARGE CONDITION: [Stable]. TIME SPENT ON DISCHARGE: 40 minutes. Vital Signs/I&Os Vital Signs Date Time Temp Pulse Resp B/P (MAP) Pulse Ox O2 Delivery O2 Flow Rate FiO2 05/27/21 06:00 98.1 87 19 109/73 (85) 100 Room Air I&O- Last 24 Hours up to 6 AM 05/27/21 06:00 Intake Total 1490 ml Output Total 350 ml Balance 1140 ml Laboratory Data Labs 24H Laboratory Tests 2 05/27/21 06:13: Nucleated Red Blood Cells % (auto) 0.0, Anion Gap 12, Glomerular Filtration Rate 37.8L, Calcium Level 7.8L, Magnesium Level 1.8, Total Bilirubin 2.9H, Aspartate Amino Transf (AST/SGOT) 69H, Alanine Aminotransferase (ALT/SGPT) 29, Alkaline Phosphatase 148H, Total Protein 5.8L, Albumin 2.9L, Albumin/Globulin Ratio 1.0L 05/27/21 13:52: Lab Scanned Report Miscellaneous Lab CBC/BMP Laboratory Tests 05/26/21 18:22 05/27/21 00:06 05/27/21 06:13 Allergies Coded Allergies: No Known Allergies (Unverified , 05/26/21) AYAAN KLEIN DO May 27, 2021 18:02
== END 2021-05-27 15:45 | disposition home or self-care (01) | DRG 280 ==
LOC: M ED 05:37 → M ED INP 09:28 → ENRESERV 10:59 → M MSPAV 12:47
PROVIDERS: ADMIT Internal Medicine; ATTEND Internal Medicine
DX: K70.31 Alcoholic cirrhosis of liver with ascites (principal); K76.7 Hepatorenal syndrome; D61.818 Other pancytopenia; K76.6 Portal hypertension; D68.9 Coagulation defect, unspecified; E72.20 Disorder of urea cycle metabolism, unspecified; E87.1 Hypo-osmolality and hyponatremia; N18.30 Chronic kidney disease, stage 3 unspecified; D69.6 Thrombocytopenia, unspecified; K42.9 Umbilical hernia without obstruction or gangrene; Z66 Do not resuscitate; F41.9 Anxiety disorder, unspecified; F32.9 Major depressive disorder, single episode, unspecified; D63.1 Anemia in chronic kidney disease; Z87.891 Personal history of nicotine dependence; Z20.822 Contact with and (suspected) exposure to COVID-19; Z79.899 Other long term (current) drug therapy